=== PATIENT | male | born 1940 | race American Indian/Alaskan Native ===

== ENCOUNTER → 2020-07-15 15:24 | Outpatient (CLI) | payer MEDICARE, OTHER, SELFPAY | PROVIDERS: Referring Provider Otolaryngology Otolaryngology/Facial Plastic Surgery; Visit Provider Otolaryngology Otolaryngology/Facial Plastic Surgery | DX: H92.10 Otorrhea, unspecified ear (principal) | CPT/HCPCS: 87070; 87075; 87077; 87186; 87205 ==

== ENCOUNTER 2021-03-18 15:56 | Inpatient (IN) | payer MEDICARE, OTHER, SELFPAY ==
[2021-03-18 15:57] VITALS: BP 197/94; PULSE 72; RESP 18; TEMP 35.5; O2SAT 97; BMI 34.9
--- NOTE | 2021-03-18 16:13 | EKG12_ITS ---
Test Reason : Blood Pressure : / mmHG Vent. Rate : 073 BPM Atrial Rate : 073 BPM P-R Int : 236 ms QRS Dur : 080 ms QT Int : 404 ms P-R-T Axes : 033 001 031 degrees QTc Int : 445 ms Sinus rhythm with 1st degree A-V block Inferior infarct , age undetermined Abnormal ECG Confirmed by CHRISTAL MATHEWS, BETTY ([id number]), photo editor YANELIS MELTON ([id number]) on 03/21/2021 8:03:58 AM Referred By: AMY Confirmed By:WINSTON SIEGEL MD
[2021-03-18] MEDS: Aspirin 81 MG TAB.CHEW 324 MG PO (16:27)
--- NOTE | 2021-03-18 16:34 | ED.DCSUM_ITS ---
History of Present Illness Chief Complaint: Chest Pain Informant: Patient Onset: Days Activity at onset: Light Activity Timing: Intermittent Quality: Heaviness, Tightness Location: Substernal Current Severity: Gone Maximum Severity: 7/10 Worsened By: Exertion Relieved By: Rest Associated Symptoms: Dyspnea. Negative for: Nausea, Vomiting, Diaphoresis, Cough, Fever, Lightheadedness, Acid Reflux, Palpitations Narrative: Since an 81-year-old male who states he went on a walk this past Wednesday. After walking 50 feet he developed substernal chest discomfort with dyspnea. The discomfort resolved after resting for 5 minutes. On Wednesday he went on a walk. Able to walk farther however he developed chest tightness with dyspnea and resolved after 5 minutes. He denied nausea, vomiting or diaphoresis. He denied radiation. His risk factors are prediabetes , benign essential hypertension. He his physician yesterday who ordered an EKG, troponin and high-sensitivity CRP. The troponin was normal. The high-sensitivity CRP was positive, 7. Past surgical history remarkable for prostate for BPH, cataract, cholecystectomy and TNA. Patient is presently pain-free. And has not walked since his last episode of chest pain on Wednesday. Prior Similar Symptoms: Yes, With Prior Angina Recent Illness/Hospitalization: Yes - PCP yesterday CVD Risk Factors: Hypertension, Diabetes PE Risk Factors: Negative for: Recent Travel/Surgery, Recenet Immobilization, Prior DVT or PE, Cancer, OCP + Smoking + >/=35 TAD Risk Factors: Hypertension. Negative for: Marfan's Syndrome, Family History - Past Medical History (1) History of hypertension Status: Acute (2) Prediabetes Status: Acute Past Medical History - Allergies and Home Meds Allergies/Adverse Reactions: Allergies No Known Allergies Allergy (Verified 03/18/21 15:59) Primary Care Physician: [facility],Out of [NON-STAFF] - Prior records reviewed: Yes - This notes Surgical History: - - Commended in the HPI Lives: Alone Smoking Status: Former smoker Alcohol: None Drugs: None Review of Systems General: Denies: Chills, Fever, Sweats Eyes: Denies: Visual changes - bilaterally, Diplopia ENT: Denies: Rhinorrhea, Sore throat Cardiovascular: Reports: Chest pain. Denies: Palpitations Respiratory: Reports: Dyspnea, Dyspnea on exertion. Denies: Cough Gastrointestinal: Denies: Abdominal pain, Nausea, Vomiting, Diarrhea, Melena, Hematochezia Genitourinary: Denies: Dysuria, Hematuria, Frequency Musculoskeletal: Denies: Back pain, Extremity Pain Skin: Denies: Rash, Wounds Neurological: Denies: Headache, Weakness, Numbness Endocrine: Denies: Polyuria, Polydipsia Hematologic: Denies: Easy bruising, Easy bleeding Physical Exam Vital Signs/Narrative: Vital Signs Temp Pulse Resp BP Pulse Ox 03/18/21 15:57 95.9 F L 72 18 197/94 H 97 Inital Vital Signs reviewed: Yes General: Well nourished, Well developed, No Acute Distress Head: Normocephalic, Atraumatic Eyes: Perrl, EOMI ENT: Moist mucous membranes, No rhinorrhea Neck: Supple, Nontender Cardiovascular: Regular rate, Regular rhythm, No murmurs, Normal S1, Normal S2 Respiratory: No distress, CTA bilaterally, Chest nontender Abdomen: Soft, Nontender, Nondistended, Normal bowel sounds Back: Nontender, Normal Inspection Extremities: Nontender, No edema Skin: Normal color, No rash, No Trauma. Negative for: Cyanosis, Diaphoresis, Jaundice Neurological: Alert, Oriented x3, Cranial nerves II-XII grossly intact, Normal Strength, Normal Sensation Psychological: Normal affect, Normal Mood Diagnostic/Tx/Re-eval Chest X-Ray - ED: 1 View, Read by ED Physician, Unchanged, Normal, Heart, Lungs, Mediastinum, Bony Structures, No Acute Disease 03/18/21 16:45 Chest 1 View (Portable) [RAD] Stat Impressions Chest X-Ray 03/18/21 16:45 IMPRESSION: Normal x-ray examination of the chest. Electronically Signed: Joseph Lee MD at 17:01 EDT Tel , Service support , 03/18/21 16:45 Chest 1 View (Portable) [RAD] Stat Laboratory Results 03/18/21 03/18/21 16:50 16:50 WBC 9.4 RBC 4.78 Hgb 13.9 Hct 45.5 MCV 95.2 H MCH 29.1 MCHC 30.5 L RDW Std Deviation 46.3 H RDW Coeff of Micheal 13.1 Plt Count 198 MPV 9.9 Immature Gran % (Auto) 0.400 Neut % (Auto) 67.8 Lymph % (Auto) 22.2 [place] % (Auto) 6.8 Eos % (Auto) 2.2 Baso % (Auto) 0.6 Absolute Neuts (auto) 6.4 Absolute Lymphs (auto) 2.09 Nucleated RBC % 0 Sodium 139 Potassium 3.4 L Chloride 104 Carbon Dioxide 27.0 Anion Gap 8 BUN 21 H Creatinine 0.95 Estim Creat Clear Calc 62.97 Est GFR (MDRD) Af Amer 98 Est GFR (MDRD) Non-Af 81 BUN/Creatinine Ratio 22.0 H Glucose 95 Calcium 8.5 Troponin I < 0.015 Blood work is remarkable potassium of 3.4. Troponin is normal. - EKG Initial EKG Interpretation: Sinus Rhythm - Sinus rhythm with a ventricular rate of 73 and a first-degree AV block. [place] interval is 236 ms. QS duration 80 ms. QT duration 404 ms. Computer is reading inferior infarct of undetermined age. There may be a slight Q-wave in 2 and aVF. Treatment: Aspirin, Lovenox SQ, - - 300 mg of Plavix - Medical Decision Making Patient has classic angina per gold criteria. Case discussed with Dr. Tolu Franz on-call for cardiology. Since patient has no risk factors for GI bleed or contraindication to Lovenox and or Plavix both were administered. Plan is to admit and cardiac catheterization. Once labs are back will contact hospitalist. Patient's heart score is 6 Critical care time (excluding procedures): 30-74 minutes - Total time 31 minutes which included obtaining history, physical exam, documentation, discussion with patient's primary care physician, discussion with adjunct instructor in economics and hospitalist for admission. Initiation of treatment for classic angina ED Disposition - Plan for ED Patient: Disposition: Acute Care Hospital [facility] Diagnosis: Unstable angina, History of hypertension, Prediabetes Referrals: [facility] Doctor,Out of [NON-STAFF] -
--- NOTE | 2021-03-18 16:45 | RAD_ITS ---
STUDY: X-RAY CHEST REASON FOR EXAM: Male, 81 years old. chest pain TECHNIQUE: Single AP portable view of the chest. COMPARISON: None. FINDINGS: The lungs are clear and expanded. There is no demonstrated pleural abnormality. Normal size heart. Normal mediastinum and alejandro. Normal visualized pulmonary arteries. Normal visualized aortic arch and descending thoracic aorta. Normal visualized thoracic spine. Normal visualized ribs, clavicles, and shoulders. There is no demonstrated abnormality of the visualized soft tissue structures of the upper abdomen. RAD/Chest 1 View (Portable) IMPRESSION: Normal x-ray examination of the chest. Electronically Signed: Joseph Lee MD at 17:01 EDT Tel , Service support ,
[2021-03-18 17:00] LABS: Absolute Lymphocyte Count 2.09 X10^3/uL (0.83-4.51); Absolute Neutrophil Count 6.4 X10^3/uL (2.0-7.7); Basophil# 0.06 X10^3/uL; Basophil% 0.6 % (0-1); Eosinophil# 0.21 X10^3/uL; Eosinophils% 2.2 % (0-5); Hematocrit 45.5 % (40-54); Hemoglobin 13.9 g/dL (13.0-16.5); Lymphocyte # 2.09 X10^3/ul (0.83-4.51); Lymphocyte % 22.2 % (19-41); Mean Corp Hgb Conc 30.5 g/dL (32-36); Mean Corpuscular Hgb 29.1 pg (27.0-32.0); Mean Corpuscular Volume 95.2 fL (80-94); Mean Platelet Vol. 9.9 fl (6.2-12.0); Monocyte# 0.64 X10^3/uL; Monocyte% 6.8 % (0-10); NRBC Flagged by Analyzer 0 % (0-5); Neutrophil # 6.38 X10^3/uL (2.7-7.7); Neutrophil % 67.8 % (47-70); Platelet Count 198 K/mm3 (150-450); RBC Distribution Width CV 13.1 % (11.6-14.6); RBC Distribution Width SD 46.3 fl (35.1-43.9); Red Blood Count 4.78 M/mm3 (4.6-6.2); White Blood Count 9.4 K/mm3 (4.4-11.0)
[2021-03-18 17:17] LABS: Anion Gap 8 (5-15); BUN 21 mg/dL (7-18); Calcium,Total 8.5 mg/dL (8.5-10.1); Chloride 104 mmol/L (98-107); Creatinine, Serum 0.95 mg/dL (0.70-1.30); EST Glomerular Filtration Rate 81 mL/min (>60); Est Glom Filt Rate - Afr Amer 98 mL/min (>60); Estimated Creatinine Clearance 62.97 ml/min; Glucose 95 mg/dL (74-106); Potassium 3.4 mmol/L (3.5-5.1); Sodium Level 139 mmol/L (136-145)
[2021-03-18] MEDS: Enoxaparin 120 MG/0.8 ML Syringe SC (17:19)
[2021-03-18] MEDS: Clopidogrel Bisulfate 300 MG Tablet PO (17:20)
--- NOTE | 2021-03-18 18:08 | HP.PCM_ITS ---
<Anderson Rausch - Last Filed: 03/18/21 18:08> Problem List (1) Chest pain Status: Acute (2) Celiac disease Status: Chronic (3) Diverticulosis Status: Chronic (4) History of hypertension Status: Chronic (5) Prediabetes Status: Chronic (6) Unstable angina Status: Chronic History of Present Illness Date of Admission: 03/18/21 Chief Complaint: Chest pain in the setting of high sensitivty CRP (7+) Patient is an 81-year-old male who presents to the ED at [facility] on 03/18/2021 with a chief complaint of chest pain. Patient also had labs recently drawn at his primary care office, which revealed a high- sensitivity CRP of 7. Patient was directed by his primary care physician to report to the emergency department immediately for cardiac evaluation. Patient reports that this past Wednesday he began a walking regimen at the request of his primary care physician. Patient states that after he began his walk he developed chest tightness with shortness of breath that resolved after 5 minutes of resting. Patient reports this as his last episode of chest pain, as he has not tried to exert himself much since. Past medical history is significant for unstable angina, hypertension, prediabetes, celiac disease and diverticulosis. Patient was evaluated by his primary care physician yesterday who ordered an EKG, troponins and high sensitivity CRP. Troponin was normal however high- sensitivity CRP was positive at 7. Patient denies any chest pain on admission or any other symptoms to include diaphoresis, palpitations, shortness of breath, orthopnea, paroxysmal nocturnal dyspnea, N/V/D, fever, chills, any recent illnesses or known sick contacts. CBC unremarkable. Chemistry is significant for hypokalemia at 3.4, troponins not elevated. EKG in the ED revealed normal sinus rhythm and a first-degree AV block. Heart score in the ED was 6. Case was discussed with Dr. Franz on-call for cardiology, who agreed to see the patient for cardiac catheterization. Patient was treated in the ED with aspirin, Lovenox and 30 mg of Plavix. Past Medical History Past Medical History (Chronic Problems): Chronic Problems History of hypertension (Chronic) Prediabetes (Chronic) Unstable angina (Chronic) Celiac disease (Chronic) Diverticulosis (Chronic) Allergies No Known Allergies Allergy (Verified 03/18/21 15:59) Home Medications: Ambulatory Orders Medication Instructions Recorded Amlodipine [Norvasc] 5 mg PO DAILY 03/18/21 Aspirin E.C. [Ecotrin] 81 mg PO DAILY@0800 03/18/21 Cholecalciferol (Vitamin D3) 4,000 unit PO DAILY 03/18/21 [Vitamin D3] Hydrochlorothiazide [Hctz] 25 mg PO QODAY 03/18/21 Metoprolol Succinate 25 mg PO DAILY 03/18/21 Valsartan [Diovan] 320 mg PO DAILY 03/18/21 Vit C/E/Zn/Coppr/Lutein/Zeaxan 1 cap PO BID 03/18/21 [Preservision Areds 2 Softgel] Surgical History: no surgical history, - - Commended in the HPI Psychiatric History: No pertinent psych hx Lives: Alone Smoking Status: Former smoker - Has not smoked in 50 years Tobacco Use: Pipe Alcohol: Occasional - Occasional beer and liquor Drugs: None - *Family History Maternal History Items: No pertinent history - Patient is unaware of any maternal medical history Paternal History Items: No pertinent history - Patient is unaware of any paternal medical history Review of Systems Constitutional: Denies: Chills, Fever, Weight Change HEENT: Denies: Head Aches, Sinus Congestion, Sinus Drainage Cardiovascular: Reports: Chest Pain Respiratory: Reports: Shortness of breath upon exertion Gastrointestinal: Denies: Abdominal Pain, Nausea, Vomiting Genitourinary: Denies: Dysuria Musculoskeletal: Denies: Joint Pain, Joint Tenderness Skin: Denies: Rash, Wounds Neurological: Denies: Numbness, Tingling, Focal weakness Psychiatric: Denies: Anxiety, Depression, Homicidal Ideations, Suicidal Ideations Hematologic/ Lymphatic: Denies: Easy Bruising, Easy Bleeding VTE Information - Inpt Only VTE Present on Admission: No Subjective: Patient is an 81-year-old male comfortably resting in bed, alert and oriented x3. Patient denies any active chest pain or shortness of breath. Objective: Clinical Impression(s) from Imaging Studies Chest X-Ray 03/18/21 16:45 IMPRESSION: Normal x-ray examination of the chest. Electronically Signed: Joseph Lee MD at 17:01 EDT Tel , Service support , - Physical Exam Vitals/I&O's: Vital Signs Temp Pulse Resp BP Pulse Ox 95.9 F L 72 18 197/94 H 97 03/18/21 15:57 03/18/21 15:57 03/18/21 15:57 03/18/21 15:57 03/18/21 15:57 Oxygen Delivery Method Room Air Weight: 244 lb Body Mass Index (BMI) 34.9 General: Alert, Oriented x3, Cooperative HEENT: Atraumatic, PERRLA, EOMI, Normocephalic Neck: Supple, No JVD, Negative Carotid Bruits Lungs: Clear to auscultation, Normal air movement Cardiovascular: Regular rate, No murmurs Abdomen: Bowel Sounds Present, Soft, Non Tender Extremities: No edema, Capillary Refill Less than 3 Seconds Skin: No rashes, No breakdown Musculoskeletal: No Tenderness to Palpation of Joints or Extremities Neurological: Cranial nerves II-XII grossly intact Laboratory Results 03/18/21 16:50: WBC 9.4, RBC 4.78, Hgb 13.9, Hct 45.5, MCV 95.2 H, MCH 29.1, MCHC 30.5 L, RDW Std Deviation 46.3 H, RDW Coeff of Micheal 13.1, Plt Count 198, MPV 9.9, Immature Gran % (Auto) 0.400, Neut % (Auto) 67.8, Lymph % (Auto) 22.2, [place] % (Auto) 6.8, Eos % (Auto) 2.2, Baso % (Auto) 0.6, Absolute Neuts (auto) 6.4, Absolute Lymphs (auto) 2.09, Nucleated RBC % 0 03/18/21 16:50: Sodium 139, Potassium 3.4 L, Chloride 104, Carbon Dioxide 27.0, Anion Gap 8, BUN 21 H, Creatinine 0.95, Estim Creat Clear Calc 62.97, Est GFR (MDRD) Af Amer 98, Est GFR (MDRD) Non-Af 81, BUN/Creatinine Ratio 22.0 H, Glucose 95, Calcium 8.5, Troponin I < 0.015 Assessment/Plan All Active Problems Chest pain (Acute) Patient is an 81-year-old male who presents to the ED at [facility] on 03/18/2021 with a chief complaint of chest pain. Patient's chest pain began last weekend when he began a walking regimen at the request of his primary care physician. Patient has subsequently had the chest pain worked up by his primary care physician who found an elevated high-sensitivity CRP at 7. Patient was urged to report to the ED immediately by his primary care physician. Patient currently denies any chest pain, shortness of breath, palpitations, diaphoresis, fever, chills, N/V/D. EKG in the ED revealed normal sinus rhythm at a rate of 73 with a first-degree AV block. CBC unremarkable. Chemistry is significant for hypokalemia at 3.4, troponin not elevated. Heart score in the ED was 6. This case has already been discussed with Dr. Franz who agreed to see the patient in light of his symptoms and elevated high-sensitivity CRP. Patient will be admitted to the PCU for cardiac monitoring and for cardiac catheterization per Dr. Franz. 1) Unspecified chest pain EKG unremarkable as above. Troponins not elevated. High-sensitivity CRP drawn by primary care provider was positive, 7. Plan; admit to PCU, cardiac monitoring, cardiac catheterization on 03/19/2021 per cardiology, lipid profile ordered. Continue home amlodipine, aspirin, metoprolol. 2) Hypokalemia 3.4. Plan; K-Dur 40 mEq p.o. x1, BMP in a.m. 3) Hypertension 197/94, not within goal. Plan; hydralazine as needed. Continue home regimen of hydrochlorothiazide, valsartan and amlodipine. 4) Prediabetes Managing outpatient with primary care provider. Plan; continue outpatient management. 5) Diverticulosis No evidence of acute bleed or GI complaints on admission. Managing outpatient with primary care provider. Plan; continue outpatient management. 6) Celiac disease Gluten-free diet initiated at admission. Managing outpatient with primary care provider. Plan; continue outpatient management. CODE STATUS: DNR CCA, no intubation Patient seen by Anderson Rausch PA-C, under the supervision of Dr. Rosenberg. <Adelia Rosenberg - Last Filed: 03/18/21 18:54> History of Present Illness The patient is a 81 year old M [] Past Medical History Allergies No Known Allergies Allergy (Verified 03/18/21 15:59) - Physical Exam Vitals/I&O's: Vital Signs Temp Pulse Resp BP Pulse Ox 98.2 F 62 10 L 180/78 H 97 03/18/21 18:14 03/18/21 18:14 03/18/21 18:14 03/18/21 18:14 03/18/21 18:14 Oxygen Delivery Method Room Air Weight: 242 lb 8.136 oz Body Mass Index (BMI) 34.7 Laboratory Results 03/18/21 16:50: WBC 9.4, RBC 4.78, Hgb 13.9, Hct 45.5, MCV 95.2 H, MCH 29.1, MCHC 30.5 L, RDW Std Deviation 46.3 H, RDW Coeff of Micheal 13.1, Plt Count 198, MPV 9.9, Immature Gran % (Auto) 0.400, Neut % (Auto) 67.8, Lymph % (Auto) 22.2, [place] % (Auto) 6.8, Eos % (Auto) 2.2, Baso % (Auto) 0.6, Absolute Neuts (auto) 6.4, Absolute Lymphs (auto) 2.09, Nucleated RBC % 0 03/18/21 16:50: Sodium 139, Potassium 3.4 L, Chloride 104, Carbon Dioxide 27.0, Anion Gap 8, BUN 21 H, Creatinine 0.95, Estim Creat Clear Calc 62.97, Est GFR (MDRD) Af Amer 98, Est GFR (MDRD) Non-Af 81, BUN/Creatinine Ratio 22.0 H, Glucose 95, Calcium 8.5, Troponin I < 0.015 Assessment/Plan Patient seen by Anderson Rausch PA-C under my supervision Patient is an 81-year-old male who was admitted via the ED with a complaint of chest pain. Chest pain was exertional and started on the weekend prior to admission when he started a walking regimen per his PCPs request in order to try to lose weight. Chest pain got better with rest. He saw his PCP and he had labs done. Troponins were negative but high-sensitivity C-reactive protein was elevated. He was therefore advised to come into the ED. At time of review, he had no symptoms and had no chest pain. EKG showed normal sinus rhythm with first-degree AV block. Chemistry was significant for potassium of 3.4 and troponin was within normal limits. His analysis lead was contacted by ED and plan is to have cardiac cath tomorrow. O/E: Vital Signs Temp Pulse Resp BP Pulse Ox 98.2 F 62 10 L 180/78 H 97 03/18/21 18:14 03/18/21 18:14 03/18/21 18:14 03/18/21 18:14 03/18/21 18:14 General: Alert, Oriented x3, Cooperative HEENT: Atraumatic, PERRLA, EOMI, Normocephalic Neck: Supple, No JVD, Negative Carotid Bruits Lungs: Clear to auscultation, Normal air movement Cardiovascular: Regular rate, No murmurs, normal S1 and S2 Abdomen: Bowel Sounds Present, Soft, Non Tender Extremities: No edema, Capillary Refill Less than 3 Seconds Skin: No rashes, No breakdown Musculoskeletal: No Tenderness to Palpation of Joints or Extremities Neurological: Cranial nerves II-XII grossly intact, omayra 5/5 in all extremities Plan is to admit to be managed for angina. Consult cardiology. Keep n.p.o. past midnight. Patient received aspirin and Plavix in the ED. For cardiac cath tomorrow. Calcium was also low at 3.4. Will replace. Rest as per Anderson Rausch PA-C's notes which I reviewed and endorsed. CODE STATUS: Full code * Patient counseled extensively about different types of CODE STATUS including full code, DNR CCA and DNR CCA. Patient stated that he had a DO NOT RESUSCITATE order. I tried to clarify what type of DO NOT RESUSCITATE it was. Patient stated he did not know there were different types of DO NOT RESUSCITATE. I therefore explained to patient the difference between DNR CC and DNR CCA. Patient elects to be full code. Total ewps-or-[id number] time 16 minutes. Rest as per Anderson Rausch PA-C's note, which I have reviewed and endorsed. OBSV E&M: 89939 Initial observation care L2 Procedures: 91722 Advncd Care Plan 30 Min
[2021-03-18 18:14] VITALS: BP 180/78; PULSE 62; RESP 10; TEMP 36.8; O2SAT 97
[2021-03-18 18:43] VITALS: BMI 34.7
[2021-03-18 18:48] VITALS: BMI 34.8
--- NOTE | 2021-03-18 18:58 | EKG12_ITS ---
Test Reason : POST PCI Blood Pressure : / mmHG Vent. Rate : 067 BPM Atrial Rate : 067 BPM P-R Int : 248 ms QRS Dur : 068 ms QT Int : 424 ms P-R-T Axes : 053 014 029 degrees QTc Int : 448 ms Sinus rhythm with 1st degree A-V block with occasional Premature ventricular complexes Otherwise normal ECG When compared with ECG of 19-MAR-2021 05:29, MANUAL COMPARISON REQUIRED, DATA IS UNCONFIRMED Confirmed by CHRISTAL MATHEWS, BETTY ([id number]), photography editor YANELIS MELTON ([id number]) on 03/21/2021 8:28:27 AM Referred By: BRENT Confirmed By:WINSTON SIEGEL MD
[2021-03-18 19:00] VITALS: BP 191/81; PULSE 68; RESP 18; TEMP 36.8; O2SAT 99
[2021-03-18 19:02] VITALS: O2SAT 98
[2021-03-18 19:38] VITALS: PULSE 69
--- NOTE | 2021-03-18 21:08 | ECHOD_ITS ---
Reason For Study: Chest pain Procedure This was a 2D Doppler, Color Flow transthoracic echocardiogram. The study was technically difficult. Contrast injection was performed. Exam performed portable in patient room. Left Ventricle Normal LV size. Moderate concentric left ventricular hypertrophy. Left ventricular systolic function is normal. The estimated ejection fraction is 65 %. No evidence for diastolic dysfunction. No regional wall motion abnormalities noted. Right Ventricle Normal RV size. Normal systolic function. Atria The left atrium is mildly enlarged. The right atrium is mildly enlarged. No doppler evidence for ASD. Mitral Valve There is no mitral annular calcification. Normal mitral valve. Mild (1+) mitral valve insufficiency. Tricuspid Valve Normal tricuspid valve. Trivial tricuspid valve insufficiency. Unable to estimate RV systolic pressure/pulmonary artery pressure due to technically difficult study. Aortic Valve Trisinus/trileaflet aortic valve. Mild focal aortic valve calcification. Pulmonic Valve The pulmonic valve is not well visualized. Great Vessels Normal sized aortic root. Pericardium/Pleural No pericardial effusion. Epicardial fat. Medication Diluted definity 5ml given slow IV push to enhance endocardial definition. MMode/2D Measurements & Calculations LVIDd: 3.8 cm IVSd: 1.4 cm Ao root diam: 3.5 cm LVIDs: 1.8 cm LVPWd: 1.4 cm FS: 53.5 % LAV(MOD-bp): 56.9 ml LA A4 area: 19.1 cm2 LA dimension(2D): 4.4 cm LAV(MOD-bp) Indexed: 25.1 ml/m2 LAV(MOD-sp2): 59.3 ml LAV(MOD-sp4): 51.4 ml RA A4 area: 22.2 cm2 Doppler Measurements & Calculations MV E max zhou: 47.4 cm/sec Lat Peak E' Zhou: 6.6 cm/sec Med Peak E' Zhou: 6.9 cm/sec MV A max zhou: 87.0 cm/sec E/E' lat: 7.2 E/E' med: 6.9 MV E/A: 0.55 Ao V2 max: 118.2 cm/sec LV V1 max: 93.6 cm/sec Ao max P.6 mmHg LV V1 max P.5 mmHg ECHO/Echo Complete W/ Contrast Interpretation Summary The study was technically difficult. Contrast injection was performed. Left ventricular systolic function is normal. The estimated ejection fraction is 65 %. Moderate concentric left ventricular hypertrophy. The left atrium is mildly enlarged. The right atrium is mildly enlarged. Mild (1+) mitral valve insufficiency. Trivial tricuspid valve insufficiency. Mild focal aortic valve calcification. Epicardial fat. Unable to estimate RV systolic pressure/pulmonary artery pressure due to techni talon difficult study. No evidence for diastolic dysfunction. Ordering Physician: Tolu Franz Performed By: Edward Sim RCS
--- NOTE | 2021-03-18 21:10 | CON.PCM_ITS ---
Problem List (1) Unstable angina Status: Chronic (2) History of hypertension Status: Chronic (3) Prediabetes Status: Chronic Reason for Consult Date of Consultation: 03/18/21 History of Present Illness: The patient is a 81 year oldfel-fwgw-hfw white male who presents for evaluation of unstable angina superimposed upon hypertension and prediabetes . The patient follows with his primary care physician in the [place], [place] area. He states he has been in contact with him with respect to concerns of exertional chest discomfort which includes a centralized chest tightness when he is out casually walking. He states he will have to stop and rest to have his discomfort relieved. He will start walking again and his discomfort will return. He states this has been progressing recently and becoming more prominent. He can also feel somewhat short of breath and dyspneic with this. He has not had ongoing orthopnea or PND or peripheral pitting edema. There is been no near syncope or syncope. He states he had a follow-up visit with his physician yesterday. He notes an ECG was obtained. He does not believe there were any acute changes. However he received a call from his physician's office today instructing him to report to the emergency department for further evaluation and care including consideration for diagnostic cardiac catheterization. He states he has never undergone cardiovascular studies in the past with the exception of a remote exercise tolerance test which was considered negative. [] Past Medical History Allergies/Adverse Reactions: Allergies gluten Adverse Reaction (Verified 03/18/21 19:07) upset stomach/diarrhea lactose Adverse Reaction (Verified 03/18/21 19:07) upset stomach/diarrhea Home Medications: Ambulatory Orders Medication Instructions Recorded Amlodipine [Norvasc] 5 mg PO DAILY 03/18/21 Aspirin E.C. [Ecotrin] 81 mg PO DAILY@0800 03/18/21 Cholecalciferol (Vitamin D3) 4,000 unit PO DAILY 03/18/21 [Vitamin D3] Hydrochlorothiazide [Hctz] 25 mg PO QODAY 03/18/21 Metoprolol Succinate 25 mg PO DAILY 03/18/21 Valsartan [Diovan] 320 mg PO DAILY 03/18/21 Vit C/E/Zn/Coppr/Lutein/Zeaxan 1 cap PO BID 03/18/21 [Preservision Areds 2 Softgel] Past Medical History (Chronic Problems): Chronic Problems History of hypertension (Chronic) Prediabetes (Chronic) Unstable angina (Chronic) Celiac disease (Chronic) Diverticulosis (Chronic) Surgical History: no surgical history, - - Commended in the HPI Psychiatric History: No pertinent psych hx - *Family History Maternal History Items: No pertinent history - Patient is unaware of any maternal medical history Paternal History Items: No pertinent history - Patient is unaware of any paternal medical history Lives: Alone Smoking Status: Former smoker Tobacco Use: Pipe Alcohol: Occasional - Occasional beer and liquor Drugs: None Review of Systems - Review of Systems General: Denies: Fever, Night Sweats, Fatigue Cardiovascular: Reports: Chest Discomfort, Chest Discomfort with Exertion, Shortness of Breath, Shortness of Breath at Rest. Denies: Orthopnea, PND, Peripheral Edema, Palpitations, Lightheadedness, Dizziness, Near Syncope, Syncope Respiratory: Reports: Shortness of Breath. Denies: Cough, Sputum Production, Hemoptysis Gastrointestinal: Denies: Hematemesis, Hematochezia, Melena Genitourinary: Denies: Dysuria, Hematuria Skin: Denies: Rash Subjectve: This is a pleasant 81-year-old white male who appears to be resting reasonably comfortably at the moment in no acute distress. Objective: Vital Signs Temp Pulse Resp BP Pulse Ox 98.3 F 69 18 191/81 H 98 03/18/21 19:00 03/18/21 19:38 03/18/21 19:00 03/18/21 19:00 03/18/21 19:02 Oxygen Delivery Method Room Air Weight: 242 lb 8.136 oz Body Mass Index (BMI) 34.7 General: Awake, Alert, Oriented x 3, Cooperative, No Acute Distress HEENT: Atraumatic, Normocephalic, PERRL, EOMI, Sclera Non Icteric Neck: Supple, Good ROM, No JVD Lungs: Clear to auscultation Cardiovascular: Regular Rhythm, Normal S1, Normal S2 Vascular: No Carotid Bruits, Normal Femoral Pulses, Normal Radial Pulses Abdomen: Bowel Sounds Present, Soft, Non Tender Extremities: No edema Neurological: No Focal Motor or Sensory Deficit Psych/Mental Status: Appropriate 03/18/21 16:50: WBC 9.4, RBC 4.78, Hgb 13.9, Hct 45.5, MCV 95.2 H, MCH 29.1, MCHC 30.5 L, Plt Count 198, MPV 9.9, Immature Gran % (Auto) 0.400, Neut % (Auto) 67.8, Lymph % (Auto) 22.2, Morehouse % (Auto) 6.8, Eos % (Auto) 2.2, Baso % (Auto) 0.6, Absolute Neuts (auto) 6.4, Nucleated RBC % 0 03/18/21 16:50: Sodium 139, Potassium 3.4 L, Chloride 104, Carbon Dioxide 27.0, Anion Gap 8, BUN 21 H, Creatinine 0.95, Est GFR (MDRD) Af Amer 98, Est GFR (MDRD) Non-Af 81, BUN/Creatinine Ratio 22.0 H, Glucose 95, Calcium 8.5, Troponin I < 0.015 03/18/21 19:23: Troponin I < 0.015 Rhythm: Sinus rhythm EKG: Sinus rhythm; poor R wave progression; in for MO of indeterminate age cannot be excluded CXR: IMPRESSION: Normal x-ray examination of the chest. Electronically Signed: Joseph Lee MD at 17:01 EDT Assessment/Plan 1. Unstable angina The patient presents with symptoms concerning for accelerating/unstable angina. At the moment he appears to be resting comfortably. His initial cardiac enzyme is negative. His initial ECG demonstrates no acute ECG changes. At the present time he will continue medical management as deemed appropriate. Based upon his symptoms which appear to be accelerating with very minimal activity such as casual walking he will be referred for further evaluation with diagnostic cardiac catheterization. The procedure and risks were discussed with him. He was agreeable to this approach. 2. Hypertension His blood pressure will be followed and his medications can be adjusted as needed. 3. Prediabetes He will continue evaluation care per internal medicine. This note was generated using a voice recognition system and there may be incorrect words, spelling or punctuation that were not noted when reviewing the office note prior to saving. Procedure Criteria Procedure Type: Elective COVID Risk Discussion: The surgeon/proceduralist and patient have discussed in detail the risk of exposure to and/or potential harm posed by the COVID-19 virus with having a surgery/procedure at this time versus the risk of delaying the surgery/procedure. It is not possible to know either the risk of delaying the surgery or procedure or chance of getting an infection with perfect accuracy, but a joint decision was made between the patient and the surgeon/proceduralist to proceed at this time with the scheduled surgery/procedure as indicated on the consent form.
[2021-03-18 22:36] VITALS: BP 125/77; PULSE 66; RESP 17; TEMP 36.6; O2SAT 96
[2021-03-18] MEDS: Multivitamin (Healthy Eyes) Capsule 1 CAP PO (22:39)
[2021-03-18] MEDS: Potassium Chloride Oral Tablet 20 MEQ 40 MEQ PO (22:39)
[2021-03-18] MEDS: 0.9% Saline Lock 10 ML Syringe IV (23:00)
[2021-03-18] MEDS: DiphenhydrAMINE 50 MG/ML Syringe 25 MG IV (23:00)
[2021-03-19] VITALS (14 sets, daily range): BP systolic 143–184; BP diastolic 65–128; PULSE 63–74; RESP 14–22; TEMP 36.4–36.7; O2SAT 96–98
--- NOTE | 2021-03-19 05:38 | NURSING ---
Pt stated he became itchy after CHG wipe down for heart cath prep on 03/18/21. This RN notified Indy Escamilla at 2210 on 03/18/21. Pt was ordered a 1 time dose of IV Benadryl. RN gave benadryl. This am pt refused second CHG wipe down due to previous itching. quality assurance qa lab technician to be notified in report.
--- NOTE | 2021-03-19 05:55 | EKG12_ITS ---
Test Reason : AM EKG Blood Pressure : / mmHG Vent. Rate : 066 BPM Atrial Rate : 066 BPM P-R Int : 244 ms QRS Dur : 082 ms QT Int : 428 ms P-R-T Axes : 051 014 049 degrees QTc Int : 448 ms Sinus rhythm with 1st degree A-V block Otherwise normal ECG When compared with ECG of 18-MAR-2021 19:01, MANUAL COMPARISON REQUIRED, DATA IS UNCONFIRMED Confirmed by CHRISTAL MATHEWS, BETTY ([id number]), offline editor YANELIS MELTON ([id number]) on 03/21/2021 8:28:39 AM Referred By: BRENT Confirmed By:WINSTON SIEGEL MD
[2021-03-19] MEDS: Clopidogrel Bisulfate 75 MG Tablet PO (06:11)
[2021-03-19] MEDS: Aspirin E.C. 81 MG Tablet PO (06:11)
[2021-03-19] MEDS: Metoprolol(XL)Succ 25 MG Tablet PO (06:11)
[2021-03-19] MEDS: amLODIPine 5 MG Tablet PO (06:12)
[2021-03-19 07:45] LABS: Hematocrit 44.9 % (40-54); Hemoglobin 14.3 g/dL (13.0-16.5); Mean Corp Hgb Conc 31.8 g/dL (32-36); Mean Corpuscular Hgb 29.1 pg (27.0-32.0); Mean Corpuscular Volume 91.3 fL (80-94); Mean Platelet Vol. 10.2 fl (6.2-12.0); Platelet Count 237 K/mm3 (150-450); RBC Distribution Width CV 12.9 % (11.6-14.6); RBC Distribution Width SD 43.3 fl (35.1-43.9); Red Blood Count 4.92 M/mm3 (4.6-6.2); White Blood Count 7.6 K/mm3 (4.4-11.0)
[2021-03-19 08:25] LABS: International Normalized Ratio 1.2; Prothrombin Time (Protime)PT. 14.2 SECONDS (11.7-14.9)
[2021-03-19 08:27] LABS: AST(SGOT) 14 U/L (15-37); Alanine Aminotransfer ALT/SGPT 23 U/L (16-61); Albumin, Serum 3.5 g/dL (3.2-5.0); Alkaline Phosphatase 71 U/L (45-117); Anion Gap 6 (5-15); BUN 16 mg/dL (7-18); Calcium,Total 8.7 mg/dL (8.5-10.1); Chloride 106 mmol/L (98-107); Cholesterol 160 mg/dL (200); Creatinine, Serum 0.89 mg/dL (0.70-1.30); EST Glomerular Filtration Rate 87 mL/min (>60); Est Glom Filt Rate - Afr Amer 105 mL/min (>60); Estimated Creatinine Clearance 67.21 ml/min; Globulin 3.5 g/dL (2.2-4.2); Glucose 108 mg/dL (74-106); High Density Lipoprotein 36 mg/dL; Potassium 3.7 mmol/L (3.5-5.1); Sodium Level 139 mmol/L (136-145); Thyroid Stim Hormone (TSH) 1.14 uIU/mL (0.358-3.74); Triglycerides 126 mg/dL; Very Low Density Lipoprotein 25 mg/dL (5-40)
--- NOTE | 2021-03-19 08:45 | NURSING ---
Report called to Isauro in field laboratory operator at this time
--- NOTE | 2021-03-19 13:15 | EKG12_ITS ---
Test Reason : CP ADMISSION Blood Pressure : / mmHG Vent. Rate : 066 BPM Atrial Rate : 066 BPM P-R Int : 230 ms QRS Dur : 086 ms QT Int : 432 ms P-R-T Axes : 039 012 044 degrees QTc Int : 452 ms Sinus rhythm with 1st degree A-V block Otherwise normal ECG When compared with ECG of 18-MAR-2021 16:15, MANUAL COMPARISON REQUIRED, DATA IS UNCONFIRMED Confirmed by CHRISTAL MATHEWS, BETTY ([id number]), managing editor YANELIS MELTON ([id number]) on 03/21/2021 8:30:55 AM Referred By: BRENT Confirmed By:WINSTON SIEGEL MD
[2021-03-19] MEDS: hydroCHLOROthiazide 25 MG Tablet PO (13:29)
[2021-03-19] MEDS: 0.9% Normal Saline 1,000 ML 100 ML IV (13:29)
[2021-03-19] MEDS: Multivitamin (Healthy Eyes) Capsule 1 CAP PO ×2 (13:30→21:08)
[2021-03-19] MEDS: Cholecalciferol (VIT D3) 25 MCG TABLET (1,000 UNITS) 100 MCG PO (13:30)
--- NOTE | 2021-03-19 13:59 | CRPHASE1_ITS ---
Patient Communication PHII Cardiac Rehab Discussed with Patient:: Yes Guide to Cardiac Rehab Given to Patient:: Yes Cardiac Rehab Facility Choice List Given to Patient:: Yes Choice Program [facility] PHII:: Communication Given to CR Assistant Broker:: Macario Al Refer Phase II Cardiac Rehab:: Yes Sessions:: 36 sessions - 3 days/wk, 12 weeks Cardiac Rehabilitation Info Cardiac Rehabilitation Program Information: Cardiac Rehabilitation is important for patients like you who are recovering from a heart problem. Cardiac rehabilitation programs are recognized as integral to the continued care of the patient with coronary heart disease. The cardiac rehabilitation program is designed to optimize a patient's physical, psychological, and social functioning. Health respiratory care assistant work in cardiac rehabilitation programs and assist you with getting the treatments you need to get stronger and healthier - like exercise, healthy eating habits, and med ications. Cardiac rehabilitation has been show to help people with heart problems live longer and have better life enjoyment than people who do not go to cardiac rehabilitation. Please contact the Cardiac Rehabilitation Program at [facility] at in two weeks if you have not heard from them.
--- NOTE | 2021-03-19 14:00 | CRPH1.INSTRU ---
General Education CAD and cardiac anatomy and function:: Patient communicates acknowledgment, Family communicates acknowledgment, Needs reinforcement Explanation of diagnoses and procedures:: Patient communicates acknowledgment, Family communicates acknowledgment, Needs reinforcement Sign/Symptoms of [place]:: Patient communicates acknowledgment, Family communicates acknowledgment, Needs reinforcement Antiplatelet therapy: Patient communicates acknowledgment, Family communicates acknowledgment, Needs reinforcement Proper use of NTG-SL: Patient communicates acknowledgment, Family communicates acknowledgment, Needs reinforcement Emergency procedures and activation of EMS: Patient communicates acknowledgment, Family communicates acknowledgment, Needs reinforcement Compliance of all prescribed medications: Patient communicates acknowledgment, Family communicates acknowledgment, Needs reinforcement Smoking Patient Nicotine/Smoking Risk Factors Are:: Non-smoker Recommendations Include:: Previous smoker; encourage continued cessation Nicotine/Smoking Response Code:: Patient communicates acknowledgment, Family communicates acknowledgment, Needs reinforcement Dyslipidemia Patient Dyslipidemia Risk Factors Are:: HDL, LDL Recommendations Include:: Lipid profile provided, Reviewed NCEP/ATP guidelines, Therapeutic Lifestyle Change dietary guidelines Dyslipidemia Response Code:: Patient communicates acknowledgment, Family communicates acknowledgment, Needs reinforcement Overweight/Obesity Patient Overweight/Obesity Risk Factors Are:: Obesity - > or = 30 Recommendations Include:: Weight loss of 5-10%, Reduced calorie diet, Exercise 5-7 times/week Overweight/Obesity:: Patient communicates acknowledgment, Family communicates acknowledgment, Needs reinforcement Hypertension Recommendations Include:: Maintain BP <130/85, DASH dietary guidelines, Decrease/maintain normal body weight, Moderation of ETOH Hypertension:: Patient communicates acknowledgment, Family communicates acknowledgment, Needs reinforcement Heart Disease Patient Heart Disease Risk Factors Are:: Family history of heart disease < 65 years old Recommendations Include:: Educated family members of their risk, Educated family members of importance of prevention of heart disease Heart Disease Response Code:: Patient communicates acknowledgment, Family communicates acknowledgment, Needs reinforcement Metabolic Syndrome Patient Metabolic Syndrome Risk Factors Are [3 of 5]:: Fasting blood sugar > 100 mg/dL, Waist circumference > 35 [female] or 40 [male], High triglyceride >150, Hypertension, Low HDL <40 [male] or < 50 [female] Recommendations Include:: Does not meet criteria, Reinforce compliance to risk factor modifications, Patient is diabetic, Encouraged follow-up with Primary Care Physician Metabolic Syndrome Response Code:: Patient communicates acknowledgment, Family communicates acknowledgment, Needs reinforcement Sedentary Patient Sedentary Risk Factors Are:: Lack of regular exercise Recommendations Include:: Aerobic exercise 5-7 times/week for 20-30 minutes continuously, Benefits of regular exercise, Discussed home walking program, Monitored Outpatient Cardiac Rehab Sedentary Response Code:: Patient communicates acknowledgment, Family communicates acknowledgment, Needs reinforcement Stress Patient Stress Risk Factors Are:: Patient denies stress as a risk factor Recommendations Include:: Identification of stressors, and assessment of coping skills, Stress management techniques Stress Response Code:: Patient communicates acknowledgment, Family communicates acknowledgment, Needs reinforcement
--- NOTE | 2021-03-19 15:12 | PCM.PN.HOSP ---
Patient Problems: Active and Suspected Problems Chest pain (Acute) Subjective: Patient is an 81-year-old male comfortably resting in bed recovering from cardiac catheterization performed earlier the this morning, alert and oriented x3. Patient has no complaints related to surgery, denies chest pain, shortness of breath, palpitations, fever, chills, N/V/D. Objective: Clinical Impression(s) from Imaging Studies Chest X-Ray 03/18/21 16:45 IMPRESSION: Normal x-ray examination of the chest. Electronically Signed: Joseph Lee MD at 17:01 EDT Tel , Service support , Echocardiogram 03/18/21 21:08 Interpretation Summary The study was technically difficult. Contrast injection was performed. Left ventricular systolic function is normal. The estimated ejection fraction is 65 %. Moderate concentric left ventricular hypertrophy. The left atrium is mildly enlarged. The right atrium is mildly enlarged. Mild (1+) mitral valve insufficiency. Trivial tricuspid valve insufficiency. Mild focal aortic valve calcification. Epicardial fat. Unable to estimate RV systolic pressure/pulmonary artery pressure due to technically difficult study. No evidence for diastolic dysfunction. Ordering Physician: Tolu Franz Performed By: Edward Sim RCS Vitals/I&O's: Vital Signs Temp Pulse Resp BP Pulse Ox 97.6 F L 68 16 143/128 H 97 03/19/21 14:00 03/19/21 14:00 03/19/21 14:00 03/19/21 14:00 03/19/21 14:00 Oxygen Delivery Method Room Air Weight: 242 lb 8.136 oz Body Mass Index (BMI) 34.7 Intake and Output for Last 24 Hours 03/17/21 03/18/21 03/19/21 23:59 23:59 23:59 Intake Total 480 / 480 110 / 110 Balance 480 / 480 110 / 110 General: Alert, Oriented x3, Cooperative HEENT: Atraumatic, PERRLA, EOMI, Normocephalic Neck: Supple, No JVD, Negative Carotid Bruits Lungs: Clear to auscultation, Normal air movement Cardiovascular: Regular rate, No murmurs Abdomen: Bowel Sounds Present, Soft, Non Tender Extremities: No edema, Capillary Refill Less than 3 Seconds Skin: No rashes, No breakdown Musculoskeletal: No Tenderness to Palpation of Joints or Extremities Neurological: Cranial nerves II-XII grossly intact Psych/Mental Status: Normal Affect, Appropriate Laboratory Results 03/18/21 16:50: WBC 9.4, RBC 4.78, Hgb 13.9, Hct 45.5, MCV 95.2 H, MCH 29.1, MCHC 30.5 L, RDW Std Deviation 46.3 H, RDW Coeff of Micheal 13.1, Plt Count 198, MPV 9.9, Immature Gran % (Auto) 0.400, Neut % (Auto) 67.8, Lymph % (Auto) 22.2, Stanley % (Auto) 6.8, Eos % (Auto) 2.2, Baso % (Auto) 0.6, Absolute Neuts (auto) 6.4, Absolute Lymphs (auto) 2.09, Nucleated RBC % 0 03/18/21 16:50: Sodium 139, Potassium 3.4 L, Chloride 104, Carbon Dioxide 27.0, Anion Gap 8, BUN 21 H, Creatinine 0.95, Estim Creat Clear Calc 62.97, Est GFR (MDRD) Af Amer 98, Est GFR (MDRD) Non-Af 81, BUN/Creatinine Ratio 22.0 H, Glucose 95, Calcium 8.5, Troponin I < 0.015 03/18/21 19:23: Troponin I < 0.015 03/18/21 22:20: Troponin I < 0.015 03/19/21 07:20: WBC 7.6, RBC 4.92, Hgb 14.3, Hct 44.9, MCV 91.3, MCH 29.1, MCHC 31.8 L, RDW Std Deviation 43.3, RDW Coeff of Micheal 12.9, Plt Count 237, MPV 10.2 03/19/21 07:20: Sodium 139, Potassium 3.7, Chloride 106, Carbon Dioxide 27.0, Anion Gap 6, BUN 16, Creatinine 0.89, Estim Creat Clear Calc 67.21, Est GFR (MDRD) Af Amer 105, Est GFR (MDRD) Non-Af 87, BUN/Creatinine Ratio 18.0, Glucose 108 H, Calcium 8.7, Total Bilirubin 0.90, AST 14 L, ALT 23, Alkaline Phosphatase 71, Total Protein 7.0, Albumin 3.5, Globulin 3.5, Albumin/Globulin Ratio 1.0, Triglycerides 126, Cholesterol 160, LDL Cholesterol 99, VLDL Cholesterol 25, HDL Cholesterol 36 L, TSH 1.14 03/19/21 07:20: PT 14.2, INR 1.2 Current Medications Amlodipine Besylate (Amlodipine 5 Mg Tablet) 5 mg PO DAILY [facility] Last Admin: 03/19/21 06:12 Dose: 5 mg Documented by: Aspirin (Aspirin E.C. 81 Mg Tablet) 81 mg PO DAILY@0800 [facility] Last Admin: 03/19/21 06:11 Dose: 81 mg Documented by: Atropine Sulfate (Atropine Sulfate 1 Mg/10 Ml Syringe) 0.5 mg IV UD PRN PRN Reason: HR <50 bpm Cholecalciferol (Cholecalciferol (Vit D3) 25 Mcg Tablet (1,000 Units)) 100 mcg PO DAILY [facility] Last Admin: 03/19/21 13:30 Dose: 100 mcg Documented by: Clopidogrel Bisulfate (Clopidogrel Bisulfate 75 Mg Tablet) 75 mg PO DAILY [facility] Last Admin: 03/19/21 06:11 Dose: 75 mg Documented by: Enoxaparin Sodium (Enoxaparin 120 Mg/0.8 Ml Syringe) 110 mg SC Q12 [facility] Last Admin: 03/19/21 08:30 Dose: Not Given Documented by: Heparin Sodium (Beef Lung) (Heparin Lock 500 Unit/5 Ml In 10 Ml Syringe) 500 unit IV UD PRN PRN Reason: HEPARIN FLUSH Hydralazine HCl (Hydralazine 20 Mg/Ml Vial) 10 mg IV Q4H PRN PRN PRN Reason: SBP > 160 Hydrochlorothiazide (Hydrochlorothiazide 25 Mg Tablet) 25 mg PO QODAY@1000 [facility] Last Admin: 03/19/21 13:29 Dose: 25 mg Documented by: Sodium Chloride () 250 mls @ 15 mls/hr IV .[id number] PRN PRN Reason: Saline Flush Sodium Chloride () 250 mls @ 15 mls/hr IV .[id number] PRN PRN Reason: Additional IVPB Infusion Sodium Chloride () 1,000 mls @ 15 mls/hr IV .Q48H [facility] Last Admin: 03/19/21 12:54 Dose: Not Given Documented by: Sodium Chloride () 1,000 mls @ 100 mls/hr IV .Q10H [facility] Last Admin: 03/19/21 13:29 Dose: 100 mls/hr Documented by: Labetalol HCl (Labetalol (Prefilled) 20 Mg/4 Ml) 5 mg IV X1 PRN PRN Reason: SBP >160 when pulling sheath Stop: 03/21/21 13:11 Metoprolol Succinate (Metoprolol(Xl)Succ 25 Mg Tablet) 25 mg PO DAILY [facility] Last Admin: 03/19/21 06:11 Dose: 25 mg Documented by: Multivitamins/Minerals (Multivitamin (Healthy Eyes) Capsule) 1 capsule PO BID [facility] Last Admin: 03/19/21 13:30 Dose: 1 capsule Documented by: Sodium Chloride (0.9% Saline Lock 10 Ml Syringe) 10 - 40 ml IV UD PRN PRN Reason: SALINE FLUSH Last Admin: 03/18/21 23:00 Dose: 10 ml Documented by: Sodium Chloride (0.9% Normal Saline 500 Ml Iv.Soln.) 500 ml IV BOLUS PRN PRN Reason: VASO-VAGAL PROTOCOL STROKE Vital Signs/Narrative: Vital Signs Temp Pulse Resp BP Pulse Ox 03/19/21 14:00 97.6 F L 67 17 143/128 H 98 03/19/21 13:40 97.6 F L 68 16 163/86 H 97 03/19/21 13:30 98.1 F 68 14 161/71 H 97 03/19/21 13:15 69 17 161/79 H 97 Medical Necessity - Tobacco Use Smoking Status: Former smoker Tobacco Use: Pipe Assessment/Plan All Active Problems Chest pain (Acute) Patient is an 81-year-old male who was admitted to the ED on 03/18/2021 with a chief complaint of chest pain in the setting of a positive high-sensitivity CRP at 7. Patient was admitted for unspecified chest pain and it was decided after consult with cardiology that patient would receive cardiac catheterization on 03/19/2021. Catheterization performed today resulted in 1 stent being placed in the obtuse marginal artery, an additional stent will also need to be placed at a later date in the LAD. Patient is currently recovering in bed. 1) Unspecified chest pain Catheterization performed today, stenting as above. Additional stent will need be placed in the LAD as above. Plan; remain admitted to PCU, cardiac monitoring, continue Aspirin and Plavix. 2) Hypokalemia Resolved, currently 3.7. Plan; continue to monitor. 3) Hypertension 161/76, not within goal. Plan; hydralazine as needed. Continue home regimen of hydrochlorothiazide, valsartan and amlodipine. 4) Prediabetes Managing outpatient with primary care provider. Plan; continue outpatient management. 5) Diverticulosis No evidence of acute bleed or GI complaints on admission. Managing outpatient with primary care provider. Plan; continue outpatient management. 6) Celiac disease Gluten-free diet initiated at admission. Managing outpatient with primary care provider. Plan; continue outpatient management. DVT prophylaxis -Lovenox SC Patient seen by Anderson Rausch PA-C, under the supervision of Dr. Maravilla.
--- NOTE | 2021-03-19 16:49 | CL.D_ITS ---
Patient Name: RAYA MCNAIR Study Date: 03/19/2021 Performing: Tolu Franz MD Ht: 70 inches 178 cm : 1940 Wt: 242.8 lbs 110 kg Age: 81 Gender: male BSA: 2.27 PROCEDURE(S) PERFORMED [id number]/COR/LV [id number] W OR WO PTCA, SINGLE CORONARY ARTERY CLINICAL PROFILE AND INDICATIONS Indications: Worsening Angina, Suspected CAD Heart Failure: None Stress/Imaging Stress/Image Study Performed: No Angina Classification Anginal Classification w/in 2 Weeks: CCS III CAD Presentations: Unstable angina. CONCLUSIONS Elevated Left Ventricular End Diastolic Pressure Normal LV size, wall motion,and systolic function LVEF: by LV gram 65 % [place] Multivessel CAD RECOMMENDATIONS Risk factor modification Medical therapy Referred for immediate PCI DESCRIPTION OF PROCEDURE The patient arrived to the procedure lab. The risks and benefits of the procedure as well as a full d escription of our services here and current unavailability of surgical backup were fully explained to the patient and/or their significant other prior to the catheterization. The Timeout was completed, verifying the correct patient and procedure. The patient's procedural site was prepped and draped in the usual fashion. Local anesthetic was given subcutaneously to right radial region with Lidocaine 2% . Using a modified Seldinger technique, arterial access was obtained via the right radial artery, a 6 Fr sheath was inserted. Left Coronary Artery selective angiography was performed in multiple views u sing a 5 Fr. 4.0 [place] catheter. Right Coronary Artery selective angiography was then performed in mu ltiple views using a 5 Fr. JR 4 catheter. Left Coronary Artery selective angiography was performed in multiple views using a 5 Fr. JL3.5 catheter. Left Ventriculography was performed in CUEVAS projection using a 5 Fr. Pigtail catheter. LV to AO pullback pressures were then recorded.The arteria l sheath was pulled and a TR Band was applied for hemostasis CORONARY ANGIOGRAPHY DOMINANCE: Right Dominant LEFT HEART ASSESSMENT Left Ventricular Ejection Fraction: by LV Gram 65 % Normal LV wall motion Elevated Left Ventricular End Diastolic Pressure LVEDP: 17 mmHg LEFT MAIN: Angiographically normal LEFT ANTERIOR DESCENDING ARTERY: PROX LAD: eccentric: 75 % Stenosis CIRCUMFLEX ARTERY: OM 2: Proximal - eccentric: hazy: 95 % Stenosis RIGHT CORONARY ARTERY: PROX RCA: Mild luminal irregularities AORTIC ROOT: Angiographically normal COMPLICATIONS No Complications PROCEDURE MEDICATIONS Fentanyl 50 mcg IV Versed 1 mg IV Fentanyl 50 mcg IV Versed 1 mg IV Fentanyl 50 mcg IV Oxygen: 2 L/min via nasal cannula Heparin diluted in 23cc Heparinized saline. Patient given 10cc IA of this solution. 03/19/2021 09:47: 47 Heparin 8000 unit(s) IV 03/19/2021 12:35:20 Verapamil 2.5mg, Ntg 100mcgs, 2000 units of Heparin diluted in 23cc Heparinized saline. Patient give n 10cc IA of this solution. 03/19/2021 09:47:47 IV Bolus: .9 NaCl 300 ml total 03/19/2021 13:02:58 SUMMARY OF HEMODYNAMIC DATA Time AIR REST ECG 09:17:14 ECG 09:18:00 AO 212/69 (104) SA 09:37:42 AO 157/69 (101) 09:48:15 LV 156/-15, 16 10:14:11 LV 155/-14, 17 10:14:18 LV 155/-11, 21 10:15:32 LVp 166/-9, 18 10:15:40 AOp 153/63 (103) 10:15:45 Signed By Tolu Franz MD On 03/19/2021 16:48:44 Tolu Franz MD
[2021-03-19] MEDS: TICAGRELOR 90 MG TABLET 180 MG PO (18:50)
[2021-03-19] MEDS: Atorvastatin Calcium 40 MG Tablet PO (21:08)
[2021-03-20 03:00] VITALS: BP 144/67; PULSE 65; PULSE 68; RESP 17; TEMP 36.8; O2SAT 98
[2021-03-20 06:54] LABS: Absolute Neutrophil Count 6.9 X10^3/uL (2.0-7.7); Basophil# 0.05 X10^3/uL; Basophil% 0.5 % (0-1); Eosinophil# 0.19 X10^3/uL; Hematocrit 41.8 % (40-54); Hemoglobin 13.5 g/dL (13.0-16.5); Lymphocyte % 15.9 % (19-41); Mean Corp Hgb Conc 32.3 g/dL (32-36); Mean Corpuscular Hgb 29.3 pg (27.0-32.0); Mean Corpuscular Volume 90.7 fL (80-94); Monocyte# 0.77 X10^3/uL; Monocyte% 8.2 % (0-10); NRBC Flagged by Analyzer 0 % (0-5); Neutrophil # 6.87 X10^3/uL (2.7-7.7); Platelet Count 224 K/mm3 (150-450); RBC Distribution Width CV 12.8 % (11.6-14.6); RBC Distribution Width SD 42.4 fl (35.1-43.9); Red Blood Count 4.61 M/mm3 (4.6-6.2); White Blood Count 9.4 K/mm3 (4.4-11.0)
[2021-03-20 07:00] VITALS: PULSE 71
[2021-03-20 07:37] LABS: ALB/GLOB Ratio 1.1 RATIO (0.9-2.4); AST(SGOT) 14 U/L (15-37); Alanine Aminotransfer ALT/SGPT 22 U/L (16-61); Albumin, Serum 3.3 g/dL (3.2-5.0); Alkaline Phosphatase 70 U/L (45-117); Anion Gap 6 (5-15); BUN 15 mg/dL (7-18); BUN/Creat Ratio 18.9 RATIO (10-20); Calcium,Total 8.6 mg/dL (8.5-10.1); Chloride 104 mmol/L (98-107); Creatinine, Serum 0.79 mg/dL (0.70-1.30); EST Glomerular Filtration Rate 100 mL/min (>60); Est Glom Filt Rate - Afr Amer 121 mL/min (>60); Estimated Creatinine Clearance 59.82 ml/min; Globulin 3.1 g/dL (2.2-4.2); Glucose 113 mg/dL (74-106); Potassium 3.2 mmol/L (3.5-5.1); Protein, Total 6.4 g/dL (6.4-8.2); Sodium Level 136 mmol/L (136-145)
[2021-03-20 07:42] VITALS: O2SAT 99
[2021-03-20 08:40] VITALS: BP 134/67; PULSE 78; RESP 18; TEMP 36.4; O2SAT 97
[2021-03-20] MEDS: Aspirin E.C. 81 MG Tablet PO (08:50)
[2021-03-20] MEDS: amLODIPine 5 MG Tablet PO (08:50)
[2021-03-20] MEDS: Cholecalciferol (VIT D3) 25 MCG TABLET (1,000 UNITS) 100 MCG PO (08:50)
[2021-03-20] MEDS: TICAGRELOR 90 MG TABLET PO (08:51)
[2021-03-20] MEDS: Isosorbide Mononitrate 30 MG Tablet PO (08:51)
[2021-03-20 08:52] VITALS: BP 134/67; PULSE 78
[2021-03-20] MEDS: Metoprolol(XL)Succ 25 MG Tablet PO (08:52)
[2021-03-20] MEDS: Multivitamin (Healthy Eyes) Capsule 1 CAP PO (08:52)
--- NOTE | 2021-03-20 10:00 | EKG12_ITS ---
Test Reason : AM EKG Blood Pressure : / mmHG Vent. Rate : 073 BPM Atrial Rate : 073 BPM P-R Int : 232 ms QRS Dur : 072 ms QT Int : 422 ms P-R-T Axes : 049 002 042 degrees QTc Int : 464 ms Sinus rhythm with 1st degree A-V block with frequent Premature ventricular complexes Otherwise normal ECG When compared with ECG of 19-MAR-2021 13:40, MANUAL COMPARISON REQUIRED, DATA IS UNCONFIRMED Confirmed by CHRISTAL MATHEWS, BETTY ([id number]), copy editor YANELIS MELTON ([id number]) on 03/21/2021 8:26:21 AM Referred By: JOEY Confirmed By:WINSTON SIEGEL MD
--- NOTE | 2021-03-20 10:46 | PCM.DC ---
- Discharge Diagnoses Current Active Problems: Current Active and Chronic Problems (Last Updated 03/19/21 @ 17:28 by Mery Oswald) History of hypertension (Chronic) Prediabetes (Chronic) Unstable angina (Chronic) Chest pain (Acute) Celiac disease (Chronic) Diverticulosis (Chronic) You will use the following diet at home:: No restrictions Your food should be the consistency of: Regular Your liquids should be the consistency of: Regular/Thin Discharge Activity: Return to Normal Activity Weight Bearing Status: Full weight bearing Allergies/Adverse Reactions: Allergies gluten Adverse Reaction (Verified 03/18/21 19:07) upset stomach/diarrhea lactose Adverse Reaction (Verified 03/18/21 19:07) upset stomach/diarrhea Medications to take at Discharge Amlodipine [Norvasc] 5 mg PO DAILY 03/18/21 Aspirin E.C. [Ecotrin] 81 mg PO DAILY@0800 03/18/21 Cholecalciferol (Vitamin D3) [Vitamin D3] 4,000 unit PO DAILY 03/18/21 Hydrochlorothiazide [Hctz] 25 mg PO QODAY 03/18/21 Metoprolol Succinate 25 mg PO DAILY 03/18/21 Vit C/E/Zn/Coppr/Lutein/Zeaxan [Preservision Areds 2 Softgel] 1 cap PO BID 03/18/21 Atorvastatin Calcium [Lipitor] 40 mg PO QHS #30 tablet 03/20/21 Isosorbide Mononitrate [Imdur] 30 mg PO DAILY #30 tablet 03/20/21 Ticagrelor [Brilinta] 90 mg PO BID #60 tablet 03/20/21 Valsartan [Diovan] 160 mg PO DAILY #1 tablet 03/20/21 The following prescriptions were given: Ticagrelor [Brilinta] 90 mg PO BID #60 tablet Transmission Status: Pending to [facility] Valsartan [Diovan] 160 mg PO DAILY #1 tablet Isosorbide Mononitrate [Imdur] 30 mg PO DAILY #30 tablet Transmission Status: Pending to [facility] Atorvastatin Calcium [Lipitor] 40 mg PO QHS #30 tablet Transmission Status: Pending to [facility] Primary Care Physician: [facility] Doctor,Out of [NON-STAFF] - Test Results: Test results from this visit will be discussed in further detail at your follow-up appointment, if applicable. Please Follow Up With: Tolu Franz MD When: in 3 weeks
[2021-03-20 10:54] VITALS: BP 134/67; PULSE 78; RESP 18; TEMP 36.4; O2SAT 97
--- NOTE | 2021-03-20 11:11 | CASEMGMT ---
Pt to be sent home on Brilinta and med e-scribed to [facility] retail pharmacy. Call to Malaika and she states pt's co-insurance is $213.87 and she was provided with a month free coupon for pt. Pt updated on all, voices understanding. Margie POP CM
--- NOTE | 2021-03-20 11:55 | CASEMGMT ---
KIESHA HIGUERA assessment: Face to Face with patient for initial transition planning/care coordination assessment. KIESHA HIGUERA introduced self and role at [facility], pt voices understanding and consents to assessment. Pt is sitting up in bed in no distress. Pt is A/Ox4 and answers all questions appropriately. Care providers, pharmacy, and demographics verified/updated. Presentation: Pt w/ intermittent CP pt states recently started walking and this is when cp starts. Pt sent to ED by PCP Admitting dx: Chest pain PCP: [facility] Specialists: AARON Araiza uro; Derm DEHYDRATOR at [facility] Preferred Pharmacy: [facility] retail Insurance: MCR A/B, MMO Prescription Benefit: Yes Living Will/HPOA: Pt states has LW/HPOA and states his daughter brought in the AD's and placed on chart. Pt states his daughter, Columba York, is HPOA. LNOK: Columba York, daughter/HPOA; Jeromy Vazquez, son Living Arrangements: Pt states son lives with him in 1 story apt and states no concerns at home. Pt states is independent with ADL's. Transportation: Pt states drives self and states no transportation concerns. DME/HHC: Pt states no current DME or need for any at this time. Pt states no hx of HHC or SNF in the past. Pt states no concerns with going home at time of discharge. Pt is retired. Pt states does not smoke cigarettes but does drink ETOH socially. Pt states no further concerns/needs. CM to follow for any further discharge planning/needs. Advised pt to ask for CM if any further questions/concerrns/needs arise, voices understanding. Pt Goal: Home Plan: [place] KIESHA HIGUERA
--- NOTE | 2021-03-20 14:23 | PN.CARD_ITS ---
Subjectve: The patient was evaluated earlier this day. He had been up and ambulating. He had no acute complaints of ongoing angina pectoris. Objective: Vital Signs Temp Pulse Resp BP Pulse Ox 97.6 F L 78 18 134/67 H 97 03/20/21 10:54 03/20/21 10:54 03/20/21 10:54 03/20/21 10:54 03/20/21 10:54 Oxygen Delivery Method Room Air Weight: 242 lb 8.136 oz Body Mass Index (BMI) 34.7 Intake and Output for Last 24 Hours 03/18/21 03/19/21 03/20/21 23:59 23:59 23:59 Intake Total 480 / 480 1021.67 / 1021.67 0 / 0 Balance 480 / 480 1021.67 / 1021.67 0 / 0 General: Awake, Alert, Oriented x 3, Cooperative, No Acute Distress HEENT: Atraumatic, Normocephalic, PERRL, EOMI, Sclera Non Icteric Neck: Supple, Good ROM, No JVD Lungs: Clear to auscultation Cardiovascular: Regular Rhythm, Normal S1, Normal S2 Vascular: Normal Radial Pulses Abdomen: Bowel Sounds Present, Soft Extremities: No edema Neurological: No Focal Motor or Sensory Deficit Psych/Mental Status: Appropriate 03/20/21 06:24: WBC 9.4, RBC 4.61, Hgb 13.5, Hct 41.8, MCV 90.7, MCH 29.3, MCHC 32.3, Plt Count 224, MPV 10.0, Immature Gran % (Auto) 0.400, Neut % (Auto) 73.0 H, Lymph % (Auto) 15.9 L, Coffee % (Auto) 8.2, Eos % (Auto) 2.0, Baso % (Auto) 0.5, Absolute Neuts (auto) 6.9, Nucleated RBC % 0 03/20/21 06:24: Sodium 136, Potassium 3.2 L, Chloride 104, Carbon Dioxide 26.0, Anion Gap 6, BUN 15, Creatinine 0.79, Est GFR (MDRD) Af Amer 121, Est GFR (MDRD) Non-Af 100, BUN/Creatinine Ratio 18.9, Glucose 113 H, Calcium 8.6, Total Bilirubin 0.90 Rhythm: Sinus rhythm EKG: This rhythm; first-degree AV block; occasional PVCs Medical Necessity - Tobacco Use Smoking Status: Former smoker Tobacco Use: Pipe Assessment/Plan 1. CAD The patient has been diagnosed with CAD. He underwent OM PTCA/stent. He is being staged for an LAD PTCA/stent. In the interim he will continue medical management. 2. Hypertension His blood pressure will be followed and his medications can be adjusted as needed. 3. Prediabetes He will continue evaluation care per internal medicine. Overall, at the present time, the patient appears to be doing well. He will continue medical therapy. He will be asked to present for outpatient cardiovascular follow-up including staged PCI to the LAD system. My: The patient's case has been discussed and reviewed with Dr. Maravilla. This note was generated using a voice recognition system and there may be incorrect words, spelling or punctuation that were not noted when reviewing the office note prior to saving.
--- NOTE | 2021-03-20 15:29 | CL.I_ITS ---
Patient Name: RAYA MCNAIR Study Date: 03/19/2021 Performing: Julia Al MD Ht: 70 inches 178 cm : 1940 Wt: 242.8 lbs 110 kg Age: 81 Gender: male BSA: 2.27 PROCEDURE(S) PERFORMED [id number] W OR WO PTCA, SINGLE CORONARY ARTERY CLINICAL PROFILE AND CO-MORBIDITIES Indications: Worsening Angina, Suspected CAD Heart Failure: None Stress/Imaging Stress/Image Study Performed: No Angina Classification Anginal Classification w/in 2 Weeks: CCS III CAD Presentations: Unstable angina. CONCLUSIONS Successful KEVIN to pOM2 (Orsiro 3.0 x 22mm) RECOMMENDATIONS DESCRIPTION OF PROCEDURE The patient arrived to the procedure lab. The risks and benefits of the procedure as well as a full d escription of our services here and current unavailability of surgical backup were fully explained to the patient and/or their significant other prior to the catheterization. The Timeout was completed, verifying the correct patient and procedure. The patient's procedural site was prepped and draped in the usual fashion. Local anesthetic was given subcutaneously to right radial region with Lidocaine 2% Using a modified Seldinger technique,arterial access was obtained via the right radial artery, a 6Fr sheath was inserted. Left Coronary Artery selective angiography was performed in multiple views usin g a 5 Fr. 4.0 [place] catheter. Right Coronary Artery selective angiography was then performed in multi ple views using a 5 Fr. JR 4 catheter. Left Coronary Artery selective angiography was performed in mu ltiple views using a 5 Fr. JL3.5 catheter. Left Ventriculography was performed in CUEVAS projection using a 5 Fr. Pigtail catheter. LV to AO pullback pressures were then recorded. XB 3 Guide catheter was inserted and engaged into the LCA. BMW Guide wire was advanced to the 2nd OM. 3.0 x 10 Tan Pro Balloon catheter was advanced across lesion in the second obtuse marginal, proximal PTCA balloon inflated at 7 atms for 12 secs. 3.0 x 22 Orsiro Drug Eluting stent was advanced across the lesion in the second obtuse marginal, proximal Angiogram performed post stent deployment. The arterial sheath was pulled and a TR Band was applied for hemostasis INTERVENTION INFORMATION LESION SITE: 2nd OM (Proximal) Lesion Complexity: High/C, chronic total occlusion: No, lesion at bifurcation: No, thrombus present: No, lesion length: 20 mm Pre Stenosis: 90 % Pre intervention SISSY flow: 3 PROCEDURE: Drug Eluting Stent with pre dilatation. Post Stenosis: 0 % Post intervention SISSY flow: 3 Lesion Devices: Dixon .014 BMW [place] Straight 190cm Cardinal 6 Fr XB3.0 100cm Guide Catheter COMPLICATIONS No Complications PROCEDURE MEDICATIONS Fentanyl 50 mcg IV Versed 1 mg IV Fentanyl 50 mcg IV Versed 1 mg IV Fentanyl 50 mcg IV Oxygen: 2 L/min via nasal cannula Heparin diluted in 23cc Heparinized saline. Patient given 10cc IA of this solution. 03/19/2021 09:47: 47 Heparin 8000 unit(s) IV 03/19/2021 12:35:20 Verapamil 2.5mg, Ntg 100mcgs, 2000 units of Heparin diluted in 23cc Heparinized saline. Patient give n 10cc IA of this solution. 03/19/2021 09:47:47 IV Bolus: .9 NaCl 300 ml total 03/19/2021 13:02:58 SUMMARY OF HEMODYNAMIC DATA Time AIR REST ECG 09:17:14 ECG 09:18:00 AO 212/69 (104) SA 09:37:42 AO 157/69 (101) 09:48:15 LV 156/-15, 16 10:14:11 LV 155/-14, 17 10:14:18 LV 155/-11, 21 10:15:32 LVp 166/-9, 18 10:15:40 AOp 153/63 (103) 10:15:45 Signed By Julia Al MD On 03/20/2021 15:28:24 Julia Al MD
--- NOTE | 2021-03-22 16:36 | DS.PCM_ITS ---
Discharge Date and Diagnosis - Problem List Patient Problems: Active and Suspected Problems (Last Updated 03/19/21 @ 17:28 by Mery Oswald) Chest pain (Acute) Date of Admission: 03/18/21 Date of Discharge: 03/20/21 - Primary Discharge Diagnosis Acute Problems: Active Problems (Last Updated 03/19/21 @ 17:28 by Mery Oswald) #1 unstable angina #2 occlusive coronary disease of the obtuse marginal branch of the circumflex coronary artery and the left anterior descending coronary artery #3 essential hypertension #4 hypokalemia #5 Hyperlipidemia #6 nonocclusive coronary artery disease right coronary artery - Secondary Discharge Diagnosis Chronic Problems: Chronic Problems (Last Updated 03/19/21 @ 17:28 by Mery Oswald) Presence of stent in coronary artery (Chronic ~03/19/21) Successful KEVIN to pOM2 (Orsiro 3.0 x 22mm) per cardiac cath 03/19/21 Atherosclerotic heart disease of [place] coronary artery without angina pectoris (Chronic) History of hypertension (Chronic) Prediabetes (Chronic) Unstable angina (Chronic) Celiac disease (Chronic) Diverticulosis (Chronic) Hospital Course and Treatment Operations: None Procedures: 2-D Echocardiogram, Cardiac catheterization Summary of Care Provided: The patient is a 81 year old M who was seen in the emergency room at [facility] with a chief complaint of chest pain. Patient had been developing chest pain as an outpatient for several days when he exerts himself. Patient was seen by his primary care physician the day before who ordered an EKG troponin and a CRP, CRP was positive at 7, troponin was normal. Work-up in the emergency room included a chest x-ray but that was unremarkable, EKG revealed a sinus rhythm at a rate of 73 with a first-degree AV block. His case was discussed with cardiology and the patient was admitted to PCU, he was seen in consultation by cardiology and had cardiac enzymes cycled which remain normal. Patient underwent a cardiac catheterization which showed occlusive coronary disease in the LAD and also the obtuse marginal branch of the circumflex coronary artery. A drug-eluting stent was placed in the obtuse marginal coronary artery and the plan was to bring the patient back at a future date to address the LAD lesion. On 03/20/2021, patient was seen and examined: On examination he appeared in good health and spirits. Vital signs as documented. Skin warm and dry and without overt rashes. Neck without JVD, neck was supple, trachea midline, thyroid was normal. Lungs clear bilaterally, normal air movement was noted. Heart exam notable for regular rhythm, normal sounds and absence of murmurs, rubs or gallops. Abdomen unremarkable and without evidence of organomegaly, masses, or abdominal aortic enlargement. Bowel sounds are present, abdomen is not distended. Extremities nonedematous, no cyanosis was noted, no clubbing was noted. Neuro: Cranial nerves II through XII are grossly intact, no focal motor deficits were noted, sensation to light touch and pinprick intact, motor exam 5/5 throughout. Psych: Patient is alert and oriented x3, he does not appear anxious or depressed, he does not appear agitated. Patient appears stable for discharge on 03/20/2021, at the time of discharge, his Brilinta was changed to Plavix due to cost and availability concerns, I talked with cardiology about this prior to making the change and they were okay with this change. Patient Problems: Active and Suspected Problems (Last Updated 03/19/21 @ 17:28 by Mery Oswald) Chest pain (Acute) - Physical Exam Vitals/I&O's: Vital Signs Temp Pulse Resp BP Pulse Ox 97.6 F L 78 18 134/67 H 97 03/20/21 10:54 03/20/21 10:54 03/20/21 10:54 03/20/21 10:54 03/20/21 10:54 Oxygen Delivery Method Room Air Weight: 110 kg Body Mass Index (BMI) 34.7 Intake and Output for Last 24 Hours 03/20/21 03/21/21 03/22/21 23:59 23:59 23:59 Intake Total 0 / 0 Balance 0 / 0 Discharge Activity: Return to Normal Activity Weight Bearing Status: Full weight bearing Home Medications: Medications to take at Discharge Amlodipine [Norvasc] 5 mg PO DAILY 03/18/21 Aspirin E.C. [Ecotrin] 81 mg PO DAILY@0800 03/18/21 Cholecalciferol (Vitamin D3) [Vitamin D3] 4,000 unit PO DAILY 03/18/21 Hydrochlorothiazide [Hctz] 25 mg PO QODAY 03/18/21 Metoprolol Succinate 25 mg PO DAILY 03/18/21 Vit C/E/Zn/Coppr/Lutein/Zeaxan [Preservision Areds 2 Softgel] 1 cap PO BID 03/18/21 Atorvastatin Calcium [Lipitor] 40 mg PO QHS #30 tablet 03/20/21 Isosorbide Mononitrate [Imdur] 30 mg PO DAILY #30 tablet 03/20/21 Ticagrelor [Brilinta] 90 mg PO BID #60 tablet 03/20/21 Valsartan [Diovan] 160 mg PO DAILY #1 tablet 03/20/21 Following Prescriptions Were Given to Patient: Ticagrelor [Brilinta] 90 mg PO BID #60 tablet Transmission Status: Received by [facility] Valsartan [Diovan] 160 mg PO DAILY #1 tablet Isosorbide Mononitrate [Imdur] 30 mg PO DAILY #30 tablet Transmission Status: Received by [facility] Atorvastatin Calcium [Lipitor] 40 mg PO QHS #30 tablet Transmission Status: Received by [facility] Primary Care Physician: [facility] Doctor,Out of [NON-STAFF] - Please Follow Up With: Tolu Franz MD When: in 3 weeks Disposition: Home Minutes spent on discharge:: 32 Patient Condition:: Stable Medical Necessity - Tobacco Use Smoking Status: Former smoker Tobacco Use: Pipe Meaningful Use Info Meaningful Use Diagnoses (Choose all that apply): None applicable Inpatient E&M: [id number] [facility]
== END 2021-03-20 12:11 | disposition home or self-care (01) | DRG 247 ==
LOC: ED 17:27 → PCU 18:03
PROVIDERS: Physician Assistant; Specialist; Admitting Provider Student in an Organized Health Care Education/Training Program; Emergency Provider Emergency Medicine; Visit Provider Internal Medicine
DX: I25.110 Atherosclerotic heart disease of native coronary artery with unstable angina pectoris (principal); I10 Essential (primary) hypertension; K90.0 Celiac disease; K57.90 Diverticulosis of intestine, part unspecified, without perforation or abscess without bleeding; E78.5 Hyperlipidemia, unspecified; Z66 Do not resuscitate; E87.6 Hypokalemia; N40.0 Benign prostatic hyperplasia without lower urinary tract symptoms; I44.0 Atrioventricular block, first degree; R73.03 Prediabetes; Z87.891 Personal history of nicotine dependence; Z79.82 Long term (current) use of aspirin; Z79.02 Long term (current) use of antithrombotics/antiplatelets
CPT/HCPCS: 36415; 71045; 80048; 80053; 80061; 84443; 84484; 85025; 85027; 85610; 92928; 93005; 93306; 93458; 99152; 99153; 99285; C1725; J7030; Q9957; Q9967; A4216; C1769; C1874; C1887; C1894; C8929; C9600

== ENCOUNTER 2021-03-29 13:05 | Emergency (ER) | payer MEDICARE, OTHER, SELFPAY ==
[2021-03-29 13:07] VITALS: BP 163/80; PULSE 77; RESP 18; TEMP 35.9; O2SAT 98; BMI 34.4
[2021-03-29] MEDS: Lidocaine 1% /Epi 1:100 (20ml) 20 ML Vial INFILT (13:40)
--- NOTE | 2021-03-29 14:05 | EX.ED.GENINJ ---
HPI History of Present Illness Chief Complaint: Laceration Narrative Narrative: Patient reports that approximately 3 hours ago he cut his chin while shaving. He is on Brilinta after having a stent placed last week. He cannot get this to stop bleeding. He reports that his tetanus is up-to-date. 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 Coronary artery disease Hypertension Home Medications amlodipine 5 mg PO DAILY 03/18/21 [History Last Taken 03/18/21] aspirin 81 mg PO DAILY@0800 03/18/21 [History Last Taken 03/18/21] cholecalciferol (vitamin D3) 4,000 unit PO DAILY 03/18/21 [History Last Taken 03/18/21] hydrochlorothiazide 25 mg PO QODAY 03/18/21 [History Last Taken 03/17/21] vit C,V-Zy-arjnh-lutein-zeaxan 1 cap PO BID 03/18/21 [History Last Taken 03/18/21] atorvastatin 40 mg PO QHS #30 tablet 03/20/21 [Rx Last Taken Unknown] isosorbide mononitrate 30 mg PO DAILY #30 tablet 03/20/21 [Rx Last Taken Unknown] ticagrelor 90 mg PO BID #60 tablet 03/20/21 [Rx Last Taken Unknown] metoprolol succinate 25 mg tablet,extended release 24 hr 25 mg PO DAILY 03/24/21 [History Last Taken Unknown] valsartan 160 mg tablet 160 mg PO DAILY 03/24/21 [History Last Taken Unknown] Allergy/AdvReac Type Severity Reaction Status Date / Time gluten AdvReac upset Verified 03/29/21 13:07 stomach/diarrhea lactose AdvReac upset Verified 03/29/21 13:07 stomach/diarrhea Surgical History History of cholecystectomy Presence of coronary angioplasty implant and graft (~03/19/21) Presence of stent in coronary artery (~03/19/21) Social History Smoking Status: Former smoker ROS ROS ED Constitutional Constitutional ED: Denies chills, fever(s) or sweats Eyes Eyes: Denies change in vision ENT ENT ED: Denies sore throat Cardiovascular Cardiovascular: Denies chest pain Respiratory/Chest Respiratory/Chest: Denies cough, dyspnea or dyspnea on exertion Gastrointestinal Gastrointestinal: Denies abdominal pain, diarrhea, melena, nausea or vomiting Genitourinary Genitourinary ED: Denies dysuria or urinary frequency Musculoskeletal Musculoskeletal: Denies myalgias Integumentary Denies rash Neurologic Neurologic: Denies headache(s), paresthesias or weakness EXAM Physical Exam Const Vital Signs: 03/29/21 13:07 Temperature 96.7 F L Temperature Source Temporal Pulse Rate 77 Respiratory Rate 18 Blood Pressure 163/80 H Blood Pressure Mean 107 Pulse Ox 98 Positive well nourished and well developed General Appearance ED: well developed HEENT Reports normocephalic and head/scalp atraumatic HEENT Narrative: There is an approximately 3 mm laceration to the mentum of his chin with moderate oozing. Eyes PERRL Neck no lymphadenopathy, supple and no JVD General: Negative for tenderness Resp normal respiratory effort and clear to auscultation bilaterally Cardio regular rate, regular rhythm and no murmurs GI normal to inspection, nondistended, normoactive bowel sounds and non-tender GI Narrative: No guarding, rebound, or peritoneal signs. Palpation: soft Back/Spine Back/Spine Narrative: Nontender. Extremity General Extremety ED: Negative for edema or tenderness General Extremity: Negative for edema Neuro oriented x3, CN's II-XII intact bilaterally and no sensory deficits noted Sensorium / Orientation: alert Motor Exam: strength 5/5 throughout Psych mental status grossly normal Skin no rashes or lesions noted MDM MDM MDM Narrative Medical decision making narrative: I numbed the area with 1% lidocaine with epinephrine. A single stitch was placed with 5 oh rapid Vicryl. The bleeding actually did not improve at all with this. It was further numbed with 1% lidocaine with epinephrine and pressure was held. It was repaired with Dermabond. This has held well and there is no further bleeding. Treatment plan: Patient be discharged instructions follow-up his primary care physician in addition as needed. Return to the emergency department for any worsening symptoms. Discharge Plan Triage Chief Complaint: Laceration ED Provider: Wang Cassidy Dx/Rx/DC Orders Instructions: ED Laceration, Face: Skin Glue Prescriptions: No Action amlodipine 5 MG tablet 5 mg PO DAILY RF: 0 hydrochlorothiazide 25 MG tablet 25 mg PO QODAY RF: 0 aspirin 81 MG tablet 81 mg PO DAILY@0800 RF: 0 cholecalciferol (vitamin D3) 2,000 UNIT capsule 4,000 unit PO DAILY RF: 0 vit C,J-Nj-ulvqo-lutein-zeaxan 1 EACH capsule 1 cap PO BID RF: 0 atorvastatin 40 MG tablet 40 mg PO QHS Qty: 30 RF: 0 isosorbide mononitrate 30 MG tablet 30 mg PO DAILY Qty: 30 RF: 0 ticagrelor 90 MG tablet 90 mg PO BID Qty: 60 RF: 0 metoprolol succinate 25 mg tablet extended release 24 hr 25 mg PO DAILY RF: 0 valsartan [Diovan] 160 mg tablet 160 mg PO DAILY RF: 0 Primary Care Provider: NOT,DEFINED Referrals: NOT,DEFINED [Primary Care Provider] - Doctor,Your [STAFF PHYSICIAN] - As Needed
== END 2021-03-29 14:59 | disposition home or self-care (01) ==
LOC: ED 14:24
PROVIDERS: Emergency Provider Emergency Medicine
DX: S01.81XA Laceration without foreign body of other part of head, initial encounter (principal); W27.8XXA Contact with other nonpowered hand tool, initial encounter; Y93.9 Activity, unspecified; Y92.89 Other specified places as the place of occurrence of the external cause; Y99.8 Other external cause status; F41.9 Anxiety disorder, unspecified; I25.10 Atherosclerotic heart disease of native coronary artery without angina pectoris; I10 Essential (primary) hypertension; Z87.891 Personal history of nicotine dependence; Z95.5 Presence of coronary angioplasty implant and graft; Z90.49 Acquired absence of other specified parts of digestive tract; Z79.82 Long term (current) use of aspirin
CPT/HCPCS: 12011; 99282

== ENCOUNTER 2021-04-03 09:15 | Day surgery (SDC) | payer MEDICARE, OTHER, SELFPAY ==
--- NOTE | 2021-04-02 07:00 | HP_ITS ---
Problem List (1) Unstable angina Status: Chronic (2) History of hypertension Status: Chronic (3) Prediabetes Status: Chronic Reason for Consult Date of Consultation: 03/18/21 History of Present Illness: The patient is a 81 year oldhyz-mpix-jyp white male who presents for evaluation of unstable angina superimposed upon hypertension and prediabetes . The patient follows with his primary care physician in the [place], [place] area. He states he has been in contact with him with respect to concerns of exertional chest discomfort which includes a centralized chest tightness when he is out casually walking. He states he will have to stop and rest to have his discomfort relieved. He will start walking again and his discomfort will return. He states this has been progressing recently and becoming more prominent. He can also feel somewhat short of breath and dyspneic with this. He has not had ongoing orthopnea or PND or peripheral pitting edema. There is been no near syncope or syncope. He states he had a follow-up visit with his physician yesterday. He notes an ECG was obtained. He does not believe there were any acute changes. However he received a call from his physician's office today instructing him to report to the emergency department for further evaluation and care including consideration for diagnostic cardiac catheterization. He states he has never undergone cardiovascular studies in the past with the exception of a remote exercise tolerance test which was considered negative. [] Past Medical History Allergies/Adverse Reactions: Allergies gluten Adverse Reaction (Verified 03/18/21 19:07) upset stomach/diarrhea lactose Adverse Reaction (Verified 03/18/21 19:07) upset stomach/diarrhea Home Medications: Ambulatory Orders Medication Instructions Recorded Amlodipine [Norvasc] 5 mg PO DAILY 03/18/21 Aspirin E.C. [Ecotrin] 81 mg PO DAILY@0800 03/18/21 Cholecalciferol (Vitamin D3) 4,000 unit PO DAILY 03/18/21 [Vitamin D3] Hydrochlorothiazide [Hctz] 25 mg PO QODAY 03/18/21 Metoprolol Succinate 25 mg PO DAILY 03/18/21 Valsartan [Diovan] 320 mg PO DAILY 03/18/21 Vit C/E/Zn/Coppr/Lutein/Zeaxan 1 cap PO BID 03/18/21 [Preservision Areds 2 Softgel] Past Medical History (Chronic Problems): Chronic Problems History of hypertension (Chronic) Prediabetes (Chronic) Unstable angina (Chronic) Celiac disease (Chronic) Diverticulosis (Chronic) Surgical History: no surgical history, - - Commended in the HPI Psychiatric History: No pertinent psych hx - *Family History Maternal History Items: No pertinent history - Patient is unaware of any maternal medical history Paternal History Items: No pertinent history - Patient is unaware of any paternal medical history Lives: Alone Smoking Status: Former smoker Tobacco Use: Pipe Alcohol: Occasional - Occasional beer and liquor Drugs: None Review of Systems - Review of Systems General: Denies: Fever, Night Sweats, Fatigue Cardiovascular: Reports: Chest Discomfort, Chest Discomfort with Exertion, Shortness of Breath, Shortness of Breath at Rest. Denies: Orthopnea, PND, Peripheral Edema, Palpitations, Lightheadedness, Dizziness, Near Syncope, Syncope Respiratory: Reports: Shortness of Breath. Denies: Cough, Sputum Production, Hemoptysis Gastrointestinal: Denies: Hematemesis, Hematochezia, Melena Genitourinary: Denies: Dysuria, Hematuria Skin: Denies: Rash Subjectve: This is a pleasant 81-year-old white male who appears to be resting reasonably comfortably at the moment in no acute distress. Objective: Vital Signs Temp Pulse Resp BP Pulse Ox 98.3 F 69 18 191/81 H 98 03/18/21 19:00 03/18/21 19:38 03/18/21 19:00 03/18/21 19:00 03/18/21 19:02 Oxygen Delivery Method Room Air Weight: 242 lb 8.136 oz Body Mass Index (BMI) 34.7 General: Awake, Alert, Oriented x 3, Cooperative, No Acute Distress HEENT: Atraumatic, Normocephalic, PERRL, EOMI, Sclera Non Icteric Neck: Supple, Good ROM, No JVD Lungs: Clear to auscultation Cardiovascular: Regular Rhythm, Normal S1, Normal S2 Vascular: No Carotid Bruits, Normal Femoral Pulses, Normal Radial Pulses Abdomen: Bowel Sounds Present, Soft, Non Tender Extremities: No edema Neurological: No Focal Motor or Sensory Deficit Psych/Mental Status: Appropriate 03/18/21 16:50: WBC 9.4, RBC 4.78, Hgb 13.9, Hct 45.5, MCV 95.2 H, MCH 29.1, MCHC 30.5 L, Plt Count 198, MPV 9.9, Immature Gran % (Auto) 0.400, Neut % (Auto) 67.8, Lymph % (Auto) 22.2, Kane % (Auto) 6.8, Eos % (Auto) 2.2, Baso % (Auto) 0.6, Absolute Neuts (auto) 6.4, Nucleated RBC % 0 03/18/21 16:50: Sodium 139, Potassium 3.4 L, Chloride 104, Carbon Dioxide 27.0, Anion Gap 8, BUN 21 H, Creatinine 0.95, Est GFR (MDRD) Af Amer 98, Est GFR (MDRD) Non-Af 81, BUN/Creatinine Ratio 22.0 H, Glucose 95, Calcium 8.5, Troponin I < 0.015 03/18/21 19:23: Troponin I < 0.015 Rhythm: Sinus rhythm EKG: Sinus rhythm; poor R wave progression; in for NH of indeterminate age cannot be excluded CXR: IMPRESSION: Normal x-ray examination of the chest. Electronically Signed: Joseph Lee MD at 17:01 EDT Assessment/Plan 1. Unstable angina The patient presents with symptoms concerning for accelerating/unstable angina. At the moment he appears to be resting comfortably. His initial cardiac enzyme is negative. His initial ECG demonstrates no acute ECG changes. At the present time he will continue medical management as deemed appropriate. Based upon his symptoms which appear to be accelerating with very minimal activity such as casual walking he will be referred for further evaluation with diagnostic cardiac catheterization. The procedure and risks were discussed with him. He was agreeable to this approach. 2. Hypertension His blood pressure will be followed and his medications can be adjusted as needed. 3. Prediabetes He will continue evaluation care per internal medicine. This note was generated using a voice recognition system and there may be incorrect words, spelling or punctuation that were not noted when reviewing the office note prior to saving. Procedure Criteria Procedure Type: Elective COVID Risk Discussion: The surgeon/proceduralist and patient have discussed in detail the risk of exposure to and/or potential harm posed by the COVID-19 virus with having a surgery/procedure at this time versus the risk of delaying the surgery/procedure. It is not possible to know either the risk of delaying the surgery or procedure or chance of getting an infection with perfect accuracy, but a joint decision was made between the patient and the surgeon/proceduralist to proceed at this time with the scheduled surgery/procedure as indicated on the consent form.
[2021-04-02 08:10] VITALS: BMI 34.4
[2021-04-03] VITALS (11 sets, daily range): BP systolic 140–166; BP diastolic 60–86; PULSE 71–77; RESP 11–19; TEMP 36.6–36.8; O2SAT 94–98; BMI 34.1
--- NOTE | 2021-04-03 12:45 | EKG12_ITS ---
Test Reason : AM EKG Blood Pressure : / mmHG Vent. Rate : 071 BPM Atrial Rate : 071 BPM P-R Int : 232 ms QRS Dur : 076 ms QT Int : 396 ms P-R-T Axes : 045 019 032 degrees QTc Int : 430 ms Sinus rhythm with 1st degree A-V block Otherwise normal ECG Confirmed by CLAUDINE MATHEWS, MADI ([id number]), editor dictionary YANELIS MELTON ([id number]) on 04/09/2021 9:12:08 AM Referred By: Macario Al Confirmed By:MADI CHOW MD
[2021-04-03] MEDS: 0.9% Normal Saline 1,000 ML 60 ML IV (13:24)
[2021-04-03] MEDS: 0.9% Saline Lock 10 ML Syringe IV (13:24)
--- NOTE | 2021-04-03 13:25 | CRPHASE1 ---
Patient Communication Former Patient:: Phase I - Staged PCI, Phase I education completed previously. PHII Cardiac Rehab Discussed with Patient:: No - Staged PCI, Phase I education completed previously. Guide to Cardiac Rehab Given to Patient:: No - Staged PCI, Phase I education completed previously. Cardiac Rehab Facility Choice List Given to Patient:: No - Staged PCI, Phase I education completed previously. Choice Program [facility] PHII:: Communication Given to CR Dance Artist:: Macario Al Refer Phase II Cardiac Rehab:: Yes Sessions:: 36 sessions - 3 days/wk, 12 weeks Cardiac Rehabilitation Info Cardiac Rehabilitation Program Information: Cardiac Rehabilitation is important for patients like you who are recovering from a heart problem. Cardiac rehabilitation programs are recognized as integral to the continued care of the patient with coronary heart disease. The cardiac rehabilitation program is designed to optimize a patient's physical, psychological, and social functioning. Health career representative work in cardiac rehabilitation programs and assist you with getting the treatments you need to get stronger and healthier - like exercise, healthy eating habits, and medications. Cardiac rehabilitation has been show to help people with heart problems live longer and have better life enjoyment than people who do not go to cardiac rehabilitation. Please contact the Cardiac Rehabilitation Program at [facility] at in two weeks if you have not heard from them.
--- NOTE | 2021-04-03 13:26 | CRPH1.INSTRU ---
General Education CAD and cardiac anatomy and function:: Patient communicates acknowledgment, Needs reinforcement Explanation of diagnoses and procedures:: Patient communicates acknowledgment, Needs reinforcement Sign/Symptoms of CA:: Patient communicates acknowledgment, Needs reinforcement Antiplatelet therapy: Patient communicates acknowledgment, Needs reinforcement Proper use of NTG-SL: Patient communicates acknowledgment, Needs reinforcement Emergency procedures and activation of EMS: Patient communicates acknowledgment, Needs reinforcement Compliance of all prescribed medications: Patient communicates acknowledgment, Needs reinforcement Dyslipidemia Patient Dyslipidemia Risk Factors Are:: Total Cholesterol, Triglycerides, HDL, LDL Recommendations Include:: Lipid profile not available, Reviewed NCEP/ATP guidelines, Therapeutic Lifestyle Change dietary guidelines Dyslipidemia Response Code:: Patient communicates acknowledgment, Needs reinforcement Overweight/Obesity Patient Overweight/Obesity Risk Factors Are:: Obesity - > or = 30 Recommendations Include:: Weight loss of 5-10%, Reduced calorie diet, Exercise 5-7 times/week Overweight/Obesity:: Patient communicates acknowledgment, Needs reinforcement Hypertension Recommendations Include:: Maintain BP <130/85, DASH dietary guidelines, Decrease/maintain normal body weight, Moderation of ETOH Hypertension:: Patient communicates acknowledgment, Needs reinforcement Heart Disease Patient Heart Disease Risk Factors Are:: Previous cardiac event Recommendations Include:: Educated family members of their risk, Educated family members of importance of prevention of heart disease Heart Disease Response Code:: Patient communicates acknowledgment, Needs reinforcement Sedentary Patient Sedentary Risk Factors Are:: Lack of regular exercise Recommendations Include:: Aerobic exercise 5-7 times/week for 20-30 minutes continuously, Benefits of regular exercise, Discussed home walking program, Monitored Outpatient Cardiac Rehab Sedentary Response Code:: Patient communicates acknowledgment, Needs reinforcement
--- NOTE | 2021-04-03 17:50 | NURSING ---
Bedrest completed, ambulated patient in hallway. Right groin site soft, without evidence of bleeding and no pain per patient report.
[2021-04-03] MEDS: Multivitamin (Healthy Eyes) Capsule 1 CAP PO (17:57)
[2021-04-03] MEDS: Atorvastatin Calcium 40 MG Tablet PO (21:10)
[2021-04-03] MEDS: TICAGRELOR 90 MG TABLET PO (21:10)
[2021-04-04 03:00] VITALS: PULSE 71
[2021-04-04 03:03] VITALS: BP 144/69; PULSE 72; RESP 16; TEMP 36.9; O2SAT 95
[2021-04-04 05:16] LABS: Hematocrit 37.9 % (40-54); Hemoglobin 12.3 g/dL (13.0-16.5); Mean Corp Hgb Conc 32.5 g/dL (32-36); Mean Corpuscular Hgb 29.4 pg (27.0-32.0); Mean Corpuscular Volume 90.5 fL (80-94); Mean Platelet Vol. 9.7 fl (6.2-12.0); Platelet Count 186 K/mm3 (150-450); RBC Distribution Width CV 12.8 % (11.6-14.6); RBC Distribution Width SD 42.9 fl (35.1-43.9); Red Blood Count 4.19 M/mm3 (4.6-6.2); White Blood Count 7.7 K/mm3 (4.4-11.0)
[2021-04-04 05:35] LABS: ALB/GLOB Ratio 0.9 RATIO (0.9-2.4); AST(SGOT) 20 U/L (15-37); Alanine Aminotransfer ALT/SGPT 28 U/L (16-61); Albumin, Serum 2.9 g/dL (3.2-5.0); Alkaline Phosphatase 77 U/L (45-117); Anion Gap 6 (5-15); BUN 14 mg/dL (7-18); BUN/Creat Ratio 17.2 RATIO (10-20); Calcium,Total 8.1 mg/dL (8.5-10.1); Chloride 106 mmol/L (98-107); Creatinine, Serum 0.81 mg/dL (0.70-1.30); EST Glomerular Filtration Rate 97 mL/min (>60); Est Glom Filt Rate - Afr Amer 117 mL/min (>60); Estimated Creatinine Clearance 73.85 ml/min; Globulin 3.1 g/dL (2.2-4.2); Glucose 108 mg/dL (74-106); Potassium 3.9 mmol/L (3.5-5.1); Sodium Level 139 mmol/L (136-145)
[2021-04-04 07:00] VITALS: PULSE 71
[2021-04-04 07:17] VITALS: O2SAT 95
[2021-04-04 07:58] VITALS: BP 144/76; PULSE 72; RESP 18; TEMP 36.8; O2SAT 96
[2021-04-04] MEDS: Aspirin E.C. 81 MG Tablet PO (08:01)
[2021-04-04] MEDS: Multivitamin (Healthy Eyes) Capsule 1 CAP PO (08:01)
[2021-04-04 08:02] VITALS: BP 144/76; PULSE 72
[2021-04-04] MEDS: hydroCHLOROthiazide 25 MG Tablet PO (08:02)
[2021-04-04] MEDS: TICAGRELOR 90 MG TABLET PO (08:02)
[2021-04-04] MEDS: Metoprolol(XL)Succ 25 MG Tablet PO (08:02)
[2021-04-04] MEDS: Losartan Potassium 50 MG Tablet PO ×2 (08:02)
[2021-04-04] MEDS: Isosorbide Mononitrate 30 MG Tablet PO (08:02)
[2021-04-04] MEDS: amLODIPine 5 MG Tablet PO (08:02)
--- NOTE | 2021-04-04 10:00 | EKG12_ITS ---
Test Reason : ADMIN Blood Pressure : / mmHG Vent. Rate : 069 BPM Atrial Rate : 069 BPM P-R Int : 236 ms QRS Dur : 082 ms QT Int : 398 ms P-R-T Axes : 032 018 023 degrees QTc Int : 426 ms Sinus rhythm with 1st degree A-V block Otherwise normal ECG Confirmed by CLAUDINE MATHEWS, MADI ([id number]), field map editor YANELIS MELTON ([id number]) on 04/09/2021 9:14:34 AM Referred By: Macario Al Confirmed By:MADI CHOW MD
--- NOTE | 2021-04-04 10:02 | CL.I_ITS ---
Patient Name: RAYA MCNAIR Study Date: 04/03/2021 Performing: Julia Al MD Ht: 70 inches 178 cm : 1940 Wt: 240.6 lbs 109 kg Age: 81 Gender: male BSA: 2.26 PROCEDURE(S) PERFORMED [id number] W OR WO PTCA, SINGLE CORONARY ARTERY [id number], EACH ADD'L CORONARY ART, SAME MAJOR CLINICAL PROFILE AND CO-MORBIDITIES Indications: staged PCI of LAD Heart Failure: None Stress/Imaging Stress/Image Study Performed: No CAD Presentations: Unstable angina. CONCLUSIONS Successful PCI of mLAD/D1 bifurcation with KEVIN to LAD (orsiro 3.5 x 18m) and PTCA to D1 RECOMMENDATIONS DESCRIPTION OF PROCEDURE The patient arrived to the procedure lab. The risks and benefits of the procedure as well as a full d escription of our services here and current unavailability of surgical backup were fully explained to the patient and/or their significant other prior to the catheterization. The Timeout was completed, verifying the correct patient and procedure. The patient's procedural site was prepped and draped in the usual fashion. Local anesthetic was given subcutaneously to right radial region with Lidocaine 2% . Local anesthetic was given subcutaneously to right groin region with Lidocaine 2%. Using a modified Seldinger technique, arterial access was obtained via the right radial artery, a 6Fr sheath was inse rted., arterial access was obtained via the right femoral artery, a 6Fr sheath was inserted.. Right r adial selective angiography was then performed in single view xb3 Guide catheter was inserted and engaged into the LCA. bmw Guide wire was advanced to the 1st diag runthrough Guide wire was advanced to the LAD Angiogram performed pre balloon dilatation. 3.0x12 emerge Balloon catheter was inserted. Balloon catheter was advanced across lesion in the LAD, mid. P TCA balloon inflated at 8 atms for 15 secs. PTCA balloon inflated at 8 atms for 7 secs. PTCA balloon inflated at 8 atms for 7 secs. Angiogram performed post balloon dilatation. 2.0x12 emerge Balloon cat heter was inserted. Balloon catheter was advanced across lesion in the first diagonal, ostial. PTCA b alloon inflated at 10 atms for 10 secs. PTCA balloon inflated at 12 atms for [address] ug Eluting stent was inserted. Drug Eluting stent was advanced across the lesion in the LAD, mid. Ang iogram performed post stent deployment. 1.5x15 Balloon catheter was inserted. Balloon catheter was ad vanced across lesion in the first diagonal, ostial. PTCA balloon inflated at 12 atms for 13 secs. 3.5x12 nc dale Balloon catheter was inserted. Balloon catheter was inserted post stent. 3.5x1 2 emerge nc Balloon catheter was inserted. Balloon catheter was inserted post stent. Angiogram perfor med post balloon dilatation. Angiogram performed post balloon dilatation. Contrast was injected throu gh the sheath and the Right Iliac and Femoral artery were assessed for possible closure device. The a rterial sheath was pulled and a Starclose closure device was deployed for hemostasis. The arterial sh eath was pulled and a TR Band was applied for hemostasis 20cc air INTERVENTION INFORMATION LESION SITE: 1st Diagonal (Ostial) Lesion Complexity: High/C, chronic total occlusion: No, lesion at bifurcation: No, thrombus present: No, lesion length: 6 mm, culprit lesion: Yes, Previously treated lesion: No Pre Stenosis: 80 % Pre intervention SISSY flow: 3 PROCEDURE: Balloon Angioplasty Post Stenosis: 20 % Post intervention SISSY flow: 3 Lesion Devices: Dixon .014 BMW Heidrick Straight 190cm Cardinal 6 Fr XB3.0 100cm Guide Catheter Terumo .014 Runthrough Extra Floppy 180cm straight [employer] EMERGE MR 2.00x12 BALLOON [employer] EMERGE MR 1.50x15 BALLOON LESION SITE: LAD (Mid) Lesion Complexity: High/C, chronic total occlusion: No, lesion at bifurcation: Yes, thrombus present: No, lesion length: 12 mm, culprit lesion: Yes, Previously treated lesion: No Pre Stenosis: 80 % Pre intervention SISSY flow: 3 PROCEDURE: Drug Eluting Stent with pre and post dilatation Post Stenosis: 0 % Post intervention SISSY flow: 3 Lesion Devices: Dixon .014 BMW Heidrick Straight 190cm Cardinal 6 Fr XB3.0 100cm Guide Catheter [employer] EMERGE MR 3.00x12 BALLOON [employer] [place] EMERGE MR 3.50x12 BALLOON COMPLICATIONS No Complications PROCEDURE MEDICATIONS Versed 1 mg IV Fentanyl 50 mcg IV Oxygen: 2 L/min via nasal cannula Heparin 7000 unit(s) IV 04/03/2021 11:22:49 Heparin 2000 unit(s) IV 04/03/2021 11:52:19 Potassium Chloride 40 mEq PO 04/03/2021 11:09:36 Verapamil 2.5mg inter artery 04/03/2021 11:14:32 SUMMARY OF HEMODYNAMIC DATA Time AIR REST ECG 09:35:09 AO 130/58 (83) SA 11:24:48 Signed By Julia Al MD On 04/04/2021 10:01:32 Julia Al MD
--- NOTE | 2021-04-04 11:18 | PCM.PN.BLA ---
Progress Note Discharge summary: Date of admission: 04/03/2021 Date of discharge: 04/04/2021 Reason for Hospital visit: For staged PCI of LAD Hospital course: Patient underwent PCI to the LAD diagonal bifurcation without any complications. He is doing well today. He had an uneventful hospital course. He is being discharged home in a stable condition. He will follow up with Dr. Franz as an outpatient.
--- NOTE | 2021-04-04 13:46 | PCM.DC ---
Discharge Instructions Diet Discharge Diet: No restrictions (You may continue your normal diet.) Activity May resume sexual activity in: 1 week (if no groin problems occur.) Lifting Restrictions: 10 pounds and also avoid any pushing or pulling for 3 days after your test. Additional Activity Instructions:: You must have someone drive you home. Do not drive until instructed by your doctor. You must have someone stay with you all night after your test. Rest in bed or on the couch until the next morning. Limit the number of times you go up and down stairs the day of your test. Dressing / Incision Call your doctor if your incision/area has: Increased Pain/ Swelling, Increased Redness, Foul Smelling Discharge and Swelling at the incision site Call your doctor if you observe: Fever of 101 or Higher Additional Dressing/Incision Instructions:: Keep the dressing (bandage) on until the next morning. You may then shower, but do not take a tub bath for 5 days after your test. It is normal to have some tenderness and discomfort at the puncture site. Sometimes bruising also occurs. However, if pain, numbness, or coldness occurs below the puncture site (in your leg, toes, arms or fingers) call your doctor at once. You may have a small, marble sized knot at the puncture site. This is normal. Do not rub it. It will go away in 4-6 weeks. Bleeding can occur from the area where the puncture was done. Blood may spurt or drip from the site. If blood spurts, apply pressure right away to stop bleeding and call 911. Although rare, bleeding into the tissue (hematoma) can also occur. If this happens, a large, firm area goose egg under the skin will appear. If any of these occur, lie down as flat as you can and have someone apply firm pressure to the cath site with a gauze pad or a clean washcloth for 10-15 minutes. Call 911 or go to the Emergency Department. Follow Up Care Test Results: Test results from this visit will be discussed in further detail at your follow-up appointment, if applicable. Discharge Plan Admission Primary Reason for Your Visit: for staged PCI of LAD Attending Provider: Macario lA Instructions Patient Instructions: ED Chest Pain, Noncardiac Discharge Orders/Prescriptions Prescriptions: Continued amlodipine 5 MG tablet 5 mg PO DAILY RF: 0 hydrochlorothiazide 25 MG tablet 25 mg PO QODAY RF: 0 aspirin 81 MG tablet 81 mg PO DAILY@0800 RF: 0 cholecalciferol (vitamin D3) 2,000 UNIT capsule 4,000 unit PO DAILY RF: 0 vit C,D-Vy-hlqfz-lutein-zeaxan 1 EACH capsule 1 cap PO BID RF: 0 atorvastatin 40 MG tablet 40 mg PO QHS Qty: 30 RF: 0 isosorbide mononitrate 30 MG tablet 30 mg PO DAILY Qty: 30 RF: 0 metoprolol succinate 25 mg tablet extended release 24 hr 25 mg PO DAILY RF: 0 valsartan [Diovan] 160 mg tablet 160 mg PO DAILY RF: 0 ticagrelor 90 mg tablet 90 mg PO BID Qty: 60 RF: 11 Referrals / Follow Up: DA[facility]IVEROS [Other] Disposition Disposition (needs filled in before D/C Order can be placed): Home, self care
== END 2021-04-04 11:16 | disposition home or self-care (01) ==
LOC: CLSP 09:16 → PCU 04-04 08:11
PROVIDERS: Referring Provider Specialist; Visit Provider Specialist
DX: I20.0 Unstable angina (principal); I10 Essential (primary) hypertension; R73.03 Prediabetes; K90.0 Celiac disease; K57.90 Diverticulosis of intestine, part unspecified, without perforation or abscess without bleeding; Z79.82 Long term (current) use of aspirin; Z79.899 Other long term (current) drug therapy; Z87.891 Personal history of nicotine dependence
CPT/HCPCS: 36415; 80053; 85027; 92921; 92928; 93005; 99152; 99153; C1725; J7030; J7040; Q9967; A4216; C1760; C1769; C1874; C1887; C1894; C9600

== ENCOUNTER → 2021-04-11 09:42 | Outpatient (CLI) | payer MEDICARE, OTHER, SELFPAY ==
[2021-03-18 18:43] VITALS: BMI 34.7
[2021-04-03 12:43] VITALS: BMI 34.1
--- NOTE | 2021-04-11 09:53 | PCM.CR.ITP ---
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 Personal Learning Style:: Audio/Visual, Written Barriers to Learning: Vision Impairment Stage of change r/t lifestyle modifications:: Action Gave educational material for:: Treating Heart Disease, Emotions & Heart Disease, Stress Management & Relaxation, Sleep Disorders & Heart Disease, How The Heart Works, What it means to have Heart Disease, How Coronary Artery Disease is Diagnosed, Heart Procedures, What Heart Medications Do, Risk Factors & Modifications, Living an Active Life, Nutrition - Education/Goals Individual Counseling: Initial Assessment: Abnormal Cholesterol Levels, High Blood Pressure, Overweight/Obesity - BMI 34.7 Cardiac Rehabilitation Goals: 1. Maintain the individual as the primary focus of care. 2. To improve the patient's quality of life. 3. Identification of cardiac risk factors and provide cardiac risk factor management. 4. Enhance the psychosocial status of the patient. 5. Reconditioning enough to allow the patient to resume customary activities. 6. Control symptoms of cardiac disease Personal Goals: Initial Assessment: Improve energy level, Improve knowledge of cardiac disease, Improve muscle strength and endurance, Improve diet and eating habits (eat healthier), Control risk factors (learn risk factor modification) Scale for measuring improvement of personal goals: Enter appropriate number in Comments. 2 = Unchanged. 3 = Slightly Better. 4 = Moderate Improvement. 5 = Met my Goal - Diagnosis & Disease Process Outcomes/Goals: Pt IDs own risk factors & lifestyle modifications by Session 10, Verbalizes symptoms of angina & response by session 3., Pt independently manages Plan/Interventions: Assist Pt to ID & engage in lifestyle modification to reduce CVD risk, Instruct on individual risk factors, Review symptoms of angina & emergency actions, Review secondary diagnosis & identify educational needs. - Safety Referral to Physical Therapy: No Referral to [facility] Case Management: No Fall Risk Assessed:: Yes Assistive Devices:: None Exercise - Initial Assessment - Visit Date of Eval: 04/11/21 Session #:: 0 - pre-cardiac rehab evaluation Mets: Pre-: >7 METS for 30 minutes by discharge - Physician Prescribed Exercise Modalities: Treadmill, Rower, Airdyne, NuStep Frequency: 3x/week for 12 weeks [36 sessions] Intensity: 60-80% of age predicted maximum heart rate reserve Current METSs:: 2.5 Target Heart Rate:: 90-118 Resting Blood Pressure: 134/67 EKG Type: Sinus rhythm wiht first degree AV block - Outcomes & Goals Goals:: Verbalizes understanding of THR, RPE & goal METS by session 6, Documents in home exercise log/reports 30 min aerobic 5 day/wk by DC, Demonstrates accurate pulse taking by DC - Intervention & Plan Exercise Program Goals: Instruct on personal THR & RPE, Instruct on MET level & personal MET goal, Show patient to take own pulse /validate performance until accurate, Instruct on home exercise - Physical Activity Home Exercise Physical Activity - Home Exercise: Safe Exercise, Warm-up, Self-monitoring, Cool-Down, Home Exercise > 30 min Daily, Sitting Time <3 hours/daily - Outcomes & Goals Outcomes/Goals: Demonstrates correct Warm-up/exercise Cool-Down (S3) if = 2.5 METs, Verbalizes symptoms of exercise intolerance by Session 3 (S3), Demonstrate safe equipment use (S3) & follows exercise prescrition (6) - Intervention & Plan Plan/Intervention: Instruct warm-up & cool-down if exercising at > 2 METs, Instruct on symptoms of exercise intolerance & actions to take, Instruct & monitor on saf, Assess intial functional capacity & safety risk Nutrition - Initial Assessment - Program Goals Nutrition Program Goals: LDL <100 optimal. 100 - 129 Near optimal. 130 - 159 Borderline High. 160 - 189 High. Total Cholesterol <200 desirable. 200 - 239 Borderline High. >/= 240 High. HDL < 40 Low >/=60 High. Triglycerides <150 desirable. <199 optimal. VlDL 5 - 40. HgbA1C <7%. BMI <25 Patient has diagnosis of Hyperlipidemia (ICD E78)?: Yes - Visit Date of Assessment:: 04/11/21 Session #:: 0 - Pre-cardiac rehab evaluation - Cholesterol/Lipids Triglycerides (mg/dL): 126 - 03/19/21 Total Cholesterol (mg/dL): 160 LDL Cholesterol (mg/dL): 99 HDL Cholesterol (mg/dL): 36 Determine presence & major risk factors that modify LDL goal: Hypertension or hypertensive medication, Low HDL cholesterol <40 mg/dL*, Family history of premature CHD in Male < 55 years: female <65 yearsFa, Age men > 45 years; women >/= 55 years Outcomes/Goals: Pt IDs own risk factors & lifestyle modifications by Session 10, Verbalizes symptoms of angina & response by session 3., Pt independently manages Intervention/Plan: Instruct on personal lipid levels & lipid goals/NCEP guidelines, Instruct on cholesterol - Diabetes (Other Core Measures) Diabetes Type: Not Applicable - Weight Mgt (Other Care) Not Applicable: Yes Height: 5 ft 10 in Weight:: 242 lb 11.2 oz BMI: 34.8 Diagnosis Overweight/Obesity BMI> 30% ICD-10 E66: Yes Diagnosis High BMI/Morbid Obesity BMI> 35% ICD-10 Z68: Yes Outcomes/Goals: Pt sets, maintains & shows weight loss goal & trend during rehab Intervention/Plan: Instruct on ideal BMI & set weight loss goal w/patient, Assist pt to ID & incorporate diet changes for weight loss by S9, Refer to Structured Weight Loss program as appropriate, Encourage goal of using 250-300dcal per session for weight loss - Healthy Eating Habits Will attend diet classes:: Yes Outcomes/Goals:: Consume diet rich in vegs,fruits,whole grain/high fiber,fish,lean meat, Limit sat/trans fats,cholesterol & added salts & sugars Intervention/Plan:: Assess current eating habits - Education Gave educational materials for:: Healthy eating Nutrition - 30-Day Assessment Nutrition - 60-Day Assessment Nutrition - 90-Day Assessment Nutrition - Final Assessment Medical - Initial Assessment - Visit Date of Eval: 04/11/21 Session #:: 0 - Pre-cardiac rehab evaluation - Medication Compliance Preventative Medication(s):: Aspirin, Statin/lipid, Beta yennifer H/O mental health issues: depression, anxiety, or addiction?: No Doesn?t believe in the benefits of treatment?: No Believes medications are unnecessary or harmful?: No Has a concern about medication side effects?: No Expresses concern over the cost of medications?: No Outcomes/Goals: Verbalizes medications,desired effect & common side effects @ DC, Pt self-reports following medication regimen, Keeps card in wallet w/medications listed by DC Interventions/plans: Instruct on medication effects & side effects, Review medication list w/patient every two weeks, Instruct importance of taking meds as ordered & assist problem solving - Tobacco Use Tobacco Use: Non-smoker - Hypertension Hypertension Diagnosis:: Hypertension ICD-10 I10 Resting Blood Pressure:: 134/67 Citizen [place] [employer] Hypertension Guidelines: Citizen [place] [employer] Hypertension Guidelines. Normal BP Less than 120/80. Elevated BP 120/80. Hypertension Stage 1: BP 130-139/80-89. Hypertesnion Stage 2: BP 140 or higher/90 or higher. Hypertension Crisis: BP higher than 180/120 Outcomes/Goals: Able to verbalize/achieve optimal blood pressure <130/80, Incorporates diet changes & exercise for blood pressure control by DC Interventions/plan: Instruct on optimal blood pressure, hypertension & medications, Instruct on effects of sodium, alcohol, stress, exercise &hypertension - Tobacco Cessation Referral Smoking Cessation Referral:: No Individual Education/Counseling:: No Education Schedule Given:: Yes Medical- 30-Day Assessment Medical- 60-Day Assessment Medical- 90-Day Assessment Medical - Final Assessment Psychosocial - Initial Assess - VIsit Date of Eval: 04/11/21 Session #:: 0 - pre-cardiac rehab evaluation Not Applicable: Yes History of previous Mental disease:: No - Psychosocial Test Tool Used:: Zoey Beltrán QOL Cardiac, PHQ-9 Questionnaire phq-9 Severity: Severity. 1-4 Minimal Depression. 5-9 Mild Depression. 10-14 Moderate Depression. 15-19 Moderately Sever Depression. 20-27 Severe Depression. Rule: - Referral to Behavioral Health PS - Interventions: Yes Attend Stress Management Classes, No Referral to Behavioral Health if PHQ-9 score >9:, No Referral to [facility], No Referral to Physician if PHQ-9 if score is 5-9: - Outcomes/Goals: See list Psychosocial Outcomes/Goals:: ID's personal stressors & 2 strategies to manage stress by discharge - Intervention/Plan: See List Interventions/Plan:: Assess stressors,coping strategies & signs of derpression on admission, Instruct/assist pt to develop coping & personal stress Mgt strategies, Instruct patient to recognize signs & symptoms of depression, Instruct patient to recog Psychosocial - 30-Day Assess Psychosocial - 60-Day Assess Psychosocial - 90-Day Assess Psychosocial - Final Assessmen Patient Health Questionnaire Initial Assessment 1. Little interest or pleasure in doing things: Not at all 2. Feeling down, depressed, or hopeless: Not at all 3. Trouble falling or staying asleep, or sleeping too much: Nearly every day 4. Feeling tired or having little energy: Several days 5. Poor appetite or overeating: Not at all 6. Feeling bad about yourself -- or that you are a failure or have let yourself or your family down: Not at all 7. Trouble concentrating on things, such as reading the newspaper or watching television: Not at all 8. Moving or speaking so slowly that other people could have noticed. Or the opposite - being so fidgety or restless that you have been moving around a lot more than usual: Not at all 9. Thoughts that you would be better off , or of hurting yourself in some way: Not at all How difficult have these problems made it for you to do your work, take care of things at home, or get along with other people?: Not difficult at all Total Score: 4 JOHN-Q SV Test - Statements CAD is a disease of the arteries in the heart: False Examples of risk factors for heart disease: True Angina is chest pain or discomfort: True The benefits of resistance training include: I Don't Know Eating more meat and dairy products: I Don't Know Anti-platelet medications such as aspirin are important: True The only effective way to manage stress: False An exercise warm-up slowly increases heart rate: True Prepared, processed foods usually have high sodium: True Depression is common after a heart attack: I Don't Know The statin medications lower cholesterol: I Don't Know To control blood pressure, lower the amount of sodium: True If someone gets chest discomfort during walking: False Transfats are partially hydrogenated vegetable oils: I Don't Know Sleep apnea that is not treated increases the risk: I Don't Know To control cholesterol, one should become a vegetarian: False Someone knows if he/she is exercising at the right level: True Diabetes cannot be prevented with exercise & health eating: False Stress is a large risk for heart attack: True A diet that can help lower blood pressure is rich in: True - Total Score Total Correct Responses: 14 Self-Efficacy Initial Assessment We would like to know how confident you are in doing certain activities. Please select your confidence level for:: Select your confidence level for the following using the scale 1-10 where 1 is not at all confident and 10 is totally confident. Your score is the average of all 6 responses. Fatigue: How confident are you that you can keep the fatigue caused by your disease from interfering with the things you want to do? Select Number: 10 Physical Discomfort or Pain: How confident are you that you can keep the physical discomfort or pain of your disease from interfering with the things you want to do? Select Number: 10 Emotional Distress: How confident are you that you can keep the emotional distress caused by your disease from interfering with the things you want to do? Select Number: 10 Other Symptoms or Health Problems: How confident are you that you can keep other symptoms or health problems from interfering with the things you want to do? Select Number: 10 Different Tasks and Activities: How confident are you that you can do the different tasks and activities needed to manage your health condition so as to reduce your need to see a doctor? Select Number: 9 Medication: How confident are you that you can do things other than just taking medication to reduce how much your illness affects your everyday life? Select Number: 9 Total Score:: 9 Nutrition Survey - Nutrition Survey Initial Have you lost >10 lbs over the past 2 months without trying?: No Are you following a special diet at home for diabetes, low fat, or low salt?: No Are you interested in meeting with a dietitian for help understanding your diet?: Yes Do you eat less than 3 meals a day?: Yes Do you eat fatty meats (duncan, sausage, ribs, etc), fried foods, desserts, large amounts of salad dressings, margarine, butter, or cheese most days?: No Do you have food allergies? [Enter types in comment field]: Yes - Gluten & Dairy Do you eat in restaurants more than 3 times a week?: No Do you season food with salt, seasoning salt, or garlic salt?: No Do you used canned, boxed, frozen meals, or soups, seasoning packets?: No Total Score:: 3
--- NOTE | 2021-04-11 09:54 | CR.HP_ITS ---
CR - History & Physical - General Arrival date:: 04/11/21 Arrival time:: 09:58 Date of Referral:: 03/19/21 Date of CR Evaluation:: 04/11/21 Referring Physician: Dr. Tolu Franz Primary Diagnosis: PCI w/coronary stenting - staged procedures - History of Present Cardiac Event Onset Date: Enter Onset Date of cardiac illnesses in Comment field below PTCA or coronary stenting:: Yes - 03/19/2021 & 03/31/2021 Type of Symptoms:: substernal chest pain while walking associated with shortness of breath came to the emergency room. Interventions with present event:: Immediate PCI intervention completed and planned second intervention. Were there any complications?: Hemmoraging at the femoral site post cath. Easily controlled. - Sleep Disorder Evaluation Hx of Sleep Apnea: Yes Do you snore loudly (louder than talking or can be heard through closed doors)?: Yes - a long time ago. Do you often feel tired/ fatigued/ sleepy during daytime?: Yes - still experiencing some fatigue but attributes to latest health issues and caregiver for . Has anyone observed you stop breathing during sleep?: No History of Hypertension (for STOP score): Yes STOP Results: Positive - Medications Home Medications: Ambulatory Orders Medication Instructions Recorded amlodipine 5 mg PO DAILY 03/18/21 aspirin 81 mg PO DAILY@0800 03/18/21 cholecalciferol (vitamin D3) 4,000 unit PO DAILY 03/18/21 hydrochlorothiazide 25 mg PO QODAY 03/18/21 vit C,X-Vz-kyluf-lutein-zeaxan 1 cap PO BID 03/18/21 atorvastatin 40 mg PO QHS #30 tablet 03/20/21 isosorbide mononitrate 30 mg PO DAILY #30 tablet 03/20/21 metoprolol succinate 25 mg 25 mg PO DAILY 03/24/21 tablet,extended release 24 hr valsartan 160 mg tablet 160 mg PO DAILY 03/24/21 ticagrelor 90 mg tablet 90 mg PO BID #60 tablet 04/04/21 - Allergies Allergies/Adverse Reactions: Allergies gluten Adverse Reaction (Verified 03/29/21 13:07) upset stomach/diarrhea lactose Adverse Reaction (Verified 03/29/21 13:07) upset stomach/diarrhea Advanced Directives - Advanced Directives Power of Director Of Content And Programming: Yes Living Will: Yes Advance Directives Information Provided: No Advance Directives on File: Yes DNR Order?:: No - MOLST See MOLST form: No Past Medical History - Covid-19 Screening Has tested positive for COVID-19 in last 30 days: No Date of testin01/19/21 - Moderna vaccine Had contact w/person w/symptoms or Covid-19 (+) last 14 days: No 65 years or older:: Yes Lives in Assisted Living facility:: No Has a serious heart condition:: Yes Immunocompromised:: No Severely obese (Body Mass Index of 40 or higher):: Yes Diabetic:: No Has chronic kidney disease undergoing dialysis:: No Has liver disease:: No - Past Medical Illness Medical History: Past Medical History (Last Updated 04/02/21 @ 14:19 by Darwin Garcia) Anxiety F41.9 Atherosclerotic heart disease of [place] coronary artery without angina pectoris I25.10 Celiac disease K90.0 Coronary artery disease I25.10 Hypertension I10 Hypertension I10 - Past Surgical History Surgical History: Past Surgical History (Last Updated 04/07/21 @ 17:10 by Mery Oswald) History of cholecystectomy Z90.49 Presence of coronary angioplasty implant and graft Onset Date: ~03/19/21 Z95.5 Successful KEVIN to pOM2 (Orsiro 3.0 x 22mm) per cardiac cath 03/19/21 Presence of stent in coronary artery Onset Date: ~04/03/21 Z95.5 Successful PCI of mLAD/D1 bifurcation with KEVIN to LAD (orsiro 3.5 x 18m) and PTCA to D1 04/03/21 Successful KEVIN to pOM2 (Orsiro 3.0 x 22mm) per cardiac cath 03/19/21 Surgical History: no surgical history, - - Commended in the [facility] Social History - Smoking History Smoking Status: Former smoker - not smoked in 50 years. 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 Recreational Activities: I am able to engage in all my recreational activities Social Environment - Status Marital Status: - Children How many children do you have?: 3 Do any of your children live nearby?: Yes - Safety Do you feel safe in your surroundings?: Yes - Assistance Do you need any assistance at home?: none Review of Systems - Review of Systems Hints: Right click = Denies (Slash). Left click = Reports ([place]) Review of Present Symptoms: Reports: Shortness of Breath with Exertion - a little bit, Fatigue - still experiencing some fatigue, Heart Arrhythmia/Irregularities - first degree AV block, Appetite - Normal, Appetite - Special Diet - Low fat, low cholesterol, low sodium diet., Sleep - Normal. Denies: Shortness of Breath at Rest, Angina, Dizziness/Lightheadedness, Sexual Changes - Pain Is Patient Pain Free?: No Pain Location: other - some tenderness remains at the site of cath (radial and right groin) Pain Level: 5/10 - does not interfer with his normal daily activity. 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 - Blood Cholesterol/Lipids Total Cholesterol (mg/dL) Goal = less than 200 mg/dL: 160 - 03/19/2021 HDL Cholesterol (mg/dL) Goal = less than 40 mg/dL: 36 LDL Cholesterol (mg/dL) Goal = less than 70 mg/dL: 99 Triglycerides (mg/dL) Goal = less than 150 mg/dL: 126 - Obesity Height: 5 ft 10 in Weight:: 242 lb 11.2 oz Weight in Pounds: 242.7 lbs Weight Source: Standing Scale Body Mass Index (BMI): 34.8 Nutritional Referral for Obesity: Yes - Physical Inactivity Physical Inactivity: Reg Exercise 30 min/day - previous to incident was walking regularly, just now getting back to normal walking. - Risk Stratification Risk Guidelines: Lowest Risk: Risk Factor for Smoking, Risk Factor for Dysl ipidemia, Risk Factor for Diabetes, Risk Factor for Sedentary Lifestyle, Risk Factor for Depression, Moderate Risk: Risk Factor for Hypertension, Highest Risk: Risk Factor for Obesity Motivation - Motivation to Participate On a scale of 1 to 10, how prepared are you to commit to attending program?: 10 What do you see as barriers to successfully being able to complete the program?: not to my knowledge What do you see as the benefits of succesfully completing the program? In other words, what do you hope to get out of participating in the program?: better life quality Are there issues you are dealing with that will interfere with completing the program?: none Do you have a spouse or signficant other, family or friends who will help support you to complete the program?: yes
[2021-04-11 10:13] VITALS: BP 134/67; BMI 34.8
[2021-04-11 10:31] VITALS: BP 134/67; PULSE 78; RESP 18; TEMP 36.4; O2SAT 97; BMI 34.8
== END ==
PROVIDERS: Referring Provider Internal Medicine Cardiovascular Disease; Visit Provider Internal Medicine Cardiovascular Disease
DX: I25.10 Atherosclerotic heart disease of native coronary artery without angina pectoris (principal); Z86.79 Personal history of other diseases of the circulatory system; Z68.34 Body mass index [BMI] 34.0-34.9, adult

== ENCOUNTER 2021-04-25 09:15 | Outpatient (RCR) | payer MEDICARE, OTHER, SELFPAY ==
[2021-04-11 10:13] VITALS: BMI 34.8
[2021-04-11 10:31] VITALS: BMI 34.8
== END 2021-04-28 23:59 ==
LOC: CR 09:15
PROVIDERS: Referring Provider Internal Medicine Cardiovascular Disease; Visit Provider Internal Medicine Cardiovascular Disease
DX: I25.10 Atherosclerotic heart disease of native coronary artery without angina pectoris (principal); Z95.5 Presence of coronary angioplasty implant and graft
CPT/HCPCS: 93798

== ENCOUNTER 2021-05-28 08:30 | Outpatient (RCR) | payer SELFPAY ==
[2021-04-11 10:13] VITALS: BMI 34.8
[2021-04-11 15:30] VITALS: BMI 34.8
[2021-05-12 07:31] VITALS: BMI 34.8
== END 2021-05-28 23:59 ==
LOC: NS 08:30
PROVIDERS: Visit Provider Internal Medicine Cardiovascular Disease
DX: Z71.3 Dietary counseling and surveillance (principal); I25.10 Atherosclerotic heart disease of native coronary artery without angina pectoris; I10 Essential (primary) hypertension; Z68.34 Body mass index [BMI] 34.0-34.9, adult; Z86.79 Personal history of other diseases of the circulatory system
CPT/HCPCS: 97802; 97803

== ENCOUNTER 2021-05-28 09:15 | Outpatient (RCR) | payer MEDICARE, OTHER, SELFPAY ==
[2021-04-11 10:13] VITALS: BMI 34.8
[2021-04-11 15:30] VITALS: BMI 34.8
--- NOTE | 2021-05-12 07:23 | PCM.CR.ITP ---
Diagnosis Exercise - 30-day Assessment - Visit Date of Eval: 05/12/21 Session #:: 11 - Physician Prescribed Exercise Modalities: Treadmill, Rower, Airdyne Intensity: 60-80% of age predicted maximum heart rate reserve Current METSs:: 4.0 Target Heart Rate:: 90-118 Current RPE:: 12-13 Maximum Excercise HR:: 108 Resting Blood Pressure: 126/50 Maximum Exercise Blood Pressure: 142/58 EKG Type: NSR to sinus tach first degree AV block, occasional PVCs - Outcomes & Goals Goals:: Verbalizes understanding of THR, RPE & goal METS by session 6, Documents in home exercise log/reports 30 min aerobic 5 day/wk by DC, Demonstrates accurate pulse taking by DC - Intervention & Plan Exercise Program Goals: Instruct on personal THR & RPE, Instruct on MET level & personal MET goal, Show patient to take own pulse /validate performance until accurate, Instruct on home exercise - 30-day Reassessments 30 day Reassessments:: Progressing - Physical Activity Home Exercise Physical Activity - Home Exercise: Safe Exercise, Warm-up, Self-monitoring, Cool-Down, Home Exercise > 30 min Daily, Sitting Time <3 hours/daily - Outcomes & Goals Outcomes/Goals: Demonstrates correct Warm-up/exercise Cool-Down (S3) if = 2.5 METs, Verbalizes symptoms of exercise intolerance by Session 3 (S3), Demonstrate safe equipment use (S3) & follows exercise prescrition (6) - Intervention & Plan Plan/Intervention: Instruct warm-up & cool-down if exercising at > 2 METs, Instruct on symptoms of exercise intolerance & actions to take, Instruct & monitor on saf, Assess intial functional capacity & safety risk - 30-day Reassessments 30 day Reassessments:: Progressing Nutrition - Initial Assessment Nutrition - 30-Day Assessment - Program Goals Nutrition Program Goals: LDL <100 optimal. 100 - 129 Near optimal. 130 - 159 Borderline High. 160 - 189 High. Total Cholesterol <200 desirable. 200 - 239 Borderline High. >/= 240 High. HDL < 40 Low >/=60 High. Triglycerides <150 desirable. <199 optimal. VlDL 5 - 40. HgbA1C <7%. BMI <25 Patient has diagnosis of Hyperlipidemia (ICD E78)?: Yes - Visit Date of Assessment:: 05/12/21 Session #:: 11 - Cholesterol/Lipids Triglycerides (mg/dL): 126 - 03/20/2021 Total Cholesterol (mg/dL): 160 LDL Cholesterol (mg/dL): 99 HDL Cholesterol (mg/dL): 36 Determine presence & major risk factors that modify LDL goal: Hypertension or hypertensive medication, Low HDL cholesterol <40 mg/dL*, Family history of premature CHD in Male < 55 years: female <65 yearsFa, Age men > 45 years; women >/= 55 years Outcomes/Goals: Pt IDs own risk factors & lifestyle modifications by Session 10, Verbalizes symptoms of angina & response by session 3., Pt independently manages Intervention/Plan: Instruct on personal lipid levels & lipid goals/NCEP guidelines, Instruct on cholesterol Referral to dietitian:: No - Scheduled on 05/14/2021 30-day Reassessments:: Progressing - Diabetes (Other Core Measures) Diabetes Type: Not Applicable - Pre-Diabetic Status - Weight Mgt (Other Care) Not Applicable: No Height: 5 ft 10 in Weight:: 243 lb BMI: 34.8 Diagnosis Overweight/Obesity BMI> 30% ICD-10 E66: Yes Diagnosis High BMI/Morbid Obesity BMI> 35% ICD-10 Z68: No Outcomes/Goals: Pt sets, maintains & shows weight loss goal & trend during rehab Intervention/Plan: Instruct on ideal BMI & set weight loss goal w/patient, Assist pt to ID & incorporate diet changes for weight loss by S9, Refer to Structured Weight Loss program as appropriate, Encourage goal of using 250-300dcal per session for weight loss 30 day Reassessments:: Progressing - Healthy Eating Habits Will attend diet classes:: Yes Outcomes/Goals:: Consume diet rich in vegs,fruits,whole grain/high fiber,fish,lean meat, Limit sat/trans fats,cholesterol & added salts & sugars Intervention/Plan:: Assess current eating habits 30-day Reassessments:: Progressing Nutrition - 60-Day Assessment Nutrition - 90-Day Assessment Nutrition - Final Assessment Medical - Initial Assessment Medical- 30-Day Assessment - Visit Date of Eval: 05/12/21 Session #:: 11 - Medication Compliance Preventative Medication(s):: Aspirin, Ticagrelor/P2Y12 inhibitor, Statin/lipid, Beta yennifer - increased to 100mg H/O mental health issues: depression, anxiety, or addiction?: No Doesn?t believe in the benefits of treatment?: No Believes medications are unnecessary or harmful?: No Has a concern about medication side effects?: No Expresses concern over the cost of medications?: No Outcomes/Goals: Verbalizes medications,desired effect & common side effects @ DC, Pt self-reports following medication regimen, Keeps card in wallet w/medications listed by DC Interventions/plans: Instruct on medication effects & side effects, Review medication list w/patient every two weeks, Instruct importance of taking meds as ordered & assist problem solving 30-day Reassessments:: Progressing - Tobacco Use Tobacco Use: Non-smoker - Hypertension Hypertension Diagnosis:: Hypertension ICD-10 I10 Resting Blood Pressure:: 126/50 [place] [employer] Hypertension Guidelines: [place] [employer] Hypertension Guidelines. Normal BP Less than 120/80. Elevated BP 120/80. Hypertension Stage 1: BP 130-139/80-89. Hypertesnion Stage 2: BP 140 or higher/90 or higher. Hypertension Crisis: BP higher than 180/120 Peak Exercise Blood Pressure:: 142/58 Outcomes/Goals: Able to verbalize/achieve optimal blood pressure <130/80, Incorporates diet changes & exercise for blood pressure control by DC Interventions/plan: Instruct on optimal blood pressure, hypertension & medications, Instruct on effects of sodium, alcohol, stress, exercise &hypertension 30 day Reassessments:: Progressing - Tobacco Cessation Referral Smoking Cessation Referral:: No Individual Education/Counseling:: No Education Schedule Given:: Yes Medical- 60-Day Assessment Medical- 90-Day Assessment Medical - Final Assessment Psychosocial - Initial Assess Psychosocial - 30-Day Assess - VIsit Date of Eval: 05/12/21 Session #:: 11 Not Applicable: Yes History of previous Mental disease:: No - Psychosocial Test Tool Used:: PHQ-9 Questionnaire phq-9 Severity: Severity. 1-4 Minimal Depression. 5-9 Mild Depression. 10-14 Moderate Depression. 15-19 Moderately Sever Depression. 20-27 Severe Depression. Rule: - Referral to Behavioral Health PS - Interventions: Yes Attend Stress Management Classes, No Referral to Behavioral Health if PHQ-9 score >9:, No Referral to [facility], No Referral to Physician if PHQ-9 if score is 5-9: - Outcomes/Goals: See list Psychosocial Outcomes/Goals:: ID's personal stressors & 2 strategies to manage stress by discharge - Intervention/Plan: See List Interventions/Plan:: Assess stressors,coping strategies & signs of derpression on admission, Instruct/assist pt to develop coping & personal stress Mgt strategies, Instruct patient to recognize signs & symptoms of depression, Instruct patient to recog - 30-day Reassessments: 30 day Reassessments:: Progressing Psychosocial - 60-Day Assess Psychosocial - 90-Day Assess Psychosocial - Final Assessmen Patient Health Questionnaire 30-Day Re-eval Assessment 1. Little interest or pleasure in doing things: Not at all 2. Feeling down, depressed, or hopeless: Not at all 3. Trouble falling or staying asleep, or sleeping too much: More than half the days 4. Feeling tired or having little energy: Several days 5. Poor appetite or overeating: Not at all 6. Feeling bad about yourself -- or that you are a failure or have let yourself or your family down: Not at all 7. Trouble concentrating on things, such as reading the newspaper or watching television: Not at all 8. Moving or speaking so slowly that other people could have noticed. Or the opposite - being so fidgety or restless that you have been moving around a lot more than usual: Not at all 9. Thoughts that you would be better off , or of hurting yourself in some way: Not at all How difficult have these problems made it for you to do your work, take care of things at home, or get along with other people?: Not difficult at all Total Score: 3 Self-Efficacy 30-Day Re-eval Assessment We would like to know how confident you are in doing certain activities. Please select your confidence level for:: Select your confidence level for the following using the scale 1-10 where 1 is not at all confident and 10 is totally confident. Your score is the average of all 6 responses. Fatigue: How confident are you that you can keep the fatigue caused by your disease from interfering with the things you want to do? Select Number: 10 Physical Discomfort or Pain: How confident are you that you can keep the physical discomfort or pain of your disease from interfering with the things you want to do? Select Number: 10 Emotional Distress: How confident are you that you can keep the emotional distress caused by your disease from interfering with the things you want to do? Select Number: 10 Other Symptoms or Health Problems: How confident are you that you can keep other symptoms or health problems from interfering with the things you want to do? Select Number: 10 Different Tasks and Activities: How confident are you that you can do the different tasks and activities needed to manage your health condition so as to reduce your need to see a doctor? Select Number: 10 Medication: How confident are you that you can do things other than just taking medication to reduce how much your illness affects your everyday life? Select Number: 9 Total Score:: 9 Nutrition Survey
[2021-05-12 07:31] VITALS: BP 126/50; BP 142/58; BMI 34.8
== END 2021-05-28 23:59 ==
LOC: CR 09:15
PROVIDERS: Referring Provider Internal Medicine Cardiovascular Disease; Visit Provider Internal Medicine Cardiovascular Disease
DX: I25.10 Atherosclerotic heart disease of native coronary artery without angina pectoris (principal); Z95.5 Presence of coronary angioplasty implant and graft
CPT/HCPCS: 93798

== ENCOUNTER 2021-06-18 09:03 | Outpatient (RCR) | payer SELFPAY ==
[2021-04-11 15:30] VITALS: BMI 34.8
[2021-05-12 07:31] VITALS: BMI 34.8
[2021-06-11 06:56] VITALS: BMI 34.9
== END 2021-06-28 23:59 ==
LOC: NS 09:03
PROVIDERS: Visit Provider Internal Medicine Cardiovascular Disease
DX: I25.10 Atherosclerotic heart disease of native coronary artery without angina pectoris (principal); Z68.34 Body mass index [BMI] 34.0-34.9, adult; Z86.79 Personal history of other diseases of the circulatory system
CPT/HCPCS: 97803

== ENCOUNTER 2021-06-27 09:15 | Outpatient (RCR) | payer MEDICARE, OTHER, SELFPAY ==
[2021-04-11 15:30] VITALS: BMI 34.8
[2021-05-12 07:31] VITALS: BMI 34.8
[2021-05-29 00:30] VITALS: BP 126/50; BP 142/58
--- NOTE | 2021-06-11 06:48 | PCM.CR.ITP ---
Diagnosis Exercise - 60-day Assessment - Visit Date of Eval: 06/11/21 Session #:: 22 - Patient has missed two scheduled sessions - Physician Prescribed Exercise Modalities: Treadmill, Rower, Airdyne Frequency: 3x/week for 12 weeks [36 sessions] Intensity: 60-80% of age predicted maximum heart rate reserve Current METSs:: 4.5 Target Heart Rate:: 90-118 Current RPE:: 12-13 Maximum Excercise HR:: 103 Resting Blood Pressure: 124/60 Maximum Exercise Blood Pressure: 144/62 EKG Type: NSR to sinus tach w/occasional PVCs - Outcomes & Goals Goals:: Verbalizes understanding of THR, RPE & goal METS by session 6, Documents in home exercise log/reports 30 min aerobic 5 day/wk by DC, Demonstrates accurate pulse taking by DC - Intervention & Plan Exercise Program Goals: Instruct on personal THR & RPE, Instruct on MET level & personal MET goal, Show patient to take own pulse /validate performance until accurate, Instruct on home exercise - 30-day Reassessments 30 day Reassessments:: Progressing - Physical Activity Home Exercise Physical Activity - Home Exercise: Safe Exercise, Warm-up, Self-monitoring, Cool-Down, Home Exercise > 30 min Daily, Sitting Time <3 hours/daily - Outcomes & Goals Outcomes/Goals: Demonstrates correct Warm-up/exercise Cool-Down (S3) if = 2.5 METs, Verbalizes symptoms of exercise intolerance by Session 3 (S3), Demonstrate safe equipment use (S3) & follows exercise prescrition (6) - Intervention & Plan Plan/Intervention: Instruct warm-up & cool-down if exercising at > 2 METs, Instruct on symptoms of exercise intolerance & actions to take, Instruct & monitor on saf, Assess intial functional capacity & safety risk - 30-day Reassessments 30 day Reassessments:: Progressing Nutrition - Initial Assessment Nutrition - 30-Day Assessment Nutrition - 60-Day Assessment - Program Goals Nutrition Program Goals: LDL <100 optimal. 100 - 129 Near optimal. 130 - 159 Borderline High. 160 - 189 High. Total Cholesterol <200 desirable. 200 - 239 Borderline High. >/= 240 High. HDL < 40 Low >/=60 High. Triglycerides <150 desirable. <199 optimal. VlDL 5 - 40. HgbA1C <7%. BMI <25 Patient has diagnosis of Hyperlipidemia (ICD E78)?: Yes - Visit Date of Assessment:: 06/11/21 Session #:: 22 - Cholesterol/Lipids Determine presence & major risk factors that modify LDL goal: Hypertension or hypertensive medication, Family history of premature CHD in Male < 55 years: female <65 yearsFa, Age men > 45 years; women >/= 55 years Outcomes/Goals: Pt IDs own risk factors & lifestyle modifications by Session 10, Verbalizes symptoms of angina & response by session 3., Pt independently manages Intervention/Plan: Instruct on personal lipid levels & lipid goals/NCEP guidelines, Instruct on cholesterol Referral to dietitian:: No - Met with Nutritional Services 05/14/2021 30-day Reassessments:: Progressing - Diabetes (Other Core Measures) Diabetes Type: Not Applicable - Weight Mgt (Other Care) Not Applicable: No Height: 5 ft 10 in Weight:: 244 lb BMI: 34.9 Diagnosis Overweight/Obesity BMI> 30% ICD-10 E66: Yes Diagnosis High BMI/Morbid Obesity BMI> 35% ICD-10 Z68: Yes Outcomes/Goals: Pt sets, maintains & shows weight loss goal & trend during rehab Intervention/Plan: Instruct on ideal BMI & set weight loss goal w/patient, Assist pt to ID & incorporate diet changes for weight loss by S9, Encourage goal of using 250-300dcal per session for weight loss 30 day Reassessments:: Progressing - Healthy Eating Habits Will attend diet classes:: Yes Outcomes/Goals:: Consume diet rich in vegs,fruits,whole grain/high fiber,fish,lean meat, Limit sat/trans fats,cholesterol & added salts & sugars Intervention/Plan:: Assess current eating habits 30-day Reassessments:: Progressing Nutrition - 90-Day Assessment Nutrition - Final Assessment Medical - Initial Assessment Medical- 30-Day Assessment Medical- 60-Day Assessment - Visit Date of Eval: 06/11/21 Session #:: 22 - Medication Compliance Preventative Medication(s):: Aspirin, Ticagrelor/P2Y12 inhibitor, Statin/lipid, Beta yennifer Doesn?t believe in the benefits of treatment?: No Believes medications are unnecessary or harmful?: No Has a concern about medication side effects?: No Expresses concern over the cost of medications?: No Outcomes/Goals: Verbalizes medications,desired effect & common side effects @ DC, Pt self-reports following medication regimen, Keeps card in wallet w/medications listed by DC Interventions/plans: Instruct on medication effects & side effects, Review medication list w/patient every two weeks, Instruct importance of taking meds as ordered & assist problem solving 30-day Reassessments:: Progressing - Tobacco Use Tobacco Use: Non-smoker - Hypertension Hypertension Diagnosis:: Hypertension ICD-10 I10 Resting Blood Pressure:: 124/60 [place] [employer] Hypertension Guidelines: [place] [employer] Hypertension Guidelines. Normal BP Less than 120/80. Elevated BP 120/80. Hypertension Stage 1: BP 130-139/80-89. Hypertesnion Stage 2: BP 140 or higher/90 or higher. Hypertension Crisis: BP higher than 180/120 Peak Exercise Blood Pressure:: 144/62 Outcomes/Goals: Able to verbalize/achieve optimal blood pressure <130/80, Incorporates diet changes & exercise for blood pressure control by DC Interventions/plan: Instruct on optimal blood pressure, hypertension & medications, Instruct on effects of sodium, alcohol, stress, exercise &hypertension 30 day Reassessments:: Progressing - Tobacco Cessation Referral Smoking Cessation Referral:: No Individual Education/Counseling:: No Education Schedule Given:: Yes Medical- 90-Day Assessment Medical - Final Assessment Psychosocial - Initial Assess Psychosocial - 30-Day Assess Psychosocial - 60-Day Assess - VIsit Date of Eval: 06/11/21 Session #:: 22 Not Applicable: Yes History of previous Mental disease:: No - Psychosocial Test Tool Used:: PHQ-9 Questionnaire phq-9 Severity: Severity. 1-4 Minimal Depression. 5-9 Mild Depression. 10-14 Moderate Depression. 15-19 Moderately Sever Depression. 20-27 Severe Depression. Rule: - Referral to Behavioral Health PS - Interventions: Yes Attend Stress Management Classes, No Referral to Behavioral Health if PHQ-9 score >9:, No Referral to [facility], No Referral to Physician if PHQ-9 if score is 5-9: - Outcomes/Goals: See list Psychosocial Outcomes/Goals:: ID's personal stressors & 2 strategies to manage stress by discharge - Intervention/Plan: See List Interventions/Plan:: Assess stressors,coping strategies & signs of derpression on admission, Instruct/assist pt to develop coping & personal stress Mgt strategies, Instruct patient to recognize signs & symptoms of depression, Instruct patient to recog - 30-day Reassessments: 30 day Reassessments:: Progressing Psychosocial - 90-Day Assess Psychosocial - Final Assessmen Patient Health Questionnaire 60-Day Re-eval Assessment 1. Little interest or pleasure in doing things: Not at all 2. Feeling down, depressed, or hopeless: Not at all 3. Trouble falling or staying asleep, or sleeping too much: Not at all 4. Feeling tired or having little energy: Not at all 5. Poor appetite or overeating: Not at all 6. Feeling bad about yourself -- or that you are a failure or have let yourself or your family down: Not at all 7. Trouble concentrating on things, such as reading the newspaper or watching television: Not at all 8. Moving or speaking so slowly that other people could have noticed. Or the opposite - being so fidgety or restless that you have been moving around a lot more than usual: Not at all 9. Thoughts that you would be better off , or of hurting yourself in some way: Not at all How difficult have these problems made it for you to do your work, take care of things at home, or get along with other people?: Not difficult at all Total Score: 0 Self-Efficacy 60-Day Re-eval Assessment We would like to know how confident you are in doing certain activities. Please select your confidence level for:: Select your confidence level for the following using the scale 1-10 where 1 is not at all confident and 10 is totally confident. Your score is the average of all 6 responses. Fatigue: How confident are you that you can keep the fatigue caused by your disease from interfering with the things you want to do? Select Number: 10 Physical Discomfort or Pain: How confident are you that you can keep the physical discomfort or pain of your disease from interfering with the things you want to do? Select Number: 10 Emotional Distress: How confident are you that you can keep the emotional distress caused by your disease from interfering with the things you want to do? Select Number: 10 Other Symptoms or Health Problems: How confident are you that you can keep other symptoms or health problems from interfering with the things you want to do? Select Number: 10 Different Tasks and Activities: How confident are you that you can do the different tasks and activities needed to manage your health condition so as to reduce your need to see a doctor? Select Number: 10 Medication: How confident are you that you can do things other than just taking medication to reduce how much your illness affects your everyday life? Select Number: 10 Total Score:: 10 Nutrition Survey
[2021-06-11 06:56] VITALS: BP 124/60; BP 144/62; BMI 34.9
== END 2021-06-28 23:59 ==
LOC: CR 09:15
PROVIDERS: Referring Provider Internal Medicine Cardiovascular Disease; Visit Provider Internal Medicine Cardiovascular Disease
DX: Z95.5 Presence of coronary angioplasty implant and graft (principal); I25.10 Atherosclerotic heart disease of native coronary artery without angina pectoris
CPT/HCPCS: 93798

== ENCOUNTER 2021-07-16 08:53 | Outpatient (RCR) | payer SELFPAY ==
[2021-04-11 15:30] VITALS: BMI 34.8
[2021-06-11 06:56] VITALS: BMI 34.9
[2021-07-11 09:10] VITALS: BMI 34.9
== END 2021-07-29 23:59 ==
LOC: NS 08:53
PROVIDERS: Visit Provider Internal Medicine Cardiovascular Disease
DX: Z71.3 Dietary counseling and surveillance (principal); I25.10 Atherosclerotic heart disease of native coronary artery without angina pectoris; Z68.34 Body mass index [BMI] 34.0-34.9, adult; Z86.79 Personal history of other diseases of the circulatory system
CPT/HCPCS: 97803

== ENCOUNTER 2021-07-18 09:30 | Outpatient (RCR) | payer MEDICARE, OTHER, SELFPAY ==
[2021-04-11 15:30] VITALS: BMI 34.8
[2021-06-11 06:56] VITALS: BMI 34.9
[2021-06-29 00:31] VITALS: BP 124/60; BP 144/62
--- NOTE | 2021-07-11 08:57 | PCM.CR.ITP ---
Diagnosis - General Information Admitting Diagnosis: PCI with coronary stent Exercise - 90-day Assessment - Visit Date of Eval: 07/11/21 Session #:: 34 - Physician Prescribed Exercise Modalities: Treadmill, Rower, NuStep Frequency: 3x/week for 12 weeks [36 sessions] Intensity: 60-80% of age predicted maximum heart rate reserve Current METSs:: 5.5 Target Heart Rate:: 90-118 Current RPE:: 13-14 Maximum Excercise HR:: 115 Resting Blood Pressure: 130/80 Maximum Exercise Blood Pressure: 144/64 EKG Type: NSR to sinus tachy with PVC's - Outcomes & Goals Goals:: Verbalizes understanding of THR, RPE & goal METS by session 6, Documents in home exercise log/reports 30 min aerobic 5 day/wk by DC, Demonstrates accurate pulse taking by DC, Other additional outcome/goals: see below - Intervention & Plan Exercise Program Goals: Instruct on personal THR & RPE, Instruct on MET level & personal MET goal, Show patient to take own pulse /validate performance until accurate, Instruct on home exercise, Other additional plan/int - 30-day Reassessments 30 day Reassessments:: Progressing - Physical Activity Home Exercise Physical Activity - Home Exercise: Safe Exercise, Warm-up, Self-monitoring, Cool-Down, Home Exercise > 30 min Daily, Sitting Time <3 hours/daily - Outcomes & Goals Outcomes/Goals: Demonstrates correct Warm-up/exercise Cool-Down (S3) if = 2.5 METs, Verbalizes symptoms of exercise intolerance by Session 3 (S3), Demonstrate safe equipment use (S3) & follows exercise prescrition (6), Other: See below - 30-day Reassessments 30 day Reassessments:: Progressing Nutrition - Initial Assessment Nutrition - 30-Day Assessment Nutrition - 60-Day Assessment Nutrition - 90-Day Assessment - Program Goals Nutrition Program Goals: LDL <100 optimal. 100 - 129 Near optimal. 130 - 159 Borderline High. 160 - 189 High. Total Cholesterol <200 desirable. 200 - 239 Borderline High. >/= 240 High. HDL < 40 Low >/=60 High. Triglycerides <150 desirable. <199 optimal. VlDL 5 - 40. HgbA1C <7%. BMI <25 Patient has diagnosis of Hyperlipidemia (ICD E78)?: Yes - Visit Date of Assessment:: 07/11/21 Session #:: 34 - Cholesterol/Lipids Determine presence & major risk factors that modify LDL goal: Hypertension or hypertensive medication, Low HDL cholesterol <40 mg/dL*, Family history of premature CHD in Male < 55 years: female <65 yearsFa, Age men > 45 years; women >/= 55 years Outcomes/Goals: Pt IDs own risk factors & lifestyle modifications by Session 10, Verbalizes symptoms of angina & response by session 3., Pt independently manages, Other Additional Outcomes/Goals: Intervention/Plan: Advocate for lipid panel cholesterol medication if applicable, Instruct on personal lipid levels & lipid goals/NCEP guidelines, Instruct on cholesterol, Other additional plan/int Referral to dietitian:: No 30-day Reassessments:: Progressing - Diabetes (Other Core Measures) Diabetes Type: Not Applicable - Weight Mgt (Other Care) Height: 5 ft 10 in Weight:: 110.677 kg BMI: 34.9 Diagnosis Overweight/Obesity BMI> 30% ICD-10 E66: Yes Diagnosis High BMI/Morbid Obesity BMI> 35% ICD-10 Z68: Yes Outcomes/Goals: Pt sets, maintains & shows weight loss goal & trend during rehab, Other additional outcomes/goals Intervention/Plan: Instruct on ideal BMI & set weight loss goal w/patient, Assist pt to ID & incorporate diet changes for weight loss by S9, Refer to Structured Weight Loss program as appropriate, Encourage goal of using 250-300dcal per session for weight loss, Other additional plan/interventions 30 day Reassessments:: Progressing - Healthy Eating Habits Will attend diet classes:: Yes Outcomes/Goals:: Consume diet rich in vegs,fruits,whole grain/high fiber,fish,lean meat, Limit sat/trans fats,cholesterol & added salts & sugars, Other additional outcome/goals: Intervention/Plan:: Assess current eating habits, Other Additional plan/interventions 30-day Reassessments:: Progressing - Education Gave educational materials for:: Signs & symptoms of hypoglycemia, Signs & symptoms of hyperglycemia, Relate diabetes to coronary artery disease, Healthy eating Nutrition - Final Assessment Medical - Initial Assessment Medical- 30-Day Assessment Medical- 60-Day Assessment Medical- 90-Day Assessment - Visit Date of Eval: 07/11/21 Session #:: 34 - Medication Compliance Preventative Medication(s):: Aspirin, Ticagrelor/P2Y12 inhibitor, Statin/lipid, Beta yennifer H/O mental health issues: depression, anxiety, or addiction?: No Doesn?t believe in the benefits of treatment?: No Believes medications are unnecessary or harmful?: No Has a concern about medication side effects?: No Expresses concern over the cost of medications?: No Outcomes/Goals: Verbalizes medications,desired effect & common side effects @ DC, Pt self-reports following medication regimen, Keeps card in wallet w/medications listed by DC, Other additional outcome/goals: Interventions/plans: Instruct on medication effects & side effects, Review medication list w/patient every two weeks, Instruct importance of taking meds as ordered & assist problem solving, Other additional 30-day Reassessments:: Progressing - Tobacco Use Tobacco Use: Non-smoker - Hypertension Hypertension Diagnosis:: Hypertension ICD-10 I10 Resting Blood Pressure:: 130/80 [employer] Hypertension Guidelines: [place] [employer] Hypertension Guidelines. Normal BP Less than 120/80. Elevated BP 120/80. Hypertension Stage 1: BP 130-139/80-89. Hypertesnion Stage 2: BP 140 or higher/90 or higher. Hypertension Crisis: BP higher than 180/120 Outcomes/Goals: Able to verbalize/achieve optimal blood pressure <130/80, Incorporates diet changes & exercise for blood pressure control by DC, Other additional outcomes/goals Interventions/plan: Instruct on optimal blood pressure, hypertension & medications, Instruct on effects of sodium, alcohol, stress, exercise &hypertension, Other additional plan/interventions 30 day Reassessments:: Progressing - Tobacco Cessation Referral Smoking Cessation Referral:: No Individual Education/Counseling:: No Education Schedule Given:: Yes Medical - Final Assessment Psychosocial - Initial Assess Psychosocial - 30-Day Assess Psychosocial - 60-Day Assess Psychosocial - 90-Day Assess - VIsit Date of Eval: 07/11/21 Session #:: 34 History of previous Mental disease:: No - Outcomes/Goals: See list Psychosocial Outcomes/Goals:: ID's personal stressors & 2 strategies to manage stress by discharge, Other Additional outcome/goals: - Intervention/Plan: See List Interventions/Plan:: Assess stressors,coping strategies & signs of derpression on admission, Instruct/assist pt to develop coping & personal stress Mgt strategies, Refer to Behavioral Health if appropriate, Refer to Physician if appropriate, Instruct patient to recognize signs & symptoms of depression, Instruct patient to recog, Other additional plan/intervention - 30-day Reassessments: 30 day Reassessments:: Progressing Psychosocial - Final Assessmen Patient Health Questionnaire 90-Day Re-eval Assessment 1. Little interest or pleasure in doing things: Not at all 2. Feeling down, depressed, or hopeless: Not at all 3. Trouble falling or staying asleep, or sleeping too much: Not at all 4. Feeling tired or having little energy: Not at all 5. Poor appetite or overeating: Not at all 6. Feeling bad about yourself -- or that you are a failure or have let yourself or your family down: Not at all 7. Trouble concentrating on things, such as reading the newspaper or watching television: Not at all 8. Moving or speaking so slowly that other people could have noticed. Or the opposite - being so fidgety or restless that you have been moving around a lot more than usual: Not at all 9. Thoughts that you would be better off , or of hurting yourself in some way: Not at all How difficult have these problems made it for you to do your work, take care of things at home, or get along with other people?: Not difficult at all Total Score: 0 Self-Efficacy 90-Day Re-eval Assessment We would like to know how confident you are in doing certain activities. Please select your confidence level for:: Select your confidence level for the following using the scale 1-10 where 1 is not at all confident and 10 is totally confident. Your score is the average of all 6 responses. Fatigue: How confident are you that you can keep the fatigue caused by your disease from interfering with the things you want to do? Select Number: 10 Physical Discomfort or Pain: How confident are you that you can keep the physical discomfort or pain of your disease from interfering with the things you want to do? Select Number: 10 Emotional Distress: How confident are you that you can keep the emotional distress caused by your disease from interfering with the things you want to do? Select Number: 10 Other Symptoms or Health Problems: How confident are you that you can keep other symptoms or health problems from interfering with the things you want to do? Select Number: 10 Different Tasks and Activities: How confident are you that you can do the different tasks and activities needed to manage your health condition so as to reduce your need to see a doctor? Select Number: 10 Medication: How confident are you that you can do things other than just taking medication to reduce how much your illness affects your everyday life? Select Number: 10 Total Score:: 10 Nutrition Survey
[2021-07-11 09:10] VITALS: BP 130/80; BMI 34.9
== END 2021-07-29 23:59 ==
LOC: CR 09:30
PROVIDERS: Referring Provider Internal Medicine Cardiovascular Disease; Visit Provider Internal Medicine Cardiovascular Disease
DX: Z95.5 Presence of coronary angioplasty implant and graft (principal); I25.10 Atherosclerotic heart disease of native coronary artery without angina pectoris
CPT/HCPCS: 93798

== ENCOUNTER 2021-08-27 10:00 | Outpatient (RCR) | payer SELFPAY ==
[2021-07-11 09:10] VITALS: BMI 34.9
[2021-07-30 00:20] VITALS: BMI 34.8
== END 2021-08-28 23:59 ==
LOC: NS 10:00
PROVIDERS: Visit Provider Internal Medicine Cardiovascular Disease
DX: Z71.3 Dietary counseling and surveillance (principal); I25.10 Atherosclerotic heart disease of native coronary artery without angina pectoris; Z68.34 Body mass index [BMI] 34.0-34.9, adult; Z86.79 Personal history of other diseases of the circulatory system
CPT/HCPCS: 97803

== ENCOUNTER 2021-08-28 08:00 | Outpatient (RCR) | payer SELFPAY ==
[2021-07-11 09:10] VITALS: BMI 34.9
== END 2021-08-28 23:59 ==
LOC: CR 08:00
PROVIDERS: Visit Provider Internal Medicine Cardiovascular Disease
DX: Z00.00 Encounter for general adult medical examination without abnormal findings (principal)

== ENCOUNTER 2021-09-16 09:54 | Outpatient (RCR) | payer SELFPAY ==
[2021-07-11 09:10] VITALS: BMI 34.9
[2021-08-29 00:15] VITALS: BMI 34.8
== END 2021-09-28 23:59 ==
LOC: NS 09:54
PROVIDERS: Visit Provider Internal Medicine Cardiovascular Disease
DX: Z71.3 Dietary counseling and surveillance (principal); I25.10 Atherosclerotic heart disease of native coronary artery without angina pectoris; Z68.34 Body mass index [BMI] 34.0-34.9, adult; Z86.79 Personal history of other diseases of the circulatory system
CPT/HCPCS: 97803

== ENCOUNTER 2021-09-25 08:00 | Outpatient (RCR) | payer SELFPAY ==
[2021-07-11 09:10] VITALS: BMI 34.9
== END 2021-09-28 23:59 ==
LOC: CR 08:00
PROVIDERS: Referring Provider Internal Medicine Cardiovascular Disease; Visit Provider Internal Medicine Cardiovascular Disease
DX: Z00.00 Encounter for general adult medical examination without abnormal findings (principal)

== ENCOUNTER 2021-10-27 10:00 | Outpatient (RCR) | payer MEDICARE, OTHER, SELFPAY ==
[2021-07-11 09:10] VITALS: BMI 34.9
[2021-09-29 00:12] VITALS: BMI 34.8
== END 2021-10-28 23:59 ==
LOC: DC 10:00
PROVIDERS: Visit Provider Internal Medicine Cardiovascular Disease
DX: E11.9 Type 2 diabetes mellitus without complications (principal); I25.10 Atherosclerotic heart disease of native coronary artery without angina pectoris; Z86.79 Personal history of other diseases of the circulatory system
CPT/HCPCS: 97802; 97803; G0108

== ENCOUNTER 2021-10-28 08:00 | Outpatient (RCR) | payer SELFPAY ==
[2021-07-11 09:10] VITALS: BMI 34.9
== END 2021-10-28 23:59 ==
LOC: CR 08:00
PROVIDERS: Referring Provider Internal Medicine Cardiovascular Disease; Visit Provider Internal Medicine Cardiovascular Disease
DX: Z00.00 Encounter for general adult medical examination without abnormal findings (principal)

== ENCOUNTER 2021-11-18 13:00 | Outpatient (RCR) | payer MEDICARE, OTHER, SELFPAY ==
[2021-07-11 09:10] VITALS: BMI 34.9
[2021-10-29 00:17] VITALS: BMI 34.8
== END 2021-11-28 23:59 ==
LOC: DC 13:00
PROVIDERS: Visit Provider Internal Medicine Cardiovascular Disease
DX: E11.9 Type 2 diabetes mellitus without complications (principal); I25.10 Atherosclerotic heart disease of native coronary artery without angina pectoris; Z86.79 Personal history of other diseases of the circulatory system
CPT/HCPCS: G0108

== ENCOUNTER 2021-11-27 08:00 | Outpatient (RCR) | payer SELFPAY ==
[2021-07-11 09:10] VITALS: BMI 34.9
== END 2021-11-28 23:59 ==
LOC: CR 08:00
PROVIDERS: Referring Provider Internal Medicine Cardiovascular Disease; Visit Provider Internal Medicine Cardiovascular Disease
DX: Z00.00 Encounter for general adult medical examination without abnormal findings (principal)
CPT/HCPCS: 97803

== ENCOUNTER 2021-12-11 13:53 | Outpatient (RCR) | payer MEDICARE, OTHER, SELFPAY ==
[2021-07-11 09:10] VITALS: BMI 34.9
[2021-11-29 00:17] VITALS: BMI 34.8
== END 2021-12-29 23:59 ==
LOC: DC 13:53
PROVIDERS: Visit Provider Internal Medicine Cardiovascular Disease
DX: E11.9 Type 2 diabetes mellitus without complications (principal); Z71.3 Dietary counseling and surveillance
CPT/HCPCS: G0109

== ENCOUNTER 2021-12-25 08:00 | Outpatient (RCR) | payer SELFPAY ==
[2021-07-11 09:10] VITALS: BMI 34.9
== END 2021-12-29 23:59 ==
LOC: CR 08:00
PROVIDERS: Referring Provider Internal Medicine Cardiovascular Disease; Visit Provider Internal Medicine Cardiovascular Disease
DX: Z51.89 Encounter for other specified aftercare (principal)

== ENCOUNTER 2022-01-15 09:30 | Outpatient (RCR) | payer MEDICARE, OTHER, SELFPAY ==
[2021-07-11 09:10] VITALS: BMI 34.9
[2021-12-30 00:21] VITALS: BMI 34.8
== END 2022-01-26 23:59 ==
LOC: DC 09:30
PROVIDERS: Referring Provider Internal Medicine Cardiovascular Disease; Visit Provider Internal Medicine Cardiovascular Disease
DX: E11.9 Type 2 diabetes mellitus without complications (principal)
CPT/HCPCS: 97803; G0109

== ENCOUNTER 2022-01-20 08:00 | Outpatient (RCR) | payer SELFPAY ==
[2021-07-11 09:10] VITALS: BMI 34.9
== END 2022-01-26 23:59 ==
LOC: CR 08:00
PROVIDERS: Referring Provider Internal Medicine Cardiovascular Disease; Visit Provider Internal Medicine Cardiovascular Disease
DX: Z00.00 Encounter for general adult medical examination without abnormal findings (principal)

== ENCOUNTER 2022-01-29 16:13 | Outpatient (RCR) | payer MEDICARE, OTHER, SELFPAY ==
[2021-07-11 09:10] VITALS: BMI 34.9
[2022-01-27 00:23] VITALS: BMI 34.8
== END 2022-02-26 23:59 ==
LOC: DC 16:13
PROVIDERS: Referring Provider Internal Medicine Cardiovascular Disease; Visit Provider Internal Medicine Cardiovascular Disease
DX: E11.9 Type 2 diabetes mellitus without complications (principal)
CPT/HCPCS: G0109

== ENCOUNTER 2022-02-26 08:00 | Outpatient (RCR) | payer SELFPAY ==
[2021-07-11 09:10] VITALS: BMI 34.9
== END 2022-02-26 23:59 | disposition home or self-care (01) ==
LOC: CR 08:00
PROVIDERS: Referring Provider Internal Medicine Cardiovascular Disease; Visit Provider Internal Medicine Cardiovascular Disease
DX: Z00.00 Encounter for general adult medical examination without abnormal findings (principal)

== ENCOUNTER 2022-03-05 15:58 | Outpatient (RCR) | payer OTHER, MEDICARE, SELFPAY ==
[2021-07-11 09:10] VITALS: BMI 34.9
[2022-02-27 00:24] VITALS: BMI 34.8
== END 2022-03-28 23:59 ==
LOC: DC 15:58
PROVIDERS: Referring Provider Internal Medicine Cardiovascular Disease; Visit Provider Internal Medicine Cardiovascular Disease
DX: E11.9 Type 2 diabetes mellitus without complications (principal)

== ENCOUNTER 2022-03-26 08:00 | Outpatient (RCR) | payer SELFPAY ==
[2021-07-11 09:10] VITALS: BMI 34.9
== END 2022-03-28 23:59 ==
LOC: CR 08:00
PROVIDERS: Referring Provider Internal Medicine Cardiovascular Disease; Visit Provider Internal Medicine Cardiovascular Disease
DX: Z00.00 Encounter for general adult medical examination without abnormal findings (principal)
CPT/HCPCS: G0109

== ENCOUNTER 2022-04-28 08:00 | Outpatient (RCR) | payer SELFPAY ==
[2021-07-11 09:10] VITALS: BMI 34.9
== END 2022-04-28 23:59 ==
LOC: CR 08:00
PROVIDERS: Referring Provider Internal Medicine Cardiovascular Disease; Visit Provider Internal Medicine Cardiovascular Disease
DX: Z00.00 Encounter for general adult medical examination without abnormal findings (principal)

== ENCOUNTER 2022-05-19 08:49 | Outpatient (RCR) | payer SELFPAY ==
[2021-07-11 09:10] VITALS: BMI 34.9
[2022-03-29 00:24] VITALS: BMI 34.8
== END 2022-05-28 23:59 ==
LOC: DC 08:49
PROVIDERS: Referring Provider Internal Medicine Cardiovascular Disease; Visit Provider Internal Medicine Cardiovascular Disease
DX: E11.9 Type 2 diabetes mellitus without complications (principal)
CPT/HCPCS: 97803

== ENCOUNTER 2022-05-28 08:00 | Outpatient (RCR) | payer SELFPAY ==
[2021-07-11 09:10] VITALS: BMI 34.9
== END 2022-05-28 23:59 ==
LOC: CR 08:00
PROVIDERS: Referring Provider Internal Medicine Cardiovascular Disease; Visit Provider Internal Medicine Cardiovascular Disease
DX: Z00.00 Encounter for general adult medical examination without abnormal findings (principal)

== ENCOUNTER → 2022-06-15 | Outpatient (CLI) | payer MEDICARE, SELFPAY ==
[2021-07-11 09:10] VITALS: BMI 34.9
[2022-06-15 12:17] LABS: Absolute Lymphocyte Count 1.73 X10^3/uL (0.83-4.51); Absolute Neutrophil Count 9.6 X10^3/uL (2.0-7.7); Basophil# 0.07 X10^3/uL; Basophil% 0.6 % (0-1); Eosinophil# 0.34 X10^3/uL; Eosinophils% 2.7 % (0-5); Hematocrit 39.5 % (40-54); Hemoglobin 12.6 g/dL (13.0-16.5); Lymphocyte # 1.73 X10^3/ul (0.83-4.51); Lymphocyte % 13.6 % (19-41); Mean Corp Hgb Conc 31.9 g/dL (32-36); Mean Corpuscular Hgb 29.6 pg (27.0-32.0); Mean Corpuscular Volume 92.7 fL (80-94); Mean Platelet Vol. 12.4 fl (6.2-12.0); Monocyte# 0.89 X10^3/uL; NRBC Flagged by Analyzer 0 % (0-5); Neutrophil # 9.57 X10^3/uL (2.7-7.7); Neutrophil % 75.3 % (47-70); Platelet Count 269 K/mm3 (150-450); RBC Distribution Width SD 47.8 fl (35.1-43.9); Red Blood Count 4.26 M/mm3 (4.6-6.2); White Blood Count 12.7 K/mm3 (4.4-11.0)
[2022-06-15 12:40] LABS: Microalbumin,Random Urine 10.1 mg/L (NO RANGE EST.); Microalbumin:Creatinine Ratio 5.6 mg/g CRE (<30 mg/g CRE)
[2022-06-15 12:49] LABS: ALB/GLOB Ratio 0.9 RATIO (0.9-2.4); AST(SGOT) 12 U/L (15-37); Alanine Aminotransfer ALT/SGPT 25 U/L (16-61); Albumin, Serum 3.3 g/dL (3.2-5.0); Alkaline Phosphatase 101 U/L (45-117); Anion Gap 8 (5-15); BUN 18 mg/dL (7-18); BUN/Creat Ratio 20.8 RATIO (10-20); Chloride 103 mmol/L (98-107); Cholesterol 88 mg/dL (200); Creatinine, Serum 0.86 mg/dL (0.70-1.30); EST Glomerular Filtration Rate 90 mL/min (>60); Est Glom Filt Rate - Afr Amer 109 mL/min (>60); Globulin 3.5 g/dL (2.2-4.2); Glucose 109 mg/dL (74-106); High Density Lipoprotein 35 mg/dL; Potassium 4.2 mmol/L (3.5-5.1); Protein, Total 6.8 g/dL (6.4-8.2); Sodium Level 139 mmol/L (136-145); Thyroid Stim Hormone (TSH) 1.31 uIU/mL (0.358-3.74); Triglycerides 104 mg/dL; Very Low Density Lipoprotein 21 mg/dL (5-40)
== END | disposition home or self-care (01) ==
LOC: BIMLAB 08:57
PROVIDERS: Referring Provider Nurse Practitioner Family; Visit Provider Nurse Practitioner Family
DX: I10 Essential (primary) hypertension (principal); E11.9 Type 2 diabetes mellitus without complications
CPT/HCPCS: 36415; 80053; 80061; 82043; 82570; 84443; 85025

== ENCOUNTER 2022-06-25 08:00 | Outpatient (RCR) | payer SELFPAY ==
[2021-07-11 09:10] VITALS: BMI 34.9
== END 2022-06-28 23:59 ==
LOC: CR 08:00
PROVIDERS: Referring Provider Internal Medicine Cardiovascular Disease; Visit Provider Internal Medicine Cardiovascular Disease
DX: Z00.00 Encounter for general adult medical examination without abnormal findings (principal)

== ENCOUNTER 2022-07-28 08:00 | Outpatient (RCR) | payer SELFPAY ==
[2021-07-11 09:10] VITALS: BMI 34.9
== END 2022-07-29 23:59 ==
LOC: CR 08:00
PROVIDERS: Referring Provider Internal Medicine Cardiovascular Disease; Visit Provider Internal Medicine Cardiovascular Disease
DX: Z00.00 Encounter for general adult medical examination without abnormal findings (principal)

== ENCOUNTER 2022-08-27 08:00 | Outpatient (RCR) | payer SELFPAY ==
[2021-07-11 09:10] VITALS: BMI 34.9
== END 2022-08-28 23:59 ==
LOC: CR 08:00
PROVIDERS: Referring Provider Internal Medicine Cardiovascular Disease; Visit Provider Internal Medicine Cardiovascular Disease
DX: Z00.00 Encounter for general adult medical examination without abnormal findings (principal)

== ENCOUNTER → 2022-09-14 | Outpatient (CLI) | payer MEDICARE, OTHER, SELFPAY ==
[2021-07-11 09:10] VITALS: BMI 34.9
[2022-09-14 12:40] LABS: Absolute Neutrophil Count 9.8 X10^3/uL (2.0-7.7); Basophil# 0.08 X10^3/uL; Basophil% 0.6 % (0-1); Eosinophil# 0.29 X10^3/uL; Eosinophils% 2.2 % (0-5); Erythrocyte Sedimentation Rate 16 mm/hr (0-20); Hemoglobin 12.9 g/dL (13.0-16.5); Lymphocyte % 14.6 % (19-41); Mean Corp Hgb Conc 31.5 g/dL (32-36); Mean Corpuscular Hgb 28.9 pg (27.0-32.0); Mean Corpuscular Volume 91.7 fL (80-94); Mean Platelet Vol. 10.3 fl (6.2-12.0); Monocyte# 0.88 X10^3/uL; Monocyte% 6.8 % (0-10); NRBC Flagged by Analyzer 0 % (0-5); Neutrophil # 9.76 X10^3/uL (2.7-7.7); Neutrophil % 75.2 % (47-70); Platelet Count 314 K/mm3 (150-450); RBC Distribution Width CV 14.3 % (11.6-14.6); RBC Distribution Width SD 48.4 fl (35.1-43.9); Red Blood Count 4.47 M/mm3 (4.6-6.2)
[2022-09-14 12:59] LABS: Vitamin B12 280 pg/mL (211-911)
[2022-09-14 13:15] LABS: ALB/GLOB Ratio 0.9 RATIO (0.9-2.4); AST(SGOT) 11 U/L (15-37); Alanine Aminotransfer ALT/SGPT 24 U/L (16-61); Albumin, Serum 3.5 g/dL (3.2-5.0); Alkaline Phosphatase 118 U/L (45-117); Anion Gap 10 (5-15); BUN 19 mg/dL (7-18); BUN/Creat Ratio 20.8 RATIO (10-20); Calcium,Total 8.8 mg/dL (8.5-10.1); Chloride 103 mmol/L (98-107); Creatinine, Serum 0.91 mg/dL (0.70-1.30); EST Glomerular Filtration Rate 84 mL/min (>60); Est Glom Filt Rate - Afr Amer 102 mL/min (>60); Free T3 2.6 pg/mL (2.18-3.98); Globulin 3.8 g/dL (2.2-4.2); Glucose 98 mg/dL (74-106); LDH 149 U/L (87-241); Potassium 3.6 mmol/L (3.5-5.1); Protein, Total 7.3 g/dL (6.4-8.2); Sodium Level 139 mmol/L (136-145); Thyroid Stim Hormone (TSH) 1.19 uIU/mL (0.358-3.74)
[2022-09-15 15:08] LABS: Endomysial Antibody IgA Negative (Negative)
[2022-09-15 18:07] LABS: Immunoglobulin A 124 mg/dL (61-437); t-Transglutaminase IgA <2 U/mL (0-3)
[2022-09-16 07:08] LABS: Anti-Centromere B Ab <0.2 AI (0.0-0.9); Anti-Chromatin <0.2 AI (0.0-0.9); Anti-Jo <0.2 AI (0.0-0.9); Anti-Scleroderma-70 AB <0.2 AI (0.0-0.9); RNP Ab <0.2 AI (0.0-0.9); SJOGREN'S Anti-SS-A test < 0.2 AI (0.0-0.9); SJOGREN'S Anti-SS-B test < 0.2 AI (0.0-0.9); Smith Ab <0.2 AI (0.0-0.9)
[2022-09-16 08:57] LABS: Anti-dsDNA Ab <1 IU/mL (0-9)
[2022-09-21 17:07] LABS: Albumin 3.8 g/dL (2.9-4.4); Alpha-1-Globulins 0.3 g/dL (0.0-0.4); Cytoplasmic Ab (C-ANCA) <1:20 titer (Neg:<1:20); Immunoglobulin A 128 mg/dL (61-437); Immunoglobulin G 934 mg/dL (603-1613); Immunoglobulin M 91 mg/dL (15-143); PROEL- TOTAL PROTEIN 6.8 g/dL (6.0-8.5)
[2022-09-22 18:05] LABS: Immunoglobulin E 4 IU/mL (6-495); Perinuclear Ab (P-ANCA) <1:20 titer (Neg:<1:20)
== END | disposition home or self-care (01) ==
PROVIDERS: Referring Provider Internal Medicine Gastroenterology; Visit Provider Internal Medicine Gastroenterology
DX: R19.7 Diarrhea, unspecified (principal)
CPT/HCPCS: 36415; 80053; 82607; 82784; 82785; 83516; 83615; 84165; 84443; 84481; 85025; 85652; 86140; 86225; 86235; 86255; 86256; 86334

== ENCOUNTER → 2022-09-15 | Outpatient (CLI) | payer MEDICARE, OTHER, SELFPAY ==
[2021-07-11 09:10] VITALS: BMI 34.9
[2022-09-18 13:04] LABS: Pancreatic Elastase, Fecal 194 (>200)
[2022-09-20 09:22] LABS: Calprotectin, Stool 37 ug/g (0-120); Fats, Neutral Increased (.); Fats, Total Increased (.)
== END | disposition home or self-care (01) ==
PROVIDERS: Visit Provider Internal Medicine Gastroenterology
DX: K58.0 Irritable bowel syndrome with diarrhea (principal)
CPT/HCPCS: 82274; 82653; 82705; 83630; 83993; 87493

== ENCOUNTER 2022-09-17 08:00 | Outpatient (RCR) | payer SELFPAY ==
[2021-07-11 09:10] VITALS: BMI 34.9
== END 2022-09-28 23:59 ==
LOC: CR 08:00
PROVIDERS: Referring Provider Internal Medicine Cardiovascular Disease; Visit Provider Internal Medicine Cardiovascular Disease
DX: Z00.00 Encounter for general adult medical examination without abnormal findings (principal)

== ENCOUNTER 2022-10-27 08:00 | Outpatient (RCR) | payer SELFPAY ==
[2021-07-11 09:10] VITALS: BMI 34.9
== END 2022-10-28 23:59 ==
LOC: CR 08:00
PROVIDERS: Referring Provider Internal Medicine Cardiovascular Disease; Visit Provider Internal Medicine Cardiovascular Disease
DX: Z00.00 Encounter for general adult medical examination without abnormal findings (principal)

== ENCOUNTER 2022-11-26 08:00 | Outpatient (RCR) | payer SELFPAY ==
[2021-07-11 09:10] VITALS: BMI 34.9
== END 2022-11-28 23:59 ==
LOC: CR 08:00
PROVIDERS: Referring Provider Internal Medicine Cardiovascular Disease; Visit Provider Internal Medicine Cardiovascular Disease
DX: Z00.00 Encounter for general adult medical examination without abnormal findings (principal)

== ENCOUNTER → 2022-12-08 | Outpatient (CLI) | payer MEDICARE, OTHER, SELFPAY ==
[2021-07-11 09:10] VITALS: BMI 34.9
[2022-12-08 12:29] LABS: Absolute Lymphocyte Count 1.73 X10^3/uL (0.83-4.51); Absolute Neutrophil Count 9.3 X10^3/uL (2.0-7.7); Basophil# 0.06 X10^3/uL; Basophil% 0.5 % (0-1); Eosinophil# 0.27 X10^3/uL; Eosinophils% 2.2 % (0-5); Hematocrit 38.5 % (40-54); Hemoglobin 12.6 g/dL (13.0-16.5); Lymphocyte # 1.73 X10^3/ul (0.83-4.51); Lymphocyte % 14.2 % (19-41); Mean Corp Hgb Conc 32.7 g/dL (32-36); Mean Corpuscular Hgb 29.6 pg (27.0-32.0); Mean Corpuscular Volume 90.4 fL (80-94); Mean Platelet Vol. 10.1 fl (6.2-12.0); Monocyte# 0.77 X10^3/uL; Monocyte% 6.3 % (0-10); NRBC Flagged by Analyzer 0 % (0-5); Neutrophil % 76.1 % (47-70); Platelet Count 308 K/mm3 (150-450); RBC Distribution Width CV 14.7 % (11.6-14.6); RBC Distribution Width SD 48.5 fl (35.1-43.9); Red Blood Count 4.26 M/mm3 (4.6-6.2); White Blood Count 12.2 K/mm3 (4.4-11.0)
[2022-12-08 12:51] LABS: Erythrocyte Sedimentation Rate 25 mm/hr (0-20)
[2022-12-08 13:00] LABS: ALB/GLOB Ratio 0.9 RATIO (0.9-2.4); AST(SGOT) 12 U/L (15-37); Alanine Aminotransfer ALT/SGPT 25 U/L (16-61); Albumin, Serum 3.4 g/dL (3.2-5.0); Alkaline Phosphatase 117 U/L (45-117); Anion Gap 8 (5-15); BUN 24 mg/dL (7-18); BUN/Creat Ratio 31.1 RATIO (10-20); CRP 3.98 mg/L (0.0-3.0); Calcium,Total 8.8 mg/dL (8.5-10.1); Chloride 104 mmol/L (98-107); Creatinine, Serum 0.77 mg/dL (0.70-1.30); EST Glomerular Filtration Rate 102 mL/min (>60); Est Glom Filt Rate - Afr Amer 124 mL/min (>60); Globulin 3.6 g/dL (2.2-4.2); Glucose 96 mg/dL (74-106); Potassium 3.4 mmol/L (3.5-5.1); Sodium Level 139 mmol/L (136-145)
[2022-12-08 13:03] LABS: Rubella IgG Reactive (Nonreactive)
[2022-12-11 00:06] LABS: QNTFERON TB Mitogen Value > 10.00 IU/mL (.); QNTFERON TB Nil Value 0.02 IU/mL (.); QNTFERON TB1+ Ag Value 0.01 IU/mL (.); QNTFERON TB2+ Ag Value 0.02 IU/mL (.)
[2022-12-11 16:08] LABS: B. pertussis IgG 3.25 index (0.00-0.94); Mumps Antibody, IgM < 0.80 AU (0.00-0.79); QNTIFERON TB Positive Criteria Negative (Negative); V-Zoster IgG (Immunity) 2797 index (Immune >165)
== END | disposition home or self-care (01) ==
LOC: LAB 11:14
PROVIDERS: Visit Provider Internal Medicine Gastroenterology
DX: K50.90 Crohn's disease, unspecified, without complications (principal)
CPT/HCPCS: 36415; 80053; 85025; 85652; 86140; 86480; 86615; 86735; 86762; 86787

== ENCOUNTER 2022-12-29 08:00 | Outpatient (RCR) | payer SELFPAY ==
[2021-07-11 09:10] VITALS: BMI 34.9
== END 2022-12-29 23:59 ==
LOC: CR 08:00
PROVIDERS: Visit Provider Internal Medicine Cardiovascular Disease
DX: Z00.00 Encounter for general adult medical examination without abnormal findings (principal)

== ENCOUNTER → 2023-01-01 | Outpatient (CLI) | payer MEDICARE, OTHER, SELFPAY ==
[2021-07-11 09:10] VITALS: BMI 34.9
--- NOTE | 2023-01-01 10:16 | MRI_ITS ---
INDICATION: Enterography EXAMINATION: MRI - MR Abdomen/Pelvis WO/W Contrast TECHNIQUE: Multiplanar and multisequence MR images of the abdomen were obtained. IV Contrast Dosage and Agent: STUDY: MR PELVIS WITH T WITHOUT CONTRAST REASON FOR EXAM: Male, 82 years old. Enterography TECHNIQUE: Standardized fat and water weighted pulse sequences were obtained in all 3 orthogonal planes, pre-and post contrast administration. IV 20 Clariscan was administered for the contrast portion of the examination. COMPARISON: None. FINDINGS: Normal urinary bladder. Normal visualized small intestine. Diverticulosis of the sigmoid colon. No evidence of diverticulitis. There is no pelvic fluid. There is no pelvic mass lesion or lymphadenopathy. Normal visualized pelvic arteries. Moderate facet arthropathy and degenerative disc disease L4-S1. Mild dextroscoliosis. Normal abdominal wall. IMPRESSION: Normal unenhanced and enhanced MRI of the pelvis. 20 Clariscan IV 20 Clariscan COMPARISON: None. FINDINGS: LOWER CHEST: Lung bases are clear. No cardiomegaly or pericardial effusion. LIVER: Homogeneous. No focal mass. GALLBLADDER AND BILIARY TREE: Gallbladder is not visualized. This could be due to cholecystectomy or contracted gallbladder. No intra- or extrahepatic biliary ductal dilation. PANCREAS: No focal cystic or solid mass. SPLEEN: Normal size without focal cystic or solid mass. ADRENAL GLANDS: No nodules. KIDNEYS AND URETERS: Dictated cyst lateral midpole left kidney measuring 2.5 x 3.0 cm. This is consistent with a Bosniak type II lesion. Remainder of kidneys normal with normal contrast enhancement. PERITONEUM: No ascites or free air. No other fluid collection. LYMPH NODES: No enlarged mesenteric or retroperitoneal lymph nodes. VESSELS: Aorta is non-dilated. MRI/MRI Abd WITH and W/O Contrast IMPRESSION: Gallbladder not visualized which could be due to cholecystectomy or could be due to contracted gallbladder. Bosniak type II cyst left kidney. Facet arthropathy and degenerative disc disease L4-S1. Diverticulosis of the sigmoid colon. Electronically Signed: Nish Mcneal MD, MEGHANN at 9:16 EST ,
[2023-01-01 11:16] VITALS: BP 171/72; PULSE 61; RESP 14; TEMP 36.2; O2SAT 99; BMI 30.9
[2023-01-01] MEDS: Glucagon 1 MG/ML Syringe IV (11:28)
[2023-01-01 11:57] VITALS: BP 169/68; PULSE 73; RESP 16; O2SAT 98
== END | disposition home or self-care (01) ==
PROVIDERS: Referring Provider Internal Medicine Gastroenterology; Visit Provider Internal Medicine Gastroenterology
DX: K50.90 Crohn's disease, unspecified, without complications (principal)
CPT/HCPCS: 74183; 96374; A9575; A4216; J1610

== ENCOUNTER 2023-01-26 08:00 | Outpatient (RCR) | payer SELFPAY ==
[2021-07-11 09:10] VITALS: BMI 34.9
== END 2023-01-26 23:59 ==
LOC: CR 08:00
PROVIDERS: Visit Provider Internal Medicine Cardiovascular Disease
DX: Z00.00 Encounter for general adult medical examination without abnormal findings (principal)

== ENCOUNTER 2023-02-25 08:00 | Outpatient (RCR) | payer SELFPAY ==
[2021-07-11 09:10] VITALS: BMI 34.9
== END 2023-02-26 23:59 ==
LOC: CR 08:00
PROVIDERS: Visit Provider Internal Medicine Cardiovascular Disease
DX: Z00.00 Encounter for general adult medical examination without abnormal findings (principal)

== ENCOUNTER 2023-03-21 09:45 | Emergency (ER) | payer MEDICARE, OTHER, SELFPAY ==
[2021-07-11 09:10] VITALS: BMI 34.9
[2023-03-21 09:46] VITALS: BP 156/69; PULSE 82; RESP 14; TEMP 36.4; O2SAT 99; BMI 30.1
--- NOTE | 2023-03-21 10:26 | EX.ED.DYSGE1 ---
HPI <ZORAIDA Luis - Last Filed: 03/21/23 11:47> History of Present Illness Chief Complaint: Lower Extremity Injury Narrative Narrative: Patient presenting today with left thigh pain that he has had for the past 3 to 4 days. The pain is located on the lateral aspect and ventral aspect of his thigh and bothersome when he is trying to sleep. He describes it as both a dull and sharp pain and feels like his quadriceps muscle is very tight when the pain comes on. Patient sleeps on his left side and is not sure if that is why his left thigh is hurting him. He reports that during the day it does not seem to bother him as he has been active recently while in cardiac rehab. He denies any injury, history of blood clots, recent surgery/procedures, chest pain, shortness of breath. Patient reports using both Brilinta and aspirin. [facility] <ZORAIDA Luis - Last Filed: 03/21/23 11:47> [facility] Medical History Allergies Anxiety Atherosclerotic heart disease of [place] coronary artery without angina pectoris Bone fracture Cataract Celiac disease Coronary artery disease Gall stones Gastrointestinal problem Heart disease Hyperlipidemia Hypertension Hypertension Pneumonia Skin cancer Type 2 diabetes mellitus Home Medications amlodipine 5 mg tablet 5 mg PO DAILY BP 03/18/21 [History Last Taken 04/03/21] aspirin 81 mg tablet,delayed release 81 mg PO DAILY@0800 [facility] 03/18/21 [History Last Taken 04/03/21] cholecalciferol (vitamin D3) 50 mcg (2,000 unit) capsule 4,000 unit PO DAILY SUPPLEMENT 03/18/21 [History Last Taken 03/18/21] hydrochlorothiazide 25 mg tablet 25 mg PO QODAY BP 03/18/21 [History Last Taken 04/02/21] vit C 250 mg-vit E 90 mg-zinc 40 mg-copper 1 [id number]-pqxeco-okakmp capsule 1 cap PO BID [facility] 03/18/21 [History Last Taken 03/18/21] atorvastatin 40 mg tablet 40 mg PO QHS #90 tabs 04/11/21 [Rx Last Taken Unknown] isosorbide mononitrate 30 mg tablet,extended release 24 hr 30 mg PO DAILY #90 tabs 04/11/21 [Rx Last Taken Unknown] vitamin E mixed 400 unit capsule 400 unit PO DAILY 02/16/22 [History Last Taken Unknown] metformin 500 mg tablet,extended release 24 hr 500 mg PO BID 08/20/22 [History Last Taken Unknown] metoprolol succinate 100 mg tablet,extended release 24 hr 100 mg PO DAILY #90 tabs 08/20/22 [Rx Last Taken Unknown] ticagrelor 90 mg tablet 90 mg PO BID #180 tabs 08/20/22 [Rx Last Taken Unknown] valsartan 320 mg tablet 160 mg PO DAILY 08/20/22 [History Last Taken Unknown] Trulicity 0.75 mg/0.5 mL subcutaneous pen injector (dulaglutide) 0.75 mg (0.5 mL) subcut QWEEK #2 mL 12/14/22 [Rx Last Taken Unknown] Allergy/AdvReac Type Severity Reaction Status Date / Time gluten AdvReac upset Verified 03/21/23 09:47 stomach/diarrhea lactose AdvReac upset Verified 03/21/23 09:47 stomach/diarrhea Family History Other Asthma Cancer Diabetes H/O transfusion of whole blood Heart disease Hypertension Liver disease Melanoma Myocardial infarction Skin cancer Surgical History History of cholecystectomy Presence of coronary angioplasty implant and graft (~04/03/21) Presence of stent in coronary artery (~04/03/21) Social History Smoking Status: Former smoker how long ago did patient quit smokin years ago alcohol intake: current alcohol intake frequency: holidays/special occasions only substance use type: does not use caffeine: Yes Type: coffee Number of servings: 2 and tea Number of servings: 1 what type of physical activity do you participate in: other details: cardio frequency: 3-4 times per week ROS <ZORAIDA Luis - Last Filed: 03/21/23 11:47> ROS ED Constitutional Constitutional ED: Denies chills or fever(s) Cardiovascular Cardiovascular: Denies chest pain Respiratory/Chest Respiratory/Chest: Denies cough or dyspnea Gastrointestinal Gastrointestinal: Denies abdominal pain, nausea or vomiting Musculoskeletal Musculoskeletal: Reports myalgias; Denies back pain or neck pain Integumentary Denies abscess, Abrasions or rash Neurologic Neurologic: Denies weakness Psychiatric Psychiatric: Denies anxiety, depression, suicidal ideation or suicidal thoughts EXAM <ZORAIDA Luis - Last Filed: 03/21/23 11:47> Physical Exam Const Vital Signs: 03/21/23 09:46 Temperature 97.5 F L Temperature Source Temporal Pulse Rate 82 Respiratory Rate 14 Blood Pressure 156/69 H Blood Pressure Mean 98 Pulse Ox 99 Oxygen Delivery Method Room Air Positive well nourished, well developed and no apparent distress General Appearance ED: well developed HEENT Reports normocephalic and head/scalp atraumatic Mouth ED: Yes moist mucous membranes normal Eyes PERRL and EOMs intact bilaterally Neck full ROM and supple Chest Wall inspection of chest normal Resp normal respiratory effort and clear to auscultation bilaterally Cardio regular rate and regular rhythm GI soft to palpation, non-tender, non-distended and no masses Back/Spine normal ROM and normal to inspection Extremity normal to inspection and full ROM Extremity Narrative: mild Pain to palpation to the ventral and lateral aspect of the left thigh. No pain to palpation to the posterior aspect of the left thigh. No ecchymosis, edema, palpable cord, or erythema. DP pulses 2+ and equal bilaterally, good capillary refill, sensation intact. Neuro oriented x3, CN's II-XII intact bilaterally, moves all extremities, no focal motor deficits and no sensory deficits noted Sensorium / Orientation: awake and alert Motor Exam: strength 5/5 throughout Psych mental status grossly normal and thought process normal Skin no rashes or lesions noted and no wounds <Dr. Andrés Chris MD - Last Filed: 03/21/23 11:39> Physical Exam Const Vital Signs: 03/21/23 09:46 Temperature 97.5 F L Temperature Source Temporal Pulse Rate 82 Respiratory Rate 14 Blood Pressure 156/69 H Blood Pressure Mean 98 Pulse Ox 99 Oxygen Delivery Method Room Air MDM <ZORAIDA Luis - Last Filed: 03/21/23 11:47> [facility] Narrative Medical decision making narrative: Patient is presenting with left-sided thigh pain that he has had for the past several days, mainly occurs at night and is relieved when he ambulates. He is not symptomatic throughout the day and denies any symptoms here in the ED. Patient does not have any significant risk factors for DVT. Patient's examination is benign, I do not think that any imaging is indicated as patient had no injury. Patient has been given supportive care measures, his symptoms are consistent with muscular spasm/cramping. He will be discharged home in stable condition and is comfortable with plan. He is to follow-up with her PCP. He has been given return instructions. I have personally performed a face to face assessment of the patient and have reviewed the YADIRA Note. I performed a substantive portion of the visit including all aspects of the following. My muhammad findings include: History is [83-year-old male with left thigh discomfort at night the last 3-4 nights. Denies any fall injury or trauma. No fever or chills. No redness. No swelling. No history of DVT or risk factors. No recent travel, surgery or immobilization. Currently he is having no symptoms. Typically occurs at night. Better when he is doing cardiac rehab and ambulating. Denies any other complaints.] Exam is [well-appearing 83-year-old male. Vital signs stable afebrile HEENT exam normal. Lungs clear. Heart regular rhythm. Abdomen soft nontender normal bowel sounds. Moving all 4 extremities. Specifically he has normal range of motion to his left hip, knee ankle and foot. Normal dorsi plantarflexion. Normal DP pulse. His calf is nontender. There is no edema. There is no swelling to the entire leg. His left hamstring and thigh are completely nontender. There is no muscle spasm. There is no signs of infection. There is no trauma.] Medical Decision Making [patient most likely has is having muscular cramps. Tylenol Motrin for pain. Plenty of fluid. Follow-up if not improving. He has no risk factors or signs of a DVT. Currently symptom-free. I do not think he needs a noninvasive study nor do I think he needs any x-rays.] Other additions or changes: [None] <Dr. Andrés Chris MD - Last Filed: 03/21/23 11:39> [facility] Narrative Medical decision making narrative: I have personally performed a face to face assessment of the patient and have reviewed the YADIRA Note. I performed a substantive portion of the visit including all aspects of the following. My muhammad findings include: History is [83-year-old male with left thigh discomfort at night the last 3-4 nights. Denies any fall injury or trauma. No fever or chills. No redness. No swelling. No history of DVT or risk factors. No recent travel, surgery or immobilization. Currently he is having no symptoms. Typically occurs at night. Better when he is doing cardiac rehab and ambulating. Denies any other complaints.] Exam is [well-appearing 83-year-old male. Vital signs stable afebrile HEENT exam normal. Lungs clear. Heart regular rhythm. Abdomen soft nontender normal bowel sounds. Moving all 4 extremities. Specifically he has normal range of motion to his left hip, knee ankle and foot. Normal dorsi plantarflexion. Normal DP pulse. His calf is nontender. There is no edema. There is no swelling to the entire leg. His left hamstring and thigh are completely nontender. There is no muscle spasm. There is no signs of infection. There is no trauma.] Medical Decision Making [patient most likely has is having muscular cramps. Tylenol Motrin for pain. Plenty of fluid. Follow-up if not improving. He has no risk factors or signs of a DVT. Currently symptom-free. I do not think he needs a noninvasive study nor do I think he needs any x-rays.] Other additions or changes: [None] History & Record Review Discussion w/independent historian: Patient Discharge Plan Triage Chief Complaint: Lower Extremity Injury ED Midlevel Provider: Jordyn Osman ED Provider: Andrés Chris Dx/Rx/DC Orders Clinical Impression: Left thigh pain, Leg muscle spasm Instructions: ED Leg Spasm Prescriptions: No Action atorvastatin 40 mg tablet 40 mg PO QHS Qty: 90 3RF isosorbide mononitrate 30 mg tablet extended release 24 hr 30 mg PO DAILY Qty: 90 3RF vitamin E mixed 400 unit capsule 400 unit PO DAILY valsartan 320 mg tablet 160 mg PO DAILY metformin 500 mg tablet extended release 24 hr 500 mg PO BID metoprolol succinate 100 mg tablet extended release 24 hr 100 mg PO DAILY Qty: 90 3RF ticagrelor 90 mg tablet 90 mg PO BID Qty: 180 3RF amlodipine 5 MG tablet 5 mg PO DAILY hydrochlorothiazide 25 MG tablet 25 mg PO QODAY aspirin 81 MG tablet 81 mg PO DAILY@0800 cholecalciferol (vitamin D3) 2,000 UNIT capsule 4,000 unit PO DAILY vit C,L-Dl-kvwfy-lutein-zeaxan 1 EACH capsule 1 cap PO BID Trulicity 0.75 mg/0.5 mL pen injector 0.75 mg subcut QWEEK Qty: 2 3RF Primary Care Provider: DAO VIVEROS Referrals: DAO VIVEROS [Other] - 3-5 Days Activity Restrictions/Additional Instructions: You can take Tylenol for your pain and apply heat to the area. Please follow-up with your PCP, stay well hydrated, return for any worsening of symptoms. Disposition Disposition: Home, Self Care
== END 2023-03-21 11:49 | disposition home or self-care (01) ==
PROVIDERS: Emergency Provider Emergency Medicine; Visit Provider Emergency Medicine
DX: M62.838 Other muscle spasm (principal); E11.9 Type 2 diabetes mellitus without complications; M79.652 Pain in left thigh; Z87.891 Personal history of nicotine dependence; I10 Essential (primary) hypertension; I25.10 Atherosclerotic heart disease of native coronary artery without angina pectoris; Z79.899 Other long term (current) drug therapy; Z79.82 Long term (current) use of aspirin; E78.5 Hyperlipidemia, unspecified; Z79.84 Long term (current) use of oral hypoglycemic drugs; H26.9 Unspecified cataract; Z79.85 Long-term (current) use of injectable non-insulin antidiabetic drugs; Z95.5 Presence of coronary angioplasty implant and graft
CPT/HCPCS: 99282

== ENCOUNTER 2023-03-25 08:00 | Outpatient (RCR) | payer SELFPAY ==
[2021-07-11 09:10] VITALS: BMI 34.9
== END 2023-03-28 23:59 ==
LOC: CR 08:00
PROVIDERS: Visit Provider Internal Medicine Cardiovascular Disease
DX: Z00.00 Encounter for general adult medical examination without abnormal findings (principal)

== ENCOUNTER 2023-04-27 08:00 | Outpatient (RCR) | payer SELFPAY ==
[2021-07-11 09:10] VITALS: BMI 34.9
== END 2023-04-28 23:59 ==
LOC: CR 08:00
PROVIDERS: Referring Provider Internal Medicine Cardiovascular Disease; Visit Provider Internal Medicine Cardiovascular Disease
DX: Z00.00 Encounter for general adult medical examination without abnormal findings (principal)

== ENCOUNTER 2023-05-27 08:00 | Outpatient (RCR) | payer SELFPAY ==
[2021-07-11 09:10] VITALS: BMI 34.9
== END 2023-05-28 23:59 ==
LOC: CR 08:00
PROVIDERS: Referring Provider Internal Medicine Cardiovascular Disease; Visit Provider Internal Medicine Cardiovascular Disease
DX: Z00.00 Encounter for general adult medical examination without abnormal findings (principal)

== ENCOUNTER 2023-06-24 08:00 | Outpatient (RCR) | payer SELFPAY ==
[2021-07-11 09:10] VITALS: BMI 34.9
== END 2023-06-28 23:59 ==
LOC: CR 08:00
PROVIDERS: Referring Provider Internal Medicine Cardiovascular Disease; Visit Provider Internal Medicine Cardiovascular Disease
DX: Z00.00 Encounter for general adult medical examination without abnormal findings (principal)

== ENCOUNTER 2023-07-29 08:00 | Outpatient (RCR) | payer SELFPAY ==
[2021-07-11 09:10] VITALS: BMI 34.9
== END 2023-07-29 23:59 ==
LOC: CR 08:00
PROVIDERS: Referring Provider Internal Medicine Cardiovascular Disease; Visit Provider Internal Medicine Cardiovascular Disease
DX: Z00.00 Encounter for general adult medical examination without abnormal findings (principal)

== ENCOUNTER 2023-08-26 08:00 | Outpatient (RCR) | payer SELFPAY ==
[2021-07-11 09:10] VITALS: BMI 34.9
== END 2023-08-28 23:59 ==
LOC: CR 08:00
PROVIDERS: Referring Provider Internal Medicine Cardiovascular Disease; Visit Provider Internal Medicine Cardiovascular Disease
DX: Z00.00 Encounter for general adult medical examination without abnormal findings (principal)

== ENCOUNTER 2023-09-28 08:00 | Outpatient (RCR) | payer SELFPAY ==
[2021-07-11 09:10] VITALS: BMI 34.9
== END 2023-09-28 23:59 ==
LOC: CR 08:00
PROVIDERS: Referring Provider Internal Medicine Cardiovascular Disease; Visit Provider Internal Medicine Cardiovascular Disease
DX: Z00.00 Encounter for general adult medical examination without abnormal findings (principal)

== ENCOUNTER 2023-10-28 08:00 | Outpatient (RCR) | payer SELFPAY ==
[2021-07-11 09:10] VITALS: BMI 34.9
== END 2023-10-28 23:59 ==
LOC: CR 08:00
PROVIDERS: Referring Provider Internal Medicine Cardiovascular Disease; Visit Provider Internal Medicine Cardiovascular Disease
DX: Z00.00 Encounter for general adult medical examination without abnormal findings (principal)

== ENCOUNTER 2023-11-11 08:00 | Outpatient (RCR) | payer SELFPAY ==
[2021-07-11 09:10] VITALS: BMI 34.9
== END 2023-11-28 23:59 ==
LOC: CR 08:00
PROVIDERS: Referring Provider Internal Medicine Cardiovascular Disease; Visit Provider Internal Medicine Cardiovascular Disease
DX: Z00.00 Encounter for general adult medical examination without abnormal findings (principal)

== ENCOUNTER 2023-12-28 08:00 | Outpatient (RCR) | payer SELFPAY ==
[2021-07-11 09:10] VITALS: BMI 34.9
== END 2023-12-29 23:59 ==
LOC: CR 08:00
PROVIDERS: Referring Provider Internal Medicine Cardiovascular Disease; Visit Provider Internal Medicine Cardiovascular Disease
DX: Z00.00 Encounter for general adult medical examination without abnormal findings (principal)

== ENCOUNTER 2024-01-27 08:00 | Outpatient (RCR) | payer SELFPAY ==
[2021-07-11 09:10] VITALS: BMI 34.9
== END 2024-01-27 23:59 ==
LOC: CR 08:00
PROVIDERS: Referring Provider Internal Medicine Cardiovascular Disease; Visit Provider Internal Medicine Cardiovascular Disease
DX: Z00.00 Encounter for general adult medical examination without abnormal findings (principal)

== ENCOUNTER 2024-02-24 08:00 | Outpatient (RCR) | payer SELFPAY ==
[2021-07-11 09:10] VITALS: BMI 34.9
== END 2024-02-27 23:59 ==
LOC: CR 08:00
PROVIDERS: Referring Provider Internal Medicine Cardiovascular Disease; Visit Provider Internal Medicine Cardiovascular Disease
DX: Z00.00 Encounter for general adult medical examination without abnormal findings (principal)

== ENCOUNTER 2024-03-28 08:00 | Outpatient (RCR) | payer SELFPAY ==
[2021-07-11 09:10] VITALS: BMI 34.9
== END 2024-03-28 23:59 ==
LOC: CR 08:00
PROVIDERS: Referring Provider Internal Medicine Cardiovascular Disease; Visit Provider Internal Medicine Cardiovascular Disease
DX: Z00.00 Encounter for general adult medical examination without abnormal findings (principal)

== ENCOUNTER 2024-04-27 08:00 | Outpatient (RCR) | payer SELFPAY ==
[2021-07-11 09:10] VITALS: BMI 34.9
== END 2024-04-28 23:59 ==
LOC: CR 08:00
PROVIDERS: Referring Provider Internal Medicine Cardiovascular Disease; Visit Provider Internal Medicine Cardiovascular Disease
DX: Z00.00 Encounter for general adult medical examination without abnormal findings (principal)

== ENCOUNTER 2024-05-23 08:00 | Outpatient (RCR) | payer SELFPAY ==
[2021-07-11 09:10] VITALS: BMI 34.9
== END 2024-05-28 23:59 ==
LOC: CR 08:00
PROVIDERS: Referring Provider Internal Medicine Cardiovascular Disease; Visit Provider Internal Medicine Cardiovascular Disease
DX: Z00.00 Encounter for general adult medical examination without abnormal findings (principal)

== ENCOUNTER 2024-06-27 08:00 | Outpatient (RCR) | payer SELFPAY ==
[2021-07-11 09:10] VITALS: BMI 34.9
== END 2024-06-28 23:59 ==
LOC: CR 08:00
PROVIDERS: Referring Provider Internal Medicine Cardiovascular Disease; Visit Provider Internal Medicine Cardiovascular Disease
DX: Z00.00 Encounter for general adult medical examination without abnormal findings (principal)

== ENCOUNTER 2024-07-27 08:00 | Outpatient (RCR) | payer SELFPAY ==
[2021-07-11 09:10] VITALS: BMI 34.9
== END 2024-07-29 23:59 ==
LOC: CR 08:00
PROVIDERS: Referring Provider Internal Medicine Cardiovascular Disease; Visit Provider Internal Medicine Cardiovascular Disease
DX: Z00.00 Encounter for general adult medical examination without abnormal findings (principal)

== ENCOUNTER 2024-08-24 08:00 | Outpatient (RCR) | payer SELFPAY ==
[2021-07-11 09:10] VITALS: BMI 34.9
== END 2024-08-28 23:59 ==
LOC: CR 08:00
PROVIDERS: Referring Provider Internal Medicine Cardiovascular Disease; Visit Provider Internal Medicine Cardiovascular Disease
DX: Z00.00 Encounter for general adult medical examination without abnormal findings (principal)

== ENCOUNTER 2024-09-26 08:00 | Outpatient (RCR) | payer SELFPAY ==
[2021-07-11 09:10] VITALS: BMI 34.9
== END 2024-09-28 23:59 ==
LOC: CR 08:00
PROVIDERS: Referring Provider Internal Medicine Cardiovascular Disease; Visit Provider Internal Medicine Cardiovascular Disease
DX: Z00.00 Encounter for general adult medical examination without abnormal findings (principal)

== ENCOUNTER 2024-10-24 08:00 | Outpatient (RCR) | payer SELFPAY ==
[2021-07-11 09:10] VITALS: BMI 34.9
== END 2024-10-28 23:59 ==
LOC: CR 08:00
PROVIDERS: Referring Provider Internal Medicine Cardiovascular Disease; Visit Provider Internal Medicine Cardiovascular Disease
DX: Z00.00 Encounter for general adult medical examination without abnormal findings (principal)

== ENCOUNTER 2024-11-28 08:00 | Outpatient (RCR) | payer SELFPAY ==
[2021-07-11 09:10] VITALS: BMI 34.9
== END 2024-11-28 23:59 ==
LOC: CR 08:00
PROVIDERS: Referring Provider Internal Medicine Cardiovascular Disease; Visit Provider Internal Medicine Cardiovascular Disease
DX: Z00.00 Encounter for general adult medical examination without abnormal findings (principal)

== ENCOUNTER 2024-12-28 08:00 | Outpatient (RCR) | payer SELFPAY ==
[2021-07-11 09:10] VITALS: BMI 34.9
== END 2024-12-29 23:59 ==
LOC: CR 08:00
PROVIDERS: Referring Provider Internal Medicine Cardiovascular Disease; Visit Provider Internal Medicine Cardiovascular Disease
DX: Z00.00 Encounter for general adult medical examination without abnormal findings (principal)

== ENCOUNTER → 2025-01-02 | Outpatient (CLI) | payer MEDICARE, OTHER, SELFPAY ==
[2021-07-11 09:10] VITALS: BMI 34.9
--- NOTE | 2025-01-02 06:41 | ECHOCS_ITS ---
Version 2 Reason For Study: CAD/ASHD Procedure This was a 2D Doppler, Color Flow transthoracic echocardiogram. The study was technically difficult. Contrast injection was performed. Exam performed in department. Left Ventricle Normal left ventricle. Mild concentric left ventricular hypertrophy. Left ventricular systolic function is normal. The left ventricular ejection fraction is 65 %. Stage 1 diastolic dysfunction. No regional wall motion abnormalities noted. Right Ventricle Normal RV size. Normal systolic function. Atria Normal left atrium. Normal right atrium. Mitral Valve Normal mitral valve. Tricuspid Valve Normal tricuspid valve. Aortic Valve Trisinus/trileaflet aortic valve. Mild focal aortic valve calcification. Pulmonic Valve Normal pulmonic valve. Great Vessels Normal aortic root. The pulmonary is not well visualized. Normal inferior vena cava. Pericardium/Pleural No pericardial effusion. Medication 22 gauge I.V. with prn adaptor inserted into left arm. Diluted definity 2.5ml given slow IV push to enhance endocardial definition. MMode/2D Measurements & Calculations LVIDd: 4.4 cm IVSd: 1.5 cm LVOT diam: 2.0 cm LVIDs: 3.0 cm LVPWd: 1.2 cm FS: 33.5 % LVOT area: 3.3 cm2 _ Ao root diam: 3.7 cm LAV(MOD-bp): 97.1 ml LVAd ap4: 31.8 cm2 LAV(MOD-bp) Indexed: 47.8 ml/m2 LVLd ap4: 8.3 cm LAV(MOD-sp2): 98.1 ml EDV(MOD- sp4): 99.5 ml LAV(MOD-sp4): 93.6 ml EDV(sp4- el): 103.7 ml LVAs ap4: 16.0 cm2 LVLs ap4: 6.9 cm ESV(MOD- sp4): 31.5 ml ESV(sp4- el): 31.6 ml EF(MOD- sp4): 68.4 % EF(sp4- el): 69.6 % _ SV(MOD-sp4): 68.0 ml SV(sp4-el): 72.2 ml LA A4 area: 27.4 cm2 SI(MOD-sp4): 33.5 ml/m2 _ LA dimension(2D): 4.6 cm RA A4 area: 22.9 cm2 TAPSE: 2.3 cm Time Measurements MV dec time: 0.26 sec Doppler Measurements & Calculations MV E max zhou: 109.4 cm/sec Lat Peak E' Zhou: 5.4 cm/sec Med Peak E' Zhou: 8.0 cm/sec MV A max zhou: 116.7 cm/sec E/E' lat: 20.2 E/E' med: 13.6 MV E/A: 0.94 _ MV V2 max: 133.7 cm/sec MV P1/2t max zhou: 124.5 cm/sec Ao V2 max: 125.9 cm/sec MV max P.1 mmHg MV P1/2t: 81.0 msec Ao max P.3 mmHg MV V2 mean: 75.4 cm/sec MV dec slope: 450.0 cm/sec2 ANNI(V,D): 2.3 cm2 MV mean P.7 mmHg MVA(P1/2t): 2.7 cm2 MV V2 VTI: 36.6 cm _ LV V1 max: 90.4 cm/sec LV V1 max P.3 mmHg ECHO/Echo Complete W/ Contrast Interpretation Summary Normal left ventricle. Left ventricular systolic function is normal. The left ventricular ejection fraction is 65 %. Stage 1 diastolic dysfunction. Mild concentric left ventricular hypertrophy. Contrast injection was performed. Ordering Physician: Parminder Parks Referring Physician: Parminder Parks Performed By: Edward Sim RCS
--- NOTE | 2025-01-02 17:00 | STRESSREP ---
Stress Test Report Pharmacologic myocardial perfusion stress test. 84-year-old man with a history of coronary disease Resting EKG demonstrates sinus rhythm with a rate of 78 bpm. Resting blood pressure is 167/78 mmHg. 0.4 mg of regadenoson was infused per usual protocol followed by rapid intravenous saline flush injection. Continuous EKG monitoring was performed. The maximum heart rate was 87 bpm which was 63% of max impacted heart rate the maximum workload was 1 metabolic equivalent. At rest there were no ST or T wave changes noted to suggest ischemia and at peak infusion nonspecific ST changes were noted which did not meet the criteria for ischemia. No clinical angina is noted. The final blood pressure was 143/60 mmHg. Myocardial perfusion protocol. 15 mCi of technetium 99m sestamibi was injected at rest. 0.4 mg of regadenoson was infused per usual protocol. At peak infusion 45 mCi of technetium 99m sestamibi was injected stress images were obtained stress and rest images were reconstructed and compared in the short axis vertical long and horizontal long axis. Gated images were also obtained. Perfusion SPECT analysis: Review of the stress images demonstrate normal uptake of tracer noted in all areas of the myocardium. The resting images similar demonstrated normal uptake of tracer noted in all areas of the myocardium. No areas of reversibility are noted to suggest ischemia and no previous infarct is noted. Gated SPECT analysis: The gated ejection fraction is 74%. Conclusion: Normal pharmacologic myocardial perfusion stress test. Preserved ejection fraction.
== END | disposition home or self-care (01) ==
LOC: CVS 06:41
PROVIDERS: Referring Provider Internal Medicine Cardiovascular Disease; Visit Provider Internal Medicine Cardiovascular Disease
DX: I25.10 Atherosclerotic heart disease of native coronary artery without angina pectoris (principal); I10 Essential (primary) hypertension; E78.5 Hyperlipidemia, unspecified; Z95.5 Presence of coronary angioplasty implant and graft
CPT/HCPCS: 78452; 93017; 93306; A9500; Q9957; A4216; C8929; J2785

== ENCOUNTER 2025-01-25 08:00 | Outpatient (RCR) | payer SELFPAY ==
[2021-07-11 09:10] VITALS: BMI 34.9
== END 2025-01-26 23:59 ==
LOC: CR 08:00
PROVIDERS: Referring Provider Internal Medicine Cardiovascular Disease; Visit Provider Internal Medicine Cardiovascular Disease
DX: Z00.00 Encounter for general adult medical examination without abnormal findings (principal)

== ENCOUNTER 2025-02-22 08:00 | Outpatient (RCR) | payer SELFPAY ==
[2021-07-11 09:10] VITALS: BMI 34.9
== END 2025-02-26 23:59 ==
LOC: CR 08:00
PROVIDERS: Referring Provider Internal Medicine Cardiovascular Disease; Visit Provider Internal Medicine Cardiovascular Disease
DX: Z00.00 Encounter for general adult medical examination without abnormal findings (principal)

== ENCOUNTER 2025-03-27 08:00 | Outpatient (RCR) | payer SELFPAY ==
[2021-07-11 09:10] VITALS: BMI 34.9
== END 2025-03-28 23:59 ==
LOC: CR 08:00
PROVIDERS: Referring Provider Internal Medicine Cardiovascular Disease; Visit Provider Internal Medicine Cardiovascular Disease
DX: Z00.00 Encounter for general adult medical examination without abnormal findings (principal)

== ENCOUNTER 2025-04-26 08:00 | Outpatient (RCR) | payer SELFPAY ==
[2021-07-11 09:10] VITALS: BMI 34.9
== END 2025-04-28 23:59 ==
LOC: CR 08:00
PROVIDERS: Referring Provider Internal Medicine Cardiovascular Disease; Visit Provider Internal Medicine Cardiovascular Disease
DX: Z00.00 Encounter for general adult medical examination without abnormal findings (principal)

== ENCOUNTER 2025-05-24 08:00 | Outpatient (RCR) | payer SELFPAY ==
[2021-07-11 09:10] VITALS: BMI 34.9
== END 2025-05-28 23:59 ==
LOC: CR 08:00
PROVIDERS: Referring Provider Internal Medicine Cardiovascular Disease; Visit Provider Internal Medicine Cardiovascular Disease
DX: Z00.00 Encounter for general adult medical examination without abnormal findings (principal)

== ENCOUNTER 2025-06-14 16:47 | Emergency (ER) | payer MEDICARE, OTHER, SELFPAY ==
[2021-07-11 09:10] VITALS: BMI 34.9
[2025-06-14 16:47] VITALS: BP 158/75; PULSE 93; RESP 16; TEMP 36.2; O2SAT 99; BMI 33.3
--- NOTE | 2025-06-14 17:05 | RAD_ITS ---
PROCEDURE: CHEST 1 VIEW (PORTABLE) 06/14/2025 REASON FOR EXAM: CHEST PAIN TECHNIQUE: Frontal view of the chest. COMPARISON: None FINDINGS: Hardware: None Heart: Not significantly enlarged Lungs: No focal consolidation or pleural effusion. Bones: Degenerative changes are identified within the thoracic spine. RAD/Chest 1 View (Portable) IMPRESSION: No acute cardiopulmonary abnormality. Reading Location: [id number]
[2025-06-14 17:39] LABS: Hematocrit 41.6 % (40-54); Hemoglobin 13.7 g/dL (13.0-16.5); Immature Granulocytes Count 0.080 X10^3/uL (0.0-0.0); Mean Corp Hgb Conc 32.9 g/dL (32-36); Mean Corpuscular Volume 89.7 fL (80-94); Mean Platelet Vol. 10.3 fl (6.2-12.0); NRBC Flagged by Analyzer 0 % (0-5); POSITIVE DIFFERENTIAL YES; Platelet Count 264 K/mm3 (150-450); RBC Distribution Width CV 13.7 % (11.6-14.6); RBC Distribution Width SD 44.8 fl (35.1-43.9); Red Blood Count 4.64 M/mm3 (4.6-6.2); White Blood Count 14.6 K/mm3 (4.4-11.0)
--- NOTE | 2025-06-14 17:44 | ED.VIS.CHEST ---
HPI <ZORAIDA Best - Last Filed: 06/14/25 21:33> History of Present Illness Chief Complaint: Chest Pain Narrative Narrative: 85-year-old male with PMH of HTN, HLD, CAD with 2 stents, DM2 presents with chest pain. He states he had postnasal drip all summer. Yesterday he developed midsternal chest pain when taking a deep breath. Went to his primary care office today and had negative COVID/flu testing and a negative chest x-ray. EKG showed possible ST changes so he was sent in for evaluation. He follows with the [facility] and had 2 stents placed in 2020. He had a stress test in December 2024 that was normal. He states he was asymptomatic but it was ordered because it had been a long time since he had one done. He takes Plavix. He denies smoking history. He denies history of DVT/PE or risk factors. PFS <ZORAIDA Best - Last Filed: 06/14/25 21:33> [facility] Medical History Hyperlipidemia Skin cancer Pneumonia Heart disease Gastrointestinal problem Gall stones Cataract Bone fracture Allergies Type 2 diabetes mellitus Hypertension Celiac disease Anxiety Coronary artery disease Hypertension Atherosclerotic heart disease of jamul coronary artery without angina pectoris Home Medications ?Medication ?Instructions ?Recorded ?Last Taken ?Type aspirin 81 mg tablet,delayed 81 mg PO DAILY@0800 [facility] 03/18/21 04/03/21 History release cholecalciferol (vitamin D3) 50 4,000 unit PO DAILY SUPPLEMENT 03/18/21 03/18/21 History mcg (2,000 unit) capsule vit C 250 mg-vit E 90 mg-zinc 40 1 cap PO BID [facility] 03/18/21 03/18/21 History mg-copper 1 [id number]-[id number] capsule atorvastatin 40 mg tablet 40 mg PO QHS #90 tabs 04/11/21 Unknown Rx isosorbide mononitrate 30 mg 30 mg PO DAILY #90 tabs 04/11/21 Unknown Rx tablet,extended release 24 hr vitamin E mixed 400 unit capsule 400 unit PO DAILY 02/16/22 Unknown History metformin 500 mg tablet,extended 500 mg PO BID 08/20/22 Unknown History release 24 hr diphenhydramine HCl 25 mg capsule 25 mg PO QHS PRN 06/09/23 Unknown History (Benadryl) cetirizine 10 mg tablet 10 mg PO DAILY 10/19/23 Unknown History montelukast 10 mg tablet 10 mg PO QHS 10/19/23 Unknown History valsartan 320 mg tablet 320 mg PO DAILY 10/19/23 Unknown History hydrochlorothiazide 25 mg tablet 25 mg PO Q OTHER DAY 07/19/24 Unknown History amlodipine 10 mg tablet 10 mg PO DAILY 12/26/24 Unknown History metoprolol succinate 50 mg 100 mg PO DAILY 12/26/24 Unknown History tablet,extended release 24 hr tamsulosin 0.4 mg capsule 0.4 mg PO QDAY 12/26/24 Unknown History famotidine 20 mg tablet 20 mg PO DAILY #90 tabs 01/15/25 Unknown Rx dulaglutide 3 mg/0.5 mL 3 mg (0.5 mL) subcut QWEEK #2 mL 01/17/25 Unknown Rx subcutaneous pen injector (Trulicity) Allergy/AdvReac Type Severity Reaction Status Date / Time gluten AdvReac upset Verified 06/14/25 16:47 stomach/diarrhea lactose AdvReac upset Verified 06/14/25 16:47 stomach/diarrhea Family History Other Asthma Cancer Diabetes H/O transfusion of whole blood Heart disease Hypertension Liver disease Melanoma Myocardial infarction Skin cancer Surgical History Hx of melanoma excision History of cholecystectomy Presence of coronary angioplasty implant and graft (~04/03/21) Presence of stent in coronary artery (~04/03/21) Social History Smoking Status: Former smoker how long ago did patient quit smokin years ago alcohol intake: current alcohol intake frequency: holidays/special occasions only substance use type: does not use caffeine: Yes Type: coffee Number of servings: 2 and tea Number of servings: 1 what type of physical activity do you participate in: other details: cardio frequency: 3-4 times per week ROS <ZORAIDA Best - Last Filed: 06/14/25 21:33> ROS ED ROS Narrative Constitutional: Negative for fever, chills, malaise. CVS: Positive for chest pain. No syncope or palpitations. Respiratory: Negative for shortness of breath, cough. GI: Negative for abdominal pain, nausea, vomiting. EXAM <ZORAIDA Best - Last Filed: 06/14/25 21:33> Physical Exam Narrative Exam Narrative: CONST: Patient sitting in no acute distress. EYES: Normal inspection. NECK: Normal inspection. RESP: No respiratory distress, CTAB. CVS: Regular rate and rhythm, no murmur, no gallop. ABD: Soft and nontender, no guarding or rebound, nondistended. SKIN: Color normal, no rash, warm, dry, intact. EXTREMITIES: Normal appearance, no pedal edema. NEURO: Alert and answering questions appropriately. PSYCH: Normal affect. Const Vital Signs: 06/14/25 16:47 06/14/25 16:50 06/14/25 18:34 Temperature 97.2 F L Temperature Source Temporal Pulse Rate 93 86 Respiratory Rate 16 16 Blood Pressure 158/75 H 143/67 H Blood Pressure Mean 102 92 Pulse Ox 99 98 Oxygen Delivery Method Room Air Room Air Room Air 06/14/25 19:00 06/14/25 20:00 Temperature Temperature Source Pulse Rate 86 82 Respiratory Rate 20 H 17 Blood Pressure 167/75 H 149/65 H Blood Pressure Mean 105 93 Pulse Ox 98 97 Oxygen Delivery Method Room Air Room Air <Dr. Rayshawn Yeager DO - Last Filed: 06/14/25 21:29> Physical Exam Const Vital Signs: 06/14/25 16:47 06/14/25 16:50 06/14/25 18:34 Temperature 97.2 F L Temperature Source Temporal Pulse Rate 93 86 Respiratory Rate 16 16 Blood Pressure 158/75 H 143/67 H Blood Pressure Mean 102 92 Pulse Ox 99 98 Oxygen Delivery Method Room Air Room Air Room Air 06/14/25 19:00 06/14/25 20:00 Temperature Temperature Source Pulse Rate 86 82 Respiratory Rate 20 H 17 Blood Pressure 167/75 H 149/65 H Blood Pressure Mean 105 93 Pulse Ox 98 97 Oxygen Delivery Method Room Air Room Air <ZORAIDA Best - Last Filed: 06/14/25 21:33> Heart Score ECG: Normal Risk Factors: >/= 3 Risk Factors or History of CAD Score: 4 <Dr. Rayshawn Yeager DO - Last Filed: 06/14/25 21:29> Heart Score History: Slightly/Non-Suspicious ECG: Nonspecific Repolarization Age: >/= 65 years Troponin: </= Normal Limit Score: 3 MDM <ZORAIDA Best - Last Filed: 06/14/25 21:33> [facility] MDM Narrative Medical decision making narrative: History of from: Patient and family Consults: Urgent care physician who sent him and gave telephone report Differential includes but not limited to ACS, PE, pneumonia 85-year-old male presents with pleuritic midsternal chest pain x 2 days. He appears well and nontoxic. Vital stable. He has a normal cardiopulmonary exam. No tenderness of the chest wall or abdomen are present. Labs show white count of 14.6, otherwise unremarkable. EKG is normal sinus rhythm without ischemic changes and serial troponins are 13 and 12 ruling out ACS. His D-dimer is negative. Chest x-ray shows no acute process. Not sure of the etiology of his chest pain but he states it is rather mild and is not exertional so I feel he can be discharged safely with close primary care follow-up. I recommended bqkz-qmt-axbenoy allergy medication for his postnasal drip. He was discharged in stable condition. Lab Data Attestation: I reviewed the patient's lab results. Labs: Laboratory Results - last 24 hr 06/14/25 06/14/25 06/14/25 16:55 18:00 19:59 WBC 14.6 H RBC 4.64 Hgb 13.7 Hct 41.6 MCV 89.7 MCH 29.5 MCHC 32.9 RDW Std Deviation 44.8 H RDW Coeff of Micheal 13.7 Plt Count 264 MPV 10.3 Immature Gran % (Auto) 0.500 Neut % (Auto) 77.8 H Lymph % (Auto) 8.7 L [place] % (Auto) 12.6 H Eos % (Auto) 0.1 Baso % (Auto) 0.3 Absolute Neuts (auto) 11.3 H Absolute Lymphs (auto) 1.26 Nucleated RBC % 0 D-Dimer Quant (PE/DVT) 0.31 Sodium 138 Potassium 3.9 Chloride 103 Carbon Dioxide 23.9 Anion Gap 11 BUN 20 H Creatinine 0.92 Estim Creat Clear Calc 69.72 Est GFR (MDRD) Non-Af 82 BUN/Creatinine Ratio 22.1 H Glucose 111 H Calcium 8.9 Troponin T High Sens 13 Troponin T Hi Sens 2 Hr 12 Radiography Diagnostic Testing: Clinical Impression(s) from Imaging Studies Chest X-Ray 06/14/25 17:05 IMPRESSION: No acute cardiopulmonary abnormality. Reading Location: [facility] ED attending interpretation of 2 view chest x-ray shows normal heart size, no acute infiltrate. EKG Initial EKG: Attestation: I personally reviewed and interpreted this EKG as follows: Interpretation: Sinus Rhythm and No Acute Injury Pattern Comments: Sinus rhythm at 91 bpm with first-degree AV block, no ST changes Prior EKG tracings: available for review Prior: Unchanged <Dr. Rayshawn Yeager, DO - Last Filed: 06/14/25 21:29> [facility] Lab Data Labs: Laboratory Results - last 24 hr 06/14/25 06/14/25 06/14/25 16:55 18:00 19:59 WBC 14.6 H RBC 4.64 Hgb 13.7 Hct 41.6 MCV 89.7 MCH 29.5 MCHC 32.9 RDW Std Deviation 44.8 H RDW Coeff of Micheal 13.7 Plt Count 264 MPV 10.3 Immature Gran % (Auto) 0.500 Neut % (Auto) 77.8 H Lymph % (Auto) 8.7 L [place] % (Auto) 12.6 H Eos % (Auto) 0.1 Baso % (Auto) 0.3 Absolute Neuts (auto) 11.3 H Absolute Lymphs (auto) 1.26 Nucleated RBC % 0 D-Dimer Quant (PE/DVT) 0.31 Sodium 138 Potassium 3.9 Chloride 103 Carbon Dioxide 23.9 Anion Gap 11 BUN 20 H Creatinine 0.92 Estim Creat Clear Calc 69.72 Est GFR (MDRD) Non-Af 82 BUN/Creatinine Ratio 22.1 H Glucose 111 H Calcium 8.9 Troponin T High Sens 13 Troponin T Hi Sens 2 Hr 12 Radiography Diagnostic Testing: Clinical Impression(s) from Imaging Studies Chest X-Ray 06/14/25 17:05 IMPRESSION: No acute cardiopulmonary abnormality. Reading Location: [facility] Treatment and Re-Evaluation :: I have personally performed a face to face assessment of the patient and have reviewed the YADIRA Note. I performed a substantive portion of the visit including all aspects of the following. My muhammad findings include: History: Patient presents with chest pain that began yesterday. Patient admits to some shortness of breath with it. Patient describes it as dull. Patient states it is worse with deep breathing. Patient states nothing makes it better. Patient states it is over the lower substernal area. Patient states it has been constant since yesterday. Patient denies any nausea or vomiting. Patient denies any diaphoresis. Patient denies any cough or fever. Patient denies any heartburn or reflux. Exam: Vital signs are stable. Patient is afebrile. Patient is in no acute distress. Oral mucosa is pink and moist. Neck is supple. Trachea is midline. There is no JVD. Heart was regular rate and rhythm. Lungs are clear and equal bilaterally. Abdomen is soft. Bowel sounds are normal. There is no tenderness. Cranial nerves II through XII are intact. There are no focal motor or sensory deficits. Medical Decision Making: Differential diagnosis includes cardiac dysrhythmia, cardiac ischemia, electrolyte abnormality, pneumonia, bronchitis, pleurisy, and anxiety. EKG will be obtained to assess for cardiac dysrhythmia and cardiac ischemia. Chest x-ray will be obtained to assess for pneumonia or bronchitis. CBC will be obtained to assess for leukocytosis and anemia. Basic metabolic profile will be obtained to assess for electrolyte abnormality renal function. D-dimer will be obtained to assess for pulmonary embolism. High-sensitivity troponin will be obtained to assess for cardiac ischemia. 2-hour repeat high-sensitivity troponin will be obtained to assess for ongoing cardiac ischemia. EKG was obtained. On my independent interpretation, it shows a normal sinus rhythm with a rate of 91. There is a first-degree AV block. There are no acute ST or T wave changes noted. Portable 1 view chest x-ray was obtained. On my independent interpretation, lung campos are clear. There is normal cardiac silhouette. Bony thorax is normal. There is no acute process noted. Radiologist also interpreted the x-ray and agrees. CBC was reviewed. There is a mild leukocytosis of 14.6. The remainder is within normal limits. Basic metabolic profile was reviewed. Glucose was slightly elevated at 111 and BUN was minimally elevated at 20. The remainder is within normal limits. D-dimer was reviewed and was normal at 0.31. Initial high-sensitivity troponin was reviewed and was normal at 13. 2-hour repeat high-sensitivity troponin was reviewed and was normal at 12. Patient was advised of his findings. Patient was instructed to follow-up with his primary care physician in 5 to 7 days. Patient understood and was agreeable with the plan. All questions were answered. Discharge Plan Triage Chief Complaint: Chest Pain ED Midlevel Provider: Jennifer Sharp ED Provider: Rayshawn Yeager Dx/Rx/DC Orders Clinical Impression: Chest pain Instructions: ED Chest Pain, Uncertain Cause Prescriptions: No Action atorvastatin 40 mg tablet 40 mg PO QHS Qty: 90 3RF isosorbide mononitrate 30 mg tablet extended release 24 hr 30 mg PO DAILY Qty: 90 3RF vitamin E mixed 400 unit capsule 400 unit PO DAILY valsartan 320 mg tablet 320 mg PO DAILY metformin 500 mg tablet extended release 24 hr 500 mg PO BID diphenhydramine HCl [Benadryl] 25 mg capsule 25 mg PO QHS PRN montelukast 10 mg tablet 10 mg PO QHS Patient Comments: Take 1 tablet by mouthcdaily at bedtime. cetirizine 10 mg tablet 10 mg PO DAILY Patient Comments: Take 1 tablet by mouthionce daily. amlodipine 10 mg tablet 10 mg PO DAILY metoprolol succinate 50 mg tablet extended release 24 hr 100 mg PO DAILY tamsulosin 0.4 mg capsule 0.4 mg PO QDAY famotidine 20 mg tablet 20 mg PO DAILY Qty: 90 2RF hydrochlorothiazide 25 mg tablet 25 mg PO Q OTHER DAY Trulicity 3 mg/0.5 mL pen injector 3 mg subcut QWEEK Qty: 2 5RF aspirin 81 MG tablet 81 mg PO DAILY@0800 cholecalciferol (vitamin D3) 2,000 UNIT capsule 4,000 unit PO DAILY vit C,T-Op-uaaei-lutein-zeaxan 1 EACH capsule 1 cap PO BID Primary Care Provider: Care Physician,No Primary Referrals: Care Physician,No Primary [Primary Care Provider] - Activity Restrictions/Additional Instructions: Your testing here is normal and is rule out heart attacks or blood clots. There is no signs of an infection or pneumonia. I recommend you trial an nzan-ebb-[id number] allergy medicine like Claritin for your postnasal drip. Follow-up with your doctor. Print Language: Occitan Disposition Disposition: Home, Self Care
[2025-06-14 18:00] LABS: Differential Indicated SCAN CRITERIA MET
[2025-06-14 18:29] LABS: D-Dimer Quantitative (DVT/PE) 0.31 FEU/ug/m (0.27-0.49)
[2025-06-14 18:34] VITALS: BP 143/67; PULSE 86; RESP 16; O2SAT 98
[2025-06-14 18:42] LABS: Anion Gap 11 (5-15); BUN 20 mg/dL (4-19); BUN/Creat Ratio 22.1 RATIO (10-20); Calcium,Total 8.9 mg/dL (7.6-11.0); Carbon Dioxide 23.9 mmol/L (21.0-32.0); Chloride 103 mmol/L (98-108); Estimated Creatinine Clearance 69.72 ml/min (50-250); Glucose 111 mg/dL (70-99); Potassium 3.9 mmol/L (3.3-5.1); Troponin T High Sensitivity 13 ng/L (<=22)
[2025-06-14 19:00] VITALS: BP 167/75; PULSE 86; RESP 20; O2SAT 98
[2025-06-14 20:00] VITALS: BP 149/65; PULSE 82; RESP 17; O2SAT 97
[2025-06-14 21:00] VITALS: PULSE 81
[2025-06-14 21:09] LABS: Troponin T High Sens 2 HR 12 ng/L (<=22)
[2025-06-14 21:34] VITALS: BP 162/84; PULSE 82; RESP 16; TEMP 36.6; O2SAT 99
== END 2025-06-14 21:35 | disposition home or self-care (01) ==
PROVIDERS: Physician Assistant; Emergency Provider Emergency Medicine; Visit Provider Emergency Medicine
DX: R07.9 Chest pain, unspecified (principal); E11.9 Type 2 diabetes mellitus without complications; Z79.02 Long term (current) use of antithrombotics/antiplatelets; I25.10 Atherosclerotic heart disease of native coronary artery without angina pectoris; E78.5 Hyperlipidemia, unspecified; I10 Essential (primary) hypertension; Z87.891 Personal history of nicotine dependence; I44.0 Atrioventricular block, first degree; Z90.49 Acquired absence of other specified parts of digestive tract; Z95.5 Presence of coronary angioplasty implant and graft; Z79.82 Long term (current) use of aspirin
CPT/HCPCS: 71045; 80048; 84484; 85025; 85379; 93005; 99284; A4216

== ENCOUNTER 2025-06-19 15:46 | Emergency (ER) | payer MEDICARE, OTHER, SELFPAY ==
[2021-07-11 09:10] VITALS: BMI 34.9
[2025-06-19] VITALS (8 sets, daily range): BP systolic 93–164; BP diastolic 68–96; PULSE 81–102; RESP 13–20; TEMP 36.6–36.8; O2SAT 97–99; BMI 33.5
--- NOTE | 2025-06-19 15:25 | RAD_ITS ---
PROCEDURE: CHEST 1 VIEW (PORTABLE) 06/19/2025 REASON FOR EXAM: PALPITATIONS TECHNIQUE: Frontal view of the chest. COMPARISON: 06/14/2025 FINDINGS: Lungs/Pleura: Clear. No pneumothorax or pleural effusion. Heart/Mediastinum: Mild cardiomegaly. No vascular congestion. Bones/Soft tissues: Degenerative changes of the spine and bilateral AC joints. RAD/Chest 1 View (Portable) IMPRESSION: Cardiomegaly. No acute pulmonary disease. Reading Location: [id number]
--- NOTE | 2025-06-19 15:54 | EDS_ITS ---
HPI History of Present Illness Chief Complaint: Palpitations [facility] Medical History Hyperlipidemia Skin cancer Pneumonia Heart disease Gastrointestinal problem Gall stones Cataract Bone fracture Allergies Type 2 diabetes mellitus Hypertension Celiac disease Anxiety Coronary artery disease Hypertension Atherosclerotic heart disease of [place] coronary artery without angina pectoris Home Medications ?Medication ?Instructions ?Recorded ?Last Taken ?Type aspirin 81 mg tablet,delayed 81 mg PO DAILY@0800 heart health 03/18/21 04/03/21 History release cholecalciferol (vitamin D3) 50 4,000 unit PO DAILY JOHN PPLEMENT 03/18/21 03/18/21 History mcg (2,000 unit) capsule vit C 250 mg-vit E 90 mg-zinc 40 1 cap PO BID EYE HEAL TH 03/18/21 03/18/21 History mg-copper 1 [id number] capsule atorvastatin 40 mg tablet 40 mg PO QHS #90 tabs Unknown Rx isosorbide mononitrate 30 mg 30 mg PO DAILY #90 tabs 0 04/11/21 Unknown Rx tablet,extended release 24 hr vitamin E mixed 400 unit capsule 400 unit PO DAILY Unknown History metformin 500 mg tablet,extended 500 mg PO BID 2 Unknown History release 24 hr diphenhydramine HCl 25 mg capsule 25 mg PO QHS PRN 11/20 Unknown History (Benadryl) cetirizine 10 mg tablet 10 mg PO DAILY 10/19/23 Unkn own History montelukast 10 mg tablet 10 mg PO QHS 10/19/23 Unknow n History valsartan 320 mg tablet 320 mg PO DAILY 10/19/23 Unk nown History hydrochlorothiazide 25 mg tablet 25 mg PO Q OTHER DAY 07/19/24 Unknown History amlodipine 10 mg tablet 10 mg PO DAILY 12/26/24 Unkn own History metoprolol succinate 50 mg 100 mg PO DAILY 12/26/24 Un known History tablet,extended release 24 hr tamsulosin 0.4 mg capsule 0.4 mg PO QDAY 12/26/24 Unkn own History famotidine 20 mg tablet 20 mg PO DAILY #90 tabs 12/30 06/22 Unknown Rx dulaglutide 3 mg/0.5 mL 3 mg (0.5 mL) subcut QWEEK # 2 mL 01/17/25 Unknown Rx subcutaneous pen injector (SpineGuard) apixaban 5 mg tablet (Eliquis) 5 mg PO BID 30 days #60 tabs 06/19/25 Unknown Rx diltiazem HCl 120 mg 120 mg PO QHS 30 days #30 ca ps 06/19/25 Unknown Rx capsule,extended release 24 hr (Cardizem CD) Allergy/AdvReac Type Severity Reaction Status Date / Time gluten AdvReac upset Verified 06/19/25 15:49 stomach/diarrhea lactose AdvReac upset Verified 06/19/25 15:49 stomach/diarrhea Family History Other Asthma Cancer Diabetes H/O transfusion of whole blood Heart disease Hypertension Liver disease Melanoma Myocardial infarction Skin cancer Surgical History Hx of melanoma excision History of cholecystectomy Presence of coronary angioplasty implant and graft (~04/03/21) Presence of stent in coronary artery (~04/03/21) Social History Smoking Status: Former smoker how long ago did patient quit smokin years ago alcohol intake: current alcohol intake frequency: holidays/special occasions only substance use type: does not use caffeine: Yes Type: coffee Number of servings: 2 and tea Number of servings: 1 what type of physical activity do you participate in: other details: cardio frequency: 3-4 times per week EXAM Physical Exam Const Vital Signs: 06/19/25 15:47 06/19/25 16:45 06/19/25 17:00 Temperature 97.8 F Temperature Source Oral Pulse Rate 102 H 94 85 Respiratory Rate 20 H 15 16 Blood Pressure 164/96 H 128/73 H 114/69 Blood Pressure Mean 118 88 82 Pulse Ox 97 98 99 Oxygen Delivery Method Room Air 06/19/25 17:01 06/19/25 17:15 06/19/25 17:51 Temperature Temperature Source Pulse Rate 83 Respiratory Rate 16 Blood Pressure 127/72 H 93/68 Blood Pressure Mean 90 76 Pulse Ox 98 Oxygen Delivery Method Room Air 06/19/25 18:00 06/19/25 19:00 06/19/25 19:43 Temperature 98.2 F Temperature Source Pulse Rate 89 83 81 Respiratory Rate 15 13 14 Blood Pressure 125/76 H 140/83 H 140/75 H Blood Pressure Mean 90 102 96 Pulse Ox 99 98 99 Oxygen Delivery Method [facility] [place] [facility] Narrative Medical decision making narrative: HISTORY OF PRESENT ILLNESS: Chief complaint: Palpitation 85-year-old male history of hyperlipidemia, Crohn's disease, hypertension, obesity, type 2 diabetes, celiac disease, CAD status post stent patient currently on metoprolol 100 mg daily presents with palpitations. Patient was at his PCPs office and showed new onset A-fib. States has been states not felt well and noted some exertional shortness of breath. Denies any leg swelling. Denies any prior history of A-fib. Denies take metoprolol today secondary to going to his primary care doctor's office. Denies cough fever or chills does note postnasal drip. Denies nausea or vomiting. Denies bleeding diathesis. REVIEW OF SYSTEMS: Pertinent positives: Palpitations, shortness of Pertinent negatives: Chest pain, leg swelling PHYSICAL EXAM: Nursing triage notes reviewed, Vital signs reviewed Constitutional: please see [facility] HENT: MMM Eyes: Pupils equal round and reactive to light, Extraocular muscles intact Neck: No stridor, no JVD, full neck ROM Lungs: Clear to auscultation, No wheezing or rales. No increased work of breathing, no conversational dyspnea, no accessory muscle use, no nasal flaring. No respiratory distress noted Heart: Regular rate and rhythm, No murmurs, No rubs and No gallops, 2+ distal pulses (radial, femoral, posterior tibial) in all extremities Abdomen: Soft, there is no tenderness, rigidity, rebound or guarding, no obvious peritoneal signs, no palpable pulsatile abdominal masses, no auscultated abdominal bruit : No CVAT Extremities: No edema Neuro: No new focal neurological deficits, cranial nerves II through XII intact, 5/5 strength in all present extremities. Intact sensation to light touch in all present extremities, 2+ reflexes bilateral patella tendons. Skin: No rash or lesions noted MEDICAL DECISION MAKING: Chief Complaint: please see [facility] External records reviewed: Reviewed prior EKG. Reviewed EKG from 06/14/2025 which showed Normal sinus rhythm rate of 91, prolonged IN interval at 260 otherwise no A-fib factors affecting care: As per HPI Social determinants of health: n denies illicit drug History obtained from others: Son Consults: n cardiology (Dr. Locke) [facility] Narrative: The patient was initially tachycardic with heart rate of 102, tachypneic respiratory 20, hypertensive blood pressure 164/96, afebrile. No focal cardiopulmonary abnormalities noted I considered the following differential diagnosis: Arrhythmia, anemia, electrolyte disturbance, ACS, PE, thyroid dysfunction IV O2 monitor was placed. The patient did not meet criteria for emergent cardioversion and he was relatively stable hide no stiffness shortness of breath, hypoxia chest pain or hypotension. I obtained a broad lab and imaging to further determine if the patient was suffering from a life-threatening etiology. Initially gave 500 cc bolus and 10 mg of IV diltiazem ALL IMAGES (IF OBTAINED) HAVE BEEN PERSONALLY REVIEWED AND INTERPRETED BY MYSELF. Initial EKG showed atrial fibrillation rate of 96, normal axis, normal intervals, no STEMI CBC without leukocytosis, severe anemia, no thrombocytopenia. BMP without evidence of significant electrolyte abnormalities, no anion gap, no acute kidney injury. High-sensitivity troponin is negative, no evidence of myocardial ischemiax2 No sign of significant hyperthyroidism with a normal TSH I have personally reviewed the patient's chest x-ray. Chest x-ray is un remarkable for pulmonary edema, pneumothorax, pneumonia or focal cardiopulmonary abnormality. Coagulation studies pending I have personally reviewed the patient's chest x-ray. Chest x-ray is unremark able for pulmonary edema, pneumothorax, pneumonia or focal cardiopulmonary abnormality. Repeat EKG showed rate controlled A-fib and rate of 89 I consulted cardiology at this time approximately [address] Locke. Recommended discharge. Recommended discharging with 5 mg of Eliquis twice daily as well as starting diltiazem CD120 mg in the evening. Also recommended continuing metoprolol 100 mg in the morning. Discussed with patient risks of blood thinners. Strict return precautions were discussed. Proper follow-up was facilitated. The patient and/or family, caregivers express understanding. The patient and/or family, caregivers agrees with the plan. Shared decision making: I will have a discussion with the patient and or visitors regarding risk/benefits of further testing or admission. They will be made aware of of the risk/benefits inherent in this decision they will be given the opportunity to voice understanding. Total critical care time today provided was at least 0 minutes. This excludes separately billable procedures. Critical care time (if documented) is secondary to the patient having high probability of clinically significant/life threatening deterioration in the patient's condition which required my urgent intervention. Impression: 1. Palpitations 2. New onset A-fib 3. History of type 2 diabetes Dispo: Discharge home This note was generated with the [employer] dictation software. It may contain incorrect words, spelling, and punctuation that were not noted in review of the chart prior to signing. Lab Data Labs: Laboratory Results - last 24 hr 06/19/25 06/19/25 16:22 18:32 WBC 10.8 RBC 4.48 L Hgb 13.4 Hct 40.5 MCV 90.4 MCH 29.9 MCHC 33.1 RDW Std Deviation 45.4 H RDW Coeff of Micheal 13.6 Plt Count 313 MPV 9.9 Immature Gran % (Auto) 0.400 Neut % (Auto) 67.5 Lymph % (Auto) 21.7 [place] % (Auto) 7.6 Eos % (Auto) 2.2 Baso % (Auto) 0.6 Absolute Neuts (auto) 7.3 Absolute Lymphs (auto) 2.34 Nucleated RBC % 0 PT 15.5 H INR 1.2 APTT 26.9 Sodium 140 Potassium 3.6 Chloride 103 Carbon Dioxide 22.2 Anion Gap 15 BUN 23 H Creatinine 1.06 Estim Creat Clear Calc 62.15 Est GFR (MDRD) Non-Af 69 BUN/Creatinine Ratio 21.9 H Glucose 105 H Calcium 9.2 Troponin T High Sens 15 D Troponin T Hi Sens 2 Hr 13 TSH 1.180 Free T4 1.50 H Free T3 pg/dL 2.8 Radiography Diagnostic Testing: Clinical Impression(s) from Imaging Studies Chest X-Ray 06/19/25 15:25 IMPRESSION: Cardiomegaly. No acute pulmonary disease. Reading Location: [id number] Discharge Plan Triage Chief Complaint: Palpitations ED Provider: Luis Velasquez Dx/Rx/DC Orders Clinical Impression: Atrial fibrillation, new onset Instructions: AFib Dc Prescriptions: New Eliquis 5 mg tablet 5 mg PO BID 30 Days Qty: 60 0RF diltiazem HCl [Cardizem CD] 120 mg capsule,extended release 24hr 120 mg PO QHS 30 Days Qty: 30 0RF No Action atorvastatin 40 mg tablet 40 mg PO QHS Qty: 90 3RF isosorbide mononitrate 30 mg tablet extended release 24 hr 30 mg PO DAILY Qty: 90 3RF vitamin E mixed 400 unit capsule 400 unit PO DAILY valsartan 320 mg tablet 320 mg PO DAILY metformin 500 mg tablet extended release 24 hr 500 mg PO BID diphenhydramine HCl [Benadryl] 25 mg capsule 25 mg PO QHS PRN montelukast 10 mg tablet 10 mg PO QHS Patient Comments: Take 1 tablet by mouthcdaily at bedtime. cetirizine 10 mg tablet 10 mg PO DAILY Patient Comments: Take 1 tablet by mouthionce daily. amlodipine 10 mg tablet 10 mg PO DAILY metoprolol succinate 50 mg tablet extended release 24 hr 100 mg PO DAILY tamsulosin 0.4 mg capsule 0.4 mg PO QDAY famotidine 20 mg tablet 20 mg PO DAILY Qty: 90 2RF hydrochlorothiazide 25 mg tablet 25 mg PO Q OTHER DAY Trulicity 3 mg/0.5 mL pen injector 3 mg subcut QWEEK Qty: 2 5RF aspirin 81 MG tablet 81 mg PO DAILY@0800 cholecalciferol (vitamin D3) 2,000 UNIT capsule 4,000 unit PO DAILY vit C,F-Yy-fidvj-lutein-zeaxan 1 EACH capsule 1 cap PO BID Primary Care Provider: Jayesh Raphael Jr. Referrals: Jeromy Locke MD [Med Staff - Active Staff] - Activity Restrictions/Additional Instructions: Thank you for trusting us with your care today! Your labs and images are consistent with new onset atrial fibrillation. Atrial fibrillation is an abnormal heart rhythm that can increase your risk for stroke. In order to decrease your risk of stroke we have started you on a anticoagulant (blood thinner). This will decrease the risk of stroke. To control your abnormal heart rhythm we have started on a new medicine called diltiazem or Cardizem. Please take as prescribed I spoke with Dr. Locke he recommended you follow-up with the [facility] in the next week. Recommended you continue taking your metoprolol in the morning and take the newly prescribed diltiazem or Cardizem at night. Please return to the emergency department if your symptoms change or worsen. Specifically develop chest pain, shortness of breath, if you lose consciousness or if you develop significant leg swelling. Eliquis is a blood thinner can increase risk of bleeding. If develop nosebleeds or any other bleeding including dark stools please report to the ED immediately. Please follow with your primary care physician for further outpatient evaluation and management. Print Language: Czech Disposition Disposition: Home, Self Care Discharge Date/Time: 06/19/25 19:43
--- NOTE | 2025-06-19 16:12 | EKG12_ITS ---
Test Reason : CHEST PAIN Blood Pressure : */* mmHG Vent. Rate : 96 BPM Atrial Rate : * BPM P-R Int : * ms QRS Dur : 72 ms QT Int : 356 ms P-R-T Axes : * 10 70 degrees QTcB Int : 449 ms Atrial fibrillation Nonspecific ST abnormality Abnormal ECG Confirmed by Jeromy Locke ([id number]), newspaper or periodical editor MALIK JAIME ([id number]) on 06/20/2025 1:55:13 PM Referred By: Confirmed By: Jeromy Locke
[2025-06-19 16:35] LABS: Hematocrit 40.5 % (40-54); Hemoglobin 13.4 g/dL (13.0-16.5); Immature Granulocytes Count 0.040 X10^3/uL (0.0-0.0); Mean Corp Hgb Conc 33.1 g/dL (32-36); Mean Corpuscular Volume 90.4 fL (80-94); Mean Platelet Vol. 9.9 fl (6.2-12.0); NRBC Flagged by Analyzer 0 % (0-5); Platelet Count 313 K/mm3 (150-450); RBC Distribution Width CV 13.6 % (11.6-14.6); RBC Distribution Width SD 45.4 fl (35.1-43.9); Red Blood Count 4.48 M/mm3 (4.6-6.2); White Blood Count 10.8 K/mm3 (4.4-11.0)
[2025-06-19] MEDS: 0.9% Normal Saline (500mL Bag) 500 ML 999 ML IV (16:55)
[2025-06-19 17:17] LABS: Anion Gap 15 (5-15); BUN 23 mg/dL (4-19); BUN/Creat Ratio 21.9 RATIO (10-20); Calcium,Total 9.2 mg/dL (7.6-11.0); Carbon Dioxide 22.2 mmol/L (21.0-32.0); Chloride 103 mmol/L (98-108); Estimated Creatinine Clearance 62.15 ml/min (50-250); Glucose 105 mg/dL (70-99); Potassium 3.6 mmol/L (3.3-5.1)
[2025-06-19 17:44] LABS: Free T3 2.8 pg/mL (2.18-3.98); Troponin T High Sensitivity 15 ng/L (<=22)
--- NOTE | 2025-06-19 18:42 | EKG12_ITS ---
Test Reason : REPEAT Blood Pressure : */* mmHG Vent. Rate : 89 BPM Atrial Rate : * BPM P-R Int : * ms QRS Dur : 74 ms QT Int : 380 ms P-R-T Axes : * 13 51 degrees QTcB Int : 462 ms Atrial fibrillation Abnormal ECG Confirmed by Jeromy Locke ([id number]), television news video editor MALIK JAIME ([id number]) on 06/20/2025 1:53:51 PM Referred By: TA Confirmed By: Jeromy Locke
[2025-06-19 19:09] LABS: Partial Thromboplast Time 26.9 Seconds (24.1-36.2)
[2025-06-19 19:14] LABS: Troponin T High Sens 2 HR 13 ng/L (<=22)
[2025-06-19 19:23] LABS: Prothrombin Time (Protime)PT. 15.5 SECONDS (11.7-14.9)
[2025-06-19] MEDS: APIXABAN 5 MG TABLET PO (19:39)
== END 2025-06-19 19:43 | disposition home or self-care (01) ==
PROVIDERS: Emergency Provider Emergency Medicine; PCP Emergency Medicine; Visit Provider Emergency Medicine
DX: I48.91 Unspecified atrial fibrillation (principal); E11.9 Type 2 diabetes mellitus without complications; E78.5 Hyperlipidemia, unspecified; Z87.891 Personal history of nicotine dependence; I25.10 Atherosclerotic heart disease of native coronary artery without angina pectoris; I10 Essential (primary) hypertension; Z95.5 Presence of coronary angioplasty implant and graft; Z90.49 Acquired absence of other specified parts of digestive tract
CPT/HCPCS: 71045; 80048; 84439; 84443; 84481; 84484; 85025; 85610; 85730; 93005; 96361; 96374; 99284; A4216

== ENCOUNTER → 2025-06-26 | Outpatient (CLI) | payer MEDICARE, OTHER, SELFPAY ==
[2021-07-11 09:10] VITALS: BMI 34.9
[2025-06-26 11:32] LABS: Hematocrit 35.8 % (40-54); Hemoglobin 11.9 g/dL (13.0-16.5); Immature Granulocytes Count 0.040 X10^3/uL (0.0-0.0); Mean Corp Hgb Conc 33.2 g/dL (32-36); Mean Corpuscular Volume 91.8 fL (80-94); Mean Platelet Vol. 10.0 fl (6.2-12.0); NRBC Flagged by Analyzer 0 % (0-5); Platelet Count 349 K/mm3 (150-450); RBC Distribution Width CV 13.8 % (11.6-14.6); RBC Distribution Width SD 46.5 fl (35.1-43.9); Red Blood Count 3.90 M/mm3 (4.6-6.2); White Blood Count 10.6 K/mm3 (4.4-11.0)
[2025-06-26 12:13] LABS: AST(SGOT) 12 U/L (<=37); Alanine Aminotransfer ALT/SGPT 12 U/L (<=46); Albumin, Serum 3.7 g/dL (3.4-4.8); Alkaline Phosphatase 92 U/L (40-129); Anion Gap 14 (5-15); BUN 23 mg/dL (4-19); BUN/Creat Ratio 20.3 RATIO (10-20); Calcium,Total 9.1 mg/dL (7.6-11.0); Carbon Dioxide 22.7 mmol/L (21.0-32.0); Chloride 103 mmol/L (98-108); Free T3 2.8 pg/mL (2.18-3.98); Globulin 2.8 g/dL (2.2-4.2); Glucose 115 mg/dL (70-99); Potassium 4.1 mmol/L (3.3-5.1)
[2025-06-26 12:29] LABS: CRP 18.00 mg/L (0.0-3.0); LDH 210 U/L (87-241)
[2025-06-28 11:08] LABS: Albumin 3.3 g/dL (2.9-4.4); Gamma Globulin 0.8 g/dL (0.4-1.8); Immunoglobulin A 102 mg/dL (61-437); Immunoglobulin G 866 mg/dL (603-1613); Immunoglobulin M 79 mg/dL (15-143); PROEL- TOTAL PROTEIN 6.1 g/dL (6.0-8.5)
== END | disposition home or self-care (01) ==
LOC: LAB 10:34
PROVIDERS: PCP Emergency Medicine; Referring Provider Internal Medicine Gastroenterology; Visit Provider Internal Medicine Gastroenterology
DX: I48.91 Unspecified atrial fibrillation (principal); K50.90 Crohn's disease, unspecified, without complications; R53.83 Other fatigue; D64.9 Anemia, unspecified
CPT/HCPCS: 36415; 80053; 82784; 83516; 83615; 84165; 84439; 84443; 84481; 85025; 85652; 86140; 86255; 86334

== ENCOUNTER 2025-06-28 08:00 | Outpatient (RCR) | payer SELFPAY ==
[2021-07-11 09:10] VITALS: BMI 34.9
== END 2025-06-28 23:59 ==
LOC: CR 08:00
PROVIDERS: Referring Provider Internal Medicine Cardiovascular Disease; Visit Provider Internal Medicine Cardiovascular Disease
DX: Z00.00 Encounter for general adult medical examination without abnormal findings (principal)

== ENCOUNTER 2025-07-03 09:48 | Outpatient (RCR) | payer SELFPAY ==
[2021-07-11 09:10] VITALS: BMI 34.9
== END 2025-07-29 23:59 ==
LOC: CR 09:48
PROVIDERS: PCP Emergency Medicine; Referring Provider Internal Medicine Cardiovascular Disease; Visit Provider Internal Medicine Cardiovascular Disease
DX: Z00.00 Encounter for general adult medical examination without abnormal findings (principal)

== ENCOUNTER → 2025-07-05 | Outpatient (CLI) | payer MEDICARE, OTHER, SELFPAY ==
[2021-07-11 09:10] VITALS: BMI 34.9
[2025-07-05 10:11] LABS: Hematocrit 35.0 % (40-54); Hemoglobin 11.1 g/dL (13.0-16.5); Immature Granulocytes Count 0.060 X10^3/uL (0.0-0.0); Immature Reticulocyte Fraction 14.70 % (3.00-15.90); Mean Corp Hgb Conc 31.7 g/dL (32-36); Mean Corpuscular Volume 92.6 fL (80-94); Mean Platelet Vol. 9.8 fl (6.2-12.0); NRBC Flagged by Analyzer 0 % (0-5); Platelet Count 301 K/mm3 (150-450); RBC Distribution Width CV 14.6 % (11.6-14.6); RBC Distribution Width SD 49.2 fl (35.1-43.9); Red Blood Count 3.78 M/mm3 (4.6-6.2); Reticulocyte Count 2.20 % (0.5-1.5); White Blood Count 11.6 K/mm3 (4.4-11.0)
[2025-07-05 10:48] LABS: Ferritin 85 ng/mL (37-417); Iron 28 ug/dL (65-175)
[2025-07-06 04:07] LABS: Transferrin 198 mg/dL (149-313)
== END | disposition home or self-care (01) ==
LOC: LAB 09:22
PROVIDERS: PCP Emergency Medicine; Referring Provider Internal Medicine Gastroenterology; Visit Provider Internal Medicine Gastroenterology
DX: D64.9 Anemia, unspecified (principal); K50.90 Crohn's disease, unspecified, without complications; I48.91 Unspecified atrial fibrillation; R53.83 Other fatigue
CPT/HCPCS: 36415; 82728; 83540; 84466; 85025; 85045

== ENCOUNTER 2025-07-23 10:23 | Day surgery (SDC) | payer MEDICARE, OTHER, SELFPAY ==
[2021-07-11 09:10] VITALS: BMI 34.9
[2025-07-20 08:54] VITALS: BMI 33.0
--- NOTE | 2025-07-23 12:31 | EKG12_ITS ---
Test Reason : afib Blood Pressure : */* mmHG Vent. Rate : 108 BPM Atrial Rate : * BPM P-R Int : * ms QRS Dur : 68 ms QT Int : 302 ms P-R-T Axes : * 15 141 degrees QTcB Int : 404 ms Atrial fibrillation with rapid ventricular response Low voltage QRS Septal infarct , age undetermined Abnormal ECG When compared with ECG of 28-Jun-2025 13:47, Septal infarct is now Present Confirmed by EDWIN MATHEWS, PARMINDER ([id number]), assignment editor YANELIS MELTON ([id number]) on 07/24/2025 6:10:40 AM Referred By: Parminder Parks Confirmed By: PARMINDER PARKS MD
--- NOTE | 2025-07-23 12:37 | PCM.OP.PRO2 ---
Non-invasive Procedural Procedure Information Date of Procedure: 07/23/25 Pre-Procedure Diagnosis: Atrial fibrillation Post-Procedure Diagnosis: Atrial fibrillation Procedure Performed:: DC cardioversion Procedure Time Out: 12:30 Procedure Start Time: 12:35 Procedure Stop Time: 12:37 Special Medications: Intravenous propofol 40 mg Description of procedure: The patient was brought to cardiac catheterization lab in the postabsorptive nonsedated state. Informed consent was obtained. Anterior posterior pads were applied. The patient was seen by Dr. Barnes of the critical care division. 40 mg intravenous propofol was administered and 200 J of synchronized biphasic DC cardioversion energy were applied with prompt reversal to sinus rhythm. Patient tolerated the procedure well. Procedure findings: Successful DC cardioversion from atrial fibrillation to sinus rhythm. Continue as per office protocol.
--- NOTE | 2025-07-23 12:49 | PRO.PCM_ITS ---
Procedures Pulmonary Pulmonary Procedures /Diagnostic Testin Con Sedation Non-invasive Procedural Procedure Information Date of Procedure: 07/23/25 Description of procedure: CONSCIOUS SEDATION REPORT DATE OF SERVICE: July 23, 2025 BRIEF HISTORY OF PRESENT ILLNESS: The patient is an 85-year-old male who presented to [facility] to undergo an elective outpatient cardioversion due to underlying atrial fibrillation. The patient has never previously undergone a cardioversion. He denied any history of any anesthetic complications. While he does have a known history of obstructive sleep apnea, he does not currently utilize any form of nocturnal PAP therapy. The patient is systemically anticoagulated on Eliquis. His last surface echocardiogram demonstrated an ejection fraction of 65%. PHYSICAL EXAMINATION: VITAL SIGNS: Reviewed and were acceptable. GENERAL: The patient is a male, in no apparent distress, speaking in full sentences. HEENT: Normocephalic, atraumatic. Mucous membranes are moist and pink. Good mouth opening noted. Trachea is midline. Good neck mobility. CHEST: S1, S2 irregularly irregular. No murmurs, rubs or gallops were noted. LUNGS: Clear to auscultation bilaterally without appreciable wheezes, rales or rhonchi. ABDOMEN: Soft, nontender, nondistended. Positive bowel sounds. EXTREMITIES: There is no clubbing, cyanosis or edema. ASA Class: II DESCRIPTION OF PROCEDURE: After confirmation of informed consent, the patient's anesthesia plan was reviewed in detail. Propofol was chosen. Risks and benefits were reviewed and the patient agreed to proceed. At 1226, the patient was given 40 mg of propofol. The patient achieved an appropriate level of sedation and was given a 200 joule synchronized cardioversion by Dr. Parks at the bedside. This was succ essful in achieving normal sinus rhythm. The patient was monitored until 1239, at which time he reached his baseline mental status and function. The patient tolerated the procedure well. COMPLICATIONS: None ESTIMATED BLOOD LOSS: None RECOMMENDATIONS: Okay to recover in usual fashion.
== END 2025-07-23 13:45 | disposition home or self-care (01) ==
PROVIDERS: PCP Emergency Medicine; Referring Provider Internal Medicine Cardiovascular Disease; Visit Provider Internal Medicine Cardiovascular Disease
DX: I48.91 Unspecified atrial fibrillation (principal); E11.9 Type 2 diabetes mellitus without complications; I10 Essential (primary) hypertension; E78.5 Hyperlipidemia, unspecified; K90.0 Celiac disease; I25.10 Atherosclerotic heart disease of native coronary artery without angina pectoris; F41.9 Anxiety disorder, unspecified; Z95.1 Presence of aortocoronary bypass graft; Z79.01 Long term (current) use of anticoagulants; Z79.82 Long term (current) use of aspirin; Z79.84 Long term (current) use of oral hypoglycemic drugs; Z79.85 Long-term (current) use of injectable non-insulin antidiabetic drugs; Z85.820 Personal history of malignant melanoma of skin; Z79.899 Other long term (current) drug therapy; Z87.891 Personal history of nicotine dependence
CPT/HCPCS: 92960; 93005

== ENCOUNTER 2025-07-31 09:45 | Outpatient (RCR) | payer SELFPAY ==
[2021-07-11 09:10] VITALS: BMI 34.9
== END 2025-08-28 23:59 ==
LOC: CR 09:45
PROVIDERS: PCP Emergency Medicine; Referring Provider Internal Medicine Cardiovascular Disease; Visit Provider Internal Medicine Cardiovascular Disease
DX: Z00.00 Encounter for general adult medical examination without abnormal findings (principal)

== ENCOUNTER 2025-08-17 18:48 | Inpatient (IN) | payer MEDICARE, OTHER, SELFPAY ==
[2021-07-11 09:10] VITALS: BMI 34.9
[2025-08-17 18:54] VITALS: BP 123/88; PULSE 89; RESP 18; TEMP 36.4; O2SAT 96; BMI 37.7
--- NOTE | 2025-08-17 19:34 | EKG12_ITS ---
Test Reason : SYNCOPE Blood Pressure : */* mmHG Vent. Rate : 102 BPM Atrial Rate : * BPM P-R Int : * ms QRS Dur : 70 ms QT Int : 302 ms P-R-T Axes : * 8 162 degrees QTcB Int : 393 ms Atrial fibrillation with rapid ventricular response Low voltage QRS Nonspecific ST and T wave abnormality Abnormal ECG Confirmed by EDWIN MATHEWS, JERSEY ([id number]), editor managing newspaper MALIK JAIME ([id number]) on 08/20/2025 8:11:59 AM Referred By: PEEWEE Confirmed By: JERSEY PINEDA MD
--- NOTE | 2025-08-17 19:35 | EX.ED.DYSGE1 ---
HPI History of Present Illness Chief Complaint: Syncope Informant: patient and family Narrative Narrative: Patient 85-year-old male with recent diagnosis of atrial fibrillation (about 2 months ago (on chronic Eliquis therapy, celiac's disease, type 2 diabetes mellitus, hypertension, coronary artery disease presenting with syncope as well as worsening dyspnea on exertion. Patient states he had 2 syncopal episodes this week. He had another episode earlier this week when he was getting up from going to the bathroom. He fell and injured his right elbow (bruised it). Prior to arrival today he felt he may have a bowel movement some toilet. Notes he did not have a bowel movement and then when he went to stand up the next thing he know he was falling on the ground. He struck his left eyebrow area. Sustained a small skin tear to his left elbow denies any other injuries. Notes over the past week he has been having worsening dyspnea on exertion. He states he can even walk out of the house to the driveway without getting short of breath. He is having this progressive shortness of breath over the past 2 months and attributes it to being in atrial fibrillation. States that he did undergo cardioversion about 2 months ago however it did not take any went back in A-fib. He notes that he has been feeling more thirsty. Denies any weight gain and actually reports some weight loss. Denies any fever or chills. Denies any nausea or vomiting. Does report is been having diarrhea but denies any black or blood in his stool. Denies any chest pain. Denies any URI symptoms no other complaints or concerns at this time [facility] Medical History Atrial fibrillation Hyperlipidemia Skin cancer Pneumonia Heart disease Gastrointestinal problem Gall stones Cataract Bone fracture Allergies Type 2 diabetes mellitus Hypertension Celiac disease Anxiety Coronary artery disease Hypertension Atherosclerotic heart disease of [place] coronary artery without angina pectoris Home Medications ?Medication ?Instructions ?Recorded ?Last Taken ?Type aspirin 81 mg tablet,delayed 81 mg PO DAILY@0800 [facility] 03/18/21 07/23/25 History release cholecalciferol (vitamin D3) 50 4,000 unit PO DAILY SUPPLEMENT 03/18/21 03/18/21 History mcg (2,000 unit) capsule vit C 250 mg-vit E 90 mg-zinc 40 1 cap PO BID [facility] 03/18/21 03/18/21 History mg-copper 1 [id number] capsule atorvastatin 40 mg tablet 40 mg PO QHS #90 tabs 04/11/21 Unknown Rx isosorbide mononitrate 30 mg 30 mg PO DAILY #90 tabs 04/11/21 Unknown Rx tablet,extended release 24 hr vitamin E mixed 400 unit capsule 400 unit PO DAILY 02/16/22 Unknown History montelukast 10 mg tablet 10 mg PO QHS 10/19/23 Unknown History valsartan 320 mg tablet 320 mg PO DAILY 10/19/23 07/23/25 History hydrochlorothiazide 25 mg tablet 25 mg PO Q OTHER DAY 07/19/24 Unknown History tamsulosin 0.4 mg capsule 0.4 mg PO BID 12/26/24 Unknown History famotidine 20 mg tablet 20 mg PO DAILY #90 tabs 01/15/25 Unknown Rx dulaglutide 3 mg/0.5 mL 3 mg (0.5 mL) subcut QWEEK #2 mL 06/28/25 Unknown Rx subcutaneous pen injector (Trulicity) metformin 500 mg tablet,extended 500 mg PO DAILY 06/28/25 Unknown History release 24 hr apixaban 5 mg tablet (Eliquis) 5 mg PO BID #180 tabs 07/12/25 07/23/25 Rx amiodarone 200 mg tablet 200 mg PO DAILY #30 tabs 08/02/25 Unknown Rx metoprolol succinate 50 mg 50 mg PO DAILY #90 tabs 08/02/25 Unknown Rx tablet,extended release 24 hr diltiazem HCl 120 mg 120 mg PO QHS 08/17/25 Unknown History capsule,extended release 24 hr Allergy/AdvReac Type Severity Reaction Status Date / Time gluten AdvReac upset Verified 08/17/25 18:54 stomach/diarrhea lactose AdvReac upset Verified 08/17/25 18:54 stomach/diarrhea Family History Other Asthma Cancer Diabetes H/O transfusion of whole blood Heart disease Hypertension Liver disease Melanoma Myocardial infarction Skin cancer Surgical History Hx of melanoma excision History of cholecystectomy Presence of coronary angioplasty implant and graft (~04/03/21) Presence of stent in coronary artery (~04/03/21) Social History Smoking Status: Former smoker how long ago did patient quit smokin years ago alcohol intake: current alcohol intake frequency: holidays/special occasions only substance use type: does not use caffeine: Yes Type: coffee Number of servings: 2 and tea Number of servings: 1 what type of physical activity do you participate in: other details: cardio frequency: 3-4 times per week ROS ROS ED Constitutional Constitutional ED: Reports other Details: syncope ; Denies chills or fever(s) Eyes Eyes: Denies blurry vision Cardiovascular Cardiovascular: Denies chest pain or palpitations Respiratory/Chest Respiratory/Chest: Reports dyspnea and dyspnea on exertion; Denies sputum Gastrointestinal Gastrointestinal: Reports diarrhea; Denies abdominal pain, melena, nausea or vomiting Genitourinary Genitourinary ED: Denies dysuria, hematuria or urinary frequency Musculoskeletal Musculoskeletal: Denies arthralgias or myalgias Integumentary Reports Abrasions and other Details: laceration to left eyebrow Neurologic Neurologic: Reports weakness; Denies headache(s) or paresthesias Hematologic/Lymphatic Hematologic/Lymphatic: Reports easy bleeding, easy bruising and other Details: on Eliquis EXAM Physical Exam Const Vital Signs: 08/17/25 18:54 08/17/25 18:56 08/17/25 20:03 Temperature 97.6 F L Temperature Source Oral Pulse Rate 89 97 Respiratory Rate 18 24 H Respiratory Effort Normal Non-Labored Blood Pressure 123/88 H 118/89 H Blood Pressure Mean 99 98 Pulse Ox 96 95 Oxygen Delivery Method Room Air Room Air 08/17/25 21:00 08/17/25 22:06 Temperature Temperature Source Pulse Rate 90 95 Respiratory Rate 20 H 16 Respiratory Effort Blood Pressure 137/101 H 128/87 H Blood Pressure Mean 113 100 Pulse Ox 95 Oxygen Delivery Method Room Air Positive well nourished and well developed General Appearance ED: well developed and NAD HEENT Reports TM's clear and moist mucous membranes HEENT Narrative: Laceration approximately 3 cm in length to the left eyebrow (lateral aspect). No epistaxis present. No signs of basilar skull fracture including hemotympanum. No nasal septal hematoma. No trismus. Tympanic Membrane ED: Yes TM's clear Eyes PERRL and EOMs intact bilaterally Eyes Narrative: Normal eyelids Neck supple General: Negative for tenderness Chest Wall inspection of chest normal and palpation of chest normal Resp Resp Narrative: Mildly tachypneic with conversational dyspnea. Diminished breath sounds at the left base. No wheezing rhonchi or rales appreciate Cardio regular rate Rhythm: abnormal rhythm irregularly irregular GI normal to inspection, nondistended, normoactive bowel sounds and non-tender Extremity normal to inspection Extremity Narrative: No bony tenderness of the extremities. No obvious deformity. Normal range of motion General Extremety ED: Negative for edema or tenderness General Extremity: Negative for edema Neuro oriented x3, CN's II-XII intact bilaterally and no sensory deficits noted Sensorium / Orientation: alert Motor Exam: strength 5/5 throughout and general weakness Psych mental status grossly normal Skin Skin Narrative: Laceration to the left eyebrow's?see ENT exam. Full-thickness 3 cm laceration present. 1 cm skin tear to the olecranon on the left. Some scattered bruising to the right elbow. MDM MDM MDM Narrative Medical decision making narrative: Patient evaluated for recurrent syncopal episode and worsening shortness of breath. Patient hit his head and has a laceration requiring suture repair. See procedure note. Differential includes cardiogenic syncope, pleural effusion, pneumonia, symptomatic anemia, arrhythmia, hypovolemia, intracranial hemorrhage and skull fractures or cervical spine fracture. Patient hemodynamically stable in emergency room. This time he appears euvolemic. He does not report any infectious symptoms such as new sputum production with cough, fevers or chills. I suspect this more cardiogenic will hold off on given IV fluids at this time. He does have a leukocytosis of 14.6 unclear whether this is acutely infectious versus reactive. Hemoglobin is 11.6 which is mildly above his baseline. INR 2.5 however patient is on Eliquis. He has a mildly elevated anion gap of 16 and his creatinine is 1.37 which is a little bit above his baseline. High sensitive troponin initially is 40 however on repeat is 25. Unclear if he did have some type of cardiac event or transient hypotension to cause a bump in his troponin. His BNP however is also elevated at 2300. Chest x-ray reviewed by myself as well as radiology shows cardiomegaly with pulmonary vascular congestion as well as a large left pleural effusion with likely superimposed consolidation. His presentation is still mixed as far as whether this is pneumonia versus cardiogenic pleural effusion. CTs obtained of the chest for further evaluation. CT of the brain and cervical spine does not show any acute traumatic injury but actually shows a moderate to large left and small right pleural effusion. CT of the chest shows mild cardiomegaly with moderate pericardial effusion, mild right and moderate left pleural effusion as well as bilateral atelectasis with possible consolidation in the posterior left lung base. These results are discussed with hospitalist. Patient will be admitted for further respiratory management, evaluation for syncope and for his pleural effusions. Antibiotic will be started on the floor. Patient is agreeable this plan of care. As patient is symptomatic even with talking as far as dyspnea I do think he needs inpatient workup for this and is not safe to go home at this time History & Record Review Additional record(s) reviewed:: Prior outpatient record (Cardiology note from 06/28/2025) Lab Data Attestation: I reviewed the patient's lab results. Labs: Laboratory Results - last 24 hr 08/17/25 08/17/25 19:55 21:55 WBC 14.6 H RBC 4.25 L Hgb 11.6 L Hct 36.6 L MCV 86.1 MCH 27.3 MCHC 31.7 L RDW Std Deviation 48.0 H RDW Coeff of Micheal 15.5 H Plt Count 366 MPV 9.1 Immature Gran % (Auto) 1.000 H Neut % (Auto) 83.8 H Lymph % (Auto) 6.8 L Sampson % (Auto) 7.7 Eos % (Auto) 0.3 Baso % (Auto) 0.4 Absolute Neuts (auto) 12.3 H Absolute Lymphs (auto) 0.99 Nucleated RBC % 0 PT 27.2 H INR 2.5 APTT 32.9 Sodium 138 Potassium 3.6 Chloride 99 Carbon Dioxide 22.0 Anion Gap 16 H BUN 41 H Creatinine 1.37 H Estim Creat Clear Calc 51.01 Est GFR (MDRD) Non-Af 51 L BUN/Creatinine Ratio 29.9 H Glucose 119 H Calcium 9.0 Magnesium 2.0 Total Bilirubin 0.93 AST 37 ALT 41 Alkaline Phosphatase 182 H Troponin T High Sens 40 H D Troponin T Hi Sens 2 Hr 25 H NT pro BNP II 2332 H Total Protein 6.6 Albumin 3.6 Globulin 3.0 Albumin/Globulin Ratio 1.2 Radiography Diagnostic Testing: Clinical Impression(s) from Imaging Studies Brain CT 08/17/25 20:15 IMPRESSION: 1. No acute intracranial abnormality. 2. No acute cervical spine fracture or traumatic malalignment. 3. Heterogeneous nodular thyroid gland; may be further assessed with ultrasound. 4. Moderate-large left and small right pleural effusions seen in the upper thorax. Reading Location: [facility] Cervical Spine CT 08/17/25 20:15 IMPRESSION: 1. No acute intracranial abnormality. 2. No acute cervical spine fracture or traumatic malalignment. 3. Heterogeneous nodular thyroid gland; may be further assessed with ultrasound. 4. Moderate-large left and small right pleural effusions seen in the upper thorax. Reading Location: [facility] Chest X-Ray 08/17/25 20:20 IMPRESSION: 1. Moderate left pleural effusion with likely superimposed consolidation. 2. Mild cardiomegaly with mild pulmonary vascular congestion. Reading Location: [facility] Chest CT 08/17/25 21:10 IMPRESSION: 1. Mild cardiomegaly with moderate pericardial effusion. 2. Mild right and moderate left pleural effusions. 3. Bibasilar atelectasis with possible consolidation of the posterior left lung base. Reading Location: [facility] Rhythm Strip Rhythm Strip: A-fib Rate: 102 Ectopy: None EKG Initial EKG: Attestation: I personally reviewed and interpreted this EKG as follows: Interpretation: Atrial Fibrillation Comments: Atrial fibrillation at a rate of 102 bpm Normal axis Low voltage QRS Normal ST segments Prior EKG tracings: available for review Prior: Unchanged Management Discussion w/another healthcare provider: Hospitalist Procedures Lacerations left eyebrow : Length: 1.18 in Depth: Skin Shape: Linear Prep: Sterile Conditions and Chlorhexadine Laceration repair: Lidocaine with epi and Local Irrigated (ml): 200 Number of Sutures/Graeme: 5 Suture Information: Ethilon, Simple and 5-0 Discharge Plan Dx/Rx/DC Orders Clinical Impression: Syncope and collapse, Atrial fibrillation, Presence of stent in coronary artery, Laceration of left eyebrow, Pleural effusion, Pericardial effusion, Dyspnea, Current use of intermediate manager anticoagulation Disposition Disposition: Acute Care [facility] Discharge Date/Time: 08/17/25 23:59
[2025-08-17] MEDS: Lidocaine 1% /Epi 1:100 (20ml) 20 ML Vial INFILT (19:58)
[2025-08-17 20:03] VITALS: BP 118/89; PULSE 97; RESP 24; O2SAT 95
[2025-08-17 20:04] LABS: Hematocrit 36.6 % (40-54); Hemoglobin 11.6 g/dL (13.0-16.5); Immature Granulocytes Count 0.140 X10^3/uL (0.0-0.0); Mean Corp Hgb Conc 31.7 g/dL (32-36); Mean Corpuscular Volume 86.1 fL (80-94); Mean Platelet Vol. 9.1 fl (6.2-12.0); NRBC Flagged by Analyzer 0 % (0-5); Platelet Count 366 K/mm3 (150-450); RBC Distribution Width CV 15.5 % (11.6-14.6); RBC Distribution Width SD 48.0 fl (35.1-43.9); Red Blood Count 4.25 M/mm3 (4.6-6.2); White Blood Count 14.6 K/mm3 (4.4-11.0)
--- OUTSIDE RECORDS SUMMARY | 2025-08-17 20:09 | XMS RPT_ITS | CCD ---
Author Organization [facility] Care Team Providers Care Tax Processor Name Role Phone EL-MIMI SALIM C Unavailable Unavailable 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 Unavailable Unavailable DAO RAPHAEL JR Unavailable Unavailable DAO RAPHAEL JR Unavailable Unavailable Dr. Tolu Franz Attending Provider [phone] [facility], Out of [facility] Referring Provider Unavailab le Care Physician, No Primary Referring Provider Un available TAO Arredondo Attending Provider TAO Arredondo Attending Provider [facility] Doctor, Out of Primary [facility], Out of Referring Provider Unavailab micheal [facility] Doctor, Out of Primary Care Provider TAO Rich Attending Provider Donavon Wesley MD, Dao Burgess Primary Care Provider Donavon Wesley MD, George G Unavailable ZORAIDA Zambrano Attending Provider FriendDr. Junior Attending Provider Donavon Wesley MD, George G Primary Care Provider [phone] [facility] Doctor, Out of Primary Care Provider [facility], Out of Referring Provider UnavailZORAIDA Dickerson Attending Provider Dr. Vernon Prado Attending Provider [phone] [facility] Doctor, Out of Primary Care Provider [facility], Out of Referring Provider DAO Alva Primary Care Provider Unavailabl e TAO Arredondo Attending Provider Donavon Wesley MD, Dao Burgess Primary Care Provider [phone] Donavon Wesley MD, Dao Burgess Unavailable [facility] Doctor, Out of Referring Provider Unavailab Dr. Vernon Magana Attending Provider DAO RAPHAEL Primary Care Provider Unavailabl e TAO Arredondo Attending Provider Tim CONWAY, [place] Mery Bower Attending Provider [facility] Doctor, Out of Referring Provider Unavailab DAO Montgomery Primary Care Provider Unavailabl e Dr. Vernon Prado Attending Provider DAO RAPHAEL Referring Provider Unavailable Donavon Wesley MD, Dao Burgess Unavailable MD Dao Raphael Jr Primary Care Provider [phone] MD Dao Raphael Jr Attending Provider TAO Arredondo Attending Provider DAO RAPHAEL Primary Care Provider Unavailabl e DAO RAPHAEL Referring Provider Unavailable Dr. Vernon Prado Attending Provider Dr. Vernon Prado Attending Provider [phone] [facility] TAO RAO Attending Provider DOA RAPHAEL Primary Care Provider Unavailabl DAO Robb Referring Provider Unavailable MD Dao Raphael Jr Primary Care Provider [phone] MD Dao Raphael Jr Attending Provider Dr. Vernon Prado Attending Provider TAO Arredondo Attending Provider Dao Raphael Jr Attending Unavailable Dao Raphael Jr Primary Care Unavailable Dao Raphael Jr Attending Unavailable Dao Raphael Jr Primary Care Unavailable Dr. Vernon Prado Attending Provider DAO RAPHAEL Primary Care Provider Unavailabl e DAO RAPHAEL Referring Provider Unavailable TAO Arredondo Attending Provider Donavon Wesley MD, Dao Burgess Primary Care Provider DAO RAPHAEL Primary Care Provider Dr. Tolu Franz MD Attending Provider Dr. Tolu Franz MD Referring Provider Charly MATHEWS, Dr. Zurita Attending Provider [phone] DAO RAPHAEL Primary Care Provider Unavailabl e DAO RAPHAEL Referring Provider Unavailable Charly MATHEWS, Dr. Zurita Referring Provider DAO RAPHAEL Primary Care Provider Johan SHAH, Dr. Junior Attending Provider Arnulfo LEAD PROGRAMMER-C, Holli Attending Provider [facility] Doctor, Out of Primary Care Provider [facility] Doctor, Out of Referring Provider Unavailab le Charly MATHEWS, Dr. Zurita Attending Provider [phone] DAO RAPHAEL Primary Care Provider Maria M MATHEWS, Dr. Motley Attending Provider Maria M MATHEWS, Dr. Motley Referring Provider Maria M MATHEWS, Dr. Motley Attending Provider Dr. Tolu Franz MD Referring Provider [facility] Doctor, Out of Primary Care Provider [facility] Physician, No Primary Primary Care Provider Unavailable Dr. Rayshawn Yeager DO Emergency Provider Dr. Rayshawn Yeager DO Attending Provider Dr. Luis Velasquez DO Emergency Provider Dr. Dao Raphael MD Primary Care Provider Dr. Tolu Franz MD Attending Provider Dr. Tolu Franz MD Referring Provider Dr. Luis Velasquez DO Attending Provider Dr. Vernon Prado DO Attending Provider Donavon MATHEWS, Dr. Dc Referring Provider [phone] Dr. Vernon Prado DO Referring Provider Kwabena BURGER, Charmaine Attending Provider [phone] Kwabena BURGER, Charmaine Other Provider Charly MATHEWS, Dr. Zurita Attending Provider [phone] Charly MATHEWS, Dr. Zurita Referring Provider [phone] Charly MATHEWS, Dr. Zurita Other Provider [phone] Cameron SHAH, Dr. Florez Attending Provider [phone] Maria M MATHEWS, Dr. Motley Attending Provider Maria M MATHEWS, Dr. Motley Referring Provider Care Physician, No Primary Primary Care Unava ilable Rayshawn Yeager Attending Unavailable [facility] Doctor, Out of Primary Care Unavailable Moodispaw, Tolu Attending Unavailable Moodispaw, Tolu Referring Unavailable Moodispaw, Tolu Referring Unavailable Moodispaw, Tolu Attending Unavailable Luis Velasquez Attending Unavailable Raphael Jr., Raymond Primary Care Unavailable Moodispaw, Tolu Referring Unavailable Mood[place], Tolu Attending Unavailable KAM, LENNY Primary Care Unavailable Moodisp[place], Tolu Attending Unavailable Moodispajeanie, Tolu Referring Unavailable [facility] Doctor, Out of Primary Care Unavailable Moodispajeanie, Tolu Attending Unavailable Moodispajeanie, Tolu Referring Unavailable Charly, Parminder Attending Unavailable Moodispaw, Tolu Attending Unavailable Moodisp[place], Tolu Referring Unavailable KAM, LENNY Primary Care Unavailable Moodispaw, Tolu Referring Unavailable Moodispaw, Tolu Attending Unavailable KAM, LENNY Primary Care Unavailable Moodispaw, Tolu Referring Unavailable Moodispaw, Tolu Attending Unavailable KAM, LENNY Primary Care Unavailable Moodispaw, Tolu Attending Unavailable Moodispaw, Tolu Referring Unavailable KAM, LENNY Primary Care Unavailable Vernon Prado Attending Unavailable Vernon Prado Referring Unavailable Raphael Jr., Raymond Primary Care Unavailable Kwabena RAO, Charmaine Consulting Unavailable Parminder Parks Attending Unavailable Charly Parminder Referring Unavailable Raphael Jr., Raymond Primary Care Unavailable Moodispajeanie, Tolu Referring Unavailable Moodispajeanie, Tolu Attending Unavailable KAM, LENNY Primary Care Unavailable Moodispaw, Tolu Referring Unavailable Moodisp[place], Tolu Attending Unavailable KAM, LENNY Primary Care Unavailable Moodispaw, Tolu Referring Unavailable Mood[place], Tolu Attending Unavailable Charly, Belle Fourche Attending Unavailable KAM, LENNY Referring Unavailable KAM, LENNY Primary Care Unavailable Kwabena RAO, Charmaine Consulting Unavailable Charly, Belle Fourche Referring Unavailable Gautam Barnes Attending Unavailable Raphael Jr., Dao Primary Care Unavailable Charly, Belle Fourche Consulting Unavailable Kwabena RAO, Charmaine Consulting Unavailable Charly, Parminder Attending Unavailable Charly, Belle Fourche Referring Unavailable Raphael Jr., Dao Primary Care Unavailable Charly, Parminder Consulting Unavailable Moodispaw, Tolu Referring Unavailable Moodisp[place], Tolu Attending Unavailable Raphael Jr., Dao Primary Care Unavailable FriendVernon Attending Unavailable Friend, Vernon Referring Unavailable Raphael Jr., Dao Primary Care Unavailable Moodispaw, Tolu Referring Unavailable Moodispaw, Tolu Attending Unavailable Raphael Jr., Dao Primary Care Unavailable FriendVernon Attending Unavailable Raphael Jr., Dao Referring Unavailable Raphael Jr., Dao Primary Care Unavailable Holli Arredondo Attending Unavailable [facility] Doctor, Out of Primary Care Unavailable [facility] Doctor, Out of Referring Unavailable Friend, Vernon Attending Unavailable Hcarly, Belle Fourche Attending Unavailable Raphael Jr., Dao Primary Care Unavailable Raphael Jr., Dao Referring Unavailable Charmaine Yuan NP Attending Unavailable Raphael Jr., Dao Referring Unavailable Raphael Jr., Dao Primary Care Unavailable Charly, Belle Fourche Referring Unavailable Charly, Belle Fourche Attending Unavailable KAM, LENNY Primary Care Unavailable CORRIE STONE Attending Unavailable RAPHAEL JR, DAO G Primary Care Unavailable JOSE RAMON MEDINA Attending Unavailable RAPHAEL JR, DAO G Primary Care Unavailable JOSE RAMON MEDINA Attending Unavailable RAPHAEL JR, DAO G Primary Care Unavailable JOSÉ SHEIKH Attending Unavailable RAPHAEL JR, DAO G Primary Care Unavailable HORTENCIA GERARD Referring Unavailable RAPHAEL JR, DAO G Primary Care Unavailable JOSÉ SHEIKH Attending Unavailable RAPHAEL JR, DAO G Primary Care Unavailable HORTENCIA GERARD Attending Unavailable RAPHAEL JR, DAO G Primary Care Unavailable RAPHAEL JR, DAO G Primary Care Unavailable JOSÉ SHEIKH Attending Unavailable RAPHAEL JR, DAO G Primary Care Unavailable RAPHAEL JR, DAO G Primary Care Unavailable KRIS CROUCH Attending Unavailable JOSE RAMON MEDINA Admitting Unavailable JOSE RAMON MEDINA Attending Unavailable DAO RAPHAEL JR Primary Care Unavailable KRIS CROUCH Referring Unavailable DAO RAPHAEL JR Primary Care Unavailable JOSE RAMON MEDINA Attending Unavailable DAO RAPHAEL JR Primary Care Unavailable JOSÉ SHEIKH Attending Unavailable DAO RAPHAEL JR Primary Care Unavailable HORTENCIA GERARD Attending Unavailable DAO RAPHAEL JR Primary Care Unavailable Dao Raphael MD Primary Care Physician Dao Raphael MD Attending Physician [phone] Dao Raphael MD [facility] Physician Allergies Allergy Classification Reported Allergen(s) Allergy Type Date of Onset Reaction(s) Facility Lactose (1 source) Lactose Drug Allergy 1 GI Upset [facility] Wheat gluten extract (1 source) Wheat gluten extract Drug Allergy 1 Other: See Comments [facility] (20 sources) Lactose; Translations: [LACTOSE] Drug Allergy 1 GI Upset [facility] (20 sources) Wheat gluten extract; Translations: [GLUTEN] Drug Allergy 1 Other: See Comments [facility] (12 sources) Milk; Translations: [milk] Allergy to substance 3 Diarrhea [facility] (2 sources) Gluten Drug allergy (disorder) 3 [facility] ([place] Repository (1 source) Lactose Drug Allergy 5 [facility] Repository Medications Current Medications Medication Drug Class(es) Dates Sig (Normalized) Sig (Original) [id number] 200 actuat albuterol 0.09 mg/actuat metered dose inhaler (20 sources) beta2-Adrenergic Agonist Start: 01-26-2024 take 1 puff(s) by inhalation every six hours as needed for wheezing Albuterol Sulfate 90 mcg/actuation HFA aerosol inhaler Active 2 PUFF IH Q6H as needed for shortness of breath or wheezing 8.5 0 January 26, 2024 1:00am Complies with drug therapy Start: 11-25-2023 End: 12-22-2024 take 2 puff(s) by inhalation every four hours as needed for wheezing albuterol HFA (PROVENTIL HFA, VENTOLIN HFA) 90 mcg/actuation inhaler Inhale 2 Puffs as instructed every 4 hours as needed for wheezing/shortness of breath. 8 g 11/25/2023 12/22/2024 Discontinued (Discontinued by Patient) Start: 06-23-2023 End: 08-03-2023 take 1 puff(s) by inhalation four times daily Albuterol Sulfate 90 mcg/actuation HFA aerosol inhaler Discontinued 2 PUFF IH Four Times Daily June 23, 2023 12:00am August 03, 2023 1:25pm Comment on above: Inhale 2 Puffs as in structed every 4 hours as needed for wheezing/shortness of breath. amiodarone hydrochloride 200 mg oral tablet (3 sources) Antiarrhythmic Start: 08-06-20 take 1 tablet by mouth once daily Amiodarone 200 mg tablet Active 200 mg PO Daily August 06, 2025 12:00am Complies with drug therapy Start: 08-02-2025 take 1 tablet by swapna th once daily Amiodarone 200 mg tablet Active 200 mg PO DAILY 27 11August 02, 2025 12:00am apixaban 5 mg oral tablet (20 sources) Factor Xa Inhibitor Start: 08-06-2025 take 1 tablet by mouth twice daily Apixaban (Eliquis) 5 mg tablet Active 5 mg PO Twice A Day August 06, 2025 12:00am Complies with drug therapy Start: 06-19-2025 End: 07-12-2025 take 1 tablet by mouth twice daily ELIQUIS 5 mg tab(s) Take 5 mg by mouth two times a day. 06/20/2025 Active ascorbic acid 113 mg / beta carotene 7160 mg / cuprous oxide 0.4 mg / dl-alpha tocopheryl acetate 100 unt / zinc oxide 17.4 mg oral tablet (20 sources) Vitamin C vit A,C,E-Zinc-C opper (PRESERVISION AREDS) 7,160 unit- 113 mg-100 unit tab Active aspirin 81 mg delayed release oral tablet (20 sources) Platelet Aggregation Inhibitor, Nonsteroidal Anti-inflammatory Drug Start: 03-18-2021 Aspirin (Adult Low Dose Aspirin) 81 mg tablet,delayed release (DR/EC) Active 81 mg PO Every Day June 23, 2023 12:00am Complies with drug therapy Start: 11-13-2008 aspirin(ECOTRI N LOW STRENGTH 81 MG TAB) Take one (1) tablet every other day 0 11/13/2008 Active Comment on above: Take one (1) tablet every other day atorvastatin 40 mg oral tablet (20 sources) HMG-CoA Reductase Inhibitor Start: 08-06-20 take 1 tablet by mouth once daily Atorvastatin 40 mg tablet Active 40 mg PO Every Day 90 90 1 August 06, 2025 2:35pm Hypercholesterolemia Pure hypercholesterolemia, unspecified Complies with drug therapy Start: 03-20-2021 End: 08-06-2025 atorvastatin (LIPITOR) 40 mg tablet 04/14/2021 Active Blood-Glucose Meter (Contour Meter) misc (11 sources) Start: 06-23-2023 Blood-Glucose Meter (Contour Meter) misc Active 0 .Route June 22, 2023 11:00pm As directed Start: 06-23-2023 Blood-Glucose Meter (Contour Meter) misc Active 0 .Route June 23, 2023 12:00am As directed Start: 06-23-2023 Blood-Glucose Meter (Contour Meter) misc Active 0 .ROUTE June 23, 2023 12:00am As directed cetirizine hydrochloride 10 mg oral tablet (20 sources) Histamine-1 Receptor Antagonist Start: 08-09-2023 End: 06-28-2025 take 1 tablet by mouth once daily cetirizine (ZYRTEC) 10 mg tablet Indications: Pruritus Take 1 tablet by mouth once daily. 90 tablet 10/17/2024 Active Comment on above: Take 1 tablet by [facility] once daily. cholecalciferol 0.1 mg oral tablet (20 sources) Vitamin D Start: 06-23-2023 take 1 tablet by mouth once daily Cholecalciferol (Vitamin D3) 100 mcg (4,000 unit) tablet Active 100 ug PO Every Day June 23, 2023 12:00am Complies with drug therapy Start: 03-18-2021 take 2 capsules by [facility] once daily Cholecalciferol (Vitamin D3) 2,000 UNIT capsule Active 4000 U PO DAILY March 18, 2021 12:00am SUPPLEMENT Start: 03-18-2021 take 4000 [IU] by [facility] once daily Cholecalciferol (Vitamin D3) Active 4000 UNIT PO DAILY March 18, 2021 12:00am take 1 capsule by [facility] once daily cholecalciferol, vitamin D3, 4,000 unit cap Take 1 capsule by mouth daily Active Comment on above: Take 1 capsule by [facility] daily ciprofloxacin 500 mg oral tablet (1 source) Quinolone Antimicrobial Start: End: take 1 tablet by mouth twice daily ciprofloxacin HCl (CIPRO) 500 mg tablet Take 1 tablet by mouth twice daily for 7 days. 14 tablet 0 04/12/2023 04/19/2023 Active Comment on above: Take 1 tablet by swapna twice daily for 7 days. clobetasol propionate 0.0005 mg/mg topical ointment (20 sources) Corticosteroid Start: clobetasol (TEMOVATE) 0.05 % ointment Apply to affected area twice daily as needed. Use 5 days per week. Not for face, armpits or groin 30 g 1 02/11/2024 Active Comment on above: Apply to affected ar ea twice daily as needed. Use 5 days per week. Not for face, armpits or groin 24 hr dilTIAZem hydrochloride 120 mg extended release oral capsule (20 sources) Calcium Channel Jeanette Start: End: take 1 capsule by mouth once daily, then take 1 capsule by mouth every twenty-four hours dilTIAZem CD (CARDIZEM CD, CARTIA XT) 120 mg 24 hr capsule Take 120 mg by mouth once daily. 06/20/2025 Active diphenhydrAMINE hydrochloride 25 mg oral capsule (20 sources) Histamine-1 Receptor Antagonist Start: take 1 capsule by mouth at bedtime as needed Diphenhydramine Hcl (Benadryl) 25 mg capsule Active 25 mg PO AT BEDTIME as needed for allergic symptoms June 09, 2023 12:00am Dulaglutide (20 sources) GLP-1 Receptor Agonist Start: Dulaglutide (Trulicity) 3 mg/0.5 mL pen injector Active 3 mg SQ Every Week August 06, 2025 12:00am Complies with drug therapy Start: 06-28-2025 Dulaglutide (T rulicity) 3 mg/0.5 mL pen injector Active 3 mg SC EVERY WEEK 2 June 28, 2025 9:27am Type 2 diabetes mellitus Type 2 diabetes mellitus with hyperglycemia Start: 01-17-2025 End: 06-28-2025 Dulaglutide (Trulicity) 3 mg /0.5 mL pen injector Discontinued 3 mg SC EVERY WEEK 2 January 17, 2025 1:00am June 28, 2025 9:27am Type 2 diabetes mellitus Type 2 diabetes mellitus with hyperglycemia Start: 01-17-2025 Dulaglutide (T rulicity) 3 mg/0.5 mL pen injector Active 3 mg SC EVERY WEEK 2 January 17, 2025 1:00am Type 2 diabetes mellitus Type 2 diabetes mellitus with hyperglycemia Start: 01-17-2025 Dulaglutide (T rulicity) 3 mg/0.5 mL pen injector Active 3 mg SC EVERY WEEK January 17, 2025 1:00am Start: 2024 End: 01-17-2025 inject 1.5 mg by subcutaneous injection every week TRULICITY 1.5 mg/0.5 mL pen injector Inject 1.5 mg subcutaneously one time a week. 10/29/2024 Active Start: 05-14-2022 End: 08-06-2025 Dulaglutide (Trulicity) 0.75 mg/0.5 mL pen injector Discontinued 1.5 mg SQ Every Week August 23, 2024 10:53am August 06, 2025 2:33pm Start: 02-25-2022 End: 08-23-2024 Dulaglutide (Trulicity) 0.75 mg/0.5 mL pen injector Discontinued 0.75 mg SQ Every Week June 23, 2023 12:00am August 23, 2024 10:54am famotidine 20 mg oral tablet (20 sources) Histamine-2 Receptor Antagonist Start: 08-06-2025 take 1 tablet by mouth once daily Famotidine 20 mg tablet Active 20 mg PO Every Day 90 1 August 06, 2025 3:02pm Complies with drug therapy Start: 08-09-2023 End: 08-06-2025 take 1 tablet by mouth once daily Famotidine 20 mg tablet Discontinued 20 mg PO Every Day 90 0 August 06, 2025 2:36pm August 06, 2025 3:03pm Comment on above: Take 1 tablet by swapna once daily. fluorouracil 50 mg/ml topical cream (2 sources) Nucleoside Metabolic Inhibitor Start: 02-01-2025 End: 02-15-2025 Fluorouracil (EFUDEX) 5 % cream Apply to affected area two times a day for 14 days. For the affected area on the right forearm 40 g 02/01/2025 02/15/2025 Active Start: 10-12-2022 End: 10-26-2022 Fluorouracil (EFUDEX) 5 % cr eam Indications: AK (actinic keratosis) Apply to affected area twice daily for 14 days. For the ear and right yazidism 40 g 0 10/12/2022 10/26/2022 Active Comment on above: Apply to affected ar ea twice daily for 14 days. For the ear and right yazidism hydroCHLOROthiazide 25 mg oral tablet (20 sources) Thiazide Diuretic Start: take 1 tablet by mouth once daily Hydrochlorothiazide 25 mg tablet Active 25 mg PO Every Day 90 90 August 06, 2025 3:02pm Hypertension Essential (primary) hypertension Complies with drug therapy Start: 04-27-2024 End: 08-06-2025 take 1 tablet by mouth once daily Hydrochlorothiazide 25 mg tablet Discontinued 25 mg PO Every Day 90 90 October 25, 2024 11:46am April 18, 2025 11:14am Hypertension Essential (primary) hypertension Start: 11-05-2018 End: 04-18-2025 take 1 tablet by mouth every other day hydroCHLOROthiazide (HYDRODIURIL, ESIDRIX) 25 mg tablet Take 25 mg by mouth every other day. 11/05/2018 Active Comment on above: Take 25 mg by mouth every other day. 24 hr isosorbide mononitrate 30 mg extended release oral tablet (20 sources) Nitrate Vasodilator Start: take 1 tablet by mouth once daily, then take 1 tablet by mouth every twenty-four hours Isosorbide Mononitrate 30 mg tablet extended release 24 hr Active 30 mg PO Every Day 90 90 August 06, 2025 2:36pm Hypertension Essential (primary) hypertension Complies with drug therapy Start: 04-14-2021 isosorbide mon onitrate ER (IMDUR) 30 mg 24 hr tablet 04/14/2021 Active Start: 03-20-2021 End: 08-06-2025 take 1 tablet by mouth once daily, then take 1 tablet by mouth every twenty-four hours Isosorbide Mononitrate 30 mg tablet extended release 24 hr Discontinued 30 mg PO Every Day 90 90 July 22, 2023 5:38pm July 23, 2023 4:51pm Hypertension Essential (primary) hypertension 24 hr metFORMIN hydrochloride 500 mg extended release oral tablet (20 sources) Biguanide Start: 08-06-2025 take 1 tablet by mouth twice daily Metformin 500 mg tablet extended release 24 hr Active 500 mg PO Twice A Day 180 90 August 06, 2025 2:36pm Type 2 diabetes mellitus without complication Type 2 diabetes mellitus without complications Complies with drug therapy Start: 08-20-2022 End: 08-06-2025 take 1 tablet by mouth twice daily Metformin 500 mg tablet extended release 24 hr Discontinued 500 mg PO Twice A Day 180 90 April 18, 2025 11:18am August 06, 2025 2:36pm Type 2 diabetes mellitus without complication Type 2 diabetes mellitus without complications Start: 02-16-2022 End: 08-20-2022 take 1 tablet by mouth twice daily Metformin 500 mg tablet Discontinued 500 mg PO TWICE A DAY February 16, 2022 12:00am August 20, 2022 1:05pm Start: 09-26-2021 metFORMIN ER ( GLUCOPHAGE XR) 500 mg 24 hr tablet 09/26/2021 Active 24 hr metoprolol succinate 100 mg extended release oral tablet (20 sources) beta-Adrenergic Jeanette Start: 08-06-2025 take 2 tablets by mouth once daily Metoprolol Succinate 100 mg tablet extended release 24 hr Active 50 mg PO Every Day August 06, 2025 2:34pm Complies with drug therapy Start: 08-02-2025 take 1 tablet by swapna once daily Metoprolol Succinate 50 mg tablet extended release 24 hr Active 50 mg PO DAILY 90 August 02, 2025 2:03pm Start: 12-26-2024 End: 07-20-2025 Metoprolol Succinate 50 mg t ablet extended release 24 hr Discontinued 100 mg PO DAILY December 26, 2024 11:09am July 20, 2025 1:48pm Start: 04-27-2024 End: 12-26-2024 take 1 tablet by mouth once daily Metoprolol Succinate 50 mg tablet extended release 24 hr Discontinued 50 mg PO DAILY 90 April 27, 2024 8:49am December 26, 2024 11:10am Start: 10-19-2023 End: 12-04-2024 take 2 tablets by mouth once daily Metoprolol Succinate 100 mg tablet extended release 24 hr Discontinued 50 mg PO Every Day 45 90 November 07, 2024 4:35pm December 04, 2024 10:46am Start: 10-19-2023 End: 01-26-2024 take 50 mg by mouth once daily Metoprolol Succinate Ac tive 50 MG PO DAILY October 19, 2023 11:40am Start: 05-07-2021 End: 05-26-2021 Metoprolol Succinate 50 mg t ablet extended release 24 hr Discontinued 100 mg PO DAILY May 07, 2021 4:25pm May 26, 2021 11:11am Start: 05-07-2021 End: 05-26-2021 take 100 mg by mouth once daily Metoprolol Succinate Discontinued 100 MG PO DAILY May 07, 2021 4:25pm May 26, 2021 11:11am Start: 04-23-2021 End: 05-07-2021 take 1 tablet by mouth once daily Metoprolol Succinate 50 mg tablet extended release 24 hr Discontinued 50 mg PO DAILY April 23, 2021 12:00am May 07, 2021 4:27pm Start: 03-24-2021 End: 04-23-2021 take 1 tablet by mouth once daily Metoprolol Succinate 25 mg tablet extended release 24 hr Discontinued 25 mg PO DAILY March 24, 2021 12:00am April 23, 2021 5:05pm blood pressure Start: 03-18-2021 End: 03-24-2021 take 1 tablet by mouth once daily Metoprolol Succinate 25 MG Tab.Er.24h Discontinued 25 mg PO DAILY March 18, 2021 12:00am March 24, 2021 9:00am HEART Start: 11-05-2018 End: 08-06-2025 take 100 mg by mouth once daily metoprolol succinate E R (TOPROL XL) 100 mg Take 100 mg by mouth once daily. 11/05/2018 Active Start: 11-05-2018 take 1 tablet by swapna th once daily metoprolol succinate ER (TOPROL XL) 25 mg 24 hr tablet Take 100 mg by mouth once daily. 11/05/2018 Active Comment on above: Take 100 mg by mouth once daily. montelukast 10 mg oral tablet (20 sources) Leukotriene Receptor Antagonist Start: 08-09-20 End: 06-16-20 take 1 tablet by mouth once daily at bedtime montelukast (SINGULAIR) 10 mg tablet Indications: Pruritus Take 1 tablet by mouth daily at bedtime. 90 tablet 1 01/04/2024 Active Comment on above: Take 1 tablet by swapna daily at bedtime. mupirocin 0.02 mg/mg topical ointment (20 sources) RNA Synthetase Inhibitor Antibacterial Start: 08-28-20 mupirocin (BACTROBAN) 2 % ointment Apply to affected area three times daily. 30 g 08/28/2021 Active Comment on above: Apply to affected ar ea three times daily. tamsulosin hydrochloride 0.4 mg oral capsule (20 sources) alpha-Adrenergic Jeanette Start: 08-06-20 take 2 capsules by mouth once daily Tamsulosin 0.4 mg capsule Active 0.8 mg PO Daily 90 90 1 August 06, 2025 3:03pm Complies with drug therapy Start: 12-26-2024 take 1 capsule by mo [facility] once daily Tamsulosin 0.4 mg capsule Active 0.4 mg PO daily December 26, 2024 1:00am Start: 10-10-2024 End: 08-06-2025 take 2 capsules by mouth once daily Tamsulosin 0.4 mg capsule Discontinued 0.8 mg PO Daily August 06, 2025 12:00am August 06, 2025 3:03pm Start: 02-23-2024 End: 10-10-2024 take 1 capsule by mouth once daily tamsulosin (FLOMAX) 0.4 mg Take 1 capsule by mouth once daily. 90 capsule 3 02/23/2024 10/10/2024 Discontinued triamcinolone acetonide 0.001 mg/mg topical ointment (20 sources) Corticosteroid Start: 07-01-2023 triamcinolone acetonide (KENALOG) 0.1 % ointment Apply to affected area twice daily as needed. Use for up to a week on stinging/burning areas of the face. DO NOT USE FOR MORE THAN ONE WEEK 80 g 07/01/2023 Active Start: 06-29-2023 triamcinolone acetonide (KENALOG) 0.1 % ointment Indications: Rash and nonspecific skin eruption Apply to affected area twice daily as needed. Apply to affected area twice daily as needed. 453.6 g 1 06/29/2023 Active Start: 05-10-2023 End: 08-09-2024 triamcinolone acetonide (ZEUS ALOG) 0.1 % cream Indications: Rash and nonspecific skin eruption Apply to affected areas on chest twice daily Wednesday-Wednesday, take weekends off for two weeks. May repeat as needed. Not for use on face, armpits, or groin. 80 g 2 08/09/2023 08/09/2024 Start: 09-09-2022 End: 06-29-2023 triamcinolone acetonide (ZEUS ALOG) 0.1 % cream Apply to affected area twice daily as needed for irritation after PDT. 15 g 0 09/09/2022 06/29/2023 Discontinued Comment on above: Apply to affected ar ea twice daily as needed for irritation after PDT. Apply to affected ar eas on chest twice daily Wednesday-Wednesday, take weekends off for two weeks. May repeat as needed. Not for use on face, armpits, or groin. Apply to affected ar ea twice daily as needed. Apply to affected area twice daily as needed. Apply to affected ar ea twice daily as needed. Use for up to a week on stinging/burning areas of the face. DO NOT USE FOR MORE THAN ONE WEEK Vit C,S-Kk-Gvmfs-Lutei n-Zeaxan (20 sources) Start: 03-18-2021 take 1 capsule by mouth twice daily Vit C,Z-Ra-Gmjsn-Lute in-Zeaxan Active 1 CAP PO TWICE A DAY March 18, 2021 5:43pm Start: 03-18-2021 take 1 capsule by mo ut twice daily Vit C,E-Ci-Djwej-Lutein-Zeaxan Active 1 CAP PO TWICE A DAY March 17, 2021 11:00pm Start: 03-18-2021 take 1 capsule by mo uth twice daily Vit C,Q-Ss-Lyqvg-Lutein-Zeaxan Active 1 CAP PO TWICE A DAY March 18, 2021 12:00am Vit C,V-Da-Rdnaz-Lutein-Zeax an 1 EACH capsule (13 sources) Start: 04-20-2021 take 1 capsule by mouth twice daily Vit C,X-Kc-Wyvqe-Lutein-Zeaxan 1 EACH capsule Active 1 NMA PO TWICE A DAY March 18, 2021 12:00am [facility] Start: 03-18-2021 take 1 capsule by mo uth twice daily Vit C,R-Ep-Jzikh-Lutein-Zeaxan 1 EACH capsule Active 1 NMA PO TWICE A DAY March 18, 2021 12:00am vit C/E/zinc ox/radha/lut/taj x (ICAPS AREDS2 ORAL) (20 sources) vit C/E/zinc ox/ radha/lut/zeax (ICAPS AREDS2 ORAL) Take by mouth. Active vit C/E/zinc ox/ radha/lut/zeax (ICAPS AREDS2 ORAL) Take by mouth. 0 Active Comment on above: Take by mouth. vitamin e 180 mg oral capsule (20 sources) Start: 02-16-2022 Vitamin E Mixe d 400 unit capsule Active 400 U PO DAILY February 16, 2022 12:00am take 1 capsule by mouth once lakeisha ly Vitamin E, dl, acetate, (VITAMIN E) 400 unit capsule Take 400 Units by mouth once daily. Active Comment on above: Take 400 Units by [facility] once daily. Completed/Discontinued Medications Medication Drug Class(es) Dates Sig (Normalized) Sig (Original) aminolevulinate 200 mg/ml topical solution (20 sources) Start: 04-12-2025 End: 04-12-2025 aminolevulinic acid (LEVULAN) 20% topical solution Start: 04-12-2025 End: 04-12-2025 2 each, TOPICAL, ONCE, 1 dos e, On [facility] 04/12/25 at 1030, AMB MED ORDERS Start: 08-09-2023 Aminolevulinic Acid HCl 20 % soln 1 Each amLODIPine 10 mg oral tablet (20 sources) Dihydropyridine Calcium Channel Jeanette Start: 04-27-2024 End: 12-26-2024 take 1 tablet by mouth once daily Amlodipine 5 mg tablet Discontinued 5 mg PO DAILY 90 3 April 27, 2024 8:55am December 26, 2024 11:08am BP Start: 04-27-2024 End: 04-27-2024 take 1 tablet by mouth twice daily Amlodipine 5 mg tablet Discontinued 5 mg PO TWICE A DAY April 27, 2024 8:30am April 27, 2024 8:56am BP Start: 10-19-2023 End: 04-27-2024 take 2 tablets by mouth once daily Amlodipine 5 mg tablet Discontinued 10 mg PO DAILY October 19, 2023 11:40am April 27, 2024 8:32am BP Start: 10-19-2023 take 10 mg by mouth once daily Amlodipine Active 10 MG PO DAILY October 19, 2023 11:40am Start: 09-24-2023 End: 08-06-2025 take 1 tablet by mouth once daily Amlodipine 10 mg tablet Discontinued 10 mg PO Every Day 90 90 April 14, 2024 11:01am August 23, 2024 10:55am Hypertension Essential (primary) hypertension Start: 03-18-2021 End: 10-19-2023 take 1 tablet by mouth once daily Amlodipine 5 mg tablet Discontinued 5 mg PO Every Day 90 90 August 03, 2023 1:26pm September 24, 2023 11:30am Comment on above: Take 5 mg by mouth. Take 5 mg by mouth t wo times a day. cephalexin 500 mg oral capsule (2 sources) Cephalosporin Antibacterial Start: 06-29-20 End: 07-06-20 take 1 capsule by mouth twice daily cephALEXin (KEFLEX) 500 mg capsule Indications: Rash and nonspecific skin eruption Take 1 capsule by mouth twice daily for 7 days. 14 capsule 0 06/29/2023 07/06/2023 Comment on above: Take 1 capsule by [facility] twice daily for 7 days. clopidogrel 75 mg oral tablet (20 sources) [id number] Platelet Inhibitor Start: 05-13-20 End: 12-22-19 take 1 tablet by mouth once daily Clopidogrel (Plavix) 75 mg tablet Discontinued 75 mg PO Every Day June 25, 2023 12:00am October 25, 2023 12:39pm Comment on above: Take 75 mg by mouth once daily. doxycycline hyclate 100 mg oral capsule (20 sources) Tetracycline-class Drug Start: 06-09-20 End: 07-23-20 take 1 capsule by mouth once daily Doxycycline Hyclate 100 mg capsule Discontinued 100 mg PO DAILY June 09, 2023 12:00am July 23, 2023 9:07am Start: 06-05-2023 End: 06-12-2023 take 1 tablet by mouth twice daily doxycycline (VIBRA-TABS) 100 mg tablet Take 1 tablet by mouth twice daily for 7 days. 14 tablet 0 06/05/2023 06/12/2023 Active Comment on above: Take 1 tablet by swapna th twice daily for 7 days. folic acid 1 mg oral tablet (20 sources) Start: 03-23-2023 End: 12-22-2024 take 1 tablet by mouth once daily Folic Acid 1 mg tablet Discontinued 1 mg PO Every Day 90 90 1 August 03, 2023 12:00am September 24, 2023 11:25am Diverticulosis of colon Celiac disease Celiac disease Comment on above: Take 1 mg by mouth o nce daily. predniSONE 10 mg oral tablet (20 sources) Start: 06-09-2023 End: 10-19-2023 take 1 tablet by mouth once daily Prednisone 10 mg tablet Discontinued 10 mg PO DAILY June 09, 2023 12:00am October 19, 2023 11:07am Start: 06-05-2023 End: 06-14-2023 predniSONE (DELTASONE) 10 mg tablet Take 4 tabs daily for 3 days, then 2 tabs daily for 3 days, then 1 tab daily for 3 days with food. 21 tablet 0 06/05/2023 06/14/2023 Active Comment on above: Take 4 tabs daily fo r 3 days, then 2 tabs daily for 3 days, then 1 tab daily for 3 days with food. sulfaSALAzine 500 mg delayed release oral tablet (20 sources) Aminosalicylate Start: 03-23-20 End: 06-09-20 23 take 1 g by mouth twice daily Sulfasalazine 500 mg tablet,delayed release (DR/EC) Discontinued 1 g PO TWICE A DAY 120 30 3 March 23, 2023 12:00am June 09, 2023 9:43am Start: 03-23-2023 End: 06-09-2023 take 1 g by mouth twice daily Sulfasalazine Discontinu ed 1 GM PO TWICE A DAY 120 30 March 23, 2023 12:00am June 09, 2023 9:43am End: 12-22-2024 take 1 tablet by mouth four times daily sulfaSALAzine (AZULFIDINE) 500 mg tablet Take 500 mg by mouth four times daily. 12/22/2024 Discontinued (Discontinued by Patient) Comment on above: Take 500 mg by mouth four times daily. ticagrelor 90 mg oral tablet (20 sources) Start: 1 End: 5 take 1 tablet by mouth twice daily Ticagrelor (Brilinta) 90 mg tablet Discontinued 90 mg PO Twice A Day June 23, 2023 12:00am June 25, 2023 12:07pm valsartan 320 mg oral tablet (20 sources) Angiotensin 2 Receptor Jeanette Start: 3 End: 5 take 1 tablet by mouth once daily Valsartan 320 mg tablet Discontinued 320 mg PO Every Day 90 90 1 August 21, 2024 1:21pm December 22, 2024 11:54am Hypertension Essential (primary) hypertension Start: 08-20-2022 End: 10-19-2023 Valsartan 320 mg tablet Disc ontinued 160 mg PO DAILY August 20, 2022 1:05pm October 19, 2023 11:09am Start: 08-20-2022 End: 10-19-2023 take 160 mg by mouth once daily Valsartan Discontinued 160 MG PO DAILY August 20, 2022 1:05pm October 19, 2023 11:09am Start: 02-24-2022 End: 08-20-2022 Valsartan 320 mg tablet Disc ontinued 320 mg PO February 24, 2022 12:00am August 20, 2022 1:06pm Start: 03-24-2021 End: 08-20-2022 take 1 tablet by mouth once daily Valsartan (Diovan) 160 mg tablet Discontinued 160 mg PO DAILY March 24, 2021 12:00am August 20, 2022 1:05pm blood pressure Start: 03-20-2021 End: 03-24-2021 Valsartan (Diovan) 320 MG ta blet Discontinued 160 mg PO DAILY 1 March 20, 2021 10:45am March 24, 2021 9:00am BP Start: 03-18-2021 End: 03-20-2021 take 1 tablet by mouth once daily Valsartan (Diovan) 320 MG tablet Discontinued 320 mg PO DAILY March 18, 2021 12:00am March 20, 2021 10:45am BP Comment on above: Take 160 mg by mouth once daily. Problems Active Problems Problem Classification Problem Date Documented Da te Episodic/Chronic Allergic reactions (17 sources) Eruption due to drug; Translations: [Generalized skin eruption due to drugs and medicaments taken internally] 06-25-2023 Episodic Cardiac dysrhythmias (20 sources) Atrial fibrillation; Translations: [Unspecified atrial fibrillation] Onset: 08-02-2025 06-19-2025 Chronic Cardiac dysrhythmias (1 source) Palpitations; Translations: [Palpitations] Onset: 06-25-2025 Episodic Coronary atherosclerosis and other heart disease (20 sources) Preinfarction syndrome; Translations: [Unstable angina] Onset: 2025 Chronic Coronary atherosclerosis and other heart disease (20 sources) Stented coronary artery; Translations: [Presence of coronary angioplasty implant and graft] Onset: 03-29-2021 Episodic Comment on above: Successful PCI of mL AD/D1 bifurcation with KEVIN to LAD (orsiro 3.5 x 18m) and PTCA to D1 04/03/21Successful KEVIN to pOM2 (Orsiro 3.0 x 22mm) per cardiac cath 03/19/21 Deficiency and other anemia (1 source) Anemia, unspecified; Translations: [Anemia, unspecified] Onset: 07-12-2025 Episodic Deficiency and other anemia (1 source) Anemia; Translations: [Anemia, unspecified] 08-06-2025 Episodic Diabetes mellitus with complications (1 source) Type 2 diabetes mellitus with hyperglycemia; Translations: [Type 2 diabetes mellitus with hyperglycemia] Onset: 01-17-2025 Chronic Diabetes mellitus without complication (20 sources) Type 2 diabetes mellitus; Translations: [Type 2 diabetes mellitus without complications] Onset: 01-17-2025 Chronic Diabetes mellitus without complication (20 sources) Prediabetes; Translations: [Prediabetes] 03-18-2021 Episodic Disorders of lipid metabolism (20 sources) Hyperlipidemia; Translations: [Hyperlipidemia, unspecified] 12-14-2022 Chronic Diverticulosis and diverticulitis (20 sources) Diverticular disease; Translations: [Diverticulosis of intestine, part unspecified, without perforation or abscess without bleeding] 03-18-2021 Chronic Essential hypertension (20 sources) Hypertensive disorder; Translations: [Essential (primary) hypertension] Chronic Fever of unknown origin (3 sources) Fever; Translations: [Fever, unspecified] Onset: 06-14-2025 06-14-2025 Episodic Hyperplasia of prostate (20 sources) Benign prostatic hypertrophy with outflow obstruction; Translations: [Benign prostatic hyperplasia with lower urinary tract symptoms] Onset: 01-27-2019 10-10-2021 Chronic Malaise and fatigue (20 sources) Fatigue; Translations: [Other fatigue] Onset: 06-26-2025 10-19-2023 Episodic Melanomas of skin (8 sources) Melanoma in situ of other sites; Translations: [Malignant melanoma of other specified sites of skin] Onset: 11-27-2024 11-16-2024 Chronic Comment on above: left back shoulder r emoved 11/27/24 Melanomas of skin (4 sources) History of malignant melanoma of the skin; Translations: [Personal history of malignant melanoma of skin] Onset: 05-10-2025 02-01-2025 Episodic Neoplasms of unspecified nature or uncertain behavior (5 sources) Neoplastic disease; Translations: [Neoplasm of unspecified behavior of bone, soft tissue, and skin] Onset: 05-10-2025 Episodic Nonspecific chest pain (20 sources) Chest pain; Translations: [Chest pain, unspecified] Onset: 06-14-2025 03-18-2021 Episodic Other and unspecified benign neoplasm (5 sources) Multiple benign melanocytic nevi ; Translations: [Melanocytic nevi, unspecified] Episodic Other and unspecified benign neoplasm (6 sources) Senile angioma; Translations: [Hemangioma of skin and subcutaneous tissue] Episodic Other and unspecified benign neoplasm (1 source) Melanocytic nevi, unspecified; Translations: [Multiple benign nevi] Onset: 05-10-2025 Episodic Other and unspecified benign neoplasm (1 source) Hemangioma of skin and subcutaneous tissue; Translations: [Deleon angioma] Onset: 05-10-2025 Episodic Other circulatory disease (20 sources) H/O: hypertension; Translations: [Personal history of other diseases of the circulatory system] 03-18-2021 Episodic Other circulatory disease (5 sources) Personal history of other diseases of the circulatory system; Translations: [Personal history of other diseases of circulatory system] Episodic Other connective tissue disease (20 sources) Thigh pain; Translations: [Pain in left thigh] 03-21-2023 Episodic Other connective tissue disease (20 sources) Spasm; Translations: [Other muscle spasm] 03-21-2023 Episodic Other diseases of bladder and urethra (20 sources) Overactive bladder; Translations: [Overactive bladder] Onset: 04-09-2023 Chronic Other gastrointestinal disorders (20 sources) Celiac disease; Translations: [Celiac disease] 03-18-2021 Chronic Other gastrointestinal disorders (3 sources) Celiac disease; Translations: [Celiac disease] 01-26-2024 Chronic Other gastrointestinal disorders (17 sources) Diarrhea, unspecified; Translations: [Diarrhea] Episodic Other inflammatory condition of skin (2 sources) Pruritus, unspecified; Translations: [Unspecified pruritic disorder] 07-26-2024 Episodic Other lower respiratory disease (1 source) Cough; Translations: [Acute cough] 11-25-2023 Episodic Other lower respiratory disease (2 sources) Dyspnea; Translations: [Dyspnea, unspecified] 06-14-2025 Episodic Other lower respiratory disease (1 source) Dyspnea, unspecified; Translations: [Dyspnea, unspecified type] Onset: 06-14-2025 Episodic Other male genital disorders (20 sources) 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; Translations: [Combined arterial insufficiency and corporo-venous occlusive erectile dysfunction] Onset: 10-10-2021 10-10-2021 Chronic Other male genital disorders (1 source) Male erectile dysfunction, unspecified; Translations: [Impotence of organic origin] 10-10-2024 Chronic Other male genital disorders (2 sources) Integumentary system finding; Translations: [Disorder of male genital organs, unspecified] 07-17-2024 Episodic Other non-epithelial cancer of skin (10 sources) History of malignant neoplasm of skin excluding melanoma; Translations: [Personal history of other malignant neoplasm of skin] Onset: 05-10-2025 Episodic Other nutritional; endocrine; and metabolic disorders (20 sources) Obesity; Translations: [Obesity, unspecified] 02-25-2022 Chronic Other nutritional; endocrine; and metabolic disorders (20 sources) Obesity, unspecified; Translations: [Obesity, unspecified] Chronic Other nutritional; endocrine; and metabolic disorders (20 sources) Obese class I; Translations: [Obesity, unspecified] Onset: 09-28-2019 09-28-2019 Chronic Other nutritional; endocrine; and metabolic disorders (11 sources) Body mass index 30+ - obesity; Translations: [Body mass index (BMI) 30.0-30.9, adult] 06-25-2023 Chronic Other nutritional; endocrine; and metabolic disorders (2 sources) Body mass index (BMI) 30.0-30.9, adult; Translations: [Body Mass Index 30.0-30.9, adult] 06-25-2023 Chronic Other nutritional; endocrine; and metabolic disorders (2 sources) Body mass index (BMI) 34.0-34.9, adult; Translations: [Body Mass Index 34.0-34.9, adult] 08-23-2024 Chronic Other screening for suspected conditions (not mental disorders or infectious disease) (2 sources) Encounter for screening for malignant neoplasm of skin; Translations: [Encounter for screening for other disorder] Onset: 03-06-2025 Episodic Other skin disorders (14 sources) Actinic keratosis; Translations: [Actinic keratosis] Episodic Other skin disorders (6 sources) Seborrheic keratosis; Translations: [Other seborrheic keratosis] Episodic Other skin disorders (5 sources) Lentiginosis; Translations: [Other melanin hyperpigmentation] Episodic Other skin disorders (1 source) History of actinic keratosis; Translations: [Personal history of diseases of the skin and subcutaneous tissue] Episodic Other skin disorders (2 sources) Inflamed seborrheic keratosis; Translations: [Inflamed seborrheic keratosis] Episodic Other skin disorders (2 sources) Eruption; Translations: [Rash and other nonspecific skin eruption] 06-05-2023 Episodic Other skin disorders (15 sources) Patient encounter status; Translations: [Disorder of the skin and subcutaneous tissue, unspecified] 06-23-2023 Episodic Comment on above: left thigh Other skin disorders (2 sources) Disorder of the skin and subcutaneous tissue, unspecified; 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] 06-25-2023 Episodic Other skin disorders (1 source) Other seborrheic keratosis; Translations: [Seborrheic keratosis] Onset: 05-10-2025 Episodic Other skin disorders (1 source) Other melanin hyperpigmentation; Translations: [Lentigines] Onset: 05-10-2025 Episodic Other upper respiratory infections (2 sources) Acute upper respiratory infection; Translations: [Acute upper respiratory infection, unspecified] Onset: 06-14-2025 06-14-2025 Episodic Regional enteritis and ulcerative colitis (20 sources) Crohn's disease; Translations: [Crohn's disease, unspecified, without complications] Onset: 06-26-2025 12-08-2022 Chronic Unclassified (1 source) CHANGE OF BOWEL / CHANGE OF BOWEL() Onset: 03-24-2018 Unclassified (20 sources) NO SHOW Onset: 06-04-2024 06-04-2024 Unclassified (1 source) Established Patient Onset: 07-05-2025 Past or Other Problems Problem Classification Problem Date Documented Da te Episodic/Chronic Abdominal pain (20 sources) Abdominal pain; Translations: [Unspecified abdominal pain] Onset: 11-13-2008 11-13-2008 Episodic Genitourinary symptoms and ill-defined conditions (20 sources) Increased frequency of urination; Translations: [Frequency of micturition] Onset: 05-26-2019 05-26-2019 Episodic Other diseases of kidney and ureters (1 source) Other obstructive and reflux uropathy; Translations: [BPH with urinary obstruction] Onset: 02-23-2025 Episodic Other diseases of veins and lymphatics (4 sources) Varicocele; Translations: [Scrotal varices] Resolved: 11-29-2023 08-23-2024 Episodic Other gastrointestinal disorders (20 sources) Diarrhea; Translations: [Diarrhea, unspecified] Onset: 11-13-2008 11-13-2008 Episodic Other nutritional; endocrine; and metabolic disorders (20 sources) Weight loss; Translations: [Abnormal weight loss] Onset: 11-13-2008 11-13-2008 Episodic Other nutritional; endocrine; and metabolic disorders (13 sources) Weight decreased; Translations: [Abnormal weight loss] Onset: 11-13-2008 11-13-2008 Episodic Other skin disorders (1 source) Actinic keratosis; Translations: [AK (actinic keratosis)] Onset: 04-12-2025 Episodic Unclassified (1 source) CHANGE OF BOWEL; Translations: [CHANGE OF BOWEL] Onset: 03-24-2018 Urinary tract infections (20 sources) Acute cystitis; Translations: [Acute cystitis with hematuria] Onset: 04-09-2023 Episodic Results Test Name Value Interpretation Reference Range Facility No Panel InformationOrdered By: Dao Raphael on 08-06-2025 [facility] [address] [place] [address] Internal Medicine Signed Patient: RAYA MCNAIR MR#: [id number] : 1940 Acct:[id number] Age/Sex: 85 / M Date of Service: 08/06/25 Loc: [email or web address] Visit Location: Visit Provider: Dao Raphael Jr, MD cc: Intake Vital Signs 08/06/25 14:30 Height 5 ft 9 in Weight 233 lb BMI 34.4 BP 129/85 BP Location Rt brachial BP Position Sitting BP Cuff Size Adult BP Source Automatic Cuff Respiration 14 Pulse 106 H Pulse Source Pulse Oximeter Temp 97.9 F Temp Source Temporal Artery Scan Pulse Oximetry (%) 100 Oxygen Delivery Method Room Air Intake/Allergies/Med Rec Visit Reasons: Follow Up, Hyperlipidemia Accompanied by: Self Same As Patient Allergies gluten Allergy (Intermediate, Verified 08/06/25 14:31) Diarrhea milk Allergy (Intermediate, Verified 08/06/25 14:31) Diarrhea Home Medications - Last Reconciled 08/06/25 by Dao Raphael Jr, MD albuterol sulfate 90 mcg/actuation 2 puffs IH Q6H PRN amiodarone 200 mg PO DAILY apixaban (Eliquis) 5 mg PO BID aspirin (Adult Low Dose Aspirin) 81 mg PO QDAY atorvastatin 40 mg PO QDAY 90 days blood sugar diagnostic (Contour Test Strips) As directed; test twice a day blood-glucose meter (Contour Meter) As directed cholecalciferol (vitamin D3) 100 mcg PO QDAY dulaglutide (Trulicity) 3 mg SQ QWEEK famotidine 20 mg PO QDAY hydrochlorothiazide 25 mg PO QDAY 90 days isosorbide mononitrate ER 30 mg PO QDAY 90 days metformin ER 500 mg PO BID 90 days metoprolol succinate ER 50 mg PO QDAY montelukast 10 mg PO QDAY tamsulosin 0.8 mg PO DAILY valsartan 320 mg PO QDAY 90 days Pain Scale: 0 PHQ-2/9 Over the last 2 weeks, how often have you been bothered by any of the following problems Little interest or pleasure in doing things: not at all Feeling down, depressed, or hopeless: not at all PHQ-2: Total score: 0 Screen results: negative screen PHQ-9: Total score: 0 0-4 None-Minimal, 5-9 Mild, 10-14 Moderate, 15-19 Moderately Severe, 20-27 Severe Source: Developed by Drs. Hortencia Kovacs, Dayami Maldonado, Sanjiv Negron and colleagues, with an educational jena from [employer]. HEDIS Measures HEDIS Measures G9717 Patient Diagnosed w/ Bipolar Disorder: No 3008f BMI Recorded: Yes 1159F Documentation of Current Med Usage: Yes 1160F Medication Review by Pharmacy or Rxing Provider: Yes 1101F Doc of Scrn Fall Risk in pt w/ no falls or one w/o injury: Yes 1170F Functional Evaluation: Yes 0521F Plan of Care to Address Pain Documented: Yes 1126F Pain Severity Quantified; No Pain Present: Yes Blood Pressure Result: 129/85 Systolic Blood Pressure: Systolic <130 Diastolic Blood Pressure: Diastolic 80-89 [facility] Medical History Melanoma Varicocele present on ultrasound of scrotum Encounter for removal of skin lesion Surgical History History of tonsillectomy and adenoidectomy (~194) H/O left wrist surgery (~2002) Hx of cholecystectomy (~2004) History of cataract surgery History of prostate surgery (~06/27/19) H/O heart artery stent (~03/19/21) Family History Father Coronary artery disease Social History Smoking Status: Never smoker Alcohol intake: never Substance use type: does not use Marital status: Number of children: 3 Highest education level completed: Associate degree: occupational, technical, vocational program Current occupational status: retired Seatbelt use: always Current diet type/program: regular Caffeine: Yes HPI Hyperlipidemia 3 mo FU ... labs (04/18) ... 06/19: [facility]/chest pain dx: post-nasal drip ... 06/28: [facility]/chest pain ... 07/23: cardioversion ... no questions/concerns Type of Visit: follow-up elevated lipid profile Reports dyspnea; Denies headache(s), pedal edema, excessive sweating, flushing, chest pain or myalgias Diet type: low sodium and low fat Medication compliance: is good Review of Systems Status of ROS 10 or more systems reviewed and unremark able except as noted in history and below Constitutional no fatigue Eyes no change in vision Ears, nose, mouth, and throat no throat pain, no difficulty swallowing, no mouth pain (no mouth ulcers, no oral abnormalities), no dry mouth, no ear pain, no change in hearing and no nose bleeds Cardiovascular report of shortness of breath and report of shortness of breath with exertion; no chest pain, no palpitations, no edema, no swelling of feet/ankles and no lightheadedness Respiratory report of dyspnea; no cough and no wheezing Gastrointestinal no abdominal pain, no nausea, no vomiting, no diarrhea, no constipation and no difficulty swallowing Genitourinary report of urinary frequency, report of urinary urgency and reportof urinary dribbling; no blood in urine Musculoskeletal report of back pain; no extremity swelling, no joint pain an (more content not included)... [facility] Work Phone: CNOVon 08-02-2025 CNOV Office Visit (DERMST ) -------- RAYA MCNAIR ([id number]) 1940 M Date Time Provider Department 08/02/25 4:30 PM JOSÉ SHEIKHST During your visit today, we recorded the [...] helpful. Additional information can be obtained at: [email or web address]/skin- [email or web address]-[email or web address] -detection 2. In many cases, skin cancer can [...] your health care provider. José Sheikh APRN.SHARON 08/02/2025 5:00 PM Signed Department of Dermatology José Sheikh APRN.CENTRIFUGAL CASTING MACHINE TENDER Last visit in Dermatology: 05/10/2025 Objective/Assessment/Kimmie n Skin Exam 1. AK (ACTINIC KERATOSIS) (3) [...] Skin Check Subjective and Objective HPI: Raya Mcnair is a 85 year old male who [...] for this note was completed by Alton Sharif (more content not included)... Normal [facility] 12 Lead EKGon 07-23-2025 12 Lead EKG [facility] [address] [place] [address] 12 Lead EKG 07/23/25 1045 MR#: [id number] Acct: [id number] Name: RAYA MCNAIR Rep #: [id number] : 1940 85 From: Parminder Parks MD Attending Dr: Dr. Parminder Parks MD Status: DEP [facility] Ordering Dr: Parminder Parks MD Date: 07/23/25 Location: [facility] Sex: M N Admitted: Test Reason : afib Blood Pressure : */* mmHG Vent. Rate : 108 BPM Atrial Rate : * BPM P-R Int : * ms QRS Dur : 68 ms QT Int : 302 ms P-R-T Axes : * 15 141 degrees QTcB Int : 404 ms Atrial fibrillation with rapid ventricular response Low voltage QRS Septal infarct , age undetermined Abnormal ECG When compared with ECG of 28-Jun-2025 13:47, Septal infarct is now Present Confirmed by CHARLY MATHEWS, PARMINDER ([id number]), newspaper or periodical editor YANELIS MELTON ([id number]) on 07/24/2025 6:10:40 AM Referred By: Parminder Parks Confirmed By: PARMINDER PARKS MD 07/24/25 0610 Date Parminder Parks MD CC: Dr. Parminder Parks MD; Dao Raphael Jr., MD Signed Normal [facility] Procedure Reporton Procedure Report [facility] Medical Records Department [address] [place] [address] Procedure Report 07/23/25 1249 MR#: [id number] Acct: [id number] Name: RAYA MCNAIR Rep #: [id number] : 1940 85 From: Gautam Barnes DO PCP: Dao Raphael Jr., MD Status:[facility] Location: [facility] Procedures Pulmonary Pulmonary Procedures /Diagnostic Testin Con Sedation Non-invasive Procedural Procedure Information Date of Procedure: 07/23/25 Description of procedure: CONSCIOUS SEDATION REPORT DATE OF SERVICE: July 23, 2025 BRIEF HISTORY OF PRESENT ILLNESS: The patient is an 85-year-old male who presented to [facility] to undergo an elective outpatient cardioversion due to underlying atrial fibrillation. The patient has never previously undergone a cardioversion. He denied any history of any anesthetic complications. While he does have a known history of obstructive sleep apnea, he does not currently utilize any form of nocturnal PAP therapy. The patient is systemically anticoagulated on Eliquis. His last surface echocardiogram demonstrated an ejection fraction of 65%. PHYSICAL EXAMINATION: VITAL SIGNS: Reviewed and were acceptable. GENERAL: The patient is a male, in no apparent distress, speaking in full sentences. HEENT: Normocephalic, atraumatic. Mucous membranes are moist and pink. Good mouth opening noted. Trachea is midline. Good neck mobility. CHEST: S1, S2 irregularly irregular. No murmurs, rubs or gallops were noted. LUNGS: Clear to auscultation bilaterally without appreciable wheezes, rales or rhonchi. ABDOMEN: Soft, nontender, nondistended. Positive bowel sounds. EXTREMITIES: There is no clubbing, cyanosis or edema. ASA Class: II DESCRIPTION OF PROCEDURE: After confirmation of informed consent, the patient's anesthesia plan was reviewed in detail. Propofol was chosen. Risks and benefits were reviewed and the patient agreed to proceed. At 1226, the patient was given 40 mg of propofol. The patient achieved an appropriate level of sedation and was given a 200 joule synchronized cardioversion by Dr. Parks at the bedside. This was successful in achieving normal sinus rhythm. The patient was monitored until 1239, at which time he reached his baseline mental status and function. The patient tolerated the procedure well. COMPLICATIONS: None ESTIMATED BLOOD LOSS: None RECOMMENDATIONS: Okay to recover in usual fashion. 07/23/25 1250 Cosigner Signature (if applicable): CC: Dr. Parminder Parks MD; Dr. Gautam Barnes DO; Dao Raphael Jr., MD Signed Normal [facility] Procedure Report [facility] Medical Records Department [address] [place] [address] Procedure Report 07/23/25 1237 MR#: [id number] Acct: [id number] Name: RAYA MCNAIR Rep #: [id number] : 1940 85 From: Parminder Parks MD PCP: Dao Raphael Jr., MD Status:[facility] Location: [facility] Non-invasive Procedural Procedure Information Date of Procedure: 07/23/25 Pre-Procedure Diagnosis: Atrial fibrillation Post-Procedure Diagnosis: Atrial fibrillation Procedure Performed:: DC cardioversion Procedure Time Out: 12:30 Procedure Start Time: 12:35 Procedure Stop Time: 12:37 Special Medications: Intravenous propofol 40 mg Description of procedure: The patient was brought to cardiac catheterization lab in the postabsorptive nonsedated state. Informed consent was obtained. Anterior posterior pads were applied. The patient was seen by Dr. Barnes of the critical care division. 40 mg intravenous propofol was administered and 200 J of synchronized biphasic DC cardioversion energy were applied with prompt reversal to sinus rhythm. Patient tolerated the procedure well. Procedure findings: Successful DC cardioversion from atrial fibrillation to sinus rhythm. Continue as per office protocol. 07/23/25 1239 Cosigner Signature (if applicable): CC: Dr. Parminder Parks MD; Dao Raphael Jr., MD Signed Normal [facility] Transferrinon 07-06-2025 Transferrin [Mass/Vol] 198 mg/dL Normal 149-313 [facility] Comment on above: Result Comment: Perf ormed at: - [facility] [address] [id number] [employer] Condition[employer] Apprentice: Kulwinder Schaefer PhD, Phone: [phone] Performed By: #### L 139.9506, O249.5588, L155.2684 #### [facility] Laboratory [facility] [address] [facility] [place], [address] Absolute lymphocyte countOrd ered By: Vernon Prado on 07-05-2025 Lymphocytes Auto (Unsp spec) [#/Vol] 1.37 10*3/uL 0.83-4.51 [facility] Absolute neutrophil countOrd ered By: Vernonquinton Prado on 07-05-2025 Neutrophils (Bld) [#/Vol] 9.0 10*3/uL High 2.0-7.7 [facility] Automated lymphocyte count a s percentage of total leukocytesOrdered By: Vernon Prado on 07-05-2025 Lymphocytes/100 WBC Auto (Unsp spec) 11.8 % Low 19-41 [facility] Basophil percentageOrdered B y: Vernon Prado on 07-05-2025 Basophils/100 WBC (Bld) 0.5 % 0-1 [facility] CBC W/Diff, Automatedon 08-0 7-2024 Absolute Lymph 1.37 X10 3/uL Normal 0.83-4.51 [facility] Comment on above: Performed By: #### L 501.4021, L500.2500, L100.0100 #### [facility] Laboratory [address] [place], [address] Absolute Neut 9.0 X10 3/uL High 2.0-7.7 [facility] Comment on above: Performed By: #### L 501.4021, L500.2500, L100.0100 #### [facility] [address] [place], [address] Basophils/100 WBC (Bld) 0.5 % Normal 0-1 [facility] Comment on above: Performed By: #### L 501.4021, L500.2500, L100.0100 #### [facility] [address] [place], [address] Eosinophils/100 WBC (Bld) 0.9 % Normal 0-5 [facility] Comment on above: Performed By: #### L 501.4021, L500.2500, L100.0100 #### [facility] [address] [place], [address] Erythrocyte distribution width (RBC) [Ratio] 14.6 % Normal 11.6-14.6 [facility] Comment on above: Performed By: #### L 501.4021, L500.2500, L100.0100 #### [facility] [address] [place], [address] Hematocrit (Bld) [Volume fraction] 35.0 % Low 40-54 [facility] Comment on above: Performed By: #### L 501.4021, L500.2500, L100.0100 #### [facility] [address] [place], [address] Hemoglobin (Bld) [Mass/Vol] 11.1 g/dL Low 13.0-16.5 [facility] Comment on above: Performed By: #### L 501.4021, L500.2500, L100.0100 #### [facility] [address] [place], [address] IG% 0.500 Normal 0.0-0.9 [facility] Comment on above: Result Comment: IG% - Immature Granulocytes (promyelocytes, myelocytes and metamyelocytes) > 1% indicates that a LEFT SHIFT is Present. Performed By: #### L 501.4021, L500.2500, L100.0100 #### [facility] [address] [place], [address] Lymphocytes/100 WBC (Bld) 11.8 % Low 19-41 [facility] Comment on above: Performed By: #### L 501.4021, L500.2500, L100.0100 #### [facility] [address] [place], [address] MCH (RBC) [Entitic mass] 29.4 pg Normal 27.0-32.0 [facility] Comment on above: Performed By: #### L 501.4021, L500.2500, L100.0100 #### [facility] [address] [place], [address] MCHC (RBC) [Mass/Vol] 31.7 g/dL Low 32-36 [facility] Comment on above: Performed By: #### L 501.4021, L500.2500, L100.0100 #### [facility] [address] [place], [address] MCV (RBC) [Entitic vol] 92.6 fL Normal 80-94 [facility] Comment on above: Performed By: #### L 501.4021, L500.2500, L100.0100 #### [facility] [address] [place], [address] Monocytes/100 WBC (Bld) 8.8 % Normal 0-10 [facility] Comment on above: Performed By: #### L 501.4021, L500.2500, L100.0100 #### [facility] [address] [place], [address] Neutrophils/100 WBC (Bld) 77.5 % High 47-70 [facility] Comment on above: Performed By: #### L 501.4021, L500.2500, L100.0100 #### [facility] [address] [place], [address] Nucleated RBC (Bld) [#/Vol] 0 10*3/uL Normal 0-5 [facility] Comment on above: Performed By: #### L 501.4021, L500.2500, L100.0100 #### [facility] [address] [place], [address] Platelet mean volume (Bld) [Entitic vol] 9.8 fL Normal 6.2-12.0 [facility] Comment on above: Performed By: #### L 501.4021, L500.2500, L100.0100 #### [facility] [address] [place], [address] Platelets (Bld) [#/Vol] 301 10*3/uL Normal 150-450 [facility] Comment on above: Performed By: #### L 501.4021, L500.2500, L100.0100 #### [facility] [address] [place], [address] RBC (Bld) [#/Vol] 3.78 10*6/uL Low 4.6-6.2 [facility] Comment on above: Performed By: #### L 501.4021, L500.2500, L100.0100 #### [facility] [address] [place], [address] RDW SD 49.2 fl High 35.1-43.9 [facility] Comment on above: Performed By: #### L 501.4021, L500.2500, L100.0100 #### [facility] [address] [place], [address] WBC (Bld) [#/Vol] 11.6 10*3/uL High 4.4-11.0 [facility] Comment on above: Performed By: #### L 501.4021, L500.2500, L100.0100 #### [facility] [address] [place], [address] CNOVon 07-05-2025 CNOV Office Visit (GENM4) -------- RAYA MCNAIR ([id number]) 1940 M Date Time Provider Department 07/05/25 4:30 PM JOSE RAMON MEDINA GEN4 During your visit today, we recorded the following information about you: Temperature Pulse Respiration Blood pressure 97.5 degrees 75/minute 24/minute 122/57 Jose Ramon Medina MD 07/11/2025 4:26 PM Signed CC - [...] He continues to follow up with his activities assistant, with an appointment scheduled for the [...] - Follow-up with cardiology post-cardioversion. 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 - vit A,C,K-Bgnc-Hvwfjt (PRESERVISION AREDS) 7,160 unit- 113 mg-100 unit tab - amlodipine (more content not included)... Normal [facility] Eosinophil percentageOrdered By: Vernon Prado on 07-05-2025 Eosinophils/100 WBC (Bld) 0.9 % 0-5 [facility] Erythrocyte distribution wid th ratioOrdered By: Vernon Prado on 07-05-2025 Erythrocyte distribution width (RBC) [Ratio] 14.6 % 11.6-14.6 [facility] Erythrocyte distribution wid th standard deviationOrdered By: Vernon Prado on 07-05-2025 Erythrocyte distribution width (RBC) [Ratio] 49.2 fl High 35.1-43.9 [facility] Ferritinon 07-05-2025 Ferritin [Mass/Vol] 85 ng/mL Normal 37-417 [facility] Comment on above: Performed By: #### L 501.4021, L500.2500, L100.0100 #### [facility] [address] [place], [address] Hematocrit Auto (Bld) [Volum e fraction]Ordered By: Vernon Prado on 07-05-2025 Hematocrit (Bld) [Volume fraction] 35.0 % Low 40-54 [facility] Hemoglobin measurementOrdere d By: Vernon Prado on 07-05-2025 Hemoglobin (Bld) [Mass/Vol] 11.1 g/dL Low 13.0-16.5 [facility] Immature granulocytes/100 WB C Auto (Bld)Ordered By: Vernon Prado on 07-05-2025 Immature granulocytes/100 WBC (Bld) 0.500 % 0.0-0.9 [facility] Comment on above: IG% - Immature Granu locytes (promyelocytes, myelocytes and metamyelocytes) > 1% indicates that a LEFT SHIFT is Present. Ironon 07-05-2025 Iron [Mass/Vol] 28 ug/dL Low 65-175 [facility] Comment on above: Performed By: #### L 501.4021, L500.2500, L100.0100 #### [facility] [address] [facility] [place], [place], [id number] (591) Iron measurement (mass/mass) Ordered By: Vernon Prado on 07-05-2025 Iron (Unsp spec) [Mass/Mass] 28 ug/dL Low 65-175 [facility] MCV (mean corpuscular volume ) determinationOrdered By: Vernon Prado on 07-05-2025 MCV (RBC) [Entitic vol] 92.6 fL 80-94 [facility] Mean corpuscular hemoglobin (MCH) determinationOrdered By: Vernon Prado on 07-05-2025 MCH (RBC) [Entitic mass] 29.4 pg 27.0-32.0 [facility] Mean corpuscular hemoglobin concentration (MCHC) determinationOrdered By: Vernon Prado on 07-05-2025 MCHC (RBC) [Mass/Vol] 31.7 g/dL Low 32-36 [facility] Mean platelet volume determi nationOrdered By: Vernon Prado on 07-05-2025 Platelet mean volume (Bld) [Entitic vol] 9.8 fL 6.2-12.0 [facility] Monocyte percentageOrdered B y: Vernon Prado on 07-05-2025 Monocytes/100 WBC (Bld) 8.8 % 0-10 [facility] Neutrophil percentageOrdered By: Vernon Prado on 07-05-2025 Neutrophils/100 WBC (Bld) 77.5 % High 47-70 [facility] Nucleated red blood cell per centageOrdered By: Vernon Prado on 07-05-2025 Nucleated RBC/100 WBC (Bld) [Ratio] 0 % 0-5 [facility] Platelet countOrdered By: Ra ely Prado on 07-05-2025 Platelets (Bld) [#/Vol] 301 10*3/uL 150-450 [facility] RBC Auto (Bld) [#/Vol]Ordere d By: Vernon Prado on 07-05-2025 RBC (Bld) [#/Vol] 3.78 10*6/uL Low 4.6-6.2 [facility] Retic Panelon 07-05-2025 IM RET FRACTION 14.70 Normal 3.00-15.90 [facility] Comment on above: Performed By: #### L 501.4021, L500.2500, L100.0100 #### [facility] Laboratory [facility] [place], [address] RET-HE 29.6 pg Low 30-35 [facility] Comment on above: Performed By: #### L 501.4021, L500.2500, L100.0100 #### [facility] [address] [place], [address] Retic Count 2.20 High 0.5-1.5 [facility] Comment on above: Performed By: #### L 501.4021, L500.2500, L100.0100 #### [facility] [address] [place], [address] Reticulocyte hemoglobin equi valent (RET-He) measurementOrdered By: Vernon Prado on 07-05-2025 Hemoglobin (Reticulocytes) [Entitic mass] 29.6 pg Low 30-35 [facility] Reticulocytes Auto (Bld) [#/ Vol]Ordered By: Vernon Prado on 07-05-2025 Reticulocytes/100 RBC (Bld) 2.20 % High 0.5-1.5 [facility] Serum or plasma ferritin silvia surement (mass/volume)Ordered By: Vernon Friend on 07-05-2025 Ferritin [Mass/Vol] 85 ng/mL 37-417 [facility] TransferrinOrdered By: José Miguel baldwin Friend on 07-05-2025 Transferrin [Mass/Vol] 198 mg/dL 149-313 [facility] Comment on above: Performed at: [address] [id number] Director: Kulwinder Schaefer PhD, Phone: [phone] White blood cell (WBC) count Ordered By: Vernon Prado on 07-05-2025 WBC (Bld) [#/Vol] 11.6 10*3/uL High 4.4-11.0 [facility] Cardiology Visit Reporton Cardiology Visit Report [facility] [address] [place], [place] [address] OFFICE VISIT Date of Service: 06/28/25 MR#: [id number] Acct: [id number] Name: RAYA MCNAIR Rep #: [id number] : 1940 Provider: ATO donohue Age/Sex: 85/M Location: [facility] Status: Signed HPI HPI History of Present Illness Surgical H P: Yes Details: Raya Mcnair is an 85-year-old male who presents to the office today for a cardiovascular outpatient follow-up. He was evaluated at [facility] in February 2021 for increasing angina. He underwent a heart catheterization on 03/19/2021 that demonstrated multivessel coronary artery disease. He underwent drug-eluting stent to proximal OM2. He returned to [facility] on 04/03/2021 for a stage PCI and underwent drug-eluting stent to LAD. Echocardiogram on 03/19/2021 showed an ejection fraction of 65%. He also has a history of hypertension, hyperlipidemia, and diabetes. Patient had presented to the emergency room on 06/19/2025 with complaints of palpitations. He was previously at his PCPs office and underwent an EKG which demonstrated new onset atrial fibrillation. He had not been feeling well, and had some exertional shortness of breath and leg swelling. He was started on Eliquis, and diltiazem and instructed to follow-up in our office in a week. From a cardiac standpoint, the patient is doing well. He states he has had one episodes of a fluttering sensation. He denies any chest pain, pressure or heaviness. He does acknowledge SOB with exertion and at rest. He denies Orthopnea, and PND. He does not have bleeding issues; no blood in urine, stool, or nosebleeds. He does acknowledge fatigue. He denies any decrease in energy level, myalgias, or claudication. He does not have edema, or sudden weight gain. He denies lightheadedness, dizziness, syncopal or near syncopal episodes, and headaches. Intake Vital Signs 06/19/25 15:47 06/28/25 10:16 Height 5 ft 10 in 5 ft 10 in Weight: 230 lb BMI 33.0 BP 120/65 Blood Pressure Location Lt brachial Position Sitting Respiration 18 Pulse 80 Pulse Source Monitor Intake Visit Reasons: [facility] 06/19 AFIB Embroidery Specialist Required: No Is patient in pain?: No Allergies gluten Adverse Reaction (Verified 06/28/25 13:56) upset stomach/diarrhea lactose Adverse Reaction (Verified 06/28/25 13:56) upset stomach/diarrhea Medications ???Medication ???Instructions ???Recorded ???Confirmed ???Type aspirin 81 mg tablet,delayed 81 mg PO DAILY@0800 heart health 0 03/18/21 06/28/25 History release cholecalciferol (vitamin D3) 50 4,000 unit PO DAILY SUPPLEMENT 06/28/25 History mcg (2,000 unit) capsule vit C 250 mg-vit E 90 mg-zinc 40 1 cap PO BID EYE HEALTH 03/18/21 0 06/28/25 History mg-copper 1 [id number] capsule atorvastatin 40 mg tablet 40 mg PO QHS #90 tabs 04/11/21 Rx isosorbide mononitrate 30 mg 30 mg PO DAILY #90 tabs 04/11/21 0 06/28/25 Rx tablet,extended release 24 hr vitamin E mixed 400 unit capsule 400 unit PO DAILY 02/16/22 5 History diphenhydramine HCl 25 mg capsule 25 mg PO QHS PRN 06/09/23 5 History (Benadryl) montelukast 10 mg tablet 10 mg PO QHS 10/19/23 06/28/25 His tory valsartan 320 mg tablet 320 mg PO DAILY 10/19/23 06/28/25 History hydrochlorothiazide 25 mg tablet 25 mg PO Q OTHER DAY 07/19/2405/31 History amlodipine 10 mg tablet 10 mg PO DAILY 12/26/24 06/28/25 H istory Held on 06/28/25. Instructions: HOld metoprolol succinate 50 mg 100 mg PO DAILY 12/26/24 06/28/25 History tablet,extended release 24 hr tamsulosin 0.4 mg capsule 0.4 mg PO QDAY 12/26/24 06/28/25 H istory famotidine 20 mg tablet 20 mg PO DAILY #90 tabs 01/15/25 0 06/28/25 Rx apixaban 5 mg tablet (Eliquis) 5 mg PO BID #180 tabs 06/28/25 Rx diltiazem HCl 120 mg 120 mg PO QHS #90 caps 06/28/25 Rx capsule,extended release 24 hr (Cardizem CD) dulaglutide 3 mg/0.5 mL 3 mg (0.5 mL) subcut QWEEK #2 mL 0 06/28/25 06/28/25 Rx subcutaneous pen injector (Trulicity) metformin 500 mg tablet,extended 500 mg PO ONCE 06/28/25 06/28/25 H istory release 24 hr Ejection fraction %: 65 Have you fallen in the past year?: No PFSH Medical History Hyperlipidemia Skin cancer Pneumonia Heart disease Gastrointestinal problem Gall stones Cataract Bone fracture Allergies Type 2 diabetes mellitus Hypertension Celiac disease Anxiety Coronary artery disease Hypertension Atherosclerotic heart disease of [place] coronary artery without angina pectoris Surgical History Hx of melanoma excision History of cho (more content not included)... Normal [facility] Celiac Disease Profileon ENDOMYSIAL IGA Negative Normal Negative [facility] Comment on above: Performed By: #### L 300.8000 #### [facility] [address] [place], [address] tTG IGA <2 Normal 0-3 [facility] [facility] Comment on above: Result Comment: Nega tive 0 - 3 Weak Positive 4 - 10 Positive >10 Tissue Transglutaminase (tTG) has been identified as the endomysial antigen. Studies have demonstr- ated that endomysial IgA antibodies have over 99% specificity for gluten sensitive enteropathy. Performed By: #### L 300.8000 #### [facility] [address] [place], [place], [id number] ABIMAEL + Protein Elect, Serumon 06-28-2025 Albumin [Mass/Vol] 3.3 g/dL Normal 2.9-4.4 [facility] Comment on above: Order Comment: N Performed By: #### L 300.8000 #### [facility] [address] [place], [place], [id number] Albumin/Globulin [Mass ratio] 1.2 {ratio} Normal 0.7-1.7 [facility] Comment on above: Order Comment: N Performed By: #### L 300.8000 #### [facility] [address] [place], [address] [id number] 0.3 g/dL Normal 0.0-0.4 [facility] Comment on above: Order Comment: N Performed By: #### L 300.8000 #### [facility] [address] [place], [address] [id number] 1.0 g/dL Normal 0.4-1.0 [facility] Comment on above: Order Comment: N Performed By: #### L 300.8000 #### [facility] [address] [place], [address] BETA GLOBULIN 0.7 g/dL Normal 0.7-1.3 [facility] Comment on above: Order Comment: N Performed By: #### L 300.8000 #### [facility] [address] [place], [address] GAMMA GLOBULIN 0.8 g/dL Normal 0.4-1.8 [facility] Comment on above: Order Comment: N Performed By: #### L 300.8000 #### [facility] [address] [place], [address] Globulin (S) [Mass/Vol] 2.8 g/dL Normal 2.2-3.9 [facility] Comment on above: Order Comment: N Performed By: #### L 300.8000 #### [facility] [address] [place], [address] ABIMAEL RESULT,S Comment Normal . [facility] Comment on above: Order Comment: N Result Comment: No m onoclonality detected. Performed By: #### L 300.8000 #### [facility] [address] [place], [address] IMMUNOGLOB A QN 102 mg/dL Normal 61-437 [facility] Comment on above: Order Comment: N Performed By: #### L 300.8000 #### [facility] [address] [place] [place], [address] IMMUNOGLOB G QN 866 mg/dL Normal 603-1613 [facility] Comment on above: Order Comment: N Performed By: #### L 300.8000 #### [facility] [address] [place], [address] IMMUNOGLOB M QN 79 mg/dL Normal 15-143 [facility] Comment on above: Order Comment: N Performed By: #### L 300.8000 #### [facility] [address] [place], [address] M-Eladio Not Observed Normal Not Observed [facility] Comment on above: Order Comment: N Performed By: #### L 300.8000 #### [facility] [address] [place], [place], [address] NOTE: Comment Normal . [facility] Comment on above: Order Comment: N Result Comment: Prot ein electrophoresis scan will follow via computer, mail, or merchandise supervisor delivery. Performed at: [facility] [id number] [employer] Apprentice: Kulwinder Schaefer PhD, Phone: [phone] Performed By: #### L 300.8000 #### [facility] [address] [place], [place], [id number] Protein [Mass/Vol] 6.1 g/dL Normal 6.0-8.5 [facility] Comment on above: Order Comment: N Performed By: #### L 300.8000 #### [facility] [address] [place] [place], [address] Absolute lymphocyte countOrd ered By: Vernon Prado on 06-26-2025 Lymphocytes Auto (Unsp spec) [#/Vol] 1.71 10*3/uL 0.83-4.51 [facility] Absolute neutrophil countOrd ered By: Vernon Prado on 06-26-2025 Neutrophils (Bld) [#/Vol] 7.8 10*3/uL High 2.0-7.7 [facility] Albumin Elph [Mass/Vol]Order ed By: Vernon Prado on 06-26-2025 Albumin [Mass/Vol] 3.3 g/dL 2.9-4.4 [facility] Anion gap in Serum or Plasma Ordered By: Vernonashlee Prado on 06-26-2025 Anion gap [Moles/Vol] 14 mmol/L 5-15 [facility] Automated lymphocyte count a s percentage of total leukocytesOrdered By: Vernonashlee Prado on 06-26-2025 Lymphocytes/100 WBC Auto (Unsp spec) 16.1 % Low 19-41 [facility] BUN/creatinine ratioOrdered By: Vernonashlee Prado on 06-26-2025 Urea nitrogen/Creatinine [Mass ratio] 20.3 mg/mg High 10-20 [facility] Basophil percentageOrdered B y: Vernon Johan on 06-26-2025 Basophils/100 WBC (Bld) 0.6 % 0-1 [facility] Bilirubin, totalOrdered By: Vernonashlee Pardo on 06-26-2025 Bilirubin [Mass/Vol] 0.44 mg/dL 0.00-1.30 [facility] CBC W/Diff, Automatedon 05-30 Absolute Lymph 1.71 X10 3/uL Normal 0.83-4.51 [facility] Comment on above: Performed By: #### L 504.2610, L501.24951, L100.0100, L501.6710, L3410.2400, L506.0400, L501.9520, L500.4050, L3100.3425, L101.9900 #### [facility] [address] [place], [place], [id number] Absolute Neut 7.8 X10 3/uL High 2.0-7.7 [facility] Comment on above: Performed By: #### L 504.2610, L501.40557, L100.0100, L501.6710, L3410.2400, L506.0400, L501.9520, L500.4050, L3100.3425, L101.9900 #### [facility] [address] [facility] [place], [address] Basophils/100 WBC (Bld) 0.6 % Normal 0-1 [facility] Comment on above: Performed By: #### L 504.2610, L501.96858, L100.0100, L501.6710, L3410.2400, L506.0400, L501.9520, L500.4050, L3100.3425, L101.9900 #### [facility] [address] [place], [place], [phone] ([phone] Eosinophils/100 WBC (Bld) 1.6 % Normal 0-5 [facility] Comment on above: Performed By: #### L 504.2610, L501.61914, L100.0100, L501.6710, L3410.2400, L506.0400, L501.9520, L500.4050, L3100.3425, L101.9900 #### [facility] [address] [facility] [place], [address] Erythrocyte distribution width (RBC) [Ratio] 13.8 % Normal 11.6-14.6 [facility] Comment on above: Performed By: #### L 504.2610, L501.44329, L100.0100, L501.6710, L3410.2400, L506.0400, L501.9520, L500.4050, L3100.3425, L101.9900 #### [facility] [address] [facility] [place], [address] Hematocrit (Bld) [Volume fraction] 35.8 % Low 40-54 [facility] Comment on above: Performed By: #### L 504.2610, L501.86814, L100.0100, L501.6710, L3410.2400, L506.0400, L501.9520, L500.4050, L3100.3425, L101.9900 #### [facility] [address] [place], [address] Hemoglobin (Bld) [Mass/Vol] 11.9 g/dL Low 13.0-16.5 [facility] Comment on above: Performed By: #### L 504.2610, L501.85940, L100.0100, L501.6710, L3410.2400, L506.0400, L501.9520, L500.4050, L3100.3425, L101.9900 #### [facility] [address] [place], [address] ( IG% 0.400 Normal 0.0-0.9 [facility] Comment on above: Result Comment: IG% - Immature Granulocytes (promyelocytes, myelocytes and metamyelocytes) > 1% indicates that a LEFT SHIFT is Present. Performed By: #### L 504.2610, L501.11959, L100.0100, L501.6710, L3410.2400, L506.0400, L501.9520, L500.4050, L3100.3425, L101.9900 #### [facility] [address] [place], [address] Lymphocytes/100 WBC (Bld) 16.1 % Low 19-41 [facility] Comment on above: Performed By: #### L 504.2610, L501.37482, L100.0100, L501.6710, L3410.2400, L506.0400, L501.9520, L500.4050, L3100.3425, L101.9900 #### [facility] [address] [place], [address] MCH (RBC) [Entitic mass] 30.5 pg Normal 27.0-32.0 [facility] Comment on above: Performed By: #### L 504.2610, L501.23802, L100.0100, L501.6710, L3410.2400, L506.0400, L501.9520, L500.4050, L3100.3425, L101.9900 #### [facility] [address] [place], [address] MCHC (RBC) [Mass/Vol] 33.2 g/dL Normal 32-36 [facility] Comment on above: Performed By: #### L 504.2610, L501.64730, L100.0100, L501.6710, L3410.2400, L506.0400, L501.9520, L500.4050, L3100.3425, L101.9900 #### [facility] [address] [place], [place], [phone] (978) MCV (RBC) [Entitic vol] 91.8 fL Normal 80-94 [facility] Comment on above: Performed By: #### L 504.2610, L501.40869, L100.0100, L501.6710, L3410.2400, L506.0400, L501.9520, L500.4050, L3100.3425, L101.9900 #### [facility] [address] [place], [address] Monocytes/100 WBC (Bld) 7.5 % Normal 0-10 [facility] Comment on above: Performed By: #### L 504.2610, L501.56490, L100.0100, L501.6710, L3410.2400, L506.0400, L501.9520, L500.4050, L3100.3425, L101.9900 #### [facility] [address] [place], [address] Neutrophils/100 WBC (Bld) 73.8 % High 47-70 [facility] Comment on above: Performed By: #### L 504.2610, L501.43756, L100.0100, L501.6710, L3410.2400, L506.0400, L501.9520, L500.4050, L3100.3425, L101.9900 #### [facility] [address] [place], [address] Nucleated RBC (Bld) [#/Vol] 0 10*3/uL Normal 0-5 [facility] Comment on above: Performed By: #### L 504.2610, L501.34365, L100.0100, L501.6710, L3410.2400, L506.0400, L501.9520, L500.4050, L3100.3425, L101.9900 #### [facility] [address] [place], [place], [phone] (538) Platelet mean volume (Bld) [Entitic vol] 10.0 fL Normal 6.2-12.0 [facility] Comment on above: Performed By: #### L 504.2610, L501.34261, L100.0100, L501.6710, L3410.2400, L506.0400, L501.9520, L500.4050, L3100.3425, L101.9900 #### [facility] [address] [place], [address] Platelets (Bld) [#/Vol] 349 10*3/uL Normal 150-450 [facility] Comment on above: Performed By: #### L 504.2610, L501.17278, L100.0100, L501.6710, L3410.2400, L506.0400, L501.9520, L500.4050, L3100.3425, L101.9900 #### [facility] [address] [place], [address] RBC (Bld) [#/Vol] 3.90 10*6/uL Low 4.6-6.2 [facility] Comment on above: Performed By: #### L 504.2610, L501.36467, L100.0100, L501.6710, L3410.2400, L506.0400, L501.9520, L500.4050, L3100.3425, L101.9900 #### [facility] [address] [place], [address] RDW SD 46.5 fl High 35.1-43.9 [facility] Comment on above: Performed By: #### L 504.2610, L501.91382, L100.0100, L501.6710, L3410.2400, L506.0400, L501.9520, L500.4050, L3100.3425, L101.9900 #### [facility] [address] [place], [place], [phone] WBC (Bld) [#/Vol] 10.6 10*3/uL Normal 4.4-11.0 [facility] Comment on above: Performed By: #### L 504.2610, L501.73326, L100.0100, L501.6710, L3410.2400, L506.0400, L501.9520, L500.4050, L3100.3425, L101.9900 #### [facility] [address] [place], [address] CRPon 06-26-2025 C-REACTIVE PROT 18.00 mg/L High 0.0-3.0 [facility] Comment on above: Performed By: #### L 300.8000 #### [facility] [address] [place], [place], [phone] Carbon dioxide, total [Moles /volume] in Central venous bloodOrdered By: Vernon Prado on 06-26-2025 CO2 [Moles/Vol] 22.7 mmol/L 21.0-32.0 [facility] Chloride assayOrdered By: Ra ely Prado on 06-26-2025 Chloride [Moles/Vol] 103 mmol/L 98-108 [facility] Comprehensive Metabolic Prof ilon 06-26-2025 Albumin [Mass/Vol] 3.7 g/dL Normal 3.4-4.8 [facility] Comment on above: Performed By: #### L 504.2610, L501.82378, L100.0100, L501.6710, L3410.2400, L506.0400, L501.9520, L500.4050, L3100.3425, L101.9900 #### [facility] [address] [place], [place], [phone] (334) Albumin/Globulin [Mass ratio] 1.4 {ratio} Normal 0.9-2.4 [facility] Comment on above: Performed By: #### L 504.2610, L501.07686, L100.0100, L501.6710, L3410.2400, L506.0400, L501.9520, L500.4050, L3100.3425, L101.9900 #### [facility] [address] [place], [place], [id number] ALK PHOS 92 U/L Normal 40-129 [facility] Comment on above: Performed By: #### L 504.2610, L501.85117, L100.0100, L501.6710, L3410.2400, L506.0400, L501.9520, L500.4050, L3100.3425, L101.9900 #### [facility] [address] [place], [address] ALT [Catalytic activity/Vol] 12 U/L Normal <=46 [facility] Comment on above: Performed By: #### L 504.2610, L501.29297, L100.0100, L501.6710, L3410.2400, L506.0400, L501.9520, L500.4050, L3100.3425, L101.9900 #### [facility] [address] [place], [address] AST [Catalytic activity/Vol] 12 U/L Normal <=37 [facility] Comment on above: Performed By: #### L 504.2610, L501.77741, L100.0100, L501.6710, L3410.2400, L506.0400, L501.9520, L500.4050, L3100.3425, L101.9900 #### [facility] [address] [place], [address] Bilirubin [Mass/Vol] 0.44 mg/dL Normal 0.00-1.30 [facility] Comment on above: Performed By: #### L 504.2610, L501.15336, L100.0100, L501.6710, L3410.2400, L506.0400, L501.9520, L500.4050, L3100.3425, L101.9900 #### [facility] [address] [place], [place], [phone] (242) BUN/CRE 20.3 RATIO High 10-20 [facility] Comment on above: Performed By: #### L 504.2610, L501.15456, L100.0100, L501.6710, L3410.2400, L506.0400, L501.9520, L500.4050, L3100.3425, L101.9900 #### [facility] [address] [place], [address] Calcium [Mass/Vol] 9.1 mg/dL Normal 7.6-11.0 [facility] Comment on above: Performed By: #### L 504.2610, L501.70774, L100.0100, L501.6710, L3410.2400, L506.0400, L501.9520, L500.4050, L3100.3425, L101.9900 #### [facility] [address] [place], [place], [phone] (000) Chloride [Moles/Vol] 103 mmol/L Normal 98-108 [facility] Comment on above: Performed By: #### L 504.2610, L501.82487, L100.0100, L501.6710, L3410.2400, L506.0400, L501.9520, L500.4050, L3100.3425, L101.9900 #### [facility] [address] [place], [place], [phone] (444) CO2 [Moles/Vol] 22.7 mmol/L Normal 21.0-32.0 [facility] Comment on above: Performed By: #### L 504.2610, L501.29971, L100.0100, L501.6710, L3410.2400, L506.0400, L501.9520, L500.4050, L3100.3425, L101.9900 #### [facility] [address] [facility] [address] [place], [place], [phone] Creatinine [Mass/Vol] 1.15 mg/dL Normal 0.70-1.20 [facility] Comment on above: Performed By: #### L 504.2610, L501.98188, L100.0100, L501.6710, L3410.2400, L506.0400, L501.9520, L500.4050, L3100.3425, L101.9900 #### [facility] [address] [place], [place], [phone] (803) GAP 14 Normal 5-15 [facility] Comment on above: Performed By: #### L 504.2610, L501.55124, L100.0100, L501.6710, L3410.2400, L506.0400, L501.9520, L500.4050, L3100.3425, L101.9900 #### [facility] [address] [place], [address] GFR/1.73 sq M.predicted among non-blacks MDRD (S/P/Bld) [Vol rate/Area] 62 mL/min/{1.73_m2} Normal >60 [facility] Comment on above: Result Comment: mL/m in/1.73m2 CKD-EPI Creatinine Equation (2020) Performed By: #### L 504.2610, L501.22330, L100.0100, L501.6710, L3410.2400, L506.0400, L501.9520, L500.4050, L3100.3425, L101.9900 #### [facility] [address] [place], [address] Globulin (S) [Mass/Vol] 2.8 g/dL Normal 2.2-4.2 [facility] Comment on above: Performed By: #### L 504.2610, L501.99195, L100.0100, L501.6710, L3410.2400, L506.0400, L501.9520, L500.4050, L3100.3425, L101.9900 #### [facility] [address] [place], [address] Glucose [Mass/Vol] 115 mg/dL High 70-99 [facility] Comment on above: Performed By: #### L 504.2610, L501.49410, L100.0100, L501.6710, L3410.2400, L506.0400, L501.9520, L500.4050, L3100.3425, L101.9900 #### [facility] [address] [place], [address] Potassium [Moles/Vol] 4.1 mmol/L Normal 3.3-5.1 [facility] Comment on above: Performed By: #### L 504.2610, L501.98423, L100.0100, L501.6710, L3410.2400, L506.0400, L501.9520, L500.4050, L3100.3425, L101.9900 #### [facility] [address] [place], [place], [phone] (174) Sodium [Moles/Vol] 139 mmol/L Normal 133-145 [facility] Comment on above: Performed By: #### L 504.2610, L501.36498, L100.0100, L501.6710, L3410.2400, L506.0400, L501.9520, L500.4050, L3100.3425, L101.9900 #### [facility] [address] [place], [place], [phone] (704) T PROT 6.5 g/dL Normal 5.9-8.4 [facility] Comment on above: Performed By: #### L 504.2610, L501.39083, L100.0100, L501.6710, L3410.2400, L506.0400, L501.9520, L500.4050, L3100.3425, L101.9900 #### [facility] [address] [place], [place], [phone] (607) Urea nitrogen [Mass/Vol] 23 mg/dL High 4-19 [facility] Comment on above: Performed By: #### L 504.2610, L501.52969, L100.0100, L501.6710, L3410.2400, L506.0400, L501.9520, L500.4050, L3100.3425, L101.9900 #### [facility] [address] [place], [place], [phone] (267) Eosinophil percentageOrdered By: Vernon Prado on 06-26-2025 Eosinophils/100 WBC (Bld) 1.6 % 0-5 [facility] Erythrocyte Sed Rateon 06-26 SED RATE 11 mm/hr Normal 0-20 [facility] Comment on above: Performed By: #### L 504.2610, L501.16031, L100.0100, L501.6710, L3410.2400, L506.0400, L501.9520, L500.4050, L3100.3425, L101.9900 #### [facility] [address] [place], [place], [phone] Erythrocyte distribution wid th ratioOrdered By: Vernon Prado on 06-26-2025 Erythrocyte distribution width (RBC) [Ratio] 13.8 % 11.6-14.6 [facility] Erythrocyte distribution wid th standard deviationOrdered By: Vernon Prado on 06-26-2025 Erythrocyte distribution width (RBC) [Ratio] 46.5 fl High 35.1-43.9 [facility] Erythrocyte sedimentation ra teOrdered By: Vernon Prado on 06-26-2025 ESR (Bld) [Velocity] 11 mm/h 0-20 [facility] Free T3on 06-26-2025 Free T3 [Mass/Vol] 2.8 pg/mL Normal 2.18-3.98 [facility] Comment on above: Performed By: #### L 300.8000 #### [facility] [address] [place], [place], [id number] Free H8Lipgyxi By: Vernon fletcher on 06-26-2025 Free T3 [Mass/Vol] 2.8 pg/mL 2.18-3.98 [facility] Gastroenterology Visit Repor ton 06-26-2025 Gastroenterology Visit Report [facility] [address] [place] [address] OFFICE VISIT Date of Service: 06/26/25 MR#: [id number] Acct: [id number] Name: RAYA MCNAIR Rep #: [id number] : 1940 Provider: Vernon Prado DO Age/Sex: 85/M Location: [facility] [place] Status: Signed Intake Vital Signs 12/26/24 09:47 06/19/25 15:47 Height 5 ft 1 in 5 ft 10 in Intake Visit Reasons: 6 M FU Allergies gluten Adverse Reaction (Verified 06/19/25 15:49) upset stomach/diarrhea lactose Adverse Reaction (Verified 06/19/25 15:49) upset stomach/diarrhea Medications ???Medication ???Instructions ???Recorded ???Confirmed ???Type aspirin 81 mg tablet,delayed 81 mg PO DAILY@0800 heart health 0 03/18/21 06/26/25 History release cholecalciferol (vitamin D3) 50 4,000 unit PO DAILY SUPPLEMENT 06/26/25 History mcg (2,000 unit) capsule vit C 250 mg-vit E 90 mg-zinc 40 1 cap PO BID EYE HEALTH 03/18/21 0 06/26/25 History mg-copper 1 [id number]-cdxonm capsule atorvastatin 40 mg tablet 40 mg PO QHS #90 tabs 04/11/21 Rx isosorbide mononitrate 30 mg 30 mg PO DAILY #90 tabs 04/11/21 0 06/26/25 Rx tablet,extended release 24 hr vitamin E mixed 400 unit capsule 400 unit PO DAILY 02/16/22 5 History metformin 500 mg tablet,extended 500 mg PO BID 08/20/22 06/26/25 Hi story release 24 hr diphenhydramine HCl 25 mg capsule 25 mg PO QHS PRN 06/09/23 5 History (Benadryl) cetirizine 10 mg tablet 10 mg PO DAILY 10/19/23 06/26/25 H istory montelukast 10 mg tablet 10 mg PO QHS 10/19/23 06/26/25 His tory valsartan 320 mg tablet 320 mg PO DAILY 10/19/23 06/26/25 History hydrochlorothiazide 25 mg tablet 25 mg PO Q OTHER DAY 07/19/2405/30 History amlodipine 10 mg tablet 10 mg PO DAILY 12/26/24 06/26/25 H istory metoprolol succinate 50 mg 100 mg PO DAILY 12/26/24 06/26/25 History tablet,extended release 24 hr tamsulosin 0.4 mg capsule 0.4 mg PO QDAY 12/26/24 06/26/25 H istory famotidine 20 mg tablet 20 mg PO DAILY #90 tabs 01/15/25 0 06/26/25 Rx dulaglutide 3 mg/0.5 mL 3 mg (0.5 mL) subcut QWEEK #2 mL 0 01/17/25 06/26/25 Rx subcutaneous pen injector (Trulicity) apixaban 5 mg tablet (Eliquis) 5 mg PO BID 30 days #60 tabs 06/1906/26/25 Rx diltiazem HCl 120 mg 120 mg PO QHS 30 days #30 caps 06/26/25 Rx capsule,extended release 24 hr (Cardizem CD) Have you fallen in the past year?: No PFSH Medical History Hyperlipidemia Skin cancer Pneumonia Heart disease Gastrointestinal problem Gall stones Cataract Bone fracture Allergies Type 2 diabetes mellitus Hypertension Celiac disease Anxiety Coronary artery disease Hypertension Atherosclerotic heart disease of [place] coronary artery without angina pectoris Surgical History Hx of melanoma excision History of cholecystectomy Presence of coronary angioplasty implant and graft ( 04/03/21) Presence of stent in coronary artery ( 04/03/21) Family History Other Asthma Cancer Diabetes H/O transfusion of whole blood Heart disease Hypertension Liver disease Melanoma Myocardial infarction Skin cancer Social History Smoking Status: Former smoker how long ago did patient quit smokin years ago alcohol intake: current alcohol intake frequency: holidays/special occasions only substance use type: does not use caffeine: Yes Type: coffee Number of servings: 2 and tea Number of servings: 1 what type of physical activity do you participate in: other details: cardio frequency: 3-4 times per week HPI HPI Details: RAYA MCNAIR, is a 85 M who presents to the office today for follow up. PMH CAD s/p stenting 5.6.21, heart disease, HTN, DMII. Recently had photodynamic therapy that is causing him to have some increased light-sensitivity today. PSH cholecystectomy 2004. ??? 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 Morning diarrhea 1-2 times a day with watery stools for many years without abdominal pain, mucus, blood or incontinence; previously diagnosed with celiac (does not follow celiac diet), unable to identify triggers. Manager Psychiatry stopped Trulicity for possible cause of diarrhea and started metformin and this was not helpful. ?Bio chemical???T3, ABIMAEL, IgGAM, celiac, ANCA, LUCAS comp, ESR, CBC, TSH, LDH, CMP (AST L11/AlkP H118), Vit B12 without pertinent abnormality. CRP H5.90, IgE L4, Crohn???s (apANCA, Oneal, ALCA, AMCA). Stool calprotectin, enteric pathogen, lactoferrin, C.Difficile, fecal f (more content not included)... Normal [facility] Glomerular filtration rate ( GFR) estimation/1.73 sq m using serum, plasma, or whole bOrdered By: Vernon Prado on 06-26-2025 GFR/1.73 sq M.predicted among non-blacks MDRD (S/P/Bld) [Vol rate/Area] 62 mL/min/{1.73_m2} >60 [facility] Comment on above: mL/min/1.73m2 CKD-EP I Creatinine Equation (2020) Hematocrit Auto (Bld) [Volum e fraction]Ordered By: Vernon Prado on 06-26-2025 Hematocrit (Bld) [Volume fraction] 35.8 % Low 40-54 [facility] Hemoglobin measurementOrdere d By: Vernon Prado on 06-26-2025 Hemoglobin (Bld) [Mass/Vol] 11.9 g/dL Low 13.0-16.5 [facility] Immature granulocytes/100 WB C Auto (Bld)Ordered By: Vernon Prado on 06-26-2025 Immature granulocytes/100 WBC (Bld) 0.400 % 0.0-0.9 [facility] Comment on above: IG% - Immature Granu locytes (promyelocytes, myelocytes and metamyelocytes) > 1% indicates that a LEFT SHIFT is Present. Interpretation of serum or p lasma protein pattern by immunofixation (narrative resultOrdered By: Vernon Prado on 06-26-2025 Protein Fractions Immunofixation Matheus [Interp] Not Observed g/dL Not Observed [facility] LDHon 06-26-2025 LDH 210 U/L Normal 87-241 [facility] Comment on above: Order Comment: 1 Performed By: #### L 300.8000 #### [facility] [address] [place], [address] Laboratory - Chemistry and C hemistry - challengeOrdered By: Vernon Prado on 06-26-2025 AST [Catalytic activity/Vol] 12 U/L <38 [facility] Lactate dehydrogenase (LDH) measurementOrdered By: Vernon Prado on 06-26-2025 LDH [Catalytic activity/Vol] 210 U/L 87-241 [facility] MCV (mean corpuscular volume ) determinationOrdered By: Vernon Prado on 06-26-2025 MCV (RBC) [Entitic vol] 91.8 fL 80-94 [facility] Mean corpuscular hemoglobin (MCH) determinationOrdered By: Vernon Prado on 06-26-2025 MCH (RBC) [Entitic mass] 30.5 pg 27.0-32.0 [facility] Mean corpuscular hemoglobin concentration (MCHC) determinationOrdered By: Vernon Prado on 06-26-2025 MCHC (RBC) [Mass/Vol] 33.2 g/dL 32-36 [facility] Mean platelet volume determi nationOrdered By: Vernon Prado on 06-26-2025 Platelet mean volume (Bld) [Entitic vol] 10.0 fL 6.2-12.0 [facility] Monocyte percentageOrdered B y: Vernon Prado on 06-26-2025 Monocytes/100 WBC (Bld) 7.5 % 0-10 [facility] Neutrophil percentageOrdered By: Vernon Prado on 06-26-2025 Neutrophils/100 WBC (Bld) 73.8 % High 47-70 [facility] No Panel InformationOrdered By: Vernon Prado on 06-26-2025 Addendum Document Comment . [facility] Comment on above: Protein electrophore sis scan will follow via computer,mail, or merchandise supervisor delivery.Performed at: [facility] [employer] [id number] Director: Kulwinder Schaefer PhD, Phone: [phone] Nucleated red blood cell per centageOrdered By: Vernon Prado on 06-26-2025 Nucleated RBC/100 WBC (Bld) [Ratio] 0 % 0-5 [facility] Platelet countOrdered By: Ra ely Prado on 06-26-2025 Platelets (Bld) [#/Vol] 349 10*3/uL 150-450 [facility] Potassium measurement (mass/ volume)Ordered By: Vernon Prado on 06-26-2025 Potassium (Unsp spec) [Mass/Vol] 4.1 mmol/L 3.3-5.1 [facility] RBC Auto (Bld) [#/Vol]Ordere d By: Vernon Prado on 06-26-2025 RBC (Bld) [#/Vol] 3.90 10*6/uL Low 4.6-6.2 [facility] Serum creatinine measurement (mass/volume)Ordered By: Vernon Prado on 06-26-2025 Creatinine [Mass/Vol] 1.15 mg/dL 0.70-1.20 [facility] Serum globulin measurement ( mass/volume)Ordered By: Vernon Prado on 06-26-2025 Globulin (S) [Mass/Vol] 2.8 g/dL 2.2-3.9 [facility] Serum glucose measurement (m ass/volume)Ordered By: Vernon Prado on 06-26-2025 Glucose [Mass/Vol] 115 mg/dL High 70-99 [facility] Serum or plasma C reactive p rotein measurement (mass/volume)Ordered By: Vernon Prado on 06-26-2025 CRP [Mass/Vol] 18.00 mg/L High 0.0-3.0 [facility] Serum or plasma IgA measurem ent (mass/volume)Ordered By: Vernon Prado on 06-26-2025 IgA [Mass/Vol] 102 mg/dL 61-437 [facility] Serum or plasma IgG measurem ent (mass/volume)Ordered By: Vernon Prado on 06-26-2025 IgG [Mass/Vol] 866 mg/dL 603-1613 [facility] Serum or plasma alanine hamm otransferase (ALT) measurementOrdered By: Vernon Prado on 06-26-2025 ALT [Catalytic activity/Vol] 12 U/L <47 [facility] Serum or plasma albumin nii urement (mass/volume)Ordered By: Vernon Prado on 06-26-2025 Albumin [Mass/Vol] 3.7 g/dL 3.4-4.8 [facility] Serum or plasma albumin/glob ulin mass ratioOrdered By: Vernon Prado on 06-26-2025 Albumin/Globulin [Mass ratio] 1.4 {ratio} 0.9-2.4 [facility] Serum or plasma alkaline chelsea sphatase measurementOrdered By: Vernon Prado on 06-26-2025 ALP [Catalytic activity/Vol] 92 U/L 40-129 [facility] Serum or plasma alpha 1 glob ulin measurement by electrophoresis (mass/volume)Ordered By: Vernon Prado on 06-26-2025 Alpha 1 globulin Elph [Mass/Vol] 0.3 g/dL 0.0-0.4 [facility] Alpha 1 globulin Elph [Mass/Vol] 1.0 g/dL 0.4-1.0 [facility] Serum or plasma beta globuli n measurement by electrophoresis (mass/volume)Ordered By: Vernon Prado on 06-26-2025 Beta globulin Elph [Mass/Vol] 0.7 g/dL 0.7-1.3 [facility] Serum or plasma calcium nii urement (mass/volume)Ordered By: Vernon Prado on 06-26-2025 Calcium [Mass/Vol] 9.1 mg/dL 7.6-11.0 [facility] Serum or plasma gamma globul in measurement by electrophoresis (mass/volume)Ordered By: Vernon Prado on 06-26-2025 Gamma globulin Elph [Mass/Vol] 0.8 g/dL 0.4-1.8 [facility] Serum or plasma immunoelectr ophoresis interpretation (nominal result)Ordered By: Vernon Prado on 06-26-2025 Interpretation IEP [Interp] Comment . [facility] Comment on above: No monoclonality det ected. Serum or plasma protein nii urement (mass/volume)Ordered By: Vernon Prado on 06-26-2025 Protein [Mass/Vol] 6.1 g/dL 6.0-8.5 [facility] Serum or plasma urea nitroge n measurement (mass/volume)Ordered By: Vernon Prado on 06-26-2025 Urea nitrogen [Mass/Vol] 23 mg/dL High 4-19 [facility] Serum tissue transglutaminas e (tTG) IgA antibody assay (units/volume)Ordered By: Vernon Prado on 06-26-2025 tTG IgA Qn (S) <2 U/mL 0-3 [facility] Comment on above: Negative 0 - 3 Weak Positive 4 - 10 Positive >10 Tissue Transglutaminase (tTG) has been identified as the endomysial antigen. Studies have demonstr- ated that endomysial IgA antibodies have over 99% specificity for gluten sensitive enteropathy. Sodium levelOrdered By: Lopez Monahan on 06-26-2025 Sodium [Moles/Vol] 139 mmol/L 133-145 [facility] T4 Free Directon 06-26-2025 T4 FREE DIRECT 1.50 ng/dL High 0.76-1.46 [facility] Comment on above: Performed By: #### L 300.8000 #### [facility] [address] [place], [place], [id number] T4 freeOrdered By: Vernon fletcher on 06-26-2025 Free T4 [Mass/Vol] 1.50 ng/dL High 0.76-1.46 [facility] TSH DL <= 0.005 mIU/L QnOrde red By: Vernon Prado on 06-26-2025 TSH Qn 1.600 uIU/mL 0.300-4.200 [facility] Thyroid Stim Hormone (TSH)on 06-26-2025 TSH 1.600 uIU/mL Normal 0.300-4.200 [facility] Comment on above: Performed By: #### L 300.8000 #### [facility] [address] [place], [place], [address] Total proteinOrdered By: Gm Prado on 06-26-2025 Protein [Mass/Vol] 6.5 g/dL 5.9-8.4 [facility] White blood cell (WBC) count Ordered By: Vernon Prado on 06-26-2025 WBC (Bld) [#/Vol] 10.6 10*3/uL 4.4-11.0 [facility] 12 Lead EKGon 06-19-2025 12 Lead EKG [facility] [address] [place] [address] 12 Lead EKG 06/19/25 1856 MR#: [id number] Acct: [id number] Name: RAYA MCNAIR Rep #: [id number] : 1940 85 From: Kris Locke MD Attending Dr: Status: DEP ER Ordering Dr: Luis Velasquez DO Date: 06/19/25 Location: ED Sex: M N Admitted: Test Reason : REPEAT Blood Pressure : */* mmHG Vent. Rate : 89 BPM Atrial Rate : * BPM P-R Int : * ms QRS Dur : 74 ms QT Int : 380 ms P-R-T Axes : * 13 51 degrees QTcB Int : 462 ms Atrial fibrillation Abnormal ECG Confirmed by Kris Locke ([id number]), newspaper or periodical editor MALIK JAIME ([id number]) on 06/20/2025 1:53:51 PM Referred By: BRENT Confirmed By: Kris Locke 06/20/25 1353 Date Kris Locke MD CC: Dr. Luis Velasquez DO; Dao Raphael Jr., MD Signed Normal [facility] 12 Lead EKG [facility] [address] [place] [address] 12 Lead EKG 06/19/25 1627 MR#: [id number] Acct: [id number] Name: RAYA MCNAIR Rep #: [id number] : 1940 85 From: Kris Locke MD Attending Dr: Status: DEP ER Ordering Dr: Luis Velasquez DO Date: 06/19/25 Location: ED Sex: M N Admitted: Test Reason : CHEST PAIN Blood Pressure : */* mmHG Vent. Rate : 96 BPM Atrial Rate : * BPM P-R Int : * ms QRS Dur : 72 ms QT Int : 356 ms P-R-T Axes : * 10 70 degrees QTcB Int : 449 ms Atrial fibrillation Nonspecific ST abnormality Abnormal ECG Confirmed by Kris Locke ([id number]), newspaper or periodical editor MALIK JAIME ([id number]) on 06/20/2025 1:55:13 PM Referred By: Confirmed By: Kris Locke 06/20/25 1355 Date Kris Locke MD CC: Dr. Luis Velasquez DO; Dao Raphael Jr., MD Signed Normal [facility] Absolute lymphocyte countOrd ered By: Luis Velasquez on 06-19-2025 Lymphocytes Auto (Unsp spec) [#/Vol] 2.34 10*3/uL 0.83-4.51 [facility] Absolute neutrophil countOrd ered By: Luis Velasquez on 06-19-2025 Neutrophils (Bld) [#/Vol] 7.3 10*3/uL 2.0-7.7 [facility] Activated partial thrombopla stin time (aPTT) in platelet poor plasma by coagulation aOrdered By: Luis Velasquez on 06-19-2025 aPTT Coag (PPP) [Time] 26.9 s 24.1-36.2 [facility] Anion gap in Serum or Plasma Ordered By: Luis Velasquez on 06-19-2025 Anion gap [Moles/Vol] 15 mmol/L 5-15 [facility] Automated lymphocyte count a s percentage of total leukocytesOrdered By: Luis Velasquez on 06-19-2025 Lymphocytes/100 WBC Auto (Unsp spec) 21.7 % 19-41 [facility] BUN/creatinine ratioOrdered By: Luis Velasquez on 06-19-2025 Urea nitrogen/Creatinine [Mass ratio] 21.9 mg/mg High 10- [facility] Basic Metabolic Profile (BMP )on 06-19-2025 BUN/CRE 21.9 RATIO High - [facility] Comment on above: Performed By: #### L 499.0043 #### [facility] [address] [place], [address] Calcium [Mass/Vol] 9.2 mg/dL Normal 7.6-11.0 [facility] Comment on above: Performed By: #### L 499.0043 #### [facility] [address] [place], [address] Chloride [Moles/Vol] 103 mmol/L Normal 98-108 [facility] Comment on above: Performed By: #### L 499.0043 #### [facility] [address] [place], [address] CO2 [Moles/Vol] 22.2 mmol/L Normal 21.0-32.0 [facility] Comment on above: Performed By: #### L 499.0043 #### [facility] [address] [place], [address] Creatinine [Mass/Vol] 1.06 mg/dL Normal 0.70-1.20 [facility] Comment on above: Performed By: #### L 499.0043 #### [facility] [address] [place], [address] ECRCL 62.15 ml/min Normal 50-250 [facility] Comment on above: Performed By: #### L 499.0043 #### [facility] [address] [place], [address] GAP 15 Normal 5-15 [facility] Comment on above: Performed By: #### L 499.0043 #### [facility] [address] [place], [address] GFR/1.73 sq M.predicted among non-blacks MDRD (S/P/Bld) [Vol rate/Area] 69 mL/min/{1.73_m2} Normal >60 [facility] Comment on above: Result Comment: mL/m in/1.73m2 CKD-EPI Creatinine Equation (2020) Performed By: #### L 499.0043 #### [facility] [address] [place], [address] Glucose [Mass/Vol] 105 mg/dL High 70-99 [facility] Comment on above: Performed By: #### L 499.0043 #### [facility] [address] [place], [address] Potassium [Moles/Vol] 3.6 mmol/L Normal 3.3-5.1 [facility] Comment on above: Performed By: #### L 499.0043 #### [facility] [address] [place], [address] Sodium [Moles/Vol] 140 mmol/L Normal 133-145 [facility] Comment on above: Performed By: #### L 499.0043 #### [facility] [address] [place], [address] Urea nitrogen [Mass/Vol] 23 mg/dL High 4-19 [facility] Comment on above: Performed By: #### L 499.0043 #### [facility] [address] [place], [address] BUN Normal 4-19 [facility] Comment on above: Result Comment: LELE ENT DISCHARGED Performed By: #### L 501.4021, L500.2500, L100.0100 #### [facility] [address] [place], [address] BUN/CRE Normal 10-20 [facility] Comment on above: Result Comment: LELE ENT DISCHARGED Performed By: #### L 501.4021, L500.2500, L100.0100 #### [facility] [address] [place], [address] Calcium Normal 7.6-11.0 [facility] Comment on above: Result Comment: LELE ENT DISCHARGED Performed By: #### L 501.4021, L500.2500, L100.0100 #### [facility] [address] [place], [address] CL Normal 98-108 [facility] Comment on above: Result Comment: LELE ENT DISCHARGED Performed By: #### L 501.4021, L500.2500, L100.0100 #### [facility] [address] [place], [address] CO2 Normal 21.0-32.0 [facility] Comment on above: Result Comment: LELE ENT DISCHARGED Performed By: #### L 501.4021, L500.2500, L100.0100 #### [facility] [address] [place], [address] CREAT,SERUM Normal 0.70-1.20 [facility] Comment on above: Result Comment: LELE ENT DISCHARGED Performed By: #### L 501.4021, L500.2500, L100.0100 #### [facility] [address] [place], [address] eGFR Normal >60 [facility] Comment on above: Result Comment: LELE ENT DISCHARGED Performed By: #### L 501.4021, L500.2500, L100.0100 #### [facility] [address] [place], [address] GAP Normal 5-15 [facility] Comment on above: Result Comment: LELE ENT DISCHARGED Performed By: #### L 501.4021, L500.2500, L100.0100 #### [facility] [address] [place], [address] GLU Normal 70-99 [facility] Comment on above: Result Comment: LELE ENT DISCHARGED Performed By: #### L 501.4021, L500.2500, L100.0100 #### [facility] [address] [place], [address] Potassium Normal 3.3-5.1 [facility] Comment on above: Result Comment: LELE ENT DISCHARGED Performed By: #### L 501.4021, L500.2500, L100.0100 #### [facility] [address] [place], [address] Basic Metabolic Profile (BMP) Normal 133-145 [facility] Comment on above: Result Comment: LELE ENT DISCHARGED Performed By: #### L 501.4021, L500.2500, L100.0100 #### [facility] [address] [place], [address] Basophil percentageOrdered B y: Luis Eva on 06-19-2024 Basophils/100 WBC (Bld) 0.6 % 0-1 [facility] CBC W/Diff, Automatedon 05-30 Absolute Neut Normal 2.0-7.7 [facility] Comment on above: Result Comment: LELE ENT DISCHARGED Performed By: #### L 501.4021, L500.2500, L100.0100 #### [facility] [address] [place], [address] HCT Normal 40-54 [facility] Comment on above: Result Comment: LELE ENT DISCHARGED Performed By: #### L 501.4021, L500.2500, L100.0100 #### [facility] [address] [place], [address] HGB Normal 13.0-16.5 [facility] Comment on above: Result Comment: LELE ENT DISCHARGED Performed By: #### L 501.4021, L500.2500, L100.0100 #### [facility] [address] [place], [address] MCH Normal 27.0-32.0 [facility] Comment on above: Result Comment: LELE ENT DISCHARGED Performed By: #### L 501.4021, L500.2500, L100.0100 #### [facility] [address] [place], [address] MCHC Normal 32-36 [facility] Comment on above: Result Comment: LELE ENT DISCHARGED Performed By: #### L 501.4021, L500.2500, L100.0100 #### [facility] [address] [place], [address] MCV Normal 80-94 [facility] Comment on above: Result Comment: LELE ENT DISCHARGED Performed By: #### L 501.4021, L500.2500, L100.0100 #### [facility] [address] [place], [address] NEUT% Normal 47-70 [facility] Comment on above: Result Comment: LELE ENT DISCHARGED Performed By: #### L 501.4021, L500.2500, L100.0100 #### [facility] [address] [place], [address] PLT Normal 150-450 [facility] Comment on above: Result Comment: LELE ENT DISCHARGED Performed By: #### L 501.4021, L500.2500, L100.0100 #### [facility] [address] [place], [address] RBC Normal 4.6-6.2 [facility] Comment on above: Result Comment: LELE ENT DISCHARGED Performed By: #### L 501.4021, L500.2500, L100.0100 #### [facility] [address] [place], [address] RDW CV Normal 11.6-14.6 [facility] Comment on above: Result Comment: LELE ENT DISCHARGED Performed By: #### L 501.4021, L500.2500, L100.0100 #### [facility] [address] [place], [address] RDW SD Normal 35.1-43.9 [facility] Comment on above: Result Comment: LELE ENT DISCHARGED Performed By: #### L 501.4021, L500.2500, L100.0100 #### [facility] [address] [place], [address] WBC Normal 4.4-11.0 [facility] Comment on above: Result Comment: LELE ENT DISCHARGED Performed By: #### L 501.4021, L500.2500, L100.0100 #### [facility] [address] [place], [address] Absolute Lymph 2.34 X10 3/uL Normal 0.83-4.51 [facility] Comment on above: Performed By: #### L 501.4021, L500.2500, L100.0100 #### [facility] [address] [place], [address] Absolute Neut 7.3 X10 3/uL Normal 2.0-7.7 [facility] Comment on above: Performed By: #### L 501.4021, L500.2500, L100.0100 #### [facility] [address] [place], [address] Basophils/100 WBC (Bld) 0.6 % Normal 0-1 [facility] Comment on above: Performed By: #### L 501.4021, L500.2500, L100.0100 #### [facility] [address] [place], [address] Eosinophils/100 WBC (Bld) 2.2 % Normal 0-5 [facility] Comment on above: Performed By: #### L 501.4021, L500.2500, L100.0100 #### [facility] [address] [place], [address] Erythrocyte distribution width (RBC) [Ratio] 13.6 % Normal 11.6-14.6 [facility] Comment on above: Performed By: #### L 501.4021, L500.2500, L100.0100 #### [facility] [address] [place], [address] Hematocrit (Bld) [Volume fraction] 40.5 % Normal 40-54 [facility] Comment on above: Performed By: #### L 501.4021, L500.2500, L100.0100 #### [facility] [address] [place], [address] Hemoglobin (Bld) [Mass/Vol] 13.4 g/dL Normal 13.0-16.5 [facility] Comment on above: Performed By: #### L 501.4021, L500.2500, L100.0100 #### [facility] [address] [place], [address] IG% 0.400 Normal 0.0-0.9 [facility] Comment on above: Result Comment: IG% - Immature Granulocytes (promyelocytes, myelocytes and metamyelocytes) > 1% indicates that a LEFT SHIFT is Present. Performed By: #### L 501.4021, L500.2500, L100.0100 #### [facility] [address] [place], [address] Lymphocytes/100 WBC (Bld) 21.7 % Normal 19-41 [facility] Comment on above: Performed By: #### L 501.4021, L500.2500, L100.0100 #### [facility] [address] [place], [address] MCH (RBC) [Entitic mass] 29.9 pg Normal 27.0-32.0 [facility] Comment on above: Performed By: #### L 501.4021, L500.2500, L100.0100 #### [facility] [address] [place], [address] MCHC (RBC) [Mass/Vol] 33.1 g/dL Normal 32-36 [facility] Comment on above: Performed By: #### L 501.4021, L500.2500, L100.0100 #### [facility] [address] [place], [address] MCV (RBC) [Entitic vol] 90.4 fL Normal 80-94 [facility] Comment on above: Performed By: #### L 501.4021, L500.2500, L100.0100 #### [facility] [address] [place], [address] Monocytes/100 WBC (Bld) 7.6 % Normal 0-10 [facility] Comment on above: Performed By: #### L 501.4021, L500.2500, L100.0100 #### [facility] [address] [place], [address] Neutrophils/100 WBC (Bld) 67.5 % Normal 47-70 [facility] Comment on above: Performed By: #### L 501.4021, L500.2500, L100.0100 #### [facility] [address] [place], [address] Nucleated RBC (Bld) [#/Vol] 0 10*3/uL Normal 0-5 [facility] Comment on above: Performed By: #### L 501.4021, L500.2500, L100.0100 #### [facility] [address] [place], [address] Platelet mean volume (Bld) [Entitic vol] 9.9 fL Normal 6.2-12.0 [facility] Comment on above: Performed By: #### L 501.4021, L500.2500, L100.0100 #### [facility] [facility] [address] [place], [address] Platelets (Bld) [#/Vol] 313 10*3/uL Normal 150-450 [facility] Comment on above: Performed By: #### L 501.4021, L500.2500, L100.0100 #### [facility] [address] [place], [address] RBC (Bld) [#/Vol] 4.48 10*6/uL Low 4.6-6.2 [facility] Comment on above: Performed By: #### L 501.4021, L500.2500, L100.0100 #### [facility] [address] [place], [address] RDW SD 45.4 fl High 35.1-43.9 [facility] Comment on above: Performed By: #### L 501.4021, L500.2500, L100.0100 #### [facility] [address] [place], [address] WBC (Bld) [#/Vol] 10.8 10*3/uL Normal 4.4-11.0 [facility] Comment on above: Performed By: #### L 501.4021, L500.2500, L100.0100 #### [facility] [address] [place], [address] Carbon dioxide, total [Moles /volume] in Central venous bloodOrdered By: Luis Velasquez on 06-19-2025 CO2 [Moles/Vol] 22.2 mmol/L 21.0-32.0 [facility] Chest 1 View (Portable)on Chest 1 View (Portable) [facility] Imaging Services [address] [place] [address] Chest 1 View (Portable) MR#: [id number] Acct: [id number] Name: RAYA MCNAIR Rep #: [id number] : 1940 M 85 From: Uday Edmond MD PCP: Dao Raphael Jr., MD Status: REG ER Study: Chest 1 View (Portable) Date of Exam: 06/19/25 Exam# [id number] Ordering Dr: Luis Velasquez DO PROCEDURE: CHEST 1 VIEW (PORTABLE) 06/19/2025 REASON FOR EXAM: PALPITATIONS TECHNIQUE: Frontal view of the chest. COMPARISON: 06/14/2025 FINDINGS: Lungs/Pleura: Clear. No pneumothorax or pleural effusion. Heart/Mediastinum: Mild cardiomegaly. No vascular congestion. Bones/Soft tissues: Degenerative changes of the spine and bilateral AC joints. RAD/Chest 1 View (Portable) IMPRESSION: Cardiomegaly. No acute pulmonary disease. Reading Location: [facility] CC: Dr. Luis Velasquez DO; Dao Raphael Jr., MD Carpenter: Signed Normal [facility] Chloride assayOrdered By: Mary Velasquez on 06-19-2025 Chloride [Moles/Vol] 103 mmol/L 98-108 [facility] Emergency Department Summary on 06-19-2025 Emergency Department Summary [facility] Medical Records Department [address] [place] [id number] Emergency Department Summary 06/19/25 MR#: [id number] Acct: [id number] Name: RAYA MCNAIR CANDY Rep #: [id number] : 1940 85 From: Luis Velasquez DO PCP: Dao Raphael Jr., MD Status:DEP ER Location: ED HPI History of Present Illness Chief Complaint: Palpitations [facility] Medical History Hyperlipidemia Skin cancer Pneumonia Heart disease Gastrointestinal problem Gall stones Cataract Bone fracture Allergies Type 2 diabetes mellitus Hypertension Celiac disease Anxiety Coronary artery disease Hypertension Atherosclerotic heart disease of [place] coronary artery without angina pectoris Home Medications ???Medication ???Instructions ???Recorded ???Last Taken ???Type aspirin 81 mg tablet,delayed 81 mg PO DAILY@0800 heart health 0 03/18/21 04/03/21 History release cholecalciferol (vitamin D3) 50 4,000 unit PO DAILY SUPPLEMENT 03/18/21 History mcg (2,000 unit) capsule vit C 250 mg-vit E 90 mg-zinc 40 1 cap PO BID [facility] 03/18/21 0 03/18/21 History mg-copper 1 [id number] capsule atorvastatin 40 mg tablet 40 mg PO QHS #90 tabs 04/11/21 Unk nown Rx isosorbide mononitrate 30 mg 30 mg PO DAILY #90 tabs 04/11/21 U nknown Rx tablet,extended release 24 hr vitamin E mixed 400 unit capsule 400 unit PO DAILY 02/16/22 Unknown History metformin 500 mg tablet,extended 500 mg PO BID 08/20/22 Unknown His tory release 24 hr diphenhydramine HCl 25 mg capsule 25 mg PO QHS PRN 06/09/23 Unknown History (Benadryl) cetirizine 10 mg tablet 10 mg PO DAILY 10/19/23 Unknown Hi story montelukast 10 mg tablet 10 mg PO QHS 10/19/23 Unknown Hist ory valsartan 320 mg tablet 320 mg PO DAILY 10/19/23 Unknown H istory hydrochlorothiazide 25 mg tablet 25 mg PO Q OTHER DAY 07/19/24 Unkn own History amlodipine 10 mg tablet 10 mg PO DAILY 12/26/24 Unknown Hi story metoprolol succinate 50 mg 100 mg PO DAILY 12/26/24 Unknown H istory tablet,extended release 24 hr tamsulosin 0.4 mg capsule 0.4 mg PO QDAY 12/26/24 Unknown Hi story famotidine 20 mg tablet 20 mg PO DAILY #90 tabs 01/15/25 U nknown Rx dulaglutide 3 mg/0.5 mL 3 mg (0.5 mL) subcut QWEEK #2 mL 0 01/17/25 Unknown Rx subcutaneous pen injector (Trulicity) apixaban 5 mg tablet (Eliquis) 5 mg PO BID 30 days #60 tabs 06/19 Unknown Rx diltiazem HCl 120 mg 120 mg PO QHS 30 days #30 caps Unknown Rx capsule,extended release 24 hr (Cardizem CD) Allergy/AdvReac Type Severity Reaction Status Date / Time gluten AdvReac upset Verified 06/19/25 15:49 stomach/diarrhea lactose AdvReac upset Verified 06/19/25 15:49 stomach/diarrhea Family History Other Asthma Cancer Diabetes H/O transfusion of whole blood Heart disease Hypertension Liver disease Melanoma Myocardial infarction Skin cancer Surgical History Hx of melanoma excision History of cholecystectomy Presence of coronary angioplasty implant and graft ( 04/03/21) Presence of stent in coronary artery ( 04/03/21) Social History Smoking Status: Former smoker how long ago did patient quit smokin years ago alcohol intake: current alcohol intake frequency: holidays/special occasions only substance use type: does not use caffeine: Yes Type: coffee Number of servings: 2 and tea Number of servings: 1 what type of physical activity do you participate in: other details: cardio frequency: 3-4 times per week EXAM Physical Exam Const Vital Signs: 06/19/25 15:47 06/19/25 16:45 06/19/25 17:00 Temperature 97.8 F Temperature Source Oral Pulse Rate 102 H 94 85 Respiratory Rate 20 H 15 16 Blood Pressure 164/96 H 128/73 H 114/69 Blood Pressure Mean 118 88 82 Pulse Ox 97 98 99 Oxygen Delivery Method Room Air 06/19/25 17:01 06/19/25 17:15 06/19/25 17:51 Temperature Temperature Source Pulse Rate 83 Respiratory Rate 16 Blood Pressure 127/72 H 93/68 Blood Pressure Mean 90 76 Pulse Ox 98 Oxygen Delivery Method Room Air 06/19/25 18:00 06/19/25 19:00 06/19/25 19:43 Temperature 98.2 F Temperature Source Pulse Rate 89 83 81 Respiratory Rate 15 13 14 Blood Pressure 125/76 H 140/83 H 140/75 H Blood Pressure Mean 90 102 96 Pulse Ox 99 98 99 Oxygen Delivery Method MDM MDM MDM Narrative Medical decision making narrative: HISTORY OF PRESENT ILLNESS: Chief complaint: Palpitation 85-year-old male history of hyperlipidemia, Cr (more content not included)... Normal [facility] Eosinophil percentageOrdered By: Luis Velasquez on 06-19-2025 Eosinophils/100 WBC (Bld) 2.2 % 0-5 [facility] Erythrocyte distribution wid th ratioOrdered By: Luis Velasquez on 06-19-2025 Erythrocyte distribution width (RBC) [Ratio] 13.6 % 11.6-14.6 [facility] Erythrocyte distribution wid th standard deviationOrdered By: Luis Velasquez on 06-19-2025 Erythrocyte distribution width (RBC) [Ratio] 45.4 fl High 35.1-43.9 [facility] Free T3on 06-19-2025 Free T3 [Mass/Vol] 2.8 pg/mL Normal 2.18-3.98 [facility] Comment on above: Performed By: #### L 501.4021, L500.2500, L100.0100 #### [facility] [address] [place], [address] Free [id number] By: Luis amanda on 06-19-2025 Free T3 [Mass/Vol] 2.8 pg/mL 2.18-3.98 [facility] Glomerular filtration rate ( GFR) estimation/1.73 sq m using serum, plasma, or whole bOrdered By: Luis Velasquez on 06-19-2025 GFR/1.73 sq M.predicted among non-blacks MDRD (S/P/Bld) [Vol rate/Area] 69 mL/min/{1.73_m2} >60 [facility] Comment on above: mL/min/1.73m2 CKD-EP I Creatinine Equation (2020) Hematocrit Auto (Bld) [Volum e fraction]Ordered By: Luis Velasquez on 06-19-2025 Hematocrit (Bld) [Volume fraction] 40.5 % 40-54 [facility] Hemoglobin measurementOrdere d By: Luis Velasquez on 06-19-2025 Hemoglobin (Bld) [Mass/Vol] 13.4 g/dL 13.0-16.5 [facility] Immature granulocytes/100 WB C Auto (Bld)Ordered By: Luis Velasquez on 06-19-2025 Immature granulocytes/100 WBC (Bld) 0.400 % 0.0-0.9 [facility] Comment on above: IG% - Immature Granu locytes (promyelocytes, myelocytes and metamyelocytes) > 1% indicates that a LEFT SHIFT is Present. International normalized rat io (INR) calculationOrdered By: Luis Velasquez on 06-19-2025 INR Coag (Bld) [Relative time] 1.2 {INR} [facility] L501.4021on 06-19-2025 Trop T High Sen 15 ng/L Normal <=22 [facility] Comment on above: Performed By: #### L 501.4021, L500.2500, L100.0100 #### [facility] [address] [place], [address] MCV (mean corpuscular volume ) determinationOrdered By: Luis Velasquez on 06-19-2025 MCV (RBC) [Entitic vol] 90.4 fL 80-94 [facility] Mean corpuscular hemoglobin (MCH) determinationOrdered By: Luis Velasquez on 06-19-2025 MCH (RBC) [Entitic mass] 29.9 pg 27.0-32.0 [facility] Mean corpuscular hemoglobin concentration (MCHC) determinationOrdered By: Luis Velasquez on 06-19-2025 MCHC (RBC) [Mass/Vol] 33.1 g/dL 32-36 [facility] Mean platelet volume determi nationOrdered By: Luis Velasquez on 06-19-2025 Platelet mean volume (Bld) [Entitic vol] 9.9 fL 6.2-12.0 [facility] Monocyte percentageOrdered B y: Luis Velasquez on 06-19-2025 Monocytes/100 WBC (Bld) 7.6 % 0-10 [facility] Neutrophil percentageOrdered By: Luis Velasquez on 06-19-2025 Neutrophils/100 WBC (Bld) 67.5 % 47-70 [facility] Nucleated red blood cell per centageOrdered By: Luis Velasquez on 06-19-2025 Nucleated RBC/100 WBC (Bld) [Ratio] 0 % 0-5 [facility] Partial Thromboplast Timeon 06-19-2025 aPTT Coag (Bld) [Time] 26.9 s Normal 24.1-36.2 [facility] Comment on above: Performed By: #### L 300.8000 #### [facility] [address] [place], [address] Platelet countOrdered By: Mary Velasquez on 06-19-2025 Platelets (Bld) [#/Vol] 313 10*3/uL 150-450 [facility] Potassium measurement (mass/ volume)Ordered By: Luis Velasquez on 06-19-2025 Potassium (Unsp spec) [Mass/Vol] 3.6 mmol/L 3.3-5.1 [facility] Prothrombin Time w/INRon INR Coag (PPP) [Relative time] 1.2 {INR} Normal [facility] Comment on above: Performed By: #### L 300.8000 #### [facility] [address] [place], [address] PT Coag (PPP) [Time] 15.5 s High 11.7-14.9 [facility] Comment on above: Performed By: #### L 300.8000 #### [facility] [address] [place], [address] Prothrombin timeOrdered By: Luis Velasquez on 06-19-2025 PT Coag (PPP) [Time] 15.5 s High 11.7-14.9 [facility] RBC Auto (Bld) [#/Vol]Ordere d By: Luis Velasquez on 06-19-2025 RBC (Bld) [#/Vol] 4.48 10*6/uL Low 4.6-6.2 [facility] Serum creatinine measurement (mass/volume)Ordered By: Luis Velasquez on 06-19-2025 Creatinine [Mass/Vol] 1.06 mg/dL 0.70-1.20 [facility] Serum glucose measurement (m ass/volume)Ordered By: Luis Velasquez on 06-19-2025 Glucose [Mass/Vol] 105 mg/dL High 70-99 [facility] Serum or plasma calcium nii urement (mass/volume)Ordered By: Luis Velasquez on 06-19-2025 Calcium [Mass/Vol] 9.2 mg/dL 7.6-11.0 [facility] Serum or plasma urea nitroge n measurement (mass/volume)Ordered By: Luis Velasquez on 06-19-2025 Urea nitrogen [Mass/Vol] 23 mg/dL High 4-19 [facility] Sodium levelOrdered By: Heather Velasquez on 06-19-2025 Sodium [Moles/Vol] 140 mmol/L 133-145 [facility] T4 Free Directon 06-19-2025 T4 FREE DIRECT 1.50 ng/dL High 0.76-1.46 [facility] Comment on above: Performed By: #### L 501.4021, L500.2500, L100.0100 #### [facility] [address] [place], [address] T4 freeOrdered By: Luis amanda on 06-19-2025 Free T4 [Mass/Vol] 1.50 ng/dL High 0.76-1.46 [facility] TSH DL <= 0.005 mIU/L QnOrde red By: Luis Velasquez on 06-19-2025 TSH Qn 1.180 uIU/mL 0.300-4.200 [facility] Thyroid Stim Hormone (TSH)on 06-19-2025 TSH 1.180 uIU/mL Normal 0.300-4.200 [facility] Comment on above: Performed By: #### L 501.4021, L500.2500, L100.0100 #### [facility] [address] [place], [address] Troponin T HS 2 HRon 025 Trop T High Sen 13 ng/L Normal <=22 [facility] Comment on above: Performed By: #### L 501.4021, L500.2500, L100.0100 #### [facility] [address] [place], [address] Trop T High Sen Normal <=22 [facility] Comment on above: Result Comment: LELE ENT DISCHARGED Performed By: #### L 499.0042 #### [facility] [address] [place], [address] Troponin T HS 4 HRon 025 Trop T High Sen Normal <=22 [facility] Comment on above: Result Comment: Canc elled via OM: Order cancelled - Patient discharged Performed By: #### L 499.0043 #### [facility] [address] [place], [address] Trop T High Sen Normal <=22 [facility] Comment on above: Result Comment: Canc elled via OM: Order cancelled - Patient discharged Performed By: #### L 300.8000 #### [facility] [address] [place], [address] Troponin T.cardiac [Mass/vol ume] in Serum or Plasma by High sensitivity methodOrdered By: Luis Velasquez on 06-19-2025 Troponin T.cardiac High sensitivity method [Mass/Vol] 13 ng/L <22 [facility] Troponin T.cardiac High sensitivity method [Mass/Vol] 15 ng/L <22 [facility] Comment on above: Delta: 13 on 5-1800 White blood cell (WBC) count Ordered By: Luis Velasquez on 06-19-2025 WBC (Bld) [#/Vol] 10.8 10*3/uL 4.4-11.0 [facility] Absolute lymphocyte countOrd ered By: ED PROVIDER on 06-14-2025 Lymphocytes Auto (Unsp spec) [#/Vol] 1.26 10*3/uL 0.83-4.51 [facility] Absolute neutrophil countOrd ered By: ED PROVIDER on 06-14-2025 Neutrophils (Bld) [#/Vol] 11.3 10*3/uL High 2.0-7.7 [facility] Anion gap in Serum or Plasma Ordered By: ED PROVIDER on 06-14-2025 Anion gap [Moles/Vol] 11 mmol/L 5-15 [facility] Automated lymphocyte count a s percentage of total leukocytesOrdered By: ED PROVIDER on 06-14-2025 Lymphocytes/100 WBC Auto (Unsp spec) 8.7 % Low 19-41 [facility] BUN/creatinine ratioOrdered By: ED PROVIDER on 06-14-2025 Urea nitrogen/Creatinine [Mass ratio] 22.1 mg/mg High 10-20 [facility] Basic Metabolic Profile (BMP )on 06-14-2025 BUN/CRE 22.1 RATIO High 10-20 [facility] Comment on above: Performed By: #### L 501.4021, L500.2500, L100.0100 #### [facility] [address] [place], [address] ECRCL 69.72 ml/min Normal 50-250 [facility] Comment on above: Performed By: #### L 501.4021, L500.2500, L100.0100 #### [facility] [address] [place], [address] GAP 11 Normal 5-15 [facility] Comment on above: Performed By: #### L 501.4021, L500.2500, L100.0100 #### [facility] [address] [place], [address] Potassium [Moles/Vol] 3.9 mmol/L Normal 3.3-5.1 [facility] Comment on above: Performed By: #### L 501.4021, L500.2500, L100.0100 #### [facility] [address] [place], [address] Basophil percentageOrdered B y: ED PROVIDER on 06-14-2025 Basophils/100 WBC (Bld) 0.3 % 0-1 [facility] CBC W/Diff, Automatedon 05-29 Absolute Lymph 1.26 X10 3/uL Normal 0.83-4.51 [facility] Comment on above: Performed By: #### L 501.4021, L500.2500, L100.0100 #### [facility] [address] [place], [address] Absolute Neut 11.3 X10 3/uL High 2.0-7.7 [facility] Comment on above: Performed By: #### L 501.4021, L500.2500, L100.0100 #### [facility] [address] [place], [address] Basophils/100 WBC (Bld) 0.3 % Normal 0-1 [facility] Comment on above: Performed By: #### L 501.4021, L500.2500, L100.0100 #### [facility] [address] [place], [address] Eosinophils/100 WBC (Bld) 0.1 % Normal 0-5 [facility] Comment on above: Performed By: #### L 501.4021, L500.2500, L100.0100 #### [facility] [address] [place], [address] Erythrocyte distribution width (RBC) [Ratio] 13.7 % Normal 11.6-14.6 [facility] Comment on above: Performed By: #### L 501.4021, L500.2500, L100.0100 #### [facility] [address] [place], [address] Hematocrit (Bld) [Volume fraction] 41.6 % Normal 40-54 [facility] Comment on above: Performed By: #### L 501.4021, L500.2500, L100.0100 #### [facility] [address] [place], [address] Hemoglobin (Bld) [Mass/Vol] 13.7 g/dL Normal 13.0-16.5 [facility] Comment on above: Performed By: #### L 501.4021, L500.2500, L100.0100 #### [facility] [address] [place], [address] IG% 0.500 Normal 0.0-0.9 [facility] Comment on above: Result Comment: IG% - Immature Granulocytes (promyelocytes, myelocytes and metamyelocytes) > 1% indicates that a LEFT SHIFT is Present. Performed By: #### L 501.4021, L500.2500, L100.0100 #### [facility] [address] [place], [address] Lymphocytes/100 WBC (Bld) 8.7 % Low 19-41 [facility] Comment on above: Performed By: #### L 501.4021, L500.2500, L100.0100 #### [facility] [address] [place], [address] MCH (RBC) [Entitic mass] 29.5 pg Normal 27.0-32.0 [facility] Comment on above: Performed By: #### L 501.4021, L500.2500, L100.0100 #### [facility] [address] [place], [address] MCHC (RBC) [Mass/Vol] 32.9 g/dL Normal 32-36 [facility] Comment on above: Performed By: #### L 501.4021, L500.2500, L100.0100 #### [facility] [address] [place], [address] MCV (RBC) [Entitic vol] 89.7 fL Normal 80-94 [facility] Comment on above: Performed By: #### L 501.4021, L500.2500, L100.0100 #### [facility] [address] [place], [address] Monocytes/100 WBC (Bld) 12.6 % High 0-10 [facility] Comment on above: Performed By: #### L 501.4021, L500.2500, L100.0100 #### [facility] [address] [place], [address] Neutrophils/100 WBC (Bld) 77.8 % High 47-70 [facility] Comment on above: Performed By: #### L 501.4021, L500.2500, L100.0100 #### [facility] [address] [place], [address] Nucleated RBC (Bld) [#/Vol] 0 10*3/uL Normal 0-5 [facility] Comment on above: Performed By: #### L 501.4021, L500.2500, L100.0100 #### [facility] [address] [place], [address] Platelet mean volume (Bld) [Entitic vol] 10.3 fL Normal 6.2-12.0 [facility] Comment on above: Performed By: #### L 501.4021, L500.2500, L100.0100 #### [facility] [address] [place], [address] Platelets (Bld) [#/Vol] 264 10*3/uL Normal 150-450 [facility] Comment on above: Performed By: #### L 501.4021, L500.2500, L100.0100 #### [facility] [address] [place], [address] RBC (Bld) [#/Vol] 4.64 10*6/uL Normal 4.6-6.2 [facility] Comment on above: Performed By: #### L 501.4021, L500.2500, L100.0100 #### [facility] [address] [place], [address] RDW SD 44.8 fl High 35.1-43.9 [facility] Comment on above: Performed By: #### L 501.4021, L500.2500, L100.0100 #### [facility] [address] [place], [place], [address] WBC (Bld) [#/Vol] 14.6 10*3/uL High 4.4-11.0 [facility] Comment on above: Performed By: #### L 501.4021, L500.2500, L100.0100 #### [facility] [address] [place], [address] CNOVon 06-14-2025 CNOV Office Visit ([facility]OUCA) -------- RAYA MCNAIR ([id number]) 1940 M Date Time Provider Department 06/14/25 3:30 PM KRIS CROUCH During your visit today, we recorded the following information about you: Temperature Pulse Respiration Blood pressure 99.9 degrees 98/minute 24/minute 138/68 Weight 104 kg Kris Crouch MD 06/14/2025 4:40 PM Signed [facility] Raya Mcnair is a 85 year old male. Patient [...] type - ICD9: 786.50, ICD10: R07.9 Kris Crouch MD History and Record Review External record(s) reviewed: prior outpatient record. Systemic symptoms present included: DYSPNEA Differential Diagnoses - cardiac ischemia is more likely for the following reason(s): St elevations, suggested by HANDP and consistent with imaging Management Management of the patient was discussed with:ED Physician or Supervisory/Collaboratin g Physician Discussion with ED Physician or Supervisory/Collaboratin g Physician included: discussed with [facility] pt refuses transport will await arrival for immediate eval Disposition The patient was discharged. Procedures Kris Crouch MD 06/14/2025 4:36 PM Signed YOU WILL NEED AN EVALUATION IN THE [facility] NOW Allergies As of Date: 06/14/2025 [...] pain, unspecified type [R07.9] Order(s):COVID-19 MOLECULAR (POC) [1764383] Order #: [id number]. #:[id number]-LAB INFLUENZA AANDB MOLECULAR (POC) [6206203] Order #: [id number]. #:[id number]-LAB XR CHEST 2V FRONTAL/LAT [7841553] Order #: [id number]. #:[id number] ECG COMPLETE [ECG01] Order #: [id number]. #:[id number] Prescriptions as of 06/14/2025 - tamsulosin (FLOMAX) [...] WEEK - triamcinolone acetonide (KENALOG) 0.1 % ointm (more content not included)... Normal [facility] COVID-19 MOLECULAR (POC)on 0 06-14-2025 Procedural Control Valid [facility] SARS-CoV-2 (COVID-19) RNA MARTITA+probe Ql (Unsp spec) Negative Negative [facility] Comment on above: Location:[facility] [place], [address] [facility], [place], [address] [facility] Carbon dioxide, total [Moles /volume] in Central venous bloodOrdered By: ED PROVIDER on 06-14-2025 CO2 [Moles/Vol] 23.9 mmol/L Normal 21.0-32.0 [facility] Comment on above: Performed By: #### L 501.4021, L500.2500, L100.0100 #### [facility] [address] [place], [address] Chest 1 View (Portable)on Chest 1 View (Portable) [facility] Imaging Services [address] [place] [address] Chest 1 View (Portable) MR#: [id number] Acct: [id number] Name: RAYA MCNAIR Rep #: [id number] : 1940 M 85 From: Theo Crowell MD PCP: Status: PRE ER Study: Chest 1 View (Portable) Date of Exam: 06/14/25 Exam# [id number] Ordering Dr: Joby,Macho P. PROCEDURE: CHEST 1 VIEW (PORTABLE) 06/14/2025 REASON FOR EXAM: CHEST PAIN TECHNIQUE: Frontal view of the chest. COMPARISON: None FINDINGS: Hardware: None Heart: Not significantly enlarged Lungs: No focal consolidation or pleural effusion. Bones: Degenerative changes are identified within the thoracic spine. RAD/Chest 1 View (Portable) IMPRESSION: No acute cardiopulmonary abnormality. Reading Location: [id number] CC: ED PHYSICIAN PROVIDER Carpenter: Signed Normal [facility] Chloride assayOrdered By: ED PROVIDER on 06-14-2025 Chloride [Moles/Vol] 103 mmol/L Normal 98-108 [facility] Comment on above: Performed By: #### L 501.4021, L500.2500, L100.0100 #### [facility] [address] [place], [address] D-Dimer Quantitative (DVT/PE )on 06-14-2025 D-DIMER QUANT 0.31 FEU/ug/m Normal 0.27-0.49 [facility] Comment on above: Result Comment: NORM AL D-Dimer level (<0.50) indicates no DVT or PE. Performed By: #### L 300.8000 #### [facility] [address] [place], [address] Emergency Department Summary on 06-14-2025 Emergency Department Summary [facility] Medical Records Department [address] [place] [address] Emergency Department Summary 06/14/25 MR#: [id number] Acct: [id number] Name: RAYA MCNAIR Rep #: [id number] : 1940 85 From: Jennifer CONWAY PCP: Care Physician,No Primary Status:DEP ER Location: ED HPI History of Present Illness Chief Complaint: Chest Pain Narrative Narrative: 85-year-old male with PMH of HTN, HLD, CAD with 2 stents, DM2 presents with chest pain. He states he had postnasal drip all summer. Yesterday he developed midsternal chest pain when taking a deep breath. Went to his primary care office today and had negative COVID/flu testing and a negative chest x-ray. EKG showed possible ST changes so he was sent in for evaluation. He follows with [facility] and had 2 stents placed in 2020. He had a stress test in December 2024 that was normal. He states he was asymptomatic but it was ordered because it had been a long time since he had one done. He takes Plavix. He denies smoking history. He denies history of DVT/PE or risk factors. [facility] Medical History Hyperlipidemia Skin cancer Pneumonia Heart disease Gastrointestinal problem Gall stones Cataract Bone fracture Allergies Type 2 diabetes mellitus Hypertension Celiac disease Anxiety Coronary artery disease Hypertension Atherosclerotic heart disease of [place] coronary artery without angina pectoris Home Medications ???Medication ???Instructions ???Recorded ???Last Taken ???Type aspirin 81 mg tablet,delayed 81 mg PO DAILY@0800 heart health 0 03/18/21 04/03/21 History release cholecalciferol (vitamin D3) 50 4,000 unit PO DAILY SUPPLEMENT 03/18/21 History mcg (2,000 unit) capsule vit C 250 mg-vit E 90 mg-zinc 40 1 cap PO BID [facility] 03/18/21 0 03/18/21 History mg-copper 1 [id number]-ukenic-cnbfch capsule atorvastatin 40 mg tablet 40 mg PO QHS #90 tabs 04/11/21 Unk nown Rx isosorbide mononitrate 30 mg 30 mg PO DAILY #90 tabs 04/11/21 U nknown Rx tablet,extended release 24 hr vitamin E mixed 400 unit capsule 400 unit PO DAILY 02/16/22 Unknown History metformin 500 mg tablet,extended 500 mg PO BID 08/20/22 Unknown His tory release 24 hr diphenhydramine HCl 25 mg capsule 25 mg PO QHS PRN 06/09/23 Unknown History (Benadryl) cetirizine 10 mg tablet 10 mg PO DAILY 10/19/23 Unknown Hi story montelukast 10 mg tablet 10 mg PO QHS 10/19/23 Unknown Hist ory valsartan 320 mg tablet 320 mg PO DAILY 10/19/23 Unknown H istory hydrochlorothiazide 25 mg tablet 25 mg PO Q OTHER DAY 07/19/24 Unkn own History amlodipine 10 mg tablet 10 mg PO DAILY 12/26/24 Unknown Hi story metoprolol succinate 50 mg 100 mg PO DAILY 12/26/24 Unknown H istory tablet,extended release 24 hr tamsulosin 0.4 mg capsule 0.4 mg PO QDAY 12/26/24 Unknown Hi story famotidine 20 mg tablet 20 mg PO DAILY #90 tabs 01/15/25 U nknown Rx dulaglutide 3 mg/0.5 mL 3 mg (0.5 mL) subcut QWEEK #2 mL 0 01/17/25 Unknown Rx subcutaneous pen injector (Trulicity) Allergy/AdvReac Type Severity Reaction Status Date / Time gluten AdvReac upset Verified 06/14/25 16:47 stomach/diarrhea lactose AdvReac upset Verified 06/14/25 16:47 stomach/diarrhea Family History Other Asthma Cancer Diabetes H/O transfusion of whole blood Heart disease Hypertension Liver disease Melanoma Myocardial infarction Skin cancer Surgical History Hx of melanoma excision History of cholecystectomy Presence of coronary angioplasty implant and graft ( 04/03/21) Presence of stent in coronary artery ( 04/03/21) Social History Smoking Status: Former smoker how long ago did patient quit smokin years ago alcohol intake: current alcohol intake frequency: holidays/special occasions only substance use type: does not use caffeine: Yes Type: coffee Number of servings: 2 and tea Number of servings: 1 what type of physical activity do you participate in: other details: cardio frequency: 3-4 times per week ROS ROS ED ROS Narrative Constitutional: Negative for fever, chills, malaise. CVS: Positive for chest pain. No syncope or palpitations. Respiratory: Negative for shortness of breath, cough. GI: Negative for abdominal pain, nausea, vomiting. EXAM Physical Exam Narrative Exam Narrative: CONST: Patient sitting in no acute distress. EYES: Normal inspection. NECK: Normal inspection. RESP: No respiratory distress, CTAB. CVS: Regular rate and rhythm, no murmur, no gallop. ABD: Soft and nontender, no guarding or rebound, no (more content not included)... Normal [facility] Eosinophil percentageOrdered By: ED PROVIDER on 06-14-2025 Eosinophils/100 WBC (Bld) 0.1 % 0-5 [facility] Erythrocyte distribution wid th ratioOrdered By: ED PROVIDER on 06-14-2025 Erythrocyte distribution width (RBC) [Ratio] 13.7 % 11.6-14.6 [facility] Erythrocyte distribution wid th standard deviationOrdered By: ED PROVIDER on 06-14-2025 Erythrocyte distribution width (RBC) [Ratio] 44.8 fl High 35.1-43.9 [facility] Glomerular filtration rate ( GFR) estimation/1.73 sq m using serum, plasma, or whole bOrdered By: ED PROVIDER on 06-14-2025 GFR/1.73 sq M.predicted among non-blacks MDRD (S/P/Bld) [Vol rate/Area] 82 mL/min/{1.73_m2} Normal >60 [facility] Comment on above: mL/min/1.73m2 CKD-EP I Creatinine Equation (2020) Result Comment: mL/m in/1.73m2 CKD-EPI Creatinine Equation (2020) Performed By: #### L 501.4021, L500.2500, L100.0100 #### [facility] [address] [place], [address] Hematocrit Auto (Bld) [Volum e fraction]Ordered By: ED PROVIDER on 06-14-2025 Hematocrit (Bld) [Volume fraction] 41.6 % 40-54 [facility] Hemoglobin measurementOrdere d By: ED PROVIDER on 06-14-2025 Hemoglobin (Bld) [Mass/Vol] 13.7 g/dL 13.0-16.5 [facility] INFLUENZA A&B MOLECULAR (POC )on 06-14-2025 Flu A (POCT) Negative Negative [facility] Flu B (POCT) Negative Negative [facility] Procedural Control Valid [facility] Location:[facility], [address] [facility], [place], [address] [facility] POINT [facility] Immature granulocytes/100 WB C Auto (Bld)Ordered By: ED PROVIDER on 06-14-2025 Immature granulocytes/100 WBC (Bld) 0.500 % 0.0-0.9 [facility] Comment on above: IG% - Immature Granu locytes (promyelocytes, myelocytes and metamyelocytes) > 1% indicates that a LEFT SHIFT is Present. L499.0042on 06-14-2025 Trop T High Sen 12 ng/L Normal <=22 [facility] Comment on above: Performed By: #### L 499.0042 #### [facility] [address] [place], [address] L499.0043on 06-14-2025 Trop T High Sen Normal <=22 [facility] Comment on above: Result Comment: LELE ENT DISCHARGED. SPECIMEN NOT RECEIVED. Performed By: #### L 501.4021, L500.2500, L100.0100 #### [facility] [address] [place], [address] L501.4021on 06-14-2025 Trop T High Sen 13 ng/L Normal <=22 [facility] Comment on above: Performed By: #### L 501.4021, L500.2500, L100.0100 #### [facility] [address] [place], [address] MCV (mean corpuscular volume ) determinationOrdered By: ED PROVIDER on 06-14-2025 MCV (RBC) [Entitic vol] 89.7 fL 80-94 [facility] Mean corpuscular hemoglobin (MCH) determinationOrdered By: ED PROVIDER on 06-14-2025 MCH (RBC) [Entitic mass] 29.5 pg 27.0-32.0 [facility] Mean corpuscular hemoglobin concentration (MCHC) determinationOrdered By: ED PROVIDER on 06-14-2025 MCHC (RBC) [Mass/Vol] 32.9 g/dL 32-36 [facility] Mean platelet volume determi nationOrdered By: ED PROVIDER on 06-14-2025 Platelet mean volume (Bld) [Entitic vol] 10.3 fL 6.2-12.0 [facility] Monocyte percentageOrdered B y: ED PROVIDER on 06-14-2025 Monocytes/100 WBC (Bld) 12.6 % High 0-10 [facility] Neutrophil percentageOrdered By: ED PROVIDER on 06-14-2025 Neutrophils/100 WBC (Bld) 77.8 % High 47-70 [facility] Nucleated red blood cell per centageOrdered By: ED PROVIDER on 06-14-2025 Nucleated RBC/100 WBC (Bld) [Ratio] 0 % 0-5 [facility] Platelet countOrdered By: ED PROVIDER on 06-14-2025 Platelets (Bld) [#/Vol] 264 10*3/uL 150-450 [facility] Potassium measurement (mass/ volume)Ordered By: ED PROVIDER on 06-14-2025 Potassium (Unsp spec) [Mass/Vol] 3.9 mmol/L 3.3-5.1 [facility] RBC Auto (Bld) [#/Vol]Ordere d By: ED PROVIDER on 06-14-2025 RBC (Bld) [#/Vol] 4.64 10*6/uL 4.6-6.2 [facility] Serum creatinine measurement (mass/volume)Ordered By: ED PROVIDER on 06-14-2025 Creatinine [Mass/Vol] 0.92 mg/dL Normal 0.70-1.20 [facility] Comment on above: Performed By: #### L 501.4021, L500.2500, L100.0100 #### [facility] [address] [place], [address] Serum glucose measurement (m ass/volume)Ordered By: ED PROVIDER on 06-14-2025 Glucose [Mass/Vol] 111 mg/dL High 70-99 [facility] Comment on above: Performed By: #### L 501.4021, L500.2500, L100.0100 #### [facility] [address] [place], [address] Serum or plasma calcium nii urement (mass/volume)Ordered By: ED PROVIDER on 06-14-2025 Calcium [Mass/Vol] 8.9 mg/dL Normal 7.6-11.0 [facility] Comment on above: Performed By: #### L 501.4021, L500.2500, L100.0100 #### [facility] [address] [place], [address] Serum or plasma urea nitroge n measurement (mass/volume)Ordered By: ED PROVIDER on 06-14-2025 Urea nitrogen [Mass/Vol] 20 mg/dL High 4-19 [facility] Comment on above: Performed By: #### L 501.4021, L500.2500, L100.0100 #### [facility] [address] [place], [address] Sodium levelOrdered By: ED P TIMOTHY on 06-14-2025 Sodium [Moles/Vol] 138 mmol/L Normal 133-145 [facility] Comment on above: Performed By: #### L 501.4021, L500.2500, L100.0100 #### [facility] [address] [place], [address] Troponin T.cardiac [Mass/vol ume] in Serum or Plasma by High sensitivity methodOrdered By: Rayshawn Yeager on 06-14-2025 Troponin T.cardiac High sensitivity method [Mass/Vol] 12 ng/L <22 [facility] Troponin T.cardiac [Mass/vol ume] in Serum or Plasma by High sensitivity methodOrdered By: ED PROVIDER on 06-14-2025 Troponin T.cardiac High sensitivity method [Mass/Vol] 13 ng/L <22 [facility] White blood cell (WBC) count Ordered By: ED PROVIDER on 06-14-2025 WBC (Bld) [#/Vol] 14.6 10*3/uL High 4.4-11.0 [facility] XR CHEST 2V FRONTAL/LATon XR CHEST 2V FRONTAL/LAT * * *Final Repor t* * * DATE OF EXAM: Jun 14 [...] the spine. IMPRESSION: No acute radiographic abnormality. Carpenter: PSCB Transcribe Date/Time: Jun 14 2025 4:28P Dictated by : KIMBERLEY RAMOS MD This examination was interpreted and the report reviewed and electronically signed by: KIMBERLEY RAMOS MD on Jun 14 2025 4:28PM EST [id number] Normal [facility] Chest PA and Lateralon IMPRESSION: No acute radiographic abnormality. Carpenter: MOY Transcribe Date/Time: Jun 14 2025 4:28P Dictated by : KIMBERLEY RAMOS MD This examination was interpreted and the report reviewed and electronically signed by: KIMBERLEY RAMOS MD on Jun 14 2025 4:28PM [facility] DIVISION OF RADIOLOGY * * *Final Report* * * DATE OF EXAM: Jun 14 2025 4:21PM WOX 5291 - XR CHEST 2V FRONTAL/LAT / PROCEDURE REASON: multiple diagnoses * * * * Physician Interpretation * * * * EXAMINATION: CHEST RADIOGRAPH (2 VIEW FRONTAL & LATERAL) CLINICAL HISTORY: Fever, unspecified fever cause URI, acute MQ: XC2_6 EXAM DATE/TIME: 06/14/2025 4:21 PM COMPARISON: Chest x-ray on 11/25/2023 RESULT: Lines, tubes, and devices: None. Lungs and pleura: No consolidation. No lung mass. No pleural effusion. No pneumothorax. Cardiomediastinal silhouette: Stable cardiomediastinal silhouette. Bones and soft tissues: There are degenerative changes in the spine. DIVISION OF RADIOLOGY Provider, [facility] - 06/14/2025 * * *Final Report* * * DATE OF EXAM: Jun 14 2025 4:21PM WOX 5291 - XR CHEST 2V FRONTAL/LAT / PROCEDURE REASON: multiple diagnoses * * * * Physician Interpretation * * * * EXAMINATION: CHEST RADIOGRAPH (2 VIEW FRONTAL & LATERAL) CLINICAL HISTORY: Fever, unspecified fever cause URI, acute MQ: XC2_6 EXAM DATE/TIME: 06/14/2025 4:21 PM COMPARISON: Chest x-ray on 11/25/2023 RESULT: Lines, tubes, and devices: None. Lungs and pleura: No consolidation. No lung mass. No pleural effusion. No pneumothorax. Cardiomediastinal silhouette: Stable cardiomediastinal silhouette. Bones and soft tissues: There are degenerative changes in the spine. IMPRESSION IMPRESSION: No acute radiographic abnormality. Carpenter: MOY Transcribe Date/Time: Jun 14 2025 4:28P Dictated by : KIMBERLEY RAMOS MD This examination was interpreted and the report reviewed and electronically signed by: KIMBERLYE RAMOS MD on Jun 14 2025 4:28PM EST [facility] Radiology Study observation (narrative) Viviana shen [facility] XR Chest PA and LateralOrder ed By: [facility]cf Provider on 06-14-2025 [facility] CNOVon 05-10-2025 CNOV Office Visit (DERMST ) -------- RAYA MCNAIR ([id number]) 1940 M Date Time Provider Department 05/10/25 [...] helpful. Additional information can be obtained at: [email or web address] 2. In many cases, skin cancer can [...] are healing, please send your provider a NameMedia message or call . CARE FOR YOUR [...] are healing, please send your provider a NameMedia message or call . José Sheikh APRN.CNP 05/10/2025 2:34 PM Signed Department of Dermatology José Sheikh APRN.CNP Last visit in Dermatology: 5 (more content not included)... Normal [facility] CRYOTHERAPY SKIN LESIONon Complexity: simple Destruction method: cryotherapy Informed consent: [...] Return if lesions fail to fully resolve. [facility] Pathology biopsy report Matheus (Tiss)on 05-10-2025 AP DISCLAIMER Normal [facility] Comment on above: Order Comment: Jennie rodriguez Type: TISSUE SPECIMEN [facility]ing Facility: [facility] Address: [address] [place] [address] Result Comment: Jez altamirano Developed Test (LDT) Disclaimer: Performance characteristics of immunohistochemical, immunofluorescent, and chromogenic in-situ hybridization tests have been determined by the performing laboratory within [facility] Pathology and Laboratory Medicine Department ([facility], [facility], [facility], [facility], [facility], [facility], or [facility]) in a manner consistent with CLIA requirements. One or more of these tests may not have been cleared or approved by the FDA. [facility] is regulated under CLIA as qualified to perform high-complexity testing. These tests are used for clinical purposes. These should not be regarded as investigational or for research. Positive and negative controls stain appropriately. 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 Ordering Location: Dermatology Received: 05/10/2025 03:03 PM Pathologist: Rafy Guardado MD, PhD Specimen: Skin, Right Superior [place] Performed By: #### 6 6121-5 #### [facility] CLIA [id number] [address] [place] [address] [place] CLINICAL HISTORY Normal [facility] Comment on above: Order Comment: Speci michael Type: TISSUE SPECIMEN [facility] Address: [address] [place] [address] Result Comment: 7 x 6 mm erythematous hyperkeratotic papule Performed By: #### 6 6121-5 #### [facility] CLIA [id number] [address] [place] [address] [place] FINAL DIAGNOSIS Normal [facility] Comment on above: Order Comment: Speci men Type: TISSUE SPECIMEN [facility] Address: [address] [place] [address] Result Comment: A. S kin, right superior helix, shave biopsy: - Invasive moderately-differentiated squamous cell carcinoma. AF/EB/IO 05/11/2025 at 1519 EDT Performed By: #### 6 6121-5 #### [facility] CLIA [id number] [address] [place] [address] [place] FINAL PERFORMING LAB Normal [facility] Comment on above: Order Comment: Speci men Type: TISSUE SPECIMEN [facility] Address: [address] [place] [address] Result Comment: Diag nostic interpretation performed at: [facility], [address] [place] [address] CLIA# [id number] Political Aide: Calixto Kraft MD Performed By: #### 6 6121-5 #### [facility] CLIA [id number] [address] [place] [address] [place] GROSS DESCRIPTION A. Skin Normal [facility] Comment on above: Order Comment: Speci men Type: TISSUE SPECIMEN [facility] Address: [address] [place] [address] Result Comment: Rece ived in formalin is a 0.6 x 0.5 x 0.3 cm shave of skin. On the skin surface there is a 0.5 cm kaur, elevated area. The specimen is bisected. Totally submitted in one cassette. DB May 10, 2025 9:25 PM Gross examination performed at [facility], [address] [place] [address] Performed By: #### 6 6121-5 #### [facility] CLIA [id number] [address] [place] [address] OF [facility] SKIN / NAIL BIOPSYon 025 Type of biopsy: tangential Informed consent: discussed [...] dressing applied Dressing type: bandage and petrolatum [facility] No Panel InformationOrdered By: Dao Raphael on 04-18-2025 [facility] [address] [place] [address] Internal Medicine Signed Patient: RAYA MCNAIR MR#: [id number] : 1940 Acct:[id number] Age/Sex: 85 / M Date of Service: 04/18/25 Loc: AMBAntoninoELLI Visit Location: Visit Provider: Dao Raphael Jr, MD cc: Intake Vital Signs 04/18/25 11:12 Height 5 ft 9 in Weight 230 lb 4 oz BMI 34.0 BP 147/70 H BP Location Rt brachial BP Position Sitting BP Cuff Size Adult BP Source Automatic Cuff Respiration 14 Pulse 57 L Pulse Source Pulse Oximeter Temp 97.9 F Temp Source Temporal Artery Scan Pulse Oximetry (%) 100 Oxygen Delivery Method Room Air Medicare Wellness Intake Embroidery Specialist Required: No Accompanied by: Self Same As Patient Allergies gluten Allergy (Intermediate, Verified 04/18/25 11:13) Diarrhea milk Allergy (Intermediate, Verified 04/18/25 11:13) Diarrhea Home Medications - Last Reconciled 04/18/25 by Dao Raphael Jr, MD albuterol sulfate 90 mcg/actuation 2 puffs IH Q6H PRN amlodipine 10 mg PO QDAY 90 days aspirin (Adult Low Dose Aspirin) 81 mg PO QDAY atorvastatin 40 mg PO QDAY 90 days blood sugar diagnostic (Contour Test Strips) As directed; test twice a day blood-glucose meter (Contour Meter) As directed cholecalciferol (vitamin D3) 100 mcg PO QDAY dulaglutide (Trulicity) 1.5 mg SQ QWEEK famotidine 20 mg PO QDAY hydrochlorothiazide 25 mg PO QDAY 90 days isosorbide mononitrate ER 30 mg PO QDAY 90 days metformin ER 500 mg PO BID 90 days metoprolol succinate ER 100 mg PO QDAY 90 days montelukast 10 mg PO QDAY valsartan 320 mg PO QDAY 90 days Pain Scale: 4 (right shoulder pain) Fall Risk assessment done this year?: Yes Functional Assessment - ADL's Activities of Daily Living - ADL (1170f) Walking: Independent Dressing: Independent Bathing: Independent Toileting: Independent Eating: Independent HEDIS Measures HEDIS Measures G9717 Patient Diagnosed w/ Bipolar Disorder: No 3008f BMI Recorded: Yes 1159F Documentation of Current Med Usage: Yes 1101F Doc of Scrn Fall Risk in pt w/ no falls or one w/o injury: Yes 1170F Functional Evaluation: Yes 1126F Pain Severity Quantified; No Pain Present: Yes Blood Pressure Result: 147/70 Systolic Blood Pressure: Systolic >/=140 Diastolic Blood Pressure: Diastolic <80 PFSH Medical History Melanoma Varicocele present on ultrasound of scrotum Encounter for removal of skin lesion Surgical History History of tonsillectomy and adenoidectomy (~1946) H/O left wrist surgery (~2002) Hx of cholecystectomy (~2004) History of cataract surgery History of prostate surgery (~06/27/19) H/O heart artery stent (~03/19/21) Family History Father Coronary artery disease Social History Smoking Status: Never smoker Alcohol intake: never Substance use type: does not use Marital status: Number of children: 3 Highest education level completed: Associate degree: occupational, technical, vocational program Current occupational status: retired Seatbelt use: always Current diet type/program: regular Caffeine: Yes HPI Encounter for annual health examination Details: medical wellness ... 2/4: cardio appt ... received shingles vaccines: 12/2024; 03/2025 ... no questions or concerns Medicare Initial/Subsequent Preventative Services Health Care Proxy: Yes Advanced Care Planning Discuss (71844)?: discussed, patient to bring in advance directive Living will & medical proxy debt and budget counselor (as needed, if at risk): yes Fall Risk assessment done this year?: Yes Ability to successfully perform ADL's: Yes Assessment of Hearing Impairment: Yes Discussion of Home Safety: Yes ECG performed during visit (Medicare): No Alcohol Screen Alcohol: does not drink PHQ-2/9 Over the last 2 weeks, how often have you been bothered by any of the following problems Little interest or pleasure in doing things: not at all Feeling down, depressed, or hopeless: not at all PHQ-2: Total score: 0 Screen results: negative screen PHQ-9: Total score: 0 0-4 None-Minimal, 5-9 Mild, 10-14 Moderate, 15-19 Moderately Severe, 20-27 Severe Source: Developed by Drs. oHrtencia Kovacs, Dayami Maldonado, Sanjiv Negron and colleagues, with an educational jena from [employer]. Depression Screen Completed: Yes STEADI Fall Risk I have fallen in the past year (2): No I use/have been advised to use a cane/walker for safety (2): No Sometimes I feel unsteady when I am walking (1): No I steady myself by holding onto furniture at home (1): No I am worried about falling (1): No I need to push with my hands to stand up from a chair (1): No I have some trouble stepping up onto a curb (1): No I often have to finley to the toilet (1): No I have lost some feeling in my feet (1): No My medicine sometimes makes me feel light-headed/tired (1): No I take medicine to help me sleep or improve my mood (1): No I (more content not included)... [facility] Work Phone: CNOVon 04-12-2025 CNOV Office Visit (DERMST ) -------- RAYA MCNAIR ([id number]) 1940 M Date Time Provider Department 04/12/25 10:30 AM NURSE OZZIE [facility] CRUZITO NOGUEIRA During your visit today, [...] of Levulan sticks applied: 2 Lot # [id number] Exp 03/2027 Time before Blue Light exposure: [...] swelling and redness, you may also take indh-cge-yztzriq oral medications: Claritin (loratidine) 10 mg in [...] Upset Date Reviewed: 04/12/2025 Reviewed by: Ramila Anna, RN - Fully Assessed Reason for Visit: [...] (LIPITOR) 40 mg tablet - vit C/E/zinc o (more content not included)... Normal [facility] CNOVon 03-06-2025 CNOV Office Visit (LEAH ) -------- RAYA MCNAIR ([id number]) 1940 M Date Time Provider Department 03/06/25 2:00 PM HORTENCIA GERARD During your visit today, we recorded the following information about you: Hortencia Gerard PA-C 03/06/2025 12:29 PM Signed CHIEF COMPLAINT: [...] 400 Units by mouth once daily. vit A,C,H-Eyrb-Hbnfpf (PRESERVISION AREDS) 7,160 unit- 113 mg-100 unit [...] Each 1 each TOPICAL As Directed Corrie Stone PA-C 2 each at 05/10/24 1321 REVIEW [...] disturbance, mood disorder and recent psychosocial stressors. HEMATOLOGY/LYMPH (more content not included)... Normal [facility] No Panel Informationon 03-06 [facility] UA DIP, URINE (POC)on 2024 BILIRUBIN UA (POCT) Negative Negative Michele [facility] CLARITY UA (POCT) Clear [facility] [place] [facility] COLOR UA (POCT) Yellow [facility] GLUCOSE UA (POCT) Negative Negative mg/dL [facility] Hemoglobin Ql (U) Negative Negative [facility] KETONE UA (POCT) Negative Negative mg/dL [facility] LEUKOCYTES UA (POCT) Negative Negative [facility] NITRITE UA (POCT) Negative Negative [facility] PH UA (POCT) 5.5 4.5 - 8.0 [facility] Protein Ql (U) Negative Negative mg/dL [facility] SPECIFIC GRAVITY UA (POCT) 1.01 1.005 - 1.030 [facility] UROBILINOGEN UA (POCT) 0.2 Marcia l E.U./dL [facility] Location:[address], [place], [place], [address] [place] [address] POINT OF CARE URINE SEDIMENT B/Oon 025 BACTERIA, UR Negative Negative [facility] Casts LM.HPF (Urine sed) [#/Area] Negative Negative [facility] Leukocyte morphology finding Nom (Bld) 0 [facility] Nucleated RBC Manual cnt (Unsp spec) [#] 0 [facility] Urine sediment comments LM Matheus (Urine sed) None [facility] CNOVon 03-01-2025 CNOV Office Visit (DERMST ) -------- RAYA MCNAIR ([id number]) 1940 M Date Time Provider Department 03/01/25 7:00 AM JOSÉ SHEIKH During your visit today, we recorded the following information about you: José Sheikh APRN.CNP 03/01/2025 7:28 AM Signed Department of Dermatology José Sheikh APRN.CNP Last visit in Dermatology: 02/01/2025 Objective/Assessment/Kimmie n Skin Exam 1. NEOPLASM OF UNSPECIFIED BEHAVIOR [...] LESION, SKIN Subjective and Objective HPI: Raya Mcnair is a 85 year old male who presents for: # lesion Location: left forearm Duration: 2-3 weeks Symptoms: changing in appearance Current Treatment: none Past Treatment: none Past medical history is reviewed. - Melanoma 2023), SCCIS(2022), SCC and BCC(2019) Medication list is reviewed. Physical Exam included: Left forearm Intake information obtained by EVELYN Adler APRN.CNP Zamborsky, Lauren, APRN.CNP 03/01/2025 7:14 AM Signed CARE FOR YOUR [...] are healing, please send your provider a NameMedia message or call . Allergies As of Date: 03/01/2025 Noted Allergy Reaction GLUTEN 04/11/2021 14 - Other: See Comments LACTOSE 04/11/2021 8 - GI Upset Date Reviewed: 03/01/2025 Reviewed by: Tawny Bradford LPN - Fully Assessed Reason for Visit: LESION, SKIN [936] Primary Visit Diagnosis:Neoplasm of unspecified behavior of bone, soft tissue, and skin [D49.2] Order(s):SKIN / NAIL BIOPSY [6120065] Order #: [id number]: 1 SURGICAL PATHOLOGY [VBP8249] Order #: [id number] STANDING SURGICAL PATHOLOGY [[id number]] Order #: [id number] Prescriptions as of 03/01/2025 - TRULICITY 1.5 [...] E, dl, acetate, (VITAMIN E) 400 unit caps (more content not included)... Normal [facility] Pathology biopsy report Matheus (Tiss)on 03-01-2025 AP DISCLAIMER Normal [facility] Comment on above: Order Comment: Jennie rodriguez Type: TISSUE SPECIMENOrdering Facility: [facility] Address: [address] [place] [address] Result Comment: Jez altamirano Developed Test (LDT) Disclaimer: Performance characteristics of immunohistochemical, immunofluorescent, and chromogenic in-situ hybridization tests have been determined by the performing laboratory within [facility] Pathology and Laboratory Medicine Department ([facility], [facility], [facility], [facility], [facility], [facility], or [facility]) in a manner consistent with CLIA requirements. One or more of these tests may not have been cleared or approved by the FDA. [facility] is regulated under CLIA as qualified to perform high-complexity testing. These tests are used for clinical purposes. These should not be regarded as investigational or for research. Positive and negative controls stain appropriately. Performed By: #### 6 6121-5 ####[facility] LABCLIA [id number] [place] [address] [place] CASE REPORT Normal [facility] Comment on above: Order Comment: Speci men Type: TISSUE SPECIMENOrdering Facility: [facility] Address: [address] [place] [address] Result Comment: Surg [facility] Pathology Report Case: [id number] Authorizing Provider: José Sheikh, Collected: 03/01/2025 07:16 AM BUYING AGENT.CENTRIFUGAL CASTING MACHINE TENDER Ordering Location: Dermatology Received: 03/01/2025 08:51 AM Pathologist: Leticia Andrews MD Specimen: Skin, Left Forearm - Posterior Performed By: #### 6 6121-5 ####[facility] LABCLIA [id number] [address] [address] [place] FINAL DIAGNOSIS Normal [facility] Comment on above: Order Comment: Speci men Type: TISSUE SPECIMENOrdering Facility: [facility] Address: [address] [place] [address] Result Comment: A. S kin, left forearm-posterior, shave biopsy: - Scar. CR 03/02/2025 at 1531 EDT Performed By: #### 6 6121-5 ####[facility] LABCLIA [id number] [address] [address] [place] FINAL PERFORMING LAB Normal [facility] Comment on above: Order Comment: Speci men Type: TISSUE SPECIMENOrdering Facility: [facility] Address: [address] [place] [address] Result Comment: Diag nostic interpretation performed at: [facility], [address] [place] [address] [place] [address] CLIA# [id number] Political Aide: Calixto Kraft MD Performed By: #### 6 6121-5 ####[facility] LABCLIA [id number] [address] [address] [place] GROSS DESCRIPTION A. Skin Normal [facility] Comment on above: Order Comment: Speci men Type: TISSUE SPECIMENOrdering Facility: [facility] Address: [address] [place] [address] Result Comment: Rece ived in formalin is a 1.0 x 0.6 x 0.1 cm shave of skin. On the skin surface there is a 0.8 cm kaur-red and minimally elevated area. The specimen is bisected. Totally submitted in one cassette. AJB March 01, 2025 2:05 PM Gross examination performed at [facility], [address] [place] [address] Performed By: #### 6 6121-5 ####[facility] LABCLIA [id number] [address] SKIN / NAIL BIOPSYon 025 Type of biopsy: tangential Informed consent: discussed [...] dressing applied Dressing type: bandage and petrolatum [facility] Free PSA [Mass/Vol]on 2024 Free PSA/Total PSA [Mass fraction] 44 % Normal [facility] Comment on above: Order Comment: Speci men Type: BLOOD SPECIMENOrdering Facility: [facility] Address: [address] [place] [address] Result Comment: Tota l and free PSA test methodology used is the Electrochemiluminescence [...] >25 9.1% 12.2% 15.8% Performed By: #### 1 0886-0 ####[facility] LABIA [id number] [place] [address] [place] Prostate specific Ag [Mass/Vol] 0.34 ng/mL Normal <2.60 [facility] Comment on above: Order Comment: Speci men Type: BLOOD SPECIMENOrdering Facility: [facility] Address: [address] [place] [address] Result Comment: Tota l PSA test methodology used is the Electrochemiluminescence Immunoassay by [employer]. Total PSA values by differing methodologies cannot be interchanged. Performed By: #### 1 0886-0 ####[facility] LABIA [id number] [address] [place] CNOVon 02-01-2025 CNOV Office Visit (DERMST ) -------- RAYA MCNAIR ([id number]) 1940 M Date Time Provider Department 02/01/25 12:00 PM JOSÉ SHEIKHST During your visit today, we recorded the [...] helpful. Additional information can be obtained at: [email or web address].org/skin- cancer-information/early -detection 2. In many cases, skin cancer can [...] to your health care provider. José Sheikh APRN.CENTRIFUGAL CASTING MACHINE TENDER 02/01/2025 1:30 PM Signed Department of Dermatology José Sheikh APRN.SHARON 02/01/2025 Last visit in Dermatology: 11/02/2024 Objective/Assessment/Kimmie n Skin Exam 1. AK (ACTINIC KERATOSIS) (3) [...] Skin Check Subjective and Objective HPI: Raya Mcnair is a 85 year old male who presents for skin check. Desires: Total body skin check History of skin cancer?: Yes Melanoma left upper back 10/2024, Breslow 1.2 mm, Perfetco IV Multiple NMSC Areas of particular concern?: No Past medical history is reviewed. Medication list is reviewed. Physical Exam included: Scalp, face, ears, neck, chest, back, abdomen, bilateral upper extremities, bilateral lower (more content not included)... Normal [facility] Endocrinology Visit Reporton 01-17-2025 Endocrinology Visit Report [facility] [address] [place], [place] [address] OFFICE VISIT Date of Service: 01/17/25 MR#: [id number] Acct: [id number] Name: RAYA MCNAIR Rep #: [id number] : 1940 Provider: TAO ram Age/Sex: 84/M Location: [facility] Status: Signed Intake Vital Signs 07/19/24 09:30 01/17/25 09:25 Height 5 ft 1 in 5 ft 9.5 in Weight: 235 lb BMI 34.2 BP 142/89 H Blood Pressure Location Lt brachial Position Sitting Pulse 65 Pulse Source Monitor Pulse Oximetry (%) 96 Oxygen Delivery Method room air Intake Visit Reasons: 6 M FU Chief Complaint: f/u diabetes Embroidery Specialist Required: No Accompanied by: Self Is patient in pain?: No Allergies gluten Adverse Reaction (Verified 01/17/25 09:33) upset stomach/diarrhea lactose Adverse Reaction (Verified 01/17/25 09:33) upset stomach/diarrhea Medications ???Medication ???Instructions ???Recorded ???Confirmed ???Type aspirin 81 mg tablet,delayed 81 mg PO DAILY@0800 heart health 0 03/18/21 01/17/25 History release cholecalciferol (vitamin D3) 50 4,000 unit PO DAILY SUPPLEMENT 01/17/25 History mcg (2,000 unit) capsule vit C 250 mg-vit E 90 mg-zinc 40 1 cap PO BID EYE HEALTH 03/18/21 0 01/17/25 History mg-copper 1 [id number] capsule atorvastatin 40 mg tablet 40 mg PO QHS #90 tabs 04/11/21 Rx isosorbide mononitrate 30 mg 30 mg PO DAILY #90 tabs 04/11/21 0 01/17/25 Rx tablet,extended release 24 hr vitamin E mixed 400 unit capsule 400 unit PO DAILY 02/16/22 5 History metformin 500 mg tablet,extended 500 mg PO BID 08/20/22 01/17/25 Hi story release 24 hr diphenhydramine HCl 25 mg capsule 25 mg PO QHS PRN 06/09/23 5 History (Benadryl) cetirizine 10 mg tablet 10 mg PO DAILY 10/19/23 01/17/25 H istory montelukast 10 mg tablet 10 mg PO QHS 10/19/23 01/17/25 His tory valsartan 320 mg tablet 320 mg PO DAILY 10/19/23 01/17/25 History hydrochlorothiazide 25 mg tablet 25 mg PO Q OTHER DAY 07/19/2412/30 History amlodipine 10 mg tablet 10 mg PO DAILY 12/26/24 01/17/25 H istory metoprolol succinate 50 mg 100 mg PO DAILY 12/26/24 01/17/25 History tablet,extended release 24 hr tamsulosin 0.4 mg capsule 0.4 mg PO QDAY 12/26/24 01/17/25 H istory famotidine 20 mg tablet 20 mg PO DAILY #90 tabs 01/15/25 0 01/17/25 Rx dulaglutide 3 mg/0.5 mL 3 mg (0.5 mL) subcut QWEEK #2 mL 0 01/17/25 01/17/25 Rx subcutaneous pen injector (Trulicity) Have you fallen in the past year?: No PFSH Medical History Hyperlipidemia Skin cancer Pneumonia Heart disease Gastrointestinal problem Gall stones Cataract Bone fracture Allergies Type 2 diabetes mellitus Hypertension Celiac disease Anxiety Coronary artery disease Hypertension Atherosclerotic heart disease of [place] coronary artery without angina pectoris Surgical History Hx of melanoma excision History of cholecystectomy Presence of coronary angioplasty implant and graft ( 04/03/21) Presence of stent in coronary artery ( 04/03/21) Family History Other Asthma Cancer Diabetes H/O transfusion of whole blood Heart disease Hypertension Liver disease Melanoma Myocardial infarction Skin cancer Social History Smoking Status: Former smoker how long ago did patient quit smokin years ago alcohol intake: current alcohol intake frequency: holidays/special occasions only substance use type: does not use caffeine: Yes Type: coffee Number of servings: 2 and tea Number of servings: 1 what type of physical activity do you participate in: other details: cardio frequency: 3-4 times per week HPI HPI Chief Complaint: f/u diabetes Details: RAYA MCNAIR, is a 84 M who presents to the office today for evaluation and management of diabetes. A1C today is 5.5%, improved slightly from 07/19/24 at 5.7%. He has gained 2 lbs since that time. Currently taking Trulicity 1.5 mg qweek- tolerating well, and metformin 500 mg BID with food. He checks blood sugars routinely, fasting blood sugars are typically 100-115, post meal blood sugars are <180. BP today is stable. Currently taking amlodipine 10 mg once daily, HCTZ 25 mg once daily, metoprolol 100 mg once daily, and valsartan 320 mg once daily. He takes a daily statin and has tightly controlled cholesterol. He was recently diagnosed with melanoma, this was very upsetting to him. He had surgery that is thought to be curative, he will have body scan q 6 months. Labs are up to vickie (more content not included)... Normal [facility] - Hematology and Cell countsOrdered By: Holli Arredondo on 01-17-2025 HbA1c (Bld) [Mass fraction] 5.5 % 4.2-6.3 [facility] Gastroenterology Visit Repor ton 01-15-2025 Gastroenterology Visit Report [facility] [address] [place] [address] OFFICE VISIT Date of Service: 01/15/25 MR#: [id number] Acct: [id number] Name: RAYA MCNAIR Rep #: [id number] : 1940 Provider: Vernon Prado DO Age/Sex: 84/M Location: [facility] Status: Signed Intake Vital Signs 10/19/23 10:05 12/26/24 09:47 Height 5 ft 10 in 5 ft 1 in Weight: 237 lb BMI 44.7 BP 112/54 L Blood Pressure Location Lt brachial Position Sitting Respiration 16 Pulse 65 Pulse Source Monitor Intake Visit Reasons: 1 Y FU Allergies gluten Adverse Reaction (Verified 12/26/24 10:07) upset stomach/diarrhea lactose Adverse Reaction (Verified 12/26/24 10:07) upset stomach/diarrhea Medications ???Medication ???Instructions ???Recorded ???Confirmed ???Type aspirin 81 mg tablet,delayed 81 mg PO DAILY@0800 heart health 0 03/18/21 01/15/25 History release cholecalciferol (vitamin D3) 50 4,000 unit PO DAILY SUPPLEMENT 01/15/25 History mcg (2,000 unit) capsule vit C 250 mg-vit E 90 mg-zinc 40 1 cap PO BID EYE HEALTH 03/18/21 0 01/15/25 History mg-copper 1 [id number] capsule atorvastatin 40 mg tablet 40 mg PO QHS #90 tabs 04/11/21 Rx isosorbide mononitrate 30 mg 30 mg PO DAILY #90 tabs 04/11/21 0 01/15/25 Rx tablet,extended release 24 hr vitamin E mixed 400 unit capsule 400 unit PO DAILY 02/16/22 5 History metformin 500 mg tablet,extended 500 mg PO BID 08/20/22 01/15/25 Hi story release 24 hr diphenhydramine HCl 25 mg capsule 25 mg PO QHS PRN 06/09/23 5 History (Benadryl) cetirizine 10 mg tablet 10 mg PO DAILY 10/19/23 01/15/25 H istory montelukast 10 mg tablet 10 mg PO QHS 10/19/23 01/15/25 His tory valsartan 320 mg tablet 320 mg PO DAILY 10/19/23 01/15/25 History hydrochlorothiazide 25 mg tablet 25 mg PO Q OTHER DAY 07/19/2412/30 History dulaglutide 1.5 mg/0.5 mL 1.5 mg (0.5 mL) subcut QWEEK #2 mL 12/01/24 01/15/25 Rx subcutaneous pen injector (Trulicity) amlodipine 10 mg tablet 10 mg PO DAILY 12/26/24 01/15/25 H istory metoprolol succinate 50 mg 100 mg PO DAILY 12/26/24 01/15/25 History tablet,extended release 24 hr tamsulosin 0.4 mg capsule 0.4 mg PO QDAY 12/26/24 01/15/25 H istory famotidine 20 mg tablet 20 mg PO DAILY #90 tabs 01/15/25 0 01/15/25 Rx Have you fallen in the past year?: No PFSH Medical History Hyperlipidemia Skin cancer Pneumonia Heart disease Gastrointestinal problem Gall stones Cataract Bone fracture Allergies Type 2 diabetes mellitus Hypertension Celiac disease Anxiety Coronary artery disease Hypertension Atherosclerotic heart disease of [place] coronary artery without angina pectoris Surgical History Hx of melanoma excision History of cholecystectomy Presence of coronary angioplasty implant and graft ( 04/03/21) Presence of stent in coronary artery ( 04/03/21) Family History Other Asthma Cancer Diabetes H/O transfusion of whole blood Heart disease Hypertension Liver disease Melanoma Myocardial infarction Skin cancer Social History Smoking Status: Former smoker how long ago did patient quit smokin years ago alcohol intake: current alcohol intake frequency: holidays/special occasions only substance use type: does not use caffeine: Yes Type: coffee Number of servings: 2 and tea Number of servings: 1 what type of physical activity do you participate in: other details: cardio frequency: 3-4 times per week HPI HPI Details: RAYA MCNAIR, is a 84 M who presents to the office today for follow up. PMH CAD s/p stenting 5..21, heart disease, HTN, DMII. Recently had photodynamic therapy that is causing him to have some increased light-sensitivity today. PSH cholecystectomy 2004. ??? 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 Morning diarrhea 1-2 times a day with watery stools for many years without abdominal pain, mucus, blood or incontinence; previously diagnosed with celiac (does not follow celiac diet), unable to identify triggers. Manager Psychiatry stopped Trulicity for possible cause of diarrhea and started metformin and this was not helpful. ?Bio chemical???T3, ABIMAEL, IgGAM, celiac, ANCA, LUCAS comp, ESR, CBC, TSH, LDH, CMP (AST L11/AlkP H118), Vit B12 without pertinent abnormality. CRP H5.90, IgE L4, Crohn???s (apANCA, Oneal, ALCA, AMCA). Stool calprotectin, enteric pathogen, lactoferrin, C.Difficile, fecal fat WNL. Ova/parasite, giardia not run. Occult +, e (more content not included)... Normal [facility] Echo Complete W/ Contraston 01-02-2025 Echo Complete W/ Contrast [facility] [address] [place] [address] Echo Complete W/ Contrast 01/02/25 0822 MR#: [id number] Acct: [id number] Name: RAYA MCNAIR Rep #: [id number] : 1940 84 From: Parminder Parks MD Attending Dr: Dr. Parminder Parks MD Status: JOO MANCINI Ordering Dr: Parminder Parks MD Date: 01/02/25 Location: [facility] Sex: M N Admitted: Version 2 Reason For Study: CAD/ASHD Procedure This was a 2D Doppler, Color Flow transthoracic echocardiogram. The study was technically difficult. Contrast injection was performed. Exam performed in department. Left Ventricle Normal left ventricle. Mild concentric left ventricular hypertrophy. Left ventricular systolic function is normal. The left ventricular ejection fraction is 65 %. Stage 1 diastolic dysfunction. No regional wall motion abnormalities noted. Right Ventricle Normal RV size. Normal systolic function. Atria Normal left atrium. Normal right atrium. Mitral Valve Normal mitral valve. Tricuspid Valve Normal tricuspid valve. Aortic Valve Trisinus/trileaflet aortic valve. Mild focal aortic valve calcification. Pulmonic Valve Normal pulmonic valve. Great Vessels Normal aortic root. The pulmonary is not well visualized. Normal inferior vena cava. Pericardium/Pleural No pericardial effusion. Medication 22 gauge I.V. with prn adaptor inserted into left arm. Diluted definity 2.5ml given slow IV push to enhance endocardial definition. MMode/2D Measurements Calculations LVIDd: 4.4 cm IVSd: 1.5 cm LVOT diam: 2.0 cm LVIDs: 3.0 cm LVPWd: 1.2 cm FS: 33.5 % LVOT area: 3.3 cm2 Ao root diam: 3.7 cm LAV(MOD-bp): 97.1 ml LVAd ap4: 31.8 cm2 LAV(MOD-bp) Indexed: 47.8 ml/m2 LVLd ap4: 8.3 cm LAV(MOD-sp2): 98.1 ml EDV(MOD-sp4): 99.5 ml LAV(MOD-sp4): 93.6 ml EDV(sp4-el): 103.7 ml LVAs ap4: 16.0 cm2 LVLs ap4: 6.9 cm ESV(MOD-sp4): 31.5 ml ESV(sp4-el): 31.6 ml EF(MOD-sp4): 68.4 % EF(sp4-el): 69.6 % SV(MOD-sp4): 68.0 ml SV(sp4-el): 72.2 ml LA A4 area: 27.4 cm2 SI(MOD-sp4): 33.5 ml/m2 LA dimension(2D): 4.6 cm RA A4 area: 22.9 cm2 TAPSE: 2.3 cm Time Measurements MV dec time: 0.26 sec Doppler Measurements Calculations MV E max angel: 109.4 cm/sec Lat Peak E' Angel: 5.4 cm/sec Med Peak E' Angel: 8.0 cm/sec MV A max angel: 116.7 cm/sec E/E' lat: 20.2 E/E' med: 13.6 MV E/A: 0.94 MV V2 max: 133.7 cm/sec MV P1/2t max angel: 124.5 cm/sec Ao V2 max: 125.9 cm/sec MV max P.1 mmHg MV P1/2t: 81.0 msec Ao max P.3 mmHg MV V2 mean: 75.4 cm/sec MV dec slope: 450.0 cm/sec2 ANNI(V,D): 2.3 cm2 MV mean P.7 mmHg MVA(P1/2t): 2.7 cm2 MV V2 VTI: 36.6 cm LV V1 max: 90.4 cm/sec LV V1 max P.3 mmHg ECHO/Echo Complete W/ Contrast Interpretation Summary Normal left ventricle. Left ventricular systolic function is normal. The left ventricular ejection fraction is 65 %. Stage 1 diastolic dysfunction. Mild concentric left ventricular hypertrophy. Contrast injection was performed. Ordering Physician: Parminder Parks Referring Physician: Parminder Parks Performed By: Edward Sim RCS 01/02/25 1156 Date Parminder Parks MD CC: Dr. Parminder Parks MD; DAO RAPHAEL Date Dictated: 01/02/25 0822 Date Transcribed: 01/02/25 1155 Carpenter: Signed Normal [facility] Stress Reporton 01-02-2025 Stress Report [facility] [address] [place] [address] MR#: [id number] Acct: [id number] Name: RAYA MCNAIR Rep #: [id number] : 1940 84 From: Parminder Parks MD Primary Care: DAO RAPHAEL Status: REG CLI Referring Dr: Parminder Parks MD Sex: M N Stress Test Report Pharmacologic myocardial perfusion stress test. 84-year-old man with a history of coronary disease Resting EKG demonstrates sinus rhythm with a rate of 78 bpm. Resting blood pressure is 167/78 mmHg. 0.4 mg of regadenoson was infused per usual protocol followed by rapid intravenous saline flush injection. Continuous EKG monitoring was performed. The maximum heart rate was 87 bpm which was 63% of max impacted heart rate the maximum workload was 1 metabolic equivalent. At rest there were no ST or T wave changes noted to suggest ischemia and at peak infusion nonspecific ST changes were noted which did not meet the criteria for ischemia. No clinical angina is noted. The final blood pressure was 143/60 mmHg. Myocardial perfusion protocol. 15 mCi of technetium 99m sestamibi was injected at rest. 0.4 mg of regadenoson was infused per usual protocol. At peak infusion 45 mCi of technetium 99m sestamibi was injected stress images were obtained stress and rest images were reconstructed and compared in the short axis vertical long and horizontal long axis. Gated images were also obtained. Perfusion SPECT analysis: Review of the stress images demonstrate normal uptake of tracer noted in all areas of the myocardium. The resting images similar demonstrated normal uptake of tracer noted in all areas of the myocardium. No areas of reversibility are noted to suggest ischemia and no previous infarct is noted. Gated SPECT analysis: The gated ejection fraction is 74%. Conclusion: Normal pharmacologic myocardial perfusion stress test. Preserved ejection fraction. 01/02/25 1702 Date Parminder Parks MD CC: Dr. Parminder Parks MD; DAO RAPHAEL Date Dictated: 01/02/251699 Date Transcribed: 01/02/251699 Carpenter: CO Signed Normal [facility] Cardiology Visit Reporton Cardiology Visit Report [facility] [address] [place] [address] OFFICE VISIT Date of Service: 12/26/24 MR#: [id number] Acct: [id number] Name: RAYA MCNAIR Rep #: [id number] : 1940 Provider: Dr. Parminder Parks MD Age/Sex: 84/M Location: [facility] Status: Signed HPI HPI History of Present Illness Details: Raya Mcnair is an 84-year-old male presents the office today for a cardiovascular outpatient follow-up. He was evaluated at [facility] in February 2021 for increasing angina. He underwent a heart catheterization on 03/19/2021 that demonstrated multivessel coronary artery disease. He underwent drug-eluting stent to proximal OM2. He returned to [facility] on 04/03/2021 for a stage PCI and underwent drug-eluting stent to LAD. Echocardiogram on 03/19/2021 showed an ejection fraction of 65%. He also has a history of hypertension, hyperlipidemia, and diabetes. He denies chest, arm, jaw, or neck discomfort. He denies palpitations. He denies bilateral lower extremity edema. He denies claudication. He states occasional shortness of breath with activity such walking long distance and not with ADLs. He states this is unchanged from previous. He is unsure if he snores. He denies shortness of breath at rest, orthopnea, or PND. He denies chronic cough. He denies significant, sudden weight gain. He denies lightheadedness, dizziness, near- syncope, or syncope. He denies blood in urine, blood in stool, or epistaxis. He denies fever with chills. He denies myalgia. He acknowledges fatigue. He states intermittent naps during the day. His exercise level has remained stable. Intake Vital Signs 10/19/23 10:05 07/19/24 09:30 12/26/24 09:47 Height 5 ft 10 in 5 ft 1 in 5 ft 1 in Weight: 237 lb BMI 44.7 BP 112/54 L Blood Pressure Location Lt brachial Position Sitting Respiration 16 Pulse 65 Pulse Source Monitor Intake Visit Reasons: 1 Y FU Embroidery Specialist Required: No Accompanied by: Self Is patient in pain?: No Allergies gluten Adverse Reaction (Verified 12/26/24 10:07) upset stomach/diarrhea lactose Adverse Reaction (Verified 12/26/24 10:07) upset stomach/diarrhea Medications ???Medication ???Instructions ???Recorded ???Confirmed ???Type aspirin 81 mg tablet,delayed 81 mg PO DAILY@0800 heart health 03/18/21 12/26/24 History release cholecalciferol (vitamin D3) 50 4,000 unit PO DAILY SUPPLEMENT 03/18/21 12/26/24 History mcg (2,000 unit) capsule vit C 250 mg-vit E 90 mg-zinc 40 1 cap PO BID EYE HEALTH 03/18/21 12/26/24 History mg-copper 1 nc-wvygmc-nrghxk capsule atorvastatin 40 mg tablet 40 mg PO QHS #90 tabs 04/11/21 12/26/24 Rx isosorbide mononitrate 30 mg 30 mg PO DAILY #90 tabs 04/11/21 12/26/24 Rx tablet,extended release 24 hr vitamin E mixed 400 unit capsule 400 unit PO DAILY 02/16/22 12/26/24 History metformin 500 mg tablet,extended 500 mg PO BID 08/20/22 12/26/24 History release 24 hr diphenhydramine HCl 25 mg capsule 25 mg PO QHS PRN 06/09/23 12/26/24 History (Benadryl) cetirizine 10 mg tablet 10 mg PO DAILY 10/19/23 12/26/24 History famotidine 20 mg tablet 20 mg PO DAILY 10/19/23 12/26/24 History montelukast 10 mg tablet 10 mg PO QHS 10/19/23 12/26/24 History valsartan 320 mg tablet 320 mg PO DAILY 10/19/23 12/26/24 History hydrochlorothiazide 25 mg tablet 25 mg PO Q OTHER DAY 07/19/24 12/26/24 History dulaglutide 1.5 mg/0.5 mL 1.5 mg (0.5 mL) subcut QWEEK #2 mL 12/01/24 12/26/24 Rx subcutaneous [facility] amlodipine 10 mg tablet 10 mg PO DAILY 12/26/24 12/26/24 History metoprolol succinate 50 mg 100 mg PO DAILY 12/26/24 History tablet,extended release 24 hr tamsulosin 0.4 mg capsule 0.4 mg PO QDAY 12/26/24 12/26/24 History Have you fallen in the past year?: No PFSH Medical History Hyperlipidemia Skin cancer Pneumonia Heart disease Gastrointestinal problem Gall stones Cataract Bone fracture Allergies Type 2 diabetes mellitus Hypertension Celiac disease Anxiety Coronary artery disease Hypertension Atherosclerotic heart disease of [place] coronary artery without angina pectoris Surgical History Hx of melanoma excision History of cholecystectomy Presence of coronary angioplasty implant and graft ( 04/03/21) Presence of stent in coronary artery ( 04/03/21) Family History Other Asthma Cancer Diabetes H/O transfusion of whole blood Heart disease Hypertension Liver disease Melanoma Myocardial infarction Skin cancer Social History Smoking Status: Former smoker how long (more content not included)... Normal [facility] No Panel InformationOrdered By: Dao Raphael on 12-22-2024 [facility] [address] [place] [address] Internal Medicine Signed Patient: RAYA MCNAIR MR#: [id number] : 1940 Acct:[id number] Age/Sex: 84 / M Date of Service: 12/22/24 Loc: [facility] Visit Location: Visit Provider: Dao Raphael Jr, MD cc: Intake Vital Signs 12/22/24 10:44 Height 5 ft 9 in Weight 234 lb BMI 34.6 BP 136/76 BP Location Lt brachial BP Position Sitting BP Cuff Size Adult BP Source Automatic Cuff Respiration 18 Pulse 62 Pulse Source Pulse Oximeter Temp 98.2 F Temp Source Temporal Artery Scan Pulse Oximetry (%) 100 Oxygen Delivery Method Room Air Intake/Allergies/Med Rec Visit Reasons: hypertension, Follow Up Accompanied by: Self Same As Patient Allergies gluten Allergy (Intermediate, Verified 08/23/24 10:52) Diarrhea milk Allergy (Intermediate, Verified 08/23/24 10:52) Diarrhea Home Medications - Last Reconciled 12/22/24 by Dao Raphael Jr, MD albuterol sulfate 90 mcg/actuation 2 puffs IH Q6H PRN amlodipine 10 mg PO QDAY 90 days aspirin (Adult Low Dose Aspirin) 81 mg PO QDAY atorvastatin 40 mg PO QDAY 90 days blood sugar diagnostic (Contour Test Strips) As directed blood-glucose meter (Contour Meter) As directed cholecalciferol (vitamin D3) 100 mcg PO QDAY dulaglutide (Trulicity) 1.5 mg SQ QWEEK famotidine 20 mg PO QDAY hydrochlorothiazide 25 mg PO QDAY 90 days isosorbide mononitrate ER 30 mg PO QDAY 90 days metformin ER 500 mg PO BID 90 days metoprolol succinate ER 100 mg PO QDAY 90 days montelukast 10 mg PO QDAY valsartan 320 mg PO QDAY 90 days Pain Scale: 0 Fall Risk assessment done this year?: Yes PHQ-2/9 Over the last 2 weeks, how often have you been bothered by any of the following problems Little interest or pleasure in doing things: not at all Feeling down, depressed, or hopeless: not at all PHQ-2: Total score: 0 Screen results: negative screen PHQ-9: Total score: 0 0-4 None-Minimal, 5-9 Mild, 10-14 Moderate, 15-19 Moderately Severe, 20-27 Severe Source: Developed by Drs. Hortencia Kovacs, Dayami Maldonado, Sanjiv Negron and colleagues, with an educational jena from [employer]. HEDIS Measures HEDIS Measures Blood Pressure Result: 136/76 Systolic Blood Pressure: Systolic 130-139 Diastolic Blood Pressure: Diastolic <80 [facility] Medical History (Updated 12/22/24 @ 11:35 by Dao Raphael Jr, MD) Melanoma Varicocele present on ultrasound of scrotum Encounter for removal of skin lesion Surgical History History of tonsillectomy and adenoidectomy (~1946) H/O left wrist surgery (~2002) Hx of cholecystectomy (~2004) History of cataract surgery History of prostate surgery (~06/27/19) H/O heart artery stent (~03/19/21) Family History Father Coronary artery disease Social History Smoking Status: Never smoker Alcohol intake: never Substance use type: does not use Marital status: Number of children: 3 Highest education level completed: Associate degree: occupational, technical, vocational program Current occupational status: retired Seatbelt use: always Current diet type/program: regular Caffeine: Yes HPI Hypertension (HTN)/Elevated BP Presentation Healthcare encounters since last office visit: none BP at target: Yes BP target: less than 130/80 BP status: improving Target organ damage: No Oim-gn-zmfowg BP monitoring: home monitoring Symptoms Details: this am at home 155/79,a few days prior 146/72 General symptoms: Denies: fatigue, anxiety or irritability Visual symptoms: Denies: change in vision Cardiopulmonary symptoms: Denies: dyspnea GI symptoms: Denies: diarrhea, nausea or vomiting Neurological symptoms: Denies: behavioral changes, confusion, dizziness, lightheadedness or headache(s) Medications Currently on antihypertensives: Yes Compliance: good Side effects: none Past medication(s): Yes: Thiazide and related diuretics, Calcium Channel Blockerand Beta Jeanette Risk Scores Risk Assessments: Suicidal thoughts not at all 05/24/24 12:00 05/24/24 Management Current salt intake: limiting/avoiding salt Comorbidities: History of: stable ischemic heart disease and diabetes mellitus Recommended changes: lifestyle, weight reduction, dietary and physical activity HPI Comments Details: hypertension 160s-143/80-67 Questionnaire STEADI Assessment STEADI Fall Risk Fall Risk assessment done this year?: Yes Review of Systems Status of ROS 10 or more systems reviewed and unremark able except as noted in history and below Constitutional no fatigue Eyes no change in vision Ears, nose, mouth, and throat no throat pain, no difficulty swallowing, no mouth pain (no mouth ulcers, no oral abnormalities), no dry mouth, no ear pain, no change in hearing and no nose bleeds Cardiovascular no chest pain, no palpitations, no edema, no swelling of feet/ankles, no lightheadedness, no (more content not included)... [facility] Work Phone: CNOVon 12-21-2024 CNOV Office Visit (GENM4) -------- RAYA MCNAIR ([id number]) 1940 M Date Time Provider Department 12/21/24 11:00 AM JOSE RAMON MEDINA During your visit today, we recorded the following information about you: Temperature Pulse Respiration Blood pressure 96.6 degrees 64/minute 20/minute 159/71 Jose Ramon Medina MD 12/22/2024 5:30 PM Signed Additional intake questions: Has the patient had fever, nausea, vomiting, diarrhea, constipation, fatigue for > 1 week? No Does the patient have a decreased appetite? No Does patient want to see a Local Government Legislator? No (yes to any of above refer [...] SURGERY Clinic Follow-up NOTE Patient name: Raya Mcnair Date of : 1940 PRESENTING COMPLAIN: follow up post WLE of left shoulder lesion HISTORY OF PRESENT ILLNESS: Raya Mcnair is a 84 year old male SCC in situ (right yazidism 2022), BCC (left mandible 2019), SCC (lower [...] Lactose GI Upset ASSESSMENT AND PLAN: Raya Mcnair is a 84 year old male SCC insitu (right yazidism 2022), BCC (left mandible 2019), SCC (lower [...] Upset Date Reviewed: 11/27/2024 Reviewed by: Nafisa Lynch RN - Fully Assessed Reason for Visit: [...] up to a week on stinging/burning areas (more content not included)... Normal [facility] 12-01-2024 SHARONN Telephone ([employer] Bank[employer]ABRIELLE) -------- RAYA MCNAIR ([id number]) 1940 M Date Time Provider Department 12/01/24 JOSE RAMON MEDINA During your visit today, we recorded the following information about you: Don Carranza 12/01/2024 1:33 PM Signed Jane from pt's PCP's office Dr. Raphael is requesting pt's Pathology results faxed to: [phone]/ATTN: Krista Contact info: [phone] Marifer Romano RN 12/01/2024 4:35 PM Signed Faxed over path report and op report Allergies As of Date: 12/01/2024 Noted Allergy Reaction GLUTEN 04/11/2021 14 - Other: See Comments LACTOSE 04/11/2021 8 - GI Upset Date Reviewed: 11/27/2024 Reviewed by: Nafisa Lynch RN - Fully Assessed Reason for Visit: [...] Units by mouth once daily. - vit A,C,K-Zwoi-Hoyobn (PRESERVISION AREDS) 7,160 unit- 113 mg-100 unit [...] Encounter Status:Closed by MARIFER ROMANO on 12/01/24 [facility] [id number] 11-27-2024 [id number] HNO ID: [id number] Author: SHANNON, NAFISA, RN Service: ? Author Type: Registered Nurse Type: [id number] Filed: 11/27/2024 12:51 Note Text: Discharge instructions: [...] questions or concerns during business hours call [phone] or after hours (after 5 pm or on the weekend) call [phone] and ask for the general surgery resident / fellow eligibility consultant for further instructions. If you have [...] pain, shortness of breath or difficulty breathing Normal [facility] OPERATIVE NOon 11-27-2024 OPERATIVE NO HNO ID: [id number] Author: JOSE RAMON MEDINA MD Service: General Surgery Author Type: Physician Type: Operative Report Filed: 11/27/2024 14:59 Note Text: OPERATIVE/PROCEDURE REPORT LOG ID: [id number] SURGERY/PROCEDURE DATE: 11/27/2024 INCISION/PROCEDURE START TIME: 12:22 PM INCISION CLOSE/PROCEDURE END TIME: 12:33 PM SURGEON(S)/PROCEDURALIST (S) AND RESEARCH MANAGER(S): Surgeons and Role: * Jose Ramon Medina MD - Primary No Additional Staff SURGERY/PROCEDURE(S): [...] performed the entire procedure. SIGNATURE: Jose Ramon Medina MD PATIENT NAME: Raya Mcnair DATE: November 27, 2024 TIME: 2:55 PM Normal [facility] SURGICAL PATHOLOGYon 024 CASE REPORT Normal [facility] Comment on above: Order Comment: Speci men Type: TISSUE SPECIMEN [facility]ing Facility[facility] Address: [address] [place] [address] Result Comment: Surg [facility] Pathology Report Case: [id number] Authorizing Provider: Jose Ramon Medina MD Collected: 11/27/2024 12:25 PM Ordering Location[facility] Received: 11/27/2024 05:16 PM Pathologist: Celestino García MD Specimen: Skin, Excision, left back melanoma Performed By: #### S #### [facility] CLIA [id number] [address] [place] [address] [place] CLINICAL HISTORY Normal [facility] Comment on above: Order Comment: Speci men Type: TISSUE SPECIMEN [facility]ing Facility: [facility] Address: [address] [place] [address] Result Comment: Pre- op diagnosis: 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 S kin, left back, excision: - Scar and reactive changes consistent with prior procedure. - Negative for residual neoplasm. - Incidental intradermal nevus. SDB/EB 12/01/2024 Performed By: #### S #### [facility] CLIA [id number] [address] [place] [address] [place] FINAL PERFORMING LAB Normal [facility] Comment on above: Order Comment: Speci men Type: TISSUE SPECIMEN [facility] Address: [address] [place] [address] Result Comment: Diag nostic interpretation performed at [facility], [address] [place] [address] CLIA# [id number] Political Aide: Calixto Kraft M.D. Performed By: #### S #### [facility] CLIA [id number] [address] [place] [address] [place] GROSS DESCRIPTION Normal [facility] Comment on above: Order Comment: Jennie rodriguez Type: TISSUE SPECIMEN [facility] Address: [address] [place] [address] Result Comment: A. S kin, Excision Received in formalin is an oriented elliptical [...] remainder of tissue. Gross examination performed at [facility], [address] [place] [address] FFS 11/27/2024 8:51 PM Performed By: #### S #### [facility] CLIA [id number] [address] [place], [place] [address]K [id number] [place] [address] CNOVon 11-16-2024 CNOV Office Visit (GENM4) -------- RAYA MCNAIR ([id number]) 1940 M Date Time Provider Department 11/16/24 11:00 AM JOSE RAMON MEDINA GENM4 During your visit today, we recorded the following information about you: Temperature Pulse Respiration Blood pressure 96.6 degrees 67/minute 20/minute 154/67 Pancho Vazquez MA 11/16/2024 4:50 PM Signed Additional intake questions: Has the patient had fever, nausea, vomiting, diarrhea, constipation, fatigue for > 1 week? No Does the patient have a decreased appetite? No Does patient want to see a Local Government Legislator? No (yes to any of above refer [...] HISTORY AND PHYSICAL EXAMINATION Patient Name: Raya Mcnair PRIMARY CARE PHYSICIAN: Dao Raphael Jr, MD CHIEF COMPLAINT: Melanoma HPI: This is a 84 year old male who presents with lesion on Lt upper back with a biopsy positive for melanoma. 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 [facility] CNPN Telephone (DERMST) -------- RAYA MCNAIR ([id number]) 1940 M Date Time Provider Department 11/09/24 CORRIE STONE DERM During your visit today, we recorded the following information about you: Corrie Stone PA-C 11/09/2024 6:05 PM Signed FINAL DIAGNOSIS A. Skin, right breast, shave biopsy: - Inflamed seborrheic keratosis. B. Skin, left upper back, shave biopsy: - Melanoma, see comment and synoptic report. LISA/DOLORES/bay/11/08/2024 Diagnosis Comment B. Histologic sections demonstrate a [...] been determined by the performing laboratory within [facility] Pathology and Laboratory Medicine Department ([facility], [facility], [facility], [facility], [facility], [facility], or [facility]) in a manner consistent with CLIA requirements. [...] Montez Kristian, PA-C 11/09/2024 6:05 PM Signed [facility]ckerman RN 11/13/2024 10:20 AM Signed Reached out to general surgery nurse skin care consultant and [facility] scheduling to establish an appointment with Dr. Medina for a surgical consult for a WLE [...] cetirizine (ZYRTEC) 10 mg tablet Take 1 tabl (more content not included)... Normal [facility] CNOVon 11-02-2024 CNOV Office Visit (DERMST ) -------- RAYA MCNAIR ([id number]) 1940 M Date Time Provider Department 11/02/24 1:20 PM CORRIE STONE During your visit today, we recorded the [...] are healing, please send your provider a NameMedia message or call . CARE FOR YOUR [...] are healing, please send your provider a NameMedia message or call . GENERAL SUN SAFETY [...] helpful. Additional information can be obtained at: [email or web address]/skin- [email or web address] -detection 2. In many cases, skin cancer can [...] mole to your health care provider. Corrie Stone PA-C 11/02/2024 2:08 PM Signed ESTABLISHED PATIENT 11/02/2024 Last Visit in Dermatology: 07/14/2024 with José Sheikh (more content not included)... Normal [facility] CRYOTHERAPY SKIN LESIONon Complexity: simple Destruction method: cryotherapy Informed consent: discussed and consent obtained Timeout: patient name, date of , surgical site, and procedure verified Lesion destroyed using liquid nitrogen: Yes Cryotherapy cycles: 2 Outcome: patient tolerated procedure well with no complications Post-procedure details: wound care instructions given [facility] SKIN / NAIL BIOPSYon 024 Type of biopsy: tangential Informed consent: discussed [...] instructions given Dressing type: bandage and petrolatum [facility] Type of biopsy: tangential Informed consent: discussed [...] instructions given Dressing type: bandage and petrolatum [facility] SURGICAL PATHOLOGYon 024 BLOCK FOR ADDITIONAL BIOMARKERS/MOLECULAR STUDIES B1 Normal [facility] Comment on above: Order Comment: Speci men Type: TISSUE SPECIMEN [facility] Address: [address] [place] [address] Performed By: #### 6 [id number] #### [facility] CLIA [id number] [address] [place] [address] [place] CASE REPORT Normal [facility] Comment on above: Order Comment: Speci men Type: TISSUE SPECIMEN [facility] Address: [address] [place] [address] Result Comment: Surg [facility] Pathology Report Case: [id number] Authorizing Provider: Corrie Stone PA-C Collected: 11/02/2024 01:45 PM Ordering Location: Dermatology Received: 11/02/2024 04:30 PM Pathologist: Celestino García MD Specimens: A) - Skin, Right Breast B) - Skin, Left Upper Back Performed By: #### 6 [id number] #### [facility] CLIA [id number] [address] [place] [address] [place] DIAGNOSIS COMMENT Normal [facility] Comment on above: Order Comment: Speci men Type: TISSUE SPECIMEN [facility] Address: [address] [place] [address] Result Comment: B. H istologic sections demonstrate a broad and asymmetric compound [...] been determined by the performing laboratory within [facility] Pathology and Laboratory Medicine Department ([facility], [facility], [facility], [facility], [facility], [facility], or [facility]) in a manner consistent with CLIA requirements. One or more of these tests have not been cleared or approved by the FDA. [facility] is regulated under CLIA as qualified to perform high-complexity testing. These tests are used for clinical purposes. They should not be regarded as investigational or for research. Positive and negative controls stain appropriately. Performed By: #### 6 [id number] #### [facility] CLIA [id number] [address] [place] [address] [place] FINAL DIAGNOSIS Normal [facility] Comment on above: Order Comment: Speci men Type: TISSUE SPECIMEN [facility] Address: [address] [place] [address] Result Comment: A. S kin, right breast, shave biopsy: - Inflamed seborrheic keratosis. B. Skin, left upper back, shave biopsy: - Melanoma, see comment and synoptic report. SDB/LX/mm/11/08/2024 Performed By: #### 6 6121-5 #### [facility] CLIA [id number] [address] [place] [address] [place] FINAL PERFORMING LAB Normal [facility] Comment on above: Order Comment: Speci men Type: TISSUE SPECIMEN [facility]ing Facility: [facility] Address: [address] [place] [address] Result Comment: Diag nostic interpretation performed at [facility], [address] [place] [address] CLIA# [id number] Political Aide: Calixto Kraft M.D. Performed By: #### 6 6121-5 #### [facility] CLIA [id number] [address] [place] [address] [place] GROSS DESCRIPTION A. Skin Normal [facility] Comment on above: Order Comment: Speci men Type: TISSUE SPECIMEN [facility] Address: [address] [place] [address] Result Comment: Rece ived in formalin is a 1.5 x 0.9 [...] 2024 10:06 PM Gross examination performed at [facility], [address] [place] [address] Performed By: #### 6 6121-5 #### [facility] CLIA [id number] [address] [place] [address] [place] SYNOPTIC REPORT Normal [facility] Comment on above: Order Comment: Speci men Type: TISSUE SPECIMEN [facility] Address: [address] [place] [address] Result Comment: DANA YMRICK MELANOMA OF THE SKIN: Biopsy MELANOMA OF THE [...] to this pathology report. pT Category: pT2a Performed By: #### 6 6121-5 #### [facility] CLIA [id number] [address] [place] [address] OF [facility] Jamie 10-17-2024 MIKHAIL Telephone (DERMST) -------- RAYA MCNAIR ([id number]) 1940 M Date Time Provider Department 10/17/24 [...] Units by mouth once daily. - vit A,C,N-Pycx-Xhuejv (PRESERVISION AREDS) 7,160 unit- 113 mg-100 unit [...] Encounter Status:Closed by GHAZAL JORGE on 10/17/24 Normal [facility] CNOVon 10-10-2024 CNOV Office Visit (UROLIN ) -------- RAYA MCNAIR ([id number]) 1940 M Date Time Provider Department 10/10/24 8:30 AM HORTENCAI GERARD During your visit today, we recorded the following information about you: Hortencia Gerard PA-C 10/10/2024 8:42 AM Addendum CHIEF COMPLAINT: [...] 400 Units by mouth once daily. vit A,C,E-Kgql-Asfdof (PRESERVISION AREDS) 7,160 unit- 113 mg-100 unit [...] Each 1 Each TOPICAL As Directed Corrie tSone PA-C 2 Each at 05/10/24 1321 REVIEW OF SYSTEMS GENERAL: No weight loss, fatigue, or fevers. HEENT: Negative for frequent or significant headaches, No changes in hearing or vision, no nose bleeds or other nasal problems. NECK: Negative for lumps, pain and significant neck swel (more content not included)... Normal [facility] No Panel Informationon 10-10 [facility] UA DIP, URINE (POC)on 2023 BILIRUBIN UA (POCT) Negative Negative [facility] CLARITY UA (POCT) Clear [facility] COLOR UA (POCT) Yellow [facility] GLUCOSE UA (POCT) Negative Negative mg/dL [facility] Hemoglobin Ql (U) Negative Negative [facility] KETONE UA (POCT) Negative Negative mg/dL [facility] LEUKOCYTES UA (POCT) Negative Negative [facility] NITRITE UA (POCT) Negative Negative [facility] PH UA (POCT) 6.5 4.5 - 8.0 [facility] Protein Ql (U) Negative Negative mg/dL [facility] SPECIFIC GRAVITY UA (POCT) 1.020 1.005 - 1.030 [facility] UROBILINOGEN UA (POCT) 0.2 Marcia l E.U./dL [facility] Location:[address], [place], [place], [address] [facility] POINT OF CARE URINE SEDIMENT B/Oon 024 BACTERIA, UR Negative Negative [facility] Casts LM.HPF (Urine sed) [#/Area] Negative Negative [facility] Leukocyte morphology finding Nom (Bld) 0 [facility] Nucleated RBC Manual cnt (Unsp spec) [#] 0 [facility] Urine sediment comments LM Matheus (Urine sed) none [facility] No Panel InformationOrdered By: Dao Raphael on 08-23-2024 [facility] [address] [place] [address] Internal Medicine Signed Patient: RAYA MCNAIR MR#: [id number] : 1940 Acct:[id number] Age/Sex: 84 / M Date of Service: 08/23/24 Loc: [facility] Visit Location: Visit Provider: Dao Raphael Jr, MD cc: Intake Vital Signs 08/23/24 10:51 Height 5 ft 9 in Weight 231 lb 4 oz BMI 34.3 BP 149/68 H BP Location Rt brachial BP Position Sitting BP Cuff Size Adult BP Source Automatic Cuff Respiration 14 Pulse 69 Pulse Source Pulse Oximeter Temp 97.4 F L Temp Source Temporal Artery Scan Pulse Oximetry (%) 97 Oxygen Delivery Method Room Air Intake/Allergies/Med Rec Visit Reasons: BMI 34.0-34.9,adult, Follow Up, Hyperlipidemia Accompanied by: Self Same As Patient Allergies gluten Allergy (Intermediate, Verified 08/23/24 10:52) Diarrhea milk Allergy (Intermediate, Verified 08/23/24 10:52) Diarrhea Home Medications - Last Reconciled 08/23/24 by Dao Raphael Jr, MD albuterol sulfate 90 mcg/actuation 2 puffs IH Q6H PRN amlodipine 10 mg PO QDAY 90 days aspirin (Adult Low Dose Aspirin) 81 mg PO QDAY atorvastatin 40 mg PO QDAY 90 days blood sugar diagnostic (Contour Test Strips) As directed blood-glucose meter (Contour Meter) As directed cetirizine 10 mg PO QDAY PRN cholecalciferol (vitamin D3) 100 mcg PO QDAY dulaglutide (Trulicity) 1.5 mg SQ QWEEK famotidine 20 mg PO QDAY hydrochlorothiazide 25 mg PO QDAY 90 days isosorbide mononitrate ER 30 mg PO QDAY 90 days metformin ER 500 mg PO BID 90 days metoprolol succinate ER 50 mg (1/2 x 100 mg) PO QDAY 90 days montelukast 10 mg PO QDAY valsartan 320 mg PO QDAY 90 days Pain Scale: 0 PHQ-2/9 Over the last 2 weeks, how often have you been bothered by any of the following problems Little interest or pleasure in doing things: not at all Feeling down, depressed, or hopeless: not at all PHQ-2: Total score: 0 Screen results: negative screen PHQ-9: Total score: 0 0-4 None-Minimal, 5-9 Mild, 10-14 Moderate, 15-19 Moderately Severe, 20-27 Severe Source: Developed by Drs. Hortencia Kovacs, Dayami Maldonado, Sanjiv Negron and colleagues, with an educational jena from [employer]. HEDIS Measures HEDIS Measures 3008f BMI Recorded: Yes 1159F Documentation of Current Med Usage: Yes Blood Pressure Result: 149/68 Systolic Blood Pressure: Systolic >/=140 Diastolic Blood Pressure: Diastolic <80 [facility] Medical History (Updated 08/23/24 @ 11:01 by Allison Thomas MA) Varicocele present on ultrasound of scrotum Encounter for removal of skin lesion Surgical History History of tonsillectomy and adenoidectomy (~1946) H/O left wrist surgery (~2002) Hx of cholecystectomy (~2004) History of cataract surgery History of prostate surgery (~06/27/19) H/O heart artery stent (~03/19/21) Family History Father Coronary artery disease Social History Smoking Status: Never smoker Alcohol intake: never Substance use type: does not use Marital status: Number of children: 3 Highest education level completed: Associate degree: occupational, technical, vocational program Current occupational status: retired Seatbelt use: always Current diet type/program: regular Caffeine: Yes HPI Obesity History of Present Illness Associated symptoms: Reports urinary frequency; Denies headache(s), anxiety, edema, dyspnea, chest pain, nausea or vomiting Obesity Lab Values: Albumin 4.3 g/dL (3.5-5.0) 01/26/24 Hgb 13.4 g/dL (13.5-16.5) L 01/26/24 Hct 41.5 % (41.0-50.0) 01/26/24 Sodium 139 mEq/L (135-145) 01/26/24 Potassium 4.6 mEq/L (3.6-5.0) 01/26/24 Glucose 90 mg/dL (70-99) 01/26/24 Hemoglobin A1c 5.9 % (4.0-6.0) 06/25/23 BUN 22 mg/dL (7-25) 01/26/24 Hyperlipidemia 3 1/2 month follow-up ... wants to discuss energy levels.. had sonogram of testes... copies given to Krista Type of Visit: follow-up elevated lipid profile Denies headache(s), chest pain or dyspnea Diet type: low sodium and low fat Medication compliance: is good Most recent cardiac tests: No Data to Display Review of Systems Status of ROS 10 or more systems reviewed and unremark able except as noted in history and below Constitutional no fatigue Eyes no change in vision Ears, nose, mouth, and throat no throat pain, no difficulty swallowing, no mouth pain (no mouth ulcers, no oral abnormalities), no dry mouth, no ear pain, no change in hearing and no nose bleeds Cardiovascular no chest pain, no palpitations, no edema, no swelling of feet/ankles and no lightheadedness Respiratory no shortness of breath, no cough and no wheezing Gastrointestinal no abdominal pain, no nausea, no vomiting, no diarrhea and no difficulty swallowing Genitourinary report of urinary frequency, report of urinary urgency and reportof urinary dribbling; no blood in urine Musculoskeletal report of back pain; no extremity swellin (more content not included)... [facility] Work Phone: CRYOTHERAPY SKIN LESIONon Complexity: simple Destruction method: cryotherapy Informed consent: discussed and consent obtained Timeout: patient name, date of , surgical site, and procedure verified Lesion destroyed using liquid nitrogen: Yes Cryotherapy cycles: 2 Outcome: patient tolerated procedure well with no complications Post-procedure details: wound care instructions given Additional details: I discussed treatment options with the patient. The risks of blistering, infection, scarring, damage to underlying structures and potential need for future procedures discussed. The patient verbalized understanding and desires us to proceed. [facility] No Panel InformationOrdered By: Dao Raphael on 05-24-2024 [facility] [address] [place] [address] Internal Medicine Signed Patient: RAYA MCNAIR MR#: [id number] : 1940 Acct:[id number] Age/Sex: 84 / M Date of Service: 05/24/24 Loc: OWEN Visit Location: Visit Provider: Dao Raphael Jr, MD cc: Intake Vital Signs 05/24/24 11:05 Height 5 ft 9 in Weight 232 lb BMI 34.4 BP 137/67 BP Location Rt brachial BP Position Sitting BP Cuff Size Adult BP Source Automatic Cuff Respiration 12 Pulse 70 Pulse Source Pulse Oximeter Temp 97.2 F L Temp Source Temporal Artery Scan Pulse Oximetry (%) 98 Oxygen Delivery Method Room Air Intake/Allergies/Med Rec Visit Reasons: BMI 34.0-34.9,adult, Hypertension Accompanied by: Self Same As Patient Allergies gluten Allergy (Intermediate, Verified 05/24/24 11:07) Diarrhea milk Allergy (Intermediate, Verified 05/24/24 11:07) Diarrhea Home Medications - Last Reconciled 05/24/24 by Dao Raphael Jr, MD albuterol sulfate 90 mcg/actuation 2 puffs IH Q6H PRN amlodipine 10 mg PO QDAY 90 days aspirin (Adult Low Dose Aspirin) 81 mg PO QDAY atorvastatin 40 mg PO QDAY 90 days blood sugar diagnostic (Contour Test Strips) As directed blood-glucose meter (Contour Meter) As directed cetirizine 10 mg PO QDAY cholecalciferol (vitamin D3) 100 mcg PO QDAY dulaglutide (Trulicity) 0.75 mg SQ QWEEK famotidine 20 mg PO QDAY hydrochlorothiazide 25 mg PO QDAY isosorbide mononitrate ER 30 mg PO QDAY 90 days metformin ER 500 mg PO BID 90 days metoprolol succinate ER 50 mg (1/2 x 100 mg) PO QDAY 90 days montelukast 10 mg PO QDAY valsartan 320 mg PO QDAY 90 days Is patient in pain: No Fall Risk assessment done this year?: Yes PHQ-2/9 Over the last 2 weeks, how often have you been bothered by any of the following problems Little interest or pleasure in doing things: not at all Feeling down, depressed, or hopeless: not at all PHQ-2: Total score: 0 Screen results: negative screen Trouble falling or staying asleep, or sleeping too much: not at all Feeling tired or having little energy: not at all Poor appetite or overeating: not at all Feeling bad about yourself - or that you are a failure or have let yourself or your family down: not at all Trouble concentrating on things, such as reading the newspaper or watching television: not at all Moving or speaking so slowly that other people could have noticed. Or the opposite - being so fidgety or restless that you have been moving around a lot more than usual: not at all Thoughts that you would be better off or of hurting yourself in some way: not at all PHQ-9: Total score: 0 0-4 None-Minimal, 5-9 Mild, 10-14 Moderate, 15-19 Moderately Severe, 20-27 Severe If you checked off any problems, how difficult have those problems made it for you to do your work, take care of things at home, or get along with other people: not difficult at all Source: Developed by Drs. Hortencia Kovacs, Dayami Maldonado, Sanjiv Negron and colleagues, with an educational jena from [employer]. HEDIS Measures HEDIS Measures 3008f BMI Recorded: Yes 1159F Documentation of Current Med Usage: Yes Blood Pressure Result: 137/67 Systolic Blood Pressure: Systolic 130-139 Diastolic Blood Pressure: Diastolic <80 PFSH Medical History Encounter for removal of skin lesion Surgical History History of tonsillectomy and adenoidectomy (~194) H/O left wrist surgery (~2002) Hx of cholecystectomy (~2004) History of cataract surgery History of prostate surgery (~06/27/19) H/O heart artery stent (~03/19/21) Family History Father Coronary artery disease Social History Smoking Status: Never smoker Alcohol intake: never Substance use type: does not use Marital status: Number of children: 3 Highest education level completed: Associate degree: occupational, technical, vocational program Current occupational status: retired Seatbelt use: always Current diet type/program: regular Caffeine: Yes HPI Obesity History of Present Illness Associated symptoms: Reports urinary frequency; Denies headache(s), anxiety, edema, dyspnea, chest pain, nausea or vomiting Obesity Lab Values: Albumin 4.3 g/dL (3.5-5.0) 01/26/24 Hgb 13.4 g/dL (13.5-16.5) L 01/26/24 Hct 41.5 % (41.0-50.0) 01/26/24 Sodium 139 mEq/L (135-145) 01/26/24 Potassium 4.6 mEq/L (3.6-5.0) 01/26/24 Glucose 90 mg/dL (70-99) 01/26/24 Hemoglobin A1c 5.9 % (4.0-6.0) 06/25/23 BUN 22 mg/dL (7-25) 01/26/24 Hypertension (HTN)/Elevated BP Presentation Healthcare encounters since last office visit: none BP at target: Yes BP target: less than 130/80 BP status: improving Target organ damage: No [id number] BP monitoring: home monitoring and health professional Symptoms Details: this am at home 155/79,a few days prior 146/72 General symptoms: Denies: fatigue, anxiety or irri (more content not included)... [facility] Work Phone: ALT (SGPT) ser/plasOrdered B y: Dao Raphael on 01-26-2024 ALT [Catalytic activity/Vol] 16 U/L 7- [facility] Absolute lymphocyte countOrd ered By: Dao Hernandezis on 01-26-2024 Lymphocytes Auto (Unsp spec) [#/Vol] 2.5 10*3/uL 1.10-4.80 [facility] Albumin [Mass/volume] in Ser um or PlasmaOrdered By: Dao Raphael on 01-26-2024 Albumin [Mass/Vol] 4.3 g/dL 3.5-5.0 [facility] Albumin/Globulin [Mass Ratio ] in Serum or PlasmaOrdered By: Dao Raphael on 01-26-2024 Albumin/Globulin [Mass ratio] 2.2 {ratio} 1.1-2.2 [facility] Alkaline phosphatase [Enzyma tic activity/volume] in Serum or PlasmaOrdered By: Dao Raphael on 01-26-2024 ALP [Catalytic activity/Vol] 94 U/L 42-121 [facility] Aspartate aminotransferase [ Enzymatic activity/volume] in Serum or PlasmaOrdered By: Dao Raphael on 01-26-2024 AST [Catalytic activity/Vol] 17 U/L 10-41 [facility] Basophils Auto (Bld) [#/Vol] Ordered By: Dao Raphael on 01-26-2024 Basophils (Bld) [#/Vol] 11.7 10*3/uL 4.5-11.0 [facility] Basophils (Bld) [#/Vol] 0.1 10*3/uL 0.00-0.20 [facility] Basophils/100 WBC Auto (Bld) Ordered By: Dao Raphael on 01-26-2024 Basophils/100 WBC (Bld) 0.8 % 0.0-1.5 [facility] Bilirubin.total [Mass/volume ] in Serum or PlasmaOrdered By: Dao Raphael on 01-26-2024 Bilirubin [Mass/Vol] 0.5 mg/dL 0.3-1.[address] [facility] CBC W Auto Differential pane l (Bld)on 01-26-2024 CBC W Reflex Manual Differential panel (Bld) AUTO DIFF Normal [facility] ([place]) Comment on above: Performed By: #### 5 7021-8 #### [facility] [address] [place] [address] Platelets (Bld) [#/Vol] 258 10*3/uL Normal 150-450 [facility] ([place] Comment on above: Result Comment: Plat elet agglutination seen on slide review. Actual platelet count may be higher than reported. Recommend future testing include citrated sample for evaluation. Performed By: #### 5 7021-8 #### [address] [address] Basophils (Bld) [#/Vol] 0.1 10*3/uL Normal 0.00-0.20 [facility] ([place] Comment on above: Performed By: #### 5 7021-8 #### [address] [address] Basophils/100 WBC (Bld) 0.8 % Normal 0.0-1.5 [facility] ([place] Comment on above: Performed By: #### 5 7021-8 #### [address] [address] Eosinophils (Bld) [#/Vol] 0.4 10*3/uL High 0.00-0.33 [facility] ([place] Comment on above: Performed By: #### 5 7021-8 #### [address] [address] Eosinophils/100 WBC (Bld) 3.3 % High 0.0-3.0 [facility] ([place] Comment on above: Performed By: #### 5 7021-8 #### [address] [address] Erythrocyte distribution width (RBC) [Ratio] 14.4 % High 10.9-14.3 [facility] ([place] Comment on above: Performed By: #### 5 7021-8 #### [address] [address] Hematocrit (Bld) [Volume fraction] 41.5 % Normal 41.0-50.0 [facility] ([place] Comment on above: Performed By: #### 5 7021-8 #### [address] [address] Hemoglobin (Bld) [Mass/Vol] 13.4 g/dL Low 13.5-16.5 [facility] ([place] Comment on above: Performed By: #### 5 7021-8 #### [facility] [address] [place] [address] Lymphocytes Auto (Unsp spec) [#/Vol] 2.5 10*3/uL Normal 1.10-4.80 [facility] ([place] Comment on above: Performed By: #### 5 7021-8 #### [facility] [address] [place] [address] Lymphocytes/100 WBC (Bld) 21.7 % Low 24.0-44.0 [facility] ([place] Comment on above: Performed By: #### 5 7021-8 #### [facility] [address] [place] [address] MCH (RBC) [Entitic mass] 28.3 pg Normal 28.0-34.0 [facility] ([place] Comment on above: Performed By: #### 5 7021-8 #### [facility] [address] [place] [address] MCHC (RBC) [Mass/Vol] 32.3 g/dL Low 33.0-37.0 [facility] ([place]) Comment on above: Performed By: #### 5 7021-8 #### [facility] [address] [place] [address] MCV (RBC) [Entitic vol] 87.5 fL Normal 80.0-100.0 [facility] ([place]) Comment on above: Performed By: #### 5 7021-8 #### [facility] [address] [place] [address] Monocytes (Bld) [#/Vol] 0.9 10*3/uL High 0.20-0.70 [facility] ([place] Comment on above: Performed By: #### 5 7021-8 #### [facility] [address] [place] [address] Monocytes/100 WBC (Bld) 7.5 % Normal 3.4-9.0 [facility] ([place] Comment on above: Performed By: #### 5 7021-8 #### [facility] [address] [place] [address] Neutrophils (Bld) [#/Vol] 7.8 10*3/uL Normal 1.83-8.70 [facility] ([place] Comment on above: Performed By: #### 5 7021-8 #### [facility] [address] [place] [address] Neutrophils/100 WBC (Bld) 66.7 % Normal 40.0-74.0 [facility] ([place] Comment on above: Performed By: #### 5 7021-8 #### [facility] [address] [place] [address] Platelet mean volume (Bld) [Entitic vol] 9.4 fL Normal 7.4-10.4 [facility] ([place] Comment on above: Performed By: #### 5 7021-8 #### [facility] [address] [place] [address] RBC (Bld) [#/Vol] 4.75 10*6/uL Normal 4.50-5.50 [facility] ([place] Comment on above: Performed By: #### 5 7021-8 #### [facility] [address] [place] [address] Carbon dioxide, total [Moles /volume] in Serum or PlasmaOrdered By: Dao Raphael on 01-26-2024 CO2 [Moles/Vol] 26 mmol/L 21-31 [facility] Chloride [Moles/volume] in S tatiana or PlasmaOrdered By: Dao Raphael on 01-26-2024 Chloride [Moles/Vol] 105 mmol/L 98-[address] [facility] Comprehensive metabolic 2000 panelon 01-26-2024 Albumin [Mass/Vol] 4.3 g/dL Normal 3.5-5.0 [facility] ([place]) Comment on above: Performed By: #### 3 016-3, LIPID, [id number] #### [facility] [address] [place] [address] Albumin/Globulin [Mass ratio] 2.2 {ratio} Normal 1.1-2.2 [facility] ([place]) Comment on above: Performed By: #### 3 016-3, LIPID, [id number] #### [facility] [address] [place] [address] ALP [Catalytic activity/Vol] 94 U/L Normal 42-121 [facility] ([place]) Comment on above: Performed By: #### 3 016-3, LIPID, [id number] #### [facility] [address] [place] [address] ALT [Catalytic activity/Vol] 16 U/L Normal 7-52 [facility] ([place]) Comment on above: Performed By: #### 3 016-3, LIPID, [id number] #### [facility] [address] [place] [address] Anion gap [Moles/Vol] 8 mmol/L Normal 4-14 [facility] ([place]) Comment on above: Performed By: #### 3 016-3, LIPID, [id number] #### [facility] [address] [place] [address] AST [Catalytic activity/Vol] 17 U/L Normal 10-41 [facility] ([place] Comment on above: Performed By: #### 3 016-3, LIPID, [id number] #### [facility] [address] [place] [address] Bilirubin [Mass/Vol] 0.5 mg/dL Normal 0.3-1.[address] [facility] ([place]) Comment on above: Performed By: #### 3 016-3, LIPID, [id number] #### [facility] [address] [place] [address] Calcium [Mass/Vol] 9.2 mg/dL Normal 8.5-10.5 [facility] ([place]) Comment on above: Performed By: #### 3 016-3, LIPID, [id number] #### [facility] [address] [place] [address] Chloride [Moles/Vol] 105 mmol/L Normal 98-[address] [facility] ([place]) Comment on above: Performed By: #### 3 016-3, LIPID, [id number] #### [facility] [address] [place] [address] CO2 [Moles/Vol] 26 mmol/L Normal 21-31 [facility] ([place] Comment on above: Performed By: #### 3 016-3, LIPID, [id number] #### [address] [address] Creatinine [Moles/Vol] 0.86 mg/dL Normal 0.70-1.30 [facility] ([place]) Comment on above: Performed By: #### 3 016-3, LIPID, [id number] #### [address] [address] Creatinine and Glomerular filtration rate.predicted panel (S/P/Bld) 103 mL/min Normal >60 [facility] ([place]) Comment on above: Performed By: #### 3 016-3, LIPID, [id number] #### [address] [address] GFR/1.73 sq M.predicted among non-blacks MDRD (S/P/Bld) [Vol rate/Area] 85 mL/min/{1.73_m2} Normal >60 [facility] ([place]) Comment on above: Performed By: #### 3 016-3, LIPID, [id number] #### [address] [address] Globulin (S) [Mass/Vol] 2.0 g/dL Normal 1.9-3.9 [facility] ([place]) Comment on above: Performed By: #### 3 016-3, LIPID, [id number] #### [facility] [address] [place] [address] Glucose [Mass/Vol] 90 mg/dL Normal 70-99 [facility] ([place]) Comment on above: Performed By: #### 3 016-3, LIPID, [id number] #### [facility] [address] [place] [address] Potassium [Moles/Vol] 4.6 mmol/L Normal 3.6-5.0 [facility] ([place]) Comment on above: Performed By: #### 3 016-3, LIPID, [id number] #### [facility] [address] [place] [address] Protein [Mass/Vol] 6.3 g/dL Normal 6.2-8.0 [facility] ([place] Comment on above: Performed By: #### 3 016-3, LIPID, [id number] #### [facility] [address] [place] [address] Sodium [Moles/Vol] 139 mmol/L Normal 135-145 [facility] ([place] Comment on above: Performed By: #### 3 016-3, LIPID, [id number] #### [address] [address] Urea nitrogen [Mass/Vol] 22 mg/dL Normal 7-25 [facility] ([place] Comment on above: Performed By: #### 3 016-3, LIPID, [id number] #### [address] [address] Creatinine and Glomerular fi ltration rate.predicted panel (S/P/Bld)Ordered By: Dao Raphael on 01-26-2024 GFR/1.73 sq M.predicted MDRD (S/P/Bld) [Vol rate/Area] 103 mL/min/{1.73_m2} >60 [facility] Eosinophils Auto (Bld) [#/Vo l]Ordered By: Dao Raphael on 01-26-2024 Eosinophils (Bld) [#/Vol] 0.4 10*3/uL 0.00-0.33 [facility] Eosinophils/100 WBC Auto (Bl d)Ordered By: Dao Raphael on 01-26-2024 Eosinophils/100 WBC (Bld) 3.3 % 0.0-3.0 [facility] Erythrocyte distribution wid th Auto (RBC) [Ratio]Ordered By: Dao Raphael on 01-26-2024 Erythrocyte distribution width (RBC) [Ratio] 14.4 % 10.9-14.3 [facility] Estimated glomerular filtrat ion rate (GFR) non- AmericanOrdered By: Dao Raphael on 01-26-2024 GFR/1.73 sq M.predicted among non-blacks MDRD (S/P/Bld) [Vol rate/Area] 85 mL/min/{1.73_m2} >60 [facility] Hematocrit Auto (Bld) [Volum e fraction]Ordered By: Dao Raphael on 01-26-2024 Hematocrit (Bld) [Volume fraction] 41.5 % 41.0-50.0 [facility] Hemoglobin [Mass/volume] in BloodOrdered By: Dao Raphael on 01-26-2024 Hemoglobin (Bld) [Mass/Vol] 13.4 g/dL 13.5-16.5 [facility] Lipid Panelon 01-26-2024 Cholesterol [Mass/Vol] 104 mg/dL Normal 0-199 [facility] ([place]) Comment on above: Performed By: #### 3 016-3, LIPID, [id number] #### [facility] [address] [place] [address] Cholesterol in HDL [Mass/Vol] 38 mg/dL Low >39 [facility] ([place]) Comment on above: Performed By: #### 3 016-3, LIPID, [id number] #### [facility] [address] [place] [address] Cholesterol in LDL [Mass/Vol] 55 mg/dL Normal 0-99 [facility] ([place]) Comment on above: Performed By: #### 3 016-3, LIPID, 74729-0 #### [facility] [address] [place] [address] Cholesterol in LDL/Cholesterol in HDL [Mass ratio] 1.4 {ratio} Normal [facility] ([place]) Comment on above: Result Comment: MEN WOMEN 1/2 Average Risk 1.00 1.47 Average Risk 3.55 3.22 2X Average Risk 6.25 5.03 3X Average Risk 7.99 6.14 Performed By: #### 3 016-3, LIPID, [id number] #### [facility] [address] [place] [address] Triglyceride [Mass/Vol] 72 mg/dL Normal 0-149 [facility] ([place]) Comment on above: Performed By: #### 3 016-3, LIPID, 21682-9 #### [facility] [address] [place] [address] Lymphocytes/100 WBC Auto (Bl d)Ordered By: Dao Raphael on 01-26-2024 Lymphocytes/100 WBC (Bld) 21.7 % 24.0-44.0 [facility] MCH Auto (RBC) [Entitic mass ]Ordered By: Dao Raphael on 01-26-2024 MCH (RBC) [Entitic mass] 28.3 pg 28.0-34.0 [facility] MCHC Auto (RBC) [Mass/Vol]Or dered By: Dao Raphael on 01-26-2024 MCHC (RBC) [Mass/Vol] 32.3 g/dL 33.0-37.0 [facility] MCV (mean corpuscular volume ) determinationOrdered By: Dao Raphael on 01-26-2024 MCV (RBC) [Entitic vol] 87.5 fL 80.0-100.0 [facility] Monocytes Auto (Bld) [#/Vol] Ordered By: Dao Raphael on 01-26-2024 Monocytes (Bld) [#/Vol] 0.9 10*3/uL 0.20-0.70 [facility] Monocytes/100 WBC Auto (Bld) Ordered By: Dao Raphael on 01-26-2024 Monocytes/100 WBC (Bld) 7.5 % 3.4-9.0 [facility] Neutrophils Auto (Bld) [#/Vo l]Ordered By: Dao Raphael on 01-26-2024 Neutrophils (Bld) [#/Vol] 7.8 10*3/uL 1.83-8.70 [facility] Neutrophils/100 WBC Auto (Bl d)Ordered By: Dao Raphael on 01-26-2024 Neutrophils/100 WBC (Bld) 66.7 % 40.0-74.0 [facility] Platelet mean volume Auto (B ld) [Entitic vol]Ordered By: Dao Raphael on 01-26-2024 Platelet mean volume (Bld) [Entitic vol] 9.4 fL 7.4-10.4 [facility] Platelets Auto (Bld) [#/Vol] Ordered By: Dao Raphael on 01-26-2024 Platelets (Bld) [#/Vol] 258 10*3/uL 150-450 [facility] Comment on above: Platelet agglutinati on seen on slide review. Actual platelet count may be higher than reported. Recommend future testing include citrated sample for evaluation. Potassium [Moles/volume] in Serum or PlasmaOrdered By: Dao Raphael on 01-26-2024 Potassium [Moles/Vol] 4.6 mmol/L 3.6-5.0 [facility] RBC Auto (Bld) [#/Vol]Ordere d By: Dao Raphael on 01-26-2024 RBC (Bld) [#/Vol] 4.75 10*6/uL 4.50-5.50 [facility] Serum globulin measurement ( mass/volume)Ordered By: Dao Raphael on 01-26-2024 Globulin (S) [Mass/Vol] 2.0 g/dL 1.9-3.9 [facility] Serum glucose measurement (m ass/volume)Ordered By: Dao Raphael on 01-26-2024 Glucose [Mass/Vol] 90 mg/dL 70-99 [facility] Serum or plasma anion gap de termination (moles/volume)Ordered By: Dao Raphael on 01-26-2024 Anion gap [Moles/Vol] 8 mmol/L 4-14 [facility] Serum or plasma calcium nii urement (mass/volume)Ordered By: Dao Raphael on 01-26-2024 Calcium [Mass/Vol] 9.2 mg/dL 8.5-10.5 [facility] Serum or plasma cholesterol in LDL measurement (mass/volume)Ordered By: Dao Raphael on 01-26-2024 Cholesterol in LDL [Mass/Vol] 55 mg/dL 0-99 [facility] Serum or plasma cholesterol measurement (mass/volume)Ordered By: Dao Raphael on 01-26-2024 Cholesterol [Mass/Vol] 104 mg/dL 0-199 [facility] Serum or plasma creatinine m easurement (moles/volume)Ordered By: Dao Raphael on 01-26-2024 Creatinine [Moles/Vol] 0.86 mg/dL 0.70-1.30 [facility] Serum or plasma high density lipoprotein (HDL) cholesterol measurementOrdered By: Dao Raphael on 01-26-2024 Cholesterol in HDL [Mass/Vol] 38 mg/dL >39 [facility] Serum or plasma low density lipoprotein (LDL) cholesterol/high density lipoprotein (HOrdered By: Dao Raphael on 01-26-2024 Cholesterol in LDL/Cholesterol in HDL [Mass ratio] 1.4 {ratio} [facility] Comment on above: MEN WOMEN1/2 Average Risk 1.00 1.47Average Risk 3.55 3.222X Average Risk 6.25 5.033X Average Risk 7.99 6.14 Serum or plasma sodium measu rement (moles/volume)Ordered By: Dao Raphael on 01-26-2024 Sodium [Moles/Vol] 139 mmol/L 135-145 [facility] Serum or plasma thyroid stim ulating hormone (TSH) measurementOrdered By: Dao Raphael on 01-26-2024 TSH Qn 1.40 uIU/mL 0.34-5.60 [facility] Serum or plasma triglyceride measurement (mass/volume)Ordered By: Dao Raphael on 01-26-2024 Triglyceride [Mass/Vol] 72 mg/dL 0-149 [facility] Serum or plasma urea nitroge n measurement (mass/volume)Ordered By: Dao Raphael on 01-26-2024 Urea nitrogen [Mass/Vol] 22 mg/dL 7-25 [facility] TSH SerPl-aCncon 01-26-2024 TSH Qn 1.40 uIU/mL Normal 0.34-5.60 [facility] ([place]) Comment on above: Performed By: #### 3 016-3, LIPID, 70331-5 #### [facility] [address] [place] [address] Total protein bloodOrdered B y: Dao Raphael on 01-26-2024 Protein [Mass/Vol] 6.3 g/dL 6.2-8.0 [facility] Laboratory - Hematology and Cell countson 2024 HbA1c (Bld) [Mass fraction] 5.6 % 4.2-6.3 [facility] XR Chest PA and Lateralon IMPRESSION: No acute radiographic abnormality. Carpenter: PSCLzi Transcribe Date/Time: Nov 25 2023 8:45A Dictated by : KIMBERLEY RAMOS MD This examination was interpreted and the report reviewed and electronically signed by: KIMBERLEY RAMOS MD on Nov 25 2023 8:46AM [facility] DIVISION OF RADIOLOGY * * *Final Report* * * DATE OF EXAM: Nov 25 2023 8:42AM WOX 5291 - XR CHEST 2V FRONTAL/LAT / PROCEDURE REASON: Acute cough * * * * Physician Interpretation * * * * EXAMINATION: CHEST RADIOGRAPH (2 VIEW FRONTAL & LATERAL) CLINICAL HISTORY: Acute cough MQ: XC2_6 EXAM DATE/TIME: 11/25/2023 8:42 AM COMPARISON: No relevant prior studies available. RESULT: Lines, tubes, and devices: None. Lungs and pleura: No consolidation. No lung mass. No pleural effusion. No pneumothorax. Cardiomediastinal silhouette: The cardiac silhouette and mediastinal contour are unremarkable in appearance. Bones and soft tissues: The spine shows degenerative changes. DIVISION OF RADIOLOGY Provider, [facility] - 11/25/2023 * * *Final Report* * * DATE OF EXAM: Nov 25 2023 8:42AM WOX 5291 - XR CHEST 2V FRONTAL/LAT / PROCEDURE REASON: Acute cough * * * * Physician Interpretation * * * * EXAMINATION: CHEST RADIOGRAPH (2 VIEW FRONTAL & LATERAL) CLINICAL HISTORY: Acute cough MQ: XC2_6 EXAM DATE/TIME: 11/25/2023 8:42 AM COMPARISON: No relevant prior studies available. RESULT: Lines, tubes, and devices: None. Lungs and pleura: No consolidation. No lung mass. No pleural effusion. No pneumothorax. Cardiomediastinal silhouette: The cardiac silhouette and mediastinal contour are unremarkable in appearance. Bones and soft tissues: The spine shows degenerative changes. IMPRESSION IMPRESSION: No acute radiographic abnormality. Carpenter: PSCB Transcribe Date/Time: Nov 25 2023 8:45A Dictated by : KIMBERLEY RAMOS MD This examination was interpreted and the report reviewed and electronically signed by: KIMBERLEY RAMOS MD on Nov 25 2023 8:46AM EST [facility] Radiology Study observation (narrative) [facility] XR Chest PA and LateralOrder ed By: [facility] Provider on 11-25-2023 [facility] SURGICAL PATHOLOGY SKIN ONLY on 07-01-2023 Case Report Surgical Pathology Report Case: [id number] Authorizing Provider: José Sheikh, Collected: 06/29/2023 05:36 PM BUYING AGENT.[employer]ING [employer]ER Ordering Location: Dermatology Received: 06/30/2023 08:29 AM Pathologist: Rafy Guardado MD, PhD Specimen: SKIN, Right Shoulder [facility] Diagnosis Comment Histologic sections demonstrate an eroded and spongiotic epidermis, with prominent papillary dermal edema. There is erythrocyte extravasation and an increased number of small blood vessels within the superficial dermis. There is an associated perivascular mixed inflammatory infiltrate, containing lymphocytes, histiocytes, plasma cells and eosinophils. The clinical images and history is reviewed. Overall, the histologic features is consistent with a subacute spongiotic dermatitis. The clinical differential diagnosis includes a contact dermatitis versus eczematous dermatitis versus a drug reaction. Clinical correlation remains essential. [facility] FINAL DIAGNOSIS A. Skin, right shoul chaz, punch biopsy: - Subacute spongiotic dermatitis with eosinophils, see comment. APF/CATHY/jaswinder 07/01/2023 [facility] Gross Description A. SKIN Received in formalin is a cylindrical segment of skin and subcutaneous tissue measuring 0.5 x 0.4 x 0.5 cm. On the skin surface there is a 0.5 cm, kaur-brown, pigmented and flat area. The specimen is bisected. Totally submitted in formalin in one cassette. Gross examination performed at [facility], [address] [place] [id number] 06/30/2023 1:20 PM [facility] Performing Lab Diagnostic interpretation performed at [facility], [address] [place], [place] [address] CLIA# [id number] Political Aide: Calixto Kraft M.D. [facility] Hemoglobin A1con 06-26-2023 Average glucose Estimated from glycated hemoglobin (Bld) [Mass/Vol] 123 mg/dL Normal [facility] ([place]) Comment on above: Performed By: #### H GBA1C #### [facility] [address] [place] [address] HbA1c (Bld) [Mass fraction] 5.9 % Normal 4.0-6.0 [facility] ([place]) Comment on above: Performed By: #### H GBA1C #### [facility] [address] [place] [address] ALT (SGPT) ser/plasOrdered B y: Dao Raphael on 06-25-2023 ALT [Catalytic activity/Vol] 18 U/L Normal 10-63 [facility] Comment on above: Performed By: #### 2 4323-8, LIPID, 3016-3 #### [facility] [address] [place] [address] Absolute lymphocyte countOrd ered By: Dao Raphael on 06-25-2023 Lymphocytes Auto (Unsp spec) [#/Vol] 1.9 10*3/uL Normal 1.10-4.80 [facility] Comment on above: Performed By: #### 5 7021-8 #### [facility] [address] [place] [address] Absolute monocyte countOrder ed By: Dao Raphael on 06-25-2023 Monocytes (Bld) [#/Vol] 0.7 10*3/uL Normal 0.20-0.70 [facility] Comment on above: Performed By: #### 5 7021-8 #### [address] [address] Albumin [Mass/volume] in Ser um or PlasmaOrdered By: Dao Raphael on 06-25-2023 Albumin [Mass/Vol] 4.1 g/dL Normal 3.4-4.8 [facility] Comment on above: Performed By: #### 2 4323-8, LIPID, 6-3 #### [facility] [address] [place] [address] Albumin/Globulin [Mass Ratio ] in Serum or PlasmaOrdered By: Dao Raphael on 06-25-2023 Albumin/Globulin [Mass ratio] 1.4 {ratio} Normal 1.1-2.2 [facility] Comment on above: Performed By: #### 2 4323-8, LIPID, 6-3 #### [facility] [address] [place] [address] Alkaline phosphatase [Enzyma tic activity/volume] in Serum or PlasmaOrdered By: Dao Raphael on 06-25-2023 ALP [Catalytic activity/Vol] 81 U/L Normal 42-121 [facility] Comment on above: Performed By: #### 2 4323-8, LIPID, 6-3 #### [address] [address] Aspartate aminotransferase [ Enzymatic activity/volume] in Serum or PlasmaOrdered By: Dao Raphael on 06-25-2023 AST [Catalytic activity/Vol] 16 U/L Normal 10-41 [facility] Comment on above: Performed By: #### 2 4323-8, LIPID, 6-3 #### [address] [address] Automated basophil countOrde red By: Dao Raphael on 06-25-2023 Basophils (Bld) [#/Vol] 0.1 10*3/uL Normal 0.00-0.20 [facility] Comment on above: Performed By: #### 5 7021-8 #### [facility] [address] [place] [address] Automated blood erythrocyte count (number/volume)Ordered By: Dao Raphael on 06-25-2023 RBC (Bld) [#/Vol] 4.29 10*6/uL Low 4.50-5.50 [facility] Comment on above: Performed By: #### 5 7021-8 #### [address] [address] Automated blood hematocrit ( percentage)Ordered By: Dao Raphael on 06-25-2023 Hematocrit (Bld) [Volume fraction] 39.0 % Low 41.0-50.0 [facility] Comment on above: Performed By: #### 5 7021-8 #### [address] [address] Automated blood lymphocytes/ 100 leukocytesOrdered By: Dao Raphael on 06-25-2023 Lymphocytes/100 WBC (Bld) 20.0 % Low 24.0-44.0 [facility] Comment on above: Performed By: #### 5 7021-8 #### [address] [address] Automated blood neutrophil c ountOrdered By: Dao Raphael on 06-25-2023 Neutrophils (Bld) [#/Vol] 6.5 10*3/uL Normal 1.83-8.70 [facility] Comment on above: Performed By: #### 5 7021-8 #### [facility] [address] [place] [address] Automated blood platelet cou ntOrdered By: Dao Raphael on 06-25-2023 Platelets (Bld) [#/Vol] 272 10*3/uL Normal 150-450 [facility] Comment on above: Performed By: #### 5 7021-8 #### [address] [address] Automated blood platelet silvia n volume measurementOrdered By: Dao Raphael on 06-25-2023 Platelet mean volume (Bld) [Entitic vol] 9.9 fL Normal 7.4-10.4 [facility] Comment on above: Performed By: #### 5 7021-8 #### [facility] [address] [place] [address] Automated eosinophil countOr dered By: Dao Raphael on 06-25-2023 Eosinophils (Bld) [#/Vol] 0.4 10*3/uL High 0.00-0.33 [facility] Comment on above: Performed By: #### 5 7021-8 #### [facility] [address] [place] [address] Automated erythrocyte distri bution width ratioOrdered By: Dao Raphael on 06-25-2023 Erythrocyte distribution width (RBC) [Ratio] 15.3 % High 10.9-14.3 [facility] Comment on above: Performed By: #### 5 7021-8 #### [facility] [address] [place] [address] Automated erythrocyte mean c orpuscular hemoglobin (mass per erythrocyte)Ordered By: Dao Raphael on 06-25-2023 MCH (RBC) [Entitic mass] 30.3 pg Normal 28.0-34.0 [facility] Comment on above: Performed By: #### 5 7021-8 #### [facility] [address] [place] [address] Automated erythrocyte mean c orpuscular hemoglobin concentration measurement (mass/volOrdered By: Dao Raphael on 06-25-2023 MCHC (RBC) [Mass/Vol] 33.3 g/dL Normal 33.0-37.0 [facility] Comment on above: Performed By: #### 5 7021-8 #### [facility] [address] [place] [address] Automated neutrophil %Ordere d By: Dao Raphael on 06-25-2023 Neutrophils/100 WBC (Bld) 67.7 % Normal 40.0-74.0 [facility] Comment on above: Performed By: #### 5 7021-8 #### [facility] [address] [place] [address] Basophil %Ordered By: Dao Raphael on 06-25-2023 Basophils/100 WBC (Bld) 1.3 % Normal 0.0-1.5 [facility] Comment on above: Performed By: #### 5 7021-8 #### [facility] [address] [place] [address] Basophils Auto (Bld) [#/Vol] Ordered By: Dao Raphael on 06-25-2023 Basophils (Bld) [#/Vol] 9.7 10*3/uL 4.5-11.0 [facility] Bilirubin.total [Mass/volume ] in Serum or PlasmaOrdered By: Dao Raphael on 06-25-2023 Bilirubin [Mass/Vol] 0.7 mg/dL Normal 0.3-1.[address] [facility] Comment on above: Performed By: #### 2 4323-8, LIPID, 3016-3 #### [facility] [address] [place] [address] Carbon dioxide, total [Moles /volume] in Serum or PlasmaOrdered By: Dao Raphael on 06-25-2023 CO2 [Moles/Vol] 28 mmol/L Normal 21-31 [facility] Comment on above: Performed By: #### 2 4323-8, LIPID, 3016-3 #### [facility] [address] [place] [address] Chloride [Moles/volume] in S tatiana or PlasmaOrdered By: Dao Raphael on 06-25-2023 Chloride [Moles/Vol] 106 mmol/L Normal 98-[address] [facility] Comment on above: Performed By: #### 2 4323-8, LIPID, 3016-3 #### [facility] [address] [place] [address] Comprehensive metabolic 2000 panelon 07-28-2023 Creatinine and Glomerular filtration rate.predicted panel (S/P/Bld) 98 mL/min Normal >60 [facility] ([place]) Comment on above: Performed By: #### 2 4323-8, LIPID, 3016-3 #### [facility] [address] [place], [place] [address] (424) Creatinine and Glomerular fi ltration rate.predicted panel (S/P/Bld)Ordered By: Dao Raphael on 06-25-2023 GFR/1.73 sq M.predicted MDRD (S/P/Bld) [Vol rate/Area] 98 mL/min/{1.73_m2} >60 [facility] Eosinophil %Ordered By: Chilango Raphael on 06-25-2023 Eosinophils/100 WBC (Bld) 3.7 % High 0.0-3.0 [facility] Comment on above: Performed By: #### 5 7021-8 #### [facility] [address] [place], [place] [address] Estimated glomerular filtrat ion rate (GFR) non- AmericanOrdered By: Dao Raphael on 06-25-2023 GFR/1.73 sq M.predicted among non-blacks MDRD (S/P/Bld) [Vol rate/Area] 81 mL/min/{1.73_m2} Normal >60 [facility] Comment on above: Performed By: #### 2 4323-8, LIPID, 3016-3 #### [facility] [address] [place], [place] [address] Hemoglobin [Mass/volume] in BloodOrdered By: Dao Raphael on 06-25-2023 Hemoglobin (Bld) [Mass/Vol] 13.0 g/dL Low 13.5-16.5 [facility] Comment on above: Performed By: #### 5 7021-8 #### [facility] [address] [place], [place] [address] (900) MCV (mean corpuscular volume ) determinationOrdered By: Dao Raphael on 06-25-2023 MCV (RBC) [Entitic vol] 91.0 fL Normal 80.0-100.0 [facility] Comment on above: Performed By: #### 5 7021-8 #### [facility] [address] [place] [address] Microalbum/Creatinine Ratio, Uron 06-25-2023 Albumin Unsp time DL <= 20 mg/L (U) [Mass/Time] Normal <19.0 [facility] ([place]) Comment on above: Result Comment: LELE ENT UNABLE TO VOID Performed By: #### U MALBCRE #### [facility] [address] [place] [address] Albumin/Creatinine DL <= 20 mg/L (24H U) [Ratio] Normal <30.0 [facility] ([place]) Comment on above: Result Comment: LELE ENT UNABLE TO VOID Performed By: #### U MALBCRE #### [facility] [address] [place] [address] Creatinine (U) [Mass/Vol] Normal 22.0-328.0 [facility] ([place] Comment on above: Result Comment: LELE ENT UNABLE TO VOID Performed By: #### U MALBCRE #### [address] [address] Monocyte %Ordered By: Dao Raphael on 06-25-2023 Monocytes/100 WBC (Bld) 7.3 % Normal 3.4-9.0 [facility] Comment on above: Performed By: #### 5 7021-8 #### [facility] [address] [place] [address] Potassium [Moles/volume] in Serum or PlasmaOrdered By: Dao Raphael on 06-25-2023 Potassium [Moles/Vol] 4.5 mmol/L Normal 3.6-5.0 [facility] Comment on above: Performed By: #### 2 4323-8, LIPID, 3016-3 #### [address] [address] Serum globulin measurement ( mass/volume)Ordered By: Dao Raphael on 06-25-2023 Globulin (S) [Mass/Vol] 3.0 g/dL Normal 1.9-3.9 [facility] Comment on above: Performed By: #### 2 4323-8, LIPID, 3016-3 #### [facility] [address] [place] [address] Serum glucose measurement (m ass/volume)Ordered By: Dao Raphael on 06-25-2023 Glucose [Mass/Vol] 95 mg/dL Normal 70-99 [facility] Comment on above: Performed By: #### 2 4323-8, LIPID, 3016-3 #### [facility] [address] [place] [address] Serum or plasma anion gap de termination (moles/volume)Ordered By: Dao Raphael on 06-25-2023 Anion gap [Moles/Vol] 7.0 mmol/L Normal 3-11 [facility] Comment on above: Performed By: #### 2 4323-8, LIPID, 3016-3 #### [facility] [address] [place] [address] Serum or plasma calcium nii urement (mass/volume)Ordered By: Dao Raphael on 06-25-2023 Calcium [Mass/Vol] 9.5 mg/dL Normal 8.5-10.5 [facility] Comment on above: Performed By: #### 2 4323-8, LIPID, 3016-3 #### [facility] [address] [place] [address] Serum or plasma cholesterol in LDL measurement (mass/volume)Ordered By: Dao Raphael on 06-25-2023 Cholesterol in LDL [Mass/Vol] 65 mg/dL Normal <129 [facility] Comment on above: Performed By: #### 2 4323-8, LIPID, 3016-3 #### [facility] [address] [place] [address] Serum or plasma cholesterol measurement (mass/volume)Ordered By: Dao Raphael on 06-25-2023 Cholesterol [Mass/Vol] 117 mg/dL Low 140-200 [facility] Comment on above: Performed By: #### 2 4323-8, LIPID, 3016-3 #### [facility] [address] [place] [address] Serum or plasma creatinine m easurement (moles/volume)Ordered By: Dao Raphael on 06-25-2023 Creatinine [Moles/Vol] 0.9 mg/dL Normal 0.6-1.3 [facility] Comment on above: Performed By: #### 2 4323-8, LIPID, 3016-3 #### [facility] [address] [place] [address] Serum or plasma high density lipoprotein (HDL) cholesterol measurementOrdered By: Dao Raphael on 06-25-2023 Cholesterol in HDL [Mass/Vol] 45 mg/dL Normal 29-71 [facility] Comment on above: Performed By: #### 2 4323-8, LIPID, 6-3 #### [facility] [address] [place] [address] Serum or plasma low density lipoprotein (LDL) cholesterol/high density lipoprotein (HOrdered By: Dao Raphael on 06-25-2023 Cholesterol in LDL/Cholesterol in HDL [Mass ratio] 1.4 {ratio} Normal [facility] Comment on above: MEN WOMEN1/2 Average Risk 1.00 1.47Average Risk 3.55 3.222X Average Risk 6.25 5.033X Average Risk 7.99 6.14 Result Comment: MEN WOMEN 1/2 Average Risk 1.00 1.47 Average Risk 3.55 3.22 2X Average Risk 6.25 5.03 3X Average Risk 7.99 6.14 Performed By: #### 2 4323-8, LIPID, 3016-3 #### [facility] [address] [place] [address] Serum or plasma sodium measu rement (moles/volume)Ordered By: Dao Raphael on 06-25-2023 Sodium [Moles/Vol] 141 mmol/L Normal 135-145 [facility] Comment on above: Performed By: #### 2 4323-8, LIPID, 3016-3 #### [facility] [address] [place] [address] Serum or plasma thyroid stim ulating hormone (TSH) measurementOrdered By: Dao Raphael on 06-25-2023 TSH Qn 1.24 uIU/mL Normal 0.34-5.60 [facility] Comment on above: Performed By: #### 2 4323-8, LIPID, 3016-3 #### [facility] [address] [place] [address] Serum or plasma triglyceride measurement (mass/volume)Ordered By: Dao Raphael on 06-25-2023 Triglyceride [Mass/Vol] 72 mg/dL Normal 41-189 [facility] Comment on above: Performed By: #### 2 4323-8, LIPID, 3016-3 #### [address] [address] Serum or plasma urea nitroge n measurement (mass/volume)Ordered By: Dao Raphael on 06-25-2023 Urea nitrogen [Mass/Vol] 21 mg/dL High 6-20 [facility] Comment on above: Performed By: #### 2 4323-8, LIPID, 3016-3 #### [address] [address] Total protein bloodOrdered B y: Dao Raphael on 06-25-2023 Protein [Mass/Vol] 7.1 g/dL Normal 5.9-7.8 [facility] Comment on above: Performed By: #### 2 4323-8, LIPID, 3016-3 #### [facility] [address] [place] [address] Laboratory - Hematology and Cell countson 06-09-2023 HbA1c (Bld) [Mass fraction] 5.5 % 4.2-6.3 [facility] UA DIP, URINE (POC)on 2022 BILIRUBIN UA (POCT) Negative Negative [facility] CLARITY UA (POCT) Clear [facility] COLOR UA (POCT) [facility] GLUCOSE UA (POCT) Negative Negative mg/dL [facility] HEMOGLOBIN/BLOOD UA (POCT) Small Abnormal Negative [facility] KETONE UA (POCT) Trace Negative mg/dL [facility] LEUKOCYTES UA (POCT) Large Abnormal Negative [facility] NITRITE UA (POCT) Positive Abnormal Negative [facility] PH UA (POCT) 5.5 4.5 - 8.0 [facility] Protein Ql (U) 30 mg/dL Abnormal Negative mg/dL [facility] SPECIFIC GRAVITY UA (POCT) 1.025 1.005 - 1.030 [facility] UROBILINOGEN UA (POCT) 0.2 E.U./dL Marcia l E.U./dL [facility] URINE SEDIMENT B/Oon 023 BACTERIA, UR cocci and rods Negative [facility] Casts LM.HPF (Urine sed) [#/Area] [facility] Leukocyte morphology finding Nom (Bld) 0 - 5 HPF [facility] Nucleated RBC Manual cnt (Unsp spec) [#] 0 HPF 0 - 3 HPF [facility] Urine sediment comments LM Matheus (Urine sed) [facility] SURGICAL PATHOLOGY SKIN ONLY on 01-13-2023 Case Report Surgical Pathology Report Case: [id number] Authorizing Provider: José Sheikh APRN.CENTRIFUGAL CASTING MACHINE TENDER Collected: 01/12/2023 10:26 AM Ordering Location: Dermatology Received: 01/12/2023 01:00 PM Pathologist: Gracia Silva MD Specimen: SKIN, Left Preauricular Area [facility] FINAL DIAGNOSIS Skin, left preauricu lar area, shave biopsy: - Hypertrophic actinic keratosis. JK/LSP/kari 01/13/2023 [facility] Gross Description A. SKIN Received in formalin is a 0.8 x 0.7 x 0.3 cm shave of skin. On the skin surface there is a 0.7 cm kaur, elevated area. The specimen is bisected. Totally submitted in one cassette. Gross examination performed at [facility], [facility] [address] [facility] 01/12/2023 9:59 PM [facility] Performing Lab Diagnostic interpretation performed at [facility], [address] [place] [address] [facility] [address] CLIA# [id number] Political Aide: Calixto Kraft M.D. [facility] Laboratory - Hematology and Cell countson 12-14-2022 HbA1c (Bld) [Mass fraction] 5.4 % 4.2-6.3 [facility] Absolute lymphocyte countOrd ered By: Vernon Prado on 12-08-2022 Lymphocytes Auto (Unsp spec) [#/Vol] 1.73 10*3/uL 0.83-4.51 [facility] Basophil percentageOrdered B y: Vernon Prado on 12-08-2022 Basophils/100 WBC (Bld) 0.5 % 0-1 [facility] Bilirubin [Mass/Vol] 0.50 mg/dL 0.20-1.00 [facility] Comment on above: For patients on eltr ombopag therapy, use of Dimension Sylvester TBIL is not recommended. Chloride [Moles/Vol] 104 mmol/L 98-107 [facility] Eosinophils/100 WBC (Bld) 2.2 % 0-5 [facility] Glucose [Mass/Vol] 96 mg/dL 74-106 [facility] Neutrophils (Bld) [#/Vol] 9.3 10*3/uL 2.0-7.7 [facility] Neutrophils/100 WBC (Bld) 76.1 % 47-70 [facility] Potassium [Moles/Vol] 3.4 mmol/L 3.5-5.1 [facility] Protein [Mass/Vol] 7.0 g/dL 6.4-8.2 [facility] Sodium [Moles/Vol] 139 mmol/L 136-145 [facility] WBC (Bld) [#/Vol] 12.2 10*3/uL 4.4-11.0 [facility] Blood erythrocytes count (nu mber/volume)Ordered By: Vernon Prado on 12-08-2022 RBC (Bld) [#/Vol] 4.26 10*6/uL 4.6-6.2 [facility] Blood hemoglobin measurement (mass/volume)Ordered By: Vernon Prado on 12-08-2022 Hemoglobin (Bld) [Mass/Vol] 12.6 g/dL 13.0-16.5 [facility] Blood lymphocytes/100 leukoc ytesOrdered By: Vernon Prado on 12-08-2022 Lymphocytes/100 WBC (Bld) 14.2 % 19-41 [facility] Blood monocytes/100 leukocyt esOrdered By: Vernon Prado on 12-08-2022 Monocytes/100 WBC (Bld) 6.3 % 0-10 [facility] Blood platelet mean volumeOr dered By: Vernon Prado on 12-08-2022 Platelet mean volume (Bld) [Entitic vol] 10.1 fL 6.2-12.0 [facility] Determination of erythrocyte mean corpuscular volume (MCV)Ordered By: Vernon Prado on 12-08-2022 MCV (RBC) [Entitic vol] 90.4 fL 80-94 [facility] Erythrocyte sedimentation ra teOrdered By: Vernon Prado on 12-08-2022 ESR (Bld) [Velocity] 25 mm/h 0-20 [facility] Hematocrit Auto (Bld) [Volum e fraction]Ordered By: Vernon Prado on 12-08-2022 Hematocrit (Bld) [Volume fraction] 38.5 % 40-54 [facility] Laboratory - Chemistry and C hemistry - challengeOrdered By: Vernon Prado on 12-08-2022 ALP [Catalytic activity/Vol] 117 U/L 45-117 [facility] ALT [Catalytic activity/Vol] 25 U/L 16-61 [facility] CO2 [Moles/Vol] 27.0 mmol/L 21.0-32.0 [facility] Globulin (S) [Mass/Vol] 3.6 g/dL 2.2-4.2 [facility] Urea nitrogen/Creatinine [Mass ratio] 31.1 mg/mg 10-20 [facility] Laboratory - Hematology and Cell countsOrdered By: Vernon Prado on 12-08-2022 Erythrocyte distribution width (RBC) [Entitic vol] 48.5 fL 35.1-43.9 [facility] Erythrocyte distribution width (RBC) [Ratio] 14.7 % 11.6-14.6 [facility] Immature granulocytes/100 WBC (Bld) 0.700 % 0.0-0.9 [facility] Comment on above: IG% - Immature Granu locytes (promyelocytes, myelocytes and metamyelocytes) > 1% indicates that a LEFT SHIFT is Present. MCH (RBC) [Entitic mass] 29.6 pg 27.0-32.0 [facility] Nucleated RBC/100 WBC (Bld) [Ratio] 0 % 0-5 [facility] MCHC Auto (RBC) [Mass/Vol]Or dered By: Vernon Prado on 12-08-2022 MCHC (RBC) [Mass/Vol] 32.7 g/dL 32-36 [facility] No Panel InformationOrdered By: Vernon Prado on 12-08-2022 Bordetella pertussis IgG Antibody 3.25 index 0.00-0.94 [facility] Comment on above: Negative <0.95 Equiv ocal 0.95 - 1.04 Positive >1.04Performed at: [facility] [address] [id number] Director: Kulwinder Schaefer PhD, Phone: [phone] at: [facility] [address] [id number] Director: Derrick Pedro MD, Phone: [phone] Estimated GFR (MDRD) Amer 124 mL/min >60 [facility] Comment on above: GFR Calc Estimated GFR (MDRD) Non-Af Amer 102 mL/min >60 [facility] Comment on above: Non- GFR Calc Rubella IgG Antibody Reactive Nonreactive [facility] Comment on above: Antibody Results Int erpretation of Immune Status Non Reactive Presumed Non-Immune Equivocal Equivocal Reactive Presumed Immune Platelets bldOrdered By: Gm Prado on 12-08-2022 Platelets (Bld) [#/Vol] 308 10*3/uL 150-450 [facility] Qualitative QuantiFERON-TB g old in tube testOrdered By: Vernon Prado on 12-08-2022 M. tuberculosis tuberculin stim IFN-g Ql (Bld) 0.01 IU/mL . [facility] Serum Varicella zoster virus IgG antibody assay by immunoassay (units/volume)Ordered By: Vernon Prado on 12-08-2022 VZV IgG IA Qn (S) 2797 index Immune >165 [facility] Comment on above: Negative <135 Equivo evi 135 - 165 Positive >165A positive result generally indicates exposure to thepathogen or administration of specific immunoglobulins,but it is not indication of active infection or stageof disease. Serum mumps virus IgM antibo dy assay (units/volume)Ordered By: Vernon Prado on 12-08-2022 MuV IgM Qn (S) < 0.80 AU 0.00-0.79 [facility] Comment on above: Negative < 0.80 Bord vicky 0.80 - 1.20 Positive > 1.20Note: The presence of IgM specific antibody should beinterpreted in conjunction with the patient's clinicalhistory and exposure risk when an acute infection issuspected. Serum or plasma C reactive p rotein measurement (mass/volume)Ordered By: Vernon Prado on 12-08-2022 CRP [Mass/Vol] 3.98 mg/L 0.0-3.0 [facility] Comment on above: C-Reactive Protein ( CRP) provides useful information for thediagnosis, therapy and monitoring of inflammatory processesand associated diseases. For the evaluation of Relative Riskfor Cardiovascular Disease, a High Sensitivity CRP (HSCRP)should be ordered. Serum or plasma albumin nii urement (mass/volume)Ordered By: Vernon Prado on 12-08-2022 Albumin [Mass/Vol] 3.4 g/dL 3.2-5.0 [facility] Serum or plasma albumin/glob ulin mass ratioOrdered By: Vernon Prado on 12-08-2022 Albumin/Globulin [Mass ratio] 0.9 {ratio} 0.9-2.4 [facility] Serum or plasma calcium nii urement (mass/volume)Ordered By: Vernon Prado on 12-08-2022 Calcium [Mass/Vol] 8.8 mg/dL 8.5-10.1 [facility] Serum or plasma creatinine m easurement (mass/volume)Ordered By: Vernon Prado on 12-08-2022 Creatinine [Mass/Vol] 0.77 mg/dL 0.70-1.30 [facility] Comment on above: The validity of the calculated GFR & GFRAA in patients over 70 years has not been determined. Clinical correlation is essential. Serum or plasma urea nitroge n measurement (mass/volume)Ordered By: Vernon Prado on 12-08-2022 Urea nitrogen [Mass/Vol] 24 mg/dL 7-18 [facility] Thin prep Papanicolaou smear with manual screeningOrdered By: Vernon Prado on 12-08-2022 Thin prep Papanicolaou smear with manual screening 12 U/L 15-37 [facility] Thin prep Papanicolaou smear with manual screening 8 5-15 [facility] Thin prep Papanicolaou smear with manual screening Comment . [facility] Comment on above: QuantiFERON-TB Gold Plus is a qualitative indirect test forM tuberculosis infection (including disease) and isintended for use in conjunction with risk assessment,radiography, and other medical and diagnostic evaluations.The QuantiFERON-TB Gold Plus result is determined bysubtracting the Nil value from either TB antigen (Ag)value. The Mitogen tube serves as a control for the test. Thin prep Papanicolaou smear with manual screening 0.02 IU/mL . [facility] Thin prep Papanicolaou smear with manual screening > 10.00 IU/mL . [facility] Thin prep Papanicolaou smear with manual screening Negative Negative [facility] Comment on above: No response to M tub erculosis antigens detected.Infection with M tuberculosis is unlikely, but high riskindividuals should be considered for additional testing(ATS/IDSA/CDC Clinical Practice Guidelines, 2017). Thereference range is an Antigen minus Nil result of <0.35IU/mL.The specimen received for QuantiFERON testing was incubatedby the ordering institution. Specific procedures outlinedin our Directory of Services and in the package insert forthe QuantiFERON Gold (In Tube) test must be followed toenable for proper stimulation of cells for the productionof interferon gamma. Chemiluminescence immunoassaymethodology Clostridium difficile detect ion by polymerase chain reactionOrdered By: Vernon Prado on 09-15-2022 C. difficile DNA MARTITA+probe Ql (Unsp spec) [facility] Lower GI hemoglobin IA Ql (S tl)Ordered By: Vernon Prado on 09-15-2022 Stool Occult Blood (THANH) Positive [facility] No Panel InformationOrdered By: Vernon Praod on 09-15-2022 Miscellaneous Test See comment [facility] Comment on above: No Salmonella or Jackie gella recovered.No Campylobacter species isolated.Negative for E.coli Shiga Toxin EIA.[facility] Stool Calprotectin 37 ug/g 0-120 [facility] Comment on above: Concentration Interp retation Follow-Up<16 - 50 ug/g Normal None>50 -120 ug/g Borderline Re-evaluate in 4-6 weeks >120 ug/g Abnormal Repeat as clinically indicatedPerformed at: [address] [id number] Director: Kulwinder Schaefer PhD, Phone: [phone] at: [address] [id number] Director: Derrick Pedro MD, Phone: [phone] Stool Neutral Fats Increased . [facility] Comment on above: Normal (<60 Droplets /HPF) Stool Pancreatic Elastase 194 >200 [facility] Comment on above: Result Units: ug [address] st[address]g Severe Pancreatic Insufficiency: <100 Moderate Pancreatic Insufficiency: 100 - 200 Normal: >200Performed at: [address] [id number] Director: Derrick Pedro MD, Phone: [phone] Qualitative fecal fat or lip idsOrdered By: Vernon Prado on 09-15-2022 Fat Ql (Stl) Increased . [facility] Comment on above: Normal (<100 Droplet s/HPF) Stool lactoferrin detection by immunoassayOrdered By: Vernon Prado on 09-15-2022 Lactoferrin IA Ql (Stl) [facility] Absolute lymphocyte countOrd ered By: Vernon Prado on 09-14-2022 Lymphocytes Auto (Unsp spec) [#/Vol] 1.90 10*3/uL 0.83-4.51 [facility] Albumin Elph [Mass/Vol]Order ed By: Vernon Prado on 09-14-2022 Albumin [Mass/Vol] 3.8 g/dL 2.9-4.4 [facility] Atypical perinuclear antineu trophil cytoplasmic antibodies measurementOrdered By: Vernon Prado on 09-14-2022 Neutrophil cytoplasmic Ab.perinuclear.atypical IF (S) [Titer] <1:20 titer Neg:<1:20 [facility] Comment on above: The atypical pANCA p attern has been observed in asignificant percentage of patients with ulcerative colitis,primary sclerosing cholangitis and autoimmune hepatitis. Basophil percentageOrdered B y: Vernon Prado on 09-14-2022 Basophil percentage < 0.2 AI 0.0-0.9 [facility] Basophils/100 WBC (Bld) 0.6 % 0-1 [facility] Bilirubin [Mass/Vol] 0.80 mg/dL 0.20-1.00 [facility] Comment on above: For patients on eltr ombopag therapy, use of Dimension Sylvester TBIL is not recommended. Chloride [Moles/Vol] 103 mmol/L 98-107 [facility] Eosinophils/100 WBC (Bld) 2.2 % 0-5 [facility] Glucose [Mass/Vol] 98 mg/dL 74-106 [facility] Neutrophils (Bld) [#/Vol] 9.8 10*3/uL 2.0-7.7 [facility] Neutrophils/100 WBC (Bld) 75.2 % 47-70 [facility] Potassium [Moles/Vol] 3.6 mmol/L 3.5-5.1 [facility] Protein [Mass/Vol] 7.3 g/dL 6.4-8.2 [facility] Sodium [Moles/Vol] 139 mmol/L 136-145 [facility] WBC (Bld) [#/Vol] 13.0 10*3/uL 4.4-11.0 [facility] Blood erythrocytes count (nu mber/volume)Ordered By: Vernon Prado on 09-14-2022 RBC (Bld) [#/Vol] 4.47 10*6/uL 4.6-6.2 [facility] Blood hemoglobin measurement (mass/volume)Ordered By: Vernon Prado on 09-14-2022 Hemoglobin (Bld) [Mass/Vol] 12.9 g/dL 13.0-16.5 [facility] Blood lymphocytes/100 leukoc ytesOrdered By: Vernon Prado on 09-14-2022 Lymphocytes/100 WBC (Bld) 14.6 % 19-41 [facility] Blood monocytes/100 leukocyt esOrdered By: Vernon Prado on 09-14-2022 Monocytes/100 WBC (Bld) 6.8 % 0-10 [facility] Blood platelet mean volumeOr dered By: Vernon Prado on 09-14-2022 Platelet mean volume (Bld) [Entitic vol] 10.3 fL 6.2-12.0 [facility] Determination of erythrocyte mean corpuscular volume (MCV)Ordered By: Vernon Prado on 09-14-2022 MCV (RBC) [Entitic vol] 91.7 fL 80-94 [facility] Erythrocyte sedimentation ra teOrdered By: Vernon Prado on 09-14-2022 ESR (Bld) [Velocity] 16 mm/h 0-20 [facility] Hematocrit Auto (Bld) [Volum e fraction]Ordered By: Vernon Prado on 09-14-2022 Hematocrit (Bld) [Volume fraction] 41.0 % 40-54 [facility] Interpretation of serum or p lasma protein pattern by immunofixation (narrative resultOrdered By: Vernon Prado on 09-14-2022 Protein Fractions Immunofixation Matheus [Interp] See comment [facility] Comment on above: Result: Not Observed Laboratory - Chemistry and C hemistry - challengeOrdered By: Vernon Prado on 09-14-2022 ALP [Catalytic activity/Vol] 118 U/L 45-117 [facility] ALT [Catalytic activity/Vol] 24 U/L 16-61 [facility] CO2 [Moles/Vol] 26.0 mmol/L 21.0-32.0 [facility] Cobalamin (Vitamin B12) [Mass/Vol] 280 pg/mL 211-911 [facility] Urea nitrogen/Creatinine [Mass ratio] 20.8 mg/mg 10-20 [facility] Laboratory - Chemistry and C hemistry - challengeon 09-14-2022 Globulin (S) [Mass/Vol] 3.8 g/dL 2.2-4.2 [facility] Work Phone: Laboratory - Hematology and Cell countsOrdered By: Vernon Prado on 09-14-2022 Erythrocyte distribution width (RBC) [Entitic vol] 48.4 fL 35.1-43.9 [facility] Erythrocyte distribution width (RBC) [Ratio] 14.3 % 11.6-14.6 [facility] Immature granulocytes/100 WBC (Bld) 0.600 % 0.0-0.9 [facility] Comment on above: IG% - Immature Granu locytes (promyelocytes, myelocytes and metamyelocytes) > 1% indicates that a LEFT SHIFT is Present. MCH (RBC) [Entitic mass] 28.9 pg 27.0-32.0 [facility] Nucleated RBC/100 WBC (Bld) [Ratio] 0 % 0-5 [facility] MCHC Auto (RBC) [Mass/Vol]Or dered By: Vernon Prado on 09-14-2022 MCHC (RBC) [Mass/Vol] 31.5 g/dL 32-36 [facility] No Panel InformationOrdered By: Vernon Prado on 09-14-2022 Addendum Document Comment . [facility] Comment on above: Protein electrophore sis scan will follow via computer,mail, or merchandise supervisor delivery. Centromere B Antibody <0.2 AI 0.0-0.9 [facility] Endomysial IgA Antibody Negative Negative [facility] Estimated GFR (MDRD) Amer 102 mL/min >60 [facility] Comment on above: GFR Calc Estimated GFR (MDRD) Non-Af Amer 84 mL/min >60 [facility] Comment on above: Non- GFR Calc Free Triiodothyronine (T3) pg/dL 2.6 pg/mL 2.18-3.98 [facility] Immunoglobulin E 4 IU/mL 6-495 [facility] Comment on above: Performed at: [facility] [address] [id number] Director: Kulwinder Schaefer PhD, Phone: [phone] at: - [facility] [id number] Director: Derrick Pedro MD, Phone: [phone] Miscellaneous Test See comment [facility] Comment on above: TEST RESULT LIMITSIB D Expanded PanelgASCA 53 High units 0-50 Negative <45 Equivocal 45 - 50 Positive >50ACCA 89 units 0-90 Negative <80 Equivocal 80 - 90 Positive >90ALCA 130 High units 0-60 Negative <55 Equivocal 55 - 60 Positive >60AMCA 386 High units 0-100 Negative < 90 Equivocal 90 - 100 Positive >100 This test was developed and its performance characteristics determined [facility]. It has not been cleared or approved by the Food and Drug Administration. The FDA has determined that such clearance or approval is not necessary.Atypical pANCA Negative NegativeComments AbnormalSuggestive of Crohn's Disease with the very high risk of aggressive disease behavior (development of strictures or fistulae. TESTING PERFORMED AT [facility]. ORIGINAL REPORT ON FILE IN LAB CONTAINS ADDITIONAL TEST SITE INFORMATION. APARTMENT LEASING SPECIALIST Antibody <0.2 AI 0.0-0.9 [facility] Thyroid Stimulating Hormone (TSH) 1.19 uIU/mL 0.358-3.74 [facility] Platelets bldOrdered By: Gm Prado on 09-14-2022 Platelets (Bld) [#/Vol] 314 10*3/uL 150-450 [facility] Serum DNA double strand anti body assay (units/volume)Ordered By: Vernon Prado on 09-14-2022 DNA double strand Ab Qn (S) [IU]/mL 0-9 [facility] Comment on above: Negative <5 Equivoca l 5 - 9 Positive >9 Serum IgA measurement (units /volume)on 09-14-2022 IgA Qn (S) 124 mg/dL 61-437 [facility] Work Phone: Comment on above: Performed at: [address] [id number] Director: Kulwinder Schaefer PhD, Phone: [phone] Serum Mahsa-1 antibody assay (u nits/volume)Ordered By: Vernon Prado on 09-14-2022 Mahsa-1 extractable nuclear Ab Qn (S) <0.2 AI 0.0-0.9 [facility] Serum Scl-70 extractable nuc lear antibody assay (units/volume)Ordered By: Vernon Prado on 09-14-2022 SCL-70 extractable nuclear Ab Qn (S) <0.2 AI 0.0-0.9 [facility] Serum Garcia extractable nucl ear antibody detectionOrdered By: Vernon Prado on 09-14-2022 Garcia extractable nuclear Ab Ql (S) <0.2 AI 0.0-0.9 [facility] Serum [id number] measu rement by electrophoresisOrdered By: Vernon Prado on 09-14-2022 Alpha 1 globulin Elph [Mass/Vol] 0.3 g/dL 0.0-0.4 [facility] Alpha 1 globulin Elph [Mass/Vol] 1.0 g/dL 0.4-1.0 [facility] Serum classic neutrophil cyt oplasmic antibody assay (units/volume)Ordered By: Vernon Prado on 09-14-2022 Neutrophil cytoplasmic Ab.classic Qn (S) <1:20 titer Neg:<1:20 [facility] Serum globulin measurement ( mass/volume)Ordered By: Vernon Prado on 09-14-2022 Globulin (S) [Mass/Vol] 3.0 g/dL 2.2-3.9 [facility] Serum or plasma C reactive p rotein measurement (mass/volume)Ordered By: Vernon Prado on 09-14-2022 CRP [Mass/Vol] 5.90 mg/L 0.0-3.0 [facility] Comment on above: C-Reactive Protein ( CRP) provides useful information for thediagnosis, therapy and monitoring of inflammatory processesand associated diseases. For the evaluation of Relative Riskfor Cardiovascular Disease, a High Sensitivity CRP (HSCRP)should be ordered. Serum or plasma IgA measurem ent (mass/volume)Ordered By: Vernon Prado on 09-14-2022 IgA [Mass/Vol] 128 mg/dL 61-437 [facility] Serum or plasma IgG measurem ent (mass/volume)Ordered By: Vernon Prado on 09-14-2022 IgG [Mass/Vol] 934 mg/dL 603-1613 [facility] Serum or plasma IgM measurem ent (mass/volume)Ordered By: Vernon Prado on 09-14-2022 IgM [Mass/Vol] 91 mg/dL 15-143 [facility] Serum or plasma albumin nii urement (mass/volume)Ordered By: Vernon Prado on 09-14-2022 Albumin [Mass/Vol] 3.5 g/dL 3.2-5.0 [facility] Serum or plasma albumin/glob ulin mass ratioOrdered By: Vernon Prado on 09-14-2022 Albumin/Globulin [Mass ratio] 0.9 {ratio} 0.9-2.4 [facility] Serum or plasma beta globuli n measurement by electrophoresis (mass/volume)Ordered By: Vernon Prado on 09-14-2022 Beta globulin Elph [Mass/Vol] 0.8 g/dL 0.7-1.3 [facility] Serum or plasma calcium nii urement (mass/volume)Ordered By: Vernon Prado on 09-14-2022 Calcium [Mass/Vol] 8.8 mg/dL 8.5-10.1 [facility] Serum or plasma creatinine m easurement (mass/volume)Ordered By: Vernon Prado on 09-14-2022 Creatinine [Mass/Vol] 0.91 mg/dL 0.70-1.30 [facility] Comment on above: The validity of the calculated GFR & GFRAA in patients over 70 years has not been determined. Clinical correlation is essential. Serum or plasma gamma globul in measurement by electrophoresis (mass/volume)Ordered By: Vernon Prado on 09-14-2022 Gamma globulin Elph [Mass/Vol] 1.0 g/dL 0.4-1.8 [facility] Serum or plasma immunoelectr ophoresis interpretation (nominal result)Ordered By: Vernon Prado on 09-14-2022 Interpretation IEP [Interp] Comment . [facility] Comment on above: No monoclonality det ected. Serum or plasma urea nitroge n measurement (mass/volume)Ordered By: Vernon Prado on 09-14-2022 Urea nitrogen [Mass/Vol] 19 mg/dL 7-18 [facility] Serum perinuclear neutrophil cytoplasmic antibody titer by immunofluorescenceOrdered By: Vernon Prado on 09-14-2022 Neutrophil cytoplasmic Ab.perinuclear IF (S) [Titer] <1:20 titer Neg:<1:20 [facility] Comment on above: The presence of posi tive fluorescence exhibiting P-ANCA orC-ANCA patterns alone is not specific for the diagnosis ofWegener's Granulomatosis (WG) or microscopic polyangiitis.Decisions about treatment should not be based solely onANCA IFA results. The International ANCA Group Consensusrecommends follow up testing of positive sera with both PA-3 and MPO-ANCA enzyme immunoassays. As many as 5% serumsamples are positive only by EIA. Ref. AM J Clin Tufuxy7443;111:507-513. Serum tissue transglutaminas e IgA antibody assay (units/volume)Ordered By: Vernon Prado on 09-14-2022 tTG IgA Qn (S) <2 U/mL 0-3 [facility] Comment on above: Negative 0 - 3 Weak Positive 4 - 10 Positive >10 Tissue Transglutaminase (tTG) has been identified as the endomysial antigen. Studies have demonstr- ated that endomysial IgA antibodies have over 99% specificity for gluten sensitive enteropathy. Thin prep Papanicolaou smear with manual screeningOrdered By: Vernon Prado on 09-14-2022 Thin prep Papanicolaou smear with manual screening 11 U/L 15-37 [facility] Thin prep Papanicolaou smear with manual screening 10 5-15 [facility] Thin prep Papanicolaou smear with manual screening 149 U/L 87-241 [facility] Thin prep Papanicolaou smear with manual screening 1.3 0.7-1.7 [facility] Total protein bloodOrdered B y: Vernon Prado on 09-14-2022 Protein [Mass/Vol] 6.8 g/dL 6.0-8.5 [facility] Absolute lymphocyte counton 06-15-2022 Lymphocytes Auto (Unsp spec) [#/Vol] 1.73 10*3/uL 0.83-4.51 [facility] Work Phone: [phone] Basophil percentageon 2021 Basophils/100 WBC (Bld) 0.6 % 0-1 [facility] Work Phone: [phone] Bilirubin [Mass/Vol] 0.40 mg/dL 0.20-1.00 [facility] Work Phone: Comment on above: For patients on eltr ombopag therapy, use of Dimension Sylvester TBIL is not recommended. Chloride [Moles/Vol] 103 mmol/L 98-107 [facility] Work Phone: Cholesterol [Mass/Vol] 88 mg/dL <200 [facility] Work Phone: Comment on above: <200 mg/dL Desirable 200-240 mg/dL Borderline >240 mg/dL High Risk Eosinophils/100 WBC (Bld) 2.7 % 0-5 [facility] Work Phone: [phone] Glucose [Mass/Vol] 109 mg/dL 74-106 [facility] Work Phone: Comment on above: Fasting Glucose resu lt from 100 to 125 mg/dL suggests IMPAIRED HOMEOSTASIS per A.D.A. criteria. Neutrophils (Bld) [#/Vol] 9.6 10*3/uL 2.0-7.7 [facility] Work Phone: [phone] Neutrophils/100 WBC (Bld) 75.3 % 47-70 [facility] Work Phone: [phone] Potassium [Moles/Vol] 4.2 mmol/L 3.5-5.1 [facility] Work Phone: [phone] Protein [Mass/Vol] 6.8 g/dL 6.4-8.2 [facility] Work Phone: [phone] Sodium [Moles/Vol] 139 mmol/L 136-145 [facility] Work Phone: Triglyceride [Mass/Vol] 104 mg/dL <199 [facility] Work Phone: Comment on above: The drugs N-Acetylcy steine and Metamizole may falsely depress this assay.Serum Triglycerides Reference Interval Normal <150 mg/dL Borderline high 150 - 199 mg/dL High 200 - 499 mg/dL Very High > or = 500 mg/dL WBC (Bld) [#/Vol] 12.7 10*3/uL 4.4-11.0 [facility] Work Phone: Blood erythrocytes count (nu mber/volume)on 06-15-2022 RBC (Bld) [#/Vol] 4.26 10*6/uL 4.6-6.2 [facility] Work Phone: Blood hemoglobin measurement (mass/volume)on 06-15-2022 Hemoglobin (Bld) [Mass/Vol] 12.6 g/dL 13.0-16.5 [facility] Work Phone: Blood lymphocytes/100 leukoc yteson 06-15-2022 Lymphocytes/100 WBC (Bld) 13.6 % 19-41 [facility] Work Phone: Blood monocytes/100 leukocyt eson 06-15-2022 Monocytes/100 WBC (Bld) 7.0 % 0-10 [facility] Work Phone: Blood platelet mean volumeon 06-15-2022 Platelet mean volume (Bld) [Entitic vol] 12.4 fL 6.2-12.0 [facility] Work Phone: Determination of erythrocyte mean corpuscular volume (MCV)on 06-15-2022 MCV (RBC) [Entitic vol] 92.7 fL 80-94 [facility] Work Phone: Hematocrit Auto (Bld) [Volum e fraction]on 06-15-2022 Hematocrit (Bld) [Volume fraction] 39.5 % 40-54 [facility] Work Phone: Laboratory - Chemistry and C hemistry - challengeon 06-15-2022 ALP [Catalytic activity/Vol] 101 U/L 45-117 [facility] Work Phone: ALT [Catalytic activity/Vol] 25 U/L 16-61 [facility] Work Phone: CO2 [Moles/Vol] 28.0 mmol/L 21.0-32.0 [facility] Work Phone: [phone] Globulin (S) [Mass/Vol] 3.5 g/dL 2.2-4.2 [facility] Work Phone: [phone] Urea nitrogen/Creatinine [Mass ratio] 20.8 mg/mg 10-20 [facility] Work Phone: Laboratory - Hematology and Cell countson 06-15-2022 Erythrocyte distribution width (RBC) [Entitic vol] 47.8 fL 35.1-43.9 [facility] Work Phone: [phone] Erythrocyte distribution width (RBC) [Ratio] 14.0 % 11.6-14.6 [facility] Work Phone: [phone] Immature granulocytes/100 WBC (Bld) 0.800 % 0.0-0.9 [facility] Work Phone: [phone] Comment on above: IG% - Immature Granu locytes (promyelocytes, myelocytes and metamyelocytes) > 1% indicates that a LEFT SHIFT is Present. MCH (RBC) [Entitic mass] 29.6 pg 27.0-32.0 [facility] Work Phone: [phone] Nucleated RBC/100 WBC (Bld) [Ratio] 0 % 0-5 [facility] Work Phone: [phone] MCHC Auto (RBC) [Mass/Vol]on 06-15-2022 MCHC (RBC) [Mass/Vol] 31.9 g/dL 32-36 [facility] Work Phone: [phone] No Panel Informationon 06-15 Urine Microalbumin/Creatinine Ratio 5.6 mg/g CRE <30 [facility] Work Phone: [phone] Estimated GFR (MDRD) Amer 109 mL/min >60 [facility] Work Phone: Comment on above: GFR Calc Estimated GFR (MDRD) Non-Af Amer 90 mL/min >60 [facility] Work Phone: Comment on above: Non- GFR Calc Thyroid Stimulating Hormone (TSH) 1.31 uIU/mL 0.358-3.74 [facility] Work Phone: Platelets bldon 06-15-2022 Platelets (Bld) [#/Vol] 269 10*3/uL 150-450 [facility] Work Phone: Serum or plasma albumin nii urement (mass/volume)on 06-15-2022 Albumin [Mass/Vol] 3.3 g/dL 3.2-5.0 [facility] Work Phone: Serum or plasma albumin/glob ulin mass ratioon 06-15-2022 Albumin/Globulin [Mass ratio] 0.9 {ratio} 0.9-2.4 [facility] Work Phone: Serum or plasma calcium nii urement (mass/volume)on 06-15-2022 Calcium [Mass/Vol] 9.0 mg/dL 8.5-10.1 [facility] Work Phone: Serum or plasma cholesterol in HDL measurement (mass/volume)on 06-15-2022 Cholesterol in HDL [Mass/Vol] 35 mg/dL >40 [facility] Work Phone: Comment on above: The drugs N-Acetylcy steine and Metamizole may falsely depress this assay. Reference Range HDL <40 mg/dL Low HDL Cholesterol HDL >or= 60 mg/dL High HDL Cholesterol Serum or plasma cholesterol in VLDL measurement (mass/volume)on 06-15-2022 Cholesterol in VLDL [Mass/Vol] 21 mg/dL 5-40 [facility] Work Phone: Serum or plasma creatinine m easurement (mass/volume)on 06-15-2022 Creatinine [Mass/Vol] 0.86 mg/dL 0.70-1.30 [facility] Work Phone: Comment on above: The validity of the calculated GFR & GFRAA in patients over 70 years has not been determined. Clinical correlation is essential. Serum or plasma low density lipoprotein (LDL) cholesterol measurement (mass/volume)on 06-15-2022 Cholesterol in LDL [Mass/Vol] 32 mg/dL 0-130 [facility] Work Phone: Serum or plasma urea nitroge n measurement (mass/volume)on 06-15-2022 Urea nitrogen [Mass/Vol] 18 mg/dL 7-18 [facility] Work Phone: Thin prep Papanicolaou smear with manual screeningon 06-15-2022 Thin prep Papanicolaou smear with manual screening 10.1 mg/L NO RANGE EST. [facility] Work Phone: Thin prep Papanicolaou smear with manual screening 12 U/L 15-37 [facility] Work Phone: Thin prep Papanicolaou smear with manual screening 8 5-15 [facility] Work Phone: Urine creatinine measurement (mass/volume)on 06-15-2022 Creatinine (U) [Mass/Vol] 180.00 mg/dL NO RANGE EST. [facility] Work Phone: Laboratory - Hematology and Cell countson 06-08-2022 HbA1c (Bld) [Mass fraction] 5.5 % 4.2-6.3 [facility] Work Phone: Laboratory - Hematology and Cell countson 02-25-2022 HbA1c (Bld) [Mass fraction] 6.2 % 4.2-6.3 [facility] Work Phone: ED NOTEon 06-28-2019 ED NOTE HNO ID: [id number] Author: Yohana LundbergRn) Marcello RN Service: ? Author Type: Registered Nurse Type: ED Notes Filed: 06/27/2019 11:41 PM Note Text: Discharge inst reviewed with pt, discussed follow up with urology, pt verbalized understanding via teach back method, pt stable upon departure from ED [facility] ED NOTE HNO ID: [id number] Author: Indy LundbergRn) Vicki RN Service: Nursing Author Type: Registered Nurse Type: ED Notes Filed: 06/27/2019 10:40 PM Note Text: Patient presents with bleeding from the tip of his penis. He had a lange placed today after prostate surgery and is concerned that there is bleeding [facility] ED PROV NOTEon 06-28-2019 ED PROV NOTE HNO ID: [id number] Author: Elio Kelley MD Service: ? Author Type: Physician Type: ED Provider Notes Filed: 06/27/2019 10:54 PM Note Text: ED Provider Note Patient Name: Raya Mcnair SERVICE DATE: 06/27/19 History Patient presents with: Lange Cath Problem History of present illness: 79-year-old male presents the ER for evaluation of his Lange catheter which was placed earlier today after prostate surgery. He went to the bathroom to have a bowel movement and had a bowel movement but had some bleeding from his urethral meatus which lasted an hour and he came in. Bleeding has subsequently resolved. No other complaints. He has some soreness from the surgery but no new complaints and his urine is draining normally and yellow. PAST MEDICAL HISTORY Diagnosis Date - Essential hypertension, benign - Unspecified asthma(493.90) - Unspecified sleep apnea PAST SURGICAL HISTORY Procedure Laterality Date - CYSTO.PANENDO 05/26/2019 Cystoscopy/TRUS -Dr. Felipe - EXCISION OF LINGUAL TONSIL - PAST SURGICAL HISTORY OF external fix of Lt frature - REMV CATARACT EXTRACAP,INSERT LENS rt eye - US PERC CHOLECYSTOSTOMY No family history on file. Social History Tobacco Use - Smoking status: Never Smoker - Smokeless tobacco: Never Used Substance and Sexual Activity - Alcohol use: Not on file - Drug use: Not on file - Sexual activity: Not on file ALLERGIES No Known Allergies Review of Systems Constitutional: Negative. HENT: Negative. Eyes: Negative. Respiratory: Negative. Cardiovascular: Negative. Gastrointestinal: Positive for abdominal pain. Endocrine: Negative. Genitourinary: See history of present illness Musculoskeletal: Negative. Skin: Negative. Allergic/Immunologic: Negative. Neurological: Negative. Hematological: Negative. Psychiatric/Behavioral: Negative. Physical Exam BP 148/58 Pulse 77 Resp 18 Ht 5' 9 (1.75m) Wt 224 lb (101.6kg) SpO2 96% BMI 33.06 kg/(m2). O2 Therapy: Room Air Physical Exam Constitutional: He is oriented to person, place, and time. He appears well-developed and well-nourished. HENT: Head: Normocephalic and atraumatic. Right Ear: External ear normal. Left Ear: External ear normal. Nose: Nose normal. Eyes: Conjunctivae and EOM are normal. Neck: Normal range of motion. Neck supple. Abdominal: Soft. He exhibits no distension. There is no tenderness. Musculoskeletal: Normal range of motion. He exhibits no edema. Neurological: He is alert and oriented to person, place, and time. No cranial nerve deficit or sensory deficit. He exhibits normal muscle tone. Coordination normal. Skin: Skin is warm and dry. Capillary refill takes less than 2 seconds. Psychiatric: He has a normal mood and affect. His behavior is normal. Judgment and thought content normal. Nursing note and vitals reviewed. Diagnostic Testing ED Labs Ordered and Reviewed - No data to display Procedures ED Course / Clinical Impression MDM / Disposition / Plan The catheter is functioning properly at this time he has no further bleeding from the urethral meatus. At this point patient is reassured and ambulated and no subsequent bleeding occurred. Patient was advised to make sure that the Lange catheter supported well by his leg strap and a 5 to patient's urologist tomorrow. Return as needed. The patient was DISCHARGED: Counseled patient and family regarding suspected diagnosis AND need for follow-up. Discharged home with verbal and written instructions. They were instructed to return as needed for persistent or worsening symptoms or any new concerns. Condition at time of disposition: improved and stable SIGNATURE: MD Elio Anand MD 06/27/19 [id number] [facility] Op Noteon 03-24-2018 HIM IP Note OR On Air Talent [facility] Progress Noteon 03-24-2018 HIM IP Note OR On Air Talent [facility] Progress Noteon 03-17-2018 HIM IP Note OR On Air Talent [facility] Clostridium difficile detect ion by polymerase chain reaction C. difficile DNA MARTITA+probe Ql (Unsp spec) [facility] Work Phone: Lower GI hemoglobin IA Ql (S tl) Stool Occult Blood (THANH) Positive [facility] Work Phone: No Panel Information [facility] Stool lactoferrin detection by immunoassay Lactoferrin IA Ql (Stl) [facility] Work Phone: Vital Signs Date Time Vital Sign Value Performing Clinician Faci lity 08-06-2025 14:30-0400 Body height 175.26 cm Dao Raphael MD Work Phone: [facility] 08-06-2025 14:30-0400 Body mass index (BMI) [Ratio] 34.4 kg/m2 Dao Raphael MD Work Phone: [facility] 08-06-2025 14:30-0400 Body temperature 97.9 [degF] Dao Raphael MD Work Phone: [facility] 08-06-2025 14:30-0400 Body weight 105.69 kg Dao Raphael MD Work Phone: [facility] 08-06-2025 14:30-0400 Diastolic blood pressure 85 mm[Hg] Dao Raphael MD Work Phone: [facility] 08-06-2025 14:30-0400 Heart rate 106 /min Dao Raphael MD Work Phone: [facility] 08-06-2025 14:30-0400 Respiratory rate 14 /min Dao Raphael MD Work Phone: [facility] 08-06-2025 14:30-0400 SaO2% (BldA) [Mass fraction] 100 % Dao Raphael MD Work Phone: [facility] 08-06-2025 14:30-0400 Systolic blood pressure 129 mm[Hg] Dao Raphael MD Work Phone: [facility] 07-23-2025 10:44-0400 Body height 177.[address] Tolu Franz MD Work Phone: [facility] 07-23-2025 10:44-0400 Body weight 104.[address] Tolu Franz MD Work Phone: [facility] 07-20-2025 08:54-0400 Body mass index (BMI) [Ratio] 33 kg/m2 Dr. Tolu Franz MD Work Phone: [facility] 07-05-2025 15:35-0400 Body temperature 97.5 [degF] Jose Ramon Medina MD Work Phone: [facility] 07-05-2025 15:35-0400 Diastolic blood pressure 57 mm[Hg] Jose Ramon Medina MD Work Phone: [facility] 07-05-2025 15:35-0400 Heart rate 75 /min Jose Ramon Medina MD Work Phone: [facility] 07-05-2025 15:35-0400 Respiratory rate 24 /min Jose Ramon Medina MD Work Phone: [facility] 07-05-2025 15:35-0400 SaO2% (BldA) [Mass fraction] 98 % Jose Ramon Medina MD Work Phone: [facility] 07-05-2025 15:35-0400 Systolic blood pressure 122 mm[Hg] Jose Ramon Medina MD Work Phone: [facility] 06-28-2025 10:16-0400 Body mass index (BMI) [Ratio] 33 kg/m2 Dr. Tolu Franz MD Work Phone: [facility] 06-28-2025 10:16-0400 Body weight 104.[address] Tolu Franz MD Work Phone: [facility] 06-28-2025 10:16-0400 Diastolic blood pressure 65 mm[Hg] Dr. Tolu Franz MD Work Phone: [facility] 06-28-2025 10:16-0400 Heart rate 80 /min Dr. Tolu Franz MD Work Phone: [facility] 06-28-2025 10:16-0400 Respiratory rate 18 /min Dr. Tolu Franz MD Work Phone: [facility] 06-28-2025 10:16-0400 Systolic blood pressure 120 mm[Hg] Dr. Tolu Franz MD Work Phone: 3([phone])[phone] [place] [address] 06-19-2025 19:43-0400 Body temperature 98.2 [degF] Dr. Tolu Franz MD Work Phone: 1(674)999-598527 [address] 06-19-2025 19:43-0400 Diastolic blood pressure 75 mm[Hg] Dr. Tolu Franz MD Work Phone: 6(758)459-899372 [place] [address] 06-19-2025 19:43-0400 Heart rate 81 /min Dr. Tolu Franz MD Work Phone: 9(131)912-087972 [place] [address] 06-19-2025 19:43-0400 Respiratory rate 14 /min Dr. Tolu Franz MD Work Phone: 4(059)886-844472 [place] [address] 06-19-2025 19:43-0400 SaO2% (BldA) [Mass fraction] 99 % Dr. Tolu Franz MD Work Phone: 2(597)081-386472 [place] [address] 06-19-2025 19:43-0400 Systolic blood pressure 140 mm[Hg] Dr. Tolu Franz MD Work Phone: 2(647)302-626572 [place] [address] 06-19-2025 16:02-0400 Body mass index (BMI) [Ratio] 33.5 kg/m2 Dr. Tolu Franz MD Work Phone: 9(963)298-174772 [place] [address] 06-19-2025 16:02-0400 Body weight 106.[address] Tolu Franz MD Work Phone: 4(477)[phone] [place] [address] 06-19-2025 15:47-0400 Body height 177.[address] Tolu Franz MD Work Phone: 7(366)765-980490 [place] [address] 06-14-2025 21:34-0400 Body temperature 98 [degF] Dr. Tolu Franz MD Work Phone: 5(832)368-679572 [place] [address] 06-14-2025 21:34-0400 Diastolic blood pressure 84 mm[Hg] Dr. Tolu Franz MD Work Phone: [facility] 06-14-2025 21:34-0400 Heart rate 82 /min Dr. Tolu Franz MD Work Phone: [facility] 06-14-2025 21:34-0400 Respiratory rate 16 /min Dr. Tolu Franz MD Work Phone: [facility] 06-14-2025 21:34-0400 SaO2% (BldA) [Mass fraction] 99 % Dr. Tolu Franz MD Work Phone: [facility] 06-14-2025 21:34-0400 Systolic blood pressure 162 mm[Hg] Dr. Tolu Franz MD Work Phone: [facility] 06-14-2025 16:47-0400 Body height 176.[address] Tolu Franz MD Work Phone: [facility] 06-14-2025 16:47-0400 Body mass index (BMI) [Ratio] 33.3 kg/m2 Dr. Tolu Franz MD Work Phone: [facility] 06-14-2025 16:47-0400 Body weight 103.[address] Tolu Franz MD Work Phone: [facility] 06-14-2025 15:39-0400 Body mass index (BMI) [Ratio] 33.86 kg/m2 Kris Crouch MD Work Phone: [facility] 06-14-2025 15:39-0400 Body temperature 99.9 [degF] Kris Crouch MD Work Phone: [facility] 06-14-2025 15:39-0400 Body weight 104 kg Kris Crouch MD Work Phone: [facility] 06-14-2025 15:39-0400 Diastolic blood pressure 68 mm[Hg] Kris Crouch MD Work Phone: [facility] 06-14-2025 15:39-0400 Heart rate 98 /min Kris Crouch MD Work Phone: [facility] 06-14-2025 15:39-0400 Respiratory rate 24 /min Kris Crouch MD Work Phone: [facility] 06-14-2025 15:39-0400 SaO2% (BldA) [Mass fraction] 96 % Kris Crouch MD Work Phone: [facility] 06-14-2025 15:39-0400 Systolic blood pressure 138 mm[Hg] Kris Crouch MD Work Phone: [facility] 04-18-2025 11:12-0400 Body height 175.26 cm [facility] 04-18-2025 11:12-0400 Body mass index (BMI) [Ratio] 34 kg/m2 [facility] 04-18-2025 11:12-0400 Body temperature 97.9 [degF] [facility] 04-18-2025 11:12-0400 Body weight 104.44 kg [facility] 04-18-2025 11:12-0400 Diastolic blood pressure 70 mm[Hg] [facility] 04-18-2025 11:12-0400 Heart rate 57 /min [facility] 04-18-2025 11:12-0400 Respiratory rate 14 /min [facility] 04-18-2025 11:12-0400 SaO2% (BldA) [Mass fraction] 100 % [facility] 04-18-2025 11:12-0400 Systolic blood pressure 147 mm[Hg] [facility] 01-27-2025 01:02-0500 Body height 154.94 cm DAO RAPHAEL Work Phone: [facility] 01-17-2025 09:25-0500 Body mass index (BMI) [Ratio] 34.2 kg/m2 DAO RAPHAEL Work Phone: [facility] 01-17-2025 09:25-0500 Body weight 106.59 kg DAO RAPHAEL Work Phone: [facility] 01-17-2025 09:25-0500 Diastolic blood pressure 89 mm[Hg] DAO RAPHAEL Work Phone: [facility] 01-17-2025 09:25-0500 Heart rate 65 /min DAO RAPHAEL Work Phone: [facility] 01-17-2025 09:25-0500 SaO2% (BldA) [Mass fraction] 96 % DAO RAPHAEL Work Phone: [facility] 01-17-2025 09:25-0500 Systolic blood pressure 142 mm[Hg] DAO RAPHAEL Work Phone: [facility] 12-26-2024 09:47-0500 Body mass index (BMI) [Ratio] 44.7 kg/m2 DAO RAPHAEL Work Phone: [facility] 12-26-2024 09:47-0500 Body weight 107.5 kg DAO RAPHAEL Work Phone: [facility] 12-26-2024 09:47-0500 Diastolic blood pressure 54 mm[Hg] DAO RAPHAEL Work Phone: [facility] 12-26-2024 09:47-0500 Heart rate 65 /min DAO RAPHAEL Work Phone: [facility] 12-26-2024 09:47-0500 Respiratory rate 16 /min DAO RAPHAEL Work Phone: [facility] 12-26-2024 09:47-0500 Systolic blood pressure 112 mm[Hg] DAO HERNANDEZIS Work Phone: [facility] 12-22-2024 10:44-0500 Body height 175.26 cm [facility] 12-22-2024 10:44-0500 Body mass index (BMI) [Ratio] 34.6 kg/m2 [facility] 12-22-2024 10:44-0500 Body temperature 98.2 [degF] [facility] 12-22-2024 10:44-0500 Body weight 106.14 kg [facility] 12-22-2024 10:44-0500 Diastolic blood pressure 76 mm[Hg] [facility] 12-22-2024 10:44-0500 Heart rate 62 /min [facility] 12-22-2024 10:44-0500 Respiratory rate 18 /min [facility] 12-22-2024 10:44-0500 SaO2% (BldA) [Mass fraction] 100 % [facility] 12-22-2024 10:44-0500 Systolic blood pressure 136 mm[Hg] [facility] 12-21-2024 10:41-0500 Body temperature 96.6 [degF] Jose Ramon Medina MD Work Phone: [facility] 12-21-2024 10:41-0500 Diastolic blood pressure 71 mm[Hg] Jose Ramon Medina MD Work Phone: [facility] 12-21-2024 10:41-0500 Heart rate 64 /min Jose Ramon Medina MD Work Phone: [facility] 12-21-2024 10:41-0500 Respiratory rate 20 /min Jose Ramon Medina MD Work Phone: [facility] 12-21-2024 10:41-0500 SaO2% (BldA) [Mass fraction] 99 % Jose Ramon Medina MD Work Phone: [facility] 12-21-2024 10:41-0500 Systolic blood pressure 159 mm[Hg] Jose Ramon Medina MD Work Phone: [facility] 11-27-2024 12:54-0500 Body temperature 97.3 [degF] Jose Ramon Medina MD Work Phone: [facility] 11-27-2024 12:54-0500 Diastolic blood pressure 73 mm[Hg] Jose Ramon Medina MD Work Phone: [facility] 11-27-2024 12:54-0500 Heart rate 72 /min Jose Ramon Medina MD Work Phone: [facility] 11-27-2024 12:54-0500 Respiratory rate 18 /min Jose Ramon Medina MD Work Phone: [facility] 11-27-2024 12:54-0500 SaO2% (BldA) [Mass fraction] 96 % Jose Ramon Medina MD Work Phone: [facility] 11-27-2024 12:54-0500 Systolic blood pressure 176 mm[Hg] Jose Ramon Medina MD Work Phone: [facility] 11-16-2024 10:55-0500 Body temperature 96.6 [degF] Jose Ramon Medina MD Work Phone: [facility] 11-16-2024 10:55-0500 Diastolic blood pressure 67 mm[Hg] Jose Ramon Medina MD Work Phone: [facility] 11-16-2024 10:55-0500 Heart rate 67 /min Jose Ramon Medina MD Work Phone: [facility] 11-16-2024 10:55-0500 Respiratory rate 20 /min Jose Ramon Medina MD Work Phone: [facility] 11-16-2024 10:55-0500 SaO2% (BldA) [Mass fraction] 99 % Jose Ramon Medina MD Work Phone: [facility] 11-16-2024 10:55-0500 Systolic blood pressure 154 mm[Hg] Jose Ramon Medina MD Work Phone: [facility] 08-23-2024 10:51-0400 Body height 175.26 cm [facility] 08-23-2024 10:51-0400 Body mass index (BMI) [Ratio] 34.3 kg/m2 [facility] 08-23-2024 10:51-0400 Body temperature 97.4 [degF] [facility] 08-23-2024 10:51-0400 Body weight 104.89 kg [facility] 08-23-2024 10:51-0400 Diastolic blood pressure 68 mm[Hg] [facility] 08-23-2024 10:51-0400 Heart rate 69 /min [facility] 08-23-2024 10:51-0400 Respiratory rate 14 /min [facility] 08-23-2024 10:51-0400 SaO2% (BldA) [Mass fraction] 97 % [facility] 08-23-2024 10:51-0400 Systolic blood pressure 149 mm[Hg] [facility] 05-24-2024 11:05-0400 Body height 175.26 cm [facility] 05-24-2024 11:05-0400 Body mass index (BMI) [Ratio] 34.4 kg/m2 [facility] 05-24-2024 11:05-0400 Body temperature 97.2 [degF] [facility] 05-24-2024 11:05-0400 Body weight 105.24 kg [facility] 05-24-2024 11:05-0400 Diastolic blood pressure 67 mm[Hg] [facility] 05-24-2024 11:05-0400 Heart rate 70 /min [facility] 05-24-2024 11:05-0400 Respiratory rate 12 /min [facility] 05-24-2024 11:05-0400 SaO2% (BldA) [Mass fraction] 98 % [facility] 05-24-2024 11:05-0400 Systolic blood pressure 137 mm[Hg] [facility] 01-26-2024 12:04-0500 Body height 175.26 cm [facility] 01-26-2024 12:04-0500 Body mass index (BMI) [Ratio] 34.7 kg/m2 [facility] 01-26-2024 12:04-0500 Body temperature 98.1 [degF] [facility] 01-26-2024 12:04-0500 Body weight 106.31 kg [facility] 01-26-2024 12:04-0500 Diastolic blood pressure 78 mm[Hg] [facility] 01-26-2024 12:04-0500 Heart rate 74 /min [facility] 01-26-2024 12:04-0500 Respiratory rate 16 /min [facility] 01-26-2024 12:04-0500 SaO2% (BldA) [Mass fraction] 96 % [facility] 01-26-2024 12:04-0500 Systolic blood pressure 149 mm[Hg] [facility] 2024 09:24-0500 Body height 154.94 cm [facility] 2024 09:24-0500 Body mass index (BMI) [Ratio] 45 kg/m2 [facility] 2024 09:24-0500 Body temperature 98.6 [degF] [facility] 2024 09:24-0500 Body weight 108.06 kg [facility] 2024 09:24-0500 Diastolic blood pressure 82 mm[Hg] [facility] 2024 09:24-0500 Heart rate 72 /min [facility] 2024 09:24-0500 Respiratory rate 16 /min [facility] 2024 09:24-0500 SaO2% (BldA) [Mass fraction] 97 % [facility] 2024 09:24-0500 Systolic blood pressure 150 mm[Hg] [facility] 10-27-2023 07:40-0500 Diastolic blood pressure 78 mm[Hg] Gracia Washington MD Work Phone: [facility] 10-27-2023 07:40-0500 Heart rate 74 /min Gracia Washington MD Work Phone: [facility] 10-27-2023 07:40-0500 Systolic blood pressure 188 mm[Hg] Gracia Washington MD Work Phone: [facility] 10-25-2023 11:40-0500 Body height 175.26 cm [facility] 10-25-2023 11:40-0500 Body mass index (BMI) [Ratio] 34.8 kg/m2 [facility] 10-25-2023 11:40-0500 Body temperature 98.1 [degF] [facility] 10-25-2023 11:40-0500 Body weight 106.6 kg [facility] 10-25-2023 11:40-0500 Diastolic blood pressure 73 mm[Hg] [facility] 10-25-2023 11:40-0500 Heart rate 76 /min [facility] 10-25-2023 11:40-0500 Respiratory rate 16 /min [facility] 10-25-2023 11:40-0500 SaO2% (BldA) [Mass fraction] 96 % [facility] 10-25-2023 11:40-0500 Systolic blood pressure 147 mm[Hg] [facility] 10-19-2023 10:05-0500 Body height 177.8 cm [facility] 10-19-2023 10:01-0500 Body mass index (BMI) [Ratio] 33.7 kg/m2 [facility] 10-19-2023 10:01-0500 Body weight 106.59 kg [facility] 10-19-2023 10:01-0500 Diastolic blood pressure 75 mm[Hg] [facility] 10-19-2023 10:01-0500 Heart rate 63 /min [facility] 10-19-2023 10:01-0500 Respiratory rate 18 /min [facility] 10-19-2023 10:01-0500 Systolic blood pressure 147 mm[Hg] [facility] 09-24-2023 11:30-0400 Body height 175.26 cm [facility] 09-24-2023 11:30-0400 Body mass index (BMI) [Ratio] 33.5 kg/m2 [facility] 09-24-2023 11:30-0400 Body temperature 98.6 [degF] [facility] 09-24-2023 11:30-0400 Body weight 102.51 kg [facility] 09-24-2023 11:30-0400 Diastolic blood pressure 84 mm[Hg] [facility] 09-24-2023 11:30-0400 Heart rate 61 /min [facility] 09-24-2023 11:30-0400 Respiratory rate 16 /min [facility] 09-24-2023 11:30-0400 SaO2% (BldA) [Mass fraction] 98 % [facility] 09-24-2023 11:30-0400 Systolic blood pressure 153 mm[Hg] [facility] 08-03-2023 13:23-0400 Body height 175.26 cm [facility] 08-03-2023 13:23-0400 Body mass index (BMI) [Ratio] 32.9 kg/m2 [facility] 08-03-2023 13:23-0400 Body temperature 98.6 [degF] [facility] 08-03-2023 13:23-0400 Body weight 100.7 kg [facility] 08-03-2023 13:23-0400 Diastolic blood pressure 70 mm[Hg] [facility] 08-03-2023 13:23-0400 Heart rate 70 /min [facility] 08-03-2023 13:23-0400 Respiratory rate 16 /min [facility] 08-03-2023 13:23-0400 SaO2% (BldA) [Mass fraction] 97 % [facility] 08-03-2023 13:23-0400 Systolic blood pressure 147 mm[Hg] [facility] 07-19-2023 14:07-0400 Body height 175.26 cm [facility] 07-19-2023 14:07-0400 Body mass index (BMI) [Ratio] 32.8 kg/m2 [facility] 07-19-2023 14:07-0400 Body temperature 98.1 [degF] [facility] 07-19-2023 14:07-0400 Body weight 100.25 kg [facility] 07-19-2023 14:07-0400 Diastolic blood pressure 74 mm[Hg] [facility] 07-19-2023 14:07-0400 Heart rate 63 /min [facility] 07-19-2023 14:07-0400 Respiratory rate 20 /min [facility] 07-19-2023 14:07-0400 SaO2% (BldA) [Mass fraction] 98 % [facility] 07-19-2023 14:07-0400 Systolic blood pressure 178 mm[Hg] [facility] 06-25-2023 11:59-0400 Body height 177.8 cm [facility] 06-25-2023 11:59-0400 Body mass index (BMI) [Ratio] 30.9 kg/m2 [facility] 06-25-2023 11:59-0400 Body temperature 98.8 [degF] [facility] 06-25-2023 11:59-0400 Body weight 97.52 kg [facility] 06-25-2023 11:59-0400 Diastolic blood pressure 75 mm[Hg] [facility] 06-25-2023 11:59-0400 Heart rate 69 /min [facility] 06-25-2023 11:59-0400 Respiratory rate 18 /min [facility] 06-25-2023 11:59-0400 SaO2% (BldA) [Mass fraction] 96 % [facility] 06-25-2023 11:59-0400 Systolic blood pressure 183 mm[Hg] [facility] 06-09-2023 09:41-0400 Body height 177.8 cm [facility] 06-09-2023 09:41-0400 Body mass index (BMI) [Ratio] 31.8 kg/m2 [facility] 06-09-2023 09:41-0400 Body temperature 98.3 [degF] [facility] 06-09-2023 09:41-0400 Body weight 100.47 kg [facility] 06-09-2023 09:41-0400 Diastolic blood pressure 80 mm[Hg] [facility] 06-09-2023 09:41-0400 Heart rate 62 /min [facility] 06-09-2023 09:41-0400 Respiratory rate 16 /min [facility] 06-09-2023 09:41-0400 SaO2% (BldA) [Mass fraction] 98 % [facility] 06-09-2023 09:41-0400 Systolic blood pressure 170 mm[Hg] [facility] 06-05-2023 11:46-0400 Body temperature 97.9 [degF] Sherlyn Athy PA-C Work Phone: [facility] 06-05-2023 11:46-0400 Body weight 98.88 kg Sherlyn Athy PA-C Work Phone: [facility] 06-05-2023 11:46-0400 Diastolic blood pressure 74 mm[Hg] Sherlyn Athy PA-C Work Phone: [facility] 06-05-2023 11:46-0400 Heart rate 72 /min Sherlyn Athy PA-C Work Phone: [facility] 06-05-2023 11:46-0400 Respiratory rate 18 /min Sherlyn Athy PA-C Work Phone: [facility] 06-05-2023 11:46-0400 SaO2% (BldA) [Mass fraction] 97 % Sherlyn Athy PA-C Work Phone: [facility] 06-05-2023 11:46-0400 Systolic blood pressure 142 mm[Hg] Sherlyn Athy PA-C Work Phone: [facility] 03-21-2023 09:46-0400 Body height 177.8 cm Out [facility] 03-21-2023 09:46-0400 Body mass index (BMI) [Ratio] 30.1 kg/m2 Out [facility] 03-21-2023 09:46-0400 Body temperature 97.5 [degF] Out [facility] 03-21-2023 09:46-0400 Body weight 95.25 kg Out [facility] 03-21-2023 09:46-0400 Diastolic blood pressure 69 mm[Hg] Out [facility] 03-21-2023 09:46-0400 Heart rate 82 /min Out [facility] 03-21-2023 09:46-0400 Respiratory rate 14 /min Out [facility] 03-21-2023 09:46-0400 SaO2% (BldA) [Mass fraction] 99 % [facility] 03-21-2023 09:46-0400 Systolic blood pressure 156 mm[Hg] Out [facility] 02-09-2023 13:48-0400 Body height 177.8 cm Out [facility] 02-09-2023 13:48-0400 Diastolic blood pressure 78 mm[Hg] Out [facility] 02-09-2023 13:48-0400 Systolic blood pressure 128 mm[Hg] Out [facility] 02-09-2023 13:48-0400 Body mass index (BMI) [Ratio] 32.3 kg/m2 Out [facility] 02-09-2023 13:48-0400 Body weight 102.05 kg Out [facility] 02-09-2023 13:48-0400 Heart rate 65 /min Out [facility] 02-09-2023 13:48-0400 Respiratory rate 20 /min Out [facility] 02-09-2023 13:48-0400 SaO2% (BldA) [Mass fraction] 98 % Out [facility] 01-01-2023 11:57-0500 Diastolic blood pressure 68 mm[Hg] Out [facility] 01-01-2023 11:57-0500 Heart rate 73 /min Out [facility] 01-01-2023 11:57-0500 Respiratory rate 16 /min Out [facility] 01-01-2023 11:57-0500 SaO2% (BldA) [Mass fraction] 98 % Out [facility] 01-01-2023 11:57-0500 Systolic blood pressure 169 mm[Hg] Out [facility] 01-01-2023 11:16-0500 Body height 177.8 cm Out [facility] 01-01-2023 11:16-0500 Body mass index (BMI) [Ratio] 30.9 kg/m2 Out [facility] 01-01-2023 11:16-0500 Body temperature 97.1 [degF] Out [facility] 01-01-2023 11:16-0500 Body weight 97.97 kg Out [facility] 12-14-2022 09:23-0500 Body height 177.8 cm Out [facility] 12-14-2022 09:23-0500 Body mass index (BMI) [Ratio] 32.4 kg/m2 Out [facility] 12-14-2022 09:23-0500 Body temperature 96.8 [degF] Out [facility] 12-14-2022 09:23-0500 Body weight 102.62 kg Out [facility] 12-14-2022 09:23-0500 Diastolic blood pressure 79 mm[Hg] Out [facility] 12-14-2022 09:23-0500 Heart rate 75 /min Out [facility] 12-14-2022 09:23-0500 Respiratory rate 20 /min Out [facility] 12-14-2022 09:23-0500 SaO2% (BldA) [Mass fraction] 94 % Out [facility] 12-14-2022 09:23-0500 Systolic blood pressure 134 mm[Hg] Out [facility] 08-20-2022 13:00-0400 Body height 177.8 cm Out [facility] Work Phone: 08-20-2022 13:00-0400 Body mass index (BMI) [Ratio] 33.5 kg/m2 Out [facility] Work Phone: 08-20-2022 13:00-0400 Body weight 106.14 kg Out [facility] Work Phone: 08-20-2022 13:00-0400 Diastolic blood pressure 67 mm[Hg] Out [facility] Work Phone: 08-20-2022 13:00-0400 Heart rate 67 /min Out [facility] Work Phone: 08-20-2022 13:00-0400 Respiratory rate 20 /min Out [facility] Work Phone: 08-20-2022 13:00-0400 Systolic blood pressure 128 mm[Hg] [place] [facility] Work Phone: 06-08-2022 13:26-0400 Body height 177.8 cm No Primary Care Physician [facility] Work Phone: 06-08-2022 13:26-0400 Body mass index (BMI) [Ratio] 33.5 kg/m2 No Primary Care Physician [facility] Work Phone: 06-08-2022 13:26-0400 Body temperature 96.8 [degF] No Primary Care Physician [facility] Work Phone: 06-08-2022 13:26-0400 Body weight 105.8 kg No Primary Care Physician [facility] Work Phone: 06-08-2022 13:26-0400 Diastolic blood pressure 86 mm[Hg] No Primary Care Physician [facility] Work Phone: 06-08-2022 13:26-0400 Heart rate 70 /min No Primary Care Physician [facility] Work Phone: 06-08-2022 13:26-0400 Respiratory rate 18 /min No Primary Care Physician [facility] Work Phone: 06-08-2022 13:26-0400 SaO2% (BldA) [Mass fraction] 98 % No Primary Care Physician [facility] Work Phone: 06-08-2022 13:26-0400 Systolic blood pressure 142 mm[Hg] No Primary Care Physician [facility] Work Phone: 05-19-2022 13:35-0400 Body height 177.[address] Tolu Franz Work Phone: [facility] Work Phone: 05-19-2022 13:35-0400 Body weight 105.[address] Tolu Franz Work Phone: [facility] Work Phone: 03-29-2022 00:24-0400 Body mass index (BMI) [Ratio] 34.8 kg/m2 Dr. Tolu Franz Work Phone: [facility] Work Phone: 02-27-2022 00:24-0400 Body mass index (BMI) [Ratio] 34.8 kg/m2 Dr. Tolu Franz Work Phone: [facility] Work Phone: 02-27-2022 00:24-0400 Body weight 113.[address] Tolu Franz Work Phone: [facility] Work Phone: 02-25-2022 13:40-0400 Body mass index (BMI) [Ratio] 35.3 kg/m2 Dr. Tolu Franz Work Phone: [facility] Work Phone: 02-25-2022 13:40-0400 Body temperature 97 [degF] Dr. Tolu Franz Work Phone: [facility] Work Phone: 02-25-2022 13:40-0400 Body weight 111.[address] Tolu Franz Work Phone: [facility] Work Phone: 02-25-2022 13:40-0400 Diastolic blood pressure 84 mm[Hg] Dr. Tolu Franz Work Phone: [facility] Work Phone: 02-25-2022 13:40-0400 Heart rate 83 /min Dr. Tolu Franz Work Phone: [facility] Work Phone: 02-25-2022 13:40-0400 Respiratory rate 20 /min Dr. Tolu Franz Work Phone: [facility] Work Phone: 02-25-2022 13:40-0400 SaO2% (BldA) [Mass fraction] 96 % Dr. Tolu Franz Work Phone: [facility] Work Phone: 02-25-2022 13:40-0400 Systolic blood pressure 162 mm[Hg] Dr. Tolu Franz Work Phone: [facility] Work Phone: 02-25-2022 13:40-0400 Body height 177.[address] Tolu Franz Work Phone: [facility] Work Phone: 02-25-2022 13:40-0400 Body mass index (BMI) [Ratio] 35.3 kg/m2 Dr. Tolu Franz Work Phone: [facility] Work Phone: 02-25-2022 13:40-0400 Body temperature 97 [degF] Dr. Tolu Franz Work Phone: [facility] Work Phone: 02-25-2022 13:40-0400 Body weight 111.[address] Tolu Franz Work Phone: [facility] Work Phone: 02-25-2022 13:40-0400 Diastolic blood pressure 84 mm[Hg] Dr. Tolu Franz Work Phone: [facility] Work Phone: 02-25-2022 13:40-0400 Heart rate 83 /min Dr. Tolu Franz Work Phone: [facility] Work Phone: 02-25-2022 13:40-0400 Respiratory rate 20 /min Dr. Tolu Franz Work Phone: [facility] Work Phone: 02-25-2022 13:40-0400 SaO2% (BldA) [Mass fraction] 96 % Dr. Tolu Franz Work Phone: [facility] Work Phone: 02-25-2022 13:40-0400 Systolic blood pressure 162 mm[Hg] Dr. Tolu Franz Work Phone: [facility] Work Phone: 02-16-2022 13:44-0400 Body weight 110.[address] Tolu Franz Work Phone: [facility] Work Phone: 02-16-2022 13:44-0400 Diastolic blood pressure 62 mm[Hg] Dr. Tolu Franz Work Phone: [facility] Work Phone: 02-16-2022 13:44-0400 Heart rate 68 /min Dr. Tolu Franz Work Phone: [facility] Work Phone: 02-16-2022 13:44-0400 Respiratory rate 18 /min Dr. Tolu Franz Work Phone: [facility] Work Phone: 02-16-2022 13:44-0400 Systolic blood pressure 150 mm[Hg] Dr. Tolu Franz Work Phone: [facility] Work Phone: 02-16-2022 13:44-0400 Body weight 110.[address] Tolu Franz Work Phone: [facility] Work Phone: 02-16-2022 13:44-0400 Diastolic blood pressure 62 mm[Hg] Dr. Tolu Franz Work Phone: [facility] Work Phone: 02-16-2022 13:44-0400 Heart rate 68 /min Dr. Tolu Franz Work Phone: [facility] Work Phone: 02-16-2022 13:44-0400 Respiratory rate 18 /min Dr. Tolu Franz Work Phone: [facility] Work Phone: 02-16-2022 13:44-0400 Systolic blood pressure 150 mm[Hg] Dr. Tolu Franz Work Phone: [facility] Work Phone: 01-29-2022 18:21-0500 Body weight 113.[address] Tolu Franz Work Phone: [facility] Work Phone: 01-29-2022 17:21-0500 Body weight 113.[address] Tolu Franz Work Phone: [facility] Work Phone: 01-27-2022 00:23-0500 Body mass index (BMI) [Ratio] 34.8 kg/m2 Dr. Tolu Franz Work Phone: [facility] Work Phone: 01-26-2022 23:23-0500 Body mass index (BMI) [Ratio] 34.8 kg/m2 Dr. oTlu Franz Work Phone: [facility] Work Phone: 12-31-2021 12:40-0500 Body weight 111.[address] Tolu Franz Work Phone: [facility] Work Phone: 12-29-2021 23:21-0500 Body mass index (BMI) [Ratio] 34.8 kg/m2 Dr. Tolu Franz Work Phone: [facility] Work Phone: 12-11-2021 16:13-0500 Body weight 111.[address] Tolu Franz Work Phone: [facility] Work Phone: 11-28-2021 23:17-0500 Body mass index (BMI) [Ratio] 34.8 kg/m2 Dr. Tolu Franz Work Phone: [facility] Work Phone: 11-18-2021 11:54-0500 Body weight 112.[address] Tolu Franz Work Phone: [facility] Work Phone: 11-13-2021 11:46-0500 Body weight 111.[address] Tolu Franz Work Phone: [facility] Work Phone: 10-28-2021 23:17-0500 Body mass index (BMI) [Ratio] 34.8 kg/m2 Dr. Tolu Franz Work Phone: [facility] Work Phone: 04-11-2021 15:30-0400 Body mass index (BMI) [Ratio] 34.8 kg/m2 Dr. Tolu Franz Work Phone: [facility] Work Phone: 04-11-2021 15:30-0400 Body mass index (BMI) [Ratio] 34.8 kg/m2 Dr. Tolu Franz Work Phone: [facility] Work Phone: Encounters Encounter Date Encounter Type Care Provider Facility Start: 08-06-2025 End: 08-06-2025 ambulatory Dao Raphael MD Work Phone: -Dao Raphael Jr., MD Start: 08-06-2025 End: 08-06-2025 Patient encounter procedure Dao Raphael MD -Dao Raphael Jr., MD Work Phone: Start: 08-02-2025 End: 08-02-2025 Patient encounter procedure José Sheikh APRN.CNP Work Phone: Dermatology Comment on above: [place] (actinic keratosi s) (Primary Dx); Multiple benign nevi; Seborrheic keratosis; Lentigines; Deleon angioma; Personal history of malignant melanoma of skin; History of nonmelanoma skin cancer; Skin cancer screening Start: 08-02-2025 End: 08-02-2025 ambulatory JOSÉ JAMAZI Facility:[facility] Start: 08-02-2025 End: 08-02-[address] Parminder Parks MD -[facility] Work Phone: Start: 08-02-2025 End: 08-02-[address] Tolu Franz MD Work Phone: -[facility] Start: 07-31-[address] Tolu Franz MD -Cardiac Rehab Work Phone: Start: 07-31-2025 ambulatory Tolu Franz Facility :[facility] Start: 07-23-2025 ambulatory Charmaine Yuan NP Facili ty:[facility] Start: 07-23-2025 Non-patient / Non-visit Dr. Gautam Barnes DO [facility] Start: 07-23-2025 End: 07-23-2025 Admission to same day surgery center Dr. Parminder Parks MD -Delivery Mgr/Special Procedures Work Phone: Start: 07-23-2025 End: 07-23-[address] 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 Tolu Franz MD Work Phone: -Laboratory Start: 07-05-2025 End: 07-05-2025 Patient encounter procedure Vernon Prado DO -Laboratory Work Phone: Start: 07-05-2025 End: 07-05-2025 ambulatory Vernon Prado Facility:[facility] Start: 07-03-2025 End: 07-29-[address] Tolu Franz MD -Cardiac Rehab Work Phone: Start: 07-03-[address] Tolu Franz MD -Cardiac Rehab Work Phone: Start: 07-03-2025 End: 07-29-[address] Tolu Franz MD Work Phone: -Cardiac Rehab Start: 06-28-2025 End: 06-28-2025 Patient encounter procedure Charmaine BURGER -[facility] Work Phone: Start: 06-28-2025 End: 06-28-[address] Tolu Franz MD Work Phone: -[facility] Start: 06-28-2025 End: 06-28-[address] Tolu Franz MD -Cardiac Rehab Work Phone: Start: 06-28-[address] Tolu Franz MD -Cardiac Rehab Work Phone: Start: 06-26-2025 End: 06-26-[address] Tolu Franz MD Work Phone: -Laboratory Start: 06-26-2025 End: 06-26-2025 Patient encounter procedure Vernon Johan DO -Laboratory Work Phone: Start: 06-26-2025 End: 06-26-2025 Patient encounter procedure Vernon Prado DO -[facility] Work Phone: Start: 06-26-2025 End: 06-26-[address] Tolu Franz MD Work Phone: -[facility] Start: 06-26-2025 End: 06-26-2025 ambulatory Vernon Friend Facility:[facility] Start: 06-21-2025 End: 08-14-2025 Admission to same day surgery center Gracia Washington MD Work Phone: Dermatology Comment on above: [facility] surgery upcommin g Start: 06-21-2025 End: 08-14-2025 ambulatory Gracia Washington MD Work Phone: Dermatology Start: 06-19-2025 End: 06-19-2025 Emergency department patient visit Dr. Tolu Franz MD Work Phone: -Emergency Department Work Phone: Start: 06-19-[address] Tolu Franz MD -Cardiac Rehab Work Phone: Start: 06-14-2025 End: 06-14-2025 Emergency department patient visit Dr. Tolu Franz MD Work Phone: -Emergency Department Work Phone: Start: 06-14-2025 End: 06-14-2025 Subsequent hospital visit by physician Xr [facility] Work Phone: Radiology Comment on above: Fever, unspecified f ever cause [R50.9] Start: 06-14-2025 End: 06-14-2025 Office outpatient new 60 minutes Kris Crouch MD Work Phone: [facility] Comment on above: Fever, unspecified f ever cause (Primary Dx); URI, acute; Dyspnea, unspecified type; Chest pain, unspecified type Start: 06-14-2025 End: 06-14-2025 ambulatory DAO ARPHAEL JR Facility:[facility] Start: 06-14-[address] Tolu Franz MD -Cardiac Rehab Work Phone: Start: 05-24-2025 End: 05-28-[address] Tolu Franz MD Work Phone: -Cardiac Rehab Start: 05-24-2025 End: 05-28-[address] Tolu Franz MD -Cardiac Rehab Work Phone: Start: 05-11-2025 End: 07-11-2025 Follow-up encounter José Sheikh APRN.CNP Work Phone: Dermatology Start: 05-10-2025 End: 05-10-2025 Patient encounter procedure José Sheikh BUYING AGENT.[employer]TRIF[employer]AL CASTING MACHINE TENDER Work Phone: Dermatology Comment on above: Neoplasm of unspecif ied behavior of bone, soft tissue, and skin (Primary Dx); [place] (actinic keratosis); Multiple benign nevi; Seborrheic keratosis; Lentigines; Deleon angioma; Personal history of malignant melanoma of skin; History of nonmelanoma skin cancer; Skin cancer screening Start: 05-10-2025 End: 05-10-2025 ambulatory JOSÉ SHEIKH Facility:[facility] Start: 04-26-2025 End: 04-28-[address] Parminder Parks MD Work Phone: [facility] Work Phone: Start: 04-26-2025 End: 04-28-[address] Tolu Franz MD -Cardiac Rehab Work Phone: Start: 04-18-2025 End: 04-18-2025 ambulatory [facility] Work Phone: Start: 04-18-2025 End: 04-18-2025 Patient encounter procedure Dao Raphael MD [facility] [employer]-Dao Raphael Jr., MD Work Phone: Start: 04-12-2025 End: 04-12-2025 Patient encounter procedure Nurse Ozzie [facility] Work Phone: Dermatology Comment on above: [place] (actinic keratosi s) (Primary Dx) Start: 04-12-2025 End: 04-12-2025 ambulatory DAO RAPHAEL JR Facility:[facility] Start: 03-27-2025 End: 03-28-2025 ambulatory Out of Town Doctor Facility:[facility] Start: 03-27-2025 End: 03-28-[address] Tolu Franz MD -Cardiac Rehab Work Phone: Start: 03-06-2025 End: 03-06-2025 Patient encounter procedure Hortencia Gerard PA-C Work Phone: Urology Comment on above: BPH associated with nocturia (Primary Dx); Urinary frequency Start: 03-06-2025 End: 03-06-2025 ambulatory HORTENCIA MOUSTAPHA Facility:[facility] Start: 03-02-2025 End: 05-02-2025 Follow-up encounter Marly Murrieta APRN.CENTRIFUGAL CASTING MACHINE TENDER Work Phone: Dermatology [facility] [place] Start: 03-01-2025 End: 03-01-2025 [facility] Start: 03-01-2025 End: 03-01-2025 Patient encounter procedure José Sheikh BUYING AGENT.CENTRIFUGAL CASTING MACHINE TENDER Work Phone: Dermatology Comment on above: Neoplasm of unspecif ied behavior of bone, soft tissue, and skin (Primary Dx) Start: 02-23-2025 End: 02-23-2025 Orders Only Hortencia Moustapha PA-C Work Phone: Urology Comment on above: BPH with urinary obs truction (Primary Dx) kaushik on left fore ar m Start: 02-22-2025 End: 02-26-2025 ambulatory DAO RAPHAEL Work Phone: [facility] Work Phone: Start: 02-22-2025 End: 02-26-[address] Tolu Franz MD -Cardiac Rehab Work Phone: Start: 02-01-2025 End: 02-01-2025 ambulatory JOSÉ SHEIKH Facility:[facility] Start: 02-01-2025 End: 02-01-2025 Patient encounter procedure José Sheikh BUYING AGENT.CENTRIFUGAL CASTING MACHINE TENDER Work Phone: Dermatology Comment on above: AK (actinic keratosi s) (Primary Dx); Multiple benign nevi; Seborrheic keratosis; Lentigines; Deleon angioma; History of nonmelanoma skin cancer; Personal history of malignant melanoma of skin; Skin cancer screening Start: 01-25-2025 End: 01-26-2025 ambulatory Tolu Franz Facility:[facility] Start: 01-25-2025 End: 01-26-[address] Tolu Franz MD -Cardiac Rehab Work Phone: Start: 01-17-2025 End: 01-17-2025 Patient encounter procedure Holli Arnulfo LEAD PROGRAMMER-C -[facility] Work Phone: Start: 01-17-2025 End: 01-17-2025 ambulatory Holli Arnulfo Facility:[facility] Start: 01-15-2025 End: 01-15-2025 Patient encounter procedure Vernon Prado DO -[facility] Work Phone: Start: 01-15-2025 End: 01-15-2025 ambulatory Vernon Prado Facility:[facility] Start: 01-02-2025 ambulatory Parminder Parks [facility] Start: 01-02-2025 Non-patient / Non-visit Dr. Parminder Parks MD -[facility] Start: 01-02-2025 End: 01-02-[address] Parminder Parks MD -Cardiovascular Services Work Phone: Start: 01-02-2025 End: 01-02-2025 ambulatory Parminder Parks Facility:[facility] Start: 12-28-2024 End: 12-29-2024 ambulatory Tolu Franz Facility:[facility] Start: 12-28-2024 End: 12-29-[address] Tolu Franz MD -Cardiac Rehab Work Phone: Start: 12-26-2024 End: 12-26-[address] Parminder Parks MD -[facility] Work Phone: Start: 12-26-2024 End: 12-26-2024 ambulatory Parminder Parks Facility:[facility] Start: 12-22-2024 End: 12-22-2024 ambulatory [facility] Work Phone: Start: 12-22-2024 End: 12-22-2024 Patient encounter procedure Dao Raphael MD [facility] [employer]Dao Raphael Jr., MD Work Phone: Start: 12-21-2024 End: 12-21-2024 ambulatory JOSE RAMON MEDINA Facility:[facility] Start: 12-21-2024 End: 12-21-2024 Postop follow up visit related to original px Jose Ramon Medina MD Work Phone: General Surgery Comment on above: 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) Start: 11-09-2024 End: 11-13-2024 Telephone encounter Corrie Stone PA-C Work Phone: Dermatology Comment on above: Results; Melanoma Start: 11-02-2024 End: 11-02-2024 ambulatory CORRIE STONE Facility:[facility] Start: 11-02-2024 End: 11-02-2024 Patient encounter procedure Corrie Stone PA-C Work Phone: Dermatology Comment on above: Skin exam, screening for cancer (Primary Dx); Multiple benign nevi; Lentigines; Deleon angioma; Seborrheic keratosis; History of nonmelanoma skin cancer; Actinic keratosis; Neoplasm of unspecified behavior of bone, soft tissue, and skin Start: 10-24-2024 End: 10-28-2024 ambulatory [facility] Facility:[facility] Start: 10-19-2024 End: 10-19-2024 ambulatory José Sheikh APRN.CNP Work Phone: Dermatology Comment on above: Reschedule apointmen t Start: 10-17-2024 End: 10-17-2024 Refill José Sheikh APRN.CNP Work Phone: Dermatology Comment on above: Refill Request Start: 10-17-2024 End: 10-17-2024 Telephone encounter José Sheikh APRN.CNP Work Phone: Dermatology Comment on above: Appointment Cancelle d (10/17/24 - Provider OUT ) Start: 10-10-2024 End: 10-10-2024 ambulatory HORTENCIA GERARD Facility:[facility] Start: 10-10-2024 End: 10-10-2024 Patient encounter procedure Hortencia Gerard PA-C Work Phone: Urology Comment on above: BPH associated with nocturia (Primary Dx); Urinary frequency; Urgency of urination; Slowing of urinary stream; Impotence Start: 09-26-2024 End: 09-28-2024 ambulatory [facility] Facility:[facility] Start: 08-24-2024 End: 08-28-2024 ambulatory [facility] Facility:[facility] Start: 08-23-2024 End: 08-23-2024 ambulatory [facility] Work Phone: Start: 08-23-2024 End: 08-23-2024 Patient encounter procedure [facility] [employer]Dao Raphael Jr., MD Work Phone: Start: 07-26-2024 End: 07-26-2024 Refill Marly Murrieta APRN.CENTRIFUGAL CASTING MACHINE TENDER Work Phone: Dermatology Comment on above: Refill Request Start: 07-25-2024 End: 07-25-2024 Telephone encounter Hortencia Gerard PA-C Work Phone: Urology Start: 07-20-2024 End: 07-20-2024 Subsequent hospital visit by physician [facility] Work Phone: Radiology Comment on above: Scrotal skin lesion [N50.9] Start: 07-17-2024 End: 07-17-2024 Orders Only Hortencia Gerard PA-C Work Phone: Urology Comment on above: Scrotal skin lesion (Primary Dx) Start: 07-14-2024 End: 07-14-2024 Patient encounter procedure José Sheikh APRN.CENTRIFUGAL CASTING MACHINE TENDER Work Phone: Dermatology Comment on above: AK (actinic keratosi s) (Primary Dx) Start: 05-24-2024 End: 05-24-2024 ambulatory [facility] Work Phone: Start: 05-24-2024 End: 05-24-2024 Patient encounter procedure Tuebora-Dao Raphael Jr., MD Work Phone: Start: 05-10-2024 End: 05-10-2024 Patient encounter procedure Nurse Ozzie [facility] Work Phone: Dermatology Comment on above: AK (actinic keratosi s) (Primary Dx) Start: 04-07-2024 End: 04-07-2024 Patient encounter procedure José Sheikh APRN.CENTRIFUGAL CASTING MACHINE TENDER Work Phone: Dermatology Comment on above: AK (actinic keratosi s) (Primary Dx); 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) Start: 03-28-2024 End: 03-28-2024 ambulatory [facility] Work Phone: Start: 03-28-2024 End: 03-28-2024 Discharged Recurring [facility]-Cardiac Rehab Work Phone: Start: 02-24-2024 End: 02-27-2024 ambulatory [facility] Work Phone: Start: 02-24-2024 End: 02-27-2024 Discharged Recurring [facility]-Cardiac Rehab Work Phone: Start: 02-11-2024 End: 02-11-2024 Patient encounter procedure José Sheikh APRN.CENTRIFUGAL CASTING MACHINE TENDER Work Phone: Dermatology Comment on above: Nummular dermatitis (Primary Dx); Inflamed seborrheic keratosis; AK (actinic keratosis) Start: 01-27-2024 End: 01-27-2024 ambulatory [facility] Work Phone: Start: 01-27-2024 End: 01-27-2024 Discharged Recurring [facility]-Cardiac Rehab Work Phone: Start: 01-26-2024 End: 01-26-2024 ambulatory Dao Raphael Jr Facility:[facility] Start: 01-26-2024 End: 01-26-2024 ambulatory MD Dao Raphael Jr Work Phone: [facility] Work Phone: Start: 01-26-2024 End: 01-26-2024 Patient encounter procedure MD Dao Raphael Jr Work Phone: [facility]-Lab - Dr. Raphael Start: 01-26-2024 End: 01-26-2024 ambulatory [facility] Work Phone: Start: 01-26-2024 End: 01-26-2024 Patient encounter procedure [facility] [employer]Dao Raphael Jr., MD Work Phone: Start: 01-26-2024 End: 01-26-2024 Physical examination [facility] Start: 2024 End: 2024 Patient encounter procedure DAO RAPHAEL [facility] Endocrinology Work Phone: Start: 01-17-2024 End: 01-17-2024 Patient encounter procedure DAO RAPHAEL [facility] Gastroenterology Work Phone: Start: 12-28-2023 End: 12-29-2023 ambulatory [facility] Work Phone: Start: 12-28-2023 End: 12-29-2023 [facility] Start: 11-25-2023 End: 11-25-2023 Subsequent hospital visit by physician [facility] Work Phone: Radiology Comment on above: Acute cough [R05.1] Start: 11-11-2023 End: 11-28-2023 ambulatory [facility] Work Phone: Start: 11-11-2023 End: 11-28-2023 [facility] Start: 10-28-2023 End: 10-28-2023 ambulatory [facility] Work Phone: Start: 10-28-2023 End: 10-28-2023 [facility] Start: 10-27-2023 End: 10-27-2023 Patient encounter procedure Gracia Washington MD Work Phone: Dermatology Comment on above: Hypertension, unspec ified type (Primary Dx) Start: 10-25-2023 End: 10-25-2023 ambulatory [facility] Work Phone: Start: 10-25-2023 End: 10-25-2023 Patient encounter procedure Tuebora-Dao Raphael Jr., MD Work Phone: Start: 10-19-2023 End: 10-19-2023 Patient encounter procedure DAO RAPHAEL [facility] Work Phone: Start: 10-15-2023 Telephone encounter Gracia Washington MD Work Phone: Dermatology Start: 10-09-2023 ambulatory Gracia diego MD Work Phone: Dermatology Comment on above: Request change of tr eatment Start: 10-06-2023 End: 10-06-2023 Patient encounter procedure Gracia Washington MD Work Phone: Dermatology Comment on above: 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 Start: 09-28-2023 End: 09-28-2023 ambulatory [facility] Work Phone: Start: 09-28-2023 End: 09-28-2023 [facility] Start: 09-24-2023 End: 09-24-2023 ambulatory [facility] Work Phone: Start: 09-24-2023 End: 09-24-2023 Patient encounter procedure [facility] [employer]Dao Raphael Jr., MD Work Phone: Start: 09-21-2023 End: 09-12-2024 Telephone encounter José Sheikh APRN.CNP Work Phone: Dermatology Start: 08-26-2023 End: 08-28-2023 ambulatory [facility] Work Phone: Start: 08-26-2023 End: 08-28-2023 [facility] Start: 08-03-2023 End: 08-03-2023 Patient encounter procedure [facility] [employer]Dao Raphael Jr., MD Work Phone: Start: 07-29-2023 End: 07-29-2023 ambulatory [facility] Work Phone: Start: 07-29-2023 End: 07-29-2023 [facility] Start: 07-23-2023 End: 07-23-2023 Patient encounter procedure DAO RAPHAEL [facility] Work Phone: Start: 07-19-2023 End: 07-19-2023 Patient encounter procedure [facility] [employer]Dao Raphael Jr., MD Work Phone: Start: 07-01-2023 Telephone encounter José delgado BUYING AGENT.CENTRIFUGAL CASTING MACHINE TENDER Work Phone: Dermatology Comment on above: Patient Question Start: 06-29-2023 End: 06-29-2023 Patient encounter procedure José Sheikh BUYING AGENT.CENTRIFUGAL CASTING MACHINE TENDER Work Phone: Dermatology Comment on above: Rash and nonspecific skin eruption (Primary Dx) Start: 06-25-2023 End: 06-25-2023 ambulatory Dao Raphael Jr Facility:[facility] Start: 06-25-2023 End: 06-25-2023 ambulatory MD Dao Raphael Jr Work Phone: [facility] Work Phone: Start: 06-25-2023 End: 06-25-2023 Patient encounter procedure MD Dao Raphael Jr Work Phone: [facility]-Lab - Dr. Raphael Start: 06-25-2023 End: 06-25-2023 ambulatory [facility] Work Phone: Start: 06-25-2023 End: 06-25-2023 Patient encounter procedure [facility] [employer]Dao Raphael Jr., MD Work Phone: Start: 06-24-2023 End: 06-28-2023 Discharged Recurring DAO RAPHAEL [facility]-Cardiac Rehab Work Phone: Start: 06-09-2023 End: 06-09-2023 Patient encounter procedure DAO RAPHAEL [facility] Endocrinology Work Phone: Start: 06-07-2023 Telephone encounter Tawny fierro BUYING AGENT.CENTRIFUGAL CASTING MACHINE TENDER Work Phone: [facility] Comment on above: Results Start: 06-05-2023 End: 06-05-2023 Patient encounter procedure Sherlyn Monte PA-C Work Phone: [facility] Comment on above: Rash (Primary Dx) Start: 05-27-2023 End: 05-28-2023 ambulatory [place] [facility] Work Phone: Start: 05-27-2023 End: 05-28-2023 Discharged Recurring Out [facility]-Cardiac Rehab Work Phone: Start: 04-27-2023 End: 04-28-2023 ambulatory [place] [facility] Work Phone: Start: 04-27-2023 End: 04-28-2023 Discharged Recurring Out [facility]-Cardiac Rehab Start: 04-12-2023 Telephone encounter Hortencia ramírez PA-C Work Phone: Urology Comment on above: Results Start: 04-09-2023 End: 04-09-2023 Patient encounter procedure Ralph Felipe MD Work Phone: Urology Comment on above: Nocturia (Primary Dx ); Acute cystitis with hematuria; OAB (overactive bladder); Urinary frequency; BPH with obstruction/lower urinary tract symptoms Start: 03-30-2023 End: 03-30-2023 Patient encounter procedure José Sheikh APRN.CNP Work Phone: Dermatology Comment on above: Inflamed seborrheic keratosis (Primary Dx); AK (actinic keratosis) Start: 03-25-2023 End: 03-28-2023 Discharged Recurring Out [facility]-Cardiac Rehab Start: 03-23-2023 End: 03-23-2023 Patient encounter procedure Out [facility] G[facility] Start: 03-21-2023 End: 03-21-2023 Emergency department patient visit Out [facility]-Emergency Department Start: 03-18-2023 Registered Recurring Out [facility]-Cardiac Rehab Start: 02-25-2023 End: 02-26-2023 ambulatory [place] [facility] [employer] Work Phone: Start: 02-25-2023 End: 02-26-2023 Discharged Recurring [place] [facility]-Cardiac Rehab Start: 02-18-2023 End: 02-18-2023 Patient encounter procedure José Sheikh APRN.CENTRIFUGAL CASTING MACHINE TENDER Work Phone: Dermatology Comment on above: AK (actinic keratosi s) (Primary Dx); History of actinic keratosis Start: 02-09-2023 End: 02-09-2023 Patient encounter procedure [place] [facility] Start: 01-26-2023 End: 01-26-2023 Discharged Recurring [place] [facility]-Cardiac Rehab Start: 01-14-2023 Telephone encounter José delgado APRN.CENTRIFUGAL CASTING MACHINE TENDER Work Phone: Dermatology Comment on above: Results Start: 01-12-2023 End: 01-12-2023 Patient encounter procedure José Sheikh APRN.CENTRIFUGAL CASTING MACHINE TENDER Work Phone: Dermatology Comment on above: Neoplasm of unspecif ied behavior of bone, soft tissue, and skin (Primary Dx); Actinic keratosis; Seborrheic keratosis; Deleon angioma; Lentigines Start: 01-12-2023 Registered Recurring [place] [facility]Cardiac Re[facility] Start: 01-01-2023 End: 01-01-2023 ambulatory [place] [facility] [employer] Work Phone: Start: 01-01-2023 End: 01-01-2023 Patient encounter procedure [place] [facility] Start: 12-29-2022 End: 12-29-2022 ambulatory [place] [facility] [employer] Work Phone: Start: 12-29-2022 End: 12-29-2022 Discharged Recurring [place] [facility]Cardiac Re[facility] Start: 12-17-2022 Registered Recurring [place] [facility] Re[facility] Start: 12-14-2022 End: 12-14-2022 Patient encounter procedure [place] [facility] Endocrinology Start: 12-08-2022 End: 12-08-2022 ambulatory [place] [facility] Work Phone: Start: 12-08-2022 End: 12-08-2022 Patient encounter procedure [place] [facility]-Laboratory Start: 12-08-2022 End: 12-08-2022 Patient encounter procedure Out [facility] Gastroenterology Start: 11-26-2022 End: 11-28-2022 ambulatory [place] [facility] Work Phone: Start: 11-26-2022 End: 11-28-2022 Discharged Recurring [place] [facility]Cardiac Rehab Start: 10-27-2022 End: 10-28-2022 ambulatory [place] [facility] Work Phone: Start: 10-27-2022 End: 10-28-2022 Discharged Recurring [place] [facility]Cardiac Rehab Start: 10-12-2022 End: 10-12-2022 Patient encounter procedure José Sheikh APRN.CENTRIFUGAL CASTING MACHINE TENDER Work Phone: Dermatology Comment on above: AK (actinic keratosi s) (Primary Dx) Start: 09-17-2022 End: 09-28-2022 ambulatory [place] [facility] Work Phone: Start: 09-17-2022 End: 09-28-2022 Discharged Recurring [place] [facility]Cardiac Rehab Start: 09-17-2022 Registered Recurring [place] [facility] Start: 09-15-2022 End: 09-15-2022 ambulatory [place] [facility] Work Phone: Start: 09-15-2022 End: 09-15-2022 Patient encounter procedure [place] [facility]-Laboratory, Specimen Start: 09-14-2022 End: 09-14-2022 ambulatory [place] [facility] Work Phone: Start: 09-14-2022 End: 09-14-2022 Patient encounter procedure [place] [facility] Start: 09-14-2022 End: 09-14-2022 Patient encounter procedure [place] [facility] Gastroenterology Start: 08-27-2022 End: 08-28-2022 ambulatory [place] Doctor [facility] spital Work Phone: Start: 08-27-2022 End: 08-28-2022 Discharged Recurring [place] [facility]Cardiac Rehab Start: 08-20-2022 End: 08-20-2022 Patient encounter procedure [place] [facility] Start: 07-28-2022 End: 07-29-2022 ambulatory [place] Doctor [facility] sp[facility] Work Phone: Start: 07-28-2022 End: 07-29-2022 Discharged Recurring [place] [facility]Cardiac Re[facility] Start: 07-02-2022 End: 07-02-2022 Patient encounter procedure José Sheikh APRN.CNP Work Phone: Dermatology Comment on above: AK (actinic keratosi s) (Primary Dx); Multiple benign nevi; Seborrheic keratosis; Deleon angioma; History of nonmelanoma skin cancer Start: 06-25-2022 End: 06-28-2022 Discharged Recurring [place] [facility]Cardiac Rehab Start: 06-16-2022 Registered Recurring No Primar y Care Physician [facility]-Cardiac Rehab Start: 06-15-2022 End: 06-15-2022 Patient encounter procedure No Primary Care Physician [facility]-Laboratory, [facility] Start: 06-08-2022 End: 06-08-2022 Patient encounter procedure No Primary Care Physician [facility] Endocrinology Start: 05-28-2022 End: 05-28-2022 Discharged Recurring No Primary Care Physician [facility]-Cardiac Rehab Start: 05-28-[address] Tolu Franz Work Phone: [facility]-Cardiac Rehab Start: 05-19-2022 End: 05-28-[address] [facility] Start: 04-28-2022 End: 04-28-[address] Tolu Franz Work Phone: [facility]-Cardiac Rehab Start: 03-26-2022 End: 03-28-[address] [facility] Franz [facility] Start: 03-05-2022 End: 03-28-[address] [facility] Start: 03-05-[address] [facility] Franz [facility] Start: 02-26-2022 End: 02-26-[address] Tol[facility] Franz [facility] Start: 02-25-2022 End: 02-25-[address] Tolu Franz Work Phone: [facility] Start: 02-16-2022 End: 02-16-[address] Tolu Franz Work Phone: [facility] Start: 01-29-2022 End: 02-26-[address] Tol[facility] Franz [facility] Start: 01-29-[address] Tolu Franz [facility] Start: 01-20-2022 End: 01-26-[address] Tol[facility] Franz [facility] Start: 01-15-2022 End: 01-26-[address] Tol[facility] Franz [facility] Start: 12-25-2021 End: 12-29-[address] Tol[facility] Franz [facility] Start: 12-11-2021 End: 12-29-[address] Tolu Franz [facility] Start: 11-27-2021 End: 11-28-[address] Tol[facility] Franz [facility] Start: 11-18-2021 End: 11-28-[address] Tol[facility] Franz [facility] Start: 03-24-2018 End: 03-24-2018 [facility] Procedures Date Procedure Procedure Detail Performing Clinician Start: 07-05-[address] fraction Dr. Tolu Franz MD Work Phone: Start: 06-26-2025 Albumin/Globulin ratio Dr. Tolu Franz MD Work Phone: Start: 06-26-2025 Endomysial antibody IgA level Dr. Tolu Franz MD Work Phone: Start: 06-26-[address] Tolu Franz MD Work Phone: Start: 06-19-[address] Tolu Franz MD Work Phone: Start: 06-19-2025 Plain chest X-ray Dr. Sada Franz MD Work Phone: Start: 06-14-2025 D-dimer assay, quantitative Dr. Tolu Franz MD Work Phone: Comment on above: NORMAL D-Dimer level (<0.50) indicates no DVT or PE. Start: 06-14-[address] Tolu Franz MD Work Phone: Start: 06-14-2025 Plain chest X-karmen Franz MD Work Phone: Start: 06-14-2025 Infectious agent dna /rna influenza 1st 2 types Kris Crouch MD Work Phone: Start: 06-14-2025 Radiologic exam ches t 2 views Kris Crouch MD Work Phone: Start: 06-14-2025 Ecg routine ecg w/le ast 12 lds i&r only Kris Crouch MD Work Phone: Start: 06-14-2025 Sars-cov-2 detection by dna/rna Kris Crouch MD Work Phone: Start: 05-10-2025 SKIN / NAIL BIOPSY Daniel Sheikh BUYING AGENT.CENTRIFUGAL CASTING MACHINE TENDER Work Phone: Start: 05-10-2025 CRYOTHERAPY SKIN LESION José Waizi BUYING AGENT.CENTRIFUGAL CASTING MACHINE TENDER Work Phone: Start: 03-06-2025 Urinalysis microscop ic only Hortencia Gerard PA-C Work Phone: Start: 03-06-2025 Urnls dip stick/tabl et rgnt auto w/o microscopy Hortencia Gerard PA-C Work Phone: Start: 03-01-2025 SKIN / NAIL BIOPSY Daniel Sheikh BUYING AGENT.CENTRIFUGAL CASTING MACHINE TENDER Work Phone: Start: 01-02-2025 Cardiovascular stres s test using pharmacologic stress agent DAO RAPHAEL Work Phone: Start: 11-02-2024 End: 11-02-2024 SKIN / NAIL BIOPSY Corrie Stone PA-C Work Phone: Start: 11-02-2024 CRYOTHERAPY SKIN LESION Corrie Stone PA-C Work Phone: Start: 10-10-2024 Urinalysis microscop ic only Hortencia Gerard PA-C Work Phone: Start: 10-10-2024 Urnls dip stick/tabl et rgnt auto w/o microscopy Hortencia Gerard PA-C Work Phone: Start: 07-14-2024 CRYOTHERAPY SKIN LESION José Sheikh BUYING AGENT.CENTRIFUGAL CASTING MACHINE TENDER Work Phone: Start: 02-21-2024 End: 02-21-2024 CRYOTHERAPY SKIN LESION José Sheikh BUYING AGENT.CENTRIFUGAL CASTING MACHINE TENDER Work Phone: Start: 11-25-2023 Radiologic exam ches t 2 views Marifer Albert BUYING AGENT.CENTRIFUGAL CASTING MACHINE TENDER Work Phone: Start: 06-29-2023 Level iv surg pathol ogy gross&microscopic exam José Sheikh BUYING AGENT.CENTRIFUGAL CASTING MACHINE TENDER Work Phone: Start: 06-29-2023 SKIN / NAIL BIOPSY Daniel Sheikh BUYING AGENT.CENTRIFUGAL CASTING MACHINE TENDER Work Phone: Start: 04-09-2023 URINE SEDIMENT B/O Robe rt Moustapha GOMEZ Work Phone: Start: 04-09-2023 Urnls dip stick/tabl et rgnt auto w/o microscopy Ralph Felipe MD Work Phone: Start: 03-30-2023 End: 03-30-2023 CRYOTHERAPY SKIN LESION José Sheikh BUYING AGENT.CENTRIFUGAL CASTING MACHINE TENDER Work Phone: Start: 02-18-2023 CRYOTHERAPY SKIN LESION José Sheikh BUYING AGENT.CENTRIFUGAL CASTING MACHINE TENDER Work Phone: Start: 01-12-2023 CRYOTHERAPY SKIN LESION José Sheikh BUYING AGENT.CENTRIFUGAL CASTING MACHINE TENDER Work Phone: Start: 01-12-2023 SKIN / NAIL BIOPSY Daniel Sheikh BUYING AGENT.CENTRIFUGAL CASTING MACHINE TENDER Work Phone: Start: 01-12-2023 Level iv surg pathol ogy gross&microscopic exam José Sheikh BUYING AGENT.CENTRIFUGAL CASTING MACHINE TENDER Work Phone: Start: 01-01-2023 MRI of abdomen with contrast [facility] Start: 07-02-2022 CRYOTHERAPY SKIN LESION José Sheikh BUYING AGENT.CENTRIFUGAL CASTING MACHINE TENDER Work Phone: Start: 02-27-2021 History of placement of stent for coronary artery disease H/O heart artery stent Start: 05-29-2019 H/O: surgery History of pro state surgery Start: 03-24-2018 DISCHARGE PATIENT 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 Start: 03-24-2018 ANESTHESIA TYPE REQUEST 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 Start: 03-24-2018 DIAGNOSIS FOR PROCEDURE 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 Start: 03-24-2018 DIET NPO, NOW BARTOLO LE Start: 03-24-2018 FULL CODE BARTOLO LEWIS Start: 03-24-2018 TREATMENT CONSENT 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 Start: 03-24-2018 VERIFY INFORMED CONSENT 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 Clostridium difficil e detection [facility] Clostridium difficil e detection [facility] Enteric Bacteriology [facility] [place] [facility] H/O: surgery H/O left wrist surgery History of cataract extraction History of cataract surgery Comment on above: bilateral History of cholecystectomy Hx of cholecystectomy History of tonsillectomy History of tonsillectomy and adenoidectomy Lactoferrin measurement [facility] Lactoferrin measurement [facility] Measurement of occul t blood in stool specimen using immunoassay [facility] Measurement of occul t blood in stool specimen using immunoassay [facility] Plan of Treatment Date Care Activity Detail Author Start: 03-07-2026 End: 03-07-2026 Patient encounter procedure 03/07/2026 11:00 AM EDT Office Visit Urology [address] [place] [address] Hortencia Gerard PA-C [address] [place] [address] annual follow up Urology Comment on above: annual follow up Start: 01-03-2026 End: 01-03-2026 Patient encounter procedure 01/03/2026 11:45 AM EST Office Visit General Surgery [address] [place] [address] Jose Ramon Medina MD [address] [place] [address] 6 MONTH FOLLOW UP General Surgery Comment on above: 6 MONTH FOLLOW UP Start: 11-02-2025 End: 11-02-2025 Patient encounter procedure 11/02/2025 11:00 AM EST Office Visit Dermatology [address] [place], [place] [phone] José Sheikh, BUYING AGENT.CENTRIFUGAL CASTING MACHINE TENDER [address] [place] [address] 3 mo follow up skin check Dermatology Comment on above: 3 mo follow up skin check Start: 11-01-2025 End: 11-01-2025 Patient encounter procedure 11/01/2025 4:00 PM EST Office Visit Dermatology [address] [phone] José Sheikh, BUYING AGENT.CENTRIFUGAL CASTING MACHINE TENDER [address] [place] [address] 3 month fbse Dermatology Comment on above: 3 month fbse Start: 08-02-2025 End: 08-02-2025 Patient encounter procedure 08/02/2025 4:30 PM EDT Office Visit Dermatology [address] [phone] José Sheikh, BUYING AGENT.CENTRIFUGAL CASTING MACHINE TENDER [address] [place] [phone] FBS [facility]ermatology Comment on above: [facility] Start: 08-02-2025 Evaluation of diagno stic study results [facility] Start: 07-30-2025 Influenza vaccination Influenza Vacc ine (#1) [facility] Start: 07-23-2025 Patient discharge [facility] Start: 07-19-2025 End: 07-19-2025 Patient encounter procedure 07/19/2025 8:00 AM EDT Office Visit Dermatology [address] [phone] Corrie Stone PA-C [address] [place], [place] [phone] Growth of concern x1 Dermatology Comment on above: Growth of concern x1 Start: 06-28-2025 Evaluation of diagno [facility] study results [facility] Start: 06-25-2025 End: 06-25-2025 Patient encounter procedure 06/25/2025 10:15 AM EDT Office Visit Dermatology [address] [place], [place] [id number] Gracia Washington MD [address] [place] [address] Mohs: Right superior helix, SCC Mod Diff, 3 pts Dermatology Comment on above: Mohs: Right superior helix, SCC Mod Diff, 3 pts Start: 06-21-2025 End: 06-21-2025 Patient encounter procedure 06/21/2025 11:30 AM EDT Office Visit General Surgery [address] [place] [address] Jose Ramon Medina MD [address] [place] [address] 93-DJ 3 week follow up General Surgery Comment on above: 93-DJ 3 week follow up Start: 06-19-2025 End: 06-19-2025 [facility] Start: 06-19-2025 End: 06-19-2025 [facility] Start: 06-15-2025 [facility] Start: 06-15-2025 End: 06-15-2025 Patient encounter procedure 06/15/2025 7:00 AM EDT Office Visit Dermatology [address] [place] [address] Corrie Stone PA-C [address] [place] [address] Growth of concern Dermatology Comment on above: Growth of concern Start: 06-14-2025 [facility] Start: 06-14-2025 End: 06-14-2025 [facility] Start: 05-10-2025 End: 05-10-2025 Patient encounter procedure 05/10/2025 1:30 PM EDT Office Visit Dermatology [address] [phone] José Sheikh, BUYING AGENT.CENTRIFUGAL CASTING MACHINE TENDER [address] [place] [address] FBSE Dermatology Comment on above: FBSE Start: 05-03-2025 End: 05-03-2025 Patient encounter procedure 05/03/2025 1:30 PM EDT Office Visit Dermatology [address] [phone] José Sheikh APRN.CENTRIFUGAL CASTING MACHINE TENDER [address] [place] [address] FBSE Dermatology Comment on above: FBSE Start: 04-12-2025 End: 04-12-2025 Patient encounter procedure 04/12/2025 10:30 AM EDT Office Visit Dermatology [id number] [place] [address] Stro, Nurse Derm [facility] [id number] [place] [id number] pdt Dermatology Comment on above: pdt Start: 03-06-2025 End: 03-06-2025 Patient encounter procedure 03/06/2025 2:00 PM EDT Office Visit Urology [address] [place], [place] [phone] Hortencia Gerard PA-C [address] [place] [address] 3 M FOLLOW UP Urology Comment on above: 3 M FOLLOW UP Start: 03-05-2025 Shingrix Vaccine (3 of 3) Bhatt grix Vaccine (3 of 3) [facility] Start: 02-23-2025 End: 05-25-2025 Prostate Specific Ag Free [Mass/volume] in Serum or Plasma [facility] Work Phone: Comment on above: Expected: 02/23/2025 , Expires: 05/25/2025 Start: 02-01-2025 End: 02-01-2025 Patient encounter procedure 02/01/2025 12:00 PM EST Office Visit Dermatology [id number] [place] [address] José Sheikh, SILVER.CENTRIFUGAL CASTING MACHINE TENDER [address] [place] [address] body skin check Dermatology Comment on above: body skin check Start: 01-11-2025 End: 01-11-2025 Patient encounter procedure 01/11/2025 1:30 PM EST Office Visit Urology [address] [place] [address] Hortencia Gerard PA-C [address] [place] [address] 3 M FOLLOW UP Urology Comment on above: 3 M FOLLOW UP Start: 12-21-2024 End: 12-21-2024 Patient encounter procedure 12/21/2024 11:00 AM EST Office Visit General Surgery [address] [place] [address] Jose Ramon Medina MD [address] [place] [address] 3 week follow up General Surgery Comment on above: 3 week follow up Start: 11-29-2024 Advance Directive Discussion Advance Direct[facility] Start: 11-27-2024 Subsequent hospital visit by physician 11/27/2024 Hospital Encounter [facility] [address] [address] Jose Ramon Medina MD [address] [place] [address] 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] [facility] Comment on above: 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] Start: 11-16-2024 End: 11-16-2024 Patient encounter procedure 11/16/2024 11:00 AM [place] [facility] [address] [place] [address] Jose Ramon Medina MD [address] [place] [address] melanoma left upper back [facility] Comment on above: melanoma left upper back Start: 11-02-2024 End: 11-02-2024 Patient encounter procedure 11/02/2024 1:20 PM EST Office Visit Dermatology [id number] [place] [phone] Corrie Stone PA-C [address] [place] [address] FBSE Dermatology Comment on above: FBSE Start: 10-17-2024 End: 10-17-2024 Patient encounter procedure 10/17/2024 1:45 PM EST Office Visit Dermatology [address] [place] [address] José Sheikh, BUYING AGENT.CENTRIFUGAL CASTING MACHINE TENDER [address] [place] [address] Follow Up Dermatology Comment on above: Follow Up Start: 07-30-2024 Covid-19 Vaccine ( season) Covid-19 Vaccine () [facility] Start: 07-30-2024 Covid-19 Vaccine ( season) Covid-19 Vaccine () [facility] Start: 07-30-2024 Influenza vaccination [facility] Start: 07-20-2024 End: 07-20-2024 Patient encounter procedure 07/20/2024 10:45 AM EDT Appointment Radiology [address] [place], [place] [phone] Scrotal skin lesion [N50.9] Radiology Comment on above: Scrotal skin lesion [N50.9] Start: 07-14-2024 End: 07-14-2024 Patient encounter procedure 07/14/2024 12:00 PM EDT Office Visit Dermatology [address] [place] [address] José Sheikh, BUYING AGENT.CENTRIFUGAL CASTING MACHINE TENDER [address] [place] [address] follow up PDT Dermatology Comment on above: follow up PDT Start: 05-10-2024 End: 05-10-2024 Patient encounter procedure 05/10/2024 1:00 PM EDT Office Visit Dermatology [address] [place] [address] Stro, Nurse Derm [facility] [address] [place] [address] PDT Dermatology Comment on above: PDT Start: 01-26-2024 CBC W Auto Different ial panel - Blood [facility] Start: 01-26-2024 Comprehensive metabo lic 1999 panel - Serum or Plasma [facility] Start: 01-26-2024 Thyrotropin [Units/v olume] in Serum or Plasma [facility] Start: 01-26-2024 [facility] Start: 11-29-2023 Advance Directive Discussion Advance Direct[facility] Start: 11-29-2023 Behavioral Health Screening Behavioral Health Screening [facility] Start: 11-29-2023 Depression Assessment Depression Ass essment [facility] Start: 07-30-2023 Covid-19 Vaccine () Covid-19 Vaccine () [facility] Start: 07-30-2023 Influenza vaccination [facility] Start: 06-25-2023 CBC W Auto Different ial panel - Blood [facility] Start: 06-25-2023 Comprehensive metabo lic 1999 panel - Serum or Plasma [facility] Start: 06-25-2023 Thyrotropin [Units/v olume] in Serum or Plasma [facility] Start: 06-25-2023 End: 06-25-2023 [facility] Start: 06-05-2023 End: 08-05-2023 Bacteria identified in Wound by Culture ABSCESS AND WOUND CULTURE WITH GRAM STAIN Microbiology Routine Rash Expected: 06/05/2023, Expires: 08/05/2023 [facility] Work Phone: Comment on above: Expected: 06/05/2023 , Expires: 08/05/2023 Start: 06-05-2023 End: 08-05-2023 Fungus identified in Unspecified specimen by Culture FUNGAL SCREEN Microbiology Routine Rash Expected: 06/05/2023, Expires: 08/05/2023 [facility] Work Phone: Comment on above: Expected: 06/05/2023 , Expires: 08/05/2023 Start: 02-03-2023 Following clinical p athway protocol [facility] Start: 11-29-2022 ADVANCE DIRECTIVE DISCUSSION ADVANCE DIRECTIVE DISCUSSION [facility] Start: 11-29-2022 DEPRESSION ASSESSMENT DEPRESSION ASS ESSMENT [facility] Start: 09-27-2022 Urine microalbumin profile DTa P,Tdap,Td Vaccine (2 - Td or Tdap) [facility] Start: 09-15-2022 Procedure [facility] Work Phone: Start: 09-14-2022 IgE [Units/volume] i n Serum or Plasma [facility] Work Phone: Start: 09-14-2022 Serum immunofixation [facility] Work Phone: Start: 09-14-2022 [facility] Start: 07-30-2022 Influenza vaccination INFLUENZA (#1) [facility] Start: 06-16-2022 DIABETES SCREEN DIABETES SCREEN [facility] Start: 06-16-2022 Diabetes Screening Diabetes Screenin g [facility] Start: 05-26-2022 COVID-19 VACCINE (5 - Booster for Moderna series) COVID-19 VACCINE (5 - Booster for Moderna series) [facility] Start: 05-26-2022 COVID-19 VACCINE (5 - Moderna risk series) COVID-19 VACCINE (5 - Moderna risk series) [facility] Start: 11-29-2021 ADVANCE DIRECTIVE DISCUSSION ADVANCE DIRECTIVE DISCUSSION [facility] Start: 11-29-2021 DEPRESSION ASSESSMENT DEPRESSION ASS ESSMENT [facility] Start: 2015 RSV Vaccine (1 - 1-d ose 75+ series) RSV Vaccine (1 - 1-dose 75+ series) [facility] Start: 12-27-2012 Shingrix Vaccine (1 of 2) Bhatt grix Vaccine (1 of 2) [facility] Start: 12-27-2012 Shingrix Vaccine (2 of 3) Bhatt grix Vaccine (2 of 3) [facility] Start: 2005 PNEUMOCOCCAL: 65+ (1 - PCV) PNEUMOCOCCAL: 65+ (1 - PCV) [facility] Start: 12-30-2004 Medicare Annual Well ness Visit Medicare Annual Wellness Visit [facility] Start: 2000 RSV Vaccine (1 - 1-d ose 60+ series) RSV Vaccine (1 - 1-dose 60+ series) [facility] Start: 1990 SHINGRIX VACCINE (1 of 2) BHATT GRIX VACCINE (1 of 2) [facility] Start: 1959 SHINGRIX VACCINE (1 of 2) BHATT GRIX VACCINE (1 of 2) [facility] Start: 1959 Urine microalbumin profile DTA P,TDAP,TD (1 - Tdap) [facility] Start: 1958 Anxiety Screening Anxiety Screening [facility] Start: 1958 Depression Screening Depression Scre ening [facility] Start: 1946 PNEUMOCOCCAL: 65+ (1 - PCV) PNEUMOCOCCAL: 65+ (1 - PCV) [facility] Alanine aminotransfe rase [Enzymatic activity/volume] in Serum or Plasma [facility] Alanine aminotransfe rase [Enzymatic activity/volume] in Serum or Plasma [facility] Albumin [Mass/volume ] in Serum or Plasma [facility] Albumin [Mass/volume ] in Serum or Plasma [facility] Albumin [Moles/volum e] in Serum or Plasma [facility] Work Phone: Albumin/Globulin ratio [facility] Work Phone: Albumin/Globulin ratio [facility] Albumin/Globulin ratio [facility] Alkaline phosphatase [Enzymatic activity/volume] in Serum or Plasma [facility] Alkaline phosphatase [Enzymatic activity/volume] in Serum or Plasma [facility] Anion gap in Serum o r Plasma [facility] Anion gap measurement [facility] Anion gap measurement [facility] Aspartate aminotrans ferase [Enzymatic activity/volume] in Serum or Plasma [facility] Aspartate aminotrans ferase [Enzymatic activity/volume] in Serum or Plasma [facility] Bacteria identified in Urine by Culture URINE CULTURE Microbiology Routine Acute cystitis with hematuria 04/09/2023 1:29 PM EDT [facility] Work Phone: Basophil count [facility] Basophil count [facility] Basophil percent differential count [facility] Basophil percent differential count [facility] Bilirubin.total [Mass/volume] in Serum or Plasma [facility] Bilirubin.total [Mass/volume] in Serum or Plasma [facility] BUN/Creatinine ratio [facility] C reactive protein [Mass/volume] in Serum or Plasma [facility] Calcium [Mass/volume ] in Serum or Plasma [facility] Calcium [Mass/volume ] in Serum or Plasma [facility] Calcium [Mass/volume ] in Serum or Plasma [facility] Carbon dioxide, tota l [Moles/volume] in Central venous blood [facility] Carbon dioxide, tota l [Moles/volume] in Serum or Plasma [facility] Carbon dioxide, tota l [Moles/volume] in Serum or Plasma [facility] Cardioversion [facility] CBC W Auto Different ial panel - Blood [facility] CBC W Auto Different ial panel - Blood [facility] CBC W Auto Different ial panel - Blood [facility] CBC W Auto Different ial panel - Blood [facility] Celiac disease screen [facility] Chloride [Moles/volu me] in Serum or Plasma [facility] Chloride [Moles/volu me] in Serum or Plasma [facility] Cholesterol [Mass/vo lume] in Serum or Plasma [facility] Cholesterol [Mass/vo lume] in Serum or Plasma [facility] Cholesterol in HDL [Mass/volume] in Serum or Plasma [facility] Cholesterol in HDL [Mass/volume] in Serum or Plasma [facility] Cholesterol in LDL [Mass/volume] in Serum or Plasma [facility] Cholesterol in LDL [Mass/volume] in Serum or Plasma [facility] Comprehensive metabo lic 1999 panel - Serum or Plasma [facility] Comprehensive metabo lic 1999 panel - Serum or Plasma [facility] Comprehensive metabo lic 1999 panel - Serum or Plasma [facility] Comprehensive metabo lic 1999 panel - Serum or Plasma [facility] Creatinine [Mass/vol ume] in Serum or Plasma [facility] Creatinine [Mass/vol ume] in Urine [facility] Creatinine [Moles/vo lume] in Serum or Plasma [facility] Creatinine [Moles/vo lume] in Serum or Plasma [facility] Creatinine and Glome rular filtration rate.predicted panel - Serum, Plasma or Blood [facility] Creatinine and Glome rular filtration rate.predicted panel - Serum, Plasma or Blood [facility] ECG COMPLETE ECG COMPLETE ECG Routine Fever, unspecified fever cause Dyspnea, unspecified type 06/14/2025 4:10 PM EDT [facility] Work Phone: Electrophoresis: [id number] [facility] Work Phone: Electrophoresis: sommer ma globulin [facility] Work Phone: Eosinophil percent differential count [facility] Eosinophil percent differential count [facility] Eosinophils [#/volum e] in Blood [facility] Eosinophils [#/volum e] in Blood [facility] Erythrocyte mean corpuscular volume determination [facility] Erythrocyte mean corpuscular volume determination [facility] Erythrocyte mean corpuscular volume determination [facility] Erythrocyte sediment ation rate [facility] Erythrocytes [#/volu me] in Blood [facility] Erythrocytes [#/volu me] in Blood [facility] Excision mal lesion trunk/arm/leg 1.1-2.0 cm 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) PLASTICS A60 Ferritin [Mass/volum e] in Serum or Plasma [facility] Globulin [Mass/volum e] in Serum [facility] Globulin [Mass/volum e] in Serum [facility] Globulin measurement [facility] Work Phone: Glucose [Mass/volume ] in Serum or Plasma [facility] Glucose [Mass/volume ] in Serum or Plasma [facility] Glucose [Mass/volume ] in Serum or Plasma [facility] Glucose measurement estimated from glycated hemoglobin [facility] Hematocrit [Volume Fraction] of Blood [facility] Hematocrit [Volume Fraction] of Blood [facility] Hematocrit [Volume Fraction] of Blood [facility] Hemoglobin [Mass/vol ume] in Blood [facility] Hemoglobin [Mass/vol ume] in Blood [facility] Hemoglobin [Mass/vol ume] in Blood [facility] Hemoglobin A1c/Hemoglobin.total in Blood [facility] Hemoglobin distribut ion, width determination [facility] Hemoglobin distribut ion, width determination [facility] IgA [Mass/volume] in Serum or Plasma [facility] Work Phone: IgE [Units/volume] i n Serum or Plasma [facility] Work Phone: IgG [Mass/volume] in Serum or Plasma [facility] Work Phone: IgM [Mass/volume] in Serum or Plasma [facility] Work Phone: Lactate dehydrogenas e measurement [facility] Leukocytes [#/volume ] in Blood [facility] Lipoprotein choleste rol ratio measurement [facility] Lipoprotein choleste rol ratio measurement [facility] Lymphocyte count [facility] Lymphocyte count [facility] Lymphocyte percent differential count [facility] Lymphocyte percent differential count [facility] Mean corpuscular hemoglobin concentration determination [facility] Mean corpuscular hemoglobin concentration determination [facility] Mean corpuscular hemoglobin concentration determination [facility] Mean corpuscular hemoglobin determination [facility] Mean corpuscular hemoglobin determination [facility] Mean corpuscular hemoglobin determination [facility] Measurement of renal function [facility] Measurement of renal function [facility] Measurement of renal function [facility] Microalbumin [Mass/t presley] in Urine collected for unspecified duration [facility] Microalbumin/Creatin ine [Ratio] in 24 hour Urine [facility] Monocyte count [facility] Monocyte count [facility] Monocyte percent differential count [facility] Monocyte percent differential count [facility] MR Abdomen WO and W contrast IV [facility] Neutrophil count [facility] Neutrophil count [facility] Neutrophil count [facility] Neutrophil cytoplasm ic Ab.classic [Units/volume] in Serum [facility] Work Phone: Neutrophil percent differential count [facility] Neutrophil percent differential count [facility] Neutrophil percent differential count [facility] P-ANCA measurement [facility] Work Phone: Patient Education [facility] Work Phone: Patient referral [facility] Work Phone: PHOTODYNAMIC THERAPY [facility] Work Phone: Comment on above: Ordered: 07/02/2022 PHOTODYNAMIC THERAPY PHOTODYNAMI C THERAPY Procedures Routine 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 Ordered: 10/12/2023 [facility] Work Phone: Comment on above: Ordered: 10/12/2023 PHOTODYNAMIC THERAPY PHOTODYNAMI C THERAPY Procedures Routine AK (actinic keratosis) Ordered: 04/07/2024 [facility] Work Phone: Comment on above: Ordered: 04/07/2024 PHOTODYNAMIC THERAPY PHOTODYNAMI C THERAPY Procedures Routine AK (actinic keratosis) Ordered: 02/01/2025 [facility] Work Phone: Comment on above: Ordered: 02/01/2025 PHOTODYNAMIC THERAPY PHOTODYNAMI C THERAPY Procedures Routine AK (actinic keratosis) Ordered: 08/02/2025 [facility] Work Phone: Comment on above: Ordered: 08/02/2025 Platelet mean volume determination [facility] Platelet mean volume determination [facility] Platelets [#/volume] in Blood [facility] Platelets [#/volume] in Blood [facility] Platelets [#/volume] in Blood [facility] Potassium [Moles/vol ume] in Serum or Plasma [facility] Potassium [Moles/vol ume] in Serum or Plasma [facility] Potassium measurement [facility] Procedure [facility] Work Phone: Protein [Mass/volume ] in Serum or Plasma [facility] Protein [Mass/volume ] in Serum or Plasma [facility] Protein electrophore sis panel - Serum or Plasma [facility] Work Phone: Red blood cell count [facility] Red cell distributio n width determination [facility] Serum chloride measurement [facility] Serum immunofixation [facility] Serum protein electrophoresis [facility] Work Phone: Sodium [Moles/volume ] in Serum or Plasma [facility] Sodium [Moles/volume ] in Serum or Plasma [facility] Sodium measurement [facility] SURGICAL PATHOLOGY [facility] Work Phone: Comment on above: Release Upon Orderin g for 1 Occurrences starting 11/02/2024 SURGICAL PATHOLOGY [facility] Work Phone: Comment on above: Release Upon Orderin g for 1 Occurrences starting 11/27/2024, 1 completed T4 free measurement [facility] Thyroid stimulating hormone measurement [facility] Thyrotropin [Units/v olume] in Serum or Plasma [facility] Thyrotropin [Units/v olume] in Serum or Plasma [facility] Thyrotropin [Units/v olume] in Serum or Plasma [facility] Thyroxine (T4) [Mass/volume] in Serum or Plasma [facility] Tissue Pathology bio psy report [facility] Work Phone: Comment on above: Release Upon Orderin g for 1 Occurrences starting 03/01/2025 Tissue Pathology bio psy report [facility] Work Phone: Comment on above: Release Upon Orderin g for 1 Occurrences starting 05/10/2025, 1 completed Triglyceride [Mass/v olume] in Serum or Plasma [facility] Triglyceride [Mass/v olume] in Serum or Plasma [facility] Triiodothyronine, fr ee measurement [facility] Troponin T.cardiac [Mass/volume] in Serum or Plasma by High sensitivity method [facility] Troponin T.cardiac [Mass/volume] in Serum or Plasma by High sensitivity method [facility] Troponin T.cardiac [Mass/volume] in Serum or Plasma by High sensitivity method [facility] Urea nitrogen [Mass/volume] in Serum or Plasma [facility] Urea nitrogen [Mass/volume] in Serum or Plasma [facility] Urea nitrogen [Mass/volume] in Serum or Plasma [facility] End: 08-16-2025 US.doppler Scrotum and testicle US SCROTUM AND CONTENTS Radiology Routine Scrotal skin lesion 1 Occurrences starting 07/17/2024 until 08/16/2025 [facility] Work Phone: Comment on above: 1 Occurrences starti ng 07/17/2024 until 08/16/2025 US.doppler Scrotum a nd testicle US SCROTUM AND CONTENTS Radiology Routine Scrotal skin lesion 07/20/2024 11:38 AM EDT [facility] Work Phone: [facility] Immunizations Immunization Date Immunization Notes Care Provider Fa cility 03-29-2025 zoster vaccine [facility] 01-08-2025 zoster vaccine [facility] 08-18-2024 Respiratory Syncytia l Virus Vaccine [facility] 08-18-2024 Seasonal trivalent influenza vaccine, adjuvanted, preservative free [facility] 08-18-2024 influenza virus vacc ine, unspecified formulation Kris Crouch MD Work Phone: [facility] 08-04-2022 Influenza Quadrivale nt Adjuvanted [facility] 08-04-2022 influenza virus vacc ine, unspecified formulation Gracia Washington MD Work Phone: [facility] 03-31-2022 COVID-19 Vaccine [facility] 08-29-2021 COVID-19 Vaccine [facility] 08-07-2021 Influenza Quadrivale nt Adjuvanted PF [facility] 2021 Covid (Moderna) Dr. Tolu villagran Work Phone: [facility] 12-22-2020 COVID-19 Vaccine [facility] 12-12-2020 Covid (Moderna) Dr. Tolu villagran Work Phone: [facility] 09-21-2020 influenza, high-dose , quadrivalent vaccine (FLUZONE HIGH DOSE QUADRIVALENT) José Sheikh APRN.[facility] Work Phone: [facility] Work Phone: 08-14-[address] Tolu Franz Work Phone: [facility] 09-05-2019 influenza, high dose seasonal, preservative-free José Kori WILKINSON Work Phone: [facility] 09-08-2018 influenza, injectabl e, quadrivalent, contains preservative [facility] 09-03-2017 Influenza, injectabl e, Madin [place] Canine Kidney, preservative free, quadrivalent [facility] 12-02-2016 pneumococcal polysaccharide vaccine, 23 valent [facility] 06-29-2016 influenza virus vacc ine, unspecified formulation [facility] 10-16-2015 pneumococcal conjuga te vaccine, 13 valent [facility] 08-29-2015 influenza, high dose seasonal, preservative-free [facility] 07-19-2015 influenza, high dose seasonal, preservative-free [facility] 08-09-2014 influenza, high dose seasonal, preservative-free [facility] 08-28-2013 influenza, seasonal, injectable [facility] 11-01-2012 zoster vaccine, live [facility] 09-27-2012 tetanus toxoid, redu zahira diphtheria toxoid, and acellular pertussis vaccine, adsorbed [facility] 08-30-2012 influenza, seasonal, injectable [facility] 10-02-2011 pneumococcal polysaccharide vaccine, 23 valent [facility] 08-19-2011 influenza, high dose seasonal, preservative-free [facility] Payers Date Payer Category Payer Self-pay [id number] 2019 Private Health Insurance MMO MED ICARE SUPPLEMENT [id number] 2019 Unknown MMO MMO MEDICARE SUPPLEMENT [id number] 2019-Present [phone] [address] [place] [address] Indemnity [id number] 2019 Unknown [id number] 2017 Medicare [id number] 2004 Medicare [id number] 2004 Medicare [id number] Unknown [id number] Unknown VA AUTH REQUIR ED SEE NOTE [id number] Unknown [id number] 2.0.1.765733.3.579.2. 921 Unknown [id number] .1.926507.3.579.2. 921 Unknown [id number] 20.1.445920.3.579.2. 462 Unknown [id number] 2.0.1.110993.3.579.2. 462 Unknown [id number] 2.840.1.699220.3.579.2. 462 Unknown [id number] 2.840.1.828140.3.579.2. 462 Unknown [id number] 2.0.1.228949.3.579.2. 462 Unknown [id number] 2.16.840.1.288702.3.579.2. 462 Unknown [id number] 2.16.840.1.745223.3.579.2. 462 Unknown [id number] 2.16.840.1.625095.3.579.2. 462 Unknown [id number] 2.16.840.1.493482.3.579.2. 462 Unknown [id number] 2.16.840.1.698217.3.579.2. 462 Unknown [id number] 2.16.840.1.744489.3.579.2. 462 Unknown [id number] 2.16.840.1.522131.3.579.2. 462 Unknown [id number] 2.16840.1.430462.3.579.2. 462 Unknown [id number] 2.16840.1.621201.3.579.2. 462 Unknown [id number] 2.16.840.1.201865.3.579.2. 462 Unknown [id number] 2.16.840.1.151727.3.579.2. 462 Unknown [id number] 2.16.840.1.038355.3.579.2. 462 Unknown [id number] 2.16.840.1.490218.3.579.2. 462 Unknown [id number] 2.16840.1.771195.3.579.2. 462 Unknown [id number] 2.16.840.1.804387.3.579.2. 462 Unknown [id number] 2.16.840.1.943080.3.579.2. 462 Unknown [id number] 2.16.840.1.417218.3.579.2. 462 Unknown [id number] 2.16.840.1.947112.3.579.2. 462 Unknown [id number] 2.16.840.1.193322.3.579.2. 462 Unknown [id number] 2.16.840.1.382237.3.579.2. 462 Unknown [id number] 2.16.840.1.499571.3.579.2. 462 Unknown [id number] 2.16.840.1.772840.3.579.2. 462 Unknown [id number] 2.16.840.1.784208.3.579.2. 462 Unknown [id number] 2.16840.1.390164.3.579.2. 462 Social History Date Type Detail Facility Start: 02-25-2022 End: 2024 Tobacco smoking status ILIS Unknown if ever smoked [facility] Start: 03-18-2021 Occasional [facility] Start: 03-18-2021 None [facility] Start: 03-18-2021 Alone [facility] Start: 04-03-2021 Pipe [facility] Start: 1940 Sex Assigned At Male C [facility] Start: 03-09-2019 End: 06-05-2023 Tobacco smoking status ILIS Never smoked tobacco [facility] Start: 03-09-2019 End: 06-05-2023 Tobacco use and exposure Smokeless tobacco non-user [facility] Start: 10-03-2020 End: 06-14-2025 Alcohol intake Not Asked [facility] Start: 06-22-2022 End: 10-12-2022 Exposure to SARS-CoV-2 (event) Not sure [facility] Start: 04-09-2023 End: 06-05-2023 History of Social function [facility] Start: 04-09-2023 End: 06-05-2023 Tobacco use panel [facility] Start: 10-30-2012 National Score (1-100), lower number is lower risk 35 [facility] Start: 06-24-2021 Gender identity Identifies as male gender (finding) [facility] Work Phone: Start: 06-23-2023 End: 07-23-2025 Tobacco smoking status NHIS Ex-smoker (finding) [facility] Start: 08-23-2024 End: 04-18-2025 Sex Male (finding) [facility] Medical Equipment Procedure Code Equipment Code Equipment Origin al Text Equipment Identifier Dates Blood Sugar Diagnostic (Contour Test Strips) strip Start: 06-23-2023 Blood Sugar Diagnostic (Contour Test Strips) strip Start: 06-23-2023 Blood Sugar Diagnostic (Contour Test Strips) strip Start: 06-23-2023 Blood Sugar Diagnostic (Contour Test Strips) strip Start: 06-23-2023 Blood Sugar Diagnostic (Contour Test Strips) strip Start: 06-23-2023 Blood Sugar Diagnostic (Contour Test Strips) strip Start: 06-23-2023 Blood Sugar Diagnostic (Contour Test Strips) strip Start: 06-23-2023 Blood Sugar Diagnostic (Contour Test Strips) strip Start: 06-23-2023 Blood Sugar Diagnostic (Contour Test Strips) strip Start: 06-23-2023 Blood Sugar Diagnostic (Contour Test Strips) strip Start: 06-23-2023 End: 04-18-2025 Blood Sugar Diagnostic (Contour Test Strips) strip Start: 04-18-2025 Blood Sugar Diagnostic (Contour Test Strips) strip Start: 04-18-2025 Blood Sugar Diagnostic (Contour Test Strips) strip Start: 06-23-2023 End: 04-18-2025 Mental Status Date Assessment Result Facility 06-19-2025 Cognitive function Voice/Name [facility] Work Phone: 06-14-2025 Cognitive function Voice/Name [facility] Work Phone: 01-01-2023 Cognitive function Voice/Name [facility] Work Phone: Clinical Notes 03-29-2021 to 08-14-2025 Telephone Encounter - Marifer Ricks RN - 08/14/2025 11:41 AM EDTTelephone Encounter - Marifer Ricks RN - 08/14/2025 11:41 AM José Ballesteros APRN.[employer] CASTING MACHINE TENDER - 08/02/2025 4:30 PM EDT Note Date & Type Note Facility 08-14-2025 Telephone encount er Note Spoke with patient. Patient wants to delay treatment until after the new year. Patient will reach out when he is ready to reschedule. [facility] 08-14-2025 Miscellaneous Notes Formattin g of this note might be different from the original. Spoke with patient. Patient wants to delay treatment until after the new year. Patient will reach out when he is ready to reschedule. Noted. Please contact patient. If he wishes to delay treatment until after upcoming cardiac care, that is OK. If he wishes to re-schedule, then I recommend following the instructions as provided. If he has any further questions for me, please let me know. Thank you, José Sheikh APRN.SHARON documented in this encounter [facility] 08-14-2025 Telephone encount er Note Noted. Please contact patient. If he wishes to delay treatment until after upcoming cardiac care, that is OK. If he wishes to re-schedule, then I recommend following the instructions as provided. If he has any further questions for me, please let me know. Thank you, José Sheikh APRN.CNP [facility] 08-02-2025 History of Presen t illness Narrative Images from the original note were not included. Department of Dermatology José Sheikh APRN.CNP Last [...] Skin Check Subjective and Objective HPI: Raya Mcnair is a 85 year old male who [...] service to the patient. José Sheikh APRN.CNP documented in this encounter [facility] 08-02-2025 Note HNO ID: [id number] Author: JOSÉ SHEIKH APRN.CNP Service: ? Author Type: Nurse Practitioner Type: Progress Notes Filed: 08/02/2025 17:00 Note Text: Department of Dermatology José Sheikh APRN.CNP Last [...] Skin Check Subjective and Objective HPI: Raya Mcnair is a 85 year old male who [...] acting as scribe for José Sheikh APRN.SHARON. August 02, 2025 4:28 PM I agree with the Chief Complaint, ROS, and Past Histories independently gathered by the clinical administrative support clerk and the remaining scribed note accurately describes my personal service to the patient. José Sheikh APRN.SHARON [facility] 07-31-2025 Instructions Alton Tarango LPN - 07/31/2025 3:33 PM EDT [facility] Thank you for allowing [...] helpful. Additional information can be obtained at: [email or web address]-cancer -[email or web address]-detection 2. In many cases, skin cancer can [...] changing mole to your health care provider. documented in this encounter [facility] 07-23-2025 Procedure note [facility] 07-23-2025 Procedure note [facility] 07-11-2025 Note HNO ID: [id number] Author: JOSE RAMON MEDINA MD Service: ? Author Type: Physician Type: [...] He continues to follow up with his activities assistant, with an appointment scheduled for the [...] - Follow-up with cardiology post-cardioversion. Jose Ramon Medina MD, FACS [facility] 07-11-2025 History of Present illness Narrative CC - surveillance visit for history of [...] He continues to follow up with his activities assistant, with an appointment scheduled for the [...] - Follow-up with cardiology post-cardioversion. Jose Ramon Medina MD, FACS documented in this encounter [facility] 06-26-2025 Evaluation note Diagnosis Onset Date Resolution Fatigue acute June 26 9:27am Crohn disease chronic June 26, 2025 9:27am Atrial fibrillation, new onset inactive June 26, 2025 9:27am Atrial fibrillation acute June 28, 2025 1:38pm Essential hypertension chronic June 28, 2025 1:38pm Presence of stent in coronary artery Mar, 2021 chronic June 28 1:38pm [facility] Work Phone: 1(806) 303-163007-22-2025 Radiology Diagnostic study note [facility] [address] [place] [address] Chest 1 View (Portable) MR#: [id number] Acct: [id number] Name: RAYA MCNAIR Rep #: [id number] : 1940 M 85 From: Kash Edmond MD PCP: Dao Raphael Jr., MD Status: REG ER Study:Chest 1 View (Portable) Date of Exam: 06/19/25 Exam# [id number] Ordering Dr: Kapil Velasquez DO PROCEDURE: CHEST 1 VIEW (PORTABLE) 06/19/2025 REASON FOR EXAM: PALPITATIONS TECHNIQUE: Frontal view of the chest. COMPARISON: 06/14/2025 FINDINGS: Lungs/Pleura: Clear. No pneumothorax or pleural effusion. Heart/Mediastinum: Mild cardiomegaly. No vascular congestion. Bones/Soft tissues: Degenerative changes of the spine and bilateral AC joints. RAD/Chest 1 View (Portable) IMPRESSION: Cardiomegaly. No acute pulmonary disease. Reading Location: [id number] CC: Dr. Luis Velasquez DO; Dao Raphael Jr., MD ~ [place]: Signed [facility]07-17-2025 Radiology Diagnostic study note [facility] [address] [place], [place] [id number] Chest 1 View (Portable) MR#: [id number] Acct: [id number] Name: RAYA MCNAIR Rep #: [id number] : 1940 M 85 From: Lizbeth Crowell MD PCP: Status: PRE ER Study:Chest 1 View (Portable) Date of Exam: 06/14/25 Exam# [id number] Ordering Dr: Provider ,Ed P. PROCEDURE: CHEST 1 VIEW (PORTABLE) 06/14/2025 REASON FOR EXAM: CHEST PAIN TECHNIQUE: Frontal view of the chest. COMPARISON: None FINDINGS: Hardware: None Heart: Not significantly enlarged Lungs: No focal consolidation or pleural effusion. Bones: Degenerative changes are identified within the thoracic spine. RAD/Chest 1 View (Portable) IMPRESSION: No acute cardiopulmonary abnormality. Reading Location: [facility] CC: ED PHYSICIAN PROVIDER ~ [place]: Signed [facility]07-17-2025 Instructions* Patient Instructions* Kris Crouch MD - 06/14/2025 4:36 PM EDT YOU WILL NEED AN EVALUATION IN THE [place] [facility] NOW [facility] History of Present illness Narrative* Agustin Turner RT(R) - 06/14/2025 4:00 PM EDT Radiology Service Progress Note PATIENT NAME: Raya Mcnair DATE OF SERVICE: June 14, 2025 TIME: 3:58 PM PATIENT IDENTITY VERIFICATION COMPLETED USING TWO (2) IDENTIFIERS: Name and Date of confirmedby patient verbally. FALL SCREENING: Has the patient had 2 falls in the last year or 1 fall with injury or currently using an Ambulatory Assistive Device (Walker, Cane, Wheelchair, Crutches, etc.)? No PATIENT GENDER DATA: Assigned male at PATIENT RELEVANT IMPLANT DATA REVIEWED: Yes PATIENT PRESENTS WITH AN IMPLANTABLE OR ATTACHED OUTSIDE SALES ADVERTISING EXECUTIVE: No RADIOLOGY DEPARTMENT: General X-ray: Exam(s) Completed: Chest X-Ray PERIPHERAL IV DATA: Not applicable SIGNED BY: RT Rodolfo(R) June 14, 2025 3:58 PM documented [facility]2025 NoteHNO ID: [id number] Author: AGUSTIN TURNER RT(Amy) Service: ? Author Type: Office Correspondent Type: Progress Notes Filed: 06/14/2025 16:20 Note Text: Radiology Service Progress Note PATIENT NAME: Raya Mcnair DATE OF SERVICE: June 14, 2025 TIME: [...] PATIENT PRESENTS WITH AN IMPLANTABLE OR ATTACHED OUTSIDE SALES ADVERTISING EXECUTIVE: No RADIOLOGY DEPARTMENT: General X-ray: Exam(s) Completed: Chest X-Ray PERIPHERAL IV DATA: Not applicable SIGNED BY: RT Rodolfo(R) June 14, 2025 3:58 [facility]25 NoteHNO ID: [id number] Author: KRIS CROUCH MD Service: ? Author Type: Physician Type: Progress Notes Filed: 06/14/2025 16:40 Note Text: [facility] Subjective Raya Mcnair is a 85 year old male. Patient [...] type - ICD9: 786.50, ICD10: R07.9 Kris Crouch MD History and Record Review External record(s) reviewed: prior outpatient record. Systemic symptoms present included: DYSPNEA Differential Diagnoses - cardiac ischemia is more likely for the following reason(s): St elevations, suggested by HANDP and consistent with imaging Management Management of the patient was discussed with:ED Physician or Supervisory/Collaborating Physician Discussion with ED Physician or Supervisory/Collaborating Physician included: discussed with robert ed pt refuses transport will await arrival for immediate eval Disposition The patient was [facility]. [facility] History of Present illness Narrative* Kris Crouch MD - 06/14/2025 3:50 PM EDT [facility] Subjective Raya Mcnair is a 85 year old male. Patient presents with: Chest Congestion: Shortness of Breath, wheeze, tightness in chest, nasal drainage, nasal congestionx 2 days Pt here with mid sternal [...] and shortness of breath. Negative for wheezing andstridor. Cardiovascular: Negative for chest pain, palpitations and leg swelling. Neurological: Negative for dizziness. Objective BP 138/68 Pulse 98 Temp 37.7 C (99.9 F) Resp 24 Wt 104 kg (229 lb 4.5 oz) SpO2 96% BMI 33.86 kg/m Physical Exam Vitals and nursing note reviewed. [...] diagnosis) - COVID-19 MOLECULAR (POC) - INFLUENZA A&B MOLECULAR (POC) - XR CHEST 2V FRONTAL/LAT - ECG COMPLETE 2. URI, acute - ICD9: 465.9, ICD10: J06.9 - COVID-19 MOLECULAR (POC) - INFLUENZA A&B MOLECULAR (POC) - XR CHEST 2V FRONTAL/LAT 3. Dyspnea, unspecified type - ICD9: 786.09, ICD10: R06.00 - XR CHEST 2V FRONTAL/LAT - ECG COMPLETE 4. Chest pain, unspecified type - ICD9: 786.50, ICD10: R07.9 Kris Crouch MD History and Record Review External record(s) reviewed: prior outpatient record. Systemic symptoms present included: DYSPNEA Differential Diagnoses - cardiac ischemia is more likely for the following reason(s): St elevations, suggested by H&P and consistent with imaging Management Management of the patient was discussed with:ED Physician or Supervisory/Collaborating Physician Discussion with ED Physician or Supervisory/Collaborating Physician included: discussed with [place] pt refuses transport will await arrival for immediate eval Disposition The patient was discharged. Procedures [facility] Telephone encounter Note * Telephone Encounter - Foreign Guerrero RN - 05/14/2025 10:14 AM EDT Called patient regarding biopsy results and to discuss Mohs surgery expectations/instructions. Patient voiced understanding and would like to proceed. Routed to Mohs schedulers to set up appointment time. Preference is JL. Foreign Guerrero RN May 14, 2025 10:16 AM [facility]-16-[facility] Miscellaneous Notes* Telephone Encounter - Foreign Guerrero RN - 05/14/2025 10:14 AM EDT Called patient regarding biopsy results and to discuss Mohs surgery expectations/instructions. Patient voiced understanding and would like to proceed. Routed to Mohs schedulers to set up appointment time. Preference is JL. Foreign uGerrero RN May 14, 2025 10:16 AM * Telephone Encounter - Foreign Guerrero RN - 05/14/2025 8:03 AM EDT Active PDT order for full face and ears, cannot be completed 4 - 6 weeks pre/post mohs (if PDT is for location different than lesion, okay to have at the same time) PROCEDURE & TIME REQUIRED Mohs Micrographic surgery: AUC: 9 Mohs surgery preoperative scoring for BCC and SCC (for scheduling): Lesion 1 1. Where is the lesion located? Nose, Ear, Eyelids, or Lips (2 point) A. Skin, right superior helix, shave biopsy: - Invasive moderately-differentiated squamous cell carcinoma. 2. Is the lesion a recurrent tumor? Unknown (0 points) 3. Does the tumor have an aggressive histologic subtype? (micronodular or infiltrative BCC, moderate or poorly differentiated SCC) Yes (1 point) 4. Lesion size <1 cm (0 points) Size: 0.7 x 0.6 cm Total Points for Lesion: 3 If 2 lesions are close together and done on the same day add 1 point. Total points: 3 If score is 3 or higher, schedule in AM Mohs slots only If score is 5 or higher, please hold 2 Mohs surgery slots For every 4 additional points hold an additional slot If the lesion has 6 or greater number of pieces please schedule at location where 2 histotechs are located. Please include total points in the appointment visit notes. Derm time required: one slot and AM - within 4-6 weeks Approved by: Foreign Guerrero RN Schedule with: First Available Location: Patient Preference *Photos in 05/10 Office Visit * Telephone Encounter - José Sheikh APRN.CNP - 05/11/2025 3:26 PM EDT Please call the patient with the following results: FINAL DIAGNOSIS A. Skin, right superior helix, shave biopsy: - Invasive moderately-differentiated squamous cell carcinoma. Recommended treatment: mohs Recommend Follow up Full Body Skin Check in 3 months. Thank you, José Sheikh APRN.CNP [facility] Telephone encounter Note * Telephone Encounter - Foreign Guerrero RN - 05/14/2025 8:03 AM EDT Active PDT order for full face and ears, cannot be completed 4 - 6 weeks pre/post mohs (if PDT is for location different than lesion, okay to have at the same time) PROCEDURE & TIME REQUIRED Mohs Micrographic surgery: AUC: 9 Mohs surgery preoperative scoring for BCC and SCC (for scheduling): Lesion 1 1. Where is the lesion located? Nose, Ear, Eyelids, or Lips (2 point) A. Skin, right superior helix, shave biopsy: - Invasive moderately-differentiated squamous cell carcinoma. 2. Is the lesion a recurrent tumor? Unknown (0 points) 3. Does the tumor have an aggressive histologic subtype? (micronodular or infiltrative BCC, moderate or poorly differentiated SCC) Yes (1 point) 4. Lesion size <1 cm (0 points) Size: 0.7 x 0.6 cm Total Points for Lesion: 3 If 2 lesions are close together and done on the same day add 1 point. Total points: 3 If score is 3 or higher, schedule in AM Mohs slots only If score is 5 or higher, please hold 2 Mohs surgery slots For every 4 additional points hold an additional slot If the lesion has 6 or greater number of pieces please schedule at location where 2 histotechs are located. Please include total points in the appointment visit notes. Derm time required: one slot and AM - within 4-6 weeks Approved by: Foreign Guerrero RN Schedule with: First Available Location: Patient Preference *Photos in 05/10 [facility] Telephone encounter Note* Telephone Encounter - José Sheikh APRN.CNP - 05/11/2025 3:26 PM EDT Please call the patient with the following results: FINAL DIAGNOSIS A. Skin, right superior helix, shave biopsy: - Invasive moderately-differentiated squamous cell carcinoma. Recommended treatment: mohs Recommend Follow up Full Body Skin Check in 3 months. Thank you, José Sheikh APRN.CENTRIFUGAL CASTING MACHINE TENDER [facility]06-12-[facility] History of Present illness Narrative* José Sheikh APRN.CNP - 05/10/2025 1:30 PM EDT Images from the original note were not included. Department of Dermatology José Sheikh APRN.CNP Last visit in Dermatology: 04/12/2025 Objective/Assessment/Plan Skin Exam 1. NEOPLASM OF UNSPECIFIED BEHAVIOR OF BONE, SOFT TISSUE, AND SKIN Right Superior Wil[place] 7 x 6 mm erythematous hyperkeratotic papule [...] Forearm - Posterior, Right Forehead (2), Right Hoahaoism Erythematous, hyperkeratotic papules CRYOTHERAPY SKIN LESION - Left Buccal Cheek, Right Forearm - Posterior, Right Forehead (2), Right Hoahaoism Complexity: simple Destruction method: cryotherapy Informed consent: [...] and plaques. Scattered to the trunk, bilateral upperextremities, bilateral lower extremities. Observational course. Monitor for [...] Skin Check Subjective and Objective HPI: Raya Mcnair is a 85 year old male who [...] shave biopsy Informed Consent Consent Obtained: Verbal [place] Protocol A moment to CARE was completed [...] service to the patient. José Sheikh APRN.CNP documented in this encounterCity [facility]06-12-2025 NoteHNO ID: [id number] Author: JOSÉ SHEIKH APRN.CNP Service: ? Author Type: Nurse Practitioner Type: Progress Notes Filed: 05/10/2025 14:34 Note Text: Department of Dermatology José Sheikh APRN.CNP Last visit in Dermatology: 04/12/2025 Objective/Assessment/Plan Skin Exam 1. NEOPLASM OF UNSPECIFIED BEHAVIOR OF BONE, SOFT TISSUE, AND SKIN Right Superior Wil[place] 7 x 6 mm erythematous hyperkeratotic papule [...] Forearm - Posterior, Right Forehead (2), Right Hoahaoism Erythematous, hyperkeratotic papules CRYOTHERAPY SKIN LESION - Left Buccal Cheek, Right Forearm - Posterior, Right Forehead (2), Right Hoahaoism Complexity: simple Destruction method: cryotherapy Informed consent: [...] Skin Check Subjective and Objective HPI: Raya Mcnair is a 85 year old male who [...] abdomen, bilateral upper extremities, bilateral lower extremities, (more content not included)...[facility]06-12-2025 Instructions* Patient Instructions* Alton Tarango LPN - 05/10/2025 9:07 AM EDT GENERAL SUN SAFETY Thank you for allowing [...] mirror to assist in seeing body areas thatare difficult to see otherwise. If you have a family member that can assist, this is often helpful.Additional information can be obtained at: www.skincancer.org/arho-ukbmfp-vvamorghkjo/early-detection 2. In many cases, skin cancer can [...] are healing, please send your provider a NameMedia message or call . CARE FOR YOUR SHAVE BIOPSY SITE Please follow these instructions for daily wound care: 1. Wash the area every day with gentle soap and water. 2. Apply a thin layer of Vaseline or Aquaphor to the wound site to keep the area slightly greasy atall time (this helps to prevent scabbing). Please [...] are healing, please send your provider a NameMedia message or call . documented in this encounterCity Hospital05-15-2025 Instructions* Patient Instructions* Ramila Anna RN - 04/12/2025 10:13 AM EDT After Care Instructions Photodynamic Therapy with Levulan [...] to the entire treated area, twice a dayas needed for 2-4 days, to help decrease redness and irritation. Apply the steroid BEFORE applying Aquaphor ointment, not afterwards. Apply cool compresses as needed for comfort during the first few days. After day 3, gently exfoliate with a soft washcloth and warm water twice a day. Then apply either Aquaphor or Vaseline. To address swelling and redness, you may also take ncee-ktn-rlzquez oral medications: Claritin (loratidine) 10 mg in the morning, Benadryl (diphenhydramine) 25-50 mg nightly (may cause drowsiness) and/or Ibuprofen as directed. If you absolutely must go outdoors during the first 48 hours, cover yourself with a broad-brimmed hat and use Neutrogena sensitive skin (chemical free) sunscreen SPF 30, or other titanium-dioxide type of sunscreen, in a thick layer to protect you from sunlight documented in this encounterCity Hospital05-15-2025 NoteHNO ID: [id number] Author: MARIFER RICKS RN Service: ? Author Type: Registered Nurse Type: Progress Notes Filed: 04/12/2025 11:40 Note Text: PHOTODYNAMIC THERAPY April 12, 2025 Dx: Actinic Keratosis Pt ID verified with patient: Yes Procedure verified against order and with patient: Yes Skin prepped with 70% isopropyl alcohol Yes Area treated: Full face and Bilateral ears Number of Levulan sticks applied: 2 Lot # [id number] 03/2027 Time before Blue Light exposure: 15 minutes Area treated: Full face and Bilateral ears Pt exposed to light for 30 minutes Patient reaction during treatment: None, patient tolerated procedure well. Patient reaction after treatment: None, patient tolerated procedure well. Aftercare instructions given. Patient verbalizes understanding. Follow up with José Sheikh CNP . Ramila [facility] RN [facility] 12[facility] History of Present illness Narrative* Marifer Ricks RN - 04/12/2025 10:12 AM EDT PHOTODYNAMIC THERAPY April 12, 2025 Dx: Actinic Keratosis Pt ID verified with patient: Yes Procedure verified against order and with patient: Yes Skin prepped with 70% isopropyl alcohol Yes Area treated: Full face and Bilateral ears Number of Levulan sticks applied: 2 Lot # [id number] 03/2027 Time before Blue Light exposure: 15 minutes Area treated: Full face and Bilateral ears Pt exposed to light for 30 minutes Patient reaction during treatment: None, patient tolerated procedure well. Patient reaction after treatment: None, patient tolerated procedure well. Aftercare instructions given. Patient verbalizes understanding. Follow up with José Sheikh CNP . Ramila Anna RN April 12, 2025 documented in this encounterCity Hospital04-08-2025 History of Present illness Narrative* Hortencia Gerard PA-C - 03/06/2025 2:00 PM EDT CHIEF COMPLAINT: follow up for BPH with LUTS HPI: 84 y/o male here for follow up for BPH with LUTS. He is s/p XPS done on 06/27/2019. He c/o NTF-3, frequency. He is on flomax 0.8mg with [...] HISTORY Procedure Laterality Date CHOLECYSTOSTOMY PRQ W/IMAGING & CATHETER PLMT CYSTOURETHROSCOPY 05/26/2019 Cystoscopy/TRUS -Dr. Felipe [...] 400 Units by mouth once daily. vit A,C,P-Gqsj-Yrkphw (PRESERVISION AREDS) 7,160 unit- 113 mg-100 unit [...] Each 1 each TOPICAL As Directed Corrie Stone PA-C 2 each at 05/10/24 1321 REVIEW [...] GENERAL:Wnl nutrition, no deformities, healthy appearing HEAD & NECK: No masses, icterus. RESP: NL effort, no retractions or purse-lip breathing. ABDOMEN: No masses, tenderness, organomegaly. SKIN: No rash or lesions NEURO: A/Ox3 PSYCH: Nl mood, with no signs of depression, anxiety, or agitation. EXTREMITIES: Extremities normal. No deformities, edema The sensitive examination was discussed with the Patient or Patient's Authorized Pony Roll Finisher. Asapplicable, any other physician, advance practice provider, medical student, or other health professional student that will be observing or involved in the sensitive examination for educational or training purposes was discussed with the Patient or Authorized Pony Roll Finisher. The Patient or Authorized Pony Roll Finisher has agreed to proceed with the sensitive examination. (Sensitive examination includes inspection and/or palpation of the breasts, pelvis, prostate and anorectal regions) GENITOURINARY: MALE EXAM: Rectal Exam: Prostate: enlarged, symmetrical, nontender, w/o nodules. Sphincter tone normal, no mass. Anus and perineum wnl. MEDICAL DECISION MAKING: IMPRESSION: (Diagnostic Possibilities) New or Established 1) BPH 2) LUTS PLAN: (Management Options) Refill medication Hortencia Gerard PA-C documented in this encounterCity Hospital04-08-2025 NoteHNO ID: [id number] Author: HORTENCIA GERARD PA-C Service: ? Author Type: Physician Program Administrator Type: Progress Notes Filed: 03/06/2025 12:29 Note [...] 400 Units by mouth once daily. vit A,C,G-Jiyj-Frqkuh (PRESERVISION AREDS) 7,160 unit- 113 mg-100 unit [...] Each 1 each TOPICAL As Directed Corrie Stone PA-C 2 each at 05/10/24 1321 REVIEW [...] and paralysis PHYSICAL EXAM: GENERAL:Wnl nutrition, no d (more content not included)...[facility]04-03-2025 Instructions* Patient Instructions* José Sheikh APRN.CENTRIFUGAL CASTING MACHINE TENDER - 03/01/2025 7:14 AM EDT CARE FOR YOUR SHAVE BIOPSY SITE Please follow these instructions for daily wound care: 1. Wash the area every day with gentle soap and water. 2. Apply a thin layer of Vaseline or Aquaphor to the wound site to keep the area slightly greasy atall time (this helps to prevent scabbing). Please [...] are healing, please send your provider a NameMedia message or call . documented in this encounterCity Hospital04-03-2025 NoteHNO ID: [id number] Author: JOSÉ SHEIKH APRN.CNP Service: ? Author Type: Nurse Practitioner Type: Progress Notes Filed: 03/01/2025 07:28 Note Text: Department of Dermatology José Sheikh APRN.CNP Last [...] LESION, SKIN Subjective and Objective HPI: Raya Mcnair is a 85 year old male who presents for: # lesion Location: left forearm Duration: 2-3 weeks Symptoms: changing in appearance Current Treatment: none Past Treatment: none Past medical history is reviewed. - Melanoma 2023), SCCIS(2022), SCC and BCC(2019) Medication list is reviewed. Physical Exam included: Left forearm Intake information obtained by EVELYN Adler APRN.CNPP[facility] History of Present illness Narrative* José Sheikh APRN.CNP - 03/01/2025 6:53 AM EDT Images from the original note were not included. Department of Dermatology José Sheikh APRN.CNP Last [...] LESION, SKIN Subjective and Objective HPI: Raya Mcnair is a 85 year old male who presents for: # lesion Location: left forearm Duration: 2-3 weeks Symptoms: changing in appearance Current Treatment: none Past Treatment: none Past medical history is reviewed. - Melanoma 2023), SCCIS(2022), SCC and BCC(2019) Medication list is reviewed. Physical Exam included: Left forearm Intake information obtained by EVELYN Adler APRN.CNP documented in this encounterCity Hospital03-06-2025 History of Present illness Narrative* José Sheikh APRN.CNP - 02/01/2025 12:00 PM EST Department of Dermatology José Sheikh APRN.CNP 02/01/2025 Last visit in Dermatology: 11/02/2024 Objective/Assessment/Plan [...] and plaques. Scattered to the trunk, bilateral upperextremities, bilateral lower extremities. Observational course. Monitor for [...] Skin Check Subjective and Objective HPI: Raya Mcnair is a 85 year old male who [...] acting as scribe for José Sheikh APRN.CNP. February 01, 2025 12:09 PM Intake: Fern Machado LPN I agree with the Chief Complaint, ROS, and Past Histories independently gathered by the clinical administrative support clerk and the remaining scribed note accurately describes my personal service to the patient. José Sheikh APRN.CNP documented in this encounterCity Hospital03-06-2025 NoteHNO ID: [id number] Author: JOSÉ SHEIKH APRN.CNP Service: ? Author Type: Nurse Practitioner Type: Progress Notes Filed: 02/01/2025 13:30 Note Text: Department of Dermatology José Sheikh APRN.CNP 02/01/2025 Last visit in Dermatology: 11/02/2024 Objective/Assessment/Plan [...] Skin Check Subjective and Objective HPI: Raya Mcnair is a 85 year old male who [...] APRN.SHARON. February 01, 2025 12:09 PM Intake: Fern Machado LPN I agree with the Chief Complaint, ROS, and Past Histories independently gathered by the clinical administrative support clerk and the remaining scribed note accurately describes my personal service to the patient. José Sheikh APRN.[facility]ON[facility]03-[facility] Instructions* Patient Instructions* Tawny Bradford LPN - 02/01/2025 11:40 AM EST GENERAL SUN SAFETY Thank you for allowing [...] mirror to assist in seeing body areas thatare difficult to see otherwise. If you have a family member that can assist, this is often helpful.Additional information can be obtained at: www.skincancer.org/sfnb-ivchfh-ouvzygktjli/early-detection 2. In many cases, skin cancer can [...] changing mole to your health care provider. documented in this encounterCity Hospital02-17-2025 Evaluation note* Diagnosis Onset Date Resolution Status Admit Date Crohn disease chronic January 152024 8:09am Diarrhea chronic January 15, 2025 8:09am Hyperlipidemia chronic December 302024 9:26am Hypertension chronic December 9:26am Obesity chronic January 17, 2025 9:26am Type 2 diabetes mellitus chronic January 17, 2025 9:26am [facility] Work Phone: 1(893) 341-700301-28-2025 Evaluation note* Diagnosis Onset Date Resolution Status Admit Date Essential hypertension chronic Ja ary 2024 9:45am Presence of stent in coronar y artery Mar, 2021 chronic December 26 9:45am Crohn disease chronic January 152024 8:09am Diarrhea chronic January 15, 2025 8:09am Hyperlipidemia chronic December 302024 9:26am Hypertension chronic December 9:26am Obesity chronic January 17, 2025 9:26am Type 2 diabetes mellitus chronic January 17, 2025 9:26am [facility] Work Phone: 1(384) 179-892801-23-2025 NoteHNO ID: [id number] Author: JOSE RAMON MEDINA MD Service: ? Author Type: Physician Type: Progress Notes Filed: 12/22/2024 17:30 Note Text: GENERAL SURGERY Clinic Follow-up NOTE Patient name: Raya Mcnair Date of : 1940 PRESENTING COMPLAIN: follow up post WLE of left shoulder lesion HISTORY OF PRESENT ILLNESS: Raya Mcnair is a 84 year old male SCC in situ (right yazidism 2022), BCC (left mandible 2019), SCC (lower [...] Lactose GI Upset ASSESSMENT AND PLAN: Raya Mcnair is a 84 year old male SCC insitu (right yazidism 2022), BCC (left mandible 2019), SCC (lower [...] our clinic for any issues or concerns. [facility]01-23-2025 History of Present illness Narrative* Jose Ramon Medina MD - 12/21/2024 10:59 AM EST Images from the original note were not included. GENERAL SURGERY Clinic Follow-up NOTE Patient name: Raya Mcnair Date of : 1940 PRESENTING COMPLAIN: follow up post WLE of left shoulder lesion HISTORY OF PRESENT ILLNESS: Raya Mcnair is a 84 year old male SCC in situ (right yazidism 2022), BCC (left mandible 2019), SCC (lower lip 2019), BPH, HTN, Crohns, DM and CAD who presents today as afollow up for a wide-local excision of left [...] HISTORY Procedure Laterality Date CHOLECYSTOSTOMY PRQ W/IMAGING & CATHETER PLMT CYSTOURETHROSCOPY 05/26/2019 Cystoscopy/TRUS -Dr. Felipe [...] Other: See Comments Lactose GI Upset ASSESSMENT & PLAN: Raya Mcnair is a 84 year old male SCC insitu (right yazidism 2022), BCC (left mandible 2019), SCC(lower lip 2019), BPH, HTN, Crohns, DM and [...] the patient and discussed his management with theresident. I reviewed the resident's note and agree with the documented findings and plan of care. The patient has a Stage IB melanoma and did not undergo a sentinel lymph node biopsy secondary to hisage and risk factors. He understood that this was a relatively lower risk melanoma and that we would see him in 6 months for surveillance. He was encouraged to continue dermatology surveillance as well. He was instructed on the signs/symptoms of melanoma recurrence and agreed to contact our clinic for any issues or concerns. * Jose Ramon Medina MD - 12/21/2024 10:37 AM EST Additional intake questions: Has the patient had fever, nausea, vomiting, diarrhea, constipation, fatigue for > 1 week? No Does the patient have a decreased appetite? No Does patient want to see a Local Government Legislator? No (yes to any of above refer patient to schedulers for dietitian appointment) ) Does patient have any new or increased numbness or tingling of extremities? No Is patient interested in fertility information? No Does patient need any prescription refills? No Does patient have an advanced directive in place? Yes, copies are in [employer] Electronically Signed By: Pancho Vazquez MA documented in this encounterCity Hospital01-23-2025 NoteHNO ID: [id number] Author: JOSE RAMON MEDINA MD Service: ? Author Type: Physician Type: Progress Notes Filed: 12/22/2024 17:30 Note Text: Additional intake questions: Has the patient had fever, nausea, vomiting, diarrhea, constipation, fatigue for > 1 week? No Does the patient have a decreased appetite? No Does patient want to see a Local Government Legislator? No (yes to any of above refer patient to schedulers for dietitian appointment) ) Does patient have any new or increased numbness or tingling of extremities? No Is patient interested in fertility information? No Does patient need any prescription refills? No Does patient have an advanced directive in place? Yes, copies are in [employer] Electronically Signed By: Pancho Vazquez [facility]01-03-2025 Telephone encounter Note* Telephone Encounter - Marifer Romano RN - 12/01/2024 4:34 PM EST Faxed over path report and op report [facility] Work Phone: 1(944) 915-924001-03-2025 Miscellaneous Notes* Telephone Encounter - Marifer Romano RN - 12/01/2024 4:34 PM EST Faxed over path report and op report * Telephone Encounter - Don Carranza - 12/01/2024 1:31 PM EST Jane from pt's PCP's office Dr. Raphael is requesting pt's Pathology results faxed to: [phone]/ATTN: Krista Contact info: [phone] documented in this encounterCity Hospital01-03-2025 Telephone encounter Note * Telephone Encounter - Don Carranza - 12/01/2024 1:31 PM EST Jane from pt's PCP's office Dr. Raphael is requesting pt's Pathology results faxed to: [phone]/ATTN: Krista Contact info: [phone] [facility]12[facility]30[facility] Note* Discharge Instr - Nursing - Nafisa Lynch RN - 11/27/2024 12:51 PM EST Discharge instructions: Schedule follow up appointment in [...] questions or concerns during business hours call [phone] or after hours (after 5 pm or on the weekend) call [phone] and ask for the general surgery resident / fellow eligibility consultant for further instructions. If you have [...] pain, shortness of breath or difficulty breathing [facility]-30[facility]2024 Miscellaneous Notes* Discharge Instr - Nursing - Nafisa Lynch RN - 11/27/2024 12:51 PM EST Discharge instructions: Schedule follow up appointment in [...] questions or concerns during business hours call [phone] or after hours (after 5 pm or on the weekend) call [phone] and ask for the general surgery resident / fellow eligibility consultant for further instructions. If you have [...] pain, shortness of breath or difficulty breathing documented in this encounterCity Hospital12-30-2024 Surgery Surgical operation note* Operative Report - Jose Ramon Medina MD - 11/27/2024 12:09 PM EST OPERATIVE/PROCEDURE REPORT LOG ID: [id number] SURGERY/PROCEDURE DATE: 11/27/2024 INCISION/PROCEDURE START TIME: 12:22 PM INCISION CLOSE/PROCEDURE END TIME: 12:33 PM SURGEON(S)/PROCEDURALIST(S) AND RESEARCH MANAGER(S): Surgeons and Role: * Jose Ramon Medina MD - Primary No Additional Staff SURGERY/PROCEDURE(S): [...] wound was copiously irrigated with sterile water. Hemostasiswas meticulously achieved. The wound was re-approximated with [...] performed the entire procedure. SIGNATURE: Jose Ramon Medina MD PATIENT NAME: Raya Mcnair DATE: November 27, 2024 TIME: 2:55 PM [facility] Work Phone: 1(551) 762-269112-30-2024 Surgical operation note* Operative Report - Jose Ramon Medina MD - 11/27/2024 12:09 PM EST OPERATIVE/PROCEDURE REPORT LOG ID: [id number] SURGERY/PROCEDURE DATE: 11/27/2024 INCISION/PROCEDURE START TIME: 12:22 PM INCISION CLOSE/PROCEDURE END TIME: 12:33 PM SURGEON(S)/PROCEDURALIST(S) AND RESEARCH MANAGER(S): Surgeons and Role: * Jose Ramon Medina MD - Primary No Additional Staff SURGERY/PROCEDURE(S): [...] wound was copiously irrigated with sterile water. Hemostasiswas meticulously achieved. The wound was re-approximated with [...] performed the entire procedure. SIGNATURE: Jose Ramon Medina MD PATIENT NAME: Raya Mcnair DATE: November 27, 2024 TIME: 2:55 PM documented in this encounterCity Hospital12-19-2024 NoteHNO ID: [id number] Author: JOSE RAMON MEDINA MD Service: ? Author Type: Physician Type: Progress Notes Filed: 11/16/2024 16:50 Note Text: HISTORY AND PHYSICAL EXAMINATION Patient Name: Raya Mcnair PRIMARY CARE PHYSICIAN: Dao Raphael Jr, MD CHIEF COMPLAINT: Melanoma HPI: This is a 84 year old male who presents with lesion on Lt upper back with a biopsy positive for melanoma. 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 HISTORY AND PHYSICAL EXAMINATION Patient Name: Raya Mcnair PRIMARY CARE PHYSICIAN: Dao Raphael Jr, MD CHIEF COMPLAINT: Melanoma HPI: This is a 84 year old male who presents with lesion on Lt upper back with a biopsy positive for melanoma. 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 pT Category pT2a PAST MEDICAL HISTORY: PAST MEDICAL HISTORY Diagnosis Date Essential hypertension, benign Unspecified asthma(493.90) Unspecified sleep apnea PAST SURGICAL HISTORY: PAST SURGICAL HISTORY Procedure Laterality Date CHOLECYSTOSTOMY PRQ W/IMAGING & CATHETER PLMT CYSTOURETHROSCOPY 05/26/2019 Cystoscopy/TRUS -Dr. Felipe [...] Admission Medications: TRULICITY 1.5 mg/0.5 mL pen injector^Inject 1.5 mg subcutaneously one time a week.^Disp: ^Rfl: cetirizine (ZYRTEC) 10 mg tablet^Take 1 tablet by mouth once daily.^Disp: 90 tablet^Rfl: 0 tamsulosin (FLOMAX) 0.4 mg^Take 2 capsules by mouth once daily.^Disp: 180 capsule^Rfl: 3 clobetasol (TEMOVATE) 0.05 % ointment^Apply to affected area twice daily as needed. Use 5 days per week. Not for face, armpits or groin^Disp: 30 g^Rfl: 1 montelukast (SINGULAIR) 10 mg tablet^Take 1 tablet by mouth daily at bedtime.^Disp: 90 tablet^Rfl: 1 triamcinolone acetonide (KENALOG) 0.1 % ointment^Apply to affected area twice daily as needed. Use for up to a week on stinging/burning areas of the face. DO NOT USE FOR MORE THAN ONE WEEK^Disp: 80 g^Rfl: 0 triamcinolone acetonide (KENALOG) 0.1 % ointment^Apply to affected area twice daily as needed. Apply to affected area twice daily as needed.^Disp: 453.6 g^Rfl: 1 metFORMIN ER (GLUCOPHAGE XR) 500 mg 24 hr tablet^^Disp: ^Rfl: mupirocin (BACTROBAN) 2 % ointment^Apply to affected area three times daily.^Disp: 30 g^Rfl: 0 isosorbide mononitrate ER (IMDUR) 30 mg 24 hr tablet^^Disp: ^Rfl: atorvastatin (LIPITOR) 40 mg tablet^^Disp: ^Rfl: vit C/E/zinc ox/radha/lut/zeax (ICAPS AREDS2 ORAL)^Take by mouth.^Disp: ^Rfl: Vitamin E, dl, acetate, (VITAMIN E) 400 unit capsule^Take 400 Units by mouth once daily.^Disp: ^Rfl: vit A,C,M-Agbu-Rlwwlq (PRESERVISION AREDS) 7,160 unit- 113 mg-100 unit tab^^Disp: ^Rfl: amlodipine besylate (AMLODIPINE ORAL)^Take 5 mg by mouth two times a day.^Disp: ^Rfl: valsartan (DIOVAN) 320 mg tablet^Take 160 mg by mouth once daily. ^Disp: ^Rfl: hydroCHLOROthiazide (HYDRODIURIL, ESIDRIX) 25 mg tablet^Take 25 mg by mouth every other day. ^Disp: ^Rfl: metoprolol succinate ER (TOPROL XL) 25 mg 24 hr tablet^Take 100 mg by mouth once daily. ^Disp: ^Rfl: cholecalciferol, vitamin D3, 4,000 unit cap^Take 1 capsule by mouth daily^Disp: ^Rfl: aspirin(ECOTRIN LOW STRENGTH 81 MG TAB)^Take one (1) tablet every other day ^Disp: ^Rfl: 0 albuterol HFA (PROVENTIL HFA, VENTOLIN HFA) 90 mcg/actuation inhaler^Inhale 2 Puffs as instructed every 4 hours as needed for wheezing/shortness of breath.^Disp: 8 g^Rfl: 0 (Patient not taking: Reported on 11/16/2024) clopidogrel (PLAVIX) 75 mg tablet^Take 75 mg by mouth once daily.^Disp: ^Rfl: folic acid 1 mg tablet^Take 1 mg by mouth once daily.^Disp: ^Rfl: sulfaSALAzine (AZULFIDINE) 500 mg tablet^Take 500 mg by mouth four times daily.^Disp: ^Rfl: TRULICITY 0.75 mg/0.5 mL pen injector^^Disp: ^Rfl: (Patient not taking: Reported on 11/16/2024) BRILINTA 90 mg tablet^^Disp: ^Rfl: ALLERGIES: ALLERGIES Allergen Reactions Gluten Other: See [...] BP 154/67 Pulse 67 Temp (!) 35.9 C (96.6 F) (Temporal) Resp 20 SpO2 99% General Appearance: [...] male presenting with Pmhx of SCCIS right yazidism 08/2023, 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 I reviewed the resident's note and agree with the documented findings and plan of care. Will plan for wide local excision in the clinic procedure room on 11/27/2024. Patient will be contacted for exact time. All questions were answered to his satisfaction. * Pancho Vazquez MA - 11/16/2024 10:44 AM EST Additional intake questions: Has the patient had fever, nausea, vomiting, diarrhea, constipation, fatigue for > 1 week? No Does the patient have a decreased appetite? No Does patient want to see a Local Government Legislator? No (yes to any of above refer patient to schedulers for dietitian appointment) ) Does patient have any new or increased numbness or tingling of extremities? No Is patient interested in fertility information? No Does patient need any prescription refills? No Does patient have an advanced directive in place? Yes, copies are in [employer] [facility] documented in this encounterCity [facility]12-19-2024 NoteHNO ID: [id number] Author: PANCHO VAZQUEZ MA Service: ? Author Type: Internet Systems Administrator Type: Progress Notes Filed: 11/16/2024 16:50 Note Text: Additional intake questions: Has the patient had fever, nausea, vomiting, diarrhea, constipation, fatigue for > 1 week? No Does the patient have a decreased appetite? No Does patient want to see a Local Government Legislator? No (yes to any of above refer patient to schedulers for dietitian appointment) ) Does patient have any new or increased numbness or tingling of extremities? No Is patient interested in fertility information? No Does patient need any prescription refills? No Does patient have an advanced directive in place? Yes, copies are in [employer] Electronically Signed By: Pancho Vazquez [facility]12-16-2024 Telephone encounter Note* Telephone Encounter - Kulwinder Davidson RN - 11/13/2024 10:18 AM EST Reached out to general surgery nurse skin care consultant and [facility] tessa to establish an appointment with Dr. Medina for a surgical consult for a WLE and SLNB. Patient did discuss the results with the referring provider. [facility] Miscellaneous Notes* Telephone Encounter - Kulwinder Davidson RN - 11/13/2024 10:18 AM EST Reached out to general surgery nurse skin care consultant and Lucero zarate to establish an appointment with Dr. Medina for a surgical consult for a WLE and SLNB. Patient did discuss the results with the referring provider. * Telephone Encounter - Corrie Stone PA-C - 11/09/2024 6:04 PM EST LVMTCB * Telephone Encounter - Corrie Stone PA-C - 11/09/2024 6:00 PM EST FINAL DIAGNOSIS A. Skin, right breast, shave biopsy: - Inflamed seborrheic keratosis. B. Skin, left upper back, shave biopsy: - Melanoma, see comment and synoptic report. SDB/LX/mm/11/08/2024 Diagnosis Comment B. Histologic sections demonstrate a broad and asymmetric compound melanocytic proliferation on heavily sun-damaged skin. The junctional melanocytes are arranged in rare small nests and predominantlyas single cells along the dermal- epidermal junction with confluence and upward migration of [...] been determined by the performing laboratory within [facility] Pathology and Laboratory Medicine Department ([facility], [facility], [facility], [facility], [facility],or [facility]) in a manner consistent with CLIA requirements. One or more of these tests have not been cleared or approved by the FDA. RT-PLM is regulated under CLIA as qualified to perform high-complexity testing. These tests are used for clinical purposes. They should not be regarded as invest igational or for research. Positive and negative controls [...] 1, 8th Ed.) it is the managing physician s responsibility to establish the final pathologic stage based upon all pertinent information, including but potentially not limited to this pathology report. pT Category pT2a . Recommended treatment: WLE + SLNBx Size: 0.6 x 0.8 cm Follow up full body skin check in 3 months Thank you, Corrie Stone PA-C documented in this encounterCity Hospital12-12-2024 Telephone encounter Note * Telephone Encounter - Corrie Stone PA-C - 11/09/2024 6:04 PM EST LVMTCB [facility] Telephone encounter Note* Telephone Encounter - Corrie Stone PA-C - 11/09/2024 6:00 PM EST FINAL DIAGNOSIS A. Skin, right breast, shave biopsy: - Inflamed seborrheic keratosis. B. Skin, left upper back, shave biopsy: - Melanoma, see comment and synoptic report. LISA/DOLORES/bay/11/08/2024 Diagnosis Comment B. Histologic sections demonstrate a broad and asymmetric compound melanocytic proliferation on heavily sun-damaged skin. The junctional melanocytes are arranged in rare small nests and predominantlyas single cells along the dermal- epidermal junction with confluence and upward migration of [...] been determined by the performing laboratory within [facility] [place] ([facility], [facility], [facility], [facility], [facility],or [facility]) in a manner consistent with CLIA requirements. One or more of these tests have not been cleared or approved by the FDA. RT-PLM is regulated under CLIA as qualified to perform high-complexity testing. These tests are used for clinical purposes. They should not be regarded as invest igational or for research. Positive and negative controls [...] 1, 8th Ed.) it is the managing physician s responsibility to establish the final pathologic stage based upon all pertinent information, including but potentially not limited to this pathology report. pT Category pT2a . Recommended treatment: WLE + SLNBx Size: 0.6 x 0.8 cm Follow up full body skin check in 3 months Thank you, Corrie Stone PA-C [facility] History of Present illness Narrative* Corrie Stone PA-C - 11/02/2024 1:20 PM EST ESTABLISHED PATIENT 11/02/2024 Last Visit in Dermatology: 07/14/2024 with José Sheikh APRN.CNP Chief Complaint: Full Body Skin Check HPI: Raya Mcnair is a 84 year old male. 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 vit A,C,L-Dqqi-Atqiau (PRESERVISION AREDS) 7,160 unit- 113 mg-100 unit [...] discussed with the Patient or Patient's Authorized Pony Roll Finisher. Asapplicable, any other physician, advance practice provider, medical student, or other health professional student that will be observing or involved in the sensitive examination for educational or training purposes was discussed with the Patient or Authorized Pony Roll Finisher. The Patient or Authorized Pony Roll Finisher has agreed to proceed with the sensitive examination. (Sensitive examination includes inspection and/or palpation of the breasts, pelvis, prostate and anorectal regions) Jasso Skin Type: II The patient is a pleasant male in no apparent distress. Alert and oriented x 3. Appears well developed, well nourished, and in otherwise good health. A skin exam of the (full body) scalp, face, ears,neck, chest, abdomen, back, bilateral upper extremities, bilateral lower extremities, buttocks, hands, feet, and nails was performed. Underwear was kept on per patient preference, excluding genitalia. IMPRESSION Scar (s) without evidence of recurrence Left Cheek (4), Left Forearm - Posterior, Left Superior Wilton (2), Neck - Posterior, Right Cheek, Right Forearm - Posterior (2), Right Superior Wilton (2), Right Hoahaoism (5) Erythematous papule(s) with gritty scale Right [...] and plaques throughout trunk and extremities ASSESSMENT & PLAN History of nonmelanoma skin cancer No evidence of recurrence on exam. Continued monitoring. Regular skin exams discussed given increased risk of subsequent cutaneous malignancies. Actinic keratosis -Discussed etiology and possibility of AK transformation to SCC. -Discussed treatment options and the risks and benefits of each including LN2, field treatment with5-fluorouracil (efudex), and photodynamic therapy; patient opts for field treatment with 5-fluorouracil. -Pt opts for Cryosurgery of pre-malignant lesion(s) today in office CRYOTHERAPY SKIN LESION - Left Cheek (4), Left Forearm - Posterior, Left Superior Wilton (2), Neck -Posterior, Right Cheek, Right Forearm - Posterior (2), Right Superior Wilton (2), Right Hoahaoism (5) Complexity: simple Destruction method: cryotherapy Informed [...] Procedure: shave Informed Consent Consent Obtained: Verbal [place] Protocol A moment to CARE was completed [...] Linda Bear MA acting as scribe for PATRICIA Echavarria on November 02, 2024 at 1:03 PM I agree with the Chief Complaint, ROS, and Past Histories independently gathered by the clinical administrative support clerk and the remaining scribed note accurately describes my personal service to the patient. Corrie Stone PA-C November 02, 2024 2:08 PM Medical Decision Making: Problems: Moderate: 1+ chronic illnesses with change Risk: Moderate: Moderate risk from testing/treatment Medical Decision Making Level: 4 - Moderate documented in this encounterCity Hospital12-05-2024 NoteHNO ID: [id number] Author: CORRIE STONE PA-C Service: ? Author Type: Physician Program Administrator Type: Progress Notes Filed: 11/02/2024 14:08 Note Text: ESTABLISHED PATIENT 11/02/2024 Last Visit in Dermatology: 07/14/2024 with José Sheikh APRN.CNP Chief Complaint: Full Body Skin Check HPI: Raya Mcnair is a 84 year old male. 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 vit A,C,E-Hewl-Ejsvzp (PRESERVISION AREDS) 7,160 unit- 113 mg-100 unit [...] discussed with the Patient or Patient's Authorized Pony Roll Finisher. As applicable, any other physician, advance practice provider, medical student, or other health professional student that will be observing or involved in the sensitive examination for educational or training purposes was discussed with the Patient or Authorized Pony Roll Finisher. The Patient or Authorized Pony Roll Finisher has agreed to proceed with the sensitive [...] (4), Left Forearm - Posterior, Left Superior Wilton (2), Neck - Posterior, Right Cheek, Right Forearm - Posterior (2), Right Superior Wilton (2), Rig (more content not included)...[facility]12-04-2024 Instructions* Patient Instructions* Linda Bear MA - 11/01/2024 10:14 AM EST SKIN CARE AFTER CRYOSURGERY The skin's response [...] are healing, please send your provider a NameMedia message or call . CARE FOR YOUR SHAVE BIOPSY SITE Please follow these instructions for daily wound care: 1. Wash the area every day with gentle soap and water. 2. Apply a thin layer of Vaseline or Aquaphor to the wound site to keep the area slightly greasy atall time (this helps to prevent scabbing). Please [...] are healing, please send your provider a NameMedia message or call . GENERAL SUN SAFETY [...] mirror to assist in seeing body areas thatare difficult to see otherwise. If you have a family member that can assist, this is often helpful.Additional information can be obtained at: [email or web address]-knurbk-[email or web address]-detection 2. In many cases, skin cancer can [...] changing mole to your health care provider. documented in this encounterCity Hospital11-19-2024 Telephone encounter Note * Telephone Encounter - Marifer Ricks RN - 10/17/2024 1:31 PM EST [facility] 06/2024 [facility] Miscellaneous Notes* Telephone Encounter - Marifer Ricks RN - 10/17/2024 1:31 PM EST [facility] 06/2024 documented in this encounterCity Hospital11-19-2024 Telephone encounter Note * Telephone Encounter - Ghazal Jorge - 10/17/2024 9:08 AM EST Attempt #1 - LVM Attempt#2 - MC Two attempts made on 10/17/24 to inform patient that their 10/17/24 appt with José Kori , has been cancelled/rescheduled. Special Instructions: NA [facility] Miscellaneous Notes* Telephone Encounter - Ghazal Jorge - 10/17/2024 9:08 AM EST Attempt #1 - LVM Attempt#2 - MC Two attempts made on 10/17/24 to inform patient that their 10/17/24 appt with José Kori , has been cancelled/rescheduled. Special Instructions: NA documented in this encounterCity Hospital11-12-2024 NoteHNO ID: [id number] Author: HORTENCIA GERARD PA-C Service: ? Author Type: Physician Program Administrator Type: Progress Notes Filed: 10/10/2024 08:42 Note [...] 400 Units by mouth once daily. vit A,C,F-Akau-Jspood (PRESERVISION AREDS) 7,160 unit- 113 mg-100 unit [...] Each 1 Each TOPICAL As Directed Corrie Stone PA-C 2 Each at 05/10/24 1321 REVIEW [...] pain or swelling, back pain, and muscle (more content not included)...[facility]11-12-2024 History of Present illness Narrative* Hortencia Gerard PA-C - 10/10/2024 8:17 AM EST CHIEF COMPLAINT: follow up for BPH with [...] HISTORY Procedure Laterality Date CHOLECYSTOSTOMY PRQ W/IMAGING & CATHETER PLMT CYSTOURETHROSCOPY 05/26/2019 Cystoscopy/TRUS -Dr. Felipe [...] 400 Units by mouth once daily. vit A,C,Z-Nfbr-Kbkrko (PRESERVISION AREDS) 7,160 unit- 113 mg-100 unit [...] of breath. (Patient not taking: Reported on 04/07/2024)8 g 0 triamcinolone acetonide (KENALOG) 0.1 % [...] Each 1 Each TOPICAL As Directed Corrie Stone PA-C 2 Each at 05/10/24 1321 REVIEW [...] GENERAL:Wnl nutrition, no deformities, healthy appearing HEAD & NECK: No masses, icterus. RESP: NL effort, [...] 0.8mg Follow up in 3 months Hortencia Gerard PA-C documented in this encounterCity Hospital08-27-2024 Telephone encounter Note * Telephone Encounter - Hortencia Gerard PA-C - 07/25/2024 2:38 PM EDT Patient informed of scrotal US. Patient instructed to call with any questions or concerns. [facility] Miscellaneous Notes* Telephone Encounter - Hortencia Gerard PA-C - 07/25/2024 2:38 PM EDT Patient informed of scrotal US. Patient instructed to call with any questions or concerns. documented in this encounterCity Hospital08-22-2024 History of Present illness Narrative* Nidia Aguilar RDMS - 07/20/2024 10:45 AM EDT Radiology Service Progress Note PATIENT NAME: Raya Mcnair DATE OF SERVICE: July 20, 2024 TIME: 11:39 AM PATIENT IDENTITY VERIFICATION COMPLETED USING TWO (2) IDENTIFIERS: Name and Date of confirmedby patient verbally. FALL SCREENING: Has the patient had 2 falls in the last year or 1 fall with injury or currently using an Ambulatory Assistive Device (Walker, Cane, Wheelchair, Crutches, etc.)? No PATIENT GENDER DATA: Male PATIENT RELEVANT IMPLANT DATA REVIEWED: Not Applicable PATIENT PRESENTS WITH AN IMPLANTABLE OR ATTACHED OUTSIDE SALES ADVERTISING EXECUTIVE: No RADIOLOGY DEPARTMENT: Biopsy and Ultrasound PERIPHERAL IV DATA: Not applicable SIGNED BY: Nidia Aguilar RDMS July 20, 2024 11:39 AM documented in this encounterCity Hospital08-19-2024 Telephone encounter Note * Telephone Encounter - Hortencia Gerard PA-C - 07/17/2024 1:28 PM EDT Patient with L scrotal skin lesion x 1 day. It is approximately the size of a pencil eraser. Denies any pain. Denies any other complaints. Patient to proceed with scrotal US. Patient instructed to call with any questions or concerns. [facility] Miscellaneous Notes* Telephone Encounter - Hortencia Gerard PA-C - 07/17/2024 1:28 PM EDT Patient with L scrotal skin lesion x 1 day. It is approximately the size of a pencil eraser. Denies any pain. Denies any other complaints. Patient to proceed with scrotal US. Patient instructed to call with any questions or concerns. documented in this encounterCity Hospital08-16-2024 Instructions* Patient Instructions* José Sheikh APRN.CENTRIFUGAL CASTING MACHINE TENDER - 07/14/2024 12:16 PM EDT GENERAL SUN SAFETY Thank you for allowing [...] mirror to assist in seeing body areas thatare difficult to see otherwise. If you have a family member that can assist, this is often helpful.Additional information can be obtained at: [email or web address] 2. In many cases, skin cancer can [...] are healing, please send your provider a NameMedia message or call . documented in this encounterCity Hospital08-16-2024 History of Present illness Narrative* José Sheikh APRN.CNP - 07/14/2024 12:00 PM EDT Images from the original note were not included. Department of Dermatology José Sheikh APRN.CNP 07/14/2024 Last visit in Dermatology: 05/10/2024 Objective/Assessment/Plan 1. AK (actinic keratosis) (7) Left Buccal Cheek, Left Parotid Area, Left Zygomatic Area, Right Frontal Scalp, Right Parotid Area,Right Superior Wilton, Right Zygomatic Area Erythematous, hyperkeratotic papules CRYOTHERAPY SKIN LESION - Left Buccal Cheek, Left Parotid Area, Left Zygomatic Area, Right Frontal Scalp, Right Parotid Area, Right Superior Wilton, Right Zygomatic Area Complexity: simple Destruction method: cryotherapy Informed consent: discussed and consent obtained Timeout: patient name, date of , surgical site, and procedure verified Lesion destroyed using liquid nitrogen: Yes Cryotherapy cycles: 2 Outcome: patient tolerated procedure well with no complications Post-procedure details: wound care instructions given Additional details: I discussed treatment options with the patient. The risks of blistering, infection, scarring, damage to underlying structures and potential need for future procedures discussed. The patient verbalized understanding and desires us to proceed. Related Medications Aminolevulinic Acid HCl 20 % soln 1 Each Follow-up as noted below or as needed. Chief Complaint: Patient presents with: Actinic Keratosis Subjective and Objective HPI: Raya Mcnair is a 84 year old male who presents for: #1 AK follow-up Location: full face and bilateral ears Symptoms/Course: overall improved - patient notes a persistent rough lesion to right ear Current Treatment: none Past Treatment: PDT 05/10/[address] Past medical history is reviewed. Medication list is reviewed. Physical Exam included: Face, ears, neck Intake: EVELYN Tang APRN.CENTRIFUGAL CASTING MACHINE TENDER documented in this encounterCity Hospital06-12-2024 Instructions* Patient Instructions* Marifer Ricks RN - 05/10/2024 12:51 PM EDT After Care Instructions Photodynamic Therapy with Levulan [...] to the entire treated area, twice a dayas needed for 2-4 days, to help decrease redness and irritation. Apply the steroid BEFORE applying Aquaphor ointment, not afterwards. Apply cool compresses as needed for comfort during the first few days. After day 3, gently exfoliate with a soft washcloth and warm water twice a day. Then apply either Aquaphor or Vaseline. To address swelling and redness, you may also take isbx-rrt-iykbhny oral medications: Claritin (loratidine) 10 mg in the morning, Benadryl (diphenhydramine) 25-50 mg nightly (may cause drowsiness) and/or Ibuprofen as directed. If you absolutely must go outdoors during the first 48 hours, cover yourself with a broad-brimmed hat and use Neutrogena sensitive skin (chemical free) sunscreen SPF 30, or other titanium-dioxide type of sunscreen, in a thick layer to protect you from sunlight documented in this encounterCity Hospital06-12-2024 History of Present illness Narrative* Marifer Ricks RN - 05/10/2024 12:50 PM EDT PHOTODYNAMIC THERAPY May 10, 2024 Dx: Actinic Keratosis Pt ID verified with patient: Yes Procedure verified against order and with patient: Yes Skin prepped with 70% isopropyl alcohol Yes Area treated: Full face and Bilateral ears Number of Levulan sticks applied: 2 Lot # [id number] Exp 10/2026 Time before Blue Light exposure: 15 minutes Area treated: Full face and Bilateral ears Pt exposed to light for 30 minutes Patient reaction during treatment: None, patient tolerated procedure well. Patient reaction after treatment: None, patient tolerated procedure well. Aftercare instructions given. Patient verbalizes understanding. Follow up with José Sheikh CNP . Marifer Ricks RN documented [facility]05-10-[facility] History of Present illness Narrative* Ralph Felipe MD - 04/07/2024 12:00 PM EDT pt no show Ralph Felipe MD documented in this encounterCity Hospital05-10-2024 History of Present illness Narrative* Joés Sheikh APRN.CENTRIFUGAL CASTING MACHINE TENDER - 04/07/2024 10:48 AM EDT Images from the original note were not included. Department of Dermatology José Sheikh APRN.CENTRIFUGAL CASTING MACHINE TENDER Last visit in Dermatology: 02/11/2024 Objective/Assessment/Plan 1. AK (actinic keratosis) Photodistributed Numerable erythematous, hyperkeratotic papules to the face - Discussed premalignant nature and possibility of transformation to SCC - Discussed risks and benefits of treatment options including cryotherapy vs Efudex 5% vs PDT. - Patient elects for treatment with PDT in the fall. Offered to freeze prominent lesions today. Defers. PDT: - Discussed medication dosage, usage, goals of therapy, expectations and side effects. Tips for symptomatic relief discussed with patient. - Patient to schedule PDT. - Recommended follow-up 3 months after treatment. Discussed possibility of needing additional treatments in future. Related Procedures PDT 2020 Related Medications Aminolevulinic Acid HCl 20 % soln 1 Each 2. Nummular eczema Left Thigh - Anterior, Right Forearm - Anterior Post inflammatory erythema. No active inflammation or scale -resolved with clobetasol. Can resume as directed for flares for up to 21 days per month. R/b/a forthe medication(s) including possible side effects discussed and reviewed with patient. -encouraged liberal application of moisturizers as needed for dryness/irritation. -wash daily with gentle cleanser and water -avoid irritation by using dye-free and fragrance-free products (soaps, cleansers, detergents, etc.) Follow-up as noted below or as needed. Chief Complaint: Patient presents with: Derm Problem Subjective and Objective HPI: Raya Mcnair is a 84 year old male who presents for: AK and rash follow up -Actinic keratoses frozen 02/10. Has diffuse actinic damage. Was scheduled for red light therapy that was postponed due to recent MOHS. -nummular eczema treated with clobetasol on 02/10. Admits dramatic improvement Past medical history is reviewed. Medication list is reviewed. Physical Exam included: To waist: Scalp, face, ears, neck, back, chest, abdomen, bilateral upper extremities Carri Jackson APRN.CNP (training) I have seen and evaluated the patient and discussed the case with the PA/LEAD PROGRAMMER trainee. I agree with the assessment and plan as documented in the PA/LEAD PROGRAMMER's note. José Sheikh APRN.CNP documented in this encounterCity Hospital03-15-2024 Instructions* Patient Instructions* José Sheikh APRN.CNP - 02/11/2024 12:19 PM EDT Images from the original note were not included. SKIN CARE AFTER CRYOSURGERY The skin's response [...] are healing, please send your provider a Mychart message or call . documented in this encounterCity Hospital03-15-2024 History of Present illness Narrative* José Sheikh APRN.CNP - 02/11/2024 12:07 PM EDT Images from the original note were not included. Department of Dermatology José Sheikh APRN.CNP 02/11/2024 Last visit in Dermatology: 01/04/2024 Objective/Assessment/Plan 1. Nummular dermatitis Left Thigh - Anterior, Right Forearm - Anterior 2 mildly erythematous eczematous plaques -encouraged liberal application of moisturizers as needed for dryness/irritation. -wash daily with gentle cleanser and water -avoid irritation by using dye-free and fragrance-free products (soaps, cleansers, detergents, etc.) -for flares start twice daily as needed application of clobetasol ointment for up to 21 days per month. R/b/a for the medication(s) including possible side effects discussed and reviewed with patient. 2. Inflamed seborrheic keratosis (2) Left Upper Back, Right Lower Back Irritated hyperpigmented, stuck-on papule CRYOTHERAPY SKIN LESION - Left Upper Back, Right Lower Back Complexity: simple Destruction method: cryotherapy Informed consent: discussed and consent obtained Timeout: patient name, date of , surgical site, and procedure verified Lesion destroyed using liquid nitrogen: Yes Region frozen until ice ball extended beyond lesion: Yes Cryotherapy cycles: 2 Outcome: patient tolerated procedure well with no complications Post-procedure details: wound care instructions given Additional details: Seborrheic Keratoses - Discussed etiology and natural history of condition, including benign nature. - Discussed that if symptomatic/bothersome, may consider intervention. - If asymptomatic intervention would be cosmetic in nature. - Discussed risks and benefits of observation vs cryotherapy vs shave removal vs curettage. - Patient opts for cryotherapy Cryosurgery of non-malignant lesion(s) Risks, benefits, alternatives and personnel required for cryosurgery reviewed with patient. Pt verbalizes understanding and wishes to proceed. 3. AK (actinic keratosis) (5) Left Anterior Neck, Left Ear, Left Parotid Area, Right Ear, Right Hoahaoism Erythematous, hyperkeratotic papules CRYOTHERAPY SKIN LESION - Left Anterior Neck, Left Ear, Left Parotid Area, Right Ear, Right Hoahaoism Complexity: simple Destruction method: cryotherapy Informed consent: discussed and consent obtained Timeout: patient name, date of , surgical site, and procedure verified Lesion destroyed using liquid nitrogen: Yes Cryotherapy cycles: 2 Outcome: patient tolerated procedure well with no complications Post-procedure details: wound care instructions given Additional details: I discussed treatment options with the patient. The risks of blistering, infection, scarring, damage to underlying structures and potential need for future procedures discussed. The patient verbalized understanding and desires us to proceed. Related Medications Aminolevulinic Acid HCl 20 % soln 1 Each The nature of sun-induced photo-aging and skin cancers is discussed. Sun avoidance, protective clothing, and the use of 30-SPF sunscreens is advised. Patient is instructed to perform regular self exams. Observe for changing, symptomatic, or new skin lesions and seek care with the patient's primary care provider or with dermatology if any lesions of concern are noted. Follow-up as noted below or as needed. Chief Complaint: Patient presents with: Rash Subjective and Objective HPI: Raya Mcnair is a 84 year old male who presents for: - Rash to back and thighs follow-up - Patient states that rash comes and goes. Patient notes only mild flare on the left thigh and right elbow area today. - Complains of pruritus and bothersome to patient when flared - Current treatments: Triamcinolone ointment 5 days a week. - patient admits he is not moisturizing. - No inciting factors known Past medical history is reviewed. Medication list is reviewed. Physical Exam included: Face, ears, neck, back, chest, abdomen, bilateral upper extremities, and left thigh Intake completed by EVELYN Tang APRN.CENTRIFUGAL CASTING MACHINE TENDER documented in this encounterCity Hospital12-28-2023 History of Present illness Narrative* Karey Story RT(R) - 11/25/2023 8:40 AM EST Radiology Service Progress Note PATIENT NAME: Raya Mcnair DATE OF SERVICE: November 25, 2023 TIME: 8:36 AM PATIENT IDENTITY VERIFICATION COMPLETED USING TWO (2) IDENTIFIERS: Name and Date of confirmedby patient verbally. FALL SCREENING: Has the patient had 2 falls in the last year or 1 fall with injury or currently using an Ambulatory Assistive Device (Walker, Cane, Wheelchair, Crutches, etc.)? No PATIENT GENDER DATA: Male PATIENT RELEVANT IMPLANT DATA REVIEWED: Yes RADIOLOGY DEPARTMENT: General X-ray: Exam(s) Completed: Chest X-Ray PERIPHERAL IV DATA: Not applicable SIGNED BY: RT Yoni(R) November 25, 2023 8:36 AM documented in this encounterCity Hospital11-29-2023 History of Present illness Narrative* Gracia Washington MD - 10/27/2023 7:30 AM EST MOHS MICROGRAPHIC OPERATIVE REPORT SERVICE DATE: 10/27/2023 SERVICE TIME: 729 LOCATION: [place] [address] REFERRING PROVIDER: José Sheikh [address] [place] [address] SURGEON: Dr. Gracia Washington FELLOW: Dr. Liss Lara REGISTERED NURSE: Debbie Rothman Osickey, Thompson ANTICOAGULANTS: ASA - 81 MG 10/27 Stopped Plavix last week IMPLANTED DEVICES: None ANTIBIOTIC PROPHYLAXIS: Not required TRANSPLANT PATIENT: No PHOTOS: Photos taken Patient seen for Mohs surgery. BP noted to be elevated 188/78. He denied any headache, SOB, vision changes, numbness tingling or chest pain. Given the HTN we will defer surgery today. He does report white coat syndrome. We reviewed his pressures with his PCP who will see him for further adjustment of his meds. When cleared we will reschedule him and use Valium or Ativan if needed to lower his BP.. Advised him to bring a commercial trailer truck driver with him to his next visit. Gracia Washington MD documented in this encounterCity Hospital11-17-2023 Miscellaneous Notes* Telephone Encounter - Indiana Santos RN - 10/15/2023 1:05 PM EST Triaged in a separate telephone encounter and routed to mohs scheduling. documented in this encounterCity Hospital11-17-2023 Miscellaneous Notes* Telephone Encounter - Indiana Santos RN - 10/15/2023 1:01 PM EST Pt had mohs consult with Dr. Washington 10/06. Initially opted for red light then changed his mind to mohs per message 10/09. PROCEDURE & TIME REQUIRED Mohs Micrographic surgery: AUC: 7 Mohs surgery preoperative scoring for BCC and SCC (for scheduling): Lesion 1 1. Where is the lesion located? Other location (1 points) A. 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 2. Is the lesion a recurrent tumor?No (0 points) 3. Does the tumor have an aggressive histologic subtype? (micronodular or infiltrative BCC, moderate or poorly differentiated SCC) No (0 points) 4. Lesion size 0.6cm x 0.4cm <1 cm (0 points) Total Points for Lesion: 1 If 2 lesions are close together and done on the same day add 1 point. Total points: 1 If score is 3 or higher, schedule in AM Mohs slots only If score is 5 or higher, please hold 2 Mohs surgery slots For every 4 additional points hold an additional slot If the lesion has 6 or greater number of pieces please schedule at location where 2 histotechs are located. Please include total points in the appointment visit notes. Derm time required: one slot and AM or PM Approved by: Indiana Santos RN Schedule with: First Available Location: Pt preference *Photos in Get Images documented in this encounterCity Hospital11-08-2023 History of Present illness Narrative* Gracia Washington MD - 10/06/2023 3:15 PM EST DERMATOLOGY CONSULT FOR MOHS SERVICE DATE: 10/06/2023 PRIMARY CARE PHYSICIAN: Dao Raphael Jr, MD REFERRING PROVIDER: José Sheikh [address] [place] [address] Consultation requested for an opinion regarding the evaluation and treatment of skin cancer. My final impression and recommendations will be communicated back to the requesting physician by way of the shared medical record or letter via [place] mail. SUBJECTIVE CHIEF COMPLAINT: SCC HISTORY OF PRESENT ILLNESS BIOPSY INFORMATION: 1. 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 Report Number: Inside Pathology [id number] Date Performed: 09/17/2023 [facility] Past Treatment: No Past Treatment Tumor Type: Primary Present For: 1 month(s) Signs & Symptoms: None PAST DERM HISTORY: BCC Non-Melanoma Skin Cancer History of [facility] with [facility] Surgeon FAMILY HISTORY: No History of Skin Cancer PAST MEDICAL HISTORY Diagnosis Date Essential hypertension, benign Unspecified asthma(493.90) Unspecified sleep apnea PAST SURGICAL HISTORY Procedure Laterality Date CHOLECYSTOSTOMY PRQ W/IMAGING & CATHETER PLMT CYSTOURETHROSCOPY 05/26/2019 Cystoscopy/TRUS -Dr. Felipe EXC/DSTRJ LINGUAL TONSIL ANY METHOD SPX EXCISION LIP LESION 05/24/2020 PAST SURGICAL HISTORY OF external fix of Lt frature XCAPSL CTRC RMVL INSJ IO LENS PROSTH W/O ECP rt eye Social History Tobacco Use Smoking status: Never Smokeless tobacco: Never No family history on file. ALLERGIES Allergen Reactions Gluten Other: See Comments Lactose GI Upset MEDICATIONS: cetirizine (ZYRTEC) 10 mg tablet^Take 1 tablet by mouth once daily.^Disp: 90 tablet^Rfl: 1 montelukast (SINGULAIR) 10 mg tablet^Take 1 tablet by mouth daily at bedtime.^Disp: 90 tablet^Rfl: 1 famotidine (PEPCID) 20 mg tablet^Take 1 tablet by mouth once daily.^Disp: 90 tablet^Rfl: 1 triamcinolone acetonide (KENALOG) 0.1 % cream^Apply to affected areas on chest twice daily Wednesday-Wednesday, take weekends off for two weeks. May repeat as needed. Not for use on face, armpits, or groin.^Disp: 80 g^Rfl: 2 triamcinolone acetonide (KENALOG) 0.1 % ointment^Apply to affected area twice daily as needed. Use for up to a week on stinging/burning areas of the face. DO NOT USE FOR MORE THAN ONE WEEK^Disp: 80 g^Rfl: 0 clopidogrel (PLAVIX) 75 mg tablet^Take 75 mg by mouth once daily.^Disp: ^Rfl: triamcinolone acetonide (KENALOG) 0.1 % ointment^Apply to affected area twice daily as needed. Apply to affected area twice daily as needed.^Disp: 453.6 g^Rfl: 1 folic acid 1 mg tablet^Take 1 mg by mouth once daily.^Disp: ^Rfl: sulfaSALAzine (AZULFIDINE) 500 mg tablet^Take 500 mg by mouth four times daily.^Disp: ^Rfl: TRULICITY 0.75 mg/0.5 mL pen injector^^Disp: ^Rfl: metFORMIN ER (GLUCOPHAGE XR) 500 mg 24 hr tablet^^Disp: ^Rfl: mupirocin (BACTROBAN) 2 % ointment^Apply to affected area three times daily.^Disp: 30 g^Rfl: 0 BRILINTA 90 mg tablet^^Disp: ^Rfl: isosorbide mononitrate ER (IMDUR) 30 mg 24 hr tablet^^Disp: ^Rfl: atorvastatin (LIPITOR) 40 mg tablet^^Disp: ^Rfl: vit C/E/zinc ox/radha/lut/zeax (ICAPS AREDS2 ORAL)^Take by mouth.^Disp: ^Rfl: (Patient not taking: Reported on 09/17/2023) Vitamin E, dl, acetate, (VITAMIN E) 400 unit capsule^Take 400 Units by mouth once daily.^Disp: ^Rfl: vit A,C,U-Zgbz-Uqwsth (PRESERVISION AREDS) 7,160 unit- 113 mg-100 unit tab^^Disp: ^Rfl: amlodipine besylate (AMLODIPINE ORAL)^Take 5 mg by mouth.^Disp: ^Rfl: valsartan (DIOVAN) 320 mg tablet^Take 160 mg by mouth once daily. ^Disp: ^Rfl: hydroCHLOROthiazide (HYDRODIURIL, ESIDRIX) 25 mg tablet^Take 25 mg by mouth every other day. ^Disp: ^Rfl: metoprolol succinate ER (TOPROL XL) 25 mg 24 hr tablet^Take 100 mg by mouth once daily. ^Disp: ^Rfl: cholecalciferol, vitamin D3, 4,000 unit cap^Take 1 capsule by mouth daily^Disp: ^Rfl: aspirin(ECOTRIN LOW STRENGTH 81 MG TAB)^Take one (1) tablet every other day ^Disp: ^Rfl: 0 ANTICOAGULANTS: ASA Plavix PT INR Date Value Ref Range Status 06/16/2019 1.0 0.9 - 1.3 Final Comment: Vitamin K Antagonist (VKA) Therapeutic Range: INR 2 to 3 (Target INR of 2.5) Note: For patients treated with VKA drugs, such as warfarin, the [employer] 2012 Guideline recommends a therapeutic INR range of 2 to 3 (target INR of 2.5). This recommendation includes high-risk patients with antiphospholipid syndrome with previous arterial or venous thromboembolism, current-generation mechanical or bioprosthetic aortic heart valve replacement. Note: Patients with mechanical aortic valve replacement and additional risk factors for thromboembolic events (atrial fibrillation, previous thromboembolism, LV dysfunction, hypercoagulable conditions) or an older generation mechanical AVR (i.e., ball in-Cage) or any mechanical MVR should have a INR therapeutic range of 2.5 to 3.5 (target INR of 3). Mara GH, et al. Chest 2012, 141:7S-47S Magdaleno RA et al. [facility] 2017, 70: 252-289 MEDICAL CONDITIONS: Diabetes Mellitus, Hypertension IMPLANTED DEVICES: None TRANSPLANT PATIENT: No OBJECTIVE REVIEW OF SYSTEMS: Patient denies fatigue, fever, weight loss, shortness of breath and chest pain. ASSESSMENT PHYSICAL EXAM There were no vitals taken for this visit. GENERAL: Well developed, well nourished. No acute distress. Pleasant and cooperative. No Fatigue ormalaise. SKIN: Right yazidism with a well healed scar and scattered thin pink scaling papules PHOTOS: Photos not taken. PLAN IMPRESSION: The etiology, prognosis, and diagnosis of the skin cancer was discussed with the patient. Various treatment options were reviewed, including, but not limited to electrodessication and curretage, excision, radiation treatment, frozen sections, Mohs surgery, efudex cream and red light therapy Risks, benefits and alternatives discussed with the patient, including but not limited to bleeding,infection, nerve damage, damage to underlying structures, wound dehiscence, scarring and recurrence. The patient was given opportunity to ask questions, consents to treatment, and agrees to proceed the following treatment plan. Pt opts for redlight therapy treatment. Discussed waiting at least 6 weeks in between light therapy treatments. Follow up with me 2 weeks after red light PDT Gracia Washington MD SIGNATURE: Gracia Washington MD PATIENT NAME: Raya Mcnair DATE: October 06, 2023 TIME: 7:23 AM PAGER/CONTACT #: documented in this encounterCity Hospital10-24-2023 Miscellaneous Notes* Telephone Encounter - Viridiana Yarbrough RN - 09/21/2023 1:28 PM EDT Sent to scheduling to set up in person consult per Dr. Simon. Viridiana Yarbrough RN September 21, 2023 1:28 PM * Telephone Encounter - Christiano Simon MD - 09/21/2023 12:29 PM EDT Has 2 adjacent papules, only one was sampled In person consult needed - likely for an additional biopsy and treatment discussion Any Mohs surgeon / RSG is fine - 15 minute visit Christiano Simon MD * Telephone Encounter - Piper Montoya RN - 09/21/2023 9:[address] Simon will need in person consult due to x2 papules, but only one being sampled. PROCEDURE & TIME REQUIRED Mohs Micrographic surgery: AUC: 7 Mohs surgery preoperative scoring for BCC and SCC (for scheduling): Lesion 1 1. Where is the lesion located? Other location (1 points) A. 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 2. Is the lesion a recurrent tumor?No (0 points) 3. Does the tumor have an aggressive histologic subtype? (micronodular or infiltrative BCC, moderate or poorly differentiated SCC) No (0 points) 4. Lesion size - 0.6 x 0.4 CM <1 cm (0 points) Total Points for Lesion: 1 If 2 lesions are close together and done on the same day add 1 point. Total points: 1 If score is 3 or higher, schedule in AM Mohs slots only If score is 5 or higher, please hold 2 Mohs surgery slots For every 4 additional points hold an additional slot If the lesion has 6 or greater number of pieces please schedule at location where 2 histotechs are located. Please include total points in the appointment visit notes. 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 Recommended treatment: mohs Recommend Follow up Full Body Skin Check in 6 months. Thank you, José Sheikh APRN.CENTRIFUGAL CASTING MACHINE TENDER documented in this encounterCity Hospital10-24-2023 Telephone encounter Note * Telephone Encounter - Viridiana Yarbrough RN - 09/21/2023 1:28 PM EDT Sent to scheduling to set up in person consult per Dr. Simon. Viridiana Yarbrough RN September 21, 2023 1:28 PM [facility] Telephone encounter Note* Telephone Encounter - Christiano Simon MD - 09/21/2023 12:29 PM EDT Has 2 adjacent papules, only one was sampled In person consult needed - likely for an additional biopsy and treatment discussion Any Mohs surgeon / RSG is fine - 15 minute visit Christiano Simon MD [facility] Work Phone: [phone]) 307-738810-24-2023 Telephone encounter Note* Telephone Encounter - Piper Montoya RN - 09/21/2023 9:[address] Simon will need in person consult due to x2 papules, but only one being sampled. PROCEDURE & TIME REQUIRED Mohs Micrographic surgery: AUC: 7 Mohs surgery preoperative scoring for BCC and SCC (for scheduling): Lesion 1 1. Where is the lesion located? Other location (1 points) A. 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 2. Is the lesion a recurrent tumor?No (0 points) 3. Does the tumor have an aggressive histologic subtype? (micronodular or infiltrative BCC, moderate or poorly differentiated SCC) No (0 points) 4. Lesion size - 0.6 x 0.4 CM <1 cm (0 points) Total Points for Lesion: 1 If 2 lesions are close together and done on the same day add 1 point. Total points: 1 If score is 3 or higher, schedule in AM Mohs slots only If score is 5 or higher, please hold 2 Mohs surgery slots For every 4 additional points hold an additional slot If the lesion has 6 or greater number of pieces please schedule at location where 2 histotechs are located. Please include total points in the appointment visit notes. 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 Recommended treatment: mohs Recommend Follow up Full Body Skin Check in 6 months. Thank you, José Sheikh APRN.CENTRIFUGAL CASTING MACHINE TENDER [facility] Miscellaneous Notes* Telephone Encounter - Ramila Anna RN - 07/01/2023 3:52 PM EDT Called and clarified Ramila Anna RN July 01, 2023 3:52 PM * Telephone Encounter - Debby Avilez - 07/01/2023 3:47 PM EDT [facility] pharmacy called and needs clarification on the triamcinolone. Please advise documented in this encounterCity Hospital08-01-2023 Instructions* Patient Instructions* Fern Machado - 06/29/2023 5:40 PM EDT CARE FOR SITE WITH DISSOVABLE SUTURES Please follow these instructions for daily wound care: 1. Wash the area every day with gentle soap and water. 2. Apply a thin layer of Vaseline or Aquaphor to the wound site to keep the area slightly greasy atall time (this helps to prevent scabbing). Please do not use an old tub of ointment as this can introduce germs into your wound and cause infection. 3. Cover with a bandage and continue this daily process until the wound is healed. Do not leave a soiled or wet bandage on the wound. 4. If you are experiencing discomfort you may use a cool compress, elevate the area or take over the counter pain relievers. -Keep the area clean and dry with the bandage in place the day of surgery. -The sutures will dissolve in approximately 2 weeks. -You may shower, but do not soak [...] are healing, please send your provider a [employer] message or call . If you have skin glue on your wound site, please do not use Vaseline or aquaphor on the site until the glue is gone. This should come off in about 5-10 days. After the glue is gone, you may start to moisturize the wound site. Gently massage into the incision a few times daily. Wounds heal better and faster with moisture therapy. documented in this encounterCity Hospital08-01-2023 History of Present illness Narrative* José Sheikh APRN.CENTRIFUGAL CASTING MACHINE TENDER - 06/29/2023 3:54 PM EDT Images from the original note were not included. Department of Dermatology José Sheikh APRN.CENTRIFUGAL CASTING MACHINE TENDER 06/29/2023 Last visit in Dermatology: 05/10/2023 Objective/Assessment/Plan 1. Rash and nonspecific skin eruption Right Shoulder Numerous erythematous annular papules and plaques with overlying impetiginization to the back, chest, abdomen, bilateral upper extremities, and bilateral thigh cephALEXin (KEFLEX) 500 mg capsule - Right Shoulder Take 1 capsule by mouth twice daily for 7 days. triamcinolone acetonide (KENALOG) 0.1 % ointment - Right Shoulder Apply to affected area twice daily as needed. Apply to affected area twice daily as needed. SKIN / NAIL BIOPSY - Right Shoulder Type of biopsy: punch Informed consent: discussed and consent obtained Timeout: patient name, date of , surgical site, and procedure verified Anesthesia: the lesion was anesthetized in a standard fashion Anesthetic: 1% lidocaine w/ epinephrine 1-100,000 local infiltration Suture size: 4-0 Suture type: chromic gut Hemostasis achieved with: suture and pressure Outcome: patient tolerated procedure well Post-procedure details: sterile dressing applied and wound care instructions given Dressing type: bandage and petrolatum Specimen A - SURGICAL PATHOLOGY SKIN ONLY Related Medications triamcinolone acetonide (KENALOG) 0.1 % cream Apply to affected areas on chest twice daily Wednesday-Wednesday, take weekends off for two weeks. May repeat as needed. Not for use on face, armpits, or groin. Follow-up as noted below or as needed. Chief Complaint: Patient presents with: Rash Subjective and Objective HPI: Raya Mcnair is a 83 year old male who presents for: Rash - Reports he has had the rash for 1 month. Was previously given Doxycycline and triamcinolone during his last office visit. Previous rash on his chest is much better. - [facility] course of Doxycycline and prednisone taper. Bacterial and fungal culture negative. - States the rash is very itchy, has been taking benadryl at night time. - PCP thinks it may be medication related. Recently started taking Plavix. Past medical history is reviewed. Medication list is reviewed. Physical Exam included: Scalp, face, ears, neck, chest, back, abdomen, bilateral upper extremities, bilateral lower extremities, buttocks, hands, feet, nails and hair Intake information obtained by Linda Bear Ma 06/29/23 3:58 PM Marly Crain APRN.CENTRIFUGAL CASTING MACHINE TENDER (training) UNIVERSAL PROTOCOL / SAFETY CHECKLIST Procedure to be Performed: Punch biopsy x 1 Sign In: A Moment of CARE was completed. Personnel directly involved with the procedure wore the appropriate PPE (Personal Protective Equipment). No special equipment needed. Patient/Surrogate Stated/Verified: PATIENT VERIFIED(optional for EMERGENT procedures): Patient name, Date of , Relevant allergies, and The intended procedure Time Out Communication: Intended patient and procedure match the source documents. Consent documented and matches the intended procedure. No relevant labs, photos, and/or imaging studies were applicable for review. Correct side/site marked and visible. Medications required for procedure verified. Fire risk assessed and interventions discussed. No implant(s) inserted. Sign Out: SIGN OUT (optional for EMERGENT procedures): All specimen containers correctly labeled. All instruments, equipment, possible retained foreign bodies accounted for. Post-procedure follow-up management communicated and Plan of Care Visit completed when applicable. Fern Machado LPN I have seen and evaluated the patient and discussed the case with the PA/LEAD PROGRAMMER trainee. I agree with the assessment and plan as documented in the PA/LEAD PROGRAMMER's note. José Sheikh APRN.SHARON documented in this encounterCity Hospital07-10-2023 Miscellaneous Notes* Telephone Encounter - Lakshmi Tanner LPN - 06/07/2023 4:26 PM EDT Patient notified of results, verbalizes understanding of instructions. Lakshmi Tanner LPN * Telephone Encounter - Tawny Beckman APRN.CNP - 06/07/2023 4:08 PM EDT Please let patient know that wound culture has returned and no growth If symptoms are improving with the Doxcy, can complete as prescribed. Keep appointment with dermatology. documented in this encounterCity Hospital07-08-2023 History of Present illness Narrative* Sherlyn Monte PA-C - 06/05/2023 2:47 PM EDT Images from the original note were not included. This note was created using [employer]. Subjective Raya Mcnair is a 83 year old male. HPI Presents with a rash for 5 weeks. He was seen at dermatology May 10 for the rash which began on his chest. He was given doxycycline and triamcinolone and it seemed to go away on his chest. Now he has spots on his arms and back and flank area. It is very itchy. He had started sulfasalazine for Crohn's disease just prior to the rash starting and the pharmacist had recommended stopping that as he thought maybe it was from the sulfasalazine. He stopped that 3 to 4 weeks ago and really has not had improvement in the rash. Denies history of psoriasis or eczema. No fever. No new soaps or detergents. No new lotions. No one else around him has a rash. Review of Systems Constitutional: Negative. HENT: Negative. Respiratory: Negative. Cardiovascular: Negative. Gastrointestinal: Negative. Skin: Positive for rash. All other systems reviewed and are negative. PAST MEDICAL HISTORY Diagnosis Date Essential hypertension, benign Unspecified asthma(493.90) Unspecified sleep apnea Current Outpatient Medications Medication Sig Dispense Refill triamcinolone acetonide (KENALOG) 0.1 % cream Apply to affected areas on chest twice daily Wednesday-Wednesday, take weekends off for two weeks. May repeat as needed. Not for use on face, armpits, or groin. 80 g 0 folic acid 1 mg tablet Take 1 mg by mouth once daily. sulfaSALAzine (AZULFIDINE) 500 mg tablet Take 500 mg by mouth four times daily. triamcinolone acetonide (KENALOG) 0.1 % cream Apply to affected area twice daily as needed for irritation after PDT. 15 g 0 TRULICITY 0.75 mg/0.5 mL pen injector metFORMIN ER (GLUCOPHAGE XR) 500 mg 24 hr tablet mupirocin (BACTROBAN) 2 % ointment Apply to affected area three times daily. 30 g 0 BRILINTA 90 mg tablet isosorbide mononitrate ER (IMDUR) 30 mg 24 hr tablet atorvastatin (LIPITOR) 40 mg tablet vit C/E/zinc ox/radha/lut/zeax (ICAPS AREDS2 ORAL) Take by mouth. Vitamin E, dl, acetate, (VITAMIN E) 400 unit capsule Take 400 Units by mouth once daily. vit A,C,I-Ttdy-Vzdlcy (PRESERVISION AREDS) 7,160 unit- 113 mg-100 unit tab amlodipine besylate (AMLODIPINE ORAL) Take 5 mg by mouth. valsartan (DIOVAN) 320 mg tablet Take 160 [...] one (1) tablet every other day 0 doxycycline (VIBRA-TABS) 100 mg tablet Take 1 tablet by mouth twice daily for 7 days. 14 tablet 0 predniSONE (DELTASONE) 10 mg tablet Take 4 tabs daily for 3 days, then 2 tabs daily for 3 days, then 1 tab daily for 3 days with food. 21 tablet 0 No current facility-administered medications for this visit. PAST SURGICAL HISTORY Procedure Laterality Date CHOLECYSTOSTOMY PRQ W/IMAGING & CATHETER PLMT CYSTOURETHROSCOPY 05/26/2019 Cystoscopy/TRUS -Dr. Felipe EXC/DSTRJ LINGUAL TONSIL ANY METHOD SPX EXCISION LIP LESION 05/24/2020 PAST SURGICAL HISTORY OF external fix of Lt frature XCAPSL CTRC RMVL INSJ IO LENS PROSTH W/O ECP rt eye No family history on file. Social History Tobacco Use Smoking status: Never Smokeless tobacco: Never Objective BP 142/74 Pulse 72 Temp 36.6 C (97.9 F) (Tympanic) Resp 18 Wt 98.9 kg (218 lb) SpO2 97% BMI 32.19 kg/m Physical Exam Vitals reviewed. Constitutional: Appearance: Normal appearance. HENT: Head: Normocephalic and atraumatic. Skin: General: Skin is warm and dry. Findings: Rash present. Comments: Patient has multiple areas of raised red rash to his bilateral flank, bilateral arms and back diffusely. Some crusting noted. Neurological: Mental Status: He is alert. Assessment and Plan ASSESSMENT/PLAN: 1. Rash - ICD9: 782.1, ICD10: R21 Patient had improved on doxycycline and triamcinolone when his activities assistant had prescribed this initially. He has been off of that and then the rash returned worse. I will place him on doxycycline and also given a prednisone taper. He has a follow-up in 3 weeks with dermatology and recommended he keep this. Unsure if infectious versus inflammatory rash. - ABSCESS AND WOUND CULTURE WITH GRAM STAIN - FUNGAL SCREEN Sherlyn Monte PA-C documented in this encounterCity Hospital05-15-2023 Miscellaneous Notes* Telephone Encounter - Hortencia Gerard PA-C - 04/12/2023 4:10 PM EDT Patient informed of positive urine culture. Patient to start cipro. Patient instructed to call withany questions or concerns. documented in this encounterCity Hospital05-12-2023 Miscellaneous Notes* Addendum Note - Hortencia Gerard PA-C - 04/09/2023 2:35 PM EDTAddended by: HORTENCIA GERARD on: 04/09/2023 02:35 PM Modules accepted: Orders documented in this encounterCity Hospital05-12-2023 History of Present illness Narrative* Ralph Felipe MD - 04/09/2023 2:00 PM EDT CHIEF COMPLAINT: BPH s/p XPS HPI: 83 y/o male here for follow up for BPH s/p XPS done on 06/27/2019. Previous AUA: 14, QOL: 1, PVR: 0, 0. PVR: 115 (after surgery), 359 prior to surgery. UA today - Nitrite positive He drinks 1 12 oz of coffee. He is on a diuretics. He has crohn's disease He is diabetic He has 2 cardiac stents placed in 01/2021 per patient. AUA Symptom Score Incomplete emptyin Frequency: 5 Intermittency: 3 Urgency: 3 Weak Stream: 1 Strainin Nocturia: 5 Total score: 22 Quality of life due to urinary symptoms: 3 QOL: mixed PVR: 84 ml He has ED. He is on nitrates. Duration: years Location: Male - prostate Severity: moderate Context: voiding Qualilty: moderate Timing: constantly Improved by: Worsened by: No Change by: Associated sign & symptoms: see above MEDICAL HISTORY: PAST MEDICAL HISTORY Diagnosis Date Essential hypertension, benign Unspecified asthma(493.90) Unspecified sleep apnea SURGICAL HISTORY: PAST SURGICAL HISTORY Procedure Laterality Date CYSTO.PANENDO 05/26/2019 Cystoscopy/TRUS -Dr. Felipe EXCISION LIP LESION 05/24/2020 EXCISION OF LINGUAL TONSIL PAST SURGICAL HISTORY OF external fix of Lt frature REMV CATARACT EXTRACAP,INSERT LENS rt eye US PERC CHOLECYSTOSTOMY SOCIAL HISTORY: Social History Tobacco Use Smoking status: Never Smokeless tobacco: Never FAMILY HISTORY Denies a FH of CaP MEDS: Current Outpatient Medications Medication Sig Dispense Refill folic acid 1 mg tablet Take 1 mg by mouth once daily. sulfaSALAzine (AZULFIDINE) 500 mg tablet Take 500 mg by mouth four times daily. TRULICITY 0.75 mg/0.5 mL pen injector metFORMIN ER (GLUCOPHAGE XR) 500 mg 24 hr tablet BRILINTA 90 mg tablet isosorbide mononitrate ER (IMDUR) 30 mg 24 hr tablet atorvastatin (LIPITOR) 40 mg tablet Vitamin E, dl, acetate, (VITAMIN E) 400 unit capsule Take 400 Units by mouth once daily. vit A,C,W-Glvp-Igvvam (PRESERVISION AREDS) 7,160 unit- 113 mg-100 unit tab amlodipine besylate (AMLODIPINE ORAL) Take 5 mg by mouth. valsartan (DIOVAN) 320 mg tablet Take 160 [...] one (1) tablet every other day 0 triamcinolone acetonide (KENALOG) 0.1 % cream Apply to affected area twice daily as needed for irritation after PDT. (Patient not taking: No sig reported) 15 g 0 mupirocin (BACTROBAN) 2 % ointment Apply to affected area three times daily. (Patient not taking: No sig reported) 30 g 0 vit C/E/zinc ox/radha/lut/zeax (ICAPS AREDS2 ORAL) Take by mouth. (Patient not taking: Reported on 02/18/2023) No current facility-administered medications for this visit. REVIEW OF SYSTEMS GENERAL: weight loss (35 lbs) HEENT: Negative for frequent or significant headaches, No changes in hearing or vision, no nose bleeds or other nasal problems. NECK: Negative for lumps, pain and significant neck swelling RESPIRATORY: Negative for cough, wheezing and shortness of breath CARDIOVASCULAR: chest pain GI: abdominal discomfort and change in bowel habits : see above MUSCULOSKELETAL: muscle pain. SKIN: Negative for lesions, rash, and itching. PSYCH: Negative for sleep disturbance, mood disorder and recent psychosocial stressors. HEMATOLOGY/LYMPHOLOGY: bruising easily. ENDOCRINE: constant thirst, cold intolerance NEURO: Negative for syncope, seizures and paralysis PHYSICAL EXAM: GENERAL:Wnl nutrition, no deformities, healthy appearing HEAD & NECK: No masses, icterus. RESP: NL effort, no retractions or purse-lip breathing. ABDOMEN: No masses, tenderness, organomegaly. SKIN: No rash or lesions NEURO: A/Ox3 PSYCH: Nl mood, with no signs of depression, anxiety, or agitation. EXTREMITIES: Extremities normal. No deformities, edema GENITOURINARY: MALE EXAM: Rectal Exam: Prostate: enlarged, symmetrical, nontender, w/o nodules. Sphincter tone normal, no mass. Anus and perineum wnl. DATA/OR LABS TO BE REVIEWED: (Simple=1 data point; Complex= 2 or more) No results found for: PSA Creatinine (mg/dL) Date Value 06/16/2019 1.02 03/09/2019 1.00 01/24/2009 0.80 Hematocrit (%) Date Value 06/16/2019 47.1 01/24/2009 45.5 No results found for: TESTOST MEDICAL DECISION MAKING: IMPRESSION: (Diagnostic Possibilities) New or Established 1) BPH 2) LUTS 3) UTI PLAN: (Management Options) Urine culture Hortencia Gerard PA-C I have personally performed a face to face diagnostic evaluation on this patient. I have reviewed and agree with the care plan. My findings are as follows. History and Exam by me shows: 83 year old male with a history of worsening frequency and nocturia over the last 6 months PVR is as good as it has been since seeing me. Exam demonstrates no suprapubic tenderness. Plan: urinary frequency and nocturia: check urine c/s pt states he wishes to hold off on any additional meds at this time further rec to follow otherwise: f/u in 1 year Ralph Felipe MD documented in this encounterCity Hospital05-02-2023 Instructions* Patient Instructions* José Sheikh APRN.CENTRIFUGAL CASTING MACHINE TENDER - 03/30/2023 4:44 PM EDT SKIN CARE AFTER CRYOSURGERY The skin's response [...] are healing, please send your provider a NameMedia message or call . documented in this encounterCity Hospital05-02-2023 History of Present illness Narrative* José Sheikh APRN.CNP - 03/30/2023 4:19 PM EDT Images from the original note were not included. Department of Dermatology José Sheikh APRN.CNP 03/30/2023 Last visit in Dermatology: 02/18/2023 Objective/Assessment/Plan 1. Inflamed seborrheic keratosis Right Breast Irritated hyperkeratotic, stuck-on papule CRYOTHERAPY SKIN LESION - Right Breast Complexity: simple Destruction method: cryotherapy Informed consent: discussed and consent obtained Timeout: patient name, date of , surgical site, and procedure verified Lesion destroyed using liquid nitrogen: Yes Region frozen until ice ball extended beyond lesion: Yes Cryotherapy cycles: 2 Outcome: patient tolerated procedure well with no complications Post-procedure details: wound care instructions given Additional details: Seborrheic Keratoses - Discussed etiology and natural history of condition, including benign nature. - Discussed that if symptomatic/bothersome, may consider intervention. - If asymptomatic intervention would be cosmetic in nature. - Discussed risks and benefits of observation vs cryotherapy vs shave removal vs curettage. - Patient opts for cryotherapy Cryosurgery of non-malignant lesion(s) Risks, benefits, alternatives and personnel required for cryosurgery reviewed with patient. Pt verbalizes understanding and wishes to proceed. 2. AK (actinic keratosis) (5) Left Preauricular Area, Right Forehead, Right Hoahaoism (3) Red papules with gritty adherent scale. CRYOTHERAPY SKIN LESION - Left Preauricular Area, Right Forehead, Right Hoahaoism (3) Complexity: simple Destruction method: cryotherapy Informed consent: [...] Return if lesions fail to fully resolve. The nature of sun-induced photo-aging and skin cancers is discussed. Sun avoidance, protective clothing, and the use of 30-SPF sunscreens is advised. Patient is instructed to perform regular self exams. Observe for changing, symptomatic, or new skin lesions and seek care with the patient's primary care provider or with dermatology if any lesions of concern are noted. Follow-up as noted below or as needed. Chief Complaint: Patient presents with: LESION, SKIN Subjective and Objective HPI: Raya Mcnair is a 83 year old male who presents for: For individual lesion(s). Lesion(s): spot Location(s): right chest Duration: 4-5 weeks Symptoms: none Severity: n/a Past medical history is reviewed. Medication list is reviewed. Physical Exam included: Face and right chest Intake information obtained by Linda Bear Ma 03/30/23 4:19 PM José Sheikh APRN.CENTRIFUGAL CASTING MACHINE TENDER documented in this encounterCity Hospital03-23-2023 Instructions* Patient Instructions* José Sheikh APRN.CENTRIFUGAL CASTING MACHINE TENDER - 02/18/2023 1:17 PM EDT SKIN CARE AFTER CRYOSURGERY The skin's response [...] are healing, please send your provider a NameMedia message or call . documented in this encounterCity Hospital03-23-2023 History of Present illness Narrative* José Sheikh APRN.CNP - 02/18/2023 1:05 PM EDT Images from the original note were not included. Department of Dermatology José Sheikh APRN.CNP 02/18/2023 Last visit in Dermatology: 01/12/2023 Objective/Assessment/Plan 1. AK (actinic keratosis) (5) Left Forehead, Left Parotid Area, Right Forehead, Right Parotid Area, Right Hoahaoism Red papules with gritty adherent scale. CRYOTHERAPY SKIN LESION - Left Forehead, Left Parotid Area, Right Forehead, Right Parotid Area, Right Hoahaoism Complexity: simple Destruction method: cryotherapy Informed consent: [...] Return if lesions fail to fully resolve. 2. History of actinic keratosis Left Preauricular Area No evidence of recurrence at previous shave site Observational course. Monitor for growth and changes. Follow-up as noted below or as needed. Chief Complaint: Patient presents with: Actinic Keratosis: Follow up Subjective and Objective HPI: Raya Mcnair is a 83 year old male who presents for: Actinic keratosis follow up. Left preauricular area has healed. Patient does note some new spots onthe left forehead. Past medical history is reviewed. Medication list is reviewed. Physical Exam included: face Intake information obtained by Linda Bear Ma 02/18/23 1:07 PM José Sheikh APRN.SHARON documented in this encounterCity Hospital02-17-2023 Miscellaneous Notes* Telephone Encounter - Marifer Ricks RN - 01/15/2023 8:45 AM EST Spoke with patient, discussed results below. Patient verbalized understanding and has no further questions at this time. Patient has been scheduled accordingly. * Telephone Encounter - José Sheikh APRN.CNP - 01/14/2023 5:14 PM EST Please call the patient with the following results: Skin, left preauricular area, shave biopsy: - Hypertrophic actinic keratosis Recommended treatment: the lesion removed was pre-cancerous. I would like him to return to the office in 4-6 week for a follow up for re-evaluation Thank you, José Sheikh APRN.CNP documented in this encounterCity Hospital02-14-2023 History of Present illness Narrative* José Sheikh APRN.CENTRIFUGAL CASTING MACHINE TENDER - 01/12/2023 10:15 AM EST Images from the original note were not included. Department of Dermatology José Sheikh APRN.CENTRIFUGAL CASTING MACHINE TENDER 01/12/2023 Last visit in Dermatology: 10/12/2022 Objective/Assessment/Plan 1. Neoplasm of unspecified behavior of bone, soft tissue, and skin Left Preauricular Area 10x6mm erythematous, hyperkeratotic papule SKIN / NAIL BIOPSY Type [...] infiltration Instrument used: DermaBlade Hemostasis achieved with: pressure and aluminum chloride Outcome: patient tolerated procedure well Post-procedure details: sterile dressing applied and wound care instructions given Dressing type: bandage and petrolatum Additional details: I discussed treatment options with the patient. The risks of bleeding, infection, scarring, damage to underlying structures and potential need for future procedures discussed. Thepatient verbalized understanding and desires us to proceed. . Specimen A - SURGICAL PATHOLOGY SKIN ONLY 2. Actinic keratosis (3) Right Anterior Neck, Right Forearm - Posterior, Right Parotid Area Red papules with gritty adherent scale. CRYOTHERAPY SKIN LESION - Right Anterior Neck, Right Forearm - Posterior, Right Parotid Area Complexity: simple Destruction method: cryotherapy Informed consent: discussed and consent obtained Timeout: patient name, date of , surgical site, and procedure verified Lesion destroyed using liquid nitrogen: Yes Region frozen until ice ball extended beyond lesion: Yes Cryotherapy cycles: 2 Outcome: patient tolerated procedure well with no complications Post-procedure details: wound care instructions given Additional details: I discussed treatment options with the patient. The risks of blistering, infection, scarring, damage to underlying structures and potential need for future procedures discussed. The patient verbalized understanding and desires us to proceed. 3. Seborrheic keratosis Stuck-on verrucous, variably pigmented papules and plaques. Distributed widely on the trunk and extremities. Observational course. Monitor for growth and changes. 4. Deleon angioma Bright red papules. Distributed widely on the trunk and extremities. Observational course. Monitor for growth and changes. 5. Lentigines Densely scattered light kaur macules and small patches on all sun exposed areas. Observational course. Monitor for growth and changes. The nature of sun-induced photo-aging and skin cancers is discussed. Sun avoidance, protective clothing, and the use of 30-SPF sunscreens is advised. Patient is instructed to perform regular self exams. Observe for changing, symptomatic, or new skin lesions and seek care with the patient's primary care provider or with dermatology if any lesions of concern are noted. Follow-up as noted below or as needed. José Sheikh APRN.SHARON Chief Complaint: Patient presents with: Full Body Skin Check Subjective and Objective HPI: Raya Mcnair is a 82 year old male who presents for: Skin check. 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 Medication list is reviewed. Physical Exam included: Scalp, face, ears, neck, chest, back, abdomen, bilateral upper extremities, bilateral lower extremities, buttocks, hands, feet, nails and hair The documentation for this note was completed by Fern Machado acting as scribe for José Sheikh APRN.CENTRIFUGAL CASTING MACHINE TENDER. January 12, 2023 10:26 AM Intake completed by Fern Machado LPN UNIVERSAL PROTOCOL / SAFETY CHECKLIST Procedure to be Performed: Shave biopsy x 1 Sign In: A Moment of CARE was completed. Personnel directly involved with the procedure wore the appropriate PPE (Personal Protective Equipment). No special equipment needed. Patient/Surrogate Stated/Verified: PATIENT VERIFIED(optional for EMERGENT procedures): Patient name, Date of , Relevant allergies, and The intended procedure Time Out Communication: Intended patient and procedure match the source documents. Consent documented and matches the intended procedure. No relevant labs, photos, and/or imaging studies were applicable for review. Correct side/site marked and visible. Medications required for procedure verified. Fire risk assessed and interventions discussed. No implant(s) inserted. Sign Out: SIGN OUT (optional for EMERGENT procedures): All specimen containers correctly labeled. All instruments, equipment, possible retained foreign bodies accounted for. Post-procedure follow-up management communicated and Plan of Care Visit completed when applicable. Fern Machado LPN I agree with the Chief Complaint, ROS, and Past Histories independently gathered by the clinical administrative support clerk and the remaining scribed note accurately describes my personal service to the patient. José Sheikh APRN.SHARON documented in this encounterCity Hospital02-14-2023 Instructions* Patient Instructions* Fern Machado - 01/12/2023 9:53 AM EST GENERAL SUN SAFETY Thank you for allowing [...] mirror to assist in seeing body areas thatare difficult to see otherwise. If you have a family member that can assist, this is often helpful.Additional information can be obtained at: [email or web address] 2. In many cases, skin cancer can [...] are healing, please send your provider a NameMedia message or call . CARE FOR YOUR SHAVE BIOPSY SITE Please follow these instructions for daily wound care: 1. Wash the area every day with gentle soap and water. 2. Apply a thin layer of Vaseline or Aquaphor to the wound site to keep the area slightly greasy atall time (this helps to prevent scabbing). Please [...] are healing, please send your provider a NameMedia message or call . documented in this encounterCity Hospital11-14-2022 History of Present illness Narrative* José Sheikh APRN.SHARON - 10/12/2022 10:03 AM EST Images from the original note were not included. Department of Dermatology José Sheikh APRN.SHARON 10/12/2022 Last visit in Dermatology: 09/09/2022 Objective/Assessment/Plan 1. AK (actinic keratosis) (2) Right Ear, Right Hoahaoism 2 small erythematous, hyperkeratotic papules Patient to apply efudex to 2 affected areas twice daily x 2 weeks. R/b/a for the medication(s) including possible side effects discussed and reviewed with patient. Related Medications Fluorouracil (EFUDEX) 5 % cream Apply to affected area twice daily for 14 days. For the ear and right yazidism Follow-up as noted below or as needed. José Sheikh APRN.SHARON Chief Complaint: Patient presents with: LESION, SKIN: Follow-up Subjective and Objective HPI: Raya Mcnair is a 82 year old male who presents for: - Patient following up on removal of lesion to lower lip and PDT. Patient states improvement after PDT. Overall his skin is improved, but admits small scaly area on the right ear remains. Past medical history is reviewed. 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 Physical Exam included: Face, ears, scalp Intake completed by EVELYN Adler APRN.CENTRIFUGAL CASTING MACHINE TENDER documented [facility] this [facility] Instructions* Patient Instructions* Carri Sinha - 07/02/2022 2:17 PM EDT GENERAL [employer] SAFETY Thank you for allowing [...] mirror to assist in seeing body areas thatare difficult to see otherwise. If you have a family member that can assist, this is often helpful.Additional information can be obtained at: [email or web address] 2. In many cases, skin cancer can [...] changing mole to your health care provider. documented in this encounterCity [facility]08-04-[facility]22 History of Present illness Narrative* José Sheikh APRN.CNP - 07/02/2022 2:15 PM EDT Images from the original note were not included. Department of Dermatology José Sheikh APRN.CNP 07/02/2022 Last visit in Dermatology: 12/29/2021 Objective/Assessment/Plan 1. AK (actinic keratosis) (13) Left Forearm - Posterior, Left Hand - Posterior, Left Hoahaoism, Left Zygomatic Area, Right Ear (2), Right Forearm - Posterior, Right Hand - Posterior, Right Parotid Area, Right Supraorbital Region, Right Hoahaoism, Right Zygomatic Area (2) Red papules with gritty adherent scale. Patient to have PDT scheduled for fall/winter 2021. CRYOTHERAPY SKIN LESION - Left Forearm - Posterior, Left Hand - Posterior, Left Hoahaoism, Left Zygomatic Area, Right Ear (2), Right Forearm - Posterior, Right Hand - Posterior, Right Parotid Area, Right Supraorbital Region, Right Ho[place]aoism, Right Zygomatic Area (2) Complexity: simple Destruction method: cryotherapy Informed consent: discussed and consent obtained Timeout: patient name, date of , surgical site, and procedure verified Lesion destroyed using liquid nitrogen: Yes Cryotherapy cycles: 2 Outcome: patient tolerated procedure well with no complications Post-procedure details: wound care instructions given Related Procedures PDT 2020 2. Multiple benign nevi Mid Back Multiple scattered pink papules with flaccid epidermis and small, symmetric kaur to brown macules with uniform pigmentation over the trunk and extremities. Observational course. Monitor for growth and changes. 3. Seborrheic keratosis Right Upper Back Hyperpigmented, stuck-on papules on the trunk, bilateral upper extremities, bilateral lower extremities. Observational course. Monitor for growth and changes. 4. Deleon angioma Left Upper Back Deleon-red papules on the trunk Observational course. Monitor for growth and changes. 5. History of nonmelanoma skin cancer Mid [place] Lip No evidence of recurrence at previous surgical site Recommend Q6 month skin exams and regular dermatology follow up The nature of sun-induced photo-aging and skin cancers is discussed. Sun avoidance, protective clothing, and the use of 30-SPF sunscreens is advised. Patient is instructed to perform regular self exams. Observe for changing, symptomatic, or new skin lesions and seek care with the patient's primary care provider or with dermatology if any lesions of concern are noted. Follow-up as noted below or as needed. José Sheikh APRN.SHARON Chief Complaint: Patient presents with: Full Body Skin Check Subjective and Objective HPI: Raya Mcnair is a 82 year old male who presents for: Skin check. Desires: Total body skin check History of skin cancer?: Yes: SCC, BCC Areas of particular concern?: Yes: Lesion(s): spots Location(s): bilateral temples Duration: 2 months Symptoms: none Severity: n/a Inciting factors: no inciting factors known Associated symptoms/previous treatments: none Past medical history is reviewed. Medication list is reviewed. 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 Presence of stent in coronary artery Mar, 2021 chronic Hypertension chronic Obesity chronic Type 2 diabetes mellitus chr [facility] Work Phone: 1(322) 254-736105-01-2021 Evaluation note* Diagnosis Onset Date Resolution Status Essential hypertension acute Atherosclerotic heart diseas e of [place] coronary artery without angina pectoris chronic Presence of stent in coronary artery Mar, 2021 chronic Diarrhea [facility] Work Phone: 1(132) 915-245505-01-2021 Evaluation note* Diagnosis Onset Date Resolution Status Essential hypertension acute Presence of stent in coronary artery Mar, 2021 chronic Crohn disease chronic Diarrhea [facility] Work Phone: 1(304) 201-747505-01-2021 Evaluation note* Diagnosis Onset Date Resolution Status Crohn disease chronic Diarrhea chronic Fatigue acute Essential hypertension chron ic Presence of stent in coronary artery Mar, 2021 [facility] Work Phone: 1(882) 416-834005-01-2021 Evaluation note* Diagnosis Onset Date Resolution Status Fatigue acute Essential hypertension chron ic Presence of stent in coronary artery Mar, 2021 [facility] Work Phone: [phone]) 799-331205-01-2021 Evaluation note* Diagnosis Onset Date Resolution Status Fatigue acute Essential hypertension chron ic Presence of stent in coronary artery Mar, 2021 chronic Crohn disease chronic Diarrhea chronic Essential hypertension chron ic Obesity chronic Type 2 diabetes mellitus [facility] Work Phone: Evaluation note* Diagnosis Onset Date Resolution Status Hypertension chronic Obesity chronic Type 2 diabetes mellitus chr onic Hypertension chronic Obesity chronic Type 2 diabetes mellitus [facility] Work Phone: Evaluation note* Diagnosis Onset Date Resolution Status Hypertension chronic Obesity chronic Type 2 diabetes mellitus [facility] Work Phone: Evaluation note* Diagnosis AK (actinic keratosis)- Primary Actinic keratosis Multiple benign nevi Benign neoplasm of skin, site unspecified Seborrheic keratosis Other seborrheic keratosis Deleon angioma Nevus, non-neoplastic History of nonmelanoma skin cancer Personal history of other malignant neoplasm of skin [facility] Diagnosis Onset Date Resolution Status Hypertension chronic Obesity chronic Type 2 diabetes mellitus chr onic Essential hypertension acute Atherosclerotic heart diseas e of [place] coronary artery without angina pectoris chronic Presence of stent in coronary artery Mar, 2021 [facility] Work Phone: Evaluation note* Diagnosis Onset Date Resolution Status Hypertension chronic Obesity chronic Type 2 diabetes mellitus chr onic Essential hypertension acute Atherosclerotic heart diseas e of [place] coronary artery without angina pectoris chronic Presence of stent in coronary artery Mar, 2021 chronic Diarrhea acute [facility] Work Phone: Evaluation note* Diagnosis AK (actinic keratosis)- Primary Actinic keratosis [facility] Diagnosis Onset Date Resolution Status Diarrhea acute Crohn disease chronic Hyperlipidemia chronic Obesity chronic Type 2 diabetes mellitus chr onic [facility] Work Phone: Evaluation note* Diagnosis Neoplasm of unspecified behavior of bone, soft tissue, and skin- Primary Actinic keratosis Seborrheic keratosis Other seborrheic keratosis Deleon angioma Nevus, non-neoplastic Lentigines Other dyschromia [facility]* Diagnosis AK (actinic keratosis)- Primary Actinic keratosis History of actinic keratosis Personal history of diseases of skin and subcutaneous tissue [facility] Diagnosis Onset Date Resolution Status Crohn disease chronic Hyperlipidemia chronic Obesity chronic Type 2 diabetes mellitus chr onic Essential hypertension acute Presence of stent in coronary artery Mar, 2021 [facility] Work Phone: Evaluation note* Diagnosis Inflamed seborrheic keratosis- Primary AK (actinic keratosis) Actinic keratosis [facility]* Diagnosis Nocturia- Primary Acute cystitis with hematuria Acute cystitis OAB (overactive bladder) Hypertonicity of bladder Urinary frequency BPH with obstruction/lower urinary tract symptoms Hypertrophy of prostate with urinary obstruction and other lower urinary tract symptoms (LUTS) [facility]* Diagnosis Rash- Primary Rash and other nonspecific skin eruption [facility] Diagnosis Onset Date Resolution Status BMI 30.0-30.9,adult acute Coronary arteriosclerosis ac [place] DM w/o complication type II acute Drug-induced skin rash acute Skin Abnormalities noneactiv e Benign essential hypertension noneactive [facility] Work Phone: evaluation note* Diagnosis Rash and nonspecific skin eruption- Primary Rash and other nonspecific skin eruption [facility]* Diagnosis Onset Date Resolution Status Essential hypertension chron ic Hyperlipidemia chronic Obesity chronic Type 2 diabetes mellitus chr onic Crohn disease chronic Diarrhea chronic [facility] Work Phone: Evaluation note* Diagnosis Onset Date Resolution Status Benign essential hypertension noneactive Coronary arteriosclerosis ac [place] DM w/o complication type II acute Hypercholesteremia acute Hypertension acute Coronary arteriosclerosis ac [place] DM w/o complication type II acute Drug-induced skin rash acute Hypercholesteremia acute Hypertension acute [facility] Work Phone: evaluation note* Diagnosis 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 [facility] Diagnosis Onset Date Resolution Status Coronary arteriosclerosis ac [place] DM w/o complication type II acute Hypercholesteremia acute Hypertension acute Coronary arteriosclerosis ac [place] DM w/o complication type II acute Drug-induced skin rash acute Hypercholesteremia acute Hypertension acute Coronary arteriosclerosis ac [place] DM w/o complication type II acute Hypercholesteremia acute Hypertension acute [facility] Work Phone: evaluation note* Diagnosis Hypertension, unspecified type- Primary [facility]* Diagnosis Onset Date Resolution Status Celiac disease acute Coronary arteriosclerosis ac [place] DM w/o complication type II acute Hypercholesteremia acute Hypertension acute [facility] noneactive [facility] Work Phone: evaluation note* Diagnosis Nummular dermatitis- Primary Contact dermatitis and other eczema, due to unspecified cause Inflamed seborrheic keratosis AK (actinic keratosis) Actinic keratosis [facility]* Diagnosis Onset Date Resolution Status Crohn disease chronic Diarrhea chronic Essential hypertension chron ic Obesity chronic Type 2 diabetes mellitus [facility] Work Phone: Evaluation note* Diagnosis AK (actinic keratosis)- Primary Actinic keratosis Nummular eczema Contact dermatitis and other eczema, due to unspecified cause [facility]* Diagnosis AK (actinic keratosis)- Primary Actinic keratosis [facility]* Diagnosis NO SHOW- Primary [facility]* Diagnosis Scrotal skin lesion- Primary Unspecified disorder of male genital organs [facility]* Diagnosis Scrotal skin lesion Unspecified disorder of male genital organs [facility] Diagnosis Pruritus Unspecified pruritic disorder [facility] [place] [facility]* Diagnosis Acute cough documented in this encounter [facility] note* Diagnosis Onset Date Resolution Status Admit Date Celiac disease acute August 23, 2024 9:39am Coronary arteriosclerosis acute August 23, 2024 9:39am DM w/o complication type II acute August 23, 2024 9:39am Hypercholesteremia acute 2023 9:39am Hypertension acute August 232023 9:39am Body mass index (BMI) of 34. 0 to 34.9 in adult noneactive August 23, 2024 9:39am [facility] Work Phone: evaluation note* Diagnosis 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- Primary [facility] [place] [facility]* Diagnosis BPH associated with nocturia- Primary Hypertrophy of prostate with urinary obstruction and other lower urinary tract symptoms (LUTS) Urinary frequency Urgency of urination Slowing of urinary stream Impotence Impotence of organic origin [facility] [place] [facility]* Diagnosis Pruritus Unspecified pruritic disorder documented in this encounter [facility] note* Diagnosis Skin exam, screening for cancer- Primary Screening for malignant neoplasm of the skin Multiple benign nevi Benign neoplasm of skin, site unspecified Lentigines Other dyschromia Deleon angioma Nevus, non-neoplastic Seborrheic keratosis Other seborrheic keratosis History of nonmelanoma skin cancer Personal history of other malignant neoplasm of skin Actinic keratosis Neoplasm of unspecified behavior of bone, soft tissue, and skin documented in [facility] [place] [facility]* Diagnosis Onset Date Resolution Status Admit Date Coronary arteriosclerosis acute May 24, 2024 9:52am DM w/o complication type II acute May 24, 2024 9:52am Hypercholesteremia acute April 302023 9:52am Hypertension acute May 24 9:52am Body mass index (BMI) of 34. 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) [facility] [place] [facility]* Diagnosis Onset Date Resolution Status Admit Date Celiac disease acute December 222024 9:37am Coronary arteriosclerosis acute December 22, 2024 9:37am Crohn's disease acute November 302024 9:37am DM w/o complication type II acute December 22, 2024 9:37am Hypercholesteremia acute 2024 9:37am Hypertension acute November 9:37am [facility] Work Phone: evaluation note* Diagnosis Malignant melanoma of skin of trunk, 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, except scrotum [facility]* Diagnosis AK (actinic keratosis)- Primary Actinic keratosis Multiple benign nevi Benign neoplasm of skin, site unspecified Seborrheic keratosis Other seborrheic keratosis Lentigines Other dyschromia Deleon angioma Nevus, non-neoplastic History of nonmelanoma skin cancer Personal history of other malignant neoplasm of skin Personal history of malignant melanoma of skin Skin cancer screening Screening for malignant neoplasm of the skin [facility]* Diagnosis BPH with urinary obstruction- Primary Hypertrophy of prostate with urinary obstruction and other lower urinary tract symptoms (LUTS) [facility]* Diagnosis Neoplasm of unspecified behavior of bone, soft tissue, and skin- Primary [facility]* Diagnosis BPH associated with nocturia- Primary Hypertrophy of prostate with urinary obstruction and other lower urinary tract symptoms (LUTS) Urinary frequency [facility]* Diagnosis AK (actinic keratosis)- Primary Actinic keratosis [facility]* Diagnosis Onset Date Resolution Status Admit Date Coronary arteriosclerosis acute April 18, 2025 9:44am Crohn's disease acute April 18, 2025 9:44am DM w/o complication type II acute April 18, 2025 9:44am Hypercholesteremia acute April 182024 9:44am Hypertension acute April 18 9:44am Encounter for annual health examination noneactive April 18, 2025 9:44am [facility] Work Phone: evaluation note* Diagnosis Neoplasm of unspecified behavior of bone, soft tissue, and skin- Primary AK (actinic keratosis) Actinic keratosis Multiple benign nevi Benign neoplasm of skin, site unspecified Seborrheic keratosis Other seborrheic keratosis Lentigines Other dyschromia Deleon angioma Nevus, non-neoplastic Personal history of malignant melanoma of skin History of nonmelanoma skin cancer Personal history of other malignant neoplasm of skin Skin cancer screening Screening for malignant neoplasm of the skin documented [facility]No assessment [facility] Work [facility]: Evaluation note* Diagnosis Fever, unspecified fever cause- Primary URI, acute Acute upper respiratory infections of unspecified site Dyspnea, unspecified type Chest pain, unspecified type documented in this encounter [facility] [place] [facility]* Diagnosis Onset Date Resolution Status Admit Date Atrial fibrillation, new onset acute June 26, 2025 9:27am Fatigue acute June 26 9:27am Crohn disease chronic June 26, 2025 9:27am [facility] Work Phone: Evaluation note* Diagnosis Paroxysmal atrial fibrillation (HCC) Atrial fibrillation 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 [facility] [place] [facility]* Diagnosis 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 documented in this encounter [facility] [place] [facility]* Diagnosis AK (actinic keratosis)- Primary Actinic keratosis Multiple benign nevi Benign neoplasm of skin, site unspecified Seborrheic keratosis Other seborrheic keratosis Lentigines Other dyschromia Deleon angioma Nevus, non-neoplastic Personal history of malignant melanoma of skin History of nonmelanoma skin cancer Personal history of other malignant neoplasm of skin Skin cancer screening Screening for malignant neoplasm of the skin documented in this encounter [facility] [place] [facility]* Diagnosis Onset Date Resolution Status Admit Date Atrial fibrillation acute Septe 2024 1:12pm Coronary arteriosclerosis acute August 06, 2025 1:12pm DM w/o complication type II acute August 06, 2025 1:12pm Hypercholesteremia acute Septem ana maría 2024 1:12pm Hypertension acute July 1:12pm [facility] Work Phone: Hospital Discharge instructions Additional Instructions You can take Tylenol for your pain and apply heat to the area. Please follow-up with your PCP, stay well hydrated, return for any worsening of symptoms.[facility] Work Phone: Hospital Discharge instructionsAdditional Instructions Your testing here is normal and is rule out heart attacks or blood clots. There is no signs of an infection or pneumonia. I recommend you trial an [id number] allergy medicine like Claritin for your postnasal drip. Follow-up with your doctor.[facility] Work Phone: Hospital Discharge instructionsAdditional Instructions Thank you for trusting us with your care today! Your labs and images are consistent with new onset atrial fibrillation. Atrial fibrillation is an abnormal heart rhythm that can increase your risk for stroke. In order to decrease your risk of stroke we have started you on a anticoagulant (blood thinner). This will decrease the risk of stroke. To control your abnormal heart rhythm we have started on a new medicine called diltiazem or Cardizem. Please take as prescribed I spoke with Dr. Locke he recommended you follow-up with the [facility] in the next week. Recommended you continue taking your metoprolol in the morning and take the newly prescribed diltiazem or Cardizem at night. Please return to the emergency department if your symptoms change or worsen. Specifically develop chest pain, shortness of breath, if you lose consciousness or if you develop significant leg swelling. Eliquis is a blood thinner can increase risk of bleeding. If develop nosebleeds or any other bleeding including dark stools please report to the ED immediately. Please follow with your primary care physician for further outpatient evaluation and management.[facility] Work Phone: Reason for referral (narrative)* Diagnostic Procedure Only (Routine) - Authorized Specialty Diagnoses / Procedures Referred By Chapo steele Referred To Contact US IMAGING Diagnoses Scrotal skin lesion Procedures US SCROTUM AND CONTENTS US SCROTUM & CONTENTS Hortencia Gerard PA-C [address] [place] [address] [facility] [id number] Referral ID Status Reason Start Date Expiration Date Visits Requested Visits Authorized [id number] Authorized Auto-Generat ed Referral 07/17/2024 08/16/2025 1 1 [facility] for referral (narrative)No reason for referral information [facility] Work Phone: Summary Purpose Family History Relationship Condition Age at Onset Recorded Date/T presley Not Specified History of transfusion of whole blood Un known Malignant neoplasm of skin Unknown Disorder of liver Unknown Diabetes mellitus Unknown Cardiac disease Unknown Malignant melanoma Unknown Myocardial infarction Unknown Malignant neoplasm Unknown Hypertension Unknown Asthma Unknown Relationship Condition Age at Onset Recorded Date/T presley self Coronary artery disease Unknown Advance Directives Advance Directive Response Recorded Date/ Time Advance Directives Yes April 03, 2021 9:42am Living Will Yes April 11, 2021 1 0:31am Power of Drawer Liner Yes April 11, 2021 10:31am Documents on File Type Date Recorded 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 March 21, 2023 9:53am Advance Directives Yes April 03, 2021 9:42am Living Will Yes March 21, 2023 9:53am Power of Drawer Liner Yes March 21 9:53am Advance Directive Response Recorded Date/ Time Advance Directives Yes April 03, 2021 9:42am Living Will Yes March 21, 2023 9:53am Power of Drawer Liner Yes March 21 9:53am Advance Directive Response Recorded Date/ Time Advance Directives Yes April 03, 2021 8:42am Living Will Yes March 21, 2023 8:53am Power of Drawer Liner Yes March 21 8:53am Advance Directive Response Recorded Date/ Time Living Will Yes March 21, 2023 9:53am Do you have a Healthcare Power of Drawer Liner? Yes March 21, 2023 9:53am Living Will Yes October 29 1:50am Do you have a Healthcare Power of Drawer Liner? Yes October 29, 2024 1:50am Advance Directives Yes April 03, 2021 9:42am Advance Directive Response Recorded Date/ Time Health Care Proxy Yes April 18, 2025 11:36am Advance Directive Response Recorded Date/ Time Living Will Yes March 21, 2023 9:53am Do you have a Healthcare Power of Drawer Liner? Yes March 21, 2023 9:53am Advance Directives Yes April 03, 2021 9:42am Advance Directive Response Recorded Date/ Time Advance Directives Yes April 03, 2021 9:42am Advance Directive Response Recorded Date/ Time Do you have a Healthcare Power of Drawer Liner? Yes June 14, 2025 5:44pm Advance Directives Yes April 03, 2021 9:42am Advance Directive Response Recorded Date/ Time Do you have a Healthcare Power of Drawer Liner? Yes June 19, 2025 3:59pm Do you have a Healthcare Power of Drawer Liner? Yes June 14, 2025 5:44pm Advance Directives Yes April 03, 2021 9:42am Advance Directive Response Recorded Date/ Time Do you have a Healthcare Power of Drawer Liner? Yes June 19, 2025 3:59pm Do you have a Healthcare Power of Drawer Liner? Yes June 14, 2025 5:44pm Advance Directives on File Yes Augus t 2024 10:44am Living Will Yes July 23 10:44am Do you have a Healthcare Power of Drawer Liner? Yes July 23, 2025 10:44am Name of Medical Power of Drawer Liner Jolanta asencio July 23, 2025 10:44am Advance Directives Yes July 23, 2025 10:44am Chief Complaint and Reason for Visit Chief Complaint TYPE 2 DM 2020 PHASE III MAINTENANCE SELF-PAY TYPE 2 DM PHASE III MAINTENANCE SELF-PAY TYPE 2 DM PHASE III MAINTENANCE SELF-PAY TYPE 2 DM 10 m fu LEAD PROGRAMMER, DIABETES, NPP MAILED PHASE III MAINTENANCE SELF-PAY Reason for Visit Atherosclerotic hear t disease of [place] coronary artery without angina pectoris History of hypertension Presence of stent in coronary artery Hypertension Obesity Type 2 diabetes mellitus Chief Complaint TYPE 2 DM PHASE III MAINTENANCE SELF-PAY TYPE 2 DM PHASE III MAINTENANCE SELF-PAY TYPE 2 DM 10 m fu LEAD PROGRAMMER, DIABETES, NPP MAILED PHASE III MAINTENANCE SELF-PAY TYPE 2 DM PHASE III MAINTENANCE SELF-PAY Reason for Visit Atherosclerotic hear t disease of [place] coronary artery without angina pectoris History of hypertension Presence of stent in coronary artery Hypertension Obesity Type 2 diabetes mellitus Chief Complaint TYPE 2 DM PHASE III MAINTENANCE SELF-PAY TYPE 2 DM 10 m fu LEAD PROGRAMMER, DIABETES, NPP MAILED PHASE III MAINTENANCE SELF-PAY TYPE 2 DM PHASE III MAINTENANCE SELF-PAY PHASE III MAINTENANCE SELF-PAY Reason for Visit Atherosclerotic hear t disease of [place] coronary artery without angina pectoris History of hypertension Presence of stent in coronary artery Hypertension Obesity Type 2 diabetes mellitus Chief Complaint TYPE 2 DM 10 m fu LEAD PROGRAMMER, DIABETES, NPP MAILED PHASE III MAINTENANCE SELF-PAY TYPE 2 DM PHASE III MAINTENANCE SELF-PAY PHASE III MAINTENANCE SELF-PAY TYPE 2 DM PHASE III MAINTENANCE SELF-PAY Reason for Visit Atherosclerotic hear t disease of [place] coronary artery without angina pectoris History of hypertension Presence of stent in coronary artery Hypertension Obesity Type 2 diabetes mellitus Chief Complaint LEAD PROGRAMMER, DIABETES, NPP MA ILED PHASE III MAINTENANCE SELF-PAY TYPE 2 DM PHASE III MAINTENANCE SELF-PAY PHASE III MAINTENANCE SELF-PAY TYPE 2 DM PHASE III MAINTENANCE SELF-PAY 3 M FU PHASE III MAINTENANCE SELF-PAY Reason for Visit Hypertension Obesity Type 2 diabetes mellitus Hypertension Obesity Type 2 diabetes mellitus Chief Complaint TYPE 2 DM PHASE III MAINTENANCE SELF-PAY PHASE III MAINTENANCE SELF-PAY TYPE 2 DM PHASE III MAINTENANCE SELF-PAY 3 M FU PHASE III MAINTENANCE SELF-PAY Reason for Visit Hypertension Obesity Type 2 diabetes mellitus Chief Complaint PHASE III [place]IQUI ARSHAD SELF-PAY TYPE 2 DM PHASE III MAINTENANCE SELF-PAY 3 M FU PHASE III MAINTENANCE SELF-PAY PHASE III MAINTENANCE SELF-PAY Reason for Visit Hypertension Obesity Type 2 diabetes mellitus Chief Complaint TYPE 2 DM PHASE III MAINTENANCE SELF-PAY 3 M FU PHASE III MAINTENANCE SELF-PAY PHASE III MAINTENANCE SELF-PAY 6 M FU PHASE III MAINTENANCE SELF-PAY Reason for Visit Hypertension Obesity Type 2 diabetes mellitus Essential hypertension Atherosclerotic heart disease of [place] coronary artery without angina pectoris Presence of stent in coronary artery Chief Complaint PHASE III MA INTENANCE SELF-PAY 3 M FU PHASE III MAINTENANCE SELF-PAY PHASE III MAINTENANCE SELF-PAY 6 M FU PHASE III MAINTENANCE SELF-PAY Consult E ORDER PHASE III MAINTENANCE SELF-PAY Reason for Visit Hypertension Obesity Type 2 diabetes mellitus Essential hypertension Atherosclerotic heart disease of [place] coronary artery without angina pectoris Presence of stent in coronary artery Diarrhea Chief Complaint 3 M FU PHASE III MAINTENANCE SELF-PAY PHASE III MAINTENANCE SELF-PAY 6 M FU PHASE III MAINTENANCE SELF-PAY Consult E ORDER PHASE III MAINTENANCE SELF-PAY Reason for Visit Hypertension Obesity Type 2 diabetes mellitus Essential hypertension Atherosclerotic heart disease of [place] coronary artery without angina pectoris Presence of stent in coronary artery Diarrhea Chief Complaint PHASE III MA INTENANCE SELF-PAY 6 M FU PHASE III MAINTENANCE SELF-PAY Consult E ORDER PHASE III MAINTENANCE SELF-PAY PHASE III MAINTENANCE SELF-PAY Reason for Visit Essential hypertensi on Atherosclerotic heart disease of [place] coronary artery without angina pectoris Presence of stent in coronary artery Diarrhea Chief Complaint 6 M FU PHASE III MAINTENANCE SELF-PAY Consult E ORDER PHASE III MAINTENANCE SELF-PAY PHASE III MAINTENANCE SELF-PAY PHASE III MAINTENANCE SELF-PAY Reason for Visit Essential hypertensi on Atherosclerotic heart disease of [place] coronary artery without angina pectoris Presence of stent in coronary artery Diarrhea Chief Complaint PHASE III MA INTENANCE SELF-PAY Consult E ORDER PHASE III MAINTENANCE SELF-PAY PHASE III MAINTENANCE SELF-PAY PHASE III MAINTENANCE SELF-PAY 3 MO FU E ORDER 6 M FU 2022 PH III Maintenance - Self-Pay Reason for Visit Diarrhea Crohn disease Hyperlipidemia Obesity Type 2 diabetes mellitus Chief Complaint Consult E ORDER 2022-CR PHASE III MAINTENANCE SELF-PAY PHASE III MAINTENANCE SELF-PAY PHASE III MAINTENANCE SELF-PAY 3 MO FU E ORDER 6 M FU 2022 PH III Maintenance - Self-Pay Reason for Visit Diarrhea Crohn disease Hyperlipidemia Obesity Type 2 diabetes mellitus Chief Complaint Consult E ORDER CR PHASE III MAINTENANCE SELF-PAY PHASE III MAINTENANCE SELF-PAY PHASE III MAINTENANCE SELF-PAY 3 MO FU E ORDER 6 M FU 2022 PH III Maintenance - Self-Pay *ENTEROGRAPHY* CROHN'S DISEASE 2022 PH III Maintenance - Self-Pay Reason for Visit Diarrhea Crohn disease Hyperlipidemia Obesity Type 2 diabetes mellitus Chief Complaint PHASE III MA INTENANCE SELF-PAY 3 MO FU E ORDER 6 M FU 2022 PH III Maintenance - Self-Pay *ENTEROGRAPHY* CROHN'S DISEASE 2022 PH III Maintenance - Self-Pay 6 M FU 2022 PH III Maintenance - Self-Pay Reason for Visit Crohn disease Hyperlipidemia Obesity Type 2 diabetes mellitus Essential hypertension Presence of stent in coronary artery Chief Complaint PHASE III MA INTENANCE SELF-PAY 3 MO FU E ORDER 6 M FU 2022 PH III Maintenance - Self-Pay *ENTEROGRAPHY* CROHN'S DISEASE 2022 PH III Maintenance - Self-Pay 6 M FU 2022 PH III Maintenance - Self-Pay 2022 PH III Maintenance - Self-Pay left thigh pain Reason for Visit Crohn disease Hyperlipidemia Obesity Type 2 diabetes mellitus Essential hypertension Presence of stent in coronary artery Chief Complaint *ENTEROGRAPHY* CROHN 'S DISEASE 2022 PH III Maintenance - Self-Pay 6 M FU 2022 PH III Maintenance - Self-Pay left thigh pain 3 M FU 2022 PH III Maintenance - Self-Pay 2022 PH III Maintenance - Self-Pay Reason for Visit Essential hypertensi on Presence of stent in coronary artery Crohn disease Diarrhea Chief Complaint 6 M FU 2022 PH III Maintenance - Self-Pay left thigh pain 3 M FU 2022 PH III Maintenance - Self-Pay 2022 PH III Maintenance - Self-Pay 2022 PH III Maintenance - Self-Pay Reason for Visit Essential hypertensi on Presence of stent in coronary artery Crohn disease Diarrhea Chief Complaint Follow Up Reason for Visit BMI 30.0-30.9,adult Coronary arteriosclerosis DM w/o complication type II Drug-induced skin rash Skin Abnormalities Benign essential hypertension Chief Complaint 2022 PH III Maintena nce - Self-Pay 2022 PH III Maintenance - Self-Pay 6 M FU 2022 PH III Maintenance - Self-Pay 4 mo fu 2022 PH III Maintenance - Self-Pay Reason for Visit Essential hypertensi on Hyperlipidemia Obesity Type 2 diabetes mellitus Crohn disease Diarrhea Chief Complaint 2022 PH III Maintena nce - Self-Pay 6 M FU 2022 PH III Maintenance - Self-Pay 4 mo fu 2022 PH III Maintenance - Self-Pay 2022 PH III Maintenance - Self-Pay Reason for Visit Essential hypertensi on Hyperlipidemia Obesity Type 2 diabetes mellitus Crohn disease Diarrhea Chief Complaint Blood pressure check Follow Up Follow Up Reason for Visit Benign essential hyp ertension Coronary arteriosclerosis DM w/o complication type II Hypercholesteremia Hypertension Coronary arteriosclerosis DM w/o complication type II Drug-induced skin rash Hypercholesteremia Hypertension Chief Complaint 6 M FU 2022 PH III Maintenance - Self-Pay 4 mo fu 2022 PH III Maintenance - Self-Pay 2022 PH III Maintenance - Self-Pay 2022 PH III Maintenance - Self-Pay Reason for Visit Essential hypertensi on Hyperlipidemia Obesity Type 2 diabetes mellitus Crohn disease Diarrhea Chief Complaint Follow Up Follow Up Follow Up Reason for Visit Coronary arterioscle rosis DM w/o complication type II Hypercholesteremia Hypertension Coronary arteriosclerosis DM w/o complication type II Drug-induced skin rash Hypercholesteremia Hypertension Coronary arteriosclerosis DM w/o complication type II Hypercholesteremia Hypertension Chief Complaint 4 mo fu 2022 PH III Maintenance - Self-Pay 2022 PH III Maintenance - Self-Pay 2022 PH III Maintenance - Self-Pay 6 M FU 2022 PH III Maintenance - Self-Pay Reason for Visit Crohn disease Diarrhea Fatigue Essential hypertension Presence of stent in coronary artery Chief Complaint 2022 PH III Maintena nce - Self-Pay 2022 PH III Maintenance - Self-Pay 6 M FU 2022 PH III Maintenance - Self-Pay 2022 PH III Maintenance - Self-Pay Reason for Visit Fatigue Essential hypertension Presence of stent in coronary artery Chief Complaint 2022 PH III Maintena nce - Self-Pay 6 M FU 2022 PH III Maintenance - Self-Pay 2022 PH III Maintenance - Self-Pay 2023 PH3 MAINTENANCE SELF PAY Reason for Visit Fatigue Essential hypertension Presence of stent in coronary artery Chief Complaint Wellness Visit - [place] lt Reason for Visit Celiac disease Coronary arteriosclerosis DM w/o complication type II Hypercholesteremia Hypertension Encounter for Health Maintenance Examination in Adult Chief Complaint 6 M FU 2022 PH III Maintenance - Self-Pay 2022 PH III Maintenance - Self-Pay 2023 PH3 MAINTENANCE SELF PAY 6 MO FU 6 M FU 2023 PH3 MAINTENANCE SELF PAY Reason for Visit Fatigue Essential hypertension Presence of stent in coronary artery Crohn disease Diarrhea Essential hypertension Obesity Type 2 diabetes mellitus Chief Complaint 2022 PH III Maintena nce - Self-Pay 2023 PH3 MAINTENANCE SELF PAY 6 MO FU 6 M FU 2023 PH3 MAINTENANCE SELF PAY 2023 PH3 MAINTENANCE SELF PAY Reason for Visit Crohn disease Diarrhea Essential hypertension Obesity Type 2 diabetes mellitus Chief Complaint 2023 PH3 MAINTENANCE SELF PAY 6 MO FU 6 M FU 2023 PH3 MAINTENANCE SELF PAY 2023 PH3 MAINTENANCE SELF PAY 2023 PH3 MAINTENANCE SELF PAY Reason for Visit Crohn disease Diarrhea Essential hypertension Obesity Type 2 diabetes mellitus Chief Complaint Admit Date Follow Up August 23, 2024 9:39am Reason for Visit Admit Date Celiac disease August 23, 2024 9:39am Coronary arteriosclerosis July 9:39am DM w/o complication type II August 232023 9:39am Hypercholesteremia August 23, 2024 9:39am Hypertension August 23, 2024 9:39am Body mass index (BMI) of 34.0 to 34.9 in adult August 23, 2024 9:39am Chief Complaint Admit Date Follow Up May 24, 2024 9:52 am Reason for Visit Admit Date Coronary arteriosclerosis May 24 9:52am DM w/o complication type II May 24, 024 9:52am Hypercholesteremia May 24, 2024 9:52 am Hypertension May 24, 2024 9:52 am Body mass index (BMI) of 34.0 to 34.9 in adult May 24, 2024 9:52am Chief Complaint Admit Date Follow Up December 22, 2024 9 :37am Reason for Visit Admit Date Celiac disease December 22, 2024 9 :37am Coronary arteriosclerosis December 22, 2024 9:37am Crohn's disease December 22, 2024 9 :37am DM w/o complication type II November 9:37am Hypercholesteremia December 22, 2024 9 :37am Hypertension December 22, 2024 9 :37am Chief Complaint Admit Date 2023 PH3 MAINTENANCE SELF PAY October [id number] 8:00am 1 Y FU December 26, 2024 9 :45am 2024 PH3 maintenance-self pay December 282024 8:00am CAD ASHD January 02, 2025 6 :39am 1 Y FU January 15, 2025 8:09am 6 M FU January 17, 2025 9:26am 2024 PH3 maintenance-self pay December 312024 8:00am 2024 PH3 maintenance-self pay January 8:00am Reason for Visit Admit Date Essential hypertension December 26 9:45am Presence of stent in coronary artery Niraj uary 2024 9:45am Crohn disease January 15, 2025 8:09am Diarrhea January 15, 2025 8:09am Hyperlipidemia January 17, 2025 9:26am Hypertension January 17, 2025 9:26am Obesity January 17, 2025 9:26am Type 2 diabetes mellitus January 17, 2025 9:26am Chief Complaint Admit Date Medicare Wellness - Subsequent April 18, 2025 9:44am Reason for Visit Admit Date Coronary arteriosclerosis April 18, 2025 9:44am Crohn's disease April 18, 2025 9:44a m DM w/o complication type II April 18 9:44am Hypercholesteremia April 18, 2025 9:44a m Hypertension April 18, 2025 9:44a m Encounter for annual health examination April 18, 2025 9:44am Chief Complaint Admit Date CAD ASHD January 02, 2025 6 :39am 1 Y FU January 15, 2025 8:09am 6 M FU January 17, 2025 9:26am 2024 PH3 maintenance-self pay December 312024 8:00am 2024 PH3 maintenance-self pay January 8:00am 2024 PH3 maintenance-self pay February 8:00am 2024 PH3 maintenance-self pay April 26, 2025 8:00am Reason for Visit Admit Date Crohn disease January 15, 2025 8:09am Diarrhea January 15, 2025 8:09am Hyperlipidemia January 17, 2025 9:26am Hypertension January 17, 2025 9:26am Obesity January 17, 2025 9:26am Type 2 diabetes mellitus January 17, 2025 9:26am Chief Complaint Admit Date 2024 PH3 maintenance-self pay January 8:00am 2024 PH3 maintenance-self pay February 8:00am 2024 PH3 maintenance-self pay April 26, 2025 8:00am 2024 PH3 maintenance-self pay May 24, 2025 8:00am Chief Complaint Admit Date 2024 PH3 maintenance-self pay January 8:00am 2024 PH3 maintenance-self pay February 8:00am 2024 PH3 maintenance-self pay April 26, 2025 8:00am 2024 PH3 maintenance-self pay May 24, 2025 8:00am 2024 PH3 maintenance-self pay June 14, 2025 8:00am CHEST PAIN June 14, 2025 4:47 pm Chief Complaint Admit Date 2024 PH3 maintenance-self pay January 8:00am 2024 PH3 maintenance-self pay February 8:00am 2024 PH3 maintenance-self pay April 26, 2025 8:00am 2024 PH3 maintenance-self pay May 24, 2025 8:00am CHEST PAIN June 14, 2025 4:47 pm 2024 PH3 maintenance-self pay June 19, 2025 8:00am PALPITATIONS June 19, 2025 3:46 pm Chief Complaint Admit Date 2024 PH3 maintenance-self pay February 8:00am 2024 PH3 maintenance-self pay April 26, 2025 8:00am 2024 PH3 maintenance-self pay May 24, 2025 8:00am CHEST PAIN June 14, 2025 4:47 pm 2024 PH3 maintenance-self pay June 19, 2025 8:00am PALPITATIONS June 19, 2025 3:46 pm 6 M FU June 26, 2025 9:27 am Reason for Visit Admit Date Atrial fibrillation, new onset May 9:27am Fatigue June 26, 2025 9:27 am Crohn disease June 26, 2025 9:27 am Chief Complaint Admit Date 2024 PH3 maintenance-self pay February 8:00am 2024 PH3 maintenance-self pay April 26, 2025 8:00am 2024 PH3 maintenance-self pay May 24, 2025 8:00am CHEST PAIN June 14, 2025 4:47 pm PALPITATIONS June 19, 2025 3:46 pm 6 M FU June 26, 2025 9:27 am INT LAB ORDERS June 26, 2025 10:3 3am 2024 PH3 maintenance-self pay June 28, 2025 8:00am [facility] 7/22 AFIB June 28, 2025 1:38 pm Reason for Visit Admit Date Fatigue June 26, 2025 9:27 am Crohn disease June 26, 2025 9:27 am Atrial fibrillation, new onset May 9:27am Atrial fibrillation June 28, 2025 1:38 pm Essential hypertension June 28, 2025 1 :38pm Presence of stent in coronary artery Agustin 2024 1:38pm Chief Complaint Admit Date 2024 PH3 maintenance-self pay February 8:00am 2024 PH3 maintenance-self pay April 26, 2025 8:00am 2024 PH3 maintenance-self pay May 24, 2025 8:00am CHEST PAIN June 14, 2025 4:47 pm PALPITATIONS June 19, 2025 3:46 pm 6 M FU June 26, 2025 9:27 am INT LAB ORDERS June 26, 2025 10:3 3am 2024 PH3 maintenance-self pay June 28, 2025 8:00am W[facility] 22 AFIB June 28, 2025 1:38 pm 2024 PH3 maintenance-self pay June 9:48am Chief Complaint Admit Date 2024 PH3 maintenance-self pay February 8:00am 2024 PH3 maintenance-self pay April 26, 2025 8:00am 2024 PH3 maintenance-self pay May 24, 2025 8:00am CHEST PAIN June 14, 2025 4:47 pm PALPITATIONS June 19, 2025 3:46 pm 6 M FU June 26, 2025 9:27 am INT LAB ORDERS June 26, 2025 10:3 3am 2024 PH3 maintenance-self pay June 28, 2025 8:00am WCH 7/22 AFIB June 28, 2025 1:38 pm 2024 PH3 maintenance-self pay June 9:48am E-ORDER July 05, 2025 9:2 0am Chief Complaint Admit Date 2024 PH3 maintenance-self pay February 8:00am 2024 PH3 maintenance-self pay April 26, 2025 8:00am 2024 PH3 maintenance-self pay May 24, 2025 8:00am CHEST PAIN June 14, 2025 4:47 pm PALPITATIONS June 19, 2025 3:46 pm 6 M FU June 26, 2025 9:27 am INT LAB ORDERS June 26, 2025 10:3 3am 2024 PH3 maintenance-self pay June 28, 2025 8:00am W[facility] 7/22 AFIB June 28, 2025 1:38 pm 2024 PH3 maintenance-self pay June 9:48am E-ORDER July 05, 2025 9:2 0am AFIB July 23, 2025 10 :23am Atrial fibrillation July 23, 2025 12 :37pm Atrial fibrillation July 23, 2025 12 :49pm Chief Complaint Admit Date 2024 PH3 maintenance-self pay April 26, 2025 8:00am 2024 PH3 maintenance-self pay May 24, 2025 8:00am CHEST PAIN June 14, 2025 4:47 pm PALPITATIONS June 19, 2025 3:46 pm 6 M FU June 26, 2025 9:27 am INT LAB ORDERS June 26, 2025 10:3 3am 2024 PH3 maintenance-self pay June 28, 2025 8:00am [facility] /22 AFIB June 28, 2025 1:38 pm 2024 PH3 maintenance-self pay June 9:48am E-ORDER July 05, 2025 9:2 0am AFIB July 23, 2025 10 :23am Atrial fibrillation July 23, 2025 12 :37pm Atrial fibrillation July 23, 2025 12 :49pm Chief Complaint Admit Date 2024 PH3 maintenance-self pay April 26, 2025 8:00am 2024 PH3 maintenance-self pay May 24, 2025 8:00am CHEST PAIN June 14, 2025 4:47 pm PALPITATIONS June 19, 2025 3:46 pm 6 M FU June 26, 2025 9:27 am INT LAB ORDERS June 26, 2025 10:3 3am 2024 PH3 maintenance-self pay June 28, 2025 8:00am [facility] 06/19 AFIB June 28, 2025 1:38 pm 2024 PH3 maintenance-self pay June 9:48am E-ORDER July 05, 2025 9:2 0am AFIB July 23, 2025 10 :23am Atrial fibrillation July 23, 2025 12 :37pm Atrial fibrillation July 23, 2025 12 :49pm 2024 PH3 maintenance-self pay July 31, 2025 9:45am 1 W DCCV August 02, 2025 1:09pm Chief Complaint Admit Date Follow Up August 06, 2025 1:12pm Reason for Visit Admit Date Atrial fibrillation August 06, 2025 1:12pm Coronary arteriosclerosis August 06, 2025 1:12pm DM w/o complication type II July 1:12pm Hypercholesteremia August 06, 2025 1:12pm Hypertension August 06, 2025 1:12pm Reason for Referral Specialty Diagnoses / Procedures Referred By Contac t Referred To Contact Diagnoses AK (actinic keratosis) José Sheikh, BUYING AGENT.CENTRIFUGAL CASTING MACHINE TENDER [address] [place] [address] Referral ID Status Reason Start Date Expiration Date V isits Requested Visits Authorized [id number] Authorized 11/29/2021 01/10/2023 1 1 Specialty Diagnoses / Procedures Referred By Contac t Referred To Contact Dermatology Diagnoses 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 Procedures MO[facility] OFFICE/OUTPATIENT [facility] MDM 60-74 MINUTES José Sheikh, BUYING AGENT.CENTRIFUGAL CASTING MACHINE TENDER [address] [place] [address] Referral ID Status Reason Start Date Expiration Date V isits Requested Visits Authorized [id number] Closed PCP Requested Referral 09/21/2023 09/20/2024 1 1 Additional Source Comments (unrecognized sect ion and content) No Status Records FoundNo Status Records FoundNo Status Records FoundNo Status Records FoundNo Status Records Found INFORMATION SOURCE (unrecogn ized section and content) DATE CREATED AUTHOR 05/19/2018 [facility] DATE CREATED AUTHOR AUTHOR'S ORGANIZ ATION 06/30/2019 [facility] DATE CREATED AUTHOR AUTHOR'S ORGANIZ ATION 01/29/2024 [facility] [place] DATE CREATED AUTHOR AUTHOR'S ORGANIZ ATION 08/04/2025 [facility] DATE CREATED AUTHOR AUTHOR'S ORGANIZ ATION 08/05/2025 [facility] Goals (unrecognized section and content) Goals may be documented in a n alternate sectionGoals may be documented in an alternate sectionGoals may be documented in an alternate sectionGoals may be documented in an alternate sectionGoals may be documented in an alternate sectionGoals may be documented in an alternate sectionGoals may be documented in an alternate sectionGoals may be documented in an alternate sectionGoals may be documented in an alternate sectionGoals may be documented in an alternate sectionGoals may be documented in an alternate sectionGoals may be documented in an alternate sectionGoals may be documented in an alternate sectionGoals may be documented in an alternate sectionGoals may be documented in an alternate sectionGoals may be documented in an alternate sectionGoals may be documented in an alternate sectionGoals may be documented in an alternate sectionGoals may be documented in an alternate sectionGoals may be documented in an alternate sectionGoals may be documented in an alternate sectionGoals may be documented in an alternate sectionGoals may be documented in an alternate sectionGoals may be documented in an alternate sectionGoals may be documented in an alternate sectionGoals may be documented in an alternate sectionGoals may be documented in an alternate sectionGoals may be documented in an alternate sectionGoals may be documented in an alternate sectionGoals may be documented in an alternate sectionGoals may be documented in an alternate sectionGoals may be documented in an alternate sectionGoals may be documented in an alternate sectionGoals may be documented in an alternate sectionGoals may be documented in an alternate sectionGoals may be documented in an alternate sectionGoals may be documented in an alternate sectionGoals may be documented in an alternate sectionGoals may be documented in an alternate sectionGoals may be documented in an alternate sectionGoals may be documented in an alternate sectionGoals may be documented in an alternate sectionGoals may be documented in an alternate sectionGoals may be documented in an alternate sectionGoals may be documented in an alternate sectionGoals may be documented in an alternate sectionGoals may be documented in an alternate sectionGoals may be documented in an alternate sectionGoals may be documented in an alternate sectionGoals may be documented in an alternate sectionGoals may be documented in an alternate sectionGoals may be documented in an alternate sectionGoals may be documented in an alternate sectionGoals may be documented in an alternate section Source Comments (unrecognize d section and content) In the event this informatio n is protected by the Federal Confidentiality of Alcohol and Drug Abuse Patient Records regulations: The Federal rules restrict any use of the information to criminally investigate or prosecute any alcohol or drug abuse patient.[facility] HospitalIn the event this information is protected by the Federal Confidentiality of Alcohol and Drug Abuse Patient Records regulations: The Federal rules restrict any use of the information to criminally investigate or prosecute any alcohol or drug abuse patient.[facility] HospitalIn the event this information is protected by the Federal Confidentiality of Alcohol and Drug Abuse Patient Records regulations: The Federal rules restrict any use of the information to criminally investigate or prosecute any alcohol or drug abuse patient.[facility] HospitalIn the event this information is protected by the Federal Confidentiality of Alcohol and Drug Abuse Patient Records regulations: The Federal rules restrict any use of the information to criminally investigate or prosecute any alcohol or drug abuse patient.[facility] HospitalIn the event this information is protected by the Federal Confidentiality of Alcohol and Drug Abuse Patient Records regulations: The Federal rules restrict any use of the information to criminally investigate or prosecute any alcohol or drug abuse patient.[facility] HospitalIn the event this information is protected by the Federal Confidentiality of Alcohol and Drug Abuse Patient Records regulations: The Federal rules restrict any use of the information to criminally investigate or prosecute any alcohol or drug abuse patient.[facility] HospitalIn the event this information is protected by the Federal Confidentiality of Alcohol and Drug Abuse Patient Records regulations: The Federal rules restrict any use of the information to criminally investigate or prosecute any alcohol or drug abuse patient.[facility] HospitalIn the event this information is protected by the Federal Confidentiality of Alcohol and Drug Abuse Patient Records regulations: The Federal rules restrict any use of the information to criminally investigate or prosecute any alcohol or drug abuse patient.[facility] HospitalIn the event this information is protected by the Federal Confidentiality of Alcohol and Drug Abuse Patient Records regulations: The Federal rules restrict any use of the information to criminally investigate or prosecute any alcohol or drug abuse patient.[facility] HospitalIn the event this information is protected by the Federal Confidentiality of Alcohol and Drug Abuse Patient Records regulations: The Federal rules restrict any use of the information to criminally investigate or prosecute any alcohol or drug abuse patient.[facility] HospitalIn the event this information is protected by the Federal Confidentiality of Alcohol and Drug Abuse Patient Records regulations: The Federal rules restrict any use of the information to criminally investigate or prosecute any alcohol or drug abuse patient.[facility] HospitalIn the event this information is protected by the Federal Confidentiality of Alcohol and Drug Abuse Patient Records regulations: The Federal rules restrict any use of the information to criminally investigate or prosecute any alcohol or drug abuse patient.[facility] HospitalIn the event this information is protected by the Federal Confidentiality of Alcohol and Drug Abuse Patient Records regulations: The Federal rules restrict any use of the information to criminally investigate or prosecute any alcohol or drug abuse patient.[facility] HospitalIn the event this information is protected by the Federal Confidentiality of Alcohol and Drug Abuse Patient Records regulations: The Federal rules restrict any use of the information to criminally investigate or prosecute any alcohol or drug abuse patient.[facility] HospitalIn the event this information is protected by the Federal Confidentiality of Alcohol and Drug Abuse Patient Records regulations: The Federal rules restrict any use of the information to criminally investigate or prosecute any alcohol or drug abuse patient.[facility] HospitalIn the event this information is protected by the Federal Confidentiality of Alcohol and Drug Abuse Patient Records regulations: The Federal rules restrict any use of the information to criminally investigate or prosecute any alcohol or drug abuse patient.[facility] HospitalIn the event this information is protected by the Federal Confidentiality of Alcohol and Drug Abuse Patient Records regulations: The Federal rules restrict any use of the information to criminally investigate or prosecute any alcohol or drug abuse patient.[facility] HospitalIn the event this information is protected by the Federal Confidentiality of Alcohol and Drug Abuse Patient Records regulations: The Federal rules restrict any use of the information to criminally investigate or prosecute any alcohol or drug abuse patient.[facility] HospitalIn the event this information is protected by the Federal Confidentiality of Alcohol and Drug Abuse Patient Records regulations: The Federal rules restrict any use of the information to criminally investigate or prosecute any alcohol or drug abuse patient.[facility] HospitalIn the event this information is protected by the Federal Confidentiality of Alcohol and Drug Abuse Patient Records regulations: The Federal rules restrict any use of the information to criminally investigate or prosecute any alcohol or drug abuse patient.[facility] HospitalIn the event this information is protected by the Federal Confidentiality of Alcohol and Drug Abuse Patient Records regulations: The Federal rules restrict any use of the information to criminally investigate or prosecute any alcohol or drug abuse patient.[facility] HospitalIn the event this information is protected by the Federal Confidentiality of Alcohol and Drug Abuse Patient Records regulations: The Federal rules restrict any use of the information to criminally investigate or prosecute any alcohol or drug abuse patient.[facility] HospitalIn the event this information is protected by the Federal Confidentiality of Alcohol and Drug Abuse Patient Records regulations: The Federal rules restrict any use of the information to criminally investigate or prosecute any alcohol or drug abuse patient.[facility] HospitalIn the event this information is protected by the Federal Confidentiality of Alcohol and Drug Abuse Patient Records regulations: The Federal rules restrict any use of the information to criminally investigate or prosecute any alcohol or drug abuse patient.[facility] HospitalIn the event this information is protected by the Federal Confidentiality of Alcohol and Drug Abuse Patient Records regulations: The Federal rules restrict any use of the information to criminally investigate or prosecute any alcohol or drug abuse patient.[facility] HospitalIn the event this information is protected by the Federal Confidentiality of Alcohol and Drug Abuse Patient Records regulations: The Federal rules restrict any use of the information to criminally investigate or prosecute any alcohol or drug abuse patient.[facility] HospitalIn the event this information is protected by the Federal Confidentiality of Alcohol and Drug Abuse Patient Records regulations: The Federal rules restrict any use of the information to criminally investigate or prosecute any alcohol or drug abuse patient.[facility] HospitalIn the event this information is protected by the Federal Confidentiality of Alcohol and Drug Abuse Patient Records regulations: The Federal rules restrict any use of the information to criminally investigate or prosecute any alcohol or drug abuse patient.[facility] HospitalIn the event this information is protected by the Federal Confidentiality of Alcohol and Drug Abuse Patient Records regulations: The Federal rules restrict any use of the information to criminally investigate or prosecute any alcohol or drug abuse patient.[facility] HospitalIn the event this information is protected by the Federal Confidentiality of Alcohol and Drug Abuse Patient Records regulations: The Federal rules restrict any use of the information to criminally investigate or prosecute any alcohol or drug abuse patient.[facility] HospitalIn the event this information is protected by the Federal Confidentiality of Alcohol and Drug Abuse Patient Records regulations: The Federal rules restrict any use of the information to criminally investigate or prosecute any alcohol or drug abuse patient.[facility] HospitalIn the event this information is protected by the Federal Confidentiality of Alcohol and Drug Abuse Patient Records regulations: The Federal rules restrict any use of the information to criminally investigate or prosecute any alcohol or drug abuse patient.[facility] HospitalIn the event this information is protected by the Federal Confidentiality of Alcohol and Drug Abuse Patient Records regulations: The Federal rules restrict any use of the information to criminally investigate or prosecute any alcohol or drug abuse patient.[facility] HospitalIn the event this information is protected by the Federal Confidentiality of Alcohol and Drug Abuse Patient Records regulations: The Federal rules restrict any use of the information to criminally investigate or prosecute any alcohol or drug abuse patient.[facility] HospitalIn the event this information is protected by the Federal Confidentiality of Alcohol and Drug Abuse Patient Records regulations: The Federal rules restrict any use of the information to criminally investigate or prosecute any alcohol or drug abuse patient.[facility] HospitalIn the event this information is protected by the Federal Confidentiality of Alcohol and Drug Abuse Patient Records regulations: The Federal rules restrict any use of the information to criminally investigate or prosecute any alcohol or drug abuse patient.[facility] HospitalIn the event this information is protected by the Federal Confidentiality of Alcohol and Drug Abuse Patient Records regulations: The Federal rules restrict any use of the information to criminally investigate or prosecute any alcohol or drug abuse patient.[facility] HospitalIn the event this information is protected by the Federal Confidentiality of Alcohol and Drug Abuse Patient Records regulations: The Federal rules restrict any use of the information to criminally investigate or prosecute any alcohol or drug abuse patient.[facility] HospitalIn the event this information is protected by the Federal Confidentiality of Alcohol and Drug Abuse Patient Records regulations: The Federal rules restrict any use of the information to criminally investigate or prosecute any alcohol or drug abuse patient.[facility] HospitalIn the event this information is protected by the Federal Confidentiality of Alcohol and Drug Abuse Patient Records regulations: The Federal rules restrict any use of the information to criminally investigate or prosecute any alcohol or drug abuse patient.[facility] HospitalIn the event this information is protected by the Federal Confidentiality of Alcohol and Drug Abuse Patient Records regulations: The Federal rules restrict any use of the information to criminally investigate or prosecute any alcohol or drug abuse patient.[facility] HospitalIn the event this information is protected by the Federal Confidentiality of Alcohol and Drug Abuse Patient Records regulations: The Federal rules restrict any use of the information to criminally investigate or prosecute any alcohol or drug abuse patient.[facility] HospitalIn the event this information is protected by the Federal Confidentiality of Alcohol and Drug Abuse Patient Records regulations: The Federal rules restrict any use of the information to criminally investigate or prosecute any alcohol or drug abuse patient.[facility] HospitalIn the event this information is protected by the Federal Confidentiality of Alcohol and Drug Abuse Patient Records regulations: The Federal rules restrict any use of the information to criminally investigate or prosecute any alcohol or drug abuse patient.[facility] HospitalIn the event this information is protected by the Federal Confidentiality of Alcohol and Drug Abuse Patient Records regulations: The Federal rules restrict any use of the information to criminally investigate or prosecute any alcohol or drug abuse patient.[facility] HospitalIn the event this information is protected by the Federal Confidentiality of Alcohol and Drug Abuse Patient Records regulations: The Federal rules restrict any use of the information to criminally investigate or prosecute any alcohol or drug abuse patient.[facility] HospitalIn the event this information is protected by the Federal Confidentiality of Alcohol and Drug Abuse Patient Records regulations: The Federal rules restrict any use of the information to criminally investigate or prosecute any alcohol or drug abuse patient.[facility] HospitalIn the event this information is protected by the Federal Confidentiality of Alcohol and Drug Abuse Patient Records regulations: The Federal rules restrict any use of the information to criminally investigate or prosecute any alcohol or drug abuse patient.[facility] HospitalIn the event this information is protected by the Federal Confidentiality of Alcohol and Drug Abuse Patient Records regulations: The Federal rules restrict any use of the information to criminally investigate or prosecute any alcohol or drug abuse patient.[facility] HospitalIn the event this information is protected by the Federal Confidentiality of Alcohol and Drug Abuse Patient Records regulations: The Federal rules restrict any use of the information to criminally investigate or prosecute any alcohol or drug abuse patient.[facility] HospitalIn the event this information is protected by the Federal Confidentiality of Alcohol and Drug Abuse Patient Records regulations: The Federal rules restrict any use of the information to criminally investigate or prosecute any alcohol or drug abuse patient.[facility] HospitalIn the event this information is protected by the Federal Confidentiality of Alcohol and Drug Abuse Patient Records regulations: The Federal rules restrict any use of the information to criminally investigate or prosecute any alcohol or drug abuse patient.[facility] HospitalIn the event this information is protected by the Federal Confidentiality of Alcohol and Drug Abuse Patient Records regulations: The Federal rules restrict any use of the information to criminally investigate or prosecute any alcohol or drug abuse patient.[facility] Reason for Visit (unrecogniz ed section and content) Reason Comments Full Body Skin Check Reason Comments LESION, SKIN Follow-up Reason Comments Results Reason Comments Actinic Keratosis Follow up Reason Comments LESION, SKIN Reason Comments Derm Problem Breaking out back ar ms and legs x 5 weeks Reason Comments Patient Question Reason Comments Rash Reason Comments Consult Specialty Diagnoses / Procedures Referred By Contac t Referred To Contact Dermatology Diagnoses 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 Procedures MOHS OFFICE/OUTPATIENT NEW HIGH MDM 60-74 MINUTES José Sheikh, BUYING AGENT.[employer]STING [employer] T[employer]ER [address] [place] [address] Referral ID Status Reason Start Date Expiration Date V isits Requested Visits Authorized [id number] Closed PCP Requested Referral 09/21/2023 09/20/2024 1 1 Reason Comments Mohs Squamous Cell Carcinoma Reason Comments Derm Problem Reason Comments Light Treatments Reason Comments Actinic Keratosis Reason Comments Radiology US Specialty Diagnoses / Procedures Referred By Contac t Referred To Contact US IMAGING Diagnoses Scrotal skin lesion Procedures US SCROTUM AND CONTENTS US SCROTUM & CONTENTS Hortencia Gerard PA-C [address] [place] [address] [place] [address] Referral ID Status Reason Start Date Expiration Date V isits Requested Visits Authorized [id number] Closed Auto-Generate d Referral 07/17/2024 08/16/2025 1 1 Reason Comments Refill Request Reason Comments Established Patient Reason Comments Appointment Cancelled 10/17/24 - Provide r OUT Reason Comments Results Melanoma Reason Comments Patient Update Reason Comments Chest Congestion Shortness of Breath, wheeze, tightness in chest, nasal drainage, nasal congestion x 2 days Care Teams (unrecognized sec tion and content) Tax Processor Relationship Specialty Start Date End Date Dao Raphael Jr., MD PCP - General 10/19/08 Dao Raphael Jr., MD [address] [place] [address] Internal Medicine 05/09/21 Tax Processor Relationship Specialty Start Date End Date Dao Raphael Jr., MD PCP - General 10/19/08 Dao Raphael Jr., MD [address] [place] [address] Internal Medicine 05/09/21 Team Status: Inactive Member Role Status Dates Out of Town Doctor Referring Provider Active TAO Wagner Attending Provider Active [place] Primary Care Provider Active Team Status: Inactive Member Role Status Dates Out of Town Doctor Primary Care Provider, Referring Pr ovider Active Dr. Vernon Prado DO Attending Provider Active Team Status: Inactive Member Role Status Dates Out of Town Doctor Referring Provider Active Dr. Vernon Prado DO Attending Provider Active [place] Primary Care Provider Active Team Status: Inactive Member Role Status Dates Dr. Tolu Franz MD Attending Provider, Referring Provider Active [facility] Primary Care Provider Active Team Status: Inactive Member Role Status Dates [place] Primary Care Provider Active Dr. Vernon Prado DO Attending Provider, Referring Provider Active Team Status: Inactive Member Role Status Dates [place] Primary Care Provider Active Dr. Vernon Prado DO Attending Provider Active Team Status: Inactive Member Role Status Dates Dr. Tolu Franz MD Attending Provider, Referring Provider Active [place] Primary Care Provider Active Team Status: Active Member Role Status DON[facility] Ley Primary Care Provider Active Dr. Tolu Franz MD Attending Provider Active Team Status: Inactive Member Role Status Dates Dr. Vernon Prado DO Attending Provider Active Team Status: Active Member Role Status Dates DAO RAPHAEL Primary Care Provider Active Team Status: Inactive Member Role Status Dates [place] Primary Care Provider Active Dr. Tolu Franz MD Attending Provider Active Team Status: Inactive Member Role Status Dates Dr. Vernon Prado DO Attending Provider, Referring Provider Active [place] Primary Care Provider Active Tax Processor Relationship Specialty Start Date End Date Dao Raphael Jr., MD PCP - General 10/19/08 Dao Raphael Jr., MD [address] [place] [address] Internal Medicine 05/09/21 Tax Processor Relationship Specialty Start Date End Date Dao Raphael Jr., MD PCP - General 10/19/08 Dao Raphael Jr., MD [address] [place] [address] Internal Medicine 05/09/21 Team Status: Inactive Member Role Status Dates [facility] Doctor Referring Provider Active Mery Dumont PA, PA Attending Provider Active [place] Primary Care Provider Active Team Status: Inactive Member Role Status Dates [place] Primary Care Provider Active Dr. Andrés Chris MD Emergency Provider Active Tax Processor Relationship Specialty Start Date End Date Dao Raphael Jr., MD PCP - General 10/19/08 Dao Raphael Jr., MD [address] [place] [address] Internal Medicine 05/09/21 Tax Processor Relationship Specialty Start Date End Date Dao Raphael Jr., MD PCP - General 10/19/08 Dao Raphael Jr., MD [address] [place] [address] Internal Medicine 05/09/21 Tax Processor Relationship Specialty Start Date End Date Dao Raphael Jr., MD PCP - General 10/19/08 Dao Raphael Jr., MD [address] [place] [address] Internal Medicine 05/09/21 Team Status: Inactive Member Role Status Dates Dr. Vernon Prado , DO Attending Provider Active [place] Primary Care Provider, Referring Provide r Active Team Status: Inactive Member Role Status Dates [place] Primary Care Provider Active Dr. Andrés Chris MD Attending Provider, Emergency Pro vider Active Team Status: Inactive Member Role Status Dates [place] Primary Care Provider Active Dr. Tolu Franz MD Attending Provider, Referring Provider Active Tax Processor Relationship Specialty Start Date End Date Dao Raphael Jr., MD PCP - General 10/19/08 Dao Raphael Jr., MD [address] [place] [address] Internal Medicine 05/09/21 Tax Processor Relationship Specialty Start Date End Date Dao Raphael Jr., MD PCP - General 10/19/08 Dao Raphael Jr., MD [address] [place] [address] Internal Medicine 05/09/21 Team Status: Active Member Role Status Dates Dao Raphael Jr, MD Primary Care Provider Active Team Status: Inactive Member Role Status Dates Dao Raphael Jr, MD Primary Care Provi chaz, Attending Provider, Referring Provider Active Team Status: Inactive Member Role Status Dates Dao Raphael Jr, MD Primary Care Provider, Attending Provider Active Tax Processor Relationship Specialty Start Date End Date Dao Raphael Jr., MD PCP - General 10/19/08 Dao Raphael Jr., MD [address] [place] [address] Internal Medicine 05/09/21 Tax Processor Relationship Specialty Start Date End Date Dao Raphael Jr., MD PCP - General 10/19/08 Dao Raphael Jr., MD [address] [place] [address] Internal Medicine 05/09/21 Team Status: Inactive Member Role Status Dates Holli Arredondo LEAD PROGRAMMER-C Attending Provider Active [place] Primary Care Provider, Referring Provide r Active Team Status: Inactive Member Role Status Dates Dao Raphael Jr, MD Primary Care Provi chaz, Attending Provider, Referring Provider Active Start: July 19, 2023 End: July 19, 2023 Team Status: Inactive Member Role Status Dates Dao Raphael Jr, MD Primary Care Provi chaz, Attending Provider, Referring Provider Active Start: August 03, 2023 End: August 03, 2023 Team Status: Inactive Member Role Status Dates Dao Raphael Jr, MD Primary Care Provi hcaz, Attending Provider, Referring Provider Active Start: September 24, 2023 End: September 24, 2023 Tax Processor Relationship Specialty Start Date End Date Dao Raphael Jr., MD PCP - General 10/19/08 Dao Raphael Jr., MD [address] [place] [address] Internal Medicine 05/09/21 Tax Processor Relationship Specialty Start Date End Date Dao Raphael Jr., MD PCP - General 10/19/08 Dao Raphael Jr., MD [address] [place] [address] Internal Medicine 05/09/21 Team Status: Inactive Member Role Status Dates Dao Raphael Jr, MD Primary Care Provi chaz, Attending Provider, Referring Provider Active Start: October 25, 2023 End: October 25, 2023 Team Status: Inactive Member Role Status Dates Mery CONWAY, PA Active Anderson Bermudez LEAD PROGRAMMER, LEAD PROGRAMMER-C Attending Provider Active [place] Primary Care Provider, Referring Provide r Active Tax Processor Relationship Specialty Start Date End Date Dao Raphael Jr., MD PCP - General 10/19/08 Dao Raphael Jr., MD [address] [place], [place] [id number] Internal Medicine 05/09/21 Team Status: Inactive Member Role Status Dates Dao Raphael Jr, MD Primary Care Provi chaz, Attending Provider, Referring Provider Active Start: January 26, 2024 End: January 26, 2024 Team Status: Inactive Member Role Status Dates Dao Raphael Jr, MD Primary Care Provi chaz, Attending Provider Active Start: January 26, 2024 End: January 26, 2024 Team Status: Inactive Member Role Status Dates Holli Arredondo NP-C Attending Provider Active Tax Processor Relationship Specialty Start Date End Date Dao Raphael Jr., MD PCP - General 10/19/08 Dao Raphael Jr., MD [address] [place] [address] Internal Medicine 05/09/21 Tax Processor Relationship Specialty Start Date End Date Dao Raphael Jr., MD PCP - General 10/19/08 Dao Raphael Jr., MD [address] [place] [address] Internal Medicine 05/09/21 Tax Processor Relationship Specialty Start Date End Date Dao Raphael Jr., MD PCP - General 10/19/08 Dao Raphael Jr., MD [address] [place] [address] [place] [address] Internal Medicine 05/09/21 Tax Processor Relationship Specialty Start Date End Date Dao Raphael Jr., MD PCP - General 10/19/08 Dao Raphael Jr., MD [address] [place] [address] [place] [address] Internal Medicine 05/09/21 Tax Processor Relationship Specialty Start Date End Date Dao Raphael Jr., MD PCP - General 10/19/08 Dao Raphael Jr., MD [address] [place] [address] Internal Medicine 05/09/21 Tax Processor Relationship Specialty Start Date End Date Dao Raphael Jr., MD PCP - General 10/19/08 Dao Raphael Jr., MD [address] [place] [address] Internal Medicine 05/09/21 Team Status: Inactive Member Role Status Dates Dao Raphael Jr, MD Primary Care Provi chaz, Attending Provider, Referring Provider Active Start: August 23, 2024 End: August 23, 2024 Tax Processor Relationship Specialty Start Date End Date Dao Raphael Jr., MD PCP - General 10/19/08 Dao Raphael Jr., MD [address] [place] [address] Internal Medicine 05/09/21 Tax Processor Relationship Specialty Start Date End Date Dao Raphael Jr., MD PCP - General 10/19/08 Dao Raphael Jr., MD [address] [place] [address] Internal Medicine 05/09/21 Tax Processor Relationship Specialty Start Date End Date Dao Raphael Jr., MD PCP - General 10/19/08 Dao Raphael Jr., MD [address] [place] [address] Internal Medicine 05/09/21 Tax Processor Relationship Specialty Start Date End Date Dao Raphael Jr., MD PCP - General 10/19/08 Dao Raphael Jr., MD [address] [place] [address] Internal Medicine 05/09/21 Team Status: Inactive Member Role Status Dates Dao Raphael Jr, MD Primary Care Provi chaz, Attending Provider, Referring Provider Active Start: May 24, 2024 End: May 24, 2024 Team Status: Inactive Member Role Status Dates Dao Raphael Jr, MD Primary Care Provider Active Start: December 22, 2024 End: December 22, 2024 Dao Raphael Jr, MD Attending Provider Active Start: December 22, 2024 End: December 22, 2024 Dao Raphael Jr, MD Referring Provider Active Start: December 22, 2024 End: December 22, 2024 Tax Processor Relationship Specialty Start Date End Date Dao Raphael Jr., MD PCP - General 10/19/08 Dao Raphael Jr., MD [address] [place] [id number] Internal Medicine 05/09/21 Tax Processor Relationship Specialty Start Date End Date Dao Raphael Jr., MD PCP - General 10/19/08 Dao Raphael Jr., MD [address] [place] [address] Internal Medicine 05/09/21 Team Status: Active Member Role Status Dates [facility] Primary Care Provider Active Team Status: Inactive Member Role Status Dates DONAVON DC Primary Care Provider Active Start : November 28, 2024 End: November 28, 2024 Dr. Tolu Franz MD Attending Provider Active Start: November 28, 2024 End: November 28, 2024 Dr. Tolu Franz MD Referring Provider Active Start: November 28, 2024 End: November 28, 2024 Team Status: Inactive Member Role Status Dates Dr. Parminder Parks MD Attending Provider Active S tart: December 26, 2024 End: December 26, 2024 DONAVON DC Primary Care Provider Active Start : December 26, 2024 End: December 26, 2024 DONAVON DC Referring Provider Active Start: Patience verma 2024 End: December 26, 2024 Team Status: Inactive Member Role Status Dates DONAVON DC Primary Care Provider Active Start : December 28, 2024 End: December 29, 2024 Dr. Tolu Franz MD Attending Provider Active Start: December 28, 2024 End: December 29, 2024 Dr. Tolu Franz MD Referring Provider Active Start: December 28, 2024 End: December 29, 2024 Team Status: Inactive Member Role Status Dates Dr. Parminder Parks MD Attending Provider Active S tart: January 02, 2025 End: January 02, 2025 Dr. Parminder Parks MD Referring Provider Active S tart: January 02, 2025 End: January 02, 2025 DONAVON DC Primary Care Provider Active Start : January 02, 2025 End: January 02, 2025 Team Status: Active Member Role Status Dates Dr. Parminder Parks MD Attending Provider Active S tart: January 02, 2025 Team Status: Inactive Member Role Status Dates Dr. Vernon Prado DO Attending Provider Active Start: January 15, 2025 End: January 15, 2025 Team Status: Inactive Member Role Status Dates TAO Wagner Attending Provider Active Start: January 17, 2025 End: January 17, 2025 [facility] Primary Care Provider Active Start: January 17, 2025 End: January 17, 2025 [facility] Referring Provider Active Sta rt: January 17, 2025 End: January 17, 2025 Team Status: Inactive Member Role Status Dates DONAVON DC Primary Care Provider Active Start : January 25, 2025 End: January 26, 2025 Dr. Tolu Franz MD Attending Provider Active Start: January 25, 2025 End: January 26, 2025 Dr. Tolu Franz MD Referring Provider Active Start: January 25, 2025 End: January 26, 2025 Team Status: Inactive Member Role Status Dates Dr. Tolu Franz MD Attending Provider Active Start: February 22, 2025 End: February 26, 2025 Dr. Tolu Franz MD Referring Provider Active Start: February 22, 2025 End: February 26, 2025 [facility] Primary Care Provider Active Start: February 22, 2025 End: February 26, 2025 Team Status: Inactive Member Role Status Dates Dao Raphael Jr, MD Primary Care Provider Active Start: April 18, 2025 End: April 18, 2025 Dao Raphael Jr, MD Attending Provider Active Start: April 18, 2025 End: April 18, 2025 Dao Raphael Jr, MD Referring Provider Active Start: April 18, 2025 End: April 18, 2025 Team Status: Inactive Member Role Status Dates Dr. Tolu Franz MD Attending Provider Active Start: March 27, 2025 End: March 28, 2025 Dr. Tolu Franz MD Referring Provider Active Start: March 27, 2025 End: March 28, 2025 Team Status: Inactive Member Role Status Dates Dr. Tolu Franz MD Attending Provider Active Start: April 26, 2025 End: April 28, 2025 Dr. Tolu Franz MD Referring Provider Active Start: April 26, 2025 End: April 28, 2025 Tax Processor Relationship Specialty Start Date End Date Dao Raphael Jr., MD PCP - General 10/19/08 Dao Raphael Jr., MD [address] [place] [address] Internal Medicine 05/09/21 Team Status: Inactive Member Role/Relationship Status Dates Dr. Tolu Franz MD Attending Provider Active Start: February 22, 2025 End: February 26, 2025 Dr. Tolu Franz MD Referring Provider Active Start: February 22, 2025 End: February 26, 2025 [facility] Primary Care Provider Active Start: February 22, 2025 End: February 26, 2025 Team Status: Inactive Member Role/Relationship Status Dates Dr. Tolu Franz MD Attending Provider Active Start: March 27, 2025 End: March 28, 2025 Dr. Tolu Franz MD Referring Provider Active Start: March 27, 2025 End: March 28, 2025 Team Status: Inactive Member Role/Relationship Status Dates Dr. Tolu Franz MD Attending Provider Active Start: April 26, 2025 End: April 28, 2025 Dr. Tolu Franz MD Referring Provider Active Start: April 26, 2025 End: April 28, 2025 Team Status: Inactive Member Role/Relationship Status Dates Dr. Tolu Franz MD Attending Provider Active Start: May 24, 2025 End: May 28, 2025 Dr. Tolu Franz MD Referring Provider Active Start: May 24, 2025 End: May 28, 2025 Tax Processor Relationship Specialty Start Date End Date Dao Raphael Jr., MD PCP - General 10/19/08 Dao Raphael Jr., MD [address] [place] [address] Internal Medicine 05/09/21 Team Status: Active Member Role/Relationship Status Dates No Primary Care Physician Primary Care Provider Active Team Status: Inactive Member Role/Relationship Status Dates Dr. Tolu Franz MD Attending Provider Active Start: February 22, 2025 End: February 26, 2025 Dr. Tolu Franz MD Referring Provider Active Start: February 22, 2025 End: February 26, 2025 [facility] Doctor Primary Care Provider Active Start: February 22, 2025 End: February 26, 2025 Team Status: Inactive Member Role/Relationship Status Dates Dr. Tolu Franz MD Attending Provider Active Start: March 27, 2025 End: March 28, 2025 Dr. Tolu Franz MD Referring Provider Active Start: March 27, 2025 End: March 28, 2025 Team Status: Inactive Member Role/Relationship Status Dates Dr. Tolu Franz MD Attending Provider Active Start: April 26, 2025 End: April 28, 2025 Dr. Tolu Franz MD Referring Provider Active Start: April 26, 2025 End: April 28, 2025 Team Status: Inactive Member Role/Relationship Status Dates Dr. Tolu Franz MD Attending Provider Active Start: May 24, 2025 End: May 28, 2025 Dr. Tolu Franz MD Referring Provider Active Start: May 24, 2025 End: May 28, 2025 Team Status: Active Member Role/Relationship Status Dates Dr. Tolu Franz MD Attending Provider Active Start: June 14, 2025 Dr. Tolu Franz MD Referring Provider Active Start: June 14, 2025 Team Status: Inactive Member Role/Relationship Status Dates No Primary Care Physician Primary Care Provider Active Start: June 14, 2025 End: June 14, 2025 Dr. Rayshawn Yeager DO Emergency Provider Active Start: June 14, 2025 End: June 14, 2025 Team Status: Active Member Role/Relationship Status Dates Dr. Dao Raphael Jr., MD Primary Care Provider Active Team Status: Inactive Member Role/Relationship Status Dates No Primary Care Physician Primary Care Provider Active Start: June 14, 2025 End: June 14, 2025 Dr. Rayshawn Yeager DO Attending Provider Active Start: June 14, 2025 End: June 14, 2025 Dr. Rayshawn Yeager DO Emergency Provider Active Start: June 14, 2025 End: June 14, 2025 Team Status: Active Member Role/Relationship Status Dates Dr. Tolu Franz MD Attending Provider Active Start: June 19, 2025 Dr. Tolu Franz MD Referring Provider Active Start: June 19, 2025 Team Status: Inactive Member Role/Relationship Status Dates Dr. Luis Velasquez DO Emergency Provider Active Start: June 19, 2025 End: June 19, 2025 Dr. Dao Raphael Jr., MD Primary Care Provider Active Start: June 19, 2025 End: June 19, 2025 Team Status: Inactive Member Role/Relationship Status Dates No Primary Care Physician Primary Care Provider Active Start: June 14, 2025 End: June 14, 2025 Dr. Rayshawn Yeager DO Attending Provider Active Start: June 14, 2025 End: June 14, 2025 Dr. Rayshawn Yeager DO Emergency Provider Active Start: June 14, 2025 End: June 14, 2025 Team Status: Active Member Role/Relationship Status Dates Dr. Tolu Franz MD Attending Provider Active Start: June 19, 2025 Dr. Tolu Franz MD Referring Provider Active Start: June 19, 2025 Team Status: Inactive Member Role/Relationship Status Dates Dr. Luis Velasquez DO Attending Provider Active Start: June 19, 2025 End: June 19, 2025 Dr. Luis Velasquez DO Emergency Provider Active Start: June 19, 2025 End: June 19, 2025 Dr. Dao Raphael Jr., MD Primary Care Provider Active Start: June 19, 2025 End: June 19, 2025 Team Status: Inactive Member Role/Relationship Status Dates Dr. Vernon Prado DO Attending Provider Active Start: June 26, 2025 End: June 26, 2025 Dr. Dao Raphael Jr., MD Primary Care Provider Active Start: June 26, 2025 End: June 26, 2025 Dr. Dao Raphael Jr., MD Referring Provider Active Start: June 26, 2025 End: June 26, 2025 Team Status: Inactive Member Role/Relationship Status Dates Dr. Luis Velasquez DO Attending Provider Active Start: June 19, 2025 End: June 19, 2025 Dr. Luis Velasquez DO Emergency Provider Active Start: June 19, 2025 End: June 19, 2025 Dr. Dao Raphael Jr., MD Primary Care Provider Active Start: June 19, 2025 End: June 19, 2025 Team Status: Inactive Member Role/Relationship Status Dates Dr. Vernon Prado DO Attending Provider Active Start: June 26, 2025 End: June 26, 2025 Dr. Dao Raphael Jr., MD Primary Care Provider Active Start: June 26, 2025 End: June 26, 2025 Dr. Dao Raphael Jr., MD Referring Provider Active Start: June 26, 2025 End: June 26, 2025 Team Status: Active Member Role/Relationship Status Dates Dr. Dao Raphael Jr., MD Primary Care Provider Active Start: June 26, 2025 Dr. Vernon Prado DO Attending Provider Active Start: June 26, 2025 Dr. Vernon Prado DO Referring Provider Active Start: June 26, 2025 Team Status: Active Member Role/Relationship Status Dates Dr. Tolu Franz MD Attending Provider Active Start: June 28, 2025 Dr. Tolu Franz MD Referring Provider Active Start: June 28, 2025 Team Status: Inactive Member Role/Relationship Status Dates Dr. Dao Raphael Jr., MD Primary Care Provider Active Start: June 28, 2025 End: June 28, 2025 Dr. Dao Raphael Jr., MD Referring Provider Active Start: June 28, 2025 End: June 28, 2025 Charmaine Yuan LEAD PROGRAMMER, LEAD PROGRAMMER-C Attending Provider Active Start: June 28, 2025 End: June 28, 2025 Team Status: Inactive Member Role/Relationship Status Dates Dr. Tolu Franz MD Attending Provider Active Start: June 28, 2025 End: June 28, 2025 Dr. Tolu Franz MD Referring Provider Active Start: June 28, 2025 End: June 28, 2025 Team Status: Inactive Member Role/Relationship Status Dates Dr. Dao Raphael Jr., MD Primary Care Provider Active Start: June 26, 2025 End: June 26, 2025 Dr. Vernon Prado DO Attending Provider Active Start: June 26, 2025 End: June 26, 2025 Dr. Vernon Prado DO Referring Provider Active Start: June 26, 2025 End: June 26, 2025 Team Status: Active Member Role/Relationship Status Dates Dr. Tolu Franz MD Attending Provider Active Start: July 03, 2025 Dr. Tolu Franz MD Referring Provider Active Start: July 03, 2025 Dr. Dao Raphael Jr., MD Primary Care Provider Active Start: July 03, 2025 Tax Processor Relationship Specialty Start Date End Date Dao Raphael Jr., MD PCP - General 10/19/08 Dao Raphael Jr., MD [address] [place] [address] Internal Medicine 05/09/21 Team Status: Inactive Member Role/Relationship Status Dates Dr. Dao Raphael Jr., MD Primary Care Provider Active Start: July 05, 2025 End: July 05, 2025 Dr. Vernon Prado DO Attending Provider Active Start: July 05, 2025 End: July 05, 2025 Dr. Vernon Prado DO Referring Provider Active Start: July 05, 2025 End: July 05, 2025 Team Status: Inactive Member Role/Relationship Status Dates Dr. Dao Raphael Jr., MD Primary Care Provider Active Start: July 23, 2025 End: July 23, 2025 Charmaine Yuan LEAD PROGRAMMER, LEAD PROGRAMMER-C Other Provider Active Sta rt: July 23, 2025 End: July 23, 2025 Dr. Parminder Parks MD Attending Provider Active S tart: July 23, 2025 End: July 23, 2025 Dr. Parminder Parks MD Referring Provider Active S tart: July 23, 2025 End: July 23, 2025 Team Status: Active Member Role/Relationship Status Dates Dr. Dao Raphael Jr., MD Primary Care Provider Active Start: July 23, 2025 Charmaine Yuan LEAD PROGRAMMER, LEAD PROGRAMMER-C Other Provider Active Sta rt: July 23, 2025 Dr. Parminder Parks MD Attending Provider Active S tart: July 23, 2025 Dr. Parminder Parks MD Referring Provider Active S tart: July 23, 2025 Dr. Parminder Parks MD Other Provider Active Start : July 23, 2025 Team Status: Active Member Role/Relationship Status Dates Dr. Dao Raphael Jr., MD Primary Care Provider Active Start: July 23, 2025 Charmaine Yuan LEAD PROGRAMMER, LEAD PROGRAMMER-C Other Provider Active Sta rt: July 23, 2025 Dr. Parminder Parks MD Referring Provider Active S tart: July 23, 2025 Dr. Parminder Parks MD Other Provider Active Start : July 23, 2025 Dr. Gautam Barnes DO Attending Provider Active S tart: July 23, 2025 Team Status: Inactive Member Role/Relationship Status Dates Dr. Tolu Franz MD Attending Provider Active Start: April 26, 2025 End: April 28, 2025 Dr. Tolu Franz MD Referring Provider Active Start: April 26, 2025 End: April 28, 2025 Team Status: Inactive Member Role/Relationship Status Dates Dr. Tolu Franz MD Attending Provider Active Start: May 24, 2025 End: May 28, 2025 Dr. Tolu Franz MD Referring Provider Active Start: May 24, 2025 End: May 28, 2025 Team Status: Inactive Member Role/Relationship Status Dates No Primary Care Physician Primary Care Provider Active Start: June 14, 2025 End: June 14, 2025 Dr. Rayshawn Yeager DO Attending Provider Active Start: June 14, 2025 End: June 14, 2025 Dr. Rayshawn Yeager DO Emergency Provider Active Start: June 14, 2025 End: June 14, 2025 Team Status: Inactive Member Role/Relationship Status Dates Dr. Luis Velasquez DO Attending Provider Active Start: June 19, 2025 End: June 19, 2025 Dr. Luis Velasquez DO Emergency Provider Active Start: June 19, 2025 End: June 19, 2025 Dr. Dao Raphael Jr., MD Primary Care Provider Active Start: June 19, 2025 End: June 19, 2025 Team Status: Inactive Member Role/Relationship Status Dates Dr. Vernon Prado DO Attending Provider Active Start: June 26, 2025 End: June 26, 2025 Dr. Dao Raphael Jr., MD Primary Care Provider Active Start: June 26, 2025 End: June 26, 2025 Dr. Dao Raphael Jr., MD Referring Provider Active Start: June 26, 2025 End: June 26, 2025 Team Status: Inactive Member Role/Relationship Status Dates Dr. Dao Raphael Jr., MD Primary Care Provider Active Start: June 26, 2025 End: June 26, 2025 Dr. Vernon Prado DO Attending Provider Active Start: June 26, 2025 End: June 26, 2025 Dr. Vernon Prado DO Referring Provider Active Start: June 26, 2025 End: June 26, 2025 Team Status: Inactive Member Role/Relationship Status Dates Dr. Tolu Franz MD Attending Provider Active Start: June 28, 2025 End: June 28, 2025 Dr. Tolu Franz MD Referring Provider Active Start: June 28, 2025 End: June 28, 2025 Team Status: Inactive Member Role/Relationship Status Dates Dr. Dao Raphael Jr., MD Primary Care Provider Active Start: June 28, 2025 End: June 28, 2025 Dr. Dao Raphael Jr., MD Referring Provider Active Start: June 28, 2025 End: June 28, 2025 Charmaine Yuan NP, LEAD PROGRAMMER-C Attending Provider Active Start: June 28, 2025 End: June 28, 2025 Team Status: Inactive Member Role/Relationship Status Dates Dr. Tolu Franz MD Attending Provider Active Start: July 03, 2025 End: July 29, 2025 Dr. Tolu Franz MD Referring Provider Active Start: July 03, 2025 End: July 29, 2025 Dr. Dao Raphael Jr., MD Primary Care Provider Active Start: July 03, 2025 End: July 29, 2025 Team Status: Inactive Member Role/Relationship Status Dates Dr. Dao Raphael Jr., MD Primary Care Provider Active Start: July 05, 2025 End: July 05, 2025 Dr. Vernon Prado DO Attending Provider Active Start: July 05, 2025 End: July 05, 2025 Dr. Vernon Prado DO Referring Provider Active Start: July 05, 2025 End: July 05, 2025 Team Status: Inactive Member Role/Relationship Status Dates Dr. Dao Raphael Jr., MD Primary Care Provider Active Start: July 23, 2025 End: July 23, 2025 Charmaine Yuan LEAD PROGRAMMER, LEAD PROGRAMMER-C Other Provider Active Sta rt: July 23, 2025 End: July 23, 2025 Dr. Parminder Parks MD Attending Provider Active S tart: July 23, 2025 End: July 23, 2025 Dr. Parminder Parks MD Referring Provider Active S tart: July 23, 2025 End: July 23, 2025 Team Status: Active Member Role/Relationship Status Dates Dr. Dao Raphael Jr., MD Primary Care Provider Active Start: July 23, 2025 Charmaine Yuan LEAD PROGRAMMER, LEAD PROGRAMMER-C Other Provider Active Sta rt: July 23, 2025 Dr. Parminder Parks MD Attending Provider Active S tart: July 23, 2025 Dr. Parminder Parks MD Referring Provider Active S tart: July 23, 2025 Dr. Parminder Parks MD Other Provider Active Start : July 23, 2025 Team Status: Active Member Role/Relationship Status Dates Dr. Dao Raphael Jr., MD Primary Care Provider Active Start: July 23, 2025 Charmaine Yuan LEAD PROGRAMMER, LEAD PROGRAMMER-C Other Provider Active Sta rt: July 23, 2025 Dr. Parminder Parks MD Referring Provider Active S tart: July 23, 2025 Dr. Parminder Parks MD Other Provider Active Start : July 23, 2025 Dr. Gautam Barnes DO Attending Provider Active S tart: July 23, 2025 Team Status: Active Member Role/Relationship Status Dates Dr. Tolu Franz MD Attending Provider Active Start: July 31, 2025 Dr. Tolu Franz MD Referring Provider Active Start: July 31, 2025 Dr. Dao Raphael Jr., MD Primary Care Provider Active Start: July 31, 2025 Team Status: Inactive Member Role/Relationship Status Dates Dr. Dao Raphael Jr., MD Primary Care Provider Active Start: August 02, 2025 End: August 02, 2025 Dr. Dao Raphael Jr., MD Referring Provider Active Start: August 02, 2025 End: August 02, 2025 Dr. Parminder Parks MD Attending Provider Active S tart: August 02, 2025 End: August 02, 2025 Team Status: Active Member Role/Relationship Status Dates Dao Raphael Jr, MD Primary Care Physician Active Team Status: Inactive Member Role/Relationship Status Dates Dao Raphael Jr, MD Primary Care Physician Active Start: August 06, 2025 End: August 06, 2025 Dao Raphael Jr, MD Attending Physician Active Start: August 06, 2025 End: August 06, 2025 Dao Raphael Jr, MD Rounding Physician Active Start: August 06, 2025 End: August 06, 2025 PRN Active and Recently Administ ered Medications (unrecognized section and content) Medication Order 11/25/2024 11/26/2024 11/27/2024 lidocaine 10 mg/mL (1 %) injection (XYLOCAINE) (CANCELED) X (OR/PROCEDURE) PRN, Starting on Wed11/27/24 at 1223, Until Wed11/27/24 at 1250, Intraprocedure 1220 (Given - Provid er: Jose Ramon Medina MD) FOR RECORDS PERTAINING TO PATIENTS WHO ARE OR HAVE BEEN ENROLLED IN A CHEMICAL DEPENDENCY/SUBSTANCEABUSE PROGRAM, SOME INFORMATION MAY BE OMITTED. This clinical summary was aggregated from multiple sources. Caution should be exercised in using it in the provision of clinical care. This summary normalizes information from multiple sources, and as a consequence, information in this document may materially change the coding, format and clinical context of patient data. In addition, data may be omitted in some cases. CLINICAL DECISIONS SHOULD BE BASED ON THE PRIMARY CLINICAL RECORDS. [facility]. provides no warranty or guarantee of the accuracy or completeness of information in this document.
--- NOTE | 2025-08-17 20:15 | CT_ITS ---
EXAM: CT BRAIN/HEAD WITHOUT CONTRAST; SPINE CERVICAL WITHOUT CONTRAST CLINICAL HISTORY: SYNCOPE, HEAD TRAUMA; TRAUMA COMPARISON: None. TECHNIQUE: Noncontrast CT images of the head and cervical spine with multiplanar reconstructions. Dose reduction techniques were used including intermediate exposure control (AEC),iterative reconstruction technique, and/or mA and/or KV dose adjustments based on patient's size. FINDINGS: HEAD: No acute intracranial hemorrhage, extra-axial collection, mass effect or evidence of acute infarct. Mild age-appropriate generalized brain parenchymal volume loss and chronic microangiopathic changes. Absent [place] ocular lenses. Atherosclerotic calcification along the carotid siphons. Intact skull base and calvarium. Well-aerated paranasal sinuses and mastoid air cells. CERVICAL SPINE: No acute fracture or subluxation. Straightening of the cervical lordosis is likely positional and/or degenerative in nature. Multilevel spondylotic changes with varying degrees of disc space narrowing, anterior osteophytosis, uncovertebral spurring and hypertrophic facet arthropathy. No prevertebral soft tissue swelling. Atherosclerotic plaque at the carotid artery bifurcations. Heterogeneous nodular thyroid gland. Partially imaged moderate-large left and small right pleural effusions. CT/Spine Cervical without Contras IMPRESSION: 1. No acute intracranial abnormality. 2. No acute cervical spine fracture or traumatic malalignment. 3. Heterogeneous nodular thyroid gland; may be further assessed with ultrasound . 4. Moderate-large left and small right pleural effusions seen in the upper thor ax. Reading Location: [facility]
--- NOTE | 2025-08-17 20:15 | CT_ITS ---
EXAM: CT BRAIN/HEAD WITHOUT CONTRAST; SPINE CERVICAL WITHOUT CONTRAST CLINICAL HISTORY: SYNCOPE, HEAD TRAUMA; TRAUMA COMPARISON: None. TECHNIQUE: Noncontrast CT images of the head and cervical spine with multiplanar reconstructions. Dose reduction techniques were used including intermediate exposure control (AEC),iterative reconstruction technique, and/or mA and/or KV dose adjustments based on patient's size. FINDINGS: HEAD: No acute intracranial hemorrhage, extra-axial collection, mass effect or evidence of acute infarct. Mild age-appropriate generalized brain parenchymal volume loss and chronic microangiopathic changes. Absent circle ocular lenses. Atherosclerotic calcification along the carotid siphons. Intact skull base and calvarium. Well-aerated paranasal sinuses and mastoid air cells. CERVICAL SPINE: No acute fracture or subluxation. Straightening of the cervical lordosis is likely positional and/or degenerative in nature. Multilevel spondylotic changes with varying degrees of disc space narrowing, anterior osteophytosis, uncovertebral spurring and hypertrophic facet arthropathy. No prevertebral soft tissue swelling. Atherosclerotic plaque at the carotid artery bifurcations. Heterogeneous nodular thyroid gland. Partially imaged moderate-large left and small right pleural effusions. CT/Brain/Head without Contrast IMPRESSION: 1. No acute intracranial abnormality. 2. No acute cervical spine fracture or traumatic malalignment. 3. Heterogeneous nodular thyroid gland; may be further assessed with ultrasound . 4. Moderate-large left and small right pleural effusions seen in the upper thor ax. Reading Location: [facility]
[2025-08-17 20:17] LABS: Prothrombin Time (Protime)PT. 27.2 SECONDS (11.7-14.9)
[2025-08-17 20:18] LABS: Partial Thromboplast Time 32.9 Seconds (24.1-36.2)
--- NOTE | 2025-08-17 20:20 | RAD_ITS ---
PROCEDURE: CHEST PA AND LATERAL 08/17/2025 REASON FOR EXAM: SYNCOPE, SOB TECHNIQUE: Procedure Code: RADCXR Modality: DX Procedure: CHEST PA AND LATERAL COMPARISON: 06/19/2025 FINDINGS: Hardware: None. Heart: Heart size is mildly enlarged. Mediastinum: The mediastinal contour is unremarkable. Lungs: Moderate left pleural effusion with likely superimposed consolidation. Mild pulmonary vascular congestion. No definite pneumothorax Bones: Degenerative changes are identified within the thoracic spine. RAD/Chest PA and Lateral IMPRESSION: 1. Moderate left pleural effusion with likely superimposed consolidation. 2. Mild cardiomegaly with mild pulmonary vascular congestion. [facility]
[2025-08-17 20:29] LABS: AST(SGOT) 37 U/L (<=37); Alanine Aminotransfer ALT/SGPT 41 U/L (<=46); Albumin, Serum 3.6 g/dL (3.4-4.8); Alkaline Phosphatase 182 U/L (40-129); Anion Gap 16 (5-15); BUN 41 mg/dL (4-19); BUN/Creat Ratio 29.9 RATIO (10-20); Calcium,Total 9.0 mg/dL (7.6-11.0); Carbon Dioxide 22.0 mmol/L (21.0-32.0); Chloride 99 mmol/L (98-108); Estimated Creatinine Clearance 51.01 ml/min (50-250); Globulin 3.0 g/dL (2.2-4.2); Glucose 119 mg/dL (70-99); Potassium 3.6 mmol/L (3.3-5.1); Pro- Brain NATRIURETIC PEPTIDE 2332 pg/mL (<=1800)
[2025-08-17 21:00] VITALS: BP 137/101; PULSE 90; RESP 20
--- NOTE | 2025-08-17 21:10 | CT_ITS ---
PROCEDURE: CHEST WITHOUT CONTRAST 08/17/2025 REASON FOR EXAM: ABNORMLA CXR, DYSPNEA, TECHNIQUE: Chest CT without contrast. Coronal and Sagittal reconstruction series were provided. One or more dose reduction techniques were used (e.g., Automated exposure control, adjustment of the mA and/or kV according to patient size, use of iterative reconstruction technique RADIATION DOSE SUMMARY: CTDlvol: 17 mGy DLP: 695 mGycm COMPARISON: Chest x-ray 08/17/2025 FINDINGS: Hardware: None. Lymph nodes: Multiple shotty mediastinal lymph nodes. No enlarged hilar or axillary lymph nodes. Heart and Vasculature: Mild cardiomegaly. Moderate pericardial effusion. Moderate coronary artery atherosclerotic calcifications. Atherosclerotic calcifications of the thoracic aorta. Thoracic aorta and pulmonary arteries have normal contours; noncontrast technique limits evaluation. Lungs and Airways: Mild pulmonary vascular congestion and bibasilar dependent atelectasis. Possible superimposed consolidation with air bronchograms in the posterior left lung base. Airways are patent. Pleura: Small right and moderate left pleural effusions. No pneumothorax. Upper Abdomen: Cholecystectomy. Visualized upper abdomen otherwise unremarkable. Bones: Moderate degenerate changes and kyphosis of the thoracic spine. No acute fractures. CT/Chest without Contrast IMPRESSION: 1. Mild cardiomegaly with moderate pericardial effusion. 2. Mild right and moderate left pleural effusions. 3. Bibasilar atelectasis with possible consolidation of the posterior left lung base. Reading Location: [facility]
[2025-08-17 21:13] LABS: Troponin T High Sensitivity 40 ng/L (<=22)
[2025-08-17 22:06] VITALS: BP 128/87; PULSE 95; RESP 16; O2SAT 95
[2025-08-17 22:47] LABS: Troponin T High Sens 2 HR 25 ng/L (<=22)
--- NOTE | 2025-08-17 22:55 | PCM.HP.STD ---
HPI - General General Date of Admission: 08/17/25 Date of Service: 08/17/25 Chief Complaint: Recent syncopal events, dyspnea worsening with exertion. HPI Narrative The patient is an 85 y/o M w/ PMHx: Former tobacco use, PAF, Anxiety and Depression, HTN, HLD, Allergic rhinitis, Diabetes mellitus type II, Chronic normocytic anemia, CKD stage II per GFR trending, BPH with obstructive pathology, CAD s/p PCI who presents to the [facility] ED on 08/17/2025 with history of syncopal event with worsening dyspnea especially on exertion noting has had 2 syncopal events over the last week another earlier this week when he was getting up from the bathroom where he fell and injured his right elbow bruising it reported that prior to arrival today he felt like he had to have a bowel movement and was on the toilet but when he went to stand up he had a syncopal event falling to the floor striking his left eyebrow with a small skin tear resulting with inability to even walk out of the house to the driveway because of his dyspnea that has been progressing over the last 2 months since an A-fib diagnosis 2 months previous to current presentation with cardioversion 2 months prior however unfortunately it was unsuccessful and he remains in atrial fibrillation with recent loose stools prompting eventual ED evaluation to be cautious. Patient of note with the last dose of Eliquis taken earlier in the day as he did not take any of his Eliquis in the evening on day of ED presentation. Workup in the ED included T97.6, heart rate 89, BP 123/88, respiratory rate 18, 96% on room air with most recent repeat vitals heart rate 95, BP 128/87, respiratory rate 16, 95% on room air, CBC with WC 14.6, hemoglobin 0.6, MCV 86.1, platelet 366 with left shift, coags with PT 27.2, INR 2.5, CMP with anion gap 16, BUN/ creatinine 41/1.37, GFR 51, glucose 119, alk phos 182, initial troponin 40 with repeat delta 2-hour 25, NT proBNP II 2332, CT of the brain and CT cervical spine with no acute intracranial findings or any acute cervical spinal fracture or traumatic malalignment, heterogeneous nodular thyroid gland, moderate large left and small right pleural effusion seen in the upper thorax, chest x-ray with moderate left pleural effusion with likely superimposed consolidation, mild cardiomegaly with mild pulmonary vascular congestion, CT chest with mild cardiomegaly with moderate pericardial effusion, mild right and moderate left pleural effusions and bibasilar atelectasis with possible consolidation of the posterior left lung base, EKG with rate controlled atrial fibrillation. In the ED patient ministered tetanus update, Tylenol 500 mg p.o. x 1. PFSH Medical History Atrial fibrillation Hyperlipidemia Skin cancer Pneumonia Heart disease Gastrointestinal problem Gall stones Cataract Bone fracture Allergies Type 2 diabetes mellitus Hypertension Celiac disease Anxiety Coronary artery disease Hypertension Atherosclerotic heart disease of [place] coronary artery without angina pectoris Home Medications ?Medication ?Instructions ?Recorded ?Last Taken ?Type aspirin 81 mg tablet,delayed 81 mg PO DAILY@0800 heart [facility] 03/18/21 07/23/25 History release cholecalciferol (vitamin D3) 50 4,000 unit PO DAILY SUPPLEMENT 03/18/21 03/18/21 History mcg (2,000 unit) capsule vit C 250 mg-vit E 90 mg-zinc 40 1 cap PO BID [facility] 03/18/21 03/18/21 History mg-copper 1 [id number] capsule atorvastatin 40 mg tablet 40 mg PO QHS #90 tabs 04/11/21 Unknown Rx isosorbide mononitrate 30 mg 30 mg PO DAILY #90 tabs 04/11/21 Unknown Rx tablet,extended release 24 hr vitamin E mixed 400 unit capsule 400 unit PO DAILY 02/16/22 Unknown History montelukast 10 mg tablet 10 mg PO QHS breathing 10/19/23 Unknown History valsartan 320 mg tablet 320 mg PO DAILY 10/19/23 07/23/25 History hydrochlorothiazide 25 mg tablet 25 mg PO Q OTHER DAY 07/19/24 Unknown History tamsulosin 0.4 mg capsule 0.4 mg PO BID 12/26/24 Unknown History famotidine 20 mg tablet 20 mg PO DAILY #90 tabs 01/15/25 Unknown Rx dulaglutide 3 mg/0.5 mL 3 mg (0.5 mL) subcut QWEEK #2 mL 06/28/25 Unknown Rx subcutaneous pen injector (Trulicity) metformin 500 mg tablet,extended 500 mg PO DAILY 06/28/25 Unknown History release 24 hr apixaban 5 mg tablet (Eliquis) 5 mg PO BID #180 tabs 07/12/25 07/23/25 Rx amiodarone 200 mg tablet 200 mg PO DAILY #30 tabs 08/02/25 Unknown Rx metoprolol succinate 50 mg 50 mg PO DAILY #90 tabs 08/02/25 Unknown Rx tablet,extended release 24 hr diltiazem HCl 120 mg 120 mg PO QHS 08/17/25 Unknown History capsule,extended release 24 hr Allergy/AdvReac Type Severity Reaction Status Date / Time gluten AdvReac upset Verified 08/17/25 18:54 stomach/diarrhea lactose AdvReac upset Verified 08/17/25 18:54 stomach/diarrhea Family History Mother Thyroid disorder Father Myocardial infarction Hypertension Heart disease Surgical History Hx of melanoma excision History of cholecystectomy Presence of coronary angioplasty implant and graft (~04/03/21) Presence of stent in coronary artery (~04/03/21) Social History household members: none Smoking Status: Former smoker how long ago did patient quit smokin years ago alcohol intake: current alcohol intake frequency: holidays/special occasions only substance use type: does not use caffeine: Yes Type: coffee Number of servings: 2 and tea Number of servings: 1 what type of physical activity do you participate in: other details: cardio frequency: 3-4 times per week ROS ROS Narrative Admission Review of Systems: CONSTITUTIONAL: No weight loss, fever, chills, + weakness or fatigue. HEENT: + Fall with laceration above the left eyebrow, mild headache. Eyes: No visual loss, blurred vision, double vision or yellow sclerae. Ears, Nose, Throat: No hearing loss, sneezing, congestion, runny nose or sore throat. SKIN: No rash or itching, lesions, wounds. CARDIOVASCULAR: + Recent syncopal events, orthopnea, edema. No chest pain, chest pressure or chest discomfort, palpitations. RESPIRATORY: + Dyspnea, worse with exertion, occasional cough without marked sputum. No wheezing, hemoptysis. GASTROINTESTINAL: No anorexia, nausea, vomiting or diarrhea, abdominal pain, melena, BRBPR. GENITOURINARY: No dysuria, frequency, urgency or retention. NEUROLOGICAL: + Syncopal events, laceration following fall above left eyebrow, mild headache. No paralysis, ataxia, numbness or tingling in the extremities, focal weakness, change in bowel or bladder control, seizure. MUSCULOSKELETAL: + muscle, back pain, joint pain or stiffness. HEMATOLOGIC: + Chronic anemia, easy bleeding/bruising. LYMPHATICS: No enlarged nodes. No history of splenectomy. PSYCHIATRIC: + History of anxiety and depression. ENDOCRINOLOGIC: No reports of sweating, cold or heat intolerance. No polyuria or polydipsia. ALLERGIES: + History of allergic rhinitis. Vital Signs Vital Signs Vital Signs: 08/17/25 18:54 08/17/25 18:56 08/17/25 20:03 Temperature 97.6 F L Temperature Source Oral Pulse Rate 89 97 Respiratory Rate 18 24 H Respiratory Effort Normal Non-Labored Blood Pressure 123/88 H 118/89 H Blood Pressure Mean 99 98 Pulse Ox 96 95 Oxygen Delivery Method Room Air Room Air 08/17/25 21:00 08/17/25 22:06 Temperature Temperature Source Pulse Rate 90 95 Respiratory Rate 20 H 16 Respiratory Effort Blood Pressure 137/101 H 128/87 H Blood Pressure Mean 113 100 Pulse Ox 95 Oxygen Delivery Method Room Air Weight Weight: 262 lb 12.656 oz Body Mass Index (BMI) 37.7 Physical Exam Narrative Physical Examination: General: Awake, alert, oriented x 3 and cooperative, seated upright in the ED bed, fatigued, evident recent fall, no bleeding from above the left eye with laceration with suturing in place per ED. Skin: Normal color, normal turgor, no icterus, no cyanosis except occasional stage ecchymoses, abrasion, recent falls with as noted laceration above left eye with skin now intact with suturing per ED, no bleeding. HEENT: AT aside from small laceration above the left eye sutured in place per ED/NC, EOMI, PERRLA, MMM, no carotid bruits or JVD noted. Lungs: Significantly diminished, bilaterally, left greater than right, mild rales at the bases, mildly increased respiratory rate but no distress, no marked rhonchi or wheezing. Heart: Irregular, rate controlled; no gallop, rub audible. Abdomen: Soft, obese, NTTP, ND, mildly hyperactive BS, no appreciated HSM. Extremities: No cyanosis, no clubbing, significant pedal to proximal knee 2-3+ pitting edema. Neurological: Patient awake, alert, oriented as noted, cognitive function intact; pupils equally reactive to light and accommodation, cranial nerves grossly normal, moving all 4 extremities, no focal deficits, strength severely globally decreased. Psychiatric: Affect appears mildly flat, fatigued, no acute evidence of depressive or anxiety feelings but does have underlying history. Results Lab / Micro Data 08/17/25 19:55 08/17/25 19:55 Labs: Laboratory Results - last 24 hr 08/17/25 19:55: WBC 14.6 H, RBC 4.25 L, Hgb 11.6 L, Hct 36.6 L, MCV 86.1, MCH 27.3, MCHC 31.7 L, RDW Std Deviation 48.0 H, RDW Coeff of Micheal 15.5 H, Plt Count 366, MPV 9.1, Immature Gran % (Auto) 1.000 H, Neut % (Auto) 83.8 H, Lymph % (Auto) 6.8 L, [place] % (Auto) 7.7, Eos % (Auto) 0.3, Baso % (Auto) 0.4, Absolute Neuts (auto) 12.3 H, Absolute Lymphs (auto) 0.99, Nucleated RBC % 0, PT 27.2 H, INR 2.5, APTT 32.9, Sodium 138, Potassium 3.6, Chloride 99, Carbon Dioxide 22.0, Anion Gap 16 H, BUN 41 H, Creatinine 1.37 H, Estim Creat Clear Calc 51.01, Est GFR (MDRD) Non-Af 51 L, BUN/Creatinine Ratio 29.9 H, Glucose 119 H, Calcium 9.0, Total Bilirubin 0.93, AST 37, ALT 41, Alkaline Phosphatase 182 H, Troponin T High Sens 40 H D, NT pro BNP II 2332 H, Total Protein 6.6, Albumin 3.6, Globulin 3.0, Albumin/Globulin Ratio 1.2 08/17/25 21:55: Troponin T Hi Sens 2 Hr 25 H Imaging Radiology Impression Brain CT 08/17/25 20:15 IMPRESSION: 1. No acute intracranial abnormality. 2. No acute cervical spine fracture or traumatic malalignment. 3. Heterogeneous nodular thyroid gland; may be further assessed with ultrasound. 4. Moderate-large left and small right pleural effusions seen in the upper thorax. Reading Location: [facility] Cervical Spine CT 08/17/25 20:15 IMPRESSION: 1. No acute intracranial abnormality. 2. No acute cervical spine fracture or traumatic malalignment. 3. Heterogeneous nodular thyroid gland; may be further assessed with ultrasound. 4. Moderate-large left and small right pleural effusions seen in the upper thorax. Reading Location: [facility] Chest X-Ray 08/17/25 20:20 IMPRESSION: 1. Moderate left pleural effusion with likely superimposed consolidation. 2. Mild cardiomegaly with mild pulmonary vascular congestion. Reading Location: [facility] Assessment & Plan Assessment/Plan (1) Pericardial effusion: (2) Syncope and collapse: (3) Pleural effusion: PLAN: Plan The patient is an 85 y/o M w/ PMHx: Former tobacco use, PAF, Anxiety and Depression, HTN, HLD, Allergic rhinitis, Diabetes mellitus type II, Chronic normocytic anemia, CKD stage II per GFR trending, BPH with obstructive pathology, CAD s/p PCI who presents to the [facility] ED on 08/17/2025 with history of syncopal event with worsening dyspnea especially on exertion noting has had 2 syncopal events over the last week another earlier this week when he was getting up from the bathroom where he fell and injured his right elbow bruising it reported that prior to arrival today he felt like he had to have a bowel movement and was on the toilet but when he went to stand up he had a syncopal event falling to the floor striking his left eyebrow with a small skin tear resulting with inability to even walk out of the house to the driveway because of his dyspnea that has been progressing over the last 2 months since an A-fib diagnosis 2 months previous to current presentation with cardioversion 2 months prior however unfortunately it was unsuccessful and he remains in atrial fibrillation with recent loose stools prompting eventual ED evaluation to be cautious. #1. Symptomatic Pleural effusions with questionable HFpEF with noted moderate pericardial effusion concurrently: Will admit to PCU, maintain on cardiac telemetry, obtain cardiac enzyme series, obtain serial EKGs, initiate and continue IV lasix diuresis, monitor I/Os, maintain on intake restriction, continue medical therapy, obtain TSH and magnesium level. Most recent echocardiogram noted 01/23 with normal LV, LV systolic function normal, LVEF 65%, stage I diastolic dysfunction, mild concentric LVH thus will request repeat. Will place snug dustin wraps with lower extremity elevation if able to tolerate. Given significant effusions will hold patient's Eliquis regimen in preparation for request for thoracentesis with plan to send fluid for evaluation. #2. Left lung base consolidation, questionable pneumonia, community-acquired although lower suspicion: Although lower suspicion given recent presentation worsening symptoms given significant effusions unable to entirely rule out concurrent pneumonia, to be cautious will maintain on IV Rocephin and azithromycin, encourage HOB, IS parameters w/ pending sputum cultures, procalcitonin and urine antigens. If further workup assists in ruling out bacterial etiology would de-escalate off antibiotic therapy. #3. Syncopal Event, suspect related with #1, potentially #2: EKG in ED w/ rate controlled A-fib with no acute evidence of ischemia, CXR w/ notable effusions with follow-up CT chest as noted, initial troponin 40 with repeat delta 25. Will maintain on monitored bed, will continue to obtain serial cardiac enzymes and EKGs as needed, maintain on fall precautions, will obtain orthostatic vital sign assessments, echocardiogram requested already as noted, PT/OT consultation to ascertain stability and discharge needs. Additionally given fall with laceration just above the left eyebrow status post suturing in the ED will need to reassess for suture removal in 5 to 7 days. #4. Acute renal insufficiency on CKD stage II per previous GFR trending: Admission BUN/creatinine 41/1.37, GFR 51, baseline GFR primarily consistent with stage II previously, baseline renal function primarily 0.7-1.0, most recently 06/26/2025 creatinine 1.15, will continue to monitor and if worsens low threshold to hold nephrotoxic medications however in the interim as noted plan for IV diuresis, continue to closely trend. #5. PAF: Patient with persistent ongoing A-fib, unfortunately prior cardioversion attempt unsuccessful, will continue patient amiodarone, diltiazem, metoprolol regimen, temporarily holding Eliquis for thoracentesis as noted. #6. Anxiety and depression: Noted history in the chart, per current list on a regimen, encourage continued follow-up outpatient for evaluation and therapy as needed. #7. Diabetes mellitus type II: Hold oral home regimen, ADA diet, accu checks w/ ISS. #8. Hypertension: Continue home regimen including diltiazem, isosorbide, metoprolol, valsartan, IV Lasix as noted, PRN hydralazine. #9. Hyperlipidemia: Will continue patient on statin therapy, FLP in AM. #10. CAD: Status post PCI 2020, temporarily holding Eliquis for thoracentesis, continue baby aspirin, continue metoprolol, valsartan, statin therapy. #11. Incidentally noted heterogeneous nodular thyroid: TSH, free T4 requested. #12. Chronic normocytic anemia: Admission hemoglobin 11.6, MCV 86.1, baseline hemoglobin 11 more recently, stable, continue to trend. #13. Allergic rhinitis: Will continue patient home montelukast regimen. #14. GERD: Will continue patient home famotidine regimen. #15. BPH with obstructive pathology: Will continue patient on Flomax regimen, monitor for retention. #16. Former tobacco use: Encouraged continued tobacco cessation. #17. DVT prophylaxis: SCDs, holding his eliquis for thoracentesis. #18. CODE status: Patient NATA is his daughter who is present and living will is currently in place. Discussed CODE status at length including difference between FULL code, DNR-CCA and DNR-CC status. Following discussions about the differences in these status, requested Full Code status. Advanced Care Planning Face to Face Time: 16 minutes. Charges/Coding Visit Charges Inpatient E&M: 66177 Init Hosp L3 Procedures Hospitalists Procedures: 33671 Advncd Care Plan 30 Min
[2025-08-17 23:18] VITALS: BP 139/95; PULSE 108; RESP 16; TEMP 37.1; O2SAT 95
[2025-08-18] VITALS (7 sets, daily range): BP systolic 116–129; BP diastolic 74–91; PULSE 89–106; RESP 14–20; TEMP 36.5–37; O2SAT 96–98; BMI 33.3; BMI 33.5
--- OUTSIDE RECORDS SUMMARY | 2025-08-18 00:01 | XMS RPT_ITS | CCD ---
Author Organization [facility] Care Team Providers Care Director Of Epidemiology Name Role Phone EL-MIMI SALIM C Unavailable Unavailable 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 Unavailable Unavailable DAO RAPHAEL JR Unavailable Unavailable DAO RAPHAEL JR Unavailable Unavailable Dr. Tolu Franz Attending Provider [phone] [place] Doctor, Out of Primary Care [facility], [facility] of Referring Provider Unavailab le Care Physician, No Primary Referring Provider Un available TAO Arredondo Attending Provider TAO Arredondo Attending Provider [place] Doctor, Out of Primary Care Provider [facility] [place] [facility], Out of Referring Provider Unavailab micheal [place] Doctor, Out of Primary Care Provider TAO Rich Attending Provider Donavon Wesley MD, Dao Burgess Primary Care Provider [phone] Donavon Wesley MD, George G Unavailable ZORAIDA Zambrano Attending Provider FriendDr. Junior Attending Provider Donavon Wesley MD, George G Primary Care Provider [phone] [place] Doctor, Out of Primary Care Provider [facility], Out of Referring Provider UnavailZORAIDA Dickerson Attending Provider Dr. Vernon Prado Attending Provider [place] Doctor, Out of Primary Care Provider [facility] [place] [facility], Out of Referring Provider DAO Alva Primary Care Provider Unavailabl e TAO Arredondo Attending Provider Donavon Wesley MD, Dao Burgess Primary Care Provider Donavon Wesley MD, Dao Burgess Unavailable [facility] Doctor, Out of Referring Provider Unavailab Dr. Vernon Magana Attending Provider DAO RAPHAEL Primary Care Provider Unavailabl e TAO Arredondo Attending Provider Tim CONWAY, [place] Mery Boewr Attending Provider [facility] Doctor, Out of Referring Provider Unavailab DAO [...] Dr. Vernon Prado Attending Provider [phone] [facility] TAO RAO Attending Provider DAO RAPHAEL Primary Care Provider Unavailabl DAO Robb Referring Provider Unavailable MD Dao Raphael Jr Primary Care Provider [phone] MD Dao Raphael Jr Attending Provider Dr. Vernon Prado Attending Provider TAO Arredondo Attending Provider Dao aRphael Jr Attending Unavailable Dao Raphael Jr Primary [...] Johan SHAH, Dr. Junior Attending Provider Arnulfo 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-C, Holli Attending Provider [phone] [facility] Doctor, Out of Primary Care Provider [facility] Doctor, Out of Referring Provider Unavailab le Charly MATHEWS, Dr. Zurita Attending Provider [phone] DAO RAPHAEL Primary Care Provider Maria M MATHEWS, Dr. Motley Attending Provider Maria M MATHEWS, Dr. Motley Referring Provider Maria M MATHEWS, Dr. Motley Attending Provider Dr. Tolu Franz MD Referring Provider [facility] Doctor, Out of Primary Care Provider [facility] Physician, No Primary Primary Care [...] Provider Donavon MATHEWS, Dr. Dc Referring Provider Dr. Vernon Prado DO Referring Provider Kwabena BURGER, Charmaine Attending Provider [phone] Kwabena BURGER, Charmaine Other Provider Charly MATHEWS, Dr. Zurita Attending Provider [phone] Charly MATHEWS, Dr. Zurita Referring Provider [phone] Charly MATHEWS, Dr. Zurita Other Provider [phone] Cameron SHAH, Dr. Florez Attending Provider Maria M MATHEWS, Dr. Motley Attending Provider Maria M MATHEWS, Dr. Motley Referring Provider Care Physician, No Primary Primary Care Unava ilable Rayshawn Yeager Attending Unavailable [place] Doctor, Out of Primary Care Unavailable Moodisp[place], Tolu Attending Unavailable [place], Tolu Referring Unavailable [place], Tolu Referring Unavailable [place], Tolu Attending Unavailable Luis Velasquez Attending Unavailable Raphael Jr., [place] Primary Care Unavailable [place], Tolu Referring Unavailable [place], Tolu Attending Unavailable KAM, LENNY Primary Care Unavailable [place], Tolu Attending Unavailable Moodispajeanie, Tolu Referring Unavailable [facility] Doctor, Out of Primary Care Unavailable Moodispajeanie, Tolu Attending Unavailable Moodispaejanie, Tolu Referring Unavailable Charly, Parminder Attending Unavailable [...] Unavailable Vernon Prado Referring Unavailable Raphael Jr., [place] Primary Care Unavailable Kwabena RAO, Charmaine Consulting Unavailable Parminder Parks Attending Unavailable Charly Parminder Referring Unavailable Raphael Jr., [place] Primary Care Unavailable Moodispajeanie, Tolu Referring Unavailable Moodispajeanie, Tolu Attending Unavailable KAM, LENNY Primary Care Unavailable [place], Tolu Referring Unavailable [place], Tolu Attending Unavailable KAM, LENNY Primary Care Unavailable [place], Tolu Referring Unavailable [place], Tolu Attending Unavailable Charly, [place] Attending Unavailable KAM, LENNY Referring Unavailable KAM, LENNY Primary Care Unavailable Kwabena RAO, Charmaine Consulting Unavailable Charly, [place] Referring Unavailable Gautam Barnes Attending Unavailable Raphael Jr., Dao Primary Care Unavailable Charly, [place] Consulting Unavailable Kwabena RAO, Charmaine Consulting Unavailable Charly, Parminder Attending Unavailable Charly, [place] Referring Unavailable Raphael Jr., Dao Primary Care [...] Primary Care Unavailable Holli Arredondo Attending Unavailable [facility] Doctor, Out of Primary Care Unavailable [facility] Doctor, Out of Referring Unavailable Friend, Vernon Attending Unavailable Charly, [place] Attending Unavailable Rapheal Jr., Dao Primary Care Unavailable Raphael Jr., Dao Referring Unavailable Charmaine Yuan NP Attending Unavailable Raphael Jr., Dao Referring Unavailable Raphael Jr., Dao Primary Care Unavailable Charly, [place] Referring Unavailable Charly, [place] Attending Unavailable KAM, LENNY Primary Care Unavailable [...] Care Physician Dao Raphael MD Attending Physician [phone] Dao Raphael MD [place] Physician Allergies Allergy Classification Reported Allergen(s) Allergy Type Date of Onset Reaction(s) Facility Lactose (1 source) Lactose Drug Allergy 1 GI Upset [facility] Wheat gluten extract (1 source) Wheat gluten extract Drug Allergy 1 Other: See Comments [facility] (20 sources) Lactose; Translations: [LACTOSE] Drug Allergy 1 GI Upset [facility] (20 sources) Wheat gluten extract; Translations: [GLUTEN] Drug Allergy 1 Other: See Comments [facility] (12 sources) Milk; Translations: [milk] Allergy to substance 3 Diarrhea [facility] (2 sources) Gluten Drug allergy (disorder) 3 [facility] Repository (1 source) Lactose Drug Allergy 5 [facility] Repository Medications Current Medications Medication Drug Class(es) Dates Sig (Normalized) Sig (Original) [id number] 200 actuat albuterol 0.09 mg/actuat metered dose [...] Comment on above: Take 1 tablet by [facility] once daily. cholecalciferol 0.1 mg oral tablet (20 sources) Vitamin D Start: 06-23-2023 take 1 tablet by mouth once daily Cholecalciferol (Vitamin D3) 100 mcg (4,000 unit) tablet Active 100 ug PO Every Day June 23, 2023 12:00am Complies with drug therapy Start: 03-18-2021 take 2 capsules by [facility] once daily Cholecalciferol (Vitamin D3) 2,000 UNIT capsule Active 4000 U PO DAILY March 18, 2021 12:00am SUPPLEMENT Start: 03-18-2021 take 4000 [IU] by mo [facility] once daily Cholecalciferol (Vitamin D3) Active 4000 UNIT PO DAILY March 18, 2021 12:00am take 1 capsule by mo [facility] once daily cholecalciferol, vitamin D3, 4,000 unit cap Take 1 capsule by mouth daily Active Comment on above: Take 1 capsule by mo [facility] daily ciprofloxacin 500 mg oral tablet (1 [...] 14 days. For the ear and right anabaptist 40 g 0 10/12/2022 10/26/2022 Active Comment on above: Apply to affected ar ea twice daily for 14 days. For the ear and right anabaptist hydroCHLOROthiazide 25 mg oral tablet (20 sources) [...] Start: 12-26-2024 take 1 capsule by mo [facility] once daily Tamsulosin 0.4 mg capsule Active [...] USE FOR MORE THAN ONE WEEK Vit C,A-Rw-Afiza-Lutei n-Zeaxan (20 sources) Start: 03-18-2021 take 1 capsule by mouth twice daily Vit C,R-Lg-Xzzvb-Lute in-Zeaxan Active 1 CAP PO TWICE A DAY March 18, 2021 5:43pm Start: 03-18-2021 take 1 capsule by mo [facility] twice daily Vit C,C-Tr-Cndzz-Lutein-Zeaxan Active 1 CAP PO TWICE A DAY March 17, 2021 11:00pm Start: 03-18-2021 take 1 capsule by mo [facility] twice daily Vit C,H-Go-Owblp-Lutein-Zeaxan Active 1 CAP PO TWICE A DAY March 18, 2021 12:00am Vit C,P-Ct-Omuub-Lutein-Zeax an 1 EACH capsule (13 sources) Start: 04-20-2021 take 1 capsule by mouth twice daily Vit C,U-Kt-Uywlo-Lutein-Zeaxan 1 EACH capsule Active 1 NMA PO TWICE A DAY March 18, 2021 12:00am [facility] Start: 03-18-2021 take 1 capsule by mo [facility] twice daily Vit C,Z-Wc-Nzrbg-Lutein-Zeaxan 1 EACH capsule Active 1 NMA PO [...] Comment on above: [facility] 400 [facility]. Completed/Discontinued Medications Medication Drug Class(es) Dates Sig (Normalized) Sig (Original) aminolevulinate 200 mg/ml topical solution (20 sources) Start: 04-12-2025 End: 04-12-2025 aminolevulinic acid (LEVULAN) 20% topical solution Start: 04-12-2025 End: 04-12-2025 2 each, TOPICAL, ONCE, 1 dos e, On [facility] 04/12/25 at 1030, AMB MED ORDERS Start: [...] Comment on above: Take 1 [facility] for 7 days. clopidogrel 75 [...] By: Dao Raphael on 08-06-2025 [facility] [address] [place] [address] Internal Medicine Signed Patient: RAYA MCNAIR MR#: [id number] : 1940 Acct:[id number] Age/Sex: 85 / M Date of Service: 08/06/25 [facility] Location: Visit Provider: Dao Raphael Jr, [...] and colleagues, with an educational jena from [employer] HEDIS Measures HEDIS Measures [id number] Patient Diagnosed [...] Systolic <130 Diastolic Blood Pressure: Diastolic 80-89 [facility] Medical History Melanoma Varicocele present [...] mo FU ... labs (04/18) ... 06/19: [facility] dx: post-nasal drip ... 06/28: [facility] ... 07/23: cardioversion ... no [...] joint pain an (more content not included)... [facility] Work Phone: CNOVon 08-02-2025 CNOV Office Visit (DERMST ) -------- RAYA MCNAIR ([id number]) 1940 M Date Time Provider Department 08/02/25 [...] PM Signed Department of Dermatology José Sheikh APRN.[employer] Last visit in Dermatology: 05/10/2025 Objective/Assessment/Kimmie n [...] Alton Sharif (more content not included)... Normal [facility] 12 Lead EKGon 07-23-2025 12 Lead EKG [facility] Cardiovascular Services [address] [place] [address] 12 Lead EKG 07/23/25 1045 MR#: [id number] Acct: [id number] Name: RAYA MCNAIR Rep #: [id number] : 1940 85 From: Parminder Parks MD Attending Dr: Dr. Parminder Parks MD Status: DEP [facility] Ordering Dr: Parminder Parks MD Date: 07/23/25 Location: [facility] Sex: M N Admitted: Test Reason : [...] Present Confirmed by CHARLY MATHEWS, PARMINDER ([id number]), clinical editor YANELIS MELTON ([id number]) on 07/24/2025 6:10:40 AM Referred By: Parminder Parks Confirmed By: PARMINDER PARKS MD 07/24/25 0610 Date Parminder Parks MD CC: Dr. Parminder Parks MD; Dao Raphael Jr., MD Signed Normal [facility] Procedure Reporton Procedure Report [facility] Medical Records Department [address] [place] [address] Procedure Report 07/23/25 1249 MR#: [id number] Acct: [id number] Name: RAYA MCNAIR Rep #: [id number] : 1940 85 From: Gautam Barnes DO PCP: Dao Raphael Jr., MD Status:[employer] Location: [facility] Procedures Pulmonary Pulmonary Procedures /Diagnostic Testin Con Sedation Non-invasive Procedural Procedure Information Date of Procedure: 07/23/25 Description of procedure: CONSCIOUS SEDATION REPORT DATE OF SERVICE: July 23, 2025 BRIEF HISTORY OF PRESENT ILLNESS: The patient is an 85-year-old male who presented to [facility] to undergo an elective outpatient cardioversion [...] DO; Dao Raphael Jr., MD Signed Normal [facility] Procedure Report [facility] Medical Records Department [address] [place] [address] Procedure Report 07/23/25 1237 MR#: [id number] Acct: [id number] Name: RAYA MCNAIR Rep #: [id number] : 1940 85 From: Parminder Parks MD PCP: Dao Raphael Jr., MD Status:[facility] Location: [facility] Non-invasive Procedural Procedure Information Date of Procedure: [...] MD; Dao Raphael Jr., MD Signed Normal [facility] Transferrinon 07-06-2025 Transferrin [Mass/Vol] 198 mg/dL Normal 149-313 [facility] Comment on above: Result Comment: Perf ormed at: - [facility] [address] [id number] Neon Tube Pumper: Kulwinder Schaefer PhD, Phone: [phone] Performed By: #### L 970.5473, P634.5699, L177.8844 #### [facility] [address] [facility] [place], [address] Absolute lymphocyte countOrd ered By: Vernon Prado on 07-05-2025 Lymphocytes Auto (Unsp spec) [#/Vol] 1.37 10*3/uL 0.83-4.51 [facility] Absolute neutrophil countOrd ered By: Vernonquinton Prado on 07-05-2025 Neutrophils (Bld) [#/Vol] 9.0 10*3/uL High 2.0-7.7 [facility] Automated lymphocyte count a s percentage of total leukocytesOrdered By: Vernon Prado on 07-05-2025 Lymphocytes/100 WBC Auto (Unsp spec) 11.8 % Low 19-41 [facility] Basophil percentageOrdered B y: Vernon Prado on 07-05-2025 Basophils/100 WBC (Bld) 0.5 % 0-1 [facility] CBC W/Diff, Automatedon 08-0 7-2024 Absolute Lymph 1.37 X10 3/uL Normal 0.83-4.51 [facility] Comment on above: Performed By: #### L 501.4021, L500.2500, L100.0100 #### [facility] [address] [place], [address] Absolute Neut 9.0 X10 3/uL High 2.0-7.7 [facility] Comment on above: Performed By: #### L 501.4021, L500.2500, L100.0100 #### [facility] [address] [place], [address] Basophils/100 WBC (Bld) 0.5 % Normal 0-1 [facility] Comment on above: Performed By: #### L 501.4021, L500.2500, L100.0100 #### [facility] [address] [place], [address] Eosinophils/100 WBC (Bld) 0.9 % Normal 0-5 [facility] Comment on above: Performed By: #### L 501.4021, L500.2500, L100.0100 #### [facility] [address] [place], [address] Erythrocyte distribution width (RBC) [Ratio] 14.6 % Normal 11.6-14.6 [facility] Comment on above: Performed By: #### L 501.4021, L500.2500, L100.0100 #### [facility] [address] [place], [address] Hematocrit (Bld) [Volume fraction] 35.0 % Low 40-54 [facility] Comment on above: Performed By: #### L 501.4021, L500.2500, L100.0100 #### [facility] [address] [place], [address] Hemoglobin (Bld) [Mass/Vol] 11.1 g/dL Low 13.0-16.5 [facility] Comment on above: Performed By: #### L 501.4021, L500.2500, L100.0100 #### [facility] [address] [place], [address] IG% 0.500 Normal 0.0-0.9 [facility] Comment on above: Result Comment: IG% - Immature Granulocytes (promyelocytes, myelocytes and metamyelocytes) > 1% indicates that a LEFT SHIFT is Present. Performed By: #### L 501.4021, L500.2500, L100.0100 #### [facility] [address] [place], [address] Lymphocytes/100 WBC (Bld) 11.8 % Low 19-41 [facility] Comment on above: Performed By: #### L 501.4021, L500.2500, L100.0100 #### [facility] [address] [place], [address] MCH (RBC) [Entitic mass] 29.4 pg Normal 27.0-32.0 [facility] Comment on above: Performed By: #### L 501.4021, L500.2500, L100.0100 #### [facility] [address] [place], [address] MCHC (RBC) [Mass/Vol] 31.7 g/dL Low 32-36 [facility] Comment on above: Performed By: #### L 501.4021, L500.2500, L100.0100 #### [facility] [address] [place], [address] MCV (RBC) [Entitic vol] 92.6 fL Normal 80-94 [facility] Comment on above: Performed By: #### L 501.4021, L500.2500, L100.0100 #### [facility] [address] [place], [address] Monocytes/100 WBC (Bld) 8.8 % Normal 0-10 [facility] Comment on above: Performed By: #### L 501.4021, L500.2500, L100.0100 #### [facility] [address] [place], [address] Neutrophils/100 WBC (Bld) 77.5 % High 47-70 [facility] Comment on above: Performed By: #### L 501.4021, L500.2500, L100.0100 #### [facility] [address] [place], [address] Nucleated RBC (Bld) [#/Vol] 0 10*3/uL Normal 0-5 [facility] Comment on above: Performed By: #### L 501.4021, L500.2500, L100.0100 #### [facility] [address] [place], [address] Platelet mean volume (Bld) [Entitic vol] 9.8 fL Normal 6.2-12.0 [facility] Comment on above: Performed By: #### L 501.4021, L500.2500, L100.0100 #### [facility] [address] [place], [address] Platelets (Bld) [#/Vol] 301 10*3/uL Normal 150-450 [facility] Comment on above: Performed By: #### L 501.4021, L500.2500, L100.0100 #### [facility] [address] [place], [address] RBC (Bld) [#/Vol] 3.78 10*6/uL Low 4.6-6.2 [facility] Comment on above: Performed By: #### L 501.4021, L500.2500, L100.0100 #### [facility] [address] [place], [address] RDW SD 49.2 fl High 35.1-43.9 [facility] Comment on above: Performed By: #### L 501.4021, L500.2500, L100.0100 #### [facility] [address] [place], [address] WBC (Bld) [#/Vol] 11.6 10*3/uL High 4.4-11.0 [facility] Comment on above: Performed By: #### L 501.4021, L500.2500, L100.0100 #### [facility] [address] 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 - vit A,C,V-Jazv-Plugdu (PRESERVISION AREDS) 7,160 unit- 113 mg-100 unit tab - amlodipine (more content not included)... Normal [facility] Eosinophil percentageOrdered By: Vernon Prado on 07-05-2025 Eosinophils/100 WBC (Bld) 0.9 % 0-5 [facility] Erythrocyte distribution wid th ratioOrdered By: Vernon Prado on 07-05-2025 Erythrocyte distribution width (RBC) [Ratio] 14.6 % 11.6-14.6 [facility] Erythrocyte distribution wid th standard deviationOrdered By: Vernon Prado on 07-05-2025 Erythrocyte distribution width (RBC) [Ratio] 49.2 fl High 35.1-43.9 [facility] Ferritinon 07-05-2025 Ferritin [Mass/Vol] 85 ng/mL Normal 37-417 [facility] Comment on above: Performed By: #### L 501.4021, L500.2500, L100.0100 #### [facility] [address] [place], [address] Hematocrit Auto (Bld) [Volum e fraction]Ordered By: Vernon Prado on 07-05-2025 Hematocrit (Bld) [Volume fraction] 35.0 % Low 40-54 [facility] Hemoglobin measurementOrdere d By: Vernon Prado on 07-05-2025 Hemoglobin (Bld) [Mass/Vol] 11.1 g/dL Low 13.0-16.5 [facility] Immature granulocytes/100 WB C Auto (Bld)Ordered By: Vernon Prado on 07-05-2025 Immature granulocytes/100 WBC (Bld) 0.500 % 0.0-0.9 [facility] Comment on above: IG% - Immature Granu locytes (promyelocytes, myelocytes and metamyelocytes) > 1% indicates that a LEFT SHIFT is Present. Ironon 07-05-2025 Iron [Mass/Vol] 28 ug/dL Low 65-175 [facility] Comment on above: Performed By: #### L 501.4021, L500.2500, L100.0100 #### [facility] [address] [facility] [place], [place], [id number] (446) Iron measurement (mass/mass) Ordered By: Vernon Prado on 07-05-2025 Iron (Unsp spec) [Mass/Mass] 28 ug/dL Low 65-175 [facility] MCV (mean corpuscular volume ) determinationOrdered By: Vernon Prado on 07-05-2025 MCV (RBC) [Entitic vol] 92.6 fL 80-94 [facility] Mean corpuscular hemoglobin (MCH) determinationOrdered By: Vernon Prado on 07-05-2025 MCH (RBC) [Entitic mass] 29.4 pg 27.0-32.0 [facility] Mean corpuscular hemoglobin concentration (MCHC) determinationOrdered By: Vernon Prado on 07-05-2025 MCHC (RBC) [Mass/Vol] 31.7 g/dL Low 32-36 [facility] Mean platelet volume determi nationOrdered By: Vernon Prado on 07-05-2025 Platelet mean volume (Bld) [Entitic vol] 9.8 fL 6.2-12.0 [facility] Monocyte percentageOrdered B y: Vernon Prado on 07-05-2025 Monocytes/100 WBC (Bld) 8.8 % 0-10 [facility] Neutrophil percentageOrdered By: Vernon Prado on 07-05-2025 Neutrophils/100 WBC (Bld) 77.5 % High 47-70 [facility] Nucleated red blood cell per centageOrdered By: Vernon Prado on 07-05-2025 Nucleated RBC/100 WBC (Bld) [Ratio] 0 % 0-5 [facility] Platelet countOrdered By: Ra ely Prado on 07-05-2025 Platelets (Bld) [#/Vol] 301 10*3/uL 150-450 [facility] RBC Auto (Bld) [#/Vol]Ordere d By: Vernon Prado on 07-05-2025 RBC (Bld) [#/Vol] 3.78 10*6/uL Low 4.6-6.2 [facility] Retic Panelon 07-05-2025 IM RET FRACTION 14.70 Normal 3.00-15.90 [facility] Comment on above: Performed By: #### L 501.4021, L500.2500, L100.0100 #### [facility] [place], [address] RET-HE 29.6 pg Low 30-35 [facility] Comment on above: Performed By: #### L 501.4021, L500.2500, L100.0100 #### [facility] [address] [place], [address] Retic Count 2.20 High 0.5-1.5 [facility] Comment on above: Performed By: #### L 501.4021, L500.2500, L100.0100 #### [facility] [address] [place], [address] Reticulocyte hemoglobin equi valent (RET-He) measurementOrdered By: Vernon Prado on 07-05-2025 Hemoglobin (Reticulocytes) [Entitic mass] 29.6 pg Low 30-35 [facility] Reticulocytes Auto (Bld) [#/ Vol]Ordered By: Vernon Prado on 07-05-2025 Reticulocytes/100 RBC (Bld) 2.20 % High 0.5-1.5 [facility] Serum or plasma ferritin silvia surement (mass/volume)Ordered By: Vernon Friend on 07-05-2025 Ferritin [Mass/Vol] 85 ng/mL 37-417 [facility] TransferrinOrdered By: José Miguel baldwin Friend on 07-05-2025 Transferrin [Mass/Vol] 198 mg/dL 149-313 [facility] Comment on above: Performed at: [address] [id number] Director: Kulwinder Schaefer PhD, Phone: [phone] White blood cell (WBC) count Ordered By: Vernon Prado on 07-05-2025 WBC (Bld) [#/Vol] 11.6 10*3/uL High 4.4-11.0 [facility] Cardiology Visit Reporton Cardiology Visit Report [facility] [address] [place], [place] [address] OFFICE VISIT Date of Service: 06/28/25 MR#: [id number] Acct: [id number] Name: RAYA MCNAIR Rep #: [id number] : 1940 Provider: TAO donohue Age/Sex: 85/M Location: [facility] Status: Signed HPI HPI History of Present Illness Surgical H P: Yes Details: Raya Mcnair is an 85-year-old male who presents to the office today for a cardiovascular outpatient follow-up. He was evaluated at [facility] in February 2021 for increasing angina. He underwent a heart catheterization on 03/19/2021 that demonstrated multivessel coronary artery disease. He underwent drug-eluting stent to proximal OM2. He returned to [facility] on 04/03/2021 for a stage PCI and [...] 80 Pulse Source Monitor Intake Visit Reasons: [facility] 06/19 AFIB Base Manager Required: No Is patient in pain?: No [...] HEALTH 03/18/21 0 06/28/25 History mg-copper 1 dw-axlotd-fofunt capsule atorvastatin 40 mg tablet 40 mg [...] the past year?: No PFSH Medical History (Reviewed 06/28/25 @ 13:56 by Charmaine Yuan 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, 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-C) Hyperlipidemia Skin cancer Pneumonia Heart disease Gastrointestinal problem Gall stones Cataract Bone fracture Allergies Type 2 diabetes mellitus Hypertension Celiac disease Anxiety Coronary artery disease Hypertension Atherosclerotic heart disease of [place] coronary artery without angina pectoris Surgical History Hx of melanoma excision History of cho (more content not included)... Normal [facility] Celiac Disease Profileon ENDOMYSIAL IGA Negative Normal Negative [facility] Comment on above: Performed By: #### L 300.8000 #### [facility] [address] [place], [address] tTG IGA <2 Normal 0-3 [facility] Comment on above: Result Comment: Nega tive 0 - 3 Weak Positive 4 - 10 Positive >10 Tissue Transglutaminase (tTG) has been identified as the endomysial antigen. Studies have demonstr- ated that endomysial IgA antibodies have over 99% specificity for gluten sensitive enteropathy. Performed By: #### L 300.8000 #### [facility] [address] [place], [place], [id number] ABIMAEL + Protein Elect, Serumon 06-28-2025 Albumin [Mass/Vol] 3.3 g/dL Normal 2.9-4.4 [facility] Comment on above: Order Comment: N Performed By: #### L 300.8000 #### [facility] [address] [place], [place], [id number] Albumin/Globulin [Mass ratio] 1.2 {ratio} Normal 0.7-1.7 [facility] Comment on above: Order Comment: N Performed By: #### L 300.8000 #### [facility] [address] [place], [address] PRBYK-2-MZMQ 0.3 g/dL Normal 0.0-0.4 [facility] Comment on above: Order Comment: N Performed By: #### L 300.8000 #### [facility] [address] [place], [address] WNQIL-3-DADM 1.0 g/dL Normal 0.4-1.0 [facility] Comment on above: Order Comment: N Performed By: #### L 300.8000 #### [facility] [address] [place], [address] BETA GLOBULIN 0.7 g/dL Normal 0.7-1.3 [facility] Comment on above: Order Comment: N Performed By: #### L 300.8000 #### [facility] [address] [place], [address] GAMMA GLOBULIN 0.8 g/dL Normal 0.4-1.8 [facility] Comment on above: Order Comment: N Performed By: #### L 300.8000 #### [facility] [address] [place], [address] Globulin (S) [Mass/Vol] 2.8 g/dL Normal 2.2-3.9 [facility] Comment on above: Order Comment: N Performed By: #### L 300.8000 #### [facility] [address] [place], [address] ABIMAEL RESULT,S Comment Normal . [facility] Comment on above: Order Comment: N Result Comment: No m onoclonality detected. Performed By: #### L 300.8000 #### [facility] [address] [place], [address] IMMUNOGLOB A QN 102 mg/dL Normal 61-437 [facility] Comment on above: Order Comment: N Performed By: #### L 300.8000 #### [facility] [address] [place], [address] IMMUNOGLOB G QN 866 mg/dL Normal 603-1613 [facility] Comment on above: Order Comment: N Performed By: #### L 300.8000 #### [facility] [address] [place], [address] IMMUNOGLOB M QN 79 mg/dL Normal 15-143 [facility] Comment on above: Order Comment: N Performed By: #### L 300.8000 #### [facility] [address] [place], [address] M-Eladio Not Observed Normal Not Observed [facility] Comment on above: Order Comment: N Performed By: #### L 300.8000 #### [facility] [address] [place], [place], [address] NOTE: Comment Normal . [facility] Comment on above: Order Comment: N Result Comment: Prot ein electrophoresis scan will follow via computer, mail, or parachute harness rigger delivery. Performed at: [facility] [address] [id number] Neon Tube Pumper: Kulwinder Schaefer PhD, Phone: [phone] Performed By: #### L 300.8000 #### [facility] [address] [place], [place], [id number] Protein [Mass/Vol] 6.1 g/dL Normal 6.0-8.5 [facility] Comment on above: Order Comment: N Performed By: #### L 300.8000 #### [facility] [address] [place], [address] Absolute lymphocyte countOrd ered By: Vernon Prado on 06-26-2025 Lymphocytes Auto (Unsp spec) [#/Vol] 1.71 10*3/uL 0.83-4.51 [facility] Absolute neutrophil countOrd ered By: Vernon Prado on 06-26-2025 Neutrophils (Bld) [#/Vol] 7.8 10*3/uL High 2.0-7.7 [facility] Albumin Elph [Mass/Vol]Order ed By: Vernon Prado on 06-26-2025 Albumin [Mass/Vol] 3.3 g/dL 2.9-4.4 [facility] Anion gap in Serum or Plasma Ordered By: Vernonashlee Prado on 06-26-2025 Anion gap [Moles/Vol] 14 mmol/L 5-15 [facility] Automated lymphocyte count a s percentage of total leukocytesOrdered By: Vernonashlee Prado on 06-26-2025 Lymphocytes/100 WBC Auto (Unsp spec) 16.1 % Low 19-41 [facility] BUN/creatinine ratioOrdered By: Vernonashlee Prado on 06-26-2025 Urea nitrogen/Creatinine [Mass ratio] 20.3 mg/mg High 10-20 [facility] Basophil percentageOrdered B y: Vernon Johan on 06-26-2025 Basophils/100 WBC (Bld) 0.6 % 0-1 [facility] Bilirubin, totalOrdered By: Vernonashlee Prado on 06-26-2025 Bilirubin [Mass/Vol] 0.44 mg/dL 0.00-1.30 [facility] CBC W/Diff, Automatedon 05-30 Absolute Lymph 1.71 X10 3/uL Normal 0.83-4.51 [facility] Comment on above: Performed By: #### L 504.2610, L501.39116, L100.0100, L501.6710, L3410.2400, L506.0400, L501.9520, L500.4050, L3100.3425, L101.9900 #### [facility] [address] [place], [place], [id number] Absolute Neut 7.8 X10 3/uL High 2.0-7.7 [facility] Comment on above: Performed By: #### L 504.2610, L501.02273, L100.0100, L501.6710, L3410.2400, L506.0400, L501.9520, L500.4050, L3100.3425, L101.9900 #### [facility] [address] [facility] [place], [address] Basophils/100 WBC (Bld) 0.6 % Normal 0-1 [facility] Comment on above: Performed By: #### L 504.2610, L501.79485, L100.0100, L501.6710, L3410.2400, L506.0400, L501.9520, L500.4050, L3100.3425, L101.9900 #### [facility] [address] [place], [place], [phone] ([phone] Eosinophils/100 WBC (Bld) 1.6 % Normal 0-5 [facility] Comment on above: Performed By: #### L 504.2610, L501.90469, L100.0100, L501.6710, L3410.2400, L506.0400, L501.9520, L500.4050, L3100.3425, L101.9900 #### [facility] [address] [facility] [place], [address] Erythrocyte distribution width (RBC) [Ratio] 13.8 % Normal 11.6-14.6 [facility] Comment on above: Performed By: #### L 504.2610, L501.09025, L100.0100, L501.6710, L3410.2400, L506.0400, L501.9520, L500.4050, L3100.3425, L101.9900 #### [facility] [address] [facility] [place], [address] Hematocrit (Bld) [Volume fraction] 35.8 % Low 40-54 [facility] Comment on above: Performed By: #### L 504.2610, L501.47480, L100.0100, L501.6710, L3410.2400, L506.0400, L501.9520, L500.4050, L3100.3425, L101.9900 #### [facility] [address] [place], [address] Hemoglobin (Bld) [Mass/Vol] 11.9 g/dL Low 13.0-16.5 [facility] Comment on above: Performed By: #### L 504.2610, L501.12009, L100.0100, L501.6710, L3410.2400, L506.0400, L501.9520, L500.4050, L3100.3425, L101.9900 #### [facility] [address] [place], [address] ( IG% 0.400 Normal 0.0-0.9 [facility] Comment on above: Result Comment: IG% - Immature Granulocytes (promyelocytes, myelocytes and metamyelocytes) > 1% indicates that a LEFT SHIFT is Present. Performed By: #### L 504.2610, L501.45041, L100.0100, L501.6710, L3410.2400, L506.0400, L501.9520, L500.4050, L3100.3425, L101.9900 #### [facility] [address] [place], [address] Lymphocytes/100 WBC (Bld) 16.1 % Low 19-41 [facility] Comment on above: Performed By: #### L 504.2610, L501.54782, L100.0100, L501.6710, L3410.2400, L506.0400, L501.9520, L500.4050, L3100.3425, L101.9900 #### [facility] [address] [place], [address] MCH (RBC) [Entitic mass] 30.5 pg Normal 27.0-32.0 [facility] Comment on above: Performed By: #### L 504.2610, L501.77711, L100.0100, L501.6710, L3410.2400, L506.0400, L501.9520, L500.4050, L3100.3425, L101.9900 #### [facility] [address] [place], [address] MCHC (RBC) [Mass/Vol] 33.2 g/dL Normal 32-36 [facility] Comment on above: Performed By: #### L 504.2610, L501.81002, L100.0100, L501.6710, L3410.2400, L506.0400, L501.9520, L500.4050, L3100.3425, L101.9900 #### [facility] [address] [place], [place], [phone] (133) MCV (RBC) [Entitic vol] 91.8 fL Normal 80-94 [facility] Comment on above: Performed By: #### L 504.2610, L501.19339, L100.0100, L501.6710, L3410.2400, L506.0400, L501.9520, L500.4050, L3100.3425, L101.9900 #### [facility] [address] [place], [address] Monocytes/100 WBC (Bld) 7.5 % Normal 0-10 [facility] Comment on above: Performed By: #### L 504.2610, L501.14831, L100.0100, L501.6710, L3410.2400, L506.0400, L501.9520, L500.4050, L3100.3425, L101.9900 #### [facility] [address] [place], [address] Neutrophils/100 WBC (Bld) 73.8 % High 47-70 [facility] Comment on above: Performed By: #### L 504.2610, L501.15771, L100.0100, L501.6710, L3410.2400, L506.0400, L501.9520, L500.4050, L3100.3425, L101.9900 #### [facility] [address] [place], [address] Nucleated RBC (Bld) [#/Vol] 0 10*3/uL Normal 0-5 [facility] Comment on above: Performed By: #### L 504.2610, L501.56042, L100.0100, L501.6710, L3410.2400, L506.0400, L501.9520, L500.4050, L3100.3425, L101.9900 #### [facility] [address] [place], [place], [phone] (768) Platelet mean volume (Bld) [Entitic vol] 10.0 fL Normal 6.2-12.0 [facility] Comment on above: Performed By: #### L 504.2610, L501.13609, L100.0100, L501.6710, L3410.2400, L506.0400, L501.9520, L500.4050, L3100.3425, L101.9900 #### [facility] [address] [place], [address] Platelets (Bld) [#/Vol] 349 10*3/uL Normal 150-450 [facility] Comment on above: Performed By: #### L 504.2610, L501.27217, L100.0100, L501.6710, L3410.2400, L506.0400, L501.9520, L500.4050, L3100.3425, L101.9900 #### [facility] [address] [place], [address] RBC (Bld) [#/Vol] 3.90 10*6/uL Low 4.6-6.2 [facility] Comment on above: Performed By: #### L 504.2610, L501.64067, L100.0100, L501.6710, L3410.2400, L506.0400, L501.9520, L500.4050, L3100.3425, L101.9900 #### [facility] [address] [place], [address] RDW SD 46.5 fl High 35.1-43.9 [facility] Comment on above: Performed By: #### L 504.2610, L501.85480, L100.0100, L501.6710, L3410.2400, L506.0400, L501.9520, L500.4050, L3100.3425, L101.9900 #### [facility] [address] [facility] [place], [place], [id number] WBC (Bld) [#/Vol] 10.6 10*3/uL Normal 4.4-11.0 [facility] Comment on above: Performed By: #### L 504.2610, L501.99210, L100.0100, L501.6710, L3410.2400, L506.0400, L501.9520, L500.4050, L3100.3425, L101.9900 #### [facility] [address] [place], [address] CRPon 06-26-2025 C-REACTIVE PROT 18.00 mg/L High 0.0-3.0 [facility] Comment on above: Performed By: #### L 300.8000 #### [facility] [address] [facility] [facility] [place], [place], [id number] Carbon dioxide, total [Moles /volume] in Central venous bloodOrdered By: Vernon Prado on 06-26-2025 CO2 [Moles/Vol] 22.7 mmol/L 21.0-32.0 [facility] Chloride assayOrdered By: Ra ely Prado on 06-26-2025 Chloride [Moles/Vol] 103 mmol/L 98-108 [facility] Comprehensive Metabolic Prof ilon 06-26-2025 Albumin [Mass/Vol] 3.7 g/dL Normal 3.4-4.8 [facility] Comment on above: Performed By: #### L 504.2610, L501.48777, L100.0100, L501.6710, L3410.2400, L506.0400, L501.9520, L500.4050, L3100.3425, L101.9900 #### [facility] [address] [place], [place], [phone] (793) Albumin/Globulin [Mass ratio] 1.4 {ratio} Normal 0.9-2.4 [facility] Comment on above: Performed By: #### L 504.2610, L501.24920, L100.0100, L501.6710, L3410.2400, L506.0400, L501.9520, L500.4050, L3100.3425, L101.9900 #### [facility] [address] [place], [place], [id number] ALK PHOS 92 U/L Normal 40-129 [facility] Comment on above: Performed By: #### L 504.2610, L501.76506, L100.0100, L501.6710, L3410.2400, L506.0400, L501.9520, L500.4050, L3100.3425, L101.9900 #### [facility] [address] [place], [address] ALT [Catalytic activity/Vol] 12 U/L Normal <=46 [facility] Comment on above: Performed By: #### L 504.2610, L501.60113, L100.0100, L501.6710, L3410.2400, L506.0400, L501.9520, L500.4050, L3100.3425, L101.9900 #### [facility] [address] [place], [address] AST [Catalytic activity/Vol] 12 U/L Normal <=37 [facility] Comment on above: Performed By: #### L 504.2610, L501.72158, L100.0100, L501.6710, L3410.2400, L506.0400, L501.9520, L500.4050, L3100.3425, L101.9900 #### [facility] [address] [place], [address] Bilirubin [Mass/Vol] 0.44 mg/dL Normal 0.00-1.30 [facility] Comment on above: Performed By: #### L 504.2610, L501.56381, L100.0100, L501.6710, L3410.2400, L506.0400, L501.9520, L500.4050, L3100.3425, L101.9900 #### [facility] [address] [place], [place], [phone] (534) BUN/CRE 20.3 RATIO High 10-20 [facility] Comment on above: Performed By: #### L 504.2610, L501.90900, L100.0100, L501.6710, L3410.2400, L506.0400, L501.9520, L500.4050, L3100.3425, L101.9900 #### [facility] [address] [place], [address] Calcium [Mass/Vol] 9.1 mg/dL Normal 7.6-11.0 [facility] Comment on above: Performed By: #### L 504.2610, L501.30303, L100.0100, L501.6710, L3410.2400, L506.0400, L501.9520, L500.4050, L3100.3425, L101.9900 #### [facility] [address] [place], [place], [phone] (957) Chloride [Moles/Vol] 103 mmol/L Normal 98-108 [facility] Comment on above: Performed By: #### L 504.2610, L501.95934, L100.0100, L501.6710, L3410.2400, L506.0400, L501.9520, L500.4050, L3100.3425, L101.9900 #### [facility] [address] [place], [place], [phone] (139) CO2 [Moles/Vol] 22.7 mmol/L Normal 21.0-32.0 [facility] Comment on above: Performed By: #### L 504.2610, L501.21690, L100.0100, L501.6710, L3410.2400, L506.0400, L501.9520, L500.4050, L3100.3425, L101.9900 #### [facility] [address] [facility] [address] [place], [place], [id number] Creatinine [Mass/Vol] 1.15 mg/dL Normal 0.70-1.20 [facility] Comment on above: Performed By: #### L 504.2610, L501.52848, L100.0100, L501.6710, L3410.2400, L506.0400, L501.9520, L500.4050, L3100.3425, L101.9900 #### [facility] [address] [place], [place], [phone] (091) GAP 14 Normal 5-15 [facility] Comment on above: Performed By: #### L 504.2610, L501.62704, L100.0100, L501.6710, L3410.2400, L506.0400, L501.9520, L500.4050, L3100.3425, L101.9900 #### [facility] [address] [place], [address] GFR/1.73 sq M.predicted among non-blacks MDRD (S/P/Bld) [Vol rate/Area] 62 mL/min/{1.73_m2} Normal >60 [facility] Comment on above: Result Comment: mL/m in/1.73m2 CKD-EPI Creatinine Equation (2020) Performed By: #### L 504.2610, L501.12017, L100.0100, L501.6710, L3410.2400, L506.0400, L501.9520, L500.4050, L3100.3425, L101.9900 #### [facility] [address] [place], [address] Globulin (S) [Mass/Vol] 2.8 g/dL Normal 2.2-4.2 [facility] Comment on above: Performed By: #### L 504.2610, L501.43459, L100.0100, L501.6710, L3410.2400, L506.0400, L501.9520, L500.4050, L3100.3425, L101.9900 #### [facility] [address] [place], [address] Glucose [Mass/Vol] 115 mg/dL High 70-99 [facility] Comment on above: Performed By: #### L 504.2610, L501.30249, L100.0100, L501.6710, L3410.2400, L506.0400, L501.9520, L500.4050, L3100.3425, L101.9900 #### [facility] [address] [place], [address] Potassium [Moles/Vol] 4.1 mmol/L Normal 3.3-5.1 [facility] Comment on above: Performed By: #### L 504.2610, L501.71584, L100.0100, L501.6710, L3410.2400, L506.0400, L501.9520, L500.4050, L3100.3425, L101.9900 #### [facility] [address] [place], [place], [phone] (711) Sodium [Moles/Vol] 139 mmol/L Normal 133-145 [facility] Comment on above: Performed By: #### L 504.2610, L501.90951, L100.0100, L501.6710, L3410.2400, L506.0400, L501.9520, L500.4050, L3100.3425, L101.9900 #### [facility] [address] [place], [place], [phone] (466) T PROT 6.5 g/dL Normal 5.9-8.4 [facility] Comment on above: Performed By: #### L 504.2610, L501.57448, L100.0100, L501.6710, L3410.2400, L506.0400, L501.9520, L500.4050, L3100.3425, L101.9900 #### [facility] [address] [place], [place], [id number] (091) Urea nitrogen [Mass/Vol] 23 mg/dL High 4-19 [facility] Comment on above: Performed By: #### L 504.2610, L501.17409, L100.0100, L501.6710, L3410.2400, L506.0400, L501.9520, L500.4050, L3100.3425, L101.9900 #### [facility] [address] [place], [place], [phone] (678) Eosinophil percentageOrdered By: Vernon Prado on 06-26-2025 Eosinophils/100 WBC (Bld) 1.6 % 0-5 [facility] Erythrocyte Sed Rateon 06-26 SED RATE 11 mm/hr Normal 0-20 [facility] Comment on above: Performed By: #### L 504.2610, L501.35796, L100.0100, L501.6710, L3410.2400, L506.0400, L501.9520, L500.4050, L3100.3425, L101.9900 #### [facility] [address] [place], [place], [id number] Erythrocyte distribution wid th ratioOrdered By: Vernon Prado on 06-26-2025 Erythrocyte distribution width (RBC) [Ratio] 13.8 % 11.6-14.6 [facility] Erythrocyte distribution wid th standard deviationOrdered By: Vernon Prado on 06-26-2025 Erythrocyte distribution width (RBC) [Ratio] 46.5 fl High 35.1-43.9 [facility] Erythrocyte sedimentation ra teOrdered By: Vernon Prado on 06-26-2025 ESR (Bld) [Velocity] 11 mm/h 0-20 [facility] Free T3on 06-26-2025 Free T3 [Mass/Vol] 2.8 pg/mL Normal 2.18-3.98 [facility] Comment on above: Performed By: #### L 300.8000 #### [facility] [address] [place], [place], [id number] Free H7Ylmfnuh By: Vernon fletcher on 06-26-2025 Free T3 [Mass/Vol] 2.8 pg/mL 2.18-3.98 [facility] Gastroenterology Visit Repor ton 06-26-2025 Gastroenterology Visit Report [facility] [address] [place] [address] OFFICE VISIT Date of Service: 06/26/25 MR#: [id number] Acct: [id number] Name: RAYA MCNAIR Rep #: [id number] : 1940 Provider: Vernon Prado DO Age/Sex: 85/M [place] [facility] [place]: [place] Intake Vital Signs 12/26/24 09:47 [...] HEALTH 03/18/21 0 06/26/25 History mg-copper 1 vh-tsoolz-zvrsyx capsule atorvastatin 40 mg tablet 40 mg [...] artery disease Hypertension 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 Morning diarrhea 1-2 times a day with watery stools for many years without abdominal pain, mucus, blood or incontinence; previously diagnosed with celiac (does not follow celiac diet), unable to identify triggers. 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 ?Bio chemical???T3, ABIMAEL, IgGAM, celiac, ANCA, LUCAS comp, ESR, CBC, TSH, LDH, CMP (AST L11/AlkP H118), Vit B12 without pertinent abnormality. CRP H5.90, IgE L4, Crohn???s (apANCA, Oneal, ALCA, AMCA). Stool calprotectin, enteric pathogen, lactoferrin, C.Difficile, fecal f (more content not included)... Normal [facility] Glomerular filtration rate ( GFR) estimation/1.73 sq m using serum, plasma, or whole bOrdered By: Vernon Prado on 06-26-2025 GFR/1.73 sq M.predicted among non-blacks MDRD (S/P/Bld) [Vol rate/Area] 62 mL/min/{1.73_m2} >60 [facility] Comment on above: mL/min/1.73m2 CKD-EP I Creatinine Equation (2020) Hematocrit Auto (Bld) [Volum e fraction]Ordered By: Vernon Prado on 06-26-2025 Hematocrit (Bld) [Volume fraction] 35.8 % Low 40-54 [facility] Hemoglobin measurementOrdere d By: Vernon Prado on 06-26-2025 Hemoglobin (Bld) [Mass/Vol] 11.9 g/dL Low 13.0-16.5 [facility] Immature granulocytes/100 WB C Auto (Bld)Ordered By: Vernon Prado on 06-26-2025 Immature granulocytes/100 WBC (Bld) 0.400 % 0.0-0.9 [facility] Comment on above: IG% - Immature Granu locytes (promyelocytes, myelocytes and metamyelocytes) > 1% indicates that a LEFT SHIFT is Present. Interpretation of serum or p lasma protein pattern by immunofixation (narrative resultOrdered By: Vernon Prado on 06-26-2025 Protein Fractions Immunofixation Matheus [Interp] Not Observed g/dL Not Observed [facility] LDHon 06-26-2025 LDH 210 U/L Normal 87-241 [facility] Comment on above: Order Comment: 1 Performed By: #### L 300.8000 #### [facility] [address] [place], [address] Laboratory - Chemistry and C hemistry - challengeOrdered By: Vernon Prado on 06-26-2025 AST [Catalytic activity/Vol] 12 U/L <38 [facility] Lactate dehydrogenase (LDH) measurementOrdered By: Vernon Prado on 06-26-2025 LDH [Catalytic activity/Vol] 210 U/L 87-241 [facility] MCV (mean corpuscular volume ) determinationOrdered By: Vernon Prado on 06-26-2025 MCV (RBC) [Entitic vol] 91.8 fL 80-94 [facility] Mean corpuscular hemoglobin (MCH) determinationOrdered By: Vernon Prado on 06-26-2025 MCH (RBC) [Entitic mass] 30.5 pg 27.0-32.0 [facility] Mean corpuscular hemoglobin concentration (MCHC) determinationOrdered By: Vernon Prado on 06-26-2025 MCHC (RBC) [Mass/Vol] 33.2 g/dL 32-36 [facility] Mean platelet volume determi nationOrdered By: Vernon Prado on 06-26-2025 Platelet mean volume (Bld) [Entitic vol] 10.0 fL 6.2-12.0 [facility] Monocyte percentageOrdered B y: Vernon Prado on 06-26-2025 Monocytes/100 WBC (Bld) 7.5 % 0-10 [facility] Neutrophil percentageOrdered By: Vernon Praod on 06-26-2025 Neutrophils/100 WBC (Bld) 73.8 % High 47-70 [facility] No Panel InformationOrdered By: Vernon Prado on 06-26-2025 Addendum Document Comment . [facility] Comment on above: Protein electrophore sis scan will follow via computer,mail, or parachute harness rigger delivery.Performed at: [facility] [address] [id number] Director: Kulwinder Schaefer PhD, Phone: [phone] Nucleated red blood cell per centageOrdered By: Vernon Prado on 06-26-2025 Nucleated RBC/100 WBC (Bld) [Ratio] 0 % 0-5 [facility] Platelet countOrdered By: Ra ely Prado on 06-26-2025 Platelets (Bld) [#/Vol] 349 10*3/uL 150-450 [facility] Potassium measurement (mass/ volume)Ordered By: Vernon Prado on 06-26-2025 Potassium (Unsp spec) [Mass/Vol] 4.1 mmol/L 3.3-5.1 [facility] RBC Auto (Bld) [#/Vol]Ordere d By: Vernon Prado on 06-26-2025 RBC (Bld) [#/Vol] 3.90 10*6/uL Low 4.6-6.2 [facility] Serum creatinine measurement (mass/volume)Ordered By: Vernon Prado on 06-26-2025 Creatinine [Mass/Vol] 1.15 mg/dL 0.70-1.20 [facility] Serum globulin measurement ( mass/volume)Ordered By: Vernon Prado on 06-26-2025 Globulin (S) [Mass/Vol] 2.8 g/dL 2.2-3.9 [facility] Serum glucose measurement (m ass/volume)Ordered By: Vernon Prado on 06-26-2025 Glucose [Mass/Vol] 115 mg/dL High 70-99 [facility] Serum or plasma C reactive p rotein measurement (mass/volume)Ordered By: Vernon Prado on 06-26-2025 CRP [Mass/Vol] 18.00 mg/L High 0.0-3.0 [facility] Serum or plasma IgA measurem ent (mass/volume)Ordered By: Vernon Prado on 06-26-2025 IgA [Mass/Vol] 102 mg/dL 61-437 [facility] Serum or plasma IgG measurem ent (mass/volume)Ordered By: Vernon Prado on 06-26-2025 IgG [Mass/Vol] 866 mg/dL 603-1613 [facility] Serum or plasma alanine hamm otransferase (ALT) measurementOrdered By: Vernon Prado on 06-26-2025 ALT [Catalytic activity/Vol] 12 U/L <47 [facility] Serum or plasma albumin nii urement (mass/volume)Ordered By: Vernon Prado on 06-26-2025 Albumin [Mass/Vol] 3.7 g/dL 3.4-4.8 [facility] Serum or plasma albumin/glob ulin mass ratioOrdered By: Vernon Prado on 06-26-2025 Albumin/Globulin [Mass ratio] 1.4 {ratio} 0.9-2.4 [facility] Serum or plasma alkaline chelsea sphatase measurementOrdered By: Vernon Prado on 06-26-2025 ALP [Catalytic activity/Vol] 92 U/L 40-129 [facility] Serum or plasma alpha 1 glob ulin measurement by electrophoresis (mass/volume)Ordered By: Vernon Prado on 06-26-2025 Alpha 1 globulin Elph [Mass/Vol] 0.3 g/dL 0.0-0.4 [facility] Alpha 1 globulin Elph [Mass/Vol] 1.0 g/dL 0.4-1.0 [facility] Serum or plasma beta globuli n measurement by electrophoresis (mass/volume)Ordered By: Vernon Prado on 06-26-2025 Beta globulin Elph [Mass/Vol] 0.7 g/dL 0.7-1.3 [facility] Serum or plasma calcium nii urement (mass/volume)Ordered By: Vernon Prado on 06-26-2025 Calcium [Mass/Vol] 9.1 mg/dL 7.6-11.0 [facility] Serum or plasma gamma globul in measurement by electrophoresis (mass/volume)Ordered By: Vernon Prado on 06-26-2025 Gamma globulin Elph [Mass/Vol] 0.8 g/dL 0.4-1.8 [facility] Serum or plasma immunoelectr ophoresis interpretation (nominal result)Ordered By: Vernon Prado on 06-26-2025 Interpretation IEP [Interp] Comment . [facility] Comment on above: No monoclonality det ected. Serum or plasma protein nii urement (mass/volume)Ordered By: Vernon Prado on 06-26-2025 Protein [Mass/Vol] 6.1 g/dL 6.0-8.5 [facility] Serum or plasma urea nitroge n measurement (mass/volume)Ordered By: Vernon Prado on 06-26-2025 Urea nitrogen [Mass/Vol] 23 mg/dL High 4-19 [facility] Serum tissue transglutaminas e (tTG) IgA antibody assay (units/volume)Ordered By: Vernon Prado on 06-26-2025 tTG IgA Qn (S) <2 U/mL 0-3 [facility] Comment on above: Negative 0 - 3 Weak Positive 4 - 10 Positive >10 Tissue Transglutaminase (tTG) has been identified as the endomysial antigen. Studies have demonstr- ated that endomysial IgA antibodies have over 99% specificity for gluten sensitive enteropathy. Sodium levelOrdered By: Lopez Monahan on 06-26-2025 Sodium [Moles/Vol] 139 mmol/L 133-145 [facility] T4 Free Directon 06-26-2025 T4 FREE DIRECT 1.50 ng/dL High 0.76-1.46 [facility] Comment on above: Performed By: #### L 300.8000 #### [facility] [address] [place], [place], [id number] T4 freeOrdered By: Vernon fletcher on 06-26-2025 Free T4 [Mass/Vol] 1.50 ng/dL High 0.76-1.46 [facility] TSH DL <= 0.005 mIU/L QnOrde red By: Vernon Prado on 06-26-2025 TSH Qn 1.600 uIU/mL 0.300-4.200 [facility] Thyroid Stim Hormone (TSH)on 06-26-2025 TSH 1.600 uIU/mL Normal 0.300-4.200 [facility] Comment on above: Performed By: #### L 300.8000 #### [facility] [address] [place], [place], [address] Total proteinOrdered By: Gm Prado on 06-26-2025 Protein [Mass/Vol] 6.5 g/dL 5.9-8.4 [facility] White blood cell (WBC) count Ordered By: Vernon Prado on 06-26-2025 WBC (Bld) [#/Vol] 10.6 10*3/uL 4.4-11.0 [facility] 12 Lead EKGon 06-19-2025 12 Lead EKG [facility] Cardiovascular Services [address] [place] [address] 12 Lead EKG 06/19/25 1856 MR#: [id number] Acct: [id number] Name: RAYA MCNAIR Rep #: [id number] : 1940 85 From: Kris Locke MD [...] fibrillation Abnormal ECG Confirmed by Kris Locke ([id number]), clinical editor MALIK JAIME ([id number]) on 06/20/2025 1:53:51 PM Referred By: BRENT Confirmed By: Kris Locke 06/20/25 1353 Date Kris Locke MD CC: Dr. Luis Velasquez DO; Dao Raphael Jr., MD Signed Normal [facility] 12 Lead EKG [facility] Cardiovascular Services [address] [place] [address] 12 Lead EKG 06/19/25 1627 MR#: [id number] Acct: [id number] Name: RAYA MCNAIR Rep #: [id number] : 1940 85 From: Kris Locke MD [...] abnormality Abnormal ECG Confirmed by Kris Locke ([id number]), clinical editor MALIK JAIME ([id number]) on 06/20/2025 1:55:13 PM Referred By: Confirmed By: Kris Locke 06/20/25 1355 Date Kris Locke MD CC: Dr. Luis Velasquez DO; Dao Raphael Jr., MD Signed Normal [facility] Absolute lymphocyte countOrd ered By: Luis Velasquez on 06-19-2025 Lymphocytes Auto (Unsp spec) [#/Vol] 2.34 10*3/uL 0.83-4.51 [facility] Absolute neutrophil countOrd ered By: Luis Velasquez on 06-19-2025 Neutrophils (Bld) [#/Vol] 7.3 10*3/uL 2.0-7.7 [facility] Activated partial thrombopla stin time (aPTT) in platelet poor plasma by coagulation aOrdered By: Luis Velasquez on 06-19-2025 aPTT Coag (PPP) [Time] 26.9 s 24.1-36.2 [facility] Anion gap in Serum or Plasma Ordered By: Luis Velasquez on 06-19-2025 Anion gap [Moles/Vol] 15 mmol/L 5-15 [facility] Automated lymphocyte count a s percentage of total leukocytesOrdered By: Luis Velasquez on 06-19-2025 Lymphocytes/100 WBC Auto (Unsp spec) 21.7 % 19-41 [facility] BUN/creatinine ratioOrdered By: Luis Velasquez on 06-19-2025 Urea nitrogen/Creatinine [Mass ratio] 21.9 mg/mg High 10- [facility] Basic Metabolic Profile (BMP )on 06-19-2025 BUN/CRE 21.9 RATIO High - [facility] Comment on above: Performed By: #### L 499.0043 #### [facility] [address] [place], [address] Calcium [Mass/Vol] 9.2 mg/dL Normal 7.6-11.0 [facility] Comment on above: Performed By: #### L 499.0043 #### [facility] [address] [place], [address] Chloride [Moles/Vol] 103 mmol/L Normal 98-108 [facility] Comment on above: Performed By: #### L 499.0043 #### [facility] [address] [place], [address] CO2 [Moles/Vol] 22.2 mmol/L Normal 21.0-32.0 [facility] Comment on above: Performed By: #### L 499.0043 #### [facility] [address] [place], [address] Creatinine [Mass/Vol] 1.06 mg/dL Normal 0.70-1.20 [facility] Comment on above: Performed By: #### L 499.0043 #### [facility] [address] [place], [address] ECRCL 62.15 ml/min Normal 50-250 [facility] Comment on above: Performed By: #### L 499.0043 #### [facility] [address] [place], [address] GAP 15 Normal 5-15 [facility] Comment on above: Performed By: #### L 499.0043 #### [facility] [address] [place], [address] GFR/1.73 sq M.predicted among non-blacks MDRD (S/P/Bld) [Vol rate/Area] 69 mL/min/{1.73_m2} Normal >60 [facility] Comment on above: Result Comment: mL/m in/1.73m2 CKD-EPI Creatinine Equation (2020) Performed By: #### L 499.0043 #### [facility] [address] [place], [address] Glucose [Mass/Vol] 105 mg/dL High 70-99 [facility] Comment on above: Performed By: #### L 499.0043 #### [facility] [address] [place], [address] Potassium [Moles/Vol] 3.6 mmol/L Normal 3.3-5.1 [facility] Comment on above: Performed By: #### L 499.0043 #### [facility] [address] [place], [address] Sodium [Moles/Vol] 140 mmol/L Normal 133-145 [facility] Comment on above: Performed By: #### L 499.0043 #### [facility] [address] [place], [address] Urea nitrogen [Mass/Vol] 23 mg/dL High 4-19 [facility] Comment on above: Performed By: #### L 499.0043 #### [facility] [address] [place], [address] BUN Normal 4-19 [facility] Comment on above: Result Comment: LELE ENT DISCHARGED Performed By: #### L 501.4021, L500.2500, L100.0100 #### [facility] [address] [place], [address] BUN/CRE Normal 10-20 [facility] Comment on above: Result Comment: LELE ENT DISCHARGED Performed By: #### L 501.4021, L500.2500, L100.0100 #### [facility] [address] [place], [address] Calcium Normal 7.6-11.0 [facility] Comment on above: Result Comment: LELE ENT DISCHARGED Performed By: #### L 501.4021, L500.2500, L100.0100 #### [facility] [address] [place], [address] CL Normal 98-108 [facility] Comment on above: Result Comment: LELE ENT DISCHARGED Performed By: #### L 501.4021, L500.2500, L100.0100 #### [facility] [address] [place], [address] CO2 Normal 21.0-32.0 [facility] Comment on above: Result Comment: LELE ENT DISCHARGED Performed By: #### L 501.4021, L500.2500, L100.0100 #### [facility] [address] [place], [address] CREAT,SERUM Normal 0.70-1.20 [facility] Comment on above: Result Comment: LELE ENT DISCHARGED Performed By: #### L 501.4021, L500.2500, L100.0100 #### [facility] [address] [place], [address] eGFR Normal >60 [facility] Comment on above: Result Comment: LELE ENT DISCHARGED Performed By: #### L 501.4021, L500.2500, L100.0100 #### [facility] [address] [place], [address] GAP Normal 5-15 [facility] Comment on above: Result Comment: LELE ENT DISCHARGED Performed By: #### L 501.4021, L500.2500, L100.0100 #### [facility] [address] [place], [address] GLU Normal 70-99 [facility] Comment on above: Result Comment: LELE ENT DISCHARGED Performed By: #### L 501.4021, L500.2500, L100.0100 #### [facility] [address] [place], [address] Potassium Normal 3.3-5.1 [facility] Comment on above: Result Comment: LELE ENT DISCHARGED Performed By: #### L 501.4021, L500.2500, L100.0100 #### [facility] [address] [place], [address] Basic Metabolic Profile (BMP) Normal 133-145 [facility] Comment on above: Result Comment: LELE ENT DISCHARGED Performed By: #### L 501.4021, L500.2500, L100.0100 #### [facility] [address] [place], [address] Basophil percentageOrdered B y: Luis Eva on 06-19-2024 Basophils/100 WBC (Bld) 0.6 % 0-1 [facility] CBC W/Diff, Automatedon 05-30 Absolute Neut Normal 2.0-7.7 [facility] Comment on above: Result Comment: LELE ENT DISCHARGED Performed By: #### L 501.4021, L500.2500, L100.0100 #### [facility] [address] [place], [address] HCT Normal 40-54 [facility] Comment on above: Result Comment: LELE ENT DISCHARGED Performed By: #### L 501.4021, L500.2500, L100.0100 #### [facility] [address] [place], [address] HGB Normal 13.0-16.5 [facility] Comment on above: Result Comment: LELE ENT DISCHARGED Performed By: #### L 501.4021, L500.2500, L100.0100 #### [facility] [address] [place], [address] MCH Normal 27.0-32.0 [facility] Comment on above: Result Comment: LELE ENT DISCHARGED Performed By: #### L 501.4021, L500.2500, L100.0100 #### [facility] [address] [place], [address] MCHC Normal 32-36 [facility] Comment on above: Result Comment: LELE ENT DISCHARGED Performed By: #### L 501.4021, L500.2500, L100.0100 #### [facility] [address] [place], [address] MCV Normal 80-94 [facility] Comment on above: Result Comment: LELE ENT DISCHARGED Performed By: #### L 501.4021, L500.2500, L100.0100 #### [facility] [address] [place], [address] NEUT% Normal 47-70 [facility] Comment on above: Result Comment: LELE ENT DISCHARGED Performed By: #### L 501.4021, L500.2500, L100.0100 #### [facility] [address] [place], [address] PLT Normal 150-450 [facility] Comment on above: Result Comment: LELE ENT DISCHARGED Performed By: #### L 501.4021, L500.2500, L100.0100 #### [facility] [address] [place], [address] RBC Normal 4.6-6.2 [facility] Comment on above: Result Comment: LELE ENT DISCHARGED Performed By: #### L 501.4021, L500.2500, L100.0100 #### [facility] [address] [place], [address] RDW CV Normal 11.6-14.6 [facility] Comment on above: Result Comment: LELE ENT DISCHARGED Performed By: #### L 501.4021, L500.2500, L100.0100 #### [facility] [address] [place], [address] RDW SD Normal 35.1-43.9 [facility] Comment on above: Result Comment: LELE ENT DISCHARGED Performed By: #### L 501.4021, L500.2500, L100.0100 #### [facility] [address] [place], [address] WBC Normal 4.4-11.0 [facility] Comment on above: Result Comment: LELE ENT DISCHARGED Performed By: #### L 501.4021, L500.2500, L100.0100 #### [facility] [address] [place], [address] Absolute Lymph 2.34 X10 3/uL Normal 0.83-4.51 [facility] Comment on above: Performed By: #### L 501.4021, L500.2500, L100.0100 #### [facility] [address] [place], [address] Absolute Neut 7.3 X10 3/uL Normal 2.0-7.7 [facility] Comment on above: Performed By: #### L 501.4021, L500.2500, L100.0100 #### [facility] [address] [place], [address] Basophils/100 WBC (Bld) 0.6 % Normal 0-1 [facility] Comment on above: Performed By: #### L 501.4021, L500.2500, L100.0100 #### [facility] [address] [place], [address] Eosinophils/100 WBC (Bld) 2.2 % Normal 0-5 [facility] Comment on above: Performed By: #### L 501.4021, L500.2500, L100.0100 #### [facility] [address] [place], [address] Erythrocyte distribution width (RBC) [Ratio] 13.6 % Normal 11.6-14.6 [facility] Comment on above: Performed By: #### L 501.4021, L500.2500, L100.0100 #### [facility] [address] [place], [address] Hematocrit (Bld) [Volume fraction] 40.5 % Normal 40-54 [facility] Comment on above: Performed By: #### L 501.4021, L500.2500, L100.0100 #### [facility] [address] [place], [address] Hemoglobin (Bld) [Mass/Vol] 13.4 g/dL Normal 13.0-16.5 [facility] Comment on above: Performed By: #### L 501.4021, L500.2500, L100.0100 #### [facility] [address] [place], [address] IG% 0.400 Normal 0.0-0.9 [facility] Comment on above: Result Comment: IG% - Immature Granulocytes (promyelocytes, myelocytes and metamyelocytes) > 1% indicates that a LEFT SHIFT is Present. Performed By: #### L 501.4021, L500.2500, L100.0100 #### [facility] [address] [place], [address] Lymphocytes/100 WBC (Bld) 21.7 % Normal 19-41 [facility] Comment on above: Performed By: #### L 501.4021, L500.2500, L100.0100 #### [facility] [address] [place], [address] MCH (RBC) [Entitic mass] 29.9 pg Normal 27.0-32.0 [facility] Comment on above: Performed By: #### L 501.4021, L500.2500, L100.0100 #### [facility] [address] [place], [address] MCHC (RBC) [Mass/Vol] 33.1 g/dL Normal 32-36 [facility] Comment on above: Performed By: #### L 501.4021, L500.2500, L100.0100 #### [facility] [address] [place], [address] MCV (RBC) [Entitic vol] 90.4 fL Normal 80-94 [facility] Comment on above: Performed By: #### L 501.4021, L500.2500, L100.0100 #### [facility] [address] [place], [address] Monocytes/100 WBC (Bld) 7.6 % Normal 0-10 [facility] Comment on above: Performed By: #### L 501.4021, L500.2500, L100.0100 #### [facility] [address] [place], [address] Neutrophils/100 WBC (Bld) 67.5 % Normal 47-70 [facility] Comment on above: Performed By: #### L 501.4021, L500.2500, L100.0100 #### [facility] [address] [place], [address] Nucleated RBC (Bld) [#/Vol] 0 10*3/uL Normal 0-5 [facility] Comment on above: Performed By: #### L 501.4021, L500.2500, L100.0100 #### [facility] [address] [place], [address] Platelet mean volume (Bld) [Entitic vol] 9.9 fL Normal 6.2-12.0 [facility] Comment on above: Performed By: #### L 501.4021, L500.2500, L100.0100 #### [facility] [address] [place], [address] Platelets (Bld) [#/Vol] 313 10*3/uL Normal 150-450 [facility] Comment on above: Performed By: #### L 501.4021, L500.2500, L100.0100 #### [facility] [address] [place], [address] RBC (Bld) [#/Vol] 4.48 10*6/uL Low 4.6-6.2 [facility] Comment on above: Performed By: #### L 501.4021, L500.2500, L100.0100 #### [facility] [address] [place], [address] RDW SD 45.4 fl High 35.1-43.9 [facility] Comment on above: Performed By: #### L 501.4021, L500.2500, L100.0100 #### [facility] [address] [place], [address] WBC (Bld) [#/Vol] 10.8 10*3/uL Normal 4.4-11.0 [facility] Comment on above: Performed By: #### L 501.4021, L500.2500, L100.0100 #### [facility] [address] [place], [address] Carbon dioxide, total [Moles /volume] in Central venous bloodOrdered By: Luis Velasquez on 06-19-2025 CO2 [Moles/Vol] 22.2 mmol/L 21.0-32.0 [facility] Chest 1 View (Portable)on Chest 1 View (Portable) [facility] Imaging Services [address] [place] [address] Chest 1 View (Portable) MR#: [id number] Acct: [id number] Name: RAYA MCNAIR Rep #: [id number] : 1940 M 85 From: Uday Edmond MD PCP: Dao Raphael Jr., MD Status: REG ER Study: Chest 1 View (Portable) Date of Exam: 06/19/25 Exam# [id number] Ordering Dr: Luis Velasquez DO PROCEDURE: CHEST 1 VIEW (PORTABLE) 06/19/2025 REASON FOR EXAM: PALPITATIONS TECHNIQUE: Frontal view of the chest. COMPARISON: 06/14/2025 FINDINGS: Lungs/Pleura: Clear. No pneumothorax or pleural effusion. Heart/Mediastinum: Mild cardiomegaly. No vascular congestion. Bones/Soft tissues: Degenerative changes of the spine and bilateral AC joints. RAD/Chest 1 View (Portable) IMPRESSION: Cardiomegaly. No acute pulmonary disease. Reading Location: [facility] CC: Dr. 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 Normal [facility] Chloride assayOrdered By: Mary Velasquez on 06-19-2025 Chloride [Moles/Vol] 103 mmol/L 98-108 [facility] Emergency Department Summary on 06-19-2025 Emergency Department Summary [facility] Medical Records Department [address] [place] [address] Emergency Department Summary 06/19/25 MR#: [id number] Acct: [id number] Name: RAYA MCNAIR CANDY Rep #: [id number] : 1940 85 From: uLis Velasquez DO PCP: Dao Raphael Jr., MD Status:DEP ER Location: ED HPI History of Present Illness Chief Complaint: Palpitations [facility] Medical History Hyperlipidemia Skin cancer Pneumonia Heart disease Gastrointestinal problem Gall stones Cataract Bone fracture Allergies Type 2 diabetes mellitus Hypertension Celiac disease Anxiety Coronary artery disease Hypertension Atherosclerotic heart disease of [place] coronary artery without angina pectoris Home Medications ???Medication ???Instructions ???Recorded ???Last Taken ???Type aspirin 81 mg tablet,delayed 81 mg PO DAILY@0800 heart health 0 03/18/21 04/03/21 History release cholecalciferol (vitamin D3) 50 4,000 unit PO DAILY SUPPLEMENT 03/18/21 History mcg (2,000 unit) capsule vit C 250 mg-vit E 90 mg-zinc 40 1 cap PO BID EYE HEALTH 03/18/21 0 03/18/21 History mg-copper 1 ju-hrwebq-pyvyat capsule atorvastatin 40 mg tablet 40 mg [...] hyperlipidemia, Cr (more content not included)... Normal [facility] Eosinophil percentageOrdered By: Luis Velasquez on 06-19-2025 Eosinophils/100 WBC (Bld) 2.2 % 0-5 [facility] Erythrocyte distribution wid th ratioOrdered By: Luis Velasquez on 06-19-2025 Erythrocyte distribution width (RBC) [Ratio] 13.6 % 11.6-14.6 [facility] Erythrocyte distribution wid th standard deviationOrdered By: Luis Velasquez on 06-19-2025 Erythrocyte distribution width (RBC) [Ratio] 45.4 fl High 35.1-43.9 [facility] Free T3on 06-19-2025 Free T3 [Mass/Vol] 2.8 pg/mL Normal 2.18-3.98 [facility] Comment on above: Performed By: #### L 501.4021, L500.2500, L100.0100 #### [facility] [address] [place], [address] Free A7Mdddlfs By: Luis amanda on 06-19-2025 Free T3 [Mass/Vol] 2.8 pg/mL 2.18-3.98 [facility] Glomerular filtration rate ( GFR) estimation/1.73 sq m using serum, plasma, or whole bOrdered By: Luis Velasquez on 06-19-2025 GFR/1.73 sq M.predicted among non-blacks MDRD (S/P/Bld) [Vol rate/Area] 69 mL/min/{1.73_m2} >60 [facility] Comment on above: mL/min/1.73m2 CKD-EP I Creatinine Equation (2020) Hematocrit Auto (Bld) [Volum e fraction]Ordered By: Luis Velasquez on 06-19-2025 Hematocrit (Bld) [Volume fraction] 40.5 % 40-54 [facility] Hemoglobin measurementOrdere d By: Luis Velasquez on 06-19-2025 Hemoglobin (Bld) [Mass/Vol] 13.4 g/dL 13.0-16.5 [facility] Immature granulocytes/100 WB C Auto (Bld)Ordered By: Luis Velasquez on 06-19-2025 Immature granulocytes/100 WBC (Bld) 0.400 % 0.0-0.9 [facility] Comment on above: IG% - Immature Granu locytes (promyelocytes, myelocytes and metamyelocytes) > 1% indicates that a LEFT SHIFT is Present. International normalized rat io (INR) calculationOrdered By: Luis Velasquez on 06-19-2025 INR Coag (Bld) [Relative time] 1.2 {INR} [facility] L501.4021on 06-19-2025 Trop T High Sen 15 ng/L Normal <=22 [facility] Comment on above: Performed By: #### L 501.4021, L500.2500, L100.0100 #### [facility] [address] [place], [address] MCV (mean corpuscular volume ) determinationOrdered By: Luis Velasquez on 06-19-2025 MCV (RBC) [Entitic vol] 90.4 fL 80-94 [facility] Mean corpuscular hemoglobin (MCH) determinationOrdered By: Luis Velasquez on 06-19-2025 MCH (RBC) [Entitic mass] 29.9 pg 27.0-32.0 [facility] Mean corpuscular hemoglobin concentration (MCHC) determinationOrdered By: Luis Velasquez on 06-19-2025 MCHC (RBC) [Mass/Vol] 33.1 g/dL 32-36 [facility] Mean platelet volume determi nationOrdered By: Luis Velasquez on 06-19-2025 Platelet mean volume (Bld) [Entitic vol] 9.9 fL 6.2-12.0 [facility] Monocyte percentageOrdered B y: Luis Velasquez on 06-19-2025 Monocytes/100 WBC (Bld) 7.6 % 0-10 [facility] Neutrophil percentageOrdered By: Luis Velasquez on 06-19-2025 Neutrophils/100 WBC (Bld) 67.5 % 47-70 [facility] Nucleated red blood cell per centageOrdered By: Luis Velasquez on 06-19-2025 Nucleated RBC/100 WBC (Bld) [Ratio] 0 % 0-5 [facility] Partial Thromboplast Timeon 06-19-2025 aPTT Coag (Bld) [Time] 26.9 s Normal 24.1-36.2 [facility] Comment on above: Performed By: #### L 300.8000 #### [facility] [address] [place], [address] Platelet countOrdered By: Mary Velasquez on 06-19-2025 Platelets (Bld) [#/Vol] 313 10*3/uL 150-450 [facility] Potassium measurement (mass/ volume)Ordered By: Luis Velasquez on 06-19-2025 Potassium (Unsp spec) [Mass/Vol] 3.6 mmol/L 3.3-5.1 [facility] Prothrombin Time w/INRon INR Coag (PPP) [Relative time] 1.2 {INR} Normal [facility] Comment on above: Performed By: #### L 300.8000 #### [facility] [address] [place], [address] PT Coag (PPP) [Time] 15.5 s High 11.7-14.9 [facility] Comment on above: Performed By: #### L 300.8000 #### [facility] [address] [place], [address] Prothrombin timeOrdered By: Luis Velasquez on 06-19-2025 PT Coag (PPP) [Time] 15.5 s High 11.7-14.9 [facility] RBC Auto (Bld) [#/Vol]Ordere d By: Lius Velasquez on 06-19-2025 RBC (Bld) [#/Vol] 4.48 10*6/uL Low 4.6-6.2 [facility] Serum creatinine measurement (mass/volume)Ordered By: Luis Velasquez on 06-19-2025 Creatinine [Mass/Vol] 1.06 mg/dL 0.70-1.20 [facility] Serum glucose measurement (m ass/volume)Ordered By: Luis Velasquez on 06-19-2025 Glucose [Mass/Vol] 105 mg/dL High 70-99 [facility] Serum or plasma calcium nii urement (mass/volume)Ordered By: Luis Velasquez on 06-19-2025 Calcium [Mass/Vol] 9.2 mg/dL 7.6-11.0 [facility] Serum or plasma urea nitroge n measurement (mass/volume)Ordered By: Luis Velasquez on 06-19-2025 Urea nitrogen [Mass/Vol] 23 mg/dL High 4-19 [facility] Sodium levelOrdered By: Heather Velasquez on 06-19-2025 Sodium [Moles/Vol] 140 mmol/L 133-145 [facility] T4 Free Directon 06-19-2025 T4 FREE DIRECT 1.50 ng/dL High 0.76-1.46 [facility] Comment on above: Performed By: #### L 501.4021, L500.2500, L100.0100 #### [facility] [address] [place], [address] T4 freeOrdered By: Luis amanda on 06-19-2025 Free T4 [Mass/Vol] 1.50 ng/dL High 0.76-1.46 [facility] TSH DL <= 0.005 mIU/L QnOrde red By: Luis Velasquez on 06-19-2025 TSH Qn 1.180 uIU/mL 0.300-4.200 [facility] Thyroid Stim Hormone (TSH)on 06-19-2025 TSH 1.180 uIU/mL Normal 0.300-4.200 [facility] Comment on above: Performed By: #### L 501.4021, L500.2500, L100.0100 #### [facility] [address] [place], [address] Troponin T HS 2 HRon 025 Trop T High Sen 13 ng/L Normal <=22 [facility] Comment on above: Performed By: #### L 501.4021, L500.2500, L100.0100 #### [facility] [address] [place], [address] Trop T High Sen Normal <=22 [facility] Comment on above: Result Comment: LELE ENT DISCHARGED Performed By: #### L 499.0042 #### [facility] [address] [place], [address] Troponin T HS 4 HRon 025 Trop T High Sen Normal <=22 [facility] Comment on above: Result Comment: Canc elled via OM: Order cancelled - Patient discharged Performed By: #### L 499.0043 #### [facility] [address] [place], [address] Trop T High Sen Normal <=22 [facility] Comment on above: Result Comment: Canc elled via OM: Order cancelled - Patient discharged Performed By: #### L 300.8000 #### [facility] [address] [place], [address] Troponin T.cardiac [Mass/vol ume] in Serum or Plasma by High sensitivity methodOrdered By: Luis Velasquez on 06-19-2025 Troponin T.cardiac High sensitivity method [Mass/Vol] 13 ng/L <22 [facility] Troponin T.cardiac High sensitivity method [Mass/Vol] 15 ng/L <22 [facility] Comment on above: Delta: 13 on 5-1800 White blood cell (WBC) count Ordered By: Luis Velasquez on 06-19-2025 WBC (Bld) [#/Vol] 10.8 10*3/uL 4.4-11.0 [facility] Absolute lymphocyte countOrd ered By: ED PROVIDER on 06-14-2025 Lymphocytes Auto (Unsp spec) [#/Vol] 1.26 10*3/uL 0.83-4.51 [facility] Absolute neutrophil countOrd ered By: ED PROVIDER on 06-14-2025 Neutrophils (Bld) [#/Vol] 11.3 10*3/uL High 2.0-7.7 [facility] Anion gap in Serum or Plasma Ordered By: ED PROVIDER on 06-14-2025 Anion gap [Moles/Vol] 11 mmol/L 5-15 [facility] Automated lymphocyte count a s percentage of total leukocytesOrdered By: ED PROVIDER on 06-14-2025 Lymphocytes/100 WBC Auto (Unsp spec) 8.7 % Low 19-41 [facility] BUN/creatinine ratioOrdered By: ED PROVIDER on 06-14-2025 Urea nitrogen/Creatinine [Mass ratio] 22.1 mg/mg High 10-20 [facility] Basic Metabolic Profile (BMP )on 06-14-2025 BUN/CRE 22.1 RATIO High 10-20 [facility] Comment on above: Performed By: #### L 501.4021, L500.2500, L100.0100 #### [facility] [address] [place], [address] ECRCL 69.72 ml/min Normal 50-250 [facility] Comment on above: Performed By: #### L 501.4021, L500.2500, L100.0100 #### [facility] [address] [place], [address] GAP 11 Normal 5-15 [facility] Comment on above: Performed By: #### L 501.4021, L500.2500, L100.0100 #### [facility] [address] [place], [address] Potassium [Moles/Vol] 3.9 mmol/L Normal 3.3-5.1 [facility] Comment on above: Performed By: #### L 501.4021, L500.2500, L100.0100 #### [facility] [address] [place], [address] Basophil percentageOrdered B y: ED PROVIDER on 06-14-2025 Basophils/100 WBC (Bld) 0.3 % 0-1 [facility] CBC W/Diff, Automatedon 05-29 Absolute Lymph 1.26 X10 3/uL Normal 0.83-4.51 [facility] Comment on above: Performed By: #### L 501.4021, L500.2500, L100.0100 #### [facility] [address] [place], [address] Absolute Neut 11.3 X10 3/uL High 2.0-7.7 [facility] Comment on above: Performed By: #### L 501.4021, L500.2500, L100.0100 #### [facility] [address] [place], [address] Basophils/100 WBC (Bld) 0.3 % Normal 0-1 [facility] Comment on above: Performed By: #### L 501.4021, L500.2500, L100.0100 #### [facility] [address] [place], [address] Eosinophils/100 WBC (Bld) 0.1 % Normal 0-5 [facility] Comment on above: Performed By: #### L 501.4021, L500.2500, L100.0100 #### [facility] [address] [place], [address] Erythrocyte distribution width (RBC) [Ratio] 13.7 % Normal 11.6-14.6 [facility] Comment on above: Performed By: #### L 501.4021, L500.2500, L100.0100 #### [facility] [address] [place], [address] Hematocrit (Bld) [Volume fraction] 41.6 % Normal 40-54 [facility] Comment on above: Performed By: #### L 501.4021, L500.2500, L100.0100 #### [facility] [address] [place], [address] Hemoglobin (Bld) [Mass/Vol] 13.7 g/dL Normal 13.0-16.5 [facility] Comment on above: Performed By: #### L 501.4021, L500.2500, L100.0100 #### [facility] [address] [place], [address] IG% 0.500 Normal 0.0-0.9 [facility] Comment on above: Result Comment: IG% - Immature Granulocytes (promyelocytes, myelocytes and metamyelocytes) > 1% indicates that a LEFT SHIFT is Present. Performed By: #### L 501.4021, L500.2500, L100.0100 #### [facility] [address] [place], [address] Lymphocytes/100 WBC (Bld) 8.7 % Low 19-41 [facility] Comment on above: Performed By: #### L 501.4021, L500.2500, L100.0100 #### [facility] [address] [place], [address] MCH (RBC) [Entitic mass] 29.5 pg Normal 27.0-32.0 [facility] Comment on above: Performed By: #### L 501.4021, L500.2500, L100.0100 #### [facility] [address] [place], [address] MCHC (RBC) [Mass/Vol] 32.9 g/dL Normal 32-36 [facility] Comment on above: Performed By: #### L 501.4021, L500.2500, L100.0100 #### [facility] [address] [place], [address] MCV (RBC) [Entitic vol] 89.7 fL Normal 80-94 [facility] Comment on above: Performed By: #### L 501.4021, L500.2500, L100.0100 #### [facility] [address] [place], [address] Monocytes/100 WBC (Bld) 12.6 % High 0-10 [facility] Comment on above: Performed By: #### L 501.4021, L500.2500, L100.0100 #### [facility] [address] [place], [address] Neutrophils/100 WBC (Bld) 77.8 % High 47-70 [facility] Comment on above: Performed By: #### L 501.4021, L500.2500, L100.0100 #### [facility] [address] [place], [address] Nucleated RBC (Bld) [#/Vol] 0 10*3/uL Normal 0-5 [facility] Comment on above: Performed By: #### L 501.4021, L500.2500, L100.0100 #### [facility] [address] [place], [address] Platelet mean volume (Bld) [Entitic vol] 10.3 fL Normal 6.2-12.0 [facility] Comment on above: Performed By: #### L 501.4021, L500.2500, L100.0100 #### [facility] [address] [place], [address] Platelets (Bld) [#/Vol] 264 10*3/uL Normal 150-450 [facility] Comment on above: Performed By: #### L 501.4021, L500.2500, L100.0100 #### [facility] [address] [place], [address] RBC (Bld) [#/Vol] 4.64 10*6/uL Normal 4.6-6.2 [facility] Comment on above: Performed By: #### L 501.4021, L500.2500, L100.0100 #### [facility] [address] [place], [address] RDW SD 44.8 fl High 35.1-43.9 [facility] Comment on above: Performed By: #### L 501.4021, L500.2500, L100.0100 #### [facility] [address] [place], [place], [address] WBC (Bld) [#/Vol] 14.6 10*3/uL High 4.4-11.0 [facility] Comment on above: Performed By: #### L 501.4021, L500.2500, L100.0100 #### [facility] [address] [place], [address] CNOVon 06-14-2025 CNOV Office Visit (WOUCA) -------- RAYA MCNAIR ([id number]) 1940 M Date Time Provider Department 06/14/25 [...] or Supervisory/Collaboratin g Physician included: discussed with [place] ed pt refuses transport will await arrival for immediate eval Disposition The patient was discharged. Procedures Kris Crouch MD 06/14/2025 4:36 PM Signed YOU WILL NEED AN EVALUATION IN THE [facility] NOW Allergies As of Date: 06/14/2025 [...] pain, unspecified type [R07.9] Order(s):COVID-19 MOLECULAR (POC) [2096350] Order #: [id number]. #:[id number] 378-LAB INFLUENZA AANDB MOLECULAR (POC) [0720332] Order #: [id number]. #:[id number] 378-LAB XR CHEST 2V FRONTAL/LAT [3095761] Order #: [id number]. #:[id number] ECG COMPLETE [ECG01] Order #: [id number]. #:[id number] Prescriptions as of 06/14/2025 - tamsulosin (FLOMAX) [...] % ointm (more content not included)... Normal [facility] COVID-19 MOLECULAR (POC)on 0 06-14-2025 Procedural Control Valid [facility] SARS-CoV-2 (COVID-19) RNA MARTITA+probe Ql (Unsp spec) Negative Negative [facility] Comment on above: Location:[facility] [place], [address], [place], [address] [facility] Carbon dioxide, total [Moles /volume] in Central venous bloodOrdered By: ED PROVIDER on 06-14-2025 CO2 [Moles/Vol] 23.9 mmol/L Normal 21.0-32.0 [facility] Comment on above: Performed By: #### L 501.4021, L500.2500, L100.0100 #### [facility] [address] [place], [address] Chest 1 View (Portable)on Chest 1 View (Portable) [facility] Imaging Services [address] [place] [address] Chest 1 View (Portable) MR#: [id number] Acct: [id number] Name: RAYA MCNAIR Rep #: [id number] : 1940 M 85 From: Theo Crowell MD PCP: Status: PRE ER Study: Chest 1 View (Portable) Date of Exam: 06/14/25 Exam# [id number] Ordering Dr: Joby,Macho P. PROCEDURE: CHEST 1 VIEW (PORTABLE) 06/14/2025 REASON FOR EXAM: CHEST PAIN TECHNIQUE: Frontal view of the chest. COMPARISON: None FINDINGS: Hardware: None Heart: Not significantly enlarged Lungs: No focal consolidation or pleural effusion. Bones: Degenerative changes are identified within the thoracic spine. RAD/Chest 1 View (Portable) IMPRESSION: No acute cardiopulmonary abnormality. Reading Location: [id number] CC: ED PHYSICIAN PROVIDER Hair Worker: Signed Normal [facility] Chloride assayOrdered By: ED PROVIDER on 06-14-2025 Chloride [Moles/Vol] 103 mmol/L Normal 98-108 [facility] Comment on above: Performed By: #### L 501.4021, L500.2500, L100.0100 #### [facility] [address] [place], [address] D-Dimer Quantitative (DVT/PE )on 06-14-2025 D-DIMER QUANT 0.31 FEU/ug/m Normal 0.27-0.49 [facility] Comment on above: Result Comment: NORM AL D-Dimer level (<0.50) indicates no DVT or PE. Performed By: #### L 300.8000 #### [facility] [address] [place], [address] Emergency Department Summary on 06-14-2025 Emergency Department Summary [facility] Medical Records Department [address] [place] [address] Emergency Department Summary 06/14/25 MR#: [id number] Acct: [id number] Name: RAYA MCNAIR Rep #: [id number] : 1940 85 From: Jennifer CONWAY PCP: [...] in for evaluation. He follows with the [facility] and had 2 stents placed in 2020. He had a stress test in December 2024 that was normal. He states he was asymptomatic but it was ordered because it had been a long time since he had one done. He takes Plavix. He denies smoking history. He denies history of DVT/PE or risk factors. [facility] Medical History Hyperlipidemia Skin cancer Pneumonia Heart disease Gastrointestinal problem Gall stones Cataract Bone fracture Allergies Type 2 diabetes mellitus Hypertension Celiac disease Anxiety Coronary artery disease Hypertension Atherosclerotic heart disease of [place] coronary artery without angina pectoris Home Medications ???Medication ???Instructions ???Recorded ???Last Taken ???Type aspirin 81 mg tablet,delayed 81 mg PO DAILY@0800 heart health 0 03/18/21 04/03/21 History release cholecalciferol (vitamin D3) 50 4,000 unit PO DAILY SUPPLEMENT 03/18/21 History mcg (2,000 unit) capsule vit C 250 mg-vit E 90 mg-zinc 40 1 cap PO BID [facility] 03/18/21 0 03/18/21 History mg-copper 1 uo-ycowhp-defmio capsule atorvastatin 40 mg tablet 40 mg [...] rebound, no (more content not included)... Normal [facility] Eosinophil percentageOrdered By: ED PROVIDER on 06-14-2025 Eosinophils/100 WBC (Bld) 0.1 % 0-5 [facility] Erythrocyte distribution wid th ratioOrdered By: ED PROVIDER on 06-14-2025 Erythrocyte distribution width (RBC) [Ratio] 13.7 % 11.6-14.6 [facility] Erythrocyte distribution wid th standard deviationOrdered By: ED PROVIDER on 06-14-2025 Erythrocyte distribution width (RBC) [Ratio] 44.8 fl High 35.1-43.9 [facility] Glomerular filtration rate ( GFR) estimation/1.73 sq m using serum, plasma, or whole bOrdered By: ED PROVIDER on 06-14-2025 GFR/1.73 sq M.predicted among non-blacks MDRD (S/P/Bld) [Vol rate/Area] 82 mL/min/{1.73_m2} Normal >60 [facility] Comment on above: mL/min/1.73m2 CKD-EP I Creatinine Equation (2020) Result Comment: mL/m in/1.73m2 CKD-EPI Creatinine Equation (2020) Performed By: #### L 501.4021, L500.2500, L100.0100 #### [facility] [address] [place], [address] Hematocrit Auto (Bld) [Volum e fraction]Ordered By: ED PROVIDER on 06-14-2025 Hematocrit (Bld) [Volume fraction] 41.6 % 40-54 [facility] Hemoglobin measurementOrdere d By: ED PROVIDER on 06-14-2025 Hemoglobin (Bld) [Mass/Vol] 13.7 g/dL 13.0-16.5 [facility] INFLUENZA A&B MOLECULAR (POC )on 06-14-2025 Flu A (POCT) Negative Negative [facility] Flu B (POCT) Negative Negative [facility] Procedural Control Valid [facility] Location:[facility] [place], [address], [place], [address] [facility]INT OF CARE [facility] Immature granulocytes/100 WB C Auto (Bld)Ordered By: ED PROVIDER on 06-14-2025 Immature granulocytes/100 WBC (Bld) 0.500 % 0.0-0.9 [facility] Comment on above: IG% - Immature Granu locytes (promyelocytes, myelocytes and metamyelocytes) > 1% indicates that a LEFT SHIFT is Present. L499.0042on 06-14-2025 Trop T High Sen 12 ng/L Normal <=22 [facility] Comment on above: Performed By: #### L 499.0042 #### [facility] [address] [place], [address] L499.0043on 06-14-2025 Trop T High Sen Normal <=22 [facility] Comment on above: Result Comment: LELE ENT DISCHARGED. SPECIMEN NOT RECEIVED. Performed By: #### L 501.4021, L500.2500, L100.0100 #### [facility] [address] [place], [address] L501.4021on 06-14-2025 Trop T High Sen 13 ng/L Normal <=22 [facility] Comment on above: Performed By: #### L 501.4021, L500.2500, L100.0100 #### [facility] [address] [place], [address] MCV (mean corpuscular volume ) determinationOrdered By: ED PROVIDER on 06-14-2025 MCV (RBC) [Entitic vol] 89.7 fL 80-94 [facility] Mean corpuscular hemoglobin (MCH) determinationOrdered By: ED PROVIDER on 06-14-2025 MCH (RBC) [Entitic mass] 29.5 pg 27.0-32.0 [facility] Mean corpuscular hemoglobin concentration (MCHC) determinationOrdered By: ED PROVIDER on 06-14-2025 MCHC (RBC) [Mass/Vol] 32.9 g/dL 32-36 [facility] Mean platelet volume determi nationOrdered By: ED PROVIDER on 06-14-2025 Platelet mean volume (Bld) [Entitic vol] 10.3 fL 6.2-12.0 [facility] Monocyte percentageOrdered B y: ED PROVIDER on 06-14-2025 Monocytes/100 WBC (Bld) 12.6 % High 0-10 [facility] Neutrophil percentageOrdered By: ED PROVIDER on 06-14-2025 Neutrophils/100 WBC (Bld) 77.8 % High 47-70 [facility] Nucleated red blood cell per centageOrdered By: ED PROVIDER on 06-14-2025 Nucleated RBC/100 WBC (Bld) [Ratio] 0 % 0-5 [facility] Platelet countOrdered By: ED PROVIDER on 06-14-2025 Platelets (Bld) [#/Vol] 264 10*3/uL 150-450 [facility] Potassium measurement (mass/ volume)Ordered By: ED PROVIDER on 06-14-2025 Potassium (Unsp spec) [Mass/Vol] 3.9 mmol/L 3.3-5.1 [facility] RBC Auto (Bld) [#/Vol]Ordere d By: ED PROVIDER on 06-14-2025 RBC (Bld) [#/Vol] 4.64 10*6/uL 4.6-6.2 [facility] Serum creatinine measurement (mass/volume)Ordered By: ED PROVIDER on 06-14-2025 Creatinine [Mass/Vol] 0.92 mg/dL Normal 0.70-1.20 [facility] Comment on above: Performed By: #### L 501.4021, L500.2500, L100.0100 #### [facility] [address] [place], [address] Serum glucose measurement (m ass/volume)Ordered By: ED PROVIDER on 06-14-2025 Glucose [Mass/Vol] 111 mg/dL High 70-99 [facility] Comment on above: Performed By: #### L 501.4021, L500.2500, L100.0100 #### [facility] [address] [place], [address] Serum or plasma calcium nii urement (mass/volume)Ordered By: ED PROVIDER on 06-14-2025 Calcium [Mass/Vol] 8.9 mg/dL Normal 7.6-11.0 [facility] Comment on above: Performed By: #### L 501.4021, L500.2500, L100.0100 #### [facility] [address] [place], [address] Serum or plasma urea nitroge n measurement (mass/volume)Ordered By: ED PROVIDER on 06-14-2025 Urea nitrogen [Mass/Vol] 20 mg/dL High 4-19 [facility] Comment on above: Performed By: #### L 501.4021, L500.2500, L100.0100 #### [facility] [address] [place], [address] Sodium levelOrdered By: ED P TIMOTHY on 06-14-2025 Sodium [Moles/Vol] 138 mmol/L Normal 133-145 [facility] Comment on above: Performed By: #### L 501.4021, L500.2500, L100.0100 #### [facility] [address] [place], [address] Troponin T.cardiac [Mass/vol ume] in Serum or Plasma by High sensitivity methodOrdered By: Rayshawn Yeager on 06-14-2025 Troponin T.cardiac High sensitivity method [Mass/Vol] 12 ng/L <22 [facility] Troponin T.cardiac [Mass/vol ume] in Serum or Plasma by High sensitivity methodOrdered By: ED PROVIDER on 06-14-2025 Troponin T.cardiac High sensitivity method [Mass/Vol] 13 ng/L <22 [facility] White blood cell (WBC) count Ordered By: ED PROVIDER on 06-14-2025 WBC (Bld) [#/Vol] 14.6 10*3/uL High 4.4-11.0 [facility] XR CHEST 2V FRONTAL/LATon XR CHEST [...] the spine. IMPRESSION: No acute radiographic abnormality. Hair Worker: PSCB Transcribe Date/Time: Jun 14 2025 4:28P Dictated by : KIMBERLEY RAMOS MD This examination was interpreted and the report reviewed and electronically signed by: KIMBERLEY RAMOS MD on Jun 14 2025 4:28PM EST [id number] Normal [facility] Chest PA and Lateralon IMPRESSION: No acute radiographic abnormality. Hair Worker: MOY Transcribe Date/Time: Jun 14 2025 4:28P Dictated by : KIMBERLEY RAMOS MD This examination was interpreted and the report reviewed and electronically signed by: KIMBERLEY RAMOS MD on Jun 14 2025 4:28PM [facility] DIVISION OF RADIOLOGY * * *Final Report* [...] in the spine. DIVISION OF RADIOLOGY Provider, [facility] - 06/14/2025 * * *Final Report* * [...] spine. IMPRESSION IMPRESSION: No acute radiographic abnormality. Hair Worker: MOY Transcribe Date/Time: Jun 14 2025 4:28P Dictated by : KIMBERLEY RAMOS MD This examination was interpreted and the report reviewed and electronically signed by: KIMBERLEY RAMOS MD on Jun 14 2025 4:28PM EST [facility] Radiology Study observation (narrative) Viviana shen [facility] XR Chest PA and LateralOrder ed By: [facility] Provider on 06-14-2025 [facility] CNOVon 05-10-2025 CNOV Office Visit (DERMST ) -------- RAYA MCNAIR ([id number]) 1940 M Date Time Provider Department 05/10/25 [...] are healing, please send your provider a Unblab message or call . CARE FOR YOUR [...] are healing, please send your provider a Unblab message or call . José Sheikh APRN.CNP 05/10/2025 2:34 PM Signed Department of Dermatology José Sheikh APRN.CNP Last visit in Dermatology: 5 (more content not included)... Normal [facility] CRYOTHERAPY SKIN LESIONon Complexity: simple Destruction [...] Return if lesions fail to fully resolve. [facility] Pathology biopsy report Matheus (Tiss)on 05-10-2025 AP DISCLAIMER Normal [facility] Comment on above: Order Comment: Jennie rodriguez Type: TISSUE SPECIMEN Ordering Facility: [facility] Address: [address] [place] [address] Result Comment: Jez altamirano Developed Test (LDT) Disclaimer: Performance characteristics of immunohistochemical, immunofluorescent, and chromogenic in-situ hybridization tests have been determined by the performing laboratory within [facility]'s [facility] Pathology and Laboratory Medicine Department ([facility], [facility], [facility], [facility], [facility], Pending Sale To [facility], or [facility]) in [...] appropriately. Performed By: #### 6 6121-5 #### [facility] CLIA [id number] [address] [place] [address] [place] CASE REPORT Normal [facility] Comment on above: Order Comment: Jennie rodriguez Type: TISSUE SPECIMEN Ordering Facility: [facility] Address: [address] [place] [address] Result Comment: Surg [facility] Pathology Report Case: [id number] Authorizing Provider: José Sheikh, Collected: 05/10/2025 01:34 PM ALBERENE [employer] Ordering Location: Dermatology Received: 05/10/2025 03:03 PM Pathologist: Rafy Guardado MD, PhD Specimen: Skin, Right Superior [place] Performed By: #### 6 6121-5 #### [facility] CLIA [id number] [address] [place] [address] [place] CLINICAL HISTORY Normal [facility] Comment on above: Order Comment: Speci michael Type: TISSUE SPECIMEN Ordering Facility: [facility] Address: [address] [place] [address] Result Comment: 7 x 6 mm erythematous hyperkeratotic papule Performed By: #### 6 6121-5 #### [facility] CLIA [id number] [address] [place] [address] [place] FINAL DIAGNOSIS Normal [facility] Comment on above: Order Comment: Speci men Type: TISSUE SPECIMEN Ordering Facility: [facility] Address: [address] [place] [address] Result Comment: A. S kin, right superior helix, shave biopsy: - Invasive moderately-differentiated squamous cell carcinoma. AF/EB/IO 05/11/2025 at 1519 EDT Performed By: #### 6 6121-5 #### [facility] CLIA [id number] [address] [place] [address] [place] FINAL PERFORMING LAB Normal [facility] Comment on above: Order Comment: Speci men Type: TISSUE SPECIMEN Ordering Facility: [facility] Address: [address] [place] [address] Result Comment: Diag nostic interpretation performed at: [facility], [address] [place] [address] CLIA# [id number] Vp Transportation: Calixto Kraft MD Performed By: #### 6 6121-5 #### [facility] CLIA [id number] [address] [place] [address] [place] GROSS DESCRIPTION A. Skin Normal [facility] Comment on above: Order Comment: Speci men Type: TISSUE SPECIMEN Ordering Facility: [facility] Address: [address] [place] [address] Result Comment: Rece ived in formalin is a 0.6 x 0.5 x 0.3 cm shave of skin. On the skin surface there is a 0.5 cm kaur, elevated area. The specimen is bisected. Totally submitted in one cassette. DB May 10, 2025 9:25 PM Gross examination performed at [facility], [address] [place] [address] Performed By: #### 6 6121-5 #### [facility] CLIA [id number] [address] [place] [address] OF [facility] SKIN / NAIL BIOPSYon 025 Type of [...] dressing applied Dressing type: bandage and petrolatum [facility] No Panel InformationOrdered By: Dao Raphael on 04-18-2025 [facility] [address] [place] [address] Internal Medicine Signed Patient: RAAY MCNAIR MR#: [id number] : 1940 Acct:[id number] Age/Sex: 85 / M Date of Service: [...] Delivery Method Room Air Medicare Wellness Intake Base Manager Required: No Accompanied by: Self Same As [...] Care Proxy: Yes Advanced Care Planning Discuss (21012)?: discussed, patient to bring in advance directive Living will & medical proxy personal financial counselor (as needed, if at risk): yes [...] and colleagues, with an educational jena from [employer]. Depression Screen Completed: Yes STEADI Fall Risk [...] (1): No I (more content not included)... [facility] Work Phone: CNOVon 04-12-2025 CNOV Office Visit (DERMST ) -------- RAYA MCNAIR ([id number]) 1940 M Date Time Provider Department 04/12/25 10:30 AM NURSE OZZIE CAROLINAS [facility] NOGUEIRA During your visit today, we [...] of Levulan sticks applied: 2 Lot # [id number] Exp 03/2027 Time before Blue Light exposure: [...] swelling and redness, you may also take qndw-akx-wfoqhxz oral medications: Claritin (loratidine) 10 mg in [...] C/E/zinc o (more content not included)... Normal [facility] CNOVon 03-06-2025 CNOV Office Visit (LEAH ) -------- RAYA MCNAIR ([id number]) 1940 M Date Time Provider Department 03/06/25 [...] 400 Units by mouth once daily. vit A,C,A-Zbdh-Jurqsf (PRESERVISION AREDS) 7,160 unit- 113 mg-100 unit [...] stressors. HEMATOLOGY/LYMPH (more content not included)... Normal [facility] No Panel Informationon 03-06 [facility] UA DIP, URINE (POC)on 2024 BILIRUBIN UA (POCT) Negative Negative Michele [facility] CLARITY UA (POCT) [facility] COLOR UA (POCT) Yellow [facility] GLUCOSE UA (POCT) Negative Negative mg/dL [facility] Hemoglobin Ql (U) Negative Negative [facility] KETONE UA (POCT) Negative Negative mg/dL [facility] LEUKOCYTES UA (POCT) Negative Negative [facility] NITRITE UA (POCT) Negative Negative [facility] PH UA (POCT) 5.5 4.5 - 8.0 [facility] Protein Ql (U) Negative Negative mg/dL [facility] SPECIFIC GRAVITY UA (POCT) 1.01 1.005 - 1.030 [facility] UROBILINOGEN UA (POCT) 0.2 Marcia l E.U./dL [facility] Location:[address], [place], [place], [address] [place] [address] POINT OF CARE URINE SEDIMENT B/Oon 025 BACTERIA, UR Negative Negative [facility] Casts LM.HPF (Urine sed) [#/Area] Negative Negative [facility] Leukocyte morphology finding Nom (Bld) 0 [facility] Nucleated RBC Manual cnt (Unsp spec) [#] 0 [facility] Urine sediment comments LM Matheus (Urine sed) None [facility] CNOVon 03-01-2025 CNOV Office Visit (DERMST ) -------- RAYA MCNAIR ([id number]) 1940 M Date Time Provider Department 03/01/25 [...] are healing, please send your provider a Unblab message or call . Allergies As of Date: 03/01/2025 Noted Allergy Reaction GLUTEN 04/11/2021 14 - Other: See Comments LACTOSE 04/11/2021 8 - GI Upset Date Reviewed: 03/01/2025 Reviewed by: Tawny Bradford LPN - Fully Assessed Reason for Visit: LESION, SKIN [936] Primary Visit Diagnosis:Neoplasm of unspecified behavior of bone, soft tissue, and skin [D49.2] Order(s):SKIN / NAIL BIOPSY [1163233] Order #: [id number]: 1 SURGICAL PATHOLOGY [IQD9768] Order #: [id number] STANDING SURGICAL PATHOLOGY [PQG5732] Order #: [id number] Prescriptions as of 03/01/2025 - TRULICITY 1.5 [...] unit caps (more content not included)... Normal [facility] Pathology biopsy report Matheus (Tiss)on 03-01-2025 AP DISCLAIMER Normal [facility] Comment on above: Order Comment: Jennie rodriguez Type: TISSUE SPECIMENOrdering Facility: [facility] Address: [address] [place] [address] Result Comment: Jez altamirano Developed Test (LDT) Disclaimer: Performance characteristics of immunohistochemical, immunofluorescent, and chromogenic in-situ hybridization tests have been determined by the performing laboratory within [facility]'s [facility] Pathology and Laboratory Medicine Department ([facility], [facility], [facility], [facility], [facility], Pending Sale To [facility], or [facility]) in [...] stain appropriately. 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 S kin, left forearm-posterior, shave biopsy: - Scar. CR 03/02/2025 at 1531 EDT Performed By: #### 6 6121-5 ####[facility]CLIA [id number] [address] [address] [place] FINAL PERFORMING LAB Normal [facility] Comment on above: Order Comment: Speci men Type: TISSUE SPECIMENOrdering Facility: [facility] Address: [address] [place] [address] Result Comment: Diag nostic interpretation performed at: [facility], [address] [place] [address] [place] [address] CLIA# [id number] Vp Transportation: Calixto Kraft MD Performed By: #### 6 6121-5 ####[facility]IA [id number] [address] [address] [place] GROSS DESCRIPTION A. Skin Normal [facility] Comment on above: Order Comment: Speci men Type: TISSUE SPECIMENOrdering Facility: [facility] Address: [address] [place] [address] Result Comment: Rece ived in formalin is a 1.0 x 0.6 x 0.1 cm shave of skin. On the skin surface there is a 0.8 cm kaur-red and minimally elevated area. The specimen is bisected. Totally submitted in one cassette. AJB March 01, 2025 2:05 PM Gross examination performed at [facility], [address] [place] [address] Performed By: #### 6 6121-5 ####[facility]CLIA [id number] [address] SKIN / NAIL BIOPSYon 025 Type [...] dressing applied Dressing type: bandage and petrolatum [facility] Free PSA [Mass/Vol]on 2024 Free PSA/Total PSA [Mass fraction] 44 % Normal [facility] Comment on above: Order Comment: Speci men Type: BLOOD SPECIMENOrdering Facility: [facility] Address: [address] [place] [address] Result Comment: Tota l and free PSA [...] 12.2% 15.8% Performed By: #### 1 0886-0 ####[facility]IA [id number] [place] [address] [place] Prostate specific Ag [Mass/Vol] 0.34 ng/mL Normal <2.60 [facility] Comment on above: Order Comment: Speci men Type: BLOOD SPECIMENOrdering Facility: [facility] Address: [address] [place] [address] Result Comment: Tota l PSA test methodology used is the Electrochemiluminescence Immunoassay by Symone Arlettie. Total PSA values by differing methodologies cannot be interchanged. Performed By: #### 1 0886-0 ####[facility]IA [id number] [address] [place] CNOVon 02-01-2025 CNOV Office Visit (DERMST ) -------- RAYA MCNAIR ([id number]) 1940 M Date Time Provider Department 02/01/25 [...] to your health care provider. José Sheikh APRN.[employer] 02/01/2025 1:30 PM Signed Department of Dermatology [...] bilateral lower (more content not included)... Normal [facility] Endocrinology Visit Reporton 01-17-2025 Endocrinology Visit Report [facility] [address] [place], [place] [address] OFFICE VISIT Date of Service: 01/17/25 MR#: [id number] Acct: [id number] Name: RAYA MCNAIR Rep #: [id number] : 1940 Provider: TAO ram Age/Sex: 84/M [facility] Status: Signed Intake Vital Signs 07/19/24 09:30 01/17/25 09:25 Height 5 ft 1 in 5 ft 9.5 in Weight: 235 lb BMI 34.2 BP 142/89 H Blood Pressure Location Lt brachial Position Sitting Pulse 65 Pulse Source Monitor Pulse Oximetry (%) 96 Oxygen Delivery Method room air Intake Visit Reasons: 6 M FU Chief Complaint: f/u diabetes Base Manager Required: No Accompanied by: Self Is patient [...] HEALTH 03/18/21 0 01/17/25 History mg-copper 1 fx-khffod-nbcbvc capsule atorvastatin 40 mg tablet 40 mg [...] artery disease Hypertension Atherosclerotic heart disease of [place] mo[place] coronary artery without angina pectoris Surgical History [...] to vickie (more content not included)... Normal [facility] - Hematology and Cell countsOrdered By: Holli Arredondo on 01-17-2025 HbA1c (Bld) [Mass fraction] 5.5 % 4.2-6.3 [facility] Gastroenterology Visit Repor ton 01-15-2025 Gastroenterology Visit Report [facility] [address] [place] [address] OFFICE VISIT Date of Service: 01/15/25 MR#: [id number] Acct: [id number] Name: RAYA MCNAIR Rep #: [id number] : 1940 Provider: Vernon Prado DO Age/Sex: 84/M Location: [facility] Status: Signed Intake Vital Signs 10/19/23 10:05 [...] HEALTH 03/18/21 0 01/15/25 History mg-copper 1 so-fbismc-kzeljc capsule atorvastatin 40 mg tablet 40 mg [...] artery disease Hypertension Atherosclerotic heart disease of [place] coronary artery without angina pectoris Surgical History [...] *I established 09.14.22 with referral from his corporate intern. Morning diarrhea 1-2 times a day with watery stools for many years without abdominal pain, mucus, blood or incontinence; previously diagnosed with celiac (does not follow celiac diet), unable to identify triggers. 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 Normal [facility] Echo Complete W/ Contraston 01-02-2025 Echo Complete W/ Contrast [facility] [address] [place] [address] Echo Complete W/ Contrast 01/02/25 0822 MR#: [id number] Acct: [id number] Name: RAYA MCNAIR Rep #: [id number] : 1940 84 From: Parminder Parks MD Attending Dr: Dr. Parminder Parks MD Status: JOO MANCINI Ordering Dr: Parminder Parks MD Date: 01/02/25 Location: [facility] Sex: M N Admitted: Version 2 [...] Dictated: 01/02/25 0822 Date Transcribed: 01/02/25 1155 Hair Worker: Signed Normal [facility] Stress Reporton 01-02-2025 Stress Report [facility] Cardi[facility] Services [address] [place] [address] MR#: [id number] Acct: [id number] Name: RAYA MCNAIR Rep #: [id number] : 1940 84 From: Parminder Parks MD [...] RAPHAEL Date Dictated: 01/02/251699 Date Transcribed: 01/02/251699 Hair Worker: [place] Signed Normal [facility] Cardiology Visit Reporton Cardiology Visit Report [facility] [address] [place] [address] OFFICE VISIT Date of Service: 12/26/24 MR#: [id number] Acct: [id number] Name: RAYA MCNAIR Rep #: [id number] : 1940 Provider: Dr. Parminder Parks MD Age/Sex: 84/M Location: [facility] Status: Signed HPI HPI History of Present Illness Details: Raya Mcnair is an 84-year-old male presents the office today for a cardiovascular outpatient follow-up. He was evaluated at [facility] in February 2021 for increasing angina. He underwent a heart catheterization on 03/19/2021 that demonstrated multivessel coronary artery disease. He underwent drug-eluting stent to proximal OM2. He returned to [facility] on 04/03/2021 for a stage PCI and [...] Monitor Intake Visit Reasons: 1 Y FU Base Manager Required: No Accompanied by: Self Is patient [...] EYE HEALTH 03/18/21 12/26/24 History mg-copper 1 ze-xfcegj-lkfzhu capsule atorvastatin 40 mg tablet 40 mg [...] mL 12/01/24 12/26/24 Rx subcutaneous [facility] amlodipine 10 mg tablet 10 mg [...] artery disease Hypertension Atherosclerotic heart disease of [place] coronary artery without angina pectoris Surgical History [...] how long (more content not included)... Normal [facility] No Panel InformationOrdered By: Dao Raphael on 12-22-2024 [facility] [address] [place] [address] Internal Medicine Signed Patient: RAYA MCNAIR MR#: [id number] : 1940 Acct:[id number] Age/Sex: 84 / M Date of Service: [...] and colleagues, with an educational jena from [employer] HEDIS Measures HEDIS Measures Blood Pressure Result: 136/76 Systolic Blood Pressure: Systolic 130-139 Diastolic Blood Pressure: Diastolic <80 [facility] Medical History (Updated 12/22/24 @ [...] BP status: improving Target organ damage: No Bqu-oi-ztsxyq BP monitoring: home monitoring Symptoms Details: this [...] no lightheadedness, no (more content not included)... [facility] Work Phone: CNOVon 12-21-2024 CNOV Office Visit (GENM4) -------- RAYA MCNAIR ([id number]) 1940 M Date Time Provider Department 12/21/24 [...] No Does patient want to see a Aerodynamics Professor? No (yes to any of above refer [...] year old male SCC in situ (right anabaptist 2022), BCC (left mandible 2019), SCC (lower [...] 84 year old male SCC insitu (right anabaptist 2022), BCC (left mandible 2019), SCC (lower [...] stinging/burning areas (more content not included)... Normal [facility] 12-01-2024 SHARONN Telephone (Corridor PharmaceuticalsGABRIELLE) -------- RAYA MCNAIR ([id number]) 1940 M Date Time Provider Department 12/01/24 JOSE RAMON MEDINA During your visit today, we recorded the following information about you: Don Carranza 12/01/2024 1:33 PM Signed Jane from pt's PCP's office Dr. Raphael is requesting pt's Pathology results faxed to: [phone]/ATTN: Krista Contact info: [phone] Marifer Romano RN 12/01/2024 4:35 PM Signed [...] Units by mouth once daily. - vit A,C,J-Xuhj-Niyjqr (PRESERVISION AREDS) 7,160 unit- 113 mg-100 unit [...] Encounter Status:Closed by MARIFER ROMANO on 12/01/24 [facility] [id number] 11-27-2024 [id number] HNO ID: [id number] Author: SHANNON, NAFISA, RN Service: ? Author Type: Registered Nurse Type: [id number] Filed: 11/27/2024 12:51 Note Text: Discharge instructions: [...] questions or concerns during business hours call [phone] or after hours (after 5 pm or on the weekend) call [phone] and ask for the general surgery resident / fellow rent control office manager for further instructions. If you have increasing [...] shortness of breath or difficulty breathing Normal [facility] OPERATIVE NOon 11-27-2024 OPERATIVE NO HNO ID: [id number] Author: JOSE RAMON MEDINA MD Service: General Surgery Author Type: Physician Type: Operative Report Filed: 11/27/2024 14:59 Note Text: OPERATIVE/PROCEDURE REPORT LOG ID: [id number] SURGERY/PROCEDURE DATE: 11/27/2024 INCISION/PROCEDURE START TIME: 12:22 PM INCISION CLOSE/PROCEDURE END TIME: 12:33 PM SURGEON(S)/PROCEDURALIST (S) AND COAT OPERATOR(S): Surgeons and Role: * Jose Ramon Medina [...] November 27, 2024 TIME: 2:55 PM Normal [facility] SURGICAL PATHOLOGYon 024 CASE REPORT Normal [facility] Comment on above: Order Comment: Speci men Type: TISSUE SPECIMEN [facility]ing Facility[facility] Address: [address] [place] [address] Result Comment: Surg [facility] Pathology Report Case: [id number] Authorizing Provider: Jose Ramon Medina MD Collected: 11/27/2024 12:25 PM Ordering Location[facility] Received: 11/27/2024 05:16 PM Pathologist: Celestino García MD Specimen: Skin, Excision, left back melanoma Performed By: #### S #### [facility] CLIA [id number] [address] [place] [address] [place] CLINICAL HISTORY Normal [facility] Comment on above: Order Comment: Speci men Type: TISSUE SPECIMEN Ordering Facility: [facility] Address: [address] [place] [address] Result Comment: 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 S kin, left back, excision: - Scar and reactive changes consistent with prior procedure. - Negative for residual neoplasm. - Incidental intradermal nevus. SDB/EB 12/01/2024 Performed By: #### S #### [facility] CLIA [id number] [address] [place] [address] [place] FINAL PERFORMING LAB Normal [facility] Comment on above: Order Comment: Speci men Type: TISSUE SPECIMEN Ordering Facility: [facility] Address: [address] [place] [address] Result Comment: Diag nostic interpretation performed at [facility], [address] [place] [address] CLIA# [id number] Vp Transportation: Calixto Kraft M.D. Performed By: #### S #### [facility] CLIA [id number] [address] [place] [address] [place] GROSS DESCRIPTION Normal [facility] Comment on above: Order Comment: Jennie rodriguez Type: TISSUE SPECIMEN Ordering Facility: [facility] Address: [address] [place] [address] Result Comment: A. S kin, Excision Received [...] remainder of tissue. Gross examination performed at [facility], [address] [place] [address] FFS 11/27/2024 8:51 PM Performed By: #### S #### [facility] CLIA [id number] [address] [place], [place] [address]K [id number] [place] [address] CNOVon 11-16-2024 CNOV Office Visit (GENM4) -------- RAYA MCNAIR ([id number]) 1940 M Date Time Provider Department 11/16/24 [...] No Does patient want to see a Aerodynamics Professor? 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 [facility] C[facility]N Telephone (DERMST) -------- RAYA MCNAIR ([id number]) 1940 M Date Time Provider Department 11/09/24 [...] been determined by the performing laboratory within [facility]?s Hortencia Gary Pathology and Laboratory Medicine Department ([facility], [facility], [facility], [facility], [facility], [facility]ending [facility] To [facility], or [facility]) in [...] Montez Kristian, PA-C 11/09/2024 6:05 PM Signed [facility]ckerman RN 11/13/2024 10:20 AM Signed Reached out to general surgery nurse transitional care manager and [facility] scheduling to establish an appointment [...] 1 tabl (more content not included)... Normal [facility] CNOVon 11-02-2024 CNOV Office Visit (DERMST ) -------- RAYA MCNAIR ([id number]) 1940 M Date Time Provider Department 11/02/24 [...] are healing, please send your provider a Unblab message or call . CARE FOR YOUR [...] are healing, please send your provider a Unblab message or call . GENERAL [employer] [...] José Sheikh (more content not included)... Normal [facility] CRYOTHERAPY SKIN LESIONon Complexity: simple Destruction method: cryotherapy Informed consent: discussed and consent obtained Timeout: patient name, date of , surgical site, and procedure verified Lesion destroyed using liquid nitrogen: Yes Cryotherapy cycles: 2 Outcome: patient tolerated procedure well with no complications Post-procedure details: wound care instructions given [facility] SKIN / NAIL BIOPSYon 024 Type of [...] instructions given Dressing type: bandage and petrolatum [facility] Type of biopsy: tangential Informed consent: discussed [...] instructions given Dressing type: bandage and petrolatum [facility] SURGICAL PATHOLOGYon 024 BLOCK FOR ADDITIONAL BIOMARKERS/MOLECULAR STUDIES B1 Normal [facility] Comment on above: Order Comment: Speci men Type: TISSUE SPECIMEN Ordering Facility: [facility] Address: [address] [place] [address] Performed By: #### 6 6121-5 #### [facility] CLIA [id number] [address] [place] [address] [place] CASE REPORT Normal [facility] Comment on above: Order Comment: Speci men Type: TISSUE SPECIMEN Ordering Facility: [facility] Address: [address] [place] [address] Result Comment: Surg [facility] Pathology Report Case: [id number] Authorizing Provider: Corrie Stone PA-C Collected: 11/02/2024 01:45 PM Ordering Location: Dermatology Received: 11/02/2024 04:30 PM Pathologist: Celestino García MD Specimens: A) - Skin, Right Breast B) - Skin, Left Upper Back Performed By: #### 6 6121-5 #### [facility] CLIA [id number] [address] [place] [address] [place] DIAGNOSIS COMMENT Normal [facility] Comment on above: Order Comment: Speci men Type: TISSUE SPECIMEN Ordering Facility: [facility] Address: [address] [place] [address] Result Comment: B. H istologic sections demonstrate [...] been determined by the performing laboratory within [facility] ([facility], [facility], [facility], [facility], [facility], Pending Sale To [facility], or [facility]) in [...] appropriately. Performed By: #### 6 6121-5 #### [facility] CLIA [id number] [address] [place] [address] [place] FINAL DIAGNOSIS Normal [facility] Comment on above: Order Comment: Speci men Type: TISSUE SPECIMEN Ordering Facility: [facility] Address: [address] [place] [address] Result Comment: A. S kin, right breast, shave biopsy: - Inflamed seborrheic keratosis. B. Skin, left upper back, shave biopsy: - Melanoma, see comment and synoptic report. SDB/LX/mm/11/08/2024 Performed By: #### 6 6121-5 #### [facility] CLIA [id number] [address] [place] [address] [place] FINAL PERFORMING LAB Normal [facility] Comment on above: Order Comment: Speci men Type: TISSUE SPECIMEN Ordering Facility: [facility] Address: [address] [place] [address] Result Comment: Diag nostic interpretation performed at [facility], [address] [place] [address] CLIA# [id number] [employer]: Calixto Kraft M.D. Performed By: #### 6 6121-5 #### [facility] CLIA [id number] [address] [place] [address] [place] GROSS DESCRIPTION A. Skin Normal [facility] Comment on above: Order Comment: Speci men Type: TISSUE SPECIMEN Ordering Facility: [facility] Address: [address] [place] [address] Result Comment: Rece ived in formalin is [...] 2024 10:06 PM Gross examination performed at [facility], [address] [place] [address] Performed By: #### 6 6121-5 #### [facility] CLIA [id number] [address] [place] [address] [place] SYNOPTIC REPORT Normal [facility] Comment on above: Order Comment: Speci men Type: TISSUE SPECIMEN Ordering Facility: [facility] Address: [address] [place] [address] Result Comment: DANA MYRICK MELANOMA OF THE SKIN: Biopsy MELANOMA OF [...] pT2a Performed By: #### 6 6121-5 #### [facility] CLIA [id number] [address] [place] [address] OF [facility] Jamie 10-17-2024 MIKHAIL Telephone (DERMST) -------- RAYA MCNAIR ([id number]) 1940 M Date Time Provider Department 10/17/24 [...] Units by mouth once daily. - vit A,C,K-Oyqd-Ktlpbw (PRESERVISION AREDS) 7,160 unit- 113 mg-100 unit [...] Status:Closed by GHAZAL JORGE on 10/17/24 Normal [facility] CNOVon 10-10-2024 CNOV Office Visit (UROLIN ) -------- RAYA MCNAIR ([id number]) 1940 M Date Time Provider Department 10/10/24 8:30 AM HORTENCIA GERARD During your visit today, we [...] 400 Units by mouth once daily. vit A,C,P-Ddea-Uukgee (PRESERVISION AREDS) 7,160 unit- 113 mg-100 unit [...] neck swel (more content not included)... Normal [facility] No Panel Informationon 10-10 [facility] UA DIP, URINE (POC)on 2023 BILIRUBIN UA (POCT) Negative Negative [facility] CLARITY UA (POCT) Clear [facility] COLOR UA (POCT) Yellow [facility] GLUCOSE UA (POCT) Negative Negative mg/dL [facility] Hemoglobin Ql (U) Negative Negative [facility] KETONE UA (POCT) Negative Negative mg/dL [facility] LEUKOCYTES UA (POCT) Negative Negative [facility] NITRITE UA (POCT) Negative Negative [facility] PH UA (POCT) 6.5 4.5 - 8.0 [facility] Protein Ql (U) Negative Negative mg/dL [facility] SPECIFIC GRAVITY UA (POCT) 1.020 1.005 - 1.030 [facility] UROBILINOGEN UA (POCT) 0.2 Marcia l E.U./dL [facility] Location:[address], [place], [place], [address] [facility] POINT OF CARE URINE SEDIMENT B/Oon 024 BACTERIA, UR Negative Negative [facility] Casts LM.HPF (Urine sed) [#/Area] Negative Negative [facility] Leukocyte morphology finding Nom (Bld) 0 [facility] Nucleated RBC Manual cnt (Unsp spec) [#] 0 [facility] Urine sediment comments LM Matheus (Urine sed) none [facility] No Panel InformationOrdered By: Dao Raphael on 08-23-2024 [facility] [address] [place] [address] Internal Medicine Signed Patient: RAYA MCNAIR MR#: [id number] : 1940 Acct:[id number] Age/Sex: 84 / M Date of Service: [...] and colleagues, with an educational jena from [employer] HEDIS Measures HEDIS Measures 3008f BMI Recorded: Yes 1159F Documentation of Current Med Usage: Yes Blood Pressure Result: 149/68 Systolic Blood Pressure: Systolic >/=140 Diastolic Blood Pressure: Diastolic <80 [facility] Medical History (Updated 08/23/24 @ [...] no extremity swellin (more content not included)... [facility] Work Phone: CRYOTHERAPY SKIN LESIONon Complexity: simple [...] verbalized understanding and desires us to proceed. [facility] No Panel InformationOrdered By: Dao Raphael on 05-24-2024 [facility] [address] [place] [address] Internal Medicine Signed Patient: RAYA MCNAIR MR#: [id number] : 1940 Acct:[id number] Age/Sex: 84 / M Date of Service: [...] and colleagues, with an educational jena from [employer] HEDIS Measures HEDIS Measures 3008f BMI Recorded: [...] BP status: improving Target organ damage: No [id number]-[id number] BP monitoring: home monitoring and health professional Symptoms Details: this am at home 155/79,a few days prior 146/72 General symptoms: Denies: fatigue, anxiety or irri (more content not included)... [facility] Work Phone: ALT (SGPT) ser/plasOrdered B y: Dao Raphael on 01-26-2024 ALT [Catalytic activity/Vol] 16 U/L 7- [facility] Absolute lymphocyte countOrd ered By: Dao Hernandezis on 01-26-2024 Lymphocytes Auto (Unsp spec) [#/Vol] 2.5 10*3/uL 1.10-4.80 [facility] Albumin [Mass/volume] in Ser um or PlasmaOrdered By: Dao Raphael on 01-26-2024 Albumin [Mass/Vol] 4.3 g/dL 3.5-5.0 [facility] Albumin/Globulin [Mass Ratio ] in Serum or PlasmaOrdered By: Dao Raphael on 01-26-2024 Albumin/Globulin [Mass ratio] 2.2 {ratio} 1.1-2.2 [facility] Alkaline phosphatase [Enzyma tic activity/volume] in Serum or PlasmaOrdered By: Dao Raphael on 01-26-2024 ALP [Catalytic activity/Vol] 94 U/L 42-121 [facility] Aspartate aminotransferase [ Enzymatic activity/volume] in Serum or PlasmaOrdered By: Dao Raphael on 01-26-2024 AST [Catalytic activity/Vol] 17 U/L 10-41 [facility] Basophils Auto (Bld) [#/Vol] Ordered By: Dao Raphael on 01-26-2024 Basophils (Bld) [#/Vol] 11.7 10*3/uL 4.5-11.0 [facility] Basophils (Bld) [#/Vol] 0.1 10*3/uL 0.00-0.20 [facility] Basophils/100 WBC Auto (Bld) Ordered By: Dao Raphael on 01-26-2024 Basophils/100 WBC (Bld) 0.8 % 0.0-1.5 [facility] Bilirubin.total [Mass/volume ] in Serum or PlasmaOrdered By: Dao Raphael on 01-26-2024 Bilirubin [Mass/Vol] 0.5 mg/dL 0.3-1.5 [facility] CBC W Auto Differential pane l (Bld)on 01-26-2024 CBC W Reflex Manual Differential panel (Bld) AUTO DIFF Normal [facility] ([place] Comment on above: Performed By: #### 5 7021-8 #### [facility] [address] [place] [address] Platelets (Bld) [#/Vol] 258 10*3/uL Normal 150-450 [facility] ([place] Comment on above: Result Comment: Plat elet agglutination seen on slide review. Actual platelet count may be higher than reported. Recommend future testing include citrated sample for evaluation. Performed By: #### 5 7021-8 #### [address] [address] Basophils (Bld) [#/Vol] 0.1 10*3/uL Normal 0.00-0.20 [facility] ([place] Comment on above: Performed By: #### 5 7021-8 #### [address] [address] Basophils/100 WBC (Bld) 0.8 % Normal 0.0-1.5 [facility] ([place] Comment on above: Performed By: #### 5 7021-8 #### [address] [address] Eosinophils (Bld) [#/Vol] 0.4 10*3/uL High 0.00-0.33 [facility] ([place] Comment on above: Performed By: #### 5 7021-8 #### [address] [address] Eosinophils/100 WBC (Bld) 3.3 % High 0.0-3.0 [facility] ([place] Comment on above: Performed By: #### 5 7021-8 #### [address] [address] Erythrocyte distribution width (RBC) [Ratio] 14.4 % High 10.9-14.3 [facility] ([place] Comment on above: Performed By: #### 5 7021-8 #### [address] [address] Hematocrit (Bld) [Volume fraction] 41.5 % Normal 41.0-50.0 [facility] ([place] Comment on above: Performed By: #### 5 7021-8 #### [address] [address] Hemoglobin (Bld) [Mass/Vol] 13.4 g/dL Low 13.5-16.5 [facility] ([place] Comment on above: Performed By: #### 5 7021-8 #### [facility] [address] [place] [address] Lymphocytes Auto (Unsp spec) [#/Vol] 2.5 10*3/uL Normal 1.10-4.80 [facility] ([place] Comment on above: Performed By: #### 5 7021-8 #### [facility] [address] [place] [address] Lymphocytes/100 WBC (Bld) 21.7 % Low 24.0-44.0 [facility] ([place] Comment on above: Performed By: #### 5 7021-8 #### [facility] [address] [place] [address] MCH (RBC) [Entitic mass] 28.3 pg Normal 28.0-34.0 [facility] ([place] Comment on above: Performed By: #### 5 7021-8 #### [facility] [address] [place] [address] MCHC (RBC) [Mass/Vol] 32.3 g/dL Low 33.0-37.0 [facility] ([place]) Comment on above: Performed By: #### 5 7021-8 #### [facility] [address] [place] [address] MCV (RBC) [Entitic vol] 87.5 fL Normal 80.0-100.0 [facility] ([place]) Comment on above: Performed By: #### 5 7021-8 #### [facility] [address] [place] [address] Monocytes (Bld) [#/Vol] 0.9 10*3/uL High 0.20-0.70 [facility] ([place] Comment on above: Performed By: #### 5 7021-8 #### [facility] [address] [place] [address] Monocytes/100 WBC (Bld) 7.5 % Normal 3.4-9.0 [facility] ([place]) Comment on above: Performed By: #### 5 7021-8 #### [facility] [address] [place] [address] Neutrophils (Bld) [#/Vol] 7.8 10*3/uL Normal 1.83-8.70 [facility] ([place] Comment on above: Performed By: #### 5 7021-8 #### [facility] [address] [place] [address] Neutrophils/100 WBC (Bld) 66.7 % Normal 40.0-74.0 [facility] ([place] Comment on above: Performed By: #### 5 7021-8 #### [facility] [address] [place] [address] Platelet mean volume (Bld) [Entitic vol] 9.4 fL Normal 7.4-10.4 [facility] ([place] Comment on above: Performed By: #### 5 7021-8 #### [facility] [address] [place] [address] RBC (Bld) [#/Vol] 4.75 10*6/uL Normal 4.50-5.50 [facility] ([place] Comment on above: Performed By: #### 5 7021-8 #### [facility] [address] [place] [address] Carbon dioxide, total [Moles /volume] in Serum or PlasmaOrdered By: Dao Raphael on 01-26-2024 CO2 [Moles/Vol] 26 mmol/L 21-31 [facility] Chloride [Moles/volume] in S tatiana or PlasmaOrdered By: Dao Raphael on 01-26-2024 Chloride [Moles/Vol] 105 mmol/L 98-107 [facility] Comprehensive metabolic 2000 panelon 01-26-2024 Albumin [Mass/Vol] 4.3 g/dL Normal 3.5-5.0 [facility] ([place] Comment on above: Performed By: #### 3 016-3, LIPID, [id number] #### [facility] [address] [place] [address] Albumin/Globulin [Mass ratio] 2.2 {ratio} Normal 1.1-2.2 [facility] ([place] Comment on above: Performed By: #### 3 016-3, LIPID, [id number] #### [facility] [address] [place] [address] ALP [Catalytic activity/Vol] 94 U/L Normal 42-121 [facility] ([place] Comment on above: Performed By: #### 3 016-3, LIPID, [id number] #### [facility] [address] [place] [address] ALT [Catalytic activity/Vol] 16 U/L Normal 7-52 [facility] ([place] Comment on above: Performed By: #### 3 016-3, LIPID, [id number] #### [facility] [address] [place] [address] Anion gap [Moles/Vol] 8 mmol/L Normal 4-14 [facility] ([place]) Comment on above: Performed By: #### 3 016-3, LIPID, [id number] #### [facility] [address] [place] [address] AST [Catalytic activity/Vol] 17 U/L Normal 10-41 [facility] ([place] Comment on above: Performed By: #### 3 016-3, LIPID, [id number] #### [facility] [address] [place] [address] Bilirubin [Mass/Vol] 0.5 mg/dL Normal 0.3-1.5 [facility] ([place] Comment on above: Performed By: #### 3 016-3, LIPID, [id number] #### [facility] [address] [place] [address] Calcium [Mass/Vol] 9.2 mg/dL Normal 8.5-10.5 [facility] ([place] Comment on above: Performed By: #### 3 016-3, LIPID, [id number] #### [facility] [address] [place] [address] Chloride [Moles/Vol] 105 mmol/L Normal 98-107 [facility] ([place] Comment on above: Performed By: #### 3 016-3, LIPID, [id number] #### [facility] [address] [place] [address] CO2 [Moles/Vol] 26 mmol/L Normal 21-31 [facility] ([place] Comment on above: Performed By: #### 3 016-3, LIPID, [id number] #### [address] [address] Creatinine [Moles/Vol] 0.86 mg/dL Normal 0.70-1.30 [facility] ([place]) Comment on above: Performed By: #### 3 016-3, LIPID, [id number] #### [address] [address] Creatinine and Glomerular filtration rate.predicted panel (S/P/Bld) 103 mL/min Normal >60 [facility] ([place] Comment on above: Performed By: #### 3 016-3, LIPID, [id number] #### [address] [address] GFR/1.73 sq M.predicted among non-blacks MDRD (S/P/Bld) [Vol rate/Area] 85 mL/min/{1.73_m2} Normal >60 [facility] ([place] Comment on above: Performed By: #### 3 016-3, LIPID, [id number] #### [address] [address] Globulin (S) [Mass/Vol] 2.0 g/dL Normal 1.9-3.9 [facility] ([place]) Comment on above: Performed By: #### 3 016-3, LIPID, [id number] #### [facility] [address] [place] [address] Glucose [Mass/Vol] 90 mg/dL Normal 70-99 [facility] ([place] Comment on above: Performed By: #### 3 016-3, LIPID, [id number] #### [facility] [address] [place] [address] Potassium [Moles/Vol] 4.6 mmol/L Normal 3.6-5.0 [facility] ([place]) Comment on above: Performed By: #### 3 016-3, LIPID, [id number] #### [facility] [address] [place] [address] Protein [Mass/Vol] 6.3 g/dL Normal 6.2-8.0 [facility] ([place] Comment on above: Performed By: #### 3 016-3, LIPID, [id number] #### [facility] [address] [place] [address] Sodium [Moles/Vol] 139 mmol/L Normal 135-145 [facility] ([place] Comment on above: Performed By: #### 3 016-3, LIPID, [id number] #### [address] [address] Urea nitrogen [Mass/Vol] 22 mg/dL Normal 7-25 [facility] ([place] Comment on above: Performed By: #### 3 016-3, LIPID, [id number] #### [address] [address] Creatinine and Glomerular fi ltration rate.predicted panel (S/P/Bld)Ordered By: Dao Raphael on 01-26-2024 GFR/1.73 sq M.predicted MDRD (S/P/Bld) [Vol rate/Area] 103 mL/min/{1.73_m2} >60 [facility] Eosinophils Auto (Bld) [#/Vo l]Ordered By: Dao Raphael on 01-26-2024 Eosinophils (Bld) [#/Vol] 0.4 10*3/uL 0.00-0.33 [facility] Eosinophils/100 WBC Auto (Bl d)Ordered By: Dao Raphael on 01-26-2024 Eosinophils/100 WBC (Bld) 3.3 % 0.0-3.0 [facility] Erythrocyte distribution wid th Auto (RBC) [Ratio]Ordered By: Dao Raphael on 01-26-2024 Erythrocyte distribution width (RBC) [Ratio] 14.4 % 10.9-14.3 [facility] Estimated glomerular filtrat ion rate (GFR) non- AmericanOrdered By: Dao Raphael on 01-26-2024 GFR/1.73 sq M.predicted among non-blacks MDRD (S/P/Bld) [Vol rate/Area] 85 mL/min/{1.73_m2} >60 [facility] Hematocrit Auto (Bld) [Volum e fraction]Ordered By: Dao Raphael on 01-26-2024 Hematocrit (Bld) [Volume fraction] 41.5 % 41.0-50.0 [facility] Hemoglobin [Mass/volume] in BloodOrdered By: Dao Raphael on 01-26-2024 Hemoglobin (Bld) [Mass/Vol] 13.4 g/dL 13.5-16.5 [facility] Lipid Panelon 01-26-2024 Cholesterol [Mass/Vol] 104 mg/dL Normal 0-199 [facility] ([place]) Comment on above: Performed By: #### 3 016-3, LIPID, [id number] #### [facility] [address] [place] [address] Cholesterol in HDL [Mass/Vol] 38 mg/dL Low >39 [facility] ([place] Comment on above: Performed By: #### 3 016-3, LIPID, [id number] #### [facility] [address] [place] [address] Cholesterol in LDL [Mass/Vol] 55 mg/dL Normal 0-99 [facility] ([place] Comment on above: Performed By: #### 3 016-3, LIPID, [id number] #### [facility] [address] [place] [address] Cholesterol in LDL/Cholesterol in HDL [Mass ratio] 1.4 {ratio} Normal [facility] ([place] Comment on above: Result Comment: MEN WOMEN 1/2 Average Risk 1.00 1.47 Average Risk 3.55 3.22 2X Average Risk 6.25 5.03 3X Average Risk 7.99 6.14 Performed By: #### 3 016-3, LIPID, [id number] #### [facility] [address] [place] [address] Triglyceride [Mass/Vol] 72 mg/dL Normal 0-149 [facility] ([place]) Comment on above: Performed By: #### 3 016-3, LIPID, [id number] #### [facility] [address] [place] [address] Lymphocytes/100 WBC Auto (Bl d)Ordered By: Dao Raphael on 01-26-2024 Lymphocytes/100 WBC (Bld) 21.7 % 24.0-44.0 [facility] MCH Auto (RBC) [Entitic mass ]Ordered By: Dao Raphael on 01-26-2024 MCH (RBC) [Entitic mass] 28.3 pg 28.0-34.0 [facility] MCHC Auto (RBC) [Mass/Vol]Or dered By: Dao Raphael on 01-26-2024 MCHC (RBC) [Mass/Vol] 32.3 g/dL 33.0-37.0 [facility] MCV (mean corpuscular volume ) determinationOrdered By: Dao Raphael on 01-26-2024 MCV (RBC) [Entitic vol] 87.5 fL 80.0-100.0 [facility] Monocytes Auto (Bld) [#/Vol] Ordered By: Dao Raphael on 01-26-2024 Monocytes (Bld) [#/Vol] 0.9 10*3/uL 0.20-0.70 [facility] Monocytes/100 WBC Auto (Bld) Ordered By: Dao Raphael on 01-26-2024 Monocytes/100 WBC (Bld) 7.5 % 3.4-9.0 [facility] Neutrophils Auto (Bld) [#/Vo l]Ordered By: Dao Raphael on 01-26-2024 Neutrophils (Bld) [#/Vol] 7.8 10*3/uL 1.83-8.70 [facility] Neutrophils/100 WBC Auto (Bl d)Ordered By: Dao Raphael on 01-26-2024 Neutrophils/100 WBC (Bld) 66.7 % 40.0-74.0 [facility] Platelet mean volume Auto (B ld) [Entitic vol]Ordered By: Dao Raphael on 01-26-2024 Platelet mean volume (Bld) [Entitic vol] 9.4 fL 7.4-10.4 [facility] Platelets Auto (Bld) [#/Vol] Ordered By: Dao Raphael on 01-26-2024 Platelets (Bld) [#/Vol] 258 10*3/uL 150-450 [facility] Comment on above: Platelet agglutinati on seen on slide review. Actual platelet count may be higher than reported. Recommend future testing include citrated sample for evaluation. Potassium [Moles/volume] in Serum or PlasmaOrdered By: Doa Raphael on 01-26-2024 Potassium [Moles/Vol] 4.6 mmol/L 3.6-5.0 [facility] RBC Auto (Bld) [#/Vol]Ordere d By: Dao Raphael on 01-26-2024 RBC (Bld) [#/Vol] 4.75 10*6/uL 4.50-5.50 [facility] Serum globulin measurement ( mass/volume)Ordered By: Dao Raphael on 01-26-2024 Globulin (S) [Mass/Vol] 2.0 g/dL 1.9-3.9 [facility] Serum glucose measurement (m ass/volume)Ordered By: Dao Raphael on 01-26-2024 Glucose [Mass/Vol] 90 mg/dL 70-99 [facility] Serum or plasma anion gap de termination (moles/volume)Ordered By: Dao Raphael on 01-26-2024 Anion gap [Moles/Vol] 8 mmol/L 4-14 [facility] Serum or plasma calcium nii urement (mass/volume)Ordered By: Dao Raphael on 01-26-2024 Calcium [Mass/Vol] 9.2 mg/dL 8.5-10.5 [facility] Serum or plasma cholesterol in LDL measurement (mass/volume)Ordered By: Dao Raphael on 01-26-2024 Cholesterol in LDL [Mass/Vol] 55 mg/dL 0-99 [facility] [facility] Serum or plasma cholesterol measurement (mass/volume)Ordered By: Dao Raphael on 01-26-2024 Cholesterol [Mass/Vol] 104 mg/dL 0-199 [facility] Serum or plasma creatinine m easurement (moles/volume)Ordered By: Dao Raphael on 01-26-2024 Creatinine [Moles/Vol] 0.86 mg/dL 0.70-1.30 [facility] Serum or plasma high density lipoprotein (HDL) cholesterol measurementOrdered By: Dao Raphael on 01-26-2024 Cholesterol in HDL [Mass/Vol] 38 mg/dL >39 [facility] Serum or plasma low density lipoprotein (LDL) cholesterol/high density lipoprotein (HOrdered By: Dao Raphael on 01-26-2024 Cholesterol in LDL/Cholesterol in HDL [Mass ratio] 1.4 {ratio} [facility] Comment on above: MEN WOMEN1/2 Average Risk 1.00 1.47Average Risk 3.55 3.222X Average Risk 6.25 5.033X Average Risk 7.99 6.14 Serum or plasma sodium measu rement (moles/volume)Ordered By: Dao Raphael on 01-26-2024 Sodium [Moles/Vol] 139 mmol/L 135-145 [facility] Serum or plasma thyroid stim ulating hormone (TSH) measurementOrdered By: Dao Raphael on 01-26-2024 TSH Qn 1.40 uIU/mL 0.34-5.60 [facility] Serum or plasma triglyceride measurement (mass/volume)Ordered By: Dao Raphael on 01-26-2024 Triglyceride [Mass/Vol] 72 mg/dL 0-149 [facility] Serum or plasma urea nitroge n measurement (mass/volume)Ordered By: Dao Raphael on 01-26-2024 Urea nitrogen [Mass/Vol] 22 mg/dL 7-25 [facility] TSH SerPl-aCncon 01-26-2024 TSH Qn 1.40 uIU/mL Normal 0.34-5.60 [facility] ([place] Comment on above: Performed By: #### 3 016-3, LIPID, [id number] #### [facility] [address] [place] [address] Total protein bloodOrdered B y: Dao Raphael on 01-26-2024 Protein [Mass/Vol] 6.3 g/dL 6.2-8.0 [facility] Laboratory - Hematology and Cell countson 2024 HbA1c (Bld) [Mass fraction] 5.6 % 4.2-6.3 [facility] XR Chest PA and Lateralon IMPRESSION: No acute radiographic abnormality. Hair Worker: PSCLiz Transcribe Date/Time: Nov 25 2023 8:45A Dictated by : KIMBERLEY RAMOS MD This examination was interpreted and the report reviewed and electronically signed by: KIMBERLEY RAMOS MD on Nov 25 2023 8:46AM [facility] DIVISION OF RADIOLOGY * * *Final Report* [...] changes. DIVISION OF RADIOLOGY Provider, [facility] - 11/25/2023 * * *Final Report* [...] changes. IMPRESSION IMPRESSION: No acute radiographic abnormality. Hair Worker: PSCB Transcribe Date/Time: Nov 25 2023 8:45A Dictated by : KIMBERLEY RAMOS MD This examination was interpreted and the report reviewed and electronically signed by: KIMBERLEY RAMOS MD on Nov 25 2023 8:46AM EST [facility] Radiology Study observation (narrative) [facility] XR Chest PA and LateralOrder ed By: [facility] Provider on 11-25-2023 [facility] SURGICAL PATHOLOGY SKIN ONLY on 07-01-2023 Case Report Surgical Pathology Report Case: [id number] Authorizing Provider: José Sheikh, Collected: 06/29/2023 05:36 PM [employer]BER[employer] Ordering Location: Dermatology Received: 06/30/2023 08:29 AM Pathologist: aRfy Guardado MD, PhD Specimen: SKIN, Right Shoulder [facility] Diagnosis Comment Histologic sections demonstrate an [...] a drug reaction. Clinical correlation remains essential. [facility] FINAL DIAGNOSIS A. Skin, right shoul chaz, punch biopsy: - Subacute spongiotic dermatitis with eosinophils, see comment. APF/CATHY/jaswinder 07/01/2023 [facility] Gross Description A. SKIN Received in formalin is a cylindrical segment of skin and subcutaneous tissue measuring 0.5 x 0.4 x 0.5 cm. On the skin surface there is a 0.5 cm, kaur-brown, pigmented and flat area. The specimen is bisected. Totally submitted in formalin in one cassette. Gross examination performed at [facility], [address] [place] [address] 06/30/2023 1:20 PM [facility] Performing Lab Diagnostic interpretation performed at [facility], [address] [place], [place] [address] CLIA# [id number] [employer] Transportation: Calixto Kraft M.D. [facility] Hemoglobin A1con 06-26-2023 Average glucose Estimated from glycated hemoglobin (Bld) [Mass/Vol] 123 mg/dL Normal [facility] ([place] Comment on above: Performed By: #### H GBA1C #### [facility] [address] [place] [address] HbA1c (Bld) [Mass fraction] 5.9 % Normal 4.0-6.0 [facility] ([place] Comment on above: Performed By: #### H GBA1C #### [facility] [address] [place] [address] ALT (SGPT) ser/plasOrdered B y: Dao Raphael on 06-25-2023 ALT [Catalytic activity/Vol] 18 U/L Normal 10-63 [facility] Comment on above: Performed By: #### 2 4323-8, LIPID, [id number] #### [facility] [address] [place] [address] Absolute lymphocyte countOrd ered By: Dao Raphael on 06-25-2023 Lymphocytes Auto (Unsp spec) [#/Vol] 1.9 10*3/uL Normal 1.10-4.80 [facility] Comment on above: Performed By: #### 5 7021-8 #### [facility] [address] [place] [address] Absolute monocyte countOrder ed By: Dao Raphael on 06-25-2023 Monocytes (Bld) [#/Vol] 0.7 10*3/uL Normal 0.20-0.70 [facility] Comment on above: Performed By: #### 5 7021-8 #### [address] [address] Albumin [Mass/volume] in Ser um or PlasmaOrdered By: Dao Raphael on 06-25-2023 Albumin [Mass/Vol] 4.1 g/dL Normal 3.4-4.8 [facility] Comment on above: Performed By: #### 2 4323-8, LIPID, 6-3 #### [facility] [address] [place] [address] Albumin/Globulin [Mass Ratio ] in Serum or PlasmaOrdered By: Dao Raphael on 06-25-2023 Albumin/Globulin [Mass ratio] 1.4 {ratio} Normal 1.1-2.2 [facility] Comment on above: Performed By: #### 2 4323-8, LIPID, 6-3 #### [facility] [address] [place] [address] Alkaline phosphatase [Enzyma tic activity/volume] in Serum or PlasmaOrdered By: Dao Raphael on 06-25-2023 ALP [Catalytic activity/Vol] 81 U/L Normal 42-121 [facility] Comment on above: Performed By: #### 2 4323-8, LIPID, 6-3 #### [address] [address] Aspartate aminotransferase [ Enzymatic activity/volume] in Serum or PlasmaOrdered By: Dao Raphael on 06-25-2023 AST [Catalytic activity/Vol] 16 U/L Normal 10-41 [facility] Comment on above: Performed By: #### 2 4323-8, LIPID, 6-3 #### [address] [address] Automated basophil countOrde red By: Dao Raphael on 06-25-2023 Basophils (Bld) [#/Vol] 0.1 10*3/uL Normal 0.00-0.20 [facility] Comment on above: Performed By: #### 5 7021-8 #### [facility] [address] [place] [address] Automated blood erythrocyte count (number/volume)Ordered By: Dao Raphael on 06-25-2023 RBC (Bld) [#/Vol] 4.29 10*6/uL Low 4.50-5.50 [facility] Comment on above: Performed By: #### 5 7021-8 #### [address] [address] Automated blood hematocrit ( percentage)Ordered By: Dao Raphael on 06-25-2023 Hematocrit (Bld) [Volume fraction] 39.0 % Low 41.0-50.0 [facility] Comment on above: Performed By: #### 5 7021-8 #### [address] [address] Automated blood lymphocytes/ 100 leukocytesOrdered By: Dao Raphael on 06-25-2023 Lymphocytes/100 WBC (Bld) 20.0 % Low 24.0-44.0 [facility] Comment on above: Performed By: #### 5 7021-8 #### [address] [address] Automated blood neutrophil c ountOrdered By: Dao Raphael on 06-25-2023 Neutrophils (Bld) [#/Vol] 6.5 10*3/uL Normal 1.83-8.70 [facility] Comment on above: Performed By: #### 5 7021-8 #### [facility] [address] [place] [address] Automated blood platelet cou ntOrdered By: Dao Raphael on 06-25-2023 Platelets (Bld) [#/Vol] 272 10*3/uL Normal 150-450 [facility] Comment on above: Performed By: #### 5 7021-8 #### [address] [address] Automated blood platelet silvia n volume measurementOrdered By: Dao Raphael on 06-25-2023 Platelet mean volume (Bld) [Entitic vol] 9.9 fL Normal 7.4-10.4 [facility] Comment on above: Performed By: #### 5 7021-8 #### [facility] [address] [place] [address] Automated eosinophil countOr dered By: Dao Raphael on 06-25-2023 Eosinophils (Bld) [#/Vol] 0.4 10*3/uL High 0.00-0.33 [facility] Comment on above: Performed By: #### 5 7021-8 #### [facility] [address] [place] [address] Automated erythrocyte distri bution width ratioOrdered By: Dao Raphael on 06-25-2023 Erythrocyte distribution width (RBC) [Ratio] 15.3 % High 10.9-14.3 [facility] Comment on above: Performed By: #### 5 7021-8 #### [facility] [address] [place] [address] Automated erythrocyte mean c orpuscular hemoglobin (mass per erythrocyte)Ordered By: Dao Raphael on 06-25-2023 MCH (RBC) [Entitic mass] 30.3 pg Normal 28.0-34.0 [facility] Comment on above: Performed By: #### 5 7021-8 #### [facility] [address] [place] [address] Automated erythrocyte mean c orpuscular hemoglobin concentration measurement (mass/volOrdered By: Dao Raphael on 06-25-2023 MCHC (RBC) [Mass/Vol] 33.3 g/dL Normal 33.0-37.0 [facility] Comment on above: Performed By: #### 5 7021-8 #### [facility] [address] [place] [address] Automated neutrophil %Ordere d By: Dao Raphael on 06-25-2023 Neutrophils/100 WBC (Bld) 67.7 % Normal 40.0-74.0 [facility] Comment on above: Performed By: #### 5 7021-8 #### [facility] [address] [place] [address] Basophil %Ordered By: Dao Raphael on 06-25-2023 Basophils/100 WBC (Bld) 1.3 % Normal 0.0-1.5 [facility] Comment on above: Performed By: #### 5 7021-8 #### [facility] [address] [place] [address] Basophils Auto (Bld) [#/Vol] Ordered By: Dao Raphael on 06-25-2023 Basophils (Bld) [#/Vol] 9.7 10*3/uL 4.5-11.0 [facility] Bilirubin.total [Mass/volume ] in Serum or PlasmaOrdered By: Dao Raphael on 06-25-2023 Bilirubin [Mass/Vol] 0.7 mg/dL Normal 0.3-1.5 [facility] Comment on above: Performed By: #### 2 4323-8, LIPID, [id number] #### [facility] [address] [place] [address] Carbon dioxide, total [Moles /volume] in Serum or PlasmaOrdered By: Dao Raphael on 06-25-2023 CO2 [Moles/Vol] 28 mmol/L Normal 21-31 [facility] Comment on above: Performed By: #### 2 4323-8, LIPID, [id number] #### [facility] [address] [place] [address] Chloride [Moles/volume] in S tatiana or PlasmaOrdered By: Dao Raphael on 06-25-2023 Chloride [Moles/Vol] 106 mmol/L Normal 98-107 [facility] Comment on above: Performed By: #### 2 4323-8, LIPID, [id number] #### [facility] [address] [place] [address] Comprehensive metabolic 2000 panelon 07-28-2023 Creatinine and Glomerular filtration rate.predicted panel (S/P/Bld) 98 mL/min Normal >60 [facility] ([place]) Comment on above: Performed By: #### 2 4323-8, LIPID, [id number] #### [facility] [address] [place], [place] [address] (447) Creatinine and Glomerular fi ltration rate.predicted panel (S/P/Bld)Ordered By: Dao Raphael on 06-25-2023 GFR/1.73 sq M.predicted MDRD (S/P/Bld) [Vol rate/Area] 98 mL/min/{1.73_m2} >60 [facility] Eosinophil %Ordered By: Chilango Raphael on 06-25-2023 Eosinophils/100 WBC (Bld) 3.7 % High 0.0-3.0 [facility] Comment on above: Performed By: #### 5 7021-8 #### [facility] [address] [place], [place] [address] Estimated glomerular filtrat ion rate (GFR) non- AmericanOrdered By: Dao Raphael on 06-25-2023 GFR/1.73 sq M.predicted among non-blacks MDRD (S/P/Bld) [Vol rate/Area] 81 mL/min/{1.73_m2} Normal >60 [facility] Comment on above: Performed By: #### 2 4323-8, LIPID, [id number] #### [facility] [address] [place], [place] [address] Hemoglobin [Mass/volume] in BloodOrdered By: Dao Raphael on 06-25-2023 Hemoglobin (Bld) [Mass/Vol] 13.0 g/dL Low 13.5-16.5 [facility] Comment on above: Performed By: #### 5 7021-8 #### [facility] [address] [place], [place] [address] (746) MCV (mean corpuscular volume ) determinationOrdered By: Dao Raphael on 06-25-2023 MCV (RBC) [Entitic vol] 91.0 fL Normal 80.0-100.0 [facility] Comment on above: Performed By: #### 5 7021-8 #### [facility] [address] [place] [address] Microalbum/Creatinine Ratio, Uron 06-25-2023 Albumin Unsp time DL <= 20 mg/L (U) [Mass/Time] Normal <19.0 [facility] ([place] Comment on above: Result Comment: LELE ENT UNABLE TO VOID Performed By: #### U MALBCRE #### [facility] [address] [place] [address] Albumin/Creatinine DL <= 20 mg/L (24H U) [Ratio] Normal <30.0 [facility] ([place] Comment on above: Result Comment: LELE ENT UNABLE TO VOID Performed By: #### U MALBCRE #### [facility] [address] [place] [address] Creatinine (U) [Mass/Vol] Normal 22.0-328.0 [facility] ([place] Comment on above: Result Comment: LELE ENT UNABLE TO VOID Performed By: #### U MALBCRE #### [address] [address] Monocyte %Ordered By: Dao Raphael on 06-25-2023 Monocytes/100 WBC (Bld) 7.3 % Normal 3.4-9.0 [facility] Comment on above: Performed By: #### 5 7021-8 #### [facility] [address] [place] [address] Potassium [Moles/volume] in Serum or PlasmaOrdered By: Dao Raphael on 06-25-2023 Potassium [Moles/Vol] 4.5 mmol/L Normal 3.6-5.0 [facility] Comment on above: Performed By: #### 2 4323-8, LIPID, [id number] #### [address] [address] Serum globulin measurement ( mass/volume)Ordered By: Dao Raphael on 06-25-2023 Globulin (S) [Mass/Vol] 3.0 g/dL Normal 1.9-3.9 [facility] Comment on above: Performed By: #### 2 4323-8, LIPID, [id number] #### [facility] [address] [place] [address] Serum glucose measurement (m ass/volume)Ordered By: Dao Raphael on 06-25-2023 Glucose [Mass/Vol] 95 mg/dL Normal 70-99 [facility] Comment on above: Performed By: #### 2 4323-8, LIPID, [id number] #### [facility] [address] [place] [address] Serum or plasma anion gap de termination (moles/volume)Ordered By: Dao Raphael on 06-25-2023 Anion gap [Moles/Vol] 7.0 mmol/L Normal 3-11 [facility] Comment on above: Performed By: #### 2 4323-8, LIPID, [id number] #### [facility] [address] [place] [address] Serum or plasma calcium nii urement (mass/volume)Ordered By: Dao Raphael on 06-25-2023 Calcium [Mass/Vol] 9.5 mg/dL Normal 8.5-10.5 [facility] Comment on above: Performed By: #### 2 4323-8, LIPID, [id number] #### [facility] [address] [place] [address] Serum or plasma cholesterol in LDL measurement (mass/volume)Ordered By: Dao Raphael on 06-25-2023 Cholesterol in LDL [Mass/Vol] 65 mg/dL Normal <129 [facility] Comment on above: Performed By: #### 2 4323-8, LIPID, [id number] #### [facility] [address] [place] [address] Serum or plasma cholesterol measurement (mass/volume)Ordered By: Dao Raphael on 06-25-2023 Cholesterol [Mass/Vol] 117 mg/dL Low 140-200 [facility] Comment on above: Performed By: #### 2 4323-8, LIPID, [id number] #### [facility] [address] [place] [address] Serum or plasma creatinine m easurement (moles/volume)Ordered By: Dao Raphael on 06-25-2023 Creatinine [Moles/Vol] 0.9 mg/dL Normal 0.6-1.3 [facility] Comment on above: Performed By: #### 2 4323-8, LIPID, [id number] #### [facility] [address] [place] [address] Serum or plasma high density lipoprotein (HDL) cholesterol measurementOrdered By: Dao Raphael on 06-25-2023 Cholesterol in HDL [Mass/Vol] 45 mg/dL Normal 29-71 [facility] Comment on above: Performed By: #### 2 4323-8, LIPID, 6-3 #### [facility] [address] [place] [address] Serum or plasma low density lipoprotein (LDL) cholesterol/high density lipoprotein (HOrdered By: Dao Raphael on 06-25-2023 Cholesterol in LDL/Cholesterol in HDL [Mass ratio] 1.4 {ratio} Normal [facility] Comment on above: MEN WOMEN1/2 Average Risk 1.00 1.47Average Risk 3.55 3.222X Average Risk 6.25 5.033X Average Risk 7.99 6.14 Result Comment: MEN WOMEN 1/2 Average Risk 1.00 1.47 Average Risk 3.55 3.22 2X Average Risk 6.25 5.03 3X Average Risk 7.99 6.14 Performed By: #### 2 4323-8, LIPID, [id number] #### [facility] [address] [place] [address] Serum or plasma sodium measu rement (moles/volume)Ordered By: Dao Raphael on 06-25-2023 Sodium [Moles/Vol] 141 mmol/L Normal 135-145 [facility] Comment on above: Performed By: #### 2 4323-8, LIPID, [id number] #### [facility] [address] [place] [address] Serum or plasma thyroid stim ulating hormone (TSH) measurementOrdered By: Dao Raphael on 06-25-2023 TSH Qn 1.24 uIU/mL Normal 0.34-5.60 [facility] Comment on above: Performed By: #### 2 4323-8, LIPID, [id number] #### [facility] [address] [place] [address] Serum or plasma triglyceride measurement (mass/volume)Ordered By: Dao Raphael on 06-25-2023 Triglyceride [Mass/Vol] 72 mg/dL Normal 41-189 [facility] Comment on above: Performed By: #### 2 4323-8, LIPID, [id number] #### [address] [address] Serum or plasma urea nitroge n measurement (mass/volume)Ordered By: Dao Rapheal on 06-25-2023 Urea nitrogen [Mass/Vol] 21 mg/dL High 6-20 [facility] Comment on above: Performed By: #### 2 4323-8, LIPID, [id number] #### [address] [address] Total protein bloodOrdered B y: Dao Raphael on 06-25-2023 Protein [Mass/Vol] 7.1 g/dL Normal 5.9-7.8 [facility] Comment on above: Performed By: #### 2 4323-8, LIPID, [id number] #### [facility] [address] [place] [address] Laboratory - Hematology and Cell countson 06-09-2023 HbA1c (Bld) [Mass fraction] 5.5 % 4.2-6.3 [facility] UA DIP, URINE (POC)on 2022 BILIRUBIN UA (POCT) Negative Negative [facility] CLARITY UA (POCT) Clear [facility] COLOR UA (POCT) Yellow [facility] GLUCOSE UA (POCT) Negative Negative mg/dL [facility] HEMOGLOBIN/BLOOD UA (POCT) Small Abnormal Negative [facility] KETONE UA (POCT) Trace Negative mg/dL [facility] LEUKOCYTES UA (POCT) Large Abnormal Negative [facility] NITRITE UA (POCT) Positive Abnormal Negative [facility] PH UA (POCT) 5.5 4.5 - 8.0 [facility] Protein Ql (U) 30 mg/dL Abnormal Negative mg/dL [facility] SPECIFIC GRAVITY UA (POCT) 1.025 1.005 - 1.030 [facility] UROBILINOGEN UA (POCT) 0.2 E.U./dL Marcia l E.U./dL [facility] URINE SEDIMENT B/Oon 023 BACTERIA, UR cocci and rods Negative [facility] Casts LM.HPF (Urine sed) [#/Area] [facility] Leukocyte morphology finding Nom (Bld) 0 - 5 HPF [facility] Nucleated RBC Manual cnt (Unsp spec) [#] 0 HPF 0 - 3 HPF [facility] Urine sediment comments LM Matheus (Urine sed) [facility] SURGICAL PATHOLOGY SKIN ONLY on 01-13-2023 Case Report Surgical Pathology Report Case: [id number] Authorizing Provider: José Sheikh APRN.[employer] Collected: 01/12/2023 10:26 AM Ordering Location: Dermatology Received: 01/12/2023 01:00 PM Pathologist: Gracia Silva MD Specimen: SKIN, Left Preauricular Area [facility] FINAL DIAGNOSIS Skin, left preauricu lar area, shave biopsy: - Hypertrophic actinic keratosis. JK/LSP/kari 01/13/2023 [facility] Gross Description A. SKIN Received in formalin is a 0.8 x 0.7 x 0.3 cm shave of skin. On the skin surface there is a 0.7 cm kaur, elevated area. The specimen is bisected. Totally submitted in one cassette. Gross examination performed at [facility], [facility] [place] [address] [facility] 01/12/2023 9:59 PM [facility] Performing Lab Diagnostic interpretation performed at [facility], [address] [place] [address] [facility] [address] CLIA# [id number] [employer] Transportation: Calixto Kraft M.D. [facility] Laboratory - Hematology and Cell countson 12-14-2022 HbA1c (Bld) [Mass fraction] 5.4 % 4.2-6.3 [facility] Absolute lymphocyte countOrd ered By: Vernon Prado on 12-08-2022 Lymphocytes Auto (Unsp spec) [#/Vol] 1.73 10*3/uL 0.83-4.51 [facility] Basophil percentageOrdered B y: Vernon Prado on 12-08-2022 Basophils/100 WBC (Bld) 0.5 % 0-1 [facility] Bilirubin [Mass/Vol] 0.50 mg/dL 0.20-1.00 [facility] Comment on above: For patients on eltr ombopag therapy, use of [employer] [place] TBIL is not recommended. Chloride [Moles/Vol] 104 mmol/L 98-107 [facility] Eosinophils/100 WBC (Bld) 2.2 % 0-5 [facility] Glucose [Mass/Vol] 96 mg/dL 74-106 [facility] Neutrophils (Bld) [#/Vol] 9.3 10*3/uL 2.0-7.7 [facility] Neutrophils/100 WBC (Bld) 76.1 % 47-70 [facility] Potassium [Moles/Vol] 3.4 mmol/L 3.5-5.1 [facility] Protein [Mass/Vol] 7.0 g/dL 6.4-8.2 [facility] Sodium [Moles/Vol] 139 mmol/L 136-145 [facility] WBC (Bld) [#/Vol] 12.2 10*3/uL 4.4-11.0 [facility] Blood erythrocytes count (nu mber/volume)Ordered By: Vernon Prado on 12-08-2022 RBC (Bld) [#/Vol] 4.26 10*6/uL 4.6-6.2 [facility] Blood hemoglobin measurement (mass/volume)Ordered By: Vernon Prado on 12-08-2022 Hemoglobin (Bld) [Mass/Vol] 12.6 g/dL 13.0-16.5 [facility] Blood lymphocytes/100 leukoc ytesOrdered By: Vernon Prado on 12-08-2022 Lymphocytes/100 WBC (Bld) 14.2 % 19-41 [facility] Blood monocytes/100 leukocyt esOrdered By: Vernno Prado on 12-08-2022 Monocytes/100 WBC (Bld) 6.3 % 0-10 [facility] Blood platelet mean volumeOr dered By: Vernon Prado on 12-08-2022 Platelet mean volume (Bld) [Entitic vol] 10.1 fL 6.2-12.0 [facility] Determination of erythrocyte mean corpuscular volume (MCV)Ordered By: Vernon Prado on 12-08-2022 MCV (RBC) [Entitic vol] 90.4 fL 80-94 [facility] Erythrocyte sedimentation ra teOrdered By: Vernon Prado on 12-08-2022 ESR (Bld) [Velocity] 25 mm/h 0-20 [facility] Hematocrit Auto (Bld) [Volum e fraction]Ordered By: Vernon Prado on 12-08-2022 Hematocrit (Bld) [Volume fraction] 38.5 % 40-54 [facility] - Chemistry and C hemistry - challengeOrdered By: Vernon Prado on 12-08-2022 ALP [Catalytic activity/Vol] 117 U/L 45-117 [facility] ALT [Catalytic activity/Vol] 25 U/L 16-61 [facility] CO2 [Moles/Vol] 27.0 mmol/L 21.0-32.0 [facility] Globulin (S) [Mass/Vol] 3.6 g/dL 2.2-4.2 [facility] Urea nitrogen/Creatinine [Mass ratio] 31.1 mg/mg 10-20 [facility] Laboratory - Hematology and Cell countsOrdered By: Vernon Prado on 12-08-2022 Erythrocyte distribution width (RBC) [Entitic vol] 48.5 fL 35.1-43.9 [facility] Erythrocyte distribution width (RBC) [Ratio] 14.7 % 11.6-14.6 [facility] Immature granulocytes/100 WBC (Bld) 0.700 % 0.0-0.9 [facility] Comment on above: IG% - Immature Granu locytes (promyelocytes, myelocytes and metamyelocytes) > 1% indicates that a LEFT SHIFT is Present. MCH (RBC) [Entitic mass] 29.6 pg 27.0-32.0 [facility] Nucleated RBC/100 WBC (Bld) [Ratio] 0 % 0-5 [facility] MCHC Auto (RBC) [Mass/Vol]Or dered By: Vernon Prado on 12-08-2022 MCHC (RBC) [Mass/Vol] 32.7 g/dL 32-36 [facility] No Panel InformationOrdered By: Vernon Prado on 12-08-2022 Bordetella pertussis IgG Antibody 3.25 index 0.00-0.94 [facility] Comment on above: Negative <0.95 Equiv ocal 0.95 - 1.04 Positive >1.04Performed at: [facility] [address] [id number] Director: Kulwinder Schaefer PhD, Phone: [phone] at: [facility] [address] [id number] Director: Derrick Pedro MD, Phone: [phone] Estimated GFR (MDRD) Amer 124 mL/min >60 [facility] Comment on above: GFR Calc Estimated GFR (MDRD) Non-Af Amer 102 mL/min >60 [facility] Comment on above: Non- GFR Calc Rubella IgG Antibody Reactive Nonreactive [facility] Comment on above: Antibody Results Int erpretation of Immune Status Non Reactive Presumed Non-Immune Equivocal Equivocal Reactive Presumed Immune Platelets bldOrdered By: Gm Prado on 12-08-2022 Platelets (Bld) [#/Vol] 308 10*3/uL 150-450 [facility] Qualitative QuantiFERON-TB g old in tube testOrdered By: Vernon Prado on 12-08-2022 M. tuberculosis tuberculin stim IFN-g Ql (Bld) 0.01 IU/mL . [facility] Serum Varicella zoster virus IgG antibody assay by immunoassay (units/volume)Ordered By: Vernon Prado on 12-08-2022 VZV IgG IA Qn (S) 2797 index Immune >165 [facility] Comment on above: Negative <135 Equivo evi 135 - 165 Positive >165A positive result generally indicates exposure to thepathogen or administration of specific immunoglobulins,but it is not indication of active infection or stageof disease. Serum mumps virus IgM antibo dy assay (units/volume)Ordered By: Vernon Prado on 12-08-2022 MuV IgM Qn (S) < 0.80 AU 0.00-0.79 [facility] Comment on above: Negative < 0.80 Bord vicky 0.80 - 1.20 Positive > 1.20Note: The presence of IgM specific antibody should beinterpreted in conjunction with the patient's clinicalhistory and exposure risk when an acute infection issuspected. Serum or plasma C reactive p rotein measurement (mass/volume)Ordered By: Vernon Prado on 12-08-2022 CRP [Mass/Vol] 3.98 mg/L 0.0-3.0 [facility] Comment on above: C-Reactive Protein ( CRP) provides useful information for thediagnosis, therapy and monitoring of inflammatory processesand associated diseases. For the evaluation of Relative Riskfor Cardiovascular Disease, a High Sensitivity CRP (HSCRP)should be ordered. Serum or plasma albumin nii urement (mass/volume)Ordered By: Vernon Prado on 12-08-2022 Albumin [Mass/Vol] 3.4 g/dL 3.2-5.0 [facility] Serum or plasma albumin/glob ulin mass ratioOrdered By: Vernon Prado on 12-08-2022 Albumin/Globulin [Mass ratio] 0.9 {ratio} 0.9-2.4 [facility] Serum or plasma calcium nii urement (mass/volume)Ordered By: Vernon Prado on 12-08-2022 Calcium [Mass/Vol] 8.8 mg/dL 8.5-10.1 [facility] Serum or plasma creatinine m easurement (mass/volume)Ordered By: Vernon Prado on 12-08-2022 Creatinine [Mass/Vol] 0.77 mg/dL 0.70-1.30 [facility] Comment on above: The validity of the calculated GFR & GFRAA in patients over 70 years has not been determined. Clinical correlation is essential. Serum or plasma urea nitroge n measurement (mass/volume)Ordered By: Vernon Prado on 12-08-2022 Urea nitrogen [Mass/Vol] 24 mg/dL 7-18 [facility] Thin prep Papanicolaou smear with manual screeningOrdered By: Vernon Prado on 12-08-2022 Thin prep Papanicolaou smear with manual screening 12 U/L 15-37 [facility] Thin prep Papanicolaou smear with manual screening 8 5-15 [facility] Thin prep Papanicolaou smear with manual screening Comment . [facility] Comment on above: QuantiFERON-TB Gold Plus [...] smear with manual screening 0.02 IU/mL . [facility] Thin prep Papanicolaou smear with manual screening > 10.00 IU/mL . [facility] Thin prep Papanicolaou smear with manual screening Negative Negative [facility] Comment on above: No response to [...] C. difficile DNA MARTITA+probe Ql (Unsp spec) [facility] Lower GI hemoglobin IA Ql (S tl)Ordered By: Vernon Prado on 09-15-2022 Stool Occult Blood (THANH) Positive [facility] No Panel InformationOrdered By: Vernon Prado on 09-15-2022 Miscellaneous Test See comment [facility] Comment on above: No Salmonella or Jackie gella recovered.No Campylobacter species isolated.Negative for E.coli Shiga Toxin EIA.[facility] Stool Calprotectin 37 ug/g 0-120 [facility] Comment on above: Concentration Interp retation Follow-Up<16 - 50 ug/g Normal None>50 -120 ug/g Borderline Re-evaluate in 4-6 weeks >120 ug/g Abnormal Repeat as clinically indicatedPerformed at: [address] [id number] Director: Kulwinder Schaefer PhD, Phone: [phone] at: [address] [id number] Director: Derrick Pedro MD, Phone: [phone] Stool Neutral Fats Increased . [facility] Comment on above: Normal (<60 Droplets /HPF) Stool Pancreatic Elastase 194 >200 [facility] Comment on above: Result Units: ug [address]g Severe Pancreatic Insufficiency: <100 Moderate Pancreatic Insufficiency: 100 - 200 Normal: >200Performed at: [address] [id number] Director: Derrick Pedro MD, Phone: [phone] Qualitative fecal fat or lip idsOrdered By: Vernon Prado on 09-15-2022 Fat Ql (Stl) Increased . [facility] Comment on above: Normal (<100 Droplet s/HPF) Stool lactoferrin detection by immunoassayOrdered By: Vernon Prado on 09-15-2022 Lactoferrin IA Ql (Stl) [facility] Absolute lymphocyte countOrd ered By: Vernon Prado on 09-14-2022 Lymphocytes Auto (Unsp spec) [#/Vol] 1.90 10*3/uL 0.83-4.51 [facility] Albumin Elph [Mass/Vol]Order ed By: Vernon Prado on 09-14-2022 Albumin [Mass/Vol] 3.8 g/dL 2.9-4.4 [facility] Atypical perinuclear antineu trophil cytoplasmic antibodies measurementOrdered By: Vernon Prado on 09-14-2022 Neutrophil cytoplasmic Ab.perinuclear.atypical IF (S) [Titer] <1:20 titer Neg:<1:20 [facility] Comment on above: The atypical pANCA p attern has been observed in asignificant percentage of patients with ulcerative colitis,primary sclerosing cholangitis and autoimmune hepatitis. Basophil percentageOrdered B y: Vernon Prado on 09-14-2022 Basophil percentage < 0.2 AI 0.0-0.9 [facility] Basophils/100 WBC (Bld) 0.6 % 0-1 [facility] Bilirubin [Mass/Vol] 0.80 mg/dL 0.20-1.00 [facility] Comment on above: For patients on eltr ombopag therapy, use of Dimension [place] TBIL is not recommended. Chloride [Moles/Vol] 103 mmol/L 98-107 [facility] Eosinophils/100 WBC (Bld) 2.2 % 0-5 [facility] Glucose [Mass/Vol] 98 mg/dL 74-106 [facility] Neutrophils (Bld) [#/Vol] 9.8 10*3/uL 2.0-7.7 [facility] Neutrophils/100 WBC (Bld) 75.2 % 47-70 [facility] Potassium [Moles/Vol] 3.6 mmol/L 3.5-5.1 [facility] Protein [Mass/Vol] 7.3 g/dL 6.4-8.2 [facility] Sodium [Moles/Vol] 139 mmol/L 136-145 [facility] WBC (Bld) [#/Vol] 13.0 10*3/uL 4.4-11.0 [facility] Blood erythrocytes count (nu mber/volume)Ordered By: Vernon Prado on 09-14-2022 RBC (Bld) [#/Vol] 4.47 10*6/uL 4.6-6.2 [facility] Blood hemoglobin measurement (mass/volume)Ordered By: Vernon Prado on 09-14-2022 Hemoglobin (Bld) [Mass/Vol] 12.9 g/dL 13.0-16.5 [facility] Blood lymphocytes/100 leukoc ytesOrdered By: Vernon Prado on 09-14-2022 Lymphocytes/100 WBC (Bld) 14.6 % 19-41 [facility] Blood monocytes/100 leukocyt esOrdered By: Vernon Prado on 09-14-2022 Monocytes/100 WBC (Bld) 6.8 % 0-10 [facility] Blood platelet mean volumeOr dered By: Vernon Prado on 09-14-2022 Platelet mean volume (Bld) [Entitic vol] 10.3 fL 6.2-12.0 [facility] Determination of erythrocyte mean corpuscular volume (MCV)Ordered By: Vernon Prado on 09-14-2022 MCV (RBC) [Entitic vol] 91.7 fL 80-94 [facility] Erythrocyte sedimentation ra teOrdered By: Vernon Prado on 09-14-2022 ESR (Bld) [Velocity] 16 mm/h 0-20 [facility] Hematocrit Auto (Bld) [Volum e fraction]Ordered By: Vernon Prado on 09-14-2022 Hematocrit (Bld) [Volume fraction] 41.0 % 40-54 [facility] Interpretation of serum or p lasma protein pattern by immunofixation (narrative resultOrdered By: Vernon Prado on 09-14-2022 Protein Fractions Immunofixation Matheus [Interp] See comment [facility] Comment on above: Result: Not Observed Laboratory - Chemistry and C hemistry - challengeOrdered By: Vernon Prado on 09-14-2022 ALP [Catalytic activity/Vol] 118 U/L 45-117 [facility] ALT [Catalytic activity/Vol] 24 U/L 16-61 [facility] CO2 [Moles/Vol] 26.0 mmol/L 21.0-32.0 [facility] Cobalamin (Vitamin B12) [Mass/Vol] 280 pg/mL 211-911 [facility] Urea nitrogen/Creatinine [Mass ratio] 20.8 mg/mg 10-20 [facility] Laboratory - Chemistry and C hemistry - challengeon 09-14-2022 Globulin (S) [Mass/Vol] 3.8 g/dL 2.2-4.2 [facility] Work Phone: Laboratory - Hematology and Cell countsOrdered By: Vernon Prado on 09-14-2022 Erythrocyte distribution width (RBC) [Entitic vol] 48.4 fL 35.1-43.9 [facility] Erythrocyte distribution width (RBC) [Ratio] 14.3 % 11.6-14.6 [facility] Immature granulocytes/100 WBC (Bld) 0.600 % 0.0-0.9 [facility] Comment on above: IG% - Immature Granu locytes (promyelocytes, myelocytes and metamyelocytes) > 1% indicates that a LEFT SHIFT is Present. MCH (RBC) [Entitic mass] 28.9 pg 27.0-32.0 [facility] Nucleated RBC/100 WBC (Bld) [Ratio] 0 % 0-5 [facility] MCHC Auto (RBC) [Mass/Vol]Or dered By: Vernon Prado on 09-14-2022 MCHC (RBC) [Mass/Vol] 31.5 g/dL 32-36 [facility] No Panel InformationOrdered By: Vernon Prado on 09-14-2022 Addendum Document Comment . [facility] Comment on above: Protein electrophore sis scan will follow via computer,mail, or parachute harness rigger delivery. Centromere B Antibody <0.2 AI 0.0-0.9 [facility] Endomysial IgA Antibody Negative Negative [facility] Estimated GFR (MDRD) Amer 102 mL/min >60 [facility] Comment on above: GFR Calc Estimated GFR (MDRD) Non-Af Amer 84 mL/min >60 [facility] Comment on above: Non- GFR Calc Free Triiodothyronine (T3) pg/dL 2.6 pg/mL 2.18-3.98 [facility] Immunoglobulin E 4 IU/mL 6-495 [facility] Comment on above: Performed at: [facility] [address] [id number] Director: Kulwinder Schaefer PhD, Phone: [phone] at: - Lab[address] [id number] Director: Derrick Pedro MD, Phone: [phone] Miscellaneous Test See comment [facility] Comment on above: TEST RESULT LIMITSIB [...] developed and its performance characteristics determined by [facility]. It has not been cleared or approved by the Food and Drug Administration. The FDA has determined that such clearance or approval is not necessary.Atypical pANCA Negative NegativeComments AbnormalSuggestive of Crohn's Disease with the very high risk of aggressive disease behavior (development of strictures or fistulae. TESTING PERFORMED AT [facility]. ORIGINAL REPORT ON FILE IN LAB CONTAINS ADDITIONAL TEST SITE INFORMATION. [employer] SALES REPRESENTATIVE Antibody <0.2 AI 0.0-0.9 [facility] Thyroid Stimulating Hormone (TSH) 1.19 uIU/mL 0.358-3.74 [facility] Platelets bldOrdered By: Gm Prado on 09-14-2022 Platelets (Bld) [#/Vol] 314 10*3/uL 150-450 [facility] Serum DNA double strand anti body assay (units/volume)Ordered By: Vernon Prado on 09-14-2022 DNA double strand Ab Qn (S) [IU]/mL 0-9 [facility] Comment on above: Negative <5 Equivoca l 5 - 9 Positive >9 Serum IgA measurement (units /volume)on 09-14-2022 IgA Qn (S) 124 mg/dL 61-437 [facility] Work Phone: Comment on above: Performed at: [address] [id number] Director: Kulwinder Schaefer PhD, Phone: [phone] Serum Mahsa-1 antibody assay (u nits/volume)Ordered By: Vernon Prado on 09-14-2022 Mahsa-1 extractable nuclear Ab Qn (S) <0.2 AI 0.0-0.9 [facility] Serum Scl-70 extractable nuc lear antibody assay (units/volume)Ordered By: Vernon Prado on 09-14-2022 SCL-70 extractable nuclear Ab Qn (S) <0.2 AI 0.0-0.9 [facility] Serum Garcia extractable nucl ear antibody detectionOrdered By: Vernon Prado on 09-14-2022 Garcia extractable nuclear Ab Ql (S) <0.2 AI 0.0-0.9 [facility] Serum edwkg-3-adlynelq measu rement by electrophoresisOrdered By: Vernon Prado on 09-14-2022 Alpha 1 globulin Elph [Mass/Vol] 0.3 g/dL 0.0-0.4 [facility] Alpha 1 globulin Elph [Mass/Vol] 1.0 g/dL 0.4-1.0 [facility] Serum classic neutrophil cyt oplasmic antibody assay (units/volume)Ordered By: Vernon Prado on 09-14-2022 Neutrophil cytoplasmic Ab.classic Qn (S) <1:20 titer Neg:<1:20 [facility] Serum globulin measurement ( mass/volume)Ordered By: Vernon Prado on 09-14-2022 Globulin (S) [Mass/Vol] 3.0 g/dL 2.2-3.9 [facility] Serum or plasma C reactive p rotein measurement (mass/volume)Ordered By: Vernon Prado on 09-14-2022 CRP [Mass/Vol] 5.90 mg/L 0.0-3.0 [facility] Comment on above: C-Reactive Protein ( CRP) provides useful information for thediagnosis, therapy and monitoring of inflammatory processesand associated diseases. For the evaluation of Relative Riskfor Cardiovascular Disease, a High Sensitivity CRP (HSCRP)should be ordered. Serum or plasma IgA measurem ent (mass/volume)Ordered By: Vernon Prado on 09-14-2022 IgA [Mass/Vol] 128 mg/dL 61-437 [facility] Serum or plasma IgG measurem ent (mass/volume)Ordered By: Vernon Prado on 09-14-2022 IgG [Mass/Vol] 934 mg/dL 603-1613 [facility] Serum or plasma IgM measurem ent (mass/volume)Ordered By: Vernon Prado on 09-14-2022 IgM [Mass/Vol] 91 mg/dL 15-143 [facility] Serum or plasma albumin nii urement (mass/volume)Ordered By: Vernon Prado on 09-14-2022 Albumin [Mass/Vol] 3.5 g/dL 3.2-5.0 [facility] Serum or plasma albumin/glob ulin mass ratioOrdered By: Vernon Prado on 09-14-2022 Albumin/Globulin [Mass ratio] 0.9 {ratio} 0.9-2.4 [facility] Serum or plasma beta globuli n measurement by electrophoresis (mass/volume)Ordered By: Vernon Prado on 09-14-2022 Beta globulin Elph [Mass/Vol] 0.8 g/dL 0.7-1.3 [facility] Serum or plasma calcium nii urement (mass/volume)Ordered By: Vernon Prado on 09-14-2022 Calcium [Mass/Vol] 8.8 mg/dL 8.5-10.1 [facility] Serum or plasma creatinine m easurement (mass/volume)Ordered By: Vernon Prado on 09-14-2022 Creatinine [Mass/Vol] 0.91 mg/dL 0.70-1.30 [facility] Comment on above: The validity of the calculated GFR & GFRAA in patients over 70 years has not been determined. Clinical correlation is essential. Serum or plasma gamma globul in measurement by electrophoresis (mass/volume)Ordered By: Vernon Prado on 09-14-2022 Gamma globulin Elph [Mass/Vol] 1.0 g/dL 0.4-1.8 [facility] Serum or plasma immunoelectr ophoresis interpretation (nominal result)Ordered By: Vernon Prado on 09-14-2022 Interpretation IEP [Interp] Comment . [facility] Comment on above: No monoclonality det ected. Serum or plasma urea nitroge n measurement (mass/volume)Ordered By: Vernon Prado on 09-14-2022 Urea nitrogen [Mass/Vol] 19 mg/dL 7-18 [facility] Serum perinuclear neutrophil cytoplasmic antibody titer by immunofluorescenceOrdered By: Vernon Prado on 09-14-2022 Neutrophil cytoplasmic Ab.perinuclear IF (S) [Titer] <1:20 titer Neg:<1:20 [facility] Comment on above: The presence of posi tive fluorescence exhibiting P-ANCA orC-ANCA patterns alone is not specific for the diagnosis ofWegener's Granulomatosis (WG) or microscopic polyangiitis.Decisions about treatment should not be based solely onANCA IFA results. The International ANCA Group Consensusrecommends follow up testing of positive sera with both OH-3 and MPO-ANCA enzyme immunoassays. As many as 5% serumsamples are positive only by EIA. Ref. AM J Clin [place]4884;111:507-513. Serum tissue transglutaminas e IgA antibody assay (units/volume)Ordered By: Vernon Prado on 09-14-2022 tTG IgA Qn (S) <2 U/mL 0-3 [facility] Comment on above: Negative 0 - 3 Weak Positive 4 - 10 Positive >10 Tissue Transglutaminase (tTG) has been identified as the endomysial antigen. Studies have demonstr- ated that endomysial IgA antibodies have over 99% specificity for gluten sensitive enteropathy. Thin prep Papanicolaou smear with manual screeningOrdered By: Vernon Prado on 09-14-2022 Thin prep Papanicolaou smear with manual screening 11 U/L 15-37 [facility] Thin prep Papanicolaou smear with manual screening 10 5-15 [facility] Thin prep Papanicolaou smear with manual screening 149 U/L 87-241 [facility] Thin prep Papanicolaou smear with manual screening 1.3 0.7-1.7 [facility] Total protein bloodOrdered B y: Vernon Prado on 09-14-2022 Protein [Mass/Vol] 6.8 g/dL 6.0-8.5 [facility] Absolute lymphocyte counton 06-15-2022 Lymphocytes Auto (Unsp spec) [#/Vol] 1.73 10*3/uL 0.83-4.51 [facility] Work Phone: [phone] Basophil percentageon 2021 Basophils/100 WBC (Bld) 0.6 % 0-1 [facility] Work Phone: [phone] Bilirubin [Mass/Vol] 0.40 mg/dL 0.20-1.00 [facility] Work Phone: Comment on above: For patients on eltr ombopag therapy, use of Dimension [place] TBIL is not recommended. Chloride [Moles/Vol] 103 mmol/L 98-107 [facility] Work Phone: Cholesterol [Mass/Vol] 88 mg/dL <200 [facility] Work Phone: Comment on above: <200 mg/dL Desirable 200-240 mg/dL Borderline >240 mg/dL High Risk Eosinophils/100 WBC (Bld) 2.7 % 0-5 [facility] Work Phone: [phone] Glucose [Mass/Vol] 109 mg/dL 74-106 [facility] Work Phone: Comment on above: Fasting Glucose resu lt from 100 to 125 mg/dL suggests IMPAIRED HOMEOSTASIS per A.D.A. criteria. Neutrophils (Bld) [#/Vol] 9.6 10*3/uL 2.0-7.7 [facility] Work Phone: [phone] Neutrophils/100 WBC (Bld) 75.3 % 47-70 [facility] Work Phone: [phone] Potassium [Moles/Vol] 4.2 mmol/L 3.5-5.1 [facility] Work Phone: [phone] Protein [Mass/Vol] 6.8 g/dL 6.4-8.2 [facility] Work Phone: [phone] Sodium [Moles/Vol] 139 mmol/L 136-145 [facility] Work Phone: Triglyceride [Mass/Vol] 104 mg/dL <199 [facility] Work Phone: Comment on above: The drugs N-Acetylcy steine and Metamizole may falsely depress this assay.Serum Triglycerides Reference Interval Normal <150 mg/dL Borderline high 150 - 199 mg/dL High 200 - 499 mg/dL Very High > or = 500 mg/dL WBC (Bld) [#/Vol] 12.7 10*3/uL 4.4-11.0 [facility] Work Phone: Blood erythrocytes count (nu mber/volume)on 06-15-2022 RBC (Bld) [#/Vol] 4.26 10*6/uL 4.6-6.2 [facility] Work Phone: Blood hemoglobin measurement (mass/volume)on 06-15-2022 Hemoglobin (Bld) [Mass/Vol] 12.6 g/dL 13.0-16.5 [facility] Work Phone: Blood lymphocytes/100 leukoc yteson 06-15-2022 Lymphocytes/100 WBC (Bld) 13.6 % 19-41 [facility] Work Phone: Blood monocytes/100 leukocyt eson 06-15-2022 Monocytes/100 WBC (Bld) 7.0 % 0-10 [facility] Work Phone: Blood platelet mean volumeon 06-15-2022 Platelet mean volume (Bld) [Entitic vol] 12.4 fL 6.2-12.0 [facility] Work Phone: Determination of erythrocyte mean corpuscular volume (MCV)on 06-15-2022 MCV (RBC) [Entitic vol] 92.7 fL 80-94 [facility] Work Phone: Hematocrit Auto (Bld) [Volum e fraction]on 06-15-2022 Hematocrit (Bld) [Volume fraction] 39.5 % 40-54 [facility] Work Phone: Laboratory - Chemistry and C hemistry - challengeon 06-15-2022 ALP [Catalytic activity/Vol] 101 U/L 45-117 [facility] Work Phone: ALT [Catalytic activity/Vol] 25 U/L 16-61 [facility] Work Phone: CO2 [Moles/Vol] 28.0 mmol/L 21.0-32.0 [facility] Work Phone: [phone] Globulin (S) [Mass/Vol] 3.5 g/dL 2.2-4.2 [facility] Work Phone: [phone] Urea nitrogen/Creatinine [Mass ratio] 20.8 mg/mg 10-20 [facility] Work Phone: Laboratory - Hematology and Cell countson 06-15-2022 Erythrocyte distribution width (RBC) [Entitic vol] 47.8 fL 35.1-43.9 [facility] Work Phone: [phone] Erythrocyte distribution width (RBC) [Ratio] 14.0 % 11.6-14.6 [facility] Work Phone: [phone] Immature granulocytes/100 WBC (Bld) 0.800 % 0.0-0.9 [facility] Work Phone: [phone] Comment on above: IG% - Immature Granu locytes (promyelocytes, myelocytes and metamyelocytes) > 1% indicates that a LEFT SHIFT is Present. MCH (RBC) [Entitic mass] 29.6 pg 27.0-32.0 [facility] Work Phone: [phone] Nucleated RBC/100 WBC (Bld) [Ratio] 0 % 0-5 [facility] Work Phone: [phone] MCHC Auto (RBC) [Mass/Vol]on 06-15-2022 MCHC (RBC) [Mass/Vol] 31.9 g/dL 32-36 [facility] Work Phone: [phone] No Panel Informationon 06-15 Urine Microalbumin/Creatinine Ratio 5.6 mg/g CRE <30 [facility] Work Phone: [phone] Estimated GFR (MDRD) Amer 109 mL/min >60 [facility] Work Phone: Comment on above: GFR Calc Estimated GFR (MDRD) Non-Af Amer 90 mL/min >60 [facility] Work Phone: Comment on above: Non- GFR Calc Thyroid Stimulating Hormone (TSH) 1.31 uIU/mL 0.358-3.74 [facility] Work Phone: Platelets bldon 06-15-2022 Platelets (Bld) [#/Vol] 269 10*3/uL 150-450 [facility] Work Phone: Serum or plasma albumin nii urement (mass/volume)on 06-15-2022 Albumin [Mass/Vol] 3.3 g/dL 3.2-5.0 [facility] Work Phone: Serum or plasma albumin/glob ulin mass ratioon 06-15-2022 Albumin/Globulin [Mass ratio] 0.9 {ratio} 0.9-2.4 [facility] Work Phone: Serum or plasma calcium nii urement (mass/volume)on 06-15-2022 Calcium [Mass/Vol] 9.0 mg/dL 8.5-10.1 [facility] Work Phone: Serum or plasma cholesterol in HDL measurement (mass/volume)on 06-15-2022 Cholesterol in HDL [Mass/Vol] 35 mg/dL >40 [facility] Work Phone: Comment on above: The drugs N-Acetylcy steine and Metamizole may falsely depress this assay. Reference Range HDL <40 mg/dL Low HDL Cholesterol HDL >or= 60 mg/dL High HDL Cholesterol Serum or plasma cholesterol in VLDL measurement (mass/volume)on 06-15-2022 Cholesterol in VLDL [Mass/Vol] 21 mg/dL 5-40 [facility] Work Phone: Serum or plasma creatinine m easurement (mass/volume)on 06-15-2022 Creatinine [Mass/Vol] 0.86 mg/dL 0.70-1.30 [facility] Work Phone: Comment on above: The validity of the calculated GFR & GFRAA in patients over 70 years has not been determined. Clinical correlation is essential. Serum or plasma low density lipoprotein (LDL) cholesterol measurement (mass/volume)on 06-15-2022 Cholesterol in LDL [Mass/Vol] 32 mg/dL 0-130 [facility] Work Phone: Serum or plasma urea nitroge n measurement (mass/volume)on 06-15-2022 Urea nitrogen [Mass/Vol] 18 mg/dL 7-18 [facility] Work Phone: Thin prep Papanicolaou smear with manual screeningon 06-15-2022 Thin prep Papanicolaou smear with manual screening 10.1 mg/L NO RANGE EST. [facility] Work Phone: Thin prep Papanicolaou smear with manual screening 12 U/L 15-37 [facility] Work Phone: Thin prep Papanicolaou smear with manual screening 8 5-15 [facility] Work Phone: Urine creatinine measurement (mass/volume)on 06-15-2022 Creatinine (U) [Mass/Vol] 180.00 mg/dL NO RANGE EST. [facility] Work Phone: Laboratory - Hematology and Cell countson 06-08-2022 HbA1c (Bld) [Mass fraction] 5.5 % 4.2-6.3 [facility] Work Phone: Laboratory - Hematology and Cell countson 02-25-2022 HbA1c (Bld) [Mass fraction] 6.2 % 4.2-6.3 [facility] Work Phone: ED NOTEon 06-28-2019 ED NOTE HNO ID: [id number] Author: Yohana LundbergRn) Marcello RN Service: ? Author Type: Registered Nurse Type: ED Notes Filed: 06/27/2019 11:41 PM Note Text: Discharge inst reviewed with pt, discussed follow up with urology, pt verbalized understanding via teach back method, pt stable upon departure from ED [facility] ED NOTE HNO ID: [id number] Author: Indy LundbergRn) Vicki RN Service: Nursing Author Type: Registered Nurse Type: ED Notes Filed: 06/27/2019 10:40 PM Note Text: Patient presents with bleeding from the tip of his penis. He had a lange placed today after prostate surgery and is concerned that there is bleeding Normal [facility] ED PROV NOTEon 06-28-2019 ED PROV NOTE HNO ID: [id number] Author: Elio Kelley MD Service: ? Author [...] stable SIGNATURE: MD Elio Anand MD 06/27/19 [id number] Normal [facility] Op Noteon 03-24-2018 HIM IP Note OR Blade Grader Operator Normal [facility] Progress Noteon 03-24-2018 HIM IP Note OR Blade Grader Operator Normal [facility] Progress Noteon 03-17-2018 HIM IP Note OR Blade Grader Operator Normal [facility] Clostridium difficile detect ion by polymerase chain reaction C. difficile DNA MARTITA+probe Ql (Unsp spec) [facility] Work Phone: Lower GI hemoglobin IA Ql (S tl) Stool Occult Blood (THANH) Positive [facility] Work Phone: No Panel Information [facility] Stool lactoferrin detection by immunoassay Lactoferrin IA Ql (Stl) [facility] Work Phone: Vital Signs Date Time Vital Sign Value Performing Clinician Faci lity 08-06-2025 14:30-0400 Body height 175.26 cm Dao Raphael MD Work Phone: [facility] 08-06-2025 14:30-0400 Body mass index (BMI) [Ratio] 34.4 kg/m2 Dao Raphael MD Work Phone: [facility] 08-06-2025 14:30-0400 Body temperature 97.9 [degF] Dao Raphael MD Work Phone: [facility] 08-06-2025 14:30-0400 Body weight 105.69 kg Dao Raphael MD Work Phone: [facility] 08-06-2025 14:30-0400 Diastolic blood pressure 85 mm[Hg] Dao Raphael MD Work Phone: [facility] 08-06-2025 14:30-0400 Heart rate 106 /min Dao Raphael MD Work Phone: [facility] 08-06-2025 14:30-0400 Respiratory rate 14 /min Dao Raphael MD Work Phone: [facility] 08-06-2025 14:30-0400 SaO2% (BldA) [Mass fraction] 100 % Dao Raphael MD Work Phone: [facility] 08-06-2025 14:30-0400 Systolic blood pressure 129 mm[Hg] Dao Raphael MD Work Phone: [facility] 07-23-2025 10:44-0400 Body height 177.[address] Tolu Franz MD Work Phone: [facility] 07-23-2025 10:44-0400 Body weight 104.[address] Tolu Franz MD Work Phone: [facility] 07-20-2025 08:54-0400 Body mass index (BMI) [Ratio] 33 kg/m2 Dr. Tolu Franz MD Work Phone: [facility] 07-05-2025 15:35-0400 Body temperature 97.5 [degF] Jose Ramon Medina MD Work Phone: [facility] 07-05-2025 15:35-0400 Diastolic blood pressure 57 mm[Hg] Jose Ramon Medina MD Work Phone: [facility] 07-05-2025 15:35-0400 Heart rate 75 /min Jose Ramon Medina MD Work Phone: [facility] 07-05-2025 15:35-0400 Respiratory rate 24 /min Jose Ramon Medina MD Work Phone: [facility] 07-05-2025 15:35-0400 SaO2% (BldA) [Mass fraction] 98 % Jose Ramon Medina MD Work Phone: [facility] 07-05-2025 15:35-0400 Systolic blood pressure 122 mm[Hg] Jose Ramon Medina MD Work Phone: [facility] 06-28-2025 10:16-0400 Body mass index (BMI) [Ratio] 33 kg/m2 Dr. Tolu Franz MD Work Phone: [facility] 06-28-2025 10:16-0400 Body weight 104.[address] Tolu Franz MD Work Phone: [facility] 06-28-2025 10:16-0400 Diastolic blood pressure 65 mm[Hg] Dr. Tolu Franz MD Work Phone: [facility] 06-28-2025 10:16-0400 Heart rate 80 /min Dr. Tolu Franz MD Work Phone: [facility] 06-28-2025 10:16-0400 Respiratory rate 18 /min Dr. Tolu Franz MD Work Phone: [facility] 06-28-2025 10:16-0400 Systolic blood pressure 120 mm[Hg] Dr. Tolu Franz MD Work Phone: 5(054)322-659157 [place] [address] 06-19-2025 19:43-0400 Body temperature 98.2 [degF] Dr. Tolu Franz MD Work Phone: 8(717)933-799258 [address] 06-19-2025 19:43-0400 Diastolic blood pressure 75 mm[Hg] Dr. Tolu Franz MD Work Phone: 9(364)947-248052 [place] [address] 06-19-2025 19:43-0400 Heart rate 81 /min Dr. Tolu Franz MD Work Phone: 4(916)467-564952 [place] [address] 06-19-2025 19:43-0400 Respiratory rate 14 /min Dr. Tolu Franz MD Work Phone: 1(264)042-393552 [place] [address] 06-19-2025 19:43-0400 SaO2% (BldA) [Mass fraction] 99 % Dr. Tolu Franz MD Work Phone: 2(765)643-731952 [place] [address] 06-19-2025 19:43-0400 Systolic blood pressure 140 mm[Hg] Dr. Tolu Franz MD Work Phone: 4(370)397-404652 [place] [address] 06-19-2025 16:02-0400 Body mass index (BMI) [Ratio] 33.5 kg/m2 Dr. Tolu Franz MD Work Phone: 4(256)770-577652 [place] [address] 06-19-2025 16:02-0400 Body weight 106.[address] Tolu Franz MD Work Phone: 8(888)996-838557 [place] [address] 06-19-2025 15:47-0400 Body height 177.[address] Tolu Franz MD Work Phone: 0(179)596-487657 [place] [address] 06-14-2025 21:34-0400 Body temperature 98 [degF] Dr. Tolu Franz MD Work Phone: 7(979)326-307052 [place] [address] 06-14-2025 21:34-0400 Diastolic blood pressure 84 mm[Hg] Dr. Tolu Franz MD Work Phone: [facility] 06-14-2025 21:34-0400 Heart rate 82 /min Dr. Tolu Franz MD Work Phone: [facility] 06-14-2025 21:34-0400 Respiratory rate 16 /min Dr. Tolu Franz MD Work Phone: [facility] 06-14-2025 21:34-0400 SaO2% (BldA) [Mass fraction] 99 % Dr. Tolu Franz MD Work Phone: [facility] 06-14-2025 21:34-0400 Systolic blood pressure 162 mm[Hg] Dr. Tolu Franz MD Work Phone: [facility] 06-14-2025 16:47-0400 Body height 176.[address] Tolu Franz MD Work Phone: [facility] 06-14-2025 16:47-0400 Body mass index (BMI) [Ratio] 33.3 kg/m2 Dr. Tolu Frnaz MD Work Phone: [facility] 06-14-2025 16:47-0400 Body weight 103.[address] Tolu Franz MD Work Phone: [facility] 06-14-2025 15:39-0400 Body mass index (BMI) [Ratio] 33.86 kg/m2 Kris Crouch MD Work Phone: [facility] 06-14-2025 15:39-0400 Body temperature 99.9 [degF] Kris Crouch MD Work Phone: [facility] 06-14-2025 15:39-0400 Body weight 104 kg Kris Crouch MD Work Phone: [facility] 06-14-2025 15:39-0400 Diastolic blood pressure 68 mm[Hg] Kris Crouch MD Work Phone: [facility] 06-14-2025 15:39-0400 Heart rate 98 /min Kris Crouch MD Work Phone: [facility] 06-14-2025 15:39-0400 Respiratory rate 24 /min Kris Crouch MD Work Phone: [facility] 06-14-2025 15:39-0400 SaO2% (BldA) [Mass fraction] 96 % Kris Crouch MD Work Phone: [facility] 06-14-2025 15:39-0400 Systolic blood pressure 138 mm[Hg] Kris Crouch MD Work Phone: [facility] 04-18-2025 11:12-0400 Body height 175.26 cm [facility] 04-18-2025 11:12-0400 Body mass index (BMI) [Ratio] 34 kg/m2 [facility] 04-18-2025 11:12-0400 Body temperature 97.9 [degF] [facility] 04-18-2025 11:12-0400 Body weight 104.44 kg [facility] 04-18-2025 11:12-0400 Diastolic blood pressure 70 mm[Hg] [facility] 04-18-2025 11:12-0400 Heart rate 57 /min [facility] 04-18-2025 11:12-0400 Respiratory rate 14 /min [facility] 04-18-2025 11:12-0400 SaO2% (BldA) [Mass fraction] 100 % [facility] 04-18-2025 11:12-0400 Systolic blood pressure 147 mm[Hg] [facility] 01-27-2025 01:02-0500 Body height 154.94 cm DAO RAPHAEL Work Phone: [facility] 01-17-2025 09:25-0500 Body mass index (BMI) [Ratio] 34.2 kg/m2 DAO RAPHAEL Work Phone: [facility] 01-17-2025 09:25-0500 Body weight 106.59 kg DAO RAPHAEL Work Phone: [facility] 01-17-2025 09:25-0500 Diastolic blood pressure 89 mm[Hg] DAO RAPHAEL Work Phone: [facility] 01-17-2025 09:25-0500 Heart rate 65 /min DAO RAPHAEL Work Phone: [facility] 01-17-2025 09:25-0500 SaO2% (BldA) [Mass fraction] 96 % DAO RAPHAEL Work Phone: [facility] 01-17-2025 09:25-0500 Systolic blood pressure 142 mm[Hg] DAO RAPHAEL Work Phone: [facility] 12-26-2024 09:47-0500 Body mass index (BMI) [Ratio] 44.7 kg/m2 DAO RAPHAEL Work Phone: [facility] 12-26-2024 09:47-0500 Body weight 107.5 kg DAO RAPHAEL Work Phone: [facility] 12-26-2024 09:47-0500 Diastolic blood pressure 54 mm[Hg] DAO RAPHAEL Work Phone: [facility] 12-26-2024 09:47-0500 Heart rate 65 /min DAO RAPHAEL Work Phone: [facility] 12-26-2024 09:47-0500 Respiratory rate 16 /min DAO RAPHAEL Work Phone: [facility] 12-26-2024 09:47-0500 Systolic blood pressure 112 mm[Hg] DAO HERNANDEZIS Work Phone: [facility] 12-22-2024 10:44-0500 Body height 175.26 cm [facility] 12-22-2024 10:44-0500 Body mass index (BMI) [Ratio] 34.6 kg/m2 [facility] 12-22-2024 10:44-0500 Body temperature 98.2 [degF] [facility] 12-22-2024 10:44-0500 Body weight 106.14 kg [facility] 12-22-2024 10:44-0500 Diastolic blood pressure 76 mm[Hg] [facility] 12-22-2024 10:44-0500 Heart rate 62 /min [facility] 12-22-2024 10:44-0500 Respiratory rate 18 /min [facility] 12-22-2024 10:44-0500 SaO2% (BldA) [Mass fraction] 100 % [facility] 12-22-2024 10:44-0500 Systolic blood pressure 136 mm[Hg] [facility] 12-21-2024 10:41-0500 Body temperature 96.6 [degF] Jose Ramon Medina MD Work Phone: [facility] 12-21-2024 10:41-0500 Diastolic blood pressure 71 mm[Hg] Jose Ramon Medina MD Work Phone: [facility] 12-21-2024 10:41-0500 Heart rate 64 /min Jose Ramon Medina MD Work Phone: [facility] 12-21-2024 10:41-0500 Respiratory rate 20 /min Jose Ramon Medina MD Work Phone: [facility] 12-21-2024 10:41-0500 SaO2% (BldA) [Mass fraction] 99 % Jose Ramon Medina MD Work Phone: [facility] 12-21-2024 10:41-0500 Systolic blood pressure 159 mm[Hg] Jose Ramon Medina MD Work Phone: [facility] 11-27-2024 12:54-0500 Body temperature 97.3 [degF] Jose Ramon Medina MD Work Phone: [facility] 11-27-2024 12:54-0500 Diastolic blood pressure 73 mm[Hg] Jose Ramon Medina MD Work Phone: [facility] 11-27-2024 12:54-0500 Heart rate 72 /min Jose Ramon Medina MD Work Phone: [facility] 11-27-2024 12:54-0500 Respiratory rate 18 /min Jose Ramon Medina MD Work Phone: [facility] 11-27-2024 12:54-0500 SaO2% (BldA) [Mass fraction] 96 % Jose Ramon Medina MD Work Phone: [facility] 11-27-2024 12:54-0500 Systolic blood pressure 176 mm[Hg] Jose Ramon Medina MD Work Phone: [facility] 11-16-2024 10:55-0500 Body temperature 96.6 [degF] Jose Ramon Medina MD Work Phone: [facility] 11-16-2024 10:55-0500 Diastolic blood pressure 67 mm[Hg] Jose Ramon Medina MD Work Phone: [facility] 11-16-2024 10:55-0500 Heart rate 67 /min Jose Ramon Medina MD Work Phone: [facility] 11-16-2024 10:55-0500 Respiratory rate 20 /min Jose Ramon Medina MD Work Phone: [facility] 11-16-2024 10:55-0500 SaO2% (BldA) [Mass fraction] 99 % Jose Ramon Mednia MD Work Phone: [facility] 11-16-2024 10:55-0500 Systolic blood pressure 154 mm[Hg] Jose Ramon Medina MD Work Phone: [facility] 08-23-2024 10:51-0400 Body height 175.26 cm [facility] 08-23-2024 10:51-0400 Body mass index (BMI) [Ratio] 34.3 kg/m2 [facility] 08-23-2024 10:51-0400 Body temperature 97.4 [degF] [facility] 08-23-2024 10:51-0400 Body weight 104.89 kg [facility] 08-23-2024 10:51-0400 Diastolic blood pressure 68 mm[Hg] [facility] 08-23-2024 10:51-0400 Heart rate 69 /min [facility] 08-23-2024 10:51-0400 Respiratory rate 14 /min [facility] 08-23-2024 10:51-0400 SaO2% (BldA) [Mass fraction] 97 % [facility] 08-23-2024 10:51-0400 Systolic blood pressure 149 mm[Hg] [facility] 05-24-2024 11:05-0400 Body height 175.26 cm [facility] 05-24-2024 11:05-0400 Body mass index (BMI) [Ratio] 34.4 kg/m2 [facility] 05-24-2024 11:05-0400 Body temperature 97.2 [degF] [facility] 05-24-2024 11:05-0400 Body weight 105.24 kg [facility] 05-24-2024 11:05-0400 Diastolic blood pressure 67 mm[Hg] [facility] 05-24-2024 11:05-0400 Heart rate 70 /min [facility] 05-24-2024 11:05-0400 Respiratory rate 12 /min [facility] 05-24-2024 11:05-0400 SaO2% (BldA) [Mass fraction] 98 % [facility] 05-24-2024 11:05-0400 Systolic blood pressure 137 mm[Hg] [facility] 01-26-2024 12:04-0500 Body height 175.26 cm [facility] 01-26-2024 12:04-0500 Body mass index (BMI) [Ratio] 34.7 kg/m2 [facility] 01-26-2024 12:04-0500 Body temperature 98.1 [degF] [facility] 01-26-2024 12:04-0500 Body weight 106.31 kg [facility] 01-26-2024 12:04-0500 Diastolic blood pressure 78 mm[Hg] [facility] 01-26-2024 12:04-0500 Heart rate 74 /min [facility] 01-26-2024 12:04-0500 Respiratory rate 16 /min [facility] 01-26-2024 12:04-0500 SaO2% (BldA) [Mass fraction] 96 % [facility] 01-26-2024 12:04-0500 Systolic blood pressure 149 mm[Hg] [facility] 2024 09:24-0500 Body height 154.94 cm [facility] 2024 09:24-0500 Body mass index (BMI) [Ratio] 45 kg/m2 [facility] 2024 09:24-0500 Body temperature 98.6 [degF] [facility] 2024 09:24-0500 Body weight 108.06 kg [facility] 2024 09:24-0500 Diastolic blood pressure 82 mm[Hg] [facility] 2024 09:24-0500 Heart rate 72 /min [facility] 2024 09:24-0500 Respiratory rate 16 /min [facility] 2024 09:24-0500 SaO2% (BldA) [Mass fraction] 97 % [facility] 2024 09:24-0500 Systolic blood pressure 150 mm[Hg] [facility] 10-27-2023 07:40-0500 Diastolic blood pressure 78 mm[Hg] Gracia Washington MD Work Phone: [facility] 10-27-2023 07:40-0500 Heart rate 74 /min Gracia Washington MD Work Phone: [facility] 10-27-2023 07:40-0500 Systolic blood pressure 188 mm[Hg] Gracia Washington MD Work Phone: [facility] 10-25-2023 11:40-0500 Body height 175.26 cm [facility] 10-25-2023 11:40-0500 Body mass index (BMI) [Ratio] 34.8 kg/m2 [facility] 10-25-2023 11:40-0500 Body temperature 98.1 [degF] [facility] 10-25-2023 11:40-0500 Body weight 106.6 kg [facility] 10-25-2023 11:40-0500 Diastolic blood pressure 73 mm[Hg] [facility] 10-25-2023 11:40-0500 Heart rate 76 /min [facility] 10-25-2023 11:40-0500 Respiratory rate 16 /min [facility] 10-25-2023 11:40-0500 SaO2% (BldA) [Mass fraction] 96 % [facility] 10-25-2023 11:40-0500 Systolic blood pressure 147 mm[Hg] [facility] 10-19-2023 10:05-0500 Body height 177.8 cm [facility] 10-19-2023 10:01-0500 Body mass index (BMI) [Ratio] 33.7 kg/m2 [facility] 10-19-2023 10:01-0500 Body weight 106.59 kg [facility] 10-19-2023 10:01-0500 Diastolic blood pressure 75 mm[Hg] [facility] 10-19-2023 10:01-0500 Heart rate 63 /min [facility] 10-19-2023 10:01-0500 Respiratory rate 18 /min [facility] 10-19-2023 10:01-0500 Systolic blood pressure 147 mm[Hg] [facility] 09-24-2023 11:30-0400 Body height 175.26 cm [facility] 09-24-2023 11:30-0400 Body mass index (BMI) [Ratio] 33.5 kg/m2 [facility] 09-24-2023 11:30-0400 Body temperature 98.6 [degF] [facility] 09-24-2023 11:30-0400 Body weight 102.51 kg [facility] 09-24-2023 11:30-0400 Diastolic blood pressure 84 mm[Hg] [facility] 09-24-2023 11:30-0400 Heart rate 61 /min [facility] 09-24-2023 11:30-0400 Respiratory rate 16 /min [facility] 09-24-2023 11:30-0400 SaO2% (BldA) [Mass fraction] 98 % [facility] 09-24-2023 11:30-0400 Systolic blood pressure 153 mm[Hg] [facility] 08-03-2023 13:23-0400 Body height 175.26 cm [facility] 08-03-2023 13:23-0400 Body mass index (BMI) [Ratio] 32.9 kg/m2 [facility] 08-03-2023 13:23-0400 Body temperature 98.6 [degF] [facility] 08-03-2023 13:23-0400 Body weight 100.7 kg [facility] 08-03-2023 13:23-0400 Diastolic blood pressure 70 mm[Hg] [facility] 08-03-2023 13:23-0400 Heart rate 70 /min [facility] 08-03-2023 13:23-0400 Respiratory rate 16 /min [facility] 08-03-2023 13:23-0400 SaO2% (BldA) [Mass fraction] 97 % [facility] 08-03-2023 13:23-0400 Systolic blood pressure 147 mm[Hg] [facility] 07-19-2023 14:07-0400 Body height 175.26 cm [facility] 07-19-2023 14:07-0400 Body mass index (BMI) [Ratio] 32.8 kg/m2 [facility] 07-19-2023 14:07-0400 Body temperature 98.1 [degF] [facility] 07-19-2023 14:07-0400 Body weight 100.25 kg [facility] 07-19-2023 14:07-0400 Diastolic blood pressure 74 mm[Hg] [facility] 07-19-2023 14:07-0400 Heart rate 63 /min [facility] 07-19-2023 14:07-0400 Respiratory rate 20 /min [facility] 07-19-2023 14:07-0400 SaO2% (BldA) [Mass fraction] 98 % [facility] 07-19-2023 14:07-0400 Systolic blood pressure 178 mm[Hg] [facility] 06-25-2023 11:59-0400 Body height 177.8 cm [facility] 06-25-2023 11:59-0400 Body mass index (BMI) [Ratio] 30.9 kg/m2 [facility] 06-25-2023 11:59-0400 Body temperature 98.8 [degF] [facility] 06-25-2023 11:59-0400 Body weight 97.52 kg [facility] 06-25-2023 11:59-0400 Diastolic blood pressure 75 mm[Hg] [facility] 06-25-2023 11:59-0400 Heart rate 69 /min [facility] 06-25-2023 11:59-0400 Respiratory rate 18 /min [facility] 06-25-2023 11:59-0400 SaO2% (BldA) [Mass fraction] 96 % [facility] 06-25-2023 11:59-0400 Systolic blood pressure 183 mm[Hg] [facility] 06-09-2023 09:41-0400 Body height 177.8 cm [facility] 06-09-2023 09:41-0400 Body mass index (BMI) [Ratio] 31.8 kg/m2 [facility] 06-09-2023 09:41-0400 Body temperature 98.3 [degF] [facility] 06-09-2023 09:41-0400 Body weight 100.47 kg [facility] 06-09-2023 09:41-0400 Diastolic blood pressure 80 mm[Hg] [facility] 06-09-2023 09:41-0400 Heart rate 62 /min [facility] 06-09-2023 09:41-0400 Respiratory rate 16 /min [facility] 06-09-2023 09:41-0400 SaO2% (BldA) [Mass fraction] 98 % [facility] 06-09-2023 09:41-0400 Systolic blood pressure 170 mm[Hg] [facility] 06-05-2023 11:46-0400 Body temperature 97.9 [degF] Sherlyn Athy PA-C Work Phone: [facility] 06-05-2023 11:46-0400 Body weight 98.88 kg Sherlyn Athy PA-C Work Phone: [facility] 06-05-2023 11:46-0400 Diastolic blood pressure 74 mm[Hg] Sherlyn Athy PA-C Work Phone: [facility] 06-05-2023 11:46-0400 Heart rate 72 /min Sherlyn Athy PA-C Work Phone: [facility] 06-05-2023 11:46-0400 Respiratory rate 18 /min Sherlyn Athy PA-C Work Phone: [facility] 06-05-2023 11:46-0400 SaO2% (BldA) [Mass fraction] 97 % Sherlyn Athy PA-C Work Phone: [facility] 06-05-2023 11:46-0400 Systolic blood pressure 142 mm[Hg] Sherlyn Athy PA-C Work Phone: [facility] 03-21-2023 09:46-0400 Body height 177.8 cm Out [facility] 03-21-2023 09:46-0400 Body mass index (BMI) [Ratio] 30.1 kg/m2 Out [facility] 03-21-2023 09:46-0400 Body temperature 97.5 [degF] Out [facility] 03-21-2023 09:46-0400 Body weight 95.25 kg Out [facility] 03-21-2023 09:46-0400 Diastolic blood pressure 69 mm[Hg] Out [facility] 03-21-2023 09:46-0400 Heart rate 82 /min Out [facility] 03-21-2023 09:46-0400 Respiratory rate 14 /min Out [facility] 03-21-2023 09:46-0400 SaO2% (BldA) [Mass fraction] 99 % [facility] 03-21-2023 09:46-0400 Systolic blood pressure 156 mm[Hg] Out [facility] 02-09-2023 13:48-0400 Body height 177.8 cm Out [facility] 02-09-2023 13:48-0400 Diastolic blood pressure 78 mm[Hg] Out [facility] 02-09-2023 13:48-0400 Systolic blood pressure 128 mm[Hg] Out [facility] 02-09-2023 13:48-0400 Body mass index (BMI) [Ratio] 32.3 kg/m2 Out [facility] 02-09-2023 13:48-0400 Body weight 102.05 kg Out [facility] 02-09-2023 13:48-0400 Heart rate 65 /min Out [facility] 02-09-2023 13:48-0400 Respiratory rate 20 /min Out [facility] 02-09-2023 13:48-0400 SaO2% (BldA) [Mass fraction] 98 % Out [facility] 01-01-2023 11:57-0500 Diastolic blood pressure 68 mm[Hg] Out [facility] 01-01-2023 11:57-0500 Heart rate 73 /min Out [facility] 01-01-2023 11:57-0500 Respiratory rate 16 /min Out [facility] 01-01-2023 11:57-0500 SaO2% (BldA) [Mass fraction] 98 % Out [facility] 01-01-2023 11:57-0500 Systolic blood pressure 169 mm[Hg] Out [facility] 01-01-2023 11:16-0500 Body height 177.8 cm Out [facility] 01-01-2023 11:16-0500 Body mass index (BMI) [Ratio] 30.9 kg/m2 Out [facility] 01-01-2023 11:16-0500 Body temperature 97.1 [degF] Out [facility] 01-01-2023 11:16-0500 Body weight 97.97 kg Out [facility] 12-14-2022 09:23-0500 Body height 177.8 cm Out [facility] 12-14-2022 09:23-0500 Body mass index (BMI) [Ratio] 32.4 kg/m2 Out [facility] 12-14-2022 09:23-0500 Body temperature 96.8 [degF] Out [facility] 12-14-2022 09:23-0500 Body weight 102.62 kg Out [facility] 12-14-2022 09:23-0500 Diastolic blood pressure 79 mm[Hg] Out [facility] 12-14-2022 09:23-0500 Heart rate 75 /min Out [facility] 12-14-2022 09:23-0500 Respiratory rate 20 /min Out [facility] 12-14-2022 09:23-0500 SaO2% (BldA) [Mass fraction] 94 % Out [facility] 12-14-2022 09:23-0500 Systolic blood pressure 134 mm[Hg] Out [facility] 08-20-2022 13:00-0400 Body height 177.8 cm Out [facility] Work Phone: 08-20-2022 13:00-0400 Body mass index (BMI) [Ratio] 33.5 kg/m2 Out [facility] Work Phone: 08-20-2022 13:00-0400 Body weight 106.14 kg Out [facility] Work Phone: 08-20-2022 13:00-0400 Diastolic blood pressure 67 mm[Hg] Out [facility] Work Phone: 08-20-2022 13:00-0400 Heart rate 67 /min Out [facility] Work Phone: 08-20-2022 13:00-0400 Respiratory rate 20 /min Out [facility] Work Phone: 08-20-2022 13:00-0400 Systolic blood pressure 128 mm[Hg] Out [facility] Work Phone: 06-08-2022 13:26-0400 Body height 177.8 cm No Primary Care Physician [facility] Work Phone: 06-08-2022 13:26-0400 Body mass index (BMI) [Ratio] 33.5 kg/m2 No Primary Care Physician [facility] Work Phone: 06-08-2022 13:26-0400 Body temperature 96.8 [degF] No Primary Care Physician [facility] Work Phone: 06-08-2022 13:26-0400 Body weight 105.8 kg No Primary Care Physician [facility] Work Phone: 06-08-2022 13:26-0400 Diastolic blood pressure 86 mm[Hg] No Primary Care Physician [facility] Work Phone: 06-08-2022 13:26-0400 Heart rate 70 /min No Primary Care Physician [facility] Work Phone: 06-08-2022 13:26-0400 Respiratory rate 18 /min No Primary Care Physician [facility] Work Phone: 06-08-2022 13:26-0400 SaO2% (BldA) [Mass fraction] 98 % No Primary Care Physician [facility] Work Phone: 06-08-2022 13:26-0400 Systolic blood pressure 142 mm[Hg] No Primary Care Physician [facility] Work Phone: 05-19-2022 13:35-0400 Body height 177.[address] Tolu Franz Work Phone: [facility] Work Phone: 05-19-2022 13:35-0400 Body weight 105.[address] Tolu Franz Work Phone: [facility] Work Phone: 03-29-2022 00:24-0400 Body mass index (BMI) [Ratio] 34.8 kg/m2 Dr. Tolu Franz Work Phone: [facility] Work Phone: 02-27-2022 00:24-0400 Body mass index (BMI) [Ratio] 34.8 kg/m2 Dr. Tolu Franz Work Phone: [facility] Work Phone: 02-27-2022 00:24-0400 Body weight 113.[address] Tolu Franz Work Phone: [facility] Work Phone: 02-25-2022 13:40-0400 Body mass index (BMI) [Ratio] 35.3 kg/m2 Dr. Tolu Franz Work Phone: [facility] Work Phone: 02-25-2022 13:40-0400 Body temperature 97 [degF] Dr. Tolu Franz Work Phone: [facility] Work Phone: 02-25-2022 13:40-0400 Body weight 111.[address] Tolu Franz Work Phone: [facility] Work Phone: 02-25-2022 13:40-0400 Diastolic blood pressure 84 mm[Hg] Dr. Tolu Franz Work Phone: [facility] Work Phone: 02-25-2022 13:40-0400 Heart rate 83 /min Dr. Tolu Franz Work Phone: [facility] Work Phone: 02-25-2022 13:40-0400 Respiratory rate 20 /min Dr. Tolu Franz Work Phone: [facility] Work Phone: 02-25-2022 13:40-0400 SaO2% (BldA) [Mass fraction] 96 % Dr. Tolu Franz Work Phone: [facility] Work Phone: 02-25-2022 13:40-0400 Systolic blood pressure 162 mm[Hg] Dr. Tolu Franz Work Phone: [facility] Work Phone: 02-25-2022 13:40-0400 Body height 177.[address] Tolu Franz Work Phone: [facility] Work Phone: 02-25-2022 13:40-0400 Body mass index (BMI) [Ratio] 35.3 kg/m2 Dr. Tolu Franz Work Phone: [facility] Work Phone: 02-25-2022 13:40-0400 Body temperature 97 [degF] Dr. Tolu Franz Work Phone: [facility] Work Phone: 02-25-2022 13:40-0400 Body weight 111.[address] Tolu Franz Work Phone: [facility] Work Phone: 02-25-2022 13:40-0400 Diastolic blood pressure 84 mm[Hg] Dr. Tolu Franz Work Phone: [facility] Work Phone: 02-25-2022 13:40-0400 Heart rate 83 /min Dr. Tolu Franz Work Phone: [facility] Work Phone: 02-25-2022 13:40-0400 Respiratory rate 20 /min Dr. Tolu Franz Work Phone: [facility] Work Phone: 02-25-2022 13:40-0400 SaO2% (BldA) [Mass fraction] 96 % Dr. Tolu Franz Work Phone: [facility] Work Phone: 02-25-2022 13:40-0400 Systolic blood pressure 162 mm[Hg] Dr. Tolu Franz Work Phone: [facility] Work Phone: 02-16-2022 13:44-0400 Body weight 110.[address] Tolu Franz Work Phone: [facility] Work Phone: 02-16-2022 13:44-0400 Diastolic blood pressure 62 mm[Hg] Dr. Tolu Franz Work Phone: [facility] Work Phone: 02-16-2022 13:44-0400 Heart rate 68 /min Dr. Tolu Franz Work Phone: [facility] Work Phone: 02-16-2022 13:44-0400 Respiratory rate 18 /min Dr. Tolu Franz Work Phone: [facility] Work Phone: 02-16-2022 13:44-0400 Systolic blood pressure 150 mm[Hg] Dr. Tolu Franz Work Phone: [facility] Work Phone: 02-16-2022 13:44-0400 Body weight 110.[address] Tolu Franz Work Phone: [facility] Work Phone: 02-16-2022 13:44-0400 Diastolic blood pressure 62 mm[Hg] Dr. Tolu Franz Work Phone: [facility] Work Phone: 02-16-2022 13:44-0400 Heart rate 68 /min Dr. Tolu Franz Work Phone: [facility] Work Phone: 02-16-2022 13:44-0400 Respiratory rate 18 /min Dr. Tolu Franz Work Phone: [facility] Work Phone: 02-16-2022 13:44-0400 Systolic blood pressure 150 mm[Hg] Dr. Tolu Franz Work Phone: [facility] Work Phone: 01-29-2022 18:21-0500 Body weight 113.[address] Tolu Franz Work Phone: [facility] Work Phone: 01-29-2022 17:21-0500 Body weight 113.[address] Tolu Franz Work Phone: [facility] Work Phone: 01-27-2022 00:23-0500 Body mass index (BMI) [Ratio] 34.8 kg/m2 Dr. Tolu Franz Work Phone: [facility] Work Phone: 01-26-2022 23:23-0500 Body mass index (BMI) [Ratio] 34.8 kg/m2 Dr. Tolu Franz Work Phone: [facility] Work Phone: 12-31-2021 12:40-0500 Body weight 111.[address] Tolu Franz Work Phone: [facility] Work Phone: 12-29-2021 23:21-0500 Body mass index (BMI) [Ratio] 34.8 kg/m2 Dr. Tolu Franz Work Phone: [facility] Work Phone: 12-11-2021 16:13-0500 Body weight 111.[address] Tolu Franz Work Phone: [facility] Work Phone: 11-28-2021 23:17-0500 Body mass index (BMI) [Ratio] 34.8 kg/m2 Dr. Tolu Franz Work Phone: [facility] Work Phone: 11-18-2021 11:54-0500 Body weight 112.[address] Tolu Franz Work Phone: [facility] Work Phone: 11-13-2021 11:46-0500 Body weight 111.[address] Tolu Franz Work Phone: [facility] Work Phone: 10-28-2021 23:17-0500 Body mass index (BMI) [Ratio] 34.8 kg/m2 Dr. Tolu Franz Work Phone: [facility] Work Phone: 04-11-2021 15:30-0400 Body mass index (BMI) [Ratio] 34.8 kg/m2 Dr. Tolu Franz Work Phone: [facility] Work Phone: 04-11-2021 15:30-0400 Body mass index (BMI) [Ratio] 34.8 kg/m2 Dr. Tolu Franz Work Phone: [facility] Work Phone: Encounters Encounter Date Encounter [...] Start: 08-02-2025 End: 08-02-2025 ambulatory JOSÉ JAMAZI Facility:[facility] Start: 08-02-2025 End: 08-02-[address] Parminder Parks MD -[facility] Work Phone: Start: 08-02-2025 End: 08-02-[address] Tolu Franz MD Work Phone: -[facility] Start: 07-31-[address] Tolu Franz MD -Cardiac Rehab Work Phone: Start: 07-31-2025 ambulatory Tolu Franz Facility :[facility] Start: 07-23-2025 ambulatory Charmaine Yuan NP Facili ty:[facility] Start: 07-23-2025 Non-patient / Non-visit Dr. Gautam Barnes DO -[facility] Start: 07-23-2025 End: 07-23-2025 Admission to same day surgery center Dr. Parminder Parks MD -[facility]/Special Procedures Work Phone: Start: 07-23-2025 End: 07-23-[address] 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 Tolu Franz MD Work Phone: -Laboratory Start: 07-05-2025 End: 07-05-2025 Patient encounter procedure Vernon Prado DO -Laboratory Work Phone: Start: 07-05-2025 End: 07-05-2025 ambulatory Vernon Prado Facility:[facility] Start: 07-03-2025 End: 07-29-[address] Tolu Franz MD -Cardiac Rehab Work Phone: Start: 07-03-[address] Tolu Franz MD -Cardiac Rehab Work Phone: Start: 07-03-2025 End: 07-29-[address] Tolu Franz MD Work Phone: -Cardiac Rehab Start: 06-28-2025 End: 06-28-2025 Patient encounter procedure Charmaine BURGER -[facility] Work Phone: Start: 06-28-2025 End: 06-28-[address] Tolu Franz MD Work Phone: -[facility] Start: 06-28-2025 End: 06-28-[address] Tolu Franz MD -Cardiac Rehab Work Phone: Start: 06-28-[address] Tolu Franz MD -Cardiac Rehab Work Phone: Start: 06-26-2025 End: 06-26-[address] Tolu Franz MD Work Phone: -Laboratory Start: 06-26-2025 End: 06-26-2025 Patient encounter procedure Vernon Johan DO -Laboratory Work Phone: Start: 06-26-2025 End: 06-26-2025 Patient encounter procedure Vernon Prado DO -[facility] Work Phone: Start: 06-26-2025 End: 06-26-[address] Tolu Franz MD Work Phone: -[facility] Start: 06-26-2025 End: 06-26-2025 ambulatory Vernon Friend Facility:[facility] Start: 06-21-2025 End: 08-14-2025 Admission to same day surgery center Gracia Washington MD Work Phone: Dermatology Comment on above: [facility] Start: 06-21-2025 End: 08-14-2025 [...] 06-14-2025 Subsequent hospital visit by physician Xr [facility] Work Phone: Radiology Comment on above: Fever, unspecified f ever cause [R50.9] Start: 06-14-2025 End: 06-14-2025 Office outpatient new 60 minutes Kris Crouch MD Work Phone: [facility] Comment on above: Fever, unspecified f ever cause (Primary Dx); URI, acute; Dyspnea, unspecified type; Chest pain, unspecified type Start: 06-14-2025 End: 06-14-2025 ambulatory DAO RAPHAEL JR Facility:[facility] Start: 06-14-[address] Tolu Franz MD -Cardiac Rehab Work Phone: Start: 05-24-2025 End: 05-28-[address] Tolu Franz MD Work Phone: -Cardiac Rehab Start: 05-24-2025 End: 05-28-[address] Tolu Franz MD -Cardiac Rehab Work Phone: Start: 05-11-2025 End: 07-11-2025 Follow-up encounter José Sheikh APRN.CNP Work Phone: Dermatology Start: 05-10-2025 End: 05-10-2025 Patient encounter procedure José Sheikh ALBERENE [employer] Work Phone: Dermatology Comment on above: Neoplasm of unspecif ied behavior of bone, soft tissue, and skin (Primary Dx); AK (actinic keratosis); Multiple benign nevi; Seborrheic keratosis; Lentigines; Deleon angioma; Personal history of malignant melanoma of skin; History of nonmelanoma skin cancer; Skin cancer screening Start: 05-10-2025 End: 05-10-2025 ambulatory JOSÉ SHEIKH Facility:[facility] Start: 04-26-2025 End: 04-28-[address] Parminder Parks MD Work Phone: [facility] Work Phone: Start: 04-26-2025 End: 04-28-[address] Tolu Franz MD -Cardiac Rehab Work Phone: Start: 04-18-2025 End: 04-18-2025 ambulatory [facility] Work Phone: Start: 04-18-2025 End: 04-18-2025 Patient encounter procedure Dao Raphael MD [facility] [employer] Raphael Jr., MD Work Phone: Start: 04-12-2025 End: 04-12-2025 Patient encounter procedure Nurse Ozzie [facility] Work Phone: Dermatology Comment on above: AK (actinic keratosi s) (Primary Dx) Start: 04-12-2025 End: 04-12-2025 ambulatory DAO RAPHAEL JR Facility:[facility] Start: 03-27-2025 End: 03-28-2025 ambulatory Out of Town Doctor Facility:[facility] Start: 03-27-2025 End: 03-28-[address] Tolu Franz MD -Cardiac Rehab Work Phone: Start: 03-06-2025 End: 03-06-2025 Patient encounter procedure Hortencia Gerard PA-C Work Phone: Urology Comment on above: BPH associated with nocturia (Primary Dx); Urinary frequency Start: 03-06-2025 End: 03-06-2025 ambulatory HORTENCIA MOUSTAPHA Facility:[facility] Start: 03-02-2025 End: 05-02-2025 Follow-up encounter Marly Murrieta APRN.[employer] Work Phone: Dermatology [place] Start: 03-01-2025 End: 03-01-2025 [facility] Start: 03-01-2025 End: 03-01-2025 Patient encounter procedure José Sheikh [employer] Work Phone: Dermatology Comment on above: Neoplasm of unspecif ied behavior of bone, soft tissue, and skin (Primary Dx) Start: 02-23-2025 End: 02-23-2025 Orders Only Hortencia Moustapha PA-C Work Phone: Urology Comment on above: BPH with urinary obs truction (Primary Dx) kaushik on left fore ar m Start: 02-22-2025 End: 02-26-2025 ambulatory DAO RAPHAEL Work Phone: [facility] Work Phone: Start: 02-22-2025 End: 02-26-[address] Tolu Franz MD -Cardiac Rehab Work Phone: Start: 02-01-2025 End: 02-01-2025 ambulatory JOSÉ SHEIKH Facility:[facility] Start: 02-01-2025 End: 02-01-2025 Patient encounter procedure José Sheikh [employer] Work Phone: Dermatology Comment on above: AK (actinic keratosi s) (Primary Dx); Multiple benign nevi; Seborrheic keratosis; Lentigines; Deleon angioma; History of nonmelanoma skin cancer; Personal history of malignant melanoma of skin; Skin cancer screening Start: 01-25-2025 End: 01-26-2025 ambulatory Tolu Franz Facility:[facility] Start: 01-25-2025 End: 01-26-[address] Tolu Franz MD -Cardiac Rehab Work Phone: Start: 01-17-2025 End: 01-17-2025 Patient encounter procedure Holli Arnulfo 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-C -[facility] Work Phone: Start: 01-17-2025 End: 01-17-2025 ambulatory Holli Arnulfo Facility:[facility] Start: 01-15-2025 End: 01-15-2025 Patient encounter procedure Vernon Prado DO -[facility] Work Phone: Start: 01-15-2025 End: 01-15-2025 ambulatory Vernon Prado Facility:[facility] Start: 01-02-2025 ambulatory Parminder Parks Facility:[facility] Start: 01-02-2025 Non-patient / Non-visit Dr. Parminder Parks MD -[facility] Start: 01-02-2025 End: 01-02-[address] Parminder Parks MD -Cardiovascular Services Work Phone: Start: 01-02-2025 End: 01-02-2025 ambulatory Parminder Parks Facility:[facility] Start: 12-28-2024 End: 12-29-2024 ambulatory Tolu Franz Facility:[facility] Start: 12-28-2024 End: 12-29-[address] Tolu Franz MD -Cardiac Rehab Work Phone: Start: 12-26-2024 End: 12-26-[address] 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) Start: 11-09-2024 End: 11-13-2024 Telephone encounter Corrie Stone PA-C Work Phone: Dermatology Comment on above: Results; Melanoma Start: 11-02-2024 End: 11-02-2024 ambulatory CORRIE STONE Facility:[facility] Start: 11-02-2024 End: 11-02-2024 Patient encounter procedure Corrie Stone PA-C Work Phone: Dermatology Comment on above: Skin exam, screening for cancer (Primary Dx); Multiple benign nevi; Lentigines; Deleon angioma; Seborrheic keratosis; History of nonmelanoma skin cancer; Actinic keratosis; Neoplasm of unspecified behavior of bone, soft tissue, and skin Start: 10-24-2024 End: 10-28-2024 ambulatory [facility] Facility:[facility] Start: 10-19-2024 End: 10-19-2024 ambulatory José Sheikh APRN.CNP Work Phone: Dermatology Comment on above: Reschedule apointmen t Start: 10-17-2024 End: 10-17-2024 Refill José Sheikh APRN.CNP Work Phone: Dermatology Comment on above: Refill Request Start: 10-17-2024 End: 10-17-2024 Telephone encounter José Sheikh APRN.CNP Work Phone: Dermatology Comment on above: Appointment Cancelle d (10/17/24 - Provider OUT ) Start: 10-10-2024 End: 10-10-2024 ambulatory HORTENCIA GERARD Facility:[facility] Start: 10-10-2024 End: 10-10-2024 Patient encounter procedure Hortencia Gerard PA-C Work Phone: Urology Comment on above: BPH associated with nocturia (Primary Dx); Urinary frequency; Urgency of urination; Slowing of urinary stream; Impotence Start: 09-26-2024 End: 09-28-2024 ambulatory [facility] Facility:[facility] Start: 08-24-2024 End: 08-28-2024 ambulatory [facility] Facility:[facility] Start: 08-23-2024 End: 08-23-2024 ambulatory [facility] Work Phone: Start: 08-23-2024 End: 08-23-2024 Patient encounter procedure [facility] [employer] Rap[facility] Jr., MD Work Phone: Start: 07-26-2024 End: 07-26-2024 Refill Marly Murrieta APRN.[employer] Work Phone: Dermatology Comment on above: Refill Request Start: 07-25-2024 End: 07-25-2024 Telephone encounter Hortencia Gerard PA-C Work Phone: Urology Start: 07-20-2024 End: 07-20-2024 Subsequent hospital visit by physician [facility] Work Phone: Radiology Comment on above: Scrotal skin lesion [N50.9] Start: 07-17-2024 End: 07-17-2024 Orders Only Hortencia Gerard PA-C Work Phone: Urology Comment on above: Scrotal skin lesion (Primary Dx) Start: 07-14-2024 End: 07-14-2024 Patient encounter procedure José Sheikh APRN.[employer] Work Phone: Dermatology Comment on above: AK (actinic keratosi s) (Primary Dx) Start: 05-24-2024 End: 05-24-2024 ambulatory [facility] Work Phone: Start: 05-24-2024 End: 05-24-2024 Patient encounter procedure [employer] Raphael Jr., MD Work Phone: Start: 05-10-2024 End: 05-10-2024 Patient encounter procedure Nurse Ozzie [facility] Work Phone: Dermatology Comment on above: AK (actinic keratosi s) (Primary Dx) Start: 04-07-2024 End: 04-07-2024 Patient encounter procedure José Sheikh APRN.[employer] Work Phone: Dermatology Comment on above: AK (actinic keratosi s) (Primary Dx); 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) Start: 03-28-2024 End: 03-28-2024 ambulatory [facility] Work Phone: Start: 03-28-2024 End: 03-28-2024 Discharged Recurring [facility]-Cardiac Rehab Work Phone: Start: 02-24-2024 End: 02-27-2024 ambulatory [facility] Work Phone: Start: 02-24-2024 End: 02-27-2024 Discharged Recurring [facility] Work Phone: Start: 02-11-2024 End: 02-11-2024 Patient encounter procedure José Sheikh APRN.[employer] Work Phone: Dermatology Comment on above: Nummular dermatitis (Primary Dx); Inflamed seborrheic keratosis; AK (actinic keratosis) Start: 01-27-2024 End: 01-27-2024 ambulatory [facility] Work Phone: Start: 01-27-2024 End: 01-27-2024 Discharged Recurring [facility]-Cardiac Re[facility] Work Phone: Start: 01-26-2024 End: 01-26-2024 ambulatory Dao Raphael Jr Facility:[facility] Start: 01-26-2024 End: 01-26-2024 ambulatory MD Dao Raphael Jr Work Phone: [facility] Work Phone: Start: 01-26-2024 End: 01-26-2024 Patient encounter procedure MD Dao Raphael Jr Work Phone: [facility]-Lab - Dr. Raphael Start: 01-26-2024 End: 01-26-2024 ambulatory [facility] Work Phone: Start: 01-26-2024 End: 01-26-2024 Patient encounter procedure [facility] [employer] Rap[facility] Jr., MD Work Phone: Start: 01-26-2024 End: 01-26-2024 Physical examination [facility] Start: 2024 End: 2024 Patient encounter procedure DAO RAPHAEL [facility] Work Phone: Start: 01-17-2024 End: 01-17-2024 Patient encounter procedure DAO RAPHAEL [facility] Work Phone: Start: 12-28-2023 End: 12-29-2023 ambulatory [facility] Work Phone: Start: 12-28-2023 End: 12-29-2023 [facility] Start: 11-25-2023 End: 11-25-2023 Subsequent hospital visit by physician [facility] Work Phone: Radiology Comment on above: Acute cough [R05.1] Start: 11-11-2023 End: 11-28-2023 ambulatory [facility] Work Phone: Start: 11-11-2023 End: 11-28-2023 Discharged [facility]ring [facility] Work Phone: Start: 10-28-2023 End: 10-28-2023 ambulatory [facility] Work Phone: Start: 10-28-2023 End: 10-28-2023 Discharged Recurring [facility] Work Phone: Start: 10-27-2023 End: 10-27-2023 Patient encounter procedure Gracia Washington MD Work Phone: Dermatology Comment on above: Hypertension, unspec ified type (Primary Dx) Start: 10-25-2023 End: 10-25-2023 ambulatory [facility] Work Phone: Start: 10-25-2023 End: 10-25-2023 Patient encounter procedure [employer]-Dao Raphael Jr., MD Work Phone: Start: 10-19-2023 End: 10-19-2023 Patient encounter procedure DAO RAPHAEL [facility] Work Phone: Start: 10-15-2023 Telephone encounter Gracia Washington MD Work Phone: Dermatology Start: 10-09-2023 ambulatory Gracia diego MD Work Phone: Dermatology Comment on above: Request change of tr eatment Start: 10-06-2023 End: 10-06-2023 Patient encounter procedure Gracia Washington MD Work Phone: Dermatology Comment on above: 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 Start: 09-28-2023 End: 09-28-2023 ambulatory [facility] Work Phone: Start: 09-28-2023 End: 09-28-2023 Discharged Recurring [facility] Work Phone: Start: 09-24-2023 End: 09-24-2023 ambulatory [facility] Work Phone: Start: 09-24-2023 End: 09-24-2023 Patient encounter procedure [facility] Rap[facility] Jr., MD Work Phone: Start: 09-21-2023 End: 09-12-2024 Telephone encounter José Sheikh APRN.CNP Work Phone: Dermatology Start: 08-26-2023 End: 08-28-2023 ambulatory [facility] Work Phone: Start: 08-26-2023 End: 08-28-2023 Discharged Recurring [facility] Work Phone: Start: 08-03-2023 End: 08-03-2023 Patient encounter procedure [facility] Raphael Jr., MD Work Phone: Start: 07-29-2023 End: 07-29-2023 ambulatory [facility] Work Phone: Start: 07-29-2023 End: 07-29-2023 Discharged Recurring [facility] Work Phone: Start: 07-23-2023 End: 07-23-2023 Patient encounter procedure DAO RAPHAEL [facility] Work Phone: Start: 07-19-2023 End: 07-19-2023 Patient encounter procedure [facility] [employer] Raphael Jr., MD Work Phone: Start: 07-01-2023 Telephone encounter José delgado ALBERENE [employer] Work Phone: Dermatology Comment on above: Patient Question Start: 06-29-2023 End: 06-29-2023 Patient encounter procedure José Sheikh ALBERENE [employer] Work Phone: Dermatology Comment on above: Rash and nonspecific skin eruption (Primary Dx) Start: 06-25-2023 End: 06-25-2023 ambulatory Dao Raphael Jr Facility:[facility] Start: 06-25-2023 End: 06-25-2023 ambulatory MD Dao Raphael Jr Work Phone: [facility] Work Phone: Start: 06-25-2023 End: 06-25-2023 Patient encounter procedure MD Dao Raphael Jr Work Phone: [facility]-Lab - Dr. Raphael Start: 06-25-2023 End: 06-25-2023 ambulatory [facility] Work Phone: Start: 06-25-2023 End: 06-25-2023 Patient encounter procedure [facility] [employer] Raphael Jr., MD Work Phone: Start: 06-24-2023 End: 06-28-2023 Discharged Recurring DAO RAPHAEL [facility] Work Phone: Start: 06-09-2023 End: 06-09-2023 Patient encounter procedure DAO RAPHAEL [facility] Work Phone: Start: 06-07-2023 Telephone encounter Tawny fierro [employer]BERENE [employer] Work Phone: [facility] Comment on above: Results Start: 06-05-2023 End: 06-05-2023 Patient encounter procedure Sherlyn Monte PA-C Work Phone: [facility] Comment on above: Rash (Primary Dx) Start: 05-27-2023 End: 05-28-2023 ambulatory [place] Town [facility] Work Phone: Start: 05-27-2023 End: 05-28-2023 Discharged Recurring Out [facility]Card[facility] Re[facility] Work Phone: Start: 04-27-2023 End: 04-28-2023 ambulatory [place] [facility] Work Phone: Start: 04-27-2023 End: 04-28-2023 Discharged Recurring Out [facility] Start: 04-12-2023 Telephone encounter [...] Start: 03-25-2023 End: 03-28-2023 Discharged Recurring Out [facility] Start: 03-23-2023 End: 03-23-2023 Patient encounter procedure Out [facility] Gastroenterology Start: 03-21-2023 End: 03-21-2023 Emergency department patient visit Out [facility]-Emergency Department Start: 03-18-2023 Registered Recurring Out [facility] Start: 02-25-2023 End: 02-26-2023 ambulatory [place] [facility] [employer] Work Phone: Start: 02-25-2023 End: 02-26-2023 Discharged Recurring [place] [facility] Start: 02-18-2023 End: 02-18-2023 Patient encounter procedure José Sheikh APRN.[employer] Work Phone: Dermatology Comment on above: AK (actinic keratosi s) (Primary Dx); History of actinic keratosis Start: 02-09-2023 End: 02-09-2023 Patient encounter procedure [place] [facility] Start: 01-26-2023 End: 01-26-2023 Discharged Recurring [place] [facility] Start: 01-14-2023 Telephone encounter José delgado APRN.[employer] Work Phone: Dermatology Comment on above: Results Start: 01-12-2023 End: 01-12-2023 Patient encounter procedure José Sheikh APRN.[employer] Work Phone: Dermatology Comment on above: Neoplasm of unspecif ied behavior of bone, soft tissue, and skin (Primary Dx); Actinic keratosis; Seborrheic keratosis; Deleon angioma; Lentigines Start: 01-12-2023 Registered Recurring [place] [facility] Start: 01-01-2023 End: 01-01-2023 ambulatory [place] [facility] [employer] Work Phone: Start: 01-01-2023 End: 01-01-2023 Patient encounter procedure [place] [facility] Start: 12-29-2022 End: 12-29-2022 ambulatory [place] Town [facility] [employer] Work Phone: Start: 12-29-2022 End: 12-29-2022 Discharged Recurring [place] [facility] Start: 12-17-2022 Registered Recurring [place] [facility] Start: 12-14-2022 End: 12-14-2022 Patient encounter procedure Out [facility] Start: 12-08-2022 End: 12-08-2022 ambulatory [place] Town [facility] Work Phone: Start: 12-08-2022 End: 12-08-2022 Patient encounter procedure [facility] Start: 12-08-2022 End: 12-08-2022 Patient encounter procedure Out [facility] Gastroenterology Start: 11-26-2022 End: 11-28-2022 ambulatory Out of Town [facility] Work Phone: Start: 11-26-2022 End: 11-28-2022 Discharged Recurring [place] [facility] Start: 10-27-2022 End: 10-28-2022 ambulatory Out [place] Town [facility] Work Phone: Start: 10-27-2022 End: 10-28-2022 Discharged Recurring [place] [facility] Start: 10-12-2022 End: 10-12-2022 Patient encounter procedure José Sheikh APRN.[employer] Work Phone: Dermatology Comment on above: AK (actinic keratosi s) (Primary Dx) Start: 09-17-2022 End: 09-28-2022 ambulatory Out of Town [facility] Work Phone: Start: 09-17-2022 End: 09-28-2022 Discharged Recurring [place] [facility] Start: 09-17-2022 Registered Recurring [place] [facility] Start: 09-15-2022 End: 09-15-2022 ambulatory Out of Town [facility] Work Phone: Start: 09-15-2022 End: 09-15-2022 Patient encounter procedure [facility]Laboratory, Specimen Start: 09-14-2022 End: 09-14-2022 ambulatory Out of Town [facility] Work Phone: Start: 09-14-2022 End: 09-14-2022 Patient encounter procedure [place] [facility] Start: 09-14-2022 End: 09-14-2022 Patient encounter procedure Out Town Doctor [facility] Gastroenterology Start: 08-27-2022 End: 08-28-2022 ambulatory Out of Town Doctor [facility] spital Work Phone: Start: 08-27-2022 End: 08-28-2022 Discharged Recurring [place] [facility] Start: 08-20-2022 End: 08-20-2022 Patient encounter procedure Out Town [facility] Start: 07-28-2022 End: 07-29-2022 ambulatory Out of Town Doctor [facility] sp[facility] Work Phone: Start: 07-28-2022 End: 07-29-2022 Discharged Recurring [place] [facility] Start: 07-02-2022 End: 07-02-2022 Patient encounter procedure José Sheikh APRN.CNP Work Phone: Dermatology Comment on above: AK (actinic keratosi s) (Primary Dx); Multiple benign nevi; Seborrheic keratosis; Deleon angioma; History of nonmelanoma skin cancer Start: 06-25-2022 End: 06-28-2022 Discharged Recurring [place] [facility] Start: 06-16-2022 Registered Recurring No Primar y Care Physician [facility] Start: 06-15-2022 End: 06-15-2022 Patient encounter procedure No Primary Care Physician [facility]Laboratory, BIM Start: 06-08-2022 End: 06-08-2022 Patient encounter procedure No Primary Care Physician [facility] Endocrinology Start: 05-28-2022 End: 05-28-2022 Discharged Recurring No Primary Care Physician [facility] Start: 05-28-[address] Tolu Franz Work Phone: [facility] Start: 05-19-2022 End: 05-28-[address] [facility] Start: 04-28-2022 End: 04-28-[address] Tolu Franz Work Phone: [facility] Start: 03-26-2022 End: 03-28-[address] Tolu Franz [facility] Start: 03-05-2022 End: 03-28-[address] [facility] Start: 03-05-[address] Tolu Franz [facility] Start: 02-26-2022 End: 02-26-[address] Tolu Franz [facility] Start: 02-25-2022 End: 02-25-[address] Tolu Franz Work Phone: [facility] Endocrinology Start: 02-16-2022 End: 02-16-[address] Tolu Franz Work Phone: [facility] Start: 01-29-2022 End: 02-26-[address] Tolu Franz [facility] Start: 01-29-[address] Tolu Franz [facility] Start: 01-20-2022 End: 01-26-[address] Tolu Franz [facility] Start: 01-15-2022 End: 01-26-[address] Tolu Franz [facility] Start: 12-25-2021 End: 12-29-[address] Tolu Franz [facility] Start: 12-11-2021 End: 12-29-[address] Tolu Franz [facility] Start: 11-27-2021 End: 11-28-[address] Tolu Franz [facility] Start: 11-18-2021 End: 11-28-[address] Tolu Franz [facility] Start: 03-24-2018 End: 03-24-2018 Ambulatory BARTOLO Moya REPLACED BY [facility] Procedures Date Procedure Procedure Detail Performing [...] 05-10-2025 SKIN / NAIL BIOPSY Daniel Sheikh [employer] Work Phone: Start: 05-10-2025 CRYOTHERAPY SKIN LESION oJsé Waizi [employer] Work Phone: Start: 03-06-2025 Urinalysis microscop ic only Hortencia Gerard PA-C Work Phone: Start: 03-06-2025 Urnls dip stick/tabl et rgnt auto w/o microscopy Hortencia Gerard PA-C Work Phone: Start: 03-01-2025 SKIN / NAIL BIOPSY Daniel Sheikh [employer] Work Phone: Start: 01-02-2025 Cardiovascular stres s [...] Start: 07-14-2024 CRYOTHERAPY SKIN LESION José Sheikh [employer] Work Phone: Start: 02-21-2024 End: 02-21-2024 CRYOTHERAPY SKIN LESION José Sheikh [employer] Work Phone: Start: 11-25-2023 Radiologic exam ches t 2 views Marifer Albert [employer]ENE [employer] Work Phone: Start: 06-29-2023 Level iv surg pathol ogy gross&microscopic exam José Sheikh [employer] Work Phone: Start: 06-29-2023 SKIN / NAIL BIOPSY Daniel Sheikh [employer] Work Phone: Start: 04-09-2023 URINE SEDIMENT B/O Robe rt Moustapha GOMEZ Work Phone: Start: 04-09-2023 Urnls dip stick/tabl et rgnt auto w/o microscopy Ralph Felipe MD Work Phone: Start: 03-30-2023 End: 03-30-2023 CRYOTHERAPY SKIN LESION José Sheikh [employer] Work Phone: Start: 02-18-2023 CRYOTHERAPY SKIN LESION José Sheikh [employer] Work Phone: Start: 01-12-2023 CRYOTHERAPY SKIN LESION José Sheikh [employer] Work Phone: Start: 01-12-2023 SKIN / NAIL BIOPSY Daniel Sheikh [employer] Work Phone: Start: 01-12-2023 Level iv surg pathol ogy gross&microscopic exam José Sheikh [employer] Work Phone: Start: 01-01-2023 MRI of abdomen with contrast Out Town Doctor Start: 07-02-2022 CRYOTHERAPY SKIN LESION José Sheikh [employer] Work Phone: Start: 02-27-2021 History of placement [...] 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 Clostridium difficil e detection Out [facility] Doctor Clostridium difficil e detection Out [facility] Doctor Enteric Bacteriology Out [place] [facility] Doctor H/O: surgery H/O left wrist surgery History of cataract extraction History of cataract surgery Comment on above: bilateral History of cholecystectomy Hx of cholecystectomy History of tonsillectomy History of tonsillectomy and adenoidectomy Lactoferrin measurement Out [facility] Doctor Lactoferrin measurement Out [facility] Doctor Measurement of occul t blood in stool specimen using immunoassay Out [facility] Doctor Measurement of occul t blood in stool specimen using immunoassay Out [facility] Doctor Plan of Treatment Date Care Activity Detail Author Start: 03-07-2026 End: 03-07-2026 Patient encounter procedure 03/07/2026 11:00 AM EDT Office Visit Urology [address] [place] [address] Hortencia Gerard PA-C [address] [place] [address] annual follow up Urology Comment on above: annual follow up Start: 01-03-2026 End: 01-03-2026 Patient encounter procedure 01/03/2026 11:45 AM EST Office Visit General Surgery [address] [place] [address] Jose Ramon Medina MD [address] [place] [address] 6 MONTH FOLLOW UP General Surgery Comment on above: 6 MONTH FOLLOW UP Start: 11-02-2025 End: 11-02-2025 Patient encounter procedure 11/02/2025 11:00 AM EST Office Visit Dermatology [address] [place], [place] [phone] José Sheikh, [employer]ENE [employer] [address] [place] [address] 3 mo follow up skin check Dermatology Comment on above: 3 mo follow up skin check Start: 11-01-2025 End: 11-01-2025 Patient encounter procedure 11/01/2025 4:00 PM EST Office Visit Dermatology [address] [place] [phone] José Sheikh, [employer]BERENE [employer] [address] [place] [address] 3 month fbse Dermatology Comment on above: 3 month fbse Start: 08-02-2025 End: 08-02-2025 Patient encounter procedure 08/02/2025 4:30 PM EDT Office Visit Dermatology [address] [phone] José Sheikh, ALBERENE [employer] [address] [place] [phone] FBS Dermatology Comment on above: [facility] Start: 08-02-2025 Evaluation of diagno stic study results [facility] Start: 07-30-2025 Influenza vaccination Influenza Vacc ine (#1) [facility] Start: 07-23-2025 Patient discharge [facility] Start: 07-19-2025 End: 07-19-2025 Patient encounter procedure 07/19/2025 8:00 AM EDT Office Visit Dermatology [address] [phone] Corrie Stone PA-C [address] [place], [place] [id number] Growth of concern x1 Dermatology Comment on above: Growth of concern x1 Start: 06-28-2025 Evaluation of diagno [facility] study results [facility] Start: 06-25-2025 End: 06-25-2025 Patient encounter procedure 06/25/2025 10:15 AM EDT Office Visit Dermatology [address] [place], [place] [phone] Gracia Washington MD [address] [place] [address] Mohs: Right superior helix, SCC Mod Diff, 3 pts Dermatology Comment on above: Mohs: Right superior helix, SCC Mod Diff, 3 pts Start: 06-21-2025 End: 06-21-2025 Patient encounter procedure 06/21/2025 11:30 AM EDT Office Visit General Surgery [address] [place] [address] Jose Ramon Medina MD [address] [place] [address] 93-DJ 3 week follow up General Surgery Comment on above: 93-DJ 3 week follow up Start: 06-19-2025 End: 06-19-2025 [facility] Start: 06-19-2025 End: 06-19-2025 [facility] Start: 06-15-2025 [facility] Start: 06-15-2025 End: 06-15-2025 Patient encounter procedure 06/15/2025 7:00 AM EDT Office Visit Dermatology [address] [place] [address] Corrie Stone PA-C [address] [place] [address] Growth of concern Dermatology Comment on above: Growth of concern Start: 06-14-2025 [facility] Start: 06-14-2025 End: 06-14-2025 [facility] Start: 05-10-2025 End: 05-10-2025 Patient encounter procedure 05/10/2025 1:30 PM EDT Office Visit Dermatology [address] [phone] José Sheikh, ALBERENE [employer] [address] [place] [address] FBSE Dermatology Comment on above: FBSE Start: 05-03-2025 End: 05-03-2025 Patient encounter procedure 05/03/2025 1:30 PM EDT Office Visit Dermatology [address] [phone] José Sheikh APRN.[employer] [address] [place] [address] FBSE Dermatology Comment on above: FBSE Start: 04-12-2025 End: 04-12-2025 Patient encounter procedure 04/12/2025 10:30 AM EDT Office Visit Dermatology [id number] [place] [address] Stro, Nurse Derm [facility] [phone] [place] [address] pdt Dermatology Comment on above: pdt Start: 03-06-2025 End: 03-06-2025 Patient encounter procedure 03/06/2025 2:00 PM EDT Office Visit Urology [address] [place], [place] [phone] Hortencia Gerard PA-C [address] [place] [address] 3 M FOLLOW UP Urology Comment on above: 3 M FOLLOW UP Start: 03-05-2025 Shingrix Vaccine (3 of 3) Bhatt grix Vaccine (3 of 3) [facility] Start: 02-23-2025 End: 05-25-2025 Prostate Specific Ag Free [Mass/volume] in Serum or Plasma [facility] Work Phone: Comment on above: Expected: 02/23/2025 , Expires: 05/25/2025 Start: 02-01-2025 End: 02-01-2025 Patient encounter procedure 02/01/2025 12:00 PM EST Office Visit Dermatology [id number] [place] [address] José Sheikh, SILVER[employer] [address] [place] [address] body skin check Dermatology Comment on above: body skin check Start: 01-11-2025 End: 01-11-2025 Patient encounter procedure 01/11/2025 1:30 PM EST Office Visit Urology [address] [place] [address] Hortencia Gerard PA-C [address] [place] [address] 3 M FOLLOW UP Urology Comment on above: 3 M FOLLOW UP Start: 12-21-2024 End: 12-21-2024 Patient encounter procedure 12/21/2024 11:00 AM EST Office Visit General Surgery [address] [place] [address] Jose Ramon Medina MD [address] [place] [address] 3 week follow up General Surgery Comment on above: 3 week follow up Start: 11-29-2024 Advance Directive Discussion Advance Directive Discussion [facility] Start: 11-27-2024 Subsequent hospital visit by physician 11/27/2024 Hospital Encounter [facility] [address] [address] Jose Ramon Medina MD [address] [place] [address] 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] Surgery Center Comment on above: 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] Start: 11-16-2024 End: 11-16-2024 Patient encounter procedure 11/16/2024 11:00 AM EST [place] [address] [address] [place] [address] Jose Ramon Medina MD [address] [place] [address] melanoma left upper back [facility] Comment on above: melanoma left upper back Start: 11-02-2024 End: 11-02-2024 Patient encounter procedure 11/02/2024 1:20 PM EST Office Visit Dermatology [id number] [place] [address] [phone] Corrie Stone PA-C [address] [place] [address] FBSE Dermatology Comment on above: FBSE Start: 10-17-2024 End: 10-17-2024 Patient encounter procedure 10/17/2024 1:45 PM EST Office Visit Dermatology [address] [place] [address] José Sheikh, ALBERENE [employer] [address] [place] [address] Follow Up Dermatology Comment on above: Follow Up Start: 07-30-2024 Covid-19 Vaccine ( season) Covid-19 Vaccine () [facility] Start: 07-30-2024 Covid-19 Vaccine ( season) Covid-19 Vaccine () [facility] Start: 07-30-2024 Influenza vaccination [facility] Start: 07-20-2024 End: 07-20-2024 Patient encounter procedure 07/20/2024 10:45 AM EDT Appointment Radiology [address] [place], [place] [id number] Scrotal skin lesion [N50.9] Radiology Comment on above: Scrotal skin lesion [N50.9] Start: 07-14-2024 End: 07-14-2024 Patient encounter procedure 07/14/2024 12:00 PM EDT Office Visit Dermatology [address] [place] [address] José Sheikh, ALBERENE [employer] [address] [place] [address] follow up PDT Dermatology Comment on above: follow up PDT Start: 05-10-2024 End: 05-10-2024 Patient encounter procedure 05/10/2024 1:00 PM EDT Office Visit Dermatology [address] [place] [address] Stro, Nurse Derm [facility] [address] [place] [address] PDT Dermatology Comment on above: PDT Start: 01-26-2024 CBC W Auto Different ial panel - Blood [facility] Start: 01-26-2024 Comprehensive metabo lic 1999 panel - Serum or Plasma [facility] Start: 01-26-2024 Thyrotropin [Units/v olume] in Serum or Plasma [facility] Start: 01-26-2024 [facility] Start: 11-29-2023 Advance Directive Discussion Advance Directive Discussion [facility] Start: 11-29-2023 Behavioral Health Screening Behavioral Health Screening [facility] Start: 11-29-2023 Depression Assessment Depression Ass essment [facility] Start: 07-30-2023 Covid-19 Vaccine () Covid-19 Vaccine () [facility] Start: 07-30-2023 Influenza vaccination [facility] Start: 06-25-2023 CBC W Auto Different ial panel - Blood [facility] Start: 06-25-2023 Comprehensive metabo lic 1999 panel - Serum or Plasma [facility] Start: 06-25-2023 Thyrotropin [Units/v olume] in Serum or Plasma [facility] Start: 06-25-2023 End: 06-25-2023 [facility] Start: 06-05-2023 End: 08-05-2023 Bacteria identified in Wound by Culture ABSCESS AND WOUND CULTURE WITH GRAM STAIN Microbiology Routine Rash Expected: 06/05/2023, Expires: 08/05/2023 [facility] Work Phone: Comment on above: Expected: 06/05/2023 , Expires: 08/05/2023 Start: 06-05-2023 End: 08-05-2023 Fungus identified in Unspecified specimen by Culture FUNGAL SCREEN Microbiology Routine Rash Expected: 06/05/2023, Expires: 08/05/2023 [facility] Work Phone: Comment on above: Expected: 06/05/2023 , Expires: 08/05/2023 Start: 02-03-2023 Following clinical p [facility] Start: 11-29-2022 ADVANCE DIRECTIVE DISCUSSION ADVANCE DIRECTIVE DISCUSSION [facility] Start: 11-29-2022 DEPRESSION ASSESSMENT DEPRESSION ASS ESSMENT [facility] Start: 09-27-2022 Urine microalbumin profile DTa P,Tdap,Td Vaccine (2 - Td or Tdap) [facility] Start: 09-15-2022 Procedure [facility] Work Phone: Start: 09-14-2022 IgE [Units/volume] i n Serum or Plasma [facility] Work Phone: Start: 09-14-2022 Serum immunofixation [facility] Work Phone: Start: 09-14-2022 [facility] Start: 07-30-2022 Influenza vaccination INFLUENZA (#1) [facility] Start: 06-16-2022 DIABETES SCREEN DIABETES SCREEN [facility] Start: 06-16-2022 Diabetes Screening Diabetes Screenin g [facility] Start: 05-26-2022 COVID-19 VACCINE (5 - Booster for Moderna series) COVID-19 VACCINE (5 - Booster for Moderna series) [facility] Start: 05-26-2022 COVID-19 VACCINE (5 - Moderna risk series) COVID-19 VACCINE (5 - Moderna risk series) [facility] Start: 11-29-2021 ADVANCE DIRECTIVE DISCUSSION ADVANCE DIRECTIVE DISCUSSION [facility] Start: 11-29-2021 DEPRESSION ASSESSMENT DEPRESSION ASS ESSMENT [facility] Start: 2015 RSV Vaccine (1 - 1-d ose 75+ series) RSV Vaccine (1 - 1-dose 75+ series) [facility] Start: 12-27-2012 Shingrix Vaccine (1 of 2) Bhatt grix Vaccine (1 of 2) [facility] Start: 12-27-2012 Shingrix Vaccine (2 of 3) Bhatt grix Vaccine (2 of 3) [facility] Start: 2005 PNEUMOCOCCAL: 65+ (1 - PCV) PNEUMOCOCCAL: 65+ (1 - PCV) [facility] Start: 12-30-2004 Medicare Annual Well ness Visit Medicare Annual Wellness Visit [facility] Start: 2000 RSV Vaccine (1 - 1-d ose 60+ series) RSV Vaccine (1 - 1-dose 60+ series) [facility] Start: 1990 SHINGRIX VACCINE (1 of 2) BHATT GRIX VACCINE (1 of 2) [facility] Start: 1959 SHINGRIX VACCINE (1 of 2) BHATT GRIX VACCINE (1 of 2) [facility] Start: 1959 Urine microalbumin profile DTA P,TDAP,TD (1 - Tdap) [facility] Start: 1958 Anxiety Screening Anxiety Screening [facility] Start: 1958 Depression Screening Depression Scre ening [facility] Start: 1946 PNEUMOCOCCAL: 65+ (1 - PCV) PNEUMOCOCCAL: 65+ (1 - PCV) [facility] Alanine aminotransfe rase [Enzymatic activity/volume] in Serum or Plasma [facility] Alanine aminotransfe rase [Enzymatic activity/volume] in Serum or Plasma [facility] Albumin [Mass/volume ] in Serum or Plasma [facility] Albumin [Mass/volume ] in Serum or Plasma [facility] Albumin [Moles/volum e] in Serum or Plasma [facility] Work Phone: Albumin/Globulin ratio [facility] Work Phone: Albumin/Globulin ratio [facility] Albumin/Globulin ratio [facility] Alkaline phosphatase [Enzymatic activity/volume] in Serum or Plasma [facility] Alkaline phosphatase [Enzymatic activity/volume] in Serum or Plasma [facility] Anion gap in Serum o r Plasma [facility] Anion gap measurement [facility] Anion gap measurement [facility] Aspartate aminotrans ferase [Enzymatic activity/volume] in Serum or Plasma [facility] Aspartate aminotrans ferase [Enzymatic activity/volume] in Serum or Plasma [facility] Bacteria identified in Urine by Culture URINE CULTURE Microbiology Routine Acute cystitis with hematuria 04/09/2023 1:[address] [facility] Work Phone: Basophil count [facility] Basophil count [facility] Basophil percent differential count [facility] Basophil percent differential count [facility] Bilirubin.total [Mass/volume] in Serum or Plasma [facility] Bilirubin.total [Mass/volume] in Serum or Plasma [facility] BUN/Creatinine ratio [facility] C reactive protein [Mass/volume] in Serum or Plasma [facility] Calcium [Mass/volume ] in Serum or Plasma [facility] Calcium [Mass/volume ] in Serum or Plasma [facility] Calcium [Mass/volume ] in Serum or Plasma [facility] Carbon dioxide, tota l [Moles/volume] in Central venous blood [facility] Carbon dioxide, tota l [Moles/volume] in Serum or Plasma [facility] Carbon dioxide, tota l [Moles/volume] in Serum or Plasma [facility] CBC W Auto Different ial panel - Blood [facility] CBC W Auto Different ial panel - Blood [facility] CBC W Auto Different ial panel - Blood [facility] CBC W Auto Different ial panel - Blood [facility] Celiac disease screen [facility] Chloride [Moles/volu me] in Serum or Plasma [facility] Chloride [Moles/volu me] in Serum or Plasma [facility] Cholesterol [Mass/vo lume] in Serum or Plasma [facility] Cholesterol [Mass/vo lume] in Serum or Plasma [facility] Cholesterol in HDL [Mass/volume] in Serum or Plasma [facility] Cholesterol in HDL [Mass/volume] in Serum or Plasma [facility] Cholesterol in LDL [Mass/volume] in Serum or Plasma [facility] Cholesterol in LDL [Mass/volume] in Serum or Plasma [facility] Comprehensive metabo lic 1999 panel - Serum or Plasma [facility] Comprehensive metabo lic 1999 panel - Serum or Plasma [facility] Comprehensive metabo lic 1999 panel - Serum or Plasma [facility] Comprehensive metabo lic 1999 panel - Serum or Plasma [facility] Creatinine [Mass/vol ume] in Serum or Plasma [facility] Creatinine [Mass/vol ume] in Urine [facility] Creatinine [Moles/vo lume] in Serum or Plasma [facility] Creatinine [Moles/vo lume] in Serum or Plasma [facility] Creatinine and Glome rular filtration rate.predicted panel - Serum, Plasma or Blood [facility] Creatinine and Glome rular filtration rate.predicted panel - Serum, Plasma or Blood [facility] ECG COMPLETE ECG COMPLETE ECG Routine Fever, unspecified fever cause Dyspnea, unspecified type 06/14/2025 4:[address] [facility] Work Phone: Electrophoresis: [id number] [facility] Work Phone: Electrophoresis: sommer ma globulin [facility] Work Phone: Eosinophil percent differential count [facility] Eosinophil percent differential count [facility] Eosinophils [#/volum e] in Blood [facility] Eosinophils [#/volum e] in Blood [facility] Erythrocyte mean corpuscular volume determination [facility] Erythrocyte mean corpuscular volume determination [facility] Erythrocyte mean corpuscular volume determination [facility] Erythrocyte sediment ation rate [facility] Erythrocytes [#/volu me] in Blood [facility] Erythrocytes [#/volu me] in Blood [facility] Excision mal lesion trunk/arm/leg 1.1-2.0 cm 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) PLASTICS A60 Ferritin [Mass/volum e] in Serum or Plasma [facility] Globulin [Mass/volum e] in Serum [facility] Globulin [Mass/volum e] in Serum [facility] Globulin measurement [facility] Work Phone: Glucose [Mass/volume ] in Serum or Plasma [facility] Glucose [Mass/volume ] in Serum or Plasma [facility] Glucose [Mass/volume ] in Serum or Plasma [facility] Glucose measurement estimated from glycated hemoglobin [facility] Hematocrit [Volume Fraction] of Blood [facility] Hematocrit [Volume Fraction] of Blood [facility] Hematocrit [Volume Fraction] of Blood [facility] Hemoglobin [Mass/vol ume] in Blood [facility] Hemoglobin [Mass/vol ume] in Blood [facility] Hemoglobin [Mass/vol ume] in Blood [facility] Hemoglobin A1c/Hemoglobin.total in Blood [facility] Hemoglobin distribut ion, width determination [facility] Hemoglobin distribut ion, width determination [facility] IgA [Mass/volume] in Serum or Plasma [facility] Work Phone: IgE [Units/volume] i n Serum or Plasma [facility] Work Phone: IgG [Mass/volume] in Serum or Plasma [facility] Work Phone: IgM [Mass/volume] in Serum or Plasma [facility] Work Phone: Lactate dehydrogenas e measurement [facility] Leukocytes [#/volume ] in Blood [facility] Lipoprotein choleste rol ratio measurement [facility] Lipoprotein choleste rol ratio measurement [facility] Lymphocyte count [facility] Lymphocyte count [facility] Lymphocyte percent differential count [facility] Lymphocyte percent differential count [facility] Mean corpuscular hemoglobin concentration determination [facility] Mean corpuscular hemoglobin concentration determination [facility] Mean corpuscular hemoglobin concentration determination [facility] Mean corpuscular hemoglobin determination [facility] Mean corpuscular hemoglobin determination [facility] Mean corpuscular hemoglobin determination [facility] Measurement of renal function [facility] Measurement of renal function [facility] Measurement of renal function [facility] Microalbumin [Mass/t presley] in Urine collected for unspecified duration [facility] Microalbumin/Creatin ine [Ratio] in 24 hour Urine [facility] Monocyte count [facility] Monocyte count [facility] Monocyte percent differential count [facility] Monocyte percent differential count [facility] MR Abdomen WO and W contrast IV [facility] Neutrophil count [facility] Neutrophil count [facility] Neutrophil count [facility] Neutrophil cytoplasm ic Ab.classic [Units/volume] in Serum [facility] Work Phone: Neutrophil percent differential count [facility] Neutrophil percent differential count [facility] Neutrophil percent differential count [facility] P-ANCA measurement [facility] Work Phone: Patient Education [facility] Work Phone: Patient referral [facility] Work Phone: PHOTODYNAMIC THERAPY [facility] Work Phone: Comment on above: Ordered: 07/02/2022 PHOTODYNAMIC THERAPY PHOTODYNAMI C THERAPY Procedures Routine 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 Ordered: 10/12/2023 [facility] Work Phone: Comment on above: Ordered: 10/12/2023 PHOTODYNAMIC THERAPY PHOTODYNAMI C THERAPY Procedures Routine AK (actinic keratosis) Ordered: 04/07/2024 [facility] Work Phone: Comment on above: Ordered: 04/07/2024 PHOTODYNAMIC THERAPY PHOTODYNAMI C THERAPY Procedures Routine AK (actinic keratosis) Ordered: 02/01/2025 [facility] Work Phone: Comment on above: Ordered: 02/01/2025 PHOTODYNAMIC THERAPY PHOTODYNAMI C THERAPY Procedures Routine AK (actinic keratosis) Ordered: 08/02/2025 [facility] Work Phone: Comment on above: Ordered: 08/02/2025 Platelet mean volume determination [facility] Platelet mean volume determination [facility] Platelets [#/volume] in Blood [facility] Platelets [#/volume] in Blood [facility] Platelets [#/volume] in Blood [facility] Potassium [Moles/vol ume] in Serum or Plasma [facility] Potassium [Moles/vol ume] in Serum or Plasma [facility] Potassium measurement [facility] Work Phone: Protein [Mass/volume ] in Serum or Plasma [facility] Protein [Mass/volume ] in Serum or Plasma [facility] Protein electrophore sis panel - Serum or Plasma [facility] Work Phone: Red blood cell count [facility] Red cell distributio n width determination [facility] Serum chloride measurement [facility] Serum immunofixation [facility] Serum protein electrophoresis [facility] Work Phone: Sodium [Moles/volume ] in Serum or Plasma [facility] Sodium [Moles/volume ] in Serum or Plasma [facility] Sodium measurement [facility] SURGICAL PATHOLOGY [facility] Work Phone: Comment on above: Release Upon Orderin g for 1 Occurrences starting 11/02/[address] [facility] Work Phone: Comment on above: Release Upon Orderin g for 1 Occurrences starting 11/27/2024, 1 completed T4 free measurement [facility] Thyroid stimulating hormone measurement [facility] Thyrotropin [Units/v olume] in Serum or Plasma [facility] Thyrotropin [Units/v olume] in Serum or Plasma [facility] Thyrotropin [Units/v olume] in Serum or Plasma [facility] Thyroxine (T4) [Mass/volume] in Serum or Plasma [facility] Tissue Pathology bio psy report [facility] Work Phone: Comment on above: Release Upon Orderin g for 1 Occurrences starting 03/01/2025 Tissue [address] bio psy report [facility] Work Phone: Comment on above: Release Upon Orderin g for 1 Occurrences starting 05/10/2025, 1 completed Triglyceride [Mass/v olume] in Serum or Plasma [facility] Triglyceride [Mass/v olume] in Serum or Plasma [facility] Triiodothyronine, fr ee measurement [facility] Troponin T.cardiac [Mass/volume] in Serum or Plasma by High sensitivity method [facility] Troponin T.cardiac [Mass/volume] in Serum or Plasma by High sensitivity method [facility] Troponin T.cardiac [Mass/volume] in Serum or Plasma by High sensitivity method [facility] Urea nitrogen [Mass/volume] in Serum or Plasma [facility] Urea nitrogen [Mass/volume] in Serum or Plasma [facility] Urea nitrogen [Mass/volume] in Serum or Plasma [facility] End: 08-16-2025 US.doppler Scrotum and testicle US SCROTUM AND CONTENTS Radiology Routine Scrotal skin lesion 1 Occurrences starting 07/17/2024 until 08/16/2025 [facility] Work Phone: Comment on above: 1 Occurrences starti ng 07/17/2024 until 08/16/2025 US.doppler Scrotum a nd testicle US SCROTUM AND CONTENTS Radiology Routine Scrotal skin lesion 07/20/2024 11:[address] [facility] Work Phone: [facility] Immunizations Immunization Date Immunization Notes Care Provider Fa cility 03-29-2025 zoster vaccine [facility] 01-08-2025 zoster vaccine [facility] 08-18-2024 Respiratory Syncytia l Virus Vaccine [facility] 08-18-2024 Seasonal trivalent influenza vaccine, adjuvanted, preservative free [facility] 08-18-2024 influenza virus vacc ine, unspecified formulation Kris Crouch MD Work Phone: [facility] 08-04-2022 Influenza Quadrivale nt Adjuvanted [facility] 08-04-2022 influenza virus vacc ine, unspecified formulation Gracia Washington MD Work Phone: [facility] 03-31-2022 COVID-19 Vaccine [facility] 08-29-2021 COVID-19 Vaccine [facility] 08-07-2021 Influenza Quadrivale nt Adjuvanted PF [facility] 2021 Covid (Moderna) Dr. Tolu villagran Work Phone: [facility] 12-22-2020 COVID-19 Vaccine [facility] 12-12-2020 Covid (Moderna) Dr. Tolu villagran Work Phone: [facility] 09-21-2020 influenza, high-dose , quadrivalent vaccine (FLUZONE HIGH DOSE QUADRIVALENT) José Sheikh APRN.[facility] Work Phone: [facility] Work Phone: 08-14-[address] Tolu Franz Work Phone: [facility] 09-05-2019 influenza, high dose seasonal, preservative-free José Kori WILKINSON Work Phone: [facility] 09-08-2018 influenza, injectabl e, quadrivalent, contains preservative [facility] 09-03-2017 Influenza, injectabl e, Madin Patterson Canine Kidney, preservative free, quadrivalent [facility] 12-02-2016 pneumococcal polysaccharide vaccine, 23 valent [facility] 06-29-2016 influenza virus vacc ine, unspecified formulation [facility] 10-16-2015 pneumococcal conjuga te vaccine, 13 valent [facility] 08-29-2015 influenza, high dose seasonal, preservative-free [facility] 07-19-2015 influenza, high dose seasonal, preservative-free [facility] 08-09-2014 influenza, high dose seasonal, preservative-free [facility] 08-28-2013 influenza, seasonal, injectable [facility] 11-01-2012 zoster vaccine, live [facility] 09-27-2012 tetanus toxoid, redu zahira diphtheria toxoid, and acellular pertussis vaccine, adsorbed [facility] 08-30-2012 influenza, seasonal, injectable [facility] 10-02-2011 pneumococcal polysaccharide vaccine, 23 valent [facility] 08-19-2011 influenza, high dose seasonal, preservative-free [facility] Payers Date Payer Category Payer Self-pay [id number] 2019 Private Health Insurance MMO MED ICARE SUPPLEMENT [id number] 2019 Unknown MMO MMO MEDICARE SUPPLEMENT [id number] 2019-Present [phone] [address] [place] [address] Indemnity [id number] 2019 Unknown [id number] 2017 Medicare [id number] 2004 Medicare [id number] 2004 Medicare [id number] Unknown [id number] Unknown VA AUTH REQUIR ED SEE NOTE [id number] Unknown [id number] [id number]. 921 Unknown [id number] .[id number]. 921 Unknown [id number] 20.1.040648.3.579.2. 462 Unknown [id number] 2.0.1.398610.3.579.2. 462 Unknown [id number] 2.840.1.749609.3.579.2. 462 Unknown [id number] 2.840.1.133689.3.579.2. 462 Unknown [id number] 2.0.1.411198.3.579.2. 462 Unknown [id number] 2.16.840.1.151497.3.579.2. 462 Unknown [id number] 2.16.840.1.515503.3.579.2. 462 Unknown [id number] 2.16.840.1.490692.3.579.2. 462 Unknown [id number] 2.16.840.1.506597.3.579.2. 462 Unknown [id number] 2.16.840.1.385595.3.579.2. 462 Unknown [id number] 2.16.840.1.843291.3.579.2. 462 Unknown [id number] 2.16.840.1.371077.3.579.2. 462 Unknown [id number] 2.16840.1.874660.3.579.2. 462 Unknown [id number] 2.16840.1.256930.3.579.2. 462 Unknown [id number] 2.16.840.1.019433.3.579.2. 462 Unknown [id number] 2.16.840.1.900047.3.579.2. 462 Unknown [id number] 2.16.840.1.462467.3.579.2. 462 Unknown [id number] 2.16.840.1.003836.3.579.2. 462 Unknown [id number] 2.16840.1.249118.3.579.2. 462 Unknown [id number] 2.16.840.1.058100.3.579.2. 462 Unknown [id number] 2.16.840.1.149889.3.579.2. 462 Unknown [id number] 2.16.840.1.782024.3.579.2. 462 Unknown [id number] 2.16.840.1.388514.3.579.2. 462 Unknown [id number] 2.16.840.1.012680.3.579.2. 462 Unknown [id number] 2.16.840.1.281363.3.579.2. 462 Unknown [id number] 2.16.840.1.360624.3.579.2. 462 Unknown [id number] 2.16.840.1.663293.3.579.2. 462 Unknown [id number] 2.16.840.1.814939.3.579.2. 462 Unknown [id number] 2.16840.1.641419.3.579.2. 462 Social History Date Type Detail Facility Start: 02-25-2022 End: 2024 Tobacco smoking status IAIS Unknown if ever smoked [facility] Start: 03-18-2021 Occasional [facility] Start: 03-18-2021 None [facility] Start: 03-18-2021 Alone [facility] Start: 04-03-2021 Pipe [facility] Start: 1940 Sex Assigned At Male [facility] Start: 03-09-2019 End: 06-05-2023 Tobacco smoking status IAIS Never smoked tobacco [facility] Start: 03-09-2019 End: 06-05-2023 Tobacco use and exposure Smokeless tobacco non-user [facility] Start: 10-03-2020 End: 06-14-2025 Alcohol intake Not Asked [facility] Start: 06-22-2022 End: 10-12-2022 Exposure to SARS-CoV-2 (event) Not sure [facility] Start: 04-09-2023 End: 06-05-2023 History of Social function [facility] Start: 04-09-2023 End: 06-05-2023 Tobacco use panel [facility] Start: 10-30-2012 National Score (1-100), lower number is lower risk 35 [facility] Start: 06-24-2021 Gender identity Identifies as male gender (finding) [facility] Work Phone: Start: 06-23-2023 End: 07-23-2025 Tobacco smoking status NHIS Ex-smoker (finding) [facility] Start: 08-23-2024 End: 04-18-2025 Sex Male (finding) [facility] Procedure Code Equipment Code Equipment [...] Assessment Result Facility 06-19-2025 Cognitive function Voice/Name [facility] Work Phone: 06-14-2025 Cognitive function Voice/Name [facility] Work Phone: 01-01-2023 Cognitive function Voice/Name [facility] Work Phone: Clinical Notes 03-29-2021 to 08-14-2025 Telephone Encounter - Marifer Ricks RN - 08/14/2025 11:41 AM EDTTelephone Encounter - Marifer Ricks RN - 08/14/2025 11:41 AM José Ballesteros APRN.TEACHER [employer] - 08/02/2025 4:30 PM EDT Note Date & Type Note Facility 08-14-2025 Telephone encount er Note Spoke with patient. Patient wants to delay treatment until after the new year. Patient will reach out when he is ready to reschedule. [facility] 08-14-2025 Miscellaneous Notes Formattin g of [...] José Sheikh APRN.SHARON documented in this encounter [facility] 08-14-2025 Telephone encount er Note Noted. Please contact patient. If he wishes to delay treatment until after upcoming cardiac care, that is OK. If he wishes to re-schedule, then I recommend following the instructions as provided. If he has any further questions for me, please let me know. Thank you, José Sheikh APRN.CNP [facility] 08-02-2025 History of Presen t illness [...] Past Histories independently gathered by the clinical support associate and the remaining scribed note accurately describes my personal service to the patient. José Sheikh APRN.CNP documented in this encounter [facility] 08-02-2025 Note HNO ID: [id number] Author: JOSÉ SHEIKH APRN.CNP Service: ? Author [...] Past Histories independently gathered by the clinical support associate and the remaining scribed note accurately describes my personal service to the patient. José Sheikh APRN.SHARON [facility] 07-31-2025 Instructions Alton Tarango LPN - [...] health care provider. documented in this encounter [facility] 07-23-2025 Procedure note [facility] 07-23-2025 Procedure note [facility] 07-11-2025 Note HNO ID: [id number] Author: JOSE RAMON MEDINA MD Service: ? 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, with an appointment scheduled for the end [...] Medina MD, FACS documented in this encounter [facility] 06-26-2025 Evaluation note Diagnosis Onset Date Resolution Fatigue acute June 26 9:27am Crohn disease chronic June 26, 2025 9:27am Atrial fibrillation, new onset inactive June 26, 2025 9:27am Atrial fibrillation acute June 28, 2025 1:38pm Essential hypertension chronic June 28, 2025 1:38pm Presence of stent in coronary artery Mar, 2021 chronic June 28 1:38pm [facility] Work Phone: 1(961) 317-906707-22-2025 Radiology Diagnostic study note [facility] Imaging Services [address] [place] [address] Chest 1 View (Portable) MR#: [id number] Acct: [id number] Name: RAYA MCNAIR Rep #: [id number] : 1940 M [id number] From: Kash Edmond MD PCP: Dao Raphael Jr., MD Status: REG ER Study:Chest 1 View (Portable) Date of Exam: 06/19/25 Exam# [id number] Ordering Dr: Kapil Velasquez DO PROCEDURE: CHEST 1 VIEW (PORTABLE) 06/19/2025 REASON FOR EXAM: PALPITATIONS TECHNIQUE: Frontal view of the chest. COMPARISON: 06/14/2025 FINDINGS: Lungs/Pleura: Clear. No pneumothorax or pleural effusion. Heart/Mediastinum: Mild cardiomegaly. No vascular congestion. Bones/Soft tissues: Degenerative changes of the spine and bilateral AC joints. RAD/Chest 1 View (Portable) IMPRESSION: Cardiomegaly. No acute pulmonary disease. Reading Location: [id number] CC: Dr. Luis Velasquez DO; Dao Raphael Jr., MD ~ Hair Worker: Signed [facility]07-17-2025 Radiology Diagnostic study note [facility] Imaging Services [address] [place], [place] [id number] Chest 1 View (Portable) MR#: [id number] Acct: [id number] Name: RAYA MCNAIR Rep #: [id number] : 1940 M [id number] From: Lizbeth Crowell MD PCP: Status: PRE ER Study:Chest 1 View (Portable) Date of Exam: 06/14/25 Exam# [id number] Ordering Dr: Provider ,Ed P. PROCEDURE: CHEST 1 VIEW (PORTABLE) 06/14/2025 REASON FOR EXAM: CHEST PAIN TECHNIQUE: Frontal view of the chest. COMPARISON: None FINDINGS: Hardware: None Heart: Not significantly enlarged Lungs: No focal consolidation or pleural effusion. Bones: Degenerative changes are identified within the thoracic spine. RAD/Chest 1 View (Portable) IMPRESSION: No acute cardiopulmonary abnormality. Reading Location: [facility] CC: ED PHYSICIAN PROVIDER ~ Hair Worker: Signed [facility]07-17-2025 Instructions* Patient Instructions* Kris Crouch MD - 06/14/2025 4:36 PM EDT YOU WILL NEED AN EVALUATION IN THE [place] [facility] NOW documented in this encounterH[facility] History of Present illness Narrative* Agustin [...] PATIENT PRESENTS WITH AN IMPLANTABLE OR ATTACHED DRILLING FLUIDS SPECIALIST: No RADIOLOGY DEPARTMENT: General X-ray: Exam(s) Completed: Chest X-Ray PERIPHERAL IV DATA: Not applicable SIGNED BY: RT Rodolfo(R) June 14, 2025 3:58 PM documented in this encounterHocking [facility]07-17-2025 NoteHNO ID: [id number] Author: AGUSTIN TURNER RT(Amy) Service: ? Author Type: Robotics Systems Engineer Type: Progress Notes Filed: 06/14/2025 16:20 [...] PATIENT PRESENTS WITH AN IMPLANTABLE OR ATTACHED DRILLING FLUIDS SPECIALIST: No RADIOLOGY DEPARTMENT: General X-ray: Exam(s) Completed: Chest X-Ray PERIPHERAL IV DATA: Not applicable SIGNED BY: RT Rodolfo(R) June 14, 2025 3:58 [facility]25 NoteHNO ID: [id number] Author: KRIS CROUCH MD Service: ? Author [...] immediate eval Disposition The patient was [facility]. [facility] History of Present illness Narrative* Kris [...] Physician or Supervisory/Collaborating Physician included: discussed with sedalia ed pt refuses transport will await arrival for immediate eval Disposition The patient was discharged. Procedures documented in this encounterH[facility]06-[facility] Telephone encounter Note * Telephone Encounter - Foreign Guerrero RN - 05/14/2025 10:14 AM EDT Called patient regarding biopsy results and to discuss Mohs surgery expectations/instructions. Patient voiced understanding and would like to proceed. Routed to Mohs schedulers to set up appointment time. Preference is JL. Foreign Guerrero RN May 14, 2025 10:16 AM [facility]06-16-2025 Miscellaneous Notes* Telephone Encounter - Foreign Guerrero RN - 05/14/2025 10:14 AM EDT Called patient regarding biopsy results and to discuss Mohs surgery expectations/instructions. Patient voiced understanding and would like to proceed. Routed to Mohs schedulers to set up appointment time. Preference is JL. Foreign Guerrero RN May 14, 2025 10:16 AM * [...] you, José Sheikh APRN.CNP documented in this encounterH[facility]06-[facility] Telephone encounter Note * Telephone Encounter [...] Patient Preference *Photos in 05/10 Office Visit [facility]06-13-2025 Telephone encounter Note* Telephone Encounter - José Sheikh APRN.CNP - 05/11/2025 3:26 PM EDT Please call the patient with the following results: FINAL DIAGNOSIS A. Skin, right superior helix, shave biopsy: - Invasive moderately-differentiated squamous cell carcinoma. Recommended treatment: mohs Recommend Follow up Full Body Skin Check in 3 months. Thank you, José Sheikh APRN.TEACHER [employer] [facility]06-12-2025 History of Present illness Narrative* José Sheikh APRN.CNP - 05/10/2025 1:30 PM EDT Images from the original note were not included. Department of Dermatology José Sheikh APRN.CNP Last visit in Dermatology: 04/12/2025 Objective/Assessment/Plan Skin Exam 1. NEOPLASM OF UNSPECIFIED BEHAVIOR OF BONE, SOFT TISSUE, AND SKIN Right Superior [place] 7 x 6 mm erythematous hyperkeratotic papule [...] Forearm - Posterior, Right Forehead (2), Right Muslim Erythematous, hyperkeratotic papules CRYOTHERAPY SKIN LESION - Left Buccal Cheek, Right Forearm - Posterior, Right Forehead (2), Right Muslim Complexity: simple Destruction method: cryotherapy Informed consent: [...] shave biopsy Informed Consent Consent Obtained: Verbal [place] Protocol A moment to CARE was completed [...] Past Histories independently gathered by the clinical support associate and the remaining scribed note accurately describes my personal service to the patient. José Sheikh APRN.CNP documented in this encounterHocking Valley [facility] Hospital06-12-2025 NoteHNO ID: [id number] Author: JOSÉ SHEIKH APRN.CNP Service: ? Author Type: Nurse Practitioner Type: Progress Notes Filed: 05/10/2025 14:34 Note Text: Department of Dermatology José Sheikh APRN.CNP Last visit in Dermatology: 04/12/2025 Objective/Assessment/Plan Skin Exam 1. NEOPLASM OF UNSPECIFIED BEHAVIOR OF BONE, SOFT TISSUE, AND SKIN Right Superior [place] 7 x 6 mm erythematous hyperkeratotic papule [...] Forearm - Posterior, Right Forehead (2), Right Muslim Erythematous, hyperkeratotic papules CRYOTHERAPY SKIN LESION - Left Buccal Cheek, Right Forearm - Posterior, Right Forehead (2), Right Muslim Complexity: simple Destruction method: cryotherapy Informed consent: [...] extremities, bilateral lower extremities, (more content not included)...[facility]06-12-2025 Instructions* Patient Instructions* Alton Tarango LPN [...] often helpful.Additional information can be obtained at: [email or web address] 2. In many cases, skin cancer can [...] are healing, please send your provider a Unblab message or call . CARE FOR YOUR [...] are healing, please send your provider a Unblab message or call . documented in this encounterH[facility]05-15-2025 Instructions* Patient Instructions* Ramila Anna RN [...] swelling and redness, you may also take mwht-sps-cgfaopg oral medications: Claritin (loratidine) 10 mg in [...] protect you from sunlight documented in this encounterHocking Valley [facility] Hospital05-15-2025 NoteHNO ID: [id number] Author: MARIFER RICKS RN Service: ? Author Type: Registered Nurse Type: Progress Notes Filed: 04/12/2025 11:40 Note Text: PHOTODYNAMIC THERAPY April 12, 2025 Dx: Actinic Keratosis Pt ID verified with patient: Yes Procedure verified against order and with patient: Yes Skin prepped with 70% isopropyl alcohol Yes Area treated: Full face and Bilateral ears Number of Levulan sticks applied: 2 Lot # [id number] 03/2027 Time before Blue Light exposure: 15 minutes Area treated: Full face and Bilateral ears Pt exposed to light for 30 minutes Patient reaction during treatment: None, patient tolerated procedure well. Patient reaction after treatment: None, patient tolerated procedure well. Aftercare instructions given. Patient verbalizes understanding. Follow up with José Sheikh CNP . Ramila Anna RN [facility] 12[facility] History of Present illness Narrative* Marifer Ricks RN - 04/12/2025 10:12 AM EDT PHOTODYNAMIC THERAPY April 12, 2025 Dx: Actinic Keratosis Pt ID verified with patient: Yes Procedure verified against order and with patient: Yes Skin prepped with 70% isopropyl alcohol Yes Area treated: Full face and Bilateral ears Number of Levulan sticks applied: 2 Lot # [id number] 03/2027 Time before Blue Light exposure: 15 minutes Area treated: Full face and Bilateral ears Pt exposed to light for 30 minutes Patient reaction during treatment: None, patient tolerated procedure well. Patient reaction after treatment: None, patient tolerated procedure well. Aftercare instructions given. Patient verbalizes understanding. Follow up with José Sheikh CNP . Ramila Anna RN April 12, 2025 documented in this encounterH[facility]04-08-[facility] History of Present illness Narrative* Hortencia [...] 400 Units by mouth once daily. vit A,C,O-Bpqg-Urjwxl (PRESERVISION AREDS) 7,160 unit- 113 mg-100 unit [...] discussed with the Patient or Patient's Authorized Guard Immigration. Asapplicable, any other physician, advance practice provider, medical student, or other health professional student that will be observing or involved in the sensitive examination for educational or training purposes was discussed with the Patient or Authorized Guard Immigration. The Patient or Authorized Guard Immigration has agreed to proceed with the sensitive [...] medication Hortencia Gerard PA-C documented in this encounterHocking Valley Community Hospital04-08-2025 NoteHNO ID: [id number] Author: HORTENCIA GERARD PA-C Service: ? Author Type: Physician Last Model Department Supervisor Type: Progress Notes Filed: 03/06/2025 12:29 Note [...] 400 Units by mouth once daily. vit A,C,W-Ajsy-Zerwtt (PRESERVISION AREDS) 7,160 unit- 113 mg-100 unit [...] GENERAL:Wnl nutrition, no d (more content not included)...[facility]04-03-2025 Instructions* Patient Instructions* José Sheikh APRN.TEACHER [employer] - 03/01/2025 7:14 AM EDT CARE FOR [...] are healing, please send your provider a Unblab message or call . documented in this encounterHocking Valley Community Hospital04-03-2025 NoteHNO ID: [id number] Author: JOSÉ SHEIKH APRN.CNP Service: ? Author [...] forearm Intake information obtained by EVELYN Adler APRN.CNPBethesda North Hospital04-03-2025 History of Present illness Narrative* José [...] by EVELYN Adler APRN.CNP documented in this encounterHocking Valley [facility] Hospital03-06-2025 History of Present illness Narrative* José [...] Past Histories independently gathered by the clinical support associate and the remaining scribed note accurately describes my personal service to the patient. José Sheikh APRN.CNP documented in this encounterHocking Valley Community Hospital03-06-2025 NoteHNO ID: [id number] Author: JOSÉ SHEIKH APRN.CNP Service: ? Author [...] Past Histories independently gathered by the clinical support associate and the remaining scribed note accurately describes my personal service to the patient. José Sheikh APRN.SHARONBethesda North Hospital03-06-2025 Instructions* Patient Instructions* Tawny Bradford LPN [...] often helpful.Additional information can be obtained at: [email or web address] 2. In many cases, skin cancer can [...] your health care provider. documented in this encounterHocking Valley [facility] Hospital02-17-2025 Evaluation note* Diagnosis Onset Date Resolution Status Admit Date Crohn disease chronic January 152024 8:09am Diarrhea chronic January 15, 2025 8:09am Hyperlipidemia chronic December 302024 9:26am Hypertension chronic December 9:26am Obesity chronic January 17, 2025 9:26am Type 2 diabetes mellitus chronic January 17, 2025 9:26am [facility] Work Phone: 1(998) 395-936501-28-2025 Evaluation note* Diagnosis Onset Date Resolution Status [...] diabetes mellitus chronic January 17, 2025 9:26am [facility] Work Phone: 1(564) 313-877101-23-2025 NoteHNO ID: [id number] Author: JOSE RAMON MEDINA MD Service: ? Author Type: Physician Type: Progress Notes Filed: 12/22/2024 17:30 Note Text: GENERAL SURGERY Clinic Follow-up NOTE Patient name: Raya Mcnair Date of : 1940 PRESENTING COMPLAIN: follow up post WLE of left shoulder lesion HISTORY OF PRESENT ILLNESS: Raya Mcnair is a 84 year old male SCC in situ (right anabaptist 2022), BCC (left mandible 2019), SCC (lower [...] 84 year old male SCC insitu (right anabaptist 2022), BCC (left mandible 2019), SCC (lower [...] our clinic for any issues or concerns. [facility]01-23-2025 History of Present illness Narrative* Jose Ramon Medina MD - 12/21/2024 10:59 AM EST Images from the original note were not included. GENERAL SURGERY Clinic Follow-up NOTE Patient name: Raya Mcnair Date of : 1940 PRESENTING COMPLAIN: follow up post WLE of left shoulder lesion HISTORY OF PRESENT ILLNESS: Raya Mcnair is a 84 year old male SCC in situ (right anabaptist 2022), BCC (left mandible 2019), SCC (lower [...] 84 year old male SCC insitu (right anabaptist 2022), BCC (left mandible 2019), SCC(lower lip [...] No Does patient want to see a Aerodynamics Professor? No (yes to any of above refer patient to schedulers for dietitian appointment) ) Does patient have any new or increased numbness or tingling of extremities? No Is patient interested in fertility information? No Does patient need any prescription refills? No Does patient have an advanced directive in place? Yes, copies are in [employer] Electronically Signed By: Pancho Vazquez MA documented in this encounterHocking Valley Community Hospital01-23-2025 NoteHNO ID: [id number] Author: JOSE RAMON MEDINA MD Service: ? Author Type: Physician Type: Progress Notes Filed: 12/22/2024 17:30 Note Text: Additional intake questions: Has the patient had fever, nausea, vomiting, diarrhea, constipation, fatigue for > 1 week? No Does the patient have a decreased appetite? No Does patient want to see a Aerodynamics Professor? No (yes to any of above refer patient to schedulers for dietitian appointment) ) Does patient have any new or increased numbness or tingling of extremities? No Is patient interested in fertility information? No Does patient need any prescription refills? No Does patient have an advanced directive in place? Yes, copies are in [employer] Electronically Signed By: Pancho Vazquez [facility]01-03-2025 Telephone encounter Note* Telephone Encounter - Marifer Romano RN - 12/01/2024 4:34 PM EST Faxed over path report and op report [facility] Work Phone: 1(955) 313-371801-03-2025 Miscellaneous Notes* Telephone Encounter - Marifer Romano RN - 12/01/2024 4:34 PM EST Faxed over path report and op report * Telephone Encounter - Don Carranza - 12/01/2024 1:31 PM EST Jane from pt's PCP's office Dr. Raphael is requesting pt's Pathology results faxed to: [phone]/ATTN: Krista Contact info: [phone] documented in this encounterHocking Valley Community Hospital01-03-2025 Telephone encounter Note * Telephone Encounter - Don Carranza - 12/01/2024 1:31 PM EST Jane from pt's PCP's office Dr. Raphael is requesting pt's Pathology results faxed to: [phone]/ATTN: Krista Contact info: [phone] [facility]12-30-2024 Note* Discharge Instr - Nursing - [...] questions or concerns during business hours call [phone] or after hours (after 5 pm or on the weekend) call [phone] and ask for the general surgery resident / fellow rent control office manager for further instructions. If you have increasing [...] pain, shortness of breath or difficulty breathing [facility]12-30-2024 Miscellaneous Notes* Discharge Instr - Nursing [...] questions or concerns during business hours call [phone] or after hours (after 5 pm or on the weekend) call [phone] and ask for the general surgery resident / fellow rent control office manager for further instructions. If you have increasing [...] breath or difficulty breathing documented in this encounterHocking Valley Community Hospital12-30-2024 Surgery Surgical operation note* Operative Report - Jose Ramon Medina MD - 11/27/2024 12:09 PM EST OPERATIVE/PROCEDURE REPORT LOG ID: [id number] SURGERY/PROCEDURE DATE: 11/27/2024 INCISION/PROCEDURE START TIME: 12:22 PM INCISION CLOSE/PROCEDURE END TIME: 12:33 PM SURGEON(S)/PROCEDURALIST(S) AND COAT OPERATOR(S): Surgeons and Role: * Jose Ramon Medina [...] DATE: November 27, 2024 TIME: 2:55 PM [facility] Work Phone: 1([phone]) 212-392212-30-2024 Surgical operation note* Operative Report - Jose Ramon Medina MD - 11/27/2024 12:09 PM EST OPERATIVE/PROCEDURE REPORT LOG ID: [id number] SURGERY/PROCEDURE DATE: 11/27/2024 INCISION/PROCEDURE START TIME: 12:22 PM INCISION CLOSE/PROCEDURE END TIME: 12:33 PM SURGEON(S)/PROCEDURALIST(S) AND COAT OPERATOR(S): Surgeons and Role: * Jose Ramon Medina [...] 2024 TIME: 2:55 PM documented in this encounterHocking Valley Community Hospital12-19-2024 NoteHNO ID: [id number] Author: JOSE RAMON MEDINA MD Service: ? 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 No (yes to any of above refer patient to schedulers for dietitian appointment) ) Does patient have any new or increased numbness or tingling of extremities? No Is patient interested in fertility information? No Does patient need any prescription refills? No Does patient have an advanced directive in place? Yes, copies are in [employer] documented in this encounterHocking Valley Community Hospital12-19-2024 NoteHNO ID: [id number] Author: PANCHO VAZQUEZ MA Service: ? Author Type: Reefer Engineer Type: Progress Notes Filed: 11/16/2024 16:50 Note Text: Additional intake questions: Has the patient had fever, nausea, vomiting, diarrhea, constipation, fatigue for > 1 week? No Does the patient have a decreased appetite? No Does patient want to see a Aerodynamics Professor? No (yes to any of above refer patient to schedulers for dietitian appointment) ) Does patient have any new or increased numbness or tingling of extremities? No Is patient interested in fertility information? No Does patient need any prescription refills? No Does patient have an advanced directive in place? Yes, copies are in [employer] Electronically Signed By: Pancho Vazquez [facility]12-16-2024 Telephone encounter Note* Telephone Encounter - Kulwinder Davidson RN - 11/13/2024 10:18 AM EST Reached out to general surgery nurse transitional care manager and [facility] tessa to establish an appointment with Dr. Medina for a surgical consult for a WLE and SLNB. Patient did discuss the results with the referring provider. [facility]12-16-[facility]24 Miscellaneous Notes* Telephone Encounter - Kulwinder Davidson RN - 11/13/2024 10:18 AM EST Reached out to general surgery nurse transitional care manager and Lucero zarate to establish an appointment with Dr. Medina for a surgical consult for a WLE and SLNB. Patient did discuss the results with the referring provider. * Telephone Encounter - Corrie Stone PA-C - 11/09/2024 6:04 PM EST LVMTCB * Telephone Encounter - oCrrie Stone PA-C - 11/09/2024 6:00 PM EST [...] been determined by the performing laboratory within [facility] Pathology and Laboratory Medicine Department ([facility], [facility], [facility], [facility], [facility],or [facility]) in a [...] you, Corrie Stone PA-C documented in this encounterHock[facility]12[facility] Telephone encounter Note * Telephone Encounter - Corrie Stone PA-C - 11/09/2024 6:04 PM EST LVMTCB [facility]12-12-[facility] Telephone encounter Note* Telephone Encounter - [...] been determined by the performing laboratory within [facility] [place] [facility] ([facility], [facility], 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 vit A,C,F-Wrxv-Bpsgjt (PRESERVISION AREDS) 7,160 unit- 113 mg-100 unit [...] discussed with the Patient or Patient's Authorized Guard Immigration. Asapplicable, any other physician, advance practice provider, medical student, or other health professional student that will be observing or involved in the sensitive examination for educational or training purposes was discussed with the Patient or Authorized Guard Immigration. The Patient or Authorized Guard Immigration has agreed to proceed with the sensitive [...] (4), Left Forearm - Posterior, Left Superior [place] (2), Neck - Posterior, Right Cheek, Right Forearm - Posterior (2), Right Superior [place] (2), Right Muslim (5) Erythematous papule(s) with gritty scale Right [...] (4), Left Forearm - Posterior, Left Superior [place] (2), Neck -Posterior, Right Cheek, Right Forearm - Posterior (2), Right Superior [place] (2), Right Muslim (5) Complexity: simple Destruction method: cryotherapy Informed [...] Procedure: shave Informed Consent Consent Obtained: Verbal [place] Protocol A moment to CARE was completed [...] Past Histories independently gathered by the clinical support associate and the remaining scribed note accurately describes my personal service to the patient. Corrie Stone PA-C November 02, 2024 2:08 PM Medical Decision Making: Problems: Moderate: 1+ chronic illnesses with change Risk: Moderate: Moderate risk from testing/treatment Medical Decision Making Level: 4 - Moderate documented in this encounterHocking Valley [facility] Hospital12-05-2024 NoteHNO ID: [id number] Author: CORRIE STONE PA-C Service: ? 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 vit A,C,Y-Yryb-Gbjrut (PRESERVISION AREDS) 7,160 unit- 113 mg-100 unit [...] discussed with the Patient or Patient's Authorized Guard Immigration. As applicable, any other physician, advance practice provider, medical student, or other health professional student that will be observing or involved in the sensitive examination for educational or training purposes was discussed with the Patient or Authorized Guard Immigration. The Patient or Authorized Guard Immigration has agreed to proceed with the sensitive [...] (4), Left Forearm - Posterior, Left Superior [place] (2), Neck - Posterior, Right Cheek, Right Forearm - Posterior (2), Right Superior [place] (2), Rig (more content not included)...[facility]12-04-2024 Instructions* Patient Instructions* Linda Bear MA [...] are healing, please send your provider a Unblab message or call . CARE FOR YOUR [...] are healing, please send your provider a Unblab message or call . GENERAL SUN SAFETY [...] often helpful.Additional information can be obtained at: www.skincancer.org/phlq-cdhgvc-xxjxobbbyfv/early-detection 2. In many cases, skin cancer can [...] your health care provider. documented in this encounterHocking Valley [facility] Hospital11-19-2024 Telephone encounter Note * Telephone Encounter - Marifer Ricks RN - 10/17/2024 1:[address] [facility] 06/2024 [facility]11-19-[facility] Miscellaneous Notes* Telephone Encounter - Marifer Ricks RN - 10/17/2024 1:31 PM EST ELIANE 06/2024 documented in this encounterHocking Valley [facility] Hospital11-19-2024 Telephone encounter Note * Telephone Encounter - Ghazal Jorge - 10/17/2024 9:08 AM EST Attempt #1 - LVM Attempt#2 - MC Two attempts made on 10/17/24 to inform patient that their 10/17/24 appt with José Kori , has been cancelled/rescheduled. Special Instructions: NA [facility]11-19-2024 Miscellaneous Notes* Telephone Encounter - Ghazal Jorge - 10/17/2024 9:08 AM EST Attempt #1 - LVM Attempt#2 - MC Two attempts made on 10/17/24 to inform patient that their 10/17/24 appt with José Kori , has been cancelled/rescheduled. Special Instructions: NA documented in this encounterHocking Valley Community Hospital11-12-2024 NoteHNO ID: [id number] Author: HORTENCIA GERARD PA-C Service: ? Author Type: Physician Last Model Department Supervisor Type: Progress Notes Filed: 10/10/2024 08:42 Note [...] 400 Units by mouth once daily. vit A,C,Y-Xnzh-Ylayth (PRESERVISION AREDS) 7,160 unit- 113 mg-100 unit [...] back pain, and muscle (more content not included)...[facility]11-12-2024 History of Present illness Narrative* Hortencia [...] 400 Units by mouth once daily. vit A,C,F-Adau-Vhockn (PRESERVISION AREDS) 7,160 unit- 113 mg-100 unit [...] months Hortencia Gerard PA-C documented in this encounterHocking Valley Community Hospital08-27-2024 Telephone encounter Note * Telephone Encounter - Hortencia Gerard PA-C - 07/25/2024 2:38 PM EDT Patient informed of scrotal US. Patient instructed to call with any questions or concerns. [facility]08-27[facility] Miscellaneous Notes* Telephone Encounter - Hortencia Gerard PA-C - 07/25/2024 2:38 PM EDT Patient informed of scrotal US. Patient instructed to call with any questions or concerns. documented in this encounterHocking Valley Community Hospital08-22-2024 History of Present illness Narrative* Nidia [...] PATIENT PRESENTS WITH AN IMPLANTABLE OR ATTACHED DRILLING FLUIDS SPECIALIST: No RADIOLOGY DEPARTMENT: Biopsy and Ultrasound PERIPHERAL IV DATA: Not applicable SIGNED BY: Nidia Aguilar RDMS July 20, 2024 11:39 AM documented in this encounterHocking Valley Community Hospital08-19-2024 Telephone encounter Note * Telephone Encounter - Hortencia Gerard PA-C - 07/17/2024 1:28 PM EDT Patient with L scrotal skin lesion x 1 day. It is approximately the size of a pencil eraser. Denies any pain. Denies any other complaints. Patient to proceed with scrotal US. Patient instructed to call with any questions or concerns. [facility]08-19-[facility] Miscellaneous Notes* Telephone Encounter - Hortencia Gerard PA-C - 07/17/2024 1:28 PM EDT Patient with L scrotal skin lesion x 1 day. It is approximately the size of a pencil eraser. Denies any pain. Denies any other complaints. Patient to proceed with scrotal US. Patient instructed to call with any questions or concerns. documented in this encounterHocking Valley Community Hospital08-16-2024 Instructions* Patient Instructions* José Sheikh APRN.[employer] - 07/14/2024 12:16 PM EDT GENERAL SUN [...] often helpful.Additional information can be obtained at: www.skincancer.org/swpl-uvqnby-hwhebmdibjr/early-detection 2. In many cases, skin cancer can [...] are healing, please send your provider a Unblab message or call . documented in this encounterHocking Valley Community Hospital08-16-2024 History of Present illness Narrative* José Sheikh APRN.CNP - 07/14/2024 12:00 PM EDT Images from the original note were not included. Department of Dermatology Joés Sheikh APRN.CNP 07/14/2024 Last visit in Dermatology: 05/10/2024 Objective/Assessment/Plan 1. AK (actinic keratosis) (7) Left Buccal Cheek, Left Parotid Area, Left Zygomatic Area, Right Frontal Scalp, Right Parotid Area,Right Superior [place], Right Zygomatic Area Erythematous, hyperkeratotic papules CRYOTHERAPY SKIN LESION - Left Buccal Cheek, Left Parotid Area, Left Zygomatic Area, Right Frontal Scalp, Right Parotid Area, Right Superior [place], Right Zygomatic Area Complexity: simple Destruction method: [...] included: Face, ears, neck Intake: EVELYN Tang APRN.[employer] documented in this encounterHocking Valley Community Hospital06-12-2024 Instructions* Patient Instructions* Marifer Ricks RN [...] swelling and redness, you may also take azyj-xuj-admmdcf oral medications: Claritin (loratidine) 10 mg in [...] protect you from sunlight documented in this encounterHocking Valley Community Hospital06-12-2024 History of Present illness Narrative* Marifer Ricks RN - 05/10/2024 12:50 PM EDT PHOTODYNAMIC THERAPY May 10, 2024 Dx: Actinic Keratosis Pt ID verified with patient: Yes Procedure verified against order and with patient: Yes Skin prepped with 70% isopropyl alcohol Yes Area treated: Full face and Bilateral ears Number of Levulan sticks applied: 2 Lot # [id number] Exp 10/2026 Time before Blue Light exposure: 15 minutes Area treated: Full face and Bilateral ears Pt exposed to light for 30 minutes Patient reaction during treatment: None, patient tolerated procedure well. Patient reaction after treatment: None, patient tolerated procedure well. Aftercare instructions given. Patient verbalizes understanding. Follow up with José Sheikh CNP . Marifer Ricks RN documented [facility] this [facility]05-10-2024 History of Present illness Narrative* Ralph Felipe MD - 04/07/2024 12:00 PM EDT pt no show Ralph Felipe MD documented in this encounterHocking Valley Community Hospital05-10-2024 History of Present illness Narrative* José Sheikh APRN.[employer] - 04/07/2024 10:48 AM EDT Images from the original note were not included. Department of Dermatology José Sheikh APRN.[employer] Last visit in Dermatology: 02/11/2024 Objective/Assessment/Plan 1. [...] patient and discussed the case with the PA/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 trainee. I agree with the assessment and plan as documented in the PA/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's note. José Sheikh APRN.CNP documented in this encounterHocking Valley [facility] Hospital03-15-2024 Instructions* Patient Instructions* José Sheikh APRN.CNP [...] message or call . documented in this encounterHocking Valley Community Hospital03-15-2024 History of Present illness Narrative* José [...] Ear, Left Parotid Area, Right Ear, Right Muslim Erythematous, hyperkeratotic papules CRYOTHERAPY SKIN LESION - Left Anterior Neck, Left Ear, Left Parotid Area, Right Ear, Right Muslim Complexity: simple Destruction method: cryotherapy Informed consent: [...] presents with: Rash Subjective and Objective HPI: aRya Mcnair is a 84 year old male [...] left thigh Intake completed by EVELYN Tang APRN.[employer] documented in this encounterHocking Valley [facility] Hospital12-28-2023 History of Present illness Narrative* Karey [...] 25, 2023 8:36 AM documented in this encounterHocking Valley [facility] Hospital11-29-2023 History of Present illness Narrative* Gracia Washington MD - 10/27/2023 7:30 AM EST MOHS MICROGRAPHIC OPERATIVE REPORT SERVICE DATE: 10/27/2023 SERVICE TIME: 729 LOCATION: [place] [address] REFERRING PROVIDER: José Sheikh [address] [place] [address] SURGEON: Dr. Gracia Washington FELLOW: Dr. Liss [...] his BP.. Advised him to bring a local delivery truck driver with him to his next visit. Gracia Washington MD documented in this encounterHocking Valley Community Hospital11-17-2023 Miscellaneous Notes* Telephone Encounter - Indiana Santos RN - 10/15/2023 1:05 PM EST Triaged in a separate telephone encounter and routed to mohs scheduling. documented in this encounterHocking Valley Community Hospital11-17-2023 Miscellaneous Notes* Telephone Encounter - Indiana [...] Other location (1 points) A. Skin, right anabaptist, shave biopsy: - Squamous cell carcinoma in [...] *Photos in Get Images documented in this encounterHocking Valley Community Hospital11-08-2023 History of Present illness Narrative* Gracia Washington MD - 10/06/2023 3:15 PM EST DERMATOLOGY CONSULT FOR MOHS SERVICE DATE: 10/06/2023 PRIMARY CARE PHYSICIAN: Dao Raphael Jr, MD REFERRING PROVIDER: José Sheikh [address] [place] [address] Consultation requested for an opinion regarding the evaluation and treatment of skin cancer. My final impression and recommendations will be communicated back to the requesting physician by way of the shared medical record or letter via US mail. SUBJECTIVE CHIEF COMPLAINT: SCC HISTORY OF PRESENT ILLNESS BIOPSY INFORMATION: 1. 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 Report Number: Inside Pathology [id number] Date Performed: 09/17/2023 Performed By: [facility] Provider Past Treatment: No Past Treatment Tumor Type: Primary Present For: 1 month(s) Signs & Symptoms: None PAST DERM HISTORY: BCC Non-Melanoma Skin Cancer History of [facility]s [facility] Surgeon FAMILY HISTORY: No History of [...] Units by mouth once daily.^Disp: ^Rfl: vit A,C,K-Bnvj-Ptoxgp (PRESERVISION AREDS) 7,160 unit- 113 mg-100 unit [...] with VKA drugs, such as warfarin, the [place] [employer] 2012 Guideline recommends [...] Chest 2012, 141:7S-47S Magdaleno RA et al. [facility] 2017, 70: 252-289 MEDICAL CONDITIONS: Diabetes Mellitus, Hypertension IMPLANTED DEVICES: None TRANSPLANT PATIENT: No OBJECTIVE REVIEW OF SYSTEMS: Patient denies fatigue, fever, weight loss, shortness of breath and chest pain. ASSESSMENT PHYSICAL EXAM There were no vitals taken for this visit. GENERAL: Well developed, well nourished. No acute distress. Pleasant and cooperative. No Fatigue ormalaise. SKIN: Right anabaptist with a well healed scar and scattered [...] 7:23 AM PAGER/CONTACT #: documented in this encounterHocking Valley Community Hospital10-24-2023 Miscellaneous Notes* Telephone Encounter - Viridiana [...] Other location (1 points) A. 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 Recommended treatment: mohs Recommend Follow up Full Body Skin Check in 6 months. Thank you, José Sheikh APRN.[employer] documented in this encounterHocking Valley Community Hospital10-24-2023 Telephone encounter Note * Telephone Encounter - Viridiana Yarbrough RN - 09/21/2023 1:28 PM EDT Sent to scheduling to set up in person consult per Dr. Simon. Viridiana Yarbrough RN September 21, 2023 1:28 PM [facility]10-24-[facility]23 Telephone encounter Note* Telephone Encounter - Christiano Simon MD - 09/21/2023 12:29 PM EDT Has 2 adjacent papules, only one was sampled In person consult needed - likely for an additional biopsy and treatment discussion Any Mohs surgeon / RSG is fine - 15 minute visit Christiano Simon MD [facility] Work Phone: [phone] Telephone encounter Note* Telephone Encounter - Piper [...] Other location (1 points) A. 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 Recommended treatment: mohs Recommend Follow up Full Body Skin Check in 6 months. Thank you, José Sheikh APRN.[employer] [facility]08-03-2023 Miscellaneous Notes* Telephone Encounter - Ramila Anna RN - 07/01/2023 3:52 PM EDT Called and clarified Ramila Anna RN July 01, 2023 3:52 PM * Telephone Encounter - Debby Avilez - 07/01/2023 3:47 PM EDT [facility] pharmacy called and needs clarification on the triamcinolone. Please advise documented in this encounterHocking Valley Community Hospital08-01-2023 Instructions* Patient Instructions* Fern Machado - [...] are healing, please send your provider a Unblab message or call . If you have [...] faster with moisture therapy. documented in this encounterHocking Valley Community Hospital08-01-2023 History of Present illness Narrative* José Sheikh APRN.[employer] - 06/29/2023 3:54 PM EDT Images from the original note were not included. Department of Dermatology José Sheikh APRN.[employer] 06/29/2023 Last visit in Dermatology: 05/10/2023 Objective/Assessment/Plan [...] Bear Ma 06/29/23 3:58 PM Marly Crain APRN.[employer] (training) UNIVERSAL PROTOCOL / SAFETY CHECKLIST Procedure [...] patient and discussed the case with the PA/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 trainee. I agree with the assessment and plan as documented in the PA/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's note. José Sheikh APRN.SAHRON documented in this encounterHocking Valley Community Hospital07-10-2023 Miscellaneous Notes* Telephone Encounter - Lakshmi [...] Keep appointment with dermatology. documented in this encounterHocking Valley Community Hospital07-08-2023 History of Present illness Narrative* Sherlyn Monte PA-C - 06/05/2023 2:47 PM EDT Images from the original note were not included. This note was created using [employer] Rate Medical Transportationriter. Subjective Raya Mcnair is a 83 year [...] 400 Units by mouth once daily. vit A,C,K-Weyr-Ghshkz (PRESERVISION AREDS) 7,160 unit- 113 mg-100 unit [...] improved on doxycycline and triamcinolone when his robotic welder had prescribed this initially. He has been [...] SCREEN Sherlyn Monte PA-C documented in this encounterHocking Valley Community Hospital05-15-2023 Miscellaneous Notes* Telephone Encounter - Hortencia Gerard PA-C - 04/12/2023 4:10 PM EDT Patient informed of positive urine culture. Patient to start cipro. Patient instructed to call withany questions or concerns. documented in this encounterHocking Valley Community Hospital05-12-2023 Miscellaneous Notes* Addendum Note - Hortencia Gerard PA-C - 04/09/2023 2:35 PM EDTAddended by: HORTENCIA GERARD on: 04/09/2023 02:35 PM Modules accepted: Orders documented in this encounterHocking Valley Community Hospital05-12-2023 History of Present illness Narrative* Ralph [...] 400 Units by mouth once daily. vit A,C,Q-Twbc-Zamqjz (PRESERVISION AREDS) 7,160 unit- 113 mg-100 unit [...] year Ralph Felipe MD documented in this encounterHocking Valley Community Hospital05-02-2023 Instructions* Patient Instructions* José Sheikh APRN.[employer] - 03/30/2023 4:44 PM EDT SKIN CARE [...] are healing, please send your provider a Unblab message or call . documented in this encounterHocking Valley Community Hospital05-02-2023 History of Present illness Narrative* José [...] (5) Left Preauricular Area, Right Forehead, Right Muslim (3) Red papules with gritty adherent scale. CRYOTHERAPY SKIN LESION - Left Preauricular Area, Right Forehead, Right Muslim (3) Complexity: simple Destruction method: cryotherapy Informed [...] Bear Ma 03/30/23 4:19 PM José Sheikh APRN.[employer] documented in this encounterHocking Valley [facility] Hospital03-23-2023 Instructions* Patient Instructions* José Sheikh APRN.[employer] - 02/18/2023 1:17 PM EDT SKIN CARE [...] are healing, please send your provider a Unblab message or call . documented in this encounterHocking Valley [facility] Hospital03-23-2023 History of Present illness Narrative* José Sheikh APRN.CNP - 02/18/2023 1:05 PM EDT Images from the original note were not included. Department of Dermatology José Sheikh APRN.CNP 02/18/2023 Last visit in Dermatology: 01/12/2023 Objective/Assessment/Plan 1. AK (actinic keratosis) (5) Left Forehead, Left Parotid Area, Right Forehead, Right Parotid Area, Right Muslim Red papules with gritty adherent scale. CRYOTHERAPY SKIN LESION - Left Forehead, Left Parotid Area, Right Forehead, Right Parotid Area, Right Muslim Complexity: simple Destruction method: cryotherapy Informed consent: [...] PM José Sheikh APRN.SHARON documented in this encounterHocking Valley Community Hospital02-17-2023 Miscellaneous Notes* Telephone Encounter - Marifer [...] you, José Sheikh APRN.CNP documented in this encounterHocking Valley Community Hospital02-14-2023 History of Present illness Narrative* José Sheikh APRN.[employer] - 01/12/2023 10:15 AM EST Images from the original note were not included. Department of Dermatology José Sheikh APRN.[employer] 01/12/2023 Last visit in Dermatology: 10/12/2022 Objective/Assessment/Plan [...] of particular concern?: Yes Lesion(s): Location(s): left anabaptist, chest and left leg Duration: few months [...] Machado acting as scribe for José Sheikh APRN.[employer]. January 12, 2023 10:26 AM Intake completed [...] Past Histories independently gathered by the clinical support associate and the remaining scribed note accurately describes my personal service to the patient. José Sheikh APRN.SHARON documented in this encounterHocking Valley Community Hospital02-14-2023 Instructions* Patient Instructions* Fern Machado - [...] often helpful.Additional information can be obtained at: www.skincancer.org/hejn-snqnux-jzcpmpsagws/early-detection 2. In many cases, skin cancer can [...] are healing, please send your provider a Unblab message or call . CARE FOR YOUR [...] are healing, please send your provider a Unblab message or call . documented in this encounterHocking Valley [facility] Hospital11-14-2022 History of Present illness Narrative* José Sheikh APRN.SHARON - 10/12/2022 10:03 AM EST Images from the original note were not included. Department of Dermatology José Sheikh APRN.SHARON 10/12/2022 Last visit in Dermatology: 09/09/2022 Objective/Assessment/Plan 1. AK (actinic keratosis) (2) Right Ear, Right Muslim 2 small erythematous, hyperkeratotic papules Patient to apply efudex to 2 affected areas twice daily x 2 weeks. R/b/a for the medication(s) including possible side effects discussed and reviewed with patient. Related Medications Fluorouracil (EFUDEX) 5 % cream Apply to affected area twice daily for 14 days. For the ear and right anabaptist Follow-up as noted below or as needed. [...] ears, scalp Intake completed by EVELYN Adler APRN.TEACHER [employer]S documented in this encounterHocking Valley Community Hospital08-04-2022 Instructions* Patient Instructions* Carri Sinha - [...] often helpful.Additional information can be obtained at: www.skincancer.org/hmag-fgatql-lcpbwdvehke/early-detection 2. In many cases, skin cancer can [...] your health care provider. documented in this encounterHocking Valley Community Hospital08-04-2022 History of Present illness Narrative* José Sheikh APRN.CNP - 07/02/2022 2:15 PM EDT Images from the original note were not included. Department of Dermatology José Sheikh APRN.CNP 07/02/2022 Last visit in Dermatology: 12/29/2021 Objective/Assessment/Plan 1. AK (actinic keratosis) (13) Left Forearm - Posterior, Left Hand - Posterior, Left Muslim, Left Zygomatic Area, Right Ear (2), Right Forearm - Posterior, Right Hand - Posterior, Right Parotid Area, Right Supraorbital Region, Right Muslim, Right Zygomatic Area (2) Red papules with gritty adherent scale. Patient to have PDT scheduled for fall/winter 2021. 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 History of hypertension tipple oiler damaris Presence of stent in coronary artery Mar, 2021 chronic Hypertension chronic Obesity chronic Type 2 diabetes mellitus chr [facility] Work Phone: [phone]) 989-822705-01-2021 Evaluation note* Diagnosis Onset Date Resolution Status Essential hypertension acute Atherosclerotic heart diseas e of [place] coronary artery without angina pectoris chronic Presence of stent in coronary artery Mar, 2021 chronic Diarrhea [facility] Work Phone: 1([phone]) 880-246105-01-2021 Evaluation note* Diagnosis Onset Date Resolution Status Essential hypertension acute Presence of stent in coronary artery Mar, 2021 chronic Crohn disease chronic Diarrhea [facility] Work Phone: [phone]) 131-831805-01-2021 Evaluation note* Diagnosis Onset Date Resolution Status Crohn disease chronic Diarrhea chronic Fatigue acute Essential hypertension chron ic Presence of stent in coronary artery Mar, 2021 [facility] Work Phone: [phone]) [phone] Evaluation note* Diagnosis Onset Date Resolution Status Fatigue acute Essential hypertension chron ic Presence of stent in coronary artery Mar, 2021 [facility] Work Phone: [phone]) 629-699405-01-2021 Evaluation note* Diagnosis Onset Date Resolution Status Fatigue acute Essential hypertension chron ic Presence of stent in coronary artery Mar, 2021 chronic Crohn disease chronic Diarrhea chronic Essential hypertension chron ic Obesity chronic Type 2 diabetes mellitus [facility] Work Phone: Evaluation note* Diagnosis Onset Date Resolution Status Hypertension chronic Obesity chronic Type 2 diabetes mellitus chr onic Hypertension chronic Obesity chronic Type 2 diabetes mellitus [facility] Work Phone: Evaluation note* Diagnosis Onset Date Resolution Status Hypertension chronic Obesity chronic Type 2 diabetes mellitus [facility] Work Phone: Evaluation note* Diagnosis AK (actinic keratosis)- Primary Actinic keratosis Multiple benign nevi Benign neoplasm of skin, site unspecified Seborrheic keratosis Other seborrheic keratosis Deleon angioma Nevus, non-neoplastic History of nonmelanoma skin cancer Personal history of other malignant neoplasm of skin [facility] Diagnosis Onset Date Resolution Status Hypertension chronic Obesity chronic Type 2 diabetes mellitus chr onic Essential hypertension acute Atherosclerotic heart diseas e of [place] coronary artery without angina pectoris chronic Presence of stent in coronary artery Mar, 2021 [facility] Work Phone: Evaluation note* Diagnosis Onset Date Resolution Status Hypertension chronic Obesity chronic Type 2 diabetes mellitus chr onic Essential hypertension acute Atherosclerotic heart diseas e of [place] coronary artery without angina pectoris chronic Presence of stent in coronary artery Mar, 2021 chronic Diarrhea acute [facility] Work Phone: Evaluation note* Diagnosis AK (actinic keratosis)- Primary Actinic keratosis [facility] Diagnosis Onset Date Resolution Status Diarrhea acute Crohn disease chronic Hyperlipidemia chronic Obesity chronic Type 2 diabetes mellitus chr onic [facility] Work Phone: Evaluation note* Diagnosis Neoplasm of unspecified behavior of bone, soft tissue, and skin- Primary Actinic keratosis Seborrheic keratosis Other seborrheic keratosis Deleon angioma Nevus, non-neoplastic Lentigines Other dyschromia [facility] Diagnosis AK (actinic keratosis)- Primary Actinic keratosis History of actinic keratosis Personal history of diseases of skin and subcutaneous tissue [facility] Diagnosis Onset Date Resolution Status Crohn disease chronic Hyperlipidemia chronic Obesity chronic Type 2 diabetes mellitus chr onic Essential hypertension acute Presence of stent in coronary artery Mar, 2021 [facility] Work Phone: Evaluation note* Diagnosis Inflamed seborrheic keratosis- Primary AK (actinic keratosis) Actinic keratosis [facility] Diagnosis Nocturia- Primary Acute cystitis with hematuria Acute cystitis OAB (overactive bladder) Hypertonicity of bladder Urinary frequency BPH with obstruction/lower urinary tract symptoms Hypertrophy of prostate with urinary obstruction and other lower urinary tract symptoms (LUTS) [facility] Diagnosis Rash- Primary Rash and other nonspecific skin eruption [facility] Diagnosis Onset Date Resolution Status BMI 30.0-30.9,adult acute Coronary arteriosclerosis ac [place] DM w/o complication type II acute Drug-induced skin rash acute Skin Abnormalities noneactiv e Benign essential hypertension noneactive [facility] Work Phone: evaluation note* Diagnosis Rash and nonspecific skin eruption- Primary Rash and other nonspecific skin eruption [facility] Diagnosis Onset Date Resolution Status Essential hypertension chron ic Hyperlipidemia chronic Obesity chronic Type 2 diabetes mellitus chr onic Crohn disease chronic Diarrhea chronic [facility] Work Phone: Evaluation note* Diagnosis Onset Date Resolution Status Benign essential hypertension noneactive Coronary arteriosclerosis ac [place] DM w/o complication type II acute Hypercholesteremia acute Hypertension acute Coronary arteriosclerosis ac [place] DM w/o complication type II acute Drug-induced skin rash acute Hypercholesteremia acute Hypertension acute [facility] Work Phone: evaluation note* Diagnosis 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 [facility] Diagnosis Onset Date Resolution Status Coronary arteriosclerosis ac [place] DM w/o complication type II acute Hypercholesteremia acute Hypertension acute Coronary arteriosclerosis ac [place] DM w/o complication type II acute Drug-induced skin rash acute Hypercholesteremia acute Hypertension acute Coronary arteriosclerosis ac [place] DM w/o complication type II acute Hypercholesteremia acute Hypertension acute [facility] Work Phone: evaluation note* Diagnosis Hypertension, unspecified type- Primary [facility] Diagnosis Onset Date Resolution Status Celiac disease acute Coronary arteriosclerosis ac [place] DM w/o complication type II acute Hypercholesteremia acute Hypertension acute [facility] Examination in Adult noneactive [facility] Work Phone: evaluation note* Diagnosis Nummular dermatitis- Primary Contact dermatitis and other eczema, due to unspecified cause Inflamed seborrheic keratosis AK (actinic keratosis) Actinic keratosis [facility] Diagnosis Onset Date Resolution Status Crohn disease chronic Diarrhea chronic Essential hypertension chron ic Obesity chronic Type 2 diabetes mellitus [facility] Work Phone: Evaluation note* Diagnosis AK (actinic keratosis)- Primary Actinic keratosis Nummular eczema Contact dermatitis and other eczema, due to unspecified cause [facility] Diagnosis AK (actinic keratosis)- Primary Actinic keratosis [facility] Diagnosis NO SHOW- Primary [facility]* Diagnosis Scrotal skin lesion- Primary Unspecified disorder of male genital organs [facility]* Diagnosis Scrotal skin lesion Unspecified disorder of male genital organs [facility] Diagnosis Pruritus Unspecified pruritic disorder [facility]* Diagnosis Acute cough documented in this encounter [facility] note* Diagnosis Onset Date Resolution Status Admit Date Celiac disease acute August 23, 2024 9:39am Coronary arteriosclerosis acute August 23, 2024 9:39am DM w/o complication type II acute August 23, 2024 9:39am Hypercholesteremia acute 2023 9:39am Hypertension acute August 232023 9:39am Body mass index (BMI) of 34. 0 to 34.9 in adult noneactive August 23, 2024 9:39am [facility] Work Phone: evaluation note* Diagnosis 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- Primary [facility]* Diagnosis BPH associated with nocturia- Primary Hypertrophy of prostate with urinary obstruction and other lower urinary tract symptoms (LUTS) Urinary frequency Urgency of urination Slowing of urinary stream Impotence Impotence of organic origin [facility]* Diagnosis Pruritus Unspecified pruritic disorder documented in this encounter [facility] note* Diagnosis Skin exam, screening for cancer- [...] tissue, and skin [facility]* Diagnosis Onset Date Resolution Status Admit Date Coronary arteriosclerosis acute May 24, 2024 9:52am DM w/o complication type II acute May 24, 2024 9:52am Hypercholesteremia acute April 302023 9:52am Hypertension acute May 24 9:52am Body mass index (BMI) of 34. 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) [facility]* Diagnosis Onset Date Resolution Status Admit Date Celiac disease acute December 222024 9:37am Coronary arteriosclerosis acute December 22, 2024 9:37am Crohn's disease acute November 302024 9:37am DM w/o complication type II acute December 22, 2024 9:37am Hypercholesteremia acute 2024 9:37am Hypertension acute November 9:37am [facility] Work Phone: evaluation note* Diagnosis Malignant melanoma of skin of trunk, 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, except scrotum [facility] Diagnosis AK (actinic keratosis)- Primary [...] of the skin [facility] Diagnosis BPH with urinary obstruction- Primary Hypertrophy of prostate with urinary obstruction and other lower urinary tract symptoms (LUTS) [facility] Diagnosis Neoplasm of unspecified behavior of bone, soft tissue, and skin- Primary [facility]* Diagnosis BPH associated with nocturia- Primary Hypertrophy of prostate with urinary obstruction and other lower urinary tract symptoms (LUTS) Urinary frequency [facility]* Diagnosis AK (actinic keratosis)- Primary Actinic keratosis [facility] Diagnosis Onset Date Resolution Status Admit Date Coronary arteriosclerosis acute April 18, 2025 9:44am Crohn's disease acute April 18, 2025 9:44am DM w/o complication type II acute April 18, 2025 9:44am Hypercholesteremia acute April 182024 9:44am Hypertension acute April 18 9:44am Encounter for annual health examination noneactive April 18, 2025 9:44am [facility] Work Phone: evaluation note* Diagnosis Neoplasm of [...] of the skin [facility] noteNo assessment information [facility] Work [facility]: Evaluation note* Diagnosis Fever, unspecified fever cause- Primary URI, acute Acute upper respiratory infections of unspecified site Dyspnea, unspecified type Chest pain, unspecified type [facility]* Diagnosis Onset Date Resolution Status Admit Date Atrial fibrillation, new onset acute June 26, 2025 9:27am Fatigue acute June 26 9:27am Crohn disease chronic June 26, 2025 9:27am [facility] Work Phone: Evaluation note* Diagnosis Paroxysmal atrial fibrillation (HCC) Atrial fibrillation 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 [facility]* Diagnosis 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 [facility]* Diagnosis AK (actinic keratosis)- Primary Actinic keratosis Multiple benign nevi Benign neoplasm of skin, site unspecified Seborrheic keratosis Other seborrheic keratosis Lentigines Other dyschromia Deleon angioma Nevus, non-neoplastic Personal history of malignant melanoma of skin History of nonmelanoma skin cancer Personal history of other malignant neoplasm of skin Skin cancer screening Screening for malignant neoplasm of the skin documented [facility]* Diagnosis Onset Date Resolution Status Admit Date Atrial fibrillation acute Septe 2024 1:12pm Coronary arteriosclerosis acute August 06, 2025 1:12pm DM w/o complication type II acute August 06, 2025 1:12pm Hypercholesteremia acute Septem ana maría 2024 1:12pm Hypertension acute July 1:12pm [facility] Work Phone: Hospital Discharge instructions Additional Instructions You can take Tylenol for your pain and apply heat to the area. Please follow-up with your PCP, stay well hydrated, return for any worsening of symptoms.[facility] Work Phone: Hospital Discharge instructionsAdditional Instructions Your testing here is normal and is rule out heart attacks or blood clots. There is no signs of an infection or pneumonia. I recommend you trial an [id number] allergy medicine like Claritin for your postnasal drip. Follow-up with your doctor.[facility] Work Phone: Hospital Discharge instructionsAdditional Instructions [...] Locke he recommended you follow-up with the [facility] in the next week. Recommended [...] care physician for further outpatient evaluation and management.[facility] Work Phone: Reason for referral (narrative)* Diagnostic Procedure Only (Routine) - Authorized Specialty Diagnoses / Procedures Referred By Chapo steele Referred To Contact US IMAGING Diagnoses Scrotal skin lesion Procedures US SCROTUM AND CONTENTS US SCROTUM & CONTENTS Hortencia Gerard PA-C [address] [place] [address] [facility] [address] Referral ID Status Reason Start Date Expiration Date Visits Requested Visits Authorized [id number] Authorized Auto-Generat ed Referral 07/17/2024 08/16/2025 [address] [facility] for referral (narrative)No reason for referral information [facility]: Summary Purpose Family History Relationship [...] April 11, 2021 1 0:31am Power of Meteorological Aide Yes April 11, 2021 10:31am Documents on File Type Date Recorded Patient Guard Immigration Expl anation Advance Directive(s) 05/26/2019 9:42 AM Documents on File Type Date Recorded Patient Guard Immigration Expl anation Advance Directive(s) 05/26/2019 9:42 AM Advance Directive Response Recorded Date/ Time Advance Directives Yes April 03, 2021 8:42am Living Will Yes April 11, 2021 9 :31am Power of Meteorological Aide Yes April 11, 2021 9:31am Advance Directive Response Recorded Date/ Time Name of Medical Power of Meteorological Aide ? March 21, 2023 9:53am Advance Directives Yes April 03, 2021 9:42am Living Will Yes March 21, 2023 9:53am Power of Meteorological Aide Yes March 21 9:53am Advance Directive Response Recorded Date/ Time Advance Directives Yes April 03, 2021 9:42am Living Will Yes March 21, 2023 9:53am Power of Meteorological Aide Yes March 21 9:53am Advance Directive Response Recorded Date/ Time Advance Directives Yes April 03, 2021 8:42am Living Will Yes March 21, 2023 8:53am Power of Meteorological Aide Yes March 21 8:53am Advance Directive Response Recorded Date/ Time Living Will Yes March 21, 2023 9:53am Do you have a Healthcare Power of Meteorological Aide? Yes March 21, 2023 9:53am Living Will Yes October 29 1:50am Do you have a Healthcare Power of Meteorological Aide? Yes October 29, 2024 1:50am Advance Directives Yes April 03, 2021 9:42am Advance Directive Response Recorded Date/ Time Health Care Proxy Yes April 18, 2025 11:36am Advance Directive Response Recorded Date/ Time Living Will Yes March 21, 2023 9:53am Do you have a Healthcare Power of Meteorological Aide? Yes March 21, 2023 9:53am Advance Directives Yes April 03, 2021 9:42am Advance Directive Response Recorded Date/ Time Advance Directives Yes April 03, 2021 9:42am Advance Directive Response Recorded Date/ Time Do you have a Healthcare Power of Meteorological Aide? Yes June 14, 2025 5:44pm Advance Directives Yes April 03, 2021 9:42am Advance Directive Response Recorded Date/ Time Do you have a Healthcare Power of Meteorological Aide? Yes June 19, 2025 3:59pm Do you have a Healthcare Power of Meteorological Aide? Yes June 14, 2025 5:44pm Advance Directives Yes April 03, 2021 9:42am Advance Directive Response Recorded Date/ Time Do you have a Healthcare Power of Meteorological Aide? Yes June 19, 2025 3:59pm Do you have a Healthcare Power of Meteorological Aide? Yes June 14, 2025 5:44pm Advance Directives on File Yes Augus t 2024 10:44am Living Will Yes July 23 10:44am Do you have a Healthcare Power of Meteorological Aide? 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 MAILED PHASE III MAINTENANCE SELF-PAY Reason for Visit Atherosclerotic hear t disease of [place] coronary artery without angina pectoris History of hypertension Presence of stent in coronary artery Hypertension Obesity Type 2 diabetes mellitus Chief Complaint TYPE 2 DM PHASE III MAINTENANCE SELF-PAY TYPE 2 DM PHASE III MAINTENANCE SELF-PAY TYPE 2 DM 10 m fu 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, 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, 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 MAILED PHASE III MAINTENANCE SELF-PAY TYPE 2 DM PHASE III MAINTENANCE SELF-PAY Reason for Visit Atherosclerotic hear t disease of [place] coronary artery without angina pectoris History of hypertension Presence of stent in coronary artery Hypertension Obesity Type 2 diabetes mellitus Chief Complaint TYPE 2 DM PHASE III MAINTENANCE SELF-PAY TYPE 2 DM 10 m fu 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, 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, 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 MAILED PHASE III MAINTENANCE SELF-PAY TYPE 2 DM PHASE III MAINTENANCE SELF-PAY PHASE III MAINTENANCE SELF-PAY Reason for Visit Atherosclerotic hear t disease of [place] coronary artery without angina pectoris History of hypertension Presence of stent in coronary artery Hypertension Obesity Type 2 diabetes mellitus Chief Complaint TYPE 2 DM 10 m fu 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, 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, 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 MAILED PHASE III MAINTENANCE SELF-PAY TYPE 2 DM PHASE III MAINTENANCE SELF-PAY PHASE III MAINTENANCE SELF-PAY TYPE 2 DM PHASE III MAINTENANCE SELF-PAY Reason for Visit Atherosclerotic hear t disease of [place] coronary artery without angina pectoris History of hypertension Presence of stent in coronary artery Hypertension Obesity Type 2 diabetes mellitus Chief Complaint 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, 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, 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 MA ILED PHASE III MAINTENANCE [...] mellitus Essential hypertension Atherosclerotic heart disease of [place] coronary artery without angina pectoris Presence of stent in coronary artery Chief Complaint PHASE III MA INTENANCE SELF-PAY 3 M FU PHASE III MAINTENANCE SELF-PAY PHASE III MAINTENANCE SELF-PAY 6 M FU PHASE III MAINTENANCE SELF-PAY Consult E ORDER PHASE III MAINTENANCE SELF-PAY Reason for Visit Hypertension Obesity Type 2 diabetes mellitus Essential hypertension Atherosclerotic heart disease of [place] coronary artery without angina pectoris Presence of stent in coronary artery Diarrhea Chief Complaint 3 M FU PHASE III MAINTENANCE SELF-PAY PHASE III MAINTENANCE SELF-PAY 6 M FU PHASE III MAINTENANCE SELF-PAY Consult E ORDER PHASE III MAINTENANCE SELF-PAY Reason for Visit Hypertension Obesity Type 2 diabetes mellitus Essential hypertension Atherosclerotic heart disease of [place] coronary artery without angina pectoris Presence of stent in coronary artery Diarrhea Chief Complaint PHASE III MA INTENANCE SELF-PAY 6 M FU PHASE III MAINTENANCE SELF-PAY Consult E ORDER PHASE III MAINTENANCE SELF-PAY PHASE III MAINTENANCE SELF-PAY Reason for Visit Essential hypertensi on Atherosclerotic heart disease of [place] coronary artery without angina pectoris Presence of stent in coronary artery Diarrhea Chief Complaint 6 M FU PHASE III MAINTENANCE SELF-PAY Consult E ORDER PHASE III MAINTENANCE SELF-PAY PHASE III MAINTENANCE SELF-PAY PHASE III MAINTENANCE SELF-PAY Reason for Visit Essential hypertensi on Atherosclerotic heart disease of [place] coronary artery without angina pectoris Presence of [...] Contact Diagnoses AK (actinic keratosis) José Sheikh, ALBERENE STONE [employer]TER[employer] [address] [place] [address] Referral ID Status Reason Start Date Expiration Date V isits Requested Visits Authorized [id number] Authorized 11/29/2021 01/10/2023 1 1 Specialty Diagnoses / Procedures Referred By Contac t Referred To Contact Dermatology Diagnoses 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 Procedures MOHS OFFICE/OUTPATIENT [facility] MDM 60-74 MINUTES José Sheikh, ALBERENE STONE SETTER[employer] [address] [place] [address] Referral ID Status Reason Start Date Expiration Date V isits Requested Visits Authorized [id number] Closed PCP Requested Referral 09/21/2023 09/20/2024 1 1 Additional Source Comments (unrecognized sect ion and content) No Status Records FoundNo Status Records FoundNo Status Records FoundNo Status Records FoundNo Status Records Found INFORMATION SOURCE (unrecogn ized section and content) DATE CREATED AUTHOR 05/19/2018 [facility] DATE CREATED AUTHOR AUTHOR'S ORGANIZ ATION 06/30/2019 [facility] DATE CREATED AUTHOR AUTHOR'S ORGANIZ ATION 01/29/2024 [facility] ([place] DATE CREATED AUTHOR AUTHOR'S ORGANIZ ATION 08/04/[address] [facility] DATE CREATED AUTHOR AUTHOR'S ORGANIZ ATION 08/05/2025 [facility] Goals (unrecognized section and content) [...] or prosecute any alcohol or drug abuse patient.[facility] the event this information is protected by the Federal Confidentiality of Alcohol and Drug Abuse Patient Records regulations: The Federal rules restrict any use of the information to criminally investigate or prosecute any alcohol or drug abuse patient.[facility] the event this information is protected by the Federal Confidentiality of Alcohol and Drug Abuse Patient Records regulations: The Federal rules restrict any use of the information to criminally investigate or prosecute any alcohol or drug abuse patient.[facility] the event this information is protected by the Federal Confidentiality of Alcohol and Drug Abuse Patient Records regulations: The Federal rules restrict any use of the information to criminally investigate or prosecute any alcohol or drug abuse patient.[facility] HospitalIn the event this information is protected by the Federal Confidentiality of Alcohol and Drug Abuse Patient Records regulations: The Federal rules restrict any use of the information to criminally investigate or prosecute any alcohol or drug abuse patient.[facility] HospitalIn the event this information is protected by the Federal Confidentiality of Alcohol and Drug Abuse Patient Records regulations: The Federal rules restrict any use of the information to criminally investigate or prosecute any alcohol or drug abuse patient.[facility] HospitalIn the event this information is protected by the Federal Confidentiality of Alcohol and Drug Abuse Patient Records regulations: The Federal rules restrict any use of the information to criminally investigate or prosecute any alcohol or drug abuse patient.[facility] HospitalIn the event this information is protected by the Federal Confidentiality of Alcohol and Drug Abuse Patient Records regulations: The Federal rules restrict any use of the information to criminally investigate or prosecute any alcohol or drug abuse patient.[facility] HospitalIn the event this information is protected by the Federal Confidentiality of Alcohol and Drug Abuse Patient Records regulations: The Federal rules restrict any use of the information to criminally investigate or prosecute any alcohol or drug abuse patient.[facility] HospitalIn the event this information is protected by the Federal Confidentiality of Alcohol and Drug Abuse Patient Records regulations: The Federal rules restrict any use of the information to criminally investigate or prosecute any alcohol or drug abuse patient.[facility] HospitalIn the event this information is protected by the Federal Confidentiality of Alcohol and Drug Abuse Patient Records regulations: The Federal rules restrict any use of the information to criminally investigate or prosecute any alcohol or drug abuse patient.[facility] HospitalIn the event this information is protected by the Federal Confidentiality of Alcohol and Drug Abuse Patient Records regulations: The Federal rules restrict any use of the information to criminally investigate or prosecute any alcohol or drug abuse patient.[facility] HospitalIn the event this information is protected by the Federal Confidentiality of Alcohol and Drug Abuse Patient Records regulations: The Federal rules restrict any use of the information to criminally investigate or prosecute any alcohol or drug abuse patient.[facility] HospitalIn the event this information is protected by the Federal Confidentiality of Alcohol and Drug Abuse Patient Records regulations: The Federal rules restrict any use of the information to criminally investigate or prosecute any alcohol or drug abuse patient.[facility] HospitalIn the event this information is protected by the Federal Confidentiality of Alcohol and Drug Abuse Patient Records regulations: The Federal rules restrict any use of the information to criminally investigate or prosecute any alcohol or drug abuse patient.[facility] HospitalIn the event this information is protected by the Federal Confidentiality of Alcohol and Drug Abuse Patient Records regulations: The Federal rules restrict any use of the information to criminally investigate or prosecute any alcohol or drug abuse patient.[facility] HospitalIn the event this information is protected by the Federal Confidentiality of Alcohol and Drug Abuse Patient Records regulations: The Federal rules restrict any use of the information to criminally investigate or prosecute any alcohol or drug abuse patient.[facility] HospitalIn the event this information is protected by the Federal Confidentiality of Alcohol and Drug Abuse Patient Records regulations: The Federal rules restrict any use of the information to criminally investigate or prosecute any alcohol or drug abuse patient.[facility] HospitalIn the event this information is protected by the Federal Confidentiality of Alcohol and Drug Abuse Patient Records regulations: The Federal rules restrict any use of the information to criminally investigate or prosecute any alcohol or drug abuse patient.[facility] HospitalIn the event this information is protected by the Federal Confidentiality of Alcohol and Drug Abuse Patient Records regulations: The Federal rules restrict any use of the information to criminally investigate or prosecute any alcohol or drug abuse patient.[facility] HospitalIn the event this information is protected by the Federal Confidentiality of Alcohol and Drug Abuse Patient Records regulations: The Federal rules restrict any use of the information to criminally investigate or prosecute any alcohol or drug abuse patient.[facility] HospitalIn the event this information is protected by the Federal Confidentiality of Alcohol and Drug Abuse Patient Records regulations: The Federal rules restrict any use of the information to criminally investigate or prosecute any alcohol or drug abuse patient.[facility] HospitalIn the event this information is protected by the Federal Confidentiality of Alcohol and Drug Abuse Patient Records regulations: The Federal rules restrict any use of the information to criminally investigate or prosecute any alcohol or drug abuse patient.[facility] HospitalIn the event this information is protected by the Federal Confidentiality of Alcohol and Drug Abuse Patient Records regulations: The Federal rules restrict any use of the information to criminally investigate or prosecute any alcohol or drug abuse patient.[facility] HospitalIn the event this information is protected by the Federal Confidentiality of Alcohol and Drug Abuse Patient Records regulations: The Federal rules restrict any use of the information to criminally investigate or prosecute any alcohol or drug abuse patient.[facility] HospitalIn the event this information is protected by the Federal Confidentiality of Alcohol and Drug Abuse Patient Records regulations: The Federal rules restrict any use of the information to criminally investigate or prosecute any alcohol or drug abuse patient.[facility] HospitalIn the event this information is protected by the Federal Confidentiality of Alcohol and Drug Abuse Patient Records regulations: The Federal rules restrict any use of the information to criminally investigate or prosecute any alcohol or drug abuse patient.[facility] HospitalIn the event this information is protected by the Federal Confidentiality of Alcohol and Drug Abuse Patient Records regulations: The Federal rules restrict any use of the information to criminally investigate or prosecute any alcohol or drug abuse patient.[facility] HospitalIn the event this information is protected by the Federal Confidentiality of Alcohol and Drug Abuse Patient Records regulations: The Federal rules restrict any use of the information to criminally investigate or prosecute any alcohol or drug abuse patient.[facility] HospitalIn the event this information is protected by the Federal Confidentiality of Alcohol and Drug Abuse Patient Records regulations: The Federal rules restrict any use of the information to criminally investigate or prosecute any alcohol or drug abuse patient.[facility] HospitalIn the event this information is protected by the Federal Confidentiality of Alcohol and Drug Abuse Patient Records regulations: The Federal rules restrict any use of the information to criminally investigate or prosecute any alcohol or drug abuse patient.[facility] HospitalIn the event this information is protected by the Federal Confidentiality of Alcohol and Drug Abuse Patient Records regulations: The Federal rules restrict any use of the information to criminally investigate or prosecute any alcohol or drug abuse patient.[facility] HospitalIn the event this information is protected by the Federal Confidentiality of Alcohol and Drug Abuse Patient Records regulations: The Federal rules restrict any use of the information to criminally investigate or prosecute any alcohol or drug abuse patient.[facility] HospitalIn the event this information is protected by the Federal Confidentiality of Alcohol and Drug Abuse Patient Records regulations: The Federal rules restrict any use of the information to criminally investigate or prosecute any alcohol or drug abuse patient.[facility] HospitalIn the event this information is protected by the Federal Confidentiality of Alcohol and Drug Abuse Patient Records regulations: The Federal rules restrict any use of the information to criminally investigate or prosecute any alcohol or drug abuse patient.[facility] HospitalIn the event this information is protected by the Federal Confidentiality of Alcohol and Drug Abuse Patient Records regulations: The Federal rules restrict any use of the information to criminally investigate or prosecute any alcohol or drug abuse patient.[facility] HospitalIn the event this information is protected by the Federal Confidentiality of Alcohol and Drug Abuse Patient Records regulations: The Federal rules restrict any use of the information to criminally investigate or prosecute any alcohol or drug abuse patient.[facility] HospitalIn the event this information is protected by the Federal Confidentiality of Alcohol and Drug Abuse Patient Records regulations: The Federal rules restrict any use of the information to criminally investigate or prosecute any alcohol or drug abuse patient.[facility] HospitalIn the event this information is protected by the Federal Confidentiality of Alcohol and Drug Abuse Patient Records regulations: The Federal rules restrict any use of the information to criminally investigate or prosecute any alcohol or drug abuse patient.[facility] HospitalIn the event this information is protected by the Federal Confidentiality of Alcohol and Drug Abuse Patient Records regulations: The Federal rules restrict any use of the information to criminally investigate or prosecute any alcohol or drug abuse patient.[facility] HospitalIn the event this information is protected by the Federal Confidentiality of Alcohol and Drug Abuse Patient Records regulations: The Federal rules restrict any use of the information to criminally investigate or prosecute any alcohol or drug abuse patient.[facility] HospitalIn the event this information is protected by the Federal Confidentiality of Alcohol and Drug Abuse Patient Records regulations: The Federal rules restrict any use of the information to criminally investigate or prosecute any alcohol or drug abuse patient.[facility] HospitalIn the event this information is protected by the Federal Confidentiality of Alcohol and Drug Abuse Patient Records regulations: The Federal rules restrict any use of the information to criminally investigate or prosecute any alcohol or drug abuse patient.[facility] HospitalIn the event this information is protected by the Federal Confidentiality of Alcohol and Drug Abuse Patient Records regulations: The Federal rules restrict any use of the information to criminally investigate or prosecute any alcohol or drug abuse patient.[facility] HospitalIn the event this information is protected by the Federal Confidentiality of Alcohol and Drug Abuse Patient Records regulations: The Federal rules restrict any use of the information to criminally investigate or prosecute any alcohol or drug abuse patient.[facility] HospitalIn the event this information is protected by the Federal Confidentiality of Alcohol and Drug Abuse Patient Records regulations: The Federal rules restrict any use of the information to criminally investigate or prosecute any alcohol or drug abuse patient.[facility] HospitalIn the event this information is protected by the Federal Confidentiality of Alcohol and Drug Abuse Patient Records regulations: The Federal rules restrict any use of the information to criminally investigate or prosecute any alcohol or drug abuse patient.[facility] HospitalIn the event this information is protected by the Federal Confidentiality of Alcohol and Drug Abuse Patient Records regulations: The Federal rules restrict any use of the information to criminally investigate or prosecute any alcohol or drug abuse patient.[facility] HospitalIn the event this information is protected by the Federal Confidentiality of Alcohol and Drug Abuse Patient Records regulations: The Federal rules restrict any use of the information to criminally investigate or prosecute any alcohol or drug abuse patient.[facility] HospitalIn the event this information is protected by the Federal Confidentiality of Alcohol and Drug Abuse Patient Records regulations: The Federal rules restrict any use of the information to criminally investigate or prosecute any alcohol or drug abuse patient.[facility] HospitalIn the event this information is protected by the Federal Confidentiality of Alcohol and Drug Abuse Patient Records regulations: The Federal rules restrict any use of the information to criminally investigate or prosecute any alcohol or drug abuse patient.[facility] HospitalIn the event this information is protected by the Federal Confidentiality of Alcohol and Drug Abuse Patient Records regulations: The Federal rules restrict any use of the information to criminally investigate or prosecute any alcohol or drug abuse patient.[facility] HospitalIn the event this information is protected [...] NEW HIGH MDM 60-74 MINUTES José Sheikh, ALBERENE [employer] [address] [place] [address] Referral ID Status Reason Start Date Expiration Date V isits Requested Visits Authorized [id number] Closed PCP Requested Referral 09/21/2023 09/20/2024 1 1 Reason Comments Mohs Squamous Cell Carcinoma Reason Comments Derm Problem Reason Comments Light Treatments Reason Comments Actinic Keratosis Reason Comments Radiology US Specialty Diagnoses / Procedures Referred By Contac t Referred To Contact US IMAGING Diagnoses Scrotal skin lesion Procedures US SCROTUM AND CONTENTS US SCROTUM & CONTENTS Hortencia Gerard PA-C [address] [place] [address] [place] [id number] Referral ID Status Reason Start Date Expiration Date V isits Requested Visits Authorized [id number] Closed Auto-Generate d Referral 07/17/2024 08/16/2025 1 1 Reason Comments Refill Request Reason Comments Established Patient Reason Comments Appointment Cancelled 10/17/24 - Provide r OUT Reason Comments Results Melanoma Reason Comments Patient Update Reason Comments Chest Congestion Shortness of Breath, wheeze, tightness in chest, nasal drainage, nasal congestion x 2 days Care Teams (unrecognized sec tion and content) Director Of Epidemiology Relationship Specialty Start Date End Date Dao Raphael Jr., MD PCP - General 10/19/08 Dao Raphael Jr., MD [address] [place] [address] Internal Medicine 05/09/21 Director Of Epidemiology Relationship Specialty Start Date End Date Dao Raphael Jr., MD PCP - General 10/19/08 Dao Raphael Jr., MD [address] [place] [address] Internal Medicine 05/09/21 Team Status: Inactive Member [...] Attending Provider, Referring Provider Active Out of [facility] Doctor Primary Care Provider Active Team Status: [...] Active [place] Primary Care Provider Active Director Of Epidemiology Relationship Specialty Start Date End Date Dao Raphael Jr., MD PCP - General 10/19/08 Dao Raphael Jr., MD [address] [place] [address] Internal Medicine 05/09/21 Director Of Epidemiology Relationship Specialty Start Date End Date Dao Raphael Jr., MD PCP - General 10/19/08 Dao Raphael Jr., MD [address] [place] [address] Internal Medicine 05/09/21 Team Status: Inactive Member Role Status Dates Out of [facility] Doctor Referring Provider Active Mery Dumont PA, PA Attending Provider Active [place] Primary Care Provider Active Team Status: Inactive Member Role Status Dates [place] Primary Care Provider Active Dr. Andrés Chris MD Emergency Provider Active Director Of Epidemiology Relationship Specialty Start Date End Date Dao Raphael Jr., MD PCP - General 10/19/08 Dao Raphael Jr., MD [address] [place] [address] Internal Medicine 05/09/21 Director Of Epidemiology Relationship Specialty Start Date End Date Dao Raphael Jr., MD PCP - General 10/19/08 Dao Raphael Jr., MD [address] [place] [address] Internal Medicine 05/09/21 Director Of Epidemiology Relationship Specialty Start Date End Date Dao Raphael Jr., MD PCP - General 10/19/08 Dao Raphael Jr., MD [address] [place] [address] Internal Medicine 05/09/21 Team Status: Inactive Member [...] Franz MD Attending Provider, Referring Provider Active Director Of Epidemiology Relationship Specialty Start Date End Date Dao Raphael Jr., MD PCP - General 10/19/08 Dao Raphael Jr., MD [address] [place] [address] Internal Medicine 05/09/21 Director Of Epidemiology Relationship Specialty Start Date End Date Dao Raphael Jr., MD PCP - General 10/19/08 Dao Raphael Jr., MD [address] [place] [address] Internal Medicine 05/09/21 Team Status: Active Member Role Status Dates Dao Raphael Jr, MD Primary Care Provider Active Team Status: Inactive Member Role Status Dates Dao Raphael Jr, MD Primary Care Provi chaz, Attending Provider, Referring Provider Active Team Status: Inactive Member Role Status Dates Dao Raphael Jr, MD Primary Care Provider, Attending Provider Active Director Of Epidemiology Relationship Specialty Start Date End Date Dao Raphael Jr., MD PCP - General 10/19/08 Dao Raphael Jr., MD [address] [place] [address] Internal Medicine 05/09/21 Director Of Epidemiology Relationship Specialty Start Date End Date Dao Raphael Jr., MD PCP - General 10/19/08 Dao Raphael Jr., MD [address] [place] [address] Internal Medicine 05/09/21 Team Status: Inactive Member Role Status Dates Holli Arredondo 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-C Attending Provider Active [place] Primary Care [...] chaz, Attending Provider, Referring Provider Active Start: September 24, 2023 End: September 24, 2023 Director Of Epidemiology Relationship Specialty Start Date End Date Dao Raphael Jr., MD PCP - General 10/19/08 Dao Raphael Jr., MD [address] [place] [address] Internal Medicine 05/09/21 Director Of Epidemiology Relationship Specialty Start Date End Date Dao Raphael Jr., MD PCP - General 10/19/08 Dao Raphael Jr., MD [address] [place] [address] Internal Medicine 05/09/21 Team Status: Inactive Member Role Status Dates aDo Raphael Jr, MD Primary Care Provi chaz, Attending Provider, Referring Provider Active Start: October 25, 2023 End: October 25, 2023 Team Status: Inactive Member Role Status Dates Mery CONWAY, PA Active Anderson Bermudez 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, 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-C Attending Provider Active [place] Primary Care Provider, Referring Provide r Active Director Of Epidemiology Relationship Specialty Start Date End Date Dao Raphael Jr., MD PCP - General 10/19/08 Dao Raphael Jr., MD [address] [place], [place] [id number] Internal Medicine 05/09/21 Team Status: Inactive Member [...] Dates Holli Arredondo NP-C Attending Provider Active Director Of Epidemiology Relationship Specialty Start Date End Date Dao Raphael Jr., MD PCP - General 10/19/08 Dao Raphael Jr., MD [address] [place] [address] Internal Medicine 05/09/21 Director Of Epidemiology Relationship Specialty Start Date End Date Dao Raphael Jr., MD PCP - General 10/19/08 Dao Raphael Jr., MD [address] [place] [address] Internal Medicine 05/09/21 Director Of Epidemiology Relationship Specialty Start Date End Date Dao Raphael Jr., MD PCP - General 10/19/08 Dao Raphael Jr., MD [address] [place] [address] [place] [address] Internal Medicine 05/09/21 Director Of Epidemiology Relationship Specialty Start Date End Date Dao Raphael Jr., MD PCP - General 10/19/08 Dao Raphael Jr., MD [address] [place] [address] [place] [address] Internal Medicine 05/09/21 Director Of Epidemiology Relationship Specialty Start Date End Date Dao Raphael Jr., MD PCP - General 10/19/08 Dao Raphael Jr., MD [address] [place] [address] Internal Medicine 05/09/21 Director Of Epidemiology Relationship Specialty Start Date End Date Dao Raphael Jr., MD PCP - General 10/19/08 Dao Raphael Jr., MD [address] [place] [address] Internal Medicine 05/09/21 Team Status: Inactive Member Role Status Dates Dao Raphael Jr, MD Primary Care Provi chaz, Attending Provider, Referring Provider Active Start: August 23, 2024 End: August 23, 2024 Director Of Epidemiology Relationship Specialty Start Date End Date Dao Raphael Jr., MD PCP - General 10/19/08 Dao Raphael Jr., MD [address] [place] [address] Internal Medicine 05/09/21 Director Of Epidemiology Relationship Specialty Start Date End Date Dao Raphael Jr., MD PCP - General 10/19/08 Dao Raphael Jr., MD [address] [place] [address] Internal Medicine 05/09/21 Director Of Epidemiology Relationship Specialty Start Date End Date Dao Raphael Jr., MD PCP - General 10/19/08 Dao Raphael Jr., MD [address] [place] [address] Internal Medicine 05/09/21 Director Of Epidemiology Relationship Specialty Start Date End Date Dao Raphael Jr., MD PCP - General 10/19/08 Dao Raphael Jr., MD [address] [place] [address] Internal Medicine 05/09/21 Team Status: Inactive Member [...] December 22, 2024 End: December 22, 2024 Director Of Epidemiology Relationship Specialty Start Date End Date Dao Raphael Jr., MD PCP - General 10/19/08 Dao Raphael Jr., MD [address] [place] [address] Internal Medicine 05/09/21 Director Of Epidemiology Relationship Specialty Start Date End Date Dao Raphael Jr., MD PCP - General 10/19/08 Dao Raphael Jr., MD [address] [place] [address] Internal Medicine 05/09/21 Team Status: Active Member Role Status Dates Out of [facility] Doctor Primary Care Provider Active Team Status: [...] 2025 End: January 17, 2025 Out of [facility] Doctor Primary Care Provider Active Start: January 17, 2025 End: January 17, 2025 Out of [facility] Doctor Referring Provider Active Sta rt: January [...] 2025 End: February 26, 2025 Out of [facility] Doctor Primary Care Provider Active Start: February [...] April 26, 2025 End: April 28, 2025 Director Of Epidemiology Relationship Specialty Start Date End Date Dao Raphael Jr., MD PCP - General 10/19/08 Dao Raphael Jr., MD [address] [place] [address] Internal Medicine 05/09/21 Team Status: Inactive Member Role/Relationship Status Dates Dr. Tolu Franz MD Attending Provider Active Start: February 22, 2025 End: February 26, 2025 Dr. Tolu Franz MD Referring Provider Active Start: February 22, 2025 End: February 26, 2025 Out of [facility] Doctor Primary Care Provider Active Start: February [...] May 24, 2025 End: May 28, 2025 Director Of Epidemiology Relationship Specialty Start Date End Date Dao Raphael Jr., MD PCP - General 10/19/08 Dao Raphael Jr., MD [address] [place] [address] Internal Medicine 05/09/21 Team Status: Active Member Role/Relationship Status Dates No Primary Care Physician Primary Care Provider Active Team Status: Inactive Member Role/Relationship Status Dates Dr. Tolu Franz MD Attending Provider Active Start: February 22, 2025 End: February 26, 2025 Dr. Tolu Franz MD Referring Provider Active Start: February 22, 2025 End: February 26, 2025 Out [facility] Doctor Primary Care Provider Active Start: February [...] 2025 End: June 28, 2025 Charmaine Yuan 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, 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-C Attending Provider Active Start: June 28, 2025 [...] Care Provider Active Start: July 03, 2025 Director Of Epidemiology Relationship Specialty Start Date End Date Dao Raphael Jr., MD PCP - General 10/19/08 Dao Raphael Jr., MD [address] [place] [address] Internal Medicine 05/09/21 Team Status: Inactive Member [...] 2025 End: July 23, 2025 Charmaine Yuan 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, 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-C Other Provider Active Sta rt: July 23, [...] Active Start: July 23, 2025 Charmaine Yuan 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, 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-C Other Provider Active Sta rt: July 23, [...] Active Start: July 23, 2025 Charmaine Yuan 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, 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-C Other Provider Active Sta rt: July 23, [...] End: June 28, 2025 Charmaine Yuan NP, 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-C Attending Provider Active Start: June 28, 2025 [...] 2025 End: July 23, 2025 Charmaine Yuan 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, 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-C Other Provider Active Sta rt: July 23, [...] Active Start: July 23, 2025 Charmaine Yuan 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, 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-C Other Provider Active Sta rt: July 23, [...] Active Start: July 23, 2025 Charmaine Yuan 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, 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-C Other Provider Active Sta rt: July 23, [...] BE BASED ON THE PRIMARY CLINICAL RECORDS. [employer] [facility]. provides no warranty or guarantee of the accuracy or completeness of information in this document.
--- NOTE | 2025-08-18 00:18 | ECHOCS_ITS ---
Reason For Study Reason For Study: CONGESTIVE HEART FAILURE Procedure This was a 2D Doppler, Color Flow transthoracic echocardiogram. The study was technically difficult. Contrast injection was performed. Exam performed portable in patient room. Left Ventricle Normal LV size. Left ventricular systolic function is normal. The left ventricular ejection fraction is 60 %. No regional wall motion abnormalities noted. Right Ventricle Normal RV size. Normal systolic function. Atria The left atrium is moderately enlarged. Normal right atrium. Mitral Valve Normal mitral valve. Tricuspid Valve Normal tricuspid valve. Mild tricuspid valve insufficiency. Aortic Valve Trisinus/trileaflet aortic valve. Mild diffuse aortic valve thickening. Pulmonic Valve Normal pulmonic valve. Great Vessels Mildly calcified aortic root. The pulmonary artery is normal size. Inferior vena cava collapse with sniff. Pericardium/Pleural Moderate (1.0-2.0 cm) pericardial effusion. There are no echocardiographic indications of cardiac tamponade. Medication Diluted definity 3ml given slow IV push to enhance endocardial definition. MMode/2D Measurements & Calculations LVIDd: 3.1 cm IVSd: 0.98 cm LVOT diam: 1.9 cm LVIDs: 2.4 cm LVPWd: 1.1 cm RVDd: 3.7 cm FS: 24.8 % LVOT area: 2.8 cm2 asc Aorta Diam: 3.1 cm LAV(MOD-bp): 67.3 ml Ao sinus diam: 3.4 cm LAV(MOD-bp) Indexed: 30.2 ml/m2 LAV(MOD-sp2): 56.5 ml LAV(MOD-sp4): 77.[address] Junction: 2.6 cm LA dimension(2D): 4.7 cm LA A4 area: 24.8 cm2 RA A4 area: 14.6 cm2 Doppler Measurements & Calculations MV E max angel: 101.5 cm/sec Ao V2 max: 76.5 cm/sec LV V1 max: 56.7 cm/sec Ao max P.3 mmHg LV V1 max P.3 mmHg Ao V2 mean: 60.2 cm/sec LV V1 mean P.87 mmHg Ao mean P.5 mmHg LV V1 mean: 45.8 cm/sec Ao V2 VTI: 13.4 cm LV V1 VTI: 9.2 cm AV (velocity ratio): 0.69 ANNI(I,D): 1.9 cm2 ANNI(V,D): 2.0 cm2 SV(LVOT): 25.5 ml PA V2 max: 42.2 cm/sec TR max angel: 209.7 cm/sec TR max P.6 mmHg ECHO/Echo Complete W/ Contrast Interpretation Summary Normal LV size. Left ventricular systolic function is normal. The left ventricular ejection fraction is 60 %. The left atrium is moderately enlarged. Moderate (1.0-2.0 cm) pericardial effusion. There are no echocardiographic indications of cardiac tamponade. Contrast injection was performed. Ordering Physician: Loni Brock Performed By: Malaika Adams RDCS
[2025-08-18 00:22] LABS: Magnesium 2.0 mg/dL (1.5-2.2)
[2025-08-18 01:19] LABS: Troponin T High Sens 4 HR 21 ng/L (<=22)
[2025-08-18] MEDS: Azithromycin 500 MG in 0.9% Normal Saline (250mL Bag) 250 ML 250 MG IV (05:17)
[2025-08-18 06:37] LABS: Hematocrit 38.6 % (40-54); Hemoglobin 12.3 g/dL (13.0-16.5); Immature Granulocytes Count 0.090 X10^3/uL (0.0-0.0); Mean Corp Hgb Conc 31.9 g/dL (32-36); Mean Corpuscular Volume 86.7 fL (80-94); Mean Platelet Vol. 9.5 fl (6.2-12.0); NRBC Flagged by Analyzer 0 % (0-5); Platelet Count 369 K/mm3 (150-450); RBC Distribution Width CV 15.5 % (11.6-14.6); RBC Distribution Width SD 48.5 fl (35.1-43.9); Red Blood Count 4.45 M/mm3 (4.6-6.2); White Blood Count 13.7 K/mm3 (4.4-11.0)
[2025-08-18 07:30] LABS: AST(SGOT) 38 U/L (<=37); Alanine Aminotransfer ALT/SGPT 43 U/L (<=46); Albumin, Serum 3.4 g/dL (3.4-4.8); Alkaline Phosphatase 171 U/L (40-129); Anion Gap 18 (5-15); BUN 39 mg/dL (4-19); BUN/Creat Ratio 30.8 RATIO (10-20); Calcium,Total 8.8 mg/dL (7.6-11.0); Carbon Dioxide 18.5 mmol/L (21.0-32.0); Chloride 100 mmol/L (98-108); Cholesterol 65 mg/dL (<=200); Estimated Creatinine Clearance 52.21 ml/min (50-250); Globulin 3.1 g/dL (2.2-4.2); Glucose 112 mg/dL (70-99); Low Density Lipoprotein Calc. 21 mg/dL; Potassium 3.3 mmol/L (3.3-5.1); Triglycerides 58 mg/dL; Very Low Density Lipoprotein 12 mg/dL (5-40); cholesterol:hdl ratio screen 1.99
[2025-08-18 07:44] LABS: LDH 264 U/L (87-241)
[2025-08-18 08:05] LABS: Procalcitonin 0.11 ng/mL (<=0.10)
[2025-08-18] MEDS: Aspirin E.C. 81 MG Tablet PO (10:13)
[2025-08-18] MEDS: Metoprolol(XL)Succ 50 MG Tablet PO (10:14)
--- NOTE | 2025-08-18 11:55 | CASEMGMT ---
KIESHA HIGUERA Face to Face with patient for initial transition planning/care coordination assessment. RN CM introduced self and role at [facility]. Patient lying in bed, alert and oriented. Patient willing to participate in assessment and is able to answer all questions appropriately. Care providers, pharmacy, and demographics verified. Strata:2 PCP: [place] Specialists: Charly, buckle frame shaper; Friend, GI Preferred Pharmacy: [facility] Insurance: MCR, MMO Prescription Benefit: yes Living Will/HPOA: yes, daughter Columba Rhamy LNOK: daughter, son Living Arrangements: Patient lives with son in a first floor apartment with no steps to enter. Patient states he is independent at home. Transportation: self, son DME/HHC: Patient has shower chair, raised toilet, and rollator at home. No previous HHC or SNF. Patient wishes to discharge home, RN KALEN discuss possible need for HHC vs SNF pending therapy evals. Patient voice understanding and would be agreealbe to TCU if recommended, will monitor progress with therapy. Patient states he has no further needs or concerns at this time. CM to follow for discharge planning needs that may arise. Disposition Plan: TBD, anticipate HHC vs SNF pending progress with therapy. Yohana MORRIS, RN, CM
--- NOTE | 2025-08-18 13:52 | PN_ITS ---
Subjective Subjective Patient seen and examined With his nurse by his bedside. He had no active complaints. He was admitted with complaint of shortness of breath. He says he still feels a bit short of breath but it is improving. He denies any cough or chest pain, palpitations, dizziness, nausea or vomiting. Review of systems otherwise negative. Objective Data Objective Data Vital Signs: Vital Signs Temp Pulse Resp BP Pulse Ox O2 Del Method 97.7 F L 101 H 18 120/85 H 98 Room Air 08/18/25 09:54 08/18/25 10:14 08/18/25 09:54 08/18/25 10:14 08/18/25 09:54 08/18/25 09:55 Oxygen Delivery Method Room Air Weight: 233 lb 3.985 oz Body Mass Index (BMI) 33.5 Intake & Output: Intake and Output for Last 24 Hours 08/16/25 08/17/25 08/18/25 23:59 23:59 23:59 Intake Total 300 / 300 Output Total 300 / 300 Balance 0 / 0 Lab / Micro Data 08/18/25 06:20 08/18/25 06:20 Labs: Laboratory Results - last 24 hr 08/17/25 19:55: WBC 14.6 H, RBC 4.25 L, Hgb 11.6 L, Hct 36.6 L, MCV 86.1, MCH 27.3, MCHC 31.7 L, RDW Std Deviation 48.0 H, RDW Coeff of Micheal 15.5 H, Plt Count 366, MPV 9.1, Immature Gran % (Auto) 1.000 H, Neut % (Auto) 83.8 H, Lymph % (Auto) 6.8 L, [place] % (Auto) 7.7, Eos % (Auto) 0.3, Baso % (Auto) 0.4, Absolute Neuts (auto) 12.3 H, Absolute Lymphs (auto) 0.99, Nucleated RBC % 0, PT 27.2 H, INR 2.5, APTT 32.9, Sodium 138, Potassium 3.6, Chloride 99, Carbon Dioxide 22.0, Anion Gap 16 H, BUN 41 H, Creatinine 1.37 H, Estim Creat Clear Calc 51.01, Est GFR (MDRD) Non-Af 51 L, BUN/Creatinine Ratio 29.9 H, Glucose 119 H, Calcium 9.0, Total Bilirubin 0.93, AST 37, ALT 41, Alkaline Phosphatase 182 H, Troponin T High Sens 40 H D, NT pro BNP II 2332 H, Total Protein 6.6, Albumin 3.6, Globulin 3.0, Albumin/Globulin Ratio 1.2 08/17/25 21:55: Magnesium 2.0, Troponin T Hi Sens 2 Hr 25 H 08/18/25 00:51: Troponin T Hi Sens 4Hr 21 08/18/25 01:10: POC Glucose 101 08/18/25 06:20: WBC 13.7 H, RBC 4.45 L, Hgb 12.3 L, Hct 38.6 L, MCV 86.7, MCH 27.6, MCHC 31.9 L, RDW Std Deviation 48.5 H, RDW Coeff of Micheal 15.5 H, Plt Count 369, MPV 9.5, Immature Gran % (Auto) 0.700, Neut % (Auto) 71.7 H, Lymph % (Auto) 16.8 L, [place] % (Auto) 9.8, Eos % (Auto) 0.6, Baso % (Auto) 0.4, Absolute Neuts (auto) 9.8 H, Absolute Lymphs (auto) 2.30, Nucleated RBC % 0, Sodium 136, Potassium 3.3, Chloride 100, Carbon Dioxide 18.5 L, Anion Gap 18 H, BUN 39 H, C reatinine 1.26 H, Estim Creat Clear Calc 52.21, Est GFR (MDRD) Non-Af 56 L, B UN/Creatinine Ratio 30.8 H, Glucose 112 H, Calcium 8.8, Total Bilirubin 1.01, AST 38, ALT 43, Alkaline Phosphatase 171 H, Lactate Dehydrogenase 264 H, Total Protein 6.5, Albumin 3.4, Globulin 3.1, Albumin/Globulin Ratio 1.1, Triglycerides 58, Cholesterol 65, LDL Cholesterol, Calc 21, VLDL Cholesterol 12, HDL Cholesterol 33 L, Cholesterol/HDL Ratio 1.99, Procalcitonin 0.11, TSH 2.380, Free T4 1.40, POC Glucose 90 08/18/25 11:29: POC Glucose 113 H Radiography Diagnostic Testing: Radiology Impression Brain CT 08/17/25 20:15 IMPRESSION: 1. No acute intracranial abnormality. 2. No acute cervical spine fracture or traumatic malalignment. 3. Heterogeneous nodular thyroid gland; may be further assessed with ultrasound. 4. Moderate-large left and small right pleural effusions seen in the upper thorax. Reading Location: [facility] Cervical Spine CT 08/17/25 20:15 IMPRESSION: 1. No acute intracranial abnormality. 2. No acute cervical spine fracture or traumatic malalignment. 3. Heterogeneous nodular thyroid gland; may be further assessed with ultrasound. 4. Moderate-large left and small right pleural effusions seen in the upper thorax. Reading Location: [facility] Chest X-Ray 08/17/25 20:20 IMPRESSION: 1. Moderate left pleural effusion with likely superimposed consolidation. 2. Mild cardiomegaly with mild pulmonary vascular congestion. Reading Location: [facility] Chest CT 08/17/25 21:10 IMPRESSION: 1. Mild cardiomegaly with moderate pericardial effusion. 2. Mild right and moderate left pleural effusions. 3. Bibasilar atelectasis with possible consolidation of the posterior left lung base. Reading Location: [facility] Echocardiogram 08/18/25 00:18 Interpretation Summary Normal LV size. Left ventricular systolic function is normal. The left ventricular ejection fraction is 60 %. The left atrium is moderately enlarged. Moderate (1.0-2.0 cm) pericardial effusion. There are no echocardiographic indications of cardiac tamponade. Contrast injection was performed. Ordering Physician: Loni Brock Performed By: Malaika Adams RDCS Rhythm Strip Rhythm Strip: A-fib Rate: 102 Ectopy: None Physical Exam Const alert, oriented x3 and no apparent distress General Appearance: cooperative and well developed HEENT normocephalic, head/scalp atraumatic, moist oral mucous membranes and oropharynx normal Eyes PERRL and EOMs intact bilaterally Neck no lymphadenopathy and supple Lymph Lymphatic: no lymphedema noted Resp Resp Narrative: Mildly diminished breath sounds bilaterally. No wheezes or crackles. On room air Cardio regular rate, regular rhythm, S1 normal heart sound, S2 normal heart sound and no murmurs GI normal to inspection, nondistended, normoactive bowel sounds, soft to palpation and non-tender Extremity normal capillary refill General Extremity: no tenderness to palpation of joints or extremities Skin General Skin Exam: no breakdown Neuro CN's II-XII intact bilaterally and no focal motor deficits Motor Exam: general weakness Psych thought process normal, cooperative and affect normal Appearance: appropriate Assessment & Plan Assessment/Plan (1) Pericardial effusion: (2) Pleural effusion: (3) Dyspnea: PLAN: Plan # Hypoxia due to bilateral pleural effusion and pericardial effusion/probable pneumonia * Patient admitted with a complaint of shortness of breath. Chest x-ray showed bilateral pleural effusions and also moderate pericardial effusion * Troponin is not elevated. Being diuresed with IV Lasix. Most recent echo was in December 2024 which showed EF of 65% and stage I diastolic dysfunction with mild concentric left ventricular hypertrophy * 2D echo done today showed EF of 60% and moderately enlarged right atrium with no evidence of cardiac tamponade. * #Acute heart failure preserved ejection fraction: * Management as above. * BNP was >2000, and EF is 65% as above. #Probable community-acquired pneumonia * Chest imaging showed left lung base consolidation. Urine for strep and Legionella antigens negative. Sputum cultures ordered. On IV ceftriaxone and azithromycin #Syncope: * Thought to be due to the symptomatic pleural effusions. * Initial troponin was 40 with repeat troponin coming down to 25. PT OT on board. He did sustain a left eyebrow laceration which was sutured. * 2D echo as above. PT OT on board. Sutures to be removed in about 5 to 7 days #Paroxysmal A-fib: On amiodarone and Cardizem as well as metoprolol. Eliquis held just in case he needs thoracentesis #Type 2 diabetes mellitus: Oral meds on hold. Insulin sliding scale. Accu- Cheks ACHS. #ERYN * Cr is 1.26 today, and was 1.37 yesterday. * improving.l baseline Cr is 0.95. Will monitor * #Hypertension: On Cardizem, metoprolol and valsartan as well as Imdur #Hyperlipidemia: on statin #CAD: s/p PCI in 2020. On aspirin, valsartan and statin. on metoprolol. #Nodular thyroid: as per imaging.TSh and free T4 were WNL #BPH with obstructive pathology: on flomax DVT prophylaxis: SCDs. eliquis on hold for possible thoracentesis Charges/Coding Visit Charges Inpatient E&M: 68349 Subs Hosp L2
[2025-08-19] VITALS (8 sets, daily range): BP systolic 86–123; BP diastolic 68–98; PULSE 62–98; RESP 14–20; TEMP 36.4–36.7; O2SAT 94–100; BMI 33.5
[2025-08-19 06:39] LABS: Hematocrit 38.5 % (40-54); Hemoglobin 12.1 g/dL (13.0-16.5); Immature Granulocytes Count 0.100 X10^3/uL (0.0-0.0); Mean Corp Hgb Conc 31.4 g/dL (32-36); Mean Corpuscular Volume 86.3 fL (80-94); Mean Platelet Vol. 9.5 fl (6.2-12.0); NRBC Flagged by Analyzer 0 % (0-5); Platelet Count 371 K/mm3 (150-450); RBC Distribution Width CV 15.5 % (11.6-14.6); RBC Distribution Width SD 48.1 fl (35.1-43.9); Red Blood Count 4.46 M/mm3 (4.6-6.2); White Blood Count 12.7 K/mm3 (4.4-11.0)
[2025-08-19 07:09] LABS: Anion Gap 17 (5-15); BUN 40 mg/dL (4-19); BUN/Creat Ratio 31.7 RATIO (10-20); Calcium,Total 8.9 mg/dL (7.6-11.0); Carbon Dioxide 19.7 mmol/L (21.0-32.0); Chloride 99 mmol/L (98-108); Estimated Creatinine Clearance 51.92 ml/min (50-250); Glucose 103 mg/dL (70-99); Potassium 3.5 mmol/L (3.3-5.1)
[2025-08-19] MEDS: Aspirin E.C. 81 MG Tablet PO (09:36)
[2025-08-19] MEDS: Metoprolol(XL)Succ 50 MG Tablet PO (09:37)
--- NOTE | 2025-08-19 11:49 | PN_ITS ---
Subjective Subjective Patient seen and examined. He had no complaints. He remains on room air. He feels his shortness of breath is improving. Review of systems otherwise negative. Objective Data Objective Data Vital Signs: Vital Signs Temp Pulse Resp BP Pulse Ox O2 Del Method 98 F 62 18 123/98 H 97 Room Air 08/19/25 09:32 08/19/25 09:37 08/19/25 09:32 08/19/25 09:37 08/19/25 09:32 08/19/25 09:32 Oxygen Delivery Method Room Air Weight: 234 lb 5.622 oz Body Mass Index (BMI) 33.5 Intake & Output: Intake and Output for Last 24 Hours 08/17/25 08/18/25 08/19/25 23:59 23:59 23:59 Intake Total 300 / 300 Output Total 750 / 750 0 / 0 Balance -450 / -450 0 / 0 Lab / Micro Data 08/19/25 06:04 08/19/25 06:04 Labs: Laboratory Results - last 24 hr 08/18/25 11:29: POC Glucose 113 H 08/18/25 17:15: POC Glucose 117 H 08/18/25 21:10: POC Glucose 104 08/19/25 06:04: WBC 12.7 H, RBC 4.46 L, Hgb 12.1 L, Hct 38.5 L, MCV 86.3, MCH 27.1, MCHC 31.4 L, RDW Std Deviation 48.1 H, RDW Coeff of Micheal 15.5 H, Plt Count 371, MPV 9.5, Immature Gran % (Auto) 0.800, Neut % (Auto) 77.7 H, Lymph % (Auto) 11.5 L, [place] % (Auto) 8.8, Eos % (Auto) 0.7, Baso % (Auto) 0.5, Absolute Neuts (auto) 9.8 H, Absolute Lymphs (auto) 1.46, Nucleated RBC % 0, Sodium 136, Potassium 3.5, Chloride 99, Carbon Dioxide 19.7 L, Anion Gap 17 H, BUN 40 H, C reatinine 1.27 H, Estim Creat Clear Calc 51.92, Est GFR (MDRD) Non-Af 55 L, B UN/Creatinine Ratio 31.7 H, Glucose 103 H, Calcium 8.9 08/19/25 06:28: POC Glucose 108 H Radiography Diagnostic Testing: Radiology Impression Echocardiogram 08/18/25 00:18 Interpretation Summary Normal LV size. Left ventricular systolic function is normal. The left ventricular ejection fraction is 60 %. The left atrium is moderately enlarged. Moderate (1.0-2.0 cm) pericardial effusion. There are no echocardiographic indications of cardiac tamponade. Contrast injection was performed. Ordering Physician: Loni Brock Performed By: Malaika Adams RDCS Rhythm Strip Rhythm Strip: A-fib Rate: 102 Ectopy: None Physical Exam Const alert, oriented x3 and no apparent distress General Appearance: cooperative and well developed HEENT normocephalic, head/scalp atraumatic, moist oral mucous membranes and oropharynx normal Eyes PERRL and EOMs intact bilaterally Neck supple Lymph Lymphatic: no lymphedema noted Resp Resp Narrative: Mildly diminished breath sounds bilaterally. No wheezes or crackles. On room air Cardio regular rate, regular rhythm, S1 normal heart sound, S2 normal heart sound and no murmurs GI normal to inspection, nondistended, normoactive bowel sounds, soft to palpation and non-tender Extremity normal capillary refill General Extremity: no tenderness to palpation of joints or extremities Skin General Skin Exam: no breakdown Neuro CN's II-XII intact bilaterally and no focal motor deficits Motor Exam: general weakness Psych thought process normal, cooperative and affect normal Appearance: appropriate Assessment & Plan Assessment/Plan (1) Pericardial effusion: (2) Pleural effusion: (3) Dyspnea: PLAN: Plan # Hypoxia due to bilateral pleural effusion and pericardial effusion/probable pneumonia * Patient admitted with a complaint of shortness of breath. Chest x-ray showed bilateral pleural effusions and also moderate pericardial effusion * Troponin is not elevated. Being diuresed with IV Lasix. Most recent echo was in December 2024 which showed EF of 65% and stage I diastolic dysfunction with mild concentric left ventricular hypertrophy * 2D echo showed EF of 60% and moderately enlarged right atrium with no evidence of cardiac tamponade. * #Acute heart failure preserved ejection fraction: * Management as above. * BNP was >2000, and EF is 65% as above. * fluid restriction to 1500cc daily #Probable community-acquired pneumonia * Chest imaging showed left lung base consolidation. * Urine for strep and Legionella antigens negative. Sputum cultures ordered. On IV ceftriaxone and azithromycin #Syncope: * Thought to be due to the symptomatic pleural effusions. * Initial troponin was 40 with repeat troponin coming down to 25. PT OT on board. He did sustain a left eyebrow laceration which was sutured. * 2D echo as above. PT OT on board. Sutures to be removed in about 5 to 7 days #Paroxysmal A-fib: On amiodarone and Cardizem as well as metoprolol. Eliquis held just in case he needs thoracentesis #Type 2 diabetes mellitus: Oral meds on hold. Insulin sliding scale. Accu- Cheks ACHS. #ERYN * Cr is 1.27 today, and was 1.37 yesterday. * improving. Will monitor closely * #Hypertension: On Cardizem, metoprolol and valsartan as well as Imdur #Hyperlipidemia: on statin #CAD: s/p PCI in 2020. On aspirin, valsartan and statin. on metoprolol. #Nodular thyroid: as per imaging.TSh and free T4 were WNL. To follow up with endocrinology on outpatient basis #BPH with obstructive pathology: on flomax DVT prophylaxis: SCDs. eliquis on hold for possible thoracentesis Charges/Coding Visit Charges Inpatient E&M: 33113 Subs Hosp L2
[2025-08-19] MEDS: Azithromycin 500 MG in 0.9% Normal Saline (250mL Bag) 250 ML 250 MG IV (12:21)
--- NOTE | 2025-08-19 14:34 | NURSING ---
This RN and a ACADEMIC SERVICES PROFESSIONAL were transfering pt back to the bed from the chair, he got unsteady jail to the bed from the chair. He was guided down to the bed. Pt sitting on side of bed stated he was feeling like he was going to pass out, the RN and ACADEMIC SERVICES PROFESSIONAL put his legs up into the bed and raised his head. When asked what his name was his speech was noncoherent. Placed pt on oxygen and called a rapid, a few seconds later he started to come to it and was A+OX3. pt now resting in the bed. Vitals and blood sugar were taken.
[2025-08-19] MEDS: 0.9% Saline Lock 10 ML Syringe IV (17:36)
[2025-08-20] VITALS (16 sets, daily range): BP systolic 76–119; BP diastolic 46–85; PULSE 80–106; RESP 16–28; TEMP 36.1–36.6; O2SAT 95–100; BMI 34.7
--- NOTE | 2025-08-20 | FLU_PTH ---
PATIENT: RAYA MCNAIR LOC: [facility] U#:[id number] AGE/SX: 85/M ROOM: [facility] RE08/17/[address]: Dr. Rayshawn Palomares DO : 1940 BED: 1 DIS: 08/23/2025 SPEC #: [id number] RECD: 08/21/25 08:17 STATUS: RIAN REQ #: [id number] UMU: 08/20/25 00:[address]: Rayshawn Palomares DEPT: CYTOLOGY RECD BY: Joy Patrick ENTERED: 08/21/25 08:18 SP TYPE: Fluid OTHR DR: MD Dr. Jayesh Emerson Jr., MD Dr. Nana Yaa Koram, MD Tissues: THORACIC FLUID Procedures: Special Stain Group II Surgery Specimen Level IV Cytospin Fluid HEADER OPERATION: Ultrasound guided thoracentesis - left PRE-OP DIAGNOSIS: Pleural effusion TISSUE SUBMITTED: A- Thoracentesis fluid for cytology DIAGNOSIS CYTOLOGY A. Pleural effusion, thoracentesis (cytospin, cellblock): * No malignant cells identified. * Reactive mesothelial cells with acute and chronic inflammation. CYTOLOGY STUDY Slides are reviewed. CYTOLOGY GROSS A. Received is 65 ml of koko-cloudy fluid labeled with the patient's name and and designated per the requisition as Thoracentesis fluid. Submitted for cytology and cell block preparation. Mr 08/21/2025 CPT: 90430,81672
[2025-08-20 05:43] LABS: Hematocrit 36.7 % (40-54); Hemoglobin 11.8 g/dL (13.0-16.5); Immature Granulocytes Count 0.090 X10^3/uL (0.0-0.0); Mean Corp Hgb Conc 32.2 g/dL (32-36); Mean Corpuscular Volume 85.7 fL (80-94); Mean Platelet Vol. 9.1 fl (6.2-12.0); NRBC Flagged by Analyzer 0 % (0-5); Platelet Count 326 K/mm3 (150-450); RBC Distribution Width CV 15.6 % (11.6-14.6); RBC Distribution Width SD 47.6 fl (35.1-43.9); Red Blood Count 4.28 M/mm3 (4.6-6.2); White Blood Count 11.6 K/mm3 (4.4-11.0)
[2025-08-20 05:55] LABS: Partial Thromboplast Time 32.4 Seconds (24.1-36.2); Prothrombin Time (Protime)PT. 20.2 SECONDS (11.7-14.9)
[2025-08-20 06:13] LABS: Anion Gap 16 (5-15); BUN 42 mg/dL (4-19); BUN/Creat Ratio 32.7 RATIO (10-20); Calcium,Total 8.7 mg/dL (7.6-11.0); Carbon Dioxide 21.6 mmol/L (21.0-32.0); Chloride 99 mmol/L (98-108); Estimated Creatinine Clearance 52.42 ml/min (50-250); Glucose 117 mg/dL (70-99); Potassium 3.4 mmol/L (3.3-5.1)
--- NOTE | 2025-08-20 07:00 | US_ITS ---
PROCEDURE: THORACENTESIS W US 08/20/2025 REASON FOR EXAM: BL PLEURAL EFFUSIONS TECHNIQUE: THORACENTESIS W US The procedure as well as the benefits and possible complications were explained to the patient. Informed consent was obtained. The skin overlying the left pleural cavity was prepped and draped in the usual sterile fashion. Following local anesthetic application, a 5 Kyrgy[place] catheter was placed into the pleural space. 1430 mL of koko colored fluid was aspirated. A 100 mL sample was sent to the laboratory for analysis. COMPARISON: Prior chest radiograph dated August 17, 2025. FINDINGS: Successful left thoracentesis. US/Thoracentesis W US IMPRESSION: Successful left thoracentesis. The patient tolerated the procedure well. No immediate complication is seen. Reading Location: [place] [address]
--- NOTE | 2025-08-20 09:25 | CASEMGMT ---
KIESHA HIGUERA in to discuss discharge planning with patient, daughter at bedside. KIESHA HIGUERA reviewed progress with therapy and recommendations for SNF at discharge. Patient states he would like to go to TCU for additional therapy, declined SNF list at this time. Patinte and daughter had no further questions. KIESHA HIGUERA made referral to TCU, awaiting response.
[2025-08-20] MEDS: 0.9% Saline Lock 10 ML Syringe IV ×3 (10:36→18:42)
[2025-08-20] MEDS: Metoprolol(XL)Succ 50 MG Tablet PO (10:37)
[2025-08-20] MEDS: Azithromycin 500 MG in 0.9% Normal Saline (250mL Bag) 250 ML 250 MG IV (10:43)
[2025-08-20] MEDS: Lidocaine 2% (20 ml mdv) 20 ML Vial INFILT (13:48)
--- NOTE | 2025-08-20 14:05 | RAD_ITS ---
PROCEDURE: CHEST INSP/EXP 2 VIEW 08/20/2025 REASON FOR EXAM: POST THORA TECHNIQUE: Procedure Code: [id number] Modality: DX Procedure: CHEST INSP/EXP 2 VIEW AP inspiration expiration views were obtained following a left thoracentesis. COMPARISON: Prior study dated August 17, 2025. FINDINGS: The patient is status post left thoracentesis. No evidence of pneumothorax. Minimal blunting of the left costophrenic angle is residual. Cardiomegaly. RAD/Chest Insp/Exp 2 View IMPRESSION: Status post left thoracentesis. No evidence of pneumothorax. Minimal residual blunting of the left costophrenic angle. The patient tolerated the procedure well. Reading Location: [place] [address]
--- NOTE | 2025-08-20 14:53 | PCM.PN.HOSP ---
Reason for Visit Chief Complaint: Recent syncopal events, dyspnea worsening with exertion. Subjective Subjective Breathing better. Anxious about the thoracentesis (seen before thoracentesis) Objective Data Objective Data Vital Signs: Vital Signs Temp Pulse Resp BP Pulse Ox O2 Del Method O2 Flow Rate 36.1 C L 91 22 H 86/49 L 100 Nasal Cannula 2 08/20/25 10:33 08/20/25 14:15 08/20/25 14:15 08/20/25 14:15 08/20/25 10:33 08/20/25 14:15 08/20/25 14:15 Oxygen Flow Rate (L/min) 2 Oxygen Delivery Method Nasal Cannula Weight: 110.1 kg Body Mass Index (BMI) 34.7 Intake & Output: Intake and Output for Last 24 Hours 08/18/25 08/19/25 08/20/25 23:59 23:59 23:59 Intake Total 300 / 300 1000 / 1150 1130.00 / 1130.00 Output Total 750 / 750 1850 / 2250 2830 / 2830 Balance -450 / -450 -850 / -1100 -1700.00 / -1700.00 Lab / Micro Data 08/20/25 05:27 08/20/25 05:27 Labs: Laboratory Results - last 24 hr 08/19/25 16:52: POC Glucose 122 H 08/19/25 22:00: POC Glucose 112 H 08/20/25 05:27: WBC 11.6 H, RBC 4.28 L, Hgb 11.8 L, Hct 36.7 L, MCV 85.7, MCH 27.6, MCHC 32.2, RDW Std Deviation 47.6 H, RDW Coeff of Micheal 15.6 H, Plt Count 326, MPV 9.1, Immature Gran % (Auto) 0.800, Neut % (Auto) 75.0 H, Lymph % (Auto) 13.5 L, [place] % (Auto) 9.4, Eos % (Auto) 0.9, Baso % (Auto) 0.4, Absolute Neuts (auto) 8.7 H, Absolute Lymphs (auto) 1.57, Nucleated RBC % 0, PT 20.2 H, INR 1.7, APTT 32.4, Sodium 136, Potassium 3.4, Chloride 99, Carbon Dioxide 21.6, Anion Gap 16 H, BUN 42 H, Creatinine 1.28 H, Estim Creat Clear Calc 52.42, Est GFR (MDRD) Non-Af 55 L, BUN/Creatinine Ratio 32.7 H, Glucose 117 H, Calcium 8.7 08/20/25 06:14: POC Glucose 103 08/20/25 12:03: POC Glucose 137 H Radiography Diagnostic Testing: Radiology Impression Chest X-Ray 08/20/25 14:05 IMPRESSION: Status post left thoracentesis. No evidence of pneumothorax. Minimal residual blunting of the left costophrenic angle. The patient tolerated the procedure well. Reading Location: [facility]-1 Rhythm Strip Rhythm Strip: A-fib Rate: 102 Ectopy: None Physical Exam Const alert and no apparent distress HEENT head/scalp atraumatic and moist oral mucous membranes Resp normal respiratory effort, no retractions, no use of accessory muscles and clear to auscultation bilaterally Resp Narrative: bibasilar crackles. Cardio regular rate, regular rhythm, S1 normal heart sound and S2 normal heart sound GI normal to inspection, nondistended, normoactive bowel sounds, soft to palpation, non-tender and non-distended Extremity normal to inspection and full ROM Neuro Sensorium / Orientation: awake and alert Psych affect normal Assessment & Plan Assessment/Plan (1) (HFpEF) heart failure with preserved ejection fraction: PLAN: EF 60% on IV furosemide. (2) Pleural effusion: PLAN: 2/2 CHF exacerbation. plan for thoracentesis. (3) Pericardial effusion: PLAN: noted on CT and echo. Moderate. No pericardial effusion. PLAN: Plan Anemia: mild. Stable. no additional work up at this time. Afib: follow up with cardiology as outpt. on amiodarone, metoprolol succinate. VTE prophylaxis: SCDs. DW patient's daughter at bedside. Greater than 50 minutes, discussing with pt and his dtr about CHF, pericardial effusion, pleural effusion, thoracentesis. Charges/Coding Visit Charges Inpatient E&M: 60613 [facility] Hosp L3
[2025-08-20 14:58] LABS: Cytology, Body Fluid / CSF SEE PATHOLOGY REPORT
[2025-08-20 15:27] LABS: Body Fluid Mononuclear WBC # 0.395 10^3/uL; Body Fluid Mononuclear WBC % 76.9 %; Body Fluid Polynuclear WBC # 0.119 10^3/uL; Body Fluid Polynuclear WBC % 23.1 %; Red Cell Count/Body Fluid 0.003 10^6/ul; White Blood Count/Body Fluid 0.514 10^3/uL
--- NOTE | 2025-08-20 16:23 | EKG12_ITS ---
Test Reason : CHEST PAIN Blood Pressure : */* mmHG Vent. Rate : 88 BPM Atrial Rate : * BPM P-R Int : * ms QRS Dur : 70 ms QT Int : 320 ms P-R-T Axes : * 23 157 degrees QTcB Int : 387 ms Atrial fibrillation Low voltage QRS Septal infarct , age undetermined Abnormal ECG No previous ECGs available Confirmed by EDWIN MATHEWS, JERSEY ([id number]), associate editor MALIK JAIME ([id number]) on 08/21/2025 10:35:55 AM Referred By: Confirmed By: JERSEY PINEDA MD
--- NOTE | 2025-08-20 16:50 | RAD_ITS ---
PROCEDURE: CHEST 1 VIEW (PORTABLE) 08/20/2025 REASON FOR EXAM: CHEST PAIN, WHEEZING TECHNIQUE: Frontal view of the chest. COMPARISON: Chest CT 08/17/2025, x-ray earlier same day 08/20/2025. FINDINGS: Lungs/Pleura: Unchanged small-moderate left pleural effusion with adjacent atelectasis. Probable small layering right basilar pleural effusion. Coexisting consolidation not excluded. No pneumothorax. Heart/Mediastinum: Mildly enlarged, stable. Aortic arch calcification. Bones/Soft tissues: Degenerative changes of the spine. RAD/Chest 1 View (Portable) IMPRESSION: Unchanged small-moderate left and probable small right basilar pleural effusion s. No pneumothorax. Coexisting consolidation and/or atelectasis not excluded. Reading Location: [facility]
[2025-08-20 17:16] LABS: Body Fluid QC Type(s) BF1Q
[2025-08-20 17:49] LABS: Glucose, Body Fluid 118 mg/dL (Not Establ.)
[2025-08-20 21:21] LABS: Neutrophil (Segs) 13 %
[2025-08-20 21:27] LABS: Auto B Fluid Analyzer BKGD Ct COUNTS W/IN LIMITS (W/IN LIMITS); Source- Body Fluid THORACENTESIS
[2025-08-20 21:28] LABS: Appearance/Body Fluid CLEAR; Color/Body Fluid YELLOW
[2025-08-21] VITALS (12 sets, daily range): BP systolic 92–115; BP diastolic 67–79; PULSE 50–90; RESP 16–19; TEMP 36.3–37.1; O2SAT 94–100; BMI 33.6
[2025-08-21] MEDS: Aspirin E.C. 81 MG Tablet PO (07:57)
--- NOTE | 2025-08-21 08:32 | PCM.PN.HOSP ---
Reason for Visit Chief Complaint: Recent syncopal events, dyspnea worsening with exertion. Subjective Subjective Feeling better. No further chest pain. Objective Data Objective Data Vital Signs: Vital Signs Temp Pulse Resp BP Pulse Ox O2 Del Method O2 Flow Rate 36.3 C L 90 16 109/77 100 Nasal Cannula 2 08/21/25 08:00 08/21/25 08:00 08/21/25 08:00 08/21/25 08:00 08/21/25 08:00 08/21/25 08:06 08/21/25 08:06 Oxygen Flow Rate (L/min) 2 Oxygen Delivery Method Nasal Cannula Weight: 106.7 kg Body Mass Index (BMI) 33.6 Intake & Output: Intake and Output for Last 24 Hours 08/19/25 08/20/25 08/21/25 23:59 23:59 23:59 Intake Total 1000 / 1150 1250.00 / 1350.00 100 / 100 Output Total 1850 / 2250 2830 / 3230 600 / 600 Balance -850 / -1100 -1580.00 / -1880.00 -500 / -500 Lab / Micro Data 08/20/25 05:27 08/20/25 05:27 Labs: Laboratory Results - last 24 hr 08/20/25 12:03: POC Glucose 137 H 08/20/25 16:28: POC Glucose 118 H 08/20/25 21:44: POC Glucose 110 H 08/20/25 : Fluid Source THORACENTESIS, Fluid Color YELLOW, Fluid Appearance CLEAR, Fluid WBC 0.514, Fluid RBC 0.003, Fluid Tot Cell Count 0.537, Fld Polynuclear WBCs # 0.119, Fld Polynuclear WBCs % 23.1, Fluid Mononuclear WBCs 0.395, Fld Mononuclear WBCs % 76.9, Fluid Neutrophils 13, Fluid Lymphocytes 38, Fluid Monocytes 32, Fluid Macrophages 16, Fld Mesothelial Cells 1, Fl Pathologist Comment May follow, Fluid Glucose 118, Fluid Total Protein 2.6, Fluid LDH 89, Fluid Comment 2 SEE COMMENT 08/21/25 06:35: POC Glucose 104 Radiography Diagnostic Testing: Radiology Impression Thoracentesis Ultrasound 08/20/25 07:00 IMPRESSION: Successful left thoracentesis. The patient tolerated the procedure well. No immediate complication is seen. Reading Location: [facility] Chest X-Ray 08/20/25 14:05 IMPRESSION: Status post left thoracentesis. No evidence of pneumothorax. Minimal residual blunting of the left costophrenic angle. The patient tolerated the procedure well. Reading [facility] Chest X-Ray 08/20/25 16:50 IMPRESSION: Unchanged small-moderate left and probable small right basilar pleural effusions. No pneumothorax. Coexisting consolidation and/or atelectasis not excluded. Reading Location: [facility] Rhythm Strip Rhythm Strip: A-fib Rate: 102 Ectopy: None Physical Exam Const alert and no apparent distress HEENT head/scalp atraumatic and moist oral mucous membranes Resp normal respiratory effort, no retractions, no use of accessory muscles and clear to auscultation bilaterally Cardio regular rate, regular rhythm, S1 normal heart sound and S2 normal heart sound GI normal to inspection, nondistended, normoactive bowel sounds, soft to palpation, non-tender and non-distended Extremity Extremity Narrative: edema in LE. Neuro Sensorium / Orientation: awake and alert Assessment & Plan Assessment/Plan (1) (HFpEF) heart failure with preserved ejection fraction: PLAN: With pleural and pericardial effusions EF 60% continue on IV furosemide. (2) Pleural effusion: PLAN: 2/2 CHF exacerbation. Thoracentesis removal of 1430cc of fluid removed on 08/20 (3) Pericardial effusion: PLAN: noted on CT and echo. Moderate. No cardiac tamponade. PLAN: Plan Anemia: mild. Stable. no additional work up at this time. Afib: follow up with cardiology as outpt. on amiodarone, metoprolol succinate. continue apixaban. VTE prophylaxis: SCDs. Charges/Coding Visit Charges Inpatient E&M: 16808 Subs Hosp L2
[2025-08-21] MEDS: Metoprolol(XL)Succ 50 MG Tablet PO (10:06)
--- NOTE | 2025-08-21 10:30 | CASEMGMT ---
KIESHA HIGUERA updated by Rolanda in TCU that patient has been accepted. KIESHA HIGUERA updated hospitalist, discharge planned for next 24-48 hours. KIESHA HIGUERA updated Rolanda in TCU. KIESHA HIGUERA in to update patient regarding acceptance to TCU, patient appreciative. Patient had no further questions or concerns.
[2025-08-21 12:29] LABS: Anion Gap 14 (5-15); BUN 40 mg/dL (4-19); BUN/Creat Ratio 30.4 RATIO (10-20); Calcium,Total 8.7 mg/dL (7.6-11.0); Carbon Dioxide 24.3 mmol/L (21.0-32.0); Chloride 101 mmol/L (98-108); Estimated Creatinine Clearance 50.43 ml/min (50-250); Glucose 124 mg/dL (70-99); Potassium 3.8 mmol/L (3.3-5.1)
[2025-08-21 13:37] LABS: Pathologist Comment/Body Fluid Reviewed
--- NOTE | 2025-08-21 18:13 | NURSING ---
Pt w/ chest pressure intermittently this afternoon. increased work of breathing noted. vss. Dr Palomares notified. ECG done. limited echo to monitor for effusion/ tamponade to be done Wed or stat if new issue overnight.
[2025-08-21 18:33] LABS: Troponin T High Sensitivity 32 ng/L (<=22)
[2025-08-21 20:48] LABS: Troponin T High Sens 2 HR 33 ng/L (<=22)
[2025-08-21 22:05] LABS: Troponin T High Sens 4 HR 37 ng/L (<=22)
[2025-08-21] MEDS: APIXABAN 5 MG TABLET PO (22:18)
[2025-08-22] VITALS (7 sets, daily range): BP systolic 85–127; BP diastolic 52–84; PULSE 67–94; RESP 16–17; TEMP 35.9–36.8; O2SAT 93–100; BMI 33.4
[2025-08-22 05:48] LABS: Anion Gap 15 (5-15); BUN 46 mg/dL (4-19); BUN/Creat Ratio 33.5 RATIO (10-20); Calcium,Total 8.5 mg/dL (7.6-11.0); Carbon Dioxide 21.7 mmol/L (21.0-32.0); Chloride 98 mmol/L (98-108); Estimated Creatinine Clearance 47.72 ml/min (50-250); Glucose 102 mg/dL (70-99); Potassium 3.3 mmol/L (3.3-5.1)
[2025-08-22] MEDS: 0.9% Saline Lock 10 ML Syringe IV (06:36)
--- NOTE | 2025-08-22 08:00 | ECHOL_ITS ---
Reason For Study Reason For Study: PERICARDIAL EFFUSION Procedure This was a limited 2D transthoracic echocardiogram. The study was technically difficult. Exam performed portable in patient room. Left Ventricle The left ventricular ejection fraction is 65 %. Right Ventricle Normal right ventricle. Atria There is severe biatrial dilatation. Mitral Valve Trivial mitral valve insufficiency. Tricuspid Valve Normal tricuspid valve. Aortic Valve The aortic valve is not well visualized in the short axis view. Pulmonic Valve The pulmonic valve is not well visualized. Great Vessels The aortic root is not well visualized. Pericardium/Pleural Small to moderate circumferential pericardial effusion with an organized layered component anteriorly. Compared to the previous study from 08/18/2025, the pericardial effusion may have decreased by small margin. No echo evidence of tamponade. ECHO/Echo, Limited Study Interpretation Summary The study was technically difficult. The left ventricular ejection fraction is 65 %. There is severe biatrial dilatation. Small to moderate circumferential pericardial effusion with an organized layere d component anteriorly. Compared to the previous study from 08/18/2025, the pericardial effusion may have decreased by s mall margin. No echo evidence of tamponade. Ordering Physician: Rayshawn Palomares Performed By: Edward Sim RCS
--- NOTE | 2025-08-22 08:03 | PCM.PN.HOSP ---
Reason for Visit Chief Complaint: Recent syncopal events, dyspnea worsening with exertion. Subjective Subjective No further chest pain. Feeling better today. Objective Data Objective Data Vital Signs: Vital Signs Temp Pulse Resp BP Pulse Ox O2 Del Method O2 Flow Rate 36.8 C 94 16 118/84 H 100 Nasal Cannula 2 08/22/25 06:34 08/22/25 06:34 08/22/25 06:34 08/22/25 06:34 08/22/25 06:34 08/22/25 06:34 08/22/25 06:34 Oxygen Flow Rate (L/min) 2 Oxygen Delivery Method Nasal Cannula Weight: 106 kg Body Mass Index (BMI) 33.4 Intake & Output: Intake and Output for Last 24 Hours 08/20/25 08/21/25 08/22/25 23:59 23:59 23:59 Intake Total 1250.00 / 1350.00 550 / 550 Output Total 2830 / 3230 875 / 875 Balance -1580.00 / -1880.00 -325 / -325 Lab / Micro Data 08/20/25 05:27 08/22/25 04:49 Labs: Laboratory Results - last 24 hr 08/20/25 : Fl Pathologist Comment Reviewed 08/21/25 11:40: POC Glucose 111 H 08/21/25 11:49: Sodium 139, Potassium 3.8, Chloride 101, Carbon Dioxide 24.3, Anion Gap 14, BUN 40 H, Creatinine 1.31 H, Estim Creat Clear Calc 50.43, Est GFR (MDRD) Non-Af 53 L, BUN/Creatinine Ratio 30.4 H, Glucose 124 H, Calcium 8.7 08/21/25 16:24: POC Glucose 121 H 08/21/25 18:03: Troponin T High Sens 32 H D 08/21/25 19:57: Troponin T Hi Sens 2 Hr 33 H 08/21/25 21:35: Troponin T Hi Sens 4Hr 37 H 08/21/25 22:28: POC Glucose 106 08/22/25 04:49: Sodium 135, Potassium 3.3, Chloride 98, Carbon Dioxide 21.7, Anion Gap 15, BUN 46 H, Creatinine 1.38 H, Estim Creat Clear Calc 47.72 L, Est GFR (MDRD) Non-Af 50 L, BUN/Creatinine Ratio 33.5 H, Glucose 102 H, Calcium 8.5 08/22/25 06:29: POC Glucose 90 Micro: Microbiology 08/20/25 Unknown Fluid - Pleural (Lung) Gram Stain - Final Rhythm Strip Rhythm Strip: A-fib Rate: 102 Ectopy: None Physical Exam Const alert and no apparent distress HEENT head/scalp atraumatic and moist oral mucous membranes Resp normal respiratory effort, no retractions, no use of accessory muscles and clear to auscultation bilaterally Cardio regular rate, regular rhythm, S1 normal heart sound and S2 normal heart sound Cardio Narrative: Subtle bibasilar crackles GI normal to inspection, nondistended, normoactive bowel sounds, soft to palpation, non-tender and non-distended Extremity Extremity Narrative: Trace lower extremity edema Assessment & Plan Assessment/Plan (1) (HFpEF) heart failure with preserved ejection fraction: PLAN: With pleural and pericardial effusions EF 60% continue on IV furosemide at least for 1 more day. (2) Pleural effusion: PLAN: 2/2 CHF exacerbation. Thoracentesis removal of 1430cc of fluid removed on 08/20 (3) Pericardial effusion: PLAN: noted on CT and echo. Moderate. No cardiac tamponade. repeat echo shows that the pericardial effusion is slightly smaller at this time but no evidence of tamponade (4) Elevated troponin I level: PLAN: Mild elevation of 32, 33 and 37. Likely due to underlying heart failure. No wall motion abnormality on echocardiogram. No additional workup at this time. PLAN: Plan Anemia: mild. Stable. no additional work up at this time. Afib: follow up with cardiology as outpt. on amiodarone, metoprolol succinate. continue apixaban. VTE prophylaxis: SCDs. Charges/Coding Visit Charges Inpatient E&M: 05404 Subs Hosp L2
[2025-08-22] MEDS: APIXABAN 5 MG TABLET PO ×2 (09:19→21:21)
[2025-08-22] MEDS: Aspirin E.C. 81 MG Tablet PO (09:19)
[2025-08-22] MEDS: Metoprolol(XL)Succ 50 MG Tablet PO (09:19)
[2025-08-22] MEDS: Potassium Chloride Oral Tablet 20 MEQ 40 MEQ PO ×2 (09:22→17:12)
[2025-08-23] VITALS (10 sets, daily range): BP systolic 85–103; BP diastolic 60–75; PULSE 78–98; RESP 18–20; TEMP 36.4–36.5; O2SAT 93–100; BMI 33.5
[2025-08-23] MEDS: 0.9% Saline Lock 10 ML Syringe IV ×2 (06:18→08:48)
[2025-08-23 06:54] LABS: Anion Gap 14 (5-15); BUN 51 mg/dL (4-19); BUN/Creat Ratio 33.4 RATIO (10-20); Calcium,Total 8.5 mg/dL (7.6-11.0); Carbon Dioxide 21.1 mmol/L (21.0-32.0); Chloride 100 mmol/L (98-108); Estimated Creatinine Clearance 43.32 ml/min (50-250); Glucose 116 mg/dL (70-99); Potassium 4.1 mmol/L (3.3-5.1)
[2025-08-23] MEDS: Aspirin E.C. 81 MG Tablet PO (08:38)
[2025-08-23] MEDS: Potassium Chloride Oral Tablet 20 MEQ 40 MEQ PO (08:38)
[2025-08-23] MEDS: Metoprolol(XL)Succ 50 MG Tablet PO (08:44)
[2025-08-23] MEDS: APIXABAN 5 MG TABLET PO (08:44)
--- NOTE | 2025-08-23 09:18 | PCM.PN.HOSP ---
Reason for Visit Chief Complaint: Recent syncopal events, dyspnea worsening with exertion. Subjective Subjective Feeling well. Had a smothering sensation when he is lying flat on his back. Patient has a history of sleep apnea and has not tolerated CPAP nor BiPAP in the past. Objective Data Objective Data Vital Signs: Vital Signs Temp Pulse Resp BP Pulse Ox O2 Del Method O2 Flow Rate 36.5 C L 98 18 92/62 100 Nasal Cannula 2 08/23/25 05:33 08/23/25 08:44 08/23/25 05:33 08/23/25 05:33 08/23/25 05:33 08/23/25 05:33 08/23/25 05:33 Oxygen Flow Rate (L/min) 2 Oxygen Delivery Method Nasal Cannula Weight: 106 kg Body Mass Index (BMI) 33.5 Intake & Output: Intake and Output for Last 24 Hours 08/21/25 08/22/25 08/23/25 23:59 23:59 23:59 Intake Total 550 / 550 500 / 500 Output Total 875 / 875 450 / 450 Balance -325 / -325 500 / 50 -450 / -450 Lab / Micro Data 08/20/25 05:27 08/23/25 06:06 Labs: Laboratory Results - last 24 hr 08/20/25 : Miscellaneous Cytology SEE PATHOLOGY REPORT 08/22/25 11:13: POC Glucose 95 08/22/25 15:38: POC Glucose 108 H 08/22/25 22:24: POC Glucose 129 H 08/23/25 06:06: Sodium 135, Potassium 4.1, Chloride 100, Carbon Dioxide 21.1, Anion Gap 14, BUN 51 H, Creatinine 1.52 H, Estim Creat Clear Calc 43.32 L, Est GFR (MDRD) Non-Af 45 L, BUN/Creatinine Ratio 33.4 H, Glucose 116 H, Calcium 8.5 08/23/25 06:14: POC Glucose 104 Micro: Microbiology 08/20/25 Unknown Fluid - Pleural (Lung) Gram Stain - Final 08/20/25 Unknown Fluid - Pleural (Lung) Body Fluid Culture - Preliminary No growth-Final to follow Radiography Diagnostic Testing: Radiology Impression Echocardiogram 08/22/25 08:00 Interpretation Summary The study was technically difficult. The left ventricular ejection fraction is 65 %. There is severe biatrial dilatation. Small to moderate circumferential pericardial effusion with an organized layered component anteriorly. Compared to the previous study from 08/18/2025, the pericardial effusion may have decreased by small margin. No echo evidence of tamponade. Ordering Physician: Rayshawn Palomares Performed By: Edward Sim RCS Rhythm Strip Rhythm Strip: A-fib Rate: 102 Ectopy: None Physical Exam Const alert and no apparent distress HEENT head/scalp atraumatic and moist oral mucous membranes Cardio regular rate, regular rhythm, S1 normal heart sound and S2 normal heart sound GI normal to inspection, nondistended, normoactive bowel sounds, soft to palpation, non-tender and non-distended Extremity normal to inspection and full ROM Assessment & Plan Assessment/Plan (1) (HFpEF) heart failure with preserved ejection fraction: PLAN: With pleural and pericardial effusions EF 60% Improved. Change to PO furosemide. (2) Pleural effusion: PLAN: 2/2 CHF exacerbation. Thoracentesis removal of 1430cc of fluid removed on 08/20 (3) Pericardial effusion: PLAN: noted on CT and echo. Moderate. No cardiac tamponade. repeat echo shows that the pericardial effusion is slightly smaller at this time but no evidence of tamponade Recommend follow-up with cardiology and have repeat echocardiogram for evaluation of the pericardial effusion to see if having ongoing improvement (4) Elevated troponin I level: PLAN: Demand ischemia. Mild elevation of 32, 33 and 37. Likely due to underlying heart failure. No wall motion abnormality on echocardiogram. No additional workup at this time. PLAN: Plan Anemia: mild. Stable. no additional work up at this time. Afib: follow up with cardiology as outpt. on amiodarone, metoprolol succinate. continue apixaban. AURELIO: untreated due to intolerance of CPAP/BiPAP. Recommend he f/u with pulmonary for possible Inspire device. He has no interest in UPPP, with I did not recommend. VTE prophylaxis: SCDs.
[2025-08-23 10:08] LABS: pH, Body Fluid 11254 7.6 (Not Estab.)
--- NOTE | 2025-08-23 11:08 | TREXTCAR_ITS ---
Diet Diet Order/Speech Therapy: INPATIENT Hospital Diet / Speech Therapy Order(s) 08/18/25 00:18 Diet: Cardiac: Calorie-Controlled Food consistency:: Regular Liquid Consistency:: Regular/Thin Dietary Modifications:: Gluten Free Lactose Controlled Fluid restriction:: 1500 mL Diet Comments: Gluten-Free; Lactose-Controlled How many daily calories?: 1800 calorie Routine Orders/Code Status Code Status: Full Code DC O2, CPAP, BIPAP needs Home O2 Discharge instructions: Yes Type of respiratory needs?: Oxygen Oxygen frequency: Continuous Continuous oxygen liters per minute: 2 Wound(s) LEFT EYEBROW: Wound Type: Laceration B elbows: Wound Type: Skin Tear left elbow: Wound Type: Skin Tear right elbow: Wound Type: Skin Tear Therapies Weight Bearing: Full weight bearing Physical Therapy: Eval and Treat Occupational Therapy: Eval and Treat Problem/Diagnosis (1) (HFpEF) heart failure with preserved ejection fraction: Status: Acute Code(s): I50.30 - Unspecified diastolic (congestive) heart failure Plan: With pleural and pericardial effusions EF 60% Improved. Change to PO furosemide. (2) Pleural effusion: Status: Acute Code(s): J90 - Pleural effusion, not elsewhere classified Plan: 2/2 CHF exacerbation. Thoracentesis removal of 1430cc of fluid removed on 08/20 (3) Pericardial effusion: Status: Acute Code(s): I31.39 - Other pericardial effusion (noninflammatory) Plan: noted on CT and echo. Moderate. No cardiac tamponade. repeat echo shows that the pericardial effusion is slightly smaller at this time but no evidence of tamponade Recommend follow-up with cardiology and have repeat echocardiogram for ev aluation of the pericardial effusion to see if having ongoing improvement (4) Elevated troponin I level: Status: Acute Code(s): R79.89 - Other specified abnormal findings of blood chemistry Plan: Demand ischemia. Mild elevation of 32, 33 and 37. Likely due to underlying heart failure. No wall motion abnormality on echocardiogram. No additional workup at this time. Plan Anemia: mild. Stable. no additional work up at this time. Afib: follow up with cardiology as outpt. on amiodarone, metoprolol succinate. continue apixaban. AURELIO: untreated due to intolerance of CPAP/BiPAP. Recommend he f/u with pulmonary for possible Inspire device. He has no interest in UPPP, with I did not recommend. VTE prophylaxis: SCDs. Allergies/Procedures Done in Hospital Allergies gluten Adverse Reaction (Verified 08/17/25 18:54) upset stomach/diarrhea lactose Adverse Reaction (Verified 08/17/25 18:54) upset stomach/diarrhea Procedures: 2-D Echocardiogram (x2) and Thoracentesis Type of Care/Length of Stay Estimated LOS: Convalescent Care Less Than 30 days Type of Care Needed: Skilled Rehab Potential: Good Prognosis: Good Additional Orders/Day of Discharge Day of Discharge: 08/23/25 Dietary and Speech Recommendations Dietitian Recommendations/Changes: Will continue 1800 calorie; cardiac; consistent carbohydrate diet with 1500mL/day FR and lactose-restricted/gluten-free diet modifiers. ONS as needed if PO declines at meals; will defer for now due to FR and fluid overload. Discharge Plan Admission Admit Date/Time: 08/17/25 23:08 Primary Reason for Your Visit: CHF exacerbation. Attending Provider: Rayshawn Palomares Primary Care Provider: Jayesh Raphael Jr. Consulting Providers: Loni Brock; Adelia Rosenberg Discharge Orders/Prescriptions Prescriptions: New furosemide [Lasix] 40 mg tablet 40 mg PO DAILY Qty: 30 0RF Continued atorvastatin 40 mg tablet 40 mg PO QHS Qty: 90 3RF isosorbide mononitrate 30 mg tablet extended release 24 hr 30 mg PO DAILY Qty: 90 3RF vitamin E mixed 400 unit capsule 400 unit PO DAILY valsartan 320 mg tablet 320 mg PO DAILY metformin 500 mg tablet extended release 24 hr 500 mg PO DAILY montelukast 10 mg tablet 10 mg PO QHS Patient Comments: Take 1 tablet by mouthcdaily at bedtime. tamsulosin 0.4 mg capsule 0.4 mg PO BID famotidine 20 mg tablet 20 mg PO DAILY Qty: 90 2RF amiodarone 200 mg tablet 200 mg PO DAILY Qty: 30 12RF metoprolol succinate 50 mg tablet extended release 24 hr 50 mg PO DAILY Qty: 90 3RF aspirin 81 MG tablet 81 mg PO DAILY@0800 cholecalciferol (vitamin D3) 2,000 UNIT capsule 4,000 unit PO DAILY vit C,P-Mn-obemp-lutein-zeaxan 1 EACH capsule 1 cap PO BID diltiazem HCl 120 mg capsule,extended release 24hr 120 mg PO QHS Trulicity 3 mg/0.5 mL pen injector 3 mg subcut QWEEK Qty: 2 5RF Eliquis 5 mg tablet 5 mg PO BID Qty: 180 3RF Discontinued hydrochlorothiazide 25 mg tablet 25 mg PO Q OTHER DAY Referrals / Follow Up: [facility] [Provider Group] - Within 1 Month Jayesh Raphael Jr., MD [Primary Care Provider, Internal Medicine] - Within 2 Weeks Disposition Disposition (needs filled in before D/C Order can be placed): Residential Facility
--- NOTE | 2025-08-23 11:15 | DS.PCM_ITS ---
Providers Date of Admission: 08/17/25 Primary Care Physician: Dr. Jayesh Raphael Jr., MD Reason For Visit: SYMPTOMATIC PLEURAL EFFUSIONS, POSS HF EXAC Diagnosis Discharge Diagnosis (1) (HFpEF) heart failure with preserved ejection fraction: Status: Acute Code(s): I50.30 - Unspecified diastolic (congestive) heart failure Plan: With pleural and pericardial effusions EF 60% Improved. Change to PO furosemide. (2) Pleural effusion: Status: Acute Code(s): J90 - Pleural effusion, not elsewhere classified Plan: 2/2 CHF exacerbation. Thoracentesis removal of 1430cc of fluid removed on 08/20 (3) Pericardial effusion: Status: Acute Code(s): I31.39 - Other pericardial effusion (noninflammatory) Plan: noted on CT and echo. Moderate. No cardiac tamponade. repeat echo shows that the pericardial effusion is slightly smaller at this time but no evidence of tamponade Recommend follow-up with cardiology and have repeat echocardiogram for evaluation of the pericardial effusion to see if having ongoing improvement (4) Elevated troponin I level: Status: Acute Code(s): R79.89 - Other specified abnormal findings of blood chemistry Plan: Demand ischemia. Mild elevation of 32, 33 and 37. Likely due to underlying heart failure. No wall motion abnormality on echocardiogram. No additional workup at this time. Plan Anemia: mild. Stable. no additional work up at this time. Afib: follow up with cardiology as outpt. on amiodarone, metoprolol succinate. continue apixaban. AURELIO: untreated due to intolerance of CPAP/BiPAP. Recommend he f/u with pulmonary for possible Inspire device. He has no interest in UPPP, with I did not recommend. VTE prophylaxis: SCDs. Medications at Discharge Home Medications aspirin 81 mg tablet,delayed release 81 mg PO DAILY@0800 heart [facility] 03/18/21 cholecalciferol (vitamin D3) 50 mcg (2,000 unit) capsule 4,000 unit PO DAILY SUPPLEMENT 03/18/21 vit C 250 mg-vit E 90 mg-zinc 40 mg-copper 1 [id number] capsule 1 cap PO BID [facility] 03/18/21 atorvastatin 40 mg tablet 40 mg PO QHS #90 tabs 04/11/21 isosorbide mononitrate 30 mg tablet,extended release 24 hr 30 mg PO DAILY #90 tabs 04/11/21 vitamin E mixed 400 unit capsule 400 unit PO DAILY 02/16/22 montelukast 10 mg tablet 10 mg PO QHS breathing 10/19/23 valsartan 320 mg tablet 320 mg PO DAILY 10/19/23 tamsulosin 0.4 mg capsule 0.4 mg PO BID 12/26/24 famotidine 20 mg tablet 20 mg PO DAILY #90 tabs 01/15/25 dulaglutide 3 mg/0.5 mL subcutaneous pen injector (Trulicity) 3 mg (0.5 mL) subcut QWEEK #2 mL 06/28/25 metformin 500 mg tablet,extended release 24 hr 500 mg PO DAILY 06/28/25 apixaban 5 mg tablet (Eliquis) 5 mg PO BID #180 tabs 07/12/25 amiodarone 200 mg tablet 200 mg PO DAILY #30 tabs 08/02/25 metoprolol succinate 50 mg tablet,extended release 24 hr 50 mg PO DAILY #90 tabs 08/02/25 diltiazem HCl 120 mg capsule,extended release 24 hr 120 mg PO QHS 08/17/25 furosemide 40 mg tablet (Lasix) 40 mg PO DAILY #30 tabs 08/23/25 Hospital Course Operations None Procedures 2-D Echocardiogram and Thoracentesis Summary of Care Provided Hospital Course: Greater than 35 minutes spent on discharge This is an 85-year-old male presents with shortness of breath. Patient was found to have CHF exacerbation as well as pleural effusions as well as pericardial effusion. Patient had an echo that showed a moderate pericardial effusion but no tamponade. Patient underwent an ultrasound-guided thoracentesis on the that removed 1.43 L of fluid. And patient was treated with IV furosemide while he was here. Patient has done well. Patient was having chest pain and given the large pericardial effusion I repeat an echo cardiogram to see the status of that and showed an improvement though still present. Patient will be transition over to oral furosemide and is instructed follow-up with cardiology, too. Ideally he should have repeat echocardiogram to see if he has ongoing improvement of his pericardial effusion. Weight / BMI Weight Weight: 106 kg Body Mass Index (BMI) 33.5 ABG / Lab / Microbiology Data 08/20/25 05:27 08/23/25 06:06 Laboratory: Laboratory Results - last 24 hr 08/20/25 : Fluid pH 7.6, Fluid Amylase 20, Miscellaneous Cytology SEE PATHOLOGY REPORT 08/22/25 11:13: POC Glucose 95 08/22/25 15:38: POC Glucose 108 H 08/22/25 22:24: POC Glucose 129 H 08/23/25 06:06: Sodium 135, Potassium 4.1, Chloride 100, Carbon Dioxide 21.1, Anion Gap 14, BUN 51 H, Creatinine 1.52 H, Estim Creat Clear Calc 43.32 L, Est GFR (MDRD) Non-Af 45 L, BUN/Creatinine Ratio 33.4 H, Glucose 116 H, Calcium 8.5 08/23/25 06:14: POC Glucose 104 Microbiology: Microbiology 08/20/25 Unknown Fluid - Pleural (Lung) Gram Stain - Final 08/20/25 Unknown Fluid - Pleural (Lung) Body Fluid Culture - Preliminary No growth-Final to follow 08/20/25 Unknown Fluid - Pleural (Lung) Anaerobic Culture - Preliminary No growth in 48 hours. Radiography Diagnostic Testing: Radiology Impression Echocardiogram 08/22/25 08:00 Interpretation Summary The study was technically difficult. The left ventricular ejection fraction is 65 %. There is severe biatrial dilatation. Small to moderate circumferential pericardial effusion with an organized layered component anteriorly. Compared to the previous study from 08/18/2025, the pericardial effusion may have decreased by small margin. No echo evidence of tamponade. Ordering Physician: Rayshawn Palomares Performed By: Edward Sim RCS D/C Instructions DC O2, CPAP, BIPAP Needs Home O2 Discharge instructions: Yes Type of respiratory needs?: Oxygen Oxygen frequency: Continuous Continuous oxygen liters per minute: 2 DC home with Oxygen: Yes Home O2 MD Review: I have reviewed the oxygen testing, and the patient qualifies for home oxygen equipment and portability. The patient is mobile in the home and the community. Meaningful Use Info Meaningful Use Meaningful Use Diagnoses (Choose all that apply): CHF CHF ROBEL/ARB ordered at discharge?: Yes Documented LVEF (%): 65 Discharge Plan Admission Admit Date/Time: 08/17/25 23:08 Primary Reason for Your Visit: CHF exacerbation. Attending Provider: Rayshawn Palomares Primary Care Provider: Jayesh Raphael Jr. Consulting Providers: Loni Brock; Adelia Rosenberg Discharge Orders/Prescriptions Prescriptions: New furosemide [Lasix] 40 mg tablet 40 mg PO DAILY Qty: 30 0RF Continued atorvastatin 40 mg tablet 40 mg PO QHS Qty: 90 3RF isosorbide mononitrate 30 mg tablet extended release 24 hr 30 mg PO DAILY Qty: 90 3RF vitamin E mixed 400 unit capsule 400 unit PO DAILY valsartan 320 mg tablet 320 mg PO DAILY metformin 500 mg tablet extended release 24 hr 500 mg PO DAILY montelukast 10 mg tablet 10 mg PO QHS Patient Comments: Take 1 tablet by mouthcdaily at bedtime. tamsulosin 0.4 mg capsule 0.4 mg PO BID famotidine 20 mg tablet 20 mg PO DAILY Qty: 90 2RF amiodarone 200 mg tablet 200 mg PO DAILY Qty: 30 12RF metoprolol succinate 50 mg tablet extended release 24 hr 50 mg PO DAILY Qty: 90 3RF aspirin 81 MG tablet 81 mg PO DAILY@0800 cholecalciferol (vitamin D3) 2,000 UNIT capsule 4,000 unit PO DAILY vit C,S-Vk-oulfe-lutein-zeaxan 1 EACH capsule 1 cap PO BID diltiazem HCl 120 mg capsule,extended release 24hr 120 mg PO QHS Trulicity 3 mg/0.5 mL pen injector 3 mg subcut QWEEK Qty: 2 5RF Eliquis 5 mg tablet 5 mg PO BID Qty: 180 3RF Discontinued hydrochlorothiazide 25 mg tablet 25 mg PO Q OTHER DAY Referrals / Follow Up: [facility] [Provider Group] - Within 1 Month Jayesh Raphael Jr., MD [Primary Care Provider, Internal Medicine] - Within 2 Weeks [facility] [Provider Group] - Within 1 Month Referral Note: For sleep apnea. Consideration for inspire device. Disposition Disposition (needs filled in before D/C Order can be placed): [facility] Charges/Coding Visit Charges Inpatient E&M: 31884 Disch Hosp >30min
--- NOTE | 2025-08-23 11:29 | PHA.DC.MR.R ---
Pharmacy [place] Med Reconciliation Pharmacy Service has performed discharge medication reconciliation for this patient. The patient's discharge medication list was reviewed for discrepancies and discrepancies were resolved. Medications at Discharge Home Medications aspirin 81 mg tablet,delayed release 81 mg PO DAILY@0800 [facility] 03/18/21 cholecalciferol (vitamin D3) 50 mcg (2,000 unit) capsule 4,000 unit PO DAILY SUPPLEMENT 03/18/21 vit C 250 mg-vit E 90 mg-zinc 40 mg-copper 1 nj-iuaxwu-hinvwu capsule 1 cap PO BID [facility] 03/18/21 atorvastatin 40 mg tablet 40 mg PO QHS #90 tabs 04/11/21 isosorbide mononitrate 30 mg tablet,extended release 24 hr 30 mg PO DAILY #90 tabs 04/11/21 vitamin E mixed 400 unit capsule 400 unit PO DAILY 02/16/22 montelukast 10 mg tablet 10 mg PO QHS breathing 10/19/23 valsartan 320 mg tablet 320 mg PO DAILY 10/19/23 tamsulosin 0.4 mg capsule 0.4 mg PO BID 12/26/24 famotidine 20 mg tablet 20 mg PO DAILY #90 tabs 01/15/25 dulaglutide 3 mg/0.5 mL subcutaneous pen injector (Trulicity) 3 mg (0.5 mL) subcut QWEEK #2 mL 06/28/25 metformin 500 mg tablet,extended release 24 hr 500 mg PO DAILY 06/28/25 apixaban 5 mg tablet (Eliquis) 5 mg PO BID #180 tabs 07/12/25 amiodarone 200 mg tablet 200 mg PO DAILY #30 tabs 08/02/25 metoprolol succinate 50 mg tablet,extended release 24 hr 50 mg PO DAILY #90 tabs 08/02/25 diltiazem HCl 120 mg capsule,extended release 24 hr 120 mg PO QHS 08/17/25 furosemide 40 mg tablet (Lasix) 40 mg PO DAILY #30 tabs 08/23/25
--- NOTE | 2025-08-23 13:17 | CASEMGMT ---
Patient has order to discharge to TCU for skilled level of care. RN KALEN faxed transfer summary and medlist to TCU. RN KALEN updated patient that he will discharge to TCU today. Patient voiced appreciation and states he has already notified his family. Patient had no further questions or concerns.
== END 2025-08-23 14:12 | disposition skilled nursing facility (03) | DRG 291 ==
LOC: ED 23:21 → PCU 23:57
PROVIDERS: Student in an Organized Health Care Education/Training Program; Admitting Provider Family Medicine; Emergency Provider Emergency Medicine; PCP Emergency Medicine
DX: I11.0 Hypertensive heart disease with heart failure (principal); I50.31 Acute diastolic (congestive) heart failure; J18.9 Pneumonia, unspecified organism; I31.39 Other pericardial effusion (noninflammatory); I24.89 Other forms of acute ischemic heart disease; J90 Pleural effusion, not elsewhere classified; N13.8 Other obstructive and reflux uropathy; N17.9 Acute kidney failure, unspecified; E11.22 Type 2 diabetes mellitus with diabetic chronic kidney disease; E04.1 Nontoxic single thyroid nodule; D64.9 Anemia, unspecified; I48.91 Unspecified atrial fibrillation; E78.5 Hyperlipidemia, unspecified; S01.112A Laceration without foreign body of left eyelid and periocular area, initial encounter; I25.10 Atherosclerotic heart disease of native coronary artery without angina pectoris; J30.9 Allergic rhinitis, unspecified; G47.33 Obstructive sleep apnea (adult) (pediatric); W01.10XA Fall on same level from slipping, tripping and stumbling with subsequent striking against unspecified object, initial encounter; Z79.01 Long term (current) use of anticoagulants; R09.02 Hypoxemia; Z87.891 Personal history of nicotine dependence; Z95.5 Presence of coronary angioplasty implant and graft; Z79.82 Long term (current) use of aspirin; N40.1 Benign prostatic hyperplasia with lower urinary tract symptoms; R79.89 Other specified abnormal findings of blood chemistry
CPT/HCPCS: 32555; 36415; 70450; 71045; 71046; 71250; 72125; 80048; 80053; 80061; 82150; 82945; 82962; 83615; 83735; 83880; 83986; 84145; 84155; 84157; 84439; 84443; 84484; 85025; 85610; 85730; 87070; 87075; 87205; 88108; 88305; 88313; 89050; 90715; 93005; 93306; 93308; 94668; 94762; 97162; 97166; 97530; 97802; 99285; Q9957; A4216; C8929; J1938

== ENCOUNTER 2025-08-23 14:13 | Inpatient (IN) | payer MEDICARE, OTHER, SELFPAY ==
[2021-07-11 09:10] VITALS: BMI 34.9
[2025-08-23 14:29] VITALS: BP 112/78; PULSE 70; RESP 16; RESP 22; TEMP 36.3; O2SAT 97; BMI 33.6
--- NOTE | 2025-08-23 17:08 | CASEMGMT ---
Social Work SW met with patient to complete initial assessment. Introduced self and role. Verified/updated contacts. Pt wishes to be DNR-CCA, no intubation. SW notified nursing. Educated to Medicare benefit and copay coverage. pt's goal is to return home with son. See SW assessment for details. SW will continue to follow for DC planning. 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
[2025-08-23] MEDS: APIXABAN 5 MG TABLET PO (20:19)
[2025-08-23] MEDS: Multivitamin (Healthy Eyes) Capsule 1 CAP PO (20:19)
[2025-08-23] MEDS: Senna/Docusate Sodium 1 Tablet PO (20:22)
[2025-08-23 20:30] VITALS: BP 107/67; PULSE 80; RESP 16; O2SAT 99
--- NOTE | 2025-08-23 20:50 | HP.PCM_ITS ---
HPI - General General Date of Admission: 08/23/25 Date of Service: 08/23/25 Chief Complaint: Here for rehabilitation. HPI Narrative RAYA MCNAIR, is a 85 Male who presents with followin08/17/2025 [facility] ED syncope. Syncope, worsening dyspnea on exertion, 2 syncopes in 1 week. Syncope getting up to go to bathroom, injured right elbow, struck left eyebrow. Worsening dyspnea on exertion, progressive shortness of breath for 2 months, he attributed to recent atrial fibrillation diagnosis. Cardioversion 2 weeks ago, more thirsty, having diarrhea. WBC 14.6, Creatinine 1.37. Chest X-ray cardiomegaly, pulmonary vascular congestion, left pleural effusion, consolidation. CT chest mild cardiomegaly, moderate pericardial effusion, mild right, moderate left pleural effusion. 08/17/2025 Admit [facility]. Serial troponin to rule out acute coronary syndrome. Hold Eliquis for thoracentesis. Rocephin/Zithromax for pneumonia. PT/OT SNF. 08/18/2025 Echo Normal LV size. LVSF noral. LVEF 60%. Moderate pericardial effusion. 08/18/2025 Shortness of breath improving. Lasix IV for pleural effusion, HFpEF, BNP > 2000. Urinary antigens for strep and legionella negative, sputum culture pending. Continue Rocephin/Zithromax for pneumonia. PT/OT for debility. 08/20/2025 Ultrasound guided thoracentesis removed 1430mL fluid. 08/20/2025 Breathing better. Lasix IV HFpEF. 08/21/2025 PT/OT SNF. 08/23/2025 Admit to TCU with debility, here for rehabilitation, strengthening, prior to discharge home alone. [facility] Medical History (Updated 08/23/25 @ 21:[address] Arthur Ortiz MD) Atrial fibrillation Hyperlipidemia Skin cancer Pneumonia Heart disease Gastrointestinal problem Gall stones Cataract Bone fracture Allergies Type 2 diabetes mellitus Hypertension Celiac disease Anxiety Coronary artery disease Hypertension Atherosclerotic heart disease of [place] coronary artery without angina pectoris Home Medications ?Medication ?Instructions ?Recorded ?Last Taken ?Type aspirin 81 mg tablet,delayed 81 mg PO DAILY@0800 [facility] 03/18/21 08/23/25 History release cholecalciferol (vitamin D3) 50 4,000 unit PO DAILY JOHN PPLEMENT 03/18/21 03/18/21 History mcg (2,000 unit) capsule vit C 250 mg-vit E 90 mg-zinc 40 1 cap PO BID [facility] 03/18/21 03/18/21 History mg-copper 1 [id number]-kwicbv capsule atorvastatin 40 mg tablet 40 mg PO QHS cholesterol #90 tabs 04/11/21 08/22/25 Rx isosorbide mononitrate 30 mg 30 mg PO DAILY BP #90 tab s 04/11/21 Unknown Rx tablet,extended release 24 hr vitamin E mixed 400 unit capsule 400 unit PO DAILY sup plement 02/16/22 Unknown History montelukast 10 mg tablet 10 mg PO QHS breathing 10/1908/22/25 History valsartan 320 mg tablet 320 mg PO DAILY BP 10/19/23 08/22/25 History tamsulosin 0.4 mg capsule 0.4 mg PO BID BPH 12/26/24 0 08/23/25 History famotidine 20 mg tablet 20 mg PO DAILY GERD #90 tabs 01/15/25 08/23/25 Rx dulaglutide 3 mg/0.5 mL 3 mg (0.5 mL) subcut QWEEK S OB #2 06/28/25 Unknown Rx subcutaneous pen injector mL (Trulicity) metformin 500 mg tablet,extended 500 mg PO DAILY Blood Glucose 06/28/25 Unknown History release 24 hr apixaban 5 mg tablet (Eliquis) 5 mg PO BID Blood thinn er #180 tabs 07/12/25 08/23/25 Rx amiodarone 200 mg tablet 200 mg PO DAILY BP #30 tabs 08/02/25 08/23/25 Rx metoprolol succinate 50 mg 50 mg PO DAILY BP #90 tabs 08/02/25 08/23/25 Rx tablet,extended release 24 hr diltiazem HCl 120 mg 120 mg PO QHS BP 08/17/25 Un known History capsule,extended release 24 hr furosemide 40 mg tablet (Lasix) 40 mg PO DAILY Fluid r etention #30 08/23/25 Unknown Rx tabs Allergy/AdvReac Type Severity Reaction Status Date / Time gluten AdvReac upset Verified 08/17/25 18:54 stomach/diarrhea lactose AdvReac upset Verified 08/17/25 18:54 stomach/diarrhea Family History Mother Thyroid disorder Father Myocardial infarction Hypertension Heart disease Surgical History Hx of melanoma excision History of cholecystectomy Presence of coronary angioplasty implant and graft (~04/03/21) Presence of stent in coronary artery (~04/03/21) Social History household members: none Smoking Status: Former smoker how long ago did patient quit smokin years ago alcohol intake: current alcohol intake frequency: holidays/special occasions only substance use type: does not use caffeine: Yes Type: coffee Number of servings: 2 and tea Number of servings: 1 what type of physical activity do you participate in: other details: cardio frequency: 3-4 times per week ROS Constitutional Constitutional: Reports weakness; Denies chills, fever(s) or weight gain ENT HEENT: Denies headache(s), nasal congestion or nasal discharge Cardiovascular Cardiovascular: Denies chest pain or palpitations Respiratory/Chest Respiratory/Chest: Denies cough, excessive phlegm production or shortness of breath with exertion Gastrointestinal Gastrointestinal: Denies abdominal pain, nausea or vomiting Genitourinary Genitourinary: Denies dysuria Musculoskeletal Musculoskeletal: Denies joint pain or joint swelling Integumentary Integumentary: Denies rash or wounds Neurologic Neurologic: Denies focal weakness, numbness or tingling Psychiatric Psychiatric: Denies anxiety, auditory hallucinations, depression, homicidal ideation or suicidal ideation Vital Signs Vital Signs Vital Signs: 08/23/25 14:29 08/23/25 14:29 Temperature 97.3 F L Temperature Source Temporal Pulse Rate 70 70 Pulse Rhythm Regular Pulse Strength Weak (1+) Respiratory Rate 16 22 H Respiratory Effort Short of Breath Accessory Muscle Use Respiratory Depth Shallow Respiratory Pattern Tachypnea Blood Pressure 112/78 Blood Pressure Mean 89 Blood Pressure Source Monitor Blood Pressure Position Semi-Fowlers Blood Pressure Location Right Arm Pulse Ox 97 97 Oxygen Delivery Method Nasal Cannula Nasal Cannula Oxygen Flow Rate (L/min) 2 2 Weight Weight: 106.339 kg Body Mass Index (BMI) 33.6 Physical Exam Const alert General Appearance: cooperative HEENT normocephalic HEENT Narrative: Sutures left eyebrow c/d/i. Eyes PERRL and EOMs intact bilaterally Neck supple, no JVD and no carotid bruits Resp normal respiratory effort, normal air movement and clear to auscultation bilaterally Auscultation: diminished lung sounds bilateral Cardio regular rate and regular rhythm GI normal to inspection, nondistended, normoactive bowel sounds, non-tender and non-distended Extremity normal capillary refill General Extremity: Negative for edema Skin no rashes or lesions noted General Skin Exam: no breakdown Psych affect normal Appearance: appropriate Assessment & Plan Assessment/Plan (1) Debility: (2) Syncope: (3) Pericardial effusion: (4) Pleural effusion: (5) Pneumonia: (6) Acute heart failure with preserved ejection fraction (HFpEF): (7) Atrial fibrillation: (8) Type 2 diabetes mellitus with hyperglycemia: (9) Essential hypertension: (10) Coronary artery disease: (11) Hyperlipidemia: QUALIFIERS: Hyperlipidemia type: unspecified Qualified Code(s): E78.5 - Hyperlipidemia, unspecified (12) BPH (benign prostatic hyperplasia): (13) GERD (gastroesophageal reflux disease): PLAN: Plan 85 year old male with below past medical history hospitalized for syncope 2/2 pleural effusion, acute HFpEF, complicated by pneumonia, pericardial effusion, admitted to TCU with debility, here for rehabilitation, strengthening, prior to discharge home alone. * Debility - PT/OT. * Pain - Tylenol 1000mg q6 prn pain (1-10). * Bowel - senna/colace 1 tablet bid, Magnesium citrate 300mL daily prn. * Adult immunization - Administer pneumonia vaccine, covid vaccine, flu vaccine as appropriate. * DVT prophylaxis - Eliquis. * Atrial Fibrillation - Metoprolol succinate 50mg daily, Diltiazem CD 120mg qhs, Amiodarone 200mg daily, Eliquis 5mg bid. * Hyperlipidemia - Atorvastatin 40mg qhs. * Vitamin D deficiency - D3 100mcg daily. * GERD - Famotidine 20mg daily. * Chronic HFpEF - Metoprolol succinate 50mg daily, Losartan 100mg daily, Isosorbide [place] 30mg daily, Furosemide 40mg daily. * Insomnia - Melatonin 3mg qhs prn. * Diabetes Mellitus II - Metformin XR 500mg daily. * Asthma - Singulair 10mg qhs. * Macular degeneration - Healthy Eyes 1 capsules bid. * BPH - Tamsulosin 0.4mg bid.
[2025-08-23] MEDS: 0.9% Saline Lock 10 ML Syringe IV (21:00)
[2025-08-24 06:40] LABS: Hematocrit 39.2 % (40-54); Hemoglobin 12.6 g/dL (13.0-16.5); Immature Granulocytes Count 0.160 X10^3/uL (0.0-0.0); Mean Corp Hgb Conc 32.1 g/dL (32-36); Mean Corpuscular Volume 86.0 fL (80-94); Mean Platelet Vol. 9.4 fl (6.2-12.0); NRBC Flagged by Analyzer 0 % (0-5); Platelet Count 405 K/mm3 (150-450); RBC Distribution Width CV 16.1 % (11.6-14.6); RBC Distribution Width SD 49.5 fl (35.1-43.9); Red Blood Count 4.56 M/mm3 (4.6-6.2); White Blood Count 12.4 K/mm3 (4.4-11.0)
[2025-08-24 08:08] LABS: Anion Gap 16 (5-15); BUN 54 mg/dL (4-19); BUN/Creat Ratio 33.3 RATIO (10-20); Calcium,Total 8.7 mg/dL (7.6-11.0); Carbon Dioxide 18.0 mmol/L (21.0-32.0); Chloride 99 mmol/L (98-108); Estimated Creatinine Clearance 40.46 ml/min (50-250); Glucose 121 mg/dL (70-99); Potassium 4.7 mmol/L (3.3-5.1)
[2025-08-24] MEDS: APIXABAN 5 MG TABLET PO ×2 (08:30→20:50)
[2025-08-24] MEDS: Multivitamin (Healthy Eyes) Capsule 1 CAP PO ×2 (08:31→20:47)
[2025-08-24] MEDS: metFORMIN (XR) 500 MG Tablet PO (08:31)
[2025-08-24] MEDS: Cholecalciferol (VIT D3) 25 MCG TABLET (1,000 UNITS) 100 MCG PO (08:31)
[2025-08-24 08:39] VITALS: BP 95/41; PULSE 84
--- NOTE | 2025-08-24 09:50 | PCM.PN.DRR ---
Documented by User: Natividad Boyd 08/24/25 10:08 TCU RX Drug Regimen Review Subjective/Objective Subjective/Objective Subjective: TCU Admission. 85 YOM presented to ER with syncope. Hospitalized for syncope 2/2 pleural effusion, acute HFpEF, complicated by pneumonia, pericardial effusion. Admitted to TCU with debility for strengthening and rehabilitation. Objective: Allergies gluten Adverse Reaction (Verified 08/17/25 18:54) upset stomach/diarrhea lactose Adverse Reaction (Verified 08/17/25 18:54) upset stomach/diarrhea Current Medications Generic Name Dose Route Start Last Admin Trade Name Freq PRN Reason Stop Dose Admin Acetaminophen 1,000 mg 08/23/25 21:02 Acetaminophen 500 Mg Tablet PO Q6H PRN PRN Pain Score 1-10 Amiodarone HCl 200 mg 08/24/25 10:00 08/24/25 08:30 Amiodarone 200 Mg Tablet PO 200 mg DAILY ALCIDES Administration Apixaban 5 mg 08/23/25 22:00 08/24/25 08:30 Apixaban 5 Mg Tablet PO 5 mg BID ALCIDES Administration Atorvastatin Calcium 40 mg 08/23/25 22:00 08/23/25 20:20 Atorvastatin Calcium 40 Mg Tablet PO 40 mg QHS ALCIDES Administration Cholecalciferol 100 mcg 08/24/25 10:00 08/24/25 08:31 Cholecalciferol (Vit D3) 25 Mcg Tablet (1,000 Units) PO 100 mcg DAILY ALCIDES Administration Diltiazem HCl 120 mg 08/23/25 22:00 08/23/25 20:28 Diltiazem Cd 120 Mg Capsule PO 120 mg QHS ALCIDES Administration Protocol Famotidine 20 mg 08/24/25 10:00 08/24/25 08:32 Famotidine 20 Mg Tablet PO 20 mg DAILY ALCIDES Administration Furosemide 40 mg 08/24/25 10:00 Furosemide 40 Mg Tablet PO DAILY ALCIDES Protocol Isosorbide Mononitrate 30 mg 08/24/25 10:00 Isosorbide Mononitrate 30 Mg Tablet PO DAILY ALCIDES Protocol Losartan Potassium 100 mg 08/24/25 10:00 08/24/25 08:32 Losartan Potassium 100 Mg Tablet PO 100 mg DAILY ALCIDES Administration Protocol Magnesium Citrate 300 ml 08/23/25 21:02 Magnesium Citrate 300 Ml PO DAILY PRN Constipation Melatonin 3 mg 08/23/25 17:27 Melatonin 3 Mg Tablet PO QHS PRN INSOMNIA Metformin HCl 500 mg 08/24/25 08:00 08/24/25 08:31 Metformin (Xr) 500 Mg Tablet PO 500 mg DAILYCM ALCIDES Administration Metoprolol Succinate 50 mg 08/24/25 10:00 08/24/25 08:39 Metoprolol(Xl)Succ 50 Mg Tablet PO Not Given DAILY [facility] Protocol Montelukast Sodium 10 mg 08/23/25 22:00 08/23/25 20:22 Montelukast 10 Mg Tablet PO 10 mg QHS ALCIDES Administration Multivitamins/Minerals 1 cap 08/23/25 22:00 08/24/25 08:31 Multivitamin (Healthy Eyes) Capsule PO 1 cap BID ALCIDES Administration Senna/Docusate Sodium 1 tablet 08/23/25 22:00 08/24/25 08:40 Senna/Docusate Sodium 1 Tablet PO Not Given BID [facility] Sodium Chloride 10 - 40 ml 08/23/25 20:36 08/23/25 21:00 0.9% Saline Lock 10 Ml Syringe IV 10 ml UD PRN Administration SALINE FLUSH Tamsulosin HCl 0.4 mg 08/23/25 22:00 08/24/25 08:30 Tamsulosin Hcl 0.4 Mg Capsule PO 0.4 mg BID ALCIDES Administration Tuberculin PPD 0.1 ml 08/24/25 10:00 Tuberculin,Purif.Prot.Deriv. 50 Tu/Ml Vial ID 08/24/25 10:01 X1 ONE Tuberculin PPD 0.1 ml 08/31/25 10:00 Tuberculin,Purif.Prot.Deriv. 50 Tu/Ml Vial ID 08/31/25 10:01 X1 ONE Vitamin E 400 units 08/24/25 10:00 08/24/25 08:33 Vitamin E 400 Units Capsule PO 400 units DAILY ALCIDES Administration Problem List GERD (gastroesophageal reflux disease) (Acute) BPH (benign prostatic hyperplasia) (Acute) Coronary artery disease (Acute) Type 2 diabetes mellitus with hyperglycemia (Acute) Acute heart failure with preserved ejection fraction (HFpEF) (Acute) Pneumonia (Acute) Syncope (Acute) Debility (Acute) Pericardial effusion (Acute) Pleural effusion (Acute) Atrial fibrillation (Acute) Essential hypertension (Chronic) Hyperlipidemia (Chronic) Vital Signs Temp Pulse Resp BP Pulse Ox O2 Del Method O2 Flow Rate 97.3 F L 84 16 95/41 L 99 Nasal Cannula 2 08/23/25 14:29 08/24/25 08:39 08/23/25 20:30 08/24/25 08:39 08/23/25 20:30 08/23/25 20:30 08/24/25 08:34 Oxygen Flow Rate (L/min) 2 Oxygen Delivery Method Nasal Cannula Weight: 106.339 kg Body Mass Index (BMI) 33.6 Sodium 134 mmol/L (133-145) 08/24/25 06:20 Potassium 4.7 mmol/L (3.3-5.1) 08/24/25 06:20 Chloride 99 mmol/L (98-108) 08/24/25 06:20 Carbon Dioxide 18.0 mmol/L (21.0-32.0) L 08/24/25 06:20 Anion Gap 16 (5-15) H 08/24/25 06:20 BUN 54 mg/dL (4-19) H 08/24/25 06:20 Creatinine 1.63 mg/dL (0.70-1.20) H 08/24/25 06:20 Est GFR (MDRD) Non-Af 41 (>60) L 08/24/25 06:20 BUN/Creatinine Ratio 33.3 RATIO (10-20) H 08/24/25 06:20 Glucose 121 mg/dL (70-99) H 08/24/25 06:20 Assessment/Plan: 1. Pain: acetaminophen 1000mg PO Q6H PRN pain 1-10. Resident hasn't received prn pain doses since admission. Monitor pain scores before/after prn administration for response, PRN pain medication usage, symptoms of pain/resident distress and ability to participate in therapy. 2. Bowel: senna/docusate 1T PO BID and magnesium citrate 300mL PO daily PRN constipation. Resident hasn't received prn doses since admission. Last document bowel movement: 08/22/25. Monitor for usage of prn medications, abdominal pain, frequency of bowel movements, diarrhea. Recommend holding bowel regimen if resident develops diarrhea. 3. Atrial fibrillation/chronic HFpEF: metoprolol succinate 50mg PO daily, diltiazem CD 120mg PO QHS, amiodarone 200mg PO daily, losartan 100mg PO daily, isosorbide mononitrate 30mg PO daily, furosemide 40mg PO daily and apixaban 5mg PO BID. Please consider adding hold parameters as the last BP was 95/41. Thanks. Please continue to monitor BP (107/67-95/41), HR (range 80-84), edema, potassium (last 4.7mmol/L), sodium (last 134mmol/L), cough, edema, S/S of bleeding, hemoglobin (last 12.6g/dL) and renal function. 4. Diabetes mellitus II: metformin XR 500mg PO daily. Please consider ordering a hemoglobin A1c as the last was 5.5% from 01/17/25. Thanks. Please continue to monitor for S/S of hypoglycemia, glucose (last 121mg/dL), GFR (last 41mL/min) and diarrhea. 5. Hyperlipidemia: atorvastatin 40mg PO QHS. Please continue to monitor lipid panel (last 08/18/25), LFTs (last 08/18/25) and muscle pain. 6. GERD: famotidine 20mg PO daily. Please continue to monitor for S/S of GERD and renal function. 7. Asthma: montelukast 10mg PO QHS. Please continue to monitor for S/S of asthma. 8. BPH: tamsulosin 0.4mg PO BID. Please continue to monitor BP and S/S of BPH. 9. Insomnia: melatonin 3mg PO QHS PRN insomnia. No PRN doses have been given. Please continue to monitor for PRN usage and insomnia. 10. Vitamin D deficiency: cholecalciferol 100mcg PO daily. Please consider ordering a vitamin D level as there is no level in the chart. Thanks. 11. Macular degeneration/nutrition: healthy eyes 1C PO BID and vitamin E 400units PO daily. Please continue to monitor vision. Assessment/Plan for indications treated with psychotropic medications: Resident is not prescribed scheduled or prn psychotropic medications at the time of this drug regimen review. Medical chart and medication regimen reviewed. The following medication irregularities or issues were identified: 1. Metoprolol succinate 50mg PO daily, diltiazem CD 120mg PO QHS, amiodarone 200mg PO daily, losartan 100mg PO daily, isosorbide mononitrate 30mg PO daily, furosemide 40mg PO daily and apixaban 5mg PO BID. Please consider adding hold parameters as the last BP was 95/41. Thanks. 2. Metformin XR 500mg PO daily. Please consider ordering a hemoglobin A1c as the last was 5.5% from 01/17/25. Thanks. 3. Cholecalciferol 100mcg PO daily. Please consider ordering a vitamin D level as there is no level in the chart. Thanks. Date Date of Note: 08/24/25 Documented by User: Dr. Arthur Ortiz MD 08/24/25 11:02 TCU RX Drug Regimen Review Provider Comments Provider responsibility Provider Comments to Recommendations by Pharmacy Agree
[2025-08-24 10:00] VITALS: BP 94/41; PULSE 84; RESP 18; TEMP 36.4; O2SAT 97
--- NOTE | 2025-08-24 10:29 | NURSING ---
audience coordinator Note; Activity Asset: Jace Rivera is independent in his choice of daily activities. He prefers to be called [place]. Ck has his tablet he uses for internet, games and reading. He is part of the [employer] in [place] where the , and more for the [employer]. His family, friends and jewish will visit and bring him items he may need. Staff will remind him of weekly activities and respect his right to say no.
--- NOTE | 2025-08-24 10:45 | MDS.RN ---
MDS entry tracker complete,pain assesed.
[2025-08-24] MEDS: Tuberculin,Purif.prot.deriv. 50 TU/ML Vial 0.1 ML ID (11:29)
[2025-08-24 17:22] VITALS: BP 119/85; O2SAT 94
[2025-08-24] MEDS: MELATONIN 3 MG TABLET PO (20:46)
[2025-08-25 08:52] VITALS: BP 95/53; PULSE 84; RESP 17; TEMP 36.6; O2SAT 98
[2025-08-25] MEDS: metFORMIN (XR) 500 MG Tablet PO (08:54)
[2025-08-25] MEDS: APIXABAN 5 MG TABLET PO ×2 (08:55→20:20)
[2025-08-25] MEDS: Multivitamin (Healthy Eyes) Capsule 1 CAP PO ×2 (08:56→20:20)
[2025-08-25 08:57] VITALS: BP 95/53; PULSE 84
[2025-08-25] MEDS: Cholecalciferol (VIT D3) 25 MCG TABLET (1,000 UNITS) 100 MCG PO (08:58)
[2025-08-25] MEDS: Glucerna Shake 120 ML LIQUID PO (09:03)
[2025-08-25] MEDS: Senna/Docusate Sodium 1 Tablet PO (09:03)
[2025-08-25 09:11] LABS: Vitamin D,25 Hydroxy 25.6 ng/mL (30-100)
[2025-08-25 10:00] VITALS: PULSE 80; RESP 19; O2SAT 98
[2025-08-25] MEDS: 0.9% Saline Lock 10 ML Syringe IV (12:26)
[2025-08-25 16:00] VITALS: BP 81/54; PULSE 84; RESP 17; O2SAT 98
--- NOTE | 2025-08-25 17:52 | NURSING ---
pt blood pressure reading is 81/54 aware, new orders placed via telephone read back
--- NOTE | 2025-08-25 18:00 | RAD_ITS ---
PROCEDURE: CHEST PA AND LATERAL 08/25/2025 REASON FOR EXAM: CONCERN FOR FLUID BUILD UP TECHNIQUE: Procedure Code: RADCXR Modality: DX Procedure: CHEST PA AND LATERAL COMPARISON: 08/20/2025 FINDINGS: Lungs/Pleura: Small bilateral pleural effusions/atelectasis, greater on the left. Underlying consolidation not entirely excluded. No pneumothorax. Heart/Mediastinum: Cardiomegaly. Aortic arch calcification. Bones/Soft tissues: Degenerative changes of the spine. RAD/Chest PA and Lateral IMPRESSION: Cardiomegaly, with small bilateral pleural effusions/atelectasis. Reading Location: [id number]
--- NOTE | 2025-08-25 18:02 | NURSING ---
pt taken down via bed for chest xray
[2025-08-25] MEDS: 0.9% Normal Saline (500mL Bag) 500 ML 999 ML IV (18:23)
[2025-08-25 18:57] VITALS: BP 91/57
[2025-08-25 20:18] VITALS: BP 90/65
[2025-08-26 07:30] VITALS: O2SAT 99
--- NOTE | 2025-08-26 08:01 | CPS ---
decreased pt to 2L NC at this time
[2025-08-26 08:42] VITALS: BP 107/68; PULSE 86; RESP 19; TEMP 36.4; O2SAT 99
[2025-08-26] MEDS: metFORMIN (XR) 500 MG Tablet PO (08:43)
[2025-08-26] MEDS: Glucerna Shake 120 ML LIQUID PO ×2 (08:44→20:35)
[2025-08-26] MEDS: Multivitamin (Healthy Eyes) Capsule 1 CAP PO ×2 (08:44→20:35)
[2025-08-26] MEDS: APIXABAN 5 MG TABLET PO ×2 (08:44→20:34)
[2025-08-26 08:46] VITALS: BP 107/68; PULSE 86
[2025-08-26] MEDS: Cholecalciferol (VIT D3) 25 MCG TABLET (1,000 UNITS) 100 MCG PO (08:46)
[2025-08-26] MEDS: Metoprolol(XL)Succ 50 MG Tablet PO (08:46)
--- NOTE | 2025-08-26 15:06 | NURSING ---
sutures removed per order from left eyebrow, pt tolerated well.
--- NOTE | 2025-08-26 18:45 | NURSING ---
updated on low bp readings no new orders placed
[2025-08-26 20:25] VITALS: BP 97/71; PULSE 76; RESP 20; O2SAT 99
[2025-08-26] MEDS: MELATONIN 3 MG TABLET PO (20:37)
[2025-08-26] MEDS: 0.9% Saline Lock 10 ML Syringe IV (20:39)
[2025-08-26 21:06] VITALS: PULSE 76; RESP 20; O2SAT 99
[2025-08-27 06:12] VITALS: PULSE 82; RESP 20
[2025-08-27] MEDS: metFORMIN (XR) 500 MG Tablet PO (08:23)
[2025-08-27] MEDS: Multivitamin (Healthy Eyes) Capsule 1 CAP PO ×2 (08:25→20:18)
[2025-08-27] MEDS: APIXABAN 5 MG TABLET PO ×2 (08:25→20:17)
[2025-08-27] MEDS: Cholecalciferol (VIT D3) 25 MCG TABLET (1,000 UNITS) 100 MCG PO (08:27)
[2025-08-27] MEDS: Glucerna Shake 120 ML LIQUID PO (08:29)
[2025-08-27] MEDS: 0.9% Saline Lock 10 ML Syringe IV (08:37)
[2025-08-27 08:40] VITALS: BP 94/66; PULSE 70; RESP 24; TEMP 36.1; O2SAT 97
[2025-08-27 09:24] LABS: Anion Gap 19 (5-15); BUN 89 mg/dL (4-19); BUN/Creat Ratio 20.1 RATIO (10-20); Calcium,Total 9.2 mg/dL (7.6-11.0); Carbon Dioxide 16.9 mmol/L (21.0-32.0); Chloride 95 mmol/L (98-108); Estimated Creatinine Clearance 14.89 ml/min (50-250); Glucose 114 mg/dL (70-99); Potassium 5.8 mmol/L (3.3-5.1)
--- NOTE | 2025-08-27 09:33 | NURSING ---
SODIUM 131, POTASSIUM 5.8, NOTIFIED BY TEX. POP AWARE.
--- NOTE | 2025-08-27 09:35 | US_ITS ---
PROCEDURE: KIDNEY AND BLADDER 08/27/2025 REASON FOR EXAM: ACUTE KIDNEY INJURY TECHNIQUE: Procedure Code: USKI Modality: US Procedure: KIDNEY AND BLADDER COMPARISON: None FINDINGS: The right kidney measures 10.5 x 6.0 x 5.9 cm in the left 11.0 x 6.0 x 6.1 cm. There is a 4.1 x 3.7 x 4.2 cm cyst in the midpole of the left kidney. There is no visible hydronephrosis on the right or left. There is no visible stone in the right or left. Bladder volume = 145.6 cc, wall thickness = 4 mm. The bladder has a mildly trabeculated appearance. There is no visible mass. There is no free fluid. The right and left ureteral jets are visualized. US/Kidney and Bladder IMPRESSION: There is a 4.1 x 3.7 x 4.2 cm cyst in the midpole of the left kidney. The bladder has a mildly trabeculated appearance. Reading Location: [facility]
[2025-08-27 10:40] VITALS: BP 95/65; PULSE 78
--- NOTE | 2025-08-27 10:59 | CON.PCM.RE_ITS ---
Assessment & Plan Assessment/Plan (1) ERYN (acute kidney injury): (2) Hyperkalemia: (3) Hyponatremia: PLAN: Plan This is a pleasant 84-year-old male with past medical history significant for hypertension, hyperlipidemia, A-fib (underwent cardioversion 07/23/2025), history of AURELIO (does not wear CPAP), diabetes mellitus type 2, anxiety/depression, BPH with obstructive uropathy, coronary artery status post PCI who had been admitted to [facility] on 08/17 after he presented to the ER with complaints of syncopal event and dyspnea with exertion. Patient was admitted for pleural effusions (underwent thoracentesis with 1.4 L fluid removed), and questionable heart failure with preserved EF. Patient then transferred to TCU for rehab. Nephrology consulted today in view of elevated creatinine. Baseline creatinine around 1 mg/dL. Creatinine had been ranging around 1.2-1.3mg/dL from hospital admission to August 22, over the last few days serum creatinine slowly rising and today serum creatinine 4.4, potassium 5.8, bicarb 16.9 and sodium 131. Per staff patient's appetite has been very poor. Patient reports appetite has been poor has had intermittent nausea and episode of loose stools yesterday. Patient has been making urine. Initially patient was receiving IV Lasix at time of hospital admission then transitioned to oral Lasix. Today Lasix has been stopped, metformin also stopped. Patient started on gentle IV fluids. Noncontrast CT this morning of abdomen and pelvis did not show any renal stones or hydronephrosis. Patient just returned from having renal ultrasound, report pending. Will obtain UA/urine culture and urine lytes. Possible rise in serum creatinine from overdiuresis along with poor oral intake and multiple episodes of hypotension. Recommend to continue holding Lasix and continue with gentle IV fluids. Will also add low potassium diet restrictions. Patient is to receive a dose of SPS today. Also reviewed foods high in potassium with patient recommend to avoid and/or limit for now. No acute indication for renal placement therapy. Mild hypovolemic, hyponatremia with normal baseline sodium levels. Sodium has been normal during this hospitalization. Sodium 131 today. Hyponatremia possibly from poor oral intake. Labs ordered for the morning. Further orders forthcoming as hospitalization evolves, thank you for allowing us to participate in the care of Mr. Mcnair. Assessment and plan reviewed with Dr. Guerra. HPI Consult Data Date of Consult: 08/27/25 HPI Narrative HPI Narrative: RAYA CMNAIR, is a 85 M who is in TCU unit for rehab after recent hospitalization. Patient has past medical history significant for hypertension, hyperlipidemia, A-fib (underwent cardioversion 07/23/2025), history of AURELIO, diabetes mellitus type 2, anxiety/depression, BPH with obstructive uropathy, coronary artery status post PCI who had been admitted to [facility] on 08/17 after he presented to the ER with complaints of syncopal event and dyspnea with exertion. Patient was admitted for pleural effusions, and questionable heart failure with preserved EF. Patient had left thoracentesis with 1.4 L fluid removed. Echo from 08/18/2025: Normal LV size, left ventricular systolic function normal, EF 60%, moderate pericardial effusion, no echocardiographic indications of cardiac tamponade. Patient was transferred to TCU 08/23. Nephrology consulted today in view of elevated creatinine. Reviewing past creatinine trends baseline creatinine had been ranging around 1 mg/dL. Hospital mission on 08/17 creatinine 1.37, his creatinine stayed around 1.2-1.3 from [id number]. On 08/23 creatinine 1.5, 08/24 creatinine 1.6, no labs until today serum creatinine 4.4, potassium 5.8, sodium 131. Patient had been receiving IV Lasix once admitted to [facility] then switched to oral Lasix. Lasix today is on hold, metformin on hold. Patient was started on gentle IV fluids. Patient reports appetite has been very poor even over the last few weeks and during his hospital stay. States he feels sleepy as he has hard time sleeping through the night. Denies any vomiting but states has been nauseous and also had episode of loose stools yesterday. Patient reports he is voiding as normal. Denies any abdominal fullness or pain. [facility] Medical History (Updated 08/27/25 @ 11:08 by TAO Bell) Atrial fibrillation Hyperlipidemia Skin cancer Pneumonia Heart disease Gastrointestinal problem Gall stones Cataract Bone fracture Allergies Type 2 diabetes mellitus Hypertension Celiac disease Anxiety Coronary artery disease Hypertension Atherosclerotic heart disease of [place] coronary artery without angina pectoris Home Medications ?Medication ?Instructions ?Recorded ?Last Taken ?Type aspirin 81 mg tablet,delayed 81 mg PO DAILY@0800 [facility] 03/18/21 08/23/25 History release cholecalciferol (vitamin D3) 50 4,000 unit PO DAILY JOHN PPLEMENT 03/18/21 03/18/21 History mcg (2,000 unit) capsule vit C 250 mg-vit E 90 mg-zinc 40 1 cap PO BID [facility] 03/18/21 03/18/21 History mg-copper 1 [id number] capsule atorvastatin 40 mg tablet 40 mg PO QHS cholesterol #90 tabs 04/11/21 08/22/25 Rx isosorbide mononitrate 30 mg 30 mg PO DAILY BP #90 tab s 04/11/21 Unknown Rx tablet,extended release 24 hr vitamin E mixed 400 unit capsule 400 unit PO DAILY sup plement 02/16/22 Unknown History montelukast 10 mg tablet 10 mg PO QHS breathing 10/1908/22/25 History valsartan 320 mg tablet 320 mg PO DAILY BP 10/19/23 08/22/25 History tamsulosin 0.4 mg capsule 0.4 mg PO BID BPH 12/26/24 0 08/23/25 History famotidine 20 mg tablet 20 mg PO DAILY GERD #90 tabs 01/15/25 08/23/25 Rx dulaglutide 3 mg/0.5 mL 3 mg (0.5 mL) subcut QWEEK S OB #2 06/28/25 Unknown Rx subcutaneous pen injector mL (Trulicity) metformin 500 mg tablet,extended 500 mg PO DAILY Blood Glucose 06/28/25 Unknown History release 24 hr apixaban 5 mg tablet (Eliquis) 5 mg PO BID Blood thinn er #180 tabs 07/12/25 08/23/25 Rx amiodarone 200 mg tablet 200 mg PO DAILY BP #30 tabs 08/02/25 08/23/25 Rx metoprolol succinate 50 mg 50 mg PO DAILY BP #90 tabs 08/02/25 08/23/25 Rx tablet,extended release 24 hr diltiazem HCl 120 mg 120 mg PO QHS BP 08/17/25 Un known History capsule,extended release 24 hr furosemide 40 mg tablet (Lasix) 40 mg PO DAILY Fluid r etention #30 08/23/25 Unknown Rx tabs Allergy/AdvReac Type Severity Reaction Status Date / Time gluten AdvReac upset Verified 08/17/25 18:54 stomach/diarrhea lactose AdvReac upset Verified 08/17/25 18:54 stomach/diarrhea Family History Mother Thyroid disorder Father Myocardial infarction Hypertension Heart disease Surgical History Hx of melanoma excision History of cholecystectomy Presence of coronary angioplasty implant and graft (~04/03/21) Presence of stent in coronary artery (~04/03/21) Social History household members: none Smoking Status: Former smoker how long ago did patient quit smokin years ago alcohol intake: current alcohol intake frequency: holidays/special occasions only substance use type: does not use caffeine: Yes Type: coffee Number of servings: 2 and tea Number of servings: 1 what type of physical activity do you participate in: other details: cardio frequency: 3-4 times per week ROS ROS Narrative As per HPI, otherwise negative Physical Exam Narrative Alert and oriented x 3, no apparent distress S1, S2, RRR Lungs sound clear anteriorly. No wheezes, rhonchi or rales noted Abdomen soft, nontender Trace edema bilateral lower legs Lab / Micro Data 08/24/25 06:20 08/27/25 08:00 Labs: Laboratory Results - last 24 hr 08/27/25 05:53: POC Glucose 109 H 08/27/25 08:00: Sodium 131 L, Potassium 5.8 H, Chloride 95 L, Carbon Dioxide 16.9 L, Anion Gap 19 H, BUN 89 H, Creatinine 4.43 H, Estim Creat Clear Calc 14.89 L, Est GFR (MDRD) Non-Af 12 L, BUN/Creatinine Ratio 20.1 H, Glucose 114 H, Calcium 9.2
[2025-08-27 11:07] LABS: Osmolality, Serum 311 mOsm/KG (280-301)
[2025-08-27] MEDS: 0.9% Normal Saline (1000mL) 1,000 ML 60 ML IV (11:40)
[2025-08-27 12:13] LABS: Mucous, Urine 0 SEEN /hpf (<or=2+); Red Blood Cells-Urine 0 SEEN /hpf (0-5); Squamous Epithelial Cells - UA 0 SEEN /hpf (0-5)
[2025-08-27 12:16] LABS: Color, Urine Yellow (Yellow); Glucose, Dipstick Normal (Normal); Ketone-Dipstick 5 mg/dl (Negative); Leukocyte Esterase-Dipstick 25 /ul (Negative); Nitrite-Dipstick Negative (Negative); Occult Blood-Urine Negative /ul (Negative); Protein-Dipstick 30 mg/dl (Negative); Specific Gravity, Urine 1.025 (1.002-1.030)
[2025-08-27 12:17] LABS: Urine Bilirubin Dipstick 1 mg/dL (Negative)
[2025-08-27 13:11] VITALS: O2SAT 95
[2025-08-27 13:19] LABS: Osmolality, Urine 402 mOsm/KG
--- NOTE | 2025-08-27 14:57 | NURSING ---
Addendum entered by Jonas Powell 08/27/25 15:13: KAYEXALATE ALSO GIVEN DUE TO HIGH POTASSIUM Original Note: NEW ORDERS FROM FOR NS AT 60ML/HR, BLADDER SCAN PRN, KIDNEY ULTRA SOUND/CT ABDOMINAL AND PELVIS. URINE SAMPLE,LAB DRAW. DR. CHAPARRO IN TO SEE PT ALSO. NEW SALINE LOCK TO LT AC DUE TO LT FORE INFILTRATED. RN AWARE
--- NOTE | 2025-08-27 17:42 | NURSING ---
PT AND DAUGHTER UPDATED ON TEST RESULTS AND FOR PT TO HAVE A THORACENTESIS.
[2025-08-28] MEDS: 0.9% Normal Saline (1000mL) 1,000 ML 60 ML IV (05:15)
[2025-08-28 07:40] VITALS: O2SAT 95
[2025-08-28 07:44] LABS: Anion Gap 20 (5-15); BUN 96 mg/dL (4-19); BUN/Creat Ratio 17.7 RATIO (10-20); Calcium,Total 8.9 mg/dL (7.6-11.0); Carbon Dioxide 15.7 mmol/L (21.0-32.0); Chloride 95 mmol/L (98-108); Estimated Creatinine Clearance 12.17 ml/min (50-250); Glucose 114 mg/dL (70-99); Potassium 5.0 mmol/L (3.3-5.1)
[2025-08-28 09:48] VITALS: PULSE 93
[2025-08-28] MEDS: Metoprolol(XL)Succ 50 MG Tablet PO (09:48)
[2025-08-28] MEDS: Multivitamin (Healthy Eyes) Capsule 1 CAP PO (09:48)
[2025-08-28] MEDS: Cholecalciferol (VIT D3) 25 MCG TABLET (1,000 UNITS) 100 MCG PO (09:49)
[2025-08-28 10:00] VITALS: BP 104/68; PULSE 93; RESP 22; TEMP 35.5; O2SAT 97
--- NOTE | 2025-08-28 10:20 | CASEMGMT ---
Social Work SW notified by this AM that pt's creatine is high, nephrology is consulted, pt is in kidney failure and will likely need dialysis. Pt is also in heart failure, per . Pt can either receive treatment or elect hospice. Notified by RN that she is unable to get a body temperature, pt is declining and Dr. Ortiz requested ER transfer, if pt wants to pursue treatment. - CATHY spoke with pt at bedside. Granted permission to speak with dtr present in room. CATHY explained pt is medically declining and inquired about pt's goals of care - i.e. transfer to ER and receive recommended treatment or elect hospice and receive comfort care. Pt clearly states he wants treatment and asked for dtr's opinion. Dtr voiced this was pt's decision and the children will support that. Pt again voiced he wants treatment. SW provided support and asked if dtr plans to remain with pt throughout the day. Dtr confirmed. CATHY appreciative and will follow as appropriate. Pt appreciative. - CATHY updated RN. order to send to ER. Sylvie Swan PAIN MANAGEMENT SPECIALIST ENERGY ASSISTANT
--- NOTE | 2025-08-28 10:30 | NURSING ---
Pt Vitals this AM BP 104/68 Pulse 93 SpO2 93% 2 L NC Temp 95.[address] Ortiz updated and N.O. received to send pt to [facility]. report called Daughter in room updated.
--- NOTE | 2025-08-28 14:44 | PCM.DC.SUM ---
Providers Date of Admission: 08/23/25 Primary Care Physician: Dr. Jayesh Raphael Jr., MD Consultations 08/27/25 09:35 Consult: Nephrology Routine Consulting Provider: Rob Guerra Reason for Consult: acute kidney injury EMERGENT Consult: No MD Notified: Yes Date Notified: 08/27/25 Time Notified: 09:35 Method of Notification: Verbal Reason For Visit: SYNCOPE Diagnosis Discharge Diagnosis (1) ERYN (acute kidney injury): Status: Acute Code(s): N17.9 - Acute kidney failure, unspecified (2) Hyperkalemia: Status: Acute Code(s): E87.5 - Hyperkalemia (3) Hyponatremia: Status: Acute Code(s): E87.1 - Hypo-osmolality and hyponatremia Plan 85 year old male with below past medical history hospitalized for syncope 2/2 pleural effusion, acute HFpEF, complicated by pneumonia, pericardial effusion, admitted to TCU with debility, here for rehabilitation, strengthening, prior to discharge home alone. Debility - PT/OT. Pain - Tylenol 1000mg q6 prn pain (1-10). Bowel - senna/colace 1 tablet bid, Magnesium citrate 300mL daily prn. Adult immunization - Administer pneumonia vaccine, covid vaccine, flu vaccine as appropriate. DVT prophylaxis - Eliquis. Atrial Fibrillation - Metoprolol succinate 50mg daily, Diltiazem CD 120mg qhs, Amiodarone 200mg daily, Eliquis 5mg bid. Hyperlipidemia - Atorvastatin 40mg qhs. Vitamin D deficiency - D3 100mcg daily. GERD - Famotidine 20mg daily. Chronic HFpEF - Metoprolol succinate 50mg daily, Losartan 100mg daily, Isosorbide [place] 30mg daily, Furosemide 40mg daily. Insomnia - Melatonin 3mg qhs prn. Diabetes Mellitus II - Metformin XR 500mg daily. Asthma - Singulair 10mg qhs. Macular degeneration - Healthy Eyes 1 capsules bid. BPH - Tamsulosin 0.4mg bid. Medications at Discharge Home Medications aspirin 81 mg tablet,delayed release 81 mg PO DAILY@0800 [facility] 03/18/21 cholecalciferol (vitamin D3) 50 mcg (2,000 unit) capsule 4,000 unit PO DAILY SUPPLEMENT 03/18/21 vit C 250 mg-vit E 90 mg-zinc 40 mg-copper 1 [id number] capsule 1 cap PO BID EYE HEALTH 03/18/21 atorvastatin 40 mg tablet 40 mg PO QHS cholesterol #90 tabs 04/11/21 isosorbide mononitrate 30 mg tablet,extended release 24 hr 30 mg PO DAILY BP #90 tabs 04/11/21 vitamin E mixed 400 unit capsule 400 unit PO DAILY supplement 02/16/22 montelukast 10 mg tablet 10 mg PO QHS breathing 10/19/23 valsartan 320 mg tablet 320 mg PO DAILY BP 10/19/23 tamsulosin 0.4 mg capsule 0.4 mg PO BID BPH 12/26/24 famotidine 20 mg tablet 20 mg PO DAILY GERD #90 tabs 01/15/25 dulaglutide 3 mg/0.5 mL subcutaneous pen injector (Trulicity) 3 mg (0.5 mL) subcut QWEEK SOB #2 mL 06/28/25 metformin 500 mg tablet,extended release 24 hr 500 mg PO DAILY Blood Glucose 06/28/25 apixaban 5 mg tablet (Eliquis) 5 mg PO BID Blood thinner #180 tabs 07/12/25 amiodarone 200 mg tablet 200 mg PO DAILY BP #30 tabs 08/02/25 metoprolol succinate 50 mg tablet,extended release 24 hr 50 mg PO DAILY BP #90 tabs 08/02/25 diltiazem HCl 120 mg capsule,extended release 24 hr 120 mg PO QHS BP 08/17/25 furosemide 40 mg tablet (Lasix) 40 mg PO DAILY Fluid retention #30 tabs 08/23/25 Hospital Course Operations None Procedures Thoracentesis Summary of Care Provided Minutes Spent on Discharge: 35 Hospital Course: 85 year old male with below past medical history hospitalized for syncope 2/2 pleural effusion, acute HFpEF, complicated by pneumonia, pericardial effusion, admitted to TCU with debility, here for rehabilitation, strengthening, prior to discharge home alone. 08/27/2025 Miguel with worsening kidney function, nephrology consulted, CT a/p no contrast done, renal ultrasound done, gentle iv fluids, nephrotoxic medications held. 08/28/2025 Kidney function worse, patient short of breath. Discharge to [facility] Emergency Department for evaluation, admission to hospital. Physical Exam Const alert General Appearance: cooperative HEENT normocephalic Eyes PERRL and EOMs intact bilaterally Neck supple, no JVD and no carotid bruits Resp normal respiratory effort, normal air movement and clear to auscultation bilaterally Auscultation: diminished lung sounds bilateral lower Cardio regular rate and regular rhythm GI normal to inspection, nondistended, normoactive bowel sounds, non-tender and non-distended Extremity normal capillary refill General Extremity: Negative for edema Skin no rashes or lesions noted General Skin Exam: no breakdown Psych affect normal Appearance: appropriate Weight / BMI Weight Weight: 106.339 kg Body Mass Index (BMI) 33.6 ABG / Lab / Microbiology Data 08/24/25 06:20 08/28/25 06:30 Laboratory: Laboratory Results - last 24 hr 08/28/25 06:10: POC Glucose 121 H 08/28/25 06:30: Sodium 130 L, Potassium 5.0, Chloride 95 L, Carbon Dioxide 15.7 L, Anion Gap 20 H, BUN 96 H, Creatinine 5.42 H, Estim Creat Clear Calc 12.17 L, Est GFR (MDRD) Non-Af 10 L, BUN/Creatinine Ratio 17.7, Glucose 114 H, Calcium 8.9 D/C Instructions Discharge Activity: Return to Normal Activity, May Shower and Use Walker Weight Bearing Status: Weight bearing as tolerated Call your doctor if you observe: Fever of 101 or Higher, Inability to urinate, Inability to have a bowel movement, Shortness of breath, Dizziness, Fainting spells, Swelling in the ankles, Chest pain and Uncontrolled pain DC O2, CPAP, BIPAP Needs Home O2 Discharge instructions: No Additional Instructions: Discharge to [facility] Emergency Department for evaluation, admission to hospital. Meaningful Use Info Meaningful Use Meaningful Use Diagnoses (Choose all that apply): None applicable Discharge Plan Admission Admit Date/Time: 08/23/25 14:13 Primary Reason for Your Visit: Debility. Attending Provider: Arthur Ortiz Chi Primary Care Provider: Jayesh Raphael Jr. Consulting Providers: Rob Guerra Instructions Additional Instructions / Restrictions: Discharge to [facility] Emergency Department for evaluation, admission to hospital. Discharge Orders/Prescriptions Prescriptions: No Action atorvastatin 40 mg tablet 40 mg PO QHS Qty: 90 3RF isosorbide mononitrate 30 mg tablet extended release 24 hr 30 mg PO DAILY Qty: 90 3RF vitamin E mixed 400 unit capsule 400 unit PO DAILY valsartan 320 mg tablet 320 mg PO DAILY metformin 500 mg tablet extended release 24 hr 500 mg PO DAILY montelukast 10 mg tablet 10 mg PO QHS Patient Comments: Take 1 tablet by mouthcdaily at bedtime. tamsulosin 0.4 mg capsule 0.4 mg PO BID famotidine 20 mg tablet 20 mg PO DAILY Qty: 90 2RF amiodarone 200 mg tablet 200 mg PO DAILY Qty: 30 12RF metoprolol succinate 50 mg tablet extended release 24 hr 50 mg PO DAILY Qty: 90 3RF aspirin 81 MG tablet 81 mg PO DAILY@0800 cholecalciferol (vitamin D3) 2,000 UNIT capsule 4,000 unit PO DAILY vit C,C-Bx-zvaie-lutein-zeaxan 1 EACH capsule 1 cap PO BID diltiazem HCl 120 mg capsule,extended release 24hr 120 mg PO QHS furosemide [Lasix] 40 mg tablet 40 mg PO DAILY Qty: 30 0RF Trulicity 3 mg/0.5 mL pen injector 3 mg subcut QWEEK Qty: 2 5RF Eliquis 5 mg tablet 5 mg PO BID Qty: 180 3RF Referrals / Follow Up: María Machuca MD [Med Staff - Active Staff, Cardiology] Jayesh Raphael Jr., MD [Primary Care Provider, Internal Medicine] Disposition Disposition (needs filled in before D/C Order can be placed): Acute Care Hospital
--- NOTE | 2025-09-03 12:29 | MDS.RN ---
Information for the MDS was obtained from review of the clinical record, interview of resident, staff, and direct observation of resident?s care.
== END 2025-08-28 10:50 | disposition short-term general hospital (02) | DRG 291 ==
PROVIDERS: Nurse Practitioner Adult Health; Admitting Provider Family Medicine Geriatric Medicine; PCP Emergency Medicine; Referring Provider Family Medicine Geriatric Medicine; Visit Provider Family Medicine Geriatric Medicine
DX: I11.0 Hypertensive heart disease with heart failure (principal); I50.33 Acute on chronic diastolic (congestive) heart failure; J18.9 Pneumonia, unspecified organism; I31.39 Other pericardial effusion (noninflammatory); J91.8 Pleural effusion in other conditions classified elsewhere; E87.1 Hypo-osmolality and hyponatremia; N13.8 Other obstructive and reflux uropathy; N17.9 Acute kidney failure, unspecified; Z79.01 Long term (current) use of anticoagulants; E11.65 Type 2 diabetes mellitus with hyperglycemia; J45.909 Unspecified asthma, uncomplicated; I48.91 Unspecified atrial fibrillation; I25.10 Atherosclerotic heart disease of native coronary artery without angina pectoris; E55.9 Vitamin D deficiency, unspecified; E78.5 Hyperlipidemia, unspecified; K21.9 Gastro-esophageal reflux disease without esophagitis; H35.30 Unspecified macular degeneration; E87.5 Hyperkalemia; G47.33 Obstructive sleep apnea (adult) (pediatric); Z79.899 Other long term (current) drug therapy; Z87.891 Personal history of nicotine dependence; Z95.5 Presence of coronary angioplasty implant and graft; Z79.84 Long term (current) use of oral hypoglycemic drugs; Z79.85 Long-term (current) use of injectable non-insulin antidiabetic drugs; N40.0 Benign prostatic hyperplasia without lower urinary tract symptoms; Z79.82 Long term (current) use of aspirin; N40.1 Benign prostatic hyperplasia with lower urinary tract symptoms
CPT/HCPCS: 36415; 71046; 76770; 80048; 81001; 82306; 82436; 82962; 83036; 83930; 83935; 84133; 84300; 85025; 87086; 97110; 97162; 97166; 97530; 97535; 97802; A4216

== ENCOUNTER → 2025-08-27 | Outpatient (CLI) | payer MEDICARE, OTHER, SELFPAY ==
[2021-07-11 09:10] VITALS: BMI 34.9
--- OUTSIDE RECORDS SUMMARY | 2025-08-02 15:47 | XMS RPT_ITS ---
Author Name Auto Generated Organization OHIP Care Team Providers Care Surgery Manager Name Role Phone CORRIE NGUYEN Attending Unavailable [...] DATE TYPE CONDITION / CODE ATTENDING STATUS [facility] 07/05/2025 Active Established Kathi ent / UNK(Unknown) JOSE RAMON ROBERSON Active [facility] 06/14/2025 Active Fever, unspecifi ed fever cause / R50.9(ICD-10) KRIS SALDANA Active [facility] 06/14/2025 Active URI, acute / J06.9(ICD-10) KRIS SALDANA Active [facility] 06/14/2025 Active Dyspnea, unspeci fied type / R06.00(ICD-10) KRIS SALDANA Active [facility] 06/14/2025 Active Chest pain, unsp ecified type / R07.9(ICD-10) LES KRIS Active [facility] 05/10/2025 Active Multiple benign nevi / D22.9(ICD-10) JOSÉ SHEIKH Active [facility] 05/10/2025 Active Seborrheic kerat osis / L82.1(ICD-10) JOSÉ SHEIKH Active [facility] 05/10/2025 Active Lentigines / L81.4(ICD-10) JOSÉ SHEIKH Active [facility] 05/10/2025 Active 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) JOSÉ SHEIKH Active [facility] 05/10/2025 Active 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, soft tissue, and skin / D49.2(ICD-10) JOSÉ SHEIKH Active [facility] 05/10/2025 Active Personal history of malignant melanoma of skin / Z85.820(ICD-10) JOSÉ SHEIKH Active [facility] 05/10/2025 Active History of nonme lanoma skin cancer / Z85.828(ICD-10) JOSÉ SHEIKH Active [facility] 05/10/2025 Active Skin cancer scre ening / Z12.83(ICD-10) JOSÉ SHEIKH Active [facility] 04/12/2025 Active AK (actinic aryan tosis) / L57.0(ICD-10) NA Active [facility] 03/06/2025 Active Screening for genitourinary condition / Z13.89(ICD-10) HORTENCIA VIRAMONTES Active [facility] 02/23/2025 Active 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 Additional information can be obtained at: [email or web address]-[email or web address]/early-detection 2. In many cases, skin cancer can [...] Past Histories independently gathered by the clinical phlebotomy support tech and the remaining scribed note accurately describes my personal service to the patient. José Sheikh APRN.SHARON Allergies As of Date: 08/02/2025 Noted [...] [Z85.828] Skin cancer screening [Z12.83] Order(s):PHOTODYNAMIC THERAPY [[id number]] Order #: [id number] Prescriptions as of 08/02/2025 - amiodarone (PACERONE) [...] Units by mouth once daily. - vit A,C,I-Dpkt-Byaklv (PRESERVISION AREDS) 7,160 unit- 113 mg-100 unit [...] helpful. Additional information can be obtained at: www.skincancer.org/rvxr-lezhmc-jwbjvzupdyx/early-detection 2. In many cases, skin cancer can [...] for Encounter Date Provider Department Center 08/02/2025 [id number], LAUREN DERMST Debbi [facility] Encounter Status:Closed by JOSÉ SHEIKH on 08/02/25 PROGRESS Observed: 08/02/2025 4:30 PM Status: COMPLETED Source: [facility] HNO ID: [id number] Author: JOSÉ SHEIKH APRN.QUANTITATIVE DEVELOPER Service: ? Author Type: Nurse Practitioner Type: [...] Past Histories independently gathered by the clinical phlebotomy support tech and the remaining scribed note accurately describes my personal service to the patient. José Sheikh APRN.CNP PROGRESS Observed: 07/11/2025 3:34 PM Status: COMPLETED Source: [facility] HNO ID: [id number] Author: JOSE RAMON ROBERSON MD Service: ? [...] He continues to follow up with his patient clerical assistant, with an appointment scheduled for the end [...] Observed: 07/05/2025 4:30 PM Status: COMPLETED Source: [facility] Office Visit (GENM4) RAYA VAZQUEZ ([id number]) 1940 M Date Time Provider Department 07/05/25 [...] He continues to follow up with his patient clerical assistant, with an appointment scheduled for the end [...] Units by mouth once daily. - vit A,C,Z-Zpzr-Rlrmtz (PRESERVISION AREDS) 7,160 unit- 113 mg-100 unit [...] Service: OFFICE/OUTPATIENT ESTABLISHED LOW MDM 20 MIN [16558] Additional E/M codes: VISIT CPLX INHERENT EANDM ASSOC WITH MED * LOS History for Encounter Level of Service: OFFICE/OUTPATIENT ESTABLISHED LOW MDM 20 MIN[87050] Date AND Time: 07-11-2025 4:25 PM Recorded by User: JOSE RAMON ROBERSON Encounter Status:Closed by JOSE RAMON ROBERSON on 07/11/25 XR CHEST 2V FRONTAL/LAT Observed: 2024 4:21 PM Status: F Source: [facility] * * *Final Report* * * DATE [...] the spine. IMPRESSION: No acute radiographic abnormality. Steam Tender: MOY Transcribe Date/Time: Jun 14 2025 4:28P Dictated by : KIMBERLEY RAMOS MD This examination was interpreted and the report reviewed and electronically signed by: KIMBERLEY RAMOS MD on Jun 14 2025 4:28PM EST [id number] ECG COMPLETE Observed: 06/14/2025 4:10 PM Status: F Source: [facility] Ventricular Rate : 89 BPM Atrial Rate : 89 BPM P-R Interval : 272 ms QRS Duration : 78 ms Q-T Interval : 352 ms QTC Calculation(Bazett) : 428 ms Calculated P [place] : 57 degrees Calculated R [place] : 19 degrees Calculated T [place] : 53 degrees SINUS RHYTHM WITH 1ST DEGREE AV BLOCK EARLY REPOLARIZATION OTHERWISE NORMAL ECG Confirmed by MD ARMSTRONG QARAB ([id number]) on 08/27/2025 1:14:32 PM NAME : RAYA VAZQUEZ PID : [id number] : 1940 Gender : Male Race : ORD : [id number] Procedure Date : Jun 14 2025 16:10:37 Edit Date : Aug 27 2025 13:32:28 Diagnosis: SINUS RHYTHM WITH 1ST DEGREE AV BLOCK EARLY REPOLARIZATION OTHERWISE NORMAL ECG Confirmed by MD ARMSTRONG QARAB ([id number]) on 08/27/2025 1:14:32 PM Test Reason : R50.9 Fever, unspecified fever cause Location : 726 : TURG Overread By : MD ARMSTRONG QARAB Edited By : MD ARMSTRONG QARAB Referred By : , Acquired by : SARANYA Sarkar Observed: 06/14/2025 4:00 PM Status: COMPLETED Source: [facility] HNO ID: [id number] Author: AGUSTIN IVAN RT(R) Service: ? Author Type: Lead Engineer Type: Progress Notes Filed: 06/14/2025 16:20 Note [...] PATIENT PRESENTS WITH AN IMPLANTABLE OR ATTACHED GYMNASTICS COACH OR INSTRUCTOR: No RADIOLOGY DEPARTMENT: General X-ray: Exam(s) Completed: Chest X-Ray PERIPHERAL IV DATA: Not applicable SIGNED BY: RT Rodolfo(R) June 14, 2025 3:58 PM PROGRESS Observed: 06/14/2025 3:50 PM Status: COMPLETED Source: [facility] HNO ID: [id number] Author: KRIS SALDANA MD Service: ? Author [...] Physician or Supervisory/Collaborating Physician included: discussed with burdett ed pt refuses transport will await arrival for immediate eval Disposition The patient was discharged. Procedures CNOV Observed: 06/14/2025 3:30 PM Status: COMPLETED Source: [facility] Office Visit (WOUCA) RAYA VAZQUEZ ([id number]) 1940 M Date Time Provider Department 06/14/25 [...] Physician or Supervisory/Collaborating Physician included: discussed with burdett ed pt refuses transport will await arrival for immediate eval Disposition The patient was discharged. Procedures Kris Saldana MD 06/14/2025 4:36 PM Signed YOU WILL NEED AN EVALUATION IN THE [facility] NOW Allergies As of Date: 06/14/2025 [...] pain, unspecified type [R07.9] Order(s):COVID-19 MOLECULAR (POC) [[id number]] Order #: [id number]. #:[id number] INFLUENZA AANDB MOLECULAR (POC) [0169866] Order #: [id number]. #:[id number] [id number] CHEST 2V FRONTAL/LAT [3297524] Order #: [id number]. #:[id number] ECG COMPLETE [ECG01] Order #: [id number]. #:[id number] Prescriptions as of 06/14/2025 - tamsulosin (FLOMAX) [...] Units by mouth once daily. - vit A,C,O-Uhzd-Biejiu (PRESERVISION AREDS) 7,160 unit- 113 mg-100 unit [...] YOU WILL NEED AN EVALUATION IN THE [facility] NOW Level of Service: OFFICE/OUTPATIENT [facility]ARE [facility] 60 MINUTES [58328] Encounter Status:Closed by KRIS SALDANA on 06/14/25 TISS PATH BX REPORT Collected: 05/10/2025 1:[address] atus: F Source: [facility] Order Comment: Specimen Type : TISSUE SPECIMEN Ordering Facility: [facility] Address: [address] [place] [address] TYPE CODE TESTS RESULT OUT OF RANGE REFERENCE UNITS PATHOLOGY [id number] CASE REPORT Result Comment: Surgical Pat hology Report Case: [id number] Authorizing Provider: José Sheikh, Collected: 05/10/2025 01:34 PM SOCIAL MEDIA MANAGERAntoninoQUANTITATIVE DEVELOPER Ordering Location: Dermatology Received: 05/10/2025 03:03 PM Pathologist: Rafy Guardado MD, PhD Specimen: Skin, Right Superior Dulce PATHOLOGY [id number] FINAL DIAGNOSIS Result Comment: A. Skin, rig ht superior helix, shave biopsy: - Invasive moderately-differentiated squamous cell carcinoma. AF/EB/IO 05/11/2025 at 1519 EDT PATHOLOGY [id number] GROSS DESCRIPTION A. Skin Result Comment: Received in formalin is a 0.6 x 0.5 x 0.3 cm shave of skin. On the skin surface there is a 0.5 cm kuar, elevated area. The specimen is bisected. Totally submitted in one cassette. DB May 10, 2025 9:25 PM Gross examination performed at [facility], [address] [place] [address] PATHOLOGY CDX2 CLINICAL HISTORY Result Comment: 7 x 6 mm stella thematous hyperkeratotic papule PATHOLOGY FPLAB FINAL PERFORMING LAB Result Comment: Diagnostic i nterpretation performed at: [facility], [address] [place] [address], [facility] [place] [address] CLIA# [id number] Agronomy Supervisor: Calixto Kraft MD PATHOLOGY [id number] AP DISCLAIMER Result Comment: Laboratory D eveloped Test (LDT) Disclaimer: Performance characteristics of immunohistochemical, immunofluorescent, and chromogenic in-situ hybridization tests have been determined by the performing laboratory within [facility]'s [facility] Pathology and Laboratory Medicine Department ([facility], [facility], [facility], [facility], [facility], [facility], or [facility]) in a manner consistent with CLIA requirements. One or more of these tests may not have been cleared or approved by the FDA. RT-PLM is regulated under CLIA as qualified to perform high-complexity testing. These tests are used for clinical purposes. These should not be regarded as investigational or for research. Positive and negative controls stain appropriately. Performed By: #### [id number] # ### [facility] CLIA [id number] [address] [place] [address] [place] PROGRESS Observed: 05/10/2025 1:30 PM Status: COMPLETED Source: [facility] HNO ID: [id number] Author: JOSÉ SHEIKH APRN.QUANTITATIVE DEVELOPER Service: ? Author Type: Nurse Practitioner Type: Progress Notes Filed: 05/10/2025 14:34 Note Text: Department of Dermatology José Sheikh APRN.CNPLast visit in Dermatology: 04/12/2025 Objective/Assessment/Plan Skin Exam 1. NEOPLASM OF UNSPECIFIED BEHAVIOR OF BONE, SOFT TISSUE, AND SKIN Right Superior Dulce 7 x 6 mm erythematous hyperkeratotic papule [...] Forearm - Posterior, Right Forehead (2), Right Oriental Orthodox Erythematous, hyperkeratotic papules CRYOTHERAPY SKIN LESION - Left Buccal Cheek, Right Forearm - Posterior, Right Forehead (2), Right Oriental Orthodox Complexity: simple Destruction method: cryotherapy Informed consent: [...] shave biopsy Informed Consent Consent Obtained: Verbal [facility] Protocol A moment to CARE was completed [...] Past Histories independently gathered by the clinical phlebotomy support tech and the remaining scribed note accurately describes my personal service to the patient. José Sheikh APRN.SHARON CNOV Observed: 05/10/2025 1:30 PM Status: COMPLETED Source: [facility] Office Visit (DERMST) RAYA VAZQUEZ ([id number]) 1940 M Date Time Provider Department 05/10/25 [...] helpful. Additional information can be obtained at: [email or web address]-[email or web address] 2. In many cases, skin cancer can [...] are healing, please send your provider a [facility] message or call . CARE FOR YOUR [...] are healing, please send your provider a [facility] message or call . José Sheikh APRN.CNP 05/10/2025 2:34 PM Signed Department of Dermatology José Sheikh APRN.CNP Last visit in Dermatology: 04/12/2025 Objective/Assessment/Plan Skin Exam 1. NEOPLASM OF UNSPECIFIED BEHAVIOR OF BONE, SOFT TISSUE, AND SKIN Right Superior Dulce 7 x 6 mm erythematous hyperkeratotic papule [...] Forearm - Posterior, Right Forehead (2), Right Oriental Orthodox Erythematous, hyperkeratotic papules CRYOTHERAPY SKIN LESION - Left Buccal Cheek, Right Forearm - Posterior, Right Forehead (2), Right Oriental Orthodox Complexity: simple Destruction method: cryotherapy Informed consent: [...] shave biopsy Informed Consent Consent Obtained: Verbal [facility] Protocol A moment to CARE was completed [...] Past Histories independently gathered by the clinical phlebotomy support tech and the remaining scribed note accurately describes [...] Skin cancer screening [Z12.83] Order(s):CRYOTHERAPY SKIN LESION [[id number]] Order #: [id number]: 1 SKIN / NAIL BIOPSY [5576863] Order #: [id number]: 1 SURGICAL PATHOLOGY [XJD8156] Order #: [id number] STANDING SURGICAL PATHOLOGY [BNW0882] Order #: [id number] Prescriptions as of 05/10/2025 - tamsulosin (FLOMAX) [...] Units by mouth once daily. - vit A,C,W-Axwc-Tkzkkz (PRESERVISION AREDS) 7,160 unit- 113 mg-100 unit [...] helpful. Additional information can be obtained at: www.[email or web address]-hqxadn-[email or web address]/early-detection 2. In many cases, skin cancer can [...] are healing, please send your provider a [facility] message or call . CARE FOR YOUR [...] are healing, please send your provider a [facility] message or call . Disposition: Return for pending biopsy results. Follow-up and Disposition History for Encounter Date Provider Department Center 05/10/2025 [id number]-UKITVTLNOJOSÉ SHEIKH [facility] Encounter Status:Closed by JOSÉ SHEIKH on 05/10/25 TEJAS Observed: 04/12/2025 10:30 AM Status: COMPLETED Source: [facility] Office Visit (JERO) RAYA VAZQUEZ ([id number]) 1940 M Date Time Provider Department 04/12/25 10:30 AM NURSE EMY [facility] CRUZITO NOGUEIRA During your visit today, we [...] of Levulan sticks applied: 2 Lot # [id number] Exp 03/2027 Time before Blue Light exposure: [...] swelling and redness, you may also take fmpa-kog-bfxpiji oral medications: Claritin (loratidine) 10 mg in [...] GI Upset Date Reviewed: 04/12/2025 Reviewed by: aRmila Anna RN - Fully Assessed Reason for [...] Units by mouth once daily. - vit A,C,T-Usga-Hmybtq (PRESERVISION AREDS) 7,160 unit- 113 mg-100 unit [...] swelling and redness, you may also take iaak-vjn-wswbwug oral medications: Claritin (loratidine) 10 mg in [...] Observed: 04/12/2025 10:12 AM Status: COMPLETED Source: [facility] HNO ID: [id number] Author: MARIFER RICKS RN Service: ? Author Type: Registered Nurse Type: Progress Notes Filed: 04/12/2025 11:40 Note Text: PHOTODYNAMIC THERAPY April 12, 2025Dx: Actinic Keratosis Pt ID verified with patient: Yes Procedure verified against order and with patient: Yes Skin prepped with 70% isopropyl alcohol Yes Area treated: Full face and Bilateral ears Number of Levulan sticks applied: 2 Lot # [id number] Exp 03/2027 Time before Blue Light exposure: [...] Observed: 03/06/2025 2:00 PM Status: COMPLETED Source: [facility] Office Visit (UROLIN) RAYA VAZQUEZ ([id number]) 1940 M Date Time Provider Department 03/06/25 [...] 400 Units by mouth once daily. vit A,C,U-Etwi-Wenirq (PRESERVISION AREDS) 7,160 unit- 113 mg-100 unit [...] discussed with the Patient or Patient's Authorized Molding Machine Operator. As applicable, any other physician, advance practice provider, medical student, or other health professional student that will be observing or involved in the sensitive examination for educational or training purposes was discussed with the Patient or Authorized Molding Machine Operator. The Patient or Authorized Molding Machine Operator has agreed to proceed with the sensitive [...] Diagnosis:Urinary frequency [R35.0] Order(s):UA DIP, URINE (POC) [8455083] Order #: [id number]. #:[id number] URINE SEDIMENT B/O [1784588] Order #: [id number] tamsulosin (FLOMAX) 0.4 mgTake 2 capsules by [...] Units by mouth once daily. - vit A,C,H-Thzw-Kmprhe (PRESERVISION AREDS) 7,160 unit- 113 mg-100 unit [...] Observed: 03/06/2025 2:00 PM Status: COMPLETED Source: [facility] ID: [id number] Author: HORTENCIA VIRAMONTES PA-C Service: ? Author Type: Physician Site Safety Manager Type: Progress Notes Filed: 03/06/2025 12:29 Note [...] 400 Units by mouth once daily. vit A,C,A-Bsvz-Nxjoko (PRESERVISION AREDS) 7,160 unit- 113 mg-100 unit [...] discussed with the Patient or Patient's Authorized Molding Machine Operator. As applicable, any other physician, advance practice provider, medical student, or other health professional student that will be observing or involved in the sensitive examination for educational or training purposes was discussed with the Patient or Authorized Molding Machine Operator. The Patient or Authorized Molding Machine Operator has agreed to proceed with the sensitive [...] 03/01/2025 7:[address] atus: F Source: [facility] Order Comment: Specimen Type : TISSUE SPECIMEN Ordering Facility: [facility] Address: [address] [place] [address] TYPE CODE TESTS RESULT OUT OF RANGE REFERENCE UNITS PATHOLOGY [id number] CASE REPORT Result Comment: Surgical Pat hology Report Case: [id number] Authorizing Provider: José Sheikh, Collected: 03/01/2025 07:16 AM SOCIAL MEDIA MANAGERSUSAN Ordering Location: Dermatology Received: 03/01/2025 08:51 AM Pathologist: Leticia Andrews MD Specimen: Skin, Left Forearm - Posterior PATHOLOGY [id number] FINAL DIAGNOSIS Result Comment: A. Skin, lef t forearm-posterior, shave biopsy: - Scar. CR 03/02/2025 at 1531 EDT PATHOLOGY [id number] GROSS DESCRIPTION A. Skin Result Comment: Received in formalin is a 1.0 x 0.6 x 0.1 cm shave of skin. On the skin surface there is a 0.8 cm kaur-red and minimally elevated area. The specimen is bisected. Totally submitted in one cassette. AJB March 01, 2025 2:05 PM Gross examination performed at [facility], [address] [place] [address] PATHOLOGY FPLAB FINAL PERFORMING LAB Result Comment: Diagnostic i nterpretation performed at: [facility], [address] [place] [address] CLIA# [id number] Agronomy Supervisor: Calixto Kraft MD PATHOLOGY [id number] AP DISCLAIMER Result Comment: Laboratory D eveloped Test (LDT) Disclaimer: Performance characteristics of immunohistochemical, immunofluorescent, and chromogenic in-situ hybridization tests have been determined by the performing laboratory within [facility]'s [facility] Pathology and Laboratory Medicine Department ([facility], [facility], [facility], [facility], [facility], [facility], or [facility]) in a manner consistent with CLIA requirements. One or more of these tests may not have been cleared or approved by the FDA. RT-PLM is regulated under CLIA as qualified to perform high-complexity testing. These tests are used for clinical purposes. These should not be regarded as investigational or for research. Positive and negative controls stain appropriately. Performed By: #### 60678-9 # ### [facility] CLIA [id number] [address] [place] [address] [place] CNOV Observed: 03/01/2025 7:00 AM Status: COMPLETED Source: [facility] Office Visit (DERMST) RAYA VAZQUEZ ([id number]) 1940 M Date Time Provider Department 03/01/25 [...] are healing, please send your provider a [facility] message or call . Allergies As of Date: 03/01/2025 Noted Allergy Reaction GLUTEN 04/11/2021 14 - Other: See Comments LACTOSE 04/11/2021 8 - GI Upset Date Reviewed: 03/01/2025 Reviewed by: Tawny Bradford LPN - Fully Assessed Reason for Visit: LESION, SKIN [936] Primary Visit Diagnosis:Neoplasm of unspecified behavior of bone, soft tissue, and skin [D49.2] Order(s):SKIN / NAIL BIOPSY [8467740] Order #: [id number]: 1 SURGICAL PATHOLOGY [CMK2578] Order #: [id number] STANDING SURGICAL PATHOLOGY [LSP6948] Order #: [id number] Prescriptions as of 03/01/2025 - TRULICITY 1.5 [...] Units by mouth once daily. - vit A,C,K-Eidc-Qjidei (PRESERVISION AREDS) 7,160 unit- 113 mg-100 unit [...] are healing, please send your provider a [facility] message or call . Encounter Status:Closed by JOSÉ SHEIKH on 03/01/25 PROGRESS Observed: 03/01/2025 6:53 AM Status: COMPLETED Source: [facility] HNO ID: [id number] Author: JOSÉ SHEIKH APRN.QUANTITATIVE DEVELOPER Service: ? Author Type: Nurse Practitioner Type: [...] forearm Intake information obtained by EVELYN Adler APRN.QUANTITATIVE DEVELOPER PSA FREE SERPL-MCNC Collected: 02/24/20 9:55 AM Status: F Source: [facility] Order Comment: Specimen Type : BLOOD SPECIMEN Ordering Facility: [facility] Address: [address] [place] [address] TYPE CODE TESTS RESULT OUT OF RANGE REFERENCE UNITS LAB 2857-1(LOINC) PSA SerPl-mCnc 0.34 <2.60 ng/mL Result Comment: Total PSA te st methodology used is the Electrochemiluminescence Immunoassay by [employer]. Total PSA values by differing methodologies cannot be interchanged. LAB 58457-4(LOINC ) PSA Free MFr SerPl 44 % [...] >25 9.1% 12.2% 15.8% Performed By: #### 53122-1 # ### [facility] CLIA [id number] [address] [place] [address] OF [facility] CNOV Observed: 02/01/2025 12:00 PM Status: COMPLETED Source: [facility] Office Visit (DERMST) RAYA VAZQUEZ ([id number]) 1940 M Date Time Provider Department 02/01/25 [...] helpful. Additional information can be obtained at: [email or web address] 2. In many cases, skin cancer can [...] Past Histories independently gathered by the clinical phlebotomy support tech and the remaining scribed note accurately describes my personal service to the patient. José Sheikh APRN.QUANTITATIVE DEVELOPER Allergies As of Date: 02/01/2025 Noted Allergy [...] [Z85.820] Skin cancer screening [Z12.83] Order(s):PHOTODYNAMIC THERAPY [0713710] Order #: [id number] Fluorouracil (EFUDEX) 5 % creamApply to affected [...] Units by mouth once daily. - vit A,C,G-Ykzr-Jpkbot (PRESERVISION AREDS) 7,160 unit- 113 mg-100 unit [...] helpful. Additional information can be obtained at: www.[email or web address]-gqypyf-oaqxaiuzpsr/early-detection 2. In many cases, skin cancer can [...] for Encounter Date Provider Department Center 02/01/2025 [id number] SHEIKH [facility] Encounter Status:Closed by JOSÉ SHEIKH on 02/01/25 PROGRESS Observed: 02/01/2025 12:00 PM Status: COMPLETED Source: [facility] HNO ID: [id number] Author: JOSÉ SHEIKH APRN.SHARON Service: ? Author [...] Past Histories independently gathered by the clinical phlebotomy support tech and the remaining scribed note accurately describes my personal service to the patient. José Sheikh APRN.SHARON CNOV Observed: 12/21/2024 11:00 AM Status: COMPLETED Source: [facility] Office Visit (GENM4) RAYA VAZQUEZ ([id number]) 1940 M Date Time Provider Department 12/21/24 [...] No Does patient want to see a Integrated Circuit Ic Layout Designer? No (yes to any of above refer [...] year old male SCC in situ (right methodist 2022), BCC (left mandible 2019), SCC (lower [...] 84 year old male SCC insitu (right methodist 2022), BCC (left mandible 2019), SCC (lower [...] Units by mouth once daily. - vit A,C,K-Ccoc-Gageof (PRESERVISION AREDS) 7,160 unit- 113 mg-100 unit [...] FOLLOW UP VISIT RELATED TO ORIGINAL PX [37112] LOS History for Encounter Level of Service: POSTOP FOLLOW UP VISIT RELATED TO ORIGINAL PX[12376] Date AND Time: 12-22-2024 5:25 PM Recorded by User: JOSE RAMON ROBERSON Encounter Status:Closed by JOSE RAMNO ROBERSON on 12/22/24 PROGRESS Observed: 12/21/2024 10:59 AM Status: COMPLETED Source: [facility] HNO ID: [id number] Author: JOSE RAMON ROBERSON MD Service: ? Author Type: Physician Type: Progress Notes Filed: 12/22/2024 17:30 Note Text: GENERAL SURGERY Clinic Follow-up NOTE Patient name: Raya Vazquez Date of : 1940 PRESENTING COMPLAIN: follow up post WLE of left shoulder lesion HISTORY OF PRESENT ILLNESS: Raya Vazquez is a 84 year old male SCC in situ (right methodist 2022), BCC (left mandible 2019), SCC (lower [...] 84 year old male SCC insitu (right methodist 2022), BCC (left mandible 2019), SCC (lower [...] Observed: 12/21/2024 10:37 AM Status: COMPLETED Source: [facility] HNO ID: [id number] Author: JOSE RAMON ROBERSON MD Service: ? Author Type: Physician Type: Progress Notes Filed: 12/22/2024 17:30 Note Text: Additional intake questions: Has the patient had fever, nausea, vomiting, diarrhea, constipation, fatigue for > 1 week? No Does the patient have a decreased appetite? No Does patient want to see a Integrated Circuit Ic Layout Designer? No (yes to any of above refer [...] Observed: 12/01/2024 12:00 AM Status: COMPLETED Source: [facility] Telephone (GENInterface FoundryN) RAYA VAZQUEZ ([id number]) 1940 M Date Time Provider Department 12/01/24 JOSE RAMON ROBERSON During your visit today, we recorded the following information about you: Don Carranza 12/01/2024 1:33 PM Signed Jane from pt's PCP's office Dr. Viveros is requesting pt's Pathology results faxed to: [phone]/ATTN: Krista Contact info: [phone] Marifer Romano, KIESHA 12/01/2024 4:35 PM Signed [...] Units by mouth once daily. - vit A,C,W-Pelh-Hpiaey (PRESERVISION AREDS) 7,160 unit- 113 mg-100 unit [...] Encounter Status:Closed by MARIFER ROMANO on 12/01/24 [id number] Observed: 11/27/2024 12:51 PM Status: COMPLETED Source: [facility] HNO ID: [id number] Author: NAFISA ORTEGA RN Service: ? Author Type: Registered Nurse Type: [id number] Filed: 11/27/2024 12:51 Note Text: Discharge instructions: [...] questions or concerns during business hours call [phone] or after hours (after 5 pm or on the weekend) call [phone] and ask for the general surgery resident / fellow fire battalion chief for further instructions. If you have increasing [...] PATHOLOGY Collected: 12:25 PM Status: F Source: [facility] Order Comment: Specimen Type : TISSUE SPECIMEN Ordering Facility: [facility] Address: [address] [place] [address] TYPE CODE TESTS RESULT OUT OF RANGE REFERENCE UNITS PATHOLOGY [id number] CASE REPORT Result Comment: Surgical Pat hology Report Case: [id number] Authorizing Provider: Jose Ramon Roberson MD Collected: 11/27/2024 12:25 PM [facility] Received: 11/27/2024 05:16 PM Pathologist: Celestino García MD Specimen: Skin, Excision, left back melanoma PATHOLOGY [id number] FINAL DIAGNOSIS Result Comment: A. Skin, lef t back, excision: - Scar and reactive changes consistent with prior procedure. - Negative for residual neoplasm. - Incidental intradermal nevus. SDB/EB 12/01/2024 OLOGY [id number] GROSS DESCRIPTION Result Comment: A. Skin, Exc [...] remainder of tissue. 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 Performed By: #### S #### [facility] CLIA [id number] [address] [place], [place] [address] [address] [place] GUADALUPE OPERATIVE NO Observed: 11/27/2024 12:09 PM Status: COMPLETED Source: [facility] HNO ID: [id number] Author: JOSE RAMON ROBERSON MD Service: General Surgery Author Type: Physician Type: Operative Report Filed: 11/27/2024 14:59 Note Text: OPERATIVE/PROCEDURE REPORT LOG ID: [id number] SURGERY/PROCEDURE DATE: 11/27/2024 INCISION/PROCEDURE START TIME: 12:22 PM INCISION CLOSE/PROCEDURE END TIME: 12:33 PM SURGEON(S)/PROCEDURALIST(S) AND PSYCHOLOGICAL OPERATIONS SPECIALIST(S): Surgeons and Role: * Jose Ramon Roberson [...] Observed: 11/16/2024 11:00 AM Status: COMPLETED Source: [facility] Office Visit (GENM4) RAYA VAZQUEZ ([id number]) 1940 M Date Time Provider Department 11/16/24 [...] No Does patient want to see a Integrated Circuit Ic Layout Designer? 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 - vit A,C,Q-Tgfe-Mfeukk (PRESERVISION AREDS) 7,160 unit- 113 mg-100 unit [...] Service: OFFICE/OUTPATIENT NEW MODERATE MDM 45 MINUTES [65397] Additional E/M codes: VISIT CPLX INHERENT EANDM ASSOC WITH MED * LOS History for Encounter Level of Service: OFFICE/OUTPATIENT NEW MODERATE MDM 45 MINUTES[10944] Date AND Time: 11-16-2024 4:48 PM Recorded by User: JOSE RAMON ROBERSON Encounter Status:Closed by JOSE RAMON ROBERSON on 11/16/24 PROGRESS Observed: 11/16/2024 10:49 AM Status: COMPLETED Source: [facility] HNO ID: [id number] Author: JOSE RAMON ROBERSON MD Service: ? 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 Author Type: Public Relations Director Type: Progress Notes Filed: 11/16/2024 16:50 Note Text: Additional intake questions: Has the patient had fever, nausea, vomiting, diarrhea, constipation, fatigue for > 1 week? No Does the patient have a decreased appetite? No Does patient want to see a Integrated Circuit Ic Layout Designer? No (yes to any of above refer patient to schedulers for dietitian appointment) ) Does patient have any new or increased numbness or tingling of extremities? No Is patient interested in fertility information? No Does patient need any prescription refills? No Does patient have an advanced directive in place? Yes, copies are in Epic Electronically Signed By: Pancoh Vazquez MA CNPN Observed: 11/09/2024 12:00 AM Status: COMPLETED Source: [facility] Telephone (DERMST) RAYA VAZQUEZ ([id number]) 1940 M Date Time Provider Department 11/09/24 [...] been determined by the performing laboratory within [facility] Pathology and Laboratory Medicine Department ([facility], [facility], [facility], [facility], [facility], [facility], or [facility]) in a manner consistent with CLIA requirements. [...] Montez Kristian, PA-C 11/09/2024 6:05 PM Signed [facility]winder Ackerman RN 11/13/2024 10:20 AM Signed Reached out to general surgery nurse healthcare representative and Lucero zarate to establish an appointment [...] Units by mouth once daily. - vit A,C,O-Gffm-Ytzcsb (PRESERVISION AREDS) 7,160 unit- 113 mg-100 unit [...] PATHOLOGY Collected: 1:45 PM Status: F Source: [facility] Order Comment: Specimen Type : TISSUE SPECIMEN Ordering Facility: [facility] Address: [address] [place] [address] TYPE CODE TESTS RESULT OUT OF RANGE REFERENCE UNITS PATHOLOGY [id number] CASE REPORT Result Comment: Surgical Pat hology Report Case: [id number] Authorizing Provider: Corrie Nguyen PA-C Collected: 11/02/2024 01:45 PM Ordering Location: Dermatology Received: 11/02/2024 04:30 PM Pathologist: Celestino García MD Specimens: A) - Skin, Right Breast B) - Skin, Left Upper Back PATHOLOGY [id number] FINAL DIAGNOSIS Result Comment: A. Skin, rig ht breast, shave biopsy: - Inflamed seborrheic keratosis. B. Skin, left upper back, shave biopsy: - Melanoma, see comment and synoptic report. SDB/LX/mm/11/08/2024 OLOGY [id number] DIAGNOSIS COMMENT Result Comment: B. Histologi c [...] been determined by the performing laboratory within [facility] Pathology and Laboratory Medicine Department ([facility], [facility], [facility], [facility], [facility], [facility], or [facility]) in a manner consistent with CLIA requirements. One or more of these tests have not been cleared or approved by the FDA. [facility] is regulated under CLIA as qualified to perform high-complexity testing. These tests are used for clinical purposes. They should not be regarded as investigational or for research. Positive and negative controls stain appropriately. PATHOLOGY [id number] BLOCK FOR ADDITIONAL BIOMARKERS/MOL ECULAR STUDIES B1 PATHOLOGY [id number] SYNOPTIC REPORT Result Comment: INVASIVE LILIAN ANOMA [...] this pathology report. pT Category: pT2a PATHOLOGY [id number] GROSS DESCRIPTION A. Skin Result Comment: Received [...] 2024 10:06 PM [place] [address] PATHOLOGY [facility] FINAL PERFORMING [facility] Result Comment: Diagnostic i nterpretation performed at [place] [address] CLIA# [id number] Agronomy Supervisor: Calixto Kraft M.D. Performed By: #### S #### [facility] CLIA [id number] [address] [place] [address] OF MARIA GUADALUPE CNOV Observed: 11/02/2024 1:20 PM Status: COMPLETED Source: [facility] Office Visit (DERMST) RAYA VAZQUEZ ([id number]) 1940 M Date Time Provider Department 11/02/24 [...] are healing, please send your provider a [employer] message or call . CARE FOR YOUR [...] are healing, please send your provider a [employer] message or call . GENERAL SUN SAFETY [...] helpful. Additional information can be obtained at: www.skincancer.org/jdfp-ujwzgo-bhrerdvopba/early-detection 2. 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 vit A,C,D-Kdjg-Zbkbkt (PRESERVISION AREDS) 7,160 unit- 113 mg-100 unit [...] discussed with the Patient or Patient's Authorized Molding Machine Operator. As applicable, any other physician, advance practice provider, medical student, or other health professional student that will be observing or involved in the sensitive examination for educational or training purposes was discussed with the Patient or Authorized Molding Machine Operator. The Patient or Authorized Molding Machine Operator has agreed to proceed with the sensitive [...] (4), Left Forearm - Posterior, Left Superior Dulce (2), Neck - Posterior, Right Cheek, Right Forearm - Posterior (2), Right Superior Dulce (2), Right Oriental Orthodox (5) Erythematous papule(s) with gritty scale Right [...] (4), Left Forearm - Posterior, Left Superior Dulce (2), Neck - Posterior, Right Cheek, Right Forearm - Posterior (2), Right Superior Dulce (2), Right Oriental Orthodox (5) Complexity: simple Destruction method: cryotherapy Informed [...] Procedure: shave Informed Consent Consent Obtained: Verbal [facility] Protocol A moment to CARE was completed [...] Past Histories independently gathered by the clinical phlebotomy support tech and the remaining scribed note accurately describes [...] tissue, and skin [D49.2] Order(s):CRYOTHERAPY SKIN LESION [[id number]] Order #: [id number]: 1 SKIN / NAIL BIOPSY [8802956] Order #: [id number]: 1 SURGICAL PATHOLOGY [HBB6888] Order #: [id number] [facility] SURGICAL PATHOLOGY [VQP6557] Order #: [id number] SKIN / NAIL BIOPSY [3890449] Order #: [id number]: 1 Prescriptions as of 11/02/2024 - cetirizine [...] Units by mouth once daily. - vit A,C,I-Twdr-Bqmawi (PRESERVISION AREDS) 7,160 unit- 113 mg-100 unit [...] are healing, please send your provider a [employer] message or call . CARE FOR YOUR [...] are healing, please send your provider a [employer] message or call . GENERAL SUN SAFETY [...] helpful. Additional information can be obtained at: www.skincancer.org/fpgb-ohejzw-vjwemiuktce/early-detection 2. In many cases, skin cancer can [...] for Encounter Date Provider Department Center 11/02/2024 [id number] NGUYEN [facility] Encounter Status:Closed by CORRIE NGUYEN on 11/02/24 PROGRESS Observed: 11/02/2024 1:20 PM Status: COMPLETED Source: [facility] HNO ID: [id number] Author: CORRIE NGUYEN PA-C Service: ? 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 vit A,C,T-Isor-Edepxa (PRESERVISION AREDS) 7,160 unit- 113 mg-100 unit [...] discussed with the Patient or Patient's Authorized Molding Machine Operator. As applicable, any other physician, advance practice provider, medical student, or other health professional student that will be observing or involved in the sensitive examination for educational or training purposes was discussed with the Patient or Authorized Molding Machine Operator. The Patient or Authorized Molding Machine Operator has agreed to proceed with the sensitive [...] (4), Left Forearm - Posterior, Left Superior Dulce (2), Neck - Posterior, Right Cheek, Right Forearm - Posterior (2), Right Superior Dulce (2), Right Oriental Orthodox (5) Erythematous papule(s) with gritty scale Right [...] (4), Left Forearm - Posterior, Left Superior Dulce (2), Neck - Posterior, Right Cheek, Right Forearm - Posterior (2), Right Superior Dulce (2), Right Oriental Orthodox (5) Complexity: simple Destruction method: cryotherapy Informed [...] Procedure: shave Informed Consent Consent Obtained: Verbal [facility] Protocol A moment to CARE was completed [...] Past Histories independently gathered by the clinical phlebotomy support tech and the remaining scribed note accurately describes my personal service to the patient. Corrie Nguyen PA-C November 02, 2024 2:08 PM Medical Decision Making: Problems: Moderate: 1+ chronic illnesses with change Risk: Moderate: Moderate risk from testing/treatment Medical Decision Making Level: 4 - Moderate CNPN Observed: 10/17/2024 12:00 AM Status: COMPLETED Source: [facility] Telephone (DERMST) RAYA VAZQUEZ ([id number]) 1940 M Date Time Provider Department 10/17/24 [...] Units by mouth once daily. - vit A,C,X-Jrcp-Uvorll (PRESERVISION AREDS) 7,160 unit- 113 mg-100 unit [...] Observed: 10/10/2024 8:30 AM Status: COMPLETED Source: [facility] Office Visit (UROLIN) RAYA VAZQUEZ ([id number]) 1940 M Date Time Provider Department 10/10/24 [...] 400 Units by mouth once daily. vit A,C,T-Pntn-Laxlfc (PRESERVISION AREDS) 7,160 unit- 113 mg-100 unit [...] [R39.198] Impotence [N52.9] Order(s):UA DIP, URINE (POC) [[id number]] Order #: [id number]. #:[id number] URINE SEDIMENT B/O [[id number]] Order #: [id number] tamsulosin (FLOMAX) 0.4 mgTake 2 capsules by [...] Units by mouth once daily. - vit A,C,Z-Pjha-Jkjcps (PRESERVISION AREDS) 7,160 unit- 113 mg-100 unit [...] Observed: 10/10/2024 8:17 AM Status: COMPLETED Source: [facility] ID: [id number] Author: HORTENCIA VIRAMONTES PA-C Service: ? Author Type: Physician Site Safety Manager Type: Progress Notes Filed: 10/10/2024 08:42 Note [...] 400 Units by mouth once daily. vit A,C,V-Rrva-Aqxufw (PRESERVISION AREDS) 7,160 unit- 113 mg-100 unit [...] / CODE REACTION SEVERITY SOURCE 04/11/2021 DRUG INGREDI/843041511( SNOMED CT) GLUTEN OTHER: SEE C [facility] 04/11/2021 DRUG INGREDI/125622696( SNOMED CT) LACTOSE GI UPSET [facility] ENCOUNTERS ADMIT/DISCHARGE ACCOUNT NUMBER ADMITTING ENCOUNTER CLASS LOCATION SOURCE 08/02/2025/08/02/20 [id number] Ambulatory [facility] HospitalBuild ing:STDE [facility] 07/05/2025/07/06/20 [id number] Ambulatory [facility] HospitalBuild ing:GENM4 [facility] 06/14/2025 [id number] Ambulatory [facility] HospitalBuild ing:WORG [facility] 06/14/2025/06/14/20 [id number] Ambulatory [facility] HospitalBuild ing:WOUCA [facility] 05/10/2025/05/10/20 [id number] Ambulatory [facility] HospitalBuild ing:STDE [facility] 04/12/2025/04/12/20 [id number] Ambulatory [facility] HospitalBuild ing:STDE [facility] 03/06/2025/03/06/20 [id number] Ambulatory [facility] HospitalBuild ing:INUR [facility] 03/01/2025/03/01/20 [id number] Ambulatory [facility] HospitalBuild ing:STDE [facility] 02/23/2025/02/24/20 [id number] Ambulatory [facility] HospitalBuild ing:WOL2 [facility] 02/01/2025/02/02/20 [id number] Ambulatory [facility] HospitalBuild ing:STDE [facility] 12/21/2024/12/21/19 [id number] Ambulatory [facility] HospitalBuild ing:GENM4 [facility] 11/27/2024 [id number] JOSE RAMON ROBERSON Ambulatory [facility] HospitalBuild ing:O763Uapd: [facility]002Bed: A060-02 [facility] 11/16/2024/11/17/20 24 [id number] [facility] HospitalBuild ing:GENM4 [facility] 11/02/2024/11/02/20 24 [id number] Ambulatory [facility] HospitalBuild ing:STDE [facility] 10/10/2024/10/10/20 24 [id number] Ambulatory [facility] HospitalBuild ing:INUR [facility] PAYERS ENCOUNTER GUARANTOR PAYER SUBSCRIBER SOURCE 08/02/2025 Primary Insuranc e:MEDICARE A AND BPolicy Number: [id number] Date:2086-18-57Thas Name:Sada RAYA HELENE: [id number] [address] [address] [facility] 08/02/2025 Secondary Insura nce:MMO MEDICARE SUPPLEMENTPolicy Number: [id number] Date:8327-87-79Sqmw Name:Liz DOS SANTOS HELENE: [id number] [id number] [place] [address] 07/05/2025 Primary Insuranc e:MEDICARE A AND BPolicy Number: [id number] Date:2870-39-43Euww Name:Sada NARAYAN: [id number] [facility] [address] [place] [id number] [place] [address] 07/05/2025 Secondary Insura nce:MMO MEDICARE SUPPLEMENTPolicy Number: [id number] Date:0740-41-51Dkth Name:Liz NARAYAN: [id number] [phone] [place] [address] 06/14/2025 Primary Insuranc e:MEDICARE A AND BPolicy Number: [id number] Date:2675-91-38Nuny Name:Sada NARAYAN: [id number] [id number] [place] [address] 06/14/2025 Secondary Insura nce:MMO MEDICARE SUPPLEMENTPolicy Number: [id number] Date:0013-31-77Otmj Name:Liz NARAYAN: [id number] [id number] [place] [address] 06/14/2025 Primary Insuranc e:MEDICARE A AND BPolicy Number: [id number] Date:8713-70-67Uoyt Name:Sada NARAYAN: [id number] [facility] [address] [place] [id number] [place] [address] 06/14/2025 Secondary Insura nce:MMO MEDICARE SUPPLEMENTPolicy Number: [id number] Date:7742-97-04Wmic Name:Liz NARAYAN: [id number] [facility] [address] [place] [id number] [place] [address] 05/10/2025 Primary Insuranc e:MEDICARE A AND BPolicy Number: [id number] Date:5295-87-49Bdku Name:Sada NARAYAN: [id number] [address] [place] [address] [facility] 05/10/2025 Secondary Insura nce:MMO MEDICARE SUPPLEMENTPolicy Number: [id number] Date:3620-68-60Nxpr Name:Liz NARAYAN: [id number] [facility] [address] [place] [id number] [place] [address] 04/12/2025 Primary Insuranc e:MEDICARE A AND BPolicy Number: [id number] Date:2992-80-91Zyad Name:Sada NARAYAN: [id number] [address] [place] [id number] [place] [address] 04/12/2025 Secondary Insura nce:[facility] [place] SUPPLEMENTPolicy Number: [id number] Date:3443-68-91Ymrn Name:Liz NARAYAN: [id number] [address] [place] [phone] [place] [address] 03/06/2025 Primary Insuranc e:MEDICARE A AND BPolicy Number: [id number] Date:8498-33-52Yxoh Name:Sada NARAYAN: [id number] [facility] [address] [place] [address] [facility] 03/06/2025 Secondary Insura nce:MMO MEDICARE SUPPLEMENTPolicy Number: [id number] Date:7065-63-38Bwgb Name:Liz NARAYAN: [id number] [address] [place] [id number] [place] [address] 03/01/2025 Primary Insuranc e:MEDICARE A AND BPolicy Number: [id number] Date:1727-55-80Bzrn Name:Sada NARAYAN: [id number] [facility] [address] [place] [address] [facility] 03/01/2025 Secondary Insura nce:MMO MEDICARE SUPPLEMENTPolicy Number: [id number] Date:4972-58-37Uriw Name:Liz NARAYAN: [id number] [address] [place] [address] [facility] 02/23/2025 Primary Insuranc e:MEDICARE A AND BPolicy Number: [id number] Date:7416-74-96Kcpi Name:Sada NAARYAN: [id number] [facility] [address] [place] [id number] [place] [address] 02/23/2025 Secondary Insura nce:O MEDICARE SUPPLEMENTPolicy Number: [id number] Date:7961-17-21Wrnr Name:Liz NARAYAN: [id number] [facility] [address] [place] [id number] [place] [address] 02/01/2025 Primary Insuranc e:MEDICARE A AND BPolicy Number: [id number] Date:9463-05-25Lvst Name:Sada NARAYAN: [id number] [facility] [address] [place] [phone] [place] [address] 02/01/2025 Secondary Insura nce:O MEDICARE SUPPLEMENTPolicy Number: [id number] Date:2444-95-91Xecr Name:Liz NARAYAN: [id number] [address] [place] [id number] [place] [address] 12/21/2024 Primary Insuranc e:MEDICARE A AND BPolicy Number: [id number] Date:3708-40-16Nfqg Name:Sada NARAYAN: [id number] [address] [place] [phone] [place] [address] 12/21/2024 Secondary Insura nce:MMO MEDICARE SUPPLEMENTPolicy Number: [id number] Date:3014-77-38Qngt Name:Liz NARAYAN: [id number] [address] [place] [id number] [facility] 11/27/2024 Primary Insuranc e:MEDICARE A AND BPolicy Number: [id number] Date:2924-06-73Eeic Name:Sada NARAYAN: [id number] [address] [place] [phone] [facility] 11/27/2024 Secondary Insura nce:MMO MEDICARE SUPPLEMENTPolicy Number: [id number] Date:1316-06-06Arjq Name:Liz NARAYAN: [id number] [facility] [address] [place] [phone] [place] [address] 11/16/2024 Primary Insuranc e:MEDICARE A AND BPolicy Number: [id number] Date:1328-34-10Yrzh Name:Sada NARAYAN: [id number] [facility] [address] [place] [phone] [place] [address] 11/16/2024 Secondary Insura nce:MMO MEDICARE SUPPLEMENTPolicy Number: [id number] Date:3116-27-99Drbo Name:Liz NARAYAN: [id number] [address] [place] [id number] [facility] 11/02/2024 Primary Insuranc e:MEDICARE A AND BPolicy Number: [id number] Date:5156-32-87Bwlr Name:Sada NARAYAN: [id number] [address] [place] [address] [facility] 11/02/2024 Secondary Insura nce:MMO MEDICARE SUPPLEMENTPolicy Number: [id number] Date:8363-25-19Chkc Name:Liz NARAYAN: [id number] [address] [place] [address] [facility] 10/10/2024 Primary Insuranc e:MEDICARE A AND BPolicy Number: [id number] Date:7698-10-63Wgoq Name:Sada MORRISONSHANICE: [id number] [address] [address] [facility] 10/10/2024 Secondary Insura nce:MMO MEDICARE SUPPLEMENTPolicy Number: [id number] Date:2965-08-11Zwlv Name:Liz MORRISONSHANICE: [id number] [address] [address] [facility]
--- NOTE | 2025-08-27 10:10 | CT_ITS ---
PROCEDURE: ABDOMEN/PELVIS WITHOUT CONT 08/27/2025 REASON FOR EXAM: ACUTE KIDNEY INJURY, R/O OBSTRUCTION TECHNIQUE: Procedure Code: CTABDPEL Modality: CT Procedure: ABDOMEN/PELVIS WITHOUT CONT Noncontrast technique limits evaluation of the abdominal and pelvic viscera. Coronal and Sagittal reconstruction series were provided. One or more dose reduction techniques were used (e.g., Automated exposure control, adjustment of the mA and/or kV according to patient size, use of iterative reconstruction technique). RADIATION DOSE SUMMARY: DLP: 1154 mGycm COMPARISON: None FINDINGS: Lung bases: There is a 1.3 cm pericardial effusion. There is a large and left pleural effusion measuring 6 cm in depth. Liver: Unremarkable Gallbladder: Surgically absent Spleen: Unremarkable Pancreas: Unremarkable Adrenals: There is a 1.2 cm right adrenal nodule, Hounsfield units = 27. Kidneys: There is a 3.8 cm left renal cyst. Bladder: Unremarkable Reproductive Organs: Unremarkable Bowel: Gas and stool is noted throughout the colon. Small bowel loops are not distended. Appendix: Within normal limits Lymph nodes: There is no pathologic adenopathy by size criteria. Vasculature: Atherosclerotic calcifications are noted. Peritoneum / Retroperitoneum: There is free fluid in the abdomen measuring 4 cm adjacent to the liver, 1.2 cm at the spleen. Bones: There is no acute bony abnormality. CT/Abdomen/Pelvis without Cont IMPRESSION: There is no renal stone or hydronephrosis. There is a 1.3 cm pericardial effusion. There is a large and left pleural effusion measuring 6 cm in depth. There is a 1.2 cm right adrenal nodule, Hounsfield units = 27. There is a 3.8 cm left renal cyst. There is free fluid in the abdomen measuring 4 cm adjacent to the liver, 1.2 cm at the spleen. Reading Location: [facility]
== END | disposition home or self-care (01) ==
PROVIDERS: PCP Emergency Medicine; Referring Provider Family Medicine Geriatric Medicine; Visit Provider Family Medicine Geriatric Medicine
DX: N17.9 Acute kidney failure, unspecified (principal); Z03.89 Encounter for observation for other suspected diseases and conditions ruled out
CPT/HCPCS: 74176

== ENCOUNTER 2025-08-28 10:36 | Inpatient (IN) | payer MEDICARE, OTHER, SELFPAY ==
[2021-07-11 09:10] VITALS: BMI 34.9
--- OUTSIDE RECORDS SUMMARY | 2025-08-02 15:47 | XMS RPT_ITS ---
Author Name Auto Generated Organization OHIP Care Team Providers [facility] [employer] [employer] Name Role Phone CORRIE NGUYEN Attending Unavailable DAO VIVEROS JR Primary Care Unavailable JOSE RAMON ROBERSON Attending Unavailable DAO VIVEROS JR Primary Care Unavailable JOSE RAMON ROBERSON Attending Unavailable DAO VIVEROS JR Primary Care Unavailable JOSÉ SHEIKH Attending Unavailable DAO VIVEROS JR Primary Care Unavailable HORTENCIA VIRAMONTES Referring Unavailable DAO VIVEROS JR Primary Care Unavailable JOSÉ SHEIKH Attending Unavailable DAO VIVEROS JR Primary Care Unavailable HORTENCIA VIRAMONTES Attending Unavailable DAO VIVEROS JR Primary Care Unavailable DAO VIVEROS JR Primary Care Unavailable JOSÉ SHEIKH Attending Unavailable DAO VIVEROS JR Primary Care Unavailable DAO VIVEROS JR Primary Care Unavailable KRIS SALDANA Attending Unavailable JOSE RAMON ROBERSON Admitting Unavailable JOSE RAMON ROBERSON Attending Unavailable DAO VIVEROS JR Primary Care Unavailable KRIS SALDANA Referring Unavailable DAO VIVEROS JR Primary Care Unavailable JOSE RAMON ROBERSON Attending Unavailable DAO VIVEROS JR Primary Care Unavailable JOSÉ SHEIKH Attending Unavailable DAO VIVEROS JR Primary Care Unavailable HORTENCIA VIRAMONTES Attending Unavailable DAO VIVEROS JR Primary Care Unavailable PROBLEMS DATE TYPE CONDITION / CODE ATTENDING STATUS [facility] 07/05/2025 Active Established Kathi ent / UNK(Unknown) JOSE RAMON ROBERSON Active [facility] 06/14/2025 Active Fever, unspecifi ed fever cause / R50.9(ICD-10) KRIS SALDANA Active [facility] 06/14/2025 Active URI, acute / J06.9(ICD-10) KRIS SALDANA Active [facility] 06/14/2025 Active Dyspnea, unspeci fied type / R06.00(ICD-10) KRIS SALDANA Active [facility] 06/14/2025 Active Chest pain, unsp ecified type / R07.9(ICD-10) LES KRIS Active [facility] 05/10/2025 Active Multiple benign nevi / D22.9(ICD-10) JOSÉ SHEIKH Active [facility] 05/10/2025 Active Seborrheic kerat osis / L82.1(ICD-10) JOSÉ SHEIKH Active [facility] 05/10/2025 Active Lentigines / L81.4(ICD-10) JOSÉ SHEIKH Active [facility] 05/10/2025 Active 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) JOSÉ SHEIKH Active [facility] 05/10/2025 Active 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, soft tissue, and skin / D49.2(ICD-10) JOSÉ SHEIKH Active [facility] 05/10/2025 Active Personal history of malignant melanoma of skin / Z85.820(ICD-10) JOSÉ SHEIKH Active [facility] 05/10/2025 Active History of nonme lanoma skin cancer / Z85.828(ICD-10) JOSÉ SHEIKH Active [facility] 05/10/2025 Active Skin cancer scre ening / Z12.83(ICD-10) JOSÉ SHEIKH Active [facility] 04/12/2025 Active AK (actinic aryan tosis) / L57.0(ICD-10) NA Active [facility] 03/06/2025 Active Screening for genitourinary condition / Z13.89(ICD-10) HORTENCIA VIRAMONTES Active [facility] 02/23/2025 Active 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) NA Active [facility] 02/23/2025 Active 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) NA Active [facility] 11/27/2024 Active 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 We had an opportunity to discuss my findings and any treatments I recommended. I believe that there are several steps that a person can do to help prevent skin cancers and to detect them at an early, treatable stage: 1. I highly recommend that once a month you perform your own complete skin check looking for changing or unusual spots. Use a wall-mounted mirror and a hand mirror to assist in seeing body areas that are difficult to see otherwise. If you have a family member that can assist, this is often helpful. Additional information can be obtained at: www.skincancer.org/llgd-jtbvpp-gmyjzgawxvn/early-detection 2. In many cases, skin cancer can be prevented. The best way to protect yourself is to avoid too much sun and sunburns. Health care providers believe that ultraviolet rays (UV rays) from the sun damage the skin and over time lead to skin cancer. Here are ways to protect yourself: -Don't spend long periods of time in direct sunlight. -Wear hats with brims to protect your face and ears. -Wear long-sleeved shirts and pants to protect your arms and legs. -Use broad spectrum sunscreens with a SPF (skin protection factor) of 30 or higher that protect against burning and tanning rays. Apply the lotion 30 minutes before you go outside. (Broad-spectrum sunscreens protect against UV-B and UV-A rays.) -Wear sunglasses to protect your eyes. -Use a lip balm with sunscreen. -Avoid the sun between 10am and 4pm. -Show any changing mole to your health care provider. José Sheikh APRN.CNP 08/02/2025 5:00 PM Signed Department of Dermatology José Sheikh APRN.CNP Last visit in Dermatology: 05/10/2025 Objective/Assessment/Plan Skin Exam 1. AK (ACTINIC KERATOSIS) (3) Head - Anterior (Face), Left Ear, Right Ear Erythematous, hyperkeratotic papules Discussed etiology, prognosis, and treatment options. Recommend PDT in the fall/winter 2024. R/b/a for the treatment/medication(s) including possible side effects discussed and reviewed with patient. This Visit - PHOTODYNAMIC THERAPY 2. MULTIPLE BENIGN NEVI Generalized Multiple scattered pink papules with flaccid epidermis and small, symmetric kaur to brown macules with uniform pigmentation over the trunk and extremities. Observational course. Monitor for growth and changes. 3. SEBORRHEIC KERATOSIS Generalized Stuck-on verrucous, variably pigmented papules and plaques. Scattered to the trunk, bilateral upper extremities, bilateral lower extremities. Observational course. Monitor for growth and changes. 4. LENTIGINES Generalized Densely scattered light kaur macules and small patches on all sun exposed areas. Observational course. Monitor for growth and changes. 5. DELEON ANGIOMA Generalized Deleon-red papules scattered to the trunk, bilateral upper extremities, bilateral lower extremities. Observational course. Monitor for growth and changes. 6. PERSONAL HISTORY OF MALIGNANT MELANOMA OF SKIN Left Upper Back No evidence of recurrence at previous surgical site Recommend Q3 month skin exams and regular dermatology follow up 7. HISTORY OF NONMELANOMA SKIN CANCER Generalized No evidence of recurrence at previous surgical site Recommend Q3 month skin exams and regular dermatology follow up 8. SKIN CANCER SCREENING Generalized The patient's skin was examined for evidence of cutaneous malignancy. The nature of sun-induced photo-aging and skin cancers is discussed. Sun avoidance, protective clothing, and the use of 30-SPF sunscreens is advised. Patient is instructed to perform regular self exams. Patient instructed to observe for changing, symptomatic, or new skin lesions and encouraged to contact our office for evaluation. Follow-up as noted below or as needed. Chief Complaint: Patient presents with: Full Body Skin Check Subjective and Objective HPI: Raya Vazquez is a 85 year old male who presents for: Skin check. Desires: Total body skin check History of skin cancer?: Melanoma left upper back 10/2024, Breslow 1.2 mm, Perfecto IV Multiple NMSC Areas of particular concern?: Yes: spots on ears Past medical history is reviewed. Medication list is reviewed. Physical Exam included: Scalp, face, ears, neck, chest, back, abdomen, bilateral upper extremities, bilateral lower extremities, buttocks, hands, feet, nails and hair Intake information obtained by Alton Tarango LPN The documentation for this note was completed by Alton Tarango LPN acting as scribe for José Sheikh APRN.CNP. August 02, 2025 4:28 PM I agree with the Chief Complaint, ROS, and Past Histories independently gathered by the clinical administrative support clerk and the remaining scribed note accurately describes my personal service to the patient. José Shekih APRN.SHARON Allergies As of Date: 08/02/2025 Noted Allergy Reaction GLUTEN 04/11/2021 14 - Other: See Comments LACTOSE 04/11/2021 8 - GI Upset Date Reviewed: 08/02/2025 Reviewed by: Alton Tarango LPN - Fully Assessed Reason for Visit: Full Body Skin Check [1445] Primary Visit Diagnosis:AK (actinic keratosis) [L57.0] Other Visit Diagnoses:Multiple benign nevi [D22.9] Seborrheic keratosis [L82.1] Lentigines [L81.4] Deleon angioma [D18.01] Personal history of malignant melanoma of skin [Z85.820] History of nonmelanoma skin cancer [Z85.828] Skin cancer screening [Z12.83] Order(s):PHOTODYNAMIC THERAPY [[id number]] Order #: [id number] Prescriptions as of 08/02/2025 - amiodarone (PACERONE) 200 mg tablet Take 200 mg by mouth once daily. - ELIQUIS 5 mg tab(s) Take 5 mg by mouth two times a day. - dilTIAZem CD (CARDIZEM CD, CARTIA XT) 120 mg 24 hr capsule Take 120 mg by mouth once daily. - tamsulosin (FLOMAX) 0.4 mg Take 2 capsules by mouth once daily. - TRULICITY 1.5 mg/0.5 mL pen injector Inject 1.5 mg subcutaneously one time a week. - cetirizine (ZYRTEC) 10 mg tablet Take 1 tablet by mouth once daily. - clobetasol (TEMOVATE) 0.05 % ointment Apply to affected area twice daily as needed. Use 5 days per week. Not for face, armpits or groin - montelukast (SINGULAIR) 10 mg tablet Take 1 tablet by mouth daily at bedtime. - triamcinolone acetonide (KENALOG) 0.1 % ointment Apply to affected area twice daily as needed. Use for up to a week on stinging/burning areas of the face. DO NOT USE FOR MORE THAN ONE WEEK - triamcinolone acetonide (KENALOG) 0.1 % ointment Apply to affected area twice daily as needed. Apply to affected area twice daily as needed. - metFORMIN ER (GLUCOPHAGE XR) 500 mg 24 hr tablet - mupirocin (BACTROBAN) 2 % ointment Apply to affected area three times daily. - isosorbide mononitrate ER (IMDUR) 30 mg 24 hr tablet - atorvastatin (LIPITOR) 40 mg tablet - vit C/E/zinc ox/radha/lut/zeax (ICAPS AREDS2 ORAL) Take by mouth. - Vitamin E, dl, acetate, (VITAMIN E) 400 unit capsule Take 400 Units by mouth once daily. - vit A,C,O-Ynyz-Nbrdrr (PRESERVISION AREDS) 7,160 unit- 113 mg-100 unit tab - amlodipine besylate (AMLODIPINE ORAL) Take 5 mg by mouth two times a day. - valsartan (DIOVAN) 320 mg tablet Take 320 mg by mouth once daily. - hydroCHLOROthiazide (HYDRODIURIL, ESIDRIX) 25 mg tablet Take 25 mg by mouth every other day. - metoprolol succinate ER (TOPROL XL) 100 mg Take 100 mg by mouth once daily. 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 We had an opportunity to discuss my findings and any treatments I recommended. I believe that there are several steps that a person can do to help prevent skin cancers and to detect them at an early, treatable stage: 1. I highly recommend that once a month you perform your own complete skin check looking for changing or unusual spots. Use a wall-mounted mirror and a hand mirror to assist in seeing body areas that are difficult to see otherwise. If you have a family member that can assist, this is often helpful. Additional information can be obtained at: www.skincancer.org/fmvo-zjlmow-zvisyniuqzx/early-detection 2. In many cases, skin cancer can be prevented. The best way to protect yourself is to avoid too much sun and sunburns. Health care providers believe that ultraviolet rays (UV rays) from the sun damage the skin and over time lead to skin cancer. Here are ways to protect yourself: -Don't spend long periods of time in direct sunlight. -Wear hats with brims to protect your face and ears. -Wear long-sleeved shirts and pants to protect your arms and legs. -Use broad spectrum sunscreens with a SPF (skin protection factor) of 30 or higher that protect against burning and tanning rays. Apply the lotion 30 minutes before you go outside. (Broad-spectrum sunscreens protect against UV-B and UV-A rays.) -Wear sunglasses to protect your eyes. -Use a lip balm with sunscreen. -Avoid the sun between 10am and 4pm. -Show any changing mole to your health care provider. Disposition: Return in about 3 months (around 11/01/2025) for skin check. Follow-up and Disposition History for Encounter Date Provider Department Center 08/02/2025 [id number], LAUR[facility] Debbi [facility] Encounter Status:Closed by JOSÉ SHEIKH on 08/02/25 PROGRESS Observed: 08/02/2025 4:30 PM Status: COMPLETED Source: [facility] HNO ID: [id number] Author: JOSÉ SHEIKH APRN.ADVERTISING ASSISTANT Service: ? Author Type: Nurse Practitioner Type: Progress Notes Filed: 08/02/2025 17:00 Note Text: Department of Dermatology José Sheikh APRN.CNPLast visit in Dermatology: 05/10/2025 Objective/Assessment/Plan Skin Exam 1. AK (ACTINIC KERATOSIS) (3) Head - Anterior (Face), Left Ear, Right Ear Erythematous, hyperkeratotic papules Discussed etiology, prognosis, and treatment options. Recommend PDT in the fall/winter 2024. R/b/a for the treatment/medication(s) including possible side effects discussed and reviewed with patient. This Visit - PHOTODYNAMIC THERAPY 2. MULTIPLE BENIGN NEVI Generalized Multiple scattered pink papules with flaccid epidermis and small, symmetric kaur to brown macules with uniform pigmentation over the trunk and extremities. Observational course. Monitor for growth and changes. 3. SEBORRHEIC KERATOSIS Generalized Stuck-on verrucous, variably pigmented papules and plaques. Scattered to the trunk, bilateral upper extremities, bilateral lower extremities. Observational course. Monitor for growth and changes. 4. LENTIGINES Generalized Densely scattered light kaur macules and small patches on all sun exposed areas. Observational course. Monitor for growth and changes. 5. DELEON ANGIOMA Generalized Deleon-red papules scattered to the trunk, bilateral upper extremities, bilateral lower extremities. Observational course. Monitor for growth and changes. 6. PERSONAL HISTORY OF MALIGNANT MELANOMA OF SKIN Left Upper Back No evidence of recurrence at previous surgical site Recommend Q3 month skin exams and regular dermatology follow up 7. HISTORY OF NONMELANOMA SKIN CANCER Generalized No evidence of recurrence at previous surgical site Recommend Q3 month skin exams and regular dermatology follow up 8. SKIN CANCER SCREENING Generalized The patient's skin was examined for evidence of cutaneous malignancy. The nature of sun-induced photo-aging and skin cancers is discussed. Sun avoidance, protective clothing, and the use of 30-SPF sunscreens is advised. Patient is instructed to perform regular self exams. Patient instructed to observe for changing, symptomatic, or new skin lesions and encouraged to contact our office for evaluation. Follow-up as noted below or as needed. Chief Complaint: Patient presents with: Full Body Skin Check Subjective and Objective HPI: Raya Vazquez is a 85 year old male who presents for: Skin check. Desires: Total body skin check History of skin cancer?: Melanoma left upper back 10/2024, Breslow 1.2 mm, Perfecto IV Multiple NMSC Areas of particular concern?: Yes: spots on ears Past medical history is reviewed. Medication list is reviewed. Physical Exam included: Scalp, face, ears, neck, chest, back, abdomen, bilateral upper extremities, bilateral lower extremities, buttocks, hands, feet, nails and hair Intake information obtained by Alton Tarango LPN The documentation for this note was completed by Alton Tarango LPN acting as scribe for José Sheikh APRN.CNP. August 02, 2025 4:28 PM I agree with the Chief Complaint, ROS, and Past Histories independently gathered by the clinical administrative support clerk and the remaining scribed note accurately describes my personal service to the patient. José Sheikh APRN.CNP PROGRESS Observed: 07/11/2025 3:34 PM Status: COMPLETED Source: [facility] HNO ID: [id number] Author: JOSE RAMON ROBERSON MD Service: ? Author Type: Physician Type: Progress Notes Filed: 07/11/2025 16:26 Note Text: CC - surveillance visit for history of Stage IB melanoma HPI - The patient is a 85-year-old male, with a history of stage IB melanoma, s/p wide local excision on 11/27/2024 who is presenting for follow-up. The patient reports a recent diagnosis of A-fib, for which he is currently on anticoagulation therapy. He denies experiencing any side effects from the anticoagulant. He is scheduled for a cardioversion at the end of the month. He denies any episodes of cephalalgia, seizures, or stroke-like symptoms. He does report a mild cough and congestion, but notes that these symptoms are not worsening over time. He was scheduled for Mohs surgery on his ear 1-2 weeks ago, but it was postponed on medical advice. He continues to follow up with his crop adjuster, with an appointment scheduled for the end of the month or the beginning of July. He denies any new lumps or bumps, and is maintaining his weight without issues. He denies abdominal pain, hematuria, or hematochezia. ROS - Constitutional: (-) weight loss Head: (-) headache Ears/Nose/Mouth/Throat: (+) nasal congestion Respiratory: (+) cough Gastrointestinal: (-) abdominal pain Skin: (-) new lumps or bumps Neurological: (-) seizures, (-) stroke-like symptoms Physical Exam - General: Well-appearing, looks younger than stated age. Psych: Appropriate and interactive. Skin: Left back with healed surgical site, no suspicious lesions noted, no subcutaneous masses palpated. Lymph: No lymphadenopathy of cervical, occipital, supraclavicular, or axillary areas. Extremities: No lymphedema noted Assessment and Plan - 1. 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 No lymph node involvement detected on examination. No new lesions or suspicious changes observed. Patient under regular dermatological surveillance. - Continue regular dermatological follow-ups; next appointment scheduled for the end of the month or beginning of July. - Scheduled follow-up in our clinic in 6 months to monitor for recurrence. - Advised to report any new lesions or changes in health immediately. 2. Paroxysmal atrial fibrillation (HCC) (I48.0) Newly diagnosed, currently managed with anticoagulation therapy. Scheduled for cardioversion at the end of the month. No adverse effects from anticoagulation reported. - Continue anticoagulation therapy as prescribed. - Monitor for any signs of bleeding or bruising; advised to seek immediate medical attention for any significant events. - Follow-up with cardiology post-cardioversion. Jose Ramon Roberson MD, FACS CNOV Observed: 07/05/2025 4:30 PM Status: COMPLETED Source: [facility] Office Visit (GENM4) RAYA VAZQUEZ ([id number]) 1940 M Date Time Provider Department 07/05/25 4:30 PM JOSE RAMON ROBERSON4 During your visit today, we recorded the following information about you: Temperature Pulse Respiration Blood pressure 97.5 degrees 75/minute 24/minute 122/57 Jose Ramon Roberson MD 07/11/2025 4:26 PM Signed CC - surveillance visit for history of Stage IB melanoma HPI - The patient is a 85-year-old male, with a history of stage IB melanoma, s/p wide local excision on 11/27/2024 who is presenting for follow-up. The patient reports a recent diagnosis of A-fib, for which he is currently on anticoagulation therapy. He denies experiencing any side effects from the anticoagulant. He is scheduled for a cardioversion at the end of the month. He denies any episodes of cephalalgia, seizures, or stroke-like symptoms. He does report a mild cough and congestion, but notes that these symptoms are not worsening over time. He was scheduled for Mohs surgery on his ear 1-2 weeks ago, but it was postponed on medical advice. He continues to follow up with his crop adjuster, with an appointment scheduled for the end of the month or the beginning of July. He denies any new lumps or bumps, and is maintaining his weight without issues. He denies abdominal pain, hematuria, or hematochezia. ROS - Constitutional: (-) weight loss Head: (-) headache Ears/Nose/Mouth/Throat: (+) nasal congestion Respiratory: (+) cough Gastrointestinal: (-) abdominal pain Skin: (-) new lumps or bumps Neurological: (-) seizures, (-) stroke-like symptoms Physical Exam - General: Well-appearing, looks younger than stated age. Psych: Appropriate and interactive. Skin: Left back with healed surgical site, no suspicious lesions noted, no subcutaneous masses palpated. Lymph: No lymphadenopathy of cervical, occipital, supraclavicular, or axillary areas. Extremities: No lymphedema noted Assessment and Plan - 1. 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 No lymph node involvement detected on examination. No new lesions or suspicious changes observed. Patient under regular dermatological surveillance. - Continue regular dermatological follow-ups; next appointment scheduled for the end of the month or beginning of July. - Scheduled follow-up in our clinic in 6 months to monitor for recurrence. - Advised to report any new lesions or changes in health immediately. 2. Paroxysmal atrial fibrillation (HCC) (I48.0) Newly diagnosed, currently managed with anticoagulation therapy. Scheduled for cardioversion at the end of the month. No adverse effects from anticoagulation reported. - Continue anticoagulation therapy as prescribed. - Monitor for any signs of bleeding or bruising; advised to seek immediate medical attention for any significant events. - Follow-up with cardiology post-cardioversion. 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 - dilTIAZem CD (CARDIZEM CD, CARTIA XT) 120 mg 24 hr capsule Take 120 mg by mouth once daily. - tamsulosin (FLOMAX) 0.4 mg Take 2 capsules by mouth once daily. - TRULICITY 1.5 mg/0.5 mL pen injector Inject 1.5 mg subcutaneously one time a week. - cetirizine (ZYRTEC) 10 mg tablet Take 1 tablet by mouth once daily. - clobetasol (TEMOVATE) 0.05 % ointment Apply to affected area twice daily as needed. Use 5 days per week. Not for face, armpits or groin - montelukast (SINGULAIR) 10 mg tablet Take 1 tablet by mouth daily at bedtime. - triamcinolone acetonide (KENALOG) 0.1 % ointment Apply to affected area twice daily as needed. Use for up to a week on stinging/burning areas of the face. DO NOT USE FOR MORE THAN ONE WEEK - triamcinolone acetonide (KENALOG) 0.1 % ointment Apply to affected area twice daily as needed. Apply to affected area twice daily as needed. - metFORMIN ER (GLUCOPHAGE XR) 500 mg 24 hr tablet - mupirocin (BACTROBAN) 2 % ointment Apply to affected area three times daily. - isosorbide mononitrate ER (IMDUR) 30 mg 24 hr tablet - atorvastatin (LIPITOR) 40 mg tablet - vit C/E/zinc ox/radha/lut/zeax (ICAPS AREDS2 ORAL) Take by mouth. - Vitamin E, dl, acetate, (VITAMIN E) 400 unit capsule Take 400 Units by mouth once daily. - vit A,C,X-Ylze-Vbcryp (PRESERVISION AREDS) 7,160 unit- 113 mg-100 unit tab - amlodipine besylate (AMLODIPINE ORAL) Take 5 mg by mouth two times a day. - valsartan (DIOVAN) 320 mg tablet Take 320 mg by mouth once daily. - hydroCHLOROthiazide (HYDRODIURIL, ESIDRIX) 25 mg tablet Take 25 mg by mouth every other day. - metoprolol succinate ER (TOPROL XL) 100 mg Take 100 mg by mouth once daily. 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 Acute cystitis with hematuria [N30.01] 04/09/2023 OAB (overactive bladder) [N32.81] 04/09/2023 NO SHOW 06/04/2024 Level of Service: OFFICE/OUTPATIENT ESTABLISHED LOW MDM 20 MIN [31011] Additional E/M codes: VISIT CPLX INHERENT EANDM ASSOC WITH MED * LOS History for Encounter Level of Service: OFFICE/OUTPATIENT ESTABLISHED LOW MDM 20 MIN[42769] Date AND Time: 07-11-2025 4:25 PM Recorded by User: JOSE RAMON ROBERSON Encounter Status:Closed by JOSE RAMON ROBERSON on 07/11/25 XR CHEST 2V FRONTAL/LAT Observed: 2024 4:21 PM Status: F Source: [facility] * * *Final Report* * * DATE OF EXAM: Jun 14 2025 4:21PM WOX [id number] - XR CHEST 2V FRONTAL/LAT / PROCEDURE REASON: multiple diagnoses * * * * Physician Interpretation * * * * EXAMINATION: CHEST RADIOGRAPH (2 VIEW FRONTAL and LATERAL) CLINICAL HISTORY: Fever, unspecified fever cause URI, acute MQ: [id number] EXAM DATE/TIME: 06/14/2025 4:21 PM COMPARISON: Chest x-ray on 11/25/2023 RESULT: Lines, tubes, and devices: None. Lungs and pleura: No consolidation. No lung mass. No pleural effusion. No pneumothorax. Cardiomediastinal silhouette: Stable cardiomediastinal silhouette. Bones and soft tissues: There are degenerative changes in the spine. IMPRESSION: No acute radiographic abnormality. Hydro Technician: MOY Transcribe Date/Time: Jun 14 2025 4:28P Dictated by : KIMBERLEY RAMOS MD This examination was interpreted and the report reviewed and electronically signed by: KIMBERLEY RAMOS MD on Jun 14 2025 4:28PM EST [id number] ECG COMPLETE Observed: 06/14/2025 4:10 PM Status: F Source: [facility] Ventricular Rate : 89 BPM Atrial Rate : 89 BPM P-R Interval : 272 ms QRS Duration : 78 ms Q-T Interval : 352 ms QTC Calculation(Bazett) : 428 ms Calculated P [place] : 57 degrees Calculated R [place] : 19 degrees Calculated T [place] : 53 degrees SINUS RHYTHM WITH 1ST DEGREE AV BLOCK EARLY REPOLARIZATION OTHERWISE NORMAL ECG Confirmed by MD ARMSTRONG QARAB ([id number]) on 08/27/2025 1:14:32 PM NAME : RAYA VAZQUEZ PID : [id number] : 1940 Gender : Male Race : ORD : [id number] Procedure Date : Jun 14 2025 16:10:37 Edit Date : Aug 27 2025 13:32:28 Diagnosis: SINUS RHYTHM WITH 1ST DEGREE AV BLOCK EARLY REPOLARIZATION OTHERWISE NORMAL ECG Confirmed by MD ARMSTRONG QARAB ([id number]) on 08/27/2025 1:14:32 PM Test Reason : R50.9 Fever, unspecified fever cause Location : 726 : [place] Overread By : MD ARMSTRONG QARAB Edited By : MD ARMSTRONG QARAB Referred By : , Acquired by : SARANYA Sarkar Observed: 06/14/2025 4:00 PM Status: COMPLETED Source: [facility] HNO ID: [id number] Author: AGUSTIN IVAN RT(R) Service: ? Author Type: Product Manager Type: Progress Notes Filed: 06/14/2025 16:20 Note Text: Radiology Service Progress Note PATIENT NAME: Raya Vazquez DATE OF SERVICE: June 14, 2025 TIME: 3:58 PM PATIENT IDENTITY VERIFICATION COMPLETED USING TWO (2) IDENTIFIERS: Name and Date of confirmed by patient verbally. FALL SCREENING: Has the patient had 2 falls in the last year or 1 fall with injury or currently using an Ambulatory Assistive Device (Walker, Cane, Wheelchair, Crutches, etc.)? No PATIENT GENDER DATA: Assigned male at PATIENT RELEVANT IMPLANT DATA REVIEWED: Yes PATIENT PRESENTS WITH AN IMPLANTABLE OR ATTACHED TRAFFIC TECHNICIAN: No RADIOLOGY DEPARTMENT: General X-ray: Exam(s) Completed: Chest X-Ray PERIPHERAL IV DATA: Not applicable SIGNED BY: RT Rodolfo(R) June 14, 2025 3:58 PM PROGRESS Observed: 06/14/2025 3:50 PM Status: COMPLETED Source: [facility] HNO ID: [id number] Author: KRIS SALDANA MD Service: ? Author Type: Physician Type: Progress Notes Filed: 06/14/2025 16:40 Note Text: [facility] Vazquez is a 85 year old male. Patient presents with: Chest Congestion: Shortness of Breath, wheeze, tightness in chest, nasal drainage, nasal congestion x 2 days Pt here with mid sternal chest disconfort when taking a deep breath but also a uri which he states has had all summer and an occ cough + fever no chills no bodyaches no st states he does not feel it is his heart! No dyspnea on exertion no arm pain no N/v no jaw pain Review of Systems Constitutional: Positive for fever. Negative for chills and fatigue. HENT: Positive for congestion, postnasal drip, sinus pressure and sinus pain. Negative for sore throat. Respiratory: Positive for cough, chest tightness and shortness of breath. Negative for wheezing and stridor. Cardiovascular: Negative for chest pain, palpitations and leg swelling. Neurological: Negative for dizziness. Objective BP 138/68 Pulse 98 Temp 37.7 ?C (99.9 ?F) Resp 24 Wt 104 kg (229 lb 4.5 oz) SpO2 96% BMI 33.86 kg/m? Physical Exam Vitals and nursing note reviewed. Constitutional: Appearance: Normal appearance. He is not ill-appearing. Cardiovascular: Rate and Rhythm: Normal rate and regular rhythm. Heart sounds: Normal heart sounds. Pulmonary: Effort: Pulmonary effort is normal. Breath sounds: Normal breath sounds. No stridor. No wheezing, rhonchi or rales. Neurological: Mental Status: He is alert and oriented to person, place, and time. Psychiatric: Mood and Affect: Mood normal. Behavior: Behavior normal. EKG: sinus rhythm with 1 degree AV block Mild St elevations in 2 ,3 avf {ASSESSMENT/PLAN: 1. Fever, unspecified fever cause - ICD9: 780.60, ICD10: R50.9 (primary diagnosis) - COVID-19 MOLECULAR (POC) - INFLUENZA AANDB MOLECULAR (POC) - XR CHEST 2V FRONTAL/LAT - ECG COMPLETE 2. URI, acute - ICD9: 465.9, ICD10: J06.9 - COVID-19 MOLECULAR (POC) - INFLUENZA AANDB MOLECULAR (POC) - XR CHEST 2V FRONTAL/LAT 3. Dyspnea, unspecified type - ICD9: 786.09, ICD10: R06.00 - XR CHEST 2V FRONTAL/LAT - ECG COMPLETE 4. Chest pain, unspecified type - ICD9: 786.50, ICD10: R07.9 Kris Saldana MD History and Record Review External record(s) reviewed: prior outpatient record. Systemic symptoms present included: DYSPNEA Differential Diagnoses - cardiac ischemia is more likely for the following reason(s): St elevations, suggested by HANDP and consistent with imaging Management Management of the patient was discussed with:ED Physician or Supervisory/Collaborating Physician Discussion with ED Physician or Supervisory/Collaborating Physician included: discussed with fruitland ed pt refuses transport will await arrival for immediate eval Disposition The patient was discharged. Procedures CNOV Observed: 06/14/2025 3:30 PM Status: COMPLETED Source: [facility] Office Visit ([facility]) RAYA VAZQUEZ ([id number]) 1940 M Date Time Provider Department 06/14/25 3:30 PM KRIS SALDANA During your visit today, we recorded the following information about you: Temperature Pulse Respiration Blood pressure 99.9 degrees 98/minute 24/minute 138/68 Weight 104 kg Kris Saldana MD 06/14/2025 4:40 PM Signed [facility] Subjective Raya Vazquez is a 85 year old male. Patient presents with: Chest Congestion: Shortness of Breath, wheeze, tightness in chest, nasal drainage, nasal congestion x 2 days Pt here with mid sternal chest disconfort when taking a deep breath but also a uri which he states has had all summer and an occ cough + fever no chills no bodyaches no st states he does not feel it is his heart! No dyspnea on exertion no arm pain no N/v no jaw pain Review of Systems Constitutional: Positive for fever. Negative for chills and fatigue. HENT: Positive for congestion, postnasal drip, sinus pressure and sinus pain. Negative for sore throat. Respiratory: Positive for cough, chest tightness and shortness of breath. Negative for wheezing and stridor. Cardiovascular: Negative for chest pain, palpitations and leg swelling. Neurological: Negative for dizziness. Objective BP 138/68 Pulse 98 Temp 37.7 ?C (99.9 ?F) Resp 24 Wt 104 kg (229 lb 4.5 oz) SpO2 96% BMI 33.86 kg/m? Physical Exam Vitals and nursing note reviewed. Constitutional: Appearance: Normal appearance. He is not ill-appearing. Cardiovascular: Rate and Rhythm: Normal rate and regular rhythm. Heart sounds: Normal heart sounds. Pulmonary: Effort: Pulmonary effort is normal. Breath sounds: Normal breath sounds. No stridor. No wheezing, rhonchi or rales. Neurological: Mental Status: He is alert and oriented to person, place, and time. Psychiatric: Mood and Affect: Mood normal. Behavior: Behavior normal. EKG: sinus rhythm with 1 degree AV block Mild St elevations in 2 ,3 avf {ASSESSMENT/PLAN: 1. Fever, unspecified fever cause - ICD9: 780.60, ICD10: R50.9 (primary diagnosis) - COVID-19 MOLECULAR (POC) - INFLUENZA AANDB MOLECULAR (POC) - XR CHEST 2V FRONTAL/LAT - ECG COMPLETE 2. URI, acute - ICD9: 465.9, ICD10: J06.9 - COVID-19 MOLECULAR (POC) - INFLUENZA AANDB MOLECULAR (POC) - XR CHEST 2V FRONTAL/LAT 3. Dyspnea, unspecified type - ICD9: 786.09, ICD10: R06.00 - XR CHEST 2V FRONTAL/LAT - ECG COMPLETE 4. Chest pain, unspecified type - ICD9: 786.50, ICD10: R07.9 Kris Saldana MD History and Record Review External record(s) reviewed: prior outpatient record. Systemic symptoms present included: DYSPNEA Differential Diagnoses - cardiac ischemia is more likely for the following reason(s): St elevations, suggested by HANDP and consistent with imaging Management Management of the patient was discussed with:ED Physician or Supervisory/Collaborating Physician Discussion with ED Physician or Supervisory/Collaborating Physician included: discussed with fruitland ed pt refuses transport will await arrival for immediate eval Disposition The patient was discharged. Procedures Kris Saldana MD 06/14/2025 4:36 PM Signed YOU WILL NEED AN EVALUATION IN THE [place] [facility] NOW Allergies As of Date: 06/14/2025 Noted Allergy Reaction GLUTEN 04/11/2021 14 - Other: See Comments LACTOSE 04/11/2021 8 - GI Upset Date Reviewed: 06/14/2025 Reviewed by: Natividad Alba LPN - Fully Assessed Reason for Visit: Chest Congestion [236] Cmt: Shortness of Breath, wheeze, tightness in chest, nasal drainage, nasal congestion x 2 days Primary Visit Diagnosis:Fever, unspecified fever cause [R50.9] Other Visit Diagnoses:URI, acute [J06.9] Dyspnea, unspecified type [R06.00] Chest pain, unspecified type [R07.9] Order(s):COVID-19 MOLECULAR (POC) [7428397] Order #: [id number]. #:[id number] INFLUENZA AANDB MOLECULAR (POC) [[id number]] Order #: [id number]. #:[id number] [id number] CHEST 2V FRONTAL/LAT [[id number]] Order #: [id number]. #:[id number] ECG COMPLETE [ECG01] Order #: [id number]. #:[id number] Prescriptions as of 06/14/2025 - tamsulosin (FLOMAX) 0.4 mg Take 2 capsules by mouth once daily. - TRULICITY 1.5 mg/0.5 mL pen injector Inject 1.5 mg subcutaneously one time a week. - cetirizine (ZYRTEC) 10 mg tablet Take 1 tablet by mouth once daily. - clobetasol (TEMOVATE) 0.05 % ointment Apply to affected area twice daily as needed. Use 5 days per week. Not for face, armpits or groin - montelukast (SINGULAIR) 10 mg tablet Take 1 tablet by mouth daily at bedtime. - triamcinolone acetonide (KENALOG) 0.1 % ointment Apply to affected area twice daily as needed. Use for up to a week on stinging/burning areas of the face. DO NOT USE FOR MORE THAN ONE WEEK - triamcinolone acetonide (KENALOG) 0.1 % ointment Apply to affected area twice daily as needed. Apply to affected area twice daily as needed. - metFORMIN ER (GLUCOPHAGE XR) 500 mg 24 hr tablet - mupirocin (BACTROBAN) 2 % ointment Apply to affected area three times daily. - isosorbide mononitrate ER (IMDUR) 30 mg 24 hr tablet - atorvastatin (LIPITOR) 40 mg tablet - vit C/E/zinc ox/radha/lut/zeax (ICAPS AREDS2 ORAL) Take by mouth. - Vitamin E, dl, acetate, (VITAMIN E) 400 unit capsule Take 400 Units by mouth once daily. - vit A,C,T-Bhru-Jvnlbs (PRESERVISION AREDS) 7,160 unit- 113 mg-100 unit tab - amlodipine besylate (AMLODIPINE ORAL) Take 5 mg by mouth two times a day. - valsartan (DIOVAN) 320 mg tablet Take 320 mg by mouth once daily. - hydroCHLOROthiazide (HYDRODIURIL, ESIDRIX) 25 mg tablet Take 25 mg by mouth every other day. - metoprolol succinate ER (TOPROL XL) 100 mg Take 100 mg by mouth once daily. 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 Acute cystitis with hematuria [N30.01] 04/09/2023 OAB (overactive bladder) [N32.81] 04/09/2023 NO SHOW 06/04/2024 Other instructions from your clinician: YOU WILL NEED AN EVALUATION IN THE [place] [facility] NOW Level of Service: OFFICE/OUTPATIENT [facility] 60 MINUTES [10492] Encounter Status:Closed by KRIS SALDANA on 06/14/25 TISS PATH BX REPORT Collected: 05/10/2025 1:[address] atus: F Source: [facility] Order Comment: Specimen Type : TISSUE SPECIMEN Ordering Facility: [facility] Address: [address] [place] [address] TYPE CODE TESTS RESULT OUT OF RANGE REFERENCE UNITS PATHOLOGY [id number] CASE REPORT Result Comment: Surgical Pat hology Report Case: [id number] Authorizing Provider: José Sheikh, Collected: 05/10/2025 01:34 PM EEG TECHAntoinnoADVERTISING ASSISTANT Ordering Location: Dermatology Received: 05/10/2025 03:03 PM Pathologist: Rafy Guardado MD, PhD Specimen: Skin, Right [place] PATHOLOGY [id number] FINAL DIAGNOSIS Result Comment: A. Skin, rig ht superior helix, shave biopsy: - Invasive moderately-differentiated squamous cell carcinoma. AF/EB/IO 05/11/2025 at 1519 EDT PATHOLOGY [id number] GROSS DESCRIPTION A. Skin Result Comment: Received in formalin is a 0.6 x 0.5 x 0.3 cm shave of skin. On the skin surface there is a 0.5 cm kaur, elevated area. The specimen is bisected. Totally submitted in one cassette. DB May 10, 2025 9:25 PM Gross examination performed at [facility], [address] [place] [address] PATHOLOGY CDX2 CLINICAL HISTORY Result Comment: 7 x 6 mm stella thematous hyperkeratotic papule PATHOLOGY FPLAB FINAL PERFORMING LAB Result Comment: Diagnostic i nterpretation performed at: [facility], [address] [place] [address], [facility] [place] [address] CLIA# [id number] Manager Portable: Calixto Kraft MD PATHOLOGY [id number] AP DISCLAIMER Result Comment: Laboratory D eveloped Test (LDT) Disclaimer: Performance characteristics of immunohistochemical, immunofluorescent, and chromogenic in-situ hybridization tests have been determined by the performing laboratory within [facility]'s [facility] Pathology and Laboratory Medicine Department ([facility], [facility], [facility], [facility], [facility], [facility], or [facility]) in a manner consistent with CLIA requirements. One or more of these tests may not have been cleared or approved by the FDA. [facility] is regulated under CLIA as qualified to perform high-complexity testing. These tests are used for clinical purposes. These should not be regarded as investigational or for research. Positive and negative controls stain appropriately. Performed By: #### [id number] # ### [facility] CLIA [id number] [address] [place] [address] [place] PROGRESS Observed: 05/10/2025 1:30 PM Status: COMPLETED Source: [facility] HNO ID: [id number] Author: JOSÉ SHEIKH APRN.ADVERTISING ASSISTANT Service: ? Author Type: Nurse Practitioner Type: Progress Notes Filed: 05/10/2025 14:34 Note Text: Department of Dermatology José Sheikh APRN.CNPLast visit in Dermatology: 04/12/2025 Objective/Assessment/Plan Skin Exam 1. NEOPLASM OF UNSPECIFIED BEHAVIOR OF BONE, SOFT TISSUE, AND SKIN Right [place] 7 x 6 mm erythematous hyperkeratotic papule SKIN / NAIL BIOPSY Type of biopsy: tangential Informed consent: discussed and consent obtained Timeout: patient name, date of , surgical site, and procedure verified Procedure prep: Patient was prepped and draped in usual sterile fashion Prep type: Isopropyl alcohol Anesthesia: the lesion was anesthetized in a standard fashion Anesthetic: 1% lidocaine w/ epinephrine 1-100,000 local infiltration Instrument used: DermaBlade Hemostasis achieved with: aluminum chloride Outcome: patient tolerated procedure well Post-procedure details: sterile dressing applied Dressing type: bandage and petrolatum Specimen A - Surgical Pathology 2. AK (ACTINIC KERATOSIS) (5) Left Buccal Cheek, Right Forearm - Posterior, Right Forehead (2), Right Moravian Erythematous, hyperkeratotic papules CRYOTHERAPY SKIN LESION - Left Buccal Cheek, Right Forearm - Posterior, Right Forehead (2), Right [place]avian Complexity: simple Destruction method: cryotherapy Informed consent: discussed and consent obtained Timeout: patient name, date of , surgical site, and procedure verified Lesion destroyed using liquid nitrogen: Yes Cryotherapy cycles: 2 Outcome: patient tolerated procedure well with no complications Post-procedure details: wound care instructions given Additional details: Actinic keratosis - Discussed premalignant etiology - Discussed risks and benefits of treatment options including cryotherapy vs Efudex 5% vs. Photodynamic Therapy (PDT). - Given recommend local therapy with cryotherapy. - Patient elects for treatment with Cryotherapy: Risks, benefits, alternatives, complications, and personnel required for cryosurgery were reviewed with the patient. Specifically, the risks of permanent scarring, loss or darkening of skin color, blister, incomplete treatment, and recurrence of the lesion were discussed. The patient verbalizes understanding and wishes to proceed. - Cryosurgery performed with Liquid Nitrogen via cryostat spray gun to Actinic Keratosis . - Patient tolerated well and wound care was discussed. Return if lesions fail to fully resolve. Related Medications Aminolevulinic Acid HCl 20 % soln 1 Each 3. MULTIPLE BENIGN NEVI Generalized Multiple scattered pink papules with flaccid epidermis and small, symmetric kaur to brown macules with uniform pigmentation over the trunk and extremities. Observational course. Monitor for growth and changes. 4. SEBORRHEIC KERATOSIS Generalized Stuck-on verrucous, variably pigmented papules and plaques. Scattered to the trunk, bilateral upper extremities, bilateral lower extremities. Observational course. Monitor for growth and changes. 5. LENTIGINES Generalized Densely scattered light kaur macules and small patches on all sun exposed areas. Observational course. Monitor for growth and changes. 6. DELEON ANGIOMA Generalized Deleon-red papules scattered to the trunk, bilateral upper extremities, bilateral lower extremities. Observational course. Monitor for growth and changes. 7. 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 SKIN CANCER SCREENING Generalized The patient's skin was examined for evidence of cutaneous malignancy. The nature of sun-induced photo-aging and skin cancers is discussed. Sun avoidance, protective clothing, and the use of 30-SPF sunscreens is advised. Patient is instructed to perform regular self exams. Patient instructed to observe for changing, symptomatic, or new skin lesions and encouraged to contact our office for evaluation. Follow-up as noted below or as needed. Chief Complaint: Patient presents with: Full Body Skin Check Subjective and Objective HPI: Raya Vazquez is a 85 year old male who presents for: Skin check. Desires: Total body skin check History of skin cancer?: Yes: Melanoma left upper back 10/2024, Breslow 1.2 mm, Perfecto IV Multiple NMSC Areas of particular concern?: Yes: spot on right forearm Past medical history is reviewed. Medication list is reviewed. Physical Exam included: Scalp, face, ears, neck, chest, back, abdomen, bilateral upper extremities, bilateral lower extremities, buttocks, hands, feet, nails and hair Procedure: shave biopsy Informed Consent Consent Obtained: Verbal [place] Protocol A moment to CARE was completed SIGN IN Personnel directly involved with the procedure wore the appropriate PPE Special Equipment: N/A Patient/Surrogate Stated/Verified: Patient name, Date of , Relevant allergies and Intended procedure TIME OUT No relevant labs, photos, and/or imaging studies were applicable for review. Consent documented and matches the intended procedure Correct side/site marked and visible. Medications required for procedure verified. Fire risk assessed and interventions discussed. No implant(s) inserted. SIGN OUT All instruments, equipment, possible retained foreign bodies accounted for. Shave Intake information obtained by Alton Tarango LPN The documentation for this note was completed by Alton Tarango LPN acting as scribe for José Sheikh APRN.CNP. May 10, 2025 1:33 PM I agree with the Chief Complaint, ROS, and Past Histories independently gathered by the clinical administrative support clerk and the remaining scribed note accurately describes my personal service to the patient. José Sheikh APRN.SHARON CNOV Observed: 05/10/2025 1:30 PM Status: COMPLETED Source: [facility] Office Visit (DERMST) RAYA VAZQUEZ ([id number]) 1940 M Date Time Provider Department 05/10/25 1:30 PM JOSÉ SHEIKH During your visit today, we recorded the following information about you: Alton Tarango LPN 05/10/2025 1:37 PM Addendum GENERAL SUN SAFETY Thank you for allowing me to examine you for signs of skin cancer today. We had an opportunity to discuss my findings and any treatments I recommended. I believe that there are several steps that a person can do to help prevent skin cancers and to detect them at an early, treatable stage: 1. I highly recommend that once a month you perform your own complete skin check looking for changing or unusual spots. Use a wall-mounted mirror and a hand mirror to assist in seeing body areas that are difficult to see otherwise. If you have a family member that can assist, this is often helpful. Additional information can be obtained at: www.skincancer.org/mdan-ggplkg-dtzbxecujml/early-detection 2. In many cases, skin cancer can be prevented. The best way to protect yourself is to avoid too much sun and sunburns. Health care providers believe that ultraviolet rays (UV rays) from the sun damage the skin and over time lead to skin cancer. Here are ways to protect yourself: -Don't spend long periods of time in direct sunlight. -Wear hats with brims to protect your face and ears. -Wear long-sleeved shirts and pants to protect your arms and legs. -Use broad spectrum sunscreens with a SPF (skin protection factor) of 30 or higher that protect against burning and tanning rays. Apply the lotion 30 minutes before you go outside. (Broad-spectrum sunscreens protect against UV-B and UV-A rays.) -Wear sunglasses to protect your eyes. -Use a lip balm with sunscreen. -Avoid the sun between 10am and 4pm. -Show any changing mole to your health care provider. SKIN CARE AFTER CRYOSURGERY The skin's response to cryosurgery (freezing) can be mild to severe, depending on the depth of the freeze and location of the area treated. You may have minimal redness and swelling with little discomfort or significant discoloration and blistering with considerable discomfort. A burning sensation in the skin may last from several minutes to several hours after the procedure. Follow these instructions when caring for an area treated by cryosurgery: 1. Please clean the area every day with gentle soap and water. It is not necessary to cover the site with a bandage. However, it may be used for protection and it must be changed daily. Do not leave a soiled or wet bandage on the wound. 2. If you are experiencing discomfort you may use a cool compress, elevate the area or take over the counter pain relievers. 3. Apply Vaseline or Aquaphor daily to the site. This can help with itching, irritation, and discomfort. -The lesion may take 2-4 weeks to fully resolve. Depending on the severity of treatment and lesion treated, it may take longer. -DO NOT USE NEOSPORIN OR BACITRACIN as there is a fairly high incidence of allergic response to these products. -You may experience some mild discomfort, redness, swelling, and/or a clear discharge from the wound after your procedure. Severe pain, worsening swelling, and foul-smelling discharge from the site are NOT to be expected. If you have concerns about how your wounds are healing, please send your provider a Fun[employer]ol message or call . CARE FOR YOUR SHAVE BIOPSY SITE Please follow these instructions for daily wound care: 1. Wash the area every day with gentle soap and water. 2. Apply a thin layer of Vaseline or Aquaphor to the wound site to keep the area slightly ?greasy? at all time (this helps to prevent scabbing). Please do not use an old tub of ointment as this can introduce germs into your wound and cause infection. 3. Cover with a bandage and continue this daily process until the wound is healed. Do not leave a soiled or wet bandage on the wound. -Keep the area clean and dry with the bandage in place the day of surgery. -If you experience any bleeding, please apply pressure to the area for approximately 10 minutes. -You may shower, but do not soak in a bathtub, hot tub, pool, melton, etc until after the wound has healed. -DO NOT USE NEOSPORIN OR BACITRACIN as there is a fairly high incidence of allergic response to these products. -You may experience some mild discomfort, redness, swelling, and/or a clear discharge from the wound after your procedure. Severe pain, worsening swelling, and foul-smelling discharge from the site are NOT to be expected. If you have concerns about how your wounds are healing, please send your provider a Fun[employer]ol message or call . José Sheikh APRN.CNP 05/10/2025 2:34 PM Signed Department of Dermatology José Sheikh APRN.CNP Last visit in Dermatology: 04/12/2025 Objective/Assessment/Plan Skin Exam 1. NEOPLASM OF UNSPECIFIED BEHAVIOR OF BONE, SOFT TISSUE, AND SKIN Right Superior [place] 7 x 6 mm erythematous hyperkeratotic papule SKIN / NAIL BIOPSY Type of biopsy: tangential Informed consent: discussed and consent obtained Timeout: patient name, date of , surgical site, and procedure verified Procedure prep: Patient was prepped and draped in usual sterile fashion Prep type: Isopropyl alcohol Anesthesia: the lesion was anesthetized in a standard fashion Anesthetic: 1% lidocaine w/ epinephrine 1-100,000 local infiltration Instrument used: DermaBlade Hemostasis achieved with: aluminum chloride Outcome: patient tolerated procedure well Post-procedure details: sterile dressing applied Dressing type: bandage and petrolatum Specimen A - Surgical Pathology 2. AK (ACTINIC KERATOSIS) (5) Left Buccal Cheek, Right Forearm - Posterior, Right Forehead (2), Right Moravian Erythematous, hyperkeratotic papules CRYOTHERAPY SKIN LESION - Left Buccal Cheek, Right Forearm - Posterior, Right Forehead (2), Right [place]avian Complexity: simple Destruction method: cryotherapy Informed consent: discussed and consent obtained Timeout: patient name, date of , surgical site, and procedure verified Lesion destroyed using liquid nitrogen: Yes Cryotherapy cycles: 2 Outcome: patient tolerated procedure well with no complications Post-procedure details: wound care instructions given Additional details: Actinic keratosis - Discussed premalignant etiology - Discussed risks and benefits of treatment options including cryotherapy vs Efudex 5% vs. Photodynamic Therapy (PDT). - Given recommend local therapy with cryotherapy. - Patient elects for treatment with Cryotherapy: Risks, benefits, alternatives, complications, and personnel required for cryosurgery were reviewed with the patient. Specifically, the risks of permanent scarring, loss or darkening of skin color, blister, incomplete treatment, and recurrence of the lesion were discussed. The patient verbalizes understanding and wishes to proceed. - Cryosurgery performed with Liquid Nitrogen via cryostat spray gun to Actinic Keratosis . - Patient tolerated well and wound care was discussed. Return if lesions fail to fully resolve. Related Medications Aminolevulinic Acid HCl 20 % soln 1 Each 3. MULTIPLE BENIGN NEVI Generalized Multiple scattered pink papules with flaccid epidermis and small, symmetric kaur to brown macules with uniform pigmentation over the trunk and extremities. Observational course. Monitor for growth and changes. 4. SEBORRHEIC KERATOSIS Generalized Stuck-on verrucous, variably pigmented papules and plaques. Scattered to the trunk, bilateral upper extremities, bilateral lower extremities. Observational course. Monitor for growth and changes. 5. LENTIGINES Generalized Densely scattered light kaur macules and small patches on all sun exposed areas. Observational course. Monitor for growth and changes. 6. DELEON ANGIOMA Generalized Deleon-red papules scattered to the trunk, bilateral upper extremities, bilateral lower extremities. Observational course. Monitor for growth and changes. 7. 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 SKIN CANCER SCREENING Generalized The patient's skin was examined for evidence of cutaneous malignancy. The nature of sun-induced photo-aging and skin cancers is discussed. Sun avoidance, protective clothing, and the use of 30-SPF sunscreens is advised. Patient is instructed to perform regular self exams. Patient instructed to observe for changing, symptomatic, or new skin lesions and encouraged to contact our office for evaluation. Follow-up as noted below or as needed. Chief Complaint: Patient presents with: Full Body Skin Check Subjective and Objective HPI: Raya Vazquez is a 85 year old male who presents for: Skin check. Desires: Total body skin check History of skin cancer?: Yes: Melanoma left upper back 10/2024, [place] 1.2 mm, Perfecto IV Multiple NMSC Areas of particular concern?: Yes: spot on right forearm Past medical history is reviewed. Medication list is reviewed. Physical Exam included: Scalp, face, ears, neck, chest, back, abdomen, bilateral upper extremities, bilateral lower extremities, buttocks, hands, feet, nails and hair Procedure: shave biopsy Informed Consent Consent Obtained: Verbal [place] Protocol A moment to CARE was completed SIGN IN Personnel directly involved with the procedure wore the appropriate PPE Special Equipment: N/A Patient/Surrogate Stated/Verified: Patient name, Date of , Relevant allergies and Intended procedure TIME OUT No relevant labs, photos, and/or imaging studies were applicable for review. Consent documented and matches the intended procedure Correct side/site marked and visible. Medications required for procedure verified. Fire risk assessed and interventions discussed. No implant(s) inserted. SIGN OUT All instruments, equipment, possible retained foreign bodies accounted for. Shave Intake information obtained by Alton Tarango LPN The documentation for this note was completed by Alton Tarango LPN acting as scribe for José Sheikh APRN.CNP. May 10, 2025 1:33 PM I agree with the Chief Complaint, ROS, and Past Histories independently gathered by the clinical administrative support clerk and the remaining scribed note accurately describes my personal service to the patient. José Sheikh APRN.CNP Allergies As of Date: 05/10/2025 Noted Allergy Reaction GLUTEN 04/11/2021 14 - Other: See Comments LACTOSE 04/11/2021 8 - GI Upset Date Reviewed: 05/10/2025 Reviewed by: Alton Tarango LPN - Fully Assessed Reason for Visit: Full Body Skin Check [1445] Primary Visit Diagnosis:Neoplasm of unspecified behavior of bone, soft tissue, and skin [D49.2] Other Visit Diagnoses:AK (actinic keratosis) [L57.0] Multiple benign nevi [D22.9] Seborrheic keratosis [L82.1] Lentigines [L81.4] Deleon angioma [D18.01] Personal history of malignant melanoma of skin [Z85.820] History of nonmelanoma skin cancer [Z85.828] Skin cancer screening [Z12.83] Order(s):CRYOTHERAPY SKIN LESION [[id number]] Order #: [id number]: 1 SKIN / NAIL BIOPSY [[id number]] Order #: [id number]: 1 SURGICAL PATHOLOGY [FQL3329] Order #: [id number] STANDING SURGICAL PATHOLOGY [NUH4151] Order #: [id number] Prescriptions as of 05/10/2025 - tamsulosin (FLOMAX) 0.4 mg Take 2 capsules by mouth once daily. - TRULICITY 1.5 mg/0.5 mL pen injector Inject 1.5 mg subcutaneously one time a week. - cetirizine (ZYRTEC) 10 mg tablet Take 1 tablet by mouth once daily. - clobetasol (TEMOVATE) 0.05 % ointment Apply to affected area twice daily as needed. Use 5 days per week. Not for face, armpits or groin - montelukast (SINGULAIR) 10 mg tablet Take 1 tablet by mouth daily at bedtime. - triamcinolone acetonide (KENALOG) 0.1 % ointment Apply to affected area twice daily as needed. Use for up to a week on stinging/burning areas of the face. DO NOT USE FOR MORE THAN ONE WEEK - triamcinolone acetonide (KENALOG) 0.1 % ointment Apply to affected area twice daily as needed. Apply to affected area twice daily as needed. - metFORMIN ER (GLUCOPHAGE XR) 500 mg 24 hr tablet - mupirocin (BACTROBAN) 2 % ointment Apply to affected area three times daily. - isosorbide mononitrate ER (IMDUR) 30 mg 24 hr tablet - atorvastatin (LIPITOR) 40 mg tablet - vit C/E/zinc ox/radha/lut/zeax (ICAPS AREDS2 ORAL) Take by mouth. - Vitamin E, dl, acetate, (VITAMIN E) 400 unit capsule Take 400 Units by mouth once daily. - vit A,C,L-Ypss-Zhhkmu (PRESERVISION AREDS) 7,160 unit- 113 mg-100 unit tab - amlodipine besylate (AMLODIPINE ORAL) Take 5 mg by mouth two times a day. - valsartan (DIOVAN) 320 mg tablet Take 160 mg by mouth once daily. - hydroCHLOROthiazide (HYDRODIURIL, ESIDRIX) 25 mg tablet Take 25 mg by mouth every other day. - metoprolol succinate ER (TOPROL XL) 25 mg 24 hr tablet Take 100 mg by mouth once daily. 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 We had an opportunity to discuss my findings and any treatments I recommended. I believe that there are several steps that a person can do to help prevent skin cancers and to detect them at an early, treatable stage: 1. I highly recommend that once a month you perform your own complete skin check looking for changing or unusual spots. Use a wall-mounted mirror and a hand mirror to assist in seeing body areas that are difficult to see otherwise. If you have a family member that can assist, this is often helpful. Additional information can be obtained at: www.skincancer.org/rfgw-kvtoix-lzwpszjsbyb/early-detection 2. In many cases, skin cancer can be prevented. The best way to protect yourself is to avoid too much sun and sunburns. Health care providers believe that ultraviolet rays (UV rays) from the sun damage the skin and over time lead to skin cancer. Here are ways to protect yourself: -Don't spend long periods of time in direct sunlight. -Wear hats with brims to protect your face and ears. -Wear long-sleeved shirts and pants to protect your arms and legs. -Use broad spectrum sunscreens with a SPF (skin protection factor) of 30 or higher that protect against burning and tanning rays. Apply the lotion 30 minutes before you go outside. (Broad-spectrum sunscreens protect against UV-B and UV-A rays.) -Wear sunglasses to protect your eyes. -Use a lip balm with sunscreen. -Avoid the sun between 10am and 4pm. -Show any changing mole to your health care provider. SKIN CARE AFTER CRYOSURGERY The skin's response to cryosurgery (freezing) can be mild to severe, depending on the depth of the freeze and location of the area treated. You may have minimal redness and swelling with little discomfort or significant discoloration and blistering with considerable discomfort. A burning sensation in the skin may last from several minutes to several hours after the procedure. Follow these instructions when caring for an area treated by cryosurgery: 1. Please clean the area every day with gentle soap and water. It is not necessary to cover the site with a bandage. However, it may be used for protection and it must be changed daily. Do not leave a soiled or wet bandage on the wound. 2. If you are experiencing discomfort you may use a cool compress, elevate the area or take over the counter pain relievers. 3. Apply Vaseline or Aquaphor daily to the site. This can help with itching, irritation, and discomfort. -The lesion may take 2-4 weeks to fully resolve. Depending on the severity of treatment and lesion treated, it may take longer. -DO NOT USE NEOSPORIN OR BACITRACIN as there is a fairly high incidence of allergic response to these products. -You may experience some mild discomfort, redness, swelling, and/or a clear discharge from the wound after your procedure. Severe pain, worsening swelling, and foul-smelling discharge from the site are NOT to be expected. If you have concerns about how your wounds are healing, please send your provider a [employer] message or call . CARE FOR YOUR SHAVE BIOPSY SITE Please follow these instructions for daily wound care: 1. Wash the area every day with gentle soap and water. 2. Apply a thin layer of Vaseline or Aquaphor to the wound site to keep the area slightly ?greasy? at all time (this helps to prevent scabbing). Please do not use an old tub of ointment as this can introduce germs into your wound and cause infection. 3. Cover with a bandage and continue this daily process until the wound is healed. Do not leave a soiled or wet bandage on the wound. -Keep the area clean and dry with the bandage in place the day of surgery. -If you experience any bleeding, please apply pressure to the area for approximately 10 minutes. -You may shower, but do not soak in a bathtub, hot tub, pool, melton, etc until after the wound has healed. -DO NOT USE NEOSPORIN OR BACITRACIN as there is a fairly high incidence of allergic response to these products. -You may experience some mild discomfort, redness, swelling, and/or a clear discharge from the wound after your procedure. Severe pain, worsening swelling, and foul-smelling discharge from the site are NOT to be expected. If you have concerns about how your wounds are healing, please send your provider a [employer] message or call . Disposition: Return for pending biopsy results. Follow-up and Disposition History for Encounter Date Provider Department Center 05/10/2025 [id number]-[id number] SHEIKH [facility] Encounter Status:Closed by JOSÉ SHEIKH on 05/10/25 TEJAS Observed: 04/12/2025 10:30 AM Status: COMPLETED Source: [facility] Office Visit (JERO) RAYA VAZQUEZ ([id number]) 1940 M Date Time Provider Department 04/12/25 10:30 AM NURSE EMY [facility] CRUZITO NOGUEIRA During your visit today, we recorded the following information about you: Marifer Ricks RN 04/12/2025 11:40 AM Signed PHOTODYNAMIC THERAPY April 12, 2025 Dx: Actinic Keratosis Pt ID verified with patient: Yes Procedure verified against order and with patient: Yes Skin prepped with 70% isopropyl alcohol Yes Area treated: Full face and Bilateral ears Number of Levulan sticks applied: 2 Lot # [id number] Exp 03/2027 Time before Blue Light exposure: 15 minutes Area treated: Full face and Bilateral ears Pt exposed to light for 30 minutes Patient reaction during treatment: None, patient tolerated procedure well. Patient reaction after treatment: None, patient tolerated procedure well. Aftercare instructions given. Patient verbalizes understanding. Follow up with José Sheikh, SHARON . Ramila Anna RN April 12, 2025 Ramila Anna RN 04/12/2025 10:13 AM Signed After Care Instructions Photodynamic Therapy with Levulan and Blue Light Expected skin changes after PDT: The treated skin will likely turn red and may appear slightly swollen 24-48 hours after treatment, but you should not see any blistering. Redness usually peaks one-to-two days after treatment and gets better within a week. Actinic keratosis lesions may not be gone until about four weeks after treatment. The skin may be itchy or change color slightly after treatment, but these changes are temporary. Photosensitivity: Levulan remains in the skin for 48 hours, so further reactions (redness and a tingling or burning sensation) can be caused by light exposure if one is not careful. Therefore, for about 2 days after the treatment, you should take care to protect the treated areas from light. Stay out of strong, direct light. Stay indoors as much as possible. Wear protective clothing and wide-brimmed hats to avoid sunlight when outdoors. Avoid beaches, snow, light colored concrete, or other reflective surfaces. After Care steps for you to do at home: Again, avoid direct light for 48 hours. Gently wash area twice a day with Cetaphil, Neutrogena or other mild cleanser. Do not scrub! After cleansing, use Aquaphor or Vaseline twice a day to keep the area moist and free of crust. Apply the topical steroid ointment that your doctor has prescribed for you (or alternatively, you can use 1% hydrocortisone ointment available at any pharmacy) to the entire treated area, twice a day as needed for 2-4 days, to help decrease redness and irritation. Apply the steroid BEFORE applying Aquaphor ointment, not afterwards. Apply cool compresses as needed for comfort during the first few days. After day 3, gently exfoliate with a soft washcloth and warm water twice a day. Then apply either Aquaphor or Vaseline. To address swelling and redness, you may also take [id number] oral medications: Claritin (loratidine) 10 mg in the morning, Benadryl (diphenhydramine) 25-50 mg nightly (may cause drowsiness) and/or Ibuprofen as directed. If you absolutely must go outdoors during the first 48 hours, cover yourself with a broad-brimmed hat and use Neutrogena sensitive skin (chemical free) sunscreen SPF 30, or other titanium-dioxide type of sunscreen, in a thick layer to protect you from sunlight Allergies As of Date: 04/12/2025 Noted Allergy Reaction GLUTEN 04/11/2021 14 - Other: See Comments LACTOSE 04/11/2021 8 - GI Upset Date Reviewed: 04/12/2025 Reviewed by: Ramila Anna RN - Fully Assessed Reason for Visit: Actinic Keratosis [3604] Primary Visit Diagnosis:AK (actinic keratosis) [L57.0] Order(s):[] aminolevulinic acid (LEVULAN) 20% topical solutionDisp: Rfl: Prescriptions as of 04/12/2025 - tamsulosin (FLOMAX) 0.4 mg Take 2 capsules by mouth once daily. - TRULICITY 1.5 mg/0.5 mL pen injector Inject 1.5 mg subcutaneously one time a week. - cetirizine (ZYRTEC) 10 mg tablet Take 1 tablet by mouth once daily. - clobetasol (TEMOVATE) 0.05 % ointment Apply to affected area twice daily as needed. Use 5 days per week. Not for face, armpits or groin - montelukast (SINGULAIR) 10 mg tablet Take 1 tablet by mouth daily at bedtime. - triamcinolone acetonide (KENALOG) 0.1 % ointment Apply to affected area twice daily as needed. Use for up to a week on stinging/burning areas of the face. DO NOT USE FOR MORE THAN ONE WEEK - triamcinolone acetonide (KENALOG) 0.1 % ointment Apply to affected area twice daily as needed. Apply to affected area twice daily as needed. - metFORMIN ER (GLUCOPHAGE XR) 500 mg 24 hr tablet - mupirocin (BACTROBAN) 2 % ointment Apply to affected area three times daily. - isosorbide mononitrate ER (IMDUR) 30 mg 24 hr tablet - atorvastatin (LIPITOR) 40 mg tablet - vit C/E/zinc ox/radha/lut/zeax (ICAPS AREDS2 ORAL) Take by mouth. - Vitamin E, dl, acetate, (VITAMIN E) 400 unit capsule Take 400 Units by mouth once daily. - vit A,C,P-Taqw-Rtapzi (PRESERVISION AREDS) 7,160 unit- 113 mg-100 unit tab - amlodipine besylate (AMLODIPINE ORAL) Take 5 mg by mouth two times a day. - valsartan (DIOVAN) 320 mg tablet Take 160 mg by mouth once daily. - hydroCHLOROthiazide (HYDRODIURIL, ESIDRIX) 25 mg tablet Take 25 mg by mouth every other day. - metoprolol succinate ER (TOPROL XL) 25 mg 24 hr tablet Take 100 mg by mouth once daily. 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 Urinary frequency [R35.0] 05/26/2019 Weak urinary stream [R39.12] 05/26/2019 Nocturia [R35.1] 05/26/2019 Obesity, Class I, BMI 30-34.9 [E66.811] 09/28/2019 Incomplete bladder emptying [R33.9] 09/28/2019 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 Redness usually peaks one-to-two days after treatment and gets better within a week. Actinic keratosis lesions may not be gone until about four weeks after treatment. The skin may be itchy or change color slightly after treatment, but these changes are temporary. Photosensitivity: Levulan remains in the skin for 48 hours, so further reactions (redness and a tingling or burning sensation) can be caused by light exposure if one is not careful. Therefore, for about 2 days after the treatment, you should take care to protect the treated areas from light. Stay out of strong, direct light. Stay indoors as much as possible. Wear protective clothing and wide-brimmed hats to avoid sunlight when outdoors. Avoid beaches, snow, light colored concrete, or other reflective surfaces. After Care steps for you to do at home: Again, avoid direct light for 48 hours. Gently wash area twice a day with Cetaphil, Neutrogena or other mild cleanser. Do not scrub! After cleansing, use Aquaphor or Vaseline twice a day to keep the area moist and free of crust. Apply the topical steroid ointment that your doctor has prescribed for you (or alternatively, you can use 1% hydrocortisone ointment available at any pharmacy) to the entire treated area, twice a day as needed for 2-4 days, to help decrease redness and irritation. Apply the steroid BEFORE applying Aquaphor ointment, not afterwards. Apply cool compresses as needed for comfort during the first few days. After day 3, gently exfoliate with a soft washcloth and warm water twice a day. Then apply either Aquaphor or Vaseline. To address swelling and redness, you may also take jdwl-ugl-aomdffp oral medications: Claritin (loratidine) 10 mg in the morning, Benadryl (diphenhydramine) 25-50 mg nightly (may cause drowsiness) and/or Ibuprofen as directed. If you absolutely must go outdoors during the first 48 hours, cover yourself with a broad-brimmed hat and use Neutrogena sensitive skin (chemical free) sunscreen SPF 30, or other titanium-dioxide type of sunscreen, in a thick layer to protect you from sunlight Prescriptions ordered this encounter Disp Refills Start End AMINOLEVULINIC ACID HCL 20 % TOPICAL* 04/12/2025 04/12/2025 Route: TOPICAL Encounter Status:Closed by MARIFER RICKS on 04/12/25 PROGRESS Observed: 04/12/2025 10:12 AM Status: COMPLETED Source: [facility] HNO ID: [id number] Author: MARIFER RICKS RN Service: ? Author Type: Registered Nurse Type: Progress Notes Filed: 04/12/2025 11:40 Note Text: PHOTODYNAMIC THERAPY April 12, 2025Dx: Actinic Keratosis Pt ID verified with patient: Yes Procedure verified against order and with patient: Yes Skin prepped with 70% isopropyl alcohol Yes Area treated: Full face and Bilateral ears Number of Levulan sticks applied: 2 Lot # [id number] Exp 03/2027 Time before Blue Light exposure: 15 minutes Area treated: Full face and Bilateral ears Pt exposed to light for 30 minutes Patient reaction during treatment: None, patient tolerated procedure well. Patient reaction after treatment: None, patient tolerated procedure well. Aftercare instructions given. Patient verbalizes understanding. Follow up with José Sheikh CNP . Ramila Anna RN April 12, 2025 TEJAS Observed: 03/06/2025 2:00 PM Status: COMPLETED Source: [facility] Office Visit (UROLIN) RAYA VAZQUEZ ([id number]) 1940 M Date Time Provider Department 03/06/25 2:00 PM HORTENCIA VIRAMONTES During your visit today, we recorded the following information about you: Hortencia Viramontes PA-C 03/06/2025 12:29 PM Signed CHIEF COMPLAINT: follow up for BPH with LUTS HPI: 84 y/o male here for follow up for BPH with LUTS. He is s/p XPS done on 06/27/2019. He c/o NTF- 3, frequency. He is on flomax 0.8mg with effect. Previous AUA: 24, QOL: 5, PVR: 82, 78, 84, 115 (after surgery), 359 (prior to surgery) He drinks 1 12 oz of coffee. He is on a diuretics. He has crohn's disease He is diabetic AUA Symptom Score Incomplete emptyin Frequency: 3 Intermittency: 1 Urgency: 0 Weak Stream: 0 Strainin Nocturia: 3 Total score: 9 Quality of life due to urinary symptoms: pleased QOL: 1 PVR: 179 ml He has ED. He is not active. Scrotal US done on 07/20/2024 IMPRESSION: Left varicocele. Bilateral incidental epididymal head cysts. Bilateral prominent rete testes. Mild heterogeneity of the right testicle, without discrete mass. In the area of palpable abnormality in the left scrotum, no sonographic evidence of abnormality. This area overlies normal epididymis body and tail Normal arterial and venous flow within both testes. PSA (ng/mL) Date Value 02/23/2025 0.34 PSA, Percent Free (%) Date Value 02/23/2025 44 MEDICAL HISTORY: PAST MEDICAL HISTORY Diagnosis Date Essential hypertension, benign Unspecified asthma(493.90) Unspecified sleep apnea SURGICAL HISTORY: PAST SURGICAL HISTORY Procedure Laterality Date CHOLECYSTOSTOMY PRQ W/IMAGING AND CATHETER PLMT CYSTOURETHROSCOPY 05/26/2019 Cystoscopy/TRUS -Dr. Felipe EXC/DSTRJ LINGUAL TONSIL ANY METHOD SPX EXCISION LIP LESION 05/24/2020 PAST SURGICAL HISTORY OF external fix of Lt frature XCAPSL CTRC RMVL INSJ IO LENS PROSTH W/O ECP rt eye SOCIAL HISTORY: Social History Tobacco Use Smoking status: Never Smokeless tobacco: Never FAMILY HISTORY Denies a FH of CaP MEDS: Current Outpatient Medications Medication Sig Dispense Refill TRULICITY 1.5 mg/0.5 mL pen injector Inject 1.5 mg subcutaneously one time a week. montelukast (SINGULAIR) 10 mg tablet Take 1 tablet by mouth daily at bedtime. 90 tablet 1 metFORMIN ER (GLUCOPHAGE XR) 500 mg 24 hr tablet isosorbide mononitrate ER (IMDUR) 30 mg 24 hr tablet atorvastatin (LIPITOR) 40 mg tablet Vitamin E, dl, acetate, (VITAMIN E) 400 unit capsule Take 400 Units by mouth once daily. vit A,C,P-Lalj-Agyysr (PRESERVISION AREDS) 7,160 unit- 113 mg-100 unit tab amlodipine besylate (AMLODIPINE ORAL) Take 5 mg by mouth two times a day. valsartan (DIOVAN) 320 mg tablet Take 160 mg by mouth once daily. hydroCHLOROthiazide (HYDRODIURIL, ESIDRIX) 25 mg tablet Take 25 mg by mouth every other day. metoprolol succinate ER (TOPROL XL) 25 mg 24 hr tablet Take 100 mg by mouth once daily. cholecalciferol, vitamin D3, 4,000 unit cap Take 1 capsule by mouth daily aspirin(ECOTRIN LOW STRENGTH 81 MG TAB) Take one (1) tablet every other day 0 tamsulosin (FLOMAX) 0.4 mg Take 2 capsules by mouth once daily. 180 capsule 3 cetirizine (ZYRTEC) 10 mg tablet Take 1 tablet by mouth once daily. 90 tablet 0 clobetasol (TEMOVATE) 0.05 % ointment Apply to affected area twice daily as needed. Use 5 days per week. Not for face, armpits or groin (Patient not taking: Reported on 02/01/2025) 30 g 1 triamcinolone acetonide (KENALOG) 0.1 % ointment Apply to affected area twice daily as needed. Use for up to a week on stinging/burning areas of the face. DO NOT USE FOR MORE THAN ONE WEEK 80 g 0 triamcinolone acetonide (KENALOG) 0.1 % ointment Apply to affected area twice daily as needed. Apply to affected area twice daily as needed. 453.6 g 1 mupirocin (BACTROBAN) 2 % ointment Apply to affected area three times daily. (Patient not taking: Reported on 02/01/2025) 30 g 0 vit C/E/zinc ox/radha/lut/zeax (ICAPS AREDS2 ORAL) Take by mouth. Current Facility-Administered Medications Medication Dose Route Frequency Provider Last Rate Last Admin Aminolevulinic Acid HCl 20 % soln 1 Each 1 each TOPICAL As Directed Corrie Nguyen PA-C 2 each at 05/10/24 1321 REVIEW OF SYSTEMS GENERAL: No weight loss, fatigue, or fevers. HEENT: Negative for frequent or significant headaches, No changes in hearing or vision, no nose bleeds or other nasal problems. NECK: Negative for lumps, pain and significant neck swelling RESPIRATORY: Negative for cough, wheezing and shortness of breath CARDIOVASCULAR: Negative for chest pain, leg swelling and palpitations GI: Change in bowel habits : see above MUSCULOSKELETAL: joint pain SKIN: Negative for lesions, rash, and itching. PSYCH: Negative for sleep disturbance, mood disorder and recent psychosocial stressors. HEMATOLOGY/LYMPHOLOGY: bruising easily. ENDOCRINE: Negative for cold or heat intolerance, polydipsia. NEURO: Negative for syncope, seizures and paralysis PHYSICAL EXAM: GENERAL:Wnl nutrition, no deformities, healthy appearing HEAD AND NECK: No masses, icterus. RESP: NL effort, no retractions or purse-lip breathing. ABDOMEN: No masses, tenderness, organomegaly. SKIN: No rash or lesions NEURO: A/Ox3 PSYCH: Nl mood, with no signs of depression, anxiety, or agitation. EXTREMITIES: Extremities normal. No deformities, edema The sensitive examination was discussed with the Patient or Patient's Authorized Spool Cleaner. As applicable, any other physician, advance practice provider, medical student, or other health professional student that will be observing or involved in the sensitive examination for educational or training purposes was discussed with the Patient or Authorized Spool Cleaner. The Patient or Authorized Spool Cleaner has agreed to proceed with the sensitive examination. (Sensitive examination includes inspection and/or palpation of the breasts, pelvis, prostate and anorectal regions) GENITOURINARY: MALE EXAM: Rectal Exam: Prostate: enlarged, symmetrical, nontender, w/o nodules. Sphincter tone normal, no mass. Anus and perineum wnl. MEDICAL DECISION MAKING: IMPRESSION: (Diagnostic Possibilities) New or Established 1) BPH 2) LUTS PLAN: (Management Options) Refill medication Hortencia Viramontes PA-C Allergies As of Date: 03/06/2025 Noted Allergy Reaction GLUTEN 04/11/2021 14 - Other: See Comments LACTOSE 04/11/2021 8 - GI Upset Date Reviewed: 03/06/2025 Reviewed by: Dinah Gauthier MA - Fully Assessed Reason for Visit: Established Patient [175] Primary Visit Diagnosis:BPH associated with nocturia [N40.1, R35.1] Other Visit Diagnosis:Urinary frequency [R35.0] Order(s):UA DIP, URINE (POC) [[id number]] Order #: [id number]. #:[id number] [id number] SEDIMENT B/O [[id number]] Order #: [id number] tamsulosin (FLOMAX) 0.4 mgTake 2 capsules by mouth once daily.Disp: 180 capsuleRfl: 3 Prescriptions as of 03/06/2025 - tamsulosin (FLOMAX) 0.4 mg Take 2 capsules by mouth once daily. - TRULICITY 1.5 mg/0.5 mL pen injector Inject 1.5 mg subcutaneously one time a week. - cetirizine (ZYRTEC) 10 mg tablet Take 1 tablet by mouth once daily. - clobetasol (TEMOVATE) 0.05 % ointment Apply to affected area twice daily as needed. Use 5 days per week. Not for face, armpits or groin - montelukast (SINGULAIR) 10 mg tablet Take 1 tablet by mouth daily at bedtime. - triamcinolone acetonide (KENALOG) 0.1 % ointment Apply to affected area twice daily as needed. Use for up to a week on stinging/burning areas of the face. DO NOT USE FOR MORE THAN ONE WEEK - triamcinolone acetonide (KENALOG) 0.1 % ointment Apply to affected area twice daily as needed. Apply to affected area twice daily as needed. - metFORMIN ER (GLUCOPHAGE XR) 500 mg 24 hr tablet - mupirocin (BACTROBAN) 2 % ointment Apply to affected area three times daily. - isosorbide mononitrate ER (IMDUR) 30 mg 24 hr tablet - atorvastatin (LIPITOR) 40 mg tablet - vit C/E/zinc ox/radha/lut/zeax (ICAPS AREDS2 ORAL) Take by mouth. - Vitamin E, dl, acetate, (VITAMIN E) 400 unit capsule Take 400 Units by mouth once daily. - vit A,C,T-Omfm-Znxtit (PRESERVISION AREDS) 7,160 unit- 113 mg-100 unit tab - amlodipine besylate (AMLODIPINE ORAL) Take 5 mg by mouth two times a day. - valsartan (DIOVAN) 320 mg tablet Take 160 mg by mouth once daily. - hydroCHLOROthiazide (HYDRODIURIL, ESIDRIX) 25 mg tablet Take 25 mg by mouth every other day. - metoprolol succinate ER (TOPROL XL) 25 mg 24 hr tablet Take 100 mg by mouth once daily. - cholecalciferol, vitamin D3, 4,000 unit cap Take 1 capsule by mouth daily - aspirin(ECOTRIN LOW STRENGTH 81 MG TAB) Take one (1) tablet every other day Facility-Administered Medications as of 03/06/2025 - Aminolevulinic Acid HCl 20 % soln 1 Each Problem List As Of Date 03/06/2025 Noted Resolved DIARRHEA NOS [R19.7] 11/13/2008 ABDOMINAL PAIN UNSPEC SITE [R10.9] 11/13/2008 LOSS OF WEIGHT [R63.4] 11/13/2008 BPH with obstruction/lower urinary tract sympto*01/27/2019 Urinary frequency [R35.0] 05/26/2019 Weak urinary stream [R39.12] 05/26/2019 Nocturia [R35.1] 05/26/2019 Obesity, Class I, BMI 30-34.9 [E66.811] 09/28/2019 Incomplete bladder emptying [R33.9] 09/28/2019 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 Medications Discontinued During This Encounter Prescriptions - tamsulosin (FLOMAX) 0.4 mg (Discontinued) Take 2 capsules by mouth once daily. Encounter Status:Closed by HORTENCIA VIRAMONTES on 03/06/25 PROGRESS Observed: 03/06/2025 2:00 PM Status: COMPLETED Source: [facility] ID: [id number] Author: HORTENCIA VIRAMONTES PA-C Service: ? Author Type: Physician Picker/Puller Type: Progress Notes Filed: 03/06/2025 12:29 Note Text: CHIEF COMPLAINT: follow up for BPH with LUTS HPI: 84 y/o male here for follow up for BPH with LUTS. He is s/p XPS done on 06/27/2019. He c/o NTF- 3, frequency. He is on flomax 0.8mg with effect. Previous AUA: 24, QOL: 5, PVR: 82, 78, 84, 115 (after surgery), 359 (prior to surgery) He drinks 1 12 oz of coffee. He is on a diuretics. He has crohn's disease He is diabetic AUA Symptom Score Incomplete emptyin Frequency: 3 Intermittency: 1 Urgency: 0 Weak Stream: 0 Strainin Nocturia: 3 Total score: 9 Quality of life due to urinary symptoms: pleased QOL: 1 PVR: 179 ml He has ED. He is not active. Scrotal US done on 07/20/2024 IMPRESSION: Left varicocele. Bilateral incidental epididymal head cysts. Bilateral prominent rete testes. Mild heterogeneity of the right testicle, without discrete mass. In the area of palpable abnormality in the left scrotum, no sonographic evidence of abnormality. This area overlies normal epididymis body and tail Normal arterial and venous flow within both testes. PSA (ng/mL) Date Value 02/23/2025 0.34 PSA, Percent Free (%) Date Value 02/23/2025 44 MEDICAL HISTORY: PAST MEDICAL HISTORY Diagnosis Date Essential hypertension, benign Unspecified asthma(493.90) Unspecified sleep apnea SURGICAL HISTORY: PAST SURGICAL HISTORY Procedure Laterality Date CHOLECYSTOSTOMY PRQ W/IMAGING AND CATHETER PLMT CYSTOURETHROSCOPY 05/26/2019 Cystoscopy/TRUS -Dr. Felipe EXC/DSTRJ LINGUAL TONSIL ANY METHOD SPX EXCISION LIP LESION 05/24/2020 PAST SURGICAL HISTORY OF external fix of Lt frature XCAPSL CTRC RMVL INSJ IO LENS PROSTH W/O ECP rt eye SOCIAL HISTORY: Social History Tobacco Use Smoking status: Never Smokeless tobacco: Never FAMILY HISTORY Denies a FH of CaP MEDS: Current Outpatient Medications Medication Sig Dispense Refill TRULICITY 1.5 mg/0.5 mL pen injector Inject 1.5 mg subcutaneously one time a week. montelukast (SINGULAIR) 10 mg tablet Take 1 tablet by mouth daily at bedtime. 90 tablet 1 metFORMIN ER (GLUCOPHAGE XR) 500 mg 24 hr tablet isosorbide mononitrate ER (IMDUR) 30 mg 24 hr tablet atorvastatin (LIPITOR) 40 mg tablet Vitamin E, dl, acetate, (VITAMIN E) 400 unit capsule Take 400 Units by mouth once daily. vit A,C,Y-Yxbj-Sfwutj (PRESERVISION AREDS) 7,160 unit- 113 mg-100 unit tab amlodipine besylate (AMLODIPINE ORAL) Take 5 mg by mouth two times a day. valsartan (DIOVAN) 320 mg tablet Take 160 mg by mouth once daily. hydroCHLOROthiazide (HYDRODIURIL, ESIDRIX) 25 mg tablet Take 25 mg by mouth every other day. metoprolol succinate ER (TOPROL XL) 25 mg 24 hr tablet Take 100 mg by mouth once daily. cholecalciferol, vitamin D3, 4,000 unit cap Take 1 capsule by mouth daily aspirin(ECOTRIN LOW STRENGTH 81 MG TAB) Take one (1) tablet every other day 0 tamsulosin (FLOMAX) 0.4 mg Take 2 capsules by mouth once daily. 180 capsule 3 cetirizine (ZYRTEC) 10 mg tablet Take 1 tablet by mouth once daily. 90 tablet 0 clobetasol (TEMOVATE) 0.05 % ointment Apply to affected area twice daily as needed. Use 5 days per week. Not for face, armpits or groin (Patient not taking: Reported on 02/01/2025) 30 g 1 triamcinolone acetonide (KENALOG) 0.1 % ointment Apply to affected area twice daily as needed. Use for up to a week on stinging/burning areas of the face. DO NOT USE FOR MORE THAN ONE WEEK 80 g 0 triamcinolone acetonide (KENALOG) 0.1 % ointment Apply to affected area twice daily as needed. Apply to affected area twice daily as needed. 453.6 g 1 mupirocin (BACTROBAN) 2 % ointment Apply to affected area three times daily. (Patient not taking: Reported on 02/01/2025) 30 g 0 vit C/E/zinc ox/radha/lut/zeax (ICAPS AREDS2 ORAL) Take by mouth. Current Facility-Administered Medications Medication Dose Route Frequency Provider Last Rate Last Admin Aminolevulinic Acid HCl 20 % soln 1 Each 1 each TOPICAL As Directed Corrie Nguyen PA-C 2 each at 05/10/24 1321 REVIEW OF SYSTEMS GENERAL: No weight loss, fatigue, or fevers. HEENT: Negative for frequent or significant headaches, No changes in hearing or vision, no nose bleeds or other nasal problems. NECK: Negative for lumps, pain and significant neck swelling RESPIRATORY: Negative for cough, wheezing and shortness of breath CARDIOVASCULAR: Negative for chest pain, leg swelling and palpitations GI: Change in bowel habits : see above MUSCULOSKELETAL: joint pain SKIN: Negative for lesions, rash, and itching. PSYCH: Negative for sleep disturbance, mood disorder and recent psychosocial stressors. HEMATOLOGY/LYMPHOLOGY: bruising easily. ENDOCRINE: Negative for cold or heat intolerance, polydipsia. NEURO: Negative for syncope, seizures and paralysis PHYSICAL EXAM: GENERAL:Wnl nutrition, no deformities, healthy appearing HEAD AND NECK: No masses, icterus. RESP: NL effort, no retractions or purse-lip breathing. ABDOMEN: No masses, tenderness, organomegaly. SKIN: No rash or lesions NEURO: A/Ox3 PSYCH: Nl mood, with no signs of depression, anxiety, or agitation. EXTREMITIES: Extremities normal. No deformities, edema The sensitive examination was discussed with the Patient or Patient's Authorized Spool Cleaner. As applicable, any other physician, advance practice provider, medical student, or other health professional student that will be observing or involved in the sensitive examination for educational or training purposes was discussed with the Patient or Authorized Spool Cleaner. The Patient or Authorized Spool Cleaner has agreed to proceed with the sensitive examination. (Sensitive examination includes inspection and/or palpation of the breasts, pelvis, prostate and anorectal regions) GENITOURINARY: MALE EXAM: Rectal Exam: Prostate: enlarged, symmetrical, nontender, w/o nodules. Sphincter tone normal, no mass. Anus and perineum wnl. MEDICAL DECISION MAKING: IMPRESSION: (Diagnostic Possibilities) New or Established 1) BPH 2) LUTS PLAN: (Management Options) Refill medication Hortencia Viramontes PA-C TISS PATH BX REPORT Collected: 03/01/2025 7:[address] atus: F Source: [facility] Order Comment: Specimen Type : TISSUE SPECIMEN Ordering Facility: [facility] Address: [address] [place] [address] TYPE CODE TESTS RESULT OUT OF RANGE REFERENCE UNITS PATHOLOGY [id number] CASE REPORT Result Comment: Surgical Pat hology Report Case: [id number] Authorizing Provider: José Sheikh, Collected: 03/01/2025 07:16 AM EEG TECHSUSAN Ordering Location: Dermatology Received: 03/01/2025 08:51 AM Pathologist: Leticia Andrews MD Specimen: Skin, Left Forearm - Posterior PATHOLOGY [id number] FINAL DIAGNOSIS Result Comment: A. Skin, lef t forearm-posterior, shave biopsy: - Scar. CR 03/02/2025 at 1531 EDT PATHOLOGY [id number] GROSS DESCRIPTION A. Skin Result Comment: Received in formalin is a 1.0 x 0.6 x 0.1 cm shave of skin. On the skin surface there is a 0.8 cm kaur-red and minimally elevated area. The specimen is bisected. Totally submitted in one cassette. AJB March 01, 2025 2:05 PM Gross examination performed at [facility], [address] [place] [address] PATHOLOGY [facility] FINAL PERFORMING LAB Result Comment: Diagnostic i nterpretation performed at: [facility], [address] [place] [address] CLIA# [id number] Manager Portable: Calixto Kraft MD PATHOLOGY [id number] AP DISCLAIMER Result Comment: Laboratory D eveloped Test (LDT) Disclaimer: Performance characteristics of immunohistochemical, immunofluorescent, and chromogenic in-situ hybridization tests have been determined by the performing laboratory within [facility]'s [facility] Pathology and Laboratory Medicine Department ([facility], [facility], [facility], [facility], [facility], [facility], or [facility]) in a manner consistent with CLIA requirements. One or more of these tests may not have been cleared or approved by the FDA. [facility] is regulated under CLIA as qualified to perform high-complexity testing. These tests are used for clinical purposes. These should not be regarded as investigational or for research. Positive and negative controls stain appropriately. Performed By: #### [id number] # ### [facility] CLIA [id number] [address] [place] [address] [place] CNOV Observed: 03/01/2025 7:00 AM Status: COMPLETED Source: [facility] Office Visit (DERMST) RAYA VAZQUEZ ([id number]) 1940 M Date Time Provider Department 03/01/25 7:00 AM JOSÉ SHEIKH During your visit today, we recorded the following information about you: José Sheikh APRN.CNP 03/01/2025 7:28 AM Signed Department of Dermatology José Sheikh APRN.CNP Last visit in Dermatology: 02/01/2025 Objective/Assessment/Plan Skin Exam 1. NEOPLASM OF UNSPECIFIED BEHAVIOR OF BONE, SOFT TISSUE, AND SKIN Left Forearm - Posterior 5x4mm pink papule SKIN / NAIL BIOPSY Type of biopsy: tangential Informed consent: discussed and consent obtained Timeout: patient name, date of , surgical site, and procedure verified Procedure prep: Patient was prepped and draped in usual sterile fashion Prep type: Isopropyl alcohol Anesthesia: the lesion was anesthetized in a standard fashion Anesthetic: 1% lidocaine w/ epinephrine 1-100,000 local infiltration Instrument used: DermaBlade Hemostasis achieved with: aluminum chloride Outcome: patient tolerated procedure well Post-procedure details: sterile dressing applied Dressing type: bandage and petrolatum Specimen A - Surgical Pathology IMP: ISK vs AK Follow-up as noted below or as needed. Chief Complaint: Patient presents with: LESION, SKIN Subjective and Objective HPI: Raya Vazquez is a 85 year old male who presents for: # lesion Location: left forearm Duration: 2-3 weeks Symptoms: changing in appearance Current Treatment: none Past Treatment: none Past medical history is reviewed. - Melanoma 2023), SCCIS(2022), SCC and BCC(2019) Medication list is reviewed. Physical Exam included: Left forearm Intake information obtained by EVELYN Adler APRN.José Littlejohn APRN.SHARON 03/01/2025 7:14 AM Signed CARE FOR YOUR SHAVE BIOPSY SITE Please follow these instructions for daily wound care: 1. Wash the area every day with gentle soap and water. 2. Apply a thin layer of Vaseline or Aquaphor to the wound site to keep the area slightly ?greasy? at all time (this helps to prevent scabbing). Please do not use an old tub of ointment as this can introduce germs into your wound and cause infection. 3. Cover with a bandage and continue this daily process until the wound is healed. Do not leave a soiled or wet bandage on the wound. -Keep the area clean and dry with the bandage in place the day of surgery. -If you experience any bleeding, please apply pressure to the area for approximately 10 minutes. -You may shower, but do not soak in a bathtub, hot tub, pool, melton, etc until after the wound has healed. -DO NOT USE NEOSPORIN OR BACITRACIN as there is a fairly high incidence of allergic response to these products. -You may experience some mild discomfort, redness, swelling, and/or a clear discharge from the wound after your procedure. Severe pain, worsening swelling, and foul-smelling discharge from the site are NOT to be expected. If you have concerns about how your wounds are healing, please send your provider a [place] message or call . Allergies As of Date: 03/01/2025 Noted Allergy Reaction GLUTEN 04/11/2021 14 - Other: See Comments LACTOSE 04/11/2021 8 - GI Upset Date Reviewed: 03/01/2025 Reviewed by: Tawny Bradford LPN - Fully Assessed Reason for Visit: LESION, SKIN [936] Primary Visit Diagnosis:Neoplasm of unspecified behavior of bone, soft tissue, and skin [D49.2] Order(s):SKIN / NAIL BIOPSY [[id number]] Order #: [id number]: 1 SURGICAL PATHOLOGY [AMU7113] Order #: [id number] STANDING SURGICAL PATHOLOGY [OCD0510] Order #: [id number] Prescriptions as of 03/01/2025 - TRULICITY 1.5 mg/0.5 mL pen injector Inject 1.5 mg subcutaneously one time a week. - cetirizine (ZYRTEC) 10 mg tablet Take 1 tablet by mouth once daily. - tamsulosin (FLOMAX) 0.4 mg Take 2 capsules by mouth once daily. - clobetasol (TEMOVATE) 0.05 % ointment Apply to affected area twice daily as needed. Use 5 days per week. Not for face, armpits or groin - montelukast (SINGULAIR) 10 mg tablet Take 1 tablet by mouth daily at bedtime. - triamcinolone acetonide (KENALOG) 0.1 % ointment Apply to affected area twice daily as needed. Use for up to a week on stinging/burning areas of the face. DO NOT USE FOR MORE THAN ONE WEEK - triamcinolone acetonide (KENALOG) 0.1 % ointment Apply to affected area twice daily as needed. Apply to affected area twice daily as needed. - metFORMIN ER (GLUCOPHAGE XR) 500 mg 24 hr tablet - mupirocin (BACTROBAN) 2 % ointment Apply to affected area three times daily. - isosorbide mononitrate ER (IMDUR) 30 mg 24 hr tablet - atorvastatin (LIPITOR) 40 mg tablet - vit C/E/zinc ox/radha/lut/zeax (ICAPS AREDS2 ORAL) Take by mouth. - Vitamin E, dl, acetate, (VITAMIN E) 400 unit capsule Take 400 Units by mouth once daily. - vit A,C,E-Nyiu-Wtcehi (PRESERVISION AREDS) 7,160 unit- 113 mg-100 unit tab - amlodipine besylate (AMLODIPINE ORAL) Take 5 mg by mouth two times a day. - valsartan (DIOVAN) 320 mg tablet Take 160 mg by mouth once daily. - hydroCHLOROthiazide (HYDRODIURIL, ESIDRIX) 25 mg tablet Take 25 mg by mouth every other day. - metoprolol succinate ER (TOPROL XL) 25 mg 24 hr tablet Take 100 mg by mouth once daily. - cholecalciferol, vitamin D3, 4,000 unit cap Take 1 capsule by mouth daily - aspirin(ECOTRIN LOW STRENGTH 81 MG TAB) Take one (1) tablet every other day Facility-Administered Medications as of 03/01/2025 - Aminolevulinic Acid HCl 20 % soln 1 Each Problem List As Of Date 03/01/2025 Noted Resolved DIARRHEA NOS [R19.7] 11/13/2008 ABDOMINAL PAIN UNSPEC SITE [R10.9] 11/13/2008 LOSS OF WEIGHT [R63.4] 11/13/2008 BPH with obstruction/lower urinary tract sympto*01/27/2019 Urinary frequency [R35.0] 05/26/2019 Weak urinary stream [R39.12] 05/26/2019 Nocturia [R35.1] 05/26/2019 Obesity, Class I, BMI 30-34.9 [E66.811] 09/28/2019 Incomplete bladder emptying [R33.9] 09/28/2019 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 Wash the area every day with gentle soap and water. 2. Apply a thin layer of Vaseline or Aquaphor to the wound site to keep the area slightly ?greasy? at all time (this helps to prevent scabbing). Please do not use an old tub of ointment as this can introduce germs into your wound and cause infection. 3. Cover with a bandage and continue this daily process until the wound is healed. Do not leave a soiled or wet bandage on the wound. -Keep the area clean and dry with the bandage in place the day of surgery. -If you experience any bleeding, please apply pressure to the area for approximately 10 minutes. -You may shower, but do not soak in a bathtub, hot tub, pool, melton, etc until after the wound has healed. -DO NOT USE NEOSPORIN OR BACITRACIN as there is a fairly high incidence of allergic response to these products. -You may experience some mild discomfort, redness, swelling, and/or a clear discharge from the wound after your procedure. Severe pain, worsening swelling, and foul-smelling discharge from the site are NOT to be expected. If you have concerns about how your wounds are healing, please send your provider a [place] message or call . Encounter Status:Closed by JOSÉ SHEIKH on 03/01/25 PROGRESS Observed: 03/01/2025 6:53 AM Status: COMPLETED Source: [facility] HNO ID: [id number] Author: JOSÉ SHEIKH APRN.ADVERTISING ASSISTANT Service: ? Author Type: Nurse Practitioner Type: Progress Notes Filed: 03/01/2025 07:28 Note Text: Department of Dermatology José Sheikh APRN.CNPLast visit in Dermatology: 02/01/2025 Objective/Assessment/Plan Skin Exam 1. NEOPLASM OF UNSPECIFIED BEHAVIOR OF BONE, SOFT TISSUE, AND SKIN Left Forearm - Posterior 5x4mm pink papule SKIN / NAIL BIOPSY Type of biopsy: tangential Informed consent: discussed and consent obtained Timeout: patient name, date of , surgical site, and procedure verified Procedure prep: Patient was prepped and draped in usual sterile fashion Prep type: Isopropyl alcohol Anesthesia: the lesion was anesthetized in a standard fashion Anesthetic: 1% lidocaine w/ epinephrine 1-100,000 local infiltration Instrument used: DermaBlade Hemostasis achieved with: aluminum chloride Outcome: patient tolerated procedure well Post-procedure details: sterile dressing applied Dressing type: bandage and petrolatum Specimen A - Surgical Pathology IMP: ISK vs AK Follow-up as noted below or as needed. Chief Complaint: Patient presents with: LESION, SKIN Subjective and Objective HPI: Raya Vazquez is a 85 year old male who presents for: # lesion Location: left forearm Duration: 2-3 weeks Symptoms: changing in appearance Current Treatment: none Past Treatment: none Past medical history is reviewed. - Melanoma 2023), SCCIS(2022), SCC and BCC(2019) Medication list is reviewed. Physical Exam included: Left forearm Intake information obtained by EVELYN Adler APRN.ADVERTISING ASSISTANT PSA FREE SERPL-MCNC Collected: 02/24/20 9:55 AM Status: F Source: [facility] Order Comment: Specimen Type : BLOOD SPECIMEN Ordering Facility: [facility] Address: [address] [place] [address] TYPE CODE TESTS RESULT OUT OF RANGE REFERENCE UNITS LAB 2857-1(LOINC) PSA SerPl-mCnc 0.34 <2.60 ng/mL Result Comment: Total PSA te st methodology used is the Electrochemiluminescence Immunoassay by [employer]. Total PSA values by differing methodologies cannot be interchanged. LAB 06735-6(LOINC ) PSA Free MFr SerPl 44 % Result Comment: Total and fr ee PSA test methodology used is the Electrochemiluminescence Immunoassay by [employer]. Total or free PSA values by differing methodologies cannot be interchanged. The below table lists the probability of finding prostate cancer upon needle biopsy, for men 50 years or older and total PSA concentrations from 4.0-10.0 ng/mL. Results should be interpreted within the broader clinical context. Free PSA(%) 50-59 years 60-69 years >69 years <11 49.2% 57.5% 64.5% 11-18 26.9% 33.9% 40.8% 19-25 18.3% 23.9% 29.7% >25 9.1% 12.2% 15.8% Performed By: #### [id number] # ### [facility] CLIA [id number] [address] [place] [address] OF [facility] CNOV Observed: 02/01/2025 12:00 PM Status: COMPLETED Source: [facility] Office Visit (DERMST) RAYA VAZQUEZ ([id number]) 1940 M Date Time Provider Department 02/01/25 12:00 PM JOSÉ SHEIKH DERMST During your visit today, we recorded the following information about you: Tawny Bradford LPN 02/01/2025 12:17 PM Addendum GENERAL SUN SAFETY Thank you for allowing me to examine you for signs of skin cancer today. We had an opportunity to discuss my findings and any treatments I recommended. I believe that there are several steps that a person can do to help prevent skin cancers and to detect them at an early, treatable stage: 1. I highly recommend that once a month you perform your own complete skin check looking for changing or unusual spots. Use a wall-mounted mirror and a hand mirror to assist in seeing body areas that are difficult to see otherwise. If you have a family member that can assist, this is often helpful. Additional information can be obtained at: www.skincancer.org/qlhd-ugfkam-lduvgflkiai/early-detection 2. In many cases, skin cancer can be prevented. The best way to protect yourself is to avoid too much sun and sunburns. Health care providers believe that ultraviolet rays (UV rays) from the sun damage the skin and over time lead to skin cancer. Here are ways to protect yourself: -Don't spend long periods of time in direct sunlight. -Wear hats with brims to protect your face and ears. -Wear long-sleeved shirts and pants to protect your arms and legs. -Use broad spectrum sunscreens with a SPF (skin protection factor) of 30 or higher that protect against burning and tanning rays. Apply the lotion 30 minutes before you go outside. (Broad-spectrum sunscreens protect against UV-B and UV-A rays.) -Wear sunglasses to protect your eyes. -Use a lip balm with sunscreen. -Avoid the sun between 10am and 4pm. -Show any changing mole to your health care provider. José Sheikh APRN.SHARON 02/01/2025 1:30 PM Signed Department of Dermatology José Sheikh APRN.SHARON 02/01/2025 Last visit in Dermatology: 11/02/2024 Objective/Assessment/Plan Skin Exam 1. AK (ACTINIC KERATOSIS) (3) Head - Anterior (Face), Right Forearm - Posterior (2) Erythematous, hyperkeratotic papules Discussed etiology, prognosis, and treatment options. Recommend PDT for the face and ears Start twice daily application of efudex x2 weeks for the lesion on the right forearm. R/b/a for the medication(s) including possible side effects discussed and reviewed with patient. Related Procedures PHOTODYNAMIC THERAPY Related Medications Aminolevulinic Acid HCl 20 % soln 1 Each 2. MULTIPLE BENIGN NEVI Generalized Multiple scattered pink papules with flaccid epidermis and small, symmetric kaur to brown macules with uniform pigmentation over the trunk and extremities. Observational course. Monitor for growth and changes. 3. SEBORRHEIC KERATOSIS Generalized Stuck-on verrucous, variably pigmented papules and plaques. Scattered to the trunk, bilateral upper extremities, bilateral lower extremities. Observational course. Monitor for growth and changes. 4. LENTIGINES Generalized Densely scattered light kaur macules and small patches on all sun exposed areas. Observational course. Monitor for growth and changes. 5. DELEON ANGIOMA Generalized Deleon-red papules scattered to the trunk, bilateral upper extremities, bilateral lower extremities. Observational course. Monitor for growth and changes. 6. HISTORY OF NONMELANOMA SKIN CANCER Generalized No evidence of recurrence at previous surgical site Recommend Q3 month skin exams and regular dermatology follow up 7. 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 SKIN CANCER SCREENING Generalized The patient's skin was examined for evidence of cutaneous malignancy. The nature of sun-induced photo-aging and skin cancers is discussed. Sun avoidance, protective clothing, and the use of 30-SPF sunscreens is advised. Patient is instructed to perform regular self exams. Patient instructed to observe for changing, symptomatic, or new skin lesions and encouraged to contact our office for evaluation. Follow-up as noted below or as needed. Chief Complaint: Patient presents with: Full Body Skin Check Subjective and Objective HPI: Raya Vazquez is a 85 year old male who presents for skin check. 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 Medication list is reviewed. Physical Exam included: Scalp, face, ears, neck, chest, back, abdomen, bilateral upper extremities, bilateral lower extremities, buttocks, hands, feet, nails and hair The documentation for this note was completed by Tawny Bradford LPN acting as scribe for José Sheikh APRN.SHARON. February 01, 2025 12:09 PM Intake: Armen Costa LPN I agree with the Chief Complaint, ROS, and Past Histories independently gathered by the clinical administrative support clerk and the remaining scribed note accurately describes my personal service to the patient. José Sheikh APRN.ADVERTISING ASSISTANT Allergies As of Date: 02/01/2025 Noted Allergy Reaction GLUTEN 04/11/2021 14 - Other: See Comments LACTOSE 04/11/2021 8 - GI Upset Date Reviewed: 02/01/2025 Reviewed by: Armen Costa LPN - Fully Assessed Reason for Visit: Full Body Skin Check [1445] Primary Visit Diagnosis:AK (actinic keratosis) [L57.0] Other Visit Diagnoses:Multiple benign nevi [D22.9] Seborrheic keratosis [L82.1] Lentigines [L81.4] Deleon angioma [D18.01] History of nonmelanoma skin cancer [Z85.828] Personal history of malignant melanoma of skin [Z85.820] Skin cancer screening [Z12.83] Order(s):PHOTODYNAMIC THERAPY [[id number]] Order #: [id number] Fluorouracil (EFUDEX) 5 % creamApply to affected area two times a day for 14 days. For the affected area on the right forearmDisp: 40 gRfl: 0 Prescriptions as of 02/01/2025 - Fluorouracil (EFUDEX) 5 % cream Apply to affected area two times a day for 14 days. For the affected area on the right forearm - TRULICITY 1.5 mg/0.5 mL pen injector Inject 1.5 mg subcutaneously one time a week. - cetirizine (ZYRTEC) 10 mg tablet Take 1 tablet by mouth once daily. - tamsulosin (FLOMAX) 0.4 mg Take 2 capsules by mouth once daily. - clobetasol (TEMOVATE) 0.05 % ointment Apply to affected area twice daily as needed. Use 5 days per week. Not for face, armpits or groin - montelukast (SINGULAIR) 10 mg tablet Take 1 tablet by mouth daily at bedtime. - triamcinolone acetonide (KENALOG) 0.1 % ointment Apply to affected area twice daily as needed. Use for up to a week on stinging/burning areas of the face. DO NOT USE FOR MORE THAN ONE WEEK - triamcinolone acetonide (KENALOG) 0.1 % ointment Apply to affected area twice daily as needed. Apply to affected area twice daily as needed. - metFORMIN ER (GLUCOPHAGE XR) 500 mg 24 hr tablet - mupirocin (BACTROBAN) 2 % ointment Apply to affected area three times daily. - isosorbide mononitrate ER (IMDUR) 30 mg 24 hr tablet - atorvastatin (LIPITOR) 40 mg tablet - vit C/E/zinc ox/radha/lut/zeax (ICAPS AREDS2 ORAL) Take by mouth. - Vitamin E, dl, acetate, (VITAMIN E) 400 unit capsule Take 400 Units by mouth once daily. - vit A,C,G-Fqiz-Allhxq (PRESERVISION AREDS) 7,160 unit- 113 mg-100 unit tab - amlodipine besylate (AMLODIPINE ORAL) Take 5 mg by mouth two times a day. - valsartan (DIOVAN) 320 mg tablet Take 160 mg by mouth once daily. - hydroCHLOROthiazide (HYDRODIURIL, ESIDRIX) 25 mg tablet Take 25 mg by mouth every other day. - metoprolol succinate ER (TOPROL XL) 25 mg 24 hr tablet Take 100 mg by mouth once daily. - cholecalciferol, vitamin D3, 4,000 unit cap Take 1 capsule by mouth daily - aspirin(ECOTRIN LOW STRENGTH 81 MG TAB) Take one (1) tablet every other day Facility-Administered Medications as of 02/01/2025 - Aminolevulinic Acid HCl 20 % soln 1 Each Medication notes this encounter TRULICITY 1.5 MG/0.5 ML SUBCUTANEOUS PEN INJECTOR >> Armen Costa LPN 02/01/2025 11:45 AM >> ARMEN COSTA Etelvina Feb 01, 2025 11:45 AM 3mg once weekly METFORMIN ER 500 MG TABLET,EXTENDED RELEASE 24 HR >> Armen Costa LPN 02/01/2025 11:45 AM >> ARMEN COSTA Feb 01, 2025 11:45 AM Once daily Problem List As Of Date 02/01/2025 Noted Resolved DIARRHEA NOS [R19.7] 11/13/2008 ABDOMINAL PAIN UNSPEC SITE [R10.9] 11/13/2008 LOSS OF WEIGHT [R63.4] 11/13/2008 BPH with obstruction/lower urinary tract sympto*01/27/2019 Urinary frequency [R35.0] 05/26/2019 Weak urinary stream [R39.12] 05/26/2019 Nocturia [R35.1] 05/26/2019 Obesity, Class I, BMI 30-34.9 [E66.811] 09/28/2019 Incomplete bladder emptying [R33.9] 09/28/2019 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 We had an opportunity to discuss my findings and any treatments I recommended. I believe that there are several steps that a person can do to help prevent skin cancers and to detect them at an early, treatable stage: 1. I highly recommend that once a month you perform your own complete skin check looking for changing or unusual spots. Use a wall-mounted mirror and a hand mirror to assist in seeing body areas that are difficult to see otherwise. If you have a family member that can assist, this is often helpful. Additional information can be obtained at: www.skincancer.org/oyjj-qkzcer-hiczobeavdc/early-detection 2. In many cases, skin cancer can be prevented. The best way to protect yourself is to avoid too much sun and sunburns. Health care providers believe that ultraviolet rays (UV rays) from the sun damage the skin and over time lead to skin cancer. Here are ways to protect yourself: -Don't spend long periods of time in direct sunlight. -Wear hats with brims to protect your face and ears. -Wear long-sleeved shirts and pants to protect your arms and legs. -Use broad spectrum sunscreens with a SPF (skin protection factor) of 30 or higher that protect against burning and tanning rays. Apply the lotion 30 minutes before you go outside. (Broad-spectrum sunscreens protect against UV-B and UV-A rays.) -Wear sunglasses to protect your eyes. -Use a lip balm with sunscreen. -Avoid the sun between 10am and 4pm. -Show any changing mole to your health care provider. Prescriptions ordered this encounter Disp Refills Start End FLUOROURACIL 5 % TOPICAL CREAM 40 g 0 02/01/2025 02/15/2025 Route: TOPICAL Sig: Apply to affected area two times a day for 14 days. For the affected area on the right forearm Disposition: Return in about 3 months (around 05/04/2025) for Full Body Skin Check. Follow-up and Disposition History for Encounter Date Provider Department Center 02/01/2025 [id number] SHEIKH [facility] Encounter Status:Closed by JOSÉ SHEIKH on 02/01/25 PROGRESS Observed: 02/01/2025 12:00 PM Status: COMPLETED Source: [facility] HNO ID: [id number] Author: JOSÉ SHEIKH APRN.SHARON Service: ? Author Type: Nurse Practitioner Type: Progress Notes Filed: 02/01/2025 13:30 Note Text: Department of Dermatology José Sheikh APRN.CNP02/01/2025 Last visit in Dermatology: 11/02/2024 Objective/Assessment/Plan Skin Exam 1. AK (ACTINIC KERATOSIS) (3) Head - Anterior (Face), Right Forearm - Posterior (2) Erythematous, hyperkeratotic papules Discussed etiology, prognosis, and treatment options. Recommend PDT for the face and ears Start twice daily application of efudex x2 weeks for the lesion on the right forearm. R/b/a for the medication(s) including possible side effects discussed and reviewed with patient. Related Procedures PHOTODYNAMIC THERAPY Related Medications Aminolevulinic Acid HCl 20 % soln 1 Each 2. MULTIPLE BENIGN NEVI Generalized Multiple scattered pink papules with flaccid epidermis and small, symmetric kaur to brown macules with uniform pigmentation over the trunk and extremities. Observational course. Monitor for growth and changes. 3. SEBORRHEIC KERATOSIS Generalized Stuck-on verrucous, variably pigmented papules and plaques. Scattered to the trunk, bilateral upper extremities, bilateral lower extremities. Observational course. Monitor for growth and changes. 4. LENTIGINES Generalized Densely scattered light kaur macules and small patches on all sun exposed areas. Observational course. Monitor for growth and changes. 5. DELEON ANGIOMA Generalized Deleon-red papules scattered to the trunk, bilateral upper extremities, bilateral lower extremities. Observational course. Monitor for growth and changes. 6. HISTORY OF NONMELANOMA SKIN CANCER Generalized No evidence of recurrence at previous surgical site Recommend Q3 month skin exams and regular dermatology follow up 7. 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 SKIN CANCER SCREENING Generalized The patient's skin was examined for evidence of cutaneous malignancy. The nature of sun-induced photo-aging and skin cancers is discussed. Sun avoidance, protective clothing, and the use of 30-SPF sunscreens is advised. Patient is instructed to perform regular self exams. Patient instructed to observe for changing, symptomatic, or new skin lesions and encouraged to contact our office for evaluation. Follow-up as noted below or as needed. Chief Complaint: Patient presents with: Full Body Skin Check Subjective and Objective HPI: Raya Vazquez is a 85 year old male who presents for skin check. 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 Medication list is reviewed. Physical Exam included: Scalp, face, ears, neck, chest, back, abdomen, bilateral upper extremities, bilateral lower extremities, buttocks, hands, feet, nails and hair The documentation for this note was completed by Tawny Bradford LPN acting as scribe for José Sheikh APRN.SHARON. February 01, 2025 12:09 PM Intake: Armen Costa LPN I agree with the Chief Complaint, ROS, and Past Histories independently gathered by the clinical administrative support clerk and the remaining scribed note accurately describes my personal service to the patient. José Sheikh APRN.SHARON CNOV Observed: 12/21/2024 11:00 AM Status: COMPLETED Source: [facility] Office Visit (GENM4) RAYA VAZQUEZ ([id number]) 1940 M Date Time Provider Department 12/21/24 11:00 AM JOSE RAMON ROBERSON During your visit today, we recorded the following information about you: Temperature Pulse Respiration Blood pressure 96.6 degrees 64/minute 20/minute 159/71 Jose Ramon Roberson MD 12/22/2024 5:30 PM Signed Additional intake questions: Has the patient had fever, nausea, vomiting, diarrhea, constipation, fatigue for > 1 week? No Does the patient have a decreased appetite? No Does patient want to see a Toddler Guide? No (yes to any of above refer patient to schedulers for dietitian appointment) ) Does patient have any new or increased numbness or tingling of extremities? No Is patient interested in fertility information? No Does patient need any prescription refills? No Does patient have an advanced directive in place? 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 Patient is well post-operatively with no complications. Patient denies fevers, chills or night sweats. Patient stated he had minimal discharge. Wound in clinic is clean, dry and intact. Two prolene sutures removed in clinic. PATHOLOGY: FINAL DIAGNOSIS A. Skin, left back, excision: - Scar and reactive changes consistent with prior procedure. - Negative for residual neoplasm. - Incidental intradermal nevus. PAST MEDICAL HISTORY Diagnosis Date Essential hypertension, benign Unspecified asthma(493.90) Unspecified sleep apnea PAST SURGICAL HISTORY Procedure Laterality Date CHOLECYSTOSTOMY PRQ W/IMAGING AND CATHETER PLMT CYSTOURETHROSCOPY 05/26/2019 Cystoscopy/TRUS -Dr. Felipe EXC/DSTRJ LINGUAL TONSIL ANY METHOD SPX EXCISION LIP LESION 05/24/2020 PAST SURGICAL HISTORY OF external fix of Lt frature XCAPSL CTRC RMVL INSJ IO LENS PROSTH W/O ECP rt eye No family history on file. Social History Tobacco Use Smoking status: Never Smokeless tobacco: Never (Not in a hospital admission) Current Facility-Administered Medications Medication Dose Route Frequency Aminolevulinic Acid HCl 20 % soln 1 Each 1 Each TOPICAL As Directed ALLERGIES Allergen Reactions Gluten Other: See Comments Lactose GI Upset ASSESSMENT AND PLAN: Raya Vazquez is a 84 year old male SCC insitu (right catholic 2022), BCC (left mandible 2019), SCC (lower lip 2019), BPH, HTN, Crohns, DM and CAD who presents today as a follow up for a wide-local excision of left shoulder melanoma (Stage IB) done 11/27. Patient is doing well with no complaints. - Continue to monitor patient in 6 months time. - Recommend follow up with dermatology for screening. Edie Guzman MD General Surgery Resident 12/21/2024 11:00 AM I performed a history and physical examination of the patient and discussed his management with the resident. I reviewed the resident's note and agree with the documented findings and plan of care. The patient has a Stage IB melanoma and did not undergo a sentinel lymph node biopsy secondary to his age and risk factors. He understood that this was a relatively lower risk melanoma and that we would see him in 6 months for surveillance. He was encouraged to continue dermatology surveillance as well. He was instructed on the signs/symptoms of melanoma recurrence and agreed to contact our clinic for any issues or concerns. 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 - cetirizine (ZYRTEC) 10 mg tablet Take 1 tablet by mouth once daily. - tamsulosin (FLOMAX) 0.4 mg Take 2 capsules by mouth once daily. - clobetasol (TEMOVATE) 0.05 % ointment Apply to affected area twice daily as needed. Use 5 days per week. Not for face, armpits or groin - montelukast (SINGULAIR) 10 mg tablet Take 1 tablet by mouth daily at bedtime. - triamcinolone acetonide (KENALOG) 0.1 % ointment Apply to affected area twice daily as needed. Use for up to a week on stinging/burning areas of the face. DO NOT USE FOR MORE THAN ONE WEEK - triamcinolone acetonide (KENALOG) 0.1 % ointment Apply to affected area twice daily as needed. Apply to affected area twice daily as needed. - metFORMIN ER (GLUCOPHAGE XR) 500 mg 24 hr tablet - mupirocin (BACTROBAN) 2 % ointment Apply to affected area three times daily. - isosorbide mononitrate ER (IMDUR) 30 mg 24 hr tablet - atorvastatin (LIPITOR) 40 mg tablet - vit C/E/zinc ox/radha/lut/zeax (ICAPS AREDS2 ORAL) Take by mouth. - Vitamin E, dl, acetate, (VITAMIN E) 400 unit capsule Take 400 Units by mouth once daily. - vit A,C,Z-Yesa-Eahzrn (PRESERVISION AREDS) 7,160 unit- 113 mg-100 unit tab - amlodipine besylate (AMLODIPINE ORAL) Take 5 mg by mouth two times a day. - valsartan (DIOVAN) 320 mg tablet Take 160 mg by mouth once daily. - hydroCHLOROthiazide (HYDRODIURIL, ESIDRIX) 25 mg tablet Take 25 mg by mouth every other day. - metoprolol succinate ER (TOPROL XL) 25 mg 24 hr tablet Take 100 mg by mouth once daily. - cholecalciferol, vitamin D3, 4,000 unit cap Take 1 capsule by mouth daily - aspirin(ECOTRIN LOW STRENGTH 81 MG TAB) Take one (1) tablet every other day Facility-Administered Medications as of 12/22/2024 - Aminolevulinic Acid HCl 20 % soln 1 Each Problem List As Of Date 12/21/2024 Noted Resolved DIARRHEA NOS [R19.7] 11/13/2008 ABDOMINAL PAIN UNSPEC SITE [R10.9] 11/13/2008 LOSS OF WEIGHT [R63.4] 11/13/2008 BPH with obstruction/lower urinary tract sympto*01/27/2019 Urinary frequency [R35.0] 05/26/2019 Weak urinary stream [R39.12] 05/26/2019 Nocturia [R35.1] 05/26/2019 Obesity, Class I, BMI 30-34.9 [E66.811] 09/28/2019 Incomplete bladder emptying [R33.9] 09/28/2019 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 - folic acid 1 mg tablet (Discontinued) Take 1 mg by mouth once daily. - sulfaSALAzine (AZULFIDINE) 500 mg tablet (Discontinued) Take 500 mg by mouth four times daily. - TRULICITY 0.75 mg/0.5 mL pen injector (Discontinued) Reported on 11/16/2024 Level of Service: POSTOP FOLLOW UP VISIT RELATED TO ORIGINAL PX [[id number]] LOS History for Encounter Level of Service: POSTOP FOLLOW UP VISIT RELATED TO ORIGINAL PX[[id number]] Date AND Time: 12-22-2024 5:25 PM Recorded by User: JOSE RAMON ROBERSON Encounter Status:Closed by JOSE RAMON ROBERSON on 12/22/24 PROGRESS Observed: 12/21/2024 10:59 AM Status: COMPLETED Source: [facility] HNO ID: [id number] Author: JOSE RAMON ROBERSON MD Service: ? Author Type: Physician Type: Progress Notes Filed: 12/22/2024 17:30 Note Text: GENERAL SURGERY Clinic Follow-up NOTE Patient name: Raya Vazquez Date of : 1940 PRESENTING COMPLAIN: follow up post WLE of left shoulder lesion HISTORY OF PRESENT ILLNESS: Raya Vazquez is a 84 year old male SCC in situ (right catholic 2022), BCC (left mandible 2019), SCC (lower lip 2019), BPH, HTN, Crohns, DM and CAD who presents today as a follow up for a wide-local excision of left shoulder melanoma (Stage 1B) done 11/27. Patient is well post-operatively with no complications. Patient denies fevers, chills or night sweats. Patient stated he had minimal discharge. Wound in clinic is clean, dry and intact. Two prolene sutures removed in clinic. PATHOLOGY: FINAL DIAGNOSIS A. Skin, left back, excision: - Scar and reactive changes consistent with prior procedure. - Negative for residual neoplasm. - Incidental intradermal nevus. PAST MEDICAL HISTORY Diagnosis Date Essential hypertension, benign Unspecified asthma(493.90) Unspecified sleep apnea PAST SURGICAL HISTORY Procedure Laterality Date CHOLECYSTOSTOMY PRQ W/IMAGING AND CATHETER PLMT CYSTOURETHROSCOPY 05/26/2019 Cystoscopy/TRUS -Dr. Felipe EXC/DSTRJ LINGUAL TONSIL ANY METHOD SPX EXCISION LIP LESION 05/24/2020 PAST SURGICAL HISTORY OF external fix of Lt frature XCAPSL CTRC RMVL INSJ IO LENS PROSTH W/O ECP rt eye No family history on file. Social History Tobacco Use Smoking status: Never Smokeless tobacco: Never (Not in a hospital admission) Current Facility-Administered Medications Medication Dose Route Frequency Aminolevulinic Acid HCl 20 % soln 1 Each 1 Each TOPICAL As Directed ALLERGIES Allergen Reactions Gluten Other: See Comments Lactose GI Upset ASSESSMENT AND PLAN: Raya Vazquez is a 84 year old male SCC insitu (right catholic 2022), BCC (left mandible 2019), SCC (lower lip 2019), BPH, HTN, Crohns, DM and CAD who presents today as a follow up for a wide-local excision of left shoulder melanoma (Stage IB) done 11/27. Patient is doing well with no complaints. - Continue to monitor patient in 6 months time. - Recommend follow up with dermatology for screening. Edie Guzman MD General Surgery Resident 12/21/2024 11:00 AM I performed a history and physical examination of the patient and discussed his management with the resident. I reviewed the resident's note and agree with the documented findings and plan of care. The patient has a Stage IB melanoma and did not undergo a sentinel lymph node biopsy secondary to his age and risk factors. He understood that this was a relatively lower risk melanoma and that we would see him in 6 months for surveillance. He was encouraged to continue dermatology surveillance as well. He was instructed on the signs/symptoms of melanoma recurrence and agreed to contact our clinic for any issues or concerns. PROGRESS Observed: 12/21/2024 10:37 AM Status: COMPLETED Source: [facility] HNO ID: [id number] Author: JOSE RAMON ROBERSON MD Service: ? Author Type: Physician Type: Progress Notes Filed: 12/22/2024 17:30 Note Text: Additional intake questions: Has the patient had fever, nausea, vomiting, diarrhea, constipation, fatigue for > 1 week? No Does the patient have a decreased appetite? No Does patient want to see a Toddler Guide? No (yes to any of above refer patient to schedulers for dietitian appointment) ) Does patient have any new or increased numbness or tingling of extremities? No Is patient interested in fertility information? No Does patient need any prescription refills? No Does patient have an advanced directive in place? Yes, copies are in Epic Electronically Signed By: CHIQUI Shoemaker Observed: 12/01/2024 12:00 AM Status: COMPLETED Source: [facility] Telephone ([employer]) RAYA VAZQUEZ ([id number]) 1940 M Date Time Provider Department 12/01/24 JOSE RAMON ROBERSON During your visit today, we recorded the following information about you: Don Carranza 12/01/2024 1:33 PM Signed Jane from pt's PCP's office Dr. Viveros is requesting pt's Pathology results faxed to: [phone]/ATTN: Krista Contact info: [phone] Marifer Romano, KIESHA 12/01/2024 4:35 PM Signed Faxed over path report and op report Allergies As of Date: 12/01/2024 Noted Allergy Reaction GLUTEN 04/11/2021 14 - Other: See Comments LACTOSE 04/11/2021 8 - GI Upset Date Reviewed: 11/27/2024 Reviewed by: Nafisa Ortega RN - Fully Assessed Reason for Visit: Patient Update [1234] Prescriptions as of 12/01/2024 - TRULICITY 1.5 mg/0.5 mL pen injector Inject 1.5 mg subcutaneously one time a week. - cetirizine (ZYRTEC) 10 mg tablet Take 1 tablet by mouth once daily. - tamsulosin (FLOMAX) 0.4 mg Take 2 capsules by mouth once daily. - clobetasol (TEMOVATE) 0.05 % ointment Apply to affected area twice daily as needed. Use 5 days per week. Not for face, armpits or groin - montelukast (SINGULAIR) 10 mg tablet Take 1 tablet by mouth daily at bedtime. - albuterol HFA (PROVENTIL HFA, VENTOLIN HFA) 90 mcg/actuation inhaler Inhale 2 Puffs as instructed every 4 hours as needed for wheezing/shortness of breath. - triamcinolone acetonide (KENALOG) 0.1 % ointment Apply to affected area twice daily as needed. Use for up to a week on stinging/burning areas of the face. DO NOT USE FOR MORE THAN ONE WEEK - clopidogrel (PLAVIX) 75 mg tablet Take 75 mg by mouth once daily. - triamcinolone acetonide (KENALOG) 0.1 % ointment Apply to affected area twice daily as needed. Apply to affected area twice daily as needed. - folic acid 1 mg tablet Take 1 mg by mouth once daily. - sulfaSALAzine (AZULFIDINE) 500 mg tablet Take 500 mg by mouth four times daily. - TRULICITY 0.75 mg/0.5 mL pen injector - metFORMIN ER (GLUCOPHAGE XR) 500 mg 24 hr tablet - mupirocin (BACTROBAN) 2 % ointment Apply to affected area three times daily. - BRILINTA 90 mg tablet - isosorbide mononitrate ER (IMDUR) 30 mg 24 hr tablet - atorvastatin (LIPITOR) 40 mg tablet - vit C/E/zinc ox/radha/lut/zeax (ICAPS AREDS2 ORAL) Take by mouth. - Vitamin E, dl, acetate, (VITAMIN E) 400 unit capsule Take 400 Units by mouth once daily. - vit A,C,C-Uflh-Tvvyxn (PRESERVISION AREDS) 7,160 unit- 113 mg-100 unit tab - amlodipine besylate (AMLODIPINE ORAL) Take 5 mg by mouth two times a day. - valsartan (DIOVAN) 320 mg tablet Take 160 mg by mouth once daily. - hydroCHLOROthiazide (HYDRODIURIL, ESIDRIX) 25 mg tablet Take 25 mg by mouth every other day. - metoprolol succinate ER (TOPROL XL) 25 mg 24 hr tablet Take 100 mg by mouth once daily. - cholecalciferol, vitamin D3, 4,000 unit cap Take 1 capsule by mouth daily - aspirin(ECOTRIN LOW STRENGTH 81 MG TAB) Take one (1) tablet every other day Facility-Administered Medications as of 12/01/2024 - Aminolevulinic Acid HCl 20 % soln 1 Each Problem List As Of Date 12/01/2024 Noted Resolved DIARRHEA NOS [R19.7] 11/13/2008 ABDOMINAL PAIN UNSPEC SITE [R10.9] 11/13/2008 LOSS OF WEIGHT [R63.4] 11/13/2008 BPH with obstruction/lower urinary tract sympto*01/27/2019 Urinary frequency [R35.0] 05/26/2019 Weak urinary stream [R39.12] 05/26/2019 Nocturia [R35.1] 05/26/2019 Obesity, Class I, BMI 30-34.9 [E66.811] 09/28/2019 Incomplete bladder emptying [R33.9] 09/28/2019 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 Author Type: Registered Nurse Type: [id number] Filed: 11/27/2024 12:51 Note Text: Discharge instructions: Schedule follow up appointment in 3 weeks. Pain relief: Tylenol, Motrin, ice pack, elevate extremity above the level of the heart Leave exterior post op dressing on for 2 days before removing, then proceed with daily wound care (below) Wound care: If steri strips were applied, do not remove these. These will fall off on their own in a few weeks. Gently cleanse the site with soap and water, apply a thin layer of antibiotic ointment, cover site with a dry dressing and apply ROBEL wrap bandage If experiencing wound complications or have any questions or concerns during business hours call [phone] or after hours (after 5 pm or on the weekend) call [phone] and ask for the general surgery resident / fellow jewelry consultant for further instructions. If you have increasing swelling or bruising, particularly one side greater than the other. If swelling and redness persists after a few days. If you have increased redness along the incision. If you have severe or increased pain not relieved by medication. If you have an oral temperature of 100.4 degrees or higher. If you have any yellow or greenish drainage from the incisions or notice a foul smell. If you have bleeding from the incisions that is difficult to control with light pressure If you have new chest pain, shortness of breath or difficulty breathing SURGICAL PATHOLOGY Collected: 12:25 PM Status: F Source: [facility] Order Comment: Specimen Type : TISSUE SPECIMEN Ordering Facility: [facility] Address: [address] [place] [address] TYPE CODE TESTS RESULT OUT OF RANGE REFERENCE UNITS PATHOLOGY [id number] CASE REPORT Result Comment: Surgical Pat hology Report Case: [id number] Authorizing Provider: Jose Ramon Roberson MD Collected: 11/27/2024 12:25 PM [facility] Received: 11/27/2024 05:16 PM Pathologist: Celestino García MD Specimen: Skin, Excision, left back melanoma PATHOLOGY [id number] FINAL DIAGNOSIS Result Comment: A. Skin, lef t back, excision: - Scar and reactive changes consistent with prior procedure. - Negative for residual neoplasm. - Incidental intradermal nevus. SDB/EB 12/01/2024 OLOGY [id number] GROSS DESCRIPTION Result Comment: A. Skin, Exc ision Received in formalin is an oriented elliptical segment of skin and subcutaneous tissue measuring 5.2 x 3.6 x 1.8 cm. A suture terrell the superior margin and is redesignated at the 12:00 margin. The skin surface demonstrates an irregular kaur-pink slightly depressed, scarred area measuring 3.4 x 3.2 cm, and extends to both margins. The 6:00 margin is inked orange, the 12:00 margin is inked blue, and the deep margin is inked black. The specimen is sectioned and totally submitted as follows: A1 3:00 tip, A2 9:00 tip, A3-A14 remainder of tissue. 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 Performed By: #### S #### [facility] CLIA [id number] [address] [place], [place] [address] [address] [place] [facility] NO Observed: 11/27/2024 12:09 PM Status: COMPLETED Source: [facility] HNO ID: [id number] Author: JOSE RAMON ROBERSON MD Service: General Surgery Author Type: Physician Type: Operative Report Filed: 11/27/2024 14:59 Note Text: OPERATIVE/PROCEDURE REPORT LOG ID: [id number] SURGERY/PROCEDURE DATE: 11/27/2024 INCISION/PROCEDURE START TIME: 12:22 PM INCISION CLOSE/PROCEDURE END TIME: 12:33 PM SURGEON(S)/PROCEDURALIST(S) AND BLACKSMITH HELPER(S): Surgeons and Role: * Jose Ramon Roberson MD - Primary No Additional Staff SURGERY/PROCEDURE(S): Wide local excision of left upper back melanoma ANESTHESIA: Local SURGERY/PROCEDURE DETAILS: The patient was brought to the procedure room and placed on the procedure room table in the seated position. The left back was exposed. The lesion site originally measured 1.0x0.6 cm and converting this to an ellipse with 1.5 cm margins, the final measurements were 4.0x6.2 cm. The area was prepped with ChloraPrep and sterile towels applied for exposure of the site. The skin was infiltrated with 1% lidocaine solution and then incised with a scalpel. The underlying subcutaneous tissue was dissected sharply and bluntly with the use of electrocautery down to the level of the fascia. The specimen was removed keeping the fascia intact. The specimen was marked and sent to pathology for further evaluation. The wound was copiously irrigated with sterile water. Hemostasis was meticulously achieved. The wound was re-approximated with interrupted 2-0 Vicryl deep dermal sutures reinforced in the middle with interrupted 3-0 prolene sutures x2. The epidermis was re-approximated with Dermabond. The patient tolerated the procedure well and left the clinic without any difficulties. PRE-OP/PRE-PROCEDURE DIAGNOSIS: Stage IB melanoma of left upper back POST-OP/POST-PROCEDURE DIAGNOSIS: Same as Preop Wide Local Excision for Primary Cutaneous Melanoma - Excision 1 (Back) Operation performed with curative intent Yes Original Breslow thickness of the lesion 1.2 mm (to the tenth of a millimeter) Clinical margin width (measured from the edge of the lesion or the prior excision scar) Other 1.5 cm as deep margin was positive on initial biopsy Depth of excision Full-thickness skin/subcutaneous tissue down to fascia (melanoma) ESTIMATED BLOOD LOSS: 2 mls SPECIMENS: wide local excision site IMPLANTABLE DEVICES: NONE DRAINS: None COMPLICATIONS: None CLOSURE TECHNIQUE: Primary PARTICIPATION IN SURGERY/PROCEDURE: I/primary surgeon/proceduralist performed the entire procedure. SIGNATURE: Jose Ramon Roberson MD PATIENT NAME: Raya Vazquez DATE: November 27, 2024 TIME: 2:55 PM CNOV Observed: 11/16/2024 11:00 AM Status: COMPLETED Source: [facility] Office Visit (GENM4) RAYA VAZQUEZ ([id number]) 1940 M Date Time Provider Department 11/16/24 11:00 AM JOSE RAMON ROBERSON During your visit today, we recorded the following information about you: Temperature Pulse Respiration Blood pressure 96.6 degrees 67/minute 20/minute 154/67 Pancho Vazquez MA 11/16/2024 4:50 PM Signed Additional intake questions: Has the patient had fever, nausea, vomiting, diarrhea, constipation, fatigue for > 1 week? No Does the patient have a decreased appetite? No Does patient want to see a Toddler Guide? No (yes to any of above refer patient to schedulers for dietitian appointment) ) Does patient have any new or increased numbness or tingling of extremities? No Is patient interested in fertility information? No Does patient need any prescription refills? No Does patient have an advanced directive in place? Yes, copies are in Epic Electronically Signed By: CHIQUI Shoemaker Joseph, MD 11/16/2024 4:50 PM Signed HISTORY AND PHYSICAL EXAMINATION Patient Name: Raya Vazquez PRIMARY CARE PHYSICIAN: Dao Viveros Jr, MD CHIEF COMPLAINT: Melanoma HPI: This is a 84 year old male who presents with lesion on Lt upper back with a biopsy positive for melanoma. 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 During most recent visit on 11/02 a shave biopsy of suspicious lesion on the lt upper back was performed which was positive for Melanoma. Pathology 11/02/2024: . Skin, left upper back, shave biopsy: - Melanoma TUMOR Tumor Site Skin of trunk: Upper back Histologic Type Nevoid melanoma Maximum Tumor (Breslow) Thickness (Millimeters) 1.2 mm Ulceration Not identified Anatomic (Perfecto) Level IV (melanoma invades reticular dermis) Mitotic Rate None identified Microsatellite(s) Not identified Lymphatic and / or Vascular Invasion Not identified Neurotropism Not identified Tumor-Infiltrating Lymphocytes Not identified Tumor Regression Present MARGINS Margin Status for Invasive Melanoma Invasive melanoma present at margin Margin(s) Involved by Invasive Melanoma Deep Margin Status for Melanoma In Situ All margins negative for melanoma in situ pTMN CLASSIFICATION (AJCC 8th Edition) Reporting of pT category is based on information available to the pathologist at the time the report is issued. As per the AJCC (Chapter 1, 8th Ed.) it is the managing physician?s responsibility to establish the final pathologic stage based upon all pertinent information, including but potentially not limited to this pathology report. pT Category pT2a PAST MEDICAL HISTORY: PAST MEDICAL HISTORY Diagnosis Date Essential hypertension, benign Unspecified asthma(493.90) Unspecified sleep apnea PAST SURGICAL HISTORY: PAST SURGICAL HISTORY Procedure Laterality Date CHOLECYSTOSTOMY PRQ W/IMAGING AND CATHETER PLMT CYSTOURETHROSCOPY 05/26/2019 Cystoscopy/TRUS -Dr. Felipe EXC/DSTRJ LINGUAL TONSIL ANY METHOD SPX EXCISION LIP LESION 05/24/2020 PAST SURGICAL HISTORY OF external fix of Lt frature XCAPSL CTRC RMVL INSJ IO LENS PROSTH W/O ECP rt eye FAMILY HISTORY: No family history on file. SOCIAL HISTORY: Social History Tobacco Use Smoking status: Never Smokeless tobacco: Never MEDICATIONS: Prior to Admission Medications: TRULICITY 1.5 mg/0.5 mL pen injectorInject 1.5 mg subcutaneously one time a week.Disp: Rfl: cetirizine (ZYRTEC) 10 mg tabletTake 1 tablet by mouth once daily.Disp: 90 tabletRfl: 0 tamsulosin (FLOMAX) 0.4 mgTake 2 capsules by mouth once daily.Disp: 180 capsuleRfl: 3 clobetasol (TEMOVATE) 0.05 % ointmentApply to affected area twice daily as needed. Use 5 days per week. Not for face, armpits or groinDisp: 30 gRfl: 1 montelukast (SINGULAIR) 10 mg tabletTake 1 tablet by mouth daily at bedtime.Disp: 90 tabletRfl: 1 triamcinolone acetonide (KENALOG) 0.1 % ointmentApply to affected area twice daily as needed. Use for up to a week on stinging/burning areas of the face. DO NOT USE FOR MORE THAN ONE WEEKDisp: 80 gRfl: 0 triamcinolone acetonide (KENALOG) 0.1 % ointmentApply to affected area twice daily as needed. Apply to affected area twice daily as needed.Disp: 453.6 gRfl: 1 metFORMIN ER (GLUCOPHAGE XR) 500 mg 24 hr tabletDisp: Rfl: mupirocin (BACTROBAN) 2 % ointmentApply to affected area three times daily.Disp: 30 gRfl: 0 isosorbide mononitrate ER (IMDUR) 30 mg 24 hr tabletDisp: Rfl: atorvastatin (LIPITOR) 40 mg tabletDisp: Rfl: vit C/E/zinc ox/radha/lut/zeax (ICAPS AREDS2 ORAL)Take by mouth.Disp: Rfl: Vitamin E, dl, acetate, (VITAMIN E) 400 unit capsuleTake 400 Units by mouth once daily.Disp: Rfl: vit A,C,Y-Jsog-Aknrmj (PRESERVISION AREDS) 7,160 unit- 113 mg-100 unit tabDisp: Rfl: amlodipine besylate (AMLODIPINE ORAL)Take 5 mg by mouth two times a day.Disp: Rfl: valsartan (DIOVAN) 320 mg tabletTake 160 mg by mouth once daily. Disp: Rfl: hydroCHLOROthiazide (HYDRODIURIL, ESIDRIX) 25 mg tabletTake 25 mg by mouth every other day. Disp: Rfl: metoprolol succinate ER (TOPROL XL) 25 mg 24 hr tabletTake 100 mg by mouth once daily. Disp: Rfl: cholecalciferol, vitamin D3, 4,000 unit capTake 1 capsule by mouth dailyDisp: Rfl: aspirin(ECOTRIN LOW STRENGTH 81 MG TAB)Take one (1) tablet every other day Disp: Rfl: 0 albuterol HFA (PROVENTIL HFA, VENTOLIN HFA) 90 mcg/actuation inhalerInhale 2 Puffs as instructed every 4 hours as needed for wheezing/shortness of breath.Disp: 8 gRfl: 0 (Patient not taking: Reported on 11/16/2024) clopidogrel (PLAVIX) 75 mg tabletTake 75 mg by mouth once daily.Disp: Rfl: folic acid 1 mg tabletTake 1 mg by mouth once daily.Disp: Rfl: sulfaSALAzine (AZULFIDINE) 500 mg tabletTake 500 mg by mouth four times daily.Disp: Rfl: TRULICITY 0.75 mg/0.5 mL pen injectorDisp: Rfl: (Patient not taking: Reported on 11/16/2024) BRILINTA 90 mg tabletDisp: Rfl: ALLERGIES: ALLERGIES Allergen Reactions Gluten Other: See Comments Lactose GI Upset COMPLETE REVIEW OF SYSTEMS: GENERAL: Negative for malaise, significant weight loss and fever RESPIRATORY: Negative for cough, wheezing and shortness of breath CARDIOVASCULAR: Negative for chest pain, leg swelling and palpitations GI: Negative for abdominal discomfort, blood in stools or black stools : Negative for dysuria, frequency and incontinence PHYSICAL EXAM: BP 154/67 Pulse 67 Temp (!) 35.9 ?C (96.6 ?F) (Temporal) Resp 20 SpO2 99% General Appearance: Well appearing, alert, in no acute distress, well-hydrated, well nourished. Skin: Lt upper back lesion, healing from the shave biopsy with healing center and erythematous margins, w/o any satellite or deep lesions Neck: Negative findings: no asymmetry, masses, or scars, no adenopathy, trachea midline and normal to palpitation Respiratory: Lungs clear to auscultation. No wheezing, rhonchi, rales. Heart: RRR without murmur, gallop, or rubs. 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 Based on the characteristics of the lesion and the pathology, thicknes is 1.2 mm, no apparent ulceration, would be stage IB, and a relatively low risk melanoma. On physical examination there I no apparent finding of other satellite or deeper lesions on the lt upper back and no LN was appreciate on exam per the PE documented above. Considering the findings our recommendation would be a wide local excision of he lesion as the definitive treatment under local anesthesia. Considering the risk of cheli metastatis with his findings is around 3% percent, the lesion is at early stages, and pts comorbidity and over all clinical picture will not recommend SLNB at present time. Risks and benefits of the procedure were discussed with the patient and all his questions were answered to his satisfaction. Pt is amenable to the decision. Instructions Given to Patient: Patient given verbal and written preop instructions and voices comprehension and compliance. The patient expressed understanding and agreement with the above plan. Leidy Guerrero MD, MPH General Surgery Resident, PGY-1 Date: 11/16/2024 Time: 10:51 AM I performed a history and physical examination of the patient and discussed his management with the resident. I reviewed the resident's note and agree with the documented findings and plan of care. Will plan for wide local excision in the clinic procedure room on 11/27/2024. Patient will be contacted for exact time. All questions were answered to his satisfaction. 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 - cetirizine (ZYRTEC) 10 mg tablet Take 1 tablet by mouth once daily. - tamsulosin (FLOMAX) 0.4 mg Take 2 capsules by mouth once daily. - clobetasol (TEMOVATE) 0.05 % ointment Apply to affected area twice daily as needed. Use 5 days per week. Not for face, armpits or groin - montelukast (SINGULAIR) 10 mg tablet Take 1 tablet by mouth daily at bedtime. - albuterol HFA (PROVENTIL HFA, VENTOLIN HFA) 90 mcg/actuation inhaler Inhale 2 Puffs as instructed every 4 hours as needed for wheezing/shortness of breath. - triamcinolone acetonide (KENALOG) 0.1 % ointment Apply to affected area twice daily as needed. Use for up to a week on stinging/burning areas of the face. DO NOT USE FOR MORE THAN ONE WEEK - clopidogrel (PLAVIX) 75 mg tablet Take 75 mg by mouth once daily. - triamcinolone acetonide (KENALOG) 0.1 % ointment Apply to affected area twice daily as needed. Apply to affected area twice daily as needed. - folic acid 1 mg tablet Take 1 mg by mouth once daily. - sulfaSALAzine (AZULFIDINE) 500 mg tablet Take 500 mg by mouth four times daily. - TRULICITY 0.75 mg/0.5 mL pen injector - metFORMIN ER (GLUCOPHAGE XR) 500 mg 24 hr tablet - mupirocin (BACTROBAN) 2 % ointment Apply to affected area three times daily. - BRILINTA 90 mg tablet - isosorbide mononitrate ER (IMDUR) 30 mg 24 hr tablet - atorvastatin (LIPITOR) 40 mg tablet - vit C/E/zinc ox/radha/lut/zeax (ICAPS AREDS2 ORAL) Take by mouth. - Vitamin E, dl, acetate, (VITAMIN E) 400 unit capsule Take 400 Units by mouth once daily. - vit A,C,D-Xglm-Teyxjv (PRESERVISION AREDS) 7,160 unit- 113 mg-100 unit tab - amlodipine besylate (AMLODIPINE ORAL) Take 5 mg by mouth two times a day. - valsartan (DIOVAN) 320 mg tablet Take 160 mg by mouth once daily. - hydroCHLOROthiazide (HYDRODIURIL, ESIDRIX) 25 mg tablet Take 25 mg by mouth every other day. - metoprolol succinate ER (TOPROL XL) 25 mg 24 hr tablet Take 100 mg by mouth once daily. - cholecalciferol, vitamin D3, 4,000 unit cap Take 1 capsule by mouth daily - aspirin(ECOTRIN LOW STRENGTH 81 MG TAB) Take one (1) tablet every other day Facility-Administered Medications as of 11/16/2024 - Aminolevulinic Acid HCl 20 % soln 1 Each Problem List As Of Date 11/16/2024 Noted Resolved DIARRHEA NOS [R19.7] 11/13/2008 ABDOMINAL PAIN UNSPEC SITE [R10.9] 11/13/2008 LOSS OF WEIGHT [R63.4] 11/13/2008 BPH with obstruction/lower urinary tract sympto*01/27/2019 Urinary frequency [R35.0] 05/26/2019 Weak urinary stream [R39.12] 05/26/2019 Nocturia [R35.1] 05/26/2019 Obesity, Class I, BMI 30-34.9 [E66.811] 09/28/2019 Incomplete bladder emptying [R33.9] 09/28/2019 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 Acute cystitis with hematuria [N30.01] 04/09/2023 OAB (overactive bladder) [N32.81] 04/09/2023 NO SHOW 06/04/2024 Level of Service: OFFICE/OUTPATIENT NEW MODERATE MDM 45 MINUTES [19842] Additional E/M codes: VISIT CPLX INHERENT EANDM ASSOC WITH MED * LOS History for Encounter Level of Service: OFFICE/OUTPATIENT NEW MODERATE MDM 45 MINUTES[93531] Date AND Time: 11-16-2024 4:48 PM Recorded by User: JOSE RAMON ROBERSON Encounter Status:Closed by JOSE RAMON ROBERSON on 11/16/24 PROGRESS Observed: 11/16/2024 10:49 AM Status: COMPLETED Source: [facility] HNO ID: [id number] Author: JOSE RAMON ROBERSON MD Service: ? Author Type: Physician Type: Progress Notes Filed: 11/16/2024 16:50 Note Text: HISTORY AND PHYSICAL EXAMINATION Patient Name: Raya Vazquez PRIMARY CARE PHYSICIAN: Dao Viveros Jr, MD CHIEF COMPLAINT: Melanoma HPI: This is a 84 year old male who presents with lesion on Lt upper back with a biopsy positive for melanoma. 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 During most recent visit on 11/02 a shave biopsy of suspicious lesion on the lt upper back was performed which was positive for Melanoma. Pathology 11/02/2024: . Skin, left upper back, shave biopsy: - Melanoma TUMOR Tumor Site Skin of trunk: Upper back Histologic Type Nevoid melanoma Maximum Tumor (Breslow) Thickness (Millimeters) 1.2 mm Ulceration Not identified Anatomic (Perfecto) Level IV (melanoma invades reticular dermis) Mitotic Rate None identified Microsatellite(s) Not identified Lymphatic and / or Vascular Invasion Not identified Neurotropism Not identified Tumor-Infiltrating Lymphocytes Not identified Tumor Regression Present MARGINS Margin Status for Invasive Melanoma Invasive melanoma present at margin Margin(s) Involved by Invasive Melanoma Deep Margin Status for Melanoma In Situ All margins negative for melanoma in situ pTMN CLASSIFICATION (AJCC 8th Edition) Reporting of pT category is based on information available to the pathologist at the time the report is issued. As per the AJCC (Chapter 1, 8th Ed.) it is the managing physician?s responsibility to establish the final pathologic stage based upon all pertinent information, including but potentially not limited to this pathology report. pT Category pT2a PAST MEDICAL HISTORY: PAST MEDICAL HISTORY Diagnosis Date Essential hypertension, benign Unspecified asthma(493.90) Unspecified sleep apnea PAST SURGICAL HISTORY: PAST SURGICAL HISTORY Procedure Laterality Date CHOLECYSTOSTOMY PRQ W/IMAGING AND CATHETER PLMT CYSTOURETHROSCOPY 05/26/2019 Cystoscopy/TRUS -Dr. Felipe EXC/DSTRJ LINGUAL TONSIL ANY METHOD SPX EXCISION LIP LESION 05/24/2020 PAST SURGICAL HISTORY OF external fix of Lt frature XCAPSL CTRC RMVL INSJ IO LENS PROSTH W/O ECP rt eye FAMILY HISTORY: No family history on file. SOCIAL HISTORY: Social History Tobacco Use Smoking status: Never Smokeless tobacco: Never MEDICATIONS: Prior to Admission Medications: TRULICITY 1.5 mg/0.5 mL pen injectorInject 1.5 mg subcutaneously one time a week.Disp: Rfl: cetirizine (ZYRTEC) 10 mg tabletTake 1 tablet by mouth once daily.Disp: 90 tabletRfl: 0 tamsulosin (FLOMAX) 0.4 mgTake 2 capsules by mouth once daily.Disp: 180 capsuleRfl: 3 clobetasol (TEMOVATE) 0.05 % ointmentApply to affected area twice daily as needed. Use 5 days per week. Not for face, armpits or groinDisp: 30 gRfl: 1 montelukast (SINGULAIR) 10 mg tabletTake 1 tablet by mouth daily at bedtime.Disp: 90 tabletRfl: 1 triamcinolone acetonide (KENALOG) 0.1 % ointmentApply to affected area twice daily as needed. Use for up to a week on stinging/burning areas of the face. DO NOT USE FOR MORE THAN ONE WEEKDisp: 80 gRfl: 0 triamcinolone acetonide (KENALOG) 0.1 % ointmentApply to affected area twice daily as needed. Apply to affected area twice daily as needed.Disp: 453.6 gRfl: 1 metFORMIN ER (GLUCOPHAGE XR) 500 mg 24 hr tabletDisp: Rfl: mupirocin (BACTROBAN) 2 % ointmentApply to affected area three times daily.Disp: 30 gRfl: 0 isosorbide mononitrate ER (IMDUR) 30 mg 24 hr tabletDisp: Rfl: atorvastatin (LIPITOR) 40 mg tabletDisp: Rfl: vit C/E/zinc ox/radha/lut/zeax (ICAPS AREDS2 ORAL)Take by mouth.Disp: Rfl: Vitamin E, dl, acetate, (VITAMIN E) 400 unit capsuleTake 400 Units by mouth once daily.Disp: Rfl: vit A,C,S-Beec-Kpaqko (PRESERVISION AREDS) 7,160 unit- 113 mg-100 unit tabDisp: Rfl: amlodipine besylate (AMLODIPINE ORAL)Take 5 mg by mouth two times a day.Disp: Rfl: valsartan (DIOVAN) 320 mg tabletTake 160 mg by mouth once daily. Disp: Rfl: hydroCHLOROthiazide (HYDRODIURIL, ESIDRIX) 25 mg tabletTake 25 mg by mouth every other day. Disp: Rfl: metoprolol succinate ER (TOPROL XL) 25 mg 24 hr tabletTake 100 mg by mouth once daily. Disp: Rfl: cholecalciferol, vitamin D3, 4,000 unit capTake 1 capsule by mouth dailyDisp: Rfl: aspirin(ECOTRIN LOW STRENGTH 81 MG TAB)Take one (1) tablet every other day Disp: Rfl: 0 albuterol HFA (PROVENTIL HFA, VENTOLIN HFA) 90 mcg/actuation inhalerInhale 2 Puffs as instructed every 4 hours as needed for wheezing/shortness of breath.Disp: 8 gRfl: 0 (Patient not taking: Reported on 11/16/2024) clopidogrel (PLAVIX) 75 mg tabletTake 75 mg by mouth once daily.Disp: Rfl: folic acid 1 mg tabletTake 1 mg by mouth once daily.Disp: Rfl: sulfaSALAzine (AZULFIDINE) 500 mg tabletTake 500 mg by mouth four times daily.Disp: Rfl: TRULICITY 0.75 mg/0.5 mL pen injectorDisp: Rfl: (Patient not taking: Reported on 11/16/2024) BRILINTA 90 mg tabletDisp: Rfl: ALLERGIES: ALLERGIES Allergen Reactions Gluten Other: See Comments Lactose GI Upset COMPLETE REVIEW OF SYSTEMS: GENERAL: Negative for malaise, significant weight loss and fever RESPIRATORY: Negative for cough, wheezing and shortness of breath CARDIOVASCULAR: Negative for chest pain, leg swelling and palpitations GI: Negative for abdominal discomfort, blood in stools or black stools : Negative for dysuria, frequency and incontinence PHYSICAL EXAM: BP 154/67 Pulse 67 Temp (!) 35.9 ?C (96.6 ?F) (Temporal) Resp 20 SpO2 99% General Appearance: Well appearing, alert, in no acute distress, well-hydrated, well nourished. Skin: Lt upper back lesion, healing from the shave biopsy with healing center and erythematous margins, w/o any satellite or deep lesions Neck: Negative findings: no asymmetry, masses, or scars, no adenopathy, trachea midline and normal to palpitation Respiratory: Lungs clear to auscultation. No wheezing, rhonchi, rales. Heart: RRR without murmur, gallop, or rubs. 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 Based on the characteristics of the lesion and the pathology, thicknes is 1.2 mm, no apparent ulceration, would be stage IB, and a relatively low risk melanoma. On physical examination there I no apparent finding of other satellite or deeper lesions on the lt upper back and no LN was appreciate on exam per the PE documented above. Considering the findings our recommendation would be a wide local excision of he lesion as the definitive treatment under local anesthesia. Considering the risk of cheli metastatis with his findings is around 3% percent, the lesion is at early stages, and pts comorbidity and over all clinical picture will not recommend SLNB at present time. Risks and benefits of the procedure were discussed with the patient and all his questions were answered to his satisfaction. Pt is amenable to the decision. Instructions Given to Patient: Patient given verbal and written preop instructions and voices comprehension and compliance. The patient expressed understanding and agreement with the above plan. Leidy Guerrero MD, MPH General Surgery Resident, PGY-1 Date: 11/16/2024 Time: 10:51 AM I performed a history and physical examination of the patient and discussed his management with the resident. I reviewed the resident's note and agree with the documented findings and plan of care. Will plan for wide local excision in the clinic procedure room on 11/27/2024. Patient will be contacted for exact time. All questions were answered to his satisfaction. PROGRESS Observed: 11/16/2024 10:44 AM Status: COMPLETED Source: [facility] HNO ID: [id number] Author: PANCHO VAZQUEZ MA Service: ? Author Type: Cheesemaker Type: Progress Notes Filed: 11/16/2024 16:50 Note Text: Additional intake questions: Has the patient had fever, nausea, vomiting, diarrhea, constipation, fatigue for > 1 week? No Does the patient have a decreased appetite? No Does patient want to see a Toddler Guide? No (yes to any of above refer patient to schedulers for dietitian appointment) ) Does patient have any new or increased numbness or tingling of extremities? No Is patient interested in fertility information? No Does patient need any prescription refills? No Does patient have an advanced directive in place? Yes, copies are in Epic Electronically Signed By: Pancho Vazquez MA CNPN Observed: 11/09/2024 12:00 AM Status: COMPLETED Source: [facility] Telephone (DERMST) RAYA VAZQUEZ ([id number]) 1940 M Date Time Provider Department 11/09/24 CORRIE NGUYEN During your visit today, we recorded the following information about you: Corrie Nguyen PA-C 11/09/2024 6:05 PM Signed FINAL DIAGNOSIS A. Skin, right breast, shave biopsy: - Inflamed seborrheic keratosis. B. Skin, left upper back, shave biopsy: - Melanoma, see comment and synoptic report. SDB/DOLORES/mm/11/08/2024 Diagnosis Comment B. Histologic sections demonstrate a broad and asymmetric compound melanocytic proliferation on heavily sun-damaged skin. The junctional melanocytes are arranged in rare small nests and predominantly as single cells along the dermal-epidermal junction with confluence and upward migration of individual melanocytes. The junctional melanocytes are epithelioid with abundant pale eosinophilic cytoplasm, enlarged nuclei with irregular nuclear contours and variably prominent nucleoli. The dermal melanocytes are arranged in small to medium-sized nests, cords and single cells, lacking appropriate maturation with descent. The dermal melanocytes are epithelioid with moderate amount of pale eosinophilic cytoplasm, round to ovoid nuclei and mostly conspicuous nucleoli. Dermal mitotic figures are not appreciated. To further characterize the lesion, immunohistochemical stains are performed and compared to appropriate controls. The SOX10 stain highlights atypical melanocytes with confluence and focal upward migration of individual melanocytes. The PRAME stain is positive. Overall, the histologic features are those of melanoma. Please see synoptic report for complete characterization. This case was also reviewed by Dr. Gracia Silva of the Dermatopathology service who concur with the rendered diagnosis. Laboratory Developed Test (LDT) Disclaimer: Performance characteristics of immunohistochemical, immunofluorescent and chromogenic in-situ hybridization tests have been determined by the performing laboratory within [facility] Pathology and Laboratory Medicine Department ([facility], [facility], [facility], [facility], [facility], [facility], or [facility]) in a manner consistent with CLIA requirements. One or more of these tests have not been cleared or approved by the FDA. [facility] is regulated under CLIA as qualified to perform high-complexity testing. These tests are used for clinical purposes. They should not be regarded as investigational or for research. Positive and negative controls stain appropriately. Block for additional Biomarkers/Molecular studies B1 Synoptic Report INVASIVE MELANOMA OF THE SKIN: Biopsy 8th Edition - Protocol posted: 11/10/2023MELANOMA OF THE SKIN: BIOPSY - All Specimens SPECIMEN Procedure Biopsy, shave Specimen Laterality Left TUMOR Tumor Site Skin of trunk: Upper back Histologic Type Nevoid melanoma Maximum Tumor (Breslow) Thickness (Millimeters) 1.2 mm Ulceration Not identified Anatomic (Perfecto) Level IV (melanoma invades reticular dermis) Mitotic Rate None identified Microsatellite(s) Not identified Lymphatic and / or Vascular Invasion Not identified Neurotropism Not identified Tumor-Infiltrating Lymphocytes Not identified Tumor Regression Present MARGINS Margin Status for Invasive Melanoma Invasive melanoma present at margin Margin(s) Involved by Invasive Melanoma Deep Margin Status for Melanoma In Situ All margins negative for melanoma in situ pTMN CLASSIFICATION (AJCC 8th Edition) Reporting of pT category is based on information available to the pathologist at the time the report is issued. As per the AJCC (Chapter 1, 8th Ed.) it is the managing physician?s responsibility to establish the final pathologic stage based upon all pertinent information, including but potentially not limited to this pathology report. pT Category pT2a . Recommended treatment: WLE + SLNBx Size: 0.6 x 0.8 cm Follow up full body skin check in 3 months Thank you, PATRICIA Montez Kristian, PA-C 11/09/2024 6:05 PM Signed [facility]ulw[facility] Ackerman RN 11/13/2024 10:20 AM Signed Reached out to general surgery nurse director of medicare and Lucero zarate to establish an appointment with Dr. Roberson for a surgical consult for a WLE and SLNB. Patient did discuss the results with the referring provider. Allergies As of Date: 11/09/2024 Noted Allergy Reaction GLUTEN 04/11/2021 14 - Other: See Comments LACTOSE 04/11/2021 8 - GI Upset Date Reviewed: 11/02/2024 Reviewed by: Alton Tarango LPN - Fully Assessed Reason for Visit: Results [95] Melanoma [924] Prescriptions as of 11/13/2024 - cetirizine (ZYRTEC) 10 mg tablet Take 1 tablet by mouth once daily. - tamsulosin (FLOMAX) 0.4 mg Take 2 capsules by mouth once daily. - clobetasol (TEMOVATE) 0.05 % ointment Apply to affected area twice daily as needed. Use 5 days per week. Not for face, armpits or groin - montelukast (SINGULAIR) 10 mg tablet Take 1 tablet by mouth daily at bedtime. - albuterol HFA (PROVENTIL HFA, VENTOLIN HFA) 90 mcg/actuation inhaler Inhale 2 Puffs as instructed every 4 hours as needed for wheezing/shortness of breath. - triamcinolone acetonide (KENALOG) 0.1 % ointment Apply to affected area twice daily as needed. Use for up to a week on stinging/burning areas of the face. DO NOT USE FOR MORE THAN ONE WEEK - clopidogrel (PLAVIX) 75 mg tablet Take 75 mg by mouth once daily. - triamcinolone acetonide (KENALOG) 0.1 % ointment Apply to affected area twice daily as needed. Apply to affected area twice daily as needed. - folic acid 1 mg tablet Take 1 mg by mouth once daily. - sulfaSALAzine (AZULFIDINE) 500 mg tablet Take 500 mg by mouth four times daily. - TRULICITY 0.75 mg/0.5 mL pen injector - metFORMIN ER (GLUCOPHAGE XR) 500 mg 24 hr tablet - mupirocin (BACTROBAN) 2 % ointment Apply to affected area three times daily. - BRILINTA 90 mg tablet - isosorbide mononitrate ER (IMDUR) 30 mg 24 hr tablet - atorvastatin (LIPITOR) 40 mg tablet - vit C/E/zinc ox/radha/lut/zeax (ICAPS AREDS2 ORAL) Take by mouth. - Vitamin E, dl, acetate, (VITAMIN E) 400 unit capsule Take 400 Units by mouth once daily. - vit A,C,P-Iztw-Fgwpar (PRESERVISION AREDS) 7,160 unit- 113 mg-100 unit tab - amlodipine besylate (AMLODIPINE ORAL) Take 5 mg by mouth two times a day. - valsartan (DIOVAN) 320 mg tablet Take 160 mg by mouth once daily. - hydroCHLOROthiazide (HYDRODIURIL, ESIDRIX) 25 mg tablet Take 25 mg by mouth every other day. - metoprolol succinate ER (TOPROL XL) 25 mg 24 hr tablet Take 100 mg by mouth once daily. - cholecalciferol, vitamin D3, 4,000 unit cap Take 1 capsule by mouth daily - aspirin(ECOTRIN LOW STRENGTH 81 MG TAB) Take one (1) tablet every other day Facility-Administered Medications as of 11/13/2024 - Aminolevulinic Acid HCl 20 % soln 1 Each Problem List As Of Date 11/09/2024 Noted Resolved DIARRHEA NOS [R19.7] 11/13/2008 ABDOMINAL PAIN UNSPEC SITE [R10.9] 11/13/2008 LOSS OF WEIGHT [R63.4] 11/13/2008 BPH with obstruction/lower urinary tract sympto*01/27/2019 Urinary frequency [R35.0] 05/26/2019 Weak urinary stream [R39.12] 05/26/2019 Nocturia [R35.1] 05/26/2019 Obesity, Class I, BMI 30-34.9 [E66.811] 09/28/2019 Incomplete bladder emptying [R33.9] 09/28/2019 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 Acute cystitis with hematuria [N30.01] 04/09/2023 OAB (overactive bladder) [N32.81] 04/09/2023 NO SHOW 06/04/2024 Encounter Status:Closed by KULWINDER JOHNSTON on 11/13/24 SURGICAL PATHOLOGY Collected: 1:45 PM Status: F Source: [facility] Order Comment: Specimen Type : TISSUE SPECIMEN Ordering Facility: [facility] Address: [address] [place] [address] TYPE CODE TESTS RESULT OUT OF RANGE REFERENCE UNITS PATHOLOGY [id number] CASE REPORT Result Comment: Surgical Pat hology Report Case: [id number] Authorizing Provider: Corrie Nguyen PA-C Collected: 11/02/2024 01:45 PM Ordering Location: Dermatology Received: 11/02/2024 04:30 PM Pathologist: Celestino García MD Specimens: A) - Skin, Right Breast B) - Skin, Left Upper Back PATHOLOGY [id number] FINAL DIAGNOSIS Result Comment: A. Skin, rig ht breast, shave biopsy: - Inflamed seborrheic keratosis. B. Skin, left upper back, shave biopsy: - Melanoma, see comment and synoptic report. SDB/LX/mm/11/08/2024 OLOGY [id number] DIAGNOSIS COMMENT Result Comment: B. Histologi c sections demonstrate a broad and asymmetric compound melanocytic proliferation on heavily sun-damaged skin. The junctional melanocytes are arranged in rare small nests and predominantly as single cells along the dermal-epidermal junction with confluence and upward migration of individual melanocytes. The junctional melanocytes are epithelioid with abundant pale eosinophilic cytoplasm, enlarged nuclei with irregular nuclear contours and variably prominent nucleoli. The dermal melanocytes are arranged in small to medium-sized nests, cords and single cells, lacking appropriate maturation with descent. The dermal melanocytes are epithelioid with moderate amount of pale eosinophilic cytoplasm, round to ovoid nuclei and mostly conspicuous nucleoli. Dermal mitotic figures are not appreciated. To further characterize the lesion, immunohistochemical stains are performed and compared to appropriate controls. The SOX10 stain highlights atypical melanocytes with confluence and focal upward migration of individual melanocytes. The PRAME stain is positive. Overall, the histologic features are those of melanoma. Please see synoptic report for complete characterization. This case was also reviewed by Dr. Gracia Silva of the Dermatopathology service who concur with the rendered diagnosis. Laboratory Developed Test (LDT) Disclaimer: Performance characteristics of immunohistochemical, immunofluorescent and chromogenic in-situ hybridization tests have been determined by the performing laboratory within [facility]???s [facility] Pathology and Laboratory Medicine Department ([facility], [facility], [facility], [facility], [facility], [facility], or [facility]) in a manner consistent with CLIA requirements. One or more of these tests have not been cleared or approved by the FDA. [facility] is regulated under CLIA as qualified to perform high-complexity testing. These tests are used for clinical purposes. They should not be regarded as investigational or for research. Positive and negative controls stain appropriately. PATHOLOGY [id number] BLOCK FOR ADDITIONAL BIOMARKERS/MOL ECULAR STUDIES B1 PATHOLOGY [id number] SYNOPTIC REPORT Result Comment: INVASIVE LILIAN ANOMA OF THE SKIN: Biopsy MELANOMA OF THE SKIN: BIOPSY - All Specimens 8th Edition - Protocol posted: 11/10/2023 SPECIMEN Procedure: Biopsy, shave Specimen Laterality: Left TUMOR Tumor Site: Skin of trunk: Upper back Histologic Type: Nevoid melanoma Maximum Tumor (Breslow) Thickness (Millimeters): 1.2 mm Ulceration: Not identified Anatomic (Perfecto) Level: IV (melanoma invades reticular dermis) Mitotic Rate: None identified Microsatellite(s): Not identified Lymphatic and / or Vascular Invasion: Not identified Neurotropism: Not identified Tumor-Infiltrating Lymphocytes: Not identified Tumor Regression: Present MARGINS Margin Status for Invasive Melanoma: Invasive melanoma present at margin Margin(s) Involved by Invasive Melanoma: Deep Margin Status for Melanoma In Situ: All margins negative for melanoma in situ pTMN CLASSIFICATION (AJCC 8th Edition) Reporting of pT category is based on information available to the pathologist at the time the report is issued. As per the AJCC (Chapter 1, 8th Ed.) it is the managing physician???s responsibility to establish the final pathologic stage based upon all pertinent information, including but potentially not limited to this pathology report. pT Category: pT2a PATHOLOGY [id number] GROSS DESCRIPTION A. Skin Result Comment: Received in formalin is a 1.5 x 0.9 x 0.4 cm shave of skin. On the skin surface there is a 1.0 cm kaur-yellow to kaur-white slightly elevated rough area. The specimen is trisected. Totally submitted in two cassettes. B. Skin Received in formalin is a 1.1 x 0.8 x 0.1 cm shave of skin. On the skin surface there is a 0.6 cm brown to kaur-brown minimally elevated area. The specimen is bisected. Totally submitted in one cassette. JCDM November 02, 2024 10:06 PM [place] [address] PATHOLOGY [facility]FORM[facility] Result Comment: Diagnostic i nterpretation performed at [place] [address] CLIA# [id number] Manager Portable: Calixto Kraft M.D. Performed By: #### S #### [facility] CLIA [id number] [address] [place] [address] OF MARIA GUADALUPE CNOV Observed: 11/02/2024 1:20 PM Status: COMPLETED Source: [facility] Office Visit (DERMST) RAYA VAZQUEZ ([id number]) 1940 M Date Time Provider Department 11/02/24 1:20 PM CORRIE NGUYEN During your visit today, we recorded the following information about you: Linda Bear MA 11/02/2024 1:47 PM Addendum SKIN CARE AFTER CRYOSURGERY The skin's response to cryosurgery (freezing) can be mild to severe, depending on the depth of the freeze and location of the area treated. You may have minimal redness and swelling with little discomfort or significant discoloration and blistering with considerable discomfort. A burning sensation in the skin may last from several minutes to several hours after the procedure. Follow these instructions when caring for an area treated by cryosurgery: 1. Please clean the area every day with gentle soap and water. It is not necessary to cover the site with a bandage. However, it may be used for protection and it must be changed daily. Do not leave a soiled or wet bandage on the wound. 2. If you are experiencing discomfort you may use a cool compress, elevate the area or take over the counter pain relievers. 3. Apply Vaseline or Aquaphor daily to the site. This can help with itching, irritation, and discomfort. -The lesion may take 2-4 weeks to fully resolve. Depending on the severity of treatment and lesion treated, it may take longer. -DO NOT USE NEOSPORIN OR BACITRACIN as there is a fairly high incidence of allergic response to these products. -You may experience some mild discomfort, redness, swelling, and/or a clear discharge from the wound after your procedure. Severe pain, worsening swelling, and foul-smelling discharge from the site are NOT to be expected. If you have concerns about how your wounds are healing, please send your provider a [employer]ol message or call . CARE FOR YOUR SHAVE BIOPSY SITE Please follow these instructions for daily wound care: 1. Wash the area every day with gentle soap and water. 2. Apply a thin layer of Vaseline or Aquaphor to the wound site to keep the area slightly ?greasy? at all time (this helps to prevent scabbing). Please do not use an old tub of ointment as this can introduce germs into your wound and cause infection. 3. Cover with a bandage and continue this daily process until the wound is healed. Do not leave a soiled or wet bandage on the wound. -Keep the area clean and dry with the bandage in place the day of surgery. -If you experience any bleeding, please apply pressure to the area for approximately 10 minutes. -You may shower, but do not soak in a bathtub, hot tub, pool, melton, etc until after the wound has healed. -DO NOT USE NEOSPORIN OR BACITRACIN as there is a fairly high incidence of allergic response to these products. -You may experience some mild discomfort, redness, swelling, and/or a clear discharge from the wound after your procedure. Severe pain, worsening swelling, and foul-smelling discharge from the site are NOT to be expected. If you have concerns about how your wounds are healing, please send your provider a [employer] message or call . GENERAL SUN SAFETY Thank you for allowing me to examine you for signs of skin cancer today. We had an opportunity to discuss my findings and any treatments I recommended. I believe that there are several steps that a person can do to help prevent skin cancers and to detect them at an early, treatable stage: 1. I highly recommend that once a month you perform your own complete skin check looking for changing or unusual spots. Use a wall-mounted mirror and a hand mirror to assist in seeing body areas that are difficult to see otherwise. If you have a family member that can assist, this is often helpful. Additional information can be obtained at: www.skincancer.org/zqvt-gldthr-zbiojskzizo/early-detection 2. In many cases, skin cancer can be prevented. The best way to protect yourself is to avoid too much sun and sunburns. Health care providers believe that ultraviolet rays (UV rays) from the sun damage the skin and over time lead to skin cancer. Here are ways to protect yourself: -Don't spend long periods of time in direct sunlight. -Wear hats with brims to protect your face and ears. -Wear long-sleeved shirts and pants to protect your arms and legs. -Use broad spectrum sunscreens with a SPF (skin protection factor) of 30 or higher that protect against burning and tanning rays. Apply the lotion 30 minutes before you go outside. (Broad-spectrum sunscreens protect against UV-B and UV-A rays.) -Wear sunglasses to protect your eyes. -Use a lip balm with sunscreen. -Avoid the sun between 10am and 4pm. -Show any changing mole to your health care provider. Corrie Nguyen PA-C 11/02/2024 2:08 PM Signed ESTABLISHED PATIENT 11/02/2024 Last Visit in Dermatology: 07/14/2024 with José Sheikh APRN.CNP Chief Complaint: Full Body Skin Check HPI: Raya Vazquez is a 84 year old male. 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 History of atypical nevi: Yes, Hypertrophic Actinic Keratosis History of blistering sunburns / tanning bed use: Yes, sunburns Organ transplant / Immunosuppression: No Pacemaker / Defibrillator / Heart Valve Replacement: No / : N/A Family history of skin cancer: Yes, PAST MEDICAL HISTORY Diagnosis Date Essential hypertension, benign Unspecified asthma(493.90) Unspecified sleep apnea Social History Tobacco Use Smoking status: Never Smokeless tobacco: Never ALLERGIES Allergen Reactions Gluten Other: See Comments Lactose GI Upset Current Outpatient Medications Medication Sig cetirizine (ZYRTEC) 10 mg tablet Take 1 tablet by mouth once daily. tamsulosin (FLOMAX) 0.4 mg Take 2 capsules by mouth once daily. clobetasol (TEMOVATE) 0.05 % ointment Apply to affected area twice daily as needed. Use 5 days per week. Not for face, armpits or groin montelukast (SINGULAIR) 10 mg tablet Take 1 tablet by mouth daily at bedtime. TRULICITY 0.75 mg/0.5 mL pen injector metFORMIN ER (GLUCOPHAGE XR) 500 mg 24 hr tablet isosorbide mononitrate ER (IMDUR) 30 mg 24 hr tablet atorvastatin (LIPITOR) 40 mg tablet vit C/E/zinc ox/radha/lut/zeax (ICAPS AREDS2 ORAL) Take by mouth. Vitamin E, dl, acetate, (VITAMIN E) 400 unit capsule Take 400 Units by mouth once daily. vit A,C,P-Yvhu-Uwpnfv (PRESERVISION AREDS) 7,160 unit- 113 mg-100 unit tab amlodipine besylate (AMLODIPINE ORAL) Take 5 mg by mouth two times a day. valsartan (DIOVAN) 320 mg tablet Take 160 mg by mouth once daily. hydroCHLOROthiazide (HYDRODIURIL, ESIDRIX) 25 mg tablet Take 25 mg by mouth every other day. metoprolol succinate ER (TOPROL XL) 25 mg 24 hr tablet Take 100 mg by mouth once daily. cholecalciferol, vitamin D3, 4,000 unit cap Take 1 capsule by mouth daily aspirin(ECOTRIN LOW STRENGTH 81 MG TAB) Take one (1) tablet every other day albuterol HFA (PROVENTIL HFA, VENTOLIN HFA) 90 mcg/actuation inhaler Inhale 2 Puffs as instructed every 4 hours as needed for wheezing/shortness of breath. (Patient not taking: Reported on 04/07/2024) triamcinolone acetonide (KENALOG) 0.1 % ointment Apply to affected area twice daily as needed. Use for up to a week on stinging/burning areas of the face. DO NOT USE FOR MORE THAN ONE WEEK (Patient not taking: Reported on 01/04/2024) clopidogrel (PLAVIX) 75 mg tablet Take 75 mg by mouth once daily. triamcinolone acetonide (KENALOG) 0.1 % ointment Apply to affected area twice daily as needed. Apply to affected area twice daily as needed. (Patient not taking: Reported on 04/07/2024) folic acid 1 mg tablet Take 1 mg by mouth once daily. sulfaSALAzine (AZULFIDINE) 500 mg tablet Take 500 mg by mouth four times daily. mupirocin (BACTROBAN) 2 % ointment Apply to affected area three times daily. (Patient not taking: Reported on 02/11/2024) BRILINTA 90 mg tablet ROS: Skin as above. PHYSICAL EXAM: The sensitive examination was discussed with the Patient or Patient's Authorized Spool Cleaner. As applicable, any other physician, advance practice provider, medical student, or other health professional student that will be observing or involved in the sensitive examination for educational or training purposes was discussed with the Patient or Authorized Spool Cleaner. The Patient or Authorized Spool Cleaner has agreed to proceed with the sensitive examination. (Sensitive examination includes inspection and/or palpation of the breasts, pelvis, prostate and anorectal regions) Jasso Skin Type: II The patient is a pleasant male in no apparent distress. Alert and oriented x 3. Appears well developed, well nourished, and in otherwise good health. A skin exam of the (full body) scalp, face, ears, neck, chest, abdomen, back, bilateral upper extremities, bilateral lower extremities, buttocks, hands, feet, and nails was performed. Underwear was kept on per patient preference, excluding genitalia. IMPRESSION Scar (s) without evidence of recurrence Left Cheek (4), Left Forearm - Posterior, Left Superior [place] (2), Neck - Posterior, Right Cheek, Right Forearm - Posterior (2), Right Superior [place] (2), Right Moravian (5) Erythematous papule(s) with gritty scale Right Breast 1.0 x 0.6 cm erythematous verrucous papule R/O ISK Left Upper Back 0.6 x 0.8 cm pink-brown papule R/O ATN vs other Multiple symmetric kaur to brown macules with uniform pigmentation, and scattered pink papules with flaccid epidermis, widely distributed throughout Densely scattered light kaur macules and small patches on all sun exposed areas Smooth deleon red papules scattered throughout trunk Stuck-on verrucous, variably pigmented papules and plaques throughout trunk and extremities ASSESSMENT AND PLAN History of nonmelanoma skin cancer No evidence of recurrence on exam. Continued monitoring. Regular skin exams discussed given increased risk of subsequent cutaneous malignancies. Actinic keratosis -Discussed etiology and possibility of AK transformation to SCC. -Discussed treatment options and the risks and benefits of each including LN2, field treatment with 5-fluorouracil (efudex), and photodynamic therapy; patient opts for field treatment with 5-fluorouracil. -Pt opts for Cryosurgery of pre-malignant lesion(s) today in office CRYOTHERAPY SKIN LESION - Left Cheek (4), Left Forearm - Posterior, Left Superior [place] (2), Neck - Posterior, Right Cheek, Right Forearm - Posterior (2), Right Superior [place] (2), Right Moravian (5) Complexity: simple Destruction method: cryotherapy Informed consent: discussed and consent obtained Timeout: patient name, date of , surgical site, and procedure verified Lesion destroyed using liquid nitrogen: Yes Cryotherapy cycles: 2 Outcome: patient tolerated procedure well with no complications Post-procedure details: wound care instructions given Neoplasm of unspecified behavior of bone, soft tissue, and skin (2) Right Breast SKIN / NAIL BIOPSY Type of biopsy: tangential Informed consent: discussed and consent obtained Timeout: patient name, date of , surgical site, and procedure verified Procedure prep: Patient was prepped and draped in usual sterile fashion Prep type: Isopropyl alcohol Anesthesia: the lesion was anesthetized in a standard fashion Anesthetic: 1% lidocaine w/ epinephrine 1-100,000 local infiltration Instrument used: DermaBlade Outcome: patient tolerated procedure well Post-procedure details: sterile dressing applied and wound care instructions given Dressing type: bandage and petrolatum Specimen A - Surgical Pathology Left Upper Back SKIN / NAIL BIOPSY Type of biopsy: tangential Informed consent: discussed and consent obtained Timeout: patient name, date of , surgical site, and procedure verified Procedure prep: Patient was prepped and draped in usual sterile fashion Prep type: Isopropyl alcohol Anesthesia: the lesion was anesthetized in a standard fashion Anesthetic: 1% lidocaine w/ epinephrine 1-100,000 local infiltration Instrument used: DermaBlade Outcome: patient tolerated procedure well Post-procedure details: sterile dressing applied and wound care instructions given Dressing type: bandage and petrolatum Specimen B - Surgical Pathology Skin exam, screening for skin cancer Advised sun protection with broad-spectrum SPF 30+, wide brim hats, sun glasses, and protective clothing. Continue regular skin checks as discussed. Observe for changing, symptomatic, or new skin lesions and return to dermatology if any lesions of concern are noted. Solar lentigines, Multiple benign nevi, Seborrheic Keratoses Educated on benign nature. Observational course, monitor for changes. May consider intervention if bothersome. Deleon angiomas Educated on benign nature. Observational course, monitor for changes. May consider intervention if bothersome. Procedure: shave Informed Consent Consent Obtained: Verbal [place] Protocol A moment to CARE was completed SIGN IN Personnel directly involved with the procedure wore the appropriate PPE Special Equipment: N/A Patient/Surrogate Stated/Verified: Patient name, Date of , Relevant allergies and Intended procedure TIME OUT Intended patient and procedure match the source document(s) No relevant labs, photos, and/or imaging studies were applicable for review. Correct side/site marked and visible. Medications required for procedure verified. Fire risk assessed and interventions discussed. No implant(s) inserted. SIGN OUT All instruments, equipment, possible retained foreign bodies accounted for. Post-procedure follow-up management communicated and Plan of Care Visit completed when applicable Follow Up: 6 month skin check Return PRN or sooner for questions and concerns. Attestation: Intake completed by: Alton Tarango LPN The documentation for this note was completed by Linda Bear MA acting as scribe for Corrie Nguyen PA-C on November 02, 2024 at 1:03 PM I agree with the Chief Complaint, ROS, and Past Histories independently gathered by the clinical administrative support clerk and the remaining scribed note accurately describes my personal service to the patient. Corrie Nguyen PA-C November 02, 2024 2:08 PM Medical Decision Making: Problems: Moderate: 1+ chronic illnesses with change Risk: Moderate: Moderate risk from testing/treatment Medical Decision Making Level: 4 - Moderate Allergies As of Date: 11/02/2024 Noted Allergy Reaction GLUTEN 04/11/2021 14 - Other: See Comments LACTOSE 04/11/2021 8 - GI Upset Date Reviewed: 11/02/2024 Reviewed by: Alton Tarango LPN - Fully Assessed Reason for Visit: Full Body Skin Check [1445] Primary Visit Diagnosis:Skin exam, screening for cancer [Z12.83] Other Visit Diagnoses:Multiple benign nevi [D22.9] Lentigines [L81.4] 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 - tamsulosin (FLOMAX) 0.4 mg Take 2 capsules by mouth once daily. - clobetasol (TEMOVATE) 0.05 % ointment Apply to affected area twice daily as needed. Use 5 days per week. Not for face, armpits or groin - montelukast (SINGULAIR) 10 mg tablet Take 1 tablet by mouth daily at bedtime. - albuterol HFA (PROVENTIL HFA, VENTOLIN HFA) 90 mcg/actuation inhaler Inhale 2 Puffs as instructed every 4 hours as needed for wheezing/shortness of breath. - triamcinolone acetonide (KENALOG) 0.1 % ointment Apply to affected area twice daily as needed. Use for up to a week on stinging/burning areas of the face. DO NOT USE FOR MORE THAN ONE WEEK - clopidogrel (PLAVIX) 75 mg tablet Take 75 mg by mouth once daily. - triamcinolone acetonide (KENALOG) 0.1 % ointment Apply to affected area twice daily as needed. Apply to affected area twice daily as needed. - folic acid 1 mg tablet Take 1 mg by mouth once daily. - sulfaSALAzine (AZULFIDINE) 500 mg tablet Take 500 mg by mouth four times daily. - TRULICITY 0.75 mg/0.5 mL pen injector - metFORMIN ER (GLUCOPHAGE XR) 500 mg 24 hr tablet - mupirocin (BACTROBAN) 2 % ointment Apply to affected area three times daily. - BRILINTA 90 mg tablet - isosorbide mononitrate ER (IMDUR) 30 mg 24 hr tablet - atorvastatin (LIPITOR) 40 mg tablet - vit C/E/zinc ox/radha/lut/zeax (ICAPS AREDS2 ORAL) Take by mouth. - Vitamin E, dl, acetate, (VITAMIN E) 400 unit capsule Take 400 Units by mouth once daily. - vit A,C,I-Loge-Lxqukb (PRESERVISION AREDS) 7,160 unit- 113 mg-100 unit tab - amlodipine besylate (AMLODIPINE ORAL) Take 5 mg by mouth two times a day. - valsartan (DIOVAN) 320 mg tablet Take 160 mg by mouth once daily. - hydroCHLOROthiazide (HYDRODIURIL, ESIDRIX) 25 mg tablet Take 25 mg by mouth every other day. - metoprolol succinate ER (TOPROL XL) 25 mg 24 hr tablet Take 100 mg by mouth once daily. 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 You may have minimal redness and swelling with little discomfort or significant discoloration and blistering with considerable discomfort. A burning sensation in the skin may last from several minutes to several hours after the procedure. Follow these instructions when caring for an area treated by cryosurgery: 1. Please clean the area every day with gentle soap and water. It is not necessary to cover the site with a bandage. However, it may be used for protection and it must be changed daily. Do not leave a soiled or wet bandage on the wound. 2. If you are experiencing discomfort you may use a cool compress, elevate the area or take over the counter pain relievers. 3. Apply Vaseline or Aquaphor daily to the site. This can help with itching, irritation, and discomfort. -The lesion may take 2-4 weeks to fully resolve. Depending on the severity of treatment and lesion treated, it may take longer. -DO NOT USE NEOSPORIN OR BACITRACIN as there is a fairly high incidence of allergic response to these products. -You may experience some mild discomfort, redness, swelling, and/or a clear discharge from the wound after your procedure. Severe pain, worsening swelling, and foul-smelling discharge from the site are NOT to be expected. If you have concerns about how your wounds are healing, please send your provider a [place] message or call . CARE FOR YOUR SHAVE BIOPSY SITE Please follow these instructions for daily wound care: 1. Wash the area every day with gentle soap and water. 2. Apply a thin layer of Vaseline or Aquaphor to the wound site to keep the area slightly ?greasy? at all time (this helps to prevent scabbing). Please do not use an old tub of ointment as this can introduce germs into your wound and cause infection. 3. Cover with a bandage and continue this daily process until the wound is healed. Do not leave a soiled or wet bandage on the wound. -Keep the area clean and dry with the bandage in place the day of surgery. -If you experience any bleeding, please apply pressure to the area for approximately 10 minutes. -You may shower, but do not soak in a bathtub, hot tub, pool, melton, etc until after the wound has healed. -DO NOT USE NEOSPORIN OR BACITRACIN as there is a fairly high incidence of allergic response to these products. -You may experience some mild discomfort, redness, swelling, and/or a clear discharge from the wound after your procedure. Severe pain, worsening swelling, and foul-smelling discharge from the site are NOT to be expected. If you have concerns about how your wounds are healing, please send your provider a [employer] message or call . [employer] Thank you for allowing me to examine you for signs of skin cancer today. We had an opportunity to discuss my findings and any treatments I recommended. I believe that there are several steps that a person can do to help prevent skin cancers and to detect them at an early, treatable stage: 1. I highly recommend that once a month you perform your own complete skin check looking for changing or unusual spots. Use a wall-mounted mirror and a hand mirror to assist in seeing body areas that are difficult to see otherwise. If you have a family member that can assist, this is often helpful. Additional information can be obtained at: www.skincancer.org/bebi-dtcktm-wujxlbrixpx/early-detection 2. In many cases, skin cancer can be prevented. The best way to protect yourself is to avoid too much sun and sunburns. Health care providers believe that ultraviolet rays (UV rays) from the sun damage the skin and over time lead to skin cancer. Here are ways to protect yourself: -Don't spend long periods of time in direct sunlight. -Wear hats with brims to protect your face and ears. -Wear long-sleeved shirts and pants to protect your arms and legs. -Use broad spectrum sunscreens with a SPF (skin protection factor) of 30 or higher that protect against burning and tanning rays. Apply the lotion 30 minutes before you go outside. (Broad-spectrum sunscreens protect against UV-B and UV-A rays.) -Wear sunglasses to protect your eyes. -Use a lip balm with sunscreen. -Avoid the sun between 10am and 4pm. -Show any changing mole to your health care provider. Disposition: Return in about 6 months (around 05/03/2025) for skin check. Follow-up and Disposition History for Encounter Date Provider Department Center 11/02/2024 [id number] NGUYEN [facility] Encounter Status:Closed by CORRIE NGUYEN on 11/02/24 PROGRESS Observed: 11/02/2024 1:20 PM Status: COMPLETED Source: [facility] HNO ID: [id number] Author: CORRIE NGUYEN PA-C Service: ? Author Type: Physician Picker/Puller Type: Progress Notes Filed: 11/02/2024 14:08 Note Text: ESTABLISHED PATIENT 11/02/2024 Last Visit in Dermatology: 07/14/2024 with José Sheikh APRN.CNP Chief Complaint: Full Body Skin Check HPI: Raya Vazquez is a 84 year old male. 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 History of atypical nevi: Yes, Hypertrophic Actinic Keratosis History of blistering sunburns / tanning bed use: Yes, sunburns Organ transplant / Immunosuppression: No Pacemaker / Defibrillator / Heart Valve Replacement: No / : N/A Family history of skin cancer: Yes, PAST MEDICAL HISTORY Diagnosis Date Essential hypertension, benign Unspecified asthma(493.90) Unspecified sleep apnea Social History Tobacco Use Smoking status: Never Smokeless tobacco: Never ALLERGIES Allergen Reactions Gluten Other: See Comments Lactose GI Upset Current Outpatient Medications Medication Sig cetirizine (ZYRTEC) 10 mg tablet Take 1 tablet by mouth once daily. tamsulosin (FLOMAX) 0.4 mg Take 2 capsules by mouth once daily. clobetasol (TEMOVATE) 0.05 % ointment Apply to affected area twice daily as needed. Use 5 days per week. Not for face, armpits or groin montelukast (SINGULAIR) 10 mg tablet Take 1 tablet by mouth daily at bedtime. TRULICITY 0.75 mg/0.5 mL pen injector metFORMIN ER (GLUCOPHAGE XR) 500 mg 24 hr tablet isosorbide mononitrate ER (IMDUR) 30 mg 24 hr tablet atorvastatin (LIPITOR) 40 mg tablet vit C/E/zinc ox/radha/lut/zeax (ICAPS AREDS2 ORAL) Take by mouth. Vitamin E, dl, acetate, (VITAMIN E) 400 unit capsule Take 400 Units by mouth once daily. vit A,C,R-Dlgd-Eroxsu (PRESERVISION AREDS) 7,160 unit- 113 mg-100 unit tab amlodipine besylate (AMLODIPINE ORAL) Take 5 mg by mouth two times a day. valsartan (DIOVAN) 320 mg tablet Take 160 mg by mouth once daily. hydroCHLOROthiazide (HYDRODIURIL, ESIDRIX) 25 mg tablet Take 25 mg by mouth every other day. metoprolol succinate ER (TOPROL XL) 25 mg 24 hr tablet Take 100 mg by mouth once daily. cholecalciferol, vitamin D3, 4,000 unit cap Take 1 capsule by mouth daily aspirin(ECOTRIN LOW STRENGTH 81 MG TAB) Take one (1) tablet every other day albuterol HFA (PROVENTIL HFA, VENTOLIN HFA) 90 mcg/actuation inhaler Inhale 2 Puffs as instructed every 4 hours as needed for wheezing/shortness of breath. (Patient not taking: Reported on 04/07/2024) triamcinolone acetonide (KENALOG) 0.1 % ointment Apply to affected area twice daily as needed. Use for up to a week on stinging/burning areas of the face. DO NOT USE FOR MORE THAN ONE WEEK (Patient not taking: Reported on 01/04/2024) clopidogrel (PLAVIX) 75 mg tablet Take 75 mg by mouth once daily. triamcinolone acetonide (KENALOG) 0.1 % ointment Apply to affected area twice daily as needed. Apply to affected area twice daily as needed. (Patient not taking: Reported on 04/07/2024) folic acid 1 mg tablet Take 1 mg by mouth once daily. sulfaSALAzine (AZULFIDINE) 500 mg tablet Take 500 mg by mouth four times daily. mupirocin (BACTROBAN) 2 % ointment Apply to affected area three times daily. (Patient not taking: Reported on 02/11/2024) BRILINTA 90 mg tablet ROS: Skin as above. PHYSICAL EXAM: The sensitive examination was discussed with the Patient or Patient's Authorized Spool Cleaner. As applicable, any other physician, advance practice provider, medical student, or other health professional student that will be observing or involved in the sensitive examination for educational or training purposes was discussed with the Patient or Authorized Spool Cleaner. The Patient or Authorized Spool Cleaner has agreed to proceed with the sensitive examination. (Sensitive examination includes inspection and/or palpation of the breasts, pelvis, prostate and anorectal regions) [place] Skin Type: II The patient is a pleasant male in no apparent distress. Alert and oriented x 3. Appears well developed, well nourished, and in otherwise good health. A skin exam of the (full body) scalp, face, ears, neck, chest, abdomen, back, bilateral upper extremities, bilateral lower extremities, buttocks, hands, feet, and nails was performed. Underwear was kept on per patient preference, excluding genitalia. IMPRESSION Scar (s) without evidence of recurrence Left Cheek (4), Left Forearm - Posterior, Left Superior [place] (2), Neck - Posterior, Right Cheek, Right Forearm - Posterior (2), Right Superior [place] (2), Right Moravian (5) Erythematous papule(s) with gritty scale Right Breast 1.0 x 0.6 cm erythematous verrucous papule R/O ISK Left Upper Back 0.6 x 0.8 cm pink-brown papule R/O ATN vs other Multiple symmetric kaur to brown macules with uniform pigmentation, and scattered pink papules with flaccid epidermis, widely distributed throughout Densely scattered light kaur macules and small patches on all sun exposed areas Smooth deleon red papules scattered throughout trunk Stuck-on verrucous, variably pigmented papules and plaques throughout trunk and extremities ASSESSMENT AND PLAN History of nonmelanoma skin cancer No evidence of recurrence on exam. Continued monitoring. Regular skin exams discussed given increased risk of subsequent cutaneous malignancies. Actinic keratosis -Discussed etiology and possibility of AK transformation to SCC. -Discussed treatment options and the risks and benefits of each including LN2, field treatment with 5-fluorouracil (efudex), and photodynamic therapy; patient opts for field treatment with 5-fluorouracil. -Pt opts for Cryosurgery of pre-malignant lesion(s) today in office CRYOTHERAPY SKIN LESION - Left Cheek (4), Left Forearm - Posterior, Left Superior [place] (2), Neck - Posterior, Right Cheek, Right Forearm - Posterior (2), Right Superior [place] (2), Right Moravian (5) Complexity: simple Destruction method: cryotherapy Informed consent: discussed and consent obtained Timeout: patient name, date of , surgical site, and procedure verified Lesion destroyed using liquid nitrogen: Yes Cryotherapy cycles: 2 Outcome: patient tolerated procedure well with no complications Post-procedure details: wound care instructions given Neoplasm of unspecified behavior of bone, soft tissue, and skin (2) Right Breast SKIN / NAIL BIOPSY Type of biopsy: tangential Informed consent: discussed and consent obtained Timeout: patient name, date of , surgical site, and procedure verified Procedure prep: Patient was prepped and draped in usual sterile fashion Prep type: Isopropyl alcohol Anesthesia: the lesion was anesthetized in a standard fashion Anesthetic: 1% lidocaine w/ epinephrine 1-100,000 local infiltration Instrument used: DermaBlade Outcome: patient tolerated procedure well Post-procedure details: sterile dressing applied and wound care instructions given Dressing type: bandage and petrolatum Specimen A - Surgical Pathology Left Upper Back SKIN / NAIL BIOPSY Type of biopsy: tangential Informed consent: discussed and consent obtained Timeout: patient name, date of , surgical site, and procedure verified Procedure prep: Patient was prepped and draped in usual sterile fashion Prep type: Isopropyl alcohol Anesthesia: the lesion was anesthetized in a standard fashion Anesthetic: 1% lidocaine w/ epinephrine 1-100,000 local infiltration Instrument used: DermaBlade Outcome: patient tolerated procedure well Post-procedure details: sterile dressing applied and wound care instructions given Dressing type: bandage and petrolatum Specimen B - Surgical Pathology Skin exam, screening for skin cancer Advised sun protection with broad-spectrum SPF 30+, wide brim hats, sun glasses, and protective clothing. Continue regular skin checks as discussed. Observe for changing, symptomatic, or new skin lesions and return to dermatology if any lesions of concern are noted. Solar lentigines, Multiple benign nevi, Seborrheic Keratoses Educated on benign nature. Observational course, monitor for changes. May consider intervention if bothersome. Deleon angiomas Educated on benign nature. Observational course, monitor for changes. May consider intervention if bothersome. Procedure: shave Informed Consent Consent Obtained: Verbal [place] Protocol A moment to CARE was completed SIGN IN Personnel directly involved with the procedure wore the appropriate PPE Special Equipment: N/A Patient/Surrogate Stated/Verified: Patient name, Date of , Relevant allergies and Intended procedure TIME OUT Intended patient and procedure match the source document(s) No relevant labs, photos, and/or imaging studies were applicable for review. Correct side/site marked and visible. Medications required for procedure verified. Fire risk assessed and interventions discussed. No implant(s) inserted. SIGN OUT All instruments, equipment, possible retained foreign bodies accounted for. Post-procedure follow-up management communicated and Plan of Care Visit completed when applicable Follow Up: 6 month skin check Return PRN or sooner for questions and concerns. Attestation: Intake completed by: Alton Tarango LPN The documentation for this note was completed by Linda Bear MA acting as scribe for Corrie Nguyen PA-C on November 02, 2024 at 1:03 PM I agree with the Chief Complaint, ROS, and Past Histories independently gathered by the clinical administrative support clerk and the remaining scribed note accurately describes my personal service to the patient. Corrie Nguyen PA-C November 02, 2024 2:08 PM Medical Decision Making: Problems: Moderate: 1+ chronic illnesses with change Risk: Moderate: Moderate risk from testing/treatment Medical Decision Making Level: 4 - Moderate CNPN Observed: 10/17/2024 12:00 AM Status: COMPLETED Source: [facility] Telephone (DERMST) RAYA VAZQUEZ ([id number]) 1940 M Date Time Provider Department 10/17/24 JOSÉ SHEIKH During your visit today, we recorded the following information about you: Ghazal Jorge 10/17/2024 9:09 AM Signed Attempt #1 - LVM Attempt#2 - MC Two attempts made on 10/17/24 to inform patient that their 10/17/24 appt with José Sheikh , has been cancelled/rescheduled. Special Instructions: NA Allergies As of Date: 10/17/2024 Noted Allergy Reaction GLUTEN 04/11/2021 14 - Other: See Comments LACTOSE 04/11/2021 8 - GI Upset Date Reviewed: 10/10/2024 Reviewed by: Tito Maldonado MA - Fully Assessed Reason for Visit: Appointment Cancelled [1023] Cmt: 10/17/24 - Provider OUT Prescriptions as of 10/17/2024 - tamsulosin (FLOMAX) 0.4 mg Take 2 capsules by mouth once daily. - cetirizine (ZYRTEC) 10 mg tablet take 1 tablet by mouth once daily. - clobetasol (TEMOVATE) 0.05 % ointment Apply to affected area twice daily as needed. Use 5 days per week. Not for face, armpits or groin - montelukast (SINGULAIR) 10 mg tablet Take 1 tablet by mouth daily at bedtime. - albuterol HFA (PROVENTIL HFA, VENTOLIN HFA) 90 mcg/actuation inhaler Inhale 2 Puffs as instructed every 4 hours as needed for wheezing/shortness of breath. - triamcinolone acetonide (KENALOG) 0.1 % ointment Apply to affected area twice daily as needed. Use for up to a week on stinging/burning areas of the face. DO NOT USE FOR MORE THAN ONE WEEK - clopidogrel (PLAVIX) 75 mg tablet Take 75 mg by mouth once daily. - triamcinolone acetonide (KENALOG) 0.1 % ointment Apply to affected area twice daily as needed. Apply to affected area twice daily as needed. - folic acid 1 mg tablet Take 1 mg by mouth once daily. - sulfaSALAzine (AZULFIDINE) 500 mg tablet Take 500 mg by mouth four times daily. - TRULICITY 0.75 mg/0.5 mL pen injector - metFORMIN ER (GLUCOPHAGE XR) 500 mg 24 hr tablet - mupirocin (BACTROBAN) 2 % ointment Apply to affected area three times daily. - BRILINTA 90 mg tablet - isosorbide mononitrate ER (IMDUR) 30 mg 24 hr tablet - atorvastatin (LIPITOR) 40 mg tablet - vit C/E/zinc ox/radha/lut/zeax (ICAPS AREDS2 ORAL) Take by mouth. - Vitamin E, dl, acetate, (VITAMIN E) 400 unit capsule Take 400 Units by mouth once daily. - vit A,C,J-Ijwx-Wlzrnw (PRESERVISION AREDS) 7,160 unit- 113 mg-100 unit tab - amlodipine besylate (AMLODIPINE ORAL) Take 5 mg by mouth two times a day. - valsartan (DIOVAN) 320 mg tablet Take 160 mg by mouth once daily. - hydroCHLOROthiazide (HYDRODIURIL, ESIDRIX) 25 mg tablet Take 25 mg by mouth every other day. - metoprolol succinate ER (TOPROL XL) 25 mg 24 hr tablet Take 100 mg by mouth once daily. - cholecalciferol, vitamin D3, 4,000 unit cap Take 1 capsule by mouth daily - aspirin(ECOTRIN LOW STRENGTH 81 MG TAB) Take one (1) tablet every other day Facility-Administered Medications as of 10/17/2024 - Aminolevulinic Acid HCl 20 % soln 1 Each Problem List As Of Date 10/17/2024 Noted Resolved DIARRHEA NOS [R19.7] 11/13/2008 ABDOMINAL PAIN UNSPEC SITE [R10.9] 11/13/2008 LOSS OF WEIGHT [R63.4] 11/13/2008 BPH with obstruction/lower urinary tract sympto*01/27/2019 Urinary frequency [R35.0] 05/26/2019 Weak urinary stream [R39.12] 05/26/2019 Nocturia [R35.1] 05/26/2019 Obesity, Class I, BMI 30-34.9 [E66.811] 09/28/2019 Incomplete bladder emptying [R33.9] 09/28/2019 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 Acute cystitis with hematuria [N30.01] 04/09/2023 OAB (overactive bladder) [N32.81] 04/09/2023 NO SHOW 06/04/2024 Encounter Status:Closed by GHAZAL JORGE on 10/17/24 CNOV Observed: 10/10/2024 8:30 AM Status: COMPLETED Source: [facility] Office Visit (UROLIN) RAYA VAZQUEZ ([id number]) 1940 M Date Time Provider Department 10/10/24 8:30 AM HORTENCIA VIRAMONTES During your visit today, we recorded the following information about you: Hortencia Viramontes PA-C 10/10/2024 8:42 AM Addendum CHIEF COMPLAINT: follow up for BPH with LUTS HPI: 84 y/o male here for follow up for BPH with LUTS. He is s/p XPS done on 06/27/2019. He c/o NTF-4, urgency, frequency, weak stream. He is on flomax 0.4mg with some effect. Previous AUA: 24, QOL: 2, PVR: 78, 84, 0, 0. PVR: 115 (after surgery), 359 prior to surgery. He drinks 1 12 oz of coffee. He is on a diuretics. He has crohn's disease He is diabetic AUA Symptom Score Incomplete emptyin Frequency: 4 Intermittency: 3 Urgency: 4 Weak Stream: 4 Strainin Nocturia: 4 Total score: 24 Quality of life due to urinary symptoms: unhappy QOL: 5 PVR: 82 ml He has ED. He is not active Scrotal US done on 07/20/2024 IMPRESSION: Left varicocele. Bilateral incidental epididymal head cysts. Bilateral prominent rete testes. Mild heterogeneity of the right testicle, without discrete mass. In the area of palpable abnormality in the left scrotum, no sonographic evidence of abnormality. This area overlies normal epididymis body and tail Normal arterial and venous flow within both testes. MEDICAL HISTORY: PAST MEDICAL HISTORY Diagnosis Date Essential hypertension, benign Unspecified asthma(493.90) Unspecified sleep apnea SURGICAL HISTORY: PAST SURGICAL HISTORY Procedure Laterality Date CHOLECYSTOSTOMY PRQ W/IMAGING AND CATHETER PLMT CYSTOURETHROSCOPY 05/26/2019 Cystoscopy/TRUS -Dr. Felipe EXC/DSTRJ LINGUAL TONSIL ANY METHOD SPX EXCISION LIP LESION 05/24/2020 PAST SURGICAL HISTORY OF external fix of Lt frature XCAPSL CTRC RMVL INSJ IO LENS PROSTH W/O ECP rt eye SOCIAL HISTORY: Social History Tobacco Use Smoking status: Never Smokeless tobacco: Never FAMILY HISTORY Denies a FH of CaP MEDS: Current Outpatient Medications Medication Sig Dispense Refill cetirizine (ZYRTEC) 10 mg tablet take 1 tablet by mouth once daily. 90 tablet 0 tamsulosin (FLOMAX) 0.4 mg Take 1 capsule by mouth once daily. 90 capsule 3 clobetasol (TEMOVATE) 0.05 % ointment Apply to affected area twice daily as needed. Use 5 days per week. Not for face, armpits or groin 30 g 1 montelukast (SINGULAIR) 10 mg tablet Take 1 tablet by mouth daily at bedtime. 90 tablet 1 TRULICITY 0.75 mg/0.5 mL pen injector metFORMIN ER (GLUCOPHAGE XR) 500 mg 24 hr tablet isosorbide mononitrate ER (IMDUR) 30 mg 24 hr tablet atorvastatin (LIPITOR) 40 mg tablet vit C/E/zinc ox/radha/lut/zeax (ICAPS AREDS2 ORAL) Take by mouth. Vitamin E, dl, acetate, (VITAMIN E) 400 unit capsule Take 400 Units by mouth once daily. vit A,C,U-Oryo-Qgurnj (PRESERVISION AREDS) 7,160 unit- 113 mg-100 unit tab amlodipine besylate (AMLODIPINE ORAL) Take 5 mg by mouth two times a day. valsartan (DIOVAN) 320 mg tablet Take 160 mg by mouth once daily. hydroCHLOROthiazide (HYDRODIURIL, ESIDRIX) 25 mg tablet Take 25 mg by mouth every other day. metoprolol succinate ER (TOPROL XL) 25 mg 24 hr tablet Take 100 mg by mouth once daily. cholecalciferol, vitamin D3, 4,000 unit cap Take 1 capsule by mouth daily aspirin(ECOTRIN LOW STRENGTH 81 MG TAB) Take one (1) tablet every other day 0 albuterol HFA (PROVENTIL HFA, VENTOLIN HFA) 90 mcg/actuation inhaler Inhale 2 Puffs as instructed every 4 hours as needed for wheezing/shortness of breath. (Patient not taking: Reported on 04/07/2024) 8 g 0 triamcinolone acetonide (KENALOG) 0.1 % ointment Apply to affected area twice daily as needed. Use for up to a week on stinging/burning areas of the face. DO NOT USE FOR MORE THAN ONE WEEK (Patient not taking: Reported on 01/04/2024) 80 g 0 clopidogrel (PLAVIX) 75 mg tablet Take 75 mg by mouth once daily. triamcinolone acetonide (KENALOG) 0.1 % ointment Apply to affected area twice daily as needed. Apply to affected area twice daily as needed. (Patient not taking: Reported on 04/07/2024) 453.6 g 1 folic acid 1 mg tablet Take 1 mg by mouth once daily. sulfaSALAzine (AZULFIDINE) 500 mg tablet Take 500 mg by mouth four times daily. mupirocin (BACTROBAN) 2 % ointment Apply to affected area three times daily. (Patient not taking: Reported on 02/11/2024) 30 g 0 BRILINTA 90 mg tablet Current Facility-Administered Medications Medication Dose Route Frequency Provider Last Rate Last Admin Aminolevulinic Acid HCl 20 % soln 1 Each 1 Each TOPICAL As Directed Corrie Nguyen PA-C 2 Each at 05/10/24 1321 REVIEW OF SYSTEMS GENERAL: No weight loss, fatigue, or fevers. HEENT: Negative for frequent or significant headaches, No changes in hearing or vision, no nose bleeds or other nasal problems. NECK: Negative for lumps, pain and significant neck swelling RESPIRATORY: cough CARDIOVASCULAR: Negative for chest pain, leg swelling and palpitations : see above MUSCULOSKELETAL: Negative for joint pain or swelling, back pain, and muscle pain. SKIN: Negative for lesions, rash, and itching. PSYCH: Negative for sleep disturbance, mood disorder and recent psychosocial stressors. HEMATOLOGY/LYMPHOLOGY Negative for prolonged bleeding, bruising easily. ENDOCRINE: Negative for cold or heat intolerance, polydipsia. NEURO: Negative for syncope, seizures and paralysis PHYSICAL EXAM: GENERAL:Wnl nutrition, no deformities, healthy appearing HEAD AND NECK: No masses, icterus. RESP: NL effort, no retractions or purse-lip breathing. ABDOMEN: No masses, tenderness, organomegaly. SKIN: No rash or lesions NEURO: A/Ox3 PSYCH: Nl mood, with no signs of depression, anxiety, or agitation. EXTREMITIES: Extremities normal. No deformities, edema GENITOURINARY: MALE EXAM: Not indicated DATA/OR LABS TO BE REVIEWED: (Simple=1 data point; Complex= 2 or more) No results found for: PSA Creatinine (mg/dL) Date Value 06/16/2019 1.02 03/09/2019 1.00 01/24/2009 0.80 Hematocrit (%) Date Value 06/16/2019 47.1 01/24/2009 45.5 No results found for: TESTOST MEDICAL DECISION MAKING: IMPRESSION: (Diagnostic Possibilities) New or Established 1) BPH 2) LUTS 3) ED PLAN: (Management Options) Increase flomax 0.8mg Follow up in 3 months Hortencia Viramontes PA-C Referring Provider: SELF [[id number]] Allergies As of Date: 10/10/2024 Noted Allergy Reaction GLUTEN 04/11/2021 14 - Other: See Comments LACTOSE 04/11/2021 8 - GI Upset Date Reviewed: 10/10/2024 Reviewed by: Tito Maldonado MA - Fully Assessed Reason for Visit: Established Patient [175] Primary Visit Diagnosis:BPH associated with nocturia [N40.1, R35.1] Other Visit Diagnoses:Urinary frequency [R35.0] Urgency of urination [R39.15] Slowing of urinary stream [R39.198] Impotence [N52.9] Order(s):UA DIP, URINE (POC) [[id number]] Order #: [id number]. #:[id number] [id number] SEDIMENT B/O [[id number]] Order #: [id number] tamsulosin (FLOMAX) 0.4 mgTake 2 capsules by mouth once daily.Disp: 180 capsuleRfl: 3 Prescriptions as of 10/10/2024 - tamsulosin (FLOMAX) 0.4 mg Take 2 capsules by mouth once daily. - cetirizine (ZYRTEC) 10 mg tablet take 1 tablet by mouth once daily. - clobetasol (TEMOVATE) 0.05 % ointment Apply to affected area twice daily as needed. Use 5 days per week. Not for face, armpits or groin - montelukast (SINGULAIR) 10 mg tablet Take 1 tablet by mouth daily at bedtime. - albuterol HFA (PROVENTIL HFA, VENTOLIN HFA) 90 mcg/actuation inhaler Inhale 2 Puffs as instructed every 4 hours as needed for wheezing/shortness of breath. - triamcinolone acetonide (KENALOG) 0.1 % ointment Apply to affected area twice daily as needed. Use for up to a week on stinging/burning areas of the face. DO NOT USE FOR MORE THAN ONE WEEK - clopidogrel (PLAVIX) 75 mg tablet Take 75 mg by mouth once daily. - triamcinolone acetonide (KENALOG) 0.1 % ointment Apply to affected area twice daily as needed. Apply to affected area twice daily as needed. - folic acid 1 mg tablet Take 1 mg by mouth once daily. - sulfaSALAzine (AZULFIDINE) 500 mg tablet Take 500 mg by mouth four times daily. - TRULICITY 0.75 mg/0.5 mL pen injector - metFORMIN ER (GLUCOPHAGE XR) 500 mg 24 hr tablet - mupirocin (BACTROBAN) 2 % ointment Apply to affected area three times daily. - BRILINTA 90 mg tablet - isosorbide mononitrate ER (IMDUR) 30 mg 24 hr tablet - atorvastatin (LIPITOR) 40 mg tablet - vit C/E/zinc ox/radha/lut/zeax (ICAPS AREDS2 ORAL) Take by mouth. - Vitamin E, dl, acetate, (VITAMIN E) 400 unit capsule Take 400 Units by mouth once daily. - vit A,C,S-Renh-Vrcuap (PRESERVISION AREDS) 7,160 unit- 113 mg-100 unit tab - amlodipine besylate (AMLODIPINE ORAL) Take 5 mg by mouth two times a day. - valsartan (DIOVAN) 320 mg tablet Take 160 mg by mouth once daily. - hydroCHLOROthiazide (HYDRODIURIL, ESIDRIX) 25 mg tablet Take 25 mg by mouth every other day. - metoprolol succinate ER (TOPROL XL) 25 mg 24 hr tablet Take 100 mg by mouth once daily. - cholecalciferol, vitamin D3, 4,000 unit cap Take 1 capsule by mouth daily - aspirin(ECOTRIN LOW STRENGTH 81 MG TAB) Take one (1) tablet every other day Facility-Administered Medications as of 10/10/2024 - Aminolevulinic Acid HCl 20 % soln 1 Each Problem List As Of Date 10/10/2024 Noted Resolved DIARRHEA NOS [R19.7] 11/13/2008 ABDOMINAL PAIN UNSPEC SITE [R10.9] 11/13/2008 LOSS OF WEIGHT [R63.4] 11/13/2008 BPH with obstruction/lower urinary tract sympto*01/27/2019 Urinary frequency [R35.0] 05/26/2019 Weak urinary stream [R39.12] 05/26/2019 Nocturia [R35.1] 05/26/2019 Obesity, Class I, BMI 30-34.9 [E66.811] 09/28/2019 Incomplete bladder emptying [R33.9] 09/28/2019 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 Medications Discontinued During This Encounter Prescriptions - tamsulosin (FLOMAX) 0.4 mg (Discontinued) Take 1 capsule by mouth once daily. Encounter Status:Closed by HORTENCIA VIRAMONTES on 10/10/24 PROGRESS Observed: 10/10/2024 8:17 AM Status: COMPLETED Source: [facility] ID: [id number] Author: HORTENCIA VIRAMONTES PA-C Service: ? Author Type: Physician Picker/Puller Type: Progress Notes Filed: 10/10/2024 08:42 Note Text: CHIEF COMPLAINT: follow up for BPH with LUTS HPI: 84 y/o male here for follow up for BPH with LUTS. He is s/p XPS done on 06/27/2019. He c/o NTF-4, urgency, frequency, weak stream. He is on flomax 0.4mg with some effect. Previous AUA: 24, QOL: 2, PVR: 78, 84, 0, 0. PVR: 115 (after surgery), 359 prior to surgery. He drinks 1 12 oz of coffee. He is on a diuretics. He has crohn's disease He is diabetic AUA Symptom Score Incomplete emptyin Frequency: 4 Intermittency: 3 Urgency: 4 Weak Stream: 4 Strainin Nocturia: 4 Total score: 24 Quality of life due to urinary symptoms: unhappy QOL: 5 PVR: 82 ml He has ED. He is not active Scrotal US done on 07/20/2024 IMPRESSION: Left varicocele. Bilateral incidental epididymal head cysts. Bilateral prominent rete testes. Mild heterogeneity of the right testicle, without discrete mass. In the area of palpable abnormality in the left scrotum, no sonographic evidence of abnormality. This area overlies normal epididymis body and tail Normal arterial and venous flow within both testes. MEDICAL HISTORY: PAST MEDICAL HISTORY Diagnosis Date Essential hypertension, benign Unspecified asthma(493.90) Unspecified sleep apnea SURGICAL HISTORY: PAST SURGICAL HISTORY Procedure Laterality Date CHOLECYSTOSTOMY PRQ W/IMAGING AND CATHETER PLMT CYSTOURETHROSCOPY 05/26/2019 Cystoscopy/TRUS -Dr. Felipe EXC/DSTRJ LINGUAL TONSIL ANY METHOD SPX EXCISION LIP LESION 05/24/2020 PAST SURGICAL HISTORY OF external fix of Lt frature XCAPSL CTRC RMVL INSJ IO LENS PROSTH W/O ECP rt eye SOCIAL HISTORY: Social History Tobacco Use Smoking status: Never Smokeless tobacco: Never FAMILY HISTORY Denies a FH of CaP MEDS: Current Outpatient Medications Medication Sig Dispense Refill cetirizine (ZYRTEC) 10 mg tablet take 1 tablet by mouth once daily. 90 tablet 0 tamsulosin (FLOMAX) 0.4 mg Take 1 capsule by mouth once daily. 90 capsule 3 clobetasol (TEMOVATE) 0.05 % ointment Apply to affected area twice daily as needed. Use 5 days per week. Not for face, armpits or groin 30 g 1 montelukast (SINGULAIR) 10 mg tablet Take 1 tablet by mouth daily at bedtime. 90 tablet 1 TRULICITY 0.75 mg/0.5 mL pen injector metFORMIN ER (GLUCOPHAGE XR) 500 mg 24 hr tablet isosorbide mononitrate ER (IMDUR) 30 mg 24 hr tablet atorvastatin (LIPITOR) 40 mg tablet vit C/E/zinc ox/radha/lut/zeax (ICAPS AREDS2 ORAL) Take by mouth. Vitamin E, dl, acetate, (VITAMIN E) 400 unit capsule Take 400 Units by mouth once daily. vit A,C,N-Fgro-Gmznnu (PRESERVISION AREDS) 7,160 unit- 113 mg-100 unit tab amlodipine besylate (AMLODIPINE ORAL) Take 5 mg by mouth two times a day. valsartan (DIOVAN) 320 mg tablet Take 160 mg by mouth once daily. hydroCHLOROthiazide (HYDRODIURIL, ESIDRIX) 25 mg tablet Take 25 mg by mouth every other day. metoprolol succinate ER (TOPROL XL) 25 mg 24 hr tablet Take 100 mg by mouth once daily. cholecalciferol, vitamin D3, 4,000 unit cap Take 1 capsule by mouth daily aspirin(ECOTRIN LOW STRENGTH 81 MG TAB) Take one (1) tablet every other day 0 albuterol HFA (PROVENTIL HFA, VENTOLIN HFA) 90 mcg/actuation inhaler Inhale 2 Puffs as instructed every 4 hours as needed for wheezing/shortness of breath. (Patient not taking: Reported on 04/07/2024) 8 g 0 triamcinolone acetonide (KENALOG) 0.1 % ointment Apply to affected area twice daily as needed. Use for up to a week on stinging/burning areas of the face. DO NOT USE FOR MORE THAN ONE WEEK (Patient not taking: Reported on 01/04/2024) 80 g 0 clopidogrel (PLAVIX) 75 mg tablet Take 75 mg by mouth once daily. triamcinolone acetonide (KENALOG) 0.1 % ointment Apply to affected area twice daily as needed. Apply to affected area twice daily as needed. (Patient not taking: Reported on 04/07/2024) 453.6 g 1 folic acid 1 mg tablet Take 1 mg by mouth once daily. sulfaSALAzine (AZULFIDINE) 500 mg tablet Take 500 mg by mouth four times daily. mupirocin (BACTROBAN) 2 % ointment Apply to affected area three times daily. (Patient not taking: Reported on 02/11/2024) 30 g 0 BRILINTA 90 mg tablet Current Facility-Administered Medications Medication Dose Route Frequency Provider Last Rate Last Admin Aminolevulinic Acid HCl 20 % soln 1 Each 1 Each TOPICAL As Directed Corrie Nguyen PA-C 2 Each at 05/10/24 1321 REVIEW OF SYSTEMS GENERAL: No weight loss, fatigue, or fevers. HEENT: Negative for frequent or significant headaches, No changes in hearing or vision, no nose bleeds or other nasal problems. NECK: Negative for lumps, pain and significant neck swelling RESPIRATORY: cough CARDIOVASCULAR: Negative for chest pain, leg swelling and palpitations : see above MUSCULOSKELETAL: Negative for joint pain or swelling, back pain, and muscle pain. SKIN: Negative for lesions, rash, and itching. PSYCH: Negative for sleep disturbance, mood disorder and recent psychosocial stressors. HEMATOLOGY/LYMPHOLOGY Negative for prolonged bleeding, bruising easily. ENDOCRINE: Negative for cold or heat intolerance, polydipsia. NEURO: Negative for syncope, seizures and paralysis PHYSICAL EXAM: GENERAL:Wnl nutrition, no deformities, healthy appearing HEAD AND NECK: No masses, icterus. RESP: NL effort, no retractions or purse-lip breathing. ABDOMEN: No masses, tenderness, organomegaly. SKIN: No rash or lesions NEURO: A/Ox3 PSYCH: Nl mood, with no signs of depression, anxiety, or agitation. EXTREMITIES: Extremities normal. No deformities, edema GENITOURINARY: MALE EXAM: Not indicated DATA/OR LABS TO BE REVIEWED: (Simple=1 data point; Complex= 2 or more) No results found for: PSA Creatinine (mg/dL) Date Value 06/16/2019 1.02 03/09/2019 1.00 01/24/2009 0.80 Hematocrit (%) Date Value 06/16/2019 47.1 01/24/2009 45.5 No results found for: TESTOST MEDICAL DECISION MAKING: IMPRESSION: (Diagnostic Possibilities) New or Established 1) BPH 2) LUTS 3) ED PLAN: (Management Options) Increase flomax 0.8mg Follow up in 3 months Hortencia Viramontes PA-C ALLERGIES DATE TYPE / CODE NAME / CODE REACTION SEVERITY SOURCE 04/11/2021 DRUG INGREDI/[id number]( SNOMED CT) GLUTEN OTHER: SEE C [facility] 04/11/2021 DRUG INGREDI/[id number]( SNOMED CT) LACTOSE GI UPSET [facility] ENCOUNTERS ADMIT/DISCHARGE ACCOUNT NUMBER ADMITTING ENCOUNTER CLASS LOCATION SOURCE 08/02/2025/08/02/20 [id number] Ambulatory [facility] Hospital[facility] ing:STDE [facility] 07/05/2025/07/06/20 [id number] Ambulatory [facility] HospitalBuild ing:GENM4 [facility] 06/14/2025 [id number] Ambulatory [facility] HospitalBuild ing:WORG [facility] 06/14/2025/06/14/20 [id number] Ambulatory [facility] HospitalBuild ing:WOUCA [facility] 05/10/2025/05/10/20 [id number] Ambulatory [facility] HospitalBuild ing:STDE [facility] 04/12/2025/04/12/20 [id number] Ambulatory [facility] ing:STDE [facility] 03/06/2025/03/06/20 [id number] Ambulatory [facility] HospitalBuild ing:INUR [facility] 03/01/2025/03/01/20 [id number] Ambulatory [facility] HospitalBuild ing:STDE [facility] 02/23/2025/02/24/20 [id number] Ambulatory [facility] HospitalBuild ing:WOL2 [facility] 02/01/2025/02/02/20 [id number] Ambulatory [facility] HospitalBuild ing:STDE [facility] 12/21/2024/12/21/19 [id number] Ambulatory [facility] HospitalBuild ing:GENM4 [facility] 11/27/2024 [id number] JOSE RAMON ROBERSON Ambulatory [facility] HospitalBuild ing:J300Nqvx: [facility]002Bed: A060-02 [facility] 11/16/2024/11/17/20 24 [id number] [facility] HospitalBuild ing:GENM4 [facility] 11/02/2024/11/02/20 24 [id number] Ambulatory [facility] HospitalBuild ing:STDE [facility] 10/10/2024/10/10/20 24 [id number] Ambulatory [facility] HospitalBuild ing:INUR [facility] PAYERS ENCOUNTER GUARANTOR PAYER SUBSCRIBER SOURCE 08/02/2025 Primary Insuranc e:MEDICARE A AND BPolicy Number: [id number] Date:9558-03-15Auml Name:Sada RAYA HELENE: [id number] [address] [address] [facility] 08/02/2025 Secondary Insura nce:MMO MEDICARE SUPPLEMENTPolicy Number: [id number] Date:0619-52-67Rlyb Name:Liz DOS SANTOS HELENE: [id number] [id number] [place] [address] 07/05/2025 Primary Insuranc e:MEDICARE A AND BPolicy Number: [id number] Date:9660-77-75Yhky Name:Sada NARAYAN: [id number] [facility] [address] [place] [id number] [place] [address] 07/05/2025 Secondary Insura nce:MMO MEDICARE SUPPLEMENTPolicy Number: [id number] Date:1841-15-40Jbac Name:Liz NARAYAN: [id number] [id number] [place] [address] 06/14/2025 Primary Insuranc e:MEDICARE A AND BPolicy Number: [id number] Date:3812-21-89Inws Name:Sada NARAYAN: [id number] [id number] [place] [address] 06/14/2025 Secondary Insura nce:MMO MEDICARE SUPPLEMENTPolicy Number: [id number] Date:6128-69-43Rguv Name:Liz NARAYAN: [id number] [id number] [place] [address] 06/14/2025 Primary Insuranc e:MEDICARE A AND BPolicy Number: [id number] Date:9500-78-01Bukq Name:Sada NARAYAN: [id number] [facility] [address] [place] [id number] [place] [address] 06/14/2025 Secondary Insura nce:MMO MEDICARE SUPPLEMENTPolicy Number: [id number] Date:0345-47-78Hdwc Name:Liz NARAYAN: [id number] [facility] [address] [place] [id number] [place] [address] 05/10/2025 Primary Insuranc e:MEDICARE A AND BPolicy Number: [id number] Date:7369-56-82Npot Name:Sada NARAYAN: [id number] [facility] [address] [place] [address] [facility] 05/10/2025 Secondary Insura nce:MMO MEDICARE SUPPLEMENTPolicy Number: [id number] Date:8011-29-31Aazy Name:Liz NARAYAN: [id number] [facility] [address] [place] [id number] [place] [address] 04/12/2025 Primary Insuranc e:MEDICARE A AND BPolicy Number: [id number] Date:0057-30-11Cdkh Name:Sada NARAYAN: [id number] [address] [place] [id number] [place] [address] 04/12/2025 Secondary Insura nce:[facility] MEDICARE SUPPLEMENTPolicy Number: [id number] Date:1001-02-86Osax Name:Liz NARAYAN: [id number] [address] [place] [phone] [place] [address] 03/06/2025 Primary Insuranc e:MEDICARE A AND BPolicy Number: [id number] Date:0862-56-84Jguk Name:Sada NARAYAN: [id number] [facility] [address] [place] [address] [facility] 03/06/2025 Secondary Insura nce:MMO MEDICARE SUPPLEMENTPolicy Number: [id number] Date:6811-03-07Hhdx Name:Liz NARAYAN: [id number] [address] [place] [id number] [place] [address] 03/01/2025 Primary Insuranc e:MEDICARE A AND BPolicy Number: [id number] Date:1965-25-42Wcsf Name:Sada NARAYAN: [id number] [facility] [address] [place] [address] [facility] 03/01/2025 Secondary Insura nce:MMO MEDICARE SUPPLEMENTPolicy Number: [id number] Date:2554-68-15Wvwd Name:Liz NARAYAN: [id number] [address] [place] [address] [facility] 02/23/2025 Primary Insuranc e:MEDICARE A AND BPolicy Number: [id number] Date:0934-89-42Mjzq Name:Sada NARAYAN: [id number] [facility] [address] [place] [id number] [place] [address] 02/23/2025 Secondary Insura nce:O MEDICARE SUPPLEMENTPolicy Number: [id number] Date:8046-87-76Zxfe Name:Liz NARAYAN: [id number] [facility] [address] [place] [id number] [place] [address] 02/01/2025 Primary Insuranc e:MEDICARE A AND BPolicy Number: [id number] Date:8561-01-87Hhmh Name:Sada NARAYAN: [id number] [facility] [address] [place] [id number] [place] [address] 02/01/2025 Secondary Insura nce:O MEDICARE SUPPLEMENTPolicy Number: [id number] Date:6395-81-62Suou Name:Liz NARAYAN: [id number] [address] [place] [id number] [place] [address] 12/21/2024 Primary Insuranc e:MEDICARE A AND BPolicy Number: [id number] Date:1685-45-88Kxii Name:Sada NARAYAN: [id number] [address] [place] [id number] [place] [address] 12/21/2024 Secondary Insura nce:MMO MEDICARE SUPPLEMENTPolicy Number: [id number] Date:4478-22-52Nqlk Name:Liz NARAYAN: [id number] [address] [place] [address] [facility] 11/27/2024 Primary Insuranc e:MEDICARE A AND BPolicy Number: [id number] Date:4233-28-98Sebn Name:Sada NARAYAN: [id number] [address] [place] [address] [facility] 11/27/2024 Secondary Insura nce:MMO MEDICARE SUPPLEMENTPolicy Number: [id number] Date:8119-74-61Fnnt Name:Liz NARAYAN: [id number] [facility] [address] [place] [id number] [place] [address] 11/16/2024 Primary Insuranc e:MEDICARE A AND BPolicy Number: [id number] Date:9187-26-42Rdya Name:Sada NARAYAN: [id number] [facility] [address] [place] [id number] [place] [address] 11/16/2024 Secondary Insura nce:MMO MEDICARE SUPPLEMENTPolicy Number: [id number] Date:8576-73-70Zceh Name:Liz NARAYAN: [id number] [address] [place] [address] [facility] 11/02/2024 Primary Insuranc e:MEDICARE A AND BPolicy Number: [id number] Date:5997-52-21Zzav Name:Sada NARAYAN: [id number] [address] [place] [address] [facility] 11/02/2024 Secondary Insura nce:MMO MEDICARE SUPPLEMENTPolicy Number: [id number] Date:6067-41-92Cmja Name:Liz NARAYAN: [id number] [address] [place] [address] [facility] 10/10/2024 Primary Insuranc e:MEDICARE A AND BPolicy Number: [id number] Date:5944-12-84Ggqe Name:Sada MORRISONSHANICE: [id number] [address] [address] [facility] 10/10/2024 Secondary Insura nce:MMO MEDICARE SUPPLEMENTPolicy Number: [id number] Date:0344-32-58Jdyn Name:Liz MORRISONSHANICE: [id number] [address] [address] [facility]
[2025-08-28] VITALS (8 sets, daily range): BP systolic 87–104; BP diastolic 56–73; PULSE 81–93; RESP 15–18; TEMP 36.2–36.6; O2SAT 96–100; BMI 35.8; BMI 35.7
--- NOTE | 2025-08-28 11:16 | EKG12_ITS ---
Test Reason : SOB Blood Pressure : */* mmHG Vent. Rate : 95 BPM Atrial Rate : * BPM P-R Int : * ms QRS Dur : 76 ms QT Int : 378 ms P-R-T Axes : * 13 151 degrees QTcB Int : 475 ms Atrial fibrillation Nonspecific T wave abnormality Abnormal ECG Confirmed by EDWIN MATHEWS, JERSEY ([id number]), manager editorial MALIK JAIME ([id number]) on 08/29/2025 9:09:21 AM Referred By: JENN/MONTRELL Confirmed By: JERSEY PINEDA MD
--- NOTE | 2025-08-28 11:28 | VDUE_ITS ---
Reason For Study Reason For Study: LUE swelling Left Proximal Left jugular vein is spontaneous, widely patent, phasic, with no intraluminal echogenicity noted. Left subclavian vein is spontaneous, widely patent, phasic, with no intraluminal echogenicity noted. Left Arm Left axillary vein is spontaneous, patent, phasic, competent, compressible and demonstrates augmentation. Left brachial vein is compressible. Left cephalic vein is compressible. Left basilic vein is compressible. Left Lower Arm Left radial vein is compressible. Left ulnar vein is compressible. VL/Venous Duplex US, Unilateral Interpretation Summary Deep veins of the left upper extremity are patent and compressible segmentally. There is no evidence of deep vein thrombosis. The superficial veins of the left upper extremity, the basilic and cephalic veins, are patent and compressible. There is no evidence of left upper extremity superficial thrombop hlebitis involving the veins imaged. Ordering Physician: Edward Farr Referring Physician: Jayesh Raphael Performed By: Elisa Astudillo, ADRIANO, RVT ???
--- NOTE | 2025-08-28 11:28 | EDS_ITS ---
HPI History of Present Illness Chief Complaint: Shortness of Breath Narrative Narrative: Chief complaint and HPI: 85-year-old male with past medical history of atrial fibrillation on Eliquis, DM2, HTN, CAD, CHF presents from TCU for ERYN and shortness of breath. History taken by patient, daughter, TCU nurse, and medical record. Patient was discharged from our hospital to the TCU on 08/23/2025. He is mated for a CHF exacerbation with pleural effusions and pericardial effusion. There was no tamponade. He received a thoracentesis and diuresed with IV Lasix. Daughter states since being in the TCU she feels that the patient has slowly declined. Patient endorses malaise and baseline shortness of breath since admission. States that shortness of breath has not worsened. States his left upper extremity has become swollen today. Speaking with the TCU nurse, patient was mostly sent to the emergency department due to his kidney function. It has worsened. She states he was supposed to receive a possible thoracentesis today however his Eliquis was not held and therefore it was not performed. Patient denies any fever, chills, chest pain, abdominal pain, nausea, vomiting, dysuria. Review of systems: See HPI Medications: As listed on the chart Allergies: As listed on the chart PFSH: Per chart Vital signs: As listed on the chart. Reviewed. Physical exam: Gen: A&O x3, NAD Head: Normocephalic, atraumatic Eyes: No sclera icterus, conjunctiva clear ENT: Dry mucous membranes Neck: Trachea midline CV: Regular rate, irregular rhythm, no murmurs, bilateral pitting peripheral edema from the feet to the knees, left upper extremity swollen from the hand to the elbow Resp: Lungs diminished in the bilateral bases, no wheezing, on 2 L nasal cannula GI: Abd soft, non-distended, non-tender, no r/r/g Musc: Moves all extremities, no deformity skin: Warm, dry Neuro: Alert, oriented, grossly intact, sensation intact Psych: Cooperative, appropriate mood and affect [facility] Medical History Atrial fibrillation Hyperlipidemia Skin cancer Pneumonia Heart disease Gastrointestinal problem Gall stones Cataract Bone fracture Allergies Type 2 diabetes mellitus Hypertension Celiac disease Anxiety Coronary artery disease Hypertension Atherosclerotic heart disease of [place] coronary artery without angina pectoris Home Medications ?Medication ?Instructions ?Recorded ?Last Taken ?Type aspirin 81 mg tablet,delayed 81 mg PO DAILY@0800 heart health 03/18/21 08/23/25 History release cholecalciferol (vitamin D3) 50 4,000 unit PO DAILY JOHN PPLEMENT 03/18/21 03/18/21 History mcg (2,000 unit) capsule vit C 250 mg-vit E 90 mg-zinc 40 1 cap PO BID EYE HEAL TH 03/18/21 03/18/21 Hi story mg-copper 1 [id number] capsule atorvastatin 40 mg tablet 40 mg PO QHS cholesterol #90 tabs 04/11/21 08/22/25 Rx isosorbide mononitrate 30 mg 30 mg PO DAILY BP #90 tab s 04/11/21 Unknown Rx tablet,extended release 24 hr vitamin E mixed 400 unit capsule 400 unit PO DAILY sup plement 02/16/22 Unknown History montelukast 10 mg tablet 10 mg PO QHS breathing 10/1908/22/25 History valsartan 320 mg tablet 320 mg PO DAILY BP 10/19/23 08/22/25 History tamsulosin 0.4 mg capsule 0.4 mg PO BID BPH 12/26/24 0 08/23/25 History famotidine 20 mg tablet 20 mg PO DAILY GERD #90 tabs 01/15/25 08/23/25 Rx dulaglutide 3 mg/0.5 mL 3 mg (0.5 mL) subcut QWEEK S OB #2 06/28/25 Unknown Rx subcutaneous pen injector mL (Trulicity) metformin 500 mg tablet,extended 500 mg PO DAILY Blood Glucose 06/28/25 Unknown History release 24 hr apixaban 5 mg tablet (Eliquis) 5 mg PO BID Blood thinn er #180 tabs 07/12/25 08/23/25 Rx amiodarone 200 mg tablet 200 mg PO DAILY BP #30 tabs 08/02/25 08/23/25 Rx metoprolol succinate 50 mg 50 mg PO DAILY BP #90 tabs 08/02/25 08/23/25 Rx tablet,extended release 24 hr diltiazem HCl 120 mg 120 mg PO QHS BP 08/17/25 Un known History capsule,extended release 24 hr furosemide 40 mg tablet (Lasix) 40 mg PO DAILY Fluid r etention #30 08/23/25 Unknown Rx tabs Allergy/AdvReac Type Severity Reaction Status Date / Time gluten AdvReac upset Verified 08/28/25 10:45 stomach/diarrhea lactose AdvReac upset Verified 08/28/25 10:45 stomach/diarrhea Family History Mother Thyroid disorder Father Myocardial infarction Hypertension Heart disease Surgical History Hx of melanoma excision History of cholecystectomy Presence of coronary angioplasty implant and graft (~04/03/21) Presence of stent in coronary artery (~04/03/21) Social History household members: none Smoking Status: Former smoker how long ago did patient quit smokin years ago alcohol intake: current alcohol intake frequency: holidays/special occasions only substance use type: does not use caffeine: Yes Type: coffee Number of servings: 2 and tea Number of servings: 1 what type of physical activity do you participate in: other details: cardio frequency: 3-4 times per week EXAM Physical Exam Const Vital Signs: 08/28/25 10:37 08/28/25 10:43 08/28/25 11:17 Temperature 97.2 F L Temperature Source Axillary Pulse Rate 93 Respiratory Rate Respiratory Effort Short of Breath Respiratory Depth Shallow Blood Pressure 104/68 Blood Pressure Mean 80 Pulse Ox 97 96 Oxygen Delivery Method Room Air Nasal Cannula Nasal Cannula Oxygen Flow Rate (L/min) 2 2 08/28/25 12:59 Temperature 97.7 F L Temperature Source Axillary Pulse Rate 81 Respiratory Rate 16 Respiratory Effort Respiratory Depth Blood Pressure 91/71 Blood Pressure Mean 77 Pulse Ox 97 Oxygen Delivery Method Nasal Cannula Oxygen Flow Rate (L/min) 2 MDM MDM MDM Narrative Medical decision making narrative: 85-year-old male with past medical history of atrial fibrillation on Eliquis, DM2, HTN, CAD, CHF presents from TCU for ERYN and shortness of breath. History taken by patient, daughter, TCU nurse, and medical record. Patient was discharged from our hospital to the TCU on 08/23/2025. I reviewed the discharge summary. He is admitted for a CHF exacerbation with pleural effusions and pericardial effusion. There was no tamponade. He received a thoracentesis and diuresed with IV Lasix. Patient endorses malaise and baseline shortness of breath since admission. States that shortness of breath has not worsened. States his left upper extremity has become swollen today. Speaking with the TCU nurse, patient was mostly sent to the emergency department due to his kidney function. She states he was supposed to receive a possible thoracentesis today however his Eliquis was not held and therefore it was not performed. Differential diagnosis includes but is not limited to CHF exacerbation, ERYN from diuresis, dehydration, electrolyte abnormality, DVT. On chart review patient's creatinine on 08/27/2025 was 4.43. This is up from 08/24 at 1.63. Today creatinine 5.42. He had a renal ultrasound yesterday that showed a cyst in the left kidney. Bladder has a mildly trabeculated appearance. He also had a CT abdomen pelvis without contrast. No hydronephrosis or urolithiasis. 1.3 cm pericardial effusion. Large left pleural effusion. Adrenal nodule. Left renal cyst. CBC with leukocytosis of 13.6. No anemia. Coagulation panel with an INR of 2.8. CMP shows ERYN with a BUN of 94 and a creatinine of 5.35. On previous discharge patient's creatinine was 1.52. Patient has transaminitis with an AST of 166 and ALT of 241. Not endorsing any abdominal pain. Troponin is 67 not endorsing any chest pain I suspect is secondary to his CHF. Will get delta. BNP elevated at 5779. This is up from 08/17 at 2332. Patient in CHF exacerbation. Did receive a call from radiology and they are willing to do thoracentesis today despite patient not being held off on Eliquis. UA is positive for UTI. Rocephin ordered. Patient will warrant admission for ERYN on CKD and CHF exacerbation. The family as well as the patient were updated of all the results and the plan. They confirmed understanding. I spoke with the hospitalist service Dr. Rosenberg. She accepted admission. Recommend me reaching out to nephrology as they saw the patient at the TCU yesterday. Page was sent. Have yet to hear back EKG: Interpreted by me/EM physician: EKG shows atrial fibrillation with none specific ST changes. Heart rate 95 Diagnostic: Interpreted by me/EM physician: Chest x-ray shows bilateral pleural effusions with atelectasis. Similar to previous chest x-ray. Cardiomegaly. No pneumonia. Radiology in agreement. Impression: 1. ERYN on CKD 2. Bilateral pleural effusions with need of thoracentesis 3. CHF exacerbation 4. UTI Lab Data Labs: Laboratory Results - last 24 hr 08/28/25 08/28/25 11:47 12:56 WBC 13.6 H RBC 4.93 Hgb 13.4 Hct 42.1 MCV 85.4 MCH 27.2 MCHC 31.8 L RDW Std Deviation 50.7 H RDW Coeff of Micheal 17.5 H Plt Count 430 MPV 9.2 Immature Gran % (Auto) 3.500 H Neut % (Auto) 79.7 H Lymph % (Auto) 8.5 L [place] % (Auto) 7.5 Eos % (Auto) 0.4 Baso % (Auto) 0.4 Absolute Neuts (auto) 10.8 H Absolute Lymphs (auto) 1.16 Nucleated RBC % 0.1 PT 30.3 H INR 2.8 APTT 33.7 Sodium 131 L Potassium 4.8 Chloride 92 L Carbon Dioxide 16.7 L Anion Gap 22 H BUN 94 H Creatinine 5.35 H Estim Creat Clear Calc 12.72 L Est GFR (MDRD) Non-Af 10 L BUN/Creatinine Ratio 17.6 Glucose 122 H Calcium 8.8 Total Bilirubin 1.01 AST 166 H ALT 241 H Alkaline Phosphatase 374 H Troponin T High Sens 67 H* D NT pro BNP II 5779 H Total Protein 6.6 Albumin 3.6 Globulin 3.0 Albumin/Globulin Ratio 1.2 Urine Color Yellow Urine Clarity Sl. Cloudy Urine pH 5.0 Ur Specific [place] 1.025 Urine Protein 100 H Urine Glucose (UA) Normal Urine Ketones Negative Urine Occult Blood 10 H Urine Nitrite Positive H Urine Bilirubin 1 H Urine Urobilinogen 1 H Ur Leukocyte Esterase 25 H Urine RBC 0 SEEN Urine WBC 0-5 SEEN Ur Squamous Epith Cells 0 SEEN Urine Bacteria RARE Urine Mucus 0 SEEN Urine Yeast RARE Radiography Diagnostic Testing: Clinical Impression(s) from Imaging Studies Chest X-Ray 08/28/25 12:25 IMPRESSION: Interstitial edema with bilateral pleural effusions and bibasilar atelectasis. Follow-up recommended to ensure resolution Reading Location: [id number] Discharge Plan Disposition Disposition: Acute Care Hospital [facility] Discharge Date/Time: 08/28/25 14:09
[2025-08-28 11:53] LABS: Hematocrit 42.1 % (40-54); Hemoglobin 13.4 g/dL (13.0-16.5); Immature Granulocytes Count 0.480 X10^3/uL (0.0-0.0); Mean Corp Hgb Conc 31.8 g/dL (32-36); Mean Corpuscular Volume 85.4 fL (80-94); Mean Platelet Vol. 9.2 fl (6.2-12.0); NRBC Flagged by Analyzer 0.1 % (0-5); Platelet Count 430 K/mm3 (150-450); RBC Distribution Width CV 17.5 % (11.6-14.6); RBC Distribution Width SD 50.7 fl (35.1-43.9); Red Blood Count 4.93 M/mm3 (4.6-6.2); White Blood Count 13.6 K/mm3 (4.4-11.0)
[2025-08-28 12:03] LABS: Prothrombin Time (Protime)PT. 30.3 SECONDS (11.7-14.9)
[2025-08-28 12:04] LABS: Partial Thromboplast Time 33.7 Seconds (24.1-36.2)
[2025-08-28 12:10] LABS: Troponin T High Sensitivity 67 ng/L (<=22)
[2025-08-28 12:12] LABS: AST(SGOT) 166 U/L (<=37); Alanine Aminotransfer ALT/SGPT 241 U/L (<=46); Albumin, Serum 3.6 g/dL (3.4-4.8); Alkaline Phosphatase 374 U/L (40-129); Anion Gap 22 (5-15); BUN 94 mg/dL (4-19); BUN/Creat Ratio 17.6 RATIO (10-20); Calcium,Total 8.8 mg/dL (7.6-11.0); Carbon Dioxide 16.7 mmol/L (21.0-32.0); Chloride 92 mmol/L (98-108); Estimated Creatinine Clearance 12.72 ml/min (50-250); Globulin 3.0 g/dL (2.2-4.2); Glucose 122 mg/dL (70-99); Potassium 4.8 mmol/L (3.3-5.1); Pro- Brain NATRIURETIC PEPTIDE 5779 pg/mL (<=1800)
--- NOTE | 2025-08-28 12:25 | RAD_ITS ---
PROCEDURE: CHEST PA AND LATERAL 08/28/2025 REASON FOR EXAM: SHORTNESS OF BREATH TECHNIQUE: Procedure Code: RADCXR Modality: DX Procedure: CHEST PA AND LATERAL COMPARISON: None FINDINGS: Hardware: EKG leads overlie the chest Heart: Borderline cardiomegaly Mediastinum: The mediastinal contour is unremarkable. Lungs: Lungs are expanded with superimposed interstitial edema, bilateral pleural effusions and likely bibasilar atelectasis suggesting CHF. Follow-up recommended to ensure resolution Bones: Degenerative changes are identified within the thoracic spine. RAD/Chest PA and Lateral IMPRESSION: Interstitial edema with bilateral pleural effusions and bibasilar atelectasis. Follow-up recommended to ensure resolution Reading Location: [id number]
--- NOTE | 2025-08-28 12:58 | HP.PCM.HOS_ITS ---
HPI - General General Date of Admission: 08/28/25 Date of Service: 08/28/25 HPI Narrative RAYA MCNAIR, is a 85 M who presents via the ED on 08/28/2025 with a complaint of shortness of breath. HE was admitted from the TCU for ERYN and shortness of breath where he started feeling short of breath today. His kidney function had also started trending downwards. Nephrology was consulted to see him yesterday when his creatinine was over 4 with a baseline of around 1.7 when he was discharged recently. Nephrology reviewed him and did not think that he needed dialysis. Today labs were repeated and there was concern that patient may be needing dialysis so he was sent to the ED. His creatinine had gone up to over 5. He admits to shortness of breath though he remains on his baseline 2 L of oxygen. He denies any chest pain or palpitations, dizziness, nausea or vomiting or any other symptoms. He admitted to swelling in his left upper extremity though he had had a duplex done in the TCU and it was negative. Vitals in the ED were temp of 97.2F, BP of 104/68, RR of 22 and he was saturating at 96% on 2L of oxygen. CBC showed hemoglobin of 13.4 with WBC of 13.6 and platelets of 430. Chemistry showed sodium of 131 with bicarb of 16.7 and creatinine of 5.35. Anion gap was 22. Total bilirubin was 1.01 and AST/ALT?ALP was 166/241/374. Pro BNP was 5779. Urinalysis showed no positive nitrites but no wbcs. CXR showed interstitial edema and bilateral pleural effusions and bibasilar atelectasis. He has been admitted to be managed for ERYN on CKD with fluid overload. [facility] Medical History Atrial fibrillation Hyperlipidemia Skin cancer Pneumonia Heart disease Gastrointestinal problem Gall stones Cataract Bone fracture Allergies Type 2 diabetes mellitus Hypertension Celiac disease Anxiety Coronary artery disease Hypertension Atherosclerotic heart disease of [place] coronary artery without angina pectoris Home Medications ?Medication ?Instructions ?Recorded ?Last Taken ?Type aspirin 81 mg tablet,delayed 81 mg PO DAILY@0800 heart health 03/18/21 08/23/25 History release cholecalciferol (vitamin D3) 50 4,000 unit PO DAILY JOHN PPLEMENT 03/18/21 03/18/21 History mcg (2,000 unit) capsule vit C 250 mg-vit E 90 mg-zinc 40 1 cap PO BID EYE HEAL TH 03/18/21 03/18/21 History mg-copper 1 [id number] capsule atorvastatin 40 mg tablet 40 mg PO QHS cholesterol #90 tabs 04/11/21 08/22/25 Rx isosorbide mononitrate 30 mg 30 mg PO DAILY BP #90 tab s 04/11/21 Unknown Rx tablet,extended release 24 hr vitamin E mixed 400 unit capsule 400 unit PO DAILY sup plement 02/16/22 Unknown History montelukast 10 mg tablet 10 mg PO QHS breathing 10/1908/22/25 History valsartan 320 mg tablet 320 mg PO DAILY BP 10/19/23 08/22/25 History tamsulosin 0.4 mg capsule 0.4 mg PO BID BPH 12/26/24 0 08/23/25 History famotidine 20 mg tablet 20 mg PO DAILY GERD #90 tabs 01/15/25 08/23/25 Rx dulaglutide 3 mg/0.5 mL 3 mg (0.5 mL) subcut QWEEK S OB #2 06/28/25 Unknown Rx subcutaneous pen injector mL (Trulicity) metformin 500 mg tablet,extended 500 mg PO DAILY Blood Glucose 06/28/25 Unknown History release 24 hr apixaban 5 mg tablet (Eliquis) 5 mg PO BID Blood thinn er #180 tabs 07/12/25 08/23/25 Rx amiodarone 200 mg tablet 200 mg PO DAILY BP #30 tabs 08/02/25 08/23/25 Rx metoprolol succinate 50 mg 50 mg PO DAILY BP #90 tabs 08/02/25 08/23/25 Rx tablet,extended release 24 hr diltiazem HCl 120 mg 120 mg PO QHS BP 08/17/25 Un known History capsule,extended release 24 hr furosemide 40 mg tablet (Lasix) 40 mg PO DAILY Fluid r etention #30 08/23/25 Unknown Rx tabs Allergy/AdvReac Type Severity Reaction Status Date / Time gluten AdvReac upset Verified 08/28/25 10:45 stomach/diarrhea lactose AdvReac upset Verified 08/28/25 10:45 stomach/diarrhea Family History Mother Thyroid disorder Father Myocardial infarction Hypertension Heart disease Surgical History Hx of melanoma excision History of cholecystectomy Presence of coronary angioplasty implant and graft (~04/03/21) Presence of stent in coronary artery (~04/03/21) Social History household members: none Smoking Status: Former smoker how long ago did patient quit smokin years ago alcohol intake: current alcohol intake frequency: holidays/special occasions only substance use type: does not use caffeine: Yes Type: coffee Number of servings: 2 and tea Number of servings: 1 what type of physical activity do you participate in: other details: cardio frequency: 3-4 times per week ROS Constitutional Constitutional: Reports fatigue, malaise and weakness; Denies anorexia, chills or fever(s) Eyes Eyes: Denies change in vision ENT HEENT: Denies dysphagia, headache(s) or sore throat Cardiovascular Cardiovascular: Reports dyspnea on exertion and edema; Denies chest pain, lightheadedness, orthopnea, palpitations, paroxysmal nocturnal dyspnea, rapid heart rate or syncope Respiratory/Chest Respiratory/Chest: Reports cough, dyspnea, shortness of breath at rest and shortness of breath with exertion; Denies productive cough Gastrointestinal Gastrointestinal: Denies abdominal pain, constipation, diarrhea, nausea or vomiting Genitourinary Genitourinary: Denies burning urination or dysuria Neurologic Neurologic: Denies focal weakness, headache(s), numbness, seizures or syncope Psychiatric Psychiatric: Denies anxiety Vital Signs Vital Signs Vital Signs: 08/28/25 10:37 08/28/25 10:43 08/28/25 11:17 Temperature 97.2 F L Temperature Source Axillary Pulse Rate 93 Respiratory Effort Short of Breath Respiratory Depth Shallow Blood Pressure 104/68 Blood Pressure Mean 80 Pulse Ox 97 96 Oxygen Delivery Method Room Air Nasal Cannula Nasal Cannula Oxygen Flow Rate (L/min) 2 2 Weight Weight: 249 lb 9.012 oz Body Mass Index (BMI) 35.8 Physical Exam Const alert, oriented x3 and no apparent distress Constitutional Narrative: frail, weak General Appearance: cooperative HEENT normocephalic, head/scalp atraumatic, hearing grossly normal bilaterally and moist oral mucous membranes Mouth: oral and palatal mucosa normal Eyes PERRL and conjunctivae normal Neck supple Resp Resp Narrative: Moderately diminished breath sounds bibasilarly. No wheezes or crackles. On 2 L of oxygen which is his baseline. Cardio regular rate, regular rhythm, S1 normal heart sound, S2 normal heart sound and no murmurs GI normal to inspection, nondistended, normoactive bowel sounds, soft to palpation, non-tender and non-distended Extremity Extremity Narrative: Left upper extremity edematous and oozing fluid. Nontender. Bilateral 1+ lower extremity edema. Neuro oriented x3, moves all extremities and no focal motor deficits Sensorium / Orientation: awake and alert Motor Exam: strength 5/5 throughout Psych affect normal Results Lab / Micro Data 08/28/25 11:47 08/28/25 11:47 Labs: Laboratory Results - last 24 hr 08/28/25 11:47: WBC 13.6 H, RBC 4.93, Hgb 13.4, Hct 42.1, MCV 85.4, MCH 27.2, M CHC 31.8 L, RDW Std Deviation 50.7 H, RDW Coeff of Micheal 17.5 H, Plt Count 430, MPV 9.2, Immature Gran % (Auto) 3.500 H, Neut % (Auto) 79.7 H, Lymph % (Auto) 8.5 L, [place] % (Auto) 7.5, Eos % (Auto) 0.4, Baso % (Auto) 0.4, Absolute Neuts (auto) 10.8 H, Absolute Lymphs (auto) 1.16, Nucleated RBC % 0.1, PT 30.3 H, INR 2.8, APTT 33.7, Sodium 131 L, Potassium 4.8, Chloride 92 L, Carbon Dioxide 16.7 L, Anion Gap 22 H, BUN 94 H, Creatinine 5.35 H, Estim Creat Clear Calc 12.72 L, Est GFR (MDRD) Non-Af 10 L, BUN/Creatinine Ratio 17.6, Glucose 122 H, Calcium 8.8, Total Bilirubin 1.01, AST 166 H, ALT 241 H, Alkaline Phosphatase 374 H, T roponin T High Sens 67 H* D, NT pro BNP II 5779 H, Total Protein 6.6, Albumin 3.6, Globulin 3.0, Albumin/Globulin Ratio 1.2 Micro: Microbiology 08/28/25 11:27 Mucosa - Nose SARS-CoV-2, Influenza & RSV (PCR) - Final Imaging Radiology Impression Chest X-Ray 08/28/25 12:25 IMPRESSION: Interstitial edema with bilateral pleural effusions and bibasilar atelectasis. Follow-up recommended to ensure resolution Reading Location: [id number] Assessment & Plan Assessment/Plan (1) ERYN (acute kidney injury): PLAN: Plan #ERYN on CKD * Patient sent to the ED from the transitional care unit on account of worsening kidney function. On 08/24/2025 his creatinine was 1.63. Creatinine was 4.43 yesterday and today is 5.35. * Patient also having minimal urine output. * Admit to PCU. Blood pressure running low in the 80s systolic. Daughter says his blood pressure has been running low in the 100 systolic in the TCU. * Patient also appears to be edematous and clinically fluid overloaded and chest x-ray did show evidence of bilateral pleural effusions. He has required thoracentesis in the past. * Patient was due to have thoracentesis done today. * Admit to the PCU. Consult nephrology. Nephrology informed about consult. * He has known EF of 65% per echo done on 08/22/2025 which also showed severe biatrial dilatation and small to moderate circumferential pericardial effusion * Blood pressure still running low despite being given a bolus of normal saline. He is however making very little urine so my concern is significant hydrate him some more he would just retain the fluid. * Patient would likely need to be commenced on dialysis sooner rather than later to help with fluid removal. GIving him IVF now will risk worsening the clinical fluid overload. WIll insert vargas catheter. * Hold off on aggressive IVF hydration now, but will give periodic boluses of IVF as needed for hypotension. * #Probable UTI: * Urinalysis showed elevated nitrites and leukocyte esterase but no bacteria. Will order urine cultures. Started on IV ceftriaxone. Blood cultures also ordered. #Hyponatremia: * Sodium is 131. This is chronic and is likely related to the fluid overload. Should improve as kidney function improves likely with dialysis #Anion gap metabolic acidosis in the setting of ERYN on CKD * Likely due to uremia. BUN is 94. Anion gap is 22 with bicarb of 16.7. Nephrology consulted. Management as per nephrology. * * #Acute exacerbation of heart failure preserved ejection fraction: * BNP is 5779. However this is in light of the ERYN on CKD so this may be due to poor clearance of the BMP and not really due to acute heart failure. * He is on his baseline 2 L of oxygen but does appear clinically fluid overloaded with evidence of bilateral pleural effusions and edema * Diuretics held due to ERYN on CKD. Blood pressure also running low. * Will monitor closely. Commencement of dialysis to help with fluid removal. * * #History of paroxysmal A-fib: On amiodarone and Cardizem as well as metoprolol. Will hold these in light of hypotension #Type 2 diabetes mellitus. Oral meds on hold. Insulin sliding scale. Accu-Cheks ACHS. #Hyperlipidemia: On statin #CAD s/p PCI in 2020: On aspirin and valsartan as well as statin. Metoprolol held. #History of nodular thyroid: Not seen per imaging. Thyroid function was normal. Follow-up on outpatient basis with PCP #History of BPH: Flomax DVT prophylaxis: * Eliquis held and will place on heparin drip in anticipation of patient possibly needing thoracentesis and likely dialysis catheter insertion. CODE STATUS: * Patient, daughter and son counseled extensively about different types of CODE STATUS including full code, DNR CCA and DNR CCA. * Patient elects to be DNRCCA no intubation * Total [id number] time 17 minutes. Charges/Coding Visit Charges Inpatient E&M: 10039 Init Hosp L3 Procedures Hospitalists Procedures: 76068 Advncd Care Plan 30 Min
[2025-08-28 13:00] LABS: Mucous, Urine 0 SEEN /hpf (<or=2+); Red Blood Cells-Urine 0 SEEN /hpf (0-5); Squamous Epithelial Cells - UA 0 SEEN /hpf (0-5)
[2025-08-28 13:01] LABS: Color, Urine Yellow (Yellow); Glucose, Dipstick Normal (Normal); Ketone-Dipstick Negative (Negative); Leukocyte Esterase-Dipstick 25 /ul (Negative); Nitrite-Dipstick Positive (Negative); Occult Blood-Urine 10 /ul (Negative); Protein-Dipstick 100 mg/dl (Negative); Specific Gravity, Urine 1.025 (1.002-1.030)
[2025-08-28 13:02] LABS: Urine Bilirubin Dipstick 1 mg/dL (Negative)
[2025-08-28 13:24] LABS: Yeast-Urine RARE /hpf (None Seen)
[2025-08-28 14:47] LABS: Troponin T High Sens 2 HR 61 ng/L (<=22)
[2025-08-28] MEDS: 0.9% Normal Saline (500mL Bag) 500 ML IV (15:52)
[2025-08-28 19:49] LABS: Troponin T High Sensitivity 69 ng/L (<=22)
[2025-08-28] MEDS: HEPARIN/D5w 25,000 UNITS 25,000 UNITS/250 ML IV.SOLN. 17 UNITS CONT INF (19:49)
[2025-08-28] MEDS: 0.9% Saline Lock 10 ML Syringe IV (21:20)
[2025-08-29] VITALS (24 sets, daily range): BP systolic 73–115; BP diastolic 46–99; PULSE 66–98; RESP 13–19; TEMP 35.5–36.9; O2SAT 91–100
[2025-08-29 03:46] LABS: Partial Thromboplast Time > 200.0 Seconds (24.1-36.2)
[2025-08-29 06:08] LABS: Hematocrit 39.3 % (40-54); Hemoglobin 12.6 g/dL (13.0-16.5); Immature Granulocytes Count 0.300 X10^3/uL (0.0-0.0); Mean Corp Hgb Conc 32.1 g/dL (32-36); Mean Corpuscular Volume 86.4 fL (80-94); Mean Platelet Vol. 9.9 fl (6.2-12.0); NRBC Flagged by Analyzer 0.1 % (0-5); Platelet Count 397 K/mm3 (150-450); RBC Distribution Width CV 17.5 % (11.6-14.6); RBC Distribution Width SD 51.8 fl (35.1-43.9); Red Blood Count 4.55 M/mm3 (4.6-6.2); White Blood Count 13.6 K/mm3 (4.4-11.0)
[2025-08-29 07:07] LABS: Anion Gap 23 (5-15); BUN 100 mg/dL (4-19); BUN/Creat Ratio 16.4 RATIO (10-20); Calcium,Total 8.5 mg/dL (7.6-11.0); Carbon Dioxide 13.3 mmol/L (21.0-32.0); Chloride 93 mmol/L (98-108); Estimated Creatinine Clearance 11.15 ml/min (50-250); Glucose 125 mg/dL (70-99); Potassium 5.2 mmol/L (3.3-5.1)
[2025-08-29] MEDS: Multivitamin (Healthy Eyes) Capsule 1 CAP PO ×2 (08:19→16:33)
[2025-08-29] MEDS: 0.9% Normal Saline (500mL Bag) 500 ML 999 ML IV (10:07)
--- NOTE | 2025-08-29 10:26 | CON.PCM.RE_ITS ---
Assessment & Plan Assessment/Plan (1) ERYN (acute kidney injury): PLAN: Prior to this last admission in July, his baseline creatinine was normal less than 1. During recent hospital admission, he was diuresed with IV Lasix. Creatinine slowly increased to around 1.3-1.5 range. Discharge creatinine was around 1.5, to be expected from diuresis and other ongoing events. Sudden increase in creatinine over the weekend, worsening. He is essentially anuric. No contrast studies. Medications oro, he was continued on appropriate CHF therapy. He did receive some IV fluids without much response. No hydronephrosis on imaging studies. Only difference that I could see was the drop in blood pressure compared to previous admission. He does not look septic, WBC count is only slightly elevated. Blood cultures are pending. At this time infection suspicion is low as per my discussion with hospitalist. Presumably this is decompensated heart failure/cardiorenal syndrome. to rule out autoimmune pathology, will send serologies. He is anuric, acidotic, hyperkalemic, has volume overload. Will need renal replacement therapy. Plan was discussed with patient and family at bedside. Explained process involved including catheter placement, dialysis in general. All questions answered. They are agreeable to proceed with dialysis. Will place a consult for surgery for placement of tunneled dialysis catheter. Likely he will need dialysis for couple of weeks at least. If tunneled catheter is not possible today, can start with temporary catheter. Discussed with hospitalist about plan. If no identifiable etiology, we may need to do a kidney biopsy Acidosis, hyperkalemia. Should improve with dialysis HPI Consult Data Date of Consult: 08/29/25 HPI Narrative Reason for Consultation: eryn HPI Narrative: RAYA MCNAIR, is a 85 M who presents to the hospital with worsening renal failure. Nephrology on consultation due to same. He was recently admitted here and discharged to rehab unit. Admission diagnosis was fluid overload, pleural effusions. Status post pleural tap he was discharged to rehab unit. Discharge medications reviewed, his medications include appropriate CHF therapy including Diovan, Lasix, Imdur. Cardizem and metoprolol for A-fib. He went to rehab unit on Wednesday with a creatinine of 1.5. Prior to previous admission, his baseline was normal and less than 1. On Wednesday he had routine lab work done which showed creatinine of more than 4. At that point, ERYN was presumed due to diuretic use. Lasix was held and he received IV fluids. Despite that renal function continued to get worse hence he was transferred to the hospital. Reviewed records from rehab unit, really uneventful stay over the weekend. No contrast, no new medications. Abdominal imaging without any hydronephrosis. His blood pressure last admission was normal to high, tolerated blood pressure medications well. Blood pressure now is on the lower side. With respect to cardiac issues, atrial fibrillation since May, multiple medication adjustment. At the time of discharge, he was on amiodarone, Cardizem, metoprolol. Echocardiogram showed ejection fraction of 65%, biatrial dilatation. Mild pericardial effusion, no tamponade physiology. Pleural effusions, status post pleural tap. Vargas catheter was placed on admission, essentially 0 urine output since yesterday. Appears erythematous. Other issues include borderline hyponatremia, acidosis, hyperkalemia. [facility] Medical History Atrial fibrillation Hyperlipidemia Skin cancer Pneumonia Heart disease Gastrointestinal problem Gall stones Cataract Bone fracture Allergies Type 2 diabetes mellitus Hypertension Celiac disease Anxiety Coronary artery disease Hypertension Atherosclerotic heart disease of [place] coronary artery without angina pectoris Home Medications ?Medication ?Instructions ?Recorded ?Last Taken ?Type aspirin 81 mg tablet,delayed 81 mg PO DAILY@0800 [facility] 03/18/21 08/23/25 History release cholecalciferol (vitamin D3) 50 4,000 unit PO DAILY JOHN PPLEMENT 03/18/21 03/18/21 History mcg (2,000 unit) capsule vit C 250 mg-vit E 90 mg-zinc 40 1 cap PO BID EYE HEAL TH 03/18/21 03/18/21 History mg-copper 1 [id number]-ipmuej capsule atorvastatin 40 mg tablet 40 mg PO QHS cholesterol #90 tabs 04/11/21 08/22/25 Rx isosorbide mononitrate 30 mg 30 mg PO DAILY BP #90 tab s 04/11/21 Unknown Rx tablet,extended release 24 hr vitamin E mixed 400 unit capsule 400 unit PO DAILY sup plement 02/16/22 Unknown History montelukast 10 mg tablet 10 mg PO QHS breathing 10/1908/22/25 History valsartan 320 mg tablet 320 mg PO DAILY BP 10/19/23 08/22/25 History tamsulosin 0.4 mg capsule 0.4 mg PO BID BPH 12/26/24 0 08/23/25 History famotidine 20 mg tablet 20 mg PO DAILY GERD #90 tabs 01/15/25 08/23/25 Rx dulaglutide 3 mg/0.5 mL 3 mg (0.5 mL) subcut QWEEK S OB #2 06/28/25 Unknown Rx subcutaneous pen injector mL (Trulicity) metformin 500 mg tablet,extended 500 mg PO DAILY Blood Glucose 06/28/25 Unknown History release 24 hr apixaban 5 mg tablet (Eliquis) 5 mg PO BID Blood thinn er #180 tabs 07/12/25 08/23/25 Rx amiodarone 200 mg tablet 200 mg PO DAILY BP #30 tabs 08/02/25 08/23/25 Rx metoprolol succinate 50 mg 50 mg PO DAILY BP #90 tabs 08/02/25 08/23/25 Rx tablet,extended release 24 hr diltiazem HCl 120 mg 120 mg PO QHS BP 08/17/25 Un known History capsule,extended release 24 hr furosemide 40 mg tablet (Lasix) 40 mg PO DAILY Fluid r etention #30 08/23/25 Unknown Rx tabs Allergy/AdvReac Type Severity Reaction Status Date / Time gluten AdvReac upset Verified 08/28/25 10:45 stomach/diarrhea lactose AdvReac upset Verified 08/28/25 10:45 stomach/diarrhea Family History Mother Thyroid disorder Father Myocardial infarction Hypertension Heart disease Surgical History Hx of melanoma excision History of cholecystectomy Presence of coronary angioplasty implant and graft (~04/03/21) Presence of stent in coronary artery (~04/03/21) Social History household members: none Smoking Status: Former smoker how long ago did patient quit smokin years ago alcohol intake: current alcohol intake frequency: holidays/special occasions only substance use type: does not use caffeine: Yes Type: coffee Number of servings: 2 and tea Number of servings: 1 what type of physical activity do you participate in: other details: cardio frequency: 3-4 times per week ROS ROS Narrative Negative except above Physical Exam Narrative Alert awake oriented x 3 no obvious distress no pallor no icterus no JVD s1s2 no murmurs lungs clear abdomen soft no organomegaly +++ edema no cyanosis vargas + Lab / Micro Data 08/29/25 05:20 08/29/25 05:20 Labs: Laboratory Results - last 24 hr 08/28/25 11:47: WBC 13.6 H, RBC 4.93, Hgb 13.4, Hct 42.1, MCV 85.4, MCH 27.2, M CHC 31.8 L, RDW Std Deviation 50.7 H, RDW Coeff of Micheal 17.5 H, Plt Count 430, MPV 9.2, Immature Gran % (Auto) 3.500 H, Neut % (Auto) 79.7 H, Lymph % (Auto) 8.5 L, [place] % (Auto) 7.5, Eos % (Auto) 0.4, Baso % (Auto) 0.4, Absolute Neuts (auto) 10.8 H, Absolute Lymphs (auto) 1.16, Nucleated RBC % 0.1, PT 30.3 H, INR 2.8, APTT 33.7, Sodium 131 L, Potassium 4.8, Chloride 92 L, Carbon Dioxide 16.7 L, Anion Gap 22 H, BUN 94 H, Creatinine 5.35 H, Estim Creat Clear Calc 12.72 L, Est GFR (MDRD) Non-Af 10 L, BUN/Creatinine Ratio 17.6, Glucose 122 H, Calcium 8.8, Total Bilirubin 1.01, AST 166 H, ALT 241 H, Alkaline Phosphatase 374 H, T roponin T High Sens 67 H* D, NT pro BNP II 5779 H, Total Protein 6.6, Albumin 3.6, Globulin 3.0, Albumin/Globulin Ratio 1.2 08/28/25 12:56: Urine Color Yellow, Urine Clarity Sl. Cloudy, Urine pH 5.0, Ur Specific [place] 1.025, Urine Protein 100 H, Urine Glucose (UA) Normal, Urine Ketones Negative, Urine Occult Blood 10 H, Urine Nitrite Positive H, Urine Bilirubin 1 H, Urine Urobilinogen 1 H, Ur Leukocyte Esterase 25 H, Urine RBC 0 SEEN, Urine WBC 0-5 SEEN, Ur Squamous Epith Cells 0 SEEN, Urine Bacteria RARE, Urine Mucus 0 SEEN, Urine Yeast RARE 08/28/25 13:50: Troponin T Hi Sens 2 Hr 61 H* 08/28/25 15:50: POC Glucose 114 H 08/28/25 18:42: Troponin T High Sens 69 H* 08/29/25 02:13: APTT > 200.0 H* 08/29/25 05:20: WBC 13.6 H, RBC 4.55 L, Hgb 12.6 L, Hct 39.3 L, MCV 86.4, MCH 27.7, MCHC 32.1, RDW Std Deviation 51.8 H, RDW Coeff of Micheal 17.5 H, Plt Count 397, MPV 9.9, Immature Gran % (Auto) 2.200 H, Neut % (Auto) 81.0 H, Lymph % (Auto) 8.9 L, [place] % (Auto) 7.4, Eos % (Auto) 0.3, Baso % (Auto) 0.2, Absolute Neuts (auto) 11.0 H, Absolute Lymphs (auto) 1.21, Nucleated RBC % 0.1, Sodium 129 L, Potassium 5.2 H, Chloride 93 L, Carbon Dioxide 13.3 L, Anion Gap 23 H, B UN 100 H, Creatinine 6.10 H, Estim Creat Clear Calc 11.15 L, Est GFR (MDRD) Non- Af 8 L, BUN/Creatinine Ratio 16.4, Glucose 125 H, Calcium 8.5 08/29/25 06:47: POC Glucose 123 H Micro: Microbiology 08/28/25 11:27 Mucosa - Nose SARS-CoV-2, Influenza & RSV (PCR) - Final Imaging Radiology Impression Venous Doppler Study 08/28/25 11:28 Interpretation Summary Deep veins of the left upper extremity are patent and compressible segmentally. There is no evidence of deep vein thrombosis. The superficial veins of the left upper extremity, the basilic and cephalic veins, are patent and compressible. There is no evidence of left upper extremity superficial thrombophlebitis involving the veins imaged. Ordering Physician: Edward Farr Referring Physician: Jayesh Raphael Performed By: Elisa Astudillo, ADRIANO, RVT ??? Chest X-Ray 08/28/25 12:25 IMPRESSION: Interstitial edema with bilateral pleural effusions and bibasilar atelectasis. Follow-up recommended to ensure resolution Reading Location: [id number]
[2025-08-29 10:41] LABS: Prothrombin Time (Protime)PT. 42.5 SECONDS (11.7-14.9)
--- NOTE | 2025-08-29 10:53 | CASEMGMT ---
Discharge Planning A list of?SNF providers including quality and resource use data and consistent with the patient's preferred geographic region, medical needs, and insurance network was created in [employer] Guide.? This list was provided to the SW. Nickie Still Discharge Planning Asst.
--- NOTE | 2025-08-29 11:14 | CASEMGMT ---
Social Work SW spoke with the patient, his son and daughter. SW explained patient is unable to return to TCU due to starting dialysis. SW provided a list of?SNF providers including quality and resource use data and consistent with the patient's preferred geographic region, medical needs, and insurance network was created in [employer] Guide.? SW will follow up with the family regarding SNF choices. RONDA Pedraza
--- NOTE | 2025-08-29 11:55 | ECHOL_ITS ---
Reason For Study Reason For Study: Pericardial Effusion Procedure This was a limited 2D transthoracic echocardiogram. Exam performed portable in ICU/CCU. Left Ventricle Normal LV size. Left ventricular systolic function is normal. The left ventricular ejection fraction is 45 %. No regional wall motion abnormalities noted. Right Ventricle Normal RV size. Normal systolic function. Atria Normal left atrium. Normal right atrium. Mitral Valve Normal mitral valve. Tricuspid Valve Normal tricuspid valve. Great Vessels Normal aortic root. Pericardium/Pleural Small (<1.0 cm) pericardial effusion. ECHO/Echo, Limited Study Interpretation Summary Normal LV size. Left ventricular systolic function is normal. The left ventricular ejection fraction is 45 %. Small (<1.0 cm) pericardial effusion. Ordering Physician: Gautam Barnes Performed By: Edward Sim RCS
--- NOTE | 2025-08-29 12:03 | NURSING ---
called and gave report to Tawny in ICU. No other questions
--- NOTE | 2025-08-29 12:20 | CON.PCM.SX_ITS ---
Assessment & Plan Assessment/Plan (1) ERYN (acute kidney injury): PLAN: Patient 85-year-old male admitted for acute CHF exacerbation with shortness of breath and acute kidney injury. He has had apparent precipitous deterioration of his renal function for unknown reasons. Additionally, he has a low clinical signs of acute CHF exacerbation with pleural effusions, anasarca, and echocardiography demonstrating severe biatrial enlargement. Moreover, today patient exhibits sharp rise in his INR without a clear medicinal cause. Taken together I had discussed the physiology at play with nephrology and there is a strong suspicion for severe right heart failure with hepatic congestion. This conclusion is also shared with gastroenterology. Irrespective of the etiology, I see patient's elevated INR and supratherapeutic PTT as contraindication to proceeding with catheter placement for the risk of bleeding. Although platelet count is within normal limits platelet function is dubious in light of patient's present uremia. Plan is to administer 10 mg vitamin K and recheck coagulation profile. If this is not significantly improved by tomorrow morning we will plan to administer PCC. I have then recommended proceeding with a temporary (nontunneled) hemodialysis catheter insertion in the name of trying to minimize procedural time and cardiopulmonary risk. Additionally, given patient's tenuous hemodynamic status I have scheduled him in the operating room but should this improve could consider bedside placement now that he is relocated to the ICU. Lastly, discussed that I favor proceeding with thoracentesis if hemodynamic and coagulation studies permit as a means of trying to optimize him clinically and concern over the amount of volume nephrology will be able to withdraw given patient's present hypotension. Jeromy Miller MD General Surgery Endocrine Surgery Pager: [facility] [address] [place] [address], [address] [place] [id number] Office: [phone] HPI Consult Data Date of Consult: 08/29/25 HPI Narrative Reason for Consultation: Hemodialysis catheter HPI Narrative: RAYA MCNAIR, is a 85 M who presented to [facility] ER yesterday from [facility] transitional care unit after developing progressive onset shortness of breath. He was noted to have rising creatinine as well as evidence of heart failure with an elevated BNP and pleural effusions. His family accompanies him in the room and shares that his blood pressure, normally high, has been lower over the last several days. Mr. Mcnair denies any history of kidney or liver dysfunction prior to last several admissions. He does acknowledge a history of diabetes and high blood pressure. Mr. Mcnair is right-handed. He denies any prior central venous catheter insertions. Patient's present laboratories are notable for sodium of 129, potassium of 5.2, BUN of 100, and creatinine of 6.1. Additionally, coagulation studies were performed showing INR of 4.3 and PTT of greater than 200. CT abdomen pelvis was performed for some right abdominal discomfort and also to rule out acute obstruction of the kidneys. This noted the presence of some new ascites. [facility] Medical History Atrial fibrillation Hyperlipidemia Skin cancer Pneumonia Heart disease Gastrointestinal problem Gall stones Cataract Bone fracture Allergies Type 2 diabetes mellitus Hypertension Celiac disease Anxiety Coronary artery disease Hypertension Atherosclerotic heart disease of [place] coronary artery without angina pectoris Home Medications ?Medication ?Instructions ?Recorded ?Last Taken ?Type aspirin 81 mg tablet,delayed 81 mg PO DAILY@0800 heart health 03/18/21 08/23/25 History release cholecalciferol (vitamin D3) 50 4,000 unit PO DAILY JOHN PPLEMENT 03/18/21 03/18/21 History mcg (2,000 unit) capsule vit C 250 mg-vit E 90 mg-zinc 40 1 cap PO BID EYE HEAL TH 03/18/21 03/18/21 History mg-copper 1 [id number] capsule atorvastatin 40 mg tablet 40 mg PO QHS cholesterol #90 tabs 04/11/21 08/22/25 Rx isosorbide mononitrate 30 mg 30 mg PO DAILY BP #90 tab s 04/11/21 Unknown Rx tablet,extended release 24 hr vitamin E mixed 400 unit capsule 400 unit PO DAILY sup plement 02/16/22 Unknown History montelukast 10 mg tablet 10 mg PO QHS breathing 10/1908/22/25 History valsartan 320 mg tablet 320 mg PO DAILY BP 10/19/23 08/22/25 History tamsulosin 0.4 mg capsule 0.4 mg PO BID BPH 12/26/24 0 08/23/25 History famotidine 20 mg tablet 20 mg PO DAILY GERD #90 tabs 01/15/25 08/23/25 Rx dulaglutide 3 mg/0.5 mL 3 mg (0.5 mL) subcut QWEEK S OB #2 06/28/25 Unknown Rx subcutaneous pen injector mL (Trulicity) metformin 500 mg tablet,extended 500 mg PO DAILY Blood Glucose 06/28/25 Unknown History release 24 hr apixaban 5 mg tablet (Eliquis) 5 mg PO BID Blood thinn er #180 tabs 07/12/25 08/23/25 Rx amiodarone 200 mg tablet 200 mg PO DAILY BP #30 tabs 08/02/25 08/23/25 Rx metoprolol succinate 50 mg 50 mg PO DAILY BP #90 tabs 08/02/25 08/23/25 Rx tablet,extended release 24 hr diltiazem HCl 120 mg 120 mg PO QHS BP 08/17/25 Un known History capsule,extended release 24 hr furosemide 40 mg tablet (Lasix) 40 mg PO DAILY Fluid r etention #30 08/23/25 Unknown Rx tabs Allergy/AdvReac Type Severity Reaction Status Date / Time gluten AdvReac upset Verified 08/28/25 10:45 stomach/diarrhea lactose AdvReac upset Verified 08/28/25 10:45 stomach/diarrhea Family History Mother Thyroid disorder Father Myocardial infarction Hypertension Heart disease Surgical History Hx of melanoma excision History of cholecystectomy Presence of coronary angioplasty implant and graft (~04/03/21) Presence of stent in coronary artery (~04/03/21) Social History household members: none Smoking Status: Former smoker how long ago did patient quit smokin years ago alcohol intake: current alcohol intake frequency: holidays/special occasions only substance use type: does not use caffeine: Yes Type: coffee Number of servings: 2 and tea Number of servings: 1 what type of physical activity do you participate in: other details: cardio frequency: 3-4 times per week Physical Exam Const alert and oriented x3 Chest Chest Narrative: No rashes/eruptions Resp Resp Narrative: Mildly dyspneic, diminished breath sounds on the left with auscultation Lab / Micro Data 08/29/25 05:20 08/29/25 05:20 Labs: Laboratory Results - last 24 hr 08/28/25 12:56: Urine Color Yellow, Urine Clarity Sl. Cloudy, Urine pH 5.0, Ur Specific [place] 1.025, Urine Protein 100 H, Urine Glucose (UA) Normal, Urine Ketones Negative, Urine Occult Blood 10 H, Urine Nitrite Positive H, Urine Bilirubin 1 H, Urine Urobilinogen 1 H, Ur Leukocyte Esterase 25 H, Urine RBC 0 SEEN, Urine WBC 0-5 SEEN, Ur Squamous Epith Cells 0 SEEN, Urine Bacteria RARE, Urine Mucus 0 SEEN, Urine Yeast RARE 08/28/25 13:50: Troponin T Hi Sens 2 Hr 61 H* 08/28/25 15:50: POC Glucose 114 H 08/28/25 18:42: Troponin T High Sens 69 H* 08/29/25 02:13: APTT > 200.0 H* 08/29/25 05:20: WBC 13.6 H, RBC 4.55 L, Hgb 12.6 L, Hct 39.3 L, MCV 86.4, MCH 27.7, MCHC 32.1, RDW Std Deviation 51.8 H, RDW Coeff of Micheal 17.5 H, Plt Count 397, MPV 9.9, Immature Gran % (Auto) 2.200 H, Neut % (Auto) 81.0 H, Lymph % (Auto) 8.9 L, [place] % (Auto) 7.4, Eos % (Auto) 0.3, Baso % (Auto) 0.2, Absolute Neuts (auto) 11.0 H, Absolute Lymphs (auto) 1.21, Nucleated RBC % 0.1, Sodium 129 L, Potassium 5.2 H, Chloride 93 L, Carbon Dioxide 13.3 L, Anion Gap 23 H, B UN 100 H, Creatinine 6.10 H, Estim Creat Clear Calc 11.15 L, Est GFR (MDRD) Non- Af 8 L, BUN/Creatinine Ratio 16.4, Glucose 125 H, Calcium 8.5 08/29/25 06:47: POC Glucose 123 H 08/29/25 09:43: PT 42.5 H, INR 4.3 H* Micro: Microbiology 08/28/25 11:27 Mucosa - Nose SARS-CoV-2, Influenza & RSV (PCR) - Final Imaging Radiology Impression Venous Doppler Study 08/28/25 11:28 Interpretation Summary Deep veins of the left upper extremity are patent and compressible segmentally. There is no evidence of deep vein thrombosis. The superficial veins of the left upper extremity, the basilic and cephalic veins, are patent and compressible. There is no evidence of left upper extremity superficial thrombophlebitis involving the veins imaged. Ordering Physician: Edward Farr Referring Physician: Jayesh Raphael Performed By: Elisa Astudillo RDCS, RVT ??? Chest X-Ray 08/28/25 12:25 IMPRESSION: Interstitial edema with bilateral pleural effusions and bibasilar atelectasis. Follow-up recommended to ensure resolution Reading Location: [id number] Charges/Coding Visit Charges Inpatient E&M: 71376 Init Hosp L2
--- NOTE | 2025-08-29 12:25 | EX.PCM.CON.G ---
HPI Consult Data Date of Consult: 08/29/25 HPI Narrative HPI Narrative: RAYA MCNAIR, is a 85 M who presented to the hospital from TCU with shortness of breath and fatigue. He has a past medical history of atrial fibrillation on Eliquis, DM2, HTN, CAD, CHF complicated by bilateral pleural effusions status post thoracentesis presents from TCU for ERYN and shortness of breath. His symptoms have worsened over the past week. Patient reports increased shortness of breath with minimal exertion, orthopnea requiring several pillows, and bilateral lower extremity swelling that does not improve with rest. Denies chest pain, fever, or recent changes in medications. ?A chest X-ray revealed large bilateral pleural effusions. Symptoms have worsened despite at-home diuretic therapy. On review of systems, the patient's family reports a change in mental status, including increased confusion and lethargy. No prior history of severe liver disease is known. Since being transferred back to the hospital he was discovered to be in acute kidney injury with a history of chronic kidney disease stage III possibly secondary to type 2 diabetes and hypertension. I was asked to see the patient for possibly underlying cirrhosis because his INR went up to 4 with abnormal imaging. There was a small amount of free fluid seen adjacent to the liver and adjacent to the spleen. This was on CT scan abdomen pelvis. CT/Abdomen/Pelvis without Cont IMPRESSION: There is no renal stone or hydronephrosis. There is a 1.3 cm pericardial effusion. There is a large and left pleural effusion measuring 6 cm in depth. There is a 1.2 cm right adrenal nodule, Hounsfield units = 27. There is a 3.8 cm left renal cyst. There is free fluid in the abdomen measuring 4 cm adjacent to the liver, 1.2 cm at the spleen. Chest X-ray:?Confirms large bilateral pleural effusions and potential cardiomegaly. Echocardiogram:?Ejection fraction is 65% with severe bilateral atrial enlargement. Abdominal Doppler Ultrasound:?Not available to assesses for signs of liver congestion, such as enlargement of the hepatic veins and inferior vena cava, and rule out other causes of liver injury. Labs: Liver Function Tests:?Increased AST, ALT, and alkaline phosphatase. These reflect hepatocellular damage and cholestasis from venous congestion. Coagulation Panel:?Severely elevated INR (e.g., >3.0) with a normal platelet count. This points to impaired hepatic synthesis of clotting factors. Renal Function:?Elevated BUN and creatinine, consistent with acute kidney injury (ERYN). [facility] Medical History Atrial fibrillation Hyperlipidemia Skin cancer Pneumonia Heart disease Gastrointestinal problem Gall stones Cataract Bone fracture Allergies Type 2 diabetes mellitus Hypertension Celiac disease Anxiety Coronary artery disease Hypertension Atherosclerotic heart disease of [place] coronary artery without angina pectoris Home Medications ?Medication ?Instructions ?Recorded ?Last Taken ?Type aspirin 81 mg tablet,delayed 81 mg PO DAILY@0800 heart health 03/18/21 08/23/25 History release cholecalciferol (vitamin D3) 50 4,000 unit PO DAILY SUPPLEMENT 03/18/21 03/18/21 History mcg (2,000 unit) capsule vit C 250 mg-vit E 90 mg-zinc 40 1 cap PO BID EYE HEALTH 03/18/21 03/18/21 History mg-copper 1 [id number]-[id number] capsule atorvastatin 40 mg tablet 40 mg PO QHS cholesterol #90 tabs 04/11/21 08/22/25 Rx isosorbide mononitrate 30 mg 30 mg PO DAILY BP #90 tabs 04/11/21 Unknown Rx tablet,extended release 24 hr vitamin E mixed 400 unit capsule 400 unit PO DAILY supplement 02/16/22 Unknown History montelukast 10 mg tablet 10 mg PO QHS breathing 10/19/23 08/22/25 History valsartan 320 mg tablet 320 mg PO DAILY BP 10/19/23 08/22/25 History tamsulosin 0.4 mg capsule 0.4 mg PO BID BPH 12/26/24 08/23/25 History famotidine 20 mg tablet 20 mg PO DAILY GERD #90 tabs 01/15/25 08/23/25 Rx dulaglutide 3 mg/0.5 mL 3 mg (0.5 mL) subcut QWEEK SOB #2 06/28/25 Unknown Rx subcutaneous pen injector mL (Trulicity) metformin 500 mg tablet,extended 500 mg PO DAILY Blood Glucose 06/28/25 Unknown History release 24 hr apixaban 5 mg tablet (Eliquis) 5 mg PO BID Blood thinner #180 tabs 07/12/25 08/23/25 Rx amiodarone 200 mg tablet 200 mg PO DAILY BP #30 tabs 08/02/25 08/23/25 Rx metoprolol succinate 50 mg 50 mg PO DAILY BP #90 tabs 08/02/25 08/23/25 Rx tablet,extended release 24 hr diltiazem HCl 120 mg 120 mg PO QHS BP 08/17/25 Unknown History capsule,extended release 24 hr furosemide 40 mg tablet (Lasix) 40 mg PO DAILY Fluid retention #30 08/23/25 Unknown Rx tabs Allergy/AdvReac Type Severity Reaction Status Date / Time gluten AdvReac upset Verified 08/28/25 10:45 stomach/diarrhea lactose AdvReac upset Verified 08/28/25 10:45 stomach/diarrhea Family History Mother Thyroid disorder Father Myocardial infarction Hypertension Heart disease Surgical History Hx of melanoma excision History of cholecystectomy Presence of coronary angioplasty implant and graft (~04/03/21) Presence of stent in coronary artery (~04/03/21) Social History household members: none Smoking Status: Former smoker how long ago did patient quit smokin years ago alcohol intake: current alcohol intake frequency: holidays/special occasions only substance use type: does not use caffeine: Yes Type: coffee Number of servings: 2 and tea Number of servings: 1 what type of physical activity do you participate in: other details: cardio frequency: 3-4 times per week ROS Constitutional Constitutional: Denies fatigue, fever(s), poor appetite, weight gain or weight loss Gastrointestinal Gastrointestinal: Denies belching, bloating, change in bowel habits, change in stool character, chewing difficulty, coffee ground emesis, constipation, cramping, diarrhea, dyspepsia, dysphagia, early satiety, excessive flatus, fecal incontinence, heartburn, hematemesis, hematochezia, hemorrhoids, loose stools, melena, nausea, odynophagia, rectal bleeding, tenesmus, vomiting or weight changes Physical Exam Narrative Alert awake oriented x 3 no obvious distress no pallor no icterus no JVD s1s2 no murmurs lungs clear abdomen soft no organomegaly +++ edema no cyanosis vargas + Lab / Micro Data 08/29/25 05:20 08/29/25 05:20 Labs: Laboratory Results - last 24 hr 08/28/25 12:56: Urine Color Yellow, Urine Clarity Sl. Cloudy, Urine pH 5.0, Ur Specific [place] 1.025, Urine Protein 100 H, Urine Glucose (UA) Normal, Urine Ketones Negative, Urine Occult Blood 10 H, Urine Nitrite Positive H, Urine Bilirubin 1 H, Urine Urobilinogen 1 H, Ur Leukocyte Esterase 25 H, Urine RBC 0 SEEN, Urine WBC 0-5 SEEN, Ur Squamous Epith Cells 0 SEEN, Urine Bacteria RARE, Urine Mucus 0 SEEN, Urine Yeast RARE 08/28/25 13:50: Troponin T Hi Sens 2 Hr 61 H* 08/28/25 15:50: POC Glucose 114 H 08/28/25 18:42: Troponin T High Sens 69 H* 08/29/25 02:13: APTT > 200.0 H* 08/29/25 05:20: WBC 13.6 H, RBC 4.55 L, Hgb 12.6 L, Hct 39.3 L, MCV 86.4, MCH 27.7, MCHC 32.1, RDW Std Deviation 51.8 H, RDW Coeff of Micheal 17.5 H, Plt Count 397, MPV 9.9, Immature Gran % (Auto) 2.200 H, Neut % (Auto) 81.0 H, Lymph % (Auto) 8.9 L, [place] % (Auto) 7.4, Eos % (Auto) 0.3, Baso % (Auto) 0.2, Absolute Neuts (auto) 11.0 H, Absolute Lymphs (auto) 1.21, Nucleated RBC % 0.1, Sodium 129 L, Potassium 5.2 H, Chloride 93 L, Carbon Dioxide 13.3 L, Anion Gap 23 H, BUN 100 H, Creatinine 6.10 H, Estim Creat Clear Calc 11.15 L, Est GFR (MDRD) Non-Af 8 L, BUN/Creatinine Ratio 16.4, Glucose 125 H, Calcium 8.5 08/29/25 06:47: POC Glucose 123 H 08/29/25 09:43: PT 42.5 H, INR 4.3 H* Micro: Microbiology 08/28/25 11:27 Mucosa - Nose SARS-CoV-2, Influenza & RSV (PCR) - Final Imaging Radiology Impression Venous Doppler Study 08/28/25 11:28 Interpretation Summary Deep veins of the left upper extremity are patent and compressible segmentally. There is no evidence of deep vein thrombosis. The superficial veins of the left upper extremity, the basilic and cephalic veins, are patent and compressible. There is no evidence of left upper extremity superficial thrombophlebitis involving the veins imaged. Ordering Physician: Edward Farr Referring Physician: Jayesh Raphael Performed By: Elisa Astudillo, RDCS, RVT ??? Chest X-Ray 08/28/25 12:25 IMPRESSION: Interstitial edema with bilateral pleural effusions and bibasilar atelectasis. Follow-up recommended to ensure resolution Reading Location: [id number] Assessment & Plan Assessment/Plan (1) Hepatopathy: (2) Fatty liver disease, nonalcoholic: PLAN: 85-year-old with CHF and bilateral pleural effusions with multi-organ dysfunction syndrome (MODS) involving acute liver failure and acute kidney injury. The constellation of severe CHF with elevated central venous pressures, acute liver injury, coagulopathy, and ERYN strongly suggests?Acute Cardiogenic Liver Injury, also known as shock liver, precipitated by profound cardiac decompensation. His calculated fib 4 score is 2.2 and that is associated with moderate liver fibrosis but not cirrhosis. Differential Diagnosis Acute Cardiogenic Liver Injury/Shock Liver:?The primary and most likely diagnosis. Occurs due to inadequate blood flow and oxygen delivery to the liver secondary to heart failure exacerbation, causing hepatocellular damage. The coagulopathy is due to the liver's synthetic failure. The ERYN is likely due to the systemic hypoperfusion, a hepatorenal mechanism (HRS-ERYN), or both. Congestive Hepatopathy:?Hepatic venous congestion due to heart failure leads to elevated liver enzymes and severely impaired synthetic function . Given the normal platelets, a primary liver process or coagulopathy is less likely. [id number] Liver Failure :?While the patient has no previous history of severe liver disease, subclinical chronic liver injury (e.g., from long-standing CHF, nonalcoholic fatty liver disease from diabetes) can be unmasked by an acute decompensation. ACLF is characterized by acute decompensation of chronic liver disease with multi-organ failure. Disseminated Intravascular Coagulation :?Less likely given the normal platelet count. DIC is a consumptive coagulopathy that also involves low platelets. The severe coagulopathy seen is more characteristic of liver synthetic failure. Sepsis with Multi-Organ Failure:?A systemic infection can trigger MODS in the elderly. Sepsis can cause shock, leading to ACLI and ERYN. Plan Monitor:?Serial vitals, labs (including electrolytes, liver function tests, and coagulation studies), and fluid status closely. Hemodynamics:?Optimize cardiac function and support blood pressure to improve hepatic and renal perfusion. This may require inotropes or vasopressors. Renal Support:?Continue hemodialysis for management of ERYN and fluid overload. Coagulopathy:?Administer Vitamin K and fresh frozen plasma to correct the severe coagulopathy, particularly if active bleeding is present or for pre-procedural management. Investigate Etiology: Rule out infectious causes with blood and urine cultures. Consider holding or adjusting medications that could contribute to liver or kidney injury, such as diuretics or anticoagulants. Fluid Management: Managed by nephrology and primary team. Charges/Coding Visit Charges Inpatient E&M: 72952 Init [facility] L3
--- NOTE | 2025-08-29 12:28 | EX.PCM.CONCC ---
Assessment & Plan Assessment/Plan (1) Acute heart failure with preserved ejection fraction (HFpEF): PLAN: Plan RECOMMENDATIONS: 1. Supplemental oxygen to maintain saturations at or above 90%. 2. Timing for initiation of dialysis per nephrology. 3. If indicated, Levophed can be initiated to maintain a mean arterial pressure at or above 65 mmHg. 4. Recommend limited echocardiogram to follow-up on pericardial effusion noted during last admission. IMPRESSIONS: 1. Shortness of breath and hypoxemia Likely related to acute decompensated heart failure with radiographic evidence of pulmonary edema and pleural effusions. However, the patient is relatively stable from a respiratory perspective on minimal supplemental O2. Recommend volume optimization via dialysis, as clinically indicated. Continue supplemental oxygen to maintain saturations at or above 90%. 2. Borderline hypotension The patient has baseline systolic blood pressures in the 90s typically. I have a low index of suspicion for underlying infection. I would avoid unnecessary fluid resuscitation given the patient's volume overloaded status. If the patient is in need of hemodynamic support, Levophed will be initiated. 3. Acute kidney injury Exact precipitating etiology is not entirely clear. Nephrology is currently following to assist with medical management. There is a high degree of suspicion that the patient will require dialysis. However, I did speak with nephrology, who indicated that there is no urgent need for dialysis today. Therefore, general surgery is planning for dialysis catheter placement tomorrow after the patient's coagulopathy has been addressed to minimize bleeding risk. 4. History of paroxysmal atrial fibrillation/diabetes mellitus/hyperlipidemia/coronary artery disease Complicates care, management, recovery and prognosis. Consider holding home Cardizem dose due to borderline hemodynamics. Remainder of care as noted above. This note was generated with Handprint dictation software. It may contain incorrect words, spelling, and punctuation that were not noted in checking the note before signing. HPI Consult Data Date of Consult: 08/29/25 HPI Narrative Reason for Consultation: Hypotension HPI Narrative: The patient is an 85-year-old male, with a history as outlined below, who presented to the emergency department from the transitional care unit on August 28 with complaints of dyspnea. The patient has a known history of atrial fibrillation on Eliquis, coronary artery disease, heart failure with preserved ejection fraction, hypertension and diabetes mellitus. The patient was last discharged from the hospital on August 24 after having been admitted with decompensated heart failure and symptomatic pleural effusions, for which the patient underwent thoracentesis on August 20. Echocardiogram during that hospitalization demonstrated a pericardial effusion but no evidence of tamponade. On presentation to the emergency department, the patient was noted to be afebrile with a blood pressure of 104/68 mmHg. Laboratory evaluation was notable for a white blood cell count of 13,000. Hemoglobin and platelet count were stable. Chemistry profile was notable for a bicarbonate of 16 with an anion gap of 22 and creatinine of 5.35. On August 24, the patient was noted to have a creatinine of 1.63. AST and ALT were mildly increased at 166 and 241, respectively. Troponin was elevated at 67 with a BNP of 5800. A left upper extremity Doppler study was completed which showed no evidence of DVT. Chest x-ray demonstrated stigmata of congestive heart failure with bilateral pleural effusions. It should be noted that the patient has a baseline blood pressure in the 90-100 systolic range. This morning, the patient was seen in consultation by nephrology who indicated the possible need for dialysis. General surgery had already been consulted for temporary HD catheter placement. However, in light of the patient's coagulopathy, the decision was made to forego line placement until tomorrow allowing for the patient's coagulopathy to be addressed to minimize bleeding risk. In the meantime, the patient was placed in the medical intensive care unit to allow for close hemodynamic monitoring. [facility] Medical History Atrial fibrillation Hyperlipidemia Skin cancer Pneumonia Heart disease Gastrointestinal problem Gall stones Cataract Bone fracture Allergies Type 2 diabetes mellitus Hypertension Celiac disease Anxiety Coronary artery disease Hypertension Atherosclerotic heart disease of [place] coronary artery without angina pectoris Home Medications ?Medication ?Instructions ?Recorded ?Last Taken ?Type aspirin 81 mg tablet,delayed 81 mg PO DAILY@0800 [facility] 03/18/21 08/23/25 History release cholecalciferol (vitamin D3) 50 4,000 unit PO DAILY SUPPLEMENT 03/18/21 03/18/21 History mcg (2,000 unit) capsule vit C 250 mg-vit E 90 mg-zinc 40 1 cap PO BID [facility] 03/18/21 03/18/21 History mg-copper 1 [id number] capsule atorvastatin 40 mg tablet 40 mg PO QHS cholesterol #90 tabs 04/11/21 08/22/25 Rx isosorbide mononitrate 30 mg 30 mg PO DAILY BP #90 tabs 04/11/21 Unknown Rx tablet,extended release 24 hr vitamin E mixed 400 unit capsule 400 unit PO DAILY supplement 02/16/22 Unknown History montelukast 10 mg tablet 10 mg PO QHS breathing 10/19/23 08/22/25 History valsartan 320 mg tablet 320 mg PO DAILY BP 10/19/23 08/22/25 History tamsulosin 0.4 mg capsule 0.4 mg PO BID BPH 12/26/24 08/23/25 History famotidine 20 mg tablet 20 mg PO DAILY GERD #90 tabs 01/15/25 08/23/25 Rx dulaglutide 3 mg/0.5 mL 3 mg (0.5 mL) subcut QWEEK SOB #2 06/28/25 Unknown Rx subcutaneous pen injector mL (Trulicity) metformin 500 mg tablet,extended 500 mg PO DAILY Blood Glucose 06/28/25 Unknown History release 24 hr apixaban 5 mg tablet (Eliquis) 5 mg PO BID Blood thinner #180 tabs 07/12/25 08/23/25 Rx amiodarone 200 mg tablet 200 mg PO DAILY BP #30 tabs 08/02/25 08/23/25 Rx metoprolol succinate 50 mg 50 mg PO DAILY BP #90 tabs 08/02/25 08/23/25 Rx tablet,extended release 24 hr diltiazem HCl 120 mg 120 mg PO QHS BP 08/17/25 Unknown History capsule,extended release 24 hr furosemide 40 mg tablet (Lasix) 40 mg PO DAILY Fluid retention #30 08/23/25 Unknown Rx tabs Allergy/AdvReac Type Severity Reaction Status Date / Time gluten AdvReac upset Verified 08/28/25 10:45 stomach/diarrhea lactose AdvReac upset Verified 08/28/25 10:45 stomach/diarrhea Family History Mother Thyroid disorder Father Myocardial infarction Hypertension Heart disease Surgical History Hx of melanoma excision History of cholecystectomy Presence of coronary angioplasty implant and graft (~04/03/21) Presence of stent in coronary artery (~04/03/21) Social History household members: none Smoking Status: Former smoker how long ago did patient quit smokin years ago alcohol intake: current alcohol intake frequency: holidays/special occasions only substance use type: does not use caffeine: Yes Type: coffee Number of servings: 2 and tea Number of servings: 1 what type of physical activity do you participate in: other details: cardio frequency: 3-4 times per week ROS ROS Narrative 10 systems were reviewed with pertinent positives as noted in the HPI above. Physical Exam Const alert, oriented x3 and no apparent distress General Appearance: cooperative HEENT normocephalic and head/scalp atraumatic Eyes PERRL, EOMs intact bilaterally and conjunctivae normal Neck supple General: trachea midline Chest inspection of chest normal Resp normal respiratory effort Auscultation: diminished lung sounds; Negative for rales, rhonchi or wheezes Cardio regular rate and regular rhythm GI normal to inspection, nondistended, normoactive bowel sounds Extremity General Extremity: clubbing and edema bilateral lower extremity Skin no rashes or lesions noted Neuro CN's II-XII intact bilaterally, moves all extremities and no focal motor deficits Psych cooperative and affect normal Lab / Micro Data 08/29/25 05:20 08/29/25 05:20 Labs: Laboratory Results - last 24 hr 08/28/25 12:56: Urine Color Yellow, Urine Clarity Sl. Cloudy, Urine pH 5.0, Ur Specific [place] 1.025, Urine Protein 100 H, Urine Glucose (UA) Normal, Urine Ketones Negative, Urine Occult Blood 10 H, Urine Nitrite Positive H, Urine Bilirubin 1 H, Urine Urobilinogen 1 H, Ur Leukocyte Esterase 25 H, Urine RBC 0 SEEN, Urine WBC 0-5 SEEN, Ur Squamous Epith Cells 0 SEEN, Urine Bacteria RARE, Urine Mucus 0 SEEN, Urine Yeast RARE 08/28/25 13:50: Troponin T Hi Sens 2 Hr 61 H* 08/28/25 15:50: POC Glucose 114 H 08/28/25 18:42: Troponin T High Sens 69 H* 08/29/25 02:13: APTT > 200.0 H* 08/29/25 05:20: WBC 13.6 H, RBC 4.55 L, Hgb 12.6 L, Hct 39.3 L, MCV 86.4, MCH 27.7, MCHC 32.1, RDW Std Deviation 51.8 H, RDW Coeff of Micheal 17.5 H, Plt Count 397, MPV 9.9, Immature Gran % (Auto) 2.200 H, Neut % (Auto) 81.0 H, Lymph % (Auto) 8.9 L, [place] % (Auto) 7.4, Eos % (Auto) 0.3, Baso % (Auto) 0.2, Absolute Neuts (auto) 11.0 H, Absolute Lymphs (auto) 1.21, Nucleated RBC % 0.1, Sodium 129 L, Potassium 5.2 H, Chloride 93 L, Carbon Dioxide 13.3 L, Anion Gap 23 H, BUN 100 H, Creatinine 6.10 H, Estim Creat Clear Calc 11.15 L, Est GFR (MDRD) Non-Af 8 L, BUN/Creatinine Ratio 16.4, Glucose 125 H, Calcium 8.5 08/29/25 06:47: POC Glucose 123 H 08/29/25 09:43: PT 42.5 H, INR 4.3 H* Micro: Microbiology 08/28/25 11:27 Mucosa - Nose SARS-CoV-2, Influenza & RSV (PCR) - Final Imaging Radiology Impression Venous Doppler Study 08/28/25 11:28 Interpretation Summary Deep veins of the left upper extremity are patent and compressible segmentally. There is no evidence of deep vein thrombosis. The superficial veins of the left upper extremity, the basilic and cephalic veins, are patent and compressible. There is no evidence of left upper extremity superficial thrombophlebitis involving the veins imaged. Ordering Physician: Edward Farr Referring Physician: Jayesh Raphael Performed By: Elisa Astudillo, ADRIANO, RVT ??? Chest X-Ray 08/28/25 12:25 IMPRESSION: Interstitial edema with bilateral pleural effusions and bibasilar atelectasis. Follow-up recommended to ensure resolution Reading Location: [id number] Charges/Coding Visit Charges Inpatient E&M: 68925 Init Hosp L3
[2025-08-29] MEDS: Cholecalciferol (VIT D3) 25 MCG TABLET (1,000 UNITS) 100 MCG PO (12:44)
[2025-08-29] MEDS: 0.9% Saline Lock 10 ML Syringe IV ×2 (12:48→14:32)
--- NOTE | 2025-08-29 12:50 | RAD_ITS ---
PROCEDURE: CXR FOR LINE PLACEMENT 08/29/2025 REASON FOR EXAM: PICC LINE PLACED TECHNIQUE: Procedure Code: RADCXRLP Modality: DX Procedure: CXR FOR LINE PLACEMENT COMPARISON: None FINDINGS: There is mild cardiomegaly with normal pulmonary vasculature. The lungs are clear however there is a small left-sided pleural effusion. Mild degenerative changes are present. Others: Interval placement of left-sided PICC with the tip not well visualized however likely projects over the atrial caval junction. RAD/CXR for Line Placement IMPRESSION: Small left-sided pleural effusion. Satisfactory placement of left-sided PICC. Reading Location: [place] [id number]
[2025-08-29] MEDS: Phytonadione (Vit K) 10 MG in 0.9% Normal Saline (50mL Bag) 50 ML 150 MG IV (12:57)
--- NOTE | 2025-08-29 14:53 | PN_ITS ---
Subjective Subjective Patient seen and examined with his nurse by his bedside. He was lying comfortably in bed today and had no active complaints. His daughter and were by his bedside. He had no active complaints. Heparin drip discontinued this morning preparation for dialysis as patient's creatinine has gone up to 6.1. He is making very little urine and blood pressure still remains low. Decision made to transfer patient to ICU as a precaution due to his blood pressure still running low as he may require initiation of vasopressors. He was given a boluses of fluid but because he is barely making urine he wants the risk of getting fluid overloaded also. He remains on 2 L of oxygen. Potassium today is 5.3. Objective Data Objective Data Vital Signs: Vital Signs Temp Pulse Resp BP Pulse Ox O2 Del Method O2 Flow Rate 96.3 F L 75 15 84/67 L 95 Nasal Cannula 3 08/29/25 12:08 08/29/25 13:00 08/29/25 13:00 08/29/25 13:00 08/29/25 13:00 08/29/25 13:00 08/29/25 13:00 Oxygen Flow Rate (L/min) 3 Oxygen Delivery Method Nasal Cannula Weight: 249 lb 1.957 oz Body Mass Index (BMI) 35.7 Intake & Output: Intake and Output for Last 24 Hours 08/27/25 08/28/25 08/29/25 23:59 23:59 23:59 Intake Total 850 / 850 977.28 / 977.28 Output Total 0 / 0 0 / 0 Balance 850 / 850 977.28 / 977.28 Lab / Micro Data 08/29/25 05:20 08/29/25 05:20 Labs: Laboratory Results - last 24 hr 08/28/25 15:50: POC Glucose 114 H 08/28/25 18:42: Troponin T High Sens 69 H* 08/29/25 02:13: APTT > 200.0 H* 08/29/25 05:20: WBC 13.6 H, RBC 4.55 L, Hgb 12.6 L, Hct 39.3 L, MCV 86.4, MCH 27.7, MCHC 32.1, RDW Std Deviation 51.8 H, RDW Coeff of Micheal 17.5 H, Plt Count 397, MPV 9.9, Immature Gran % (Auto) 2.200 H, Neut % (Auto) 81.0 H, Lymph % (Auto) 8.9 L, [place] % (Auto) 7.4, Eos % (Auto) 0.3, Baso % (Auto) 0.2, Absolute Neuts (auto) 11.0 H, Absolute Lymphs (auto) 1.21, Nucleated RBC % 0.1, Sodium 129 L, Potassium 5.2 H, Chloride 93 L, Carbon Dioxide 13.3 L, Anion Gap 23 H, B UN 100 H, Creatinine 6.10 H, Estim Creat Clear Calc 11.15 L, Est GFR (MDRD) Non- Af 8 L, BUN/Creatinine Ratio 16.4, Glucose 125 H, Calcium 8.5 08/29/25 06:47: POC Glucose 123 H 08/29/25 09:43: PT 42.5 H, INR 4.3 H* 08/29/25 12:26: Blood Type O POSITIVE, Antibody Screen NEGATIVE 08/29/25 13:17: POC Glucose 122 H Micro: Microbiology 08/28/25 11:27 Mucosa - Nose SARS-CoV-2, Influenza & RSV (PCR) - Final Radiography Diagnostic Testing: Radiology Impression Venous Doppler Study 08/28/25 11:28 Interpretation Summary Deep veins of the left upper extremity are patent and compressible segmentally. There is no evidence of deep vein thrombosis. The superficial veins of the left upper extremity, the basilic and cephalic veins, are patent and compressible. There is no evidence of left upper extremity superficial thrombophlebitis involving the veins imaged. Ordering Physician: Edward Farr Referring Physician: Jayesh Raphael Performed By: Elisa Astudillo, ADRIANO, RVT ??? Chest X-Ray 08/29/25 12:50 IMPRESSION: Small left-sided pleural effusion. Satisfactory placement of left-sided PICC. Reading Location: [place] [id number] Physical Exam Const alert, oriented x3 and no apparent distress Constitutional Narrative: frail, weak General Appearance: cooperative HEENT normocephalic, head/scalp atraumatic, hearing grossly normal bilaterally and moist oral mucous membranes Eyes conjunctivae normal Neck supple Resp Resp Narrative: still has Moderately diminished breath sounds bibasilarly. No wheezes or crackles. On 2 L of oxygen which is his baseline. Cardio regular rate, regular rhythm, S1 normal heart sound, S2 normal heart sound and no murmurs GI normal to inspection, nondistended, normoactive bowel sounds, soft to palpation, non-tender and non-distended Extremity Extremity Narrative: Left upper extremity edematous and oozing fluid. Nontender. Bilateral 1+ lower extremity edema. Neuro oriented x3, moves all extremities and no focal motor deficits Sensorium / Orientation: awake and alert Motor Exam: strength 5/5 throughout Psych affect normal Appearance: appropriate Assessment & Plan Assessment/Plan (1) ERYN (acute kidney injury): PLAN: Plan #ERYN on CKD * Creatinine has trended up even further today to 6.1 from 5.35 on admission. He is having very minimal urine output. * He is clinically fluid overloaded and chest x-ray did show evidence of bilateral pleural effusions. Blood pressure however still continues to run low. * Discussed with nephrology today and plan is to commence dialysis. General surgery consulted for dialysis catheter insertion. * Patient's INR elevated at over 4 today. Liver enzymes also elevated. He did have CT of the abdomen and pelvis done on 08/27/2025 which showed that the liver was normal as per radiology read. * Gastroenterology consulted on account of the elevated liver enzymes and the elevated INR. IV vitamin K 10 mg x 1 ordered. Per general surgery, do not give the vitamin K today and place temporary dialysis catheter in the OR tomorrow. * Patient's potassium is 5.2, and sodium is 129. Bicarb is 13.3 and anion gap is 23. I did discuss with nephrology about whether patient needed urgent dialysis but per nephrology, since general surgery will be putting in the catheter tomorrow there is no emergent need for dialysis now. * Patient transferred to the ICU. PICC line inserted for initiation of vasopressors as needed. * #Shock * Possibly cardiogenic. Blood pressure down in the 80s and 70s systolic. Patient given boluses of IV fluid but he is making very little urine. * Patient transferred to the ICU out of an abundance of precaution due to concerns that patient may need vasopressor support. PICC line inserted in the ICU. Critical care consulted. * #Probable UTI: * Urinalysis showed elevated nitrites and leukocyte esterase but no bacteria. Urine cultures pending. * On IV ceftriaxone. Blood cultures ordered #Hyponatremia: * Sodium is 129 today. This is chronic and is likely related to the fluid overload. Should improve as kidney function improves likely with dialysis #Anion gap metabolic acidosis in the setting of ERYN on CKD * Likely due to uremia. BUN is 94. Anion gap is 23 with bicarb of 13.3. Nephrology consulted. Management as per nephrology. * * #Acute exacerbation of heart failure preserved ejection fraction: * BNP is 5779. However this is in light of the ERYN on CKD so this may be due to poor clearance of the BMP and not really due to acute heart failure. * He is on his baseline 2 L of oxygen but does appear clinically fluid overloaded with evidence of bilateral pleural effusions and edema * Diuretics held due to ERYN on CKD. Blood pressure also running low. * Will monitor closely. Commencement of dialysis to help with fluid removal. * Will order thoracentesis for the bilateral pleural effusion 2. * #Elevated liver enzymes with supratherapeutic INR * Liver enzymes were elevated though total bilirubin is normal. INR was 2.8 yesterday and is now over 4. * APTT also markedly elevated. Heparin drip discontinued. * Gastroenterology consulted. Patient given IV vitamin K 10 mg x 1 today. * As stated above CT of the abdomen and pelvis done on 08/27/2025 was read as normal liver. Follow-up with GI evaluation. * #History of paroxysmal A-fib: On amiodarone and Cardizem as well as metoprolol. Will hold these in light of hypotension #Type 2 diabetes mellitus. Oral meds on hold. Insulin sliding scale. Accu-Cheks ACHS. #Hyperlipidemia: On statin #CAD s/p PCI in 2020: On aspirin and valsartan as well as statin. Metoprolol held. #History of nodular thyroid: Not seen per imaging. Thyroid function was normal. Follow-up on outpatient basis with PCP #History of BPH: Flomax DVT prophylaxis: * Not indicated as INR supratherapeutic. CODE STATUS: * DNRCCA no intubation Charges/Coding Visit Charges Inpatient E&M: 82640 [facility] Hosp L3
[2025-08-29 15:08] LABS: Partial Thromboplast Time 36.4 Seconds (24.1-36.2)
[2025-08-29 15:33] LABS: AST(SGOT) 447 U/L (<=37); Alanine Aminotransfer ALT/SGPT 523 U/L (<=46); Albumin, Serum 3.3 g/dL (3.4-4.8); Alkaline Phosphatase 380 U/L (40-129); Bilirubin, Direct 0.68 mg/dL (0.00-0.30); Globulin 2.7 g/dL (2.2-4.2)
--- NOTE | 2025-08-29 15:33 | CHAPLAIN ---
Type of Pastoral Visit _x__ Initial Visit ___ Follow-up Visit ___ On-call Visit ___ General Patient Visit ___ Spiritual Assessment ___ Family Conference ___ Bereavement ___ Rapid Response ___ Code Blue ___ Other (describe below) Pastoral Care Referral From _x__ Patient _x__ Family ___ Nurse ___ Physician ___ Cotton Seed Culler ___ Dust Puller ___ Other (describe below) Sacrament/Intervention _x__ Active listening ___ Anointing ___ Judaism ___ Bereavement ___ Communion ___ Lauren exploration ___ _x__ Life review _x__ Prayer ___ Reconciliation ___ Sacrament of Sick _x__ Supportive presence ___ Wedding ___ Other (describe below) Pastoral Comments patient and two children are present in the room; pt is alert and states that he would like to get out of the hospital; pt acknowledges that his health has declined and that he will need more interventions; pt says that 'we are working on a plan for the next place and dialysis'; pt and family are offered presence and prayer which is accepted
[2025-08-29] MEDS: Norepinephrine 8 MG in 0.9% Normal Saline (250mL Bag) 242 ML 9.4 MG CONT INF (23:10)
[2025-08-30] VITALS (51 sets, daily range): BP systolic 77–139; BP diastolic 25–112; PULSE 93–129; RESP 13–26; TEMP 35.8–36.8; O2SAT 90–100; BMI 35.9; BMI 35.4
[2025-08-30 03:10] LABS: Hematocrit 40.3 % (40-54); Hemoglobin 12.8 g/dL (13.0-16.5); Immature Granulocytes Count 0.530 X10^3/uL (0.0-0.0); Mean Corp Hgb Conc 31.8 g/dL (32-36); Mean Corpuscular Volume 85.0 fL (80-94); Mean Platelet Vol. 9.6 fl (6.2-12.0); NRBC Flagged by Analyzer 0.3 % (0-5); Platelet Count 411 K/mm3 (150-450); RBC Distribution Width CV 18.5 % (11.6-14.6); RBC Distribution Width SD 51.2 fl (35.1-43.9); Red Blood Count 4.74 M/mm3 (4.6-6.2); White Blood Count 14.6 K/mm3 (4.4-11.0)
[2025-08-30 03:25] LABS: AST(SGOT) 532 U/L (<=37); Alanine Aminotransfer ALT/SGPT 634 U/L (<=46); Albumin, Serum 3.2 g/dL (3.4-4.8); Alkaline Phosphatase 455 U/L (40-129); Anion Gap 21 (5-15); BUN 105 mg/dL (4-19); BUN/Creat Ratio 15.6 RATIO (10-20); Bilirubin, Direct 0.82 mg/dL (0.00-0.30); Calcium,Total 8.4 mg/dL (7.6-11.0); Carbon Dioxide 14.6 mmol/L (21.0-32.0); Chloride 91 mmol/L (98-108); Estimated Creatinine Clearance 10.10 ml/min (50-250); Globulin 2.7 g/dL (2.2-4.2); Glucose 121 mg/dL (70-99); Potassium 4.6 mmol/L (3.3-5.1)
[2025-08-30 03:27] LABS: Prothrombin Time (Protime)PT. 27.2 SECONDS (11.7-14.9)
--- NOTE | 2025-08-30 08:25 | PN.CC_ITS ---
Assessment & Plan Assessment/Plan (1) Acute heart failure with preserved ejection fraction (HFpEF): PLAN: Plan RECOMMENDATIONS: 1. Supplemental oxygen to maintain saturations at or above 90%. 2. Timing for initiation of dialysis per nephrology. 3. Levophed, if needed, to maintain hemodynamic stability. IMPRESSIONS: 1. Shortness of breath and hypoxemia Likely related to acute decompensated heart failure with radiographic evidence of pulmonary edema and pleural effusions. However, the patient is relatively stable from a respiratory perspective on minimal supplemental O2. Recommend volume optimization via dialysis, as clinically indicated. Continue supplemental oxygen to maintain saturations at or above 90%. 2. Borderline hypotension The patient has baseline systolic blood pressures in the 90s typically. I have a low index of suspicion for underlying infection. I would avoid unnecessary fluid resuscitation given the patient's volume overloaded status. If the patient is in need of hemodynamic support, Levophed will be initiated. 3. Acute kidney injury Exact precipitating etiology is not entirely clear. Nephrology is currently following to assist with medical management. There are plans to proceed with temporary HD catheter placement today, after which time, the patient will be placed on dialysis. 4. History of paroxysmal atrial fibrillation/diabetes mellitus/hyperlipidemia/coronary artery disease Complicates care, management, recovery and prognosis. Continue to hold home Cardizem dose due to borderline hemodynamics. Remainder of care as noted above. This note was generated with [employer] dictation software. It may contain incorrect words, spelling, and punctuation that were not noted in checking the note before signing. Subjective Subjective The patient was seen and examined at the bedside this morning. Events from the last 24 hours have been reviewed. The patient is currently afebrile and hemodynamically stable on low-dose Levophed. The patient has no specific complaints this morning. White blood cell count was noted to be 14,000. INR has improved to 2.5. There are now plans to proceed with temporary HD catheter placement this morning at the bedside by general surgery. Objective Data Objective Data The patient's most recent lab work, culture data and imaging studies have all been personally reviewed. Blood and urine cultures are pending. Vital Signs: Vital Signs Temp Pulse Resp BP Pulse Ox O2 Del Method O2 Flow Rate 97.2 F L 106 H 18 128/112 H 100 Nasal Cannula 2 08/30/25 03:00 08/30/25 07:00 08/30/25 07:00 08/30/25 07:00 08/30/25 07:00 08/30/25 07:00 08/30/25 07:00 Oxygen Flow Rate (L/min) 2 Oxygen Delivery Method Nasal Cannula Weight: 250 lb 3.594 oz Body Mass Index (BMI) 35.9 Intake & Output: Intake and Output for Last 24 Hours 08/28/25 08/29/25 08/30/25 23:59 23:59 23:59 Intake Total 850 / 850 1135.90 / 1196.68 126.58 / 126.58 Output Total 0 / 0 5 / 5 Balance 850 / 850 1130.90 / 1191.68 126.58 / 126.58 Lab / Micro Data Attestation: I reviewed the patient's lab results. 08/30/25 02:57 08/30/25 02:57 Labs: Laboratory Results - last 24 hr 08/28/25 21:39: POC Glucose 107 H 08/29/25 09:43: PT 42.5 H, INR 4.3 H* 08/29/25 12:26: Blood Type O POSITIVE, Antibody Screen NEGATIVE 08/29/25 13:17: POC Glucose 122 H 08/29/25 14:40: APTT 36.4 H, Total Bilirubin 0.99, Direct Bilirubin 0.68 H, AST 447 H, ALT 523 H, Alkaline Phosphatase 380 H, Total Protein 6.0, Albumin 3.3 L, Globulin 2.7 08/29/25 16:06: POC Glucose 116 H 08/29/25 20:29: POC Glucose 114 H 08/30/25 02:57: WBC 14.6 H, RBC 4.74, Hgb 12.8 L, Hct 40.3, MCV 85.0, MCH 27.0, MCHC 31.8 L, RDW Std Deviation 51.2 H, RDW Coeff of Micheal 18.5 H, Plt Count 411, MPV 9.6, Immature Gran % (Auto) 3.600 H, Neut % (Auto) 77.9 H, Lymph % (Auto) 10.1 L, [place] % (Auto) 7.3, Eos % (Auto) 0.4, Baso % (Auto) 0.7, Absolute Neuts (auto) 11.4 H, Absolute Lymphs (auto) 1.47, Nucleated RBC % 0.3, PT 27.2 H, INR 2.5, Sodium 127 L, Potassium 4.6, Chloride 91 L, Carbon Dioxide 14.6 L, Anion Gap 21 H, BUN 105 H*, Creatinine 6.73 H, Estim Creat Clear Calc 10.10 L, Est GFR (MDRD) Non-Af 7 L, BUN/Creatinine Ratio 15.6, Glucose 121 H, Calcium 8.4, Total Bilirubin 1.16, Direct Bilirubin 0.82 H, AST 532 H, ALT 634 H, Alkaline Phosphatase 455 H, Total Protein 5.9, Albumin 3.2 L, Globulin 2.7 Micro: Microbiology 08/28/25 11:27 Mucosa - Nose SARS-CoV-2, Influenza & RSV (PCR) - Final Radiography Diagnostic Testing: Radiology Impression Echocardiogram 08/29/25 11:55 Interpretation Summary Normal LV size. Left ventricular systolic function is normal. The left ventricular ejection fraction is 45 %. Small (<1.0 cm) pericardial effusion. Ordering Physician: Gautam Barnes Performed By: Edward Sim RCS Chest X-Ray 08/29/25 12:50 IMPRESSION: Small left-sided pleural effusion. Satisfactory placement of left-sided PICC. Reading Location: [place] [id number] Physical Exam Const alert, oriented x3 and no apparent distress General Appearance: cooperative HEENT normocephalic and head/scalp atraumatic Eyes PERRL, EOMs intact bilaterally and conjunctivae normal Neck supple General: trachea midline Chest inspection of chest normal Resp normal respiratory effort Auscultation: diminished lung sounds; Negative for rales, rhonchi or wheezes Cardio regular rate and regular rhythm GI normal to inspection, nondistended, normoactive bowel sounds Extremity General Extremity: clubbing and edema bilateral lower extremity Skin no rashes or lesions noted Neuro CN's II-XII intact bilaterally, moves all extremities and no focal motor deficits Psych cooperative and affect normal Charges/Coding Visit Charges Inpatient E&M: 03548 Subs Hosp L3
--- NOTE | 2025-08-30 10:20 | CASEMGMT ---
Social Work Pt admitted from TCU. Due to need for dialysis, pt cannot return to TCU. Rolanda in TCU notified. HANH Gracia
--- NOTE | 2025-08-30 10:50 | RAD_ITS ---
PROCEDURE: CXR FOR LINE PLACEMENT 08/30/2025 REASON FOR EXAM: TEMP DIALYSIS LINE PLACEMENT TECHNIQUE: Procedure Code: RADCXRLP Modality: DX Procedure: CXR FOR LINE PLACEMENT COMPARISON: None FINDINGS: Satisfactory appearance of a left sided PICC line, tip is in the distal SVC. Right IJ catheter tip also in the distal SVC no complications. Lungs are normally expanded, there is lingular atelectasis with small left pleural effusion. Right lung is free of a superimposed process. Heart and mediastinum normal Mild degenerative changes in the thoracic spine RAD/CXR for Line Placement IMPRESSION: Satisfactory appearance of the left-sided PICC line and right IJ central venous catheter Lingular atelectasis with small effusion Reading Location: [id number]
--- NOTE | 2025-08-30 11:14 | PCM.PN.SRG ---
Subjective Subjective Patient evaluated resting comfortably in bed. He denies any questions or concerns this morning. He is agreeable to have the temporary dialysis catheter placed. Patient was placed on levophed overnight. Objective Data Objective Data Vital Signs: Vital Signs Temp Pulse Resp BP Pulse Ox O2 Del Method O2 Flow Rate 96.5 F L 102 H 16 104/74 98 Nasal Cannula 2 08/30/25 08:00 08/30/25 10:45 08/30/25 10:00 08/30/25 10:45 08/30/25 10:00 08/30/25 10:00 08/30/25 10:00 Oxygen Flow Rate (L/min) 2 Oxygen Delivery Method Nasal Cannula Weight: 250 lb 3.594 oz Body Mass Index (BMI) 35.9 Intake & Output: Intake and Output for Last 24 Hours 08/28/25 08/29/25 08/30/25 23:59 23:59 23:59 Intake Total 850 / 850 1135.90 / 1196.68 159.95 / 159.95 Output Total 0 / 0 5 / 5 0 / 0 Balance 850 / 850 1130.90 / 1191.68 159.95 / 159.95 Lab / Micro Data 08/30/25 02:57 08/30/25 02:57 Labs: Laboratory Results - last 24 hr 08/28/25 21:39: POC Glucose 107 H 08/29/25 12:26: Blood Type O POSITIVE, Antibody Screen NEGATIVE 08/29/25 13:17: POC Glucose 122 H 08/29/25 14:40: APTT 36.4 H, Total Bilirubin 0.99, Direct Bilirubin 0.68 H, AST 447 H, ALT 523 H, Alkaline Phosphatase 380 H, Total Protein 6.0, Albumin 3.3 L, Globulin 2.7 08/29/25 16:06: POC Glucose 116 H 08/29/25 20:29: POC Glucose 114 H 08/30/25 02:57: WBC 14.6 H, RBC 4.74, Hgb 12.8 L, Hct 40.3, MCV 85.0, MCH 27.0, MCHC 31.8 L, RDW Std Deviation 51.2 H, RDW Coeff of Micheal 18.5 H, Plt Count 411, MPV 9.6, Immature Gran % (Auto) 3.600 H, Neut % (Auto) 77.9 H, Lymph % (Auto) 10.1 L, [place] % (Auto) 7.3, Eos % (Auto) 0.4, Baso % (Auto) 0.7, Absolute Neuts (auto) 11.4 H, Absolute Lymphs (auto) 1.47, Nucleated RBC % 0.3, PT 27.2 H, INR 2.5, Sodium 127 L, Potassium 4.6, Chloride 91 L, Carbon Dioxide 14.6 L, Anion Gap 21 H, BUN 105 H*, Creatinine 6.73 H, Estim Creat Clear Calc 10.10 L, Est GFR (MDRD) Non-Af 7 L, BUN/Creatinine Ratio 15.6, Glucose 121 H, Calcium 8.4, Total Bilirubin 1.16, Direct Bilirubin 0.82 H, AST 532 H, ALT 634 H, Alkaline Phosphatase 455 H, Total Protein 5.9, Albumin 3.2 L, Globulin 2.7 08/30/25 09:32: POC Glucose 114 H Micro: Microbiology 08/28/25 11:48 Urine, Catheterized Urine Culture - Final Culture exhibits no growth. 08/28/25 11:27 Mucosa - Nose SARS-CoV-2, Influenza & RSV (PCR) - Final Radiography Diagnostic Testing: Radiology Impression Echocardiogram 08/29/25 11:55 Interpretation Summary Normal LV size. Left ventricular systolic function is normal. The left ventricular ejection fraction is 45 %. Small (<1.0 cm) pericardial effusion. Ordering Physician: Gautam Barnes Performed By: Edward Sim RCS Chest X-Ray 08/29/25 12:50 IMPRESSION: Small left-sided pleural effusion. Satisfactory placement of left-sided PICC. Reading Location: [place] [id number] Chest X-Ray 08/30/25 10:50 IMPRESSION: Satisfactory appearance of the left-sided PICC line and right IJ central venous catheter Lingular atelectasis with small effusion Reading Location: [id number] Assessment & Plan Assessment/Plan (1) ERYN (acute kidney injury): PLAN: I am following this patient in conjunction with Dr. Miller. He has independently evaluated this patient. Labs reviewed. INR is 2.[address] temporary dialysis catheter at bedside Will cancel OR time for today Patient may have a diet from surgical standpoint, as long as no other intervention is planned for today Dialysis to be initiated today We will continue to monitor this patient Charges/Coding Visit Charges Inpatient E&M: 30508 [facility] Hosp L1
[2025-08-30] MEDS: TITRATION PARAMETER CHANGE 1 EACH IV (11:16)
--- NOTE | 2025-08-30 11:26 | PCM.OPRPT ---
Operative Report (Standard) Operative Information Date of Procedure: 08/30/25 Pre-Operative Diagnosis: Acute kidney injury and volume overload with CHF exacerbation Post-Operative Diagnosis: Same Surgery/Procedure Performed: Ultrasound-guided placement of right nontunneled hemodialysis catheter pole peeler: No Type of Anesthesia: Local RN Documented Start/Stop Times: Operation Date: 08/30/25 14:00 <No data on this case meets the specified criteria> Procedure Start Time: 10:00 Procedure Stop Time: 10:25 Select all DRAINS/GRAFTS/IMPLANTS that apply: Implanted device (Mahurkar acute dual-lumen catheter) Implanted device details: 12 Iranian by 16 cm Estimated Blood Loss: 10 Specimen collected: No Description of surgery: Procedure name: Insertion of temporary hemodialysis catheter (12 Iranian X 16cm straight) Procedure detail: After obtaining consent from patient's family patient was positioned in Trendelenburg to facilitate filling of the central veins of the neck. The head was positioned to the left to allow access to the right neck. The right internal jugular vein was localized using bedside ultrasound. It appeared to be widely patent and flow is detected with color Doppler. Then the neck was sterilely prepped and draped. A formal timeout was conducted to confirm patient and procedure. The procedure was begun as the superficial tissues of the neck were then anesthetized with a local block using 1% mL lidocaine (a total volume of 6 mL was used for the procedure). Under direct ultrasound guidance the vein was accessed with return of dark red blood. Using a Seldinger technique a guidewire was placed without difficulty. The guidewire tract was then opened at the skin with an 11 blade and serially dilated. Then the hemodialysis catheter was inserted into the vein. Both ports aspirated and flushed with ease. To maintain patency, 5 mL injectable saline were used to lock each port. The catheter was then sewn in using 0 silk in 2-point fixation. Insertion site was cleaned and a chlorhexidine dressing was placed about the catheter to maintain sterility. A post procedure chest x-ray was obtained to verify the position of the catheter and exclude pneumothorax. Surgical Findings: ? Patent right internal jugular vein ? Postprocedure x-ray showing catheter tip terminating in the distal SVC Complications Complications: No
[2025-08-30] MEDS: PureFlow B 2K Dialysis Soln 1 BAG 6 BAG PF (11:35)
[2025-08-30] MEDS: 0.9% Normal Saline 1,000 ML IV.SOLN. 1000 ML OPERA.SITE ×2 (11:35→14:28)
[2025-08-30] MEDS: 0.9% Saline Lock 10 ML Syringe IV ×3 (11:36→20:23)
--- NOTE | 2025-08-30 11:49 | PN_ITS ---
Subjective Subjective Patient seen and examined. He was lying calmly in bed and had no active complaints. He was transferred to the ICU yesterday due to persistent hypotension and started on vasopressors. He also received 10 mg of IV vitamin K yesterday. General surgery was by his bedside and he is to have the temporary dialysis catheter inserted today. Patient remains tachypneic and tachycardic but he is on the 2 L of oxygen still. Objective Data Objective Data Vital Signs: Vital Signs Temp Pulse Resp BP Pulse Ox O2 Del Method O2 Flow Rate 98.2 F 123 H 21 H 101/81 H 94 Nasal Cannula 2 08/30/25 11:07 08/30/25 11:45 08/30/25 11:45 08/30/25 11:45 08/30/25 11:07 08/30/25 11:45 08/30/25 11:45 Oxygen Flow Rate (L/min) 2 Oxygen Delivery Method Nasal Cannula Weight: 250 lb 3.594 oz Body Mass Index (BMI) 35.9 Intake & Output: Intake and Output for Last 24 Hours 08/28/25 08/29/25 08/30/25 23:59 23:59 23:59 Intake Total 850 / 850 1135.90 / 1196.68 167.48 / 167.48 Output Total 0 / 0 5 / 5 0 / 0 Balance 850 / 850 1130.90 / 1191.68 167.48 / 167.48 Lab / Micro Data 08/30/25 02:57 08/30/25 02:57 Labs: Laboratory Results - last 24 hr 08/28/25 21:39: POC Glucose 107 H 08/29/25 12:26: Blood Type O POSITIVE, Antibody Screen NEGATIVE 08/29/25 13:17: POC Glucose 122 H 08/29/25 14:40: APTT 36.4 H, Total Bilirubin 0.99, Direct Bilirubin 0.68 H, AST 447 H, ALT 523 H, Alkaline Phosphatase 380 H, Total Protein 6.0, Albumin 3.3 L, Globulin 2.7 08/29/25 16:06: POC Glucose 116 H 08/29/25 20:29: POC Glucose 114 H 08/30/25 02:57: WBC 14.6 H, RBC 4.74, Hgb 12.8 L, Hct 40.3, MCV 85.0, MCH 27.0, MCHC 31.8 L, RDW Std Deviation 51.2 H, RDW Coeff of Micheal 18.5 H, Plt Count 411, MPV 9.6, Immature Gran % (Auto) 3.600 H, Neut % (Auto) 77.9 H, Lymph % (Auto) 10.1 L, [place] % (Auto) 7.3, Eos % (Auto) 0.4, Baso % (Auto) 0.7, Absolute Neuts (auto) 11.4 H, Absolute Lymphs (auto) 1.47, Nucleated RBC % 0.3, PT 27.2 H, INR 2.5, Sodium 127 L, Potassium 4.6, Chloride 91 L, Carbon Dioxide 14.6 L, Anion Gap 21 H, BUN 105 H*, Creatinine 6.73 H, Estim Creat Clear Calc 10.10 L, Est GFR (MDRD) Non-Af 7 L, BUN/Creatinine Ratio 15.6, Glucose 121 H, Calcium 8.4, Total Bilirubin 1.16, Direct Bilirubin 0.82 H, AST 532 H, ALT 634 H, Alkaline Phosphatase 455 H, Total Protein 5.9, Albumin 3.2 L, Globulin 2.7 08/30/25 09:32: POC Glucose 114 H Micro: Microbiology 08/28/25 11:48 Urine, Catheterized Urine Culture - Final Culture exhibits no growth. 08/28/25 11:27 Mucosa - Nose SARS-CoV-2, Influenza & RSV (PCR) - Final Radiography Diagnostic Testing: Radiology Impression Echocardiogram 08/29/25 11:55 Interpretation Summary Normal LV size. Left ventricular systolic function is normal. The left ventricular ejection fraction is 45 %. Small (<1.0 cm) pericardial effusion. Ordering Physician: Gautam Barnes Performed By: Edward Sim RCS Chest X-Ray 08/29/25 12:50 IMPRESSION: Small left-sided pleural effusion. Satisfactory placement of left-sided PICC. Reading Location: [facility] Chest X-Ray 08/30/25 10:50 IMPRESSION: Satisfactory appearance of the left-sided PICC line and right IJ central venous catheter Lingular atelectasis with small effusion Reading Location: [facility] Physical Exam Const alert, oriented x3 and no apparent distress Constitutional Narrative: remains frail, weak General Appearance: cooperative HEENT normocephalic, head/scalp atraumatic, hearing grossly normal bilaterally and moist oral mucous membranes Eyes PERRL and conjunctivae normal Neck supple Resp Resp Narrative: still has Moderately diminished breath sounds bibasilarly. No wheezes or crackles. On 2 L of oxygen which is his baseline. Effort and Inspection: tachypneic Cardio regular rhythm, S1 normal heart sound, S2 normal heart sound and no murmurs Cardio Narrative: tachycardic GI normal to inspection, nondistended, normoactive bowel sounds, soft to palpation, non-tender and non-distended Extremity Extremity Narrative: Left upper extremity edema is improving. Nontender. Bilateral 1+ lower extremity edema. Neuro oriented x3, moves all extremities and no focal motor deficits Sensorium / Orientation: awake and alert Motor Exam: general weakness Psych affect normal Appearance: appropriate Assessment & Plan Assessment/Plan (1) ERYN (acute kidney injury): PLAN: Plan #ERYN on CKD * Creatinine has trended up even further today to 6.73 from 5.35 on admission. He is having very minimal urine output. * He is clinically fluid overloaded and chest x-ray did show evidence of bilateral pleural effusions. Blood pressure however still continues to run low. * Discussed with nephrology today and plan is to commence dialysis. General surgery consulted for dialysis catheter insertion. * Patient's INR elevated at over 4 today. Liver enzymes also elevated. He did have CT of the abdomen and pelvis done on 08/27/2025 which showed that the liver was normal as per radiology read. * Gastroenterology consulted on account of the elevated liver enzymes and the elevated INR. IV vitamin K 10 mg x 1 ordered. Per general surgery, do not give the vitamin K today and place temporary dialysis catheter in the OR tomorrow. * Potassium today is 4.6. However BUN is 105. * Having temporary dialysis catheter inserted by general surgery today and patient to be commenced on dialysis today. * #Shock * Possibly cardiogenic though likely multifactorial. Blood pressure down in the 80s and 70s systolic. Patient given boluses of IV fluid but he is making very little urine. * Patient transferred to the ICU out of an abundance of precaution due to concerns that patient may need vasopressor support. PICC line inserted in the ICU. Critical care consulted. * Patient now on Levophed. Titrate to maintain MAP of more than 65. * #Probable UTI: * Urinalysis showed elevated nitrites and leukocyte esterase but no bacteria. Urine cultures showed no growth. * On IV ceftriaxone. Blood cultures ordered and pending. #Hyponatremia: * Sodium is 127 today. This is chronic and is likely related to the fluid overload. Should improve as kidney function improves likely with dialysis #Anion gap metabolic acidosis in the setting of ERYN on CKD * Likely due to uremia. BUN is 94. Anion gap is 21 with bicarb of 14.6 Nephrology on board. Management as per nephrology. * * #Acute exacerbation of heart failure preserved ejection fraction: * BNP is 5779. However this is in light of the ERYN on CKD so this may be due to poor clearance of the BMP and not really due to acute heart failure. * He is on his baseline 2 L of oxygen but does appear clinically fluid overloaded with evidence of bilateral pleural effusions and edema * Diuretics held due to ERYN on CKD. Blood pressure also running low. * Will monitor closely. Commencement of dialysis to help with fluid removal. * Will order thoracentesis for the bilateral pleural effusion 2. * #Elevated liver enzymes with supratherapeutic INR * Liver enzymes were elevated though total bilirubin is normal. INR is 2.5 today after receiving the vitamin K. * APTT also markedly elevated. Heparin drip discontinued. * Gastroenterology consulted. Patient given IV vitamin K 10 mg x 1 today. * As stated above CT of the abdomen and pelvis done on 08/27/2025 was read as normal liver. Follow-up with GI evaluation. * AST and ALT as well as ALP of all trended upwards today though total bilirubin is still normal. * #History of paroxysmal A-fib: On amiodarone and Cardizem as well as metoprolol. Will hold these in light of hypotension #Type 2 diabetes mellitus. Oral meds on hold. Insulin sliding scale. Accu-Cheks ACHS. #Hyperlipidemia: On statin #CAD s/p PCI in 2020: On aspirin and valsartan as well as statin. Metoprolol held. #History of nodular thyroid: Not seen per imaging. Thyroid function was normal. Follow-up on outpatient basis with PCP #History of BPH: Flomax DVT prophylaxis: * Not indicated as INR is 2.5 CODE STATUS: * DNRCCA no intubation Charges/Coding Visit Charges Inpatient E&M: 62369 Subs Hosp L3
--- NOTE | 2025-08-30 11:50 | PCM.PN.REN ---
Objective Data Objective Data Vital Signs: Vital Signs Temp Pulse Resp BP Pulse Ox O2 Del Method O2 Flow Rate 98.2 F 123 H 21 H 101/81 H 94 Nasal Cannula 2 08/30/25 11:07 08/30/25 11:45 08/30/25 11:45 08/30/25 11:45 08/30/25 11:07 08/30/25 11:45 08/30/25 11:45 Oxygen Flow Rate (L/min) 2 Oxygen Delivery Method Nasal Cannula Weight: 113.5 kg Body Mass Index (BMI) 35.9 Intake & Output: Intake and Output for Last 24 Hours 08/28/25 08/29/25 08/30/25 23:59 23:59 23:59 Intake Total 850 / 850 1135.90 / 1196.68 167.48 / 167.48 Output Total 0 / 0 5 / 5 0 / 0 Balance 850 / 850 1130.90 / 1191.68 167.48 / 167.48 Lab / Micro Data 08/30/25 02:57 08/30/25 02:57 Labs: Laboratory Results - last 24 hr 08/28/25 21:39: POC Glucose 107 H 08/29/25 12:26: Blood Type O POSITIVE, Antibody Screen NEGATIVE 08/29/25 13:17: POC Glucose 122 H 08/29/25 14:40: APTT 36.4 H, Total Bilirubin 0.99, Direct Bilirubin 0.68 H, AST 447 H, ALT 523 H, Alkaline Phosphatase 380 H, Total Protein 6.0, Albumin 3.3 L, Globulin 2.7 08/29/25 16:06: POC Glucose 116 H 08/29/25 20:29: POC Glucose 114 H 08/30/25 02:57: WBC 14.6 H, RBC 4.74, Hgb 12.8 L, Hct 40.3, MCV 85.0, MCH 27.0, MCHC 31.8 L, RDW Std Deviation 51.2 H, RDW Coeff of Micheal 18.5 H, Plt Count 411, MPV 9.6, Immature Gran % (Auto) 3.600 H, Neut % (Auto) 77.9 H, Lymph % (Auto) 10.1 L, [place] % (Auto) 7.3, Eos % (Auto) 0.4, Baso % (Auto) 0.7, Absolute Neuts (auto) 11.4 H, Absolute Lymphs (auto) 1.47, Nucleated RBC % 0.3, PT 27.2 H, INR 2.5, Sodium 127 L, Potassium 4.6, Chloride 91 L, Carbon Dioxide 14.6 L, Anion Gap 21 H, BUN 105 H*, Creatinine 6.73 H, Estim Creat Clear Calc 10.10 L, Est GFR (MDRD) Non-Af 7 L, BUN/Creatinine Ratio 15.6, Glucose 121 H, Calcium 8.4, Total Bilirubin 1.16, Direct Bilirubin 0.82 H, AST 532 H, ALT 634 H, Alkaline Phosphatase 455 H, Total Protein 5.9, Albumin 3.2 L, Globulin 2.7 08/30/25 09:32: POC Glucose 114 H Micro: Microbiology 08/28/25 11:48 Urine, Catheterized Urine Culture - Final Culture exhibits no growth. 08/28/25 11:27 Mucosa - Nose SARS-CoV-2, Influenza & RSV (PCR) - Final Radiography Diagnostic Testing: Radiology Impression Echocardiogram 08/29/25 11:55 Interpretation Summary Normal LV size. Left ventricular systolic function is normal. The left ventricular ejection fraction is 45 %. Small (<1.0 cm) pericardial effusion. Ordering Physician: Gautam Barnes Performed By: Edward Sim RCS Chest X-Ray 08/29/25 12:50 IMPRESSION: Small left-sided pleural effusion. Satisfactory placement of left-sided PICC. Reading Location: [facility] Chest X-Ray 08/30/25 10:50 IMPRESSION: Satisfactory appearance of the left-sided PICC line and right IJ central venous catheter Lingular atelectasis with small effusion Reading Location: [facility] Physical Exam Narrative Alert awake oriented x 3 no obvious distress no JVD s1s2 no murmurs lungs clear abdomen soft +++ edema no cyanosis vargas + Non-tunneled temporary hemodialysis catheter right IJ access for dialysis Assessment & Plan Assessment/Plan (1) ERYN (acute kidney injury): PLAN: Prior to this last admission in July, his baseline creatinine was normal less than 1. During recent hospital admission, he was diuresed with IV Lasix. Creatinine slowly increased to around 1.3-1.5 range. Discharge creatinine was around 1.5, to be expected from diuresis and other ongoing events. Sudden increase in creatinine over the weekend, worsening. He is essentially anuric. No contrast studies. Medications oro, he was continued on appropriate CHF therapy. He did receive some IV fluids without much response. No hydronephrosis on imaging studies. Only difference that I could see was the drop in blood pressure compared to previous admission. He does not look septic, WBC count is only slightly elevated. Blood cultures are pending. At this time infection suspicion is low as per my discussion with hospitalist. Presumably this is decompensated heart failure/cardiorenal syndrome. To rule out autoimmune pathology, will send serologies. If no identifiable etiology, we may need to do a kidney biopsy - 08/30/2025; SCr up to 6.73 today, BUN 105. Patient essentially anuric. Temporary HD catheter placed today and patient undergoing iHD over 3hr, 2kbath and attempting ~2L fluid removal as patient and bp tolerates. Patient on IV Levophed and can titrate if needed for better systolic blood pressure for fluid removal. History of A-fib, oral meds on hold, being started on amiodarone drip. Will plan for dialysis again tomorrow with fluid removal as patient/blood pressure tolerates. Renal serologies pending. Discussed nephrology plan with patient, questions answered. Assessment and plan reviewed with Dr. Guerra.
[2025-08-30] MEDS: Amiodarone 150 MG in Dextrose 5%-Water (100mL Bag) 100 ML 600 MG IV BOLUS (12:20)
[2025-08-30] MEDS: Amiodarone 360 MG in Dextrose 5% Viaflo Bag 192.8 ML 33.3 MG CONT INF (12:31)
[2025-08-30 13:41] LABS: Hepatitis B Surface Antigen Nonreactive (Nonreactive)
--- NOTE | 2025-08-30 14:02 | CASEMGMT ---
HepB antigen has resulted nonreactive. At this time, a referral has been made to [facility] via the [facility]. to send vascular access documentation once available.
[2025-08-30] MEDS: Cholecalciferol (VIT D3) 25 MCG TABLET (1,000 UNITS) 100 MCG PO (14:26)
[2025-08-30] MEDS: 0.9% Normal Saline (250mL Bag) 250 ML 15 ML IV (14:39)
[2025-08-30] MEDS: Multivitamin (Healthy Eyes) Capsule 1 CAP PO (17:41)
[2025-08-30] MEDS: Amiodarone 360 MG in Dextrose 5% Viaflo Bag 192.8 ML 16.7 MG CONT INF (19:05)
[2025-08-30] MEDS: Norepinephrine 8 MG in 0.9% Normal Saline (250mL Bag) 242 ML 18.8 MG CONT INF (19:07)
[2025-08-31] VITALS (48 sets, daily range): BP systolic 72–123; BP diastolic 36–104; PULSE 91–110; RESP 13–24; TEMP 36.1–36.3; O2SAT 90–100; BMI 35.6
[2025-08-31] MEDS: Norepinephrine 8 MG in 0.9% Normal Saline (250mL Bag) 242 ML 37.5 MG CONT INF (04:40)
[2025-08-31 05:18] LABS: Hematocrit 41.9 % (40-54); Hemoglobin 13.1 g/dL (13.0-16.5); Immature Granulocytes Count 0.510 X10^3/uL (0.0-0.0); Mean Corp Hgb Conc 31.3 g/dL (32-36); Mean Corpuscular Volume 85.9 fL (80-94); Mean Platelet Vol. 9.1 fl (6.2-12.0); NRBC Flagged by Analyzer 0.5 % (0-5); Platelet Count 330 K/mm3 (150-450); RBC Distribution Width CV 19.0 % (11.6-14.6); RBC Distribution Width SD 51.8 fl (35.1-43.9); Red Blood Count 4.88 M/mm3 (4.6-6.2); White Blood Count 17.6 K/mm3 (4.4-11.0)
[2025-08-31 05:57] LABS: AST(SGOT) 1828 U/L (<=37); Alanine Aminotransfer ALT/SGPT 1766 U/L (<=46); Albumin, Serum 3.2 g/dL (3.4-4.8); Alkaline Phosphatase 478 U/L (40-129); Anion Gap 22 (5-15); BUN 83 mg/dL (4-19); BUN/Creat Ratio 13.9 RATIO (10-20); Bilirubin, Direct 0.85 mg/dL (0.00-0.30); Calcium,Total 8.4 mg/dL (7.6-11.0); Carbon Dioxide 13.6 mmol/L (21.0-32.0); Chloride 90 mmol/L (98-108); Estimated Creatinine Clearance 11.41 ml/min (50-250); Globulin 2.6 g/dL (2.2-4.2); Glucose 229 mg/dL (70-99); Potassium 4.6 mmol/L (3.3-5.1)
[2025-08-31 06:03] LABS: Prothrombin Time (Protime)PT. 28.0 SECONDS (11.7-14.9)
--- NOTE | 2025-08-31 07:25 | PCM.PN.INT ---
Assessment & Plan Assessment/Plan (1) Acute heart failure with preserved ejection fraction (HFpEF): PLAN: Plan RECOMMENDATIONS: 1. Supplemental oxygen to maintain saturations at or above 90%. 2. Dialysis support per nephrology recommendations. 3. Levophed to maintain a mean arterial pressure at or above 65 mmHg. 4. Continue midodrine. 5. Continue amiodarone as ordered. IMPRESSIONS: 1. Shortness of breath and hypoxemia Likely related to acute decompensated heart failure with radiographic evidence of pulmonary edema and pleural effusions. However, the patient is relatively stable from a respiratory perspective on minimal supplemental O2. Recommend volume optimization via dialysis, as clinically indicated. Continue supplemental oxygen to maintain saturations at or above 90%. 2. Multifactorial shock The patient has baseline systolic blood pressures in the 90s typically. I have a low index of suspicion for underlying infection. I would avoid unnecessary fluid resuscitation given the patient's volume overloaded status. In order to facilitate ongoing dialysis support and volume optimization, Levophed will be continued to maintain hemodynamic stability. 3. Acute kidney injury Exact precipitating etiology is not entirely clear. Nephrology is currently following to assist with medical management. Continue ongoing dialysis support per nephrology recommendations. 4. History of paroxysmal atrial fibrillation/diabetes mellitus/hyperlipidemia/coronary artery disease Complicates care, management, recovery and prognosis. Continue to hold home Cardizem dose due to borderline hemodynamics. Remainder of care as noted above. TIME: 32 minutes of critical care time, independent of procedures, was spent addressing the patient's shortness of breath and hypoxemia, multifactorial shock, acute kidney injury, review of all data and collaboration with care team. Subjective Subjective The patient was seen and examined at the bedside this morning. Events from the last 24 hours have been reviewed. The patient is currently afebrile and hemodynamically stable on Levophed. The patient tolerated dialysis yesterday with 1.7 L of fluid removed. He does report that he has a poor appetite. In speaking with nephrology, there are plans to transition the patient to CRRT today secondary to his hemodynamic instability. White blood cell count is elevated at 17,000. Objective Data Objective Data The patient's most recent lab work, culture data and imaging studies have all been personally reviewed. Blood and urine cultures have not demonstrated any growth to date. Vital Signs: Vital Signs Temp Pulse Resp BP Pulse Ox O2 Del Method O2 Flow Rate 97.0 F L 107 H 18 103/74 99 Nasal Cannula 2 08/30/25 21:00 08/31/25 06:00 08/31/25 06:00 08/31/25 06:00 08/31/25 06:00 08/31/25 06:00 08/31/25 06:00 Oxygen Flow Rate (L/min) 2 Oxygen Delivery Method Nasal Cannula Weight: 248 lb 7.375 oz Body Mass Index (BMI) 35.6 Intake & Output: Intake and Output for Last 24 Hours 08/29/25 08/30/25 08/31/25 23:59 23:59 23:59 Intake Total 1135.90 / 1196.68 840.64 / 859.44 245.43 / 245.43 Output Total 1700 / 1700 0 / 0 Balance 1130.90 / 1191.68 -859.36 / -840.56 245.43 / 245.43 Lab / Micro Data Attestation: I reviewed the patient's lab results. 08/31/25 05:11 08/31/25 05:11 Labs: Laboratory Results - last 24 hr 08/30/25 09:32: POC Glucose 114 H 08/30/25 12:10: Hep Bs Antigen Nonreactive 08/30/25 12:29: POC Glucose 107 H 08/30/25 17:17: POC Glucose 134 H 08/30/25 20:20: POC Glucose 141 H 08/31/25 05:11: WBC 17.6 H, RBC 4.88, Hgb 13.1, Hct 41.9, MCV 85.9, MCH 26.8 L, MCHC 31.3 L, RDW Std Deviation 51.8 H, RDW Coeff of Micheal 19.0 H, Plt Count 330, MPV 9.1, Immature Gran % (Auto) 2.900 H, Neut % (Auto) 84.8 H, Lymph % (Auto) 4.8 L, [place] % (Auto) 6.8, Eos % (Auto) 0.1, Baso % (Auto) 0.6, Absolute Neuts (auto) 14.9 H, Absolute Lymphs (auto) 0.85, Nucleated RBC % 0.5, PT 28.0 H, INR 2.6, Sodium 125 L, Potassium 4.6, Chloride 90 L, Carbon Dioxide 13.6 L, Anion Gap 22 H, BUN 83 H, Creatinine 5.95 H, Estim Creat Clear Calc 11.41 L, Est GFR (MDRD) Non-Af 9 L, BUN/Creatinine Ratio 13.9, Glucose 229 H, Calcium 8.4, Total Bilirubin 1.22, Direct Bilirubin 0.85 H, AST 1828 H, ALT 1766 H, Alkaline Phosphatase 478 H, Total Protein 5.8 L, Albumin 3.2 L, Globulin 2.6 Micro: Microbiology 08/28/25 11:48 Urine, Catheterized Urine Culture - Final Culture exhibits no growth. 08/28/25 11:27 Mucosa - Nose SARS-CoV-2, Influenza & RSV (PCR) - Final Radiography Diagnostic Testing: Radiology Impression Chest X-Ray 08/30/25 10:50 IMPRESSION: Satisfactory appearance of the left-sided PICC line and right IJ central venous catheter Lingular atelectasis with small effusion Reading Location: [facility] Physical Exam Const alert, oriented x3 and no apparent distress General Appearance: cooperative HEENT normocephalic and head/scalp atraumatic Eyes PERRL, EOMs intact bilaterally and conjunctivae normal Neck supple General: trachea midline and CVC in place Chest inspection of chest normal Resp normal respiratory effort Auscultation: diminished lung sounds; Negative for rales, rhonchi or wheezes Cardio regular rate and regular rhythm GI normal to inspection, nondistended, normoactive bowel sounds Extremity General Extremity: clubbing and edema bilateral lower extremity Skin no rashes or lesions noted Neuro CN's II-XII intact bilaterally, moves all extremities and no focal motor deficits Psych cooperative and affect normal Charges/Coding Procedures Hospitalists Procedures: 69872 Critical Care 1st Hr
[2025-08-31] MEDS: Amiodarone 360 MG in Dextrose 5% Viaflo Bag 192.8 ML 16.7 MG CONT INF ×2 (08:05→20:10)
[2025-08-31] MEDS: Multivitamin (Healthy Eyes) Capsule 1 CAP PO (08:07)
--- NOTE | 2025-08-31 10:57 | CASEMGMT ---
[facility] quality management coordinator calls this KIESHA HIGUERA stating that the pt has been cleared to start OP HD at [facility] projected for next Wednesday. The schedule states MWF 2:30PM ESD 09/05- 30 mins early for paperwork. KIESHA HIGUERA to the pt room at this time and updated. Pt thanks this mortgage loan underwriter. Pt also notified that the SNF referral will be made after PT has evaluated the pt. Pt states understanding and denies further questions or concerns. DPA plans to initiate referral process once PT is able to eval. CM to follow.
[2025-08-31] MEDS: Norepinephrine 8 MG in 0.9% Normal Saline (250mL Bag) 242 ML 28.1 MG CONT INF (11:42)
--- NOTE | 2025-08-31 13:49 | PN_ITS ---
Subjective Subjective Patient seen and examined. Patient complained of feeling weak and was worn out by the dialysis session he had yesterday. Patient remains on Levophed. He was also started on amiodarone drip from account of A-fib with RVR. He denied any pain, any fever or chills, any palpitations or dizziness, no nausea or vomiting. Review of systems otherwise negative. Objective Data Objective Data Vital Signs: Vital Signs Temp Pulse Resp BP Pulse Ox O2 Del Method O2 Flow Rate 97.0 F L 102 H 18 93/61 95 Room Air 2 08/31/25 09:00 08/31/25 12:15 08/31/25 12:15 08/31/25 12:15 08/31/25 12:15 08/31/25 12:15 08/31/25 06:00 Oxygen Flow Rate (L/min) 2 Oxygen Delivery Method Room Air Weight: 248 lb 7.375 oz Body Mass Index (BMI) 35.6 Intake & Output: Intake and Output for Last 24 Hours 08/29/25 08/30/25 08/31/25 23:59 23:59 23:59 Intake Total 1135.90 / 1196.68 840.64 / 859.44 687.77 / 687.77 Output Total 1700 / 1700 0 / 0 Balance 1130.90 / 1191.68 -859.36 / -840.56 687.77 / 687.77 Lab / Micro Data 08/31/25 05:11 08/31/25 05:11 Labs: Laboratory Results - last 24 hr 08/30/25 17:17: POC Glucose 134 H 08/30/25 20:20: POC Glucose 141 H 08/31/25 05:11: WBC 17.6 H, RBC 4.88, Hgb 13.1, Hct 41.9, MCV 85.9, MCH 26.8 L, MCHC 31.3 L, RDW Std Deviation 51.8 H, RDW Coeff of Micheal 19.0 H, Plt Count 330, MPV 9.1, Immature Gran % (Auto) 2.900 H, Neut % (Auto) 84.8 H, Lymph % (Auto) 4.8 L, [place] % (Auto) 6.8, Eos % (Auto) 0.1, Baso % (Auto) 0.6, Absolute Neuts (auto) 14.9 H, Absolute Lymphs (auto) 0.85, Nucleated RBC % 0.5, PT 28.0 H, INR 2.6, Sodium 125 L, Potassium 4.6, Chloride 90 L, Carbon Dioxide 13.6 L, Anion Gap 22 H, BUN 83 H, Creatinine 5.95 H, Estim Creat Clear Calc 11.41 L, Est GFR (MDRD) Non-Af 9 L, BUN/Creatinine Ratio 13.9, Glucose 229 H, Calcium 8.4, Total Bilirubin 1.22, Direct Bilirubin 0.85 H, AST 1828 H, ALT 1766 H, Alkaline Phosphatase 478 H, Total Protein 5.8 L, Albumin 3.2 L, Globulin 2.6 08/31/25 10:30: POC Glucose 128 H Micro: Microbiology 08/28/25 18:42 Blood Culture (Wb) - Anticubital Right Blood Culture - Preliminary No growth in 48 hours. 08/28/25 16:53 Blood Culture (Wb) - Anticubital Left Blood Culture - Preliminary No growth in 48 hours. 08/28/25 11:48 Urine, Catheterized Urine Culture - Final Culture exhibits no growth. 08/28/25 11:27 Mucosa - Nose SARS-CoV-2, Influenza & RSV (PCR) - Final Physical Exam Const alert and oriented x3 Constitutional Narrative: remains frail, weak General Appearance: cooperative HEENT normocephalic, head/scalp atraumatic, hearing grossly normal bilaterally and moist oral mucous membranes Eyes PERRL and conjunctivae normal Neck supple Resp Resp Narrative: still has Moderately diminished breath sounds bibasilarly. No wheezes or crackles. on room air Cardio S1 normal heart sound, S2 normal heart sound and no murmurs Cardio Narrative: tachycardic, afib with RVR GI normal to inspection, nondistended, normoactive bowel sounds, soft to palpation, non-tender and non-distended Extremity Extremity Narrative: Left upper extremity edema is improving. Nontender. Bilateral 1+ lower extremity edema. Neuro oriented x3, moves all extremities and no focal motor deficits Sensorium / Orientation: awake and alert Motor Exam: general weakness Psych affect normal Psych Narrative: very frail and weak Assessment & Plan Assessment/Plan (1) ERYN (acute kidney injury): PLAN: Plan #ERYN on CKD * Creatinine has trended up even further today to 6.73 from 5.35 on admission. He is having very minimal urine output. * He is clinically fluid overloaded and chest x-ray did show evidence of bilateral pleural effusions. Blood pressure however still continues to run low. * Discussed with nephrology today and plan is to commence dialysis. General surgery consulted for dialysis catheter insertion. * Patient's INR elevated at over 4 today. Liver enzymes also elevated. He did have CT of the abdomen and pelvis done on 08/27/2025 which showed that the liver was normal as per radiology read. * Gastroenterology consulted on account of the elevated liver enzymes and the elevated INR. IV vitamin K 10 mg x 1 ordered. Per general surgery, do not give the vitamin K today and place temporary dialysis catheter in the OR tomorrow. * Commenced on dialysis yesterday. To have dialysis again today. * #Shock * Possibly cardiogenic though likely multifactorial. Blood pressure down in the 80s and 70s systolic. Patient given boluses of IV fluid but he is making very little urine. * Patient transferred to the ICU out of an abundance of precaution due to concerns that patient may need vasopressor support. PICC line inserted in the ICU. Critical care consulted. * Patient still remains on Levophed. Was on up to 20 mcg of Levophed this morning. * Titrate to maintain MAP of more than 65 * #Probable UTI: * Urinalysis showed elevated nitrites and leukocyte esterase but no bacteria. Urine cultures showed no growth. * On IV ceftriaxone. Blood cultures and urine cultures negative. * #Hyponatremia: * Sodium is 125 today. This is chronic and is likely related to the fluid overload. Should improve as kidney function improves likely with dialysis #Anion gap metabolic acidosis in the setting of ERYN on CKD * Likely due to uremia. Should improve with continued dialysis. * * #Acute exacerbation of heart failure preserved ejection fraction: * BNP is 5779. However this is in light of the ERYN on CKD so this may be due to poor clearance of the BMP and not really due to acute heart failure. * He is on his baseline 2 L of oxygen but does appear clinically fluid overloaded with evidence of bilateral pleural effusions and edema * Diuretics held due to ERYN on CKD. Blood pressure also running low. * Will monitor closely. Commencement of dialysis to help with fluid removal. * Thoracentesis ordered. Patient however now on room air so it may not relieve we need to do thoracentesis as the dialysis will help with this. * #Elevated liver enzymes with supratherapeutic INR * Liver enzymes were elevated though total bilirubin is normal. INR is 2.5 today after receiving the vitamin K. * APTT also markedly elevated. Heparin drip discontinued. * Gastroenterology consulted. Patient given IV vitamin K 10 mg x 1 today. * As stated above CT of the abdomen and pelvis done on 08/27/2025 was read as normal liver. Follow-up with GI evaluation. * AST and ALT as well as ALP of all trended upwards today though total bilirubin is still normal. * Patient's liver enzymes continue to trend upwards. GI on board. Await recs today. * #History of paroxysmal A-fib: On amiodarone and Cardizem as well as metoprolol. Will hold these in light of hypotension. Patient started on amiodarone drip due to A-fib with RVR. #Type 2 diabetes mellitus. Oral meds on hold. Insulin sliding scale. Accu-Cheks ACHS. #Hyperlipidemia: On statin #CAD s/p PCI in 2020: On aspirin and valsartan as well as statin. Metoprolol held. #History of nodular thyroid: Not seen per imaging. Thyroid function was normal. Follow-up on outpatient basis with PCP #History of BPH: Flomax DVT prophylaxis: * Not indicated as INR is 2.6 CODE STATUS: * DNRCCA no intubation Charges/Coding Visit Charges Inpatient E&M: 13325 Subs Hosp L3
--- NOTE | 2025-08-31 15:06 | PCM.PN.REN ---
Subjective Subjective events noted Objective Data Objective Data Vital Signs: Vital Signs Temp Pulse Resp BP Pulse Ox O2 Del Method O2 Flow Rate 96.9 F L 100 22 H 91/68 95 Room Air 2 08/31/25 14:00 08/31/25 14:00 08/31/25 14:00 08/31/25 14:00 08/31/25 14:00 08/31/25 14:00 08/31/25 06:00 Oxygen Flow Rate (L/min) 2 Oxygen Delivery Method Room Air Weight: 112.7 kg Body Mass Index (BMI) 35.6 Intake & Output: Intake and Output for Last 24 Hours 08/29/25 08/30/25 08/31/25 23:59 23:59 23:59 Intake Total 1135.90 / 1196.68 840.64 / 859.44 736.95 / 736.95 Output Total 1700 / 1700 0 / 0 Balance 1130.90 / 1191.68 -859.36 / -840.56 736.95 / 736.95 Lab / Micro Data 08/31/25 05:11 08/31/25 05:11 Labs: Laboratory Results - last 24 hr 08/30/25 17:17: POC Glucose 134 H 08/30/25 20:20: POC Glucose 141 H 08/31/25 05:11: WBC 17.6 H, RBC 4.88, Hgb 13.1, Hct 41.9, MCV 85.9, MCH 26.8 L, MCHC 31.3 L, RDW Std Deviation 51.8 H, RDW Coeff of Micheal 19.0 H, Plt Count 330, MPV 9.1, Immature Gran % (Auto) 2.900 H, Neut % (Auto) 84.8 H, Lymph % (Auto) 4.8 L, [place] % (Auto) 6.8, Eos % (Auto) 0.1, Baso % (Auto) 0.6, Absolute Neuts (auto) 14.9 H, Absolute Lymphs (auto) 0.85, Nucleated RBC % 0.5, PT 28.0 H, INR 2.6, Sodium 125 L, Potassium 4.6, Chloride 90 L, Carbon Dioxide 13.6 L, Anion Gap 22 H, BUN 83 H, Creatinine 5.95 H, Estim Creat Clear Calc 11.41 L, Est GFR (MDRD) Non-Af 9 L, BUN/Creatinine Ratio 13.9, Glucose 229 H, Calcium 8.4, Total Bilirubin 1.22, Direct Bilirubin 0.85 H, AST 1828 H, ALT 1766 H, Alkaline Phosphatase 478 H, Total Protein 5.8 L, Albumin 3.2 L, Globulin 2.6 08/31/25 10:30: POC Glucose 128 H Micro: Microbiology 08/28/25 18:42 Blood Culture (Wb) - Anticubital Right Blood Culture - Preliminary No growth in 48 hours. 08/28/25 16:53 Blood Culture (Wb) - Anticubital Left Blood Culture - Preliminary No growth in 48 hours. 08/28/25 11:48 Urine, Catheterized Urine Culture - Final Culture exhibits no growth. 08/28/25 11:27 Mucosa - Nose SARS-CoV-2, Influenza & RSV (PCR) - Final Physical Exam Narrative Alert awake oriented x 3 no obvious distress no JVD s1s2 no murmurs lungs clear abdomen soft +++ edema no cyanosis vargas + Non-tunneled temporary hemodialysis catheter right IJ access for dialysis Assessment & Plan Assessment/Plan (1) ERYN (acute kidney injury): PLAN: Prior to this last admission in July, his baseline creatinine was normal less than 1. During recent hospital admission, he was diuresed with IV Lasix. Creatinine slowly increased to around 1.3-1.5 range. Discharge creatinine was around 1.5, to be expected from diuresis and other ongoing events. Sudden increase in creatinine over the weekend, worsening. He is essentially anuric. No contrast studies. Medications oro, he was continued on appropriate CHF therapy. He did receive some IV fluids without much response. No hydronephrosis on imaging studies. Only difference that I could see was the drop in blood pressure compared to previous admission. He does not look septic, WBC count is only slightly elevated. Blood cultures are pending. At this time infection suspicion is low as per my discussion with hospitalist. Presumably this is decompensated heart failure/cardiorenal syndrome. To rule out autoimmune pathology, will send serologies. If no identifiable etiology, we may need to do a kidney biopsy - 08/30/2025; SCr up to 6.73 today, BUN 105. Patient essentially anuric. Temporary HD catheter placed today and patient undergoing iHD over 3hr, 2kbath and attempting ~2L fluid removal as patient and bp tolerates. Patient on IV Levophed and can titrate if needed for better systolic blood pressure for fluid removal. History of A-fib, oral meds on hold, being started on amiodarone drip. Will plan for dialysis again tomorrow with fluid removal as patient/blood pressure tolerates. Renal serologies pending. Discussed nephrology plan with patient, questions answered. Assessment and plan reviewed with Dr. Guerra. 08/31/2025. BUN and creatinine are better somewhat however he is on Levophed. Up to 15 mcg today. Breathing looks comfortable. Appears edematous overall. Do not think he will tolerate regular hemodialysis. Will switch him to CRRT with net fluid removal rate of 100 cc/h. Discussed with ICU attending. Discussed with ICU staff.
[2025-08-31 15:08] LABS: Anti-dsDNA Ab <1 IU/mL (0-9)
[2025-08-31 19:27] LABS: Albumin, Serum 3.1 g/dL (3.4-4.8); Anion Gap 20 (5-15); BUN 60 mg/dL (4-19); BUN/Creat Ratio 14.3 RATIO (10-20); Calcium,Total 8.0 mg/dL (7.6-11.0); Carbon Dioxide 14.5 mmol/L (21.0-32.0); Chloride 98 mmol/L (98-108); Estimated Creatinine Clearance 16.05 ml/min (50-250); Glucose 113 mg/dL (70-99); Potassium 4.5 mmol/L (3.3-5.1)
[2025-08-31] MEDS: Norepinephrine 8 MG in 0.9% Normal Saline (250mL Bag) 242 ML 46.9 MG CONT INF (20:10)
[2025-08-31] MEDS: Vasopressin 20 UNITS in 0.9% Normal Saline (50mL Bag) 24 ML 3 UNITS CONT INF (23:10)
[2025-09-01] VITALS (8 sets, daily range): BP systolic 53–107; BP diastolic 20–77; PULSE 86–117; RESP 18–20
[2025-09-01] MEDS: Norepinephrine 8 MG in 0.9% Normal Saline (250mL Bag) 242 ML 56.3 MG CONT INF (01:05)
[2025-09-01 01:07] LABS: Albumin, Serum 3.3 g/dL (3.4-4.8); Anion Gap 23 (5-15); BUN 53 mg/dL (4-19); BUN/Creat Ratio 14.0 RATIO (10-20); Calcium,Total 8.8 mg/dL (7.6-11.0); Carbon Dioxide 13.7 mmol/L (21.0-32.0); Chloride 97 mmol/L (98-108); Estimated Creatinine Clearance 18.06 ml/min (50-250); Glucose 127 mg/dL (70-99); Potassium 5.0 mmol/L (3.3-5.1)
[2025-09-01] MEDS: fentaNYL 100 MCG/2 ML Ampul 25 MCG IV (02:13)
--- NOTE | 2025-09-01 02:28 | EKG12_ITS ---
Test Reason : AFIB Blood Pressure : */* mmHG Vent. Rate : 81 BPM Atrial Rate : * BPM P-R Int : * ms QRS Dur : 82 ms QT Int : 388 ms P-R-T Axes : * 12 187 degrees QTcB Int : 450 ms Atrial fibrillation Low voltage QRS Nonspecific ST and T wave abnormality Abnormal ECG When compared with ECG of 28-Aug-2025 10:50, No significant change was found Confirmed by EDWIN MATHEWS, JERSEY ([id number]), publications editor MALIK JAIME ([id number]) on 09/03/2025 8:46:24 AM Referred By: BRENT Confirmed By: JERSEY PINEDA MD
--- NOTE | 2025-09-01 02:28 | PCM.HOSP.N ---
Hospitalist Note Patient with onset dyspnea in addition to sensation of heart pounding/palpitations with difficulty obtaining pulse oximeter accurate read at this time. Will obtain ABG, CXR and EKG.
[2025-09-01] MEDS: 0.9% Saline Lock 10 ML Syringe IV (02:49)
[2025-09-01] MEDS: PUREFLOW B SOLUTION 4K 5,000 ML BAG 9 BAG PF (02:50)
[2025-09-01] MEDS: Vasopressin 20 UNITS in 0.9% Normal Saline (50mL Bag) 24 ML 3 UNITS CONT INF (02:54)
--- NOTE | 2025-09-01 03:00 | RAD_ITS ---
PROCEDURE: CHEST 1 VIEW (PORTABLE) 09/01/2025 REASON FOR EXAM: DYSPNEA TECHNIQUE: Frontal view of the chest. COMPARISON: 08/30/2025. FINDINGS: Left PICC line is in good position with its tip in the superior vena cava. Right internal jugular central catheter is in good position with its tip at the atriocaval junction. Mild increase in bilateral pleural effusions. Mild increase in passive atelectatic airspace disease of the lower lobes. Mild increase in central pulmonary venous congestion. Enlarged cardiac silhouette. Normal mediastinum and alejandro. Normal visualized pulmonary arteries. Atheromatous plaques of the visualized aortic arch and descending thoracic aorta. Diffuse spondylosis of the visualized thoracic spine. Normal visualized ribs, clavicles. Degenerative joint disease. There is no demonstrated abnormality of the visualized soft tissue structures of the upper abdomen. RAD/Chest 1 View (Portable) IMPRESSION: Left PICC line is in good position with its tip in the superior vena cava. Right internal jugular central catheter is in good position with its tip at the atriocaval junction. Mild increase in bilateral pleural effusions. Mild increase in passive atelectatic airspace disease of the lower lobes. Mild increase in central pulmonary venous congestion. Enlarged cardiac silhouette. [facility]
[2025-09-01] MEDS: Epinephrine (1 mg/ml) 1 MG in 0.9% Normal Saline (250mL Bag) 250 ML 169.7 MG CONT INF (03:43)
[2025-09-01] MEDS: Sodium Bicarbonate 8.4% 50 ML Syringe 50 MEQ IV (03:49)
--- NOTE | 2025-09-01 04:54 | PN.HOSP_ITS ---
Hospitalist Note Patient passed 09/01/25 @ 0442
--- NOTE | 2025-09-01 04:54 | PCM.HOSP.N ---
Hospitalist Note Patient passed 09/01/25 @ 0449
--- NOTE | 2025-09-01 07:12 | DS.PCM_ITS ---
Providers Date of Admission: 08/28/25 Primary Care Physician: Dr. Jayesh Raphael Jr., MD Consultations 08/28/25 14:44 Consult: Nephrology Routine Consulting Provider: Rob Guerra Reason for Consult: ERYN on CKD EMERGENT Consult: No Notified: Yes Date Notified: 08/28/25 Time Notified: 14:49 Method of Notification: Text 08/29/25 10:55 Consult: Gastroenterology Routine Consulting Provider: [facility] Reason for Consult: elevated liver enzymes, possible cirrhosis EMERGENT Consult: No Notified: Yes Date Notified: 08/29/25 Time Notified: 10:59 Method of Notification: Text 08/29/25 11:08 Consult: Programming Specialist / Pulmonary Medicine Routine Consulting Provider: Intensivists/Pulmonary Med Reason for Consult: hypotension, ERYN on CKD EMERGENT Consult: No Notified: Yes Date Notified: 08/29/25 Time Notified: 11:08 Method of Notification: Verbal Reason For Visit: ERYN ON CKD, FLUID OVERLOAD Diagnosis Discharge Diagnosis (1) ERYN (acute kidney injury): Status: Acute Code(s): N17.9 - Acute kidney failure, unspecified Plan #ERYN on CKD * Creatinine has trended up even further today to 6.73 from 5.35 on admission. He is having very minimal urine output. * He is clinically fluid overloaded and chest x-ray did show evidence of bilateral pleural effusions. Blood pressure however still continues to run low. * Discussed with nephrology today and plan is to commence dialysis. General surgery consulted for dialysis catheter insertion. * Patient's INR elevated at over 4 today. Liver enzymes also elevated. He did have CT of the abdomen and pelvis done on 08/27/2025 which showed that the liver was normal as per radiology read. * Gastroenterology consulted on account of the elevated liver enzymes and the elevated INR. IV vitamin K 10 mg x 1 ordered. Per general surgery, do not give the vitamin K today and place temporary dialysis catheter in the OR tomorrow. * Commenced on dialysis yesterday. To have dialysis again today. * #Shock * Possibly cardiogenic though likely multifactorial. Blood pressure down in the 80s and 70s systolic. Patient given boluses of IV fluid but he is making very little urine. * Patient transferred to the ICU out of an abundance of precaution due to concerns that patient may need vasopressor support. PICC line inserted in the ICU. Critical care consulted. * Patient still remains on Levophed. Was on up to 20 mcg of Levophed this morning. * Titrate to maintain MAP of more than 65 * #Probable UTI: * Urinalysis showed elevated nitrites and leukocyte esterase but no bacteria. Urine cultures showed no growth. * On IV ceftriaxone. Blood cultures and urine cultures negative. * #Hyponatremia: * Sodium is 125 today. This is chronic and is likely related to the fluid overload. Should improve as kidney function improves likely with dialysis #Anion gap metabolic acidosis in the setting of ERYN on CKD * Likely due to uremia. Should improve with continued dialysis. * * #Acute exacerbation of heart failure preserved ejection fraction: * BNP is 5779. However this is in light of the ERYN on CKD so this may be due to poor clearance of the BMP and not really due to acute heart failure. * He is on his baseline 2 L of oxygen but does appear clinically fluid overloaded with evidence of bilateral pleural effusions and edema * Diuretics held due to ERYN on CKD. Blood pressure also running low. * Will monitor closely. Commencement of dialysis to help with fluid removal. * Thoracentesis ordered. Patient however now on room air so it may not relieve we need to do thoracentesis as the dialysis will help with this. * #Elevated liver enzymes with supratherapeutic INR * Liver enzymes were elevated though total bilirubin is normal. INR is 2.5 today after receiving the vitamin K. * APTT also markedly elevated. Heparin drip discontinued. * Gastroenterology consulted. Patient given IV vitamin K 10 mg x 1 today. * As stated above CT of the abdomen and pelvis done on 08/27/2025 was read as normal liver. Follow-up with GI evaluation. * AST and ALT as well as ALP of all trended upwards today though total bilirubin is still normal. * Patient's liver enzymes continue to trend upwards. GI on board. Await recs today. * #History of paroxysmal A-fib: On amiodarone and Cardizem as well as metoprolol. Will hold these in light of hypotension. Patient started on amiodarone drip due to A-fib with RVR. #Type 2 diabetes mellitus. Oral meds on hold. Insulin sliding scale. Accu-Cheks ACHS. #Hyperlipidemia: On statin #CAD s/p PCI in 2020: On aspirin and valsartan as well as statin. Metoprolol held. #History of nodular thyroid: Not seen per imaging. Thyroid function was normal. Follow-up on outpatient basis with PCP #History of BPH: Flomax DVT prophylaxis: * Not indicated as INR is 2.6 CODE STATUS: * DNRCCA no intubation Medications at Discharge Home Medications aspirin 81 mg tablet,delayed release 81 mg PO DAILY@0800 heart health 03/18/21 cholecalciferol (vitamin D3) 50 mcg (2,000 unit) capsule 4,000 unit PO DAILY SUPPLEMENT 03/18/21 vit C 250 mg-vit E 90 mg-zinc 40 mg-copper 1 lp-[id number]-iluzba capsule 1 cap PO BID EYE HEALTH 03/18/21 atorvastatin 40 mg tablet 40 mg PO QHS cholesterol #90 tabs 04/11/21 isosorbide mononitrate 30 mg tablet,extended release 24 hr 30 mg PO DAILY BP #90 tabs 04/11/21 vitamin E mixed 400 unit capsule 400 unit PO DAILY supplement 02/16/22 montelukast 10 mg tablet 10 mg PO QHS breathing 10/19/23 valsartan 320 mg tablet 320 mg PO DAILY BP 10/19/23 tamsulosin 0.4 mg capsule 0.4 mg PO BID BPH 12/26/24 famotidine 20 mg tablet 20 mg PO DAILY GERD #90 tabs 01/15/25 dulaglutide 3 mg/0.5 mL subcutaneous pen injector (Trulicity) 3 mg (0.5 mL) subcut QWEEK SOB #2 mL 06/28/25 metformin 500 mg tablet,extended release 24 hr 500 mg PO DAILY Blood Glucose 06/28/25 apixaban 5 mg tablet (Eliquis) 5 mg PO BID Blood thinner #180 tabs 07/12/25 amiodarone 200 mg tablet 200 mg PO DAILY BP #30 tabs 08/02/25 metoprolol succinate 50 mg tablet,extended release 24 hr 50 mg PO DAILY BP #90 tabs 08/02/25 diltiazem HCl 120 mg capsule,extended release 24 hr 120 mg PO QHS BP 08/17/25 furosemide 40 mg tablet (Lasix) 40 mg PO DAILY Fluid retention #30 tabs 08/23/25 Weight / BMI Weight Weight: 248 lb 7.375 oz Body Mass Index (BMI) 35.6 ABG / Lab / Microbiology Data 08/31/25 05:11 09/01/25 00:10 Laboratory: Laboratory Results - last 24 hr 08/29/25 14:40: Double Strand DNA Ab <1 08/31/25 10:30: POC Glucose 128 H 08/31/25 18:50: Sodium 132 L, Potassium 4.5, Chloride 98, Carbon Dioxide 14.5 L, Anion Gap 20 H, BUN 60 H, Creatinine 4.23 H, Estim Creat Clear Calc 16.05 L, Est GFR (MDRD) Non-Af 13 L, BUN/Creatinine Ratio 14.3, Glucose 113 H, Calcium 8.0, P hosphorus 5.6 H, Albumin 3.1 L 08/31/25 22:05: POC Glucose 78 09/01/25 00:10: Sodium 133, Potassium 5.0, Chloride 97 L, Carbon Dioxide 13.7 L, Anion Gap 23 H, BUN 53 H, Creatinine 3.76 H, Estim Creat Clear Calc 18.06 L, Est GFR (MDRD) Non-Af 15 L, BUN/Creatinine Ratio 14.0, Glucose 127 H, Calcium 8.8, P hosphorus 5.9 H, Albumin 3.3 L 09/01/25 03:47: POC Glucose 98 Microbiology: Microbiology 08/28/25 18:42 Blood Culture (Wb) - Anticubital Right Blood Culture - Preliminary No growth in 48 hours. 08/28/25 16:53 Blood Culture (Wb) - Anticubital Left Blood Culture - Preliminary No growth in 48 hours. 08/28/25 11:48 Urine, Catheterized Urine Culture - Final Culture exhibits no growth. 08/28/25 11:27 Mucosa - Nose SARS-CoV-2, Influenza & RSV (PCR) - Final Radiography Diagnostic Testing: Radiology Impression Chest X-Ray 09/01/25 03:00 IMPRESSION: Left PICC line is in good position with its tip in the superior vena cava. Right internal jugular central catheter is in good position with its tip at the atriocaval junction. Mild increase in bilateral pleural effusions. Mild increase in passive atelectatic airspace disease of the lower lobes. Mild increase in central pulmonary venous congestion. Enlarged cardiac silhouette. [facility] Dis[facility] Plan Admission Admit Date/Time: 08/28/25 13:39 Attending Provider: Adelia Rosenberg Primary Care Provider: Jayesh Raphael Jr. Consulting Providers: Ariel Saleh; Vernon Prado; Linda Rashid; Gracia Hillman; Patricia Garnett; Cipriano Koehler; Benjamín Keane; William Hameed; Gautam Barnes; Emigdio Hinton; Madan Juarez; Jose Kapoor; Miri Angelo; Jhonny Guzman; Kevin Byrne; Dennis Roblero; Keri Garcia; Dalila Berg; Luma Peraza; Marquis Liao; Que Ventura; Elijah Hill; Shreyas Horvath; Celia Montez; Mike Schroeder; [place]; Elvis Loza; Roxie Hickey; Arpit Duffy; Rob Guerra Discharge Orders/Prescriptions Prescriptions: No Action atorvastatin 40 mg tablet 40 mg PO QHS Qty: 90 3RF isosorbide mononitrate 30 mg tablet extended release 24 hr 30 mg PO DAILY Qty: 90 3RF vitamin E mixed 400 unit capsule 400 unit PO DAILY valsartan 320 mg tablet 320 mg PO DAILY metformin 500 mg tablet extended release 24 hr 500 mg PO DAILY montelukast 10 mg tablet 10 mg PO QHS Patient Comments: Take 1 tablet by mouthcdaily at bedtime. tamsulosin 0.4 mg capsule 0.4 mg PO BID famotidine 20 mg tablet 20 mg PO DAILY Qty: 90 2RF amiodarone 200 mg tablet 200 mg PO DAILY Qty: 30 12RF metoprolol succinate 50 mg tablet extended release 24 hr 50 mg PO DAILY Qty: 90 3RF aspirin 81 MG tablet 81 mg PO DAILY@0800 cholecalciferol (vitamin D3) 2,000 UNIT capsule 4,000 unit PO DAILY vit C,J-Uu-drnop-lutein-zeaxan 1 EACH capsule 1 cap PO BID diltiazem HCl 120 mg capsule,extended release 24hr 120 mg PO QHS furosemide [Lasix] 40 mg tablet 40 mg PO DAILY Qty: 30 0RF Trulicity 3 mg/0.5 mL pen injector 3 mg subcut QWEEK Qty: 2 5RF Eliquis 5 mg tablet 5 mg PO BID Qty: 180 3RF Referrals / Follow Up: Jayesh Raphael Jr., MD [Primary Care Provider, Internal Medicine]
--- NOTE | 2025-09-01 07:15 | EXP.PCM_ITS ---
Preliminary Cause of Preliminary Cause of Preliminary Cause of : acute cardiac arrest due to acute hypoxic respiratory failure and multifactorial shock, ERYN Date of Admission: 08/28/25 Date of : 09/02/25 Principle Diagnosis Problem List: Active and Suspected Problems (Updated 08/31/25 @ 00:01 by Background Daemon) Fatty liver disease, nonalcoholic (Acute) Hepatopathy (Acute) ERYN (acute kidney injury) (Acute) Acute heart failure with preserved ejection fraction (HFpEF) (Acute) Hospital Course RAYA MCNAIR, is a 85 M who presents via the ED on 08/28/2025 with a complaint of shortness of breath. HE was admitted from the TCU for ERYN and shortness of breath where he started feeling short of breath today. His kidney function had also started trending downwards. Nephrology was consulted to see him yesterday when his creatinine was over 4 with a baseline of around 1.7 when he was d ischarged recently. Nephrology reviewed him and did not think that he needed dialysis. Today labs were repeated and there was concern that patient may be needing dialysis so he was sent to the ED. His creatinine had gone up to over 5. He admits to shortness of breath though he remains on his baseline 2 L of oxygen. He denies any chest pain or palpitations, dizziness, nausea or vomiting or any other symptoms. He admitted to swelling in his left upper extremity though he had had a duplex done in the TCU and it was negative. Vitals in the ED were temp of 97.2F, BP of 104/68, RR of 22 and he was saturating at 96% on 2L of oxygen. CBC showed hemoglobin of 13.4 with WBC of 13.6 and platelets of 430. Chemistry showed sodium of 131 with bicarb of 16.7 and creatinine of 5.35. Anion gap was 22. Total bilirubin was 1.01 and AST/ALT?ALP was 166/241/374. Pro BNP was 5779. Urinalysis showed no positive nitrites but no wbcs. CXR showed interstitial edema and bilateral pleural effusions and bibasilar atelectasis. He was admitted to be managed for ERYN on CKD with fluid overload. Nephrology was consulted. Patient had a protracted hospital course. His kidney function No worsening. He had right upper extremity swelling and duplex done was negative for any evidence of DVT. Decision was made to transfer patient to the ICU due to persistent hypotension as there was concern he would require vasopressors. Hospital course was also complicated by hyperkalemia. General surgery was consulted for dialysis catheter insertion. Due to patient's low platelets and elevated liver enzymes, general surgery wanted gastroenterology to be consulted. Patient's INR was also supratherapeutic. He was given IV vitamin K 10 mg x 1. Critical care was also consulted. He eventually had the dialysis catheter inserted on 08/30/2025 and he was commenced on dialysis. His hypotension did worsen and he was treated for multifactorial shock. He required vasopressors. He could not be weaned off of the vasopressors and required increasing amounts of the vasopressors. There were plans to transition him to CRRT due to his hemodynamic instability. He was also treated for UTI due to elevated nitrites per urinalysis. Blood cultures and urine cultures were negative. He was placed on IV ceftriaxone. He also had anion gap metabolic acidosis which was thought to be due to the ERYN on CKD and resultant uremia. He had to be started on amiodarone drip also due to A-fib with RVR. In the early hours of 09/01/2025, patient developed onset of dyspnea in addition to palpitations. ABG could not be done despite several attempts. Patient's shock worsened and he had to be initiated on a second and then a third vasopressor. Patient's condition continued to worsen and the boring machine operator double end called the family and due to concerns about patient's progressive decline and very poor prognosis. Family came in and patient was transition to comfort care. Patient at 4:46 AM on 09/01/2025. Cause of is acute cardiopulmonary arrest due to multifactorial shock in the setting of acute hypoxic respiratory failure and ERYN on CKD requiring dialysis. Visit Charges Inpatient E&M: 56100 Disch Hosp
--- NOTE | 2025-09-03 08:58 | CASEMGMT ---
[facility] and requested [facility] to be canceled.
[2025-09-03 19:08] LABS: Cytoplasmic Ab (C-ANCA) <1:20 titer (Neg:<1:20); PROEL- A/G Ratio 1.0 (0.7-1.7); PROEL- Albumin 2.9 g/dL (2.9-4.4); PROEL- Alpha-1 Globulin 0.3 g/dL (0.0-0.4); PROEL- Alpha-2 Globulin 0.9 g/dL (0.4-1.0); PROEL- Beta Globulin 0.7 g/dL (0.7-1.3); PROEL- Gamma Globulin 1.0 g/dL (0.4-1.8); PROEL- Globulin, Total 2.8 g/dL (2.2-3.9); PROEL- TOTAL PROTEIN 5.7 g/dL (6.0-8.5); PROEL-M-Spike Not Observed g/dL (Not Observed); Perinuclear Ab (P-ANCA) <1:20 titer (Neg:<1:20)
== END 2025-09-01 08:15 | DRG 682 ==
LOC: ED 13:53 → PCU 14:00 → ICU 08-29 11:55
PROVIDERS: Internal Medicine Nephrology; Surgery; Admitting Provider Student in an Organized Health Care Education/Training Program; Emergency Provider Surgery; PCP Emergency Medicine; Visit Provider Student in an Organized Health Care Education/Training Program
PROC: 02HV33Z Insertion of Infusion Device into Superior Vena Cava, Percutaneous Approach (ICD-10-PCS; principal; 2025-08-30 13:45)
DX: N17.9 Acute kidney failure, unspecified (principal); K72.00 Acute and subacute hepatic failure without coma; J96.21 Acute and chronic respiratory failure with hypoxia; I50.33 Acute on chronic diastolic (congestive) heart failure; I31.39 Other pericardial effusion (noninflammatory); I13.0 Hypertensive heart and chronic kidney disease with heart failure and stage 1 through stage 4 chronic kidney disease, or unspecified chronic kidney disease; R18.8 Other ascites; D68.9 Coagulation defect, unspecified; E87.1 Hypo-osmolality and hyponatremia; E87.20 Acidosis, unspecified; N39.0 Urinary tract infection, site not specified; R57.0 Cardiogenic shock; Z51.5 Encounter for palliative care; Z66 Do not resuscitate; E11.22 Type 2 diabetes mellitus with diabetic chronic kidney disease; K76.0 Fatty (change of) liver, not elsewhere classified; Z99.2 Dependence on renal dialysis; N18.30 Chronic kidney disease, stage 3 unspecified; I48.91 Unspecified atrial fibrillation; E27.8 Other specified disorders of adrenal gland; I25.10 Atherosclerotic heart disease of native coronary artery without angina pectoris; E78.5 Hyperlipidemia, unspecified; E87.5 Hyperkalemia; K74.00 Hepatic fibrosis, unspecified; I46.9 Cardiac arrest, cause unspecified; Z95.5 Presence of coronary angioplasty implant and graft; Z79.84 Long term (current) use of oral hypoglycemic drugs; Z79.85 Long-term (current) use of injectable non-insulin antidiabetic drugs; Z87.891 Personal history of nicotine dependence; Z79.01 Long term (current) use of anticoagulants; N28.1 Cyst of kidney, acquired; R03.1 Nonspecific low blood-pressure reading; Z90.49 Acquired absence of other specified parts of digestive tract; N40.0 Benign prostatic hyperplasia without lower urinary tract symptoms; Z03.89 Encounter for observation for other suspected diseases and conditions ruled out
CPT/HCPCS: 36415; 36569; 71045; 71046; 74176; 80048; 80053; 80069; 80076; 81001; 82962; 83520; 83880; 84165; 84484; 85025; 85610; 85730; 86037; 86160; 86225; 86850; 86900; 86901; 87040; 87086; 87340; 87631; 90937; 90947; 93005; 93308; 93971; 94762; 97802; 99284; A4216; C1752; G0257; J2405

== ENCOUNTER 2025-08-30 08:32 | Outpatient (RCR) | payer SELFPAY ==
[2021-07-11 09:10] VITALS: BMI 34.9
== END 2025-09-01 23:59 ==
LOC: CR 08:32
PROVIDERS: PCP Emergency Medicine; Referring Provider Internal Medicine Cardiovascular Disease; Visit Provider Internal Medicine Cardiovascular Disease
DX: Z00.00 Encounter for general adult medical examination without abnormal findings (principal)